=== PATIENT | female | born 1955 | race Caucasian/White ===

== ENCOUNTER 2022-05-04 10:06 | Outpatient (CLI) | payer BC, SELFPAY ==
--- OUTSIDE RECORDS SUMMARY | 2022-05-04 10:18 | XMS_ITS | Encounter Summary ---
:[address] [facility] Address [address] [place] [id number] Care Team Providers Name Role Phone Elsewhere, Pcp Primary Care Provider Unavailable Reason for Referral Outpatient (Routine) - Closed Specialty Diagnoses / Procedures Referred By Contact Refer red To Contact Diagnoses Hoarseness Rst Ent [facility] Procedures ENT Speech therapy [address] [place] [phone] Referral ID Status Reason Start Date Expiration Date Visits Requ ested Visits Authorized [id number] Closed 01/25/2022 01/25/2023 1 1 Reason for Visit Speech Pathology (Routine) - Closed Specialty Diagnoses / Procedures Referred By Contact Refer red To Contact Diagnoses Hoarseness Ashanti Hendricks M.D. [facility] Procedures NEWSPAPER PHOTOGRAPHER Voice evaluation [address] [place] [phone] Referral ID Status Reason Start Date Expiration Date Visits Requ ested Visits Authorized [id number] Closed 12/14/2021 12/14/2022 1 1 Encounter Details Date Type Department Care Team Description 01/25/2022 Comprehensive Visit Department of Shima Macias Otorhinolaryngology mary lou Del Real, Ph.D. [place], [place] [address] [facility] [address] [place] [phone] Social History Tobacco Use Types Packs/Day Years Used Date Smoking Tobacco: Never Smokeless Tobacco: Never Alcohol Use Standard Drinks/Week Comments Yes 0 (1 standard drink = 0.6 oz pure alcoho l) 2 to 3 drinks per month Alcohol Habits Answer Date Recorded How often do you have a drink containing Monthly or less 09/17/2021 alcohol? How many drinks containing alcohol do you have 1 or 2 09/17/2021 on a typical day when you are drinking? How often do you have six or more drinks on one Never 09/17/2021 occasion? Comment: 2 to 3 drinks per month 09/20/2021 Social Isolation Answer Date Recorded In a typical week, how many times do you Twice a week 09/17/2021 talk on the phone with family, friends, or neighbors? How often do you get together with friends Once a week 09/17/2021 or relatives? How often do you attend holiness or congregational More than 4 time s per year 09/17/2021 services? Do you belong to any clubs or organizations Yes 09/17/2021 such as holiness groups, unions, fraternal or athletic groups, or school groups? How often do you attend meetings of the More than 4 times pe r year 09/17/2021 clubs or organizations you belong to? Are you now , , , 09/17/2021 , never or living with a partner? Physical Activity Answer Date Recorded On average, how many days per week do you engage in moderate to 5 days 09/17/2021 strenuous exercise (like walking fast, running, jogging, dancing, swimming, biking, or other activities that cause a light or heavy sweat)? On average, how many minutes do you engage in exercise at th is 20 min 09/17/2021 level? Stress Answer Date Recorded Do you feel stress - tense, restless, nervous, or To some ex tent 09/17/2021 anxious, or unable to sleep at night because your mind is troubled all the time - these days? Intimate Partner Violence Answer Date Recorded Within the last year, have you been afraid of your partner o r No 09/17/2021 ex-partner? Within the last year, have you been humiliated or emotionall y No 09/17/2021 abused in other ways by your partner or ex-partner? Within the last year, have you been kicked, hit, slapped, or No 09/17/2021 otherwise physically hurt by your partner or ex-partner? Within the last year, have you been raped or forced to have any No 09/17/2021 kind of sexual activity by your partner or ex-partner? Food Insecurity Answer Date Recorded Within the past 12 months, you worried that your food would Never true 09/17/2021 run out before you got money to buy more. Within the past 12 months, the food you bought just didn't N ever true 09/17/2021 last and you didn't have money to get more. Transportation Needs Answer Date Recorded In the past 12 months, has lack of transportation kept you f rom No 09/17/2021 medical appointments or from getting medications? In the past 12 months, has lack of transportation kept you f rom No 09/17/2021 meetings, work, or getting things needed for daily living? Housing Stability Answer Date Recorded In the last 12 months, was there a time when you were not ab le No 09/17/2021 to pay the mortgage or rent on time? In the last 12 months, how many places have you lived? 1 09/17/2021 In the last 12 months, was there a time when you did not hav e a No 09/17/[address] or slept in a alf (including now)? Education Answer Date Recorded What is the highest level of school Bachelor's degree (e.g., BA, AB, 09/17/2021 you have completed or the highest BS) degree you have received? Sex Assigned at Date Recorded Female 05/11/2021 12:39 PM CDT documented as of this encounter Consult Notes Shima Macias, Ph.D. - 01/25/2022 1:30 PM CDT DATE OF VISIT: 01/25/22 Referring provider: Ashanti Hendricks M.D. REASON FOR VISIT: Voice Evacuation HISTORY OF PRESENT ILLNESS Colleen Tolentino is a 66 y.o. 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 She saw Dr. Hendricks earlier today and is seeing me for behavioral intervention. She is approximately 3 months post surgery. Her speaking voice is lower and she does have some hoarseness with speaking but if her singing voice that she is grieving the most. 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 PHYSICAL EXAMINATION I. Phonation: Phonatory quality during connected speech is rough hoarse +2 with strained +2. On palpation patient does have some narrowing but minimal tenderness in the thyrohyoid space. She is able tophonate from C3 (130 Hz) to G3 (195 Hz) which is significantly limited and lower than her pre surgical voice. II. Patient Self-Assessment: Please see flow sheets for answers to questionnaires III. Stimulability: She is able to do some half steps up to 207 Hz but not beyond that at this time. IMPRESSION, REPORT, PLAN Colleen Tolentino has a dysphonia consistent with bilateral superior laryngeal nerve injury. We had started her on using humming going from her highest half step to a little bit higher and nudging that trying to repeat that for couple of minutes 3-4 times per day. Will do a recheck in 3 months she agreed to let me know if things start to open up a little bit in terms of pitch. It is probably too soon to know if this injury is permanent and hopefully she will regain some function. DIAGNOSIS #1 Dysphonia, superior laryngeal nerve injury PATIENT EDUCATION Ready to learn, no apparent learning barriers identified; learning preferences include listening. Diagnosis and treatment plan explained; opportunity to ask questions given; patient expressed understanding of content. This note was partially constructed using M*Modal Fluency Direct speech recognition medical dictation system. All attempts have been made to review for accuracy; although, some nonsensical information may persist despite proofreading. documented in this encounter Plan of Treatment Not on filedocumented as of this encounter Visit Diagnoses Diagnosis Hoarseness documented in this encounter Care Teams Electrical Maintenance Technician Relationship Specialty Start Date End Date Elsewhere, Pcp PCP - General Internal Medicine 10/03/21 documented as of this encounter
--- OUTSIDE RECORDS SUMMARY | 2022-05-04 10:18 | XMS_ITS | Encounter Summary ---
:1955 Author Organization [facility] Address [address] [place] [address] Care Team Providers Name Role Phone Elsewhere, Pcp Primary Care Provider Unavailable Reason for Referral Outpatient (Routine) - Authorized Specialty Diagnoses / Procedures Referred By Contact Refer red To Contact Diagnoses Hoarseness Rst Ent [facility] Procedures ENT Speech therapy [address] [place] [phone] Referral ID Status Reason Start Date Expiration Date Visits V isits Requested Authorized [id number] Authorized 05/03/2022 05/03/2023 1 1 Reason for Visit Outpatient (Routine) - Closed Specialty Diagnoses / Procedures Referred By Contact Refer red To Contact Diagnoses Hoarseness Rst Ent [facility] Procedures ENT Speech therapy [address] [place] [phone] Referral ID Status Reason Start Date Expiration Date Visits Requ ested Visits Authorized [id number] Closed 01/25/2022 01/25/2023 1 1 Encounter Details Date Type Department Care Team Description 05/03/2022 Clinical Support Department of Shima Macias Otorhinolaryngology mary lou Del Real, Ph.D. [place], [place] [address] [facility] [address] [place] [phone] Social History Tobacco Use Types Packs/Day Years [...] or relatives? How often do you attend mandaen or taoist More than 4 time s per year 09/17/2021 services? Do you belong to any clubs or organizations Yes 09/17/2021 such as mandaen groups, unions, fraternal or athletic groups, or [...] place to sleep or slept in a [facility] (including now)? Education Answer Date Recorded What is the highest level of school Bachelor's degree (e.g., BA, AB, 09/17/2021 you have completed or the highest BS) degree you have received? Sex Assigned at Date Recorded Female 05/11/2021 12:39 PM CDT documented as of this encounter Consult Notes Shima Macias, Ph.D. - 05/03/2022 9:30 AM CDT DATE OF VISIT: 05/03/22 Referring provider: No ref. provider found SUBJECTIVE Colleen Yani Dejon Tolentino returns today for 1 session of skilled intervention. She is been able toget to Bb above middle C on a couple of occasions. She struggles with confidence with her voice and continues to be rough hoarse. The exercises are helpful in clearing up voice a bit. She did take a little bit of time off due to the frustration of the problem but is feeling better and more hopeful. OBJECTIVE Phonatory quality is initially rough hoarse 2/3. Did the exercises on half steps moving up the scalestarting it G below middle C. When we added head and neck anchoring we were able to help her vocalize up to a B natural and voice was more stable. This was very exciting. We also explored the range going downward to an Eb below middle C. Assessment Continued evidence of superior laryngeal nerve weakness following thyroidectomy. She is getting someimprovement and feeling a little more encouraged today. Plan Patient is going to do her exercises at home and I will plan to see her back in 6 months. PATIENT EDUCATION Ready to learn, no apparent learning barriers were identified; learning preferences include listening. Explained diagnosis and treatment plan; patient expressed understanding of the content. Voice recognition was used to transcribe this note, please forgive any accidental errors. documented in this encounter Plan of Treatment Not on filedocumented as of this encounter Visit Diagnoses Diagnosis Hoarseness documented in this encounter Care Teams Spool Maker Relationship Specialty Start Date End Date Elsewhere, Pcp PCP - General Internal Medicine 10/03/21 documented as of this encounter
--- OUTSIDE RECORDS SUMMARY | 2022-05-04 10:18 | XMS_ITS | Encounter Summary ---
:1955 Author Organization [facility] Address [address] [place] [address] Care Team Providers Name Role Phone Elsewhere, Pcp Primary Care Provider Unavailable Reason for Referral Speech Pathology (Routine) - Closed Specialty Diagnoses / Procedures Referred By Contact Refer red To Contact Diagnoses Hoarseness Ashanti Hendricks M.D. [facility] Procedures APPLIED COMPUTER SCIENCE PROFESSOR Voice evaluation [address] [place] [phone] Referral ID Status Reason Start Date Expiration Date Visits Requ ested Visits Authorized [id number] Closed 12/14/2021 12/14/2022 1 1 Encounter Details Date Type Department Care Team Description 12/14/2021 Clinical Department of Cassandra Smith Otorhinolaryngology in [place], [place] [address] [place] [phone] Social History Tobacco Use Types Packs/Day Years [...] or relatives? How often do you attend buddhist or gnosticist More than 4 time s per year 09/17/2021 services? Do you belong to any clubs or organizations Yes 09/17/2021 such as buddhist groups, unions, fraternal or athletic groups, or [...] place to sleep or slept in a retirement (including now)? Education Answer Date Recorded What is the highest level of school Bachelor's degree (e.g., BA, AB, 09/17/2021 you have completed or the highest BS) degree you have received? Sex Assigned at Date Recorded Female 05/11/2021 12:39 PM CDT documented as of this encounter Miscellaneous Notes Telephone Encounter - Cassandra Smith - 12/14/2021 1:20 PM CDT Good Afternoon, Patient has been scheduled accordingly. Thank you for your help! Mark Telephone Encounter - Ashanti Hendricks M.D. - 12/14/2021 12:12 PM CDT Thanks for reaching out and asking. I think it is fine for her to see me. She would also benefit from an APPLIED COMPUTER SCIENCE PROFESSOR appointment same day but after seeing me. I will place a referral. Thanks! Marcell Hendricks Telephone Encounter - Cassandra Smith - 12/14/2021 12:03 PM CDT Good Morning, Patient is scheduled with Dr. Hendricks for the following internal referral from EMS. Diagnosis: Hoarseness. Indication: Vocal cord (lesion, paralysis, surgical). Clinical Question: Rule out vocal cord paralysis/ post op Hoarseness. Can Patient stay scheduled with Dr. Hendricks or should they be scheduled with Medical ENT? Please Advise. Thank you! Mark documented in this encounter Plan of Treatment Not on filedocumented as of this encounter Visit Diagnoses Diagnosis Hoarseness - Primary documented in this encounter Care Teams Hide Grader Relationship Specialty Start Date End Date Elsewhere, Pcp PCP - General Internal Medicine 10/03/21 documented as of this encounter
--- OUTSIDE RECORDS SUMMARY | 2022-05-04 10:18 | XMS_ITS | Encounter Summary ---
:[address] [facility] Address [address] [place] [address] Care Team Providers Name Role Phone Elsewhere, Pcp Primary Care Provider Unavailable Encounter Details Date Type Department Care Team Description 05/04/2022 Clinical Communication Department of Shima Macias Otorhinolaryngology in M, Ph.D. [place], [place] [address] [facility] [address] [place] [phone] Social History Tobacco Use Types Packs/Day Years [...] or relatives? How often do you attend moravian or methodist More than 4 time s per year 09/17/2021 services? Do you belong to any clubs or organizations Yes 09/17/2021 such as moravian groups, unions, fraternal or athletic groups, or [...] place to sleep or slept in a detention (including now)? Education Answer Date Recorded What is the highest level of school Bachelor's degree (e.g., BA, AB, 09/17/2021 you have completed or the highest BS) degree you have received? Sex Assigned at Date Recorded Female 05/11/2021 12:39 PM CDT documented as of this encounter Miscellaneous Notes Telephone Encounter - Shima Macias, Ph.D. - 05/04/2022 9:47 AM CDT ----- Message from Ashanti Hendricks M.D. sent at 05/03/2022 4:08 PM CDT ----- I agree ----- Message ----- From: Shima Macias, Ph.D. Sent: 05/03/2022 11:55 AM CDT To: Ashanti Hendricks M.D. Please respond with agree SPEECH THERAPY CERTIFICATION By responding agree, I certify that the therapy being provided to Colleen Tolentino under my care is reasonable and necessary for the diagnosis or treatment of this patient. I reviewed and agree with the treatment plan as written for this patient by Shima Macias, Ph.D. [facility] Dated 05/03/22. 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 If the plan of care is not what was intended, please contact Shima Macias, Ph.D. at [phone] or by responding to this message. documented in this encounter Plan of Treatment Not on filedocumented as of this encounter Visit Diagnoses Not on filedocumented in this encounter Care Teams Hvac Specialist Relationship Specialty Start Date End Date Elsewhere, Pcp PCP - General Internal Medicine 10/03/21 documented as of this encounter
--- OUTSIDE RECORDS SUMMARY | 2022-05-04 10:18 | XMS_ITS | Encounter Summary ---
:1955 Author Organization [facility] Address [address] [place] [address] Care Team Providers Name Role Phone Elsewhere, Pcp Primary Care Provider Unavailable Encounter Details Date Type Department Care Team Description 01/20/2022 Clinical Communication Visit Review in [place], [place] [address] [place] [address] Social History Tobacco Use Types Packs/Day Years [...] or relatives? How often do you attend voodoo or baptism More than 4 time s per year 09/17/2021 services? Do you belong to any clubs or organizations Yes 09/17/2021 such as voodoo groups, unions, fraternal or athletic groups, or [...] place to sleep or slept in a custodial (including now)? Education Answer Date Recorded What is the highest level of school Bachelor's degree (e.g., BA, AB, 09/17/2021 you have completed or the highest BS) degree you have received? Sex Assigned at Date Recorded Female 05/11/2021 12:39 PM CDT documented as of this encounter Plan of Treatment Not on filedocumented as of this encounter Visit Diagnoses Not on filedocumented in this encounter Care Teams General Office Dispatcher Relationship Specialty Start Date End Date Elsewhere, Pcp PCP - General Internal Medicine 10/03/21 documented as of this encounter
--- OUTSIDE RECORDS SUMMARY | 2022-05-04 10:18 | XMS_ITS | Clinical Summary ---
:1955 Author Organization [facility] Address [address] [place] [address] Care Team Providers Name Role Phone Elsewhere, Pcp Primary Care Provider Unavailable Source Comments Patient records contain information from all sites at [facility]. For routine questions regarding patient records, call [phone] during business hours, M-F 8:00 AM - 5:00 PM Central Time. Record requests for emergency care only can be directed to [phone] at any time.[facility] Allergies Active Allergy Reactions Severity Noted Date Comments Cefuroxime Axetil Hives Low 06/27/2012 Medications Medication Sig Dispensed Refills Start Date End Date Status acetaminophen Take 2 tablets by 0 06/29/2012 Active (TYLENOL) 500 mg mouth every 6 tablet (six) hours as needed for pain. aspirin [address] Take 1 tablet by 0 06/27/2012 Active tablet mouth daily. ibuprofen Take 3 tablets by 0 06/29/2012 A ctive (for_ADVIL,MOTRIN) mouth every 6 200 mg tablet (six) hours as needed for pain. Misc Prescription Take 1 each by 0 06/27/2012 Active (Allergy mouth as needed Immunotherapy) (allergies). Homeopathic remedy drops omega-3 fatty acids Take 1,200 mg by 0 Active 1,250 mg capsule mouth daily. lisinopriL Take 2.5 mg by 0 01/26/2021 Act angela (PRINIVIL,ZESTRIL) mouth daily. 2.5 mg tablet RED YEAST RICE ORAL Take 1 tablet by 0 Active mouth 2 (two) times a day. multivitamin tablet Take 1 tablet by 0 Active mouth daily. calcium carbonate Chew 2 tablets 0 10/18/2021 Active (TUMS) 500 mg (200 (400 mg of calcium mg calcium) chewable total) 3 (three) tablet times a day. calcitRIOL Take 2 capsules 100 capsule 2 10/18/2021 Active (ROCALTROL) 0.25 mcg (0.5 mcg total) by capsule mouth daily. Additional Information Patient not taking. Reported on 01/20/2022 levothyroxine (SYNTHROID, Take 1 tablet (150 mcg 100 tablet 1 10/18/2021 Active LEVOTHROID) 150 mcg tablet total) by mouth every morning before breakfast. cholecalciferol, vitamin D3, Take 25 mcg by mouth 0 Active (cholecalciferol) 25 mcg daily. 4000 MG DAILY (1,000 Unit) tablet UNABLE TO FIND CALCIUM MAGNESIUM AND 0 Active ZINC SUPPLEMENT Active Problems Problem Noted Date Goiter Multinodular Nontoxic 08/22/2021 Cholecystitis 08/14/2017 Obesity Body Mass Index 30-39.9 Adult 08/14/2017 Arthroscopy Shoulder Status Post 10/18/2015 Dislocation Ankle Closed Initial 11/15/2013 Overview: Closed dislocation of ankle Injury Head Initial 08/08/2012 Hyperlipidemia 08/08/2012 Psoriasis 08/08/2012 Osteopenia 06/27/2012 Encounters Date Type Specialty Care Team Description 05/04/2022 Clinical Communication Otorhinolaryngology Delmi Macias, Ph.D. 05/03/2022 Clinical Support Otorhinolaryngology Shima Macias, Hoarseness Ph.D. from Last 3 Months Immunizations Name Administration Dates Next Due HepB, Unspecified 05/11/1992, 11/19/1991, 10/19/1991 MMR 10/13/1990 SARS-COV-2 (COVID-19) - VoteIt (12 years 07/27/2021, 021, 10/28/2020 or older) Td Preservative Free (TENIVAC, DECAVAC) 03/11/1999 Tdap 06/27/2012, 09/23/2008 Family History Medical History Relation Name Comments Atrial fibrillation Father Akshat Ashford Coronary artery disease Father Akshat Ashford Prostate cancer Father Akshat Bryanton 1990s Breast cancer Mother Odalys Ashford 2001 Dementia Mother Odalys Narvaezuson Head injury Mother Odalysjenni NarvaezDejon Hypertension Mother Odalysjenni NarvaezDejon Hypothyroidism Mother Odalysjenni NarvaezDejon Osteoporosis Mother Odalysjenni NarvaezDejon Stroke Mother Odalysjenni Bryanton Relation Name Status Comments Father Akshat Ashford Mother Odalys Ashford Social History Tobacco Use Types Packs/Day Years [...] or relatives? How often do you attend gnosticist or yazidi More than 4 time s per year 09/17/2021 services? Do you belong to any clubs or organizations Yes 09/17/2021 such as gnosticist groups, unions, fraternal or athletic groups, or [...] place to sleep or slept in a fdc (including now)? Education Answer Date Recorded What is the highest level of school Bachelor's degree (e.g., BA, AB, 09/17/2021 you have completed or the highest BS) degree you have received? Sex Assigned at Date Recorded Female 05/11/2021 12:39 PM CDT Last Filed Vital Signs Vital Sign Reading Time Taken Comments Blood Pressure 140/65 10/18/2021 8:25 AM ASSISTANT SUPERINTENDENT Pulse 69 10/18/2021 8:25 AM ASSISTANT SUPERINTENDENT Temperature 36.8 ??C (98.2 ??F) 10/18/2021 4:00 AM ASSISTANT SUPERINTENDENT Respiratory Rate 16 10/18/2021 4:33 AM ASSISTANT SUPERINTENDENT Oxygen Saturation 97% 10/18/2021 8:25 AM ASSISTANT SUPERINTENDENT Inhaled Oxygen Concentration - - Weight 99.2 kg (218 lb 11.1 oz) 10/17/2021 8:45 AM ASSISTANT SUPERINTENDENT Height 155 cm (5' 1.02) 10/17/2021 8:45 AM ASSISTANT SUPERINTENDENT Body Mass Index 41.29 10/17/2021 8:45 AM ASSISTANT SUPERINTENDENT Plan of Treatment Health Maintenance Due Date Last Done Comments Bone Density Scan (Osteoporosis 1955 Screen) CT Colonography 1955 Cologuard 1955 FIT 1955 Hepatitis C Screening 1955 Zoster Vaccines (1 of 2) 2004 Pneumococcal vaccine (65+ years) 2019 (1 - PCV) Fasting Glucose for Diabetes 08/14/2020 08/14/2017, 017, Screening 08/08/2012 Colonoscopy 01/26/2021 01/26/2011 Colorectal Cancer Screening 01/26/2021 Depression Screening (Annual 08/20/2021 PHQ-2) Creatinine Level 10/06/2021 10/06/2020, 08/14/2017, 08/14/2017, Additional history exists Lipid (Cholesterol) Screening 10/06/2021 10/06/2020, 2018, 08/08/2012 Potassium Level 10/06/2021 10/06/2020, 08/14/2017, 08/14/2017, Additional history exists Sodium Level 10/06/2021 10/06/2020, 08/14/2017, 08/14/2017, Additional history exists COVID-19 Vaccine (4 - Booster for 11/25/2021 07/27/2021, , Pfizer series) 10/28/2020 Influenza Vaccine (#1) 2022 Mammogram 06/24/2022 06/24/2021, 04/29/2020, 12/09/2018, Additional history exists DTaP,Tdap,and Td Vaccines (3 - Td 06/27/2022 06/27/2012, , or Tdap) 03/11/1999 Thyroid Stimulating Hormone (TSH) 09/21/2022 09/21/2021, , test for thyroid function 08/08/2012 Fall Risk Screen (Annual) Completed 10/17/2021 Insurance Payer Benefit Plan Subscriber ID Effective Dates Phone Address Type / Group [employer] [place] [id number] 2017-Gage [phone] [address] [address] PPO BLUE [facility] [address] [place] [phone] [place] (Home) [place] [phone] Advance Directives For more information, please contact: [phone] Latest Code Status on File Code Status Date Activated Date Inactivated Comments Full Code 10/17/2021 2:14 PM 10/18/2021 12:43 PM Full Code: Discussed Full Code 08/15/2017 1:23 AM 08/15/2017 9:26 PM Full Code: Not Discussed Due to: Not medically appropriate Full Code 08/14/2017 3:50 PM 08/14/2017 9:42 PM Full Code: Not Discussed Due to: Not medically appropriate Care Teams Beef Cattle Farmer Relationship Specialty Start Date End Date Elsewhere, Pcp PCP - General Internal Medicine 10/03/21
--- OUTSIDE RECORDS SUMMARY | 2022-05-04 10:18 | XMS_ITS | Encounter Summary ---
:1955 Author Organization [facility] Address [address] [place] [address] Care Team Providers Name Role Phone Elsewhere, Pcp Primary Care Provider Unavailable Encounter Details Date Type Department Care Team Description 01/25/2022 Ancillary Procedure Department of Otorhinolaryngology Social History Tobacco Use Types Packs/Day Years [...] or relatives? How often do you attend scientologist or faith More than 4 time s per year 09/17/2021 services? Do you belong to any clubs or organizations Yes 09/17/2021 such as scientologist groups, unions, fraternal or athletic groups, or [...] place to sleep or slept in a nursing home (including now)? Education Answer Date Recorded What is the highest level of school Bachelor's degree (e.g., BA, AB, 09/17/2021 you have completed or the highest BS) degree you have received? Sex Assigned at Date Recorded Female 05/11/2021 12:39 PM CDT documented as of this encounter Plan of Treatment Not on filedocumented as of this encounter Procedures Procedure Name Priority Date/Time Associated Comments Diagnosis OTORHINOLARYNGOLOGY IMAGE Routine 01/25/2022 11:32 Results for this EXAM AM CDT procedure are i n the results section. documented in this encounter Results Otorhinolaryngology Image Exam-Otorhinolaryngology Image Exam (01/25/2022 11:32 AM CDT) Specimen (Source) Anatomical Collection Method Collection Time Re ceived Time Location / / Volume Laterality 01/25/2022 3:09 PM CDT Narrative [facility] - 01/25/2022 11:32 AM CDT This order has been created and auto-finalized to support the import of images acquired without order. The clini reilly documentation to support these images can be found on the encounter luiz t produced images. Provider Not In System IMG NON RAD IMAGING PROCEDUR ES Performing Organization Address City/State/ZIP Code Phon e Number [facility] NA documented in this encounter Visit Diagnoses Not on filedocumented in this encounter Care Teams Cushion Former Relationship Specialty Start Date End Date Elsewhere, Pcp PCP - General Internal Medicine 10/03/21 documented as of this encounter
--- OUTSIDE RECORDS SUMMARY | 2022-05-04 10:18 | XMS_ITS | Encounter Summary ---
:1955 Author Organization [facility] Address [address] [place] [address] Care Team Providers Name Role Phone Elsewhere, Pcp Primary Care Provider Unavailable Reason for Visit Outpatient (Routine) - Closed Specialty Diagnoses / Procedures Referred By Contact Refer red To Contact Otorhinolaryngology Diagnoses Hoarseness Paige Nguyen M.D. [facility] [address] [place] [address] Referral ID Status Reason Start Date Expiration Date Visits Requ ested Visits Authorized [id number] Closed 12/14/2021 12/14/2022 1 1 Encounter Details Date Type Department Care Team Description 01/25/2022 Comprehensive Visit Department of Ashanti Hendricks Otorhinolaryngology mary lou Lomeli M.D. [place], [place] [address] [facility] [address] [place] [phone] Social History Tobacco Use Types Packs/Day Years [...] How often do you attend gnosticist or tenriism More than 4 time s per year [...] documented as of this encounter Consult Notes Momo Stokes M.D. - 01/25/2022 11:00 AM CDT [facility] The patient was referred for evaluation today by Dr. Paige Nguyen. Referring provider: Paige Nguyen M.D. CHIEF COMPLAINT Hoarseness HISTORY OF PRESENT ILLNESS Ms. Tolentino is a 66 y.o. year old woman presenting in consultation at the request of Paige Nguyen M.D. for evaluation of dysphonia. The patient underwent a total thyroidectomy with Dr. Paige Nguyen on 10/17/2021, and has experienced postoperative voice changes since this time. The procedure went well, with both recurrent laryngeal nerves intact at the end of the case. The patient reports thather speaking voice is within normal limits, and achieves adequate volume for communication. 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 She emphasizes that her tone must remain constant for her to maintain a ???normal?? voice. When she attempts to reach higher or lower pitch, her voice seems to ???skip and ???break.?? This has significantly impacted the patient's quality of life. On exam, the patient denies dysphagia, odynophagia, or pain with speaking. She has not experienced hoarseness, and denies a raspy or breathy quality to her voice. The patient does endorse vocal fatiguewithin 10-15 minutes of speaking. She describes her speaking voice as 100% of normal, and her singing voice as 10% of normal. The patient denies a cough or other sensory changes to the larynx. She is anever smoker, and drinks alcohol only on occasion. The patient is otherwise healthy and takes 2.5 mgof lisinopril as her only medication. Total score on the Voice Handicap Index-10 (VHI-10) is 15/40. RSI is 12. The following portions of the patient's history were reviewed and updated as appropriate: allergies,current medications, family history, medical history, social history, surgical history, and problem list. Encounter review of systems was reviewed and pertinent responses are noted in the history. Social History Tobacco Use ??? Smoking status: Never Smoker ??? Smokeless tobacco: Never Used Vaping Use ??? Vaping Use: never used Substance Use Topics ??? Alcohol use: Yes Alcohol/week: 0.0 standard drinks Comment: 2 to 3 drinks per month ??? Drug use: Never PHYSICAL EXAMINATION Gen: Resting comfortably in no acute distress. Alert and oriented. No stridor or increased respiratory effort. Conversational voice is strained, but with adequate volume for communication. There is no evidence of breathiness or raspiness. Maximal phonation time is greater than 20 seconds. ENT Ears: Externally normal in appearance, without scars, lesions, or masses. Nose: Externally normal in appearance. The mucosa is pink, the septum is midline, and the visible turbinates are normal on anterior rhinoscopy. Oral cavity: Mandibular rakel are absent Dentition is Normal. No concerning lesions Oropharynx: Clear and free of masses or lesions. Neck: Supple without lymphadenopathy or thyromegaly. Thyrohyoid space is firm, without tenderness orany noticeable masses/lesions. Neuro:Cranial nerves grossly intact. Skin: No incisions or scars in the neck. Flexible laryngoscopy: Verbal consent obtained and universal protocol followed. In order to evaluatethe chief complaint, a flexible laryngoscopy was performed as a separate identifiable procedure. Twopercent lidocaine with phenylephrine was instilled into the right and left nares. The flexible scopewas passed. The larynx was examined, specifically the supraglottis, true vocal folds, and subglottis. Vocal fold adduction and abduction were assessed. The true vocal folds, arytenoids, and interarytenoid spaces were closely visualized to confirm presence or absence of erythema, edema, or structural lesions. Videostroboscopy was also performed to evaluate the vibratory potential and closure patterns of the true vocal folds. Mucosal wave and amplitude were assessed for symmetry. Periodicity and glottic closure were evaluated. The scope was removed. Specific findings: The arytenoids are mobile bilaterally. The medial edge of the patient's bilateraltrue vocal folds are crisp. The true vocal folds are without lesions or masses bilaterally. There isfull glottic closure with phonation. There is mild supraglottic squeeze with phonation. The subglottis was briefly viewed, and appears to be patent with normal appearing mucosa. Stroboscopy confirms the presence of an adequate mucosal wave with good mucosal pliability. IMPRESSION 1. Hoarseness 66 y.o. year old woman presenting with dysphonia. PLAN It was a pleasure to meet Mrs. Tolentino this morning. That she has experienced dysphonia since surgery, the patient has normal abduction and adduction of her bilateral true vocal folds, confirming intact recurrent laryngeal nerve function. The range restriction that this patient is experiencing, may be multifactorial. It is possible that this is the result of the superior laryngeal nerve injury thatmay have occurred during surgery. With that said, she is still early on in her postoperative course,and may continue to recover. 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 There is no operative intervention available to address this patient's voice concerns, which he is a good candidate for speech therapy with one ofour voice specialist. She is scheduled to see Dr. Macias later this afternoon, and we will pass on our findings to this provider. The patient has been instructed to reach out to our services with any questions or concerns, and will plan to see her on an as-needed basis. PATIENT EDUCATION Ready to learn, no apparent learning barriers were identified; learning preferences include listening. Explained diagnosis and treatment plan; patient expressed understanding of the content. Associated attestation - Ashanti Hendricks M.D. - 01/26/2022 12:43 PM CDT I saw and evaluated the patient, participating in the gary portions of the service. I reviewed Dr. Stokes???s note. I agree with Dr. Stokes???s findings and plan. documented in this encounter Plan of Treatment Not on filedocumented as of this encounter Visit Diagnoses Diagnosis Hoarseness documented in this encounter Care Teams Foundry Patternmaker Relationship Specialty Start Date End Date Elsewhere, Pcp PCP - General Internal Medicine 10/03/21 documented as of this encounter
--- OUTSIDE RECORDS SUMMARY | 2022-05-04 10:19 | XMS_ITS | Encounter Summary ---
:1955 Author Organization [facility] Address [address] [place] [address] Care Team Providers Name Role Phone Elsewhere, Pcp Primary Care Provider Unavailable Encounter Details Date Type Department Care Team Description 10/14/2021 Lab Department of Paige Doll [facility], in [place], [address] [place] [id number] [place] [address] [phone] Social History Tobacco Use Types Packs/Day Years [...] or relatives? How often do you attend anabaptist or buddhism More than 4 time s per year 09/17/2021 services? Do you belong to any clubs or organizations Yes 09/17/2021 such as anabaptist groups, unions, fraternal or athletic groups, or [...] place to sleep or slept in a halfway (including now)? Education Answer Date Recorded What is the highest level of school Bachelor's degree (e.g., BA, AB, 09/17/2021 you have completed or the highest BS) degree you have received? Sex Assigned at Date Recorded Female 05/11/2021 12:39 PM CDT documented as of this encounter Plan of Treatment Not on filedocumented as of this encounter Procedures Procedure Name Priority Date/Time Associated Diagnosis Comme nts SARS CORONAVIRUS-2 Routine 10/14/2021 10:27 Goiter Multinodula r Results for this RNA, V AM SHELLACKER Nontoxic procedure are i n the results section. documented in this encounter Results SARS Coronavirus-2 RNA, V Asymptomatic (10/14/2021 10:27 AM SHELLACKER) [facility] gist Method Time Signature SARS-CoV-2 Swab, 10/14/2021 ECL[facility] Specimen Nasopharynx 10:10 PM Source SHELLACKER SARS CoV-2 Undetected Undetected 10/14/2021 ECL[facility] RNA, TMA 10:10 PM SHELLACKER Comment: SARS-CoV-2 RNA absent. This result does not rule out COVID-19 in the patient, as the sensitivity of the test depends o n the timing of the specimen collection and the quality of the specim en. Result should be correlated with patient's history and clinical presentat ion. ----ADDITIONAL INFORMATION---- This molecular amplification test was pe rformed using the Aptima SARS-CoV-2 assay ([employer] on the Wishs tem under emergency use authorization (EUA) by the U.S. Food and Drug Administ ration. Fact sheets for this EUA assay can be fo und at the following links: For Healthcare Providers: https://www.fd a.gov/media/592836/download For Patients: https://www.fda.gov/media/ 315085/download Specimen Anatomical Collection Method Collection Time Receive d Time (Source) Location / / Volume Laterality Varies 10/14/2021 10:27 10/14/2021 2:43 (Nasopharynx) AM SHELLACKER PM SHELLACKER Paige Nguyen M.D. LAB MICROBIOLOGY - GENERAL O RDERABLES Performing Organization Address City/State/ZIP Code Phon e Number [facility]- [address] [place] [address] [phone] [facility] [place] [place] [address] System in [address] documented in this encounter Visit Diagnoses Diagnosis Goiter Multinodular Nontoxic documented in this encounter Additional Health Concerns Infection Onset Date Last Indicated Resolved Time COVID19 Pending 10/14/2021 10/14/2021 10/14/2021 10:11 PM SHELLACKER documented as of this encounter Care Teams Manufacturing Advisor Relationship Specialty Start Date End Date Elsewhere, Pcp PCP - General Internal Medicine 10/03/21 documented as of this encounter
--- OUTSIDE RECORDS SUMMARY | 2022-05-04 10:19 | XMS_ITS | Encounter Summary ---
:1955 Author Organization [facility] Address [address] [place] [address] Care Team Providers Name Role Phone Elsewhere, Pcp Primary Care Provider Unavailable Reason for Visit Auth/Cert Specialty Diagnoses / Procedures Referred By Contact Refer red To Contact Diagnoses Goiter Multinodular Nontoxic Goiter Multinodular Nontoxic [E04.2] Procedures MI THYROIDECTOMY TOTAL/COMPLETE MI TEST INJ VASC FLOW FLAP/GRFT THYROIDECTOMY - TOTAL PINPOINT indocyanine green fluorescent parathyroid angiography Referral ID Status Reason Start Date Expiration Date Visits Requ ested Visits Authorized [id number] 1 1 Encounter Details Date Type Department Care Team Description 10/17/2021 Surgery [facility] DIANE MARCELO OR Paige Nguyen, THYROIDECTOMY, NEAR [address] [facility] [address]. [place], [place] [address] [facility] [address] [place], [place] [phone] [id number] (Wo rk) Social History Tobacco Use Types Packs/Day Years [...] or relatives? How often do you attend christian or catholic More than 4 time s per year 09/17/2021 services? Do you belong to any clubs or organizations Yes 09/17/2021 such as christian groups, unions, fraternal or athletic groups, or [...] place to sleep or slept in a care home (including now)? Education Answer Date Recorded What is the highest level of school Bachelor's degree (e.g., BA, AB, 09/17/2021 you have completed or the highest BS) degree you have received? Sex Assigned at Date Recorded Female 05/11/2021 12:39 PM CDT documented as of this encounter Last Filed Vital Signs Vital Sign Reading Time Taken Comments Blood Pressure 172/84 10/17/2021 1:30 PM DOLLY OPERATOR Pulse 75 10/17/2021 1:35 PM DOLLY OPERATOR Temperature 36.6 ??C (97.9 ??F) 10/17/2021 12:35 PM DOLLY OPERATOR Respiratory Rate 18 10/17/2021 1:35 PM DOLLY OPERATOR Oxygen Saturation 98% 10/17/2021 1:35 PM DOLLY OPERATOR Inhaled Oxygen Concentration - - Weight 99.2 kg (218 lb 11.1 oz) 10/17/2021 8:45 AM DOLLY OPERATOR Height 155 cm (5' 1.02) 10/17/2021 8:45 AM DOLLY OPERATOR Body Mass Index 41.29 10/17/2021 8:45 AM DOLLY OPERATOR documented in this encounter Discharge Summaries Torin Chavez M.D. - 10/18/2021 7:50 AM CST DISCHARGE SUMMARY BRIEF OVERVIEW Hospital: [facility] Discharge Provider: Paige Nguyen M.D. Primary Team: T GENERAL SURGERY - PATRICK Primary Care Providers: Elsewhere, Pcp (General) No address on file Primary Care Provider Phone Number: None Primary Care Provider Fax Number: None Other Providers: None Admission Date: 10/17/2021 Discharge Date: 10/18/2021 PRINCIPAL DIAGNOSIS Goiter Multinodular Nontoxic SECONDARY DIAGNOSES Principal Problem: Goiter Multinodular Nontoxic Resolved Problems: * No resolved hospital problems. * Surgery Information This Encounter Past Procedures (10/18/2020 to Today) Date Procedures Providers Location 10/17/2021 THYROIDECTOMY, NEAR TOTAL. Paige Nguyen M.D.Rogers, Richard T, M.D. RST [facility] OR DISCHARGE DISPOSITION Home or Self Care [1] ACTIVE ISSUES REQUIRING FOLLOW UP None OUTPATIENT FOLLOW UP For appointment details refer to your Patient Appointment Guide. TEST RESULTS PENDING AT DISCHARGE Pending Labs Order Current Status Surgical Pathology, Frozen Lab In process DETAILS OF HOSPITAL STAY REASON FOR ADMISSION Goiter Multinodular Nontoxic HOSPITAL COURSE Multinodular goiter status post near total thyroidectomy, 10/17/2021. The patient was admitted to [facility]. The patient was taken to the operating room where they underwent the above procedure. The patient tolerated the procedure well. Aftera brief stay in the postanesthesia care unit, the patient was transferred to the general surgical floor. Throughout the hospitalization, pain was well managed with IV and oral pain medications. At the time of discharge, the patient was tolerating a general diet, and pain was controlled on oral pain medication alone. FINAL PATHOLOGY Pending Chronic conditions were stable throughout the hospitalization. The patient's home medications were restarted as indicated. CONSULTS ORDERED DURING THIS ADMISSION None Pertinent Diagnostic Results: Pathology: Pending CONDITION AT DISCHARGE good Discharge instructions were provided to the patient and caregiver(s). Y OPERATOR documented in this encounter Discharge Instructions AttachmentsThe following attachments cannot be sent through Care Everywhere. Calcitriol (By mouth) (North Korean)Levothyroxine (By mouth) (North Korean)Antacid, Calcium and Magnesium (By mouth) ([place] Korean)documented in this encounter Medications at Time of Discharge Medication Sig Dispensed Refills Start Date End Date acetaminophen (TYLENOL) Take 2 tablets by 0 06/29 500 mg tablet mouth every 6 (six) hours as needed for pain. aspirin [address] tablet Take 1 tablet by 0 2011 mouth daily. ibuprofen Take 3 tablets by 0 06/29/2012 (for_ADVIL,MOTRIN) 200 mouth every 6 (six) mg tablet hours as needed for pain. lisinopriL Take 2.5 mg by mouth 0 01/26/2021 (PRINIVIL,ZESTRIL) 2.5 daily. mg tablet Misc Prescription Take 1 each by mouth 0 06/27/20 12 (Allergy Immunotherapy) as needed (allergies). Homeopathic remedy drops multivitamin tablet Take 1 tablet by 0 mouth daily. omega-3 fatty acids Take 1,200 mg by 0 1,250 mg capsule mouth daily. RED YEAST RICE ORAL Take 1 tablet by 0 mouth 2 (two) times a day. calcitRIOL (ROCALTROL) Take 2 capsules (0.5 100 capsule 2 0.25 mcg capsule mcg total) by mouth daily. calcium carbonate (TUMS) Chew 2 tablets (400 0 500 mg (200 mg calcium) mg of calcium total) chewable tablet 3 (three) times a day. levothyroxine Take 1 tablet (150 100 tablet 1 10/18/2021 (SYNTHROID, LEVOTHROID) mcg total) by mouth 150 mcg tablet every morning before breakfast. documented as of this encounter Progress Notes Paige Nguyen M.D. - 10/18/2021 10:33 AM CST Doing well. Neck incision clean dry and intact. No clinically significant hematoma. Calcium, Total, S Date Value Ref Range Status 10/18/2021 7.9 (L) 8.8 - 10.2 mg/dL Final Parathyroid Hormone (PTH), S Date Value Ref Range Status 10/17/2021 <6.0 (L) 15 - 65 pg/mL Final Assessment: Stable postoperative course Plan: Discharge home on calcium and Rocaltrol, along with levothyroxine. A PTH and calcium recommended at 2 weeks. A TSH is recommended at 6 weeks, 6 months and yearly. Torin Medina M.D. - 10/18/2021 7:39 AM CST No acute events. She was initially hypertensive but became normotensive after administration of her home lisinopril. Pain controlled. Her incision is clean, dry and intact. She does have some soft tissue swelling without clear evidence of hematoma. Inferior bruising. Her voice is normal. Assessment and plan Her postoperative PTH came back at less than 6. She has been started on Rocaltrol and calcium. We will initiate 150 mcg levothyroxine daily upon discharge. She will need repeat calcium and PTH in [address] Nguyen. Y OPERATOR Lora Garrett Pharm.D., R.Ph. - 10/17/2021 8:53 AM CST Images from the original note were not included. Admission Medication History Note Adherence issues: No concerns Medication list source: Patient Medication related information: none Prior to Admission Medications Med List Status: Pharmacy Complete Set By: Lora Garrett Pharm.D., R.Ph. at 10/17/2021 8:53 AM Taking? Last Dose Informant Start Date End Date LT acetaminophen (TYLENOL) 500 mg tablet Past Week Self 06/29/12 -- Take 2 tablets by mouth every 6 (six) hours as needed for pain. aspirin [address] tablet 10/16/2021 06/27/12 -- Take 1 tablet by mouth daily. bnbolsd-rvqnuxywu-objh tablet 10/16/2021 -- -- Take 3 tablets by mouth daily. Calcium 1000 mg/magnesium 500 mg/zinc 25 mg cholecalciferol (for_VITAMIN D3) 2,000 Unit capsule 10/16/2021 -- -- Take 2,000 Units by mouth daily. ibuprofen (for_ADVIL,MOTRIN) 200 mg tablet Past Week 06/29/12 -- Take 3 tablets by mouth every 6 (six) hours as needed for pain. lisinopriL (PRINIVIL,ZESTRIL) 2.5 mg tablet 10/16/2021 01/26/21 -- Take 2.5 mg by mouth daily. [facility] Prescription (Allergy Immunotherapy) 10/17/2021 06/27/12 -- Take 1 each by mouth as needed (allergies). Homeopathic remedy drops multivitamin (multivitamin) tablet 10/16/2021 -- -- Take 1 tablet by mouth daily. omega-3 fatty acids 1,250 mg capsule 10/16/2021 -- -- Take 1,200 mg by mouth daily. RED YEAST RICE ORAL 10/16/2021 -- -- Take 1 tablet by mouth 2 (two) times a day. Y OPERATOR documented in this encounter Nursing Notes Anabel Rosales R.N. - 10/18/2021 10:33 AM CST Patient stable at discharge. Education was reviewed with patient. Any further questions were answered. Pain was well controlled with oral pain medications. Patient discharged home with significant other. Patient needs addressed. Y OPERATOR Lora Rebolledo R.N. - 10/18/2021 5:12 AM CST Shift Goals: Clinical Goals for the Shift: rest overnight Identify possible barriers to meeting goals/advancing plan of care: none End of Shift Summary: Patient rested well overnight with minimal pain which was managed with currentregimen. Vitals remained stable with no acute events overnight. Y OPERATOR documented in this encounter OR Notes Op Note - Paige Nguyen M.D. - 10/17/2021 10:51 AM CST Pre-op Diagnosis Goiter Multinodular Nontoxic Post-op Diagnosis Goiter Multinodular Nontoxic A rn first assistant actively participated and was necessary for one or more of the following: opening,exposure and visualization during the case, maintaining hemostasis, wound closure resulting in its safe and expeditious completion. Findings As expected. Complications None Description of Procedure PROCEDURE The risks, benefits, complications, treatment options, and expected outcomes have been discussed with the patient. Following informed consent and proper patient identification, the patient was brought to the operating room. After the induction of general endotracheal anesthesia, the neck and chest were prepped and draped in a sterile fashion. A transverse collar skin incision was made just above the sternal notch. Skin, subcutaneous tissue, and platysma were divided, and flaps were developed in cephalad and caudad directions. The midline deep cervical fascia was incised, and the ipsilateral strap muscles were retracted laterally. The middle thyroid vein was divided and the lobe retracted toward the midline. Dissection in the tracheoesophageal groove allowed the visualization of the recurrent laryngeal nerve coursing toward the larynx. The inferior thyroid artery was not interrupted. The thyroid lobe was retracted caud ad and individual branches of the superior thyroid vessels divided flush with the thyroid capsule. The thyroid lobe was rolled medially and the false capsule of the thyroid incised posteriorly to maximize parathyroid preservation. With the recurrent nerve continually in view, the posterior attachmentsof the thyroid lobe including the ligament of Franklin were incised. Individual inferior thyroid veins were divided. With the recurrent nerve in view, final attachments between the lobe and isthmus and the anterior wall of the trachea were divided. The contralateral lobe was mobilized in a similar fashion. An technical assistant was necessary to help expose and dissect the recurrent laryngeal nerve. Hemostasis was ensured. The pre and post assessment of the bilateral vagus nerves confirmed the integrity of the bilateral recurrent laryngeal nerves on intraoperative nerve monitoring. The wound was irrigated. No drains were placed. The deep fascia/strap muscles were closed. The platysma was closed with absorbablesuture. The skin was closed with a running absorbable subcuticular suture. Blood loss was minimal. All counts were correct. The patient tolerated the operation without complication...Dictated by Dr. Patrick Nguyen M.D. Y OPERATOR Brief Op Note - Torin Chavez M.D. - 10/17/2021 10:51 AM CST Pre-op Diagnosis Goiter Multinodular Nontoxic Post-op Diagnosis Goiter Multinodular Nontoxic Findings Multinodular goiter. Near total thyroidectomy Complications None Darius Chavez M.D. Y OPERATOR documented in this encounter Miscellaneous Notes Hospital Course - Torin Chavez M.D. - 10/17/2021 1:49 PM CST Multinodular goiter status post near total thyroidectomy, 10/17/2021. The patient was admitted to [facility]. The patient was taken to the operating room where they underwent the above procedure. The patient tolerated the procedure well. Aftera brief stay in the postanesthesia care unit, the patient was transferred to the general surgical floor. Throughout the hospitalization, pain was well managed with IV and oral pain medications. At the time of discharge, the patient was tolerating a general diet, and pain was controlled on oral pain medication alone. FINAL PATHOLOGY Pending Chronic conditions were stable throughout the hospitalization. The patient's home medications were restarted as indicated. Y OPERATOR documented in this encounter Plan of Treatment Not on filedocumented as of this encounter Procedures Procedure Name Priority Date/Time Associated Diagnosis Comme nts CALCIUM, TOT, S/P Routine 10/18/2021 7:03 Results for this AM DOLLY OPERATOR procedure are i n the results section. PARATHYROID HORMONE Routine 10/17/2021 2:42 Resul ts for this (PTH), S PM DOLLY OPERATOR procedure are i n the results section. ADULT OXYGEN THERAPY Routine 10/17/2021 12:39 PM DOLLY OPERATOR SURGICAL PATHOLOGY, Routine 10/17/2021 11:23 Goiter Multinodul ar Results for this [facility] AM DOLLY OPERATOR Nontoxic procedure are i n the results section. THYROIDECTOMY - TOTAL 10/17/2021 10:04 Goiter Multinod ular AM DOLLY OPERATOR Nontoxic documented in this encounter Results (ABNORMAL) Calcium, Total (10/18/2021 7:03 AM DOLLY OPERATOR) P athologist Signature Calcium, 7.9 (L) 8.8 - 10.2 10/18/2021 DTL Total, S mg/dL 7:43 AM DOLLY OPERATOR Specimen Anatomical Collection Method Collection Time Receive d Time (Source) Location / / Volume Laterality Blood (Blood, 10/18/2021 7:03 AM 10/19/19 7:03 Venous) DOLLY OPERATOR AM DOLLY OPERATOR Torin Chavez M.D. LAB BLOOD ADD-ON Performing Organization Address City/State/ZIP Code Phon e Number [facility] - [address] [place], [place] [address] [place] [address] Laboratories[address] (ABNORMAL) Parathyroid Hormone (PTH) (10/17/2021 2:42 PM DOLLY OPERATOR) Patholo gist Method Time [facility] Parathyroid <6.0 (L) 15 - 65 10/17/2021 DT Hormone (PTH), S pg/mL 3:37 PM DOLLY OPERATOR Specimen Anatomical Collection Method Collection Time Receive d Time (Source) Location / / Volume Laterality Blood (Blood, 10/17/2021 2:42 PM 10/17/19 3:09 Venous) DOLLY OPERATOR PM DOLLY OPERATOR oTrin Chavez M.D. LAB BLOOD ADD-ON Performing Organization Address City/[facility] Phon e Number [facility] - [address] [place], [place] [address] [place] [address] [facility] Surgical Pathology, Frozen Lab (10/17/2021 11:23 AM DOLLY OPERATOR) Component Value Ref Test Analysis Performed Pathologis t Range Method Time At [facility] 10/20/2021 [facility] 4:20 PM DOLLY OPERATOR Report Anca Salazar M.D. 10/20/2021 [facility] electronically 4:20 PM signed by DOLLY OPERATOR I verify that I have examined all relevant slides/materials for the specimen(s) and rendered or confirmed the diagnosis. Gross Description A. ??Received fresh labeled left thyroid is an 18 gram 10/20/2021 [facility] partial thyroidectomy with 7.1 x 3.2 x 2.6 cm left lobe. 4:20 PM The lobe is received disrupted. ??There is a 1 x 0.6 x 0.4 DOLLY OPERATOR cm reyes-white area identified. ??The remainder of the thyroid lobe is uniformly nodular. ??Automation Software Engineer tissue submitted for permanent sections. ??Grossed by Parvez Salazar M.D. -Pathology Resident. B. ??Received fresh labeled right thyroid is a 40 gram partially disrupted partial thyroidectomy with a 7.1 x 4.9 x 3.5 cm right lobe, in aggregate. ??The thyroid parenchyma demonstrates multiple reyes-brown soft nodules, 0.5 to 5.1 cm. ??The largest nodule is detached and shows hemorrhagic and cystic spaces. ??Automation Software Engineer tissue submitted for permanent sections. ??Grossed by Derian Rodgers, PA([facility]). Block Summary A Left thyroid 10/20/2021 [facility] A1 Left thyroid 4:20 PM A2 Left thyroid access services representative section C ST B Right thyroid B1 Right superior B2 Right mid B3 Right inferior B4 Dominant detached nodule Interpretation FINAL DIAGNOSIS 10/20/2021 [facility] 4:20 PM A. ??Thyroid, left, left lobectomy: ??Hyperplastic nodules. DOLLY OPERATOR Mild chronic thyroiditis. B. ??Thyroid, right, right lobectomy: ??Hyperplastic in adenomatous nodules with degenerative features. ??Mild chronic thyroiditis. Congo red performed at [facility] on section from block B4 is negative. Specimen (Source) Anatomical Collection Method Collection Time Re ceived Time Location / / Volume Laterality Tissue (Thyroid) 10/17/2021 11:23 AM DOLLY OPERATOR Tissue (Thyroid) 10/17/2021 11:32 AM DOLLY OPERATOR Narrative This result has an attachment that is no t available. Paige Nguyen M.D. LAB SURG PATH ORDERABLES Performing Organization Address City/State/ZIP Code Phon e Number [facility] - [address] [place], [place] [address] [place] [address] [facility] [address] documented in this encounter Visit Diagnoses Diagnosis Goiter Multinodular Nontoxic - Primary Goiter Multinodular Nontoxic documented in this encounter Admitting Diagnoses Diagnosis Goiter Multinodular Nontoxic documented in this encounter Administered Medications Inactive Administered Medications - up to 3 most recent administrations Medication Order MAR Action Action Date Dose Rate Site acetaminophen tablet 1,000 mg Given 10/17/2021 9:50 AM DOLLY OPERATOR 1,000 mg (TYLENOL) 1,000 mg, oral, Once, On Sun10/17/21 at 1000, For 1 dose, Pre-Op, Development Coordinator, PreOp with sips acetaminophen tablet 1,000 mg (TYLENOL) Given 10/18/2021 9:23 AM DOLLY OPERATOR 1,000 mg 1,000 mg, oral, Every 6 hours, First dose (after last modification) on Sun10/17/21 at 2200, (not to exceed 4 grams in 24 hours) Given 10/18/2021 4:05 AM DOLLY OPERATOR 1,000 mg Given 10/17/2021 10:09 PM DOLLY OPERATOR 1,000 mg acetaminophen tablet 500 mg (TYLENOL) Given 10/17/2021 3:54 PM DOLLY OPERATOR 500 mg 500 mg, oral, Every 6 hours, First dose on Sun10/17/21 at 1600, (not to exceed 4 grams in 24 hours) calcitRIOL capsule 0.5 mcg (ROCALTROL) Given 10/18/2021 8:24 AM DOLLY OPERATOR 0.5 mcg 0.5 mcg, oral, Daily, First dose on Sun10/17/21 at 1730 Given 10/17/2021 6:02 PM DOLLY OPERATOR 0.5 mcg calcium carbonate chewable tablet Given 10/18/2021 8:2 4 AM DOLLY OPERATOR 600 mg of calcium 600 mg of calcium (TUMS E-X) 600 mg of calcium, oral, 3 times daily, First dose on Sun10/17/21 at 2100, Doses listed are in mg of elemental calcium. Take with food. 750 mg calcium carbonate contains 300 mg of elemental calcium. Given 10/17/2021 8:45 PM DOLLY OPERATOR 600 mg of calcium cellulose, oxidized 1 X 2 pad (SURGICE L) Given 10/17/2021 11:55 AM DOLLY OPERATOR 1 each As needed, Starting on Sun10/17/21 at 1154, Intra-Op Given 10/17/2021 11:54 AM DOLLY OPERATOR 1 each fentaNYL injection 25 mcg (SUBLIMAZE) Given 10/17/2021 12:51 PM DOLLY OPERATOR 25 mcg 25 mcg, intravenous, Every 2 min PRN, For pain 4 or greater (maximum 100 mcg). If max dose of Fentanyl is reached and if pain is greater than 4, discontinue Fentanyl: give Hydromorphone, Starting on Sun10/17/21 at 1239, PACU (only) Given 10/17/2021 12:48 PM DOLLY OPERATOR 25 mcg Given 10/17/2021 12:44 PM DOLLY OPERATOR 25 mcg HYDROmorphone (PF) injection 0.2 mg Given 10/17/2021 1:45 PM DOLLY OPERATOR 0.2 mg (DILAUDID) 0.2 mg, intravenous, Every 5 min PRN, moderate pain or score 4-6 of 10, severe pain or score 7-10 of 10, Starting on Sun10/17/21 at 1239, PACU (only), Up to maximum total dose of 2 mg Given 10/17/2021 1:40 PM DOLLY OPERATOR 0.2 mg labetalol injection 5 mg (NORMODYNE,AHMADI DATE) Given 10/17/2021 1:16 PM DOLLY OPERATOR 5 mg 5 mg, intravenous, Every 15 min PRN, high blood pressure, For SBP>160 mmHG. Hold for heart rate<60, Starting on Sun10/17/21 at 1239, For 2 doses, PACU (only), Follow institution's IV administration guidelines Given 10/17/2021 1:00 PM DOLLY OPERATOR 5 mg lactated ringers Continued from OR 10/17/2021 1:01 PM DOLLY OPERATOR 20 mL/hr 20 mL/hr 20 mL/hr, intravenous, Continuous, Starting on Sun10/17/21 at 1100, PACU & Post-Op lisinopriL tablet 2.5 mg (PRINIVIL,ZESTR IL) Given 10/18/2021 8:24 AM DOLLY OPERATOR 2.5 mg 2.5 mg, oral, Daily, First dose on Sun10/17/21 at 1430 Given 10/17/2021 2:54 PM DOLLY OPERATOR 2.5 mg NaCl 0.45 % infusion New Bag 10/17/2021 2:39 PM DOLLY OPERATOR 30 mL/hr 30 mL/hr 30 mL/hr, intravenous, Continuous, Starting on Sun10/17/21 at 1415, until PO intake is greater than 500 mL traMADoL tablet 100 mg (ULTRAM) 100 mg, oral, Every 6 hours PRN, severe pain or score 7-10 of 10, Starting on Sun10/17/21 at 1204 traMADoL tablet 50 mg (ULTRAM) 50 mg, oral, Every 6 hours PRN, moderate pain or score 4-6 of 10, Starting on Sun10/17/21 at 1204 documented in this encounter Active and Recently Administered Medications Times are shown in DOLLY OPERATOR. Scheduled Medication Order 10/16/2021 10/17/2021 10/18/2021 acetaminophen tablet 1,000 mg (TYLENOL) (COMPLETED) 0950 (Given - Provider: Paz Kohli R.N.) 1,000 mg, oral, Once, On Sun10/17/21 at 1000, For 1 dose, Pre-Op, Development Coordinator, PreOp with sips acetaminophen tablet 1,000 mg (TYLENOL) 2206 (Given - Provider: John Velez R.N.) 0405 (Given - Provider: Lora Rebolledo R.N.)0923 (Given - Provider: Anabel Rosales R.N.) 1,000 mg, oral, Every 6 hours, First dos e (after last modification) on Sun10/17/21 at 2200, (not to exceed 4 grams in 24 hours) acetaminophen tablet 500 mg (TYLENOL) (CANCELED) 1554 (Given - Provider: Anabel Rosales R.N.) 500 mg, oral, Every 6 hours, First dose on Sun10/17/21 at 1600, (not to exceed 4 grams in 24 hours) calcitRIOL capsule 0.5 mcg (ROCALTROL) 1 802 (Given - Provider: Anabel Rosales R.N.) 0824 (Given - Provider: Acacia Delgado) 0.5 mcg, oral, Daily, First dose on Sun10/17/21 at 1730 calcium carbonate chewable tablet 600 mg of calcium (TUMS E- X) 2044 (Given - Provider: John Velez R.N.) 0824 (Given - Provider: Acacia Delgado) 600 mg of calcium, oral, 3 times daily, First dose on Sun10/17/21 at 2100, Doses listed are in mg of elemental calcium. Take with food. 750 mg calcium carbonate contains 300 mg of elemental calcium. lisinopriL tablet 2.5 mg (PRINIVIL,ZESTRIL) 1454 (Given - Provider: Anabel Rosales R.N.) 0824 (Given - Provider: Acacia Delgado) 2.5 mg, oral, Daily, First dose on Sun10/17/21 at 1430 sennosides-docusate sodium 8.6-50 mg per tablet 2 tablet (SE NOKOT-S) 2045 (Not Given - Provider: John Velez R.N. - Reason: Patient/family refused) 2 tablet, oral, Daily at bedtime, First dose on Sun10/17/21 at 2100, hold for diarrhea Continuous Medication Order 10/16/2021 10/17/2021 10/18/2021 lactated ringers (CANCELED) 1301 (Contin ued from OR - Provider: Nikia Taylor R.N.)1431 (Stopped - Provider: Anabel Rosales R.N.) 20 mL/hr, intravenous, Continuous, Start ing on Sun10/17/21 at 1100, PACU & Post-Op NaCl 0.45 % infusion 1439 (New Bag - Pro vider: Anabel Rosales R.N.)1747 (Stopped - Provider: Anabel Rosales R.N.) 30 mL/hr, intravenous, Continuous, Start ing on Sun10/17/21 at 1415, until PO intake is greater than 500 mL PRN Medication Order 10/16/2021 10/17/2021 10/18/2021 cellulose, oxidized 1 X 2 pad (SURGICEL) (CANCELED) 1154 (Given - Provider: Paige Nguyen M.D. - Comment: Neck)1155 (Given - Provider: Paige Nguyen M.D. - Comment: Neck) As needed, Starting on Sun10/17/21 at 1154, Intra-Op fentaNYL injection 25 mcg (SUBLIMAZE) (CANCELED) 1240 (Given - Provider: Nikia Taylor R.N.)1244 (Given - Provider: Nikia Taylor R.N.)1248 (Given - Provider: Nikia Taylor R.N.)1251 (Given - Provider: Nikia Taylor R.N.) 25 mcg, intravenous, Every 2 min PRN, Fo r pain 4 or greater (maximum 100 mcg). If max dose of Fentanyl is reached and if pain is greater than 4, discontinue Fentanyl: give Hydromorphone, Starting on Sun10/17/21 at 1239, PACU (only) HYDROmorphone (PF) injection 0.2 mg (DILAUDID) (CANCELED) 1340 (Given - Provider: Nikia Taylor R.N.)1345 (Given - Provider: Nikia Taylor R.N.) 0.2 mg, intravenous, Every 5 min PRN, mo derate pain or score 4-6 of 10, severe pain or score 7-10 of 10, Starting on Sun10/17/21 at 1239, PACU (only), Up to maximum total dose of 2 mg labetalol injection 5 mg (NORMODYNE,TRANDATE) (COMPLETED) 1300 (Given - Provider: Nikia Taylor RNaomiNNaomi)1316 (Given - Provider: Nikia Taylor R.N.) 5 mg, intravenous, Every 15 min PRN, hig h blood pressure, For SBP>160 mmHG. Hold for heart rate<60, Starting on Sun10/17/21 at 1239, For 2 doses, PACU (only), Follow institution's IV administration guidelines naloxone injection 0.2 mg (NARCAN) 0.2 mg, intravenous, As needed, respirat ory depression, Starting on Sun10/17/21 at 1413, For RASS Score -4 or less, respiratory rate of less than 8 breaths/min. Notify provider/service and rapid response team (if available at institution). ondansetron (PF) injection 4 mg (ZOFRAN) 4 mg, intravenous, Every 6 hours PRN, na usea, vomiting, Starting on Sun10/17/21 at 1413, For 48 hours, Reassess for nausea or vomiting after at least 10 minutes. If nausea or vomiting persists administe r next ordered antiemetic medications (o rder for antiemetic medication administration ondansetron then droperidol then promethazine). promethazine injection 6.25 mg (PHENERGAN) 6.25 mg, intravenous, Every 6 hours PRN, nausea, vomiting, Starting on Sun10/17/21 at 1413, For 48 hours, RASS must be -2 or higher to administer. Reassess for nausea/vomiting after at least 10 minutes. If nausea or vomiting persists administ er next ordered antiemetic medications (order for antiemetic medication administration ondansetron then droperidol then promethazine). traMADoL tablet 100 mg (ULTRAM)(Linked Group 1) 100 mg, oral, Every 6 hours PRN, severe pain or score 7-10 of 10, Starting on Sun10/17/21 at 1204 traMADoL tablet 50 mg (ULTRAM)(Linked Group 1) 50 mg, oral, Every 6 hours PRN, moderate pain or score 4-6 of 10, Starting on Sun10/17/21 at 1204 Linked Groups Order Group 1: traMADoL tablet 50 mg (ULTRAM)Jump to med 50 mg, oral, Every 6 hours PRN, moderate pain or score 4-6 of 10, Starting on Sun10/17/21 at 1204 Or traMADoL tablet 100 mg (ULTRAM)Jump to med 100 mg, oral, Every 6 hours PRN, severe pain or score 7-10 of 10, Starting on Sun10/17/21 at 1204 documented in this encounter Care Teams Technologies Division Chair Relationship Specialty Start Date End Date Elsewhere, Pcp PCP - General Internal Medicine 10/03/21 documented as of this encounter
--- OUTSIDE RECORDS SUMMARY | 2022-05-04 10:19 | XMS_ITS | Encounter Summary ---
:1955 Author Organization [facility] Address [address] [place] [address] Care Team Providers Name Role Phone Unavailable Primary Care Provider Unavailable Reason for Visit Appointment Request (Routine) - Closed Specialty Diagnoses / Procedures Referred By Contact Refer red To Contact Family Medicine Referral ID Status Reason Start Date Expiration Date Visits Requ ested Visits Authorized [id number] Closed 07/08/2021 07/08/2022 1 1 Encounter Details Date Type Department Care Team Description 07/27/2021 Immunization Department of [facility] Shen Bowman, Medicine, [place] M.D. Professional Building, in [address] [place] [id number] [address] [place] [address] [phone] Social History Tobacco Use Types Packs/Day Years Used Date Smoking Tobacco: Never Smokeless Tobacco: Never Alcohol Use Standard Drinks/Week Comments No 0 (1 standard drink = 0.6 oz pure alcoho l) Holidays Alcohol Habits Answer Date Recorded How often do you have a drink containing alcohol? Monthly or less 09/17/2021 How many drinks containing alcohol do you have on a 1 or 2 09/17/2021 typical day when you are drinking? How often do you have six or more drinks on one Never 09/17/2021 occasion? Comment: Holidays 08/14/2017 Social Isolation Answer Date Recorded In a typical week, how many times do you Twice a week 09/17/2021 talk on the phone with family, friends, or neighbors? How often do you get together with friends Once a week 09/17/2021 or relatives? How often do you attend cheondoism or denominational More than 4 time s per year 09/17/2021 services? Do you belong to any clubs or organizations Yes 09/17/2021 such as cheondoism groups, unions, fraternal or athletic groups, or [...] or slept in a alf (including now)? Sex Assigned at Date Recorded Female 05/11/2021 12:39 PM CDT documented as of this encounter Plan of Treatment Not on filedocumented as of this encounter Visit Diagnoses Not on filedocumented in this encounter
--- OUTSIDE RECORDS SUMMARY | 2022-05-04 10:19 | XMS_ITS | Encounter Summary ---
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] Procedures PA THYROIDECTOMY TOTAL/COMPLETE PA TEST INJ VASC FLOW FLAP/GRFT THYROIDECTOMY - TOTAL PINPOINT indocyanine green fluorescent parathyroid angiography Referral ID Status Reason Start Date Expiration Date Visits Requ ested Visits Authorized [id number] 1 1 Encounter Details Date Type Department Care Team Description 10/17/2021 Anesthesia Event RST ROLEE MARCELO OR Lion Singh, [address] [facility] Jose Alberto, J.DNaomi [place], [place] [address] [facility] [address] [place], [place] [phone] (Wo rk) Anesthesia Record Procedure Summary Procedure Name Responsible Anesthesia Start Anesthesia Stop Time Anesthesiologist Time THYROIDECTOMY, NEAR Lion Singh, 10/17/21 1019 10/17 1235 NAVA. Jose Alberto, JSolitario Events Date Time Event Comment 10/17/2021 1000 1019 An Start Machine/Equipmen t Checked Infection Precautions Foll owed Procedure/Site Verified NPO Sta tus Verified Supine Standard ASA Mon itors Applied 1028 An Induction 1030 An Intubation 1033 Turnover to Proceduralist 1051 Proc Start 1218 Proc Fin 1221 Turnover to ANE Staff 1225 Airway Removal Criteria Met 1227 Extubation/Airway Removed 1229 an stop data 1235 An End I completed my h andoff to the receiving staff during [facility] 1. Identified the patient 2. Ident ified the responsible provider 3. Revi ewed the pertinent medical history 4. Discussed the surgical course 5. Review ed intra-op anesthesia management and i ssues during anesthesia 6. Set expectati ons for post-procedure period 7. Allowe d opportunity for questions and ac knowledgement of understanding. Name Total fentanyl injection 50 mcg/mL 200 mcg lidocaine 2% (mg) injection 100 mg propofol 10 mg/mL 190 mg propofol 10 mg/mL infusion 1,545.04 mg succinylcholine 20 mg/mL injection 100 mg phenylephrine 100 mcg/mL injection 100 mcg ondansetron 4 mg/2 mL injection 4 mg remifentaniL 20 mcg/mL in NaCl 0.9% 100 mL infusion (U LTIVA) 2 mg dexamethasone 4 mg/mL injection 4 mg Lactated Ringers Free Drip 600 mL Agents No agents on file. Blood No blood administrations on file. Lines, Drains, and Airways Type Details Placement Removal Closed/Suction Drain 08/14/17; 2025; 1; Right; 08/14/172025 by RUQ; Bulb; 10 mm; 1 AnhornYahaira S, R.N. Wound 10/17/21; 1053; Incision; 10/17/21 1053 by Neck; Mid Meek Jackson, R.N. Peripheral IV Placement Date: 10/17/21; 10/17/21 0907 by 10/18 1000 by Placement Time: 0907; Lam Aguila Sa rah E, Catheter Size: 20 G; R.N. Orientation: Anterior, Left, Lower; Location: Forearm; Site Prep: Chlorhexidine (Preferred); Insertion Attempts: 1; Removal Date: 10/18/21; Removal Time: 1000; Removal Reason: Patient discharged ETT Placement Date: 10/17/21; 10/17/21 1030 by 10/17 1227 by Placement Time: 1030 Andrew Rivero Mele, [place] J, (created via procedure R.N., CCRN R.N., CCR N documentation); Mask Ventilation: Oral/Nasal airway needed; Type: Monitored ETT; Single Lumen Tube Size: 7 mm; Cuffed: Yes; Location: Oral; Grade View: Grade 1; Insertion Attempts: 1; Placement Verification: Bilateral breath sounds, Positive ETCO2, Symmetrical chest wall movement; Removal Date: 10/17/21; Removal Time: 1227 documented in this encounter Social History Tobacco Use Types Packs/Day Years [...] or relatives? How often do you attend pentecostalism or islam More than 4 time s per year 09/17/2021 services? Do you belong to any clubs or organizations Yes 09/17/2021 such as pentecostalism groups, unions, fraternal or athletic groups, or [...] place to sleep or slept in a usp (including now)? Education Answer Date Recorded What is the highest level of school Bachelor's degree (e.g., BA, AB, 09/17/2021 you have completed or the highest BS) degree you have received? Sex Assigned at Date Recorded Female 05/11/2021 12:39 PM CDT documented as of this encounter OR Notes Anesthesia Postprocedure Evaluation - Lion Singh M.D., J.D. - 10/17/2021 1:35 PM CST Patient: Colleen Ashford Jeremiahmonica Procedure Summary Date: 10/17/21 Room / Location: [address] / [facility] in [place], [place] Anesthesia Start: 1019 Anesthesia Stop: Procedure: THYROIDECTOMY, NEAR TOTAL. 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 Responsible Provider: Lion Singh M.D., Nilam Anesthesia Type: general ASA Status: 2 Anesthesia Type: general Last vitals Vitals Value Taken Time BP 172/84 10/17/21 1330 Temp 36.6 ??C 10/17/21 1235 Pulse 75 10/17/21 1334 Resp 18 10/17/21 1334 SpO2 98 % 10/17/21 1334 Vitals shown include unvalidated device data. Please reference Vitals flowsheet for most recent vital signs. Anesthesia Post Evaluation Cardiovascular status: hemodynamics (HR & BP) acceptable Respiratory status: patent airway with spontaneous effort Temperature: normothermic Oxygen requirements: room air Level of consciousness: awake Pain score: pain adequately controlled and/or at baseline Post Op nausea/vomiting: none Hydration status: euvolemic AL ASSOCIATE Anesthesia Procedure Notes - Andrew Rivero R.N., ROVERTON - 10/17/2021 10:41 AM CSTAssociated Order(s): Airway Airway Date/Time: 10/17/2021 10:30 AM Performed by: Andrew Rivero R.N., RVOERTON Authorized by: Lion Singh M.D., Nilam Patient location during procedure: OR / Procedure Area PROCEDURE DETAILS: Mask difficulty assessment: oral/nasal airway needed Final airway type: video laryngoscope Laryngeal Manipulation: no Final best view of glottic structures - Cormack/Lehane Score: grade 1 ETT location: oral VL device: glide scope [place] scope blade size: 3 Adult tube size: 7 Adult ETT distance at teeth/gum: 21 Oral tube type: monitored ETT Cuffed: yes Number of attempt to successful placement: 1 Airway confirmation: bilateral breath sounds, positive ETCO2 and bilateral chest rise Other previous techniques attempted: none PRE PROCEDURE DETAILS: Pre evaluation for airway management: procedure Urgency: elective Preop assessment of probable difficulty: questionable / suspicious difficult airway Preoxygenation: bag valve mask SEDATION / ANESTHESIA Anesthesia method: anesthesia POST PROCEDURE DETAILS: Procedure outcome: successful Airway event: no complications ATTESTATION STATEMENT AL ASSOCIATE Anesthesia Preprocedure Evaluation - Lion Singh M.D., Nilam - 10/17/2021 10:00 AM CST Preprocedure Anesthesia & H&P Assessment Procedure Summary Date/Time: 10/17/21 1049 Procedures: THYROIDECTOMY, TOTAL. (N/A ) PINPOINT indocyanine green fluorescent parathyroid angiography. 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 Location: [address] / [facility] in [place], [place] Providers: Paige Nguyen M.D. Pertinent components of the patient's history including current problem list, medical history, surgical history, family history, social history, medications and allergies were reviewed. Present illnessand pre-op diagnosis were confirmed. The planned surgery / procedure was verified with the patient /legal guardian. The patient's general health condition remains unchanged RELEVANT COMORBID CONDITIONS ENDO (+) Goiter Multinodular Nontoxic GENETICS (+) Hyperlipidemia Other (+) Dislocation Ankle Closed Initial (+) Obesity Body Mass Index 30-39.9 Adult OBJECTIVE PHYSICAL EXAMINATION Airway (HEENT) Mallampati: III TM Distance: >3 FB Neck ROM: Full Mouth Opening: >3 cm Upper Lip Bite Test Class: I Cardiovascular Rhythm: Regular Rate: Normal Cardiovascular Assessment: cardiovascular normal Functional Capacity: >4 METS Pulmonary Pulmonary Assessment: Clear General / Constitutional Constitutional Assessment: Obese General State of Health:: healthy appearing and calm ASSESSMENT / PLAN ANESTHESIA PLAN ASA: 2 Anesthesia Plan: general Patient seen and allergies reviewed, anesthesia plan and risks discussed directly with patient /legal guardian or through an plumbers and top helpers. Risks/Benefits/Alternatives of Blood transfusion discussed with patient / legal guardian, including an opportunity to ask questions and/or decline some or all transfusion therapies. The patient / legalguardian consented to the use of all blood products, as deemed medically necessary Approval to Proceed: approved for anesthesia AL ASSOCIATE documented in this encounter Plan of Treatment Not on filedocumented as of this encounter Procedures Procedure Name Priority Date/Time Associated Comments Diagnosis LDA ANE ENDOTRACHEAL Routine 10/17/2021 10:30 Res ults for this AIRWAY AM FLORAL ASSOCIATE procedure are i n the results section. documented in this encounter Results LDA ANE ENDOTRACHEAL AIRWAY (10/17/2021 10:30 AM FLORAL ASSOCIATE) Narrative Andrew Rivero R.N., CCRN - 10:30 AM FLORAL ASSOCIATE Andrew Rivero R.N., BEST ? 10/17/2021 10:41 AM Airway Date/Time: 10/17/2021 10:30 AM Performed by: Andrew Rivero R.N., CC RN Authorized by: Lion Singh M. D., Nilam Patient location during procedure: OR / Procedure Area PROCEDURE DETAILS: Mask difficulty assessment: oral/nasal a irway needed Final airway type: video laryngoscope Laryngeal Manipulation: no ?? Final best view of glottic structures - Cormack/Lehane Score: grade 1 ETT location: oral VL device: glide scope [place] scope blade size: 3 Adult tube size: 7 Adult ETT distance at teeth/gum: 21 Oral tube type: monitored ETT Cuffed: yes Number of attempt to successful placemen t: 1 Airway confirmation: bilateral breath so unds, positive ETCO2 and bilateral chest rise Other previous techniques attempted: non e PRE PROCEDURE DETAILS: Pre evaluation for airway management: pr ocedure Urgency: elective Preop assessment of probable difficulty: questionable / suspicious difficult airway Preoxygenation: bag valve mask SEDATION / ANESTHESIA Anesthesia method: anesthesia POST PROCEDURE DETAILS: ? Procedure outcome: successful ?? Airway event: no complications ATTESTATION STATEMENT Lion Singh M.D., J.D. ANESTHESIA ORDERABLES documented in this encounter Visit Diagnoses Not on filedocumented in this encounter Administered Medications Inactive Administered Medications - up to 3 most recent administrations Medication Order MAR Action Action Date Dose Rate Site dexAMETHasone injection (DECADRON) Given 10/17/2021 10:43 AM FLORAL ASSOCIATE 4 mg intravenous, As needed, Starting on Sun10/17/21 at 1043, Anesthesia Intra-op fentaNYL injection (SUBLIMAZE) Given 10/17/2021 11:55 AM FLORAL ASSOCIATE 25 mcg intravenous, As needed, Starting on Sun10/17/21 at 1026, Anesthesia Intra-op Given 10/17/2021 11:32 AM FLORAL ASSOCIATE 25 mcg Given 10/17/2021 10:44 AM FLORAL ASSOCIATE 50 mcg lactated ringers New Bag 10/17/2021 10:23 AM FLORAL ASSOCIATE intravenous, Continuous Infusion: Per Instructions PRN, Starting on Sun10/17/21 at 1023, Anesthesia Intra-op lidocaine (PF) (cardiac) injection Given 10/17/2021 12:07 PM FLORAL ASSOCIATE 40 mg intravenous, As needed, Starting on Sun10/17/21 at 1028, Anesthesia Intra-op Given 10/17/2021 10:28 AM FLORAL ASSOCIATE 60 mg ondansetron (PF) injection (ZOFRAN) Given 10/17/2021 11:57 AM FLORAL ASSOCIATE 4 mg intravenous, As needed, Starting on Sun10/17/21 at 1157, Anesthesia Intra-op phenylephrine injection Given 10/17/2021 10:43 AM FLORAL ASSOCIATE 100 mcg intravenous, As needed, Starting on Sun10/17/21 at 1043, Anesthesia Intra-op propofol 10 mg/mL infusion Rate/Dose 10/17/2021 75 mcg/kg/min 44.64 (DIPRIVAN) Change 12:14 PM FLORAL ASSOCIATE mL/hr intravenous, Continuous Infusion: Per Instructions PRN, Starting on Sun10/17/21 at 1029, Anesthesia Intra-op Rate/Dose Change 10/17/2021 12:12 PM FLORAL ASSOCIATE 100 mcg/kg/min 59.52 mL/hr Rate/Dose Change 10/17/2021 12:08 PM FLORAL ASSOCIATE 125 mcg/kg/min 74.4 mL/hr propofoL injection (DIPRIVAN) Given 10/17/2021 10:58 AM FLORAL ASSOCIATE 20 mg intravenous, As needed, Starting on Sun10/17/21 at 1028, Anesthesia Intra-op Given 10/17/2021 10:49 AM FLORAL ASSOCIATE 20 mg Given 10/17/2021 10:39 AM FLORAL ASSOCIATE 20 mg remifentaniL 20 mcg/mL in NaCl New Bag 10/17/2021 10:29 0.2 mc g/kg/min 59.52 mL/hr 0.9% 100 mL infusion (ULTIVA) AM FLORAL ASSOCIATE intravenous, Continuous Infusion: Per Instructions PRN, Starting on Sun10/17/21 at 1029, Anesthesia Intra-op succinylcholine (PF) injection (ANECTINE ) Given 10/17/2021 10:28 AM FLORAL ASSOCIATE 100 mg intravenous, As needed, Starting on Sun10/17/21 at 1028, Anesthesia Intra-op documented in this encounter Care Teams Relations Manager Relationship Specialty Start Date End Date Elsewhere, Pcp PCP - General Internal Medicine 10/03/21 documented as of this encounter
--- OUTSIDE RECORDS SUMMARY | 2022-05-04 10:19 | XMS_ITS | Encounter Summary ---
:1955 Author Organization [facility] Address [address] [place] [address] Care Team Providers Name Role Phone Elsewhere, Pcp Primary Care Provider Unavailable Reason for Visit Reason Comments Pre-visit Intake Encounter Details Date Type Department Care Team Description 10/03/2021 Clinical Communication Visit Review in Pr e-visit Intake [address] [address] Social History Tobacco Use Types Packs/Day [...] or relatives? How often do you attend islam or scientology More than 4 time s per year 09/17/2021 services? Do you belong to any clubs or organizations Yes 09/17/2021 such as islam groups, unions, fraternal or athletic groups, or [...] on filedocumented in this encounter Care Teams Ep Technologist Relationship Specialty Start Date End Date Elsewhere, Pcp PCP - General Internal Medicine 10/03/21 documented as of this encounter
--- OUTSIDE RECORDS SUMMARY | 2022-05-04 10:19 | XMS_ITS | Encounter Summary ---
:1955 Author Organization [facility] Address [address] [place] [address] Care Team Providers Name Role Phone Elsewhere, Pcp Primary Care Provider Unavailable Reason for Visit Outpatient (Routine) - Closed Specialty Diagnoses / Procedures Referred By Contact Refer red To Contact General Surgery Diagnoses Goiter Multinodular Nontoxic Estrella Sevilla M.D. [facility] [address] [place] [phone] Referral ID Status Reason Start Date Expiration Date Visits Requ ested Visits Authorized [id number] Closed 09/21/2021 09/21/2022 1 1 Encounter Details Date Type Department Care Team Description 10/04/2021 Comprehensive Visit Division of Victoriano Nguyen M.D. [address] [place] [phone] Goiter Multinodular Endocrine and Zelda Dang M.D. [address] [place] [phone] Nontoxic Metabolic Surgery in [place], [place] [address] [place] [phone] Social History Tobacco Use Types Packs/Day Years [...] or relatives? How often do you attend pentecostal or synagogue More than 4 time s per year 09/17/2021 services? Do you belong to any clubs or organizations Yes 09/17/2021 such as pentecostal groups, unions, fraternal or athletic groups, or [...] place to sleep or slept in a long term (including now)? Education Answer Date Recorded What is the highest level of school Bachelor's degree (e.g., BA, AB, 09/17/2021 you have completed or the highest BS) degree you have received? Sex Assigned at Date Recorded Female 05/11/2021 12:39 PM CDT documented as of this encounter Consult Notes Paige Nguyen M.D. - 10/04/2021 2:15 PM CST SUBJECTIVE REASON FOR CONSULT Colleen Lomeli Dejon Tolentino is a 66 y.o. female who presents for evaluation of symptomatic multinodular goiter. She was referred by Estrella Sevilla M.D.. HISTORY OF PRESENT ILLNESS Ms. Tolentino was referred for surgical consultation regarding multinodular goiter. The patient's relevant symptoms include compressive symptoms and dysphonia. She denies history of previous radiation exposure. Relevant family history includes nothing of significance. The patient denies a history of pr evious neck surgery. Vocal fold evaluation was normal. REVIEW OF SYSTEMS Pertinent items are noted in HPI OBJECTIVE PHYSICAL EXAM General appearance: alert, oriented, and no acute distress. Diagnostics TSH, Sensitive, S Date Value Ref Range Status 09/21/2021 1.7 0.3 - 4.2 mIU/L Final Calcium, Total, S Date Value Ref Range Status 09/21/2021 9.0 8.8 - 10.2 mg/dL Final Cervical ultrasound: Multiple low suspicion thyroid nodules bilaterally. The largest on the right is3.4 cm and on the left is 3.0 cm. FNA: benign ASSESSMENT / PLAN We recommend near-total thyroidectomy intraoperative neuromonitoring. Risk, benefits and alternatives were discussed with the patient. Risks discussed included, but not limited to recurrent laryngeal nerve injury, hypoparathyroidism, bleeding, infection, failure to cure,and the potential need for thyroid hormone replacement. Discussed the risks, benefits, alternatives, advance directives, and the necessity of other members of the healthcare team participating in the procedure. All questions answered and consent given. Surgery has been scheduled for October 17. PATIENT EDUCATION Appears ready to understand and learn from our discussion. No apparent learning barriers were identified from our verbal interactions. Explained diagnosis and treatment plan; patient informed of possible overlapping operations; patient appears to understand the content of our discussion. Today, I personally spent 15 minutes with the patient, of which greater than 50% of the time was spent in patient education, counseling, and coordination of care as described above. HANGER documented in this encounter Plan of Treatment Not on filedocumented as of this encounter Visit Diagnoses Diagnosis Goiter Multinodular Nontoxic documented in this encounter Care Teams Rn Iv Therapy Relationship Specialty Start Date End Date Elsewhere, Pcp PCP - General Internal Medicine 10/03/21 documented as of this encounter
--- OUTSIDE RECORDS SUMMARY | 2022-05-04 10:19 | XMS_ITS | Encounter Summary ---
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 [address] [place] [address] [place], [place] Floor [address] [address] [facility] [phone] [place], [place] (Work) [phone] Social History Tobacco Use Types Packs/Day Years [...] or relatives? How often do you attend faith or faith More than 4 time s per year 09/17/2021 services? Do you belong to any clubs or organizations Yes 09/17/2021 such as faith groups, unions, fraternal or athletic groups, or [...] minutes do you engage in exercise at is 20 min 09/17/2021 level? Stress Answer [...] Comments Blood Pressure 140/65 10/18/2021 8:25 AM RABBIT DRESSER Pulse 69 10/18/2021 8:25 AM RABBIT DRESSER Temperature 36.8 ??C (98.2 ??F) 10/18/2021 4:00 AM RABBIT DRESSER Respiratory Rate 16 10/18/2021 4:33 AM RABBIT DRESSER Oxygen Saturation 97% 10/18/2021 8:25 AM RABBIT DRESSER Inhaled Oxygen Concentration - - Weight 99.2 kg (218 lb 11.1 oz) 10/17/2021 8:45 AM RABBIT DRESSER Height 155 cm (5' 1.02) 10/17/2021 8:45 AM RABBIT DRESSER Body Mass Index 41.29 10/17/2021 8:45 AM RABBIT DRESSER documented in this encounter Discharge Summaries Torin Chavez M.D. - 10/18/2021 7:50 AM CST DISCHARGE SUMMARY BRIEF OVERVIEW Hospital: [facility] [place] Discharge Provider: Paige Nguyen M.D. Primary Team: [facility] GENERAL SURGERY - [facility] Primary Care Providers: [...] thyroidectomy, 10/17/2021. The patient was admitted to [facility]. The patient was taken to the [...] were provided to the patient and caregiver(s). IT DRESSER documented in this encounter Discharge Instructions AttachmentsThe following attachments cannot be sent through Care Everywhere. Calcitriol (By mouth) (Niuean)Levothyroxine (By mouth) (Niuean)Antacid, Calcium and Magnesium (By mouth) (Niuean)documented in this encounter Medications at Time of [...] in [address] Nguyen. IT DRESSER Lora Garrett Pharm.DNaomi, R.Ph. - 10/17/2021 8:53 AM CST Images from the original note were not included. Admission Medication History Note Adherence issues: No concerns Medication list source: Patient Medication related information: none Prior to Admission Medications Med List Status: Pharmacy Complete Set By: Lora Garrett PharmNaomiD., R.Ph. at 10/17/2021 8:53 AM Taking? Last Dose Informant Start Date End Date LT acetaminophen (TYLENOL) 500 mg tablet Past Week Self 06/29/12 -- Take 2 tablets by mouth every 6 (six) hours as needed for pain. aspirin [address] tablet 10/16/2021 06/27/12 -- Take 1 tablet by mouth daily. veloxcq-bwihrihsy-yfkk tablet 10/16/2021 -- -- Take 3 tablets [...] -- Take 2.5 mg by mouth daily. [facility] Prescription (Allergy Immunotherapy) 10/17/2021 06/27/12 -- Take 1 each by mouth as needed (allergies). Homeopathic remedy drops multivitamin (multivitamin) tablet 10/16/2021 -- -- Take 1 tablet by mouth daily. omega-3 fatty acids 1,250 mg capsule 10/16/2021 -- -- Take 1,200 mg by mouth daily. RED YEAST RICE ORAL 10/16/2021 -- -- Take 1 tablet by mouth 2 (two) times a day. IT DRESSER documented in this encounter Nursing Notes Anabel Rosales R.N. - 10/18/2021 10:33 AM CST Patient stable at discharge. Education was reviewed with patient. Any further questions were answered. Pain was well controlled with oral pain medications. Patient discharged home with significant other. Patient needs addressed. IT DRESSER Lora Rebolledo R.N. - 10/18/2021 5:12 AM CST Shift Goals: Clinical Goals for the Shift: rest overnight Identify possible barriers to meeting goals/advancing plan of care: none End of Shift Summary: Patient rested well overnight with minimal pain which was managed with currentregimen. Vitals remained stable with no acute events overnight. IT DRESSER documented in this encounter OR Notes Op Note - Paige Nguyen M.D. - 10/17/2021 10:51 AM CST Pre-op Diagnosis Goiter Multinodular Nontoxic Post-op Diagnosis Goiter Multinodular Nontoxic A registered sales assistant actively participated and was necessary for [...] was mobilized in a similar fashion. An food and beverage assistant manager was necessary to help expose and dissect [...] without complication...Dictated by Dr. Patrick Nguyen M.D. IT DRESSER Brief Op Note - Torin Chavez M.D. - 10/17/2021 10:51 AM CST Pre-op Diagnosis Goiter Multinodular Nontoxic Post-op Diagnosis Goiter Multinodular Nontoxic Findings Multinodular goiter. Near total thyroidectomy Complications None Darius Chavez M.D. IT DRESSER documented in this encounter Miscellaneous Notes Hospital Course - Torin Chavez M.D. - 10/17/2021 1:49 PM CST Multinodular goiter status post near total thyroidectomy, 10/17/2021. The patient was admitted to [facility]. The patient was taken to the [...] patient's home medications were restarted as indicated. IT DRESSER documented in this encounter Plan of Treatment Not on filedocumented as of this encounter Procedures Procedure Name Priority Date/Time Associated Diagnosis Comme nts CALCIUM, TOT, S/P Routine 10/18/2021 7:03 Results for this AM RABBIT DRESSER procedure are i n the results section. PARATHYROID HORMONE Routine 10/17/2021 2:42 Resul ts for this (PTH), S PM RABBIT DRESSER procedure are i n the results section. ADULT OXYGEN THERAPY Routine 10/17/2021 12:39 PM RABBIT DRESSER SURGICAL PATHOLOGY, Routine 10/17/2021 11:23 Goiter Multinodul ar Results for this [facility] AM RABBIT DRESSER Nontoxic procedure are i n the results section. THYROIDECTOMY - TOTAL 10/17/2021 10:04 Goiter Multinod ular AM RABBIT DRESSER Nontoxic documented in this encounter Results (ABNORMAL) Calcium, Total (10/18/2021 7:03 AM RABBIT DRESSER) P athologist Signature Calcium, 7.9 (L) 8.8 - 10.2 10/18/2021 DTL Total, S mg/dL 7:43 AM RABBIT DRESSER Specimen Anatomical Collection Method Collection Time Receive d Time (Source) Location / / Volume Laterality Blood (Blood, 10/18/2021 7:03 AM 10/19/19 7:03 Venous) RABBIT DRESSER AM RABBIT DRESSER Torin Chavez M.D. LAB BLOOD ADD-ON Performing Organization Address City/[facility] Phon e Number [facility] - [address] [address] [address] [facility] [place] [address] Laboratories-[address] (ABNORMAL) Parathyroid Hormone (PTH) (10/17/2021 2:42 PM RABBIT DRESSER) Patholo gist Method Time [facility] Parathyroid <6.0 (L) 15 - 65 10/17/2021 DT Hormone (PTH), S pg/mL 3:37 PM RABBIT DRESSER Specimen Anatomical Collection Method Collection Time Receive d Time (Source) Location / / Volume Laterality Blood (Blood, 10/17/2021 2:42 PM 10/17/19 3:09 Venous) RABBIT DRESSER PM RABBIT DRESSER Torin Chavez M.D. LAB BLOOD ADD-ON Performing Organization Address [facility] Phon e Number [facility] - [address] [address] Laboratories-[address] Surgical Pathology, Frozen Lab (10/17/2021 11:23 AM RABBIT DRESSER) Component Value Ref Test Analysis Performed Pathologis t Range Method Time At [facility] 10/20/2021 METH 4:20 PM RABBIT DRESSER Report Anca Salazar M.D. 10/20/2021 METH electronically 4:20 PM signed by RABBIT DRESSER I verify that I have examined all relevant slides/materials for the specimen(s) and rendered or confirmed the diagnosis. Gross Description A. ??Received fresh labeled left thyroid is an 18 gram 10/20/2021 METH partial thyroidectomy with 7.1 x 3.2 x 2.6 cm left lobe. 4:20 PM The lobe is received disrupted. ??There is a 1 x 0.6 x 0.4 RABBIT DRESSER cm reyes-white area identified. ??The remainder of the thyroid lobe is uniformly nodular. ??Program Architect tissue submitted for permanent sections. ??Grossed by Parvez Salazar M.D. -Pathology Resident. B. ??Received fresh labeled right thyroid is a 40 gram partially disrupted partial thyroidectomy with a 7.1 x 4.9 x 3.5 cm right lobe, in aggregate. ??The thyroid parenchyma demonstrates multiple reyes-brown soft nodules, 0.5 to 5.1 cm. ??The largest nodule is detached and shows hemorrhagic and cystic spaces. ??Program Architect tissue submitted for permanent sections. ??Grossed by Derian Rodgers, PA([facility]). Block Summary A Left thyroid 10/20/2021 METH A1 Left thyroid 4:20 PM A2 Left thyroid field sales representative section C ST B Right thyroid B1 Right superior B2 Right mid B3 Right inferior B4 Dominant detached nodule Interpretation FINAL DIAGNOSIS 10/20/2021 METH 4:20 PM A. ??Thyroid, left, left lobectomy: ??Hyperplastic nodules. RABBIT DRESSER Mild chronic thyroiditis. B. ??Thyroid, right, right lobectomy: ??Hyperplastic in adenomatous nodules with degenerative features. ??Mild chronic thyroiditis. Congo red performed at [facility] on section from block B4 is negative. Specimen (Source) Anatomical Collection Method Collection Time Re ceived Time Location / / Volume Laterality Tissue (Thyroid) 10/17/2021 11:23 AM RABBIT DRESSER Tissue (Thyroid) 10/17/2021 11:32 AM RABBIT DRESSER Narrative This result has an attachment that is no t available. Paige Nguyen M.D. LAB SURG PATH ORDERABLES Performing Organization Address City/State/ZIP Code Phon e Number [facility] - [address] [place], [place] [address] [place] [address] Laboratories-[facility] [address] documented in this encounter Visit Diagnoses Diagnosis Goiter Multinodular Nontoxic - Primary documented in this encounter Admitting Diagnoses Diagnosis Goiter Multinodular Nontoxic documented in this encounter Administered Medications Inactive Administered Medications - up to 3 most recent administrations Medication Order MAR Action Action Date Dose Rate Site acetaminophen tablet 1,000 mg Given 10/17/2021 9:50 AM RABBIT DRESSER 1,000 mg (TYLENOL) 1,000 mg, oral, Once, On Sun10/17/21 at 1000, For 1 dose, Pre-Op, Machining Department Supervisor, PreOp with sips acetaminophen tablet 1,000 mg (TYLENOL) Given 10/18/2021 9:23 AM RABBIT DRESSER 1,000 mg 1,000 mg, oral, Every 6 hours, First dose (after last modification) on Sun10/17/21 at 2200, (not to exceed 4 grams in 24 hours) Given 10/18/2021 4:05 AM RABBIT DRESSER 1,000 mg Given 10/17/2021 10:09 PM RABBIT DRESSER 1,000 mg acetaminophen tablet 500 mg (TYLENOL) Given 10/17/2021 3:54 PM RABBIT DRESSER 500 mg 500 mg, oral, Every 6 hours, First dose on Sun10/17/21 at 1600, (not to exceed 4 grams in 24 hours) calcitRIOL capsule 0.5 mcg (ROCALTROL) Given 10/18/2021 8:24 AM RABBIT DRESSER 0.5 mcg 0.5 mcg, oral, Daily, First dose on Sun10/17/21 at 1730 Given 10/17/2021 6:02 PM RABBIT DRESSER 0.5 mcg calcium carbonate chewable tablet Given 10/18/2021 8:2 4 AM RABBIT DRESSER 600 mg of calcium 600 mg of calcium (TUMS E-X) 600 mg of calcium, oral, 3 times daily, First dose on Sun10/17/21 at 2100, Doses listed are in mg of elemental calcium. Take with food. 750 mg calcium carbonate contains 300 mg of elemental calcium. Given 10/17/2021 8:45 PM RABBIT DRESSER 600 mg of calcium fentaNYL injection 25 mcg (SUBLIMAZE) Given 10/17/2021 12:51 PM RABBIT DRESSER 25 mcg 25 mcg, intravenous, Every 2 min PRN, For pain 4 or greater (maximum 100 mcg). If max dose of Fentanyl is reached and if pain is greater than 4, discontinue Fentanyl: give Hydromorphone, Starting on Sun10/17/21 at 1239, PACU (only) Given 10/17/2021 12:48 PM RABBIT DRESSER 25 mcg Given 10/17/2021 12:44 PM RABBIT DRESSER 25 mcg HYDROmorphone (PF) injection 0.2 mg Given 10/17/2021 1:45 PM RABBIT DRESSER 0.2 mg (DILAUDID) 0.2 mg, intravenous, Every 5 min PRN, moderate pain or score 4-6 of 10, severe pain or score 7-10 of 10, Starting on Sun10/17/21 at 1239, PACU (only), Up to maximum total dose of 2 mg Given 10/17/2021 1:40 PM RABBIT DRESSER 0.2 mg labetalol injection 5 mg (NORMODYNE,AHMADI DATE) Given 10/17/2021 1:16 PM RABBIT DRESSER 5 mg 5 mg, intravenous, Every 15 min PRN, high blood pressure, For SBP>160 mmHG. Hold for heart rate<60, Starting on Sun10/17/21 at 1239, For 2 doses, PACU (only), Follow institution's IV administration guidelines Given 10/17/2021 1:00 PM RABBIT DRESSER 5 mg lactated ringers Continued from OR 10/17/2021 1:01 PM RABBIT DRESSER 20 mL/hr 20 mL/hr 20 mL/hr, intravenous, Continuous, Starting on Sun10/17/21 at 1100, PACU & Post-Op lisinopriL tablet 2.5 mg (PRINIVIL,ZESTR IL) Given 10/18/2021 8:24 AM RABBIT DRESSER 2.5 mg 2.5 mg, oral, Daily, First dose on Sun10/17/21 at 1430 Given 10/17/2021 2:54 PM RABBIT DRESSER 2.5 mg NaCl 0.45 % infusion New Bag 10/17/2021 2:39 PM RABBIT DRESSER 30 mL/hr 30 mL/hr 30 mL/hr, intravenous, [...] Recently Administered Medications Times are shown in RABBIT DRESSER. Scheduled Medication Order 10/16/2021 10/17/2021 10/18/2021 acetaminophen tablet 1,000 mg (TYLENOL) (COMPLETED) 0950 (Given - Provider: Paz Kohli R.N.) 1,000 mg, oral, Once, On Sun10/17/21 at 1000, For 1 dose, Pre-Op, Machining Department Supervisor, PreOp with sips acetaminophen tablet 1,000 mg (TYLENOL) 2209 (Given - Provider: John Velez R.N.) 0405 (Given - Provider: Lora Rebolledo R.N.)0923 (Given - Provider: Anabel Rosales RNaomiN.) 1,000 mg, oral, Every 6 hours, First [...] 600 mg of calcium (TUMS E- X) 2045 (Given - Provider: John Velez R.N.) 0824 [...] mg per tablet 2 tablet (SE NOKOT-S) 204 (Not Given - Provider: John Velez R.N. [...] (NORMODYNE,TRANDATE) (COMPLETED) 1300 (Given - Provider: Nikia Taylor, R.N.)1316 (Given - Provider: Nikia Taylor R.N.) 5 [...] 1204 documented in this encounter Care Teams Assistant Professor Of Chemistry Relationship Specialty Start Date End Date Elsewhere, Pcp PCP - General Internal Medicine 10/03/21 documented as of this encounter
--- OUTSIDE RECORDS SUMMARY | 2022-05-04 10:19 | XMS_ITS | Encounter Summary ---
:1955 Author Organization [facility] Address [address] [place] [address] Care Team Providers Name Role Phone Unavailable Primary Care Provider Unavailable Reason for Referral Outpatient (Routine) - Closed Specialty Diagnoses / Procedures Referred By Contact Refer red To Contact Diagnoses Routine Screening Breast Exam Sánchez Young M.D. [facility] Region Procedures BI Breast Screening Bilateral with Tomosynthesis [address] [place] [phone] Referral ID Status Reason Start Date Expiration Date Visits Requ ested Visits Authorized [id number] Closed 06/22/2021 06/22/2022 1 1 Reason for Visit Outpatient (Routine) - Closed Specialty Diagnoses / Procedures Referred By Contact Refer red To Contact Diagnoses Routine Screening Breast Exam [facility] Region Procedures BI Breast Screening Bilateral with Tomosynthesis [address] [place] [phone] Referral ID Status Reason Start Date Expiration Date Visits Requ ested Visits Authorized [id number] Closed 06/22/2021 06/22/2022 1 1 Encounter Details Date Type Department Care Team Description 06/24/2021 Hospital Encounter Department of Sánchez Young Routin e Screening Radiology in [facility] Jose Alberto Breast [address], [address] [place] [address] [phone] Social History Tobacco Use Types Packs/Day Years [...] How often do you attend faith or gnosticist More than 4 time s [...] or slept in a retirement (including now)? Sex Assigned at Date Recorded Female 05/11/2021 12:39 PM CDT documented as of this encounter Medications at Time of Discharge Medication Sig Dispensed Refills Start Date End Date acetaminophen (TYLENOL) Take 2 tablets by 0 06/29 500 mg tablet mouth every 6 (six) hours as needed for pain. aspirin [address] tablet Take 1 tablet by 0 2011 mouth daily. ibuprofen Take 3 tablets by 0 06/29/2012 (for_ADVIL,MOTRIN) 200 mg mouth every 6 (six) tablet hours as needed for pain. lisinopriL Take 2.5 mg by mouth 0 01/26/2021 (PRINIVIL,ZESTRIL) 2.5 mg daily. tablet Misc Prescription Take 1 each by mouth 0 06/27/20 12 (Allergy Immunotherapy) as needed (allergies). Homeopathic remedy drops calcium carbonate-vitamin Take 2 tablets by 0 02/200210/03/2021 D3 500 mg(1,250mg) -125 mouth daily. unit per tablet cholecalciferol Take 2,000 Units by 0 10/18/2021 (for_VITAMIN D3) 2,000 mouth daily. Unit capsule omega 1-czu-nnj-fish oil Take 1 capsule by 0 10/1910/03/2021 600 mg-216 mg- 324 mouth daily. mg-1,200 mg capsule,delayed release(DR/EC) documented as of this encounter Plan of Treatment Not on filedocumented as of this encounter Procedures Procedure Name Priority Date/Time Associated Comments Diagnosis BI BREAST SCREENING RAD - Routine 06/24/2021 11:50 Routine Screenin g Results for BILATERAL WITH (most inpatients AM CDT Breast Exam this proc edure TOMOSYNTHESIS and all are in the outpatients) results section. documented in this encounter Results BI Breast Screening Bilateral with Tomosynthesis (06/24/2021 11:50 AM CDT) Anatomical Region Laterality Modality Breast, Breast Imaging RST LOS, Breast Imaging ARZ LOS, Breanne st Bilateral Mammography Imaging FLA LOS Specimen (Source) Anatomical Collection Method Collection Time Re ceived Time Location / / Volume Laterality 06/24/2021 2:33 PM CDT Impressions 06/24/2021 2:38 PM CDT Negative. RECOMMENDATION: ??Annual Screening Mammo gram ASSESSMENT: ??BI-RADS: 1: Negative. Narrative 06/24/2021 2:38 PM CDT EXAM: ??BI BREAST SCREENING BILATERAL WITH TOMOSYNTHESIS Current study was evaluated with a [employer] Aided Detection (CAD) system. INDICATION: ??Screening mammogram. COMPARISON: ??Prior exam(s) were availab le and reviewed for comparison. DENSITY: ??b. There are scattered areas of fibroglandular density. FINDINGS: ??No mammographic findings of malignancy. Procedure Note Marcelino Shelley M.D. - 06/24/2021Format ting of this note might be different from the original. EXAM: BI BREAST SCREENING BILATERAL WITH TOMOSYNTHESIS Current study was evaluated with a [employer] Aided Detection (CAD) system. INDICATION: Screening mammogram. COMPARISON: Prior exam(s) were available and reviewed for comparison. DENSITY: b. There are scattered areas of fibroglandular density. FINDINGS: No mammographic findings of ma lignancy. IMPRESSION: Negative. RECOMMENDATION: Annual Screening Mammogr am ASSESSMENT: BI-RADS: 1: Negative. Sánchez Young M.D. IMG BI PROCEDURES documented in this encounter Visit Diagnoses Diagnosis Routine Screening Breast Exam documented in this encounter
--- OUTSIDE RECORDS SUMMARY | 2022-05-04 10:19 | XMS_ITS | Encounter Summary ---
:1955 Author Organization [facility] Address [address] [place] [address] Care Team Providers Name Role Phone Unavailable Primary Care Provider Unavailable Encounter Details Date Type Department Care Team Description 08/29/2021 Admin Visit Department of Family Ramón Cosby, Medicine, [facility]. in [facility] [address] [facility] [address] [place] [address] [place] [address] [phone] Social History Tobacco Use Types Packs/Day Years [...] or relatives? How often do you attend jehovah's witness or shinto More than 4 time s per year 09/17/2021 services? Do you belong to any clubs or organizations Yes 09/17/2021 such as jehovah's witness groups, unions, fraternal or athletic groups, or [...] place to sleep or slept in a chcf (including now)? Sex Assigned at Date Recorded Female 05/11/2021 12:39 PM CDT documented as of this encounter Plan of Treatment Not on filedocumented as of this encounter Visit Diagnoses Not on filedocumented in this encounter Additional Health Concerns Infection Onset Date Last Indicated Resolved Time COVID19 Pending 08/28/2021 08/29/2021 08/30/2021 2:17 AM SECRETARY TO BOARD OF COMMISSIONERS documented as of this encounter
--- OUTSIDE RECORDS SUMMARY | 2022-05-04 10:19 | XMS_ITS | Encounter Summary ---
:1955 Author Organization [facility] Address [address] [place] [address] Care Team Providers Name Role Phone Elsewhere, Pcp Primary Care Provider Unavailable Reason for Referral Outpatient (Routine) - Authorized Specialty Diagnoses / Procedures Referred By Contact Refer red To Contact Diagnoses Goiter Multinodular Nontoxic Heriberto Gómez P.A.-C., [facility] Procedures Laryngoscopy M.S. [address] [place] [address] Referral ID Status Reason Start Date Expiration Date Visits V isits Requested Authorized [id number] Authorized 10/04/2021 10/04/2022 1 1 RIAL LISTER Reason for Visit Outpatient (Routine) - Closed Specialty Diagnoses / Procedures Referred By Contact Refer red To Contact Diagnoses Goiter Multinodular Nontoxic Estrella Sevilla M.D. [facility] Procedures Vocal cord check [address] [place] [address] Referral ID Status Reason Start Date Expiration Date Visits Requ ested Visits Authorized [id number] Closed 09/21/2021 09/21/2022 1 1 Encounter Details Date Type Department Care Team Description 10/04/2021 Diagnostic Department of Heriberto Gómez Multin odular Otorhinolaryngology mary lou Cates P.A.-C., [facility] [place], [place] M.S. [address] [facility] [address] [place], [place] [phone] [place], [place] [phone] Social History Tobacco Use Types Packs/Day Years [...] How often do you attend buddhist or taoist More than 4 time s [...] place to sleep or slept in a residential (including now)? Education Answer Date Recorded What is the highest level of school Bachelor's degree (e.g., BA, AB, 09/17/2021 you have completed or the highest BS) degree you have received? Sex Assigned at Date Recorded Female 05/11/2021 12:39 PM CDT documented as of this encounter Procedure Notes Heriberto Gómez P.A.-C., M.S. - 10/04/2021 11:00 AM CSTAssociated Order(s): Laryngoscopy Post-Procedure Diagnose(s): Goiter Multinodular Nontoxic Laryngoscopy Date/Time: 10/04/2021 10:59 AM Performed by: Heriberto Gómez P.A.-C. MNaomiS. Authorized by: Heriberto Gómez P.A.-C., M.SNaomi PROCEDURE NOTE: PRE-OPERATIVE VOCAL CORD CHECK Procedure: Flexible laryngoscopy, fiberoptic, diagnostic Details: Verbal informed consent was obtained. After topical decongestion and anesthesia with 2% lidocaine and 0.5% phenylephrine, the flexible fiberoptic scope was inserted into the right side. The nasal cavity was unremarkable. The nasopharynx, oropharynx, and hypopharynx appeared normal. At the level of the larynx, the epiglottis, false vocal folds, true vocal folds, arytenoids, and pyriform sinuses appearnormal without masses or lesions. There is normal movement of the vocal cords. The patient toleratedthe procedure well. Impression: No evidence of vocal fold paresis or paralysis RIAL LISTER documented in this encounter Plan of Treatment Not on filedocumented as of this encounter Procedures Procedure Name Priority Date/Time Associated Diagnosis Comme nts LARYNGOSCOPY Routine 10/04/2021 10:59 AM Goiter Multinodular R esults for this MATERIAL LISTER Nontoxic procedure are i n the results section. documented in this encounter Results Laryngoscopy (10/04/2021 10:59 AM MATERIAL LISTER) Narrative Heriberto Gómez P.A.-C., M.S. - 022 10:59 AM MATERIAL LISTER Heriberto Gómez P.A.-C., M.S. ? 10/04/2021 11:00 AM Laryngoscopy Date/Time: 10/04/2021 10:59 AM Performed by: Heriberto Gómez P.A.-C., M.S. Authorized by: Heriberto Gómez P.A.-C., M.S. Heriberto Gómez P.A.-C. MNaomiSNaomi ENT ORDERABLES documented in this encounter Visit Diagnoses Diagnosis Goiter Multinodular Nontoxic documented in this encounter Care Teams Structural Manager Relationship Specialty Start Date End Date Elsewhere, Pcp PCP - General Internal Medicine 10/03/21 documented as of this encounter
--- OUTSIDE RECORDS SUMMARY | 2022-05-04 10:19 | XMS_ITS | Encounter Summary ---
:1955 Author Organization [facility] Address [address] [place] [address] Care Team Providers Name Role Phone Unavailable Primary Care Provider Unavailable Encounter Details Date Type Department Care Team Description 09/23/2021 Documentation Division of Endocrinology in [facility] Estrella dotson M.D. [place], [place] [address] [facility] [address] [place] [phone] (Wo rk) Social History Tobacco Use Types [...] or relatives? How often do you attend anabaptism or advent More than 4 time s per year 09/17/2021 services? Do you belong to any clubs or organizations Yes 09/17/2021 such as anabaptism groups, unions, fraternal or athletic groups, or [...] place to sleep or slept in a fci (including now)? Education Answer Date Recorded What is the highest level of school Bachelor's degree (e.g., BA, AB, 09/17/2021 you have completed or the highest BS) degree you have received? Sex Assigned at Date Recorded Female 05/11/2021 12:39 PM CDT documented as of this encounter Progress Notes Estrella Sevilla M.D. - 09/23/2021 12:40 PM CST ASSESSMENT / PLAN #Multinodular goiter (Bilateral thyroid nodules, all low suspicious in appearance, right lobe dominant nodule 3.4 cm, left lobe dominant nodule is 3 cm) associated with symptoms of dysphagia and dysphonia -I called on 09/21/2021 and updated her regarding the FNA results. Both biopsies of dominant nodules on right and left thyroid nodule are benign. -Given the compression effect, she is meeting on 10/04 with Endocrine surgery for discussion regarding thyroidectomy. -Calcium and vitamin D level within normal limits. No anemia. Recommended to take 1200 mg of calciumand 1000 units of vitamin D daily for optimization pre surgery. 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
--- OUTSIDE RECORDS SUMMARY | 2022-05-04 10:19 | XMS_ITS | Encounter Summary ---
:1955 Author Organization [facility] Address [address] [place] [address] Care Team Providers Name Role Phone Unavailable Primary Care Provider Unavailable Reason for Referral Outpatient (Routine) - Closed Specialty Diagnoses / Procedures Referred By Contact Refer red To Contact Diagnoses Iodine Deficiency Related Diffuse Endemic Goiter Irina Pham C.NJulia ASHRAF [facility] [place] Procedures US Thyroid [address] [place], [place] [address] Referral ID Status Reason Start Date Expiration Date Visits Requ ested Visits Authorized [id number] Closed 07/04/2021 07/04/2022 1 1 RATOR OPERATOR Reason for Visit Outpatient (Routine) - Closed Specialty Diagnoses / Procedures Referred By Contact Refer red To Contact Diagnoses Iodine Deficiency Related Diffuse Endemic Goiter Irina Pham C.N.Jo [facility] [place] Procedures US Thyroid [address] [place], [place] [address] Referral ID Status Reason Start Date Expiration Date Visits Requ ested Visits Authorized [id number] Closed 07/04/2021 07/04/2022 1 1 Encounter Details Date Type Department Care Team Description 07/06/2021 Hospital Encounter Department of Irina Pham Iod ine Deficiency Radiology in Tarik Del Real C.N.P. Related [place], [place] [address] Endemic Goiter [address] [address] [place], [place] [phone] (Work) [phone] Social History Tobacco Use Types Packs/Day Years [...] or relatives? How often do you attend judaism or tenriism More than 4 time s per year 09/17/2021 services? Do you belong to any clubs or organizations Yes 09/17/2021 such as judaism groups, unions, fraternal or athletic groups, or [...] place to sleep or slept in a correction (including now)? Sex Assigned at Date Recorded [...] D3) 2,000 mouth daily. Unit capsule omega [id number] oil Take 1 capsule by 0 10/1910/03/2021 600 mg-216 mg- 324 mouth daily. mg-1,200 mg capsule,delayed release(DR/EC) documented as of this encounter Plan of Treatment Not on filedocumented as of this encounter Procedures Procedure Name Priority Date/Time Associated Comments Diagnosis US THYROID RAD - Routine 07/06/2021 3:44 Iodine Deficiency Result s for this (most inpatients PM MACERATOR OPERATOR Related Diffuse procedur e are in and all Endemic Goiter the results outpatients) section. documented in this encounter Results US Thyroid (07/06/2021 3:44 PM MACERATOR OPERATOR) Anatomical Region Laterality Modality Head and Neck, Ultrasound RST LOS, Ultrasound ARZ LOS, N/A Ultrasound Ultrasound FLA LOS Specimen (Source) Anatomical Collection Method Collection Time Re ceived Time Location / / Volume Laterality 07/07/2021 9:13 AM MACERATOR OPERATOR Impressions 07/07/2021 9:23 AM MACERATOR OPERATOR 1. Thyromegaly. 2. Bilateral thyroid nodules have low caballero spicion for malignancy based on sonographic features, the largest on the right measuring 3.4 cm and the largest on the left measuring 3.0 cm. Consider f ollow-up per guidelines below. Narrative 07/07/2021 9:23 AM MACERATOR OPERATOR EXAM: US THYROID COMPARISON: 01/13/2011 FINDINGS: The right thyroid lobe measures: 3.5 cmx 3.8 cmx8.7 cm The left thyroid lobe measures: 2.0 cmx3 .1 cmx7.0 cm The isthmus measures: 15 mm in AP diamet er. The thyroid parenchyma appears: heteroge neous. A nodule in the lower right thyroid lobe measures 3.1 x 3.3 x 3.4 cm and has the following features: * ??composition: solid (1) * ??echogenicity: isoechoic (0) * ??shape: not taller than wide (0) * ??margins: smooth margins (0) * ??echogenic foci: no echogenic foci (0 ). The Pinto ultrasound score is 1. Based on the [facility] Thyroid Nodule Care Process Model, the nodule has low suspic ion for malignancy (1-5%). Additional smaller right smaller right thyroid nodu les with similar imaging characteristics in the mid and upper right thyroid lobe measuring 3.0 cm and 2.9 cm. A nodule in the lower left thyroid lobe measures 1.6 x 2.3 x 3.0 cm and has the following features: * ??composition: solid (1) * ??echogenicity: hyperechoic (0) * ??shape: not taller than wide (0) * ??margins: smooth margins (0) * ??echogenic foci: no echogenic foci (0 ). The Humble ultrasound score is 1. Based on the [facility] Thy[facility]od[facility] Care Process Model, the nodule has low suspic ion for malignancy (1-5%). Additional smaller left upper thyroid nodule with s imilar imaging characteristics measures 1.6 cm. A nodule in the mid left thyroid lobe me asures 1.1 x 2.2 x 2.1 cm and has the following features: * ??composition: mixed cystic/solid (0) * ??echogenicity: isoechoic (0) * ??shape: not taller than wide (0) * ??margins: smooth margins (0) * ??echogenic foci: no echogenic foci (0 ). The Pinto ultrasound score is 0. Based on the [facility]HumbleExpert Thyroid Nodule Care Process Model, the nodule has low suspic ion for malignancy (1-5%). Lymph nodes: No pathologically enlarged lymph nodes are seen in the neck, with evaluation of levels II-V. The thyroid nodule descriptions and marilyn gories are based on the Thyroid Nodule Care Process Model established by the [facility] Endocrine Oncology Specialty [place]. [email or web address] ic/clinical-answers/[email or web address] 9375 The AskPryoExpert Thyroid Nodule CPM sta neelam the following recommendations: ? No suspicion or Extremely low-tino picion nodule: No FNA, no imaging f/u ? Low-suspicion nodule: FNA if grea ter than or equal to 25 mm; US f/u in 2-5 yrs if greater than or equal to 15 mm ? Intermediate-suspicion nodule: FN A if greater than or equal to 15 mm; US f/u in 1-3 yrs if greater than or equal to 10 mm ? High-suspicion nodule: FNA if gre ater than or equal to 10 mm (or smaller if desired); US f/u in 1 yr if not FNA Procedure Note Angela Donovan M.D. - 07/07/2021Form atting of this note might be different from the original. EXAM: US THYROID COMPARISON: 01/13/2011 FINDINGS: The right thyroid lobe measures: 3.5 cmx 3.8 cmx8.7 cm The left thyroid lobe measures: 2.0 cmx3 .1 cmx7.0 cm The isthmus measures: 15 mm in AP diamet er. The thyroid parenchyma appears: heteroge neous. A nodule in the lower right thyroid lobe measures 3.1 x 3.3 x 3.4 cm and has the following features: * composition: solid (1) * echogenicity: isoechoic (0) * shape: not taller than wide (0) * margins: smooth margins (0) * echogenic foci: no echogenic foci (0). The Pinto ultrasound score is 1. Based on the [employer]pert Thyroid Nodule Care Process Model, the nodule has low suspic ion for malignancy (1-5%). Additional smaller right smaller right thyroid nodu les with similar imaging characteristics in the mid and upper right thyroid lobe measuring 3.0 cm and 2.9 cm. A nodule in the lower left thyroid lobe measures 1.6 x 2.3 x 3.0 cm and has the following features: * composition: solid (1) * echogenicity: hyperechoic (0) * shape: not taller than wide (0) * margins: smooth margins (0) * echogenic foci: no echogenic foci (0). The Pinto ultrasound score is 1. Based on the [facility]MayoExpert Thyroid Nodule Care Process Model, the nodule has low suspic ion for malignancy (1-5%). Additional smaller left upper thyroid nodule with s imilar imaging characteristics measures 1.6 cm. A nodule in the mid left thyroid lobe me asures 1.1 x 2.2 x 2.1 cm and has the following features: * composition: mixed cystic/solid (0) * echogenicity: isoechoic (0) * shape: not taller than wide (0) * margins: smooth margins (0) * echogenic foci: no echogenic foci (0). The Humble ultrasound score is 0. Based on the AskPryoExpert Thyroid Nodule Care Process Model, the nodule has low suspic ion for malignancy (1-5%). Lymph nodes: No pathologically enlarged lymph nodes are seen in the neck, with evaluation of levels II-V. The thyroid nodule descriptions and marilyn gories are based on the Thyroid Nodule Care Process Model established by the [facility] Endocrine Oncology Specialty [place]. [email or web address]/top ic/clinical-answers/[email or web address]/[email or web address] 7778 The AskReal Time ContentyoExpert Thyroid Nodule CPM sta neelam the following recommendations: No suspicion or Extremely low-suspicion nodule: No FNA, no imaging f/u Low-suspicion nodule: FNA if greater th an or equal to 25 mm; US f/u in 2-5 yrs if greater than or equal to 15 mm Intermediate-suspicion nodule: FNA if g reater than or equal to 15 mm; US f/u in 1-3 yrs if greater than or equal to 10 mm High-suspicion nodule: FNA if greater t vieyra or equal to 10 mm (or smaller if desired); US f/u in 1 yr if not FNA IMPRESSION: 1. Thyromegaly. 2. Bilateral thyroid nodules have low caballero spicion for malignancy based on sonographic features, the largest on the right measuring 3.4 cm and the largest on the left measuring 3.0 cm. Consider f ollow-up per guidelines below. Irina HARP US PROCEDURES documented in this encounter Visit Diagnoses Diagnosis Iodine Deficiency Related Diffuse Endemi c Goiter documented in this encounter
--- OUTSIDE RECORDS SUMMARY | 2022-05-04 10:19 | XMS_ITS | Encounter Summary ---
:1955 Author Organization [facility] Address [address] [place] [address] Care Team Providers Name Role Phone Unavailable Primary Care Provider Unavailable Encounter Details Date Type Department Care Team Description 09/20/2021 Clinical Communication Division of Zelda Dang Endocrinology in [place]to [place], [place] [address] [facility] [address] [place] [phone] Social History Tobacco Use Types Packs/Day Years [...] How often do you attend buddhist or muslim More than 4 time s per year [...] place to sleep or slept in a senior care (including now)? Education Answer Date Recorded What [...]
--- OUTSIDE RECORDS SUMMARY | 2022-05-04 10:19 | XMS_ITS | Encounter Summary ---
:1955 Author Organization [facility] Address [address] [place] [address] Care Team Providers Name Role Phone Elsewhere, Pcp Primary Care Provider Unavailable Reason for Referral Outpatient (Routine) - Closed Specialty Diagnoses / Procedures Referred By Contact Refer red To Contact Otorhinolaryngology Diagnoses Hoarseness Paige Nguyen M.D. [facility] [address] [place] [phone] Referral ID Status Reason Start Date Expiration Date Visits Requ ested Visits Authorized [id number] Closed 12/14/2021 12/14/2022 1 1 Encounter Details Date Type Department Care Team Description 12/14/2021 Orders Only Division of Endocrine Snidhu Jovel H oarseness (Primary and Metabolic Surgery R.N. Dx) in [address] [place] [phone] [place], [place] [phone] (Work) [phone] Social History Tobacco Use Types Packs/Day Years [...] or relatives? How often do you attend yazidism or protestant More than 4 time s per year 09/17/2021 services? Do you belong to any clubs or organizations Yes 09/17/2021 such as yazidism groups, unions, fraternal or athletic groups, or [...] as of this encounter Plan of Treatment Scheduled Referrals Name Type Priority Associated Order Schedule Diagnoses Otorhinolaryngology - Outpatient Routine Hoarseness Expect ed: Laryngology and voice Referral 2021 disorders consult (clinic) ( Approximate), Expires: 03/15/2023 documented as of this encounter Visit Diagnoses Diagnosis Hoarseness - Primary documented in this encounter Care Teams Fisher Oyster Relationship Specialty Start Date End Date Elsewhere, Pcp PCP - General Internal Medicine 10/03/21 documented as of this encounter
--- OUTSIDE RECORDS SUMMARY | 2022-05-04 10:19 | XMS_ITS | Encounter Summary ---
:1955 Author Organization [facility] Address [address] [place] [address] Care Team Providers Name Role Phone Elsewhere, Pcp Primary Care Provider Unavailable Reason for Referral Outpatient (Routine) - Authorized Specialty Diagnoses / Procedures Referred By Contact Refer red To Contact Endocrinology Estrella Sevilla M.D. [facility] [address] [place] [phone] Referral ID Status Reason Start Date Expiration Date Visits V isits Requested Authorized [id number] Authorized 10/21/2021 10/21/2022 1 1 NCED DEVELOPER Encounter Details Date Type Department Care Team Description 10/21/2021 Orders Only Division of Estrella Sevilla Goiter Multin odular Endocrinology in M.DNaomi Nontoxic (Primary Dx) [address] [place] [phone] Social History Tobacco Use Types Packs/Day Years [...] or relatives? How often do you attend quaker or sikhism More than 4 time s per year 09/17/2021 services? Do you belong to any clubs or organizations Yes 09/17/2021 such as quaker groups, unions, fraternal or athletic groups, or [...] of this encounter Plan of Treatment Scheduled Orders Name Type Priority Associated Diagnoses Order S chedule S-TSH Lab Routine Goiter Multinodular Expected : 12/01/2021, (Thyroid-Stimulating Nontoxic Expires : 01/21/2023 Hormone - Sensitive) T4 (Thyroxine), Free Lab Routine Goiter Multinodular Expected: 12/01/2021, Nontoxic Expires: 2022 S-TSH Lab Routine Goiter Multinodular Expected : 01/18/2022, (Thyroid-Stimulating Nontoxic Expires : 01/21/2023 Hormone - Sensitive) T4 (Thyroxine), Free Lab Routine Goiter Multinodular Expected: 01/18/2022, Nontoxic Expires: 2022 Parathyroid Hormone (PTH) Lab Routine Goiter Multinod ular Expected: 12/01/2021, Nontoxic Expires: 2022 Calcium, Total Lab Routine Goiter Multinodular Expect ed: 12/01/2021, Nontoxic Expires: 2022 25-Hydroxyvitamin D2 and Lab Routine Goiter Multinodu lar Expected: 12/01/2021, D3 Nontoxic Expires: 2022 Parathyroid Hormone (PTH) Lab Routine Goiter Multinod ular Expected: 01/18/2022, Nontoxic Expires: 2022 Calcium, Total Lab Routine Goiter Multinodular Expect ed: 01/18/2022, Nontoxic Expires: 2022 25-Hydroxyvitamin D2 and Lab Routine Goiter Multinodu lar Expected: 01/18/2022, D3 Nontoxic Expires: 2022 Scheduled Referrals Name Type Priority Associated Order Schedule Diagnoses Endocrinology office Outpatient Referral Routine Expected: visit (clinic) 01/18/2022, Expires: 01/21/2023 documented as of this encounter Visit Diagnoses Diagnosis Goiter Multinodular Nontoxic - Primary documented in this encounter Care Teams Saw Maker Relationship Specialty Start Date End Date Elsewhere, Pcp PCP - General Internal Medicine 10/03/21 documented as of this encounter
--- OUTSIDE RECORDS SUMMARY | 2022-05-04 10:19 | XMS_ITS | Encounter Summary ---
:1955 Author Organization [facility] Address [address] [place] [address] Care Team Providers Name Role Phone Unavailable Primary Care Provider Unavailable Reason for Referral Outpatient (Routine) - Closed Specialty Diagnoses / Procedures Referred By Contact Refer red To Contact Diagnoses Goiter Multinodular NontEstrella Merritt M.D. [facility] Procedures Vocal cord check [address] [place], [place] [phone] Referral ID Status Reason Start Date Expiration Date Visits Requ ested Visits Authorized [id number] Closed 09/21/2021 09/21/2022 1 1 utpatient (Routine) - Closed Specialty Diagnoses / Procedures Referred By Contact Refer red To Contact General Surgery Diagnoses Goiter Multinodular NontEstrella Merritt M.D. [facility] [address] [place] [address] Referral ID Status Reason Start Date Expiration Date Visits Requ ested Visits Authorized [id number] Closed 09/21/2021 09/21/2022 1 1 utpatient (Routine) - Closed Specialty Diagnoses / Procedures Referred By Contact Refer red To Contact Diagnoses Goiter Multinodular Nontoxic Estrella Sevilla M.D. [facility] Procedures END Thyroid USG [address] [place] [address] Referral ID Status Reason Start Date Expiration Date Visits Requ ested Visits Authorized [id number] Closed 09/21/2021 09/21/2022 1 1 ROOM ENGINEER Reason for Visit Outpatient (Routine) - Closed Specialty Diagnoses / Procedures Referred By Contact Refer red To Contact Endocrinology Diagnoses Goiter [facility]inodular [facility]oxic [facility] Jose Alberto [address] [place] [address] Referral ID Status Reason Start Date Expiration Date Visits Requ ested Visits Authorized [id number] Closed 08/22/2021 08/22/2022 1 1 Encounter Details Date Type Department Care Team Description 09/21/2021 Comprehensive Visit Division of Alex Carbajal M.D. [address] [place] [phone] Goiter Endocrinology in Zelda Dang M.D. [address] [place] [phone] [facility] [address] [place] [phone] Social History Tobacco Use Types Packs/Day Years [...] or relatives? How often do you attend sikh or anglican More than 4 time s per year 09/17/2021 services? Do you belong to any clubs or organizations Yes 09/17/2021 such as sikh groups, unions, fraternal or athletic groups, or [...] documented as of this encounter Consult Notes Zelda Dang M.D. - 09/21/2021 10:00 AM CST I have reviewed the history of Colleen Yani Tolentino with Dr. Sevilla. I have also personally met, interviewed, and examined this patient. I agree with the recommendations as outlined in her note. This nice 66-year-old woman is here for assessment of a multinodular goiter. This was noted several years ago but has become more symptomatic over the past year. She has noticed progressive fullness inher neck as well as increasing problems with dysphagia to predominantly liquids but also some solids. She has also noted raspy voice over the past year. She was seen locally and an ultrasound was ordered that shows multiple nodules bilaterally, at least three on the right and three on the left. The largest one on the right measures 3.4 cm in the largest one on the left measures 3 cm. They do not lookparticularly concerning as far as sonographic features but given the size I agree that biopsy would be in order. She has no other risk factor for thyroid cancer and she has been clinically euthyroid. Most recent TSH in May was normal at 1.5. Discussed consideration for FNA of dominant nodule on each side. I believe that she would benefit from surgery given her compressive symptoms. On examination there is obvious goiter as well as palpable fullness bilaterally, however we cannot appreciate a discrete palpable nodule on either side We will plan to proceed with FNA later today. ROOM ENGINEER Estrella Sevilla M.D. - 09/21/2021 10:00 AM CST SUBJECTIVE Chief Complaint: Multinodular goiter History of Present Illness: Colleen is a 66 y.o. female with history of hypertension, dyslipidemia, obesity,psoriasis and multinodular goiter who presented to the clinic with her for evaluation of thyroid nodules. 2010: She was noticed to have a large thyroid, thyroid ultrasound showed diffuse enlarged heterogenous thyroid gland with no discrete nodules. She did not follow up on that until 2020. No previous thyroid nodule biopsy. 06/2021: Her provider noticed that her thyroid is larger, as a result, she had a repeat thyroid ultrasound which shows 3 nodules on right lobe (largest 3.4 cm, low suspicious) and 3 nodules on left lobe (largest 3 cm, low suspicious), no lymphadenopathy. It has been about one year that she noticed difficulty swallowing and dysphagia with food, she chokes mostly with drinking fluids. She noticed fullness in her neck and also raspy voice since last year.She denies dyspnea or any shortness of breath. No history of radiation to head or neck area, no history of previous surgery in the head/neck area, no family history of thyroid nodule or thyroid cancer. She had hair loss in the scalp area and brittle nails started 2 years ago when she stopped taking her supplements, she restarted taking some of her supplements including calcium and vitamin D with someimprovement in hair growth but no change in the nail. She gained about 10 lbs over the last 4-5 months despite doing exercise and having the same diet. Denies any fatigue, muscle weakness, swelling, palpitation, tremor or sleep problem. TSH from 05/2021 is 1.57 Social History: No smoking, alcohol very rarely, no illicit drugs Family History: Mother has hypothyroidism Patient Active Problem List Diagnosis ??? Dislocation Ankle Closed Initial ??? Injury Head Initial ??? Hyperlipidemia ??? Osteopenia ??? Psoriasis ??? Arthroscopy Shoulder Status Post ??? Cholecystitis ??? Obesity Body Mass Index 30-39.9 Adult ??? Goiter Multinodular Nontoxic Medication: Current Outpatient Medications: ??? acetaminophen (TYLENOL) 500 mg tablet, Take 2 tablets by mouth every 6 (six) hours as needed forpain. , Disp: , Rfl: ??? aspirin [address] tablet, Take 1 tablet by mouth daily., Disp: , Rfl: ??? calcium carbonate-vitamin D3 500 mg(1,250mg) -125 unit per tablet, Take 2 tablets by mouth daily., Disp: , Rfl: ??? dzdypyx-sgcjywjmq-vowp tablet, , Disp: , Rfl: ??? cholecalciferol (for_VITAMIN D3) 2,000 Unit capsule, Take 2,000 Units by mouth daily., Disp: , Rfl: ??? ibuprofen (for_ADVIL,MOTRIN) 200 mg tablet, Take 3 tablets by mouth every 6 (six) hours as needed for pain. , Disp: , Rfl: ??? lisinopriL (PRINIVIL,ZESTRIL) 2.5 mg tablet, Daily, Disp: , Rfl: ??? Misc Prescription (Allergy Immunotherapy), Take 2 tablets by mouth daily., Disp: , Rfl: ??? omega 5-rif-naf-fish oil 600 mg-216 mg- 324 mg-1,200 mg capsule,delayed release(DR/EC), Take 1 capsule by mouth daily., Disp: , Rfl: ??? omega-3 fatty acids 1,250 mg capsule, , Disp: , Rfl: ??? RED YEAST RICE ORAL, Take 1 tablet by mouth 2 (two) times a day., Disp: , Rfl: Current Facility-Administered Medications: ??? acetaminophen tablet 1,000 mg (TYLENOL), 1,000 mg, oral, Once, Estrella Sevilla M.D. ??? lidocaine 4 % cream 1 application (LMX), 5 g, topical, PRN, Estrella Sevilla M.D. OBJECTIVE Physical Exam: GEN:Very pleasant, alert and fully oriented, NAD HEENT:Hair loss in the scalp area,Moist mucous membrane, right thyroid fullness visible in inspection, mobile with swallowing, smooth and non tender, left thyroid nodule appreciated, mobile and soft. No cervical or supraclavicular lymphadenopathy Ext:No tremor,DTR normal bilaterally Neuro:No focal neurologic deficits Labs: 05/2021: TSH 1.57 from outside lab Lab Results Component Value Date/Time TSH 1.96 11/12/2018 08:59 AM TSH 1.83 08/08/2012 09:41 AM ASSESSMENT / PLAN #Multinodular goiter (Bilateral thyroid nodules, all low suspicious in appearance, right lobe dominant nodule 3.4 cm, left lobe dominant nodule is 3 cm) associated with symptoms of dysphagia and dysphonia It was a pleasure meeting with and her . We reviewed the ultrasound findings and discussed that thyroid nodules are common, present within 70% of the population, and that 90-95% ofnodules are benign (not cancer) and that about 5% are cancers. We reviewed potential symptoms related to large nodules. I discussed that despite that thyroid nodules appear low suspicious in ultrasound, we favor FNA given the large size of the nodules. Also given the associated symptoms of dysphagia and dysphonia, recommend consult with Endocrine surgery for consideration of thyroidectomy. She is agreeable with the plan. Recommendation: -Bilateral FNA of the dominant nodules (Right lower nodule 3.4 cm and left lower nodule 3 cm). -Refer to Endocrine surgery for consideration of near total thyroidectomy given the symptoms of dysphagia/dysphonia -I will refer for vocal cord check -Labs ordered (Vitamin D, Calcium, CBC, TSH) -I will contact her once the results are back and will determine future plan based on the results. Case seen and discussed with . ROOM ENGINEER documented in this encounter Plan of Treatment Scheduled Referrals Name Type Priority Associated Diagnoses Order S [facility] General Surgery - Outpatient Referral Routine Goiter Multinodu lar Expected: Endocrine consult Nontoxic 09/21/2021 (clinic) (Approximate), Expires: 12/19/2022 documented as of this encounter Results T4 (Thyroxine), Free (09/21/2021 12:11 PM DUB ROOM ENGINEER) P athologist Signature T4 (Thyroxine), 1.2 0.9 - 1.7 09/21/2021 DTL Free, S ng/dL 1:24 PM DUB ROOM ENGINEER Specimen Anatomical Collection Method Collection Time Receive d Time (Source) Location / / Volume Laterality Blood (Blood, 09/21/2021 12:11 09/21/2021 Venous) PM DUB ROOM ENGINEER 12:52 PM DUB ROOM ENGINEER Estrella Sevilla M.D. LAB BLOOD ADD-ON Performing Organization Address City/[facility] Phon e Number [facility] - [address] Calcium, Total (09/21/2021 12:11 PM DUB ROOM ENGINEER) athologist [facility] Calcium, Total, 9.0 8.8 - 10.2 09/21/2021 DTL S mg/dL 1:24 PM DUB ROOM ENGINEER Specimen Anatomical Collection Method Collection Time Receive d Time (Source) Location / / Volume Laterality Blood (Blood, 09/21/2021 12:11 09/21/2021 Venous) PM DUB ROOM ENGINEER 12:52 PM DUB ROOM ENGINEER Estrella Sevilla M.D. LAB BLOOD ADD-ON Performing Organization Address City/[facility] Phon e Number [facility] - [address] S-TSH (Thyroid-Stimulating Hormone - Sensitive) (09/21/2021 12:11 PM DUB ROOM ENGINEER) athologist [facility] TSH, Sensitive 1.7 0.3 - 4.2 09/21/2021 DTL mIU/L 1:24 PM DUB ROOM ENGINEER Specimen Anatomical Collection Method Collection Time Receive d Time (Source) Location / / Volume Laterality Blood (Blood, 09/21/2021 12:11 09/21/2021 Venous) PM DUB ROOM ENGINEER 12:52 PM DUB ROOM ENGINEER Estrella Sevilla M.D. LAB BLOOD ADD-ON Performing Organization Address City/[facility] Phon e Number [facility] - [address] CBC without Differential (09/21/2021 12:11 PM DUB ROOM ENGINEER) athologist Signature Hemoglobin 14.3 11.6 - 09/21/2021 DTL 15.0 g/dL 12:45 PM DUB ROOM ENGINEER Hematocrit 43.8 35.5 - 09/21/2021 DTL 44.9 % 12:45 PM DUB ROOM ENGINEER Erythrocytes 4.79 3.92 - 09/21/2021 DTL 5.13 12:45 PM DUB ROOM ENGINEER x10(12)/L MCV 91.4 78.2 - 09/21/2021 DTL 97.9 fL 12:45 PM DUB ROOM ENGINEER RBC Distrib Width 13.2 12.2 - 09/21/2021 DTL 16.1 % 12:45 PM DUB ROOM ENGINEER Platelet Count 186 157 - 371 09/21/2021 DTL x10(9)/L 12:45 PM DUB ROOM ENGINEER Leukocytes 6.3 3.4 - 9.6 09/21/2021 DTL x10(9)/L 12:45 PM DUB ROOM ENGINEER Specimen Anatomical Collection Method Collection Time Receive d Time (Source) Location / / Volume Laterality Blood (Blood, 09/21/2021 12:11 09/21/2021 Venous) PM DUB ROOM ENGINEER 12:38 PM DUB ROOM ENGINEER Estrella Sevilla M.D. LAB BLOOD ADD-ON Performing Organization Address City/State/ZIP Code Phon e Number [facility] - [address] [place], [place] [address] [facility] [place] [address] Laboratories-[facility] 200 [facility] 25-Hydroxyvitamin D2 and D3 (09/21/2021 12:11 PM DUB ROOM ENGINEER) athologist Signature 25-Hydroxy D2 <4.0 ng/mL 09/22/2021 SDSC 3:15 PM DUB ROOM ENGINEER 25-Hydroxy D3 44 ng/mL 09/22/2021 SDSC 3:15 PM DUB ROOM ENGINEER 25-Hydroxy D 44 ng/mL 09/22/2021 SDSC Total 3:15 PM DUB ROOM ENGINEER Comment: ----REFERENCE VALUE---- 25-HYDROXY D TOTAL (D2+D3) Optimum level s in the healthy population are 20-50, patients with bone disease may benefit from higher levels within this r [place]. ----ADDITIONAL INFORMATION---- This test was developed and its performa nce characteristics determined by [facility] in a manner consistent with CLIA requirements. This test has not been cleared or approved by the U.[place] Franc[place] d and Drug Administration. Specimen Anatomical Collection Method Collection Time Receive d Time (Source) Location / / Volume Laterality Blood (Blood, 09/21/2021 12:11 09/22/2021 7:15 Venous) PM DUB ROOM ENGINEER AM DUB ROOM ENGINEER Estrella Sevilla M.D. LAB BLOOD ADD-ON Performing Organization Address City/State/ZIP Code Phon e Number [facility] [address] [place] [address] [facility] hospital [place] [address] Laboratory Medicine and Pathology [address] [place] documented in this encounter Visit Diagnoses Diagnosis Goiter Multinodular Nontoxic documented in this encounter
--- OUTSIDE RECORDS SUMMARY | 2022-05-04 10:19 | XMS_ITS | Encounter Summary ---
:1955 Author Organization [facility] Address [address] [place] [address] Care Team Providers Name Role Phone Elsewhere, Pcp Primary Care Provider Unavailable Encounter Details Date Type Department Care Team Description 10/04/2021 Orders Only Division of Endocrine Sindhu Jovel G oiter Multinodular and Metabolic Surgery R.N. Nontoxic (Primary Dx) in [place], [address] [place] [address] [place] [phone] [place], [place] [phone] (Work) [phone] Social History Tobacco Use Types Packs/Day Years [...] or relatives? How often do you attend yazdanism or jew More than 4 time s per year 09/17/2021 services? Do you belong to any clubs or organizations Yes 09/17/2021 such as yazdanism groups, unions, fraternal or athletic groups, or [...] Not on filedocumented as of this encounter Results SARS Coronavirus-2 RNA, V Asymptomatic (10/14/2021 10:27 AM MEDICAL ORDERLY) [facility] Method Time Signature SARS-CoV-2 Swab, 10/14/2021 ECLR Specimen Nasopharynx 10:10 PM Source MEDICAL ORDERLY SARS CoV-2 Undetected Undetected 10/14/2021 ECLR RNA, TMA 10:10 PM MEDICAL ORDERLY Comment: SARS-CoV-2 RNA absent. This result does not rule out COVID-19 in the patient, as the sensitivity of the test depends o n the timing of the specimen collection and the quality of the specim en. Result should be correlated with patient's history and clinical presentat ion. ----ADDITIONAL INFORMATION---- This molecular amplification test was pe rformed using the Aptima SARS-CoV-2 assay ([employer] on the [employer]s tem under emergency use authorization (EUA) by the U.S. Food and Drug Administ ration. Fact sheets for this EUA assay can be fo und at the following links: For Healthcare Providers: https://www.fd a.gov/media/692334/download For Patients: https://www.fda.gov/media/ 328378/download Specimen Anatomical Collection Method Collection Time Receive d Time (Source) Location / / Volume Laterality Varies 10/14/2021 10:27 10/14/2021 2:43 (Nasopharynx) AM MEDICAL ORDERLY PM MEDICAL ORDERLY Paige L Sorgho M.D. LAB MICROBIOLOGY - GENERAL O RDERABLES Performing Organization Address City/State/ZIP Code Phon e Number [facility]- [address] [place] [phone] [facility] [place] [address] System [address] documented in this encounter Visit Diagnoses Diagnosis Goiter Multinodular Nontoxic - Primary documented in this encounter Additional Health Concerns Infection Onset Date Last Indicated Resolved Time COVID19 Pending 10/14/2021 10/14/2021 10/14/2021 10:11 PM MEDICAL ORDERLY documented as of this encounter Care Teams Timers Inspector Relationship Specialty Start Date End Date Elsewhere, Pcp PCP - General Internal Medicine 10/03/21 documented as of this encounter
--- OUTSIDE RECORDS SUMMARY | 2022-05-04 10:19 | XMS_ITS | Encounter Summary ---
:1955 Author Organization [facility] Address [address] [place] [address] Care Team Providers Name Role Phone Unavailable Primary Care Provider Unavailable Reason for Referral Outpatient (Routine) - Closed Specialty Diagnoses / Procedures Referred By Contact Refer red To Contact Endocrinology Diagnoses Goiter Multinodular Nontoxic Lion Carbajal [place] M.D. [address] [place] [address] Referral ID Status Reason Start Date Expiration Date Visits Requ ested Visits Authorized [id number] Closed 08/22/2021 08/22/2022 1 1 MONITOR Reason for Visit Reason Comments Consult Thyroid nodule Appointment Request (Routine) - Closed Specialty Diagnoses / Procedures Referred By Contact Refer red To Contact General Surgery Referral ID Status Reason Start Date Expiration Date Visits Requ ested Visits Authorized [id number] Closed 08/17/2021 08/17/2022 1 1 Encounter Details Date Type Department Care Team Description 08/22/2021 Comprehensive Visit Department of Lion Carbajal General Surgery Jose Alberto Vela Nontoxic (Primary in [place], [address]) [place], [place] [address] [facility] [address] [place], [place] [phone] (Work) [phone] Social History Tobacco Use Types Packs/Day Years [...] How often do you attend judaism or samaritan More than 4 time s per year [...] or slept in a detention (including now)? Sex Assigned at Date Recorded Female 05/11/2021 12:39 PM CDT documented as of this encounter Last Filed Vital Signs Vital Sign Reading Time Taken Comments Blood Pressure 135/71 08/22/2021 3:15 PM PVC MONITOR Pulse 87 08/22/2021 2:32 PM PVC MONITOR Temperature 36.3 ??C (97.3 ??F) 08/22/2021 2:32 PM PVC MONITOR Respiratory Rate - - Oxygen Saturation - - Inhaled Oxygen Concentration - - Weight - - Height - - Body Mass Index - - documented in this encounter Consult Notes Lion Carbajal M.D. - 08/22/2021 3:00 PM CST GENERAL SURGERY CONSULTATION REASON FOR CONSULT Evaluation of Consult (Thyroid nodule). She was referred by Irina Pham CNP. SUBJECTIVE HISTORY OF PRESENT ILLNESS Ms. Tolentino is a 66 y.o. female who presents to surgery clinic today for evaluation of thyroid nodules. She has a longstanding history of thyromegaly, but no history of hyper hypothyroidism. She is not taking thyroid medication. The patient notes a fullness in the central neck, but no discrete nodules. She has had a more recent development of a globus sensation when swallowing. No difficulty breathing.. No changes in voice or hoarseness. No family history of thyroid cancer, but her mother had a history of hypothyroidism. No previous neck surgery. No history of radiation to the neck. She is concerned about hypothyroidism, as she has been recently gaining weight, and notes hair loss and brittle nails. Her primary care provider is Irina Pham CNP of [facility]. Records reviewed in [facility] Everywhere. Patient Active Problem List Diagnosis ??? Dislocation Ankle Closed Initial ??? Injury Head Initial ??? Hyperlipidemia ??? Osteopenia ??? Psoriasis ??? Arthroscopy Shoulder Status Post ??? Cholecystitis ??? Obesity Body Mass Index 30-39.9 Adult ??? Goiter Multinodular Nontoxic Past Surgical History: Procedure Laterality Date ??? CORNEA LACERATION REPAIR ??? KERATOPLASTY ??? LAPAROSCOPIC CHOLECYSTECTOMY WITH CHOLANGIOGRAM N/A 08/14/2017 Procedure: LAPAROSCOPIC CHOLECYSTECTOMY WITH attempted CHOLANGIOGRAM; Surgeon: Augie Feldman D.O.; Location: [facility] OR ??? OPEN TENOTOMY OF EXTENSOR TENDON OF FOREARM N/A 11/27/1997 Incision, extensor tendon sheath, wrist (eg, deQuervains disease).. ??? ORIF ANKLE FRACTURE Right 2001 ??? RELEASE OF TRIGGER FINGER N/A 03/29/1998 Release of trigger finger ??? TONSILLECTOMY AND ADENOIDECTOMY N/A 1960 Tonsillectomy and adenoidectomy Allergies Allergen Reactions ??? Cefuroxime Axetil Hives Current Outpatient Medications: ??? acetaminophen (TYLENOL EXTRA STRENGTH) 500 mg tablet, Take 2 tablets by mouth every 6 (six) hours as needed for pain. , Disp: , Rfl: ??? aspirin [address] tablet, Take 1 tablet by mouth daily., Disp: , Rfl: ??? calcium carbonate-vitamin D3 500 mg(1,250mg) -125 unit per tablet, Take 2 tablets by mouth daily., Disp: , Rfl: ??? liqtnfj-vasqssqhe-cyje tablet, , Disp: , Rfl: ??? cholecalciferol (for_VITAMIN D3) 2,000 Unit capsule, Take 2,000 Units by mouth daily., Disp: , Rfl: ??? ibuprofen (for_ADVIL,MOTRIN) 200 mg tablet, Take 3 tablets by mouth every 6 (six) hours as needed for pain. , Disp: , Rfl: ??? lisinopriL (PRINIVIL,ZESTRIL) 2.5 mg tablet, Daily, Disp: , Rfl: ??? omega-3 fatty acids 1,250 mg capsule, , Disp: , Rfl: ??? RED YEAST RICE ORAL, Take 1 tablet by mouth 2 (two) times a day., Disp: , Rfl: ??? Misc Prescription (Allergy Immunotherapy), Take 2 tablets by mouth daily., Disp: , Rfl: ??? omega 1-xbs-ghz-fish oil 600 mg-216 mg- 324 mg-1,200 mg capsule,delayed release(DR/EC), Take 1 capsule by mouth daily., Disp: , Rfl: Family History Problem Relation Age of Onset ??? Stroke Mother ??? Osteoporosis Mother ??? Dementia Mother ??? Breast cancer Mother ??? Hypertension Mother ??? Hypothyroidism Mother ??? Head injury Mother ??? Prostate cancer Father ??? Coronary artery disease Father ??? Atrial fibrillation Father Social History Socioeconomic History ??? Marital status: Spouse name: Not on file ??? Number of children: Not on file ??? Years of education: Not on file ??? Highest education level: Not on file Occupational History ??? Not on file Tobacco Use ??? Smoking status: Never Smoker ??? Smokeless tobacco: Never Used Substance and Sexual Activity ??? Alcohol use: No Comment: Holidays ??? Drug use: No ??? Sexual activity: Not on file Other Topics Concern ??? Not on file Social History Narrative ??? Not on file Social Determinants of Health Financial Resource Strain: Not on file Food Insecurity: Not on file Transportation Needs: Not on file Physical Activity: Not on file Stress: Not on file Social Connections: Not on file Intimate Partner Violence: Not on file Housing Stability: Not on file REVIEW OF SYSTEMS A full 14 point review of systems was reviewed with the patient. Systems reviewed include: General, HENT, Eyes, Cardiovascular, Respiratory, Gastrointestinal, Genitourinary, Skin, Musculoskeletal, Endocrine, Hematologic, Neurologic, Psychiatric and Allergic. All pertinent items are listed in the History of Present Illness, Past Medical History and Past Surgical History. Patient also notes: All other systems are negative. OBJECTIVE PHYSICAL EXAM Vitals: 08/22/21 1432 08/22/21 1515 BP: 154/63 135/71 Pulse: 87 Temp: 36.3 ??C TempSrc: Temporal GENERAL: Well-developed, well-nourished. In no acute distress. Sitting comfortably in examination room. HEENT: Head is atraumatic, normocephalic. Symmetrical features. External ears and nose normal. Moistmucous membranes. No pharyngeal erythema. EYES: Pupils equal, round, reactive to light. Extraocular motion intact. No scleral icterus. No exophthalmos. NECK: Supple. Trachea is midline. No hoarseness or stridor. Palpable fullness of thyroid gland, but no discrete nodules identified. No palpable cervical or supraclavicular lymph nodes. LUNGS: Normal respiratory effort. No wheezes, crackle, or rales. No cough. No stridor. MUSCULOSKELETAL: Moves all extremities. No deformities or lesions. No peripheral edema. No pretibialmyxedema. SKIN: Warm and dry. No rashes or jaundice. NEUROLOGIC: Alert and oriented x3. Cranial nerves 2 through 12 grossly intact. Normal strength and sensation in all four extremities. PSYCHIATRIC: Normal affect. Pleasant and cooperative. Diagnostics LABORATORY: Reviewed in the electronic medical record under laboratory tab. TSH normal at 1.96 on 11/12/2018. More recent thyroid function tests performed 06/14/2021 at her primary care clinic show TSH 1.57. IMAGING: Reviewed in the electronic medical record. Thyroid ultrasound dated 07/06/2020 is reviewed. Findings include: The right thyroid lobe measures: 3.5 cmx3.8 cmx8.7 cm The left thyroid lobe measures: 2.0 cmx3.1 cmx7.0 cm The isthmus measures: 15 mm in AP diameter. ?? The thyroid parenchyma appears: heterogeneous. ?? A nodule in the lower right thyroid [...] Care Process Model, the nodule has low suspicion for malignancy (1-5%). Additional smaller right smaller right thyroid nodules with similar imaging characteristics in the mid and upper right thyroid lobe measuring 3.0 cm and 2.9 cm. ?? A nodule in the lower left thyroid [...] Care Process Model, the nodule has low suspicion for malignancy (1-5%). Additional smaller left upper thyroid nodule with similar imaging characteristics measures 1.6 cm. ?? A nodule in the mid left thyroid lobe measures 1.1 x 2.2 x 2.1 cm and has the following features: * composition: mixed cystic/solid (0) * echogenicity: isoechoic (0) * shape: not taller than wide (0) * margins: smooth margins (0) * echogenic foci: no echogenic foci (0). The Pinto ultrasound score is 0. Based on the AskMayoExpert Thyroid Nodule Care Process Model, the nodule has low suspicion for malignancy (1-5%). ?? Lymph nodes: No pathologically enlarged lymph nodes are seen in the neck, with evaluation of levels II-V. Thyroid ultrasound 01/13/2011 is reviewed. Findings: Thyroid dimensions are as follows: Right lobe: 7.3 cm x 2.7 cm x 2.5 cm Left lobe: 6.9 cm x 1.8 cm x 2.1 cm Thyroid echotexture: Heterogeneous. Diffusely enlarged heterogeneous thyroid gland without definite discrete nodules. However, multiple septations and hyperemia gives the appearance of multinodular goiter. ASSESSMENT / PLAN Diagnosis Plan 1. Goiter Multinodular Nontoxic Endocrinology - Thyroid nodule or cancer consult (clinic) I discussed my findings with the patient. She has multiple large thyroid nodules bilaterally. Fortunately, these nodules are low suspicion. She has underlying thyromegaly of unknown cause. Her thyroid labs have been normal in the past, although she is concerned that she has subclinical hypothyroidism given her recent weight gain, hair loss, and brittle nails. It is difficult to determine if there aresignificant changes of the thyroid gland comparing most recent ultrasound 2010. I will have the patient see Endocrinology for further evaluation and treatment. An underlying cause of her goiter may be identifiable and treatable. If FNA biopsy is indicated, I recommend the patient undergo this procedure with Radiology in [place], given the complexity with multiple large nodules. The patient is in agreement with this plan. She will schedule the consultation at her convenience. She will contact me with any further questions or concerns. Today, I personally spent 30 minutes with the patient, of which greater than 50% of the time was spent in patient education, counseling, and coordination of care as described above. Lion Carbajal M.D. MONITOR documented in this encounter Plan of Treatment Scheduled Referrals Name Type Priority Associated Diagnoses [facility]ology - Outpatient Routine Goiter Multinodular Expec torrie: Thyroid nodule or Referral Nontoxic 08/22/2021 cancer consult (Approximate) , (clinic) Expires: 11/20/2022 documented as of this encounter Visit Diagnoses Diagnosis Goiter Multinodular Nontoxic - Primary documented in this encounter
--- OUTSIDE RECORDS SUMMARY | 2022-05-04 10:19 | XMS_ITS | Encounter Summary ---
:1955 Author Organization [facility] Address [address] [place] [address] Care Team Providers Name Role Phone Elsewhere, Pcp Primary Care Provider Unavailable Encounter Details Date Type Department Care Team Description 10/04/2021 Ancillary Procedure Department of Otorhinolaryngology Social History [...] or relatives? How often do you attend presybeterian or zoroastrian More than 4 time s per year 09/17/2021 services? Do you belong to any clubs or organizations Yes 09/17/2021 such as presybeterian groups, unions, fraternal or athletic groups, or [...] Date/Time Associated Comments Diagnosis OTORHINOLARYNGOLOGY IMAGE Routine 10/04/2021 10:50 Results for this EXAM AM BANK SECRECY ACT OFFICER procedure are i n the results section. documented in this encounter Results AIRWAY-Otorhinolaryngology Image Exam (10/04/2021 10:50 AM BANK SECRECY ACT OFFICER) Specimen (Source) Anatomical Collection Method Collection Time Re ceived Time Location / / Volume Laterality 10/04/2021 10:50 AM BANK SECRECY ACT OFFICER Narrative [facility] - 10/04/2021 11:00 AM BANK SECRECY ACT OFFICER This order has been created and auto-finalized [...] on filedocumented in this encounter Care Teams Vacuum Pan Tender Relationship Specialty Start Date End Date Elsewhere, Pcp PCP - General Internal Medicine 10/03/21 documented as of this encounter
--- OUTSIDE RECORDS SUMMARY | 2022-05-04 10:19 | XMS_ITS | Encounter Summary ---
:1955 Author Organization [facility] Address [address] [place] [address] Care Team Providers Name Role Phone Unavailable Primary Care Provider Unavailable Reason for Visit Reason Onset Date Comments Testing For Upper Respiratory Virus Symptoms 08/28/2021 Encounter Details Date Type Department Care Team Description 08/28/2021 External Outreach Department of Family Kyra Cosby Contact With And Medicine, Jo PhillipAManoj (Suspected) Exposure Clinic, in [address] To COVID-19 (Primary [place], [place] Dx) [address] [facility] [address] [place], [place] [phone] [phone] (Work) [phone] Social History Tobacco Use Types Packs/Day Years Used Date Smoking Tobacco: Never Smokeless Tobacco: Never Alcohol Use Standard Drinks/Week Comments No 0 (1 standard drink = 0.6 oz pure alcoho l) Holiday Alcohol Habits Answer Date Recorded How often [...] or relatives? How often do you attend mormon or jehovah's witness More than 4 time s per year 09/17/2021 services? Do you belong to any clubs or organizations Yes 09/17/2021 such as mormon groups, unions, fraternal or athletic groups, or [...] to sleep or slept in a senior living (including now)? Sex Assigned at Date Recorded Female 05/11/2021 12:39 PM CDT documented as of this encounter Progress Notes Alexandra Prater R.N. - 08/28/2021 12:58 PM CST Encounter created for symptomatic infectious disease screening with possible COVID, Influenza, RSV, and/or Group A Strep testing. ENTICE PATTERN MAKER documented in this encounter Plan of Treatment Not on filedocumented as of this encounter Procedures Procedure Name Priority Date/Time Associated Diagnosis Comme nts SARS CORONAVIRUS-2 Routine 08/29/2021 10:06 AM Contact With An d Results for this RNA, V APPRENTICE PATTERN MAKER (Suspected) Exposure procedu re are in To COVID-19 the results section. documented in this encounter Results SARS Coronavirus-2 RNA, V Symptomatic (08/29/2021 10:06 AM APPRENTICE PATTERN MAKER) [facility] Method Time Signature SARS-CoV-2 Swab, 08/30/2021 ECLR Specimen Nasopharynx 2:16 AM APPRENTICE PATTERN MAKER Source SARS CoV-2 Undetected Undetected 08/30/2021 ECLR RNA, TMA 2:16 AM APPRENTICE PATTERN MAKER Comment: SARS-CoV-2 RNA absent. This result does not rule out COVID-19 in the patient, as the sensitivity of the test depends o n the timing of the specimen collection and the quality of the specim en. Result should be correlated with patient's history and clinical presentat ion. ----ADDITIONAL INFORMATION---- This molecular amplification test was pe rformed using the Aptima SARS-CoV-2 assay ([employer] on the Gamma 2 Roboticss tem under emergency use authorization (EUA) by the U.S. Food and Drug Administ emmie. Fact sheets for this EUA assay can be fo und at the following links: For Healthcare Providers: https://www.fd a.gov/media/069629/download For Patients: https://www.fda.gov/media/ 834281/download Specimen Anatomical Collection Method Collection Time Receive d Time (Source) Location / / Volume Laterality Varies 08/29/2021 10:06 08/29/2021 2:37 (Nasopharynx) AM APPRENTICE PATTERN MAKER PM APPRENTICE PATTERN MAKER Ramón Cosby P.A.-C. LAB MICROBIOLOGY - GENERAL O SHANNANERABLES Performing Organization Address City/State/ZIP Code Phon e Number [facility]- [address] [place] [address] [address] [facility] [place] [address] System in [address] documented in this encounter Visit Diagnoses Diagnosis Contact With And (Suspected) Exposure To COVID-19 - Primary documented in this encounter Additional Health Concerns Infection Onset Date Last Indicated Resolved Time COVID19 Pending 08/28/2021 08/29/2021 08/30/2021 2:17 AM APPRENTICE PATTERN MAKER documented as of this encounter
--- OUTSIDE RECORDS SUMMARY | 2022-05-04 10:19 | XMS_ITS | Encounter Summary ---
:1955 Author Organization [facility] Address [address] [place] [address] Care Team Providers Name Role Phone Unavailable Primary Care Provider Unavailable Encounter Details Date Type Department Care Team Description 09/21/2021 Hospital Encounter Department of Estrella Sevilla Goiter Multinodular Laboratory Medicine M.DNaomi Nontoxic and Pathology, [address] [place] [address] in [place], [place] [address] [place] [address] [place], [place] (Work) [phone] Social History Tobacco Use Types Packs/Day Years [...] or relatives? How often do you attend restoration or orthodox More than 4 time s per year 09/17/2021 services? Do you belong to any clubs or organizations Yes 09/17/2021 such as restoration groups, unions, fraternal or athletic groups, or [...] Immunotherapy) as needed (allergies). Homeopathic remedy drops omega-3 fatty acids 1,250 Take 1,200 mg by 0 mg capsule mouth daily. RED YEAST RICE ORAL Take 1 tablet by 0 mouth 2 (two) times a day. calcium carbonate-vitamin Take 2 tablets by 0 02/200210/03/2021 D3 500 mg(1,250mg) -125 mouth daily. unit per tablet iliobnt-lqwbqqzvr-nalb Take 3 tablets by 0 10/18/2021 tablet mouth daily. Calcium 1000 mg/magnesium 500 mg/zinc 25 mg cholecalciferol Take 2,000 Units by 0 10/18/2021 (for_VITAMIN D3) 2,000 mouth daily. Unit capsule omega 3-lwi-zdd-fish oil Take 1 capsule by 0 10/1910/03/2021 600 mg-216 mg- 324 mouth daily. mg-1,200 mg capsule,delayed release(DR/EC) documented as of this encounter Plan of Treatment Not on filedocumented as of this encounter Procedures Procedure Name Priority Date/Time Associated Diagnosis Comme nts 25-HYDROXYVITAMIN Routine 09/21/2021 12:11 Goiter Multinodular Results for this D2 AND D3, S PM AERIAL PHOTOGRAPHER Nontoxic procedure are i n the results section. CBC WITHOUT Routine 09/21/2021 12:11 Goiter Multinodular Resu lts for this DIFFERENTIAL, B PM AERIAL PHOTOGRAPHER Nontoxic procedure ar e in the results section. THYROID-STIMULATING Routine 09/21/2021 12:11 Goiter Multinodul ar Results for this HORMONE-SENSITIVE PM AERIAL PHOTOGRAPHER Nontoxic procedure are in (S-TSH) the results section. T4 (THYROXINE), Routine 09/21/2021 12:11 Goiter Multinodular R esults for this FREE, S PM AERIAL PHOTOGRAPHER Nontoxic procedure are i n the results section. CALCIUM, TOT, S/P Routine 09/21/2021 12:11 Goiter Multinodular Results for this PM AERIAL PHOTOGRAPHER Nontoxic procedure are i n the results section. documented in this encounter Results T4 (Thyroxine), Free (09/21/2021 12:11 PM AERIAL PHOTOGRAPHER) athologist Signature T4 (Thyroxine), 1.2 0.9 - 1.7 09/21/2021 DTL Free, S ng/dL 1:24 PM AERIAL PHOTOGRAPHER Specimen Anatomical Collection Method Collection Time Receive d Time (Source) Location / / Volume Laterality Blood (Blood, 09/21/2021 12:11 09/21/2021 Venous) PM AERIAL PHOTOGRAPHER 12:52 PM AERIAL PHOTOGRAPHER Estrella Sevilla M.D. LAB BLOOD ADD-ON Performing Organization Address City/State/ZIP Code Phon e Number [facility] - [address] [place], [place] [address] [address] [place] [address] Laboratories-[facility] [address] Calcium, Total (09/21/2021 12:11 PM AERIAL PHOTOGRAPHER) athologist Signature Calcium, Total, 9.0 8.8 - 10.2 09/21/2021 DTL S mg/dL 1:24 PM AERIAL PHOTOGRAPHER Specimen Anatomical Collection Method Collection Time Receive d Time (Source) Location / / Volume Laterality Blood (Blood, 09/21/2021 12:11 09/21/2021 Venous) PM AERIAL PHOTOGRAPHER 12:52 PM AERIAL PHOTOGRAPHER Estrella Sevilla M.D. LAB BLOOD ADD-ON Performing Organization Address City/[facility] Phon e Number [facility] - [address] [place], [place] [address] [place] [address] Laboratories-[address] S-TSH (Thyroid-Stimulating Hormone - Sensitive) (09/21/2021 12:11 PM AERIAL PHOTOGRAPHER) athologist Signature TSH, Sensitive 1.7 0.3 - 4.2 09/21/2021 DTL mIU/L 1:24 PM AERIAL PHOTOGRAPHER Specimen Anatomical Collection Method Collection Time Receive d Time (Source) Location / / Volume Laterality Blood (Blood, 09/21/2021 12:11 09/21/2021 Venous) PM AERIAL PHOTOGRAPHER 12:52 PM AERIAL PHOTOGRAPHER Estrella Sevilla M.D. LAB BLOOD ADD-ON Performing Organization Address City/[facility] Phon e Number [facility] - [address] [place], [place] [address] [place] [address] Laboratories-[address] CBC without Differential (09/21/2021 12:11 PM AERIAL PHOTOGRAPHER) athologist Signature Hemoglobin 14.3 11.6 - 09/21/2021 DTL 15.0 g/dL 12:45 PM AERIAL PHOTOGRAPHER Hematocrit 43.8 35.5 - 09/21/2021 DTL 44.9 % 12:45 PM AERIAL PHOTOGRAPHER Erythrocytes 4.79 3.92 - 09/21/2021 DTL 5.13 12:45 PM AERIAL PHOTOGRAPHER x10(12)/L MCV 91.4 78.2 - 09/21/2021 DTL 97.9 fL 12:45 PM AERIAL PHOTOGRAPHER RBC Distrib Width 13.2 12.2 - 09/21/2021 DTL 16.1 % 12:45 PM AERIAL PHOTOGRAPHER Platelet Count 186 157 - 371 09/21/2021 DTL x10(9)/L 12:45 PM AERIAL PHOTOGRAPHER Leukocytes 6.3 3.4 - 9.6 09/21/2021 DTL x10(9)/L 12:45 PM AERIAL PHOTOGRAPHER Specimen Anatomical Collection Method Collection Time Receive d Time (Source) Location / / Volume Laterality Blood (Blood, 09/21/2021 12:11 09/21/2021 Venous) PM AERIAL PHOTOGRAPHER 12:38 PM AERIAL PHOTOGRAPHER Estrella Sevilla M.D. LAB BLOOD ADD-ON Performing Organization Address City/[facility] Phon e Number [facility] - [address] [place], [place] [address] [place] [address] Laboratories-[facility] [address] 25-Hydroxyvitamin D2 and D3 (09/21/2021 12:11 PM AERIAL PHOTOGRAPHER) athologist Signature 25-Hydroxy D2 <4.0 ng/mL 09/22/2021 SDSC 3:15 PM AERIAL PHOTOGRAPHER 25-Hydroxy D3 44 ng/mL 09/22/2021 SDSC 3:15 PM AERIAL PHOTOGRAPHER 25-Hydroxy D 44 ng/mL 09/22/2021 SDSC Total 3:15 PM AERIAL PHOTOGRAPHER Comment: ----REFERENCE VALUE---- 25-HYDROXY D TOTAL (D2+D3) Optimum level s in the healthy population are 20-50, patients with bone disease may benefit from higher levels within this r [place]. ----ADDITIONAL INFORMATION---- This test was developed and its performa nce characteristics determined by [facility] in a manner consistent with CLIA requirements. This test has not been cleared or approved by the U.S. Franci d and Drug Administration. Specimen Anatomical Collection Method Collection Time Receive d Time (Source) Location / / Volume Laterality Blood (Blood, 09/21/2021 12:11 09/22/2021 7:15 Venous) PM AERIAL PHOTOGRAPHER AM AERIAL PHOTOGRAPHER Estrella Sevilla M.D. LAB BLOOD ADD-ON Performing Organization Address City/State/ZIP Code Phon e Number [facility] [address] [place], [place] [address] [facility] [place] [address] Laboratory Medicine and Pathology [address] [place] documented in this encounter Visit Diagnoses Diagnosis Goiter Multinodular Nontoxic documented in this encounter
--- OUTSIDE RECORDS SUMMARY | 2022-05-04 10:19 | XMS_ITS | Encounter Summary ---
:1955 Author Organization [facility] Address [address] [place] [address] Care Team Providers Name Role Phone Unavailable Primary Care Provider Unavailable Reason for Referral Outpatient (Routine) - Pending Review Specialty Diagnoses / Procedures Referred By Contact Refer red To Contact Diagnoses Goiter Multinodular Nontoxic Zelda Dang M.D. Procedures FNA Neck [address] [place] [address] Referral ID Status Reason Start Date Expiration Date Visits V isits Requested Authorized [id number] Pending 09/21/2021 09/21/2022 1 1 Review GER BEHAVIOR Reason for Visit Reason Comments Other END Thyroid USG Outpatient (Routine) - Closed Specialty Diagnoses / Procedures Referred By Contact Refer red To Contact Diagnoses Goiter Multinodular Nontoxic Estrella Sevilla M.D. [facility] Procedures END Thyroid USG [address] [place] [address] Referral ID Status Reason Start Date Expiration Date Visits Requ ested Visits Authorized [id number] Closed 09/21/2021 09/21/2022 1 1 Encounter Details Date Type Department Care Team Description 09/21/2021 Procedure visit Division of Estrella Sevilla M .D. [address] [place] [phone] Goiter Multinodular Endocrinology in Zelda Dang M.D. [address] [place] [address] Nontoxic [place], [place] [address] [place] [address] Social History Tobacco Use Types Packs/Day Years [...] How often do you attend moravian or restorationist More than 4 time s per year [...] place to sleep or slept in a long-term (including now)? Education Answer Date Recorded What is the highest level of school Bachelor's degree (e.g., BA, AB, 09/17/2021 you have completed or the highest BS) degree you have received? Sex Assigned at Date Recorded Female 05/11/2021 12:39 PM CDT documented as of this encounter Progress Notes Braydon Dos Santos R.N. - 09/21/2021 11:00 AM CST REASON FOR VISIT Colleen Tolentino presents for a Fine Needle Aspiration of the Right thyroid nodule and Left thyroid nodule. HISTORY OF PRESENT ILLNESS Anticoagulation therapy: No. Recent INR: NA. Previous reaction to topical anesthetic: No History of easy bruising or bleeding: No ASSESSMENT Pain Score Pre-procedure: 0/10 Pain Score Post-procedure: 0/10 Please see Education Activity within medical record for completed patient education. GER BEHAVIOR documented in this encounter Procedure Notes Zelda Dang M.D. - 09/21/2021 11:00 AM CSTAssociated Order(s): FNA Neck Post-Procedure Diagnose(s): Goiter Multinodular Nontoxic FNA Neck Date/Time: 09/21/2021 12:00 PM Performed by: Zelda Dang M.D. Authorized by: Zelda Dang M.D. Care team members present 1. Braydon Dos Santos R.N. 2. Estrella Sevilla M.D. PROCEDURE DETAILS Number of FNA sites: 2 Ultrasound image guidance used to localize target, identify at risk structures, and dynamically usedto direct therapy to the target. Image(s) acquired and saved. FNA Site 1 Fine needle aspiration site: thyroid Thyroid laterality and pole location: right lower 25 gauge needle inserted this many times: 6 FNA Site 2 Fine needle aspiration site: thyroid Thyroid laterality and pole location: left lower 25 gauge needle inserted this many times: 6 CONSENT Consent obtained: verbal Consent given by: patient The benefits, risks and alternatives to the procedure and the potential need for sedation or anesthesia as well as the names, roles, and responsibilities of healthcare team members performing significant interventional tasks were discussed with the patient and/or decision maker. UNIVERSAL PROTOCOL All relevant documentation and testing were reviewed and available. All required blood products, implants, devices and or special equipment were made available as applicable. Pre-procedure verificationwas conducted and the correct site was marked if required. A fire risk assessment was done as applicable. The procedural time-out was conducted prior to performing the procedure and confirmed in a procedural pause. PRE-PROCEDURE DETAILS Indications: thyroid nodule Appropriate hand hygiene, gown, cap, mask, protective eyewear, sterile gloves, skin preparation, sterile drape, and strict aseptic technique were utilized as applicable for the procedure.: yes Site preparation: chlorhexidine SEDATION / ANESTHESIA Anesthesia method: topical application Topical application type: lidocaine POST-PROCEDURE DETAILS Procedure completed successfully: yes Complications: no apparent complications Comments The procedure was performed under ultrasound guidance. Images identifying the location of the needleplacement where obtained and stored. Six passes were made into a dominant nodule located in the right lower lobe measuring approximately 3.5 cm. An additional six passes were made into a dominant nodule measuring approximately 3 cm located in the left lower lobe. Patient tolerated the procedure well. Post procedure pain 0/10 GER BEHAVIOR documented in this encounter Plan of Treatment Not on filedocumented as of this encounter Procedures Procedure Name Priority Date/Time Associated Diagnosis Comme nts MA FNA BX W/US GDN Routine 09/21/2021 12:00 Goiter Multinodula r Results for this EA ADDL PM MANAGER BEHAVIOR Nontoxic procedure are i n the results section. MA FNA BX W/US GDN Routine 09/21/2021 12:00 Goiter Multinodula r Results for this 1ST LES PM MANAGER BEHAVIOR Nontoxic procedure are i n the results section. CYTOLOGY FINE Routine 09/21/2021 10:46 Goiter Multinodular Res ults for this NEEDLE ASPIRATION AM MANAGER BEHAVIOR Nontoxic procedure are in (INCLUDES CORE the results BIOPSIES section. documented in this encounter Results MA FNA BX W/US GDN 1ST LES, MA FNA BX W/US GDN EA ADDL (09/21/2021 12:00 PM MANAGER BEHAVIOR) Narrative MMODAL - 09/21/2021 12:00 PM MANAGER BEHAVIOR Zelda Dang M.D. ? 09/22/2021 ??7:57 AM FNA Neck Date/Time: 09/21/2021 12:00 PM Performed by: Zelda Dang M.D. Authorized by: Zelda Dang M.D. Care team members present 1. Braydon Dos Santos R.N. 2. Estrella Sevilla M.D. PROCEDURE DETAILS Number of FNA sites: 2 Ultrasound image guidance used to locali ze target, identify at risk structures, and dynamically used to dire ct therapy to the target. Image(s) acquired and saved. FNA Site 1 Fine needle aspiration site: thyroid Thyroid laterality and pole location: ri ght lower 25 gauge needle inserted this many times : 6 FNA Site 2 Fine needle aspiration site: thyroid Thyroid laterality and pole location: le ft lower 25 gauge needle inserted this many times : 6 CONSENT Consent obtained: verbal Consent given by: patient The benefits, risks and alternatives to the procedure and the potential need for sedation or anesthesia as well as the names, roles, and responsibilities of healthcare team memb ers performing significant interventional tasks were discussed with the patient and/or decision maker. UNIVERSAL PROTOCOL All relevant documentation and testing w ere reviewed and available. All required blood products, implants, devic es and or special equipment were made available as applicable. Pre-proced ure verification was conducted and the correct site was marked if required. A fire risk assessment was done as applicable. The procedural time-out w as conducted prior to performing the procedure and confirmed in a procedu ral pause. PRE-PROCEDURE DETAILS Indications: thyroid nodule Appropriate hand hygiene, gown, cap, mas k, protective eyewear, sterile gloves, skin preparation, sterile drape, and strict aseptic technique were utilized as applicable for the procedure .: yes ?? Site preparation: chlorhexidine SEDATION / ANESTHESIA Anesthesia method: topical application Topical application type: lidocaine POST-PROCEDURE DETAILS ?? Procedure completed successfully: yes ?? Complications: no apparent complications Comments The procedure was performed under ultras ound guidance. ??Images identifying the location of the needle placement whe re obtained and stored. Six passes were made into a dominant nod ule located in the right lower lobe measuring approximately 3.5 cm. ??A n additional six passes were made into a dominant nodule measuring approxi mately 3 cm located in the left lower lobe. ??Patient tolerated the proc edure well. ??Post procedure pain 0/10 Zelda Dang M.D. PROCEDURE/MINOR SURGICAL ORD ERABLES Performing Organization Address City/State/ZIP Code Phon e Number MMODAL MMODAL NA Cytology Fine Needle Aspiration (including core biopsies) (09/21/2021 10:46 AM MANAGER BEHAVIOR) Component Value Ref Test Analysis Performed At [facility] gist Range Method Time Signature 09/21/2021 DTL 2:09 PM MANAGER BEHAVIOR Participated in Josh Nance 09/21/2021 DTYani the Interpretation Jose Alberto-Patholog 2:09 PM MANAGER BEHAVIOR y Resident Report Elizabeth Green M.D. 09/21/2021 DTL electronically 2:09 PM MANAGER BEHAVIOR signed by I verify that I have examined all relevant slides/materials for the specimen(s) and rendered or confirmed the diagnosis. Gross Description A: ?? Received 16 alcohol-fixed smears. 09/21/2021 DTL 2:09 PM MANAGER BEHAVIOR B: ?? Received 13 alcohol-fixed smears. Source A. Thyroid, Right, fine needle aspiration 09/21/2021 DTL 2:09 PM MANAGER BEHAVIOR B. Thyroid, Left, fine needle aspiration Interpretation A. Thyroid, Right, fine needle aspiration (smears): 09/21/2021 DTL Negative 2:09 PM MANAGER BEHAVIOR for malignancy. Cytologic features consistent with benign thyroid nodule. B. Thyroid, Left, fine needle aspiration (smears): Negative for malignancy. Cytologic features consistent with benign thyroid nodule. Specimen (Source) Anatomical Collection Method Collection Time Re ceived Time Location / / Volume Laterality Aspirate 09/21/2021 10:46 (Thyroid, Right) AM MANAGER BEHAVIOR Aspirate 09/21/2021 10:47 (Thyroid, Left) AM MANAGER BEHAVIOR Narrative This result has an attachment that is no t available. Estrella Sevilla M.D. LAB SURG PATH ORDERABLES Performing Organization Address City/State/ZIP Code Phon e Number [facility] - [address] [place], [place] [address] [facility] [place] [place] [address] [facility] [address] documented in this encounter Visit Diagnoses Diagnosis Goiter Multinodular Nontoxic documented in this encounter Administered Medications Inactive Administered Medications - up to 3 most recent administrations Medication Order MAR Action Action Date Dose Rate Site lidocaine 4 % cream 1 Given 09/21/2021 10:37 AM 1 application application (LMX) MANAGER BEHAVIOR 1 application (5 g), topical, As needed, Apply for local anesthesia, Starting on Sun09/21/21 at 0932 documented in this encounter
--- OUTSIDE RECORDS SUMMARY | 2022-05-04 10:20 | XMS_ITS | Encounter Summary ---
:1955 Author Organization [facility] Address [address] [place] [address] Care Team Providers Name Role Phone Unavailable Primary Care Provider Unavailable Encounter Details Date Type Department Care Team Description 08/17/2017 Abstract Department of Neurological Provider, [facility] orical Surgery in [address] [phone] Social History Tobacco Use Types Packs/Day Years [...] or relatives? How often do you attend sabianist or oriental orthodox More than 4 time s per year 09/17/2021 services? Do you belong to any clubs or organizations Yes 09/17/2021 such as sabianist groups, unions, fraternal or athletic groups, or [...]
--- OUTSIDE RECORDS SUMMARY | 2022-05-04 10:20 | XMS_ITS | Encounter Summary ---
:1955 Author Organization [facility] Address [address] [place] [address] Care Team Providers Name Role Phone Unavailable Primary Care Provider Unavailable Reason for Visit Reason Comments TIFFANIE Nurse Line Encounter Details Date Type Department Care Team Description 05/11/2021 Clinical Communication Division of Jennie Hatch Nurse Line Formerly [facility], [facility] Internal C, R.N. [address] [address] [place] [address] [place], [place] (Work) [phone] Social History Tobacco Use Types Packs/Day Years [...] or relatives? How often do you attend rastafari or congregational More than 4 time s per year 09/17/2021 services? Do you belong to any clubs or organizations Yes 09/17/2021 such as rastafari groups, unions, fraternal or athletic groups, or [...] or slept in a residential (including now)? Sex Assigned at Date Recorded Female 05/11/2021 12:39 PM CDT documented as of this encounter Miscellaneous Notes Telephone Encounter - Jennie Hatch R.N. - 05/11/2021 11:59 AM CDT COVID-19 Nurse Line Screening ASSESSMENT Region Select appropriate region: : [place] Age Pathway Select approprite pathway: : Adult Have you had close contact* with a person who has a LABORATORY CONFIRMED case of COVID-19 in the past 14 days?: Yes- provide quarantine instructions unless exceptions met. (Continue Screening) In the last 48 hours, have you had a fever* OR symptoms that are unrelated to a preexisting illness?: New diarrhea Have you received a COVID-19 vaccine in the last 72 hours? : No vaccine received (Continue Screening) Do you have any of the following urgent symptoms?: No urgent symptoms noted (Continue Screening) Have you tested positive for COVID-19 in the last 45 days?: No (Continue Screening) Are ALL the following criteria met: age between 18 to 75 yrs, main symptom is a sore throat with duration of 24 hrs to 7 days, onset of sore throat not associated with new upper respiratory symptoms*? : No, COVID testing is recommended (End Screening) Symptom Onset Date of symptom onset: 05/08/21 Testing Recommendation Endpoint Is testing recommended? : Recommended to test PLAN Endpoint recommendation: Symptomatic testing indicated, advised to be swabbed for COVID-19 Only , sent to [facility] located at [address]. An appointment is required for testing, please call [phone] Sunday- Sunday 7am to 6pm and Sunday & Sunday 9am to 4pm to schedule an appointment. Testing hours are 8am - 4:30pm daily. You can also schedule via your Patient Online Services account. and Please avoid using public transportation per CDC recommendation. If you do not have personal transportation please self- quarantine until a personal transportation option is available. Standard Care Points -Get a COVID -19 vaccine as soon as you can if not fully vaccinated. -Wash hands frequently with soap and water, use hand layer out if soap and water aren't available. -Wear a mask over your nose and mouth to help protect yourself and others if not fully vaccinated and having no symptoms -Stay 6 feet between yourself and others who don't live with you. -Avoid crowds and poorly ventilated indoor spaces. -Seek emergent care if any of the following occur Trouble breathing Bluish lips or face Persistent pain or pressure in the chest New confusion or inability to rouse. -Notify your regular care provider of any new or worsening symptoms. Symptomatic Carepoints: Stay home and separate yourself from others and stay in a specific sick room if able. Avoid sharing personal or household items. Rest. Hydrate. Take Acetaminophen/Ibuprofen asneeded to control fever and muscles aches. Use over the counter medications as needed for other symptoms. If you have received a negative COVID-19 test result and continue to have new or worsening symptoms after 72 hours please call the COVID Nurse Line to assess if you need repeat testing or reach out to your Primary Care Provider for guidance. Exposure Carepoints: If you are fully vaccinated (last dose was greater than 14 days) quarantine is not needed if you remain without symptoms. Testing is rec ommended if you become symptomatic at any point. Education: Patient/caregiver able to teach back Patient agreeable to plan of care: Yes The following references were used: [facility] novel coronavirus (COVID- 19) resources Nursing judgement documented in this encounter Plan of Treatment Not on filedocumented as of this encounter Visit Diagnoses Not on filedocumented in this encounter
--- OUTSIDE RECORDS SUMMARY | 2022-05-04 10:20 | XMS_ITS | Encounter Summary ---
:1955 Author Organization [facility] Address [address] [place] [address] Care Team Providers Name Role Phone Unavailable Primary Care Provider Unavailable Reason for Visit Reason Comments Eye Exam Appointment Request (Routine) - Closed Specialty Diagnoses / Procedures Referred By Contact Refer red To Contact Ophthalmology Referral ID Status Reason Start Date Expiration Date Visits Requ ested Visits Authorized [id number] Closed 04/19/2020 04/19/2021 1 1 Encounter Details Date Type Department Care Team Description 06/01/2020 Comprehensive Visit Department of Magen Michaelsop ia Bilateral (Primary Dx); Ophthalmology in [place] Solis Del Real O.D. Astigma tism Regular Bilateral; [place] Presbyopia; [address] Age Related [place] [address] Social History Tobacco Use Types Packs/Day Years [...] or relatives? How often do you attend congregational or spiritism More than 4 time s per year 09/17/2021 services? Do you belong to any clubs or organizations Yes 09/17/2021 such as congregational groups, unions, fraternal or athletic groups, or [...] place to sleep or slept in a prison (including now)? Sex Assigned at Date Recorded Female 05/11/2021 12:39 PM CDT documented as of this encounter Progress Notes Solis Michaels O.D. - 06/01/2020 1:00 PM CDT Colleenmeño Tolentino was seen today for Eye Exam #1 Hyperopia Bilateral #2 Astigmatism Regular Bilateral #3 Presbyopia #4 Age Related Nuclear Cataract Bilateral Impression shift in hyperopic astigmatism presbyopia. Moderate cataracts in each eye causing changesin vision. Health of each eye normal. Plan: Manifest refraction of +2.50 add was given to wear as needed. Recheck with full exam in 2 years sooner if problems. documented in this encounter Plan of Treatment Not on filedocumented as of this encounter Visit Diagnoses Diagnosis Hyperopia Bilateral - Primary Astigmatism Regular Bilateral Presbyopia Age Related Nuclear Cataract Bilateral documented in this encounter
--- OUTSIDE RECORDS SUMMARY | 2022-05-04 10:20 | XMS_ITS | Encounter Summary ---
:1955 Author Organization [facility] Address [address] [place] [address] Care Team Providers Name Role Phone Unavailable Primary Care Provider Unavailable Reason for Visit Reason Comments Follow-up right foot neuroma returned new orthotics? Encounter Details Date Type Department Care Team Description 11/21/2018 [facility] To e Acquired Right (Primary Dx); Orthopedic Surgery in [place] Neurom a; Ezekiel Beasley D.P.M. Pronation Foot Left; [address] Pronation Foot Right; [place] Metatarsalgia L eft; [phone] Metatarsalgia Right [phone] Social History Tobacco Use Types Packs/Day Years [...] or relatives? How often do you attend nondenominational or gnosticism More than 4 time s per year 09/17/2021 services? Do you belong to any clubs or organizations Yes 09/17/2021 such as nondenominational groups, unions, fraternal or athletic groups, or [...] place to sleep or slept in a [place] [facility] [place] (including now)? Sex Assigned at Date Recorded Female 05/11/2021 12:39 PM CDT documented as of this encounter Progress Notes Ana Saucedo D.P.M. - 11/21/2018 3:45 PM CDT SUBJECTIVE CHIEF COMPLAINT/REASON FOR VISIT No chief complaint on file. HISTORY OF PRESENT ILLNESS Colleen presents today for : Questions about orthotics and neuroma right foot. Patient has worn custom orthotics over the years which have provided good relief for her painful neuroma right foot. She has a concern that her orthotics are old and her feet have gotten longer.. REVIEW OF SYSTEMS negative CURRENT MEDICATIONS Current Outpatient Prescriptions on File Prior to Visit Medication Sig Dispense Refill ??? acetaminophen (TYLENOL EXTRA STRENGTH) 500 mg tablet Take 2 tablets by mouth every 6 (six) hoursas needed for pain. ??? aspirin [address] tablet Take 1 tablet by mouth daily. ??? calcium carbonate-vitamin D3 500 mg(1,250mg) -125 unit per tablet Take 2 tablets by mouth daily. ??? cholecalciferol (for_VITAMIN D3) 2,000 Unit capsule Take 2,000 Units by mouth daily. ??? ibuprofen (for_ADVIL,MOTRIN) 200 mg tablet Take 3 tablets by mouth every 6 (six) hours as neededfor pain. ??? Misc Prescription (Allergy Immunotherapy) Take 2 tablets by mouth daily. ??? omega 7-tvj-pga-fish oil 600 mg-216 mg- 324 mg-1,200 mg capsule,delayed release(DR/EC) Take 1 capsule by mouth daily. No current facility-administered medications on file prior to visit. PROBLEMS: Patient Active Problem List Diagnosis ??? Dislocation Ankle Closed Initial ??? Injury Head Initial ??? Hyperlipidemia ??? Osteopenia ??? Psoriasis ??? Arthroscopy Shoulder Status Post ??? Cholecystitis ??? Obesity Body Mass Index 30-39.9 Adult ALLERGIES/CONTRAINDICATIONS Allergies Allergen Reactions ??? Cefuroxime Axetil Hives OBJECTIVE VITAL SIGNS There were no vitals taken for this visit. PHYSICAL EXAMINATION General Appearance: Colleen is well nourished, well groomed, cooperative, alert and is in no acute distress. Lower Extremity Physical Exam: Musculoskeletal: Rigid hammertoe deformity and varus position to the right 2nd digit. Have a difficult time plantar flexing the proximal phalanx rectus due to tightness. The 2nd digit does not overlap the hallux. Patient describes pain with compression to the 2nd metatarsophalangeal joint. She also describes pain with compression to the 2nd web space. Pronation bilateral. Motor strength normal and symmetric graded at 5/5. No gross deformities or dislocations. Rectus foot structure. Gait: normal gaitfor age. Neurological: Patient describes altered sensation to the right 2nd 3rd digit. Coordination within normal limits. Patient is able to follow tasks as directed. Dermatological: Lower extremity: Skin evaluation: Scaling atrophic skin changes with patient historyof psoriasis. Vascular: Control peripheral edema, digits warm to touch X 10. ASSESSMENT / PLAN 1. Hammer Toe Acquired Right 2. Neuroma 3. Pronation Foot Left 4. Pronation Foot Right 5. Metatarsalgia Left 6. Metatarsalgia Right PLAN: Discussed with the patient clinical findings and symptoms of her rigid hammertoe deformity to the right foot. Discussed that her symptoms are likely related to the instability at the metatarsophalangeal joint. She states she has done well with her metatarsal pads. Prescription is provided for new orthotics with metatarsal pads. Recommend she begin using a digital splint to hold the 2nd digit marcella rectus position at the metatarsophalangeal joint. Reviewed with the patient hammertoe deformities and she may need to consider surgery in the future. Assessment for Colleen will be ongoing with changes in treatment as indicated. Colleen will follow with Podiatry as needed. All questions answered. documented in this encounter Plan of Treatment Not on filedocumented as of this encounter Visit Diagnoses Diagnosis Hammer Toe Acquired Right - Primary Neuroma Pronation Foot Left Pronation Foot Right Metatarsalgia Left Metatarsalgia Right documented in this encounter
--- OUTSIDE RECORDS SUMMARY | 2022-05-04 10:20 | XMS_ITS | Encounter Summary ---
:1955 Author Organization [facility] Address [address] [place] [address] Care Team Providers Name Role Phone Unavailable Primary Care Provider Unavailable Encounter Details Date Type Department Care Team Description 06/24/2019 Hospital Encounter Department of Irina Pham, [place] Radiology in [address] [id number] [phone] Social History Tobacco Use Types Packs/Day Years [...] or relatives? How often do you attend taoism or baptism More than 4 time s per year 09/17/2021 services? Do you belong to any clubs or organizations Yes 09/17/2021 such as taoism groups, unions, fraternal or athletic groups, or [...] or slept in a halfway (including now)? Sex Assigned at Date Recorded [...] (six) tablet hours as needed for pain. Misc Prescription Take 1 each by mouth 0 06/27/20 12 (Allergy Immunotherapy) as needed (allergies). Homeopathic remedy drops calcium carbonate-vitamin Take 2 tablets by 0 02/200210/03/2021 D3 500 mg(1,250mg) -125 mouth daily. unit per tablet cholecalciferol Take 2,000 Units by 0 10/18/2021 (for_VITAMIN D3) 2,000 mouth daily. Unit capsule omega 5-cpl-apa-fish oil Take 1 capsule by 0 10/1910/03/2021 600 mg-216 mg- 324 mouth daily. mg-1,200 mg capsule,delayed release(DR/EC) documented as of this encounter Plan of Treatment Not on filedocumented as of this encounter Procedures Procedure Name Priority Date/Time Associated Comments Diagnosis US CAROTID RAD - Routine 06/24/2019 10:37 [place] Results fo r this BILATERAL (most inpatients AM ADOLESCENT PSYCHIATRIST procedure a re in and all the results outpatients) section. documented in this encounter Results US Carotid Bilateral (06/24/2019 10:37 AM ADOLESCENT PSYCHIATRIST) Anatomical Region Laterality Modality Head and Neck, Ultrasound RST LOS, Ultrasound ARZ LOS, Bilat eral Ultrasound Neuroradiology FLA LOS Specimen (Source) Anatomical Collection Method Collection Time Re ceived Time Location / / Volume Laterality 06/24/2019 10:41 AM ADOLESCENT PSYCHIATRIST Impressions 06/24/2019 10:44 AM ADOLESCENT PSYCHIATRIST Less than 50% stenosis of the right and left internal carotid arteries by velocity criteria. Narrative 06/24/2019 10:44 AM ADOLESCENT PSYCHIATRIST EXAM: US CAROTID BILATERAL Exam performed with color and spectral D oppler analysis. COMPARISON: FINDINGS: RIGHT: Minimal plaque LEFT: Minimal plaque VELOCITIES (cm/sec) Right CCA *psv: ??86 cm/s Right ICA psv: 77 cm/s Right ICA edv: 30 cm/s Right ECA psv: 75 cm/s Right ICA/CCA: 0.9 Left CCA *psv: 76 cm/s Left ICA psv: 77 cm/s Left ICA edv: ??26 cm/s Left ECA psv: ??63 cm/s Left ICA/CCA: 1.0 ?? *mid/distal (non-diseased) Measurement of a carotid stenosis, if pr esent, is based on velocity parameters that compare the residual internal carot id luminal diameter with that of the normal distal ICA in accordance with Nor th [place] Symptomatic Carotid Endarterectomy Trial (NASCET). Procedure Note Sami Sargent M.D. - 06/24/2019Formatt ing of this note might be different from the original. EXAM: US CAROTID BILATERAL Exam performed with color and spectral D oppler analysis. COMPARISON: FINDINGS: RIGHT: Minimal plaque LEFT: Minimal plaque VELOCITIES (cm/sec) Right CCA *psv: 86 cm/s Right ICA psv: 77 cm/s Right ICA edv: 30 cm/s Right ECA psv: 75 cm/s Right ICA/CCA: 0.9 Left CCA *psv: 76 cm/s Left ICA psv: 77 cm/s Left ICA edv: 26 cm/s Left ECA psv: 63 cm/s Left ICA/CCA: 1.0 *mid/distal (non-diseased) Measurement of a carotid stenosis, if pr esent, is based on velocity parameters that compare the residual internal carot id luminal diameter with that of the normal distal ICA in accordance with Nor th [place] Symptomatic Carotid Endarterectomy Trial (NASCET). IMPRESSION: Less than 50% stenosis of the right and left internal carotid arteries by velocity criteria. Irina HARP US PROCEDURES documented in this encounter Visit Diagnoses Diagnosis [place] documented in this encounter
--- OUTSIDE RECORDS SUMMARY | 2022-05-04 10:20 | XMS_ITS | Encounter Summary ---
:1955 Author Organization [facility] Address [address] [place] [address] Care Team Providers Name Role Phone Unavailable Primary Care Provider Unavailable Reason for Visit Physical Therapy (Routine) - Closed Specialty Diagnoses / Procedures Referred By Contact Refer red To Contact Diagnoses Primary Osteoarthritis Knee Bilateral Pain Knee Right Roberto Salazar, [facility] Procedures PT Evaluate and treat Jose Alberto [address] [place] [address] Referral ID Status Reason Start Date Expiration Date Visits Requ ested Visits Authorized [id number] Closed 02/02/2021 02/02/2022 1 1 Encounter Details Date Type Department Care Team Description 02/28/2021 Comprehensive Visit Department of Dean Salazar M.D. [address] [place] [phone] Primary Osteoarthritis Knee Bilateral; Rehabilitation Ana Vallejo, P.T. [address] [place] [phone] Pain Knee Right Services in [address] [phone] Social History Tobacco Use Types Packs/Day Years [...] How often do you attend faith or islam More than 4 time s [...] or slept in a custodial (including now)? Sex Assigned at Date Recorded Female 05/11/2021 12:39 PM CDT documented as of this encounter Consult Notes Ana Vallejo P.T. - 02/28/2021 9:00 AM CDT Consults Physical Therapy Outpatient Evaluation/Treatment By co-signing this note, the provider certifies the therapy being provided to this patient is reasonable and necessary for the diagnosis or treatment of this patient. SUBJECTIVE Patient's Name: Colleen Lomeli Dejon Tolentino Referring Provider: Roberto Salazar M.D. Visit Diagnosis: 1. Primary Osteoarthritis Knee Bilateral 2. Pain Knee Right Payor: BLUE CROSS BLUE SHIELD / Plan: [employer]BS [place] / Product Type: PPO / Epic Visit Count: 1 PERTINENT MEDICAL / SURGICAL HISTORY: Patient Active Problem List Diagnosis ??? Dislocation Ankle Closed Initial ??? Injury Head Initial ??? Hyperlipidemia ??? Osteopenia ??? Psoriasis ??? Arthroscopy Shoulder Status Post ??? Cholecystitis ??? Obesity Body Mass Index 30-39.9 Adult Past Surgical History: Procedure Laterality Date ??? CORNEA LACERATION REPAIR ??? KERATOPLASTY ??? LAPAROSCOPIC CHOLECYSTECTOMY WITH CHOLANGIOGRAM N/A 08/14/2017 Procedure: LAPAROSCOPIC CHOLECYSTECTOMY WITH attempted CHOLANGIOGRAM; Surgeon: Augie Feldman D.O.; Location: [facility] OR ??? OPEN TENOTOMY OF EXTENSOR TENDON OF FOREARM N/A 11/27/1997 Incision, extensor tendon sheath, wrist (eg, deQuervains disease).. ??? ORIF ANKLE FRACTURE Right 2001 ??? RELEASE OF TRIGGER FINGER N/A 03/29/1998 Release of trigger finger ??? TONSILLECTOMY AND ADENOIDECTOMY N/A 1960 Tonsillectomy and adenoidectomy Colleen Tolentino is a 65 y.o. female who presents to outpatient physical therapy for evaluation. Her symptoms consist of: 1. Knee pain and aching Overall she reports her status is improving . History of Present Illness: patient reports she injured her right knee while performing a stationarybike in December. She reports she felt a pull in the posterior aspect of the knee and developed pain eversince. She also notes a lack of stability and balance in the knee. Relieving Factors: Advil Previous Treatments: Anti-inflammatories and Cold modalities Prior Function: No prior limitation Patient goals: resolve pain return to previous level of function. Contact monitoring: PPE used during therapy: Therapist was wearing the following PPE throughout entire session: surgicalmask Patient was wearing a mask during therapy session: yes Additional Staff Present During Session: no OBJECTIVE PHYSICAL EXAM Pain: 2-3/10 Ortho Exam Patient ambulates into physical therapy today safely independently without the use an assistive device. Palpable pain over the medial hamstring insertion. Knee range of motion right knee lacking 5?? from neutral for knee extension to 125?? of knee flexion. Normal patellar mobility but pain reproduced. Manual muscle testing of the right lower extremity is a 4/5. Patient demonstrates a diminished quad set. Patient demonstrates straight leg raise independently but does demonstrate an extension lag of 5??. TREATMENT Treatment today consisted of: Initiated patient education and HEP. Home Exercise Program/Education: Hamstring stretch 2 times 30 seconds Gastroc stretch 2 times 30 seconds Quad sets 3 x 10 repetitions Straight leg raise 3 x 10 repetitions Bridging 3 x 10 repetitions Side-lying hip abductor leg raises 3 x 10 repetitions Tandem stance 2 times 30 seconds Assessment Clinical Impression: Ms. Tolentino presents to physical therapy with signs and symptoms consistent with knee pain. Impairments: Pain, decreased range of motion decreased strength. Functional deficits: Decreased positional and activity tolerance Rehab Potential: Ms. Tolentino has good potential to achieve established physical therapy goals within the time frame outlined below, provided she actively participates in her physical therapy treatment plan and home program. Functional Goals and Timeframes: PT Outpatient Goals PT Goal #1: Patient will demonstrate right knee range of motion 0-130 degrees. PT Goal #1 Date: 04/08/21 PT Goal #2: Patient will demonstrate improved strength to 5/5. PT Goal #2 Date: 04/08/21 PT Goal #3: Patient will do an independent straight leg raise without extension lag times 10 repetitions. PT Goal #3 Date: 04/08/21 PT Goal #4: Patient will report resolution of pain. PT Goal #4 Date: 04/08/21 Plan Ms. Tolentino was educated regarding evaluative findings, diagnosis, prognosis, potential risks and benefits of rehabilitation interventions. A collaborative effort was used to establish goals and planof care. She was informed of her right to make decisions regarding her care, including refusal of examination or treatment or selection of services from another provider if desired. The treatment plan may be progressed or modified based upon her response to treatment. Treatment Plan: Start of Plan of Care: 02/28/2021 Number of Visits: 6 visits PT Duration: 6 weeks PT Frequency: 1x/week Treatment interventions may include: patient education, home exercise program, range of motion, stretching, strengthening and balance training. Plan for next session: Patient would like to work on an independent home exercise program. Patient will return if she needs further guidance for symptoms do not resolve. Time Spent with Patient PT Evaluation (min): 30 min Time Calculation Total Treatment Time (min): 30 min Ana Vallejo P.T. Department of Rehabilitation Services in [address] [phone] Dept: [phone] documented in this encounter Plan of Treatment Not on filedocumented as of this encounter Visit Diagnoses Diagnosis Primary Osteoarthritis Knee Bilateral Pain Knee Right documented in this encounter
--- OUTSIDE RECORDS SUMMARY | 2022-05-04 10:20 | XMS_ITS | Encounter Summary ---
:1955 Author Organization [facility] Address [address] [place] [address] Care Team Providers Name Role Phone Unavailable Primary Care Provider Unavailable Reason for Referral Physical Therapy (Routine) - Closed Specialty Diagnoses / Procedures Referred By Contact Refer red To Contact Diagnoses Primary Osteoarthritis Knee Bilateral Pain Knee Right Roberto Salazar, [facility] Procedures PT Evaluate and treat Jose Alberto [address] [place] [phone] Referral ID Status Reason Start Date Expiration Date Visits Requ ested Visits Authorized [id number] Closed 02/02/2021 02/02/2022 1 1 Reason for Visit Appointment Request (Routine) - Closed Specialty Diagnoses / Procedures Referred By Contact Refer red To Contact Orthopedic Surgery Referral ID Status Reason Start Date Expiration Date Visits Requ ested Visits Authorized [id number] Closed 01/31/2021 01/31/2022 1 1 Encounter Details Date Type Department Care Team Description 02/02/2021 Comprehensive Visit Department of Martin Primary Osteoarthritis Knee Bilateral (Primary Dx); Orthopedic Surgery Zelda Weber Pain Knee Right [address], [address] [place], [place] [address] [facility] [address] [place], [place] [phone] (Work) [phone] Social History Tobacco Use Types Packs/Day Years [...] or relatives? How often do you attend buddhism or pentecostal More than 4 time s per year 09/17/2021 services? Do you belong to any clubs or organizations Yes 09/17/2021 such as buddhism groups, unions, fraternal or athletic groups, or [...] place to sleep or slept in a longterm (including now)? Sex Assigned at Date Recorded Female 05/11/2021 12:39 PM CDT documented as of this encounter Consult Notes Roberto Salazar M.D. - 02/02/2021 1:30 PM CDT SUBJECTIVE CHIEF COMPLAINT / REASON FOR VISIT Right knee pain REFERRING PROVIDER No ref. provider found HISTORY OF PRESENT ILLNESS Colleen is a 65 y.o. female who presents for evaluation of right knee pain which 1st developed approximately 6 weeks ago while riding her stationary bike. Since then, she has experienced diffuse achy pain and tightness in her knee. Symptoms are worse with activities, especially prolonged walking and climbing stairs. She denies any knee instability or mechanical symptoms. Treatment consisted of taking Advil and using a knee sleeve on an as-needed basis. Pain reported: 11/27 Her current problem list includes: #1 Primary Osteoarthritis Knee Bilateral #2 Pain Knee Right #3 Dislocation Ankle Closed Initial #4 Injury Head Initial #5 Hyperlipidemia #6 Osteopenia #7 Psoriasis #8 Arthroscopy Shoulder Status Post #9 Cholecystitis #10 Obesity Body Mass Index 30-39.9 Adult Past Medical History: Diagnosis Date ??? Injury Breast Initial laceration near nipple on right side 50 years ago Past Surgical History: Procedure Laterality Date ??? CORNEA LACERATION REPAIR ??? KERATOPLASTY ??? LAPAROSCOPIC CHOLECYSTECTOMY WITH CHOLANGIOGRAM N/A 08/14/2017 Procedure: LAPAROSCOPIC CHOLECYSTECTOMY WITH attempted CHOLANGIOGRAM; Surgeon: Augie Feldman D.O.; Location: [facility] OR ??? OPEN TENOTOMY OF EXTENSOR TENDON OF FOREARM N/A 11/27/1997 Incision, extensor tendon sheath, wrist (eg, deQuervains disease).. ??? ORIF ANKLE FRACTURE Right 2001 ??? RELEASE OF TRIGGER FINGER N/A 03/29/1998 Release of trigger finger ??? TONSILLECTOMY AND ADENOIDECTOMY N/A 1960 Tonsillectomy and adenoidectomy Current Outpatient Medications: ??? acetaminophen (TYLENOL EXTRA STRENGTH) 500 mg tablet, Take 2 tablets by mouth every 6 (six) hours as needed for pain. , Disp: , Rfl: ??? aspirin [address] tablet, Take 1 tablet by mouth daily., Disp: , Rfl: ??? calcium carbonate-vitamin D3 500 mg(1,250mg) -125 unit per tablet, Take 2 tablets by mouth daily., Disp: , Rfl: ??? cholecalciferol (for_VITAMIN D3) 2,000 Unit capsule, Take 2,000 Units by mouth daily., Disp: , Rfl: ??? ibuprofen (for_ADVIL,MOTRIN) 200 mg tablet, Take 3 tablets by mouth every 6 (six) hours as needed for pain. , Disp: , Rfl: ??? Misc Prescription (Allergy Immunotherapy), Take 2 tablets by mouth daily., Disp: , Rfl: ??? omega 6-fcc-aad-fish oil 600 mg-216 mg- 324 mg-1,200 mg capsule,delayed release(DR/EC), Take 1 capsule by mouth daily., Disp: , Rfl: Social History Tobacco Use ??? Smoking status: Never Smoker ??? Smokeless tobacco: Never Used Substance Use Topics ??? Alcohol use: No Comment: Holidays Occupational History ??? Not on file The following portions of the patient's history were reviewed and updated as appropriate: allergies,current medications, medical history, social history, surgical history and problem list. REVIEW OF SYSTEMS Musculoskeletal: Positive for knee pain. As per HPI The following systems were negative: Constitutional, Skin, CV, Respiratory, Neuro OBJECTIVE PHYSICAL EXAMINATION General: She is alert and oriented and in no apparent distress. Musculoskeletal: Both knees were examined. No warmth, erythema, or effusion. Range of motion 0-120 degrees bilaterally. No significant tenderness palpation of the medial joint lines, lateral joint lines, or patellar facets. Both knees are stable to varus and valgus stress. Brigette's and posterior drawer tests were negative bilaterally. Sensation was intact to light touch all dermatomes distal bilateral lower extremities. 5/5 strength bilateral EHL, tibialis anterior, gastrocnemius/soleus, hamstrings, and quadriceps. Feet were warm and well perfused with intact distal pulses. DIAGNOSTICS IMAGING: Bilateral standing AP, bilateral standing flexion PA, bilateral sunrise, and right lateral knee x-rays performed February 02, 2021 were reviewed. These demonstrated moderate tricompartmental degenerative changes, worse in the medial patellofemoral compartments bilaterally. No acute osseous abnormalities. ASSESSMENT / PLAN #1 Primary Osteoarthritis Knee Bilateral #2 Pain Knee Right Discussed diagnosis and natural history of osteoarthritis. Both surgical and conservative treatment options were discussed today, and recommendation was made for conservative treatment consisting of activity modifications, weight loss, pain management with NSAIDs and/or Tylenol, and intermittent intra-articular corticosteroid or viscosupplementation injections. After discussion, patient was in agreement with plan.She is going to take vmuw-glh-cvamtxg pain medications on an as-needed basis for pain control. She was not interested in any corticosteroid injection(s) in clinic today. She was not referred to formal physical therapy. She will return for follow-up on an as-needed basis. documented in this encounter Plan of Treatment Not on filedocumented as of this encounter Results DX Knee Right 3 Views (02/02/2021 1:32 PM CDT) Anatomical Region Laterality Modality Lower Extremity, Knee, Musculoskeletal RST LOS, Right Digital Radiography Musculoskeletal ARZ LOS, Muskuloskeletal FLA LOS Specimen (Source) Anatomical Collection Method Collection Time Re ceived Time Location / / Volume Laterality 02/02/2021 1:36 PM CDT Impressions 02/02/2021 1:39 PM CDT Mild tricompartmental degenerative change right knee with small osteophytes and moderate medial compartm ent narrowing. No fracture. Trace right knee joint effusion and/or synovitis. Sl ight lateral subluxation of the right patella. Tricompartmental degenerative c hange left knee with moderate medial compartment narrowing and lateral sublux ation of the patella. Narrative 02/02/2021 1:39 PM CDT EXAM: DX KNEE RIGHT 3 VIEWS Procedure Note Angela Donovan M.D. - 02/02/2021Form atting of this note might be different from the original. EXAM: DX KNEE RIGHT 3 VIEWS IMPRESSION: Mild tricompartmental degenerative garcia e right knee with small osteophytes and moderate medial compartm ent narrowing. No fracture. Trace right knee joint effusion and/or synovitis. Sl ight lateral subluxation of the right patella. Tricompartmental degenerative c hange left knee with moderate medial compartment narrowing and lateral sublux ation of the patella. Roberto [facility] EMILIA MERLOS documented in this encounter Visit Diagnoses Diagnosis Primary Osteoarthritis Knee Bilateral - Primary Pain Knee Right Primary Osteoarthritis Knee Bilateral documented in this encounter
--- OUTSIDE RECORDS SUMMARY | 2022-05-04 10:20 | XMS_ITS | Encounter Summary ---
:1955 Author Organization [facility] Address [address] [place] [address] Care Team Providers Name Role Phone Unavailable Primary Care Provider Unavailable Reason for Visit Reason Comments Post-op Lap mona 08/14/17 Outpatient (Routine) - Closed Specialty Diagnoses / Procedures Referred By Contact Refer red To Contact General Surgery Diagnoses Cholecystitis Augie Feldman D.O. [facility] [address] [place] [address] Referral ID Status Reason Start Date Expiration Date Visits Requ ested Visits Authorized [id number] Closed 08/15/2017 02/11/2018 1 1 Encounter Details Date Type Department Care Team Description 08/22/2017 Office Visit Department of General Augie Feldman [facility] [address] [facility] [address] [place] [address] [place] [address] [phone] Social History Tobacco Use Types Packs/Day Years [...] How often do you attend christian or jainism More than 4 time s per year [...] place to sleep or slept in a half-way (including now)? Sex Assigned at Date Recorded Female 05/11/2021 12:39 PM CDT documented as of this encounter Last Filed Vital Signs Vital Sign Reading Time Taken Comments Blood Pressure 137/75 08/22/2017 9:26 AM SILK TRIMMER Pulse 75 08/22/2017 9:26 AM SILK TRIMMER Temperature 36.4 ??C (97.5 ??F) 08/22/2017 9:26 AM SILK TRIMMER Respiratory Rate - - Oxygen Saturation - - Inhaled Oxygen Concentration - - Weight - - Height - - Body Mass Index - - documented in this encounter Progress Notes Augie Feldman D.O. - 08/22/2017 12:00 AM CST Ms. Tolentino is seen today in followup from her laparoscopic cholecystectomy. She is doing well andhas no complaints. She is eating and drinking. Her bowels are moving well. Her pain is well controlled without narcotics. Her incisions are all dry and intact without evidence of infection or erythema.She is discharged to further care. I would be happy to re-evaluate as needed. Job ID: [id number] TRIMMER documented in this encounter Plan of Treatment Not on filedocumented as of this encounter Visit Diagnoses Diagnosis Cholecystitis documented in this encounter
--- OUTSIDE RECORDS SUMMARY | 2022-05-04 10:20 | XMS_ITS | Encounter Summary ---
:1955 Author Organization [facility] Address [address] [place] [address] Care Team Providers Name Role Phone Unavailable Primary Care Provider Unavailable Reason for Referral Specialty Diagnoses / Procedures Referred By Contact Refer red To Contact Torin Nguyen M.D. [facility] Region [address] [facility] [place] [address] Referral ID Status Reason Start Date Expiration Date Visits Requ ested Visits Authorized ULAR SAW EDGE FUSER Encounter Details Date Type Department Care Team Description 10/20/2020 Orders Only [facility] handy Geller M.D. [address] [place], [place] [phone] (Wo rk) Social History Tobacco Use Types [...] How often do you attend yazidism or moravian More than 4 time s per year [...] place to sleep or slept in a group home (including now)? Sex Assigned at Date Recorded Female 05/11/2021 12:39 PM CDT documented as of this encounter Plan of Treatment Scheduled Referrals Name Type Priority Associated Order Schedule Diagnoses Covid immunization Outpatient Referral Routine Ex pected: office visit Initial 021 (Approximate), Expires: 10/20/2021 documented as of this encounter Visit Diagnoses Not on filedocumented in this encounter
--- OUTSIDE RECORDS SUMMARY | 2022-05-04 10:20 | XMS_ITS | Encounter Summary ---
:1955 Author Organization [facility] Address [address] [place] [address] Care Team Providers Name Role Phone Unavailable Primary Care Provider Unavailable Encounter Details Date Type Department Care Team Description 11/22/2020 Immunization Department of [facility] Shen Bowman For COVID-19 Medicine, [place] Jose Alberto Del Real Vaccine Immunization Professional Building, [address] [facility] in [address] [address] [place] [address] [phone] Social History Tobacco Use Types Packs/Day Years [...] or relatives? How often do you attend alevism or christian More than 4 time s per year 09/17/2021 services? Do you belong to any clubs or organizations Yes 09/17/2021 such as alevism groups, unions, fraternal or athletic groups, or [...] as of this encounter Visit Diagnoses Diagnosis Encounter For COVID-19 Vaccine Immunizat ion documented in this encounter
--- OUTSIDE RECORDS SUMMARY | 2022-05-04 10:20 | XMS_ITS | Encounter Summary ---
:1955 Author Organization [facility] Address [address] [place] [address] Care Team Providers Name Role Phone Unavailable Primary Care Provider Unavailable Reason for Referral Outpatient (Routine) - Closed Specialty Diagnoses / Procedures Referred By Contact Refer red To Contact General Surgery Diagnoses Follow Up Examination Postoperative Visit Auige Feldman D.O. 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 How often do you attend confucianist or islam More than 4 time s per year 09/17/2021 services? Do you belong to any clubs or organizations Yes 09/17/2021 such as confucianist groups, unions, fraternal or athletic groups, or [...] Name Type Priority Associated Diagnoses Order S [facility] General Surgery Outpatient Referral Routine Follow Up Examinat ion Expected: Post Op (clinic) Postoperative Visit 07/21, Expires: 08/16/2020 documented as of this encounter Visit Diagnoses Diagnosis Follow Up Examination Postoperative Visi t - Primary documented in this encounter
--- OUTSIDE RECORDS SUMMARY | 2022-05-04 10:20 | XMS_ITS | Encounter Summary ---
:1955 Author Organization [facility] Address [address] [place] [address] Care Team Providers Name Role Phone Unavailable Primary Care Provider Unavailable Encounter Details Date Type Department Care Team Description 02/02/2021 Hospital Encounter Department of Martin, Primary Osteoarthritis Radiology in [facility] Roberto Vela M.D. Knee [address] [phone] Social History Tobacco Use Types Packs/Day Years [...] or relatives? How often do you attend taoist or zoroastrian More than 4 time s per year 09/17/2021 services? Do you belong to any clubs or organizations Yes 09/17/2021 such as taoist groups, unions, fraternal or athletic groups, or [...] D3) 2,000 mouth daily. Unit capsule omega 3-yzm-uxt-fish oil Take 1 capsule by 0 10/1910/03/2021 600 mg-216 mg- 324 mouth daily. mg-1,200 mg capsule,delayed release(DR/EC) documented as of this encounter Plan of Treatment Not on filedocumented as of this encounter Procedures Procedure Name Priority Date/Time Associated Diagnosis Comme nts DX KNEE RIGHT 3 RAD - Routine 02/02/2021 1:32 Primary Results for VIEWS (most inpatients PM CDT Osteoarthritis Knee this procedure and all Bilateral are in the outpatients) results section. documented in this encounter Results DX Knee Right 3 [...] Visit Diagnoses Diagnosis Primary Osteoarthritis Knee Bilateral documented in this encounter
--- OUTSIDE RECORDS SUMMARY | 2022-05-04 10:20 | XMS_ITS | Encounter Summary ---
:1955 Author Organization [facility] Address [address] [place] [address] Care Team Providers Name Role Phone Unavailable Primary Care Provider Unavailable Reason for Referral Outpatient (Routine) - Closed Specialty Diagnoses / Procedures Referred By Contact Refer red To Contact Diagnoses Screening Mammogram Breast Cancer Fernando Steven [facility]. [facility] Region Procedures BI Breast Screening Bilateral with Tomosynthesis [address] [place], [place] [address] Referral ID Status Reason Start Date Expiration Date Visits Requ ested Visits Authorized [id number] Closed 04/19/2020 04/19/2021 1 1 Reason for Visit Outpatient (Routine) - Closed Specialty Diagnoses / Procedures Referred By Contact Refer red To Contact Diagnoses Screening Mammogram Breast Cancer Fernando Steven M.D. [facility] Region Procedures BI Breast Screening Bilateral with Tomosynthesis [address] [place], [place] [address] Referral ID Status Reason Start Date Expiration Date Visits Requ ested Visits Authorized [id number] Closed 04/19/2020 04/19/2021 1 1 Encounter Details Date Type Department Care Team Description 04/29/2020 Hospital Encounter Department of Fernando Steven ing Mammogram Radiology in Kris Cates M.D. [place], [place] [address] [facility] [address] [phone] Social History Tobacco Use Types Packs/Day Years [...] or relatives? How often do you attend episcopal or episcopal More than 4 time s per year 09/17/2021 services? Do you belong to any clubs or organizations Yes 09/17/2021 such as episcopal groups, unions, fraternal or athletic groups, or [...] slept in a senior care (including now)? Sex Assigned at Date Recorded [...] D3) 2,000 mouth daily. Unit capsule omega 5-flc-pix-fish oil Take 1 capsule by 0 10/1910/03/2021 600 mg-216 mg- 324 mouth daily. mg-1,200 mg capsule,delayed release(DR/EC) documented as of this encounter Plan of Treatment Not on filedocumented as of this encounter Procedures Procedure Name Priority Date/Time Associated Comments Diagnosis BI BREAST SCREENING RAD - Routine 04/29/2020 12:49 Screening Res ults for BILATERAL WITH (most inpatients PM CDT Mammogram Breast this procedure TOMOSYNTHESIS and all Cancer are in the outpatients) results section. documented in this encounter Results BI Breast Screening Bilateral with Tomosynthesis (04/29/2020 12:49 PM CDT) Anatomical Region Laterality Modality Breast, Breast Imaging RST LOS, Breast Imaging ARZ LOS, Breanne st Bilateral Mammography Imaging FLA [facility] Specimen (Source) Anatomical Collection Method Collection Time Re ceived Time Location / / Volume Laterality 04/29/2020 1:35 PM CDT Impressions 04/29/2020 1:37 PM CDT Negative. RECOMMENDATION: ??Annual Screening Mammo gram ASSESSMENT: ??BI-RADS: 1: Negative. Narrative 04/29/2020 1:37 PM CDT EXAM: ??BI BREAST SCREENING BILATERAL WITH TOMOSYNTHESIS Current study was evaluated with a [employer] Aided Detection (CAD) system. INDICATION: ??Screening mammogram. COMPARISON: ??Prior exam(s) were availab le and reviewed for comparison. DENSITY: ??b. There are scattered areas of fibroglandular density. FINDINGS: ??No mammographic findings of malignancy. Procedure Note Marcelino Shelley M.D. - 04/29/2020Format ting of this note might be different from the original. EXAM: BI BREAST SCREENING BILATERAL WITH TOMOSYNTHESIS Current study was evaluated with a Civicon Aided Detection (CAD) system. INDICATION: Screening mammogram. COMPARISON: Prior exam(s) were available and reviewed for comparison. DENSITY: b. There are scattered areas of fibroglandular density. FINDINGS: No mammographic findings of ma lignancy. IMPRESSION: Negative. RECOMMENDATION: Annual Screening Mammogr am ASSESSMENT: BI-RADS: 1: Negative. Fernando HARP BI PROCEDURES documented in this encounter Visit Diagnoses Diagnosis Screening Mammogram Breast Cancer documented in this encounter
--- OUTSIDE RECORDS SUMMARY | 2022-05-04 10:20 | XMS_ITS | Encounter Summary ---
:1955 Author Organization [facility] Address [address] [place] [address] Care Team Providers Name Role Phone Unavailable Primary Care Provider Unavailable Reason for Visit Reason Comments Post-op drain removal post lap mona 08-14-17 Outpatient (Routine) - Closed Specialty Diagnoses / Procedures Referred By Contact Refer red To Contact General Surgery Diagnoses Follow Up Examination Postoperative Visit Augie Feldman D.O. [facility] [address] [place] [address] Referral ID Status Reason Start Date Expiration Date Visits Requ ested Visits Authorized [id number] Closed 08/16/2017 02/12/2018 1 1 Encounter Details Date Type Department Care Team Description 08/17/2017 Office Visit Department of General Amarilis Feldman D.O. [address] [place] [address] Cholecystitis (Primary Dx); Surgery in [place] Beasley Paul D, M.D. 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 - 08/17/2017 1:15 PM CST SUBJECTIVE CHIEF COMPLAINT/REASON FOR VISIT Post-Operative Visit Referring provider: Augie Feldman D.O. 3 days HISTORY OF PRESENT ILLNESS Colleen Tolentino is a 62 y.o. female seen in postoperative follow-up. The surgery date was 08/14/2017. The operation performed was: Procedure(s): LAPAROSCOPIC CHOLECYSTECTOMY WITH attempted CHOLANGIOGRAM Surgeon(s) and Role: * Augie Feldman D.O. - Primary Patrol Guard: Susan Bear L.P.N. Anesthesia Type: General Pre-Operative Diagnosis: Cholecystitis [K81.9] Post Op Dx: Acute necrotizing cholecystitis She is progressing well. Subjective Her pain is improving. Pain education was given. OBJECTIVE BP 149/71 (BP Location: Left arm, Patient Position: Sitting, Cuff Size: Large) Pulse 77 Temp 37.1 ??C (Temporal) PHYSICAL EXAM Constitutional: She does not appear ill. No distress. Cardiovascular: Normal rate and regular rhythm. Pulmonary: Effort normal and breath sounds normal. Abdominal: Soft. She exhibits no distension. There is tenderness. There is no rigidity and no guarding. No hernia. Appropriate incisional tenderness. Musculoskeletal: There is no sign of deep venous thrombosis. Her incisions are clean and intact. There is no sign of infection, seroma or hematoma. Drainage is minimal and serous. Drain removed without incident. ASSESSMENT / PLAN #1 Follow Up Examination Postoperative Visit #2 Cholecystitis Ms. Tolentino is progressing as expected postoperatively. We discussed the operative findings and expected course from this point and she expressed understanding. We discussed diet, activity level and wound care. All of her questions were answered to her satisfaction. She will contact us if she has any additional questions or concerns. The patient will follow-up with us in 1 week. 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
--- OUTSIDE RECORDS SUMMARY | 2022-05-04 10:20 | XMS_ITS | Encounter Summary ---
:1955 Author Organization [facility] Address [address] [place] [address] Care Team Providers Name Role Phone Unavailable Primary Care Provider Unavailable Reason for Referral Specialty Diagnoses / Procedures Referred By Contact Refer red To Contact [facility] [place] [facility] [address] [facility] [address] [place] [address] Referral ID Status Reason Start Date Expiration Date Visits Requ ested Visits Authorized ER STARTING GATE Encounter Details Date Type Department Care Team Description 10/28/2020 Immunization Department of Anabel Alcantara Enco unter For COVID-19 Medicine, [place] MSolitario Vaccine Immunization Professional [facility], [address] [facility] (Primary Dx) in [place], [place] [address] [facility] [address] [place] [phone] Social History Tobacco Use Types Packs/Day Years [...] How often do you attend presybeterian or quaker More than 4 time s per year [...] Name Type Priority Associated Diagnoses Order S jacinda Covid immunization Outpatient Referral Routine Encounter For E xpected: office visit COVID-19 Vaccine 11/18/2020, Subsequent; 21 days Immunization Expires: 10/29/2023 documented as of this encounter Visit Diagnoses Diagnosis Encounter For COVID-19 Vaccine Immunizat ion - Primary documented in this encounter
--- OUTSIDE RECORDS SUMMARY | 2022-05-04 10:20 | XMS_ITS | Encounter Summary ---
:1955 Author Organization [facility] Address [address] [place] [address] Care Team Providers Name Role Phone Unavailable Primary Care Provider Unavailable Encounter Details Date Type Department Care Team Description 06/22/2021 Clinical Communication Department of [facility], in [address] [phone] Social History Tobacco Use Types Packs/Day Years [...] How often do you attend islam or baptist More than 4 time s per year [...]
--- OUTSIDE RECORDS SUMMARY | 2022-05-04 10:20 | XMS_ITS | Encounter Summary ---
:[address] [facility] Address [address] [place] [address] Care Team Providers Name Role Phone Unavailable Primary Care Provider Unavailable Encounter Details Date Type Department Care Team Description 05/11/2021 Admin Visit Department of Family Shen Bowman, [facility], [facility] [address] [facility] [address] [place] [phone] (Wo rk) Social History Tobacco Use Types [...] or relatives? How often do you attend restorationism or jewish More than 4 time s per year 09/17/2021 services? Do you belong to any clubs or organizations Yes 09/17/2021 such as restorationism groups, unions, fraternal or athletic groups, or [...] Date Last Indicated Resolved Time COVID19 Pending 05/11/2021 05/11/2021 05/12/2021 12:40 PM CDT documented as of this encounter
--- OUTSIDE RECORDS SUMMARY | 2022-05-04 10:20 | XMS_ITS | Encounter Summary ---
:1955 Author Organization [facility] Address [address] [place] [address] Care Team Providers Name Role Phone Unavailable Primary Care Provider Unavailable Reason for Visit Reason Onset Date Comments Testing For Upper Respiratory Virus Symptoms 05/11/2021 Encounter Details Date Type Department Care Team Description 05/11/2021 External Outreach Department of Family Kyra Cosby Contact With And Medicine, Jo PhillipAManoj (Suspected) Exposure Clinic, in [address] To [facility] (Primary [place], [place] Dx) [address] [facility] [address] [place], [place] [phone] [address] (Work) [phone] Social History Tobacco Use Types Packs/Day Years [...] often do you attend jehovah's witness or muslim More than 4 time s [...] documented as of this encounter Progress Notes Odalys Roa RLiane. - 05/11/2021 1:08 PM CDT Encounter created for symptomatic infectious disease screening with possible COVID, Influenza, RSV, and/or Group A Strep testing. documented in this encounter Plan of Treatment Not on filedocumented as of this encounter Procedures Procedure Name Priority Date/Time Associated Diagnosis Comme nts SARS CORONAVIRUS-2 Routine 05/11/2021 2:29 PM Contact With And Results for this RNA, V CDT (Suspected) Exposure procedu re are in To COVID-19 the results section. documented in this encounter Results SARS Coronavirus-2 RNA, V Symptomatic (05/11/2021 2:29 PM CDT) [facility] Method Time Signature SARS-CoV-2 Swab, 05/12/2021 ECLR Specimen Nasopharynx 12:39 PM Source CDT SARS CoV-2 Undetected Undetected 05/12/2021 ECLR RNA, TMA 12:39 PM CDT Comment: SARS-CoV-2 RNA absent. This result does not rule out COVID-19 in the patient, as the sensitivity of the test depends o n the timing of the specimen collection and the quality of the specim en. Result should be correlated with patient's history and clinical presentat ion. ----ADDITIONAL INFORMATION---- This molecular amplification test was pe rformed using the Aptima SARS-CoV-2 assay ([employer] on the [place] Sys tem under emergency use authorization (EUA) by the U.S. Food and Drug Administ emmie. Fact sheets for this EUA assay can be fo und at the following links: For Healthcare Providers: https://www.fd a.gov/media/916474/download For Patients: https://www.fda.gov/media/ 907407/download Specimen Anatomical Collection Method Collection Time Receive d Time (Source) Location / / Volume Laterality Varies 05/11/2021 2:29 PM 9:37 (Nasopharynx) CDT PM CDT Ramón Cosby P.A.-C. LAB MICROBIOLOGY - GENERAL O MALI Performing Organization Address City/State/[facility] Code Phon e Number [facility]- [address] [place] [phone] [facility] [place] [address] [address] documented in this encounter Visit Diagnoses Diagnosis Contact With And (Suspected) Exposure To COVID-19 - Primary documented in this encounter Additional Health Concerns Infection Onset Date Last Indicated Resolved Time COVID19 Pending 05/11/2021 05/11/2021 05/12/2021 12:40 PM CDT documented as of this encounter
--- OUTSIDE RECORDS SUMMARY | 2022-05-04 10:20 | XMS_ITS | Encounter Summary ---
:1955 Author Organization [facility] Address [address] [place] [address] Care Team Providers Name Role Phone Unavailable Primary Care Provider Unavailable Encounter Details Date Type Department Care Team Description 12/09/2018 Hospital Encounter Department of Irina Pham [facility] [place] [address] [place] [phone] Social History Tobacco Use Types Packs/Day [...] How often do you attend scientologist or mandaeism More than 4 time s per year [...] place to sleep or slept in a assisted (including now)? Sex Assigned at Date Recorded [...] D3) 2,000 mouth daily. Unit capsule omega 0-kuu-voc-fish oil Take 1 capsule by 0 10/1910/03/2021 600 mg-216 mg- 324 mouth daily. mg-1,200 mg capsule,delayed release(DR/EC) documented as of this encounter Plan of Treatment Not on filedocumented as of this encounter Procedures Procedure Name Priority Date/Time Associated Comments Diagnosis BI BREAST SCREENING RAD - Routine 12/09/2018 1:34 Screening Resu lts for BILATERAL WITH (most inpatients PM CDT Mammogram Breast this procedure TOMOSYNTHESIS and all Cancer are in the outpatients) results section. documented in this encounter Results BI Breast Screening Bilateral with Tomosynthesis (12/09/2018 1:34 PM CDT) Anatomical Region Laterality Modality Breast, Breast Imaging RST LOS, Breast Imaging ARZ LOS, Breanne st Bilateral Mammography Imaging FLA LOS Specimen (Source) Anatomical Collection Method Collection Time Re ceived Time Location / / Volume Laterality 12/09/2018 1:40 PM CDT Impressions 12/09/2018 1:41 PM CDT IMPRESSION: ??Negative. RECOMMENDATION: ??Annual Screening Mammo gram ASSESSMENT: ??BI-RADS: 1: Negative. Narrative 12/09/2018 1:41 PM CDT EXAM: ??BI BREAST SCREENING BILATERAL WITH TOMOSYNTHESIS Current study was evaluated with a Compu ter Aided Detection (CAD) system. INDICATION: ??Screening mammogram. COMPARISON: ??Prior exam(s) were availab le and reviewed for comparison. DENSITY: ??b. There are scattered areas of fibroglandular density. FINDINGS: ??No mammographic findings of malignancy. Procedure Note Kj Delgado M.D. - 12/09/2018Formatti ng of this note might be different from the original. EXAM: BI BREAST SCREENING BILATERAL WITH TOMOSYNTHESIS Current study was evaluated with a Compu ter Aided Detection (CAD) system. INDICATION: Screening mammogram. COMPARISON: Prior exam(s) were available and reviewed for comparison. DENSITY: b. There are scattered areas of fibroglandular density. FINDINGS: No mammographic findings of ma lignancy. IMPRESSION: Negative. RECOMMENDATION: Annual Screening Mammogr am ASSESSMENT: BI-RADS: 1: Negative. Irina HARP BI PROCEDURES documented in this encounter Visit Diagnoses Diagnosis Screening Mammogram Breast Cancer documented in this encounter
--- OUTSIDE RECORDS SUMMARY | 2022-05-04 10:21 | XMS_ITS | Encounter Summary ---
:1955 Author Organization [facility] Address [address] [place] [address] Care Team Providers Name Role Phone Unavailable Primary Care Provider Unavailable Encounter Details Date Type Department Care Team Description 01/29/2013 Hospital Encounter HX NO MAPPING Yulissa Finn APRN, C.N.P. [address] [phone] (Wo rk) Social History Tobacco Use Types Packs/Day Years Used Date Smoking Tobacco: Never Assessed Alcohol Habits Answer Date Recorded How often do you have a drink containing alcohol? Monthly or less 09/17/2021 How many drinks containing alcohol do you have on a 1 or 2 09/17/2021 typical day when you are drinking? How often do you have six or more drinks on one Never 09/17/2021 occasion? Comment: Not asked Social Isolation Answer Date Recorded In a typical week, how many times do you Twice a week 09/17/2021 talk on the phone with family, friends, or neighbors? How often do you get together with friends Once a week 09/17/2021 or relatives? How often do you attend yazidi or islam More than 4 time s per year 09/17/2021 services? Do you belong to any clubs or organizations Yes 09/17/2021 such as yazidi groups, unions, fraternal or athletic groups, or [...] slept in a care home (including now)? Sex Assigned at Date [...] mg tablet hours as needed for pain. Misc Prescription Take 1 each by mouth 0 06/27/20 12 (Allergy Immunotherapy) as needed (allergies). Homeopathic remedy drops calcium Take 2 tablets by 0 05/26/200214/ 022 carbonate-vitamin D3 500 mouth daily. mg(1,250mg) -125 unit per tablet documented as of this encounter Plan of Treatment Not on filedocumented as of this encounter Visit Diagnoses Not on filedocumented in this encounter
--- OUTSIDE RECORDS SUMMARY | 2022-05-04 10:21 | XMS_ITS | Encounter Summary ---
:1955 Author Organization [facility] Address [address] [place] [address] Care Team Providers Name Role Phone Unavailable Primary Care Provider Unavailable Reason for Referral Outpatient (Routine) - Closed Specialty Diagnoses / Procedures Referred By Contact Refer red To Contact General Surgery Diagnoses Cholecystitis Alvin Mathur D.O. [facility] [address] [place] [address] Referral ID Status Reason Start Date Expiration Date Visits Requ ested Visits Authorized [id number] Closed 08/15/2017 02/11/2018 1 1 [employer] H[employer]ORY TE[employer]ER Reason for Visit Auth/Cert Specialty Diagnoses / Procedures Referred By Contact Refer red To Contact Diagnoses Calculus of bile duct without cholangitis or cholecystitis with obstruction Calculus of bile duct without cholangitis or cholecystitis with obstruction Procedures UT CHOLECYSTECTOMY W CHOLANGIOGR Gallbladder removal Referral ID Status Reason Start Date Expiration Date Visits Requ ested Visits Authorized [id number] 1 1 Encounter Details Date Type Department Care Team Description 08/14/2017 - Hospital Encounter [facility] Francia, Cholecyst itis 08/15/2017 [facility], Kris Ghosh D.O. (Primary Dx) [facility], [address] [place] [address] [phone] Social History Tobacco Use Types Packs/Day Years [...] How often do you attend restoration or jainism More than 4 time s [...] place to sleep or slept in a snf (including now)? Sex Assigned at Date Recorded Female 05/11/2021 12:39 PM CDT documented as of this encounter Last Filed Vital Signs Vital Sign Reading Time Taken Comments Blood Pressure 128/56 08/15/2017 5:03 PM [employer] Pulse 79 08/15/2017 5:03 PM [employer] TE[employer]ER Temperature 36.5 ??C (97.7 ??F) 08/15/2017 5:03 PM [employer] TE[employer]ER Respiratory Rate 16 08/15/2017 5:03 PM [employer] TE[employer]ER Oxygen Saturation 97% 08/15/2017 5:03 PM [employer] TE[employer]ER Inhaled Oxygen Concentration - - Weight 98 kg (216 lb 0.8 oz) 08/15/2017 4:51 AM [employer] TE[employer]ER Height 157.5 cm (5' 2) 08/14/2017 4:33 PM [employer] H[employer]ORY TEACHER Body Mass Index 39.52 08/14/2017 4:33 PM [employer] H[employer]ORY TEACHER documented in this encounter Discharge Summaries Alvin Mathur D.O. - 08/15/2017 5:22 PM CST INPATIENT DISCHARGE SUMMARY BRIEF OVERVIEW Discharge Provider: Alvin Mathur D.O. No primary care provider on file. Primary Care Provider Phone Number: None Primary Care Provider Fax Number: None Other Providers: None Admission Date: 08/14/2017 Discharge Date: 08/15/2017 PRINCIPAL DIAGNOSIS No Principal Problem: There is no principal problem currently on the Problem List. Please update theProblem List and refresh. SECONDARY DIAGNOSES Active Problems: Cholecystitis Resolved Problems: * No resolved hospital problems. * Operative Procedures: Scheduled (Sumeet), Completed (Comp) or Canceled (Can) Case IDs Date Procedure Surgeon Location Status [id number] 08/14/17 LAPAROSCOPIC CHOLECYSTECTOMY WITH attempted CHOLANGIOGRAM Alvin Mathur D.O. [facility] OR Comp DISCHARGE DISPOSITION Home or Self Care [1] ACTIVE ISSUES REQUIRING FOLLOW UP None OUTPATIENT FOLLOW UP No future appointments. TEST RESULTS PENDING AT DISCHARGE Pending Labs Order Current Status Pathology Services Collected (08/14/171917) DISCHARGE MEDICATIONS Medication List TAKE these medications aspirin [address] tablet Dose: 1 tablet calcium carbonate-vitamin D3 500 mg(1,250mg) -125 unit per tablet Dose: 2 tablet cholecalciferol 2,000 Unit capsule Dose: 2000 Units Commonly known as: for_VITAMIN D3 ciprofloxacin 500 mg tablet Dose: 500 mg Commonly known as: for_CIPRO Take 1 tablet (500 mg total) by mouth 2 (two) times a day for 5 days. ibuprofen 200 mg tablet Dose: 3 tablet Commonly known as: for_ADVIL,MOTRIN Misc Prescription Dose: 2 tablet Commonly known as: Allergy Immunotherapy omega 1-wjh-fco-fish oil 600 mg-216 mg- 324 mg-1,200 mg capsule,delayed release(DR/EC) Dose: 1 capsule ondansetron ODT 4 mg disintegrating tablet Dose: 4 mg Commonly known as: for_ZOFRAN-ODT Take 1 tablet (4 mg total) by mouth 3 (three) times a day as needed for nausea or vomiting for up to2 days. oxyCODONE 5 mg immediate release tablet Dose: 5 mg Commonly known as: for_ROXICODONE Take 1 tablet (5 mg total) by mouth every 6 (six) hours as needed for pain for up to 3 days EarliestFill Date: 08/14/17. TYLENOL EXTRA STRENGTH 500 mg tablet Dose: 2 tablet Generic drug: acetaminophen DETAILS OF HOSPITAL STAY REASON FOR ADMISSION Calculus of bile duct without cholangitis or cholecystitis with obstruction Cholecystitis Cholecystitis HOSPITAL COURSE Pt. Admitted and taken to surgery for laparoscopic cholecystectomy. Please see operative note for details of this difficult case. She was taken back to the floor in satisfactory condition. She was continued on IV Cipro and Flagyl. She required minimal pain medications after surgery. She was given scheduled IV Toradol, but only requested oral Tylenol for supplemental pain control. On postop day 1. She is doing well. Her pain is well controlled and she is feeling much better than she did prior to admission. She is eating and drinking. She is passing flatus. On the morning of postop day 1. Her Chema-Quiroz drain was putting out approximately 30 cc per shift of nallely bloody fluid. This cleared up throughout the day. Her postoperative labs were unremarkable. There was no hyperbilirubinemia. On the afternoon of postop day 1. She continues to feel well and is anxious for discharge. Her Chema-Quiroz drain is more serous. She is discharged with instructions to follow up in the General surgery Clinic on Sunday for drain removal, and next week for her normal postop visit. We will continue joanna Cipro 500 milligrams b.i.d. and Flagyl 500 milligrams t.i.d. for 5 more days. She requests no narcotic pain medications for discharge and will use Tylenol and ibuprofen as needed. 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 Unit capsule omega 9-wfn-hwq-fish oil Take 1 capsule by 0 10/1910/03/2021 600 mg-216 mg- 324 mouth daily. mg-1,200 mg capsule,delayed release(DR/EC) ciprofloxacin (for_CIPRO) Take 1 tablet (500 10 tablet 0 08/20/2017 500 mg tablet mg total) by mouth 2 (two) times a day for 5 days. ciprofloxacin (for_CIPRO) Take 1 tablet (500 10 tablet 0 08/20/2017 500 mg tablet mg total) by mouth 2 (two) times a day for 5 days. metroNIDAZOLE Take 1 tablet (500 13 tablet 0 08/15/201708/2017 (for_FLAGYL) 500 mg mg total) by mouth 3 tabletIndications: (three) times a day Intra-abdominal for 13 doses. infection, community acquired ondansetron ODT Take 1 tablet (4 mg 6 tablet 0 08/14/2017 08/16/2017 (for_ZOFRAN-ODT) 4 mg total) by mouth 3 disintegrating tablet (three) times a day as needed for nausea or vomiting for up to 2 days. oxyCODONE Take 1 tablet (5 mg 20 tablet 0 08/14/201708/17 (for_ROXICODONE) 5 mg total) by mouth immediate release tablet every 6 (six) hours as needed for pain for up to 3 days Earliest Fill Date: 08/14/17. documented as of this encounter Progress Notes Alvin Mathur D.O. - 08/15/2017 11:39 AM CST Patient is seen on postop day 1. Status post laparoscopic cholecystectomy. She is awake and alert and sitting at the bedside. She has no specific complaints. Her pain is controlled with oral Tylenol and Toradol. She denies nausea or vomiting. Vital signs: Temperature 36.7.??. Pulse 78. Respirations 18. Blood pressure 111/47. O2 sat 95% on room air. Heart rate rhythm are regular without clicks or murmurs. Lungs clear to auscultation bilaterally without rales, rhonchi, or wheezes. Abdomen is soft. Appropriate incisional tenderness. Chema-Quiroz drain containing fairly dark blood. About 100 cc per shift. Hemoglobin hematocrit 12.4 and 36.9 respectively. Leukocytosis of 17.1. Total bilirubin is normal at0.8. Impressions: 1. Postop day 1. Laparoscopic cholecystectomy for acute necrotizing cholecystitis Plan: 1. Will continue to monitor today. If the patient is clinically well this afternoon, may choose to discharge on oral antibiotics. Patient indicates she is comfortable handling her own drain for the next several days. SCHOOL HISTORY TEACHER Nila Farooq M.D. - 08/15/2017 8:19 AM CST Anesthesia Post-Op Visit Patient: Damian Ashford Jeremiahmonica Anesthesia Post-Op Visit Postoperative day: 1 Follow-up type: inpatient Cardiovascular status: hemodynamic (HR & BP) acceptable Respiratory status: patent airway with spontaneous effort Oxygen requirements: room air Level of consciousness: awake Pain score: pain adequately controlled and /or at baseline Post Op nausea/vomiting: none S[employer] HISTORY TEACHER documented in this encounter Nursing Notes Monika Loera R.N. - 08/15/2017 6:45 PM CST DISCHARGE PLANNING ??? Patient discharge needs identified Adequate for Discharge INFECTION - ADULT ??? Absence of infection during hospitalization Adequate for Discharge KNOWLEDGE DEFICIT ??? Patient/family/caregiver demonstrates understanding of disease process, treatment plan, medications, and discharge instructions Adequate for Discharge PAIN - ADULT ??? PT VERBALIZES/DEMONSTRATES ADEQUATE COMFORT LEVEL OR BASELINE Adequate for Discharge SAFETY ADULT ??? Maintain a safe environment Adequate for Discharge SAFETY ADULT - RISK FOR FALL AND OR FALL INJURY ??? Patient remains free from fall/fall injury Adequate for Discharge SKIN/TISSUE INTEGRITY ??? Skin/Tissue integrity maintained or improved Adequate for Discharge ??? Oral and Nasal mucous membranes remain intact Adequate for Discharge Goals: Patient verbalizes discharge instructions Identify possible barriers to meeting goals/advancing plan of care none Stability of the patient: Moderately Stable - Low risk of patient condition declining or worsening End of Shift Summary: patient understanding discharge instructions and demonstrated proper emptying of TAMICA drain SCHO[employer] HISTORY TEACHER George Rico R.N. - 08/15/2017 2:15 PM CST DISCHARGE PLANNING ??? Patient discharge needs identified Progressing INFECTION - ADULT ??? Absence of infection during hospitalization Progressing KNOWLEDGE DEFICIT ??? Patient/family/caregiver demonstrates understanding of disease process, treatment plan, medications, and discharge instructions Progressing PAIN - ADULT ??? PT VERBALIZES/DEMONSTRATES ADEQUATE COMFORT LEVEL OR BASELINE Progressing SAFETY ADULT ??? Maintain a safe environment Progressing SAFETY ADULT - RISK FOR FALL AND OR FALL INJURY ??? Patient remains free from fall/fall injury Progressing SKIN/TISSUE INTEGRITY ??? Skin/Tissue integrity maintained or improved Progressing ??? Oral and Nasal mucous membranes remain intact Progressing Goals: Ambulate in hallways TID, pain control less than 6 Identify possible barriers to meeting goals/advancing plan of care: none Stability of the patient: Moderately Stable - Low risk of patient condition declining or worsening End of Shift Summary: ambulating independently in hallways 3 times today, pain has been less than 6 with tylenol. Wants to discharge later today once Doctor rounds SCHOOL HISTORY TEACHER Rupinder Muro RMary - 08/15/2017 4:21 AM CST PAIN - ADULT ??? PT VERBALIZES/DEMONSTRATES ADEQUATE COMFORT LEVEL OR BASELINE Progressing SAFETY ADULT ??? Maintain a safe environment Progressing SAFETY ADULT - RISK FOR FALL AND OR FALL INJURY ??? Patient remains free from fall/fall injury Progressing Goals: Pt will report adequate pain control and use of call light Identify possible barriers to meeting goals/advancing plan of care: none Stability of the patient: Moderately Stable - Low risk of patient condition declining or worsening End of Shift Summary: pt has reported adequate pain control and used call light appropriately. SCHOOL HISTORY TEACHER Senia Manrique R.N. - 08/14/2017 4:36 PM CST Goals: Patient will have adequate pain control throughout shift Identify possible barriers to meeting goals/advancing plan of care: Acute illness Stability of the patient: Moderately Unstable - Medium risk of patient condition declining or worsening End of Shift Summary:Patient has had adequate pain control throughout shift SCHOOL HISTORY TEACHER documented in this encounter OR Notes Op Note - Alvin Mathur D.O. - 08/14/2017 7:13 PM CST FULL OP NOTE Procedure(s): LAPAROSCOPIC CHOLECYSTECTOMY WITH attempted CHOLANGIOGRAM Surgeon(s) and Role: * Alvin Mathur D.O. - Primary Parts Facilitator: Susan Bear L.P.N. Anesthesia Type: General Pre-Operative Diagnosis: Cholecystitis [K81.9] Post Op Dx: Acute necrotizing cholecystitis Full Operative Note Details: Patient was taken the operating room and placed the operating table in a supine position. Her abdomen is prepared with chlorhexidine solution and draped in a sterile manner. The procedure pause was conducted to verify patient identity, procedure to be performed, laterality, and special equipment required. She was placed in Trendelenburg position. The infraumbilical area was anesthetized with 1 percent xylocaine and a 5 millimeters infraumbilical incision made with a 15. Scalpel blade. Soft tissues were dissected with a hemostat and the underlying fascia grasped with a perforating towel clip. Anterior traction was placed the abdominal wall and a 14 gauge Veress needle inserted into the abdominal cavity. Its position was confirmed with the hanging saline drop test. The abdomen was then insufflated with approximately 4 liters of CO2 gas to a pressure of 15 millimeters mercury. 5 millimeter videolaparoscope was inserted over a Visiport trocar. Inspection of the abdomen is performed. A 12 millimeter port was placed in the subxiphoid area just to the right of the falciform ligament and 2 5 millimeter ports placed in the midclavicular and anterior axillary lines respectively. Patient had acute necrotizing cholecystitis. The gallbladder was very firm and difficult to grasp. The gallbladder was decompressed with the Murillo needle. Traction immediately caused a tear in the gallbladder with leakage of bile. The infundibulum was carefully dissected to expose the cystic duct. Dissection was hampered by acuteinflammation at the infundibulum and a very friable gallbladder which tore in multiple locations during the dissection process. The cystic duct and cystic artery were identified and the critical view established. Solano cholangiogram, however, was thwarted by the leakage of contrast material at the infundibulum without extension into the cystic duct and common duct system. The cystic duct was doubly clamped distally and singly clipped proximally and divided. In a similar fashion the cystic artery was skeletonized ligated and divided. The gallbladder was then taken down off the liver bed using blunt and sharp dissection and electrocautery for hemostasis. With traction onthe gallbladder essentially peeled away from the liver bed, creating some moderate bleeding. Gallbladder was placed in Endo-Catch bag and removed through the 12 millimeter subxiphoid incision. The right upper quadrant was copiously irrigated hemostasis achieved with electrocautery, Surgicel, and Avitiene placed on the raw liver surface. A 10 millimeter Chema-Quiroz drain was then placed into the abdomen and positioned at the liver bed. It was externalized through the lateral-most port site. Drain was secured to the skin with 4-0 nylon suture. All instruments and ports were removed the CO2 gas was allowed to escape. 12 millimeter port site was closed the fascial level with 0 Vicryl suture. Remaining skin incisions were then closed with interrupted subcuticular sutures of 4-0 un Vicryl. Dermabond sterile dressings were applied. Patient tolerated procedure well was sent to the floor in satisfactory condition. Specimens ID Type Source Tests Collected by Time A : gallbladder and stones Tissue Gallbladder PATHOLOGY SERVICES Yahaira Abbasi R.N. 08/14/2017 1918 Drains GI Tubes (Adults) Orogastric Center (Active) Closed/Suction Drain Right RUQ Bulb (Active) Estimated Blood Loss 150cc Implants * No implants in log * Alvin Mathur D.O. [employer] H[employer]ORY TEACHER Brief Op Note - Alvin Mathur D.O. - 08/14/2017 7:13 PM CST BRIEF OP NOTE Procedure(s): LAPAROSCOPIC CHOLECYSTECTOMY WITH attempted CHOLANGIOGRAM Surgeon(s) and Role: * Alvin Mathur D.O. - Primary Anesthesia Type: General Pre-Operative Diagnosis: Cholecystitis [K81.9] Post-Operative Diagnosis: Necrotizing cholecystitis Findings: As expected Complications: None Specimens ID Type Source Tests Collected by Time A : gallbladder and stones Tissue Gallbladder PATHOLOGY SERVICES Yahaira Abbasi R.N. 08/14/2017 1918 Drains GI Tubes (Adults) Orogastric Center (Active) Closed/Suction Drain Right RUQ Bulb (Active) Estimated Blood Loss 150cc Implants * No implants in log * Alvin Mathur D.O. SCHO[employer] HISTORY TEACHER documented in this encounter Plan of Treatment Scheduled Referrals Name Type Priority Associated Diagnoses Order S [facility] General Surgery Outpatient Referral Routine Cholecystitis Expe cted: Post Op (clinic) 08/22/2017 (Approximate), Expires: 08/15/2020 documented as of this encounter Procedures Procedure Name Priority Date/Time Associated Comments Diagnosis HEPATIC FUNCTION Routine 08/15/2017 5:56 Results for PANEL, S AM [employer] H[employer]ORY TEACHER this procedure are in the results section. CBC WITH Routine 08/15/2017 5:56 Results for DIFFERENTIAL, B AM [employer] H[employer]ORY TEACHER this procedu re are in the results section. INCENTIVE SPIROMETRY Routine 08/15/2017 1:23 - RT/RN AM [employer] H[employer]ORY TEACHER INCENTIVE SPIROMETRY Routine 08/15/2017 1:23 - RT/RN AM [employer] HISTORY TEACHER INCENTIVE SPIROMETRY Routine 08/15/2017 1:23 - RT/RN AM H[employer] H[employer]ORY TEACHER INCENTIVE SPIROMETRY Routine 08/15/2017 1:23 - RT/RN AM H[employer] HISTORY TEACHER INCENTIVE SPIROMETRY Routine 08/15/2017 1:23 - RT/RN AM H[employer] HISTORY TEACHER INCENTIVE SPIROMETRY Routine 08/15/2017 1:23 - RT/RN AM H[employer] HISTORY TEACHER INCENTIVE SPIROMETRY Routine 08/15/2017 1:23 - RT/RN AM H[employer] S[employer] HISTORY TEACHER INCENTIVE SPIROMETRY Routine 08/15/2017 1:23 - RT/RN AM H[employer] S[employer]OL HISTORY TEACHER [place] FLUORO LESS THAN 1 RAD - Routine 08/14/2017 8:00 Re sults for HOUR (most inpatients PM HIGH SCHOOL HISTORY TEACHER this proced ure and all are in the outpatients) results section. PATHOLOGY SERVICES Routine 08/14/2017 7:18 Cholecystitis Resul ts for PM H[employer] HISTORY TEACHER this procedure are in the results section. LAPAROSCOPIC 08/14/2017 6:25 Cholecystitis CHOLECYSTECTOMY WITH PM H[employer] HISTORY TEACHER CHOLANGIOGRAM documented in this encounter Results (ABNORMAL) Hepatic Function Panel (08/15/2017 5:56 AM HIGH [employer] HISTORY TEACHER) [facility] Method Time Signature Bilirubin, Total, S 0.8 <=1.2 08/15/2017 [facility] mg/dL 6:53 AM [facility] Bilirubin, Direct, S 0.2 0.0 - 0.3 08/15/2017 [facility] mg/dL 6:53 AM [facility] Aspartate 76 (H) 8 - 43 08/15/2017 [facility] Aminotransferase U/L 6:53 AM [facility] Alanine 81 (H) 7 - 45 08/15/2017 [facility] Aminotransferase U/L 6:53 AM [facility] Alkaline 75 50 - 130 08/15/2017 [facility] Phosphatase, S U/L 6:53 AM [facility] Albumin, S 3.5 3.5 - 5.0 08/15/2017 [facility] g/dL 6:53 AM [facility] Protein, Total, S 6.2 (L) 6.3 - 7.9 08/15/2017 [facility] g/dL 6:53 AM [facility] Specimen Anatomical Collection Method Collection Time Receive d Time (Source) Location / / Volume Laterality Blood (Blood, 08/15/2017 5:56 AM 08/15/20 17 6:14 Venous) [employer] H[employer]ORY TEACHER AM [employer] HISTORY TEACHER Alvin Mathur D.O. LAB BLOOD ADD-ON Performing Organization Address City/State/ZIP Code Phon e Number [facility] [address] [place] [address] [place] (ABNORMAL) CBC with Differential (08/15/2017 5:[address] [facility]) [facility] Method Time Signature Hemoglobin 12.4 11.6 - 08/15/2017 [facility] 15.0 g/dL 6:18 AM [facility] Hematocrit 36.9 35.5 - 08/15/2017 [facility] 44.9 % 6:18 AM [facility] [place] [facility] Erythrocytes 4.20 3.92 - 08/15/2017 [facility] 5.13 6:[address] [facility] x10(12)/L SYSTEM- [facility] [place] [facility] MCV 87.9 78.2 - 08/15/2017 [facility] 97.9 fL 6:18 AM [facility] RBC Distrib Width 13.4 12.2 - 08/15/2017 [facility] 16.1 % 6:18 AM [facility] Platelet Count 159 157 - 371 08/15/2017 [facility] x10(9)/L 6:18 AM [facility] Leukocytes 17.1 (H) 3.4 - 9.6 08/15/2017 [facility] x10(9)/L 6:18 AM [facility] Neutrophils 15.33 (H) 1.56 - 08/15/2017 [facility] 6.45 6:18 AM [facility] x10(9)/L SYSTEM [facility] [place] [facility] Lymphocytes 0.92 (L) 0.95 - 08/15/2017 [facility] 3.07 6:[address] [facility] x10(9)/L SYSTEM [facility] [place] [facility] Monocytes 0.78 0.26 - 08/15/2017 [facility] 0.81 6:18 AM [facility] x10(9)/L SYSTEM [facility] [place] [facility] Eosinophils 0.00 (L) 0.03 - 08/15/2017 [facility] 0.48 6:18 AM [facility] x10(9)/L SYSTEM [facility] [place] [facility] Basophils 0.03 0.01 - 08/15/2017 [facility] 0.08 6:18 AM [facility] x10(9)/L [facility] Specimen Anatomical Collection Method Collection Time Receive d Time (Source) Location / / Volume Laterality Blood (Blood, 08/15/2017 5:56 AM 08/15/20 17 6:14 Venous) H[employer] HISTORY TEACHER AM [employer] HISTORY TEACHER Alvin Mathur D.O. LAB BLOOD ADD-ON Performing Organization Address City/State/ZIP Code Phon e Number [facility] [address] [place] [address] [facility] [place] Fluoro Less Than 1 Hour (08/14/2017 8:00 PM HIGH S[employer]OL HISTORY TEACHER) Specimen (Source) Anatomical Location Collection Method / Collectio n Time Received Time / Laterality Volume Narrative [id number] - 08/14/2017 8:20 PM HIGH S[employer] HISTORY TEACHER This exam does not require a physician interpretation. Please check notes for clinical details. Alvin Mathur D.O. IMG FLUOROSCOPY PROCEDURES Performing Organization Address [facility]/ZIP Code Phon e Number [id number] NA Pathology Services (08/14/2017 7:18 PM HIGH S[employer]OL HISTORY TEACHER) Component Value Ref Test Analysis Performed At [facility] Range Method Time Signature PATHOLOGY Patient Name: DAMIAN TOLENTINO [facility] MR#: [id number] [facility] Submitting Physician: ALVIN MATHUR DO [id number] Specimen #[id number] Performing Lab: ??[facility] ? [address] [place] [id number] Source: Gallbladder and stones Clinical History/Pre-Op Cholecystitis [K81.9] Gross Description The specimen is received in formalin labeled as gallbladder and stones and consists of a previously ope ashli gallbladder measuring 6.3 x 4.0 x 2.0 cm. ??The serosal surface is reyes-green and smooth. ?? No gallstones are identified within the gallbladder or container . ??The mucosa is green-brown and smooth with focal areas of yellow speckling. ? ?The mucosal wall measures 0.3 cm. ??[employer] Supervisor sections are submitted in cassette A1. KG/ed ?? Diagnosis Gallbladder, cholecystectomy: ACUTE NECROTIZING CHOLECYSTITIS. Electronically Signed By SANTY GUERIN MD - 08/16/2017 ed/08/16/2017 Specimen (Source) Anatomical Collection Method Collection Time Re ceived Time Location / / Volume Laterality Tissue 08/14/2017 7:18 PM (Gallbladder) [employer] Alvin Mathur D.O. LAB SURG PATH ORDERABLES Performing Organization Address [facility] [[email or web address]] Code Phon e Number [address] [id number] documented in this encounter Visit Diagnoses Diagnosis Cholecystitis - Primary documented in this encounter Admitting Diagnoses Diagnosis Cholecystitis documented in this encounter Administered Medications Inactive Administered Medications - up to 3 most recent administrations Medication Order MAR Action Action Date Dose Rate Site acetaminophen tablet 1,000 mg Given 08/15/2017 6:00 PM [employer] 1,000 mg (for_TYLENOL) 1,000 mg, oral, Every 6 hours PRN, mild pain or score 1-3 of 10, Starting on Sun08/15/17 at 0123 Given 08/15/2017 12:34 PM [employer] TE[employer]ER 1,[address] tablet 81 mg Given 08/15/2017 8:12 AM [employer]ER 81 mg 81 mg, oral, Daily, First dose on Sun08/15/17 at 0900, Swallow whole. Do NOT crush, chew, or split tablet. calcium carbonate-vitamin D3 1,250 mg (500 Given 08/15 8:12 AM [employer] 1 tablet mg calcium)-200 unit per tablet 1 tablet 1 tablet, oral, Daily with breakfast, First dose on Sun08/15/17 at 0800, calcium carbonate/vitamin D 600 mg/400 units was interchanged for calcium carbonate/vitamin D3 (Same frequency) cholecalciferol tablet 2,000 Units Given 08/15/2017 8:12 AM [employer] 2,000 Units (for_VITAMIN D3) 2,000 Units, oral, Daily, First dose on Sun08/15/17 at 0900 ciprofloxacin in D5W IVPB 400 mg New Bag 08/15/2017 6:37 AM CS T 400 mg 200 mL/hr (for_CIPRO) 400 mg, intravenous, at 200 mL/hr, Administer over 60 Minutes, Once, On Sun08/15/17 at 0700, For 1 dose, Start within 12 hours of last dose. premix bag, Drug Monitoring Program: Pharmacist to adjust medication order based on comorbities and indication., Indications: Prophylaxis, surgical heparin (porcine) Given 08/14/2017 5:48 PM [employer] 5,000 Units Left Lower Abdomen injection 5,000 Units 5,000 Units, subcutaneous, Once, On Sun08/14/17 at 1745, For 1 dose, Intra-Op, Administer prior to induction of anesthesia. heparin (porcine) Given 08/15/2017 5:17 AM [employer] 5,000 Units Left Upper Abdomen injection 5,000 Units 5,000 Units, subcutaneous, 3 times daily, First dose on Sun08/15/17 at 0530 HYDROmorphone injection 1 mg (for_DILAUD ID) Given 08/14/2017 4:07 PM [employer]ER 1 mg 1 mg, intravenous, Every 1 hour PRN, pain, Starting on Sun08/14/17 at 1550 ketorolac injection 15 mg (for_TORADOL) Given 08/15/2017 7:19 AM [employer]ER 15 mg 15 mg, intravenous, Every 6 hours PRN, mild pain or score 1-3 of 10, Starting on Sun08/15/17 at 0123, For 5 days, Adult IV push rate: Over 15 seconds. Peds IV push rate: Over 1 minute. 60 mg dose only for IM, not recommended for IV., Drug Monitoring Program: Pharmacist to adjust medication order based on comorbities and indication. lactated ringers New Bag 08/14/2017 4:12 PM [employer] 75 mL/hr 75 mL/hr 75 mL/hr, intravenous, Continuous, Starting on Sun08/14/17 at 1600, Pre-Op metoprolol tablet 12.5 mg (for_LOPRESSOR ) Given 08/14/2017 4:06 PM [employer]ER 12.5 mg 12.5 mg, oral, Once as needed, if patient did not take their last scheduled dose of beta marielena prior to arrival, Starting on Sun08/14/17 at 1550, For 1 dose, Pre-Op, Do not give if patient does not take scheduled beta blockers, if patient is receiving intravenous vasopressors or inotropes, if heart rate is less than 50 beats per minute, if systolic blood pressure is less than 90 mmHg or if diastolic blood pressure is less than 40 mmHg, or if patient has an allergy to metoprolol. metroNIDAZOLE in NaCl (iso-osm) New Bag 08/15/2017 2:47 PM [employer]ER 500 mg 200 mL/hr IVPB 500 mg (for_FLAGYL) 500 mg, intravenous, at 200 mL/hr, Administer over 30 Minutes, Every 8 hours, First dose on Sun08/15/17 at 0700, For 2 doses, Indications: Prophylaxis, surgical New Bag 08/15/2017 8:12 AM [employer] TE[employer]ER 500 mg 200 mL/hr NaCl 0.9% infusion 10-250 mL/hr, intravenous, As needed, Be tween Consecutive Piggyback Medications, Starting on Sun08/15/17 at 0723, Infuse at the same rate as the piggyback until tubing clears or up to a volume of 20 mL . Select for IV medication administration when no maintenance IV available or when IV medication s are not compatible with maintenance fluid. sennosides-docusate sodium 8.6-50 mg per Given 08/15/2017 8:12 A M [employer] TE[employer]ER 1 tablet tablet 1 tablet (for_SENOKOT-S) 1 tablet, oral, 2 times daily, First dose on Sun08/15/17 at 0900, for constipation sodium chloride 0.9 % injection 10 mL Given 08/14/2017 4:08 PM [employer]ER 10 mL 10 mL, intravenous, Every 8 hours scheduled (RT), First dose on Sun08/14/17 at 2300, Pre-Op, Peripheral Intravenous Catheter and Rapid Infusion Catheter, prior to blood sampling, post blood transfusion or post blood sampling sodium chloride 0.9 % injection 10 mL 10 mL, intravenous, As needed, line care , Peripheral Intravenous Catheter and Rapid Infusion Catheter, Starting on 08/15 at 0723, Prior to blood sampling, post blood transfusion or post blood sampling. sodium chloride 0.9 % injection 3 mL Given 08/15/2017 8:12 AM [employer]ER 3 mL 3 mL, intravenous, As needed, line care, Peripheral Intravenous Catheter and Rapid Infusion Catheter, Starting on Sun08/15/17 at 0723, Prior to and following infusion and between multiple consecutive infusions. sodium chloride 0.9 % injection 3 mL 3 mL, intravenous, Every 12 hours schedu led, First dose on Sun08/15/17 at 0900, Peripheral Intravenous Catheter and Rapi d Infusion Catheter: When no infusion to maintain patency. documented in this encounter Active and Recently Administered Medications Times are shown in [employer]. Scheduled Medication Order 08/13/2017 08/14/2017 08/15/[address] tablet 81 mg 811 (Gi jose - Provider: George Rico R.N.) 81 mg, oral, Daily, First dose on Sun at 0900, Swallow whole. Do NOT crush, chew, or split tablet. calcium carbonate-vitamin D3 1,250 mg (5 00 mg calcium)-200 unit per tablet 1 tablet 811 (Given - Provid er: George Rico R.N.) 1 tablet, oral, Daily with breakfast, Fi rst dose on Sun08/15/17 at 0800, calcium carbonate/vitamin D 600 mg/400 units was interchanged for calcium carbonate/vitamin D3 (Same frequency) cholecalciferol tablet 2,000 Units (for_VITAMIN D3) 12 (Given - Provider: George Rico RMary) 2,000 Units, oral, Daily, First dose on Sun08/15/17 at 0900 ciprofloxacin in D5W IVPB 400 mg (for_CIPRO) (COMPLETED) 1900 (Given - Provider: Kwan Whitley APRN, CHRISTOPHE, D.N.P.) 400 mg, intravenous, at 200 mL/hr, Admin ister over 60 Minutes, Once, On Sun08/14/17 at 1745, For 1 dose, Intra-Op, Preoperatively within 2 hours prior to surgical incision. premix bag, Drug Monitoring Program: Pharmacist to adjust medication order based on comorbities and indication., Indications: Prophylaxis, surgical ciprofloxacin in D5W IVPB 400 mg (for_CIPRO) (COMPLETED) 636 (New Bag - Provider: Rupinder Muro R.N.) 400 mg, intravenous, at 200 mL/hr, Admin ister over 60 Minutes, Once, On Sun08/15/17 at 0700, For 1 dose, Start within 12 hours of last dose. premix bag, Drug Monitoring Program: Pharmacist to adjust me dication order based on comorbities and indication., Indications: Prophylaxis, surgical heparin (porcine) injection 5,000 Units (COMPLETED) 1747 (Given - Provider: Senia Manrique R.N.) 5,000 Units, subcutaneous, Once, On Sun08/14/17 at 1745, For 1 dose, Intra-Op, Administer prior to induction of anesthesia. heparin (porcine) injection 5,000 Units 0517 (Given - Provider: Rupinder Muro R.N.)1400 (Not Given - Provider: George Rico R.N. - Reason: Patient/family refused) 5,000 Units, subcutaneous, 3 times daily, First dose on 07/21 at 0530 metroNIDAZOLE in NaCl (iso-osm) IVPB 500 mg (for_FLAGYL) (CO MPLETED) 1923 (Given - Provider: Kwan Whitley APRN, CHRISTOPHE, D.N.P.) 500 mg, intravenous, at 200 mL/hr, Admin ister over 30 Minutes, Once, On Sun08/14/17 at 1745, For 1 dose, Intra-Op, Preoperatively within 1 hour prior to surgical incision., Indications: Prophylaxis, surgical metroNIDAZOLE in NaCl (iso-osm) IVPB 500 mg (for_FLAGYL) (COMPLE KARUNA) 0812 (New Bag - Provider: George Rico R.N. - Comment: other antibiotic running at this time)1447 (New Bag - Provider: George Rico R.N.) 500 mg, intravenous, at 200 mL/hr, Admin ister over 30 Minutes, Every 8 hours, First dose on Sun08/15/17 at 0700, For 2 doses, Indications: Prophylaxis, surgical metroNIDAZOLE tablet 500 mg (for_FLAGYL) 1900 (Due) 500 mg, oral, 3 times daily, First dose on Sun08/15/17 at 1900, For 5 days, Indications: Intra-abdominal Infection, Community Acquired sennosides-docusate sodium 8.6-50 mg per tablet 1 tablet (for_SE NOKOT-S) 0812 (Given - Provider: George Rico R.N.) 1 tablet, oral, 2 times daily, First dos e on Sun08/15/17 at 0900, for constipation sodium chloride 0.9 % injection 10 mL (CANCELED) 1608 (Given - Provider: Senia Manrique R.N. - Comment: USED TO FLUSH IN MEDICATIONS) 10 mL, intravenous, Every 8 hours schedu led (RT), First dose on Sun08/14/17 at 2300, Pre-Op, Peripheral Intravenous Catheter and Rapid Infusion Catheter, prior to blood sampling, post blood transfusion or post blood sampling sodium chloride 0.9 % injection 3 mL 0900 (Not Given - Provider: George Rico R.N. - Reason: Other) 3 mL, intravenous, Every 12 hours schedu led, First dose on Sun08/15/17 at 0900, Peripheral Intravenous Catheter and Rapid Infusion Catheter: When no infusion to maintain patency. Continuous Medication Order 08/13/2017 08/14/2017 08/15/2017 lactated ringers (CANCELED) 1600 (Cancel ed Entry - Provider: Senia Manrique R.N.)1612 (New Bag - Provider: Senia Manrique R.N.) 75 mL/hr, intravenous, Continuous, Starting on Sun08/14/17 at 1 600, Pre-Op PRN Medication Order 08/13/2017 08/14/2017 08/15/2017 acetaminophen tablet 1,000 mg (for_TYLENOL) 1234 (Given - Provider: Rocio Schmidt R.N.)1800 (Given - Provider: Monika Loera R.N.) 1,000 mg, oral, Every 6 hours PRN, mild pain or score 1-3 of 10, Starting on Sun08/15/17 at 0123 dexamethasone (PF) 10 mg/mL injection 4 mg (for_DECADRON) 4 mg, intravenous, Once as needed, nause a, vomiting, Starting Sun08/15/17 at 0123, For 1 dose, Give only if NOT given during the pre or intraoperative period. If ondansetron ordered, give dexamethasone with first dose of ondansetron. droperidol injection 0.625 mg (for_INAPSINE) 0.625 mg, intravenous, Every 6 hours PRN , nausea, vomiting, Starting Sun08/15/17 at 0123, For 48 hours, Total of 3 doses in 24 hour period. RASS must be -2 or higher to administer. Reassess for nausea or vomiting after at least 10 minutes. I f nausea or vomiting persists administer next ordered antiemetic medications (order for antiemetic medication administration ondansetron then droperidol then promethazine). HYDROmorphone injection 1 mg (for_DILAUDID) 1607 (Given - Provider: Senia Manrique RMary) 1 mg, intravenous, Every 1 hour PRN, pain, Starting on 08/14 at 1550 HYDROmorphone injection 1 mg (for_DILAUDID) 1 mg, intravenous, Every 2 hour PRN, sev ere pain or score 7-10 of 10, breakthrough pain, Starting Sun08/15/17 at 0123, For breakthrough pain unrelieved 30 minutes after PRN oral pain medication is used; or if unable to take oral pain medication. ibuprofen tablet 600 mg (for_ADVIL,MOTRIN) 600 mg, oral, Every 6 hours PRN, moderat e pain or score 4-6 of 10, Starting Sun08/15/17 at 0123, Take with food or milk if GI disturbances occur with use. ketorolac injection 15 mg (for_TORADOL) 07 (Given - Provider: George Rico RNaomiNNaomi) 15 mg, intravenous, Every 6 hours PRN, m ild pain or score 1-3 of 10, Starting on Sun08/15/17 at 0123, For 5 days, Adult IV push rate: Over 15 seconds. Peds IV push rate: Over 1 minute. 60 mg dose only for IM, not recommended for IV., Drug Mo nitoring Program: Pharmacist to adjust medication order based on comorbities and indication. lidocaine 50 mL, bupivacaine PF 50 mL 100 mL injection (CAN ELED) 2100 (Given - Provider: Alvin Mathur D.O.) As needed, Starting on Sun08/14/17 at 2100, Intra-Op metoprolol tablet 12.5 mg (for_LOPRESSOR) (COMPLETED) 1606 (Given - Provider: Senia Manrique R.N.) 12.5 mg, oral, Once as needed, if patien t did not take their last scheduled dose of beta marielena prior to arrival, Starting on Sun08/14/17 at 1550, For 1 dose, Pre-Op, Do not give if patient does not t starr scheduled beta blockers, if patient is receiving intravenous vasopressors or inotropes, if heart rate is less than 50 beats per minute, if systolic blood pressure is less than 90 mmHg or if diastoli c blood pressure is less than 40 mmHg, o r if patient has an allergy to metoprolol. microfibrillar collagen hemostat powder (for_AVITENE FLOUR) (CANCELED) 2032 (Given - Provider: Alvin Mathur D.O. - Comment: liver bed) As needed, Starting on Sun08/14/17 at 2032, Intra-Op NaCl 0.9% infusion 10-250 mL/hr, intravenous, As needed, Be tween Consecutive Piggyback Medications, Starting on Sun08/15/17 at 0723, Infuse at the same rate as the piggyback until tubing clears or up to a volume of 20 mL . Select for IV medication administratio n when no maintenance IV available or when IV medications are not compatible with maintenance fluid. naloxone injection 0.2 mg (for_NARCAN) 0.2 mg, intravenous, As needed, respirat ory depression, Starting Sun08/15/17 at 0123, For respiratory rate less than 8 breaths per minute or RASS score of -3, -4, -5. Apply oxygen to keep oxygen saturations greater than 90% and notify service. ondansetron (PF) injection 4 mg (for_ZOFRAN) 4 mg, intravenous, Every 6 hours PRN, na usea, vomiting, Starting Sun08/15/17 at 0123, For 48 hours, Reassess for nausea or vomiting after at least 10 minutes. If nausea or vomiting persists administer next ordered antiemetic medications (ord er for antiemetic medication administration ondansetron then droperidol then promethazine). ondansetron ODT disintegrating tablet 4 mg (for_ZOFRAN-ODT) 4 mg, oral, 3 times daily PRN, nausea, v omiting, Starting Sun08/15/17 at 0123, For 3 days oxyCODONE IR tablet 10 mg (for_ROXICODONE) 10 mg, oral, Every 4 hours PRN, moderate pain or score 4-6 of 10, severe pain or score 7-10 of 10, Starting Sun08/15/17 at 0123 oxyCODONE IR tablet 5 mg (for_ROXICODONE) 5 mg, oral, Every 6 hours PRN, moderate pain or score 4-6 of 10, Starting Sun08/15/17 at 0123, For 4 days oxyCODONE IR tablet 5 mg (for_ROXICODONE) 1230 (Not Given - Provider: George Rico R.N. - Reason: Other - Comment: took tylenol instead) 5 mg, oral, Every 4 hours PRN, mild pain or score 1-3 of 10, Starting Sun08/15/17 at 0123 promethazine injection 6.25 mg (for_PHENERGAN) 6.25 mg, intravenous, Every 6 hours PRN, nausea, vomiting, Starting Sun08/15/17 at 0123, For 48 hours, RASS must be -2 or higher to administer. Reassess for nausea/vomiting after at least 10 minutes. I f nausea or vomiting persists administer next ordered antiemetic medications (order for antiemetic medication administration ondansetron then droperidol then promethazine). If given IV push: Administer no more than 12.5 mg over 2 minutes. sodium chloride 0.9 % injection 10 mL 10 mL, intravenous, As needed, line care , Peripheral Intravenous Catheter and Rapid Infusion Catheter, Starting on Sun08/15/17 at 0723, Prior to blood sampling, post blood transfusion or post blood sampling. sodium chloride 0.9 % injection 3 mL 0812 (Given - Provider: George Rico R.N.) 3 mL, intravenous, As needed, line care, Peripheral Intravenous Catheter and Rapid Infusion Catheter, Starting on Sun08/15/17 at 0723, Prior to and following infusion and between multiple consecutive infusions. documented in this encounter
--- OUTSIDE RECORDS SUMMARY | 2022-05-04 10:21 | XMS_ITS | Encounter Summary ---
:1955 Author Organization [facility] Address [address] [place] [address] Care Team Providers Name Role Phone Unavailable [...] Expiration Date Visits Requ ested Visits Authorized [id number] 1 1 Encounter Details Date Type Department Care Team Description 08/14/2017 Surgery [facility] MAIN OR Alvin Mathur, LAPAROSCOPIC [address]EN D.O. CHOLECYSTECTOMY WITH KRISTINE JOHNSON [address] attempted CHOLANGIOGRAM [id number] KRISTINE Rosa [id number] Social History Tobacco Use Types Packs/Day Years [...] or relatives? How often do you attend evangelical or alevism More than 4 time s per year 09/17/2021 services? Do you belong to any clubs or organizations Yes 09/17/2021 such as evangelical groups, unions, fraternal or athletic groups, or [...] Sign Reading Time Taken Comments Blood Pressure 167/66 08/14/2017 4:33 PM HEEL BUFFER Pulse 87 08/14/2017 4:33 PM HEEL BUFFER Temperature 37.5 ??C (99.5 ??F) 08/14/2017 4:33 PM HEEL BUFFER Respiratory Rate 14 08/14/2017 4:33 PM HEEL BUFFER Oxygen Saturation - - Inhaled Oxygen Concentration - - Weight 97.1 kg (214 lb 1.1 oz) 08/14/2017 4:33 PM HEEL BUFFER Height 157.5 cm (5' 2) 08/14/2017 4:33 PM HEEL BUFFER Body Mass Index 39.52 08/14/2017 4:33 PM HEEL BUFFER documented in this encounter Discharge Summaries Alvin [...] Case IDs Date Procedure Surgeon Location Status [id number] 08/14/17 LAPAROSCOPIC CHOLECYSTECTOMY WITH attempted CHOLANGIOGRAM Alvin Mathur D.O. [facility] OR [facility] DISCHARGE DISPOSITION Home or Self Care [1] [...] tablet Commonly known as: Allergy Immunotherapy omega 8-euf-blw-fish oil 600 mg-216 mg- 324 mg-1,200 mg [...] THIS ADMISSION None CONDITION AT DISCHARGE good BUFFER documented in this encounter Discharge Instructions AttachmentsThe following attachments cannot be sent through Care Everywhere.Care of Your Surgical Drainage Tube (Gambian)documented in this encounter Medications at Time of [...] D3) 2,000 mouth daily. Unit capsule omega 6-yqk-aqg-fish oil Take 1 capsule by 0 10/1910/03/2021 [...] own drain for the next several days. BUFFER Nila Farooq M.D. - 08/15/2017 8:19 AM CST Anesthesia Post-Op Visit Patient: Damian Tolentino Anesthesia Post-Op Visit Postoperative day: 1 Follow-up type: inpatient Cardiovascular status: hemodynamic (HR & BP) acceptable Respiratory status: patent airway with spontaneous effort Oxygen requirements: room air Level of consciousness: awake Pain score: pain adequately controlled and /or at baseline Post Op nausea/vomiting: none BUFFER documented in this encounter Nursing Notes Monika [...] and demonstrated proper emptying of TAMICA drain BUFFER George Rico R.N. - 08/15/2017 2:15 PM [...] to discharge later today once Doctor rounds BUFFER Rupinder Muro R.N. - 08/15/2017 4:21 AM CST PAIN - [...] pain control and used call light appropriately. BUFFER Senia Manrique R.N. - 08/14/2017 4:36 PM CST Goals: Patient will have adequate pain control throughout shift Identify possible barriers to meeting goals/advancing plan of care: Acute illness Stability of the patient: Moderately Unstable - Medium risk of patient condition declining or worsening End of Shift Summary:Patient has had adequate pain control throughout shift BUFFER documented in this encounter OR Notes Op Note - Alvin Mathur D.O. - 08/14/2017 7:13 PM CST FULL OP NOTE Procedure(s): LAPAROSCOPIC CHOLECYSTECTOMY WITH attempted CHOLANGIOGRAM Surgeon(s) and Role: * Alvin Mathur D.O. - Primary Word Processing Operator: Susan Bear L.P.N. Anesthesia Type: General Pre-Operative [...] and stones Tissue Gallbladder PATHOLOGY SERVICES Yahaira Abbasi, R.N. 08/14/20171917 Drains GI Tubes (Adults) Orogastric Center (Active) Closed/Suction Drain Right RUQ Bulb (Active) Estimated Blood Loss 150cc Implants * No implants in log * Alvin Mathur D.O. TPR BUFFER Brief Op Note - Alvin Mathur D.O. [...] and stones Tissue Gallbladder PATHOLOGY SERVICES Yahaira Abbasi, R.N. 08/14/20171917 Drains GI Tubes (Adults) Orogastric Center (Active) Closed/Suction Drain Right RUQ Bulb (Active) Estimated Blood Loss 150cc Implants * No implants in log * Alvin Mathur D.O. BUFFER documented in this encounter Plan of Treatment Scheduled Referrals Name Type Priority Associated Diagnoses Order S [facility] General Surgery Outpatient Referral Routine Cholecystitis Expe cted: Post Op (clinic) 08/22/2017 (Approximate), Expires: 08/15/2020 documented as of this encounter Procedures Procedure Name Priority Date/Time Associated Comments Diagnosis HEPATIC FUNCTION Routine 08/15/2017 5:56 Results for PANEL, S AM HEEL BUFFER this procedure are in the results section. CBC WITH Routine 08/15/2017 5:56 Results for DIFFERENTIAL, B AM HEEL BUFFER this procedu re are in the results section. INCENTIVE SPIROMETRY Routine 08/15/2017 1:23 - RT/RN AM HEEL BUFFER INCENTIVE SPIROMETRY Routine 08/15/2017 1:23 - RT/RN AM HEEL BUFFER INCENTIVE SPIROMETRY Routine 08/15/2017 1:23 - RT/RN AM HEEL BUFFER INCENTIVE SPIROMETRY Routine 08/15/2017 1:23 - RT/RN AM HEEL BUFFER INCENTIVE SPIROMETRY Routine 08/15/2017 1:23 - RT/RN AM HEEL BUFFER INCENTIVE SPIROMETRY Routine 08/15/2017 1:23 - RT/RN AM HEEL BUFFER INCENTIVE SPIROMETRY Routine 08/15/2017 1:23 - RT/RN AM HEEL BUFFER INCENTIVE SPIROMETRY Routine 08/15/2017 1:23 - RT/RN AM HEEL BUFFER FL FLUORO LESS THAN 1 RAD - Routine 08/14/2017 8:00 Re sults for HOUR (most inpatients PM HEEL BUFFER this proced ure and all are in the outpatients) results section. PATHOLOGY SERVICES Routine 08/14/2017 7:18 Cholecystitis Resul ts for PM HEEL BUFFER this procedure are in the results section. LAPAROSCOPIC 08/14/2017 6:25 Cholecystitis CHOLECYSTECTOMY WITH PM HEEL BUFFER CHOLANGIOGRAM documented in this encounter Results (ABNORMAL) Hepatic Function Panel (08/15/2017 5:56 AM HEEL BUFFER) [facility] Method Time Signature Bilirubin, Total, S 0.8 <=1.2 08/15/2017 [facility] mg/dL 6:53 AM [facility] [place] [facility] Bilirubin, Direct, S 0.2 0.0 - 0.3 08/15/2017 [facility] mg/dL 6:53 AM [facility] Aspartate 76 (H) 8 - 43 08/15/2017 [facility] Aminotransferase U/L 6:53 AM [facility] [employer] (AST), S [facility] Alanine 81 (H) 7 - 45 08/15/2017 [facility] Aminotransferase U/L 6:53 AM [facility] [employer] (ALT), S [facility] [place] [facility] Alkaline 75 50 - 130 08/15/2017 [facility] Phosphatase, S U/L 6:53 AM [facility] Albumin, S 3.5 3.5 - 5.0 08/15/2017 [facility] g/dL 6:53 AM [facility] Protein, Total, S 6.2 (L) 6.3 - 7.9 08/15/2017 [facility] g/dL 6:53 AM [facility] Specimen Anatomical Collection Method Collection Time Receive d Time (Source) Location / / Volume Laterality Blood (Blood, 08/15/2017 5:56 AM 08/15/20 17 6:14 Venous) HEEL BUFFER AM [facility] Alvin Mathur D.O. LAB BLOOD ADD-ON Performing Organization Address City/State/ZIP Code Phon e Number [place] [id number] [place] [address] [place] (ABNORMAL) CBC with Differential (08/15/2017 5:56 AM [facility]) [facility] Method Time Signature Hemoglobin 12.4 11.6 - 08/15/2017 [facility] 15.0 g/dL 6:18 AM [facility] Hematocrit 36.9 35.5 - 08/15/2017 [facility] 44.9 % 6:18 AM [facility] Erythrocytes 4.20 3.92 - 08/15/2017 [facility] 5.13 6:18 AM [facility] [employer] x10(12)/L [facility] [employer] [facility] MCV 87.9 78.2 - 08/15/2017 [facility] 97.9 fL 6:18 AM [facility] RBC Distrib Width 13.4 12.2 - 08/15/2017 [facility] 16.1 % 6:18 AM [facility] Platelet Count 159 157 - 371 08/15/2017 [facility] x10(9)/L 6:18 AM [facility] Leukocytes 17.1 (H) 3.4 - 9.6 08/15/2017 [facility] x10(9)/L 6:18 AM [facility] [place] [facility] Neutrophils 15.33 (H) 1.56 - 08/15/2017 [facility] 6.45 6:18 AM [facility] HEALTH x10(9)/L [facility] [place] [facility] Lymphocytes 0.92 (L) 0.95 - 08/15/2017 [facility] 3.07 6:18 AM HEEL BUFFER HEALTH x10(9)/L [facility] [place] [facility] Monocytes 0.78 0.26 - 08/15/2017 [facility] 0.81 6:18 AM HEEL BU[facility] HEALTH x10(9)/L [facility] [place] [facility] Eosinophils 0.00 (L) 0.03 - 08/15/2017 [facility] 0.48 6:18 AM [facility] HEALTH x10(9)/L [facility] [place] [facility] Basophils 0.03 0.01 - 08/15/2017 [facility] 0.08 6:18 AM [facility] HEALTH x10(9)/L [facility] [place] [facility] Specimen Anatomical Collection Method Collection Time Receive d Time (Source) Location / / Volume Laterality Blood (Blood, 08/15/2017 5:56 AM 08/15/20 17 6:14 Venous) HEEL BUFFER AM HEEL BUFFER Alvin Mathur D.O. LAB BLOOD ADD-ON Performing Organization Address City/State/ZIP Code Phon e Number [facility] [address] [place] [address] [facility] [place] Fluoro Less Than 1 Hour (08/14/2017 8:00 PM HEEL BUFFER) Specimen (Source) Anatomical Location Collection Method / Collectio n Time Received Time / Laterality Volume Narrative [id number] - 08/14/2017 8:20 PM HEEL BUFFER This exam does not require a physician interpretation. Please check notes for clinical details. Alvin Mathur D.O. IMG FLUOROSCOPY PROCEDURES Performing Organization Address City/State/ZIP Code Phon e Number [id number] NA Pathology Services (08/14/2017 7:18 PM HEEL BUFFER) Component Value Ref Test Analysis Performed At [facility] Range Method Time Signature PATHOLOGY Patient Name: DAMIAN TOLENTINO [facility] MR#: [id number] STEVE Submitting Physician: ALVIN MATHUR DO [id number] Specimen #[id number] Performing Lab: ??[facility] ? [address] [place] [id number] Source: Gallbladder and stones Clinical History/Pre-Op Cholecystitis [...] ? ?The mucosal wall measures 0.3 cm. ??Technology Trainer sections are submitted in cassette A1. KG/ed ?? Diagnosis Gallbladder, cholecystectomy: ACUTE NECROTIZING CHOLECYSTITIS. Electronically Signed By SANTY GUERIN MD - 08/16/2017 ed/08/16/2017 Specimen (Source) Anatomical Collection Method Collection Time Re ceived Time Location / / Volume Laterality Tissue 08/14/2017 7:18 PM (Gallbladder) HEEL BUFFER Alvin Mathur D.O. LAB SURG PATH ORDERABLES Performing Organization Address City/State/ZIP Code Phon e Number [facility] [address] [address] documented in this encounter Visit Diagnoses Diagnosis Cholecystitis - Primary Cholecystitis documented in this encounter Admitting Diagnoses Diagnosis Cholecystitis documented in this encounter Administered Medications Inactive Administered Medications - up to 3 most recent administrations Medication Order MAR Action Action Date Dose Rate Site acetaminophen tablet 1,000 mg Given 08/15/2017 6:00 PM HEEL BUFFER 1,000 mg (for_TYLENOL) 1,000 mg, oral, Every 6 hours PRN, mild pain or score 1-3 of 10, Starting on Sun08/15/17 at 0123 Given 08/15/2017 12:34 PM HEEL BUFFER 1,[address] tablet 81 mg Given 08/15/2017 8:12 AM HEEL BUFFER 81 mg 81 mg, oral, Daily, First dose on Sun08/15/17 at 0900, Swallow whole. Do NOT crush, chew, or split tablet. calcium carbonate-vitamin D3 1,250 mg (500 Given 08/15 8:12 AM HEEL BUFFER 1 tablet mg calcium)-200 unit per tablet 1 tablet 1 tablet, oral, Daily with breakfast, First dose on Sun08/15/17 at 0800, calcium carbonate/vitamin D 600 mg/400 units was interchanged for calcium carbonate/vitamin D3 (Same frequency) cholecalciferol tablet 2,000 Units Given 08/15/2017 8:12 AM HEEL BUFFER 2,000 Units (for_VITAMIN D3) 2,000 Units, oral, Daily, First dose on Sun08/15/17 at 0900 heparin (porcine) Given 08/15/2017 5:17 AM HEEL BUFFER 5,000 Units Left Upper Abdomen injection 5,000 Units 5,000 Units, subcutaneous, 3 times daily, First dose on Sun08/15/17 at 0530 HYDROmorphone injection 1 mg (for_DILAUD ID) Given 08/14/2017 4:07 PM HEEL BUFFER 1 mg 1 mg, intravenous, Every 1 hour PRN, pain, Starting on Sun08/14/17 at 1550 ketorolac injection 15 mg (for_TORADOL) Given 08/15/2017 7:19 AM HEEL BUFFER 15 mg 15 mg, intravenous, Every 6 [...] and indication. lidocaine 50 mL, bupivacaine PF Given 08/14/2017 9:00 PM HEEL BUFFER 13 mL Abdominal Tissue 50 mL 100 mL injection As needed, Starting on Sun08/14/17 at 2100, Intra-Op microfibrillar collagen Given 08/14/2017 8:33 PM 1 application Abdominal Tissue hemostat powder HEEL BUFFER (for_AVITENE FLOUR) As needed, Starting on Sun08/14/17 at 2033, Intra-Op NaCl 0.9% infusion 10-250 mL/hr, intravenous, [...] mg per Given 08/15/2017 8:12 A M HEEL BUFFER 1 tablet tablet 1 tablet (for_SENOKOT-S) 1 [...] injection 3 mL Given 08/15/2017 8:12 AM HEEL BUFFER 3 mL 3 mL, intravenous, As needed, [...] Recently Administered Medications Times are shown in HEEL BUFFER. Scheduled Medication Order 08/13/2017 08/14/2017 08/15/2017 aspirin [...] frequency) cholecalciferol tablet 2,000 Units (for_VITAMIN D3) 811 (Given - Provider: George Rico R.N.) 2,000 Units, oral, Daily, First dose on Sun08/15/17 at 0900 ciprofloxacin in D5W IVPB 400 mg (for_CIPRO) (COMPLETED) 1900 (Given - Provider: Kwan Whitley APRN, SALES TRAINER, D.N.P.) 400 mg, intravenous, at 200 mL/hr, Admin ister over 60 Minutes, Once, On Sun08/14/17 at 1745, For 1 dose, Intra-Op, Preoperatively within 2 hours prior to surgical incision. premix bag, Drug Monitoring Program: Pharmacist to adjust medication order based on comorbities and indication., Indications: Prophylaxis, surgical ciprofloxacin in D5W IVPB 400 mg (for_CIPRO) (COMPLETED) 0637 (New Bag - Provider: Rupinder Muro R.N.) 400 mg, intravenous, at 200 mL/hr, Admin ister over 60 Minutes, Once, On Sun08/15/17 at 0700, For 1 dose, Start within 12 hours of last dose. premix bag, Drug Monitoring Program: Pharmacist to adjust me dication order based on comorbities and indication., Indications: Prophylaxis, surgical heparin (porcine) injection 5,000 Units (COMPLETED) 174 (Given - Provider: Senia Manrique R.N.) 5,000 [...] (iso-osm) IVPB 500 mg (for_FLAGYL) (CO MPLETED) 192 (Given - Provider: Kwan Whitley APRN, CRNA, D.N.P.) 500 mg, intravenous, at 200 mL/hr, [...] (for_DILAUDID) 1607 (Given - Provider: Senia Manrique R.N.) 1 mg, intravenous, Every 1 hour PRN, [...] with use. ketorolac injection 15 mg (for_TORADOL) 0719 (Given - Provider: George Rico R.N.) 15 mg, intravenous, Every 6 hours PRN, [...] bupivacaine PF 50 mL 100 mL injection (CANC ELED) 2100 (Given - Provider: Alvin Mathur [...]
--- OUTSIDE RECORDS SUMMARY | 2022-05-04 10:21 | XMS_ITS | Encounter Summary ---
:1955 Author Organization [facility] Address [address] [place] [address] Care Team Providers Name Role Phone Unavailable Primary Care Provider Unavailable Reason for Visit Reason Comments Cholelithiasis consult Appointment Request (Routine) - Closed Specialty Diagnoses / Procedures Referred By Contact Refer red To Contact Referral ID Status Reason Start Date Expiration Date Visits Requ ested Visits Authorized [id number] Closed 08/14/2017 02/10/2018 1 1 Encounter Details Date Type Department Care Team Description 08/14/2017 Comprehensive [facility] [address] [place] [id number] [phone] Social History Tobacco Use Types Packs/Day Years [...] or relatives? How often do you attend worship or confucianism More than 4 time s per year 09/17/2021 services? Do you belong to any clubs or organizations Yes 09/17/2021 such as worship groups, unions, fraternal or athletic groups, or [...] Sign Reading Time Taken Comments Blood Pressure 157/74 08/14/2017 1:47 PM BUMPER OPERATOR Pulse 84 08/14/2017 1:47 PM BUMPER OPERATOR Temperature 37.3 ??C (99.1 ??F) 08/14/2017 1:42 PM BUMPER OPERATOR Respiratory Rate - - Oxygen Saturation - - Inhaled Oxygen Concentration - - Weight - - Height - - Body Mass Index - - documented in this encounter Consult Notes Augie Feldman D.O. - 08/14/2017 12:00 AM CST SUBJECTIVE Ms. Tolentino is a 62-year-old female who was referred to the General Surgery Clinic from the emergency room for gallbladder issues. She describes an onset Yudith of fairly severe epigastric abdominal pain extending through the back. That episode lasted several hours and then went away. On the pain came again with mid-upper back pain and epigastric pain, feelings of fullness and bloating. She presented the ER last night and had a full cardiac workup which was negative. Dr. Berry at that time suspected biliary colic and brought her back today for an ultrasound. Her pain has not gotten any better. The patient states that she is miserable and cannot wait for surgical relief. She denies fevers or chills. She has had some mild nausea but no vomiting. ALLERGIES/CONTRAINDICATIONS Ceftin. CURRENT MEDICATIONS Tylenol extra-strength 500 mg as needed. Aspirin 81 mg daily. Calcium and vitamin D daily. Ibuprofen as needed. MEDICAL HISTORY Significant for hyperlipidemia and osteopenia, history of psoriasis. She denies history of coronary artery disease, myocardial infarction, congestive heart failure, cardiac catheterization, rheumatic fever, diabetes, seizures, strokes, hepatitis, peptic ulcer disease, cancers, or kidney disease. SURGICAL HISTORY Left ankle ORIF x2 in 2001, left hand de Quervain's contracture, colonoscopy 5 years ago and tonsillectomy as a child. SOCIAL HISTORY Patient denies tobacco history, denies alcohol history. 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 PAST OBSTETRICAL HISTORY: 0, para 0. Last menstrual period at age 42. She is up to date on her breast exams and mammograms. FAMILY HISTORY Significant for mother with breast cancer. REVIEW OF SYSTEMS GENERAL: Negative. SKIN/HAIR: Negative, except for the psoriasis. EYES, EARS, NOSE, AND THROAT: Negative. STOMACH AND BOWELS: Significant for the chief complaint. KIDNEY/BLADDER/REPRODUCTIVE SYSTEM: Negative. NERVOUS SYSTEM: Negative. CARDIOPULMONARY SYSTEM: Negative. OBJECTIVE PHYSICAL EXAMINATION General: Ms. Tolentino is a 62-year-old well-developed, well-nourished, morbidly obese female. She is alert and oriented to person, place, and time. She is reactive and stable, responds appropriately to questions. Her appearance is consistent with stated age. Vital Signs: Temperature 37.3, pulse 84, blood pressure 157/74. Height 157 cm, weight 97.8 kg, BMI is 39.4. O2 sat is 96% on room air. HEENT: Essentially unremarkable. Pupils are equal and react to light and accommodation. Extraocular muscles are intact. Tongue in midline. Tonsils are atrophic. Teeth in good repair. Neck: Supple with no palpable lymphadenopathy. Trachea is midline. Thyroid not enlarged. No carotid bruits auscultated. Heart: Rate and rhythm regular without clicks or murmurs. Lungs: Clear to auscultation bilaterally without rales, rhonchi, or wheezes. DIAGNOSTICS Chest x-ray shows no infiltrates. EKG shows sinus rhythm without ischemia. Ultrasound today shows distended gallbladder without gallbladder wall thickening. There are sludge and stones within the gallbladder. Hepatic function panel is essentially within normal limits. There is no elevation of liver fun ction or alkaline phosphatase. Her bilirubin is normal. Lipase is normal at 27. Basic metabolic panel is unremarkable. Glucose is normal at 122. White blood count is elevated at 12.7, this is up from 10.3 last night. Hemoglobin and hematocrit 13.8 and 40.5 respectively. ASSESSMENT / PLAN #1 Acute and chronic cholecystitis and cholelithiasis RECOMMENDATIONS: 1. Admission. 2. IV antibiotics. 3. Laparoscopic cholecystectomy with cholangiogram. Patient understands the nature of the procedure.She understands the risks, complications including infection, bleeding, injury to the liver, the bowel or the bile ducts as well as the potential for open surgery. She gives informed consent. Patient should be at average risk for the proposed surgery and anesthesia without any significant cardiopulmonary risk factors. Job ID: [id number] ER OPERATOR documented in this encounter Plan of Treatment Not on filedocumented as of this encounter Visit Diagnoses Diagnosis Cholecystitis - Primary documented in this encounter
--- OUTSIDE RECORDS SUMMARY | 2022-05-04 10:21 | XMS_ITS | Encounter Summary ---
:1955 Author Organization [facility] Address [address] [place] [address] Care Team Providers Name Role Phone Unavailable Primary Care Provider Unavailable Reason for Visit Auth/Cert Specialty Diagnoses / Procedures Referred By Contact Refer red To Contact Diagnoses Calculus of bile duct without cholangitis or cholecystitis with obstruction Calculus of bile duct without cholangitis or cholecystitis with obstruction Procedures HI CHOLECYSTECTOMY W CHOLANGIOGR Gallbladder removal Referral ID Status Reason Start Date Expiration Date Visits Requ ested Visits Authorized [id number] 1 1 Encounter Details Date Type Department Care Team Description 08/14/2017 Anesthesia Event [facility] MAIN OR Kwan Whitley APRN, BODY FITTER [address] [place] [address] 701 Nila Reza M.D. [address] [place] [address] [place] [phone] Anesthesia Record Procedure Summary Procedure Name Responsible Anesthesia Start Anesthesia Stop Anesthesiologist Time Time LAPAROSCOPIC Kwan Whitley APRN, 08/14/17 1846 0 CHOLECYSTECTOMY WITH BODY FITTER attempted CHOLANGIOGRAM Events Date Time Event Comment 08/14/2017 1635 1845 In Room 1846 An Start Machine/Equipmen t Checked Infection Precautions Foll owed Procedure/Site Verified NPO Sta tus Verified Supine Standard ASA Mon itors Applied 1854 An Induction 185 An Intubation 1899 Turnover to Proceduralist 1912 Proc Start 2105 Turnover to ANE Staff 2110 Proc Fin 2110 Airway Removal Criteria Met 2110 Extubation/Airway Removed 2118 an stop data 2119 Out of Room 2129 An End I completed my h andoff to the receiving staff during [facility] we 1. Identified the patient 2. Ident ified the responsible provider 3. Revi ewed the pertinent medical history 4. Discussed the surgical course 5. Review ed intra-op anesthesia management and i ssues during anesthesia 6. Set expectati ons for post-procedure period 7. Allowe d opportunity for questions and ac knowledgement of understanding. Name Total midazolam 1 mg/mL injection 2 mg fentanyl injection 50 mcg/mL 100 mcg lidocaine 2% (mg) injection 10 mg propofol 10 mg/mL 200 mg succinylcholine 20 mg/mL injection 140 mg rocuronium 10 mg/mL injection 60 mg ondansetron 4 mg/2 mL injection 4 mg ciprofloxacin in D5W IVPB 400 mg (for_CIPRO) 400 mg dexamethasone 4 mg/mL injection 4 mg HYDROmorphone 1 mg/mL injection 1 mg metroNIDAZOLE in NaCl (iso-osm) IVPB 500 mg (for_FLAGY L) 500 mg Lactated Ringers Free Drip 1,000 mL Agents No agents on file. Blood No blood administrations on file. Lines, Drains, and Airways Type Details Placement Removal Closed/Suction Drain 08/14/17; 2025; 1; 08/14/172025 by Right; RUQ; Bulb; 10 mm; Yahaira Abbasi S, R.N. 1 Peripheral IV Placement Date: 08/14/17 0847 by 08/15/17 171 b y 08/14/17; Placement Georgette George M elissa, Time: 846; Catheter J, R.N. C.N.A. Size: 20 G; Orientation: Right; Location: Antecubital; Site Prep: Chlorhexidine (Preferred); Technique: Anatomical landmarks; Insertion Attempts: 1; Removal Date: 08/15/17; Removal Time: 1718; Removal Reason: Per order NG/OG Tube 08/14/17; 1903; 08/14/171903 by 08/15/171748 b y Orogastric; 18 Fr; Kwan Whitley Kesti, Ju ne A, R.N. Center; 08/15/17; 1748 CASINO CASHIER MANAGERCHRISTOPHE Moon ETT Placement Date: 08/14/171909 by 08/14/172110 b y 08/14/17; Placement Kwan Whitley, Kwan Whitley, Time: 1909 (created via CHRISTOPHE JUNG APRN, CR NA procedure documentation); Mask Ventilation: Oral/Nasal airway needed; Type: Standard ETT; Single Lumen Tube Size: 7 mm; Cuffed: Yes; Location: Oral; Grade View: Grade 2B; Insertion Attempts: 1; Removal Date: 08/14/17; Removal Time: 2110 (RETIRED) Incision 08/14/17; 1925; Abdomen; 08/14/171925 by [id number] by dermabond; Yahaira Chen, RNaomiNNaomi May m-Ypztyp-Uytaojsz FABRIC 2X3.75 (x4); nd, Scheduli ng 05/10/21 (Removed by Automated [facility] Job background completion utility); 141 (Removed by background completion utility) documented in this encounter Social History Tobacco [...] or relatives? How often do you attend uatsdin or yarsanism More than 4 time s per year 09/17/2021 services? Do you belong to any clubs or organizations Yes 09/17/2021 such as uatsdin groups, unions, fraternal or athletic groups, or [...] encounter OR Notes Anesthesia Postprocedure Evaluation - Kwan Whitley APRN, CRNA, D.N.P. - 08/16/2017 6:56 AM CST Patient: Colleen Tolentino Procedure Summary Date: 08/14/17 Room / Location: OR [address] [place] [address] 1409 / [facility] OR Anesthesia Start: 1845 Anesthesia Stop: 2129 Procedure: LAPAROSCOPIC CHOLECYSTECTOMY WITH attempted CHOLANGIOGRAM (N/A ) Diagnosis: Cholecystitis (Cholecystitis [K81.9]) Surgeon: Augie Feldman D.O. Responsible Provider: Kwan Whitley APRN, CRNA, D.N.P. Anesthesia Type: general ASA Status: 2 - Emergent Anesthesia Type: general Last vitals BP 128/56 Temp 36.5 Pulse 79 Resp 16 SpO2 97 Anesthesia Post Evaluation Patient Disposition: dismissal Cardiovascular status: hemodynamics (HR & BP) acceptable Respiratory status: patent airway with spontaneous effort Temperature: normothermic Oxygen requirements: room air Level of consciousness: awake Pain score: pain adequately controlled and/or at baseline Post Op nausea/vomiting: none Hydration status: euvolemic LOGIC DEVELOPER Anesthesia Procedure Notes - Kwan Whitley APRN, CRNA, D.N.P. - 08/14/2017 7:09 PM CSTAssociated Order(s): ANESTHESIA INTUBATION Airway Patient location during procedure: OR Performed by: Kwan Whitley Authorized by: Kwan Whitley Pre procedure details Pre evaluation for airway management: procedure Urgency: elective Preop assessment of probable difficulty: no difficulty anticipated Sedation level: anesthetized Preoxygenation: bag valve mask Procedure details Mask difficulty assessment: oral/nasal airway needed Final airway type: video laryngoscope Laryngeal Manipulation: no Final best view of glottic structures - Cormack/Lehane Score: grade 2A ETT location: oral VL device: storz CMAC Storz CMAC blade size: D - adult Adult tube size: 7 Adult ETT distance at teeth/gum: 23 Oral tube type: standard ETT Cuffed: yes Number of attempt to successful placement: 1 Airway confirmation: bilateral breath sounds, positive ETCO2 and bilateral chest rise Other previous techniques attempted: direct laryngoscopy; intubation Number of other approaches attempted: 1 Previous direct laryngoscopy: best view of glottic structures: grade 2B Post procedure details Procedure outcome: successful Airway event: no complications Additional Comments Between a grade 2a and 2b airway with DL (hogan 2). Unable to pass tube in glottic airway. Switchedto CMAC with success x1. LOGIC DEVELOPER Anesthesia Preprocedure Evaluation - Nila Farooq M.D. - 08/14/2017 4:33 PM CST Anesthesia Pre-Evaluation Review of Systems and Problem List PROBLEM LIST Relevant Problems (+) Obesity Body Mass Index 30-39.9 Adult EKG-NSR OBJECTIVE PHYSICAL EXAMINATION Airway (HEENT) Mallampati: III TM Distance: <3 FB Neck ROM: Limited] Cardiovascular Rhythm: Regular Rate: Normal Cardiovascular Assessment: Normal Pulmonary Pulmonary Assessment: Clear Neurological Normal Dental Normal General / Constitutional Normal ASSESSMENT / PLAN ANESTHESIA PLAN ASA: 2 - Emergent Anesthesia Plan: general Patient seen and allergies reviewed; anesthesia plan and risks discussed directly with patient / legal guardian, or through an lead pl sql developer; patient evaluated and approved for anesthesia / sedation. The use of blood products not discussed NPO > 8 hours LOGIC DEVELOPER documented in this encounter Miscellaneous Notes Addendum Note - Kwan Whitley APRN, CRNA, D.N.P. - 08/23/2017 10:20 AM MARKLOGIC DEVELOPER Addendum created 08/23/17 1020 by Kwan Whitley APRN, CRNA, D.N.P. Anesthesia Intra Meds edited LOGIC DEVELOPER documented in this encounter Plan of Treatment Not on filedocumented as of this encounter Procedures Procedure Name Priority Date/Time Associated Comments Diagnosis LDA ANE ENDOTRACHEAL Routine 08/14/2017 7:09 PM R esults for this AIRWAY MARKLOGIC DEVELOPER procedure are i n the results section. documented in this encounter Results LDA ANE ENDOTRACHEAL AIRWAY (08/14/2017 7:09 PM MARKLOGIC DEVELOPER) Narrative Kwan Whitley APRN, CRNA, D.N.P. - 08/14/2017 7:09 PM MARKLOGIC DEVELOPER Kwan Whitley APRN, CRNA, D.N.P. ? 08/14/2017 ??7:10 PM Airway Patient location during procedure: OR Performed by: Kwan Whitley Authorized by: Kwan Whitley Pre procedure details ?? Pre evaluation for airway management : procedure ?? Urgency: elective ?? Preop assessment of probable difficu lty: no difficulty anticipated ?? Sedation level: anesthetized ?? Preoxygenation: bag valve mask Procedure details ??Mask difficulty assessment: oral/nasa l airway needed ?? Final airway type: video laryngoscop e Laryngeal Manipulation: no ? Final best view of glottic structure s - Cormack/Lehane Score: grade 2A ?? ETT location: oral ?? VL device: storz CMAC ?? Storz CMAC blade size: D - adult ?? Adult tube size: 7 ?? Adult ETT distance at teeth/gum: 23 ?? Oral tube type: standard ETT ?? Cuffed: yes ?? Number of attempt to successful plac ement: 1 ?? Airway confirmation: bilateral breat h sounds, positive ETCO2 and bilateral chest rise ?? Other previous techniques attempted: direct laryngoscopy; intubation ?? Number of other approaches attempted : 1 ?? Previous direct laryngoscopy: best v iew of glottic structures: grade 2B Post procedure details ?? Procedure outcome: successful ? Airway event: no complications Additional Comments Between a grade 2a and 2b airway with DL (hogan 2). Unable to pass tube in glottic airway. Switched to CMAC with success x1. ?? Procedure Note Kwan Whitley APRN, CRNA, D.N.P. - 08/14/2017 7:09 PM CST Airway Patient location during procedure: OR Performed by: Kwan Whitley Authorized by: Kwan Whitley Pre procedure details Pre evaluation for airway management: p rocedure Urgency: elective Preop assessment of probable difficulty : no difficulty anticipated Sedation level: anesthetized Preoxygenation: bag valve mask Procedure details Mask difficulty assessment: oral/nasal airway needed Final airway type: video laryngoscope Laryngeal Manipulation: no Final best view of glottic structures - Cormack/Lehane Score: grade 2A ETT location: oral VL device: storz CMAC Storz CMAC blade size: D - adult Adult tube size: 7 Adult ETT distance at teeth/gum: 23 Oral tube type: standard ETT Cuffed: yes Number of attempt to successful placeme nt: 1 Airway confirmation: bilateral breath s ounds, positive ETCO2 and bilateral chest rise Other previous techniques attempted: di rect laryngoscopy; intubation Number of other approaches attempted: 1 Previous direct laryngoscopy: best view of glottic structures: grade 2B Post procedure details Procedure outcome: successful Airway event: no complications Additional Comments Between a grade 2a and 2b airway with DL (hogan 2). Unable to pass tube in glottic airway. Switched to CMAC with success x1. Kwan Whitley CASINO CASHIER MANAGER, BODY FITTER ANESTHESIA ORDERABLES documented in this encounter Visit Diagnoses Not on filedocumented in this encounter Administered Medications Inactive Administered Medications - up to 3 most recent administrations Medication Order MAR Action Action Date Dose Rate Site ciprofloxacin in D5W IVPB 400 mg Given 08/14/2017 7:01 PM MARKLOGIC DEVELOPER 40 0 mg (for_CIPRO) 400 mg, intravenous, at 200 mL/hr, Administer over 60 Minutes, Once, On Sun08/14/17 at 1745, For 1 dose, Intra-Op, Preoperatively within 2 hours prior to surgical incision. premix bag, Drug Monitoring Program: Pharmacist to adjust medication order based on comorbities and indication., Indications: Prophylaxis, surgical dexamethasone injection (for_DECADRON) Given 08/14/2017 6:49 PM MARKLOGIC DEVELOPER 4 mg As needed, Starting on Sun08/14/17 at 1849, Anesthesia Intra-op fentaNYL injection (for_SUBLIMAZE) Given 08/14/2017 6:54 PM MARKLOGIC DEVELOPER 100 mcg intravenous, As needed, severe pain or score 7-10 of 10, Starting on Sun08/14/17 at 1854, Anesthesia Intra-op HYDROmorphone injection (for_DILAUDID) Given 08/14/2017 7:19 PM MARKLOGIC DEVELOPER 1 mg As needed, moderate pain or score 4-6 of 10, Starting on Sun08/14/17 at 1919, Anesthesia Intra-op lactated ringers New Bag 08/14/2017 9:12 PM MARKLOGIC DEVELOPER intravenous, Continuous Infusion: Per Instructions PRN, Starting on Sun08/14/17 at 1846, Anesthesia Intra-op New Bag 08/14/2017 6:46 PM MARKLOGIC DEVELOPER lidocaine (PF) (cardiac) injection Given 08/14/2017 6:54 PM MARKLOGIC DEVELOPER 10 mg intravenous, As needed, Starting on Sun08/14/17 at 1854, Anesthesia Intra-op metroNIDAZOLE in NaCl (iso-osm) IVPB 500 mg Given 08/14/2017 7:24 PM MARKLOGIC DEVELOPER 500 mg (for_FLAGYL) 500 mg, intravenous, at 200 mL/hr, Administer over 30 Minutes, Once, On Sun08/14/17 at 1745, For 1 dose, Intra-Op, Preoperatively within 1 hour prior to surgical incision., Indications: Prophylaxis, surgical midazolam (PF) injection (for_VERSED) Given 08/14/2017 6:46 PM MARKLOGIC DEVELOPER 2 mg intravenous, As needed, Starting on Sun08/14/17 at 1846, Anesthesia Intra-op ondansetron (PF) injection (for_ZOFRAN) Given 08/14/2017 8:45 PM MARKLOGIC DEVELOPER 4 mg intravenous, As needed, nausea, vomiting, Starting on Sun08/14/17 at 2045, Anesthesia Intra-op propofol injection (for_DIPRIVAN) Given 08/14/2017 6:54 PM MARKLOGIC DEVELOPER 200 mg intravenous, As needed, Starting on Sun08/14/17 at 1854, Anesthesia Intra-op rocuronium injection (for_ZEMURON) Given 08/14/2017 8:04 PM MARKLOGIC DEVELOPER 10 mg intravenous, As needed, Starting on Sun08/14/17 at 1858, Anesthesia Intra-op Given 08/14/2017 6:58 PM MARKLOGIC DEVELOPER 50 mg succinylcholine-0.9% NaCl (PF) injection Given 08/14/2017 6:54 P M MARKLOGIC DEVELOPER 140 mg (for_ANECTINE) intravenous, As needed, Starting on Sun08/14/17 at 1854, Anesthesia Intra-op documented in this encounter
--- OUTSIDE RECORDS SUMMARY | 2022-05-04 10:21 | XMS_ITS | Encounter Summary ---
:1955 Author Organization [facility] Address [address] [place] [address] Care Team Providers Name Role Phone Unavailable Primary Care Provider Unavailable Encounter Details Date Type Department Care Team Description 07/25/2012 - Hospital Encounter [facility]X [facility] SRCayetano Rush, 11/28/2012 PRonaldoC. Social History Tobacco Use Types Packs/Day Years [...] How often do you attend restorationism or mandaen More than 4 time s per year [...] place to sleep or slept in a skilled nursing (including now)? Sex Assigned at Date Recorded [...] drops calcium Take 2 tablets by 0 05/26/2002 022 carbonate-vitamin D3 500 mouth daily. mg(1,250mg) -125 unit per tablet documented as of this encounter Progress Notes Conversion, Historical Provider Ser - 09/25/2012 7:58 AM CST OT Discharge OT Discharge Entered On: 09/25/2012 8:06 AGILE PROJECT MANAGER Performed On: 09/25/2012 7:58 AGILE PROJECT MANAGER by MAYTE EDDY/Yani Goals Review OT Goals Reviewed : Goals reviewed and unchanged OT Discharge Status : Pt was seen for evaluation only on 08-15-12. Pt Dx of facial injury with paralysis. Onset date 06-27-12. Pt instructed on facial exercises and provided with handouts from [place] on facial exercises, sensory desensitization and home program to do. Pt showed good understanding. Did not reschedule further treatment as no further concerns. D/C at this time. AMYTE EDDY/Yani - 09/25/2012 7:58 AGILE PROJECT MANAGER General Info Pain Symptoms : No MAYTE EDDY/Yani - 09/25/2012 7:58 AGILE PROJECT MANAGER OT Charge Charges - OT : Charges Not Appropriate MAYTE EDDY/Yani - 09/25/2012 7:58 AGILE PROJECT MANAGER Source: [facility] POWERCHART Document Id: [id number] Bolivar Cox, P.T. - 08/27/2012 12:00 AM CST [id number] CHIEF COMPLAINT/REASON FOR VISIT Patient comes in today without complaints. She noted that she felt very good yesterday. She feels she has turned the corner as far as some pain that she has been having. She feels she has really no significant issues going from 0 to 90 degrees now. She will have pain beyond this but this is becoming more manageable. PHYSICAL EXAMINATION Today we did work on passive range of motion once again. She is able to bring her shoulder to 155 to160 degrees passively. There is pain at pathological end range, but she realizes that this will slowly resolve. We also checked her overall strength which is doing quite well. She has strength of 4-/5 with shoulder flexion along with a 4/5 for internal/external rotation. This is all going very well for her. IMPRESSION/REPORT/PLAN At this point, we recommend that she continue doing exercises at home. She is to continue with her jairo exercises as well. She will be seeing her physician as well in approximately 1 week. We recommend that she follow up with this appointment and that we would continue if they felt it was necessary to progress further. Otherwise, patient will continue independently at home. William Harper/ines Electronically Signed By: BOLIVAR COX On: 09/02/2012 02:50 PM Source: [facility] MHSDOLBEYNONRADSYS Document Id: [id number] Bolivar Cottrell P.T. - 08/22/2012 12:00 AM CST [id number] IMPRESSION/REPORT/PLAN Colleen comes in today without a lot of issues. She does feel that it is more sore from her working with the pulleys at home now. She has been also working with the Thera-Band which has been going well.We did treat today with hot packs times 20 minutes followed by passive range of motion for approximately 25 minutes. This included both flexion which is more stiff and with less mobility today. She is to approximately 110 to 115 degrees. Shoulder abduction is to approximately 90 degrees. External rotation is more limited today as well, this being approximately 15 degrees. We were aggressive with passive range of motion today. She tolerated well overall. We did recommend that she try and go a little bit easier with the jairo exercises if this is causing her increased discomfort. Plan will be to seepatient in 1 weeks period of time. William Harper/hasmukh Electronically Signed By: BOLIVAR COX On: 08/27/2012 11:15 AM Source: [facility] MHSDOLBEYNONRADSYS Document Id: [id number] E PROJECT MANAGER Bolivar Cox P.T. - 08/19/2012 12:00 AM CST [id number] IMPRESSION/REPORT/PLAN Colleen comes in today without significant complaints. She continues to use her shoulder within her limits. We continue today with more aggressive passive range of motion to the shoulder. We are able toobtain shoulder flexion to 150 degrees today. Abduction is to 115 degrees. External rotation is now more manageable passively. We are able to obtain approximately 15-20 degrees of external rotation. From this point, we instructed patient with jairo exercises for at home addressing four quadrants here. We also instructed with internal rotation exercises using a towel at home. We also instructed patient with Thera-Band exercises for both flexion/extension and internal/external rotation. This is with orange Thera-Band. She tolerated this well and she is able to manage this independently. Total time today was 15 minutes of manual and 15 minutes of Therex. ASSESSMENT: The patient continues to progress. Her mobility is doing well and her pain is very well managed. PLAN: To continue to progress. We will see patient in approximately one week. William Harper/carlene Electronically Signed By: BOLIVAR COX On: 08/27/2012 11:17 AM Source: [facility] Document Id: [id number] Bolivar Cottrell P.Varun. - 08/09/2012 12:00 AM CST [id number] IMPRESSION/REPORT/PLAN Colleen comes in after having seen the paint specialist yesterday. It is noted that we can now become more aggressive with the range of motion and also some light strengthening. Therefore, we did work on mobility with hot packs prior to this. She is able to tolerate more aggressive therapy, but ispainful at pathological end range with shoulder flexion at approximately 100 degrees, abduction is to approximately 90 degrees. We held on strengthening today just to see how she would tolerate the more aggressive range of motion at this time. We did advise that she could use her arm presently for reaching out and grabbing light objects such as cups of coffee. However, we do not want any excessive vitaly ght on the arm at this point. ASSESSMENT: The patient tolerated well. PLAN: To continue in one weeks period of time. William Harper/carlene Electronically Signed By: BOLIVAR COX On: 08/27/2012 11:18 AM Source: [facility] MHSDOLBEYNONRADSYS Document Id: [id number] Bolivar Cottrell P.T. - 08/05/2012 12:00 AM CST [id number] IMPRESSION/REPORT/PLAN Colleen comes in today without significant complaints. She is no longer live wearing the arm sling tosupport her arm. She does not have any pain in so doing this. She is sleeping in her own bed now which does not seem to be an issue as well. We did continue today with passive range of motion of the shoulder. Able to obtain shoulder flexion to 103 degrees. Abduction is to still approximately 90-95 degrees. There is pain at pathological end range. Total time today was 15 minutes of manual. ASSESSMENT: The patient is able to tolerate motion with less pain at this time but still pain at pathological end range. PLAN: The patient will see Dr. Gonzales/Cayetano Raphael P.A.-C tomorrow. Will continue work on passive range of motion. She will have an x-ray tomorrow and we may be able to be more aggressive with the exercises based upon what the radiographs show. William Harper/carlene Electronically Signed By: BOLIVAR COX On: 08/10/2012 11:24 AM Source: [facility] [employer]isphere RadiologyCALSupramedGisela Document Id: [id number] E PROJECT MANAGER Bolivar Cox P.T. - 08/01/2012 12:00 AM CST [id number] IMPRESSION/REPORT/PLAN Colleen comes in today stating that that she is doing fairly well overall. She really does not wear her arm sling as much at home anymore stating that it is feels comfortable when it just hands. She does wear out in public where she could be bumped or where something could happen, not in this effect. We did continue to treat today with passive range of motion. We are able to obtain shoulder flexion toapproximately 98 degrees. Shoulder abduction was to approximately 85 - 90 degrees. External rotationis quite uncomfortable at this time. Total time today was 15 minutes of manual technique. ASSESSMENT Patient tolerated well overall. She can tolerate more passive range of motion today than she has in the past. There is not as much pain that at these end ranges. Plan will be to continue. William Harper/selin Electronically Signed By: BOLIVAR COX On: 08/10/2012 11:27 AM Source: [facility] [employer]isphere RadiologyCALHomeShop18 Document Id: [id number] E PROJECT MANAGER Bolivar Cox P.T. - 07/29/2012 12:00 AM CST [id number] IMPRESSION/REPORT/PLAN Colleen comes in today stating that she is doing fairly well overall. She has taken her immobilizer off throughout the day just to let the shoulder hang. This does not cause any issues. She is not sleeping with it at this time. She notes that she does not have any pain in doing this. Today we did work on some passive range of motion of the shoulder again. Shoulder flexion is to approximately 90 degrees with abduction to approximately 70 degrees. We are unable to work on external rotation at this timewhich is quite uncomfortable. Total time for passive range of motion was approximately 15 minutes today. We did instruct patient with some pendulum exercises just to help assist with some light movements at home. She is not to do anything actively at this time as of yet. It is noted she is approximately five weeks post fracture. ASSESSMENT Patient is doing well overall. PLAN Plan will be to continue with progression towards active assistive range of motion hopefully next week. William Harper/selin Electronically Signed By: BOLIVAR COX On: 07/31/2012 07:40 AM Source: [facility] MHSDOLBEYNONRADSYS Document Id: [id number] E PROJECT MANAGER documented in this encounter Consult Notes Conversion, Historical Provider Ser - 08/15/2012 12:00 AM CST [id number] REFERRING PROVIDER: Cayetano Raphael P.A.-C. CHIEF COMPLAINT/REASON FOR VISIT Facial injury with paralysis. Patient has some paralysis on left side of face. Onset date: 06-27-12. HISTORY OF PRESENT ILLNESS Cognition: alert and oriented x 3. No deficits noted. No further testing needed at this time. Perception with no difficulties noted. PAST MEDICAL HISTORY/SURGICAL HISTORY Hyperlipidemia, osteopenia, and psoriasis. Patient indicates no pain at this time. Other diagnoses includes being status post fracture left humeral head. Patient has been seen by physical therapy for the fracture of the humerus. PHYSICAL EXAMINATION MUSCULOSKELETAL: patient has decrease range of motion in left upper extremity primarily in shoulder.Please see physical therapy notes at this time. Grasp was remeasured. Right grasp measured at 28 kg.Left measured at 15 kg. Note the right grasp is within normal limits and left grasp is less than normal or considered weak. In regards to face, patient does have some numbness on the left chin where the stitches are. Practice facial exercises concentrating on following facial movements with an AOE andthen clenched teeth. Also worked on some slight jaw movement. Patient indicated this has improved. Patient was provided with handouts. The first one was exercises for the face, P[place] form [id number]. Also p rovided with one on scar massage and on [place] Desensitization, [id number]. Patient actually tried working with some vibration also to facilitate the muscles around the mouth. Patient was encouraged to doexercises initially with active then assisting with a stretch and then finally in resistive to increase strength of facial muscles especially in the lower left quadrant of the face. Coordination was not tested as well as ADLs. Patient does indicate that initially she had difficulties, however, she is doing much better. She is right hand dominant. [place] no concerns to address that at this time. Her primary concerns were facial concerns. IMPRESSION/REPORT/PLAN Patient was provided with information on facial exercises, sensory, desensitization with home program as well as scar massage for left side of face. Patient showed good comprehension. Patient was seen for evaluation today. Will hold for treatment for 2 weeks and she may come back at that time with continued therapy for physical therapy. PATIENT EDUCATION #1 Patient/parent/caregiver is ready to learn. No apparent learning barriers were identified. Learning preferences included listening. Explained diagnosis and treatment plan. Patient/parent/caregiver expressed understanding of the content. Sd Millard/ines cc: Emilia Ch D.N.PNaomi/F.N.P Electronically Signed By: MAYTE EDDY OTR/L On: 09/03/2012 10:44 AM Source: [facility] MHSDOLBEYNONRADSYS Document Id: [id number] Bolivar Cox P.T. - 07/25/2012 12:00 AM CST [id number] REFERRING PHYSICIAN LANIE Ch. CHIEF COMPLAINT/REASON FOR VISIT This patient comes in being status post fracture of her left humeral head. The date of the fall/injury was 06/28/2012. She had tripped and fallen at that time. She presently states that her pain is very minimal at this time. She rates it as 0/10. It has been as bad as 8/10. At this time, she does not have any difficulty in sleeping. She has not been using the shoulder at all. It is been remaining in the sling. However, she has been using her hand for simpler tasks. CURRENT MEDICATIONS As for medication she is taking some Aspirin along with some vitamins. However, she really does not take anything for pain at this time. IMPRESSION/REPORT/PLAN Upon observation, patient comes into therapy without difficulty. She is not a fall risk whereby she is able to perform a TUG test without difficulty. 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 Presently, in sitting, she is able to take the sling off independently. She is able get up on the treatment table and lie supine without difficulty. From that point we provided passive range of motion for both flexion and abduction. Flexion at this time is to approximately 80 -85 degrees. Abduction is to approximately 60-degrees. External rotation, we did not aggressively address. This holds true for internal rotation as well. We did provide some passive range of motion for elbow flexion/extension as well. This is not painful and her motion here is within normal limits. We did advise her not to use the shoulder at this time. She can use the hand for dexterity issues. She is not to provide use this with any type of significant weight at this time. She should be limited to 3-5 pounds at the most. We provided passive range of motion for approximately 25 minutes. GOALS 1) To increase mobility to 130-140 degrees of shoulder flexion with abduction to 120 degrees. Hopefully we can slowly progress with external rotation over the next several weeks. We are to hold on anytype of strengthening for the next 2-3 weeks. PLAN OF CARE The plan of care will be modalities if necessary followed by passive range of motion progressing to active assistive range of motion and then progressing from that point on after approximately four weeks. PROGNOSIS Prognosis is good. ASSESSMENT Patient is doing well status post fracture of the left humeral head. PLAN Plan will be to see patient two times per week for next 4-6 weeks. William Harper/selin cc: Cayetano Raphael P.A.-C. Electronically Signed By: BOLIVAR COX On: 07/31/2012 07:48 AM Source: [facility] MHSDOLBEYNONRADSYS Document Id: [id number] E PROJECT MANAGER documented in this encounter Miscellaneous Notes Miscellaneous - Chrissy De La Cruz D.N.P., C.N.P. - 08/26/2012 11:30 AM AGILE PROJECT MANAGER General Message Document Contains Addenda Addendum by MADDIE AGOSTO LPN on 26 August 2012 16:24:07 AGILE PROJECT MANAGER Spoke with Colleen cervantes. States, understanding. From: CHRISSY DE LA CRUZ DNP, [employer] To: MADDIE AGOSTO LPN; Sent: 08/26/2012 11:30:50 AGILE PROJECT MANAGER Subject: General Message Please call Colleen and let her know I got her records and went through everything. It looks like herbone density results from us are just a little bit better than when they were last done. Still, advise to have this rechecked in 2- 3 years. Please let her know this, thank you. Chrissy Source: [facility] POWERCHART Document Id: [id number] documented in this encounter Plan of Treatment Not on filedocumented as of this encounter Visit Diagnoses Not on filedocumented in this encounter
--- OUTSIDE RECORDS SUMMARY | 2022-05-04 10:21 | XMS_ITS | Encounter Summary ---
:1955 Author Organization [facility] Address [address] [place] [address] Care Team Providers Name Role Phone Unavailable Primary Care Provider Unavailable Encounter Details Date Type Department Care Team Description 01/28/2013 Hospital Encounter HX [facility] Yulissa Ruffin APRN, C.N.P. [address] [place], [place] [phone] (Wo rk) Social History Tobacco Use [...] How often do you attend pentecostalism or faith More than 4 time s [...] calcium Take 2 tablets by 0 05/26/2002 02/14/ 022 carbonate-vitamin D3 500 mouth daily. mg(1,250mg) -125 unit per tablet documented as of this encounter Plan of Treatment Not on filedocumented as of this encounter Visit Diagnoses Not on filedocumented in this encounter
--- OUTSIDE RECORDS SUMMARY | 2022-05-04 10:21 | XMS_ITS | Encounter Summary ---
:1955 Author Organization [facility] Address [address] [place] [address] Care Team Providers Name Role Phone Unavailable Primary Care Provider Unavailable Reason for Referral Outpatient (Routine) - Closed Specialty Diagnoses / Procedures Referred By Contact Refer red To Contact Emergency Medicine Diagnoses Colic Biliary Augie Berry M.D. [facility] Region [address] [place] [address] [place] [phone] Referral ID Status Reason Start Date Expiration Date Visits Requ ested Visits Authorized [id number] Closed 08/14/2017 02/10/2018 1 1 DENTIAL COLLECTIONS Reason for Visit Reason Comments Shoulder Pain Auth/Cert Specialty Diagnoses / Procedures Referred By Contact Refer red To Contact Diagnoses Calculus of bile duct without cholangitis or cholecystitis with obstruction Calculus of bile duct without cholangitis or cholecystitis with obstruction Procedures NC CHOLECYSTECTOMY W CHOLANGIOGR Gallbladder removal Referral ID Status Reason Start Date Expiration Date Visits Requ ested Visits Authorized [id number] 1 1 Encounter Details Date Type Department Care Team Description 08/13/2017 - Emergency [facility] Augie Berry, Colic Biliary (Primary 08/14/2017 Department M.Kristina Dx) [address] [place] [id number] Social History Tobacco Use Types Packs/Day [...] How often do you attend scientologist or denominational More than 4 time s [...] Sign Reading Time Taken Comments Blood Pressure 136/66 08/14/2017 1:45 AM RESIDENTIAL COLLECTIONS Pulse 91 08/14/2017 2:00 AM RESIDENTIAL COLLECTIONS Temperature 36.5 ??C (97.7 ??F) 08/13/2017 11:44 PM RESIDENTIAL COLLECTIONS Respiratory Rate 16 08/14/2017 1:00 AM RESIDENTIAL COLLECTIONS Oxygen Saturation 98% 08/14/2017 2:00 AM RESIDENTIAL COLLECTIONS Inhaled Oxygen Concentration - - Weight 97.8 kg (215 lb 9.8 oz) 08/13/2017 11:43 PM RESIDENTIAL COLLECTIONS Height 157.5 cm (5' 2) 08/13/2017 11:43 PM RESIDENTIAL COLLECTIONS Body Mass Index 39.44 08/13/2017 11:43 PM RESIDENTIAL COLLECTIONS documented in this encounter Discharge Instructions Discharge Augie Dickson M.D. - 08/14/2017 1:59 AM CST [place], low fat diet. Return for gallbladder ultrasound in AM today. DENTIAL COLLECTIONS AttachmentsThe following attachments cannot be sent through Care Everywhere. Cholelithiasis (Welsh)documented in this encounter Medications at Time of [...] D3) 2,000 mouth daily. Unit capsule omega 5-ssv-eii-fish oil Take 1 capsule by 0 10/1910/03/2021 [...] Date: 08/14/17. documented as of this encounter ED Notes Augie Berry M.D. - 08/14/2017 2:09 AM CST SUBJECTIVE CHIEF COMPLAINT/REASON FOR VISIT Shoulder Pain HISTORY OF PRESENT ILLNESS Back pain. Patient reports onset of back pain across her mid back after eating last night. It resolved after a short while. She ate supper tonight and again thereafter had pain across her mid back. Shefeels some discomfort in the upper abdomen also and in the right upper quadrant. She denies nausea or vomiting. No diarrhea or constipation. No fever or chills. She denies chest pain or shortness of breath. She does not have a cardiac history. She does not smoke. She denies lower extremity edema. No pain in her calves. She has not had any past abdominal surgeries. She denies dysuria or frequency of urination. No history of kidney stones. REVIEW OF SYSTEMS Constitutional: Negative for chills and fever. HENT: Negative for ear pain and sore throat. Eyes: Negative for pain and visual disturbance. Respiratory: Negative for cough and shortness of breath. Cardiovascular: Negative for chest pain, palpitations and leg swelling. Gastrointestinal: Positive for abdominal pain. Negative for diarrhea, nausea and vomiting. Genitourinary: Negative for dysuria, flank pain and hematuria. Musculoskeletal: Positive for back pain. Negative for extremity pain. Skin: Negative for color change and rash. Neurological: Negative for weakness and headaches. Psychiatric/Behavioral: Negative for depression. The patient is not nervous/anxious. OBJECTIVE Initial Vitals Temperature Pulse Rate Heart Rate Resp Rate Blood Pressure SpO2 08/13/17 2344 08/13/17 2344 08/14/17 0015 08/13/17 2344 08/13/17 2344 08/13/17 2344 36.5 ??C 81 70 20 (!) 172/80 100 % Pain Score 08/14/17 0008 10 - Worst possible pain PHYSICAL EXAMINATION Constitutional: She appears well-developed and well-nourished. She appears not lethargic. She appears distressed. HENT: Head: Normocephalic and atraumatic. Right Ear: Tympanic membrane normal. Left Ear: Tympanic membrane normal. Nose: Nose normal. Mouth/Throat: Oropharynx is clear and moist. Mucous membranes are moist. Eyes: Conjunctivae and EOM are normal. Pupils are equal, round, and reactive to light. Neck: Normal range of motion. Neck supple. No neck adenopathy. No thyromegaly present. Cardiovascular: Normal rate and regular rhythm. No murmur heard. Pulmonary/Chest: Effort normal and breath sounds normal. There is normal air entry. She has no wheezes. She has no rhonchi. Abdominal: Soft. Bowel sounds are normal. There is tenderness (slight tenderness to palpation in midepigastric area and in to RUQ. ). There is no rebound and no guarding. Musculoskeletal: She exhibits no edema. Normal range of motion of the back. There is no tenderness along the length the spine. There is no tenderness in the thoracic or lumbar paraspinal musculature. Neurological: She is alert and oriented to person, place, and time. No cranial nerve deficit. Skin: Skin is warm, dry and intact. No rash noted. Psychiatric: She has a normal mood and affect. Thought content normal. ASSESSMENT/PLAN Impression and Plan Labs normal except for Ddimer elevated at 1.76. BNP 185. WBC 10,300. UA shows no hematuria or evidence of infection. Chest CT done and no evidence of pulmonary embolism. No aortic aneurysm. Thyroid nodules which pt has a history of, and small lung nodules (discussed with patient). Her vitals have remained stable. She did not get pain relief with toradol, but dilaudid was effective. I suspect this is biliary colic. I placed a future order to obtain an ultrasound of the RUQ for later this AM and pt isaware that she needs to call in to schedule this. Follow up with her primary thereafter. . ED Course Final Diagnoses: as of Aug 14 209 Colic Biliary Augie Berry M.D. 08/14/17218 DENTIAL COLLECTIONS Lora Skinner R.N. - 08/13/2017 11:47 PM CST Pt reports increased pain after eating for past two days. Pt states she has family hx of gallbladderissues and pt denies abd. Surgeries. Angie was helpful yesterday, but pt not finding relief tonight. Lora Skinner R.N. 08/13/17 [id number] DENTIAL COLLECTIONS documented in this encounter Plan of Treatment Scheduled Referrals Name Type Priority Associated Diagnoses Order S chedule Post ED visit Outpatient Referral Routine Colic Biliary Expect ed: 08/14/2017 (Approximate), Expires: 2019 documented as of this encounter Procedures Procedure Name Priority Date/Time Associated Comments Diagnosis CT CHEST ANGIOGRAM RAD - Semiurgent 08/14/2017 1:25 Re sults for WITH IV CONTRAST (Fast; most ED AM RESIDENTIAL COLLECTIONS this proc edure patients; some are in the inpatients) results section. ECG Routine 08/14/2017 12:16 Results for AM RESIDENTIAL COLLECTIONS this procedure are in the results section. HEPATIC FUNCTION STAT 08/14/2017 12:05 Results for PANEL, S AM RESIDENTIAL COLLECTIONS this procedure are in the results section. NT-PRO B-TYPE STAT 08/14/2017 12:05 Results fo r NATRIURETIC PEPTIDE AM RESIDENTIAL COLLECTIONS this pro cedure (BNP), S are in the results section. ACTIVATED PARTIAL STAT 08/14/2017 12:05 Result s for THROMBOPLASTIN TIME AM RESIDENTIAL COLLECTIONS this pro cedure (APTT), P are in the results section. PROTHROMBIN TIME STAT 08/14/2017 12:05 Results for (PT), P AM RESIDENTIAL COLLECTIONS this procedure are in the results section. D-DIMER, P STAT 08/14/2017 12:05 Results for AM RESIDENTIAL COLLECTIONS this procedure are in the results section. TROPONIN T, 5TH GEN, STAT 08/14/2017 12:05 Res ults for P AM RESIDENTIAL COLLECTIONS this procedure are in the results section. LIPASE, S/P STAT 08/14/2017 12:05 Results for AM RESIDENTIAL COLLECTIONS this procedure are in the results section. AMYLASE, TOT, S STAT 08/14/2017 12:05 Results for AM RESIDENTIAL COLLECTIONS this procedure are in the results section. BASIC METABOLIC STAT 08/14/2017 12:05 Results for PANEL, S/P AM RESIDENTIAL COLLECTIONS this procedure are in the results section. CBC WITH STAT 08/14/2017 12:04 Results for DIFFERENTIAL, B AM RESIDENTIAL COLLECTIONS this procedu re are in the results section. IRIS MICROSCOPIC, U STAT 08/14/2017 12:02 Resu lts for AM RESIDENTIAL COLLECTIONS this procedure are in the results section. URINALYSIS WITH STAT 08/14/2017 12:02 Results for MICROSCOPIC IF AM RESIDENTIAL COLLECTIONS this procedur e INDICATED, U are in the results section. documented in this encounter Results CT Chest Angiogram with IV Contrast (08/14/2017 1:25 AM RESIDENT[facility]LECTIONS) Anatomical Region Laterality Modality Chest N/A Computed Tomography Specimen (Source) Anatomical Collection Method Collection Time Re ceived Time Location / / Volume Laterality 08/14/2017 8:03 AM [facility] Impressions 08/14/2017 8:15 AM [facility]LECTIONS IMPRESSION: 1. ??Somewhat limited evaluation due to respiratory motion. 2. ??No evidence of acute pulmonary embo lism. 3. ??Multiple indeterminate pulmonary no dules as detailed above including a dominant nodule on the left measuring 10 mm indeterminate irregularly marginated nodule in the right middle lobe measurin g 7 mm. Please see the imaging follow-up recommendations above. 4. ??No adenopathy or pathologic bone le sions. 5. ??Mild cardiomegaly with mild groundg lass opacities noted in the LUNG BASES, possibly subsegmental atelectasis, scarr ing, though component of interstitial edema is not excluded. 6. ??Heterogeneous and multinodular enla rgement of the thyroid gland, greater on the right, similar in appearance to the thyroid ultrasound performed in 2010. Narrative 08/14/2017 8:15 AM RESIDENTIAL COLLECTIONS EXAM: CT CHEST ANGIOGRAM WITH IV CONTRAST 3D/MIPS: 3D Post-Processing performed on a dependent workstation. COMPARISON: None. Correlation made with the thyroid ultrasound performed on 01/13/2011 and chest radiograph of 2011.. FINDINGS: CHEST: Respiratory motion theron fact obscures detail. No evidence of acute pulmonary embolism. Normal caliber thoracic aorta. No pleural or pericardial effusions. 10 mm solid-appea ring indeterminate nodular focus posterior left costophrenic angle (serie s 5 image 191). 6 mm indeterminate nodule left lateral costophrenic angle ( series 5 image 166). Indeterminate 5 mm pulmonary nodule left lower lobe posteri christopher (series 5 image 120). 8 mm indeterminate pulmonary nodule lateral l eft upper lobe (series 5 image 107). Less well-defined 4 mL nodular focus inv olving the posterior superior left upper lobe abutting the major fissure (series 5 image 54). 4 mild pulmonary nodule left upper lobe (series 5 image 98). 5 m m nodular foci abutting the major fissure on the left involving the lower lobe (series 5 images 113 and 118). Though obscured by respiratory motion ar tifact, suspect approximately 7 mm irregularly marginated nodular focus in the right middle lobe (series 5 image 42). Mild groundglass opacities in the l guy bases, likely due to subsegmental atelectasis and/or scarring, though comp onent of underlying interstitial edema is not excluded. No evidence of focal al veolar consolidation. Central airways are patent. Mild cardiomegaly is noted. Minimal scattered calcific atheromatous changes. Tiny esophageal hiatal hernia. Heterogeneous and nodular enlargement of the thyroid gland, more pronounced on th e right. UPPER ABDOMEN: Visualized portions of th e adrenal glands are unremarkable in appearance. Visualized abdominal aorta i s normal in caliber. 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 No pathologic bone lesions noted. GUIDELINES FOR FOLLOW-UP of newly detect ed solid nodules incidentally detected on CT in persons 35 years or older. (201 7 revision) LOW-RISK PATIENT (Minimal or absent hist ory or smoking or of other known risk factors) For multiple nodules, size of largest no dule: 6mm or>- CT at 3-6 months, then consider CT at 18-24 months HIGH-RISK PATIENT (History of smoking or of other known risk factors) For multiple nodules, size of largest no dule: 6mm or>- CT at 3-6 months, then consider CT at 18-24 months vRad: ??Findings concordant with [facility] report. Procedure Note Hao Barillas M.D. - 08/14/2017Formatt ing of this note might be different from the original. EXAM: CT CHEST ANGIOGRAM WITH IV CONTRAS T 3D/MIPS: 3D Post-Processing performed on a dependent workstation. COMPARISON: None. Correlation made with the thyroid ultrasound performed on 01/13/2011 and chest radiograph of 2011.. FINDINGS: CHEST: Respiratory motion theron fact obscures detail. No evidence of acute pulmonary embolism. Normal caliber thoracic aorta. No pleural or pericardial effusions. 10 mm solid-appea ring indeterminate nodular focus posterior left costophrenic angle (serie s 5 image 191). 6 mm indeterminate nodule left lateral costophrenic angle ( series 5 image 166). Indeterminate 5 mm pulmonary nodule left lower lobe posteri christopher (series 5 image 120). 8 mm indeterminate pulmonary nodule lateral l eft upper lobe (series 5 image 107). Less well-defined 4 mL nodular focus inv olving the posterior superior left upper lobe abutting the major fissure (series 5 image 54). 4 mild pulmonary nodule left upper lobe (series 5 image 98). 5 m m nodular foci abutting the major fissure on the left involving the lower lobe (series 5 images 113 and 118). Though obscured by respiratory motion ar tifact, suspect approximately 7 mm irregularly marginated nodular focus in the right middle lobe (series 5 image 42). Mild groundglass opacities in the l guy bases, likely due to subsegmental atelectasis and/or scarring, though comp onent of underlying interstitial edema is not excluded. No evidence of focal al veolar consolidation. Central airways are patent. Mild cardiomegaly is noted. Minimal scattered calcific atheromatous changes. Tiny esophageal hiatal hernia. Heterogeneous and nodular enlargement of the thyroid gland, more pronounced on th e right. UPPER ABDOMEN: Visualized portions of th e adrenal glands are unremarkable in appearance. Visualized abdominal aorta i s normal in caliber. 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 No pathologic bone lesions noted. GUIDELINES FOR FOLLOW-UP of newly detect ed solid nodules incidentally detected on CT in persons 35 years or older. (201 7 revision) LOW-RISK PATIENT (Minimal or absent hist ory or smoking or of other known risk factors) For multiple nodules, size of largest no dule: 6mm or>- CT at 3-6 months, then consider CT at 18-24 months HIGH-RISK PATIENT (History of smoking or of other known risk factors) For multiple nodules, size of largest no dule: 6mm or>- CT at 3-6 months, then consider CT at 18-24 months vRad: Findings concordant with prelimina ry vRad report. IMPRESSION: 1. Somewhat limited evaluation due to re spiratory motion. 2. No evidence of acute pulmonary emboli sm. 3. Multiple indeterminate pulmonary nodu les as detailed above including a dominant nodule on the left measuring 10 mm indeterminate irregularly marginated nodule in the right middle lobe measurin g 7 mm. Please see the imaging follow-up recommendations above. 4. No adenopathy or pathologic bone lesi ons. 5. Mild cardiomegaly with mild groundgla ss opacities noted in the LUNG BASES, possibly subsegmental atelectasis, scarr ing, though component of interstitial edema is not excluded. 6. Heterogeneous and multinodular enlarg ement of the thyroid gland, greater on the right, similar in appearance to the thyroid ultrasound performed in 2010. Augie Berry M.D. IMG CT PROCEDURES ECG 12 Lead (08/14/2017 12:16 AM RESIDENTIAL COLLECTIONS) Patholo gist Method Time Signature Ventricular 65 BPM MUSE Rate ECG/Min NC Interval 150 ms MUSE QRSD Interval 70 ms MUSE QT Interval 394 ms MUSE QTC Interval 409 ms MUSE P [place] 55 degrees MUSE R [place] 74 degrees MUSE T Wave [place] 60 degrees MUSE Clinical Normal sinus rhythm MUSE Diagnosis Left atrial enlargement Otherwise normal ECG No previous ECGs available Specimen Anatomical Collection Method Collection Time Receive d Time (Source) Location / / Volume Laterality 08/14/2017 12:16 08/14/2017 5:14 AM RESIDENTIAL COLLECTIONS AM RESIDENTIAL COLLECTIONS Narrative This result has an attachment that is no t available. Augie Berry M.D. ECG ORDERABLES Performing Organization Address City/State/ZIP Code Phon e Number MUSE MUSE NA APTT (Activated Partial Thromboplastin Time) (08/14/2017 12:05 AM RESIDENTIAL COLLECTIONS) P athologist Signature APTT, P 33.7 23.7 - 36.1 08/14/2017 [facility] sec 12:34 AM [facility] Specimen Anatomical Collection Method Collection Time Receive d Time (Source) Location / / Volume Laterality Blood (Blood, 08/14/2017 12:05 08/14/2017 Venous) AM [facility]IDENTIAL COLLECTIONS 12:15 AM [facility]IAL [facility]LECTIONS Augie Berry M.D. LAB BLOOD ADD-ON Performing Organization Address City/State/ZIP Code Phon e Number [facility] [place] [address] [facility] PT (Prothrombin Time) with INR (08/14/2017 12:05 AM RESIDENTIAL COLLECTIONS) athologist Signature Prothrombin 9.4 8.8 - 11.9 08/14/2017 [facility] Time, P sec 12:33 AM [facility] INR 0.9 0.9 - 1.2 08/14/2017 [facility] 12:33 AM [facility] Comment: Standard intensity warfarin therapeutic range: 2.0 to 3.0 High intensity warfarin therapeutic rang e: 2.5 to 3.5 Specimen Anatomical Collection Method Collection Time Receive d Time (Source) Location / / Volume Laterality Blood (Blood, 08/14/2017 12:05 08/14/2017 Venous) AM [facility]LECTIONS 12:15 AM RESIDENTIAL COLLECTIONS Augie Berry M.D. LAB BLOOD ADD-ON Performing Organization Address City/State/ZIP Code Phon e Number [facility] [place] [address] [facility] (ABNORMAL) NT-Pro B-Type Natriuretic Peptide (BNP) (08/14/2017 12:05 AM RESIDENTIAL COLLECTIONS) athologist Signature NT-Pro BNP 185 (H) <=183 pg/mL 08/14/2017 [facility] 12:46 AM [facility] Comment: NT-proBNP values less than 300 pg/mL hav e a 99% negative predictive value for excluding acute congestive heart abundio lure. A cutoff of 1200 pg/mL for patients with an eGFR<60 yields a diagno stic sensitivity and specificity of 89% and 72% for acute congestive heart f ailure. ??A diagnostic NT-proBNP cutoff of 900 pg/mL has been suggested i n adults 50-75 years of age in the absence of renal failure. Biotin has been identified by the megan pat as a potential interfering substance. ??Higher concentr ations of biotin may be found in multivitamins, hair/nail supple ments, and workout supplements. ??If the result does not [facility] clinical observations, repeat testing after patient refrains fr om the use of supplements for at least 12 hours. Specimen Anatomical Collection Method Collection Time Receive d Time (Source) Location / / Volume Laterality Blood (Blood, 08/14/2017 12:05 08/14/2017 Venous) AM [facility]IDENTIAL COLLECTIONS 12:15 AM RESIDENTIAL COLLECTIONS Augie Berry M.D. LAB BLOOD ADD-ON Performing Organization Address City/State/ZIP Code Phon e Number [facility] [place] [address] [facility] (ABNORMAL) D-Dimer (08/14/2017 12:05 AM RESIDENTIAL COLLECTIONS) P athologist Signature D-Dimer, P 1.76 (H) <0.50 08/14/2017 [facility] mcg/mL FEU 12:[address] [facility] Comment: ----ADDITIONAL INFORMATION---- Results of this test should always be in terpreted in conjunction with the patients medical hi story, clinical presentation and other findings. ??DVT a nd PE clinical diagnosis should not be based on the D-d tanner result alone. A clinical cut-off value of 0.50 mcg/mL( FEU) for PE and DVT has demonstrated a 95% confidence interv al as an aid in diagnosis. ??D-dimer should not be used as an aid in the diagnosis of VTE in patients on therapeu tic anticoagulation, following recent surgery or trauma, with disseminated malignancies, aortic aneurysm, severe in fections or sepsis, liver cirrhosis, ,or ??fibrinol ytic activity. ?? D-dimer values may increase in older jordon lts. Specimen Anatomical Collection Method Collection Time Receive d Time (Source) Location / / Volume Laterality Blood (Blood, 08/14/2017 12:05 08/14/2017 Venous) AM RESIDENTIAL COLLECTIONS 12:15 AM RESIDENTIAL COLLECTIONS Augie Berry M.D. LAB BLOOD ADD-ON Performing Organization Address City/State/ZIP Code Phon e Number [facility] Jennifer [facility]og[facility] [place] [address] [facility] Troponin T (08/14/2017 12:05 AM RESIDENTIAL COLLECTIONS) P athologist Signature Troponin T, S <0.01 <0.01 ng/mL 08/14/2017 [facility] 12:[address] [facility] Comment: Biotin has been identified by the manufa cturer as a potential interfering substance. ??Higher concentr ations of biotin may be found in multivitamins, hair/nail supple ments, and workout supplements. ??If the result does not [facility] clinical observations, repeat testing after patient refrains fr om the use of supplements for at least 12 hours. Specimen Anatomical Collection Method Collection Time Receive d Time (Source) Location / / Volume Laterality Blood (Blood, 08/14/2017 12:05 08/14/2017 Venous) AM [facility]IDENT[facility] COLLECTIONS 12:15 AM RESIDENTIAL COLLECTIONS Augie Berry M.D. LAB BLOOD ADD-ON Performing Organization Address City/[facility]/ZIP Code Phon e Number [facility] [address] [place] [address] [facility] Hepatic Function Panel (08/14/2017 12:05 AM RESIDENTIAL COLLECTIONS) [facility] Method Time Signature Bilirubin, Total, S 0.4 <=1.2 08/14/2017 [facility] mg/dL 12:43 AM [facility] Bilirubin, Direct, S <0.2 0.0 - 0.3 08/14/2017 [facility] mg/dL 12:46 AM [facility] Aspartate 27 8 - 43 08/14/2017 [facility] Aminotransferase U/L 12:43 AM [facility] [employer] (AST), [facility] Alanine 34 7 - 45 08/14/2017 [facility] Aminotransferase U/L 12:43 AM [facility] [employer] (ALT), [facility] Alkaline 110 50 - 130 08/14/2017 [facility] Phosphatase, S U/L 12:43 AM [facility] Albumin, S 4.4 3.5 - 5.0 08/14/2017 [facility] g/dL 12:43 AM [facility] Protein, Total, S 7.6 6.3 - 7.9 08/14/2017 [facility] g/dL 12:43 AM [facility] Specimen Anatomical Collection Method Collection Time Receive d Time (Source) Location / / Volume Laterality Blood (Blood, 08/14/2017 12:05 08/14/2017 Venous) AM RESIDENTIAL COLLECTIONS 12:13 AM RESIDENTIAL COLLECTIONS Augie Berry M.D. LAB BLOOD ADD-ON Performing Organization Address City/State/ZIP Code Phon e Number [facility] [address] [place] [address] [facility] (ABNORMAL) BMP (Basic Metabolic Panel) (08/14/2017 12:05 AM [facility]) P athologist Signature Potassium, P 3.6 3.6 - 5.2 08/14/2017 [facility] mmol/L 12:43 AM [facility] [facility] Sodium, P 136 135 - 145 08/14/2017 [facility] mmol/L 12:43 AM [facility] Chloride, P 97 (L) 98 - 107 08/14/2017 [facility] mmol/L 12:43 AM [facility] Bicarbonate, P 25 22 - 29 08/14/2017 [facility] mmol/L 12:43 AM [facility] Anion Gap, P 14 7 - 15 08/14/2017 [facility] 12:43 AM [facility] BUN (Blood Urea 14 6 - 21 08/14/2017 [facility] Nitrogen), P mg/dL 12:43 AM [facility] Creatinine 0.64 0.59 - 08/14/2017 [facility] 1.04 mg/dL 12:43 AM [facility] eGFR-Black/Afri >90 >=60 08/14/2017 [facility] can Icelandic mL/min/BSA 12:43 AM [facility] Comment: ----ADDITIONAL INFORMATION---- Estimated GFR calculated using the 2009 CKD_EPI creatinine equation. eGFR Non-Black/ >90 >=60 mL/min/BSA 08/14/2017 12:43 AM [facility] Icelandic [facility] Comment: ----ADDITIONAL INFORMATION---- Estimated GFR calculated using the 2009 CKD_EPI creatinine equation. Calcium, Total, P 8.7 (L) 8.9 - 10.1 mg/dL 08/14/2017 1 2:43 AM [facility] Glucose, P 127 70 - 140 mg/dL 08/14/2017 12:43 AM [facility] Specimen Anatomical Collection Method Collection Time Receive d Time (Source) Location / / Volume Laterality Blood (Blood, 08/14/2017 12:05 08/14/2017 Venous) AM [facility] 12:13 AM [facility] Augie Berry M.D. LAB BLOOD ADD-ON Performing Organization Address City/State/ZIP Code Phon e Number [facility] [place] [address] [facility] Lipase (08/14/2017 12:05 AM [facility]) P athologist Signature Lipase, P 48 13 - 60 U/L 08/14/2017 [facility] 12:43 AM [facility] Specimen Anatomical Collection Method Collection Time Receive d Time (Source) Location / / Volume Laterality Blood (Blood, 08/14/2017 12:05 08/14/2017 Venous) AM [facility] 12:13 AM [facility] Augie Berry M.D. LAB BLOOD ADD-ON Performing Organization Address City/State/ZIP Code Phon e Number [facility] [place] [address] [facility] Amylase, Total (08/14/2017 12:05 AM [facility]) P athologist Signature Amylase, Total, 72 26 - 102 08/14/2017 [facility] P U/L 12:43 AM [facility] [employer] [facility] Specimen Anatomical Collection Method Collection Time Receive d Time (Source) Location / / Volume Laterality Blood (Blood, 08/14/2017 12:05 08/14/2017 Venous) AM [facility] 12:13 AM [facility] Augie Berry M.D. LAB BLOOD ADD-ON Performing Organization Address City/State/ZIP Code Phon e Number [facility] [place] [address] [facility] (ABNORMAL) CBC with Differential (08/14/2017 12:04 AM [facility]) [facility] gist Method Time Signature Hemoglobin 13.3 11.6 - 08/14/2017 [facility] 15.0 g/dL 12:20 AM [facility] [employer] [facility] [employer] [facility] Hematocrit 39.1 35.5 - 08/14/2017 [facility] 44.9 % 12:20 AM [facility] [employer] [facility] [employer] [facility] Erythrocytes 4.43 3.92 - 08/14/2017 [facility] 5.13 12:20 AM [facility] HE[facility] x10(12)/L [facility]- [facility] [employer] [facility] MCV 88.3 78.2 - 08/14/2017 [facility] 97.9 fL 12:[address] [facility] RBC Distrib Width 13.4 12.2 - 08/14/2017 [facility] 16.1 % 12:20 AM [facility] Platelet Count 191 157 - 371 08/14/2017 [facility] x10(9)/L 12:20 AM [facility] Leukocytes 10.3 (H) 3.4 - 9.6 08/14/2017 [facility] x10(9)/L 12:20 AM [facility] Neutrophils 7.65 (H) 1.56 - 08/14/2017 [facility] 6.45 12:20 AM [facility] x10(9)/L [facility] Lymphocytes 1.98 0.95 - 08/14/2017 [facility] 3.07 12:20 AM [facility] x10(9)/L [facility] Monocytes 0.50 0.26 - 08/14/2017 [facility] 0.81 12:20 AM [facility] [employer] x10(9)/L [facility] Eosinophils 0.16 0.03 - 08/14/2017 [facility] 0.48 12:20 AM [facility] x10(9)/L [facility] Basophils 0.03 0.01 - 08/14/2017 [facility] 0.08 12:20 AM [facility] x10(9)/L [facility] Specimen Anatomical Collection Method Collection Time Receive d Time (Source) Location / / Volume Laterality Blood (Blood, 08/14/2017 12:04 08/14/2017 Venous) AM [facility] 12:13 AM [facility] Augie Berry M.D. LAB BLOOD ADD-ON Performing Organization Address City/State/ZIP Code Phon e Number [facility] [address] [facility] [place] [address] [facility] Iris Microscopic, U (08/14/2017 12:02 AM [facility]) P athologist Signature White Blood 4-10 /hpf 08/14/2017 [facility] Cells 12:43 AM [facility] Comment: ----REFERENCE VALUE---- Males: 0-3 Females: 0-10 Unknown: 0-10 Red Blood Cells Occ-2 0 - 2 /hpf 08/14/2017 12:43 AM [facility] Squamous Epithelial Occ-3 /hpf 08/14/2017 12:43 AM [facility] Specimen Anatomical Collection Method Collection Time Receive d Time (Source) Location / / Volume Laterality Urine 08/14/2017 12:02 08/14/2017 AM [facility] 12:12 AM [facility] Augie Berry M.D. LAB URINE ORDERABLES Performing Organization Address City/State/ZIP Code Phon e Number [facility] [address] [place] [address] [facility] (ABNORMAL) Urinalysis with Microscopic if Indicated Urine, Clean Catch (08/14/2017 12:02 AM [facility]) P athologist Signature Source Midstream 08/14/2017 [facility] 12:43 AM [facility] Clarity Clear Clear 08/14/2017 [facility] 12:43 AM [facility] Color Yellow 08/14/2017 [facility] 12:43 AM [facility] Comment: ----REFERENCE VALUE---- Colorless Yellow Odalys Blood Negative Negative 08/14/2017 12:43 AM [facility] Nitrite Negative Negative 08/14/2017 12:43 AM [facility] Leukocyte Esterase Small (A) Negative 08/14/2017 12:43 AM [facility] Protein, U Negative mg/dL 08/14/2017 12:43 AM [facility] Comment: ----REFERENCE VALUE---- Negative Trace Glucose Negative Negative mg/dL 08/14/2017 12:43 AM [facility] Ketone Negative Negative mg/dL 08/14/2017 12:43 AM [facility] Bilirubin Negative Negative 08/14/2017 12:43 AM [facility] pH 7.0 5.0 - 8.0 08/14/2017 12:43 AM [facility] Specific [place] 1.014 1.001 - 1.035 08/14/2017 12:43 AM [facility] Urobilinogen 0.2 0.2 - 1.0 08/14/2017 12:43 AM [facility] Specimen Anatomical Collection Method Collection Time Receive d Time (Source) Location / / Volume Laterality Urine (Urine, 08/14/2017 12:02 08/14/2017 Clean Catch) AM [facility] 12:12 AM [facility] Augie Berry M.D. LAB URINE ORDERABLES Performing Organization Address City/State/ZIP Code Phon e Number [facility] [address] [place] [address] [facility] documented in this encounter Visit Diagnoses Diagnosis Colic Biliary - Primary documented in this encounter Administered Medications Inactive Administered Medications - up to 3 most recent administrations Medication Order MAR Action Action Date Dose Rate Site HYDROmorphone injection 0.5 mg Given 08/14/2017 12:32 AM [facility] 0.5 mg (for_DILAUDID) 0.5 mg, intravenous, Once, On Sun08/14/17 at 0032, For 1 dose HYDROmorphone injection 0.5 mg (for_DILA UDID) Given 08/14/2017 1:57 AM [facility] 0.5 mg 0.5 mg, intravenous, Once, On Sun08/14/17 at 0156, For 1 dose iohexol 350 mg iodine/mL solution 125 mL Given 08/14/2017 1:03 A M [facility] 125 mL (for_OMNIPAQUE) 125 mL, intravenous, Once in imaging, contrast, Starting on Sun08/14/17 at 0058, For 1 dose ketorolac injection 30 mg (for_TORADOL) Given 08/14/2017 12:14 AM [facility] 30 mg 30 mg, intravenous, Once, On Sun08/14/17 at 0012, For 1 dose, Adult IV push rate: Over 15 seconds. Peds IV push rate: Over 1 minute. 60 mg dose only for IM, not recommended for IV., Drug Monitoring Program: Pharmacist to adjust medication order based on comorbities and indication. sodium chloride 0.9 % injection 10 mL Given 08/14/2017 1:41 AM [facility] 10 mL 10 mL, intravenous, As needed, line care, Starting on Sun08/14/17 at 0058 sodium chloride 0.9 % injection 50 mL Given 08/14/2017 1:00 AM [facility] 50 mL 50 mL, intravenous, Once, On Sun08/14/17 at 0100, For 1 dose documented in this encounter Active and Recently Administered Medications Times are shown in RESIDENTIAL COLLECTIONS. Scheduled Medication Order 08/12/2017 08/13/2017 08/14/2017 HYDROmorphone injection 0.5 mg (for_DILAUDID) (COMPLETED) 0032 (Given - Provider: Lora Skinner R.N.)0033 (Override Pull - Provider: Lora Skinner R.N.)0157 (Due) 0.5 mg, intravenous, Once, On Sun08/14/17 at 0032, For 1 dose HYDROmorphone injection 0.5 mg (for_DILAUDID) (COMPLETED) 0157 (Given - Provider: Lora Skinner R.N.) 0.5 mg, intravenous, Once, On Sun08/14/17 at 0156, For 1 dose ketorolac injection 30 mg (for_TORADOL) (COMPLETED) 0014 (Given - Provider: Lora Skinner R.N.)0015 (Override Pull - Provider: Lora Skinner R.N. - Comment: Override pull) 30 mg, intravenous, Once, On Sun 7 at 0012, For 1 dose, Adult IV push rate: Over 15 seconds. Peds IV push rate: Over 1 minute. 60 mg dose only for IM, not recommended for IV., Drug Monitoring Pro gram: Pharmacist to adjust medication or maddison based on comorbities and indication. sodium chloride 0.9 % injection 50 mL (COMPLETED) 0100 (Given - Provider: [place](R)(CT), R.T.(R)) 50 mL, intravenous, Once, On Sun08/14/17 at 0100, For 1 dose PRN Medication Order 08/12/2017 08/13/2017 08/14/2017 iohexol 350 mg iodine/mL solution 125 mL (for_OMNIPAQUE) (COMPLE KARUNA) 0103 (Given - Provider: [place](R)(CT), R.T.(R)) 125 mL, intravenous, Once in imaging, co ntrast, Starting on 12/26/17 at 0058, For 1 dose sodium chloride 0.9 % injection 10 mL 0141 (Given - Provider: [place](R)(CT), North(R)) 10 mL, intravenous, As needed, line care, Starting on Sun at 0058 documented in this encounter
--- OUTSIDE RECORDS SUMMARY | 2022-05-04 10:21 | XMS_ITS | Encounter Summary ---
:1955 Author Organization [facility] Address [address] [place] [address] Care Team Providers Name Role Phone Unavailable Primary Care Provider Unavailable Encounter Details Date Type Department Care Team Description 10/08/[address] [facility] Shereen Kaplan C.N.P. [address] [place] [address] (Wo rk) Social History Tobacco Use Types [...] or relatives? How often do you attend latter day or sikh More than 4 time s per year 09/17/2021 services? 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 mg(1,250mg) -125 unit per tablet omega 1-fnx-wqm-fish oil Take 1 capsule by 0 10/1910/03/2021 600 mg-216 mg- 324 mouth daily. mg-1,200 mg capsule,delayed release(DR/EC) documented as of this encounter Miscellaneous Notes Miscellaneous - River Brasher, RNaomiNNaomi - 11/25/2015 10:01 AM CDT Triage Call - Opthamology From: RIVER BRASHER RN Sent: 11/25/2015 10:01:26 CDT Subject: Triage Call - Opthamology [facility] Triage Call Reason for phone call: Patient reports flashes of light and floaters in left eye Caller Information: Who initiated call? (x)Patient/caller (_) [facility] Staff Who was the communication with? (x)Patient (_) Spouse (_) Parent (_) Child (_)Legal Health Educator (_) Outside Healthcare Provider (group home, pharmacy, Etc.) (_)Other_ What number is patient/caller calling from? [phone] May we leave information on voice mail or answering machine if needed? (_) No (x) Yes Edge Gluer requested? (x)No (_) Yes Comment: _ Call Summary: How long have you had these symptoms? _hours 2-3 days _weeks _months Have you been seen in clinic for your symptoms? (x) No (_) Yes When and where? _ Treatment plan (injection, PT, pain meds, RICE - rest, ice, compression, elevation)? _ Are symptoms: (_) improving (_) worsening (x) constant (_) intermittent Pain Level (0-10): 0 Any recent illness, injury or surgery? (x)No (_) Yes Comment _ Have you had this problem in the past? (x)No (_) Yes Comment _ Call Note: -Patient called the triage line today reporting that 2-3 days ago she began noticing flashes of light and floaters in her left eye. She stated the flashes of light seem worse in the dark. Patient reports no recent head injury or trauma, no pain, no headaches, and no other vision changes. Patient states there is no color to the floaters. Patient had lasik surgery with Dr. Quintanilla back in 1999, but otherwise no history of eye surgeries. Patient was scheduled for an appointment today with Dr. Quintanilla for evaluation of this. Patient notified of this appointment and voiced understanding. Disposition of call: (select all that apply) (_) Call 911 (_) Report to nearest Emergency Department (_) Recommend patient does not drive himself/herself to Emergency Department (_) Recommend patient/caller schedule an appointment (x) Transferred patient/caller to appointment desk (_) Homecare Instructions (_) Notified provider Comment_ (_) Awaiting provider recommendation (x) Patient verbalizes understanding of call and agrees to plan (_) Patient does not express intent to comply (_) Patient advised to seek medical care if symptoms worsen or continue Reference(s): (select all that apply) (_) Telephone Triage Protocols for NursesPhillip, Fourth Edition, 2012 Dalia Everardo & Chacko, pp _ (_) Telephone Triage for Otorhinolaryngology and Head-Neck Nurses, Pily Burnette and Mike, 2011 Oncology Nursing Society, pp_ (_) Urology Book (x) Ophthalmology Book (_) Other_ (_) Provider consulted Name_ (x) RN judgement Source: 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 However, the narrative phrase printed from the coding software may appear abbreviated, or result in slightly different terminology. Coded By: PAUL CLARKE Date Saved: 10/15/2015 02:05 pm Source: [employer] Document Id: [id number] documented in this encounter Plan of Treatment Not on filedocumented as of this encounter Visit Diagnoses Not on filedocumented in this encounter
--- OUTSIDE RECORDS SUMMARY | 2022-05-04 10:21 | XMS_ITS | Encounter Summary ---
:[address] [facility] Address [address] [place] [address] Care Team Providers Name Role Phone Unavailable Primary Care Provider Unavailable Reason for Referral Outpatient (Routine) - Closed Specialty Diagnoses / Procedures Referred By Contact Refer red To Contact Emergency Medicine Diagnoses Colic Biliary Augie Berry M.D. [address] [address] Referral ID Status Reason Start Date Expiration Date Visits Requ ested Visits Authorized [id number] Closed 08/14/2017 02/10/2018 1 1 utpatient (Routine) - Closed Specialty Diagnoses / Procedures Referred By Contact Refer red To Contact Emergency Medicine Diagnoses Cholecystitis Shivam Samayoa M.D. 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 Auth/Cert Specialty Diagnoses / Procedures Referred By Contact Refer red To Contact Diagnoses Calculus of bile duct without cholangitis or cholecystitis with obstruction Calculus of bile duct without cholangitis or cholecystitis with obstruction Procedures RI CHOLECYSTECTOMY W CHOLANGIOGR Gallbladder removal Referral ID Status Reason Start Date Expiration Date Visits Requ ested Visits Authorized [id number] 1 1 Encounter Details Date Type Department Care Team Description 08/14/2017 Emergency [place] [facility] Shivam Samayoa, Cholec ystitis (Primary Dx); Department M.DNaomi Colic Biliary [address] [facility] 701 [facility] [place] [id number] Social History Tobacco Use Types Packs/Day [...] or relatives? How often do you attend catholic or methodist More than 4 time s per year 09/17/2021 services? Do you belong to any clubs or organizations Yes 09/17/2021 such as catholic groups, unions, fraternal or athletic groups, or [...] Sign Reading Time Taken Comments Blood Pressure 115/66 08/14/2017 1:15 PM MAIL TRUCK DRIVER Pulse 90 08/14/2017 1:15 PM MAIL TRUCK DRIVER Temperature 36.5 ??C (97.7 ??F) 08/14/2017 8:50 AM MAIL TRUCK DRIVER Respiratory Rate 14 08/14/2017 10:11 AM MAIL TRUCK DRIVER Oxygen Saturation 96% 08/14/2017 1:15 PM MAIL TRUCK DRIVER Inhaled Oxygen Concentration - - Weight 97.8 kg (215 lb 9.8 oz) 08/14/2017 8:52 AM MAIL TRUCK DRIVER Height 157.5 cm (5' 2) 08/14/2017 8:52 AM MAIL TRUCK DRIVER Body Mass Index 39.44 08/14/2017 8:52 AM MAIL TRUCK DRIVER documented in this encounter Discharge Instructions AttachmentsThe following attachments cannot be sent through Care Everywhere. Cholecystitis (Bulgarian)documented in this encounter Medications at Time of Discharge Medication Sig Dispensed Refills Start Date End Date acetaminophen (TYLENOL) Take 2 tablets by 0 06/29 500 mg tablet mouth every 6 (six) hours as needed for pain. aspirin [address] tablet Take 1 tablet by 0 2011 mouth daily. Misc Prescription Take 1 each by mouth 0 06/27/20 12 (Allergy Immunotherapy) as needed (allergies). Homeopathic remedy drops ibuprofen Take 3 tablets by 0 06/29/2012 (for_ADVIL,MOTRIN) 200 mg mouth every 6 (six) tablet hours as needed for pain. calcium carbonate-vitamin Take 2 tablets by 0 02/200210/03/2021 D3 500 mg(1,250mg) -125 mouth daily. unit per tablet cholecalciferol Take 2,000 Units by 0 10/18/2021 (for_VITAMIN D3) 2,000 mouth daily. Unit capsule omega 5-piw-ktg-fish oil Take 1 capsule by 0 10/1910/03/2021 [...] documented as of this encounter ED Notes Shivam Samayoa M.D. - 08/14/2017 9:06 AM CST SUBJECTIVE CHIEF COMPLAINT/REASON FOR VISIT Pain (c/o pain across backalong diaphram and tenderness in upper abd. ) HISTORY OF PRESENT ILLNESS 62 year old female with a history of osteopenia, psoriasis, and hyperlipidemia presents to the Emergency Department for evaluation of abdominal and back pain. The patient was seen in the ED earlier this morning complaining of the same symptoms. In the ED, her labs were normal except for D-dimer was elevated at 1.76, BNP 185, and WBC 10,300. Her UA showed no hematuria or evidence of infection and a chest CT showed no evidence of pulmonary embolism or aortic aneurysm. She did not receive any relief from Toradol, but Dilaudid was effective. It was suspected that this was biliary colic which she was advised to call later today to schedule an US of the RUQ and then to follow up with her PCP. She statesthat her pain was resolved until this morning around 0700 ultimately waking her up. She locates her pain to the midepigastric and RUQ region of her abdomen and mid upper back pain. The patient expresses that this has happened a few times in the past, but it always resolved and did not return the way it did today. She states that her pain exacerbates with eating therefore she endorses a decreased appetite, but she has not noticed any other alleviating or exacerbating factors. Of note, she reports that her mother, aunt, and grandmother all had a history of gallbladder issues, but she has never been told that she endorsed any gallbladder issues. History provided by: Patient and medical records REVIEW OF SYSTEMS Constitutional: Positive for appetite change. HENT: Negative. Eyes: Negative. Respiratory: Negative. Cardiovascular: Negative. Gastrointestinal: Positive for abdominal pain (RUQ and midepigastric). Endocrine: Negative. Genitourinary: Negative. Musculoskeletal: Positive for back pain. Skin: Negative. Allergic/Immunologic: Negative. Neurological: Negative. Hematological: Negative. Psychiatric/Behavioral: Negative. All other systems reviewed and are negative. OBJECTIVE Initial Vitals [08/14/17 0850] Temperature Pulse Rate Heart Rate Resp Rate Blood Pressure SpO2 36.5 ??C 92 -- 16 157/78 99 % Pain Score -- PHYSICAL EXAMINATION HENT: Head: Atraumatic. Mouth/Throat: Mucous membranes are moist. Eyes: Conjunctivae and EOM are normal. Neck: Normal range of motion. Neck supple. Pulmonary/Chest: Effort normal. No respiratory distress. She exhibits tenderness (lower sternum). Abdominal: There is tenderness in the right upper quadrant. Musculoskeletal: Normal range of motion. Cervical back: Normal. She exhibits no tenderness. Thoracic back: Normal. She exhibits no tenderness. Lumbar back: Normal. She exhibits no tenderness. Neurological: She is alert. No cranial nerve deficit. She exhibits normal muscle tone. Skin: Skin is warm and dry. Psychiatric: She has a normal mood and affect. Her behavior is normal. Thought content normal. Nursing note and vitals reviewed. ASSESSMENT/PLAN ED Course as of Aug 14 1227 Tue Aug 14, 2017 1053 Discussed ultrasound results and case with Dr. Feldman. He will see the patient later today in clinic. US Gallbladder Final Diagnoses: as of Aug 14 1227 Cholecystitis I personally performed the services described in this documentation, as scribed in my presence, and it is both accurate and complete. Shivam Samayoa M.D. 08/14/17 1229 TRUCK DRIVER documented in this encounter Plan of Treatment Scheduled Referrals Name Type Priority Associated Diagnoses Order S chedule Post ED visit Outpatient Referral Routine Cholecystitis Expect ed: 08/14/2017, Expires: 2019 Post ED visit Outpatient Referral Routine Colic Biliary Once f or 1 Occurrences sta rting 08/14/2017 unti l 08/14/2017 documented as of this encounter Procedures Procedure Name Priority Date/Time Associated Comments Diagnosis US GALLBLADDER AND RAD - Semiurgent 08/14/2017 9:52 Re sults for this OR BILIARY DUCTS (Fast; most ED AM MAIL TRUCK DRIVER procedure are in patients; some the results inpatients) section. HEPATIC FUNCTION STAT 08/14/2017 9:20 Results for this PANEL, S AM MAIL TRUCK DRIVER procedure are i n the results section. CBC WITH STAT 08/14/2017 9:20 Results for this DIFFERENTIAL, B AM MAIL TRUCK DRIVER procedure ar e in the results section. LIPASE, S/P STAT 08/14/2017 9:20 Results for this AM MAIL TRUCK DRIVER procedure are i n the results section. BASIC METABOLIC STAT 08/14/2017 9:20 Results f or this PANEL, S/P AM MAIL TRUCK DRIVER procedure are i n the results section. documented in this encounter Results US Gallbladder (08/14/2017 9:52 AM MAIL TRUCK DRIVER) Anatomical Region Laterality Modality Abdomen N/A Ultrasound Specimen (Source) Anatomical Collection Method Collection Time Re ceived Time Location / / Volume Laterality 08/14/2017 9:58 AM MAIL TRUCK DRIVER Impressions 08/14/2017 10:03 AM MAIL TRUCK DRIVER IMPRESSION: Distended gallbladder with stones and sludge. Sonographic Saunders sign was unable to be accurately assesse d secondary to the patient having received pain medications. Exam is equiv ocal for cholecystitis. Consider surgical consultation as clinically flor[place] cated. Findings discussed on the phone on 08/14 at 10:[address] Samayoa. Narrative 08/14/2017 10:03 AM MAIL TRUCK DRIVER EXAM: US GALLBLADDER COMPARISON: None FINDINGS: Gallbladder is distended and is filled w ith stones and sludge. Sonographic Saunders sign was unable to be accurately assessed secondary to the patient having received pain medications. Gallbladder w all is not thickened. Common duct is not dilated. No para cholecystic fluid. The segmentally visualized aorta is unremarkable. Procedure Note Sami Sargent M.D. - 08/14/2017Formatt ing of this note might be different from the original. EXAM: US GALLBLADDER COMPARISON: None FINDINGS: Gallbladder is distended and is filled w ith stones and sludge. Sonographic Saunders sign was unable to be accurately assessed secondary to the patient having received pain medications. Gallbladder w all is not thickened. Common duct is not dilated. No para cholecystic fluid. The segmentally visualized aorta is unremarkable. IMPRESSION: Distended gallbladder with s tones and sludge. Sonographic Saunders sign was unable to be accurately assesse d secondary to the patient having received pain medications. Exam is equiv ocal for cholecystitis. Consider surgical consultation as clinically flor[place] cated. Findings discussed on the phone on 08/14 at 10:[address] Samayoa. Shivam Samayoa M.D. IMG US PROCEDURES Hepatic Function Panel (08/14/2017 9:20 AM MAIL TRUCK DRIVER) Patholo gist Method Time Signature Bilirubin, Total, S 0.6 <=1.2 08/14/2017 [facility] mg/dL 9:48 AM [facility] Bilirubin, Direct, S <0.2 0.0 - 0.3 08/14/2017 [facility] mg/dL 10:15 AM [facility] Aspartate 26 8 - 43 08/14/2017 [facility] Aminotransferase U/L 9:48 AM [facility] [employer] (AST), [facility] Alanine 32 7 - 45 08/14/2017 [facility] Aminotransferase U/L 9:48 AM [facility] ([facility] Alkaline 106 50 - 130 08/14/2017 [facility] Phosphatase, S U/L 9:48 AM [facility] Albumin, S 4.4 3.5 - 5.0 08/14/2017 [facility] g/dL 9:48 AM [facility] Protein, Total, S 7.2 6.3 - 7.9 08/14/2017 [facility] g/dL 9:48 AM [facility] Specimen Anatomical Collection Method Collection Time Receive d Time (Source) Location / / Volume Laterality Blood (Blood, 08/14/2017 9:20 AM 08/14/20 17 9:25 Venous) MAIL TRUCK DRIVER AM MAIL TRUCK DRIVER Shivam Samayoa M.D. LAB BLOOD ADD-ON Performing Organization Address City/State/ZIP Code Phon e Number [facility] [address] [facility] [place] [address] [facility] Lipase (08/14/2017 9:20 AM MAIL TRUCK DRIVER) P athologist Signature Lipase, P 27 13 - 60 U/L 08/14/2017 [facility] 9:48 AM [facility] Specimen Anatomical Collection Method Collection Time Receive d Time (Source) Location / / Volume Laterality Blood (Blood, 08/14/2017 9:20 AM 08/14/20 17 9:24 Venous) MAIL TRUCK DRIVER AM [facility] Shivam Samayoa M.D. LAB BLOOD ADD-ON Performing Organization Address City/State/ZIP Code Phon e Number [facility] [address] [facility] [place] [address] [facility] (ABNORMAL) BMP (Basic Metabolic Panel) (08/14/2017 9:20 AM [facility]) Analysis Performed At Patho logist Time Signature Potassium, P 3.6 3.6 - 5.2 08/14/2017 [facility] mmol/L 9:48 AM [facility] Sodium, P 137 135 - 145 08/14/2017 [facility] mmol/L 9:48 AM [facility] Chloride, P 99 98 - 107 08/14/2017 [facility] mmol/L 9:48 AM [facility] Bicarbonate, P 25 22 - 29 08/14/2017 [facility] mmol/L 9:48 AM [facility] Anion Gap, P 13 7 - 15 08/14/2017 [facility] 9:48 AM [facility] BUN (Blood Urea 10 6 - 21 08/14/2017 [facility] Nitrogen), P mg/dL 9:48 AM [facility] Creatinine 0.58 (L) 0.59 - 08/14/2017 [facility] 1.04 mg/dL 9:48 AM [facility] eGFR-Black/Afri >90 >=60 08/14/2017 [facility] can Citizen Of [place] mL/min/BSA 9:48 AM [facility] Comment: ----ADDITIONAL INFORMATION---- Estimated GFR calculated using the 2009 CKD_EPI creatinine equation. eGFR Non-Black/ >90 >=60 mL/min/BSA 08/14/2017 9:48 AM [facility] Citizen Of [place] [facility] Comment: ----ADDITIONAL INFORMATION---- Estimated GFR calculated using the 2009 CKD_EPI creatinine equation. Calcium, Total, P 8.7 (L) 8.9 - 10.1 mg/dL 08/14/2017 9 :48 AM [email or web address] Glucose, P 122 70 - 140 mg/dL 08/14/2017 9:48 AM [facility] [place] [facility] Specimen Anatomical Collection Method Collection Time Receive d Time (Source) Location / / Volume Laterality Blood (Blood, 08/14/2017 9:20 AM 08/14/20 17 9:24 Venous) MAIL TRUCK DRIVER AM MAIL TRUCK DRIVER Shivam Samayoa M.D. LAB BLOOD ADD-ON Performing Organization Address City/State/ZIP Code Phon e Number [facility] [address] [place] [address] [facility] (ABNORMAL) CBC with Differential (08/14/2017 9:20 AM [facility]) [facility] Method Time Signature Hemoglobin 13.8 11.6 - 08/14/2017 [facility] 15.0 g/dL 9:27 AM [facility] [employer] [facility] Hematocrit 40.5 35.5 - 08/14/2017 [facility] 44.9 % 9:27 AM [facility] [employer] [facility] Erythrocytes 4.62 3.92 - 08/14/2017 [facility] 5.13 9:27 AM [facility] [employer] x10(12)/L [place] MCV 87.7 78.2 - 08/14/2017 [facility] 97.9 fL 9:27 AM [facility] [employer] [facility] RBC Distrib Width 13.3 12.2 - 08/14/2017 [facility] 16.1 % 9:27 AM [facility] Platelet Count 188 157 - 371 08/14/2017 [facility] x10(9)/L 9:27 AM [facility] [employer] [facility] Leukocytes 12.7 (H) 3.4 - 9.6 08/14/2017 [facility] x10(9)/L 9:27 AM [facility] Neutrophils 10.79 (H) 1.56 - 08/14/2017 [facility] 6.45 9:27 AM [employer] x10(9)/L [facility] [employer] [facility] Lymphocytes 1.18 0.95 - 08/14/2017 [facility] 3.07 9:27 AM [employer] x10(9)/L [facility] [employer] [facility] Monocytes 0.63 0.26 - 08/14/2017 [facility] 0.81 9:27 AM MAIL TRUCK DRIVER HEALTH x10(9)/L [facility] Eosinophils 0.03 0.03 - 08/14/2017 [facility] 0.48 9:27 AM MAIL TRUCK DRIVER HEALTH x10(9)/L [facility] Basophils 0.03 0.01 - 08/14/2017 [facility] 0.08 9:27 AM MAIL TRUCK DRIVER HEALTH x10(9)/L [facility] Specimen Anatomical Collection Method Collection Time Receive d Time (Source) Location / / Volume Laterality Blood (Blood, 08/14/2017 9:20 AM 08/14/20 17 9:25 Venous) MAIL TRUCK DRIVER AM MAIL TRUCK DRIVER Shivam Samayoa M.D. LAB BLOOD ADD-ON Performing Organization Address City/State/ZIP Code Phon e Number [facility] [address] [facility] [place] [address] [facility] documented in this encounter Visit Diagnoses Diagnosis Cholecystitis - Primary Colic Biliary documented in this encounter Administered Medications Inactive Administered Medications - up to 3 most recent administrations Medication Order MAR Action Action Date Dose Rate Site ciprofloxacin in D5W IVPB 400 New Bag 08/14/2017 12:15 PM 400 mg 200 mL/hr mg (for_CIPRO) MAIL TRUCK DRIVER 400 mg, intravenous, at 200 mL/hr, Administer over 60 Minutes, Once, On Sun08/14/17 at 1110, For 1 dose, premix bag, Drug Monitoring Program: Pharmacist to adjust medication order based on comorbities and indication., Indications: Intra-abdominal infection, community acquired HYDROmorphone injection 0.5 mg (for_DILA UDID) Given 08/14/2017 1:24 PM MAIL TRUCK DRIVER 0.5 mg 0.5 mg, intravenous, Every 15 min PRN, severe pain or score 7-10 of 10, Starting on Sun08/14/17 at 0908, For 4 doses Given 08/14/2017 11:26 AM MAIL TRUCK DRIVER 0.5 mg Given 08/14/2017 9:17 AM MAIL TRUCK DRIVER 0.5 mg metroNIDAZOLE in NaCl (iso-osm) New Bag 08/14/2017 11:40 AM CS T 500 mg 200 mL/hr IVPB 500 mg (for_FLAGYL) 500 mg, intravenous, at 200 mL/hr, Administer over 30 Minutes, Once, On Sun08/14/17 at 1110, For 1 dose, Indications: Intra-abdominal infection, community acquired NaCl 0.9 % bolus 1,000 mL New Bag 08/14/2017 9:18 AM MAIL TRUCK DRIVER 1,000 mL 1,000 mL, intravenous, Once, On Sun08/14/17 at 0909, For 1 dose documented in this encounter Active and Recently Administered Medications Times are shown in MAIL TRUCK DRIVER. Scheduled Medication Order 08/12/2017 08/13/2017 08/14/2017 ciprofloxacin in D5W IVPB 400 mg (for_CIPRO) (COMPLETED) 1215 (New Bag - Provider: Georgette George R.N.)1315 (Stopped - Provider: Georgette George R.N.) 400 mg, intravenous, at 200 mL/hr, Admin ister over 60 Minutes, Once, On Sun08/14/17 at 1110, For 1 dose, premix bag, Drug Monitoring Program: Pharmacist to adjust medication order based on comorbities and indication., Indications: Intra-abdominal infection, communi ty acquired metroNIDAZOLE in NaCl (iso-osm) IVPB 500 mg (for_FLAGYL) (COMPLE KARUNA) 1140 (New Bag - Provider: Georgette George R.N.)1210 (Stopped - Provider: Rey MendozaNNaomi) 500 mg, intravenous, at 200 mL/hr, Admin ister over 30 Minutes, Once, On Sun08/14/17 at 1110, For 1 dose, Indications: Intra-abdominal infection, community acquired NaCl 0.9 % bolus 1,000 mL (COMPLETED) 0918 (New Bag - Provider: Georgette George R.N.)1050 (Stopped - Provider: Rey MendozaNNaomi) 1,000 mL, intravenous, Once, On Sun08/14/17 at 0909, For 1 dose PRN Medication Order 08/12/2017 08/13/2017 08/14/2017 HYDROmorphone injection 0.5 mg (for_DILAUDID) 0917 (Given - Provider: Georgette George R.N.)1126 (Given - Provider: Georgette George R.N.)1324 (Given - Provider: Georgette George R.N.) 0.5 mg, intravenous, Every 15 min PRN, s evere pain or score 7-10 of 10, Starting on Sun08/14/17 at 0908, For 4 doses documented in this encounter
--- OUTSIDE RECORDS SUMMARY | 2022-05-04 10:21 | XMS_ITS | Encounter Summary ---
:1955 Author Organization [facility] Address [address] [place] [address] Care Team Providers Name Role Phone Unavailable Primary Care Provider Unavailable Encounter Details Date Type Department Care Team Description 08/16/2017 Documentation Department of General Lucretia Gerardo, Surgery in [address] [phone] Social History Tobacco Use Types Packs/Day Years [...] or relatives? How often do you attend mosque or restoration More than 4 time s per year 09/17/2021 services? Do you belong to any clubs or organizations Yes 09/17/2021 such as mosque groups, unions, fraternal or athletic groups, or [...] documented as of this encounter Progress Notes Lucretia Gerardo L.PNaomiN. - 08/16/2017 9:59 AM CST Pt call states she was told to call for an appointment for drain removal for Sunday. Her surgery lapchole was done by Dr Feldman 08-14-17. She has had <30 cc in 24 hour period as of yesterday. 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 She does have an appointment for post op next week 08-22-17. Discussed with Dr Feldman via phone call and Dr Perez. PT is to be seen tomorrow for possible drain removal by Dr Perez in Gen Surg clinic. Post op order placed and appointment scheduled. RD KEEPER documented in this encounter Plan of Treatment Not on filedocumented as of this encounter Visit Diagnoses Not on filedocumented in this encounter
--- OUTSIDE RECORDS SUMMARY | 2022-05-04 10:21 | XMS_ITS | Encounter Summary ---
:1955 Author Organization [facility] Address [address] [place] [address] Care Team Providers Name Role Phone Unavailable Primary Care Provider Unavailable Encounter Details Date Type Department Care Team Description 01/29/2013 Hospital Encounter HX [facility] XRAY Provider, Histori reilly Social History Tobacco Use Types Packs/Day Years [...] or relatives? How often do you attend jewish or rastafarian More than 4 time s per year 09/17/2021 services? Do you belong to any clubs or organizations Yes 09/17/2021 such as jewish groups, unions, fraternal or athletic groups, or [...] place to sleep or slept in a mcc (including now)? Sex Assigned at Date Recorded [...] calcium Take 2 tablets by 0 05/26/2002 0214/2 022 carbonate-vitamin D3 500 mouth daily. mg(1,250mg) -125 unit per tablet documented as of this encounter Plan of Treatment Not on filedocumented as of this encounter Visit Diagnoses Not on filedocumented in this encounter
--- OUTSIDE RECORDS SUMMARY | 2022-05-04 10:21 | XMS_ITS | Encounter Summary ---
:1955 Author Organization [facility] Address [address] [place] [address] Care Team Providers Name Role Phone Unavailable Primary Care Provider Unavailable Encounter Details Date Type Department Care Team Description 01/29/2013 Hospital Encounter HX [facility] Solis Caicedo O.D. Social History Tobacco Use Types Packs/Day Years [...] or relatives? How often do you attend muslim or synagogue More than 4 time s per year 09/17/2021 services? Do you belong to any clubs or organizations Yes 09/17/2021 such as muslim groups, unions, fraternal or athletic groups, or [...] or slept in a fci (including now)? Sex Assigned at Date Recorded [...] encounter Progress Notes Solis Michaels O.D. - 01/29/2013 10:00 AM CDT [id number] Pain Questionnaire: Is your visit today because of Pain? NO C.C - COMPLETE EYE EXAM HPI - SHE IS STILL PLEASED WITH THE OUTCOME OF HER LASIK. SHE WILL WEAR OTC READERS IN LOW LIGHT SITUATIONS AND SMALL PRINT. HER MOTHER HAD MACULAR DEGNERATION BUT CONTINUES TO SEE WELL. Thuy Sharma, CIRILO REVIEW OF SYSTEMS: Skin: negative. Eyes: LASIK Ears/Nose/Throat: negative. Respiratory: negative. Cardiovascular: negative. Gastrointestinal: negative. Genitourinary: negative. Musculoskeletal: negative. Neurologic: negative. Psychiatric: negative. Hematologic/Lymphatic/Immunologic: negative. Endocrine: negative. MEDICATIONS: Current Outpatient Prescriptions Medication Sig FISH OIL 1200 MG OR CAPS 1 tab a day ASPIRIN 81 MG OR TABS 2 TABLET DAILY MULTIVITAMIN OR None Entered CALCIUM 500-125 MG-IU OR TABS 2 tab qd . FAMILY HISTORY: Family History Problem Relation Age of Onset Hypertension Mother Osteoporosis Mother Thyroid Mother Hypertension Father Lipids Father Genitourinary () Father turps x4 Cancer Father prostate Cardiovascular Father CAD severe Stroke Paternal Grandmother Breast CA Mother Distance Right Eye Left Eye Both Eyes CC SC 30+2 25-1 25 Pinhole Near Right Eye Left Eye Both Eyes @ 16 in CC @ 16 in SC 30 ON EXAM: Near point convergence: 1/3. Mobility: FROM. Pupils: PERRLA, MG and no afferent defect. Visual Field: Confrontation, WNL right eye & left eye. Induced Phorias: Distance: 2, exo. Near:8, exo. Vertical Phoria:ortho. Current RX: OTC READERS +1.75 Sphere Cylinder Casa Add Prism Right Eye +1.75 Left Eye +1.75 Refraction RET Right Eye RET Left Eye MR Right Eye +0.50 20/25- VA Both Eyes MR Left Eye +0.25 +0.25 060 20/25- 25+ ADD Right Eye +2.00 20/ VA Both Eyes ADD Left Eye +2.00 20/ 30- CYC Right Eye 20/ CYC Left Eye 20/ Final RX: NO RX IOP Right Eye 17 Left Eye 18 Tonometry Applination Dilation Medication Tropicamide 1.0% Optic Disc Assessment C/D Ratio Right Eye C/D Ratio Left Eye HPI ROS Physical Exam [facility] Document Id: [id number] Electronically signed by Conversion, [facility] Strategy Manager [id number] at 01/15/2017 6:09 PM CDT Solis Michaels O.D. - 01/29/2013 10:00 AM CDT [id number] CLINIC ENCOUNTER SLIT LAMP EXAMINATION: Shows angles to be open. Corneas: Well-healed LASIK, both eyes. Lenses: Clear, both eyes. Bulbar and palpebral conjunctivae: Clear. Lids clear, both eyes. Patient does have xanthelasma on lower lid margin nasally of left eye. INTERNAL: C/D = 0.3, 0.3 A/V = 2/3 FUNDUS: No apparent pathology. Macular reflex minus, both eyes. IMPRESSION: Low amount of hyperopic astigmatism with presbyopia. She does not want glasses for distance. Is satisfied with clpj-yhn-howfuck readers PLAN: At her request, no Rx for glasses given. She will continue to use +2.00 zsap-vum-pfjwdnw readers. Reevaluate with full exam in two years, sooner if needed. Hang Alfredo//law cc: [facility] Document Id: [id number] Electronically signed by Conversion, [facility] [id number] at 01/15/2017 6:09 PM CDT documented in this encounter Plan of Treatment Not on filedocumented as of this encounter Visit Diagnoses Not on filedocumented in this encounter
--- OUTSIDE RECORDS SUMMARY | 2022-05-04 10:21 | XMS_ITS | Encounter Summary ---
:1955 Author Organization [facility] Address [address] [place] [address] Care Team Providers Name Role Phone Unavailable Primary Care Provider Unavailable Encounter Details Date Type Department Care Team Description 12/15/2016 Hospital Encounter [facility]X [facility] Lora Coleman M.D. [address] [place] [phone] (Wo rk) Social History Tobacco Use Types Packs/Day Years Used Date Smoking Tobacco: Never Alcohol Habits Answer Date Recorded How often [...] or relatives? How often do you attend sabianism or quaker More than 4 time s per year 09/17/2021 services? Do you belong to any clubs or organizations Yes 09/17/2021 such as sabianism groups, unions, fraternal or athletic groups, or [...] or slept in a long-term (including now)? Sex Assigned at Date Recorded Female 05/11/2021 12:39 PM CDT documented as of this encounter Last Filed Vital Signs Vital Sign Reading Time Taken Comments Blood Pressure - - Pulse - - Temperature - - Respiratory Rate - - Oxygen Saturation - - Inhaled Oxygen Concentration - - Weight - - Height 156 cm (5' 1.42) 12/15/2016 9:03 AM CDT Body Mass Index - - documented in [...] daily. mg(1,250mg) -125 unit per tablet omega 4-lmb-qzu-fish oil Take 1 capsule by 0 10/1910/03/2021 600 mg-216 mg- 324 mouth daily. mg-1,200 mg capsule,delayed release(DR/EC) documented as of this encounter Miscellaneous Notes Miscellaneous - Conversion, Historical Provider Ser - 12/15/2016 11:59 PM CDT Coding Summary-Paper Based CODING DATE: 12/21/2016 FINAL [facility] STATUS: * Discharged to Home or Self Care PAYOR: Commercial Insurance ADMIT DX: REASON FOR VISIT DX: FINAL DX: PRINCIPAL: Z12.31 Encounter for screening mammogram for malignant neoplasm of breast SECONDARY: Z80.3 Family history of malignant neoplasm of breast PROCEDURES DOCTOR NAME DATE NOTE: The code number assigned matches the documented diagnosis and / or procedure in the patient's chart. However, the narrative phrase printed from the coding software may appear abbreviated, or result in slightly different terminology. Coded By: PAUL CLARKE Date Saved: 12/21/2016 03:02 pm Source: [facility] POWERCHART Document Id: [id number] documented in this encounter Plan of Treatment Not on filedocumented as of this encounter Visit Diagnoses Not on filedocumented in this encounter
--- OUTSIDE RECORDS SUMMARY | 2022-05-04 10:21 | XMS_ITS | Encounter Summary ---
:1955 Author Organization [facility] Address [address] [place] [address] Care Team Providers Name Role Phone Unavailable Primary Care Provider Unavailable Encounter Details Date Type Department Care Team Description 01/29/2013 Hospital Encounter HX NO MAPPING Yulissa Finn APRN, C.N.P. [address] [phone] (Wo rk) Social History Tobacco Use [...] or relatives? How often do you attend synagogue or oriental orthodox More than 4 time s per year 09/17/2021 services? Do you belong to any clubs or organizations Yes 09/17/2021 such as synagogue groups, unions, fraternal or athletic groups, or [...]
--- OUTSIDE RECORDS SUMMARY | 2022-05-04 10:21 | XMS_ITS | Encounter Summary ---
:1955 Author Organization [facility] Address [address] [place] [address] Care Team Providers Name Role Phone Unavailable Primary Care Provider Unavailable Encounter Details Date Type Department Care Team Description 03/04/2013 Hospital Encounter HX [facility] Ana Felix D.P.M. [address] [place] [phone] (Wo rk) Social History Tobacco Use Types [...] How often do you attend restorationism or adventist More than 4 time s per year [...] drops calcium Take 2 tablets by 0 05/26/200210/03/ 022 carbonate-vitamin D3 500 mouth daily. mg(1,250mg) -125 unit per tablet documented as of this encounter Miscellaneous Notes Telephone Encounter - Conversion, Historical Provider Ser - 03/04/2013 12:00 AM CDT [id number] Please call patient at [phone] concerning Source: [facility] RWHXTRANSXRTFSYS Document Id: [id number] documented in this encounter Plan of Treatment Not on filedocumented as of this encounter Visit Diagnoses Not on filedocumented in this encounter
--- OUTSIDE RECORDS SUMMARY | 2022-05-04 10:21 | XMS_ITS | Encounter Summary ---
:1955 Author Organization [facility] Address [address] [place] [address] Care Team Providers Name Role Phone Unavailable Primary Care Provider Unavailable Encounter Details Date Type Department Care Team Description 11/25/2015 Hospital Encounter HX [facility] Annemarie Basurto M.D. [address] [place], [place] [phone] (Wo rk) Social History [...] or relatives? How often do you attend mu-ism or pentecostalism More than 4 time s per year 09/17/2021 services? Do you belong to any clubs or organizations Yes 09/17/2021 such as mu-ism groups, unions, fraternal or athletic groups, or [...] - - Height 156 cm (5' 1.42) 11/25/2015 10:54 AM CDT Body Mass Index - - [...] daily. mg(1,250mg) -125 unit per tablet omega 6-kbg-abu-fish oil Take 1 capsule by 0 10/1910/03/2021 600 mg-216 mg- 324 mouth daily. mg-1,200 mg capsule,delayed release(DR/EC) documented as of this encounter Progress Notes Sabra Cespedes, COMT - 11/25/2015 10:41 AM CDT floaters & Flashes - L eye Ocular History: LASIK OU (Dr. Esquivel 1999) _ Last DFE: 01/29/13 VA sc 20/30+2 20/25-1 IOP 17 18 Last MR:01/29/13 R: +0.50 + sphere x _ L: +0.25 + 0.25 x 060 Patient presents for: floaters & flashes in Left eye 2-3 days (see triage note) History of present illness: Pt denies any changes in vision or areas of missing vision. Pt denies any recent head injury or trauma, pain, or headaches. Ocular Meds: None Visual Acuity using Snellen method for both eyes. Right Eye Left Eye Both Eyes Distance sc 20/ 25-2 20/20 20/_ Entrance Tests Pupils: PERRL APD: X Negative IOP Right Eye: 16 Left Eye: 17 Tonometry : X Applanation _ Tonopen Dilation Medication: OU @ 10:50 X Tropicamide 1.0% X Phenylephrine 2.5% _ Cyclogel 1.0% _ Paremyd Active Problems: Refer to patient chart. Past Medical History: Refer to patient chart. Allergies: Refer to patient chart. Review of Systems Respiratory: (X) Negative Other: _ Cardiovascular: () Negative Other: Hyperlipidemia Neurologic: (X) Negative Other: _ Endocrine: (X) Negative Other: _ Psychiatric: No apparent anxiety or depression. Pleasant affect. Electronically Signed By: DURAN ESQUIVEL MD On: 11/25/2015 12:40 PM Modified by and Electronically Signed by: SABRA CESPEDES On: 11/25/2015 10:54 AM Co-Signed By: DURAN ESQUIVEL MD On: 11/25/2015 12:40 PM Source: [facility] POWERCHART Document Id: [id number] Duran Esquivel M.D. - 11/25/2015 10:31 AM CDT [id number] Patient presents today with a recent onset of floaters in her left eye. There have been photopsias as well. It has been present for the last couple of days. She has a history of LASIK surgery for mildly high myopia, both eyes. PHYSICAL EXAMINATION Slit-lamp examination of the left eye, cornea clear with deep and quiet chamber. Lens shows mild nuclear sclerosis. Fundus dilated. I do not see any vitreous blood or pigment. I do see some vitreous debris. The discs, maculae, vessels, and periphery are normal. I did inspect the periphery to the ora maritza for 360 degrees and found no tears or holes. IMPRESSION/REPORT/PLAN Vitreous detachment of the left eye without peripheral retinal pathology. PLAN: Reassurance. Flashes and floaters handout given. Recheck if symptoms exacerbate. 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 Iron Loader Intake/History Adult Scrap Iron Loader Intake/History Entered On: 11/25/2015 10:55 CDT Performed On: 11/25/2015 10:54 CDT by SABRA CESPEDES Intake Chief Complaint : floaters and flashes in Left eye for 2-3 days Height : 156 cm(Converted to: 5 ft 1 inch(es), 61 inch(es)) SABRA CESPEDES - 11/25/2015 10:54 CDT General Info Information Given By : Patient Languages : Burundian Is Patient Female and 13-50 no hysterectomy : No SABRA CESPEDES - 11/25/2015 10:54 CDT Subjective Pain Symptoms : No SABRA CESPEDES - 11/25/2015 10:54 CDT Dependent Habits Exposure to Tobacco Smoke : Care provider denies smoking in home, Other: Never Smoking Status : Never smoker Tobacco 2A : No Tobacco Use/Currently Using : No Tobacco Use/Last 30 Days : No Tobacco Use/Last 12 months : No SABRA CESPEDES - 11/25/2015 10:54 CDT Caffeine Use Grid Caffeine Use : None SABRA CESPEDES - 11/25/2015 10:54 CDT Recreational Drug Use Grid Drug Use : None SABRA CESPEDES - 11/25/2015 10:54 CDT Source: [facility] MedServe Document Id: [id number] CDT!23 documented in this encounter Plan of Treatment Not on filedocumented as of this encounter Visit Diagnoses Not on filedocumented in this encounter
--- OUTSIDE RECORDS SUMMARY | 2022-05-04 10:22 | XMS_ITS | Encounter Summary ---
:1955 Author Organization [facility] Address [address] [place] [address] Care Team Providers Name Role Phone Unavailable Primary Care Provider Unavailable Encounter Details Date Type Department Care Team Description 01/13/2011 Hospital Encounter H[facility] XRAY Provider, Histori reilly Social History Tobacco [...] or relatives? How often do you attend baptist or voodoo More than 4 time s per year 09/17/2021 services? Do you belong to any clubs or organizations Yes 09/17/2021 such as baptist groups, unions, fraternal or athletic groups, or [...] Sig Dispensed Refills Start Date End Date calcium Take 2 tablets by 0 05/26/2002 022 carbonate-vitamin D3 500 mouth daily. mg(1,250mg) -125 unit per tablet documented as of this encounter Plan of Treatment Not on filedocumented as of this encounter Visit Diagnoses Not on filedocumented in this encounter
--- OUTSIDE RECORDS SUMMARY | 2022-05-04 10:22 | XMS_ITS | Encounter Summary ---
:1955 Author Organization [facility] Address [address] [place] [address] Care Team Providers Name Role Phone Unavailable Primary Care Provider Unavailable Encounter Details Date Type Department Care Team Description 07/01/2012 Hospital Encounter HX [facility] Trev Beach III, M.D. [address] [place] [phone] (Wo rk) Social History Tobacco Use [...] How often do you attend rastafari or christianity More than 4 time s per year [...] Sign Reading Time Taken Comments Blood Pressure 114/70 07/01/2012 9:29 AM GRAPE PRUNER Pulse 80 07/01/2012 9:29 AM GRAPE PRUNER Temperature - - Respiratory Rate 16 07/01/2012 9:29 AM GRAPE PRUNER Oxygen Saturation - - Inhaled Oxygen Concentration [...] documented as of this encounter Progress Notes Charlie Peñaloza M.D. - 07/01/2012 9:06 AM CST [id number] CHIEF COMPLAINT/REASON FOR VISIT Suture removal. HISTORY OF PRESENT ILLNESS Ms. Tolentino is a 57-year-old white female who had a significant laceration on her chin recently. She is here for removal of her stitches. Everything appears to be healing quite well. We are going to apply Dermabond to this following removal of all of her stitches. It appears that we are getting verygood closure out of this. IMPRESSION/REPORT/PLAN Suture removal. PLAN: Instructions on how to care for the Dermabond were explained to her. She expresses understanding. Her questions were answered and reassurance was given. Charlie Peñaloza M.D./carlene Electronically Signed By: CHARLIE PEÑALOZA III, MD On: 07/30/2012 08:36 AM Source: [facility] MHSDOLBEYNONRADSYS Document Id: [id number] E PRUNER documented in this encounter Miscellaneous Notes Miscellaneous - Paty Albarran, L.P.N. - 07/01/2012 9:36 AM CST Health Assessment Health Assessment Entered On: 07/01/2012 9:37 GRAPE PRUNER Performed On: 07/01/2012 9:36 GRAPE PRUNER by PATY ALBARRAN [facility] Health Assessment Complete Health Assessment Complete or Modified : Annual Health Assessment Annual Health Assessment Completed : Yes PATY ALBARRAN SHOVEL OILER - 07/01/2012 9:36 GRAPE PRUNER Nutrition Nutrition Risk Factors by History Adult : None PATY ALBARRAN [facility] - 07/01/2012 9:36 GRAPE PRUNER Functional Current Daily Living Assistance : None PATY ALBARRAN [facility] - 07/01/2012 9:36 GRAPE PRUNER Dependent Habits Tobacco Use/Currently Using : No Exposure to Tobacco Smoke : Care provider denies smoking in home Smoking Status : Never smoker PATY ALBARRAN [facility] - 07/01/2012 9:36 GRAPE PRUNER Tobacco Use Grid Last Use : never PATY ALBARRAN [facility] - 07/01/2012 9:36 GRAPE PRUNER Alcohol Use : No PATY ALBARRAN [facility] - 07/01/2012 9:36 GRAPE PRUNER Caffeine Use Grid Caffeine Use : None PATY ALBARRAN [facility] - 07/01/2012 9:36 GRAPE PRUNER Recreational Drug Use Grid Drug Use : None PATY ALBARRAN [facility] - 07/01/2012 9:36 GRAPE PRUNER Psychosocial Domestic Abuse Concerns : None PATY ALBARRAN [facility] - 07/01/2012 9:36 GRAPE PRUNER Advance Directive Advanced Directives : Yes PATY ALBARRAN SHOVEL OILER - 07/01/2012 9:36 GRAPE PRUNER Educ Needs Learning Style Preference Adult Grid Patient : None Family : None PATY ALBARRAN [facility] - 07/01/2012 9:36 GRAPE PRUNER Source: [facility] POWERCHART Document Id: [id number] E PRUNER Miscellaneous - Paty Albarran L.P.N. - 07/01/2012 9:29 AM CST Adult Skin Installer Intake/History Adult Skin Installer Intake/History Entered On: 07/01/2012 9:33 GRAPE PRUNER Performed On: 07/01/2012 9:29 GRAPE PRUNER by PATY ALBARRAN LPN Intake Chief Complaint : Removal of stiches on chin. Temperature Core : 36.4C(Converted to: 97.5DegF) (LOW) Peripheral Pulse Rate : 80/min Respiratory Rate : 16/min Systolic Blood Pressure : 114mmHg Diastolic Blood Pressure : 70mmHg NIBP Mean : 85mmHg BP Location : Right upper extremity Blood Pressure Cuff Size : Regular SpO2 : 97% Oxygen Therapy : Room air Weight Source : Other: refused PATY ALBARRAN LPN - 07/01/2012 9:29 GRAPE PRUNER Subjective Pain Symptoms : No PATY ALBARRAN LPN - 07/01/2012 9:29 GRAPE PRUNER Dependent Habits Tobacco Use/Currently Using : No Exposure to Tobacco Smoke : Care provider denies smoking in home Smoking Status : Never smoker PATY ALBARRAN LPN - 07/01/2012 9:29 GRAPE PRUNER Tobacco Use Grid Last Use : never PATY ALBARRAN LPN - 07/01/2012 9:29 GRAPE PRUNER Alcohol Use : No PATY ALBARRAN LPN - 07/01/2012 9:29 GRAPE PRUNER Caffeine Use Grid Caffeine Use : None PATY ALBARRAN LPN - 07/01/2012 9:29 GRAPE PRUNER Recreational Drug Use Grid Drug Use : None PATY ALBARRAN LPN - 07/01/2012 9:29 GRAPE PRUNER Allergy Allergies (Active) Ceftin Estimated Onset Date: Unspecified ; Reactions: hives ; Created By: MADDIE AGOSTO LPN; Reaction Status: Active ; Category: Drug ; Substance: Ceftin ; Type: Allergy ; Updated By: MADDIE AGOSTO LPN; Reviewed Date: 06/29/2012 10:29 GRAPE PRUNER Source: [facility] POWERCHART Document Id: [id number] E PRUNER documented in this encounter Plan of Treatment Not on filedocumented as of this encounter Visit Diagnoses Not on filedocumented in this encounter
--- OUTSIDE RECORDS SUMMARY | 2022-05-04 10:22 | XMS_ITS | Encounter Summary ---
:1955 Author Organization [facility] Address [address] [place] [address] Care Team Providers Name Role Phone Unavailable Primary Care Provider Unavailable Encounter Details Date Type Department Care Team Description 06/27/2012 Hospital Encounter HX [facility] Trev Beach III, M.D. [address] [place] [phone] (Wo rk) Social History Tobacco Use [...] How often do you attend mosque or muslim More than 4 time s [...] Sign Reading Time Taken Comments Blood Pressure 124/72 06/27/2012 1:11 PM PROJECT DRILLING ENGINEER Pulse 86 06/27/2012 1:11 PM PROJECT DRILLING ENGINEER Temperature - - Respiratory Rate 16 06/27/2012 1:11 PM PROJECT DRILLING ENGINEER Oxygen Saturation - - Inhaled Oxygen Concentration - - Weight - - Height - - Body Mass Index - - documented in this encounter Medications at Time of Discharge Medication Sig Dispensed Refills Start Date End Date aspirin [address] tablet Take 1 tablet by mouth 0 06/27/2012 daily. Misc Prescription Take 1 each by mouth 0 06/27/20 12 (Allergy Immunotherapy) as needed (allergies). Homeopathic remedy drops calcium Take 2 tablets by 0 05/26/2002 022 carbonate-vitamin D3 mouth daily. 500 mg(1,250mg) -125 unit per tablet documented as of this encounter Progress Notes Charlie Peñaloza M.D. - 06/27/2012 12:58 PM CST [id number] CHIEF COMPLAINT/REASON FOR VISIT Recheck chin. HISTORY OF PRESENT ILLNESS Ms. Tillman is a 57-year-old white female who fell and split her chin while at work at [employer]. There is quite a large laceration that we will plan on repairing today. She also suffered some shoulder pain when she fell. Reportedly, when she fell, she hit her chin on a plastic pitcher that she was holding. She denies any considerable pain at this time in her chin, but does have considerable pain in her left shoulder. SYSTEMS REVIEW Pertinent positives and negatives are noted above. The remainder of the complete review of systems is negative. PAST MEDICAL/SURGICAL HISTORY Osteopenia since 2006. PHYSICAL EXAMINATION VITAL SIGNS: Temperature 36.4 degreesC, pulse 86, respirations 16, blood pressure 124/72. GENERAL: The patient is alert and cooperative. She is in no acute distress at this time. SKIN: Evaluation her chin shows a complex laceration from the area just below her lip extending 4 cmaround the chin and to the underside. The depth is approximately 1 cm. The underlying muscle appearsto be intact. MUSCULOSKELETAL: Evaluation her shoulder shows significant pain at or about the surgical neck. She is unable to raise her arm due to pain. PROCEDURE: Complex open wound of the face. Anesthesia - 1% lidocaine. Procedure - After discussing the risks, benefits and alternatives of closure, the patient consented to having closure of her chin with sutures. Using #4-O Vicryl, the base layer was closed with 3 interrupted buried sutures. Next, using 5-O nylon, simple interrupted sutures were placed to close the superficial skin. The patient tolerated this well. Hemostasis was obtained almost instantaneously upon closure. Complications - None. Blood Loss - Approximately 10 mL. DIAGNOSTIC: X-ray shows surgical neck fracture of the humerus. IMPRESSION/REPORT/PLAN 1. Open wound of the face with complication. 2. Closed fracture of the proximal end of the humerus. 3. Shoulder pain. 4. Tetanus vaccine. PLAN: 1. As noted above, the facial laceration was closed. We will plan on seeing her back in a couple of days for a recheck. Probable suture removal in 4-5 days. 2. Fracture of the shoulder. The patient will be referred to orthopedics for possible intervention. For now, her questions were answered and reassurance was given. Charlie Peñaloza M.D./carlene Electronically Signed By: CHARLIE PEÑALOZA III, MD On: 07/30/2012 08:36 AM Source: [facility] MHSDOLBEYNONRADSYS Document Id: [id number] ECT DRILLING ENGINEER documented in this encounter Miscellaneous Notes Miscellaneous - Charlie Peñaloza M.D. - 06/27/2012 3:20 PM CST Ambulatory Depart Summary [address] [id number] Visit Information Name: COLLEEN TILLMAN Visit Date: 06/27/2012 15:20:17 Attending Provider: CHARLIE PEÑALOZA III, MD Primary Care Provider: PCP, COLLEEN BAILEY has been given the following list of medications: Your Medications It is important to take your medications as directed. Use a pill box or chart to help remind you to take your medications. Please let your doctor or nurse know if you have problems taking your medications. Medication/Strength Dose Route Frequency Indications/Special Instructions/Comments Misc Prescription (Melaluca vitamins) 1 packet Oral once a day omega-3 polyunsaturated fatty acids (Fish Oil oral capsule) 2 cap(s) Oral once a day aspirin (aspirin 81 mg oral tablet) 81 mg Oral once a day Attention: If you have any medications at home that are not on this list, DO NOT take them until youcontact your provider for clarification. Additional Information: Source: [facility] [employer] Document Id: [id number] ENCE Vazquezaneous - Charlie Peñaloza M.D. - 06/27/2012 3:20 PM CST Ambulatory Patient Summary [address] [address] Visit Information Name: COLLEEN TILLMAN Current Date: 06/27/2012 15:20:18 Physicians Attending Provider: CHARLIE PEÑALOZA III, MD Primary Care Provider: PCP, ELSEWHERE Your Medications Here is a list of your medications. It is important to take your medications as directed. Use a pillbox or chart to help remind you to take your medications. Please let your doctor or nurse know if you have problems taking your medications. Medication/Strength Dose Route Frequency Indications/Special Instructions/Comments Misc Prescription (Melaluca vitamins) 1 packet Oral once a day omega-3 polyunsaturated fatty acids (Fish Oil oral capsule) 2 cap(s) Oral once a day aspirin (aspirin 81 mg oral tablet) 81 mg Oral once a day Attention: If you have any medications at home that are not on this list, DO NOT take them until youcontact your provider for clarification. Your Allergies & Intolerances Substance Reaction Symptoms Category Comments Ceftin hives Drug Your Problem List Problem Status Onset Comments Osteopenia Active 08/20/2006 Your Upcoming Appointments Date Time Location Reason Provider No Appointments found Your Goals/Additional instructions: Source: [facility] [employer] Document Id: [id number] ECT DRILLING ENGINEER Miscellaneous - Maddie Strong L.P.N. - 06/27/2012 1:11 PM CST Adult Yard Demurrage Clerk Intake/History Adult Yard Demurrage Clerk Intake/History Entered On: 06/27/2012 13:13 PROJECT DRILLING ENGINEER Performed On: 06/27/2012 13:11 PROJECT DRILLING ENGINEER by MADDIE STRONG LPN Intake Chief Complaint : Fell and cut chin and hurt left shoulder Temperature Core : 36.4C(Converted to: 97.5DegF) (LOW) Peripheral Pulse Rate : 86/min Respiratory Rate : 16/min Heart Rhythm : Regular Systolic Blood Pressure : 124mmHg Diastolic Blood Pressure : 72mmHg NIBP Mean : 89mmHg BP Location : Right upper extremity Blood Pressure Cuff Size : Large MADDIE STRONG LPN - 06/27/2012 13:11 PROJECT DRILLING ENGINEER Subjective Pain Symptoms : Yes MADDIE STRONG LPN - 06/27/2012 13:11 PROJECT DRILLING ENGINEER Pain Pain Assessment Grid Pain 1 Location : Shoulder Laterality : Left Intensity : 7 Time Pattern : Acute Onset : Sudden Quality : Aching, Other: spasms Pain Radiation : No Aggravating Factors : None Alleviating Factors : None Associated Symptoms : None Interventions : Cold MADDIE STRONG LPN - 06/27/2012 13:11 PROJECT DRILLING ENGINEER Dependent Habits Tobacco Use/Currently Using : No Tobacco Use/Last 12 months : No Tobacco Use/Advised to Quit : No Exposure to Tobacco Smoke : Care provider denies smoking in home Smoking Status : Never smoker Alcohol Use : No MADDIE STRONG LPN - 06/27/2012 13:11 PROJECT DRILLING ENGINEER Caffeine Use Grid Caffeine Use : None MADDIE STRONG LPN - 06/27/2012 13:11 PROJECT DRILLING ENGINEER Recreational Drug Use Grid Drug Use : None MADDIE STRONG LPN - 06/27/2012 13:11 PROJECT DRILLING ENGINEER Allergy Allergies (Active) Ceftin Estimated Onset Date: Unspecified ; Reactions: hives ; Created By: MADDIE STRONG LPN; Reaction Status: Active ; Category: Drug ; Substance: Ceftin ; Type: Allergy ; Updated By: MADDIE STRONG LPN; Reviewed Date: 06/27/2012 13:10 PROJECT DRILLING ENGINEER [email or web address] Document Id: [id number] ECT DRILLING ENGINEER documented in this encounter Plan of Treatment Not on filedocumented as of this encounter Visit Diagnoses Not on filedocumented in this encounter
--- OUTSIDE RECORDS SUMMARY | 2022-05-04 10:22 | XMS_ITS | Encounter Summary ---
:1955 Author Organization [facility] Address [address] [place] [address] Care Team Providers Name Role Phone Unavailable Primary Care Provider Unavailable Encounter Details Date Type Department Care Team Description 10/08/2012 Hospital Encounter HX NO MAPPING Cayetano Raphael, PRonaldo C. Social History Tobacco Use Types Packs/Day Years [...] or relatives? How often do you attend caodaism or adventism More than 4 time s per year 09/17/2021 services? Do you belong to any clubs or organizations Yes 09/17/2021 such as caodaism groups, unions, fraternal or athletic groups, or [...]
--- OUTSIDE RECORDS SUMMARY | 2022-05-04 10:22 | XMS_ITS | Encounter Summary ---
:1955 Author Organization [facility] Address [address] [place] [address] Care Team Providers Name Role Phone Unavailable Primary Care Provider Unavailable Encounter Details Date Type Department Care Team Description 01/03/2011 Hospital Encounter HX [facility] XRAY Provider, Histori reilly Social History [...] How often do you attend yazdanism or rastafarian More than 4 time s [...]
--- OUTSIDE RECORDS SUMMARY | 2022-05-04 10:22 | XMS_ITS | Encounter Summary ---
:1955 Author Organization [facility] Address [address] [place] [address] Care Team Providers Name Role Phone Unavailable Primary Care Provider Unavailable Encounter Details Date Type Department Care Team Description 07/16/2012 Hospital Encounter HX NO MAPPING Carlos Lawton, PRonaldo C. Social History Tobacco Use Types [...] How often do you attend uatsdin or jainism More than 4 time s [...] Sign Reading Time Taken Comments Blood Pressure 136/78 07/16/2012 3:41 PM SENIOR WEB DEVELOPER Pulse 88 07/16/2012 3:41 PM SENIOR WEB DEVELOPER Temperature - - Respiratory Rate 16 07/16/2012 3:41 PM SENIOR WEB DEVELOPER Oxygen Saturation - - Inhaled Oxygen Concentration [...] per tablet documented as of this encounter Consult Notes Carlos Lawton - 07/16/2012 3:36 PM CST [id number] IMPRESSION/REPORT/PLAN Ms. Tillman is a 57-year-old female with a comminuted displaced fracture of her proximal humerus which is still felt to be in acceptable alignment at today's visit. We talked about her situation and because she is almost three weeks out, we decided to let her start up with some physical therapy in the next week or so, some gentle passive motion activities, and eventually some active assistive motion, and once she is about 5-6 weeks out she can begin some more aggressive strengthening type maneuvers. If she has any questions, she was encouraged to call. Otherwise, she will work closely with physical therapy and still be very careful with regards to her activity modification and see us back in three weeks time for a new set of x-rays of her shoulder to ensure that things look good, or, of course see us sooner if necessary. CHIEF COMPLAINT/REASON FOR VISIT Ms. Tillman is a 57-year-old female who is here today for follow-up of her left proximal humerus fracture. HISTORY OF PRESENT ILLNESS She is almost three weeks out from an injury in which she sustained a comminuted, mildly displaced fracture. We have been carefully watching the articular surface of the humerus to ensure that there has been no significant fracture migration and she is here today for follow-up radiographs. PHYSICAL EXAM On examination, very gentle passive motion shows her to be able to forward flex to over 50 degrees-60 degrees quite easily. Abduction is about 45 degrees, and I am sure I could have gone further, but Idon't feel the need to test things. Strength with external rotation is 4-/5 which is slightly concerning, but based on her injury and how mobile she has been, this is not terribly concerning yet. Internal rotation strength is 4/5 and supraspinatus strength is obviously not tested. IMAGING STUDIES: Radiographs reveal no significant change in fracture alignment. Again, careful evaluation of the glenohumeral joint shows the articulating surfaces to be intact, and although it has migrated because of the fracture, it has not changed dramatically in the recent weeks. Carlos Lawton P.A.-C./carlene Electronically Signed By: CARLOS LAWTON PA-C On: 08/06/2012 02:15 PM Source: [facility] MHSDOLBEYNRYLEYRADSYS Document Id: [id number] OR WEB DEVELOPER documented in this encounter Miscellaneous Notes Miscellaneous - Carlos Lawton - 07/16/2012 5:06 PM CST Ambulatory Depart Summary [facility] [id number] [place] [address] Visit Information Name: LAYNESOLANGECOLLEEN [facility] Number: [id number] Visit Date: 07/16/2012 17:06:53 Attending Provider: CARLOS LAWTON PA-C Primary Care Provider: PCP, VENU CHRISTIANSOLANGE NEWSOMENNE has been given the following list of medications: Your Medications It is important to take your medications as directed. Use a pill box or chart to help remind you to take your medications. Please let your doctor or nurse know if you have problems taking your medications. Medication/Strength Dose Route Frequency Indications/Special Instructions/Comments acetaminophen (Tylenol 500 mg oral tablet) 2 tab(s) as needed ibuprofen (ibuprofen 200 mg oral tablet) 600 mg Oral every 4 hours as needed for Pain / Fever Take with food Misc Prescription (Melaluca vitamins) 1 packet Oral once a day omega-3 polyunsaturated fatty acids (Fish Oil oral capsule) 2 cap(s) Oral once a day aspirin (aspirin 81 mg oral tablet) 81 mg Oral once a day Attention: If you have any medications at home that are not on this list, DO NOT take them until youcontact your provider for clarification. Additional Information: Source: [facility] POWERCHART Document Id: [id number] OR WEB DEVELOPER Miscellaneous - Carlos Lawton - 07/16/2012 5:06 PM CST Ambulatory Patient Summary [id number] Visit Information Name: COLLEEN TILLMAN [facility] Number: [id number] Current Date: 07/16/2012 17:06:54 Physicians Attending Provider: CARLOS LAWTON PA-C Primary Care Provider: PCP, ELSEWHERE Your Medications Here is a list of your medications. It is important to take your medications as directed. Use a pillbox or chart to help remind you to take your medications. Please let your doctor or nurse know if you have problems taking your medications. Medication/Strength Dose Route Frequency Indications/Special Instructions/Comments acetaminophen (Tylenol 500 mg oral tablet) 2 tab(s) as needed ibuprofen (ibuprofen 200 mg oral tablet) 600 mg Oral every 4 hours as needed for Pain / Fever Take with food Misc Prescription (Melaluca vitamins) 1 packet Oral [...] Problem Status Onset Comments Osteopenia Active 08/20/2006 No current problems or disability Active 06/27/2012 Your Upcoming Appointments Date Time Location Reason Provider 07/25/2012 07:45 [facility] PT/OT LEFT proximal humerus Fx, comminuted and mildly displaced. Begin GENTLE PROM for weeks 3-4 out from Fx, then gentle AAROM wks 4- 5, progress from there. Thanks. Edgardo Vincent 08/06/2012 10:15 [facility] Follow up on Lt shoulder Carlos Lawton PA-C Your Goals/Additional instructions: Source: [facility] POWERCHART Document Id: [id number] OR WEB DEVELOPER Miscellaneous - Rossy Ziegler R.N. - 07/16/2012 3:41 PM CST Adult Textiles Printer Intake/History Adult Textiles Printer Intake/History Entered On: 07/16/2012 15:46 SENIOR WEB DEVELOPER Performed On: 07/16/2012 15:41 SENIOR WEB DEVELOPER by ROSSY ZIEGLER tank truck operator Chief Complaint : f/u lt shoulder fx Temperature Core : 36.6C(Converted to: 97.9DegF) Peripheral Pulse Rate : 88/min Respiratory Rate : 16/min Heart Rhythm : Regular Systolic Blood Pressure : 136mmHg Diastolic Blood Pressure : 78mmHg NIBP Mean : 97mmHg BP Location : Right upper extremity Blood Pressure Cuff Size : Large ROSSY ZIEGLER RN - 07/16/2012 15:41 SENIOR WEB DEVELOPER General Info Information Given By : Patient Preferred Communication Mode : Verbal Languages : Swedish ROSSY ZIEGLER RN - 07/16/2012 15:41 SENIOR WEB DEVELOPER Subjective Pain Symptoms : Yes ROSSY ZIEGLER RN - 07/16/2012 15:41 SENIOR WEB DEVELOPER Pain Pain Assessment Grid Pain 1 Location : Shoulder Laterality : Left Time Pattern : Chronic, Intermittent ROSSY ZIEGLER RN - 07/16/2012 15:41 SENIOR WEB DEVELOPER Dependent Habits Tobacco Use/Currently Using : No Exposure to Tobacco Smoke : Care provider denies smoking in home Smoking Status : Never smoker ROSSY ZIEGLER RN - 07/16/2012 15:41 SENIOR WEB DEVELOPER Tobacco Use Grid Last Use : never ROSSY ZIEGLER RN - 07/16/2012 15:41 SENIOR WEB DEVELOPER Caffeine Use Grid Caffeine Use : None ROSSY ZIEGLER RN - 07/16/2012 15:41 SENIOR WEB DEVELOPER Recreational Drug Use Grid Drug Use : None ROSSY ZIEGLER RN - 07/16/2012 15:41 SENIOR WEB DEVELOPER Allergy Allergies (Active) Ceftin Estimated Onset Date: Unspecified ; Reactions: hives ; Created By: MADDIE AGOSTO LPN; Reaction Status: Active ; Category: Drug ; Substance: Ceftin ; Type: Allergy ; Updated By: MADDIE AGOSTO LPN; Reviewed Date: 07/16/2012 15:39 SENIOR WEB DEVELOPER Source: [facility] [employer] Document Id: [id number] OR WEB DEVELOPER documented in this encounter Plan of Treatment Not on filedocumented as of this encounter Visit Diagnoses Not on filedocumented in this encounter
--- OUTSIDE RECORDS SUMMARY | 2022-05-04 10:22 | XMS_ITS | Encounter Summary ---
:1955 Author Organization [facility] Address [address] [place] [address] Care Team Providers Name Role Phone Unavailable Primary Care Provider Unavailable Encounter Details Date Type Department Care Team Description 01/13/2011 Hospital Encounter HX NO MAPPING Yulissa Finn APRN, C.N.P. [address] [phone] (Wo rk) Social History Tobacco Use [...] How often do you attend scientologist or jew More than 4 time s [...] Date calcium Take 2 tablets by 0 05/26/200210/03/ 022 carbonate-vitamin D3 500 mouth daily. mg(1,250mg) -125 unit per tablet documented as of this encounter Plan of Treatment Not on filedocumented as of this encounter Visit Diagnoses Not on filedocumented in this encounter
--- OUTSIDE RECORDS SUMMARY | 2022-05-04 10:22 | XMS_ITS | Encounter Summary ---
:1955 Author Organization [facility] Address [address] [place] [address] Care Team Providers Name Role Phone Unavailable Primary Care Provider Unavailable Encounter Details Date Type Department Care Team Description 09/03/2012 Hospital Encounter HX NO MAPPING Cayetano Raphael, [...] or relatives? How often do you attend zoroastrianism or latter day More than 4 time s per year 09/17/2021 services? Do you belong to any clubs or organizations Yes 09/17/2021 such as zoroastrianism groups, unions, fraternal or athletic groups, or [...]
--- OUTSIDE RECORDS SUMMARY | 2022-05-04 10:22 | XMS_ITS | Encounter Summary ---
:1955 Author Organization [facility] Address [address] [place] [address] Care Team Providers Name Role Phone Unavailable Primary Care Provider Unavailable Encounter Details Date Type Department Care Team Description 07/05/2012 Hospital Encounter HX NO MAPPING Cayetano Raphael, [...] or relatives? How often do you attend restorationist or gnosticist More than 4 time s per year 09/17/2021 services? Do you belong to any clubs or organizations Yes 09/17/2021 such as restorationist groups, unions, fraternal or athletic groups, or [...]
--- OUTSIDE RECORDS SUMMARY | 2022-05-04 10:22 | XMS_ITS | Encounter Summary ---
:1955 Author Organization [facility] Address [address] [place] [address] Care Team Providers Name Role Phone Unavailable Primary Care Provider Unavailable Encounter Details Date Type Department Care Team Description 08/06/2012 Hospital Encounter HX NO MAPPING Cayetano Raphael, [...] or relatives? How often do you attend orthodoxy or moravian More than 4 time s per year 09/17/2021 services? Do you belong to any clubs or organizations Yes 09/17/2021 such as orthodoxy groups, unions, fraternal or athletic groups, or [...]
--- OUTSIDE RECORDS SUMMARY | 2022-05-04 10:22 | XMS_ITS | Encounter Summary ---
:1955 Author Organization [facility] Address [address] [place] [address] Care Team Providers Name Role Phone Unavailable Primary Care Provider Unavailable Encounter Details Date Type Department Care Team Description 06/29/2012 Hospital Encounter HX [facility] FAM[facility] Trev Beach III, M.D. [address] [place] [phone] (Wo rk) Social History Tobacco Use [...] or relatives? How often do you attend religion or adventist More than 4 time s per year 09/17/2021 services? Do you belong to any clubs or organizations Yes 09/17/2021 such as religion groups, unions, fraternal or athletic groups, or [...] Sign Reading Time Taken Comments Blood Pressure 108/60 06/29/2012 10:24 AM PHOTOGRAPHIC EQUIPMENT TECHNICIAN Pulse 76 06/29/2012 10:24 AM PHOTOGRAPHIC EQUIPMENT TECHNICIAN Temperature - - Respiratory Rate 18 06/29/2012 10:24 AM PHOTOGRAPHIC EQUIPMENT TECHNICIAN Oxygen Saturation - - Inhaled Oxygen Concentration [...] encounter Progress Notes Charlie Peñaloza M.D. - 06/29/2012 10:05 AM CST [id number] CHIEF COMPLAINT/REASON FOR VISIT Ms. Tillman is a 57-year-old white female who had a fall on . She split open her chin and fractured her left proximal humerus. She is in to have a quick check of her sutures to make sure the incision is clean, dry and intact which it is. We did put her arm in a shoulder immobilizer. I will plan on seeing her back on Sunday for removal of those sutures and placement of glue. Her questions were answered and reassurance was given. This will be a no charge followup. Charlie Peñaloza M.D./carlene Electronically Signed By: CHARLIE PEÑALOZA III, MD On: 07/12/2012 05:21 PM [facility] Document Id: [id number] OGRAPHIC EQUIPMENT TECHNICIAN documented in this encounter Miscellaneous Notes Miscellaneous - Charlie Peñaloza M.D. - 06/29/2012 11:21 AM CST Ambulatory Depart Summary [address] [address] Visit Information Name: COLLEEN TILLMAN Visit Date: 06/29/2012 11:21:25 Attending Provider: CHARLIE PEÑALOZA III, MD Primary Care Provider: PCPVENU YVONNE has been given the following list of [...] for Pain / Fever Take with food celecoxib (Celebrex 200 mg oral capsule) 200 mg Oral once a day as needed for pain Misc Prescription (Melaluca vitamins) 1 packet Oral once a day omega-3 polyunsaturated fatty acids (Fish Oil oral capsule) 2 cap(s) Oral once a day aspirin (aspirin 81 mg oral tablet) 81 mg Oral once a day Attention: If you have any medications at home that are not on this list, DO NOT take them until youcontact your provider for clarification. Additional Information: Source: [facility] POWERCHART Document Id: [id number] OGRAPHIC EQUIPMENT TECHNICIAN Miscellaneous - Charlie Peñaloza M.D. - 06/29/2012 11:21 AM CST Ambulatory Patient Summary [address] [address] Visit Information Name: COLLEEN TILLMAN Current Date: 06/29/2012 11:21:25 Physicians Attending Provider: CHARLIE PEÑALOZA III, MD [...] for Pain / Fever Take with food celecoxib (Celebrex 200 mg oral capsule) 200 mg Oral once a day as needed for pain [facility] [place] (Melaluca vitamins) 1 packet Oral once [...] Upcoming Appointments Date Time Location Reason Provider 07/01/2012 09:00 [facility] Family Med stitches removed Charlie Peñaloza MD 07/05/2012 08:30 [facility] Clin follow up fracture Donavon REED, Cayetano Vela Your Goals/Additional instructions: Source: [facility] POWERCHART Document Id: [id number] OGRAPHIC EQUIPMENT TECHNICIAN Miscellaneous - Cliff Griffiths L.P.N. - 06/29/2012 10:24 AM CST Adult Accountant Cost Intake/History Adult Accountant Cost Intake/History Entered On: 06/29/2012 10:29 PHOTOGRAPHIC EQUIPMENT TECHNICIAN Performed On: 06/29/2012 10:24 PHOTOGRAPHIC EQUIPMENT TECHNICIAN by CLIFF GRIFFITHS LPN Intake Chief Complaint : Follow up check stiches Temperature Core : 36.8C(Converted to: 98.2DegF) Peripheral Pulse Rate : 76/min Respiratory Rate : 18/min Heart Rhythm : Regular Systolic Blood Pressure : 108mmHg Diastolic Blood Pressure : 60mmHg NIBP Mean : 76mmHg BP Location : Right upper extremity Blood Pressure Cuff Size : Large Weight Source : Other: declined CLIFF GRIFFITHS [facility] - 06/29/2012 10:24 PHOTOGRAPHIC EQUIPMENT TECHNICIAN Subjective Pain Symptoms : Yes CLIFF GRIFFITHS [facility] - 06/29/2012 10:24 PHOTOGRAPHIC EQUIPMENT TECHNICIAN Pain Pain Assessment Grid Pain 1 Location : Shoulder Laterality : Left Intensity : 2 CLIFF GRIFFITHS [employer] - 06/29/2012 10:24 PHOTOGRAPHIC EQUIPMENT TECHNICIAN Dependent Habits Tobacco Use/Currently Using : No Exposure to Tobacco Smoke : Care provider denies smoking in home Smoking Status : Never smoker CLIFF GRIFFITHS [facility] - 06/29/2012 10:24 PHOTOGRAPHIC EQUIPMENT TECHNICIAN Tobacco Use Grid Last Use : never CLIFF GRIFFITHS LPN - 06/29/2012 10:24 PHOTOGRAPHIC EQUIPMENT TECHNICIAN Alcohol Use : No CLIFF GRIFFITHS [facility] - 06/29/2012 10:24 PHOTOGRAPHIC EQUIPMENT TECHNICIAN Caffeine Use Grid Caffeine Use : None CLIFF GRIFFITHS [facility] - 06/29/2012 10:24 PHOTOGRAPHIC EQUIPMENT TECHNICIAN Recreational Drug Use Grid Drug Use : None CLIFF GRIFFITHS LPN 06/29/2012 10:24 PHOTOGRAPHIC EQUIPMENT TECHNICIAN Allergy Allergies (Active) Ceftin Estimated Onset Date: Unspecified ; Reactions: hives ; Created By: MADDIE AGOSTO LPN; Reaction Status: Active ; Category: Drug ; Substance: Ceftin ; Type: Allergy ; Updated By: MADDIE AGOSTO LPN; Reviewed Date: 06/28/2012 10:44 PHOTOGRAPHIC EQUIPMENT TECHNICIAN Source: [facility] WiSpryCHART Document Id: [id number] OGRAPHIC EQUIPMENT TECHNICIAN documented in this encounter Plan of Treatment Not on filedocumented as of this encounter Visit Diagnoses Not on filedocumented in this encounter
--- OUTSIDE RECORDS SUMMARY | 2022-05-04 10:22 | XMS_ITS | Encounter Summary ---
:1955 Author Organization [facility] Address [address] [place] [address] Care Team Providers Name Role Phone Unavailable Primary Care Provider Unavailable Encounter Details Date Type Department Care Team Description 01/23/2011 Hospital Encounter HX [facility] Sabina Marquez, RDN, CDE [address] [place] [phone] Social History Tobacco Use Types Packs/Day [...] or relatives? How often do you attend yarsanism or mormon More than 4 time s per year 09/17/2021 services? Do you belong to any clubs or organizations Yes 09/17/2021 such as yarsanism groups, unions, fraternal or athletic groups, or [...] place to sleep or slept in a penitentiary (including now)? Sex Assigned at Date Recorded Female 05/11/2021 12:39 PM CDT documented as of this encounter Medications at Time of Discharge Medication Sig Dispensed Refills Start Date End Date calcium Take 2 tablets by 0 05/26/2002 022 carbonate-vitamin D3 500 mouth daily. mg(1,250mg) -125 unit per tablet documented as of this encounter Progress Notes Sabina Marquez, NIKI, C.D.E. - 01/23/2011 10:30 AM CDT [id number] S: Patient seen for f/u weight management and lipid nutrition education. Patient states: 1-she knows what foods are better for her to be eating, but not always easy with family. Two children would eat what she eats but likes more junk. 2-knows she is an emotional eater 3-late afternoon really has the munchies 4-just has some questions to ask Breakfast: 1/2 banana, skim milk, banana nut muffin or Raisin [place] muffin, hard boiled egg, 1/2 banana, 8 oz milk Lunch: 1/2 sandwich/meat/cheese, carrot sticks Supper: varies Exercise: 3x/week walks on treadmill or outside 1-2 miles; is trying to increase to 5x/week O: Chol 235 TG 72 HDL 60 LDL 160 Ht. 5'2 Wt. 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 She is aware that emotional eating is contributing to extra calories and likely higher fat foods at times which increases cholesterol and weight. Patient is familiar with nutritious eating habits, so working more on mindful eating/sress reductionwould be most beneficial P: Spent 20 minutes with patient. Provided and discussed: Plate method; Info regarding various calorie meal plans Qi Gong information Increase activity to at least 5 days/week F/U as warranted. Source: [facility]RT[facility] Document Id: [id number] Electronically signed by Conversion, [facility] Swager Operator [id number] at 01/20/2017 10:56 PM CDT documented in this encounter Plan of Treatment Not on filedocumented as of this encounter Visit Diagnoses Not on filedocumented in this encounter
--- OUTSIDE RECORDS SUMMARY | 2022-05-04 10:22 | XMS_ITS | Encounter Summary ---
:1955 Author Organization [facility] Address [address] [place] [address] Care Team Providers Name Role Phone Unavailable Primary Care Provider Unavailable Encounter Details Date Type Department Care Team Description 06/28/2012 Hospital Encounter HX NO MAPPING Gilma Gonzales M.D. [address] [place] [phone] (Wo rk) Social History Tobacco [...] often do you attend latter day or lutheran More than 4 time s per year [...] Sign Reading Time Taken Comments Blood Pressure 130/80 06/28/2012 10:37 AM TEACHING MANAGER Pulse - - Temperature - - Respiratory [...] documented as of this encounter Consult Notes Te Gonzales M.D. - 06/28/2012 10:22 AM CST [id number] IMPRESSION/REPORT/PLAN Proximal humeral fracture with some mild displacement of the fracture site. I discussed with her the treatment options including fixation of this fracture versus allowing it toheal conservative. At this point in time, she elects to proceed with conservative treatment. We would keep her in a sling or shoulder immobilizer to help with immobilization of this region. Will plan to see her back for recheck x-rays in a couple weeks. At that time, once she is in the range of 3 weeks out from this injury, will consider the possibility of starting some gentle range of motion with physical therapy. TOTAL TIME: greater than 20 minutes with more than 50% of this in counseling in regards to treatmentoptions for her left proximal humerus fracture. HISTORY OF PRESENT ILLNESS This 57-year-old woman is here in regards to her left shoulder. She was found to have a proximal humeral fracture and she is sent here today for continuing care. PHYSICAL EXAMINATION EXTREMITIES/JOINTS: on examination of her shoulder, she has significant bruising and swelling about the shoulder and upper portion of her arm. Her sensation is intact to light touch in the median, radial and ulnar nerve distributions as well as the axillary nerve distribution. IMAGING: x-rays of her left shoulder previously obtained demonstrate a proximal humeral fracture that is at least a 3, if not a 4-part fracture. Overall alignment is reasonably good, however, the humeral head is somewhat tilted down causing the articular surface to face somewhat upward. Te Gonzales M.D./ines Electronically Signed By: TE GONZALES MD On: 08/06/2012 03:38 PM Source: [facility] MHSDOLBEYNONRADSYS Document Id: [id number] HING MANAGER documented in this encounter Miscellaneous Notes Miscellaneous - Te Gonzales M.D. - 06/28/2012 12:16 PM CST Ambulatory Patient Summary [address] [address] Visit Information Name: DAMIAN TILLMAN Current Date: 06/28/2012 12:16:08 Physicians Attending Provider: TE GONZALES MD Primary Care Provider: PCP, ELSEWHERE Your Medications Here is a list of your medications. It is important to take your medications as directed. Use a pillbox or chart to help remind you to take your medications. Please let your doctor or nurse know if you have problems taking your medications. Medication/Strength Dose Route Frequency Indications/Special Instructions/Comments celecoxib (Celebrex 200 mg oral capsule) 200 [...] 08/20/2006 No current problems or disability Active Your Upcoming Appointments Date Time Location Reason Provider 07/05/2012 08:30 [facility] Clin follow up fracture Donavon REED, Cayetano Vela Your Goals/Additional instructions: Source: [facility] POWERCHART Document Id: [id number] HING MANAGER Miscellaneous - Te Gonzales M.D. - 06/28/2012 12:16 PM CST Ambulatory Depart Summary [facility] [address] [address] Visit Information Name: GINOJEROD DAMIAN Visit Date: 06/28/2012 12:16:07 Attending Provider: TE GONZALES MD Primary Care Provider: PCP, VENU DAMIAN TILLMAN has been given the following list of medications: Your Medications It is important to take your medications as directed. Use a pill box or chart to help remind you to take your medications. Please let your doctor or nurse know if you have problems taking your medications. Medication/Strength Dose Route Frequency Indications/Special Instructions/Comments celecoxib (Celebrex 200 mg oral capsule) 200 [...] your provider for clarification. Additional Information: Source: [facility] IActive Document Id: [id number] HING MANAGER Miscellaneous - Te Gonzales M.D. - 06/28/2012 11:33 AM CST Return to Work Status Return to Work Status Entered On: 06/28/2012 11:34 TEACHING MANAGER Performed On: 06/28/2012 11:33 TEACHING MANAGER by TE GONZALES MD Return to Work Status Employer : [employer] Date/Time of Injury : 06/27/2012 13:00 TEACHING MANAGER Work Status Comment : limit to no left handed work TE GONZALES MD - 06/28/2012 11:33 TEACHING MANAGER Source: [facility] IActive Document Id: [id number] HING MANAGER Miscellaneous - Rose Ling R.N. - 06/28/2012 10:37 AM CST Adult User Acceptance Tester Intake/History Adult User Acceptance Tester Intake/History Entered On: 06/28/2012 10:40 TEACHING MANAGER Performed On: 06/28/2012 10:37 TEACHING MANAGER by ROSE LING pipeline systems operator Chief Complaint : Pt fell and while getting a glass of water for her mother and tripped over O2 tubing. Pt came in to the clinic and had a xray done on her left shoulder. Humeral head fracture Temperature Core : 36.3C(Converted to: 97.3DegF) (LOW) Systolic Blood Pressure : 130mmHg Diastolic Blood Pressure : 80mmHg NIBP Mean : 97mmHg ROSE LING RN - 06/28/2012 10:37 TEACHING MANAGER General Info Information Given By : Patient Preferred Communication Mode : Verbal Languages : Frisian ROSE LING RN - 06/28/2012 10:37 TEACHING MANAGER Subjective Pain Symptoms : No ROSE LING RN - 06/28/2012 10:37 TEACHING MANAGER FLACC Face FLACC : No particular expression or smile Legs FLACC : Normal position or relaxed Activity FLACC : Lying quietly, normal position, moves easily Cry FLACC : No cry, awake or asleep Consolabillity FLACC : Content, relaxed FLACC Pain Scale Score : 0 ROSE LING RN - 06/28/2012 10:37 TEACHING MANAGER Dependent Habits Tobacco Use/Currently Using : No Exposure to Tobacco Smoke : Care provider denies smoking in home Smoking Status : Never smoker ROSE LING RN - 06/28/2012 10:37 TEACHING MANAGER Caffeine Use Grid Caffeine Use : None ROSE LING RN - 06/28/2012 10:37 TEACHING MANAGER Recreational Drug Use Grid Drug Use : None ROSE LING RN - 06/28/2012 10:37 TEACHING MANAGER Allergy Allergies (Active) Ceftin Estimated Onset Date: Unspecified ; Reactions: hives ; Created By: MADDIE AGOSTO LPN; Reaction Status: Active ; Category: Drug ; Substance: Ceftin ; Type: Allergy ; Updated By: MADDIE AGOSTO LPN; Reviewed Date: 06/28/2012 10:36 TEACHING MANAGER Anesth/Transfusion Anesthesia/Transfusions : Prior anesthesia ROSE LING RN - 06/28/2012 10:37 TEACHING MANAGER ID Screen Drug Resistant Organism : No ROSE LING RN - 06/28/2012 10:37 TEACHING MANAGER Activity/Exercise Exercise Type : Walking Exercise Frequency : 2-3 times per week Duration : 15-30 minutes ROSE LING RN - 06/28/2012 10:37 TEACHING MANAGER Diabetes Intake Do You Have Diabetes : No ROSE LING RN - 06/28/2012 10:37 TEACHING MANAGER Source: [facility] IActive Document Id: [id number] HING MANAGER documented in this encounter Plan of Treatment Not on filedocumented as of this encounter Visit Diagnoses Not on filedocumented in this encounter
--- OUTSIDE RECORDS SUMMARY | 2022-05-04 10:22 | XMS_ITS | Encounter Summary ---
:1955 Author Organization [facility] Address [address] [place] [address] Care Team Providers Name Role Phone Unavailable Primary Care Provider Unavailable Encounter Details Date Type Department Care Team Description 07/05/2012 Hospital Encounter HX NO MAPPING Carlos Lawton, [...] How often do you attend mandaen or pentecostal More than 4 time s [...] slept in a nursing home (including now)? Sex Assigned at Date Recorded Female 05/11/2021 12:39 PM CDT documented as of this encounter Last Filed Vital Signs Vital Sign Reading Time Taken Comments Blood Pressure 130/86 07/05/2012 8:48 AM COMPOUNDER HELPER Pulse 68 07/05/2012 8:48 AM COMPOUNDER HELPER Temperature - - Respiratory Rate 16 07/05/2012 8:48 AM COMPOUNDER HELPER Oxygen Saturation - - Inhaled Oxygen Concentration [...] this encounter Consult Notes Carlos Lawton - 07/05/2012 8:29 AM CST [id number] IMPRESSION/REPORT/PLAN Ms. Tlilman is a 57-year-old female with a comminuted and mildly displaced left proximal humerus fracture. We talked about the extreme importance of activity modification and really taking it easy. Ithink she understands the importance of protecting things. If she has any questions, she was encouraged to call. Otherwise, she will follow-up once more in about 7-10 days time for one more set of x-rays of her shoulder to ensure things still look stable, and, of course, I again brought up the possibility of surgical intervention if felt necessary, but she would like to pursue more conservative measures at this point in time, which I felt was very reasonable. CHIEF COMPLAINT/REASON FOR VISIT Ms. Tillman is a pleasant 57-year-old female who sustained a fracture to her left proximal humeruswhich is comminuted and mildly displaced. This occurred about eight days ago and she is here today for follow-up. PHYSICAL EXAMINATION Repeat radiographs demonstrate no significant change in fracture alignment, and although things are comminuted the articular surface of the glenohumeral joint appears to be acceptable with only mild displacement. Carlos Lawton P.A.-C./hasmukh Electronically Signed By: CARLOS LAWTON PA-C On: 02/04/2013 08:19 AM Source: [facility] MHSDOLBEYNONRADSYS Document Id: [id number] documented in this encounter Miscellaneous Notes Miscellaneous - Carlos Lawton - 07/05/2012 9:21 AM CST Ambulatory Patient Summary [address] [address] Visit Information Name: COLLEEN TILLMAN [facility] Number: [id number] Current Date: 07/05/2012 09:21:36 Physicians Attending Provider: CARLOS LAWTON PA-C Primary [...] Upcoming Appointments Date Time Location Reason Provider 07/16/2012 15:45 [facility] Spec Clin follow up fracture Carlos Lawton PA-C Your Goals/Additional instructions: Source: [facility] POWERCHART Document Id: [id number] OUNDER HELPER Miscellaneous - Carlos Lawton - 07/05/2012 9:21 AM CST Ambulatory Depart Summary [facility] [address] [place] [address] Visit Information Name: COLLEEN TILLMAN [facility] Number: [id number] Visit Date: 07/05/2012 09:21:35 Attending Provider: CARLOS LAWTON PA-C Primary Care Provider: PCP, VENU COLLEEN TILLMAN has been given the following list [...] your provider for clarification. Additional Information: Source: [facility] POWERCHART Document Id: [id number] OUNDER HELPER Miscellaneous - Rose Ziegler R.N. - 07/05/2012 8:48 AM CST Adult Distribution Supervisor Intake/History Adult Distribution Supervisor Intake/History Entered On: 07/05/2012 8:51 COMPOUNDER HELPER Performed On: 07/05/2012 8:48 COMPOUNDER HELPER by ROSE ZIEGLER pediatric immunologist Chief Complaint : f/u left humerus fx, feels good Temperature Core : 36.8C(Converted to: 98.2DegF) Peripheral Pulse Rate : 68/min Respiratory Rate : 16/min Heart Rhythm : Regular Systolic Blood Pressure : 130mmHg Diastolic Blood Pressure : 86mmHg NIBP Mean : 101mmHg BP Location : Right upper extremity Blood Pressure Cuff Size : Regular ROSE ZIEGLER RN - 07/05/2012 8:48 COMPOUNDER HELPER General Info Information Given By : Patient Preferred Communication Mode : Verbal Languages : Kyrgyz ROSE ZIEGLER RN - 07/05/2012 8:48 COMPOUNDER HELPER Subjective Pain Symptoms : No ROSE ZIEGLER RN - 07/05/2012 8:48 COMPOUNDER HELPER Dependent Habits Tobacco Use/Currently Using : No Exposure to Tobacco Smoke : Care provider denies smoking in home Smoking Status : Never smoker ROSE ZIEGLER RN - 07/05/2012 8:48 COMPOUNDER HELPER Tobacco Use Grid Last Use : never ROSE ZIEGLER RN - 07/05/2012 8:48 COMPOUNDER HELPER Caffeine Use Grid Caffeine Use : None ROSE ZIEGLER RN - 07/05/2012 8:48 COMPOUNDER HELPER Recreational Drug Use Grid Drug Use : None ROSE ZIEGLER RN - 07/05/2012 8:48 COMPOUNDER HELPER Allergy Allergies (Active) Ceftin Estimated Onset Date: Unspecified ; Reactions: hives ; Created By: MADDIE AGOSTO LPN; Reaction Status: Active ; Category: Drug ; Substance: Ceftin ; Type: Allergy ; Updated By: MADDIE AGOSTO LPN; Reviewed Date: 07/05/2012 8:47 COMPOUNDER HELPER Source: [facility] POWERCHART Document Id: [id number] OUNDER HELPER documented in this encounter Plan of Treatment Not on filedocumented as of this encounter Visit Diagnoses Not on filedocumented in this encounter
--- OUTSIDE RECORDS SUMMARY | 2022-05-04 10:22 | XMS_ITS | Encounter Summary ---
:1955 Author Organization [facility] Address [address] [place] [address] Care Team Providers Name Role Phone Unavailable Primary Care Provider Unavailable Encounter Details Date Type Department Care Team Description 08/09/2012 Hospital Encounter HX [facility] Elena Gilman, FABIANA, C.N.P., D. N.P. [address], [place] [phone] (Wo rk) Social History Tobacco Use Types [...] How often do you attend faith or temple More than 4 time s per year [...] per tablet documented as of this encounter H&P Notes Ana De La Cruz D.N.P., C.N.P. - 08/09/2012 8:36 AM CST [id number] CHIEF COMPLAINT/REASON FOR VISIT Multiple issues. HISTORY OF PRESENT ILLNESS The patient is a 57-year-old female who presents to the clinic to establish care. She currently indicates that she has multiple issues. She does report that she does have a history of high cholesterolsand also osteopenia and requires routine blood work and a redo on her bone density scan. She also indicates that she does have a history of some psoriasis which is well controlled on her hands using more of an herbal topical therapy. She has been having some mildly elevated blood pressure and indicated that this is concerning for her and she wanted to come in for further evaluation. She does indicatethat she does need to lose weight and do a better job of taking care of her overall health. She also indicates that at one point in time she developed an upper respiratory like infection and since thattime every time she gets sick it seems as though illnesses affect her breathing more often in which she will have some wheezing. She wonders if this is of any concern. She did recently sustained a fallin which she developed a little bit of some paralysis to the left lower chin area. She indicates that she has followed up with physical therapy status post a humeral head fracture but reports that she has not had any physical therapy or occupational therapy for her facial injury. She otherwise does indicate that she does eat 3 meals per day and tries to incorporate more of a balanced diet into her routine but does indicate also that she is aware that she could be doing a better job. She also currently has not been participating in any cardiovascular exercise. She does go to her dentist every 6 months and does indicate that she is going to be coming up due for an eye examination. She otherwise denies having any other further concerns or issues at this time. The patient indicates her last Pap was last year, indicated it was normal, and states that she does not have any history of abnormal Pap. PAST MEDICAL/SURGICAL HISTORY MEDICAL: Arthroscopy of the right shoulder status post injury June of 2012. Head injury in 1973. Hyperlipidemia since 1973. Osteopenia since 2006. Psoriasis. SURGICAL: Left ankle surgery times 2 in 2001. Colonoscopy in January of 2011 next due in 2020. De Quervain's surgery in 1997. Trigger finger release in 1997. Tonsillectomy and adenoidectomy in 1959. FAMILY HISTORY Mother with a history of hypertension, hypothyroidism, osteoporosis, dementia and a head injury, also a history of breast cancer. Father is at 87 years of age as he in his sleep and was known to have atrial fibrillation and coronary artery disease and also prostate cancer. The patient does not have any siblings. No other medical history she is aware of. SOCIAL HISTORY The patient is presently with 2 adopted children. She currently denies any alcohol or tobacco usage. ALLERGIES Ceftin. CURRENT MEDICATIONS Tylenol wywh-coe-xxndtud as directed on package as needed. Aspirin 81 mg by mouth daily. Ibuprofen [id number]-lzpvylz as directed on package as needed. Melaleuca multivitamin by mouth daily. Fish oil by mouth daily. Celebrex 200 mg by mouth daily. PHYSICAL EXAMINATION GENERAL: The patient is alert and oriented x3. PSYCHIATRIC: The patient's speech is focused and well directed. Affect is appropriate. HEAD: Normocephalic, atraumatic. FACE: The patient is noted to have a horizontal scar upon the face just to the left lateral chin area in which her left lateral corner of the mouth pulls down, and when smiling continues to stay down. I do not appreciate any loss of her labial fold of the nose. When smiling she does not have symmetry of the left side of face compared to the right. The patient is able to puff her cheeks open. PUPILS: Pupils equal, round, and reactive to light and accommodation. OROPHARYNX: [place] and moist. TMs: Bilateral tympanic membranes are clear. Bony landmarks noted and within normal limits. NARES: Patent. No erythema or drainage noted. NECK: No anterior or posterior lymphadenopathy. No thyromegaly noted. HEART: Regular. S1, S2. No murmurs, rubs or gallops noted. LUNGS: Clear to auscultation. No prolonged expiratory phases, wheezing, rales or rhonchi noted. ABDOMEN: Bowel sounds positive in all four quadrants. No hepatosplenomegaly noted. BREASTS: Nontender. No masses or nodules palpated. No axillary lymphadenopathy noted. No nipple discharge noted. : Pap examination was deferred. Bimanual examination was unremarkable though patient is noted to have a vaginal stricture on examination. Otherwise the pelvic examination was unremarkable for cervical motion tenderness. PULSES: Radial, pedal, and tibial pulses +2/4. SKIN: Without unusual rashes or suspicious lesions. EXTREMITIES: Equally strong and intact. No lower extremity edema noted. NEUROLOGIC: Upper and lower deep tendon reflexes are brisk at +2. Cranial nerves 2-12 are grossly intact and symmetric. The patient ambulates with a steady gait. LABORATORY: WBC 5.2. Hemoglobin 13.7. Differential is unremarkable. Sedimentation rate 29. Sodium 135. Potassium 3.8. Glucose 87. Creatinine 0.59. AST 24. ALT 31. Total cholesterol 248. Triglycerides 67. HDL 67. Lipoprotein A 5. LDL 167. CRP 0.48. Urine is yellow and clear and otherwise fairly unremark able. No hematuria noted. TSH 1.83. Bone density scan shows notable osteopenia. Spirometry was performed in which FEV-1 was 109% of predicted value and a normal spirogram was noted. Electrocardiogram was obtained in which normal sinus rhythm was noted. Ventricular rate at 74 beats per minute, UT interval 156 ms, QRS duration 80 ms, and QT 374 ms. IMPRESSION/REPORT/PLAN 1. Hyperlipidemia. 2. Osteopenia. 3. Routine medical examination. 4. Psoriasis. 5. Hypertension. 6. History of wheezing. 7. Facial injury. PLAN: 1. Hyperlipidemia: Presently at this time the patient is given a 3-month duration of time to help encourage her to lose weight and make some diet and lifestyle modifications. We will plan on recheckingher cholesterols then in 3 months in addition to checking her weight and blood pressure. The patientfelt more comfortable with doing this prior to making any other aggressive changes to her medicationregimen. 2. Osteopenia: Presently at this time we will continue to encourage the patient to take her calcium 3 times a day as this was discussed at length with the patient, or at least doing an sjyz-pnj-sqifihxTkukdame extended release 1 tablet by mouth daily. We will plan on rechecking her bone density scan in 2 years duration. The patient felt comfortable with this treatment plan. She was also encouraged to engage in weightbearing activity. 3. Routine medical examination: Presently at this time, we will plan on having the patient follow-upon her yearly mammogram when next due, and also we will repeat her Pap in this next year based upon ensuring her Pap was last normal in which she states it was through [facility] in [place]. I did discuss the vaginal dilators with the patient given her notable vaginal stricture that was noted on examination. This was discussed at length with the patient as she feels comfortable attempting to use the vaginal dilators to help with this issue. 4. Psoriasis: Presently the patient's psoriasis is under adequate control. Her sedimentation rate and CRP are unremarkable and I have no further concerns regarding this. I did indicate though if further medical treatment is warranted to contact me. The patient felt comfortable with this treatment plan. 5. Wheezing: I was able to reassure the patient that her spirogram was unremarkable. Her ECG also was unremarkable. We will plan on continuing to monitor her symptoms as she may still have a reactive airway disease that is more so exacerbated with illness. These findings were discussed with the patient . She will continue monitoring this. 6. Facial injury with some paralysis: Presently at this time the patient is encouraged to follow-up with Orthopedics as a referral has been made. We will plan on having her establish care with them to help with strengthening and range of motion of the face. The patient felt comfortable with this treatment plan. The patient otherwise denied having further questions. The patient otherwise stated understanding this plan as she denied having any further questions. The patient ambulated out of the clinicin no acute distress. Patient Education Ready to learn No apparent learning barriers were identified Learning preferences include listening Explained diagnosis and treatment plan Patient/Child/Caregiver expressed understanding of the content Ana De La Cruz D.N.P./Kamar/hasmukh Electronically Signed By: ANA DE LA CRUZ DNP, FNP On: 08/12/2012 12:59 PM Source: [facility] MHSDOLBEYNONRADSYS Document Id: [id number] RITY RISK ANALYST documented in this encounter Miscellaneous Notes Miscellaneous - Ana De La Cruz D.N.P., C.N.P. - 08/09/2012 2:48 PM SECURITY RISK ANALYST Results Notification Document Contains Addenda Addendum by MADDIE AGOSTO LPN on 12 August 2012 09:38:33 SECURITY RISK ANALYST Copy of bone density sent to patient. From: ANA DE LA CRUZ DNP, FNP To: MADDIE AGOSTO LPN Sent: 08/09/2012 14:48:54 SECURITY RISK ANALYST ! Show up: 08/09/2012 20:48:54 [facility] Subject: Results Notification Actions: Note to Nurse Source: [facility] POWERCHART Document Id: [id number] documented in this encounter Plan of Treatment Not on filedocumented as of this encounter Visit Diagnoses Not on filedocumented in this encounter
--- OUTSIDE RECORDS SUMMARY | 2022-05-04 10:22 | XMS_ITS | Encounter Summary ---
:1955 Author Organization [facility] Address [address] [place] [address] Care Team Providers Name Role Phone Unavailable Primary Care Provider Unavailable Encounter Details Date Type Department Care Team Description 08/20/2011 Hospital Encounter HX NO MAPPING Provider, Historical Social History Tobacco Use Types Packs/Day Years [...] How often do you attend faith or anabaptist More than 4 time s per year [...] place to sleep or slept in a fpc (including now)? Sex Assigned at Date Recorded Female 05/11/2021 12:39 PM CDT documented as of this encounter Medications at Time of Discharge Medication Sig Dispensed Refills Start Date End Date calcium Take 2 tablets by 0 05/26/2002 022 carbonate-vitamin D3 500 mouth daily. mg(1,250mg) -125 unit per tablet documented as of this encounter Miscellaneous Notes Miscellaneous - Conversion, Historical Provider Ser - 08/20/2011 12:00 AM SCIENTIFIC MANAGER [id number] 08/14/2012 - IOD processed records. [facility] Document Id: [id number] documented in this encounter Plan of Treatment Not on filedocumented as of this encounter Visit Diagnoses Not on filedocumented in this encounter
--- OUTSIDE RECORDS SUMMARY | 2022-05-04 10:22 | XMS_ITS | Encounter Summary ---
:1955 Author Organization [facility] Address [address] [place] [address] Care Team Providers Name Role Phone Unavailable Primary Care Provider Unavailable Encounter Details Date Type Department Care Team Description 06/28/2012 Hospital Encounter HX NO MAPPING Gilma Gonzales M.D. [address] [place] [phone] (Wo rk) Social History Tobacco [...] or relatives? How often do you attend hindu or oriental orthodox More than 4 time s per year 09/17/2021 services? Do you belong to any clubs or organizations Yes 09/17/2021 such as hindu groups, unions, fraternal or athletic groups, or [...]
--- OUTSIDE RECORDS SUMMARY | 2022-05-04 10:22 | XMS_ITS | Encounter Summary ---
:1955 Author Organization [facility] Address [address] [place] [address] Care Team Providers Name Role Phone Unavailable Primary Care Provider Unavailable Encounter Details Date Type Department Care Team Description 10/08/2012 Hospital Encounter HX NO MAPPING Carlos Lawton, [...] How often do you attend nondenominational or mandaeism More than 4 time s [...] Sign Reading Time Taken Comments Blood Pressure 116/70 10/08/2012 7:58 AM DIRECTOR GLOBAL DEVELOPMENT Pulse 80 10/08/2012 7:58 AM DIRECTOR GLOBAL DEVELOPMENT Temperature - - Respiratory Rate 16 10/08/2012 7:58 AM DIRECTOR GLOBAL DEVELOPMENT Oxygen Saturation - - Inhaled Oxygen Concentration [...] this encounter Consult Notes Carlos Lawton - 10/08/2012 7:52 AM CST [id number] CHIEF COMPLAINT/REASON FOR VISIT Ms. Tillman is a pleasant 57-year-old female who is about three months out from a left proximal humerus fracture. HISTORY OF PRESENT ILLNESS At this point in time, the patient is doing fairly well. She has a few questions but overall has done fairly well with therapy. I think her positive attitude helps out quite a bit. PHYSICAL EXAM On examination, passive forward flexion is at about a little over 100 degrees, passive abduction is around 80 degrees, strength is 4+/5 with internal and external rotation and 4/5 with supraspinatus testing. Passive external rotation is nearly symmetric. IMPRESSION/REPORT/PLAN Ms. Tillman is a 57-year-old female who has a displaced proximal humerus fracture which is healingup fairly well. She is improving clinically and is satisfied with where she is at thus far. If she has any questions or concerns, she was encouraged to call. Otherwise, she was told to still work on str engthening and range of motion activities and will see us back essentially on an as needed basis because I think things are fairly stable, but if there are any questions whatsoever, she will see us back for one more set of x-rays to ensure that things look stable and solid. Carlos Lawton P.A.-C./carlene DOCID: [id number] Electronically Signed By: CARLOS LAWTON PA-C On: 10/22/2012 02:41 PM Source: [facility] MHSDOLBEYNONRADSYS Document Id: [id number] CTOR GLOBAL DEVELOPMENT documented in this encounter Miscellaneous Notes Miscellaneous - Carlos Lawton - 10/08/2012 12:13 PM CST Ambulatory Patient Summary [address] [address] Visit Information Name: COLLEEN TILLMAN [facility] Number: [id number] Current Date: 10/08/2012 12:13:57 Physicians Attending Provider: CARLOS LAWTON PA-C Primary Care Provider: CHRISSY DE LA CRUZ DNP, FOUNDRY METALLURGIST Your Medications Here is a list of [...] Problem Status Onset Comments Osteopenia Active 08/20/2006 Arthroscopy of Shoulder Active 06/27/2012 Hyperlipidemia Active 1974 Psoriasis Active 08/08/2012 Head Injury Active 1974 Your Upcoming Appointments Date Time Location Reason Provider No Appointments found Your Goals/Additional instructions: Source: [facility] POWERCHART Document Id: [id number] CTOR GLOBAL DEVELOPMENT Miscellaneous - Carlos Lawton - 10/08/2012 12:13 PM CST Ambulatory Depart Summary [facility] [address] [address] Visit Information Name: GINOJEROD COLLEEN L CLARY [facility] Number: [id number] Visit Date: 10/08/2012 12:13:56 Attending Provider: CARLOS LAWTON PA-C Primary Care Provider: CHRISSY DE LA CRUZ DNP, FOUNDRY METALLURGIST COLLEEN TILLMANUSON has been given the following list of [...] your provider for clarification. Additional Information: Source: [facility] POWERCHART Document Id: [id number] CTOR GLOBAL DEVELOPMENT Miscellaneous - Rose Ziegler R.N. - 10/08/2012 7:58 AM CST Adult Nut Process Helper Intake/History Adult Nut Process Helper Intake/History Entered On: 10/08/2012 8:03 DIRECTOR GLOBAL DEVELOPMENT Performed On: 10/08/2012 7:58 DIRECTOR GLOBAL DEVELOPMENT by ROSE ZIEGLER biztalk architect Chief Complaint : f/u lt humerus fx, no concerns Temperature Core : 35.4C(Converted to: 95.7DegF) (LOW) Peripheral Pulse Rate : 80/min Respiratory Rate : 16/min Heart Rhythm : Regular Systolic Blood Pressure : 116mmHg Diastolic Blood Pressure : 70mmHg NIBP Mean : 85mmHg BP Location : Right upper extremity Blood Pressure Cuff Size : Large SpO2 : 98% ROSE ZIEGLER RN - 10/08/2012 7:58 DIRECTOR GLOBAL DEVELOPMENT General Info Information Given By : Patient Preferred Communication Mode : Verbal Languages : Austrian ROSE ZIEGLER RN - 10/08/2012 7:58 DIRECTOR GLOBAL DEVELOPMENT Subjective Pain Symptoms : No ROSE ZIEGLER RN - 10/08/2012 7:58 DIRECTOR GLOBAL DEVELOPMENT Dependent Habits Tobacco Use/Currently Using : No Exposure to Tobacco Smoke : Care provider denies smoking in home Smoking Status : Never smoker ROSE ZIEGLER RN - 10/08/2012 7:58 DIRECTOR GLOBAL DEVELOPMENT Tobacco Use Grid Type : Cigarettes Last Use : never ROSE ZIEGLER RN - 10/08/2012 7:58 DIRECTOR GLOBAL DEVELOPMENT Caffeine Use Grid Caffeine Use : None ROSE ZIEGLER RN - 10/08/2012 7:58 DIRECTOR GLOBAL DEVELOPMENT Recreational Drug Use Grid Drug Use : None ROSE ZIEGLER RN - 10/08/2012 7:58 DIRECTOR GLOBAL DEVELOPMENT Allergy Allergies (Active) Ceftin Estimated Onset Date: Unspecified ; Reactions: hives ; Created By: MADDIE AGOSTO LPN; Reaction Status: Active ; Category: Drug ; Substance: Ceftin ; Type: Allergy ; Updated By: MADDIE AGOSTO LPN; Reviewed Date: 10/08/2012 7:58 DIRECTOR GLOBAL DEVELOPMENT Source: [facility] POWERCHART Document Id: [id number] CTOR GLOBAL DEVELOPMENT documented in this encounter Plan of Treatment Not on filedocumented as of this encounter Visit Diagnoses Not on filedocumented in this encounter
--- OUTSIDE RECORDS SUMMARY | 2022-05-04 10:22 | XMS_ITS | Encounter Summary ---
:1955 Author Organization [facility] Address [address] [place] [address] Care Team Providers Name Role Phone Unavailable Primary Care Provider Unavailable Encounter Details Date Type Department Care Team Description 01/04/2011 Hospital Encounter HX [facility] Yulissa Lopez, APR N, C.N.P. [address] [place], [place] [phone] (Wo rk) Social History [...] How often do you attend voodoo or methodist More than 4 time s [...]
--- OUTSIDE RECORDS SUMMARY | 2022-05-04 10:22 | XMS_ITS | Encounter Summary ---
:1955 Author Organization [facility] Address [address] [place] [address] Care Team Providers Name Role Phone Unavailable Primary Care Provider Unavailable Encounter Details Date Type Department Care Team Description 01/26/2011 Hospital Encounter HX NO MAPPING Abhi Valle am, M.D. [address] [place] [address] [phone] (Wo rk) Social History Tobacco Use [...] How often do you attend taoism or quaker More than 4 time s [...]
--- OUTSIDE RECORDS SUMMARY | 2022-05-04 10:22 | XMS_ITS | Encounter Summary ---
:1955 Author Organization [facility] Address [address] [place] [address] Care Team Providers Name Role Phone Unavailable Primary Care Provider Unavailable Encounter Details Date Type Department Care Team Description 01/13/2011 Hospital Encounter HX NO MAPPING Yulissa Finn APRN, C.N.P. [address] [phone] (Wo rk) Social History Tobacco Use [...] or relatives? How often do you attend methodist or christian More than 4 time s per year 09/17/2021 services? Do you belong to any clubs or organizations Yes 09/17/2021 such as methodist groups, unions, fraternal or athletic groups, or [...]
--- OUTSIDE RECORDS SUMMARY | 2022-05-04 10:22 | XMS_ITS | Encounter Summary ---
:1955 Author Organization [facility] Address [address] [place] [address] Care Team Providers Name Role Phone Unavailable Primary Care Provider Unavailable Encounter Details Date Type Department Care Team Description 09/03/2012 Hospital Encounter HX NO MAPPING Carlos Lawton, [...] or relatives? How often do you attend gnosticism or muslim More than 4 time s per year 09/17/2021 services? Do you belong to any clubs or organizations Yes 09/17/2021 such as gnosticism groups, unions, fraternal or athletic groups, or [...] Sign Reading Time Taken Comments Blood Pressure 128/62 09/03/2012 2:40 PM MANDARIN SPEAKING NANNY Pulse - - Temperature - - Respiratory Rate 20 09/03/2012 2:40 PM MANDARIN SPEAKING NANNY Oxygen Saturation - - Inhaled Oxygen Concentration [...] this encounter Consult Notes Carlos Lawton - 09/03/2012 2:33 PM CST [id number] HISTORY OF PRESENT ILLNESS This pleasant 57-year-old female is over 2 months out from a left proximal humerus fracture which was comminuted and displaced. At this point in time, the patient is doing fairly well. She continues towork with therapy and she does not have too many questions. PHYSICAL EXAMINATION EXTREMITIES: her forward flexion is a little less than 90 degrees. Actively she does have some scapular thoracic compensation as well at a little bit less than 80 degrees in regards to abduction. External rotation strength is 4+/5. Internal rotation strength is 4+/5. Supraspinatus strength was difficult to test today. Passively I can get her better than her active motion. IMAGING: no radiographs were felt necessary because she is so far out. IMPRESSION/REPORT/PLAN This 57-year-old female is over 2 months out from sustaining a proximal humerus fracture which was comminuted and displaced. At this point in time, the patient is doing fairly well. We talked about theimportance of continuing to work hard on therapy. If she has any questions or concerns, she is encouraged to call, otherwise she will follow up in 4-5 weeks to ensure things are going well. If there are any concerns at all, I think it would be nice to have one more set of plain x-rays. Though she is doing splendid and, again, I do not think they are absolutely necessary. Carlos Lawton P.A.-C./ines Electronically Signed By: CARLOS LAWTON PA-C On: 09/17/2012 02:53 PM Source: [facility] [id number] Document Id: [id number] ARIN SPEAKING NANNY documented in this encounter Miscellaneous Notes Miscellaneous - Carlos Lawton - 09/03/2012 4:30 PM CST Ambulatory Patient Summary [address] [address] Visit Information Name: COLLEEN TILLMAN [facility] Number: [id number] Current Date: 09/03/2012 16:30:07 Physicians Attending Provider: CARLOS LAWTON PA-C Primary Care Provider: CHRISSY DE LA CRUZ [facility], MEDICAL RECORDS COORDINATOR Your Medications Here is a list of [...] Upcoming Appointments Date Time Location Reason Provider 09/12/2012 08:30 [facility] PT/OT noheliaEdgardo Luther 10/08/2012 08:00 [facility] follow up visit Carlos Lawton PA-C Your Goals/Additional instructions: Source: [facility] POWERCHART Document Id: [id number] ARIN SPEAKING NANNY Miscellaneous - Carlos Lawton - 09/03/2012 4:30 PM CST Ambulatory Depart Summary [place] [facility] [address] [address] Visit Information Name: COLLEEN TILLMAN [facility] Number: [id number] Visit Date: 09/03/2012 16:30:07 Attending Provider: CARLOS LAWTON PA-C Primary Care Provider: CHRISSY DE LA CRUZ DNP, MEDICAL RECORDS COORDINATOR COLLEEN TILLMAN has been given the following [...] your provider for clarification. Additional Information: Source: [facility] POWERCHART Document Id: [id number] ARIN SPEAKING NANNY Miscellaneous - Tung De Jesus R.N. - 09/03/2012 2:40 PM MANDARIN SPEAKING NANNY Adult Loop Tender Intake/History Adult Loop Tender Intake/History Entered On: 09/03/2012 14:43 MANDARIN SPEAKING NANNY Performed On: 09/03/2012 14:40 MANDARIN SPEAKING NANNY by TUNG DE JESUS resource analyst Chief Complaint : Here for follow up of left proximal humerus fracture. She is here to have her range of motion checked. Temperature Core : 36.5C(Converted to: 97.7DegF) Respiratory Rate : 20/min Systolic Blood Pressure : 128mmHg Diastolic Blood Pressure : 62mmHg NIBP Mean : 84mmHg TUNG DE JESUS RN - 09/03/2012 14:40 MANDARIN SPEAKING NANNY General Info Information Given By : Patient Preferred Communication Mode : Verbal Languages : Occitan TUNG DE JESUS RN - 09/03/2012 14:40 MANDARIN SPEAKING NANNY Subjective Pain Symptoms : No TUNG DE JESUS RN - 09/03/2012 14:40 MANDARIN SPEAKING NANNY Dependent Habits Tobacco Use/Currently Using : No Tobacco Use/Last 12 months : No Exposure to Tobacco Smoke : Care provider denies smoking in home Smoking Status : Never smoker TUNG DE JESUS RN - 09/03/2012 14:40 MANDARIN SPEAKING NANNY Tobacco Use Grid Type : Cigarettes Last Use : never TUNG DE JESUS RN - 09/03/2012 14:40 MANDARIN SPEAKING NANNY Caffeine Use Grid Caffeine Use : None TUNG DE JESUS RN - 09/03/2012 14:40 MANDARIN SPEAKING NANNY Recreational Drug Use Grid Drug Use : None TUNG DE JESUS RN - 09/03/2012 14:40 MANDARIN SPEAKING NANNY Allergy Allergies (Active) Ceftin Estimated Onset Date: Unspecified ; Reactions: hives ; Created By: MADDIE AGOSTO LPN; Reaction Status: Active ; Category: Drug ; Substance: Ceftin ; Type: Allergy ; Updated By: MADDIE AGOSTO LPN; Reviewed Date: 09/03/2012 14:37 MANDARIN SPEAKING NANNY Source: [facility] POWERCHART Document Id: [id number] ARIN SPEAKING NANNY documented in this encounter Plan of Treatment Not on filedocumented as of this encounter Visit Diagnoses Not on filedocumented in this encounter
--- OUTSIDE RECORDS SUMMARY | 2022-05-04 10:22 | XMS_ITS | Encounter Summary ---
:1955 Author Organization [facility] Address [address] [place] [address] Care Team Providers Name Role Phone Unavailable Primary Care Provider Unavailable Encounter Details Date Type Department Care Team Description 08/08/2012 Hospital Encounter HX [facility] Chrissy De La Cruz, FABIANA, C.N.P., D. N.P. [address] [place] [address] (Wo rk) Social History Tobacco Use Types [...] or relatives? How often do you attend druze or cheondoism More than 4 time s per year 09/17/2021 services? Do you belong to any clubs or organizations Yes 09/17/2021 such as druze groups, unions, fraternal or athletic groups, or [...] Sign Reading Time Taken Comments Blood Pressure 130/69 08/08/2012 8:37 AM SAND MIXER Pulse 88 08/08/2012 8:37 AM SAND MIXER Temperature - - Respiratory Rate 16 08/08/2012 8:37 AM SAND MIXER Oxygen Saturation - - Inhaled Oxygen Concentration - - Weight 91.8 kg (202 lb 6.1 oz) 08/08/2012 8:37 AM SAND MIXER Height 156.5 cm (5' 1.61) 08/08/2012 8:37 AM SAND MIXER Body Mass Index 37.48 08/08/2012 8:37 AM SAND MIXER documented in this encounter Medications at Time [...] calcium Take 2 tablets by 0 05/26/2002 02/14/2 022 carbonate-vitamin D3 500 mouth daily. mg(1,250mg) -125 unit per tablet documented as of this encounter Miscellaneous Notes Miscellaneous - Chrissy De La Cruz, D.N.P., C.N.P. - 08/08/2012 3:12 PM SAND MIXER Ambulatory Patient Summary [address] [address] Visit Information Name: DAMIAN TILLMAN [facility] Number: [id number] Current Date: 08/08/2012 15:12:03 Physicians Attending Provider: CHRISSY DE LA CRUZ DNP, FNP Primary Care Provider: CHRISSY DE LA CRUZ DNP, FNP Your Medications Here is a list of [...] for Pain / Fever Take with food Mis Prescription (Melaluca vitamins) 1 packet Oral once [...] Upcoming Appointments Date Time Location Reason Provider 08/09/2012 08:00 [facility] PT/OT humerous FX Melisa Edgardo 08/09/2012 08:30 [facility] Mammo osteopenia 08/15/2012 08:45 [facility] PT/OT left sided facial injury Arabella Caro 09/03/2012 14:30 [facility] Clin Follow up Donvaon REED, Cayetano Vela Your Goals/Additional instructions: Source: [facility] POWERCHART Document Id: [id number] MIXER Miscellaneous - Chrissy De La Cruz, D.N.P., C.N.P. - 08/08/2012 3:12 PM SAND MIXER Ambulatory Depart Summary [id number] [place] [address] Visit Information Name: LAYNEDAMIAN Yani MEANS [facility] Number: [id number] Visit Date: 08/08/2012 15:12:03 Attending Provider: CHRISSY DE LA CRUZ DNP, FNP Primary Care Provider: CHRISSY DE LA CRUZ DNP, FNP DAMIAN TILLMAN CLARY has been given the following list of [...] for Pain / Fever Take with food [facility] Prescription (Melaluca vitamins) 1 packet Oral once a day omega-3 polyunsaturated fatty acids (Fish Oil oral capsule) 2 cap(s) Oral once a day aspirin (aspirin 81 mg oral tablet) 81 mg Oral once a day Attention: If you have any medications at home that are not on this list, DO NOT take them until youcontact your provider for clarification. Additional Information: Source: [facility] POWERCHART Document Id: [id number] MIXER Miscellaneous - Chrissy De La Cruz D.N.P., C.N.P. - 08/08/2012 3:06 PM SAND MIXER Results Notification Document Contains Addenda Addendum by MADDIE AGOSTO LPN on 08 August 2012 15:56:52 SAND MIXER Copy of labs sent to patient. From: CHRISSY DE LA CRUZ DNP, FNP To: MADDIE AGOSTO LPN Sent: 08/08/2012 15:06:06 SAND MIXER ! Show up: 08/08/2012 21:06:06 [facility] Subject: Results Notification Actions: Note to Nurse Source: [facility] POWERCHART Document Id: [id number] Electronically signed by Conversion, [facility] Manager Parking [phone] at 01/20/2017 3:57 PM CDT Miscellaneous - Chrissy De La Cruz D.N.P., C.N.P. - 08/08/2012 3:04 PM SAND MIXER Results Notification Document Contains Addenda Addendum by MADDIE AGOSTO LPN on 08 August 2012 15:56:36 SAND MIXER Copy mailed to patient. From: CHRISSY DE LA CRUZ DNP, ROUND BONER To: MADDIE AGOSTO LPN Sent: 08/08/2012 15:04:47 SAND MIXER ! Show up: 08/08/2012 21:04:47 [facility] Subject: Results Notification Actions: Note to Nurse Source: [facility] POWERCHART Document Id: [id number] Electronically signed by Conversion, [facility] Manager Parking [phone] at 01/20/2017 3:57 PM CDT Miscellaneous - Donavan Alba LNaomiPNaomiN. - 08/08/2012 8:37 AM CST Adult Electronics Engineer Intake/History Adult Electronics Engineer Intake/History Entered On: 08/08/2012 8:42 SAND MIXER Performed On: 08/08/2012 8:37 SAND MIXER by DONAVAN ALBA LPN Intake Chief Complaint : here for PE and establish as primary. Ankush done in [place] in 10/29, pap done in 2010 in [place]. hx of left shoulder pain. Check left side of lower lip area after recent fall/injury Temperature Core : 36.8C(Converted to: 98.2DegF) Peripheral Pulse Rate : 88/min Respiratory Rate : 16/min Heart Rhythm : Regular Systolic Blood Pressure : 130mmHg Diastolic Blood Pressure : 69mmHg NIBP Mean : 89mmHg BP Location : Right upper extremity Blood Pressure Cuff Size : Large Height : 156.5cm(Converted to: 5ft 2inch(es), 61.61inch(es)) Actual Weight : 91.8kg(Converted to: 202lb 6oz) Weight Source : Standing scale Dosing Weight Clinic : 91.80kg Clinic BSA : 2.00 Body Mass Index : 37.48kg/m2 DONAVAN ALBA LPN - 08/08/2012 8:37 SAND MIXER Subjective Pain Symptoms : Yes DONAVAN ALBA LPN - 08/08/2012 8:37 SAND MIXER Pain Pain Assessment Grid Pain 1 Location : Shoulder Laterality : Left Intensity : 2 DONAVAN ALBA LPN - 08/08/2012 8:37 SAND MIXER Dependent Habits Tobacco Use/Currently Using : No Exposure to Tobacco Smoke : Care provider denies smoking in home Smoking Status : Never smoker DONAVAN ALBA LPN - 08/08/2012 8:37 SAND MIXER Tobacco Use Grid Last Use : never DONAVAN ALBA LPN - 08/08/2012 8:37 SAND MIXER Alcohol Use : No DONAVAN ALBA LPN - 08/08/2012 8:37 SAND MIXER Caffeine Use Grid Caffeine Use : None DONAVAN ALBA LPN - 08/08/2012 8:37 SAND MIXER Recreational Drug Use Grid Drug Use : None DONAVAN ALBA LPN - 08/08/2012 8:37 SAND MIXER Allergy Allergies (Active) Ceftin Estimated Onset Date: Unspecified ; Reactions: hives ; Created By: MADDIE AGOSTO LPN; Reaction Status: Active ; Category: Drug ; Substance: Ceftin ; Type: Allergy ; Updated By: MADDIE AGOSTO LPN; Reviewed Date: 08/08/2012 8:34 SAND MIXER Source: [facility] POWERCHART Document Id: [id number] MIXER Miscellaneous - Donavan Alba L.P.NNaomi - 08/08/2012 8:36 AM CST Meaningful Use Influenza Exclusion Meaningful Use Influenza Exclusion Entered On: 08/08/2012 8:36 SAND MIXER Performed On: 08/08/2012 8:36 SAND MIXER by ASLESON, DONAVAN J LAMP ASSEMBLER Influenza Vaccine Exclusion Influenza Vaccine Exclusion : Patient declined DONAVAN ALBA LAMP ASSEMBLER - 08/08/2012 8:36 SAND MIXER Source: [facility] POWERCHART Document Id: [id number] MIXER documented in this encounter Plan of Treatment Not on filedocumented as of this encounter Procedures Procedure Name Priority Date/Time Associated Comments Diagnosis URINALYSIS, ROUTINE Routine 08/08/2012 9:44 AM Re sults for this SAND MIXER procedure are i n the results section. URINE MICROSCOPIC Routine 08/08/2012 9:44 AM Resu lts for this SAND MIXER procedure are i n the results section. LIPID PANEL, S Routine 08/08/2012 9:41 AM Results for this SAND MIXER procedure are i n the results section. AUTOMATED Routine 08/08/2012 9:41 AM Results f or this DIFFERENTIAL, B SAND MIXER procedure ar e in the results section. LIPOPROTEIN (A), S/P Routine 08/08/2012 9:41 AM R esults for this SAND MIXER procedure are i n the results section. SEDIMENTATION RATE, B Routine 08/08/2012 9:41 AM Results for this SAND MIXER procedure are i n the results section. CBC WITH DIFFERENTIAL, Routine 08/08/2012 9:41 AM Results for this B SAND MIXER procedure are i n the results section. C-REACTIVE PROTEIN Routine 08/08/2012 9:41 AM Res ults for this (CRP), S/P SAND MIXER procedure are i n the results section. THYROID-STIMULATING Routine 08/08/2012 9:41 AM Re sults for this HORMONE-SENSITIVE SAND MIXER procedure are in (S-TSH) the results section. COMPREHENSIVE Routine 08/08/2012 9:41 AM Results for this METABOLIC PANEL, S/P SAND MIXER procedu re are in the results section. documented in this encounter Results Urine Microscopic (08/08/2012 9:44 AM SAND MIXER) [facility] Method Time Signature HXUr WBC 0-2 0 - 2 POWERCHART Red Blood Cell None Seen 0 - 2 POWERCHART Clump, Urine HXUr Bacteria Moderate POWERCHART HXUr Epithelial Many POWERCHART Comment: Squamous. [facility] 08/08/2012 10:09 Comment Specimen not suitable for culture. [facility] 08/08/2012 10:10 POWERCHART Specimen Anatomical Collection Method Collection Time Receive d Time (Source) Location / / Volume Laterality Urine 08/08/2012 9:44 AM 2 9:44 SAND MIXER AM SAND MIXER Chrissy L Sunday De La Cruz APRN.N.P., Loan.N.P. LAB URINE PARAM LEVI Performing Organization Address [facility] Code Phon e Number POWERCHART Urinalysis, Routine (08/08/2012 9:44 AM SAND MIXER) [facility] Method Time Signature HXUr Color Yellow POWERCHART Appearance Slightly POWERCHART Cloudy Glucose Negative POWERCHART HXBILIRUBIN Negative POWERCHART Ketones, QL(U) Negative POWERCHART Specific 1.020 1.000 - POWERCHART [place], POCT, U 1.030 pH, POCT, Urine 7.0 5.0 - 8.0 POWERCHART Protein, Ur, Dip Negative POWERCHART Urobilinogen 0.2 POWERCHART HXNITRITE Negative POWERCHART HXBLOOD Negative POWERCHART Leukocyte Trace POWERCHART Esterase Source Clean Void POWERCHART Urine Specimen (Source) Anatomical Collection Method Collection Time Re ceived Time Location / / Volume Laterality Urine 08/08/2012 9:44 AM SAND MIXER Chrissy Yani De La Cruz APRN C.N.P., D.N.P. LAB URINE ORDTemitope LEVI Performing Organization Address [facility] Phon e Number POWERCHART Automated Differential (08/08/2012 9:41 AM SAND MIXER) P athologist Signature Neutro % 61.5 42.0 - POWERCHART 77.0 Lymphocytes % 28.2 23.0 - POWERCHART 44.0 HX [place] % 6.5 2.0 - 18.0 POWERCHART HX Eos % 3.6 1.0 - 5.0 POWERCHART HX Baso % 0.2 0.0 - 1.0 POWERCHART Absolute 3.22 1.70 - POWERCHART Neutrophils 7.00 109L Lymphocytes 1.48 0.90 - POWERCHART 2.90 X109L Monocytes 0.34 0.30 - POWERCHART 0.90 X109L Eosinophils 0.19 0.05 - POWERCHART 0.50 X109L Absolute 0.01 0.00 - POWERCHART Basophil 0.30 X109L Specimen Anatomical Collection Method Collection Time Receive d Time (Source) Location / / Volume Laterality Blood 08/08/2012 9:41 AM 201 2 9:41 SAND MIXER AM SAND MIXER Chrissy De La Cruz APRN C.N.P., D.N.P. LAB BLOOD ADD- ON Performing Organization Address City/[facility]/ZIP Code Phon e Number POWERCHART Sedimentation Rate (08/08/2012 9:41 AM SAND MIXER) Analysis Performed At Patho logist Time Signature Sedimentation 29 0 - 30 POWERCHART Rate, B MMHR Specimen (Source) Anatomical Collection Method Collection Time Re ceived Time Location / / Volume Laterality Blood 08/08/2012 9:41 AM SAND MIXER Chrissy De La Cruz APRN C.N.P., D.N.P. LAB BLOOD ADD- ON Performing Organization Address City/[facility]/ZIP Code Phon e Number POWERCHART CBC with Differential (08/08/2012 9:41 AM SAND MIXER) P athologist Signature Leukocytes 5.2 3.4 - 10.5 POWERCHART X109L Erythrocytes 4.68 3.90 - POWERCHART 5.03 L9818O Hemoglobin 13.7 12.0 - POWERCHART 15.5 GDL Hematocrit 41.3 34.9 - POWERCHART 44.5 MCV 88.2 82.0 - POWERCHART 98.0 FL HX RDW 13.5 11.9 - POWERCHART 15.5 Platelet Count 197 150 - 450 POWERCHART X109L HXDifferential? Auto POWERCHART Specimen (Source) Anatomical Collection Method Collection Time Re ceived Time Location / / Volume Laterality Blood 08/08/2012 9:41 AM SAND MIXER Chirssy De La Cruz APRN, C.N.P., D.N.P. LAB BLOOD ADD- ON Performing Organization Address City/[facility]/ZIP Code Phon e Number POWERCHART CRP (C-Reactive Protein) (08/08/2012 9:41 AM SAND MIXER) P athologist Signature C-Reactive 0.48 0.00 - 0.80 POWERCHART Protein (CRP), MGDL S Specimen (Source) Anatomical Collection Method Collection Time Re ceived Time Location / / Volume Laterality Blood 08/08/2012 9:41 AM SAND MIXER Chrissy De La Cruz APRN C.N.P., D.N.P. LAB BLOOD ADD- ON Performing Organization Address City/State/ZIP Code Phon e Number POWERCHART Thyroid-Stimulating Hormone-Sensitive (s-TSH) (08/08/2012 9:41 AM SAND MIXER) athologist Signature TSH 1.83 0.30 - 5.00 POWERCHART (Thyrotropin) MCIUML Specimen (Source) Anatomical Collection Method Collection Time Re ceived Time Location / / Volume Laterality Blood 08/08/2012 9:41 AM SAND MIXER Sunday Sparks APRN.N.PNaomi, D.N.P. LAB BLOOD ADD- ON Performing Organization Address City/State/ZIP Code Phon e Number POWERCHART Lipoprotein (a) (08/08/2012 9:41 AM SAND MIXER) athologist Signature Lp(a) 5 <=30 MGDL POWERCHART Cholesterol Comment: Test Performed by: [place] [address] Boiler Repair Supervisor: Bong tapia III, M.D. Specimen (Source) Anatomical Collection Method Collection Time Re ceived Time Location / / Volume Laterality Blood 08/08/2012 9:41 AM SAND MIXER Sunday Sparks APRN.N.P., D.N.P. LAB BLOOD ADD- ON Performing Organization Address City/State/ZIP Code Phon e Number POWERCHART (ABNORMAL) Lipid Panel (08/08/2012 9:41 AM SAND MIXER) athologist Signature Cholesterol, 248 (H) 0 - 200 POWERCHART Total MGDL Comment: <200 mg/dL Desirable 200-239 mg/dL Borderline High >239 mg/dL High HX HDL 67 (H) 35 - 60 MGDL POWERCHART Comment: > 60 mg/dL Desirable 40 ? 60 mg/dL Low Risk <40 mg/dL Undesirable Triglycerides 67 9 - 150 MGDL POWERCHART Comment: <150 mg/dL Desirable 150-199 mg/dL Borderline High 200-499 mg/dL High > 499 Very High Calculated LDL 167 (H) 100 - 129 MGDL POWERCHART Total Cholesterol/HDL Ratio 4 PO WERCHART Specimen (Source) Anatomical Collection Method Collection Time Re ceived Time Location / / Volume Laterality Blood 08/08/2012 9:41 AM SAND MIXER Chrissy De La Cruz APRN C.N.P., D.N.P. LAB BLOOD ADD- ON Performing Organization Address City/State/ZIP Code Phon e Number POWERCHART (ABNORMAL) CMP (Comprehensive Metabolic Panel) (08/08/2012 9:41 AM SAND MIXER) [facility] gist Method Time Signature Alanine 31 15 - 37 POWERCHART Amniotransferase, LD UL Albumin, S 4.3 3.5 - 5.0 POWERCHART GDL Alkaline 101 46 - 118 POWERCHART Phosphatase, S UL Aspartate 24 12 - 31 POWERCHART Aminotransferase UL (AST), S Sodium, S 135.0 135.0 - POWERCHART 145.0 MML Potassium, S 3.8 3.6 - 4.8 POWERCHART MMOLL Chloride, S 102 100 - 108 POWERCHART MMOLL CO2 Total 25.6 23.0 - POWERCHART 29.0 MMOLL BUN (Blood Urea 13 7 - 18 POWERCHART Nitrogen), S MGDL Creatinine 0.59 (L) 0.60 - POWERCHART 1.30 MGDL Calcium, Total, S 8.6 8.5 - POWERCHART 10.1 MGDL Anion Gap 7 (L) 10 - 20 POWERCHART MMOLL HXeGFR (MDRD) >60 >=60 POWERCHART [id number] Comment: A GFR of <60 mL/min is indicative of chr onic kidney disease. (MDRD calculation valid on patients 18 - 70 years.) eGFR Black/ >60 >=60 [id number] POWERCHART Bilirubin, Total, S 0.4 0.1 - 1.0 MGDL POWER CHART Total Protein, S 7.6 6.3 - 7.9 GDL POWERCHAR T Glucose 87 70 - 139 MGDL POWERCHART Specimen (Source) Anatomical Collection Method Collection Time Re ceived Time Location / / Volume Laterality Blood 08/08/2012 9:41 AM SAND MIXER Chrissy De La Cruz APRN, C.N.P., D.N.P. LAB BLOOD ADD- ON Performing Organization Address City/State/ZIP Code Phon e Number POWERCHART documented in this encounter Visit Diagnoses Not on filedocumented in this encounter
--- OUTSIDE RECORDS SUMMARY | 2022-05-04 10:22 | XMS_ITS | Encounter Summary ---
:1955 Author Organization [facility] Address [address] [place] [address] Care Team Providers Name Role Phone Unavailable Primary Care Provider Unavailable Encounter Details Date Type Department Care Team Description 01/26/2011 Hospital Encounter HX NO MAPPING Abhi Valle am, M.D. [address] [place] [address] [phone] (Wo rk) Social History Tobacco Use [...] or relatives? How often do you attend yarsani or holiness More than 4 time s per year 09/17/2021 services? Do you belong to any clubs or organizations Yes 09/17/2021 such as yarsani groups, unions, fraternal or athletic groups, or [...]
--- OUTSIDE RECORDS SUMMARY | 2022-05-04 10:22 | XMS_ITS | Encounter Summary ---
:1955 Author Organization [facility] Address [address] [place] [address] Care Team Providers Name Role Phone Unavailable Primary Care Provider Unavailable Encounter Details Date Type Department Care Team Description 07/25/2011 Hospital Encounter HX [facility] Ana Felix D.P.M. [address] [place] [phone] (Wo rk) Social History Tobacco Use [...] How often do you attend orthodoxy or yarsani More than 4 time s per year [...] as of this encounter Progress Notes Ana Saucedo, D.P.M. - 07/25/2011 9:15 AM CST [id number] No visit. Contact information for Sebastián Saenz given. Source: [facility] [email or web address] Document Id: [id number] Electronically signed by Conversion, [facility] [employer] [phone] at 01/21/2017 2:34 AM CDT documented in this encounter Plan of Treatment Not on filedocumented as of this encounter Visit Diagnoses Not on filedocumented in this encounter
--- OUTSIDE RECORDS SUMMARY | 2022-05-04 10:22 | XMS_ITS | Encounter Summary ---
:1955 Author Organization [facility] Address [address] [place] [address] Care Team Providers Name Role Phone Unavailable Primary Care Provider Unavailable Encounter Details Date Type Department Care Team Description 01/26/2011 Hospital Encounter HX NO MAPPING Abhi Valle am, M.D. [address] [place] [address] [phone] (Wo rk) Social History Tobacco Use [...] or relatives? How often do you attend jainism or restorationism More than 4 time s per year 09/17/2021 services? Do you belong to any clubs or organizations Yes 09/17/2021 such as jainism groups, unions, fraternal or athletic groups, or [...]
--- OUTSIDE RECORDS SUMMARY | 2022-05-04 10:22 | XMS_ITS | Encounter Summary ---
:1955 Author Organization [facility] Address [address] [place] [address] Care Team Providers Name Role Phone Unavailable Primary Care Provider Unavailable Encounter Details Date Type Department Care Team Description 07/16/2012 Hospital Encounter HX NO MAPPING Cayetano Raphael, [...] How often do you attend pentecostal or zoroastrian More than 4 time s [...]
--- OUTSIDE RECORDS SUMMARY | 2022-05-04 10:22 | XMS_ITS | Encounter Summary ---
:1955 Author Organization [facility] Address [address] [place] [address] Care Team Providers Name Role Phone Unavailable Primary Care Provider Unavailable Encounter Details Date Type Department Care Team Description 08/06/2012 Hospital Encounter HX NO MAPPING Carlos Lawton, [...] or relatives? How often do you attend mormonism or bahai More than 4 time s per year 09/17/2021 services? Do you belong to any clubs or organizations Yes 09/17/2021 such as mormonism groups, unions, fraternal or athletic groups, or [...] Sign Reading Time Taken Comments Blood Pressure 140/86 08/06/2012 10:18 AM AUTOMATIC HEAD SAWYER Pulse - - Temperature - - Respiratory [...] this encounter Consult Notes Carlos Lawton - 08/06/2012 10:11 AM CST [id number] HISTORY OF PRESENT ILLNESS This 57-year-old female is over 5 weeks out from a left shoulder proximal humerus fracture. The patient is doing fairly well. She has been working with formal physical therapy. PHYSICAL EXAMINATION EXTREMITIES/JOINTS: her active and passive forward flexion is fairly poor but does feel quite stiff.I can forward flex her to about 50 degrees and abduction is a bit worse. Passive external rotation is very tight as well. Strength with external rotation is 4/5 and internal rotation strength is 4+/5. IMAGING: radiographs demonstrate good positioning of the fracture with nothing acutely concerning. IMPRESSION/REPORT/PLAN Comminuted and mildly displaced proximal humerus fracture. The articular surface still looks good atthe glenohumeral joint. I think her rotator cuff function is adequate at this point in time. We would like to see some slight progression in the future, of course, but I think stiffness is her big issue right now as well. If she has any questions or concerns, she is encouraged to call, otherwise I spoke with her therapist directly today and he will work on some significant motion activities and eventually some strengthening. She will see us back once more in approximately one month to ensure things are going well or see us sooner if necessary. Carlos Lawton P.A.-C./ines Electronically Signed By: CARLOS LAWTON PA-C On: 02/04/2013 08:18 AM Source: [facility] MHSDOLBEYNONRADSYS Document Id: [id number] documented in this encounter Miscellaneous Notes Miscellaneous - Carlos Lawton - 08/06/2012 4:08 PM CST Ambulatory Depart Summary [facility] [address] [address] Visit Information Name: COLLEEN TILLMAN [facility] Number: [id number] Visit Date: 08/06/2012 16:08:27 Attending Provider: CARLOS LAWTON PA-C Primary Care Provider: CHRISSY DE LA CRUZ DNP, CONSERVATOR [employer]S COLLEEN TILLMAN has been given the following [...] your provider for clarification. Additional Information: Source: [facility] POWERCHART Document Id: [id number] MATIC HEAD SAWYER Xincellxavier - Carlos Lawton - 08/06/2012 4:08 PM CST Ambulatory Patient Summary [facility] [address] [place] [address] Visit Information Name: COLLEEN TILLMAN [facility] Number: [id number] Current Date: 08/06/2012 16:08:28 Physicians Attending Provider: CARLOS LAWTON PA-C Primary Care Provider: CHRISSY DE LA CRUZ DNP, CONSERVATOR [employer] Your Medications Here is a list of [...] for Pain / Fever Take with food [facility] Prescription (Melaluca vitamins) 1 packet Oral once [...] Upcoming Appointments Date Time Location Reason Provider 08/08/2012 08:15 [facility] Family Med ANNUAL PHYSICAL PAP? & ESTAB PCP 08/09/2012 08:00 CAM PT/OT Edgardo Gurrola 09/03/2012 14:30 [facility] Follow up Carlos Lawton PA-C Your Goals/Additional instructions: Source: [facility] POWERCHART Document Id: [id number] MATIC HEAD SAWYER Miscellaneous - Rose Ziegler R.N. - 08/06/2012 10:18 AM CST Adult Form Carpenter Intake/History Adult Form Carpenter Intake/History Entered On: 08/06/2012 10:23 AUTOMATIC HEAD SAWYER Performed On: 08/06/2012 10:18 AUTOMATIC HEAD SAWYER by ROSE ZIEGLER parker Chief Complaint : f/u left shoulder, humerus fx, doing well Temperature Core : 37.0C(Converted to: 98.6DegF) Systolic Blood Pressure : 140mmHg Diastolic Blood Pressure : 86mmHg NIBP Mean : 104mmHg BP Location : Left upper extremity Blood Pressure Cuff Size : Large ROSE ZIEGLER RN - 08/06/2012 10:18 AUTOMATIC HEAD SAWYER General Info Information Given By : Patient Preferred Communication Mode : Verbal Languages : Frisian ROSE ZIEGLER RN - 08/06/2012 10:18 AUTOMATIC HEAD SAWYER Subjective Pain Symptoms : Yes ROSE ZIEGLER RN - 08/06/2012 10:18 AUTOMATIC HEAD SAWYER Pain Pain Assessment Grid Pain 1 Location : Shoulder Laterality : Left Time Pattern : Chronic, Intermittent ROSE ZIEGLER RN - 08/06/2012 10:18 AUTOMATIC HEAD SAWYER Dependent Habits Tobacco Use/Currently Using : No Exposure to Tobacco Smoke : Care provider denies smoking in home Smoking Status : Never smoker ROSE ZIEGLER RN - 08/06/2012 10:18 AUTOMATIC HEAD SAWYER Tobacco Use Grid Last Use : never ROSE ZIEGLER RN - 08/06/2012 10:18 AUTOMATIC HEAD SAWYER Caffeine Use Grid Caffeine Use : None ROSE ZIEGLER RN - 08/06/2012 10:18 AUTOMATIC HEAD SAWYER Recreational Drug Use Grid Drug Use : None ROSE ZIEGLER RN - 08/06/2012 10:18 AUTOMATIC HEAD SAWYER Allergy Allergies (Active) Ceftin Estimated Onset Date: Unspecified ; Reactions: hives ; Created By: MADDIE AGOSTO LPN; Reaction Status: Active ; Category: Drug ; Substance: Ceftin ; Type: Allergy ; Updated By: MADDIE AGOSTO LPN; Reviewed Date: 08/06/2012 10:17 AUTOMATIC HEAD SAWYER Source: [facility] POWERCHART Document Id: [id number] MATIC HEAD SAWYER documented in this encounter Plan of Treatment Not on filedocumented as of this encounter Visit Diagnoses Not on filedocumented in this encounter
--- OUTSIDE RECORDS SUMMARY | 2022-05-04 10:23 | XMS_ITS | Encounter Summary ---
:1955 Author Organization [facility] Address [address] [place] [address] Care Team Providers Name Role Phone Unavailable Primary Care Provider Unavailable Encounter Details Date Type Department Care Team Description 12/20/2006 Hospital Encounter HX [facility] XRAY Provider, Histori reilly Social History Tobacco [...] How often do you attend jainism or orthodoxy More than 4 time s per year [...] documented as of this encounter Progress Notes Yulissa Finn C.N.P., R.N. - 12/20/2006 9:00 AM CDT [id number] Quick Note: Mira puentes sent [facility] Document Id: [id number] documented in this encounter Plan of Treatment Not on filedocumented as of this encounter Visit Diagnoses Not on filedocumented in this encounter
--- OUTSIDE RECORDS SUMMARY | 2022-05-04 10:23 | XMS_ITS | Encounter Summary ---
:1955 Author Organization [facility] Address [address] [place] [address] Care Team Providers Name Role Phone Unavailable Primary Care Provider Unavailable Encounter Details Date Type Department Care Team Description 11/21/2006 Hospital Encounter HX NO MAPPING Yulissa Finn APRN, C.N.P. [address] [address] [phone] (Wo rk) Social History Tobacco Use [...] How often do you attend baptist or samaritan More than 4 time s [...]
--- OUTSIDE RECORDS SUMMARY | 2022-05-04 10:23 | XMS_ITS | Encounter Summary ---
:1955 Author Organization [facility] Address [address] [place] [address] Care Team Providers Name Role Phone Unavailable Primary Care Provider Unavailable Encounter Details Date Type Department Care Team Description 07/12/2007 Hospital Encounter HX [facility] Yulissa Lopez, APR N, C.N.P. [address] [place], [place] [phone] (Wo rk) Social History [...] or relatives? How often do you attend protestant or nondenominational More than 4 time s per year 09/17/2021 services? Do you belong to any clubs or organizations Yes 09/17/2021 such as protestant groups, unions, fraternal or athletic groups, or [...] Miscellaneous - Conversion, Historical Provider Ser - 07/12/2007 12:00 AM CHILD DEVELOPMENT ASSISTANT [id number] Colleen Tolentino [address] [place] [phone] July 12, 2007 Dear Colleen Tolentino, APPOINTMENT REMINDER: Our record indicates that it is time for you to be seen for an office visit with Yulissa Finn PA-C You may call our office at [phone] to schedule an appointment for an Annual Physical. Please check with your insurance carrier for authorization prior to this appointment. Please disregard this notice if you have already received authorization from your insurance company and have made an appointment. Sincerely, [facility] Source: [facility] Document Id: [id number] documented in this encounter Plan of Treatment Not on filedocumented as of this encounter Visit Diagnoses Not on filedocumented in this encounter
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
--- OUTSIDE RECORDS SUMMARY | 2022-05-04 10:23 | XMS_ITS | Encounter Summary ---
:1955 Author Organization [facility] Address [address] [place] [address] Care Team Providers Name Role Phone Unavailable Primary Care Provider Unavailable Encounter Details Date Type Department Care Team Description 01/03/2011 Hospital Encounter HX NO MAPPING Yulissa Finn APRN, C.N.P. [address] [phone] (Wo rk) Social History Tobacco Use [...] How often do you attend sikh or quaker More than 4 time s [...]
--- OUTSIDE RECORDS SUMMARY | 2022-05-04 10:23 | XMS_ITS | Encounter Summary ---
:1955 Author Organization [facility] Address [address] [place] [address] Care Team Providers Name Role Phone Unavailable Primary Care Provider Unavailable Encounter Details Date Type Department Care Team Description 01/03/2011 Hospital Encounter HX [facility] Yulissa Lopez, APR N, C.N.P. [address] [place], [place] [phone] (Wo rk) Social History [...] How often do you attend religion or spiritism More than 4 time s [...] place to sleep or slept in a intermediate (including now)? Sex Assigned at Date Recorded [...]
--- OUTSIDE RECORDS SUMMARY | 2022-05-04 10:23 | XMS_ITS | Encounter Summary ---
:1955 Author Organization [facility] Address [address] [place] [address] Care Team Providers Name Role Phone Unavailable Primary Care Provider Unavailable Encounter Details Date Type Department Care Team Description 01/03/2011 Hospital Encounter HX NO MAPPING Yulissa Finn APRN, C.N.P. [address] [phone] (Wo rk) Social History Tobacco Use [...] How often do you attend voodoo or jain More than 4 time s per year [...] or slept in a usp (including now)? Sex Assigned at Date Recorded [...]
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
--- OUTSIDE RECORDS SUMMARY | 2022-05-04 10:23 | XMS_ITS | Encounter Summary ---
:1955 Author Organization [facility] Address [address] [place] [address] Care Team Providers Name Role Phone Unavailable Primary Care Provider Unavailable Encounter Details Date Type Department Care Team Description 10/05/2008 Hospital Encounter HX [facility] Yulissa Lopez, APR N, C.N.P. [address] [place], [place] [phone] (Wo rk) Social History [...] How often do you attend pentecostalism or restoration More than 4 time s [...]
--- OUTSIDE RECORDS SUMMARY | 2022-05-04 10:23 | XMS_ITS | Encounter Summary ---
:1955 Author Organization [facility] Address [address] [place] [address] Care Team Providers Name Role Phone Unavailable Primary Care Provider Unavailable Encounter Details Date Type Department Care Team Description 12/20/2006 Hospital Encounter HX NO MAPPING Yulissa Finn APRN, C.N.P. [address] [phone] (Wo rk) Social History Tobacco Use [...] How often do you attend buddhism or jew More than 4 time s [...]
--- OUTSIDE RECORDS SUMMARY | 2022-05-04 10:23 | XMS_ITS | Encounter Summary ---
:1955 Author Organization [facility] Address [address] [place] [address] Care Team Providers Name Role Phone Unavailable Primary Care Provider Unavailable Encounter Details Date Type Department Care Team Description 09/23/2008 Hospital Encounter HX NO MAPPING Yulissa Finn APRN, C.N.P. [address] [phone] (Wo rk) Social History Tobacco Use [...] How often do you attend rastafari or pentecostal More than 4 time s [...]
--- OUTSIDE RECORDS SUMMARY | 2022-05-04 10:23 | XMS_ITS | Encounter Summary ---
:1955 Author Organization [facility] Address [address] [place] [address] Care Team Providers Name Role Phone Unavailable Primary Care Provider Unavailable Encounter Details Date Type Department Care Team Description 12/11/2006 Hospital Encounter [facility]X [facility] Yulissa Lopez, APR N, C.N.P. [address] [place], [place] [phone] (Wo rk) Social History [...] How often do you attend hindu or uatsdin More than 4 time s per year [...]
--- OUTSIDE RECORDS SUMMARY | 2022-05-04 10:23 | XMS_ITS | Encounter Summary ---
:1955 Author Organization [facility] Address [address] [place] [address] Care Team Providers Name Role Phone Unavailable Primary Care Provider Unavailable Encounter Details Date Type Department Care Team Description 07/20/2005 Hospital Encounter HX NO MAPPING Yluissa Finn APRN, C.N.P. [address] [phone] (Wo rk) Social History Tobacco Use [...] How often do you attend mandaen or sikhism More than 4 time s [...]
--- OUTSIDE RECORDS SUMMARY | 2022-05-04 10:23 | XMS_ITS | Encounter Summary ---
:1955 Author Organization [facility] Address [address] [place] [address] Care Team Providers Name Role Phone Unavailable Primary Care Provider Unavailable Encounter Details Date Type Department Care Team Description 10/10/2010 Hospital Encounter [facility] Solis Caicedo O.D. Social History Tobacco Use [...] How often do you attend druze or hinduism More than 4 time s per year [...] Miscellaneous - Conversion, Historical Provider Ser - 10/10/2010 12:00 AM EPIDEMIOLOGY INVESTIGATOR [id number] Colleen Tolentino [address] [place] [phone] [facility] October 10, 2010 Dear Colleen Tolentino: Our records indicate that you are due for the following appointment: TWO YEAR EYE EXAM Please call us to make an appointment at your convenience. Our telephone number for scheduling an appointment is [phone]. If you have already made an appointment for this or have had the proceduredone, please disregard this notice. We look forward to seeing you soon. Sincerely, Solis Michaels O.D./yoselin Ophthalmology Department [facility] Source: [facility] Document Id: [id number] documented in this encounter Plan of Treatment Not on filedocumented as of this encounter Visit Diagnoses Not on filedocumented in this encounter
--- OUTSIDE RECORDS SUMMARY | 2022-05-04 10:23 | XMS_ITS | Encounter Summary ---
:1955 Author Organization [facility] Address [address] [place] [address] Care Team Providers Name Role Phone Unavailable Primary Care Provider Unavailable Encounter Details Date Type Department Care Team Description 10/07/2008 Hospital Encounter HX [facility] Solis Caicedo O.D. Social History Tobacco [...] or relatives? How often do you attend anglican or amish More than 4 time s per year 09/17/2021 services? Do you belong to any clubs or organizations Yes 09/17/2021 such as anglican groups, unions, fraternal or athletic groups, or [...] encounter Progress Notes Solis Michaels O.D. - 10/07/2008 9:00 AM CST [id number] CLINIC ENCOUNTER SLIT LAMP EXAM: Shows angles to be open. Corneas: LASIK scars well healed both eyes. Lenses: No apparent pathology. Bulbar and palpebral conjunctivae clear. 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 INTERNAL: C/D = 0.3, 0.3. A/V = 2/3. FUNDUS: No apparent pathology. Macular reflex minus, both eyes. IMPRESSION: Low amount of astigmatism with presbyopia. Vision good without glasses at this time. PLAN: The patient will continue with ukto-ofu-djmbnam readers. Reevaluate with full exam in two years, sooner if needed. Solis Michaels O.D. KMivana cc: Source: [facility] RWHXTRANSXSYS Document Id: [id number] Electronically signed by Conversion, [facility] City Dispatcher [id number] at 01/21/2017 6:48 PM CDT Conversion, Historical Provider Ser - 10/07/2008 9:00 AM CST [id number] Pain Questionnaire: Is your visit today because of Pain? NO C.C - COMPLETE EYE EXAM HPI - SHE SOMETIMES HAS TO USE READING GLASSES. SHE DOES NOT HAVE ANY VISUAL COMPLAINTS. DENIES ITCHING OR DRYNESS OF EYES. SHE IS 8 YEARS S/P BILATERAL LASIK AND IS VERY HAPPY WITH HER OUTCOME. Earlene Sharma, CIRILO REVIEW OF SYSTEMS: Skin: negative. Eyes:LASIK Ears/Nose/Throat: negative. Respiratory: negative. Cardiovascular: negative. Gastrointestinal: negative. Genitourinary: negative. Musculoskeletal: negative. Neurologic: negative. Psychiatric: negative. Hematologic/Lymphatic/Immunologic: negative. Endocrine: negative. MEDICATIONS: Current outpatient prescriptions Medication Sig FISH OIL 1200 MG OR CAPS 1 tab a day CRANBERRY 500 MG OR CAPS 1 cap a daily ASPIRIN 81 MG OR TABS 2 TABLET DAILY MULTIVITAMIN OR None Entered CALCIUM 500-125 MG-IU OR TABS 2 tab qd . FAMILY HISTORY: Family History Problem Relation Hypertension Mother Osteoporosis Mother Thyroid Mother Hypertension Father Lipids Father Genitourinary () Father turps x4 Cancer Father prostate Cardiovascular Father CAD severe Stroke Paternal Grandmother Breast CA Mother Distance OD OS OU CC SC 30+1 25-2 25 Pinhole Near OD OS OU @ 16 in CC @ 16 in SC 30 ON EXAM: Near point convergence: to nose. Mobility: FROM. Pupils: PERRLA, MG and no afferent defect. Visual Field: Confrontation, WNL right eye & left eye. Induced Phorias: Distance: 2, exo. Near:5, exo. Vertical Phoria:ortho. Current RX:NONE WITH HER Sphere Cylinder Clinton Add Prism OD OS Refraction RET OD RET OS MR OD -.25 20/30 VA OU MR OS PLANO +.25 040 20/25 25 ADD OD +2.00 NA NA 20/ VA OU ADD OS +2.00 NA NA 20/ 20 CYC OD 20/ CYC OS 20/ Final RX: Sphere Cylinder Clinton Add Prism OD +2.00 READERS OS IOP OD 13 OS 16 Tonometry Applination Dilation Medication Tropicamide 1.0% Optic Disc Assessment C/D Ratio OD C/D Ratio OS HPI ROS Physical Exam Source: [facility] RWHXTRANSXRTFSYS Document Id: [id number] documented in this encounter Plan of Treatment Not on filedocumented as of this encounter Visit Diagnoses Not on filedocumented in this encounter
--- OUTSIDE RECORDS SUMMARY | 2022-05-04 10:23 | XMS_ITS | Encounter Summary ---
:1955 Author Organization [facility] Address [address] [place] [address] Care Team Providers Name Role Phone Unavailable Primary Care Provider Unavailable Encounter Details Date Type Department Care Team Description 08/24/2004 Hospital Encounter [facility]X [facility] Yulissa Lopez, APR N, C.N.P. [address] [place], [place] [phone] (Wo rk) Social History [...] How often do you attend sabianist or pentecostalism More than 4 time s [...] of this encounter Miscellaneous Notes Miscellaneous - Yulissa Finn C.NJulia, R.N. - 08/24/2004 12:00 AM CST [id number] Date: 08/24/2004 Name: Colleen Tolentino Birthdate: 1955 Soc.Sec.No: [id number] Colleen, Our records show you were due to have your cholesterol level checked in July. Please let me knowif you are still interested in having this done and I will renew the order for you. Thanks. Yulissa Finn RN, APPLICATION PROGRAMMER ANALYST OBSTETRICS/GYNECOLOGY [facility] Source: [facility] Document Id: [id number] Electronically signed by Lizeth, [facility] Structured Cabling Technician [id number] at 01/22/2017 6:27 PM CDT documented in this encounter Plan of Treatment Not on filedocumented as of this encounter Visit Diagnoses Not on filedocumented in this encounter
--- OUTSIDE RECORDS SUMMARY | 2022-05-04 10:23 | XMS_ITS | Encounter Summary ---
:1955 Author Organization [facility] Address [address] [place] [address] Care Team Providers Name Role Phone Unavailable Primary Care Provider Unavailable Encounter Details Date Type Department Care Team Description 12/05/2010 Hospital Encounter HX [facility] Yulissa Ruffin APRN, C.N.P. [address] [place], [place] [phone] (Wo rk) Social History [...] How often do you attend muslim or scientology More than 4 time s [...]
--- OUTSIDE RECORDS SUMMARY | 2022-05-04 10:23 | XMS_ITS | Encounter Summary ---
:1955 Author Organization [facility] Address [address] [place] [address] Care Team Providers Name Role Phone Unavailable Primary Care Provider Unavailable Encounter Details Date Type Department Care Team Description 09/03/2008 Hospital Encounter HX [facility] [place] Steven M.D. [address] [place] [address] (Wo rk) Social History Tobacco [...] or relatives? How often do you attend samaritan or holiness More than 4 time s per year 09/17/2021 services? Do you belong to any clubs or organizations Yes 09/17/2021 such as samaritan groups, unions, fraternal or athletic groups, or [...]
--- OUTSIDE RECORDS SUMMARY | 2022-05-04 10:23 | XMS_ITS | Encounter Summary ---
:1955 Author Organization [facility] Address [address] [place] [address] Care Team Providers Name Role Phone Unavailable Primary Care Provider Unavailable Encounter Details Date Type Department Care Team Description 12/31/2006 Hospital Encounter [facility]X [facility] Yulissa Lopez, APR N, C.N.P. [address] [place], [place] [phone] (Wo rk) Social History [...] How often do you attend mu-ism or uatsdin More than 4 time s [...]
--- OUTSIDE RECORDS SUMMARY | 2022-05-04 10:23 | XMS_ITS | Encounter Summary ---
:1955 Author Organization [facility] Address [address] [place] [address] Care Team Providers Name Role Phone Unavailable Primary Care Provider Unavailable Encounter Details Date Type Department Care Team Description 04/05/2006 Hospital Encounter [facility] Ana Felix D.P.M. [address] [place] [phone] (Wo rk) Social History Tobacco Use [...] How often do you attend mormonism or yarsanism More than 4 time s [...]
--- OUTSIDE RECORDS SUMMARY | 2022-05-04 10:23 | XMS_ITS | Encounter Summary ---
:1955 Author Organization [facility] Address [address] [place] [address] Care Team Providers Name Role Phone Unavailable Primary Care Provider Unavailable Encounter Details Date Type Department Care Team Description 07/22/2008 Hospital Encounter [facility] Yulissa Ruffin APRN, C.N.P. [address] [place], [place] [phone] (Wo rk) Social History [...] How often do you attend taoism or rastafarian More than 4 time s [...]
--- OUTSIDE RECORDS SUMMARY | 2022-05-04 10:23 | XMS_ITS | Encounter Summary ---
:1955 Author Organization [facility] Address [address] [place] [address] Care Team Providers Name Role Phone Unavailable Primary Care Provider Unavailable Encounter Details Date Type Department Care Team Description 09/23/2008 Hospital Encounter HX NO MAPPING Yulissa Finn APRN, C.N.P. [address] [phone] (Wo rk) Social History Tobacco Use [...] How often do you attend evangelical or episcopal More than 4 time s [...]
--- OUTSIDE RECORDS SUMMARY | 2022-05-04 10:23 | XMS_ITS | Encounter Summary ---
:1955 Author Organization [facility] Address [address] [place] [address] Care Team Providers Name Role Phone Unavailable Primary Care Provider Unavailable Encounter Details Date Type Department Care Team Description 08/24/[address] [facility] Yulissa Ruffin APRN, C.N.P. [address] [place], [place] [phone] (Wo rk) Social History [...] How often do you attend mormonism or mandaeism More than 4 time s [...]
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
--- OUTSIDE RECORDS SUMMARY | 2022-05-04 10:23 | XMS_ITS | Encounter Summary ---
:1955 Author Organization [facility] Address [address] [place] [address] Care Team Providers Name Role Phone Unavailable Primary Care Provider Unavailable Encounter Details Date Type Department Care Team Description 09/06/2005 Hospital Encounter HX [facility] Ana Felix D.P.M. [address] [place] [phone] (Wo rk) Social History Tobacco Use [...] How often do you attend christian or yazdanism More than 4 time s per year [...] encounter Progress Notes Ana Saucedo D.P.M. - 09/06/2005 9:45 AM CST [id number] SUBJECTIVE: Colleen presents to clinic for citrus picker of custom functional orthotics. OBJECTIVE: The orthotic shells were fit just proximal to the metatarsal heads bilaterally and fit well to the arch bilaterally. Devices are metatarsal length with lift for leg length discrepency. Orthotic devices were noted to fit to shoe gear in size and conformity. Colleen walked with devices in shoegear relating no pain or pressure points. 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 Assessment for Colleen will be ongoingwith changes in treatment as indicated. Benefits/risks/alternatives to treatment have been reviewed and Colleen has been instructed to contact this office if she has any questions or concerns. Colleen will follow with podiatry as needed if she has continued problems or discomfort. This plan of care has been discussed with Colleen and she is in agreement. Colleen voiced understanding to infromation discussed this visit. Source: [facility] BILOXIHXTRANSXRTFSYS Document Id: [id number] documented in this encounter Plan of Treatment Not on filedocumented as of this encounter Visit Diagnoses Not on filedocumented in this encounter
--- OUTSIDE RECORDS SUMMARY | 2022-05-04 10:23 | XMS_ITS | Encounter Summary ---
:1955 Author Organization [facility] Address [address] [place] [address] Care Team Providers Name Role Phone Unavailable Primary Care Provider Unavailable Encounter Details Date Type Department Care Team Description 10/22/2006 Hospital Encounter HX NO MAPPING Yulissa Finn APRN, C.N.P. [address] [phone] (Wo rk) Social History Tobacco Use [...] How often do you attend uatsdin or caodaism More than 4 time s per year [...]
--- OUTSIDE RECORDS SUMMARY | 2022-05-04 10:23 | XMS_ITS | Encounter Summary ---
:1955 Author Organization [facility] Address [address] [place] [address] Care Team Providers Name Role Phone Unavailable Primary Care Provider Unavailable Encounter Details Date Type Department Care Team Description 09/07/2008 Hospital Encounter [facility] Yulissa Ruffin APRN, C.N.P. [address] [place], [place] [phone] (Wo rk) Social History [...] How often do you attend restorationist or islam More than 4 time s [...]
--- OUTSIDE RECORDS SUMMARY | 2022-05-04 10:23 | XMS_ITS | Encounter Summary ---
:1955 Author Organization [facility] Address [address] [place] [address] Care Team Providers Name Role Phone Unavailable Primary Care Provider Unavailable Encounter Details Date Type Department Care Team Description 05/08/2006 Hospital Encounter [facility]X [facility] Yulissa Lopez, APR N, C.N.P. [address] [place], [place] [phone] (Wo rk) Social History [...] How often do you attend mormonism or hindu More than 4 time s per year [...]
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
--- OUTSIDE RECORDS SUMMARY | 2022-05-04 10:23 | XMS_ITS | Encounter Summary ---
:1955 Author Organization [facility] Address [address] [place] [address] Care Team Providers Name Role Phone Unavailable Primary Care Provider Unavailable Encounter Details Date Type Department Care Team Description 09/23/2008 Hospital Encounter HX [facility] XRAY Provider, Histori reilly Social History [...] How often do you attend zoroastrianism or restorationist More than 4 time s [...]
--- OUTSIDE RECORDS SUMMARY | 2022-05-04 10:23 | XMS_ITS | Encounter Summary ---
:1955 Author Organization [facility] Address [address] [place] [address] Care Team Providers Name Role Phone Unavailable Primary Care Provider Unavailable Encounter Details Date Type Department Care Team Description 12/31/2006 Hospital Encounter [facility] Yulissa Lopez, APR N, C.N.P. [address] [place], [place] [phone] (Wo rk) Social History [...] or relatives? How often do you attend adventist or caodaism More than 4 time s per year 09/17/2021 services? Do you belong to any clubs or organizations Yes 09/17/2021 such as adventist groups, unions, fraternal or athletic groups, or [...]
--- OUTSIDE RECORDS SUMMARY | 2022-05-04 10:24 | XMS_ITS | Encounter Summary ---
:1955 Author Organization [facility] Address [address] [place] [address] Care Team Providers Name Role Phone Unavailable Primary Care Provider Unavailable Encounter Details Date Type Department Care Team Description 02/23/2004 Hospital Encounter HX NO MAPPING Provider, Historical [...] How often do you attend presybeterian or adventist More than 4 time s [...] of this encounter Miscellaneous Notes Miscellaneous - Lizeth, Historical Provider Ser - 02/23/2004 12:00 AM CDT [id number] Abstracted by NATALY Meat Carrier on 02/25/2004 [facility] [place] [phone], YVONNE : 53Medical Record Number: [id number] Number: SSSMattcyrus Georges M.D.02/23/04 PROCEDURE/OPERATIVE REPORTPREOPERATIVE DIAGNOSIS:Symptomatic left ankle implant, status post BJ F ankle fracture. POSTOPERATIVE DIAGNOSIS:Symptomatic left ankle implant, status post ORIF ankle fracture.PROCEDURE: REMOVAL OF ANKLE PLATE AND SCREWSSurgeon: Dr. Georges.Anesthesia: General. OPERATION: The patient was brought to the operating room and positioned where anesthesia was admin istered. Following this the ankle was then sterilely prepped and draped. The leg was then elevated and exsanguinated and a tourniquet was inflated. A linear incision was made over the previous incisi onal scar. This was carried down through the subcutaneous tissue. The plate and screws were easily identified. They were then removed. The fracture had healed completely. After irrigation closure was accomplished with Vicryl and nylon sutures. A sterile dressing was applied. The patient was the n awakened from anesthesia and brought to the recovery room in satisfactory condition having tolerate d surgery well.Sanjay Georges M.D./[facility]: 02/23/04T: 02/24/04 Source: [facility]WHX[facility]ANSX[facility] Document Id: [id number] documented in this encounter Plan of Treatment Not on filedocumented as of this encounter Visit Diagnoses Not on filedocumented in this encounter
--- OUTSIDE RECORDS SUMMARY | 2022-05-04 10:24 | XMS_ITS | Encounter Summary ---
:1955 Author Organization [facility] Address [address] [place] [address] Care Team Providers Name Role Phone Unavailable Primary Care Provider Unavailable Encounter Details Date Type Department Care Team Description 02/23/2004 Hospital Encounter HX NO MAPPING Sanjay Georges M.D. Social History Tobacco Use Types Packs/Day Years [...] or relatives? How often do you attend baptism or confucianist More than 4 time s per year 09/17/2021 services? Do you belong to any clubs or organizations Yes 09/17/2021 such as baptism groups, unions, fraternal or athletic groups, or [...] or slept in a mcfp (including now)? Sex Assigned at Date Recorded [...]
--- OUTSIDE RECORDS SUMMARY | 2022-05-04 10:24 | XMS_ITS | Encounter Summary ---
:1955 Author Organization [facility] Address [address] [place] [address] Care Team Providers Name Role Phone Unavailable Primary Care Provider Unavailable Encounter Details Date Type Department Care Team Description 03/03/2004 Hospital Encounter [facility]X [facility] Provider, Histor ical Social History Tobacco Use Types Packs/Day Years [...] How often do you attend rastafarian or hoahaoism More than 4 time s per year [...]
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
--- OUTSIDE RECORDS SUMMARY | 2022-05-04 10:25 | XMS_ITS | Encounter Summary ---
:1955 Author Organization [facility] Address [address] [place] [address] Care Team Providers Name Role Phone Unavailable Primary Care Provider Unavailable Encounter Details Date Type Department Care Team Description 11/28/2002 Hospital Encounter [facility]X [facility] Provider, Histori reilly Social History Tobacco Use [...] How often do you attend catholic or hindu More than 4 time s [...]
--- OUTSIDE RECORDS SUMMARY | 2022-05-04 10:25 | XMS_ITS | Encounter Summary ---
:1955 Author Organization [facility] Address [address] [place] [address] Care Team Providers Name Role Phone Unavailable Primary Care Provider Unavailable Encounter Details Date Type Department Care Team Description 02/18/2004 Hospital Encounter [facility] Provider, Historic al Social History Tobacco Use Types Packs/Day Years [...] or relatives? How often do you attend mandaeism or hinduism More than 4 time s per year 09/17/2021 services? Do you belong to any clubs or organizations Yes 09/17/2021 such as mandaeism groups, unions, fraternal or athletic groups, or [...]
--- OUTSIDE RECORDS SUMMARY | 2022-05-04 10:25 | XMS_ITS | Encounter Summary ---
:1955 Author Organization [facility] Address [address] [place] [address] Care Team Providers Name Role Phone Unavailable Primary Care Provider Unavailable Encounter Details Date Type Department Care Team Description 12/01/2002 Hospital Encounter [facility] Social History Tobacco Use Types Packs/Day Years [...] How often do you attend faith or lutheran More than 4 time s [...]
--- OUTSIDE RECORDS SUMMARY | 2022-05-04 10:25 | XMS_ITS | Encounter Summary ---
:1955 Author Organization [facility] Address [address] [place] [address] Care Team Providers Name Role Phone Unavailable Primary Care Provider Unavailable Encounter Details Date Type Department Care Team Description 01/08/2003 Hospital Encounter HX [facility] INTERNMED Geovani Aj M.D. [address] [place] [address] [phone] (Wo rk) Social History Tobacco Use Types [...] How often do you attend jewish or mormonism More than 4 time s per year [...] Progress Notes Conversion, Historical Provider Ser - 01/08/2003 1:00 PM CDT [id number] The patient is seen today in [facility] Clinic for removal of her patch tests. After removal there ap peared to be no reactions except for some mild gen redness under the tape. Will return in 48h for fi nal reading. Source: [facility] RWHXTRANSXSYS Document Id: [id number] documented in this encounter Plan of Treatment Not on filedocumented as of this encounter Visit Diagnoses Not on filedocumented in this encounter
--- OUTSIDE RECORDS SUMMARY | 2022-05-04 10:25 | XMS_ITS | Encounter Summary ---
:1955 Author Organization [facility] Address [address] [place] [address] Care Team Providers Name Role Phone Unavailable Primary Care Provider Unavailable Encounter Details Date Type Department Care Team Description 02/26/[address] [facility] PODIATRY Provider, His torical Social History Tobacco Use Types Packs/Day Years [...] How often do you attend alevism or congregation More than 4 time s per year [...]
--- OUTSIDE RECORDS SUMMARY | 2022-05-04 10:25 | XMS_ITS | Encounter Summary ---
:1955 Author Organization [facility] Address [address] [place] [address] Care Team Providers Name Role Phone Unavailable Primary Care Provider Unavailable Encounter Details Date Type Department Care Team Description 01/07/2003 Hospital Encounter [facility] PEDIATRIC Geovani Aj M.D. [address] [place] [address] [phone] (Wo rk) Social History Tobacco [...] How often do you attend pentecostal or scientology More than 4 time s [...] Progress Notes Conversion, Historical Provider Ser - 01/07/2003 1:30 PM CDT [id number] The patient is seen today for application of T.R.U.E TEST patches. Will return in 24h for removal an d reading. Source: [facility] RWHXTRANSXSYS Document Id: [id number] documented in this encounter Plan of Treatment Not on filedocumented as of this encounter Visit Diagnoses Not on filedocumented in this encounter
--- OUTSIDE RECORDS SUMMARY | 2022-05-04 10:25 | XMS_ITS | Encounter Summary ---
:1955 Author Organization [facility] Address [address] [place] [address] Care Team Providers Name Role Phone Unavailable Primary Care Provider Unavailable Encounter Details Date Type Department Care Team Description 11/14/2002 Hospital Encounter HX [facility] Provider, Tn storical Social History Tobacco Use Types Packs/Day Years [...] or relatives? How often do you attend spiritism or zoroastrianism More than 4 time s per year 09/17/2021 services? Do you belong to any clubs or organizations Yes 09/17/2021 such as spiritism groups, unions, fraternal or athletic groups, or [...] Encounter - Conversion, Historical Provider Ser - 11/14/2002 12:00 AM CST [id number] >> MARKIE Taylor Nov 14, 2002 10:57 AM >> CALL RECEIVED. Contact: I called her, went over the path report. She has an appt with her Derm MD in 10 days or so, says the hand condition is getting better. Source: [facility] RWHXTRANSXSYS Document Id: [id number] documented in this encounter Plan of Treatment Not on filedocumented as of this encounter Visit Diagnoses Not on filedocumented in this encounter
--- OUTSIDE RECORDS SUMMARY | 2022-05-04 10:25 | XMS_ITS | Encounter Summary ---
:1955 Author Organization [facility] Address [address] [place] [address] Care Team Providers Name Role Phone Unavailable Primary Care Provider Unavailable Encounter Details Date Type Department Care Team Description 12/26/2002 Hospital Encounter [facility] INTERNMED Geovani Aj M.D. 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 The patient has had trouble with redness, scaling and itching of the palms of both of he r hands for about a year. She states that the symptoms began while she was using crutches following ankle surgery. She was on crutches for about 6 weeks, but the condition seemed to persist even after that was done. In addition, she has had similar redness and itching on her feet, but describes it m ore as calluses around the edges of her feet and the arches. She also has noted some rash between he r legs and her inner thighs, but doesn't recall having any prior symptoms of a similar nature in year s past. She has been seen at least on 2 occasions by tele-medicine by [facility], who initially thought she might have psoriasis and was treated with several different topical ster oids including Triamcinalone, clolbetasol, Ultravate and Elidel cream. During one of the visits, pun ch biopsy was obtained from the palm of one of her hands and the report indicated dermatitis that was spongiform and compatible with allergic contact dermatitis. One additional treatment that she had w as provided by Dr. Gan and was Lotrisone, which did seem to help more than anything else. Acc ording to the patient she has not had any fungal testing. The patient has been unable to identify any specific triggers or associations with her rash in her job as a nurse. She rarely uses latex glov es. She describes her symptoms in terms of flares and states that often times this will occur even while she is driving in the car. She has no prior history of any other allergies to inhalants. No kn own history of reaction to latex gloves. OBJECTIVE:The patient is alert, in no distress.Exam is significant primarily for the skin. The patient has a very intense dermatitis of the palms of her bruno nds with diffuse erythema, scaling and fissuring with only minimal involvement of the dorsum of her h and and fingers with some slightly orange colored plaques. There is no nail involvement. The feet reveal a lot of hyperkeratosis on the plantar surfaces with some raised, orange, yellow plaques simil ar to that noted on the hands. Not as much erythema or fissuring of the feet. Otherwise the exam is unremarkable. A ZULAY scraping is done and is negative. Skin tests for latex allergy are done and are negative to both 1:10 dilution and concentrate.ASSESSMENT:Contact dermatitis.PLAN:Over 20 minutes was spent with the patient face to face of which 15 were devoted to counseling, discussing va rious testing methods and types of allergens that can be responsible for contact dermatitis. Will bruno ve the patient return at a time when her schedule is convenient for testing and apply patch tests bef ore doing anything further. Juan Aj M.D./mpD: 12/26/02T: 12/30/02 Source: [facility] RWHXTRANSXSYS Document Id: [id number] documented in this encounter Plan of Treatment Not on filedocumented as of this encounter Visit Diagnoses Not on filedocumented in this encounter
--- OUTSIDE RECORDS SUMMARY | 2022-05-04 10:25 | XMS_ITS | Encounter Summary ---
:1955 Author Organization [facility] Address [address] [place] [address] Care Team Providers Name Role Phone Unavailable Primary Care Provider Unavailable Encounter Details Date Type Department Care Team Description 02/18/2004 Hospital Encounter [facility] Provider, [facility] Social History Tobacco Use Types Packs/Day Years [...] or relatives? How often do you attend temple or holiness More than 4 time s per year 09/17/2021 services? Do you belong to any clubs or organizations Yes 09/17/2021 such as temple groups, unions, fraternal or athletic groups, or [...]
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
--- OUTSIDE RECORDS SUMMARY | 2022-05-04 10:25 | XMS_ITS | Encounter Summary ---
:1955 Author Organization [facility] Address [address] [place] [address] Care Team Providers Name Role Phone Unavailable Primary Care Provider Unavailable Encounter Details Date Type Department Care Team Description 02/15/2004 Hospital Encounter [facility] ORTHO Sanjay Georges M .D. Social History Tobacco Use Types Packs/Day Years [...] How often do you attend holiness or christian More than 4 time s [...] Progress Notes Conversion, Historical Provider Ser - 02/15/2004 9:45 AM CDT [id number] Addended by: PANDA CALDWELL on: 02/19/2004,2:28 PM Comment: [employer].Modules accepted: Amarilis tomlinson NotesThe individual is here because of increasing pain to the left ankle. She is status-po st ORIF of an ankle fracture about 2 years ago. There has been increasing symptoms over the plate ar ea. CLINICALLY she has a palpable screw prominence over the middle portion of the plate, also to t he distal end of the plate. The ankle otherwise shows good range of motion and stability. X-rays obtained demonstrate what appears to be loosening of the distal screw and middle screw with some eros ion over the tibia. The fracture of the fibula appears to be well healed. IMPRESSION: Symptomati c metallic implant.DISPOSITION: I believe this individual should have the plate removed. The natu re of this was gone over with her, and we'll try to schedule it in the near future. Tommy Georges M.D./rvD: 02/17/2004T: 02/19/2004 Source: [facility] RWHXTRANSXSYS Document Id: [id number] documented in this encounter Plan of Treatment Not on filedocumented as of this encounter Visit Diagnoses Not on filedocumented in this encounter
--- OUTSIDE RECORDS SUMMARY | 2022-05-04 10:25 | XMS_ITS | Encounter Summary ---
:1955 Author Organization [facility] Address [address] [place] [address] Care Team Providers Name Role Phone Unavailable Primary Care Provider Unavailable Encounter Details Date Type Department Care Team Description 02/11/2004 Hospital Encounter HX NO MAPPING Provider, Historical [...] How often do you attend mandaen or latter day More than 4 time [...] Miscellaneous - Conversion, Historical Provider Ser - 02/11/2004 12:00 AM CDT [id number] MEDICAL RECORD RELEASE TO [facility] [address] [place] [address] CLINIC NOTES 03/20 TO P RESENT RETRIEVAL 13.79 COPIES TAX 2.74 [facility] Document Id: [id number] documented in this encounter Plan of Treatment Not on filedocumented as of this encounter Visit Diagnoses Not on filedocumented in this encounter
--- OUTSIDE RECORDS SUMMARY | 2022-05-04 10:25 | XMS_ITS | Encounter Summary ---
:1955 Author Organization [facility] Address [address] [place] [address] Care Team Providers Name Role Phone Unavailable Primary Care Provider Unavailable Encounter Details Date Type Department Care Team Description 09/02/2003 Hospital Encounter [facility] Social History Tobacco Use Types Packs/Day Years [...] How often do you attend voodoo or shinto More than 4 time s [...]
--- OUTSIDE RECORDS SUMMARY | 2022-05-04 10:25 | XMS_ITS | Encounter Summary ---
:1955 Author Organization [facility] Address [address] [place] [address] Care Team Providers Name Role Phone Unavailable Primary Care Provider Unavailable Encounter Details Date Type Department Care Team Description 01/15/2004 Hospital Encounter [facility] Ra kathleen Sharma, P.A.-CNaomi [address] [place] [address] (Wo rk) Social History Tobacco Use [...] How often do you attend jainism or mandaeism More than 4 time s [...] Progress Notes Conversion, Historical Provider Ser - 01/15/2004 1:30 PM CDT [id number] SUBJECTIVE:Colleen is a 48 year old female who presents with 2-3 weeks of fatigue, congestion, fronta l and right maxillary sinus pressure. Her left eye has become swollen and erythematous. SHe has a hi story of psoriasis. No fever.OBJECTIVE:Blood pressure 120/78, pulse 80, temperature 98.4, tempera ture source Tympanic, weight 178 lbs 5 oz (80.882 kg), last menstrual period Postmenopausal.Colleen i s alert and cooperative.Conjunctivae clear, noninjected. Left eye is edematous and with some yellow crusting.Nares patent, noncongested.Oropharynx pink and moist without lesion.Ear canals clear. TM s translucent with normal light reflex and bony landmarks. Neck supple without lymphadenopathy.Lung s CTA bilaterally. Heart with normal S1 and S2 without murmur.ASSESSMENT:acute clinical sinusitis possible psoriasis or seborrhea around the left eyePLAN:Levaquin samples per orders. Supportive and symptomatic cares discussed and encouraged. Discussed trying Elidil on left eye or applying a t hin layer of hydrocortisone 1% cautiously. Source: [facility] RWHXTRANSXSYS Document Id: [id number] documented in this encounter Plan of Treatment Not on filedocumented as of this encounter Visit Diagnoses Not on filedocumented in this encounter
--- OUTSIDE RECORDS SUMMARY | 2022-05-04 10:25 | XMS_ITS | Encounter Summary ---
:1955 Author Organization [facility] Address [address] [place] [address] Care Team Providers Name Role Phone Unavailable Primary Care Provider Unavailable Encounter Details Date Type Department Care Team Description 02/15/2004 Hospital Encounter [facility] Provider, [facility] Social History Tobacco Use Types [...] How often do you attend restorationist or spiritism More than 4 time s [...]
--- OUTSIDE RECORDS SUMMARY | 2022-05-04 10:25 | XMS_ITS | Encounter Summary ---
:1955 Author Organization [facility] Address [address] [place] [address] Care Team Providers Name Role Phone Unavailable Primary Care Provider Unavailable Encounter Details Date Type Department Care Team Description 02/03/2003 Hospital Encounter [facility] DERM Provider, Histori reilly Social History [...] How often do you attend anabaptist or baptist More than 4 time s [...] slept in a long term (including now)? Sex Assigned at Date Recorded [...]
--- OUTSIDE RECORDS SUMMARY | 2022-05-04 10:25 | XMS_ITS | Encounter Summary ---
:1955 Author Organization [facility] Address [address] [place] [address] Care Team Providers Name Role Phone Unavailable Primary Care Provider Unavailable Encounter Details Date Type Department Care Team Description 01/28/2004 Hospital Encounter HX NO MAPPING Provider, Historical [...] or relatives? How often do you attend amish or uatsdin More than 4 time s per year 09/17/2021 services? Do you belong to any clubs or organizations Yes 09/17/2021 such as amish groups, unions, fraternal or athletic groups, or [...]
--- OUTSIDE RECORDS SUMMARY | 2022-05-04 10:26 | XMS_ITS | Encounter Summary ---
:1955 Author Organization [facility] Address [address] [place] [address] Care Team Providers Name Role Phone Unavailable Primary Care Provider Unavailable Encounter Details Date Type Department Care Team Description 11/22/2001 Hospital Encounter HX NO MAPPING Sanjay Georges [...] How often do you attend samaritan or hindu More than 4 time s [...] place to sleep or slept in a jail (including now)? Sex Assigned at Date Recorded Female 05/11/2021 12:39 PM CDT documented as of this encounter Plan of Treatment Not on filedocumented as of this encounter Visit Diagnoses Not on filedocumented in this encounter
--- OUTSIDE RECORDS SUMMARY | 2022-05-04 10:26 | XMS_ITS | Encounter Summary ---
:1955 Author Organization [facility] Address [address] [place] [address] Care Team Providers Name Role Phone Unavailable Primary Care Provider Unavailable Encounter Details Date Type Department Care Team Description 06/05/2002 Hospital Encounter HX NO MAPPING Shivam Reaves M.D. Social History Tobacco Use Types Packs/Day [...] How often do you attend baptist or sabianist More than 4 time s [...]
--- OUTSIDE RECORDS SUMMARY | 2022-05-04 10:26 | XMS_ITS | Encounter Summary ---
:1955 Author Organization [facility] Address [address] [place] [address] Care Team Providers Name Role Phone Unavailable Primary Care Provider Unavailable Encounter Details Date Type Department Care Team Description 10/31/2001 Hospital Encounter HX NO MAPPING Provider, Historical [...] or relatives? How often do you attend zoroastrian or latter day More than 4 time s per year 09/17/2021 services? Do you belong to any clubs or organizations Yes 09/17/2021 such as zoroastrian groups, unions, fraternal or athletic groups, or [...] Miscellaneous - Conversion, Historical Provider Ser - 10/31/2001 12:00 AM [employer] [id number] Addended by: DONAVAN CONTE on: 11/07/2001,3:06 PMModules accepted: Order SummaryAddended by: DONAVAN KHAN on: 11/04/2001,10:25 AMModules accepted: Order Summary*-*-*-*-* SEE SCANNED REPORT *-*-*- *-* Source: [facility] RWHXTRANSXSYS Document Id: [id number] documented in this encounter Plan of Treatment Not on filedocumented as of this encounter Visit Diagnoses Not on filedocumented in this encounter
--- OUTSIDE RECORDS SUMMARY | 2022-05-04 10:26 | XMS_ITS | Encounter Summary ---
:1955 Author Organization [facility] Address [address] [place] [address] Care Team Providers Name Role Phone Unavailable Primary Care Provider Unavailable Encounter Details Date Type Department Care Team Description 11/04/2002 Hospital Encounter [facility] DERM Provider, Histori reilly Social [...] How often do you attend holiness or christianity More than 4 time s [...]
--- OUTSIDE RECORDS SUMMARY | 2022-05-04 10:26 | XMS_ITS | Encounter Summary ---
:1955 Author Organization [facility] Address [address] [place] [address] Care Team Providers Name Role Phone Unavailable Primary Care Provider Unavailable Encounter Details Date Type Department Care Team Description 12/17/2001 Hospital Encounter HX [facility] Poonam Mosley ra, R.N. [address] [place], [place] [address] Social History Tobacco Use Types Packs/Day Years [...] or relatives? How often do you attend advent or yarsanism More than 4 time s per year 09/17/2021 services? Do you belong to any clubs or organizations Yes 09/17/2021 such as advent groups, unions, fraternal or athletic groups, or [...] Encounter - Conversion, Historical Provider Ser - 12/17/2001 12:00 AM CDT [id number] >> CROW Luevano Dec 17, 2001 12:19 PM >> CALL RECEIVED. Contact: cam walker dispensed to patient per dr. wu for follow up care of left ankle fracture. Source: [facility] RWHXTRANSXSYS Document Id: [id number] documented in this encounter Plan of Treatment Not on filedocumented as of this encounter Visit Diagnoses Not on filedocumented in this encounter
--- OUTSIDE RECORDS SUMMARY | 2022-05-04 10:26 | XMS_ITS | Encounter Summary ---
:1955 Author Organization [facility] Address [address] [place] [address] Care Team Providers Name Role Phone Unavailable Primary Care Provider Unavailable Encounter Details Date Type Department Care Team Description 01/07/2002 Hospital Encounter HX [facility] Poonam Almazan ra, RNaomiNNaomi [address] [place], [place] [address] Social History Tobacco Use [...] How often do you attend uatsdin or synagogue More than 4 time s [...] Progress Notes Conversion, Historical Provider Ser - 01/07/2002 12:00 AM CDT [id number] Addended by: CORY VAZ on: 01/08/2002,3:23 PMModules accepted: Order Summarypt had xray done an d air cast was dispensed to pt per dr. wu. [facility] Document Id: [id number] documented in this encounter Plan of Treatment Not on filedocumented as of this encounter Visit Diagnoses Not on filedocumented in this encounter
--- OUTSIDE RECORDS SUMMARY | 2022-05-04 10:26 | XMS_ITS | Encounter Summary ---
:1955 Author Organization [facility] Address [address] [place] [address] Care Team Providers Name Role Phone Unavailable Primary Care Provider Unavailable Encounter Details Date Type Department Care Team Description 01/10/2002 Hospital Encounter [facility] Social History Tobacco Use Types Packs/Day [...] How often do you attend synagogue or hinduism More than 4 time s [...]
--- OUTSIDE RECORDS SUMMARY | 2022-05-04 10:26 | XMS_ITS | Encounter Summary ---
:1955 Author Organization [facility] Address [address] [place] [address] Care Team Providers Name Role Phone Unavailable Primary Care Provider Unavailable Encounter Details Date Type Department Care Team Description 06/04/2002 Hospital Encounter [facility]X [facility] Provider, [place] [facility] Social History Tobacco Use Types [...] often do you attend oriental orthodox or anglican More than 4 time s [...] Encounter - Conversion, Historical Provider Ser - 06/04/2002 12:00 AM CDT [id number] >> MARKIE CHILDRESS SunJun 04, 2002 12:49 PM >> CALL RECEIVED. Contact: I called, left message re the chol, and pap. Source: [facility] UNITHXTRANSXSYS Document Id: [id number] documented in this encounter Plan of Treatment Not on filedocumented as of this encounter Visit Diagnoses Not on filedocumented in this encounter
--- OUTSIDE RECORDS SUMMARY | 2022-05-04 10:26 | XMS_ITS | Encounter Summary ---
:1955 Author Organization [facility] Address [address] [place] [address] Care Team Providers Name Role Phone Unavailable Primary Care Provider Unavailable Encounter Details Date Type Department Care Team Description 12/17/2001 Hospital Encounter HX [facility] Iraj Chow M.D. [address] [place], [place] [address] Social History Tobacco Use Types Packs/Day Years [...] How often do you attend zoroastrianism or shinto More than 4 time s [...] Progress Notes Conversion, Historical Provider Ser - 12/17/2001 11:45 AM CDT [id number] Addended by: CORY VAZ on: 12/25/2001,2:21 PMModules accepted: Order Summary, Progress Notes, Elizabeth rinaldi LOSAddended by: GIBRAN CASAS on: 12/24/2001,2:25 PM Comment: TranscriptionModules accep torrie: Progress Notesdictation done Colleen is approximately 3 weeks out from a re- operation on a bi -malleolar type ankle fracture dislocation. She had to have a re-plating done of the fibula.X-rays taken today out of her cast appear to show very good position. She was placed in a Cam walker and i nstructed on partial weight bearing as tolerated, progressing towards full weight bearing as tolerate d. She will see us again for a repeat x-ray 4 weeks from now.Iraj Mobley M.D./Balbina: 2001T: 12/24/2001 Source: [facility] RWMCHXTRANSXSYS Document Id: [id number] documented in this encounter Plan of Treatment Not on filedocumented as of this encounter Visit Diagnoses Not on filedocumented in this encounter
--- OUTSIDE RECORDS SUMMARY | 2022-05-04 10:26 | XMS_ITS | Encounter Summary ---
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 Grabiel orozco M.D.Room No. [id number], YVONNE : 54PROCEDURE/OPERATIVE REPORTPREOP ERATIVE DIAGNOSIS:Left ankle fracture, loss of fixation. POSTOPERATIVE DIAGNOSIS:Left ankle frac ture, loss of fixation.PROCEDURE: REMOVAL OF FIXATION SCREWS AND REPLATING WITH A ONE-THIRD ОЛЕГ ITUBULAR PLATEAnesthesia: General. PROCEDURE: The patient was brought to the operating room and positioned where anesthesia was administered. Following this the patient's leg was sterilely preppe d and draped. The tourniquet applied proximally was then inflated. After positioning the previous in cision was opened. This was carried down through the skin and subcutaneous tissues. The fibrous tis karena was developed to expose the fracture site. The three screws were then removed without difficulty . The fracture site was mobilized. Following this it was reduced anatomically and held in position with bone reduction forceps. A one-third semitubular plate was then selected with six holes. This w as prebent to form the shape of the fibula. This was then applied and held in position. Following th is drill holes were placed with measurement of the screws obtaining excellent purchase.X-rays showed very good reduction. After this was accomplished the patient was noted to have two screws that were excessive in length in the distal parts. These were removed and replaced. The incisions were then cl osed with Vicryl and nylon. Marcaine was infiltrated the patient was placed in the postoperative U s plint cast. She was then released from the tourniquet, awakened from anesthesia and brought to the r ecovery room in satisfactory condition having tolerated the surgery well. ROBLES:[id number]. 11-26 Zelda Georges M.D. Source: [facility] RWHXTRANSXSYS Document Id: [id number] documented in this encounter Plan of Treatment Not on filedocumented as of this encounter Visit Diagnoses Not on filedocumented in this encounter
--- OUTSIDE RECORDS SUMMARY | 2022-05-04 10:26 | XMS_ITS | Encounter Summary ---
:1955 Author Organization [facility] Address [address] [place] [address] Care Team Providers Name Role Phone Unavailable Primary Care Provider Unavailable Encounter Details Date Type Department Care Team Description 06/03/2002 Hospital Encounter HX [facility] Provider, Historic al Social History Tobacco Use [...] How often do you attend religion or scientologist More than 4 time s per year [...] Encounter - Conversion, Historical Provider Ser - 06/03/2002 12:00 AM CDT [id number] >> COLLEEN Luevano Jun 03, 2002 10:59 AM >> CALL RECEIVED. Contact: opened in error [facility] Document Id: [id number] documented in this encounter Plan of Treatment Not on filedocumented as of this encounter Visit Diagnoses Not on filedocumented in this encounter
--- OUTSIDE RECORDS SUMMARY | 2022-05-04 10:26 | XMS_ITS | Encounter Summary ---
:1955 Author Organization [facility] Address [address] [place] [address] Care Team Providers Name Role Phone Unavailable Primary Care Provider Unavailable Encounter Details Date Type Department Care Team Description 09/26/2002 Hospital Encounter HX [facility] Provider, Ct storical Social History Tobacco Use Types Packs/Day [...] How often do you attend gnosticist or mandaen More than 4 time s [...]
--- OUTSIDE RECORDS SUMMARY | 2022-05-04 10:26 | XMS_ITS | Encounter Summary ---
:[address] [facility] Address [address] [place] [address] Care Team Providers Name Role Phone Unavailable Primary Care Provider Unavailable Encounter Details Date Type Department Care Team Description 11/21/2001 Hospital Encounter [facility]X [facility] Sanjay Georges M .D. 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 She was seen about 2 weeks ago. In the interim, the individual has had n o particular problems. However, the x-rays obtained today demonstrate a further widening of the mort is. I reviewed this with Dr. Mobley. Concurrent opinion is that further surgery to repair this wo uld be indicated. The patient was assessed of this. She will be scheduled for tomorrow's add-on celestino edule and follow up per plan.Sanjay Georges M.D./Balbina: 11-22-01T: 11-27-01 Source: [facility] RWMCHXTRANSXSYS Document Id: [id number] documented in this encounter Plan of Treatment Not on filedocumented as of this encounter Visit Diagnoses Not on filedocumented in this encounter
--- OUTSIDE RECORDS SUMMARY | 2022-05-04 10:26 | XMS_ITS | Encounter Summary ---
:1955 Author Organization [facility] Address [address] [place] [address] Care Team Providers Name Role Phone Unavailable Primary Care Provider Unavailable Encounter Details Date Type Department Care Team Description 11/08/2001 Hospital Encounter [facility] Sanjay Georges M .D. Social [...] How often do you attend advent or yazdanism More than 4 time s [...] Progress Notes Conversion, Historical Provider Ser - 11/08/2001 1:30 PM CST [id number] Addended by: CORY VAZ on: 12/25/2001,2:10 PMModules accepted: Order Summary, Progress NotesAdd ended by: BELLA FRANCO on: 11/18/2001,10:32 AM Comment: tranxModules accepted: Progress Notes Colleen Tolentino [id number] 11-08-01The individual is here for a follow up of her ankle fractu re dislocation. She is S/P ORIF and ligament repair. She is doing reasonably well. Has not sustained any injuries although she did bump the side of her leg on a step but it was rather mild by her descr iption. ON EXAMINATION: Clinically the incision is healing nicely. Sutures are removed. The patie nt had x-rays obtained today which shows maintenance of good position. However, the screws have boby ed out of their position on the fibula and there is a slight separation but no real shortening. I be lieve the alignment is still acceptable. The patient was assessed of this. At the present time we w ill put her in a short leg fiberglass nonweight bearing cast and she will follow up in about 2 weeks with repeat x-rays.Sanjay Georges M.D./Balbina: 11-08-01T: 11-15-01 Source: [facility] RWHXTRANSXSYS Document Id: [id number] documented in this encounter Plan of Treatment Not on filedocumented as of this encounter Visit Diagnoses Not on filedocumented in this encounter
--- OUTSIDE RECORDS SUMMARY | 2022-05-04 10:26 | XMS_ITS | Encounter Summary ---
:1955 Author Organization [facility] Address [address] [place] [address] Care Team Providers Name Role Phone Unavailable Primary Care Provider Unavailable Encounter Details Date Type Department Care Team Description 01/07/2002 Hospital Encounter HX [facility] Iraj Chow M.D. [address] [place], [place] [address] Social History Tobacco Use [...] How often do you attend taoism or nondenominational More than 4 time s [...] Notes Conversion, Historical Provider Ser - 01/07/2002 11:30 AM CDT [id number] Addended by: ORLIN MUHAMMAD on: 01/10/2002,10:15 AM Comment: TranscriptionModules accepted: Pr ogress NotesAddended by: CORY VAZ on: 01/08/2002,3:22 PMModules accepted: Order Summary, Chang hansen LOSdictation done Colleen is now about six weeks out from her reoperation for the left ankle fra cture.X-rays taken today show excellent position of the fibular fracture and good incorporation of the fracture fragments. She is bearing weight in a fracture brace without discomfort. We have a dvised her to wean herself from that and switch over to the use of an air cast sometime in the next c ouple of weeks and then a couple of weeks hence to begin to wean herself from the air cast. I have w ritten her a note that would allow her to return to full duties at work as of February 03, and she can be seen, I think, on a prn basis at this point. Iraj Mobley M.D./rvD: 2T: 01/10/2002 Source: [facility] RWHXTRANSXSYS Document Id: [id number] documented in this encounter Plan of Treatment Not on filedocumented as of this encounter Visit Diagnoses Not on filedocumented in this encounter
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
--- OUTSIDE RECORDS SUMMARY | 2022-05-04 10:26 | XMS_ITS | Encounter Summary ---
:1955 Author Organization [facility] Address [address] [place] [address] Care Team Providers Name Role Phone Unavailable Primary Care Provider Unavailable Encounter Details Date Type Department Care Team Description 11/07/2002 Hospital Encounter [facility] Social History Tobacco Use Types Packs/Day [...] How often do you attend confucianist or sabianism More than 4 time s per year [...] Progress Notes Conversion, Historical Provider Ser - 11/07/2002 11:00 AM CST [id number] Came in for punch biopsy. Has psoriasis vs contact derm, and has been seeing Dr. Rubio who recommende d a punch biopsy from her hand.Dr. Rubio had sent her with a spec container, a form, and an envelope to sent the spec in.After informed consent, I did a 4 mm punch biopsy from the R. hypothenar eminenc e, after proper cleansing, and infiltration of lidocaine with epi. One stitch of 4-0 ethilon was ruchi nellie to keep the wound edges together. Dressed it. Discussed what to expect with healing. Asked she re turn 8-9 days for suture removal, or she can have one of the nurses in [facility] remove it, where Tiago hansen works. [facility] Document Id: [id number] documented in this encounter Plan of Treatment Not on filedocumented as of this encounter Visit Diagnoses Not on filedocumented in this encounter
--- OUTSIDE RECORDS SUMMARY | 2022-05-04 10:26 | XMS_ITS | Encounter Summary ---
:1955 Author Organization [facility] Address [address] [place] [address] Care Team Providers Name Role Phone Unavailable Primary Care Provider Unavailable Encounter Details Date Type Department Care Team Description 03/26/2002 Hospital Encounter [facility] Social History Tobacco Use Types Packs/Day [...] How often do you attend jewish or christian More than 4 time s [...] Encounter - Conversion, Historical Provider Ser - 03/26/2002 12:00 AM CDT [id number] >> MARKIE CHILDRESS SunMar 26, 2002 4:10 PM >> CALL RECEIVED. Contact: antoni bush has returned Source: [facility] RWHXTRANSXSYS Document Id: [id number] documented in this encounter Plan of Treatment Not on filedocumented as of this encounter Visit Diagnoses Not on filedocumented in this encounter
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
--- OUTSIDE RECORDS SUMMARY | 2022-05-04 10:26 | XMS_ITS | Encounter Summary ---
:1955 Author Organization [facility] Address [address] [place] [address] Care Team Providers Name Role Phone Unavailable Primary Care Provider Unavailable Encounter Details Date Type Department Care Team Description 11/29/2001 Hospital Encounter [facility] Sanjay Georges M .D. Social [...] How often do you attend taoism or voodoo More than 4 time s [...] Progress Notes Conversion, Historical Provider Ser - 11/29/2001 4:30 PM CDT [id number] Addended by: CORY VAZ on: 12/25/2001,2:19 PMModules accepted: Order Summary, Progress Rigoberto Elizabeth rinaldi LOSAddended by: DERICK GANDHI on: 12/06/2001,8:47 AM Comment: Group Controller.Modules accepted : Progress FelicitaColleen reyes [id number] 11-29-01The individual presents for follow up of h er ankle fracture, S/P ORIF. She is doing reasonably well at this point. Has a bit more discomfort f ollowing this second surgery. The individual's x-rays obtained today demonstrate very good position. The individual after discussion and removal of the sutures, was placed in a short leg fiberglass no nweight bearing cast. She will follow up in 2 weeks time for change to a walking cast vs a Cam boot. Sanjay Georges M.D./Balbina: 11-29-01T: 12-04-01 Source: [facility] RWHXTRANSXSYS Document Id: [id number] documented in this encounter Plan of Treatment Not on filedocumented as of this encounter Visit Diagnoses Not on filedocumented in this encounter
--- OUTSIDE RECORDS SUMMARY | 2022-05-04 10:26 | XMS_ITS | Encounter Summary ---
:1955 Author Organization [facility] Address [address] [place] [address] Care Team Providers Name Role Phone Unavailable Primary Care Provider Unavailable Encounter Details Date Type Department Care Team Description 05/26/2002 Hospital Encounter [facility] Provider, Historic al Social History [...] How often do you attend amish or restorationism More than 4 time s [...]
--- OUTSIDE RECORDS SUMMARY | 2022-05-04 10:26 | XMS_ITS | Encounter Summary ---
:1955 Author Organization [facility] Address [address] [place] [address] Care Team Providers Name Role Phone Unavailable Primary Care Provider Unavailable Encounter Details Date Type Department Care Team Description 07/15/2001 Hospital Encounter HX [facility] Ramesh Fuentes M.D. Social History Tobacco Use Types Packs/Day [...] How often do you attend worship or mandaeism More than 4 time s [...] Encounter - Conversion, Historical Provider Ser - 07/15/2001 12:00 AM CST [id number] >> RAMESH PATINO Mon Jul 15, 2001 11:11 AM Mehrdad canas >> COLLEEN TILLMAN Mon Jul 15, 2001 9:50 AM >> CALL RECEIVED. Contact: Accepting this Rx will FAX it directly to the pharmacy. hot flashes interupting sleep. Source: [facility] RWHXTRANSXSYS Document Id: [id number] documented in this encounter Plan of Treatment Not on filedocumented as of this encounter Visit Diagnoses Not on filedocumented in this encounter
--- OUTSIDE RECORDS SUMMARY | 2022-05-04 10:26 | XMS_ITS | Encounter Summary ---
:1955 Author Organization [facility] Address [address] [place] [address] Care Team Providers Name Role Phone Unavailable Primary Care Provider Unavailable Encounter Details Date Type Department Care Team Description 10/30/2001 Hospital Encounter HX NO MAPPING Provider, Historical [...] How often do you attend protestant or rastafari More than 4 time s per year [...] Miscellaneous - Conversion, Historical Provider Ser - 10/30/2001 12:00 AM VISUALIZER [id number] Abstracted by NATALY Baster Hand on 11/05/[address] [id number].Jacobo Berry M.D.[facility]. [facility] Number: [id number], YVONNE : [id number] TION/HISTORY AND PHYSICALCHIEF COMPLAINT: Fall with left ankle pain and trimalleolar fracture. HISTORY OF PRESENT ILLNESS: Patient is a 46-year-old female who slipped while going to work today. She fell onto her left side, had ankle pain and swelling at that time. In the emergency room x-ray s howing a trimalleolar fracture of the left ankle. She will be seen by Dr. Georges later this afternoon and contemplating surgery thereafter for ORIF. Patient states that otherwise she is feeling well wit h the exception of some mild discomfort in the left ankle. She has received Toradol for discomfort a nd received Fentanyl in the emergency room. She denies any chronic underlying medical illnesses. Sh e has had no recent upper respiratory type symptoms. No fever or chills. No chest pain or shortness of breath. No GI or concerns. She has had several minor surgeries in the past without any diffi culty. No bleeding difficulties or difficulty with anesthesia. PAST MEDICAL HISTORY: No chronic u nderlying medical illnesses. Congenital hip dysplasia without sequelae. History of right wrist frac ture times two without ORIF. Tendon release on the right hand. Status post tonsillectomy. [place] t ooth extraction. MEDICATIONS: Celebrex 100 mg daily. Aspirin 81 mg daily. She takes Valerian and [employer]'s Wort. ALLERGIES: CEFTIN causing hives and facial swelling. SOCIAL HISTORY: Patient is . 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 She does not smoke or drink alcohol. Minimal ca ffeine. She is . No children. In the process of adoption. FAMILY HISTORY: Father with p rostatic carcinoma and coronary artery disease. REVIEW OF SYSTEMS: HEENT: Negative. RESPIRATORY : Negative. CARDIOVASCULAR: Negative. GI: Negative. : Negative. MS: As above. PSYCHIATRI C: Negative. NEURO: Negative. HEMATOLOGIC: Negative. PHYSICAL EXAMINATION: Temperature 98.2. Pulse 116. Respirations 20. Blood pressure was 159/82 and oxygen saturations 100% on room air. HE ENT: Pupils equal, round, reactive to light. Conjunctiva are clear. Fundi are sharp. Tympanic mem branes are benign. Posterior pharynx is pink without erythema. NECK: Supple, no masses. LUNGS: C lear. CARDIOVASCULAR: Regular rate and rhythm. BREASTS: Not done. ABDOMEN: Soft, nontender, no masses. BACK: Without CVA tenderness. GENITALIA: Not done. MS: Slight swelling of the left lowe r leg and ankle with a ankle wrap and splint in place. Right lower extremity without edema. NEURO: Nonfocal. CBC normal. Basic metabolic normal. Urinalysis is negative. Coags normal. EKG norm al sinus rhythm. Chest x-ray without acute process. ASSESSMENT AND PLAN: 46-year-old female with left ankle fracture. Tentatively scheduled for ORIF to be performed by Dr. Georges later this evening. At this time she is cleared for surgery. Will continue with Toradol and Demerol for pain. KIMBERLY/ [id number]. 10-31-01 Elijah Berry M.D. Source: [facility] RWHXTRANSXSYS Document Id: [id number] documented in this encounter Plan of Treatment Not on filedocumented as of this encounter Visit Diagnoses Not on filedocumented in this encounter
--- OUTSIDE RECORDS SUMMARY | 2022-05-04 10:26 | XMS_ITS | Encounter Summary ---
:1955 Author Organization [facility] Address [address] [place] [address] Care Team Providers Name Role Phone Unavailable [...] How often do you attend religion or confucianism More than 4 time s [...] Historical Provider Ser - 10/31/2001 12:00 AM BUGGY OPERATOR [id number] Abstracted by NATALY Rooney on [address] [place], [place] [id number] [place], [place] [id number] .Grabiel Georges M.D.Room [facility]. [facility] Number: [id number], Yvonne : [id number] CEDURE/OPERATIONPREOPERATIVE DIAGNOSIS: Left ankle trimalleolar fracture dislocation. POSTOPERA TIVE DIAGNOSIS: Left ankle trimalleolar fracture dislocation. OPERATION: CLOSED REDUCTION AND O PEN REDUCTION, INTERNAL FIXATION OF THE FIBULA AND SOFT TISSUE REPAIR OF THE MEDIAL COMPLEXANESTHESIA: GENERALSURGEON: EICHPROCEDURE: Patient was br ought to the operating room and positioned where anesthesia was administered. Following completion o f this the leg was then sterilely prepped and draped. After elevation and exsanguination the tourniq uet was inflated. Following this the dislocation was reduced. A linear incision was made laterally. This was carried down through the skin and subcutaneous tissues. The area of the fracture was iden tified. The fracture was then reduced and held in position. Oblique screws were placed obtaining ex cellent purchase and anatomic judaism. The medial side was approached. The ankle talus was jean gn with no obvious cartilage injuries. The area was irrigated. There was extensive ligament damage however on the deltoid and anterior medial corner. There was some displacement of the posterior tend ons as well, but they appeared to be unharmed. There was a small fragment off the posterior tibia wh ich had to be reduced with reduction of the lateral side. The patient had the soft tissue repaired w ith interrupted and running #1 Vicryl suture and 2-0 Vicryl. This allowed for excellent stability. After further irrigation, the wounds were then closed with subcu Vicryl and nylon for skin closure. Marcaine was infiltrated. The patient was then placed in a postoperative splint cast. She was relea sed from the tourniquet and brought to the recovery room in satisfactory condition having tolerated t he procedure well. MARGARET/[id number]. 12-15-01 Chico Georges M.D. Source: [facility] RWHXTRANSXSYS Document Id: [id number] documented in this encounter Plan of Treatment Not on filedocumented as of this encounter Visit Diagnoses Not on filedocumented in this encounter
--- OUTSIDE RECORDS SUMMARY | 2022-05-04 10:26 | XMS_ITS | Encounter Summary ---
:1955 Author Organization [facility] Address [address] [place] [address] Care Team Providers Name Role Phone Unavailable Primary Care Provider Unavailable Encounter Details Date Type Department Care Team Description 01/30/2002 Hospital Encounter [facility] Danya Salinas M.D. [address] [place] [address] (Wo rk) Social History Tobacco [...] Encounter - Conversion, Historical Provider Ser - 01/30/2002 12:00 AM CDT [id number] >> COLLEEN TILLMAN [facility] Jan 30, 2002 9:06 AM >> CALL RECEIVED. Contact: Accepting this Rx will FAX it directly to the pharmacy. thank you Danya. Source: [facility] RWHXTRANSXSYS Document Id: [id number] documented in this encounter Plan of Treatment Not on filedocumented as of this encounter Visit Diagnoses Not on filedocumented in this encounter
--- OUTSIDE RECORDS SUMMARY | 2022-05-04 10:26 | XMS_ITS | Encounter Summary ---
:[address] [facility] Address [address] [place] [address] Care Team Providers Name Role Phone Unavailable Primary Care Provider Unavailable Encounter Details Date Type Department Care Team Description 01/29/2002 Hospital Encounter [facility] Social History Tobacco Use Types Packs/Day Years [...] often do you attend jehovah's witness or orthodoxy More than 4 time s [...]
--- OUTSIDE RECORDS SUMMARY | 2022-05-04 10:26 | XMS_ITS | Encounter Summary ---
:1955 Author Organization [facility] Address [address] [place] [address] Care Team Providers Name Role Phone Unavailable Primary Care Provider Unavailable Encounter Details Date Type Department Care Team Description 10/02/2002 Hospital Encounter [facility]X [facility] Provider, Histori reilly Social History [...] How often do you attend yarsani or zoroastrianism More than 4 time s [...]
--- OUTSIDE RECORDS SUMMARY | 2022-05-04 10:26 | XMS_ITS | Encounter Summary ---
:1955 Author Organization [facility] Address [address] [place] [address] Care Team Providers Name Role Phone Unavailable Primary Care Provider Unavailable Encounter Details Date Type Department Care Team Description 07/08/2002 Hospital Encounter [facility]X [facility] Provider, His torical Social History Tobacco [...] How often do you attend mormonism or catholic More than 4 time s [...] Progress Notes Conversion, Historical Provider Ser - 07/08/2002 9:30 AM CST [id number] Addended by: CORY VAZ on: 07/14/2002,12:47 PMModules accepted: Order Summary, Progress NotesYv germain Tolentino presents to clinic for fruit picker of orthotics. Colleen states her feet are feeling bet ter after the treatment of stretching, iceing and useing anti-inflammatories. she states she has les s pain in the heel now. O: the orthotics were fit just proximal to the metatarsal heads bilaterall y and fit well to the arch bilaterally. Pt walked in then with no pain or problems.A: plantar fasc itiscongenital flat feetP: orthotics were dispensed for feet bilaterally. Pt will rtc with any pr oblems or questions. Source: [facility] RWHXTRANSXSYS Document Id: [id number] documented in this encounter Plan of Treatment Not on filedocumented as of this encounter Visit Diagnoses Not on filedocumented in this encounter
--- OUTSIDE RECORDS SUMMARY | 2022-05-04 10:26 | XMS_ITS | Encounter Summary ---
:1955 Author Organization [facility] Address [address] [place] [address] Care Team Providers Name Role Phone Unavailable Primary Care Provider Unavailable Encounter Details Date Type Department Care Team Description 07/15/[address] [facility] Silvia Fuentes M.D. Social History Tobacco Use Types [...] How often do you attend sabianism or gnosticist More than 4 time s [...]
--- OUTSIDE RECORDS SUMMARY | 2022-05-04 10:26 | XMS_ITS | Encounter Summary ---
:1955 Author Organization [facility] Address [address] [place] [address] Care Team Providers Name Role Phone Unavailable Primary Care Provider Unavailable Encounter Details Date Type Department Care Team Description 10/31/2001 - Hospital Encounter HX NO MAPPING Sanjay Georges M.D. 11/01/2001 Social History Tobacco Use Types Packs/Day Years [...] How often do you attend faith or buddhism More than 4 time s [...]
--- OUTSIDE RECORDS SUMMARY | 2022-05-04 10:26 | XMS_ITS | Encounter Summary ---
:1955 Author Organization [facility] Address [address] [place] [address] Care Team Providers Name Role Phone Unavailable [...] How often do you attend congregational or taoism More than 4 time s per year [...] Historical Provider Ser - 10/31/2001 12:00 AM FUNERAL HOME GENERAL MANAGER [id number] Abstracted by NATALY Physical Education Professor on [address] [place], [place] [id number] [place], [place] [id number] .A. Eich, M.D.[facility]. [facility] Number: [id number], YVONNE : [id number] IONThe individual is an active 46-year-old woman who works at the [employer]. On t he day of admission she was outside, slipped on some ice crashing very awkwardly and falling basicall y on her left ankle. She had immediate pain and inability to bear weight, therefore she had to crawl towards the house to summon help. She was subsequently brought to the emergency room for evaluation with an ankle injury. She was seen there in mild discomfort. The patient had no other injuries luiz t she complained about. The lower extremity demonstrates the individual to have a fracture dislocati on trimalleolar ankle injury. There is no apparent injury to the talus outside of displacement. The re is a small fragment of posterior tibia with a displaced and angulated fibula and a chip off the me dial malleolar area. CMS otherwise was good. IMPRESSION: Left ankle trimalleolar fracture disloc ation, closed. DISPOSITION: The patient is recommended to undergo surgical management as soon as the schedule will allow. In the meantime she will be elevated and compressed. She will follow up per plan. MARGARET/[id number]. 12-15-01 Chico Georges M.D. Source: [facility] RWHXTRANSXSYS Document Id: [id number] documented in this encounter Plan of Treatment Not on filedocumented as of this encounter Visit Diagnoses Not on filedocumented in this encounter
--- OUTSIDE RECORDS SUMMARY | 2022-05-04 10:28 | XMS_ITS | Encounter Summary ---
:1955 Author Organization [facility] Address [address] [place] [address] Care Team Providers Name Role Phone Irina Pham APRN, JOE Primary Care Provider [phone] Reason for Visit Reason Comments Blood Pressure Check Encounter Details Date Type Department Care Team Description 10/03/2019 Clinical Support [place] [address] [place], [place] [address] Social History Tobacco Use Types Packs/Day Years Used Date Never Smoker Smokeless Tobacco: Never Used Alcohol Use Standard Drinks/Week Comments No 0 (1 standard drink = 0.6 oz pure alcoho l) Alcohol Habits Answer Date Recorded How often do you have a drink containing alcohol? Never 04/29/2020 How many drinks containing alcohol do you have on a typical Not asked day when you are drinking? How often do you have six or more drinks on one occasion? No t asked Comment: Not asked Sex Assigned at Date Recorded Not on file documented as of this encounter Last Filed Vital Signs Vital Sign Reading Time Taken Comments Blood Pressure 139/70 10/03/2019 2:51 PM CHIEF CLERK SHELTER Pulse 78 10/03/2019 2:51 PM CHIEF CLERK SHELTER Temperature - - Respiratory Rate - - Oxygen Saturation - - Inhaled Oxygen Concentration - - Weight - - Height - - Body Mass Index - - documented in this encounter Plan of Treatment Not on filedocumented as of this encounter Visit Diagnoses Not on filedocumented in this encounter Care Teams Process Helper Relationship Specialty Start Date End Date Irina Pham APRN, RELATIONS DIRECTOR PCP - General Family Medicine 07/29/18 04/18/20 [address] [place] [address] documented as of this encounter
--- OUTSIDE RECORDS SUMMARY | 2022-05-04 10:28 | XMS_ITS | Encounter Summary ---
:1955 Author Organization [facility] Address [address] [place] [address] Care Team Providers Name Role Phone Shelley Porter MD Primary Care Provider Unavailable Reason for Visit Reason Onset Date Comments Med Refill 01/25/2021 Encounter Details Date Type Department Care Team Description 01/25/2021 Refill Shelley Bates, Essential hypertension [address] [place] [address] Social History Tobacco Use Types Packs/Day Years [...] on file documented as of this encounter Miscellaneous Notes Telephone Encounter - Tonya Ji RN - 01/25/2021 2:15 PM CDT Pt needing Lisinopril 2.5 mg renewed. Note popped up that this medication dose was not on her formulary. documented in this encounter Plan of Treatment Not on filedocumented as of this encounter Visit Diagnoses Diagnosis Essential hypertension Unspecified essential hypertension documented in this encounter Care Teams Cable Installer Repairer Helper Relationship Specialty Start Date End Date Shelley Porter MD PCP - General Family Medicine 04/19/20 documented as of this encounter
--- OUTSIDE RECORDS SUMMARY | 2022-05-04 10:28 | XMS_ITS | Encounter Summary ---
:1955 Author Organization [facility] Address [address] [place] [address] Care Team Providers Name Role Phone Irina Pham COMMUNICATIONS BILLING ANALYST, PATHOLOGIST ASSISTANT Primary Care Provider [phone] Reason for Visit Reason Onset Date Comments fax 06/12/2019 Encounter Details Date Type Department Care Team Description 06/12/2019 Telephone [place] Irina Pham, fax [address] COMMUNICATIONS BILLING ANALYST, PATHOLOGIST ASSISTANT [place], [place] [address] [address] [phone] [place], [place] [address] Social History Tobacco Use Types Packs/Day Years [...] this encounter Miscellaneous Notes Telephone Encounter - Ana Mckenna - 06/23/2019 1:58 PM CST Referral and face sheet faxed to [facility] radiology as requested. TICE REPRESENTATIVE Telephone Encounter - Yuki Cornejo RN - 06/23/2019 1:47 PM CST Please refax referral. TICE REPRESENTATIVE Telephone Encounter - Anabel Kimbrough LPN - 06/12/2019 11:49 AM CDT noted Telephone Encounter - Ana Mckenna - 06/12/2019 11:20 AM CDT Referral and face sheet faxed to [facility] radiology as requested. Telephone Encounter - Yuki Cornejo RN - 06/12/2019 11:09 AM CDT Please fax order to [place] [facility] L[facility]pez. documented in this encounter Plan of Treatment Not on filedocumented as of this encounter Visit Diagnoses Not on filedocumented in this encounter Care Teams Welding Equipment Repairer Supervisor Relationship Specialty Start Date End Date Irina Pham, COMMUNICATIONS BILLING ANALYST, PATHOLOGIST ASSISTANT PCP - General Family Medicine 07/29/18 04/18/[address] [place] [id number] documented as of this encounter
--- OUTSIDE RECORDS SUMMARY | 2022-05-04 10:28 | XMS_ITS | Encounter Summary ---
:1955 Author Organization [facility] Address [address] [place] [address] Care Team Providers Name Role Phone Shelley Porter MD Primary Care Provider Unavailable Reason for Visit Reason Onset Date Comments med refills 01/25/2021 Encounter Details Date Type Department Care Team Description 01/25/2021 Telephone Shelley Bates MD med refills [address] [place] [address] Social History Tobacco Use Types Packs/Day Years [...] Telephone Encounter - Tonya Ji RN - 01/26/2021 8:00 AM CDT Pt and I discussed this on another note, pt aware there is a lab order in for her, pt asks to come back in 2020 Telephone Encounter - Katharina Teresa - 01/25/2021 1:27 PM CDT Patient stopped in for a BP check and to let Dr. Porter know that she is out of refills on her medication. She saw provider last April to establish care. Does she need another appointment by April and can provider refill meds until then? documented in this encounter Plan of Treatment Not on filedocumented as of this encounter Visit Diagnoses Not on filedocumented in this encounter Care Teams Line Servicer Relationship Specialty Start Date End Date Shelley Porter MD PCP - General Family Medicine 04/19/20 documented as of this encounter
--- OUTSIDE RECORDS SUMMARY | 2022-05-04 10:28 | XMS_ITS | Clinical Summary ---
:1955 Author Organization [facility] Address [address] [place] [address] Care Team Providers Name Role Phone None, Pcp Primary Care Provider Unavailable Allergies Active Allergy Reactions Severity Noted Date Comments Cefuroxime Hives Low 06/27/2012 Medications Medication Sig Dispensed Refills Start Date End Date Status aspirin 81 MG chewable Chew 1 tablet 1 0 Active tablet (one) time each day omega-3 (FISH OIL) 1200 Take 1 capsule 0 Active MG capsule by mouth 1 (one) time each day cholecalciferol (VITAMIN Take 2,000 Units 0 Active D-3) 25 MCG (1000 UT) by mouth 1 (one) tablet time each day cholecalciferol (VITAMIN Take 2,000 Units 0 Active D-3) 50 MCG (2000 UT) by mouth daily capsule atorvastatin (LIPITOR) Take 1 tablet 30 tablet 5 10/11/2020 Active 20 MG tabletIndications: (20 mg total) by Hyperlipidemia mouth every night lisinopril (ZESTRIL) 2.5 Take 1 tablet 90 tablet 2 01/26/2021 Active MG tabletIndications: (2.5 mg total) Essential hypertension by mouth 1 (one) time each day Active Problems Problem Noted Date History of colonoscopy 04/29/2020 Overview: [facility] 01/26/2011, normal, repeat 10 years. Murmur, heart 08/28/2019 Bilateral carotid bruits 08/28/2019 Essential hypertension 08/28/2019 Palpitations 08/28/2019 Obesity 08/14/2017 Hyperlipidemia 08/08/2012 Osteopenia 06/27/2012 Overview: Bone density at [facility] in 2011. Immunizations Name Administration Dates Next Due COVID-19, mRNA, LNP-S, PF, 30mcg/0.3mL 10/28/2020 dose Pfizer Hep B, Unspecified 05/11/1992, 11/19/1991, 10/19/1991 MMR 10/13/1990 TD Preservative Free 03/11/1999 Tdap 06/27/2012, 09/23/2008 Family History Medical History Relation Comments Coronary artery disease Father Prostate cancer Father Breast cancer Mother Hypothyroidism Mother Osteoporosis Mother Stroke Mother Relation Status Comments Father Mother Social History Tobacco Use Types Packs/Day Years [...] Assigned at Date Recorded Not on file Last Filed Vital Signs Vital Sign Reading Time Taken Comments Blood Pressure 136/70 01/25/2021 2:11 PM CDT Pulse 76 01/25/2021 2:11 PM CDT Temperature 36.6 ??C (97.9 ??F) 04/29/2020 10:19 AM CDT Respiratory Rate 18 04/29/2020 10:19 AM CDT Oxygen Saturation 98% 04/29/2020 10:19 AM CDT Inhaled Oxygen Concentration - - Weight 91.5 kg (201 lb 12.8 oz) 04/29/2020 10:19 AM CDT Height 155.1 cm (5' 1.06) 04/29/2020 10:19 AM CDT Body Mass Index 38.05 04/29/2020 10:19 AM CDT Plan of Treatment Health Maintenance Due Date Last Done Comments Colorectal Cancer Screenin1955 Colonoscopy Glaucoma Screening 67+ Yr 1955 Fall Risk Performed 1972 Zoster Vaccines (1 of 2) 2004 Pneumococcal Vaccine: 65+ 2019 Years (1 - PCV) COVID-19 Vaccine (4 - Booster 11/25/2021 07/27/2021, for Pfizer series) 11/22/2020, 10/28/2020 Mammogram 06/24/2022 06/24/2021, 12/09/2018 HPV Vaccines Aged Out No longer eligib le based on patient's age to complete this to [facility] Insurance Payer Benefit Plan / Subscriber ID Effective Dates Phone Addre ss Type Group BCBS OF BCBS OF [id number] 2017[place] [address] [place] [address] Care Teams Brand Ambassadors Promotional Sales Relationship Specialty Start Date End Date None, Pcp PCP - General 10/19/[address] [place] [phone]
--- OUTSIDE RECORDS SUMMARY | 2022-05-04 10:28 | XMS_ITS | Encounter Summary ---
:1955 Author Organization [facility] Address [address] [place] [address] Care Team Providers Name Role Phone Shelley Porter MD Primary Care Provider Unavailable Encounter Details Date Type Department Care Team Description 10/06/2020 Lab Tarik López Mixed hyperlipidemia; [address] Essential hypertension [place] [address] Social History Tobacco Use Types [...] on file documented as of this encounter Plan of Treatment Not on filedocumented as of this encounter Procedures Procedure Name Priority Date/Time Associated Diagnosis Comme nts GLOMERULAR FILTRATION Routine 10/06/2020 8:38 Essential hypert ension Results for this RATE AM CREW TEAM MEMBER procedure are i n the results section. LIPID PANEL Routine 10/06/2020 8:38 Mixed hyperlipidemia Resu lts for this AM CREW TEAM MEMBER procedure are i n the results section. COMPREHENSIVE Routine 10/06/2020 8:38 Essential hypertension R esults for this METABOLIC PANEL AM CREW TEAM MEMBER procedure ar e in the results section. documented in this encounter Results Glomerular filtration rate (GFR) (10/06/2020 8:38 AM CREW TEAM MEMBER) P athologist Signature GFR >60 10/06/2020 [facility] 1:40 PM CREW TEAM [facility]BER [facility] >60 10/06/2020 [facility] [place] GFR 1:40 PM [facility] Comment: GFR calculated from serum creatinine v alue Chronic Kidney Disease less than 60 mL/m in/1.73 m2 Kidney Failure less than 15 mL/min/1.73 m2 Note: effective 01/02/07 IDMS-Traceable MDRD Study Equation used. Specimen Anatomical Collection Method Collection Time Receive d Time (Source) Location / / Volume Laterality 10/06/2020 8:38 AM 8:38 CREW TEAM MEMBER AM CREW TEAM MEMBER Shelley Porter MD LAB BLOOD ORDERABLES Performing Organization Address City/State/ZIP Code Phon e Number [facility] [address] [place] [address] Comprehensive metabolic panel (10/06/2020 8:38 AM CREW TEAM MEMBER) P athologist Signature Total Protein 7.5 6.3 - 8.2 10/06/2020 [facility] g/dL 1:40 PM [facility] Albumin, Serum 4.2 3.5 - 5.0 10/06/2020 [facility] g/dL 1:40 PM [facility] Total Bilirubin <0.7 0.1 - 1.0 10/06/2020 [facility] mg/dL 1:40 PM [facility] AST 29 8 - 43 U/L 10/06/2020 [facility] 1:40 PM [facility] Alkaline 99 38 - 128 10/06/2020 [facility] Phosphatase U/L 1:40 PM [facility] ALT (SGPT) 28 0 - 34 U/L 10/06/2020 [facility] 1:40 PM [facility] Sodium 138 135 - 145 10/06/2020 [facility] mEq/L 1:40 PM [facility] Potassium 4.0 3.5 - 5.1 10/06/2020 [facility] mEq/L 1:40 PM [facility] Chloride 104 98 - 107 10/06/2020 [facility] mEq/L 1:40 PM [facility] CO2 27 22 - 29 10/06/2020 [facility] mmol/L 1:40 PM [facility] BUN 14 5 - 25 10/06/2020 [facility] mg/dL 1:40 PM [facility] Creatinine 0.6 0.4 - 1.2 10/06/2020 [facility] mg/dL 1:40 PM [facility] Glucose 90 70 - 100 10/06/2020 [facility] mg/dL 1:40 PM [facility] Calcium, Total,S 8.6 8.4 - 10.2 10/06/2020 [facility] mg/dL 1:40 PM [facility] Specimen Anatomical Collection Method Collection Time Receive d Time (Source) Location / / Volume Laterality Blood 10/06/2020 8:38 AM CREW TEAM MEMBER 12:47 PM CREW TEAM MEMBER Shelley Porter MD LAB BLOOD ORDERABLES Performing Organization Address City/State/ZIP Code Phon e Number [facility] [address] [place] [address] (ABNORMAL) Lipid panel (10/06/2020 8:38 AM CREW TEAM MEMBER) athologist Signature Cholesterol 241 (H) 0 - 199 10/06/2020 [facility] mg/dL 1:40 PM [facility] Comment: Recommended by National Cholesterol Education Program (ATP III) -------- Cholesterol Ranges -------- <200 ?Desirable 200-239 ? Borderline high >=240 ? High Triglycerides 68 0 - 149 mg/dL 10/06/2020 1:40 PM [facility] Comment: -------- TRIG Ranges -------- <150 ?Normal 150-199 ? Borderline high 200-499 ? High >=500 ? Very high HDL 47 40 - 250 mg/dL 10/06/2020 1:40 PM [facility] Comment: -------- HDL Ranges -------- <40 ?Low 40-59 ?Normal >=60 ? Optimal LDL Calculated 180 (H) 0 - 99 mg/dL 10/06/2020 1:40 PM CREW TEAM MEMBER [facility] Comment: -------- LDL Ranges -------- <100 ? Optimal 100-129 ?Near optimal/above op timal 130-159 ?Borderline high 160-189 ?High >=190 ?Very high Fasting? Yes 10/06/2020 8:42 AM CREW TEAM MEMBER [facility] Specimen Anatomical Collection Method Collection Time Receive d Time (Source) Location / / Volume Laterality Blood 10/06/2020 8:38 AM CREW TEAM MEMBER 12:47 PM CREW TEAM MEMBER Shelley Porter MD LAB BLOOD ORDERABLES Performing Organization Address City/State/ZIP Code Phon e Number [facility] [address] [place] [address] documented in this encounter Visit Diagnoses Diagnosis Mixed hyperlipidemia Essential hypertension Unspecified essential hypertension documented in this encounter Care Teams Base Cloth Inspector Relationship Specialty Start Date End Date Shelley Porter MD PCP - General Family Medicine 04/19/20 documented as of this encounter
--- OUTSIDE RECORDS SUMMARY | 2022-05-04 10:28 | XMS_ITS | Encounter Summary ---
:1955 Author Organization [facility] Address [address] [place] [address] Care Team Providers Name Role Phone Irina Pham APRN, CNP Primary Care Provider [phone] Encounter Details Date Type Department Care Team Description 12/10/2018 Telephone [place] Irina Pham, [address] [place], [place] [address] [address] [facility] [address] [phone] [place], [place] [address] Social History Tobacco Use [...] this encounter Miscellaneous Notes Telephone Encounter - Irina Pham APRN, CNP - 12/10/2018 10:42 AM CDT The patient was notified her mammogram was normal and her medical records were updated. documented in this encounter Plan of Treatment Not on filedocumented as of this encounter Visit Diagnoses Not on filedocumented in this encounter Care Teams Clothes Separator Relationship Specialty Start Date End Date Irina Pham APRN, CNP PCP - General Family Medicine 07/29/18 04/18/20 [address] [facility] [place], [place] [address] documented as of this encounter
--- OUTSIDE RECORDS SUMMARY | 2022-05-04 10:28 | XMS_ITS | Encounter Summary ---
:1955 Author Organization [facility] Address [address] [place] [address] Care Team Providers Name Role Phone Irina Pham APRN, YOUTH MANAGER Primary Care Provider [phone] Reason for Visit Reason Comments Blood Pressure Check Encounter Details Date Type Department Care Team Description 08/22/2019 Clinical Support [place] [address] [place], [place] [address] Social History Tobacco Use [...] Sign Reading Time Taken Comments Blood Pressure 138/82 08/22/2019 2:39 PM WEB DEVELOPMENT MANAGER Pulse 64 08/22/2019 2:39 PM WEB DEVELOPMENT MANAGER Temperature - - Respiratory Rate - - Oxygen Saturation - - Inhaled Oxygen Concentration - - Weight - - Height - - Body Mass Index - - documented in this encounter Progress Notes Anabel Kimbrough LPN - 08/22/2019 2:30 PM CST BP: 138/82 P: 64 The patient currently takes 5mg every other day. She is wondering if she should cut that in half and do 2.5mg daily for one month and than come back in for a recheck BP? DEVELOPMENT MANAGER Irina Pham APRN, CNP - 08/22/2019 2:30 PM CST Contacted the patient, lisinopril 2.5 mg daily would be just fine, and if she would like me to send in the prescription I be happy to do so. DEVELOPMENT MANAGER documented in this encounter Plan of Treatment Not on filedocumented as of this encounter Visit Diagnoses Not on filedocumented in this encounter Care Teams Poultry Husbandry Teacher Relationship Specialty Start Date End Date Irina Pham APRN, JOE PCP - General Family Medicine 07/29/18 04/18/[address] [place] [address] [place] [id number] documented as of this encounter
--- OUTSIDE RECORDS SUMMARY | 2022-05-04 10:28 | XMS_ITS | Encounter Summary ---
:1955 Author Organization [facility] Address [address] [place] [address] Care Team Providers Name Role Phone Irina Pham APRN, CNP Primary Care Provider [phone] Reason for Referral Consultation (Routine) - Closed Specialty Diagnoses / Procedures Referred By Contact Refer red To Contact Diagnoses Bilateral carotid bruits Irina Pham, [facility] - [address] [address] [place] [address] Phone: Fax: Referral ID Status Reason Start Date Expiration Date Visits Requ ested Visits Authorized [id number] Closed 06/12/2019 06/12/2020 1 1 Consultation (Routine) - Closed Specialty Diagnoses / Procedures Referred By Contact Refer red To Contact Cardiology Diagnoses Essential hypertension Systolic murmur Irina Pham APRN, CNP [address] [place] [id number] Referral ID Status Reason Start Date Expiration Date Visits V isits Requested Authorized [id number] Closed Specialty 06/12/2019 06/12/2020 1 1 Services Required Scheduling Instructions Please call the Technical Applications Specialist stevo gillespie at [phone] ext. [phone] to schedule an appointment. Please schedule in Tarik cortez. Cardiac (Routine) - Closed Specialty Diagnoses / Procedures Referred By Contact Refer red To Contact Cardiology Diagnoses Systolic murmur Essential hypertension Irina Pham, Stan Echocardiogram 2D complete with spec and color form doppler [facility] [address] [place] [address] Referral ID Status Reason Start Date Expiration Date Visits Requ ested Visits Authorized [id number] Closed 06/12/2019 12/09/2019 1 1 Reason for Visit Reason Comments Hypertension Encounter Details Date Type Department Care Team Description 06/12/2019 Office Visit Tarik López Irina Pham Essential hypertension (Prim dylan Dx); [address], [facility] Systolic murmur; KRISTINE Giron [address] Bilateral carotid bruits [address] [place] [address] [phone] Social History Tobacco Use Types Packs/Day Years [...] Sign Reading Time Taken Comments Blood Pressure 134/82 06/12/2019 9:22 AM CDT Pulse 94 06/12/2019 9:22 AM CDT Temperature 35.8 ??C (96.5 ??F) 06/12/2019 9:22 AM CDT Respiratory Rate 18 06/12/2019 9:22 AM CDT Oxygen Saturation 96% 06/12/2019 9:22 AM CDT Inhaled Oxygen Concentration - - Weight 98.5 kg (217 lb 2.5 oz) 06/12/2019 9:22 AM CDT Height 155 cm (5' 1.02) 06/12/2019 9:22 AM CDT Body Mass Index 41 06/12/2019 9:22 AM CDT documented in this encounter Patient Instructions Patient InstructionsChmer Pham APRN, JOE - 06/12/2019 9:40 AM CDT Echocardiogram and cardiology appointment in [place] Lisinopril 5 mg daily Consider carotid ultrasound documented in this encounter Progress Notes Irina Pham APRN, CNP - 06/12/2019 9:40 AM CDT Estab Patient Visit Subjective Patient ID: Colleen Tolentino is a 64 y.o. female presenting for the following concerns. Chief Complaint Patient presents with ??? Hypertension HPI: The patient is a pleasant 64 y.o. year old female presenting ambulatory to the clinical setting withconcerns about her elevated blood pressure. The patient reports about 11:30 one evening last week, she was coming down the stairs, felt a bit lightheaded, which has happened on several occasions recently. 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 The patient reports yesterday she had her blood pressurechecked at the local grocery store and it was 156-178 systolically. The patient reports she took Lisinopril 10 mg x1, her ???s prescription, last evening, and her blood pressure today is lower af ter only one dose. No chest pain, discomfort, peripheral edema, syncope, and/or presyncope. The patient does have a cardiac murmur which was going to be evaluated in October, with an echocardiogram, which was not arranged. The patient has a longstanding history of palpitations, infrequently, which are brief, and relieved with deep breathing. The patient reports she has had jaw discomfort, which she feels is from her TMJ. She reports her jaw discomfort is never associated with activity, as a matter fact, when she is active she generally feels energized, good. The patient has had shortness of breath with exertion, nothing she deems problematic, and likely from deconditioning. The patient reports she has been stressed over a long period of time, raising 2 teenage boys, [facility]. The patient reports one of her sons has had drug and alcohol addiction, which they are working through, which has been stressful. 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 The patient had a thorough work-up in October including a lipid panel, CBC with differential, BMP chest, x-ray, and EKG. The patient does not wish to repeat testing. The patient intends on working out, eating healthy, and would like to l ose 60 pounds in the next year. The patient has hyperlipidemia, has declined statin therapy, and does not want to reconsider. The patient's father had heart disease, and her mother had a hemorrhagic stroke. No recreational drug use. Alcohol rare. Non-smoker. ROS: GENERAL: The patient reports she has gained weight. CARDIOVASCULAR: See HPI. The patient reports she had elevated blood pressures, with intermittent lightheadedness not associated with activity, for an unspecified period of time. No chest pain, pressure, peripheral edema, presyncope, and/or syncope. The patient has a known cardiac murmur. The patient has a longstanding history of palpitations, infrequently, which are brief, and relieved with deep breathing. RESPIRATORY: The patient experiences dyspnea with exertion, and likely from deconditioning, nothing she deems problematic. The following portions of the patient's chart were reviewed in this encounter and updated as appropriate: Tobacco Allergies Meds Med Hx Surg Hx Fam Hx Current Outpatient Medications: ??? aspirin 81 MG chewable tablet, Chew 1 tablet 1 (one) time each day, Disp: , Rfl: ??? cholecalciferol (VITAMIN D-3) 25 MCG (1000 UT) tablet, Take 2,000 Units by mouth 1 (one) time each day, Disp: , Rfl: ??? omega-3 (FISH OIL) 1200 MG capsule, Take 1 capsule by mouth 1 (one) time each day, Disp: , Rfl: ??? lisinopril (PRINIVIL,ZESTRIL) 5 MG tablet, Take 1 tablet (5 mg total) by mouth 1 (one) time eachday, Disp: 30 tablet, Rfl: 1 Objective Visit Vitals BP 134/82 (BP Location: Left arm, Patient Position: Sitting) Pulse 94 Temp (!) 35.8 ??C (96.5 ??F) (Temporal) Resp 18 Ht 1.55 m (5' 1.02) Wt 98.5 kg (217 lb 2.5 oz) SpO2 96% BMI 41.00 kg/m?? Smoking Status Never Smoker BSA 2.06 m?? GENERAL: The patient is alert, orientated, and in no apparent distress. CARDIOVASCULAR: Normal heart rate and rhythm. No murmur. No peripheral edema. Positive peripheral pulses, x4. Carotid bruits bilaterally greater on the left than the right. RESPIRATORY: Lungs are clear, bilaterally. No wheezing. DIAGNOSTICS: Lab on 11/12/2018 Component Date Value Ref Range Status ??? Sodium 11/12/2018 139 135 - 145 mmol/L Final ??? Potassium 11/12/2018 3.5 3.5 - 5.1 mmol/L Final ??? Chloride 11/12/2018 104 98 - 107 mmol/L Final ??? CO2 11/12/2018 27 22 - 29 mmol/L Final ??? Creatinine 11/12/2018 0.5 0.4 - 1.2 mg/dL Final ??? BUN 11/12/2018 10 5 - 25 mg/dL Final ??? Glucose 11/12/2018 85 70 - 100 mg/dL Final ??? Calcium, Total,S 11/12/2018 9.3 8.4 - 10.2 mg/dL Final ??? Fasting? 11/12/2018 Yes Final ??? WBC 11/12/2018 6.0 3.5 - 10.5 K/uL Final ??? RBC 11/12/2018 4.62 3.90 - 5.00 M/uL Final ??? Hemoglobin 11/12/2018 13.8 12.0 - 15.5 g/dL Final ??? Hematocrit 11/12/2018 41.1 35.0 - 44.0 % Final ??? Platelets 11/12/2018 196 150 - 450 K/uL Final ??? MCV 11/12/2018 89.0 81.6 - 98.3 fL Final ??? MCH 11/12/2018 29.9 26.0 - 32.0 pg Final ??? MCHC 11/12/2018 33.6 32.0 - 36.0 g/dL Final ??? RDW 11/12/2018 13.4 11.9 - 15.5 % Final ??? Lymphocytes % 11/12/2018 34.5 18.0 - 45.0 % Final ??? Mid-size Cells 11/12/2018 6.5 3.3 - 10.1 % Final ??? Granulocytes/Neutrophils 11/12/2018 59.0 45.8 - 73.7 % Final ??? Lymphocytes Absolute 11/12/2018 2.1 0.9 - 2.9 K/uL Final ??? MIDS Absolute 11/12/2018 0.4 0.2 - 0.8 K/uL Final ??? Granulocytes/Neutrophils Absolute 11/12/2018 3.5 2.1 - 8.7 K/uL Final ??? Cholesterol 11/12/2018 226* 0 - 199 mg/dL Final ??? Triglycerides 11/12/2018 76 0 - 149 mg/dL Final ??? HDL 11/12/2018 54 40 - 60 mg/dL Final ??? LDL Calculated 11/12/2018 157* 0 - 99 mg/dL Final ??? T3, Total 11/12/2018 1.97* 0.97 - 1.69 ng/mL Final ??? Free T4 11/12/2018 1.10 0.78 - 2.19 ng/dL Final ??? TSH, Sensitive 11/12/2018 1.96 0.46 - 4.68 mIU/L Final ? ? GFR 11/12/2018 >60 Final ? ? GFR 11/12/2018 >60 Final Assessment/Plan Colleen was seen today for hypertension. Diagnoses and all orders for this visit: Essential hypertension (Primary) - Discontinue: lisinopril (PRINIVIL,ZESTRIL) 10 MG tablet; Take 1 tablet (10 mg total) by mouth 1 (one) time each day - Echocardiogram 2D complete with spec and color form doppler; Future - Ambulatory referral to Cardiology - Echocardiogram 2D complete with spec and color form doppler - lisinopril (PRINIVIL,ZESTRIL) 5 MG tablet; Take 1 tablet (5 mg total) by mouth 1 (one) time each day Systolic murmur - Echocardiogram 2D complete with spec and color form doppler; Future - Ambulatory referral to Cardiology - Echocardiogram 2D complete with spec and color form doppler Bilateral carotid bruits - Ambulatory External Referral Discussed the plan of care with the patient. Initially prescribed lisinopril 10 mg daily, and beforethe end of the clinical visit, she requested Lisinopril 5 mg daily. 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 She will continue to monitor her blood pressures.Recommended diet and exercise, and the patient has every intention of starting to incorporate a healthier lifestyle. Will refer the patient to cardiology for an echocardiogram and consultation. The patient will obtain a bilateral carotid ultrasound at [facility] in [place] prior to that appointment, which she decided to proceed with at the end of the clinical visit. The patient agrees and understands this plan of care. Irina Pham APRN, CNP documented in this encounter Plan of Treatment Scheduled Referrals Name Type Priority Associated Order Schedule Diagnoses Ambulatory referral Outpatient Referral Routine Essential O rdered: to Cardiology hypertension 06/12/2019 Systolic murmur Ambulatory External Outpatient Referral Routine Bilateral thomas tid Ordered: Referral bruits 06/12/2019 documented as of this encounter Procedures Procedure Name Priority Date/Time Associated Diagnosis Comme nts ECHOCARDIOGRAM 2D Routine 07/03/2019 10:00 Systolic murm ur Results for this COMPLETE WITH SPEC AND AM SECURITY AND COMPLIANCE ANALYST Essential proce dure are in COLOR FORM DOPPLER hypertension the resul ts section. documented in this encounter Results Echocardiogram 2D complete with spec and color form doppler (07/03/2019 10:00 AM SECURITY AND COMPLIANCE ANALYST) Anatomical Region Laterality Modality Ultrasound Specimen (Source) Anatomical Collection Method Collection Time Re ceived Time Location / / Volume Laterality 07/03/2019 10:00 AM SECURITY AND COMPLIANCE ANALYST Narrative This result has an attachment that is no t available. Irina Pham APRN, CNP CV ECHO PROCEDURES documented in this encounter Visit Diagnoses Diagnosis Essential hypertension - Primary Unspecified essential hypertension Systolic murmur Undiagnosed cardiac murmurs Bilateral carotid bruits documented in this encounter Care Teams Unionmelt Operator Relationship Specialty Start Date End Date Irina Pham APRN, CLAIM AUDITOR PCP - General Family Medicine 07/29/18 04/18/20 [address] [facility] [place] [address] documented as of this encounter
--- OUTSIDE RECORDS SUMMARY | 2022-05-04 10:28 | XMS_ITS | Encounter Summary ---
:1955 Author Organization [facility] Address [address] [place] [address] Care Team Providers Name Role Phone Irina Pham APRN, JOE Primary Care Provider [phone] Reason for Visit Reason Comments Advice Only Consultation (Routine) - Closed Specialty Diagnoses / Procedures Referred By Contact Refer red To Contact Cardiology Diagnoses Essential hypertension Systolic murmur Irina Pham APRN, ENVELOPE ADDRESSER [address] [place] [address] Referral ID Status Reason Start Date Expiration Date Visits V isits Requested Authorized [id number] Closed Specialty 06/12/2019 06/12/2020 1 1 Services Required Encounter Details Date Type Department Care Team Description 08/28/2019 Consult [place] Shivam De La O MD Murmur, heart (Primary Dx); [address] Bilateral carotid bruits; [place], [place] [address] Essential hypertension; [phone] Palpitations Social History Tobacco Use Types Packs/Day Years [...] Sign Reading Time Taken Comments Blood Pressure 138/88 08/28/2019 10:32 AM CASING TESTER Pulse 66 08/28/2019 10:32 AM CASING TESTER Temperature 36.8 ??C (98.2 ??F) 08/28/2019 10:32 AM CASING TESTER Respiratory Rate 16 08/28/2019 10:32 AM CASING TESTER Oxygen Saturation 98% 08/28/2019 10:32 AM CASING TESTER Inhaled Oxygen Concentration - - Weight 100 kg (220 lb 14.4 oz) 08/28/2019 10:32 AM CASING TESTER Height 150 cm (4' 11.06) 08/28/2019 10:32 AM CASING TESTER Body Mass Index 44.53 08/28/2019 10:32 AM CASING TESTER documented in this encounter Patient Instructions Patient InstructionsShivam De La O MD - 08/28/2019 10:20 AM CST 1. Would consider undergoing a stress echocardiogram or comparable ischemia assessment if her exertional dyspnea persists. 2. Would strongly recommend a low-fat low-cholesterol diet and if her lipid profile does not improve, particularly her LDL cholesterol would consider being on a statin. 3. Would also consider undergoing a bilateral duplex carotid ultrasound. Doubt very strongly that her sclerotic aortic valve could account for her apparent bruits versus transmitted murmur appreciated in her proximal ascending carotids carotid arteries. 4. Patient would like to consider timing of such studies if she wishes to pursue them and advised she can need to get in touch with Irina Pham, or alternatively myself in the cardiology clinic and we can make appropriate recommendations. NG TESTER documented in this encounter Progress Notes Shivam De La O MD - 08/28/2019 10:20 AM CST Consultation Patient ID: Colleen Tolentino is a 64 y.o. female. Referring Provider: Irina Pham APRN, CNP HPI This 64-year-old female is seen in initial Cardiology Consultation with the [facility] cardiology group with concerns about her blood pressure, recent palpitations, exertional dyspnea, and a cardiac murmur at the request of her primary care provider Irina Pham APRN, CNP. She had been seen in clinic this past October and had been referred for cardiology consultation at that time but having improved somewhat she deferred being seen. With ongoing symptoms she is currently decided to beevaluated. She is currently seen after having already completed an outpatient echocardiogram. She believes that her symptomatology has been impacted by recent psychosocial stressors with her [id number] having been quite ill resulting in her having on occasion near panic attacks that she describes them. Her blood pressure is apparently been somewhat labile when seen in October she been 138/68 which is relatively typical for blood pressure currently maintained on lisinopril and a low dose of 7.5 mg orally daily. She has made attempts at limiting salt intake but does not have a regular exercise regimen. She has noted episodic brief palpitations of just seconds duration unclearly related to specific activity but occasionally occurring with exertion. Her irregular heartbeats are brief but 10 on occasionto leave her breathless, but not associated with chest pain. She distantly describes actable exertional dyspnea well attempting exercise by [place] which include walking up and down small heel slides. She denies rest dyspnea, or paroxysmal nocturnal dyspnea, orthopnea, lightheadedness, near-syncope, syncope but does note palpitations as above. These palpitations have also not resulted in a sensation that she might actually pass out but is nevertheless quite bother some. On questioning she relates that she would like to clarify some of these issues since she is concerned that her father had coronary artery disease, question full details. She additionally has dyslipidemia historically not on a statin. She is eager for the results of her echocardiogram and implications. She has had a previously described murmur is soft appreciated over the left sternal border of her Irinapuneet Pham. Other than her recent echocardiogram she has not had previous cardiovascular assessments. Her cardiovascular risk factors for coronary disease include her hypertension that is been present apparently for several years. She has a modest family history of coronary disease that she is aware ofinvolving her father. She is a lifetime non-smoker. She has dyslipidemia currently not on a statin with the most recent fasting lipid profile from 11/12/2018 demonstrating a total cholesterol of 226 mg/dL, triglycerides of 76 mg/dL, and HDL cholesterol 54 mg/dL, and a significantly elevated LDL cholesterol of 157 mg/dL. He has no history of diabetes mellitus The following portions of the patient's chart were reviewed in this encounter and updated as appropriate: Tobacco Allergies Meds Problems Med Hx Surg Hx Fam Hx ROS General: Weight has been stable. Denies fevers, chills or sweats. Feels that recently she has becomedeconditioned which may impact her developing exertional dyspnea when walking country roads about her home. HEENT: Vision is good. Denies difficulty hearing, breathing through the nose or swallowing. Endocrine: Has no history of known diagnosed thyroid disease, did have an elevated T3 total of 1.97 11/12/2018 at which time her TSH and free T4 were normal. She has no history of diabetes mellitus. He has the above described history of currently untreated dyslipidemia with no other known metabolic diso rder. Pulmonary: Denies bronchospasm, sputum production, cough or recent pulmonary infection. Cardiovascular: Is as per the above history of the present illness. Gastrointestinal: Denies nausea, vomiting, abdominal pain, rectal bleeding, constipation or diarrheaor loss of appetite. Genitourinary: Denies dysuria, hematuria or recent urinary tract infection. Musculoskeletal: Denies joint swelling or current discomfort. She has been bothered episodically by mild left knee pain without swelling. She denies other lower extremity edema or leg pain. Dermatological: Denies rash , or other active skin disorder. Hematological: Has no history of known familial bleeding disorder or personal easy bruisability. Neurological: Denies numbness, weakness, gait disturbance or history of stroke. Psychiatric: Has been bothered by episodic panic attacks question related to her ill [id number] since this past late winter/early spring. Additionally has been bothered by issues related to her teenage sons choices. She has no known history of diagnosed Depression. Physical Exam Blood pressure 138/88, pulse 66, temperature 36.8 ??C (98.2 ??F), resp. rate 16, height 1.5 m (4' 11.06), weight 100 kg (220 lb 14.4 oz), SpO2 98 %. Repeat BP, approximately 25 minutes after arrival, left arm, 130/84 Generally: Very pleasant patient in no acute distress. Speaks freely without dyspnea. Weight has been david. HEENT: The pupils are equally round and reactive to light and accommodation. Extraocular muscles areintact. Ears and nose are normal. Pharynx is clear. Buccal mucosa is moist. Neck: Supple with full range of motion. No lymphadenopathy or thyromegaly noted. Carotids are grade 4/4 bilaterally with normal upstroke bilateral bruits appreciated particularly in the more proximal carotids towards her clavicles. Lungs: Clear to auscultation and percussion bilaterally with no rales, wheezing or dullness noted. Cardiovascular: The jugular venous pressure and point of maximal intensity are normal. The first andsecond heart sounds are normal. Grade 1-2/6 mid peaking systolic murmur noted at the upper right sternal border slightly ejection in character and appreciated also towards the left upper sternal border. No diastolic murmur, gallop, rub or click is noted. No extrasystoles are appreciated during auscultation or subsequent palpation of the peripheral pulse for approximately 2 minutes. Abdomen: Soft and nontender. No rebound, guarding, hepatosplenomegaly or mass noted. No abdominal bruit is present. Back: No CVA or paraspinal muscle tenderness noted. Skin: No rash, petechiae or ecchymoses present. Extremities: No joint swelling or deformity noted. Skin is warm and dry. No edema present. Pedal pulses grade 4/4 bilaterally. 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 Neurological: Fully oriented. Cranial nerves II through XII, motor, sensory, and deep tendon reflexes grossly equal and symmetrical. Psychiatric: Mood, affect, insight and decision-making are normal. Lab Review: No visits with results within 2 Month(s) from this visit. Latest known visit with results is: Lab on 11/12/2018 Component Date Value ??? Sodium 11/12/2018 139 ??? Potassium 11/12/2018 3.5 ??? Chloride 11/12/2018 104 ??? CO2 11/12/2018 27 ??? Creatinine 11/12/2018 0.5 ??? BUN 11/12/2018 10 ??? Glucose 11/12/2018 85 ??? Calcium, Total,S 11/12/2018 9.3 ??? Fasting? 11/12/2018 Yes ??? WBC 11/12/2018 6.0 ??? RBC 11/12/2018 4.62 ??? Hemoglobin 11/12/2018 13.8 ??? Hematocrit 11/12/2018 41.1 ??? Platelets 11/12/2018 196 ??? MCV 11/12/2018 89.0 ??? MCH 11/12/2018 29.9 ??? MCHC 11/12/2018 33.6 ??? RDW 11/12/2018 13.4 ??? Lymphocytes % 11/12/2018 34.5 ??? Mid-size Cells 11/12/2018 6.5 ??? Granulocytes/Neutrophils 11/12/2018 59.0 ??? Lymphocytes Absolute 11/12/2018 2.1 ??? MIDS Absolute 11/12/2018 0.4 ??? Granulocytes/Neutrophils* 11/12/2018 3.5 ??? Cholesterol 11/12/2018 226* ??? Triglycerides 11/12/2018 76 ??? HDL 11/12/2018 54 ??? LDL Calculated 11/12/2018 157* ??? T3, Total 11/12/2018 1.97* ??? Free T4 11/12/2018 1.10 ??? TSH, Sensitive 11/12/2018 1.96 ? ? GFR 11/12/2018 >60 ? ? GFR 11/12/2018 >60 12-lead ECG, 11/12/2018: 1. Normal sinus rhythm at 63 bpm. 2. Otherwise normal tracing. Cardiogram, 07/03/2019: 1. Normal LV chamber size with mildly increased concentric left hypertrophy ventricular wall thickness. 2. Estimated left ventricular ejection fraction in the 65 to 70% range with no regional wall motion abnormalities. 3. No significant valvular heart disease. Aortic valve is thickened question actual number of cusp without stenosis or regurgitation. 4. Normal right ventricular size and function. 5. Estimated right ventricular systolic pressure 29 mmHg with a simultaneous systemic blood pressureis 134 mmHg. . Mild mitral valvular regurgitation. 6. Normal aortic dimensions. Assessment: 1. 64-year-old female with much going on socially at home as stressors presents with reasonably wellcontrolled hypertension. 2. Exertional dyspnea, question exact etiology. May be secondary to hypertension and diastolic dysfunction but may well also be secondary to underlying myocardial ischemia which is not as yet been assessed. 3. Significant dyslipidemia, currently not on a statin. 4. Cardiac murmur most likely secondary to aortic valve is thickened and per my assessment visually appears to be remarkable for sclerosis without stenosis. 5. Mild mitral regurgitation but doubt from examination that her murmur is from mitral regurgitationbased upon character and location. 6. Mild thyroid function testing abnormality noted 7. Palpitations sound benign but may merit further assessment if remaining to be symptomatic would consider a Holter monitor or cardiac event monitor. Plan: 1. Advised the patient continue her current antihypertensive regimen. 2. Suggest she pursue an aggressive lipid-lowering/low-fat low-cholesterol diet and if her LDL cholesterol does not improve would seriously consider being on a statin. 3. If her exertional dyspnea persists would consider a stress echocardiogram or alternative ischemiaassessment. 4. We will also consider carotid ultrasound. At time of discharge patient was reluctant about the timing of such testing and may wish to think about this first. Recommend she can be seen back with her primary care provider Irina Pham APRN,JOE but contact us and we can make appropriate arrangements. NG TESTER documented in this encounter Plan of Treatment Not on filedocumented as of this encounter Visit Diagnoses Diagnosis Murmur, heart - Primary Undiagnosed cardiac murmurs Bilateral carotid bruits Essential hypertension Unspecified essential hypertension Palpitations documented in this encounter Care Teams Office Machines Wirer Relationship Specialty Start Date End Date Irina Pham APRN, ENVELOPE ADDRESSER PCP - General Family Medicine 07/29/18 04/18/[address] [place] [id number] documented as of this encounter
--- OUTSIDE RECORDS SUMMARY | 2022-05-04 10:28 | XMS_ITS | Encounter Summary ---
:1955 Author Organization [facility] Address [address] [place] [address] Care Team Providers Name Role Phone Irina Pham APRN, CNP Primary Care Provider [phone] Encounter Details Date Type Department Care Team Description 08/22/2019 Orders Only [place] Irina Pham Essential hypertension [address], JOE JUNG (Primary Dx) [place], [place] [address] [facility] [address] [place] [address] Social History Tobacco Use Types Packs/Day Years [...] Essential hypertension - Primary Unspecified essential hypertension documented in this encounter Care Teams Sales Operations Specialist Relationship Specialty Start Date End Date Irina Pham APRN, CNP PCP - General Family Medicine 07/29/18 04/18/20 [address] [place] [address] documented as of this encounter
--- OUTSIDE RECORDS SUMMARY | 2022-05-04 10:28 | XMS_ITS | Encounter Summary ---
:1955 Author Organization [facility] Address [address] [place] [address] Care Team Providers Name Role Phone Shelley Porter MD Primary Care Provider Unavailable Reason for Visit Reason Comments Establish Care Encounter Details Date Type Department Care Team Description 04/29/2020 Office Visit Tarik López Shelley Porter Essential hypertension (Prim dylan Dx); [address] MD Jacobo Mixed hyperlipidemia; [place], [place] Osteopenia, unspecified location [id number] Social History Tobacco Use Types Packs/Day Years [...] Sign Reading Time Taken Comments Blood Pressure 132/74 04/29/2020 10:19 AM CDT Pulse 83 04/29/2020 10:19 AM CDT Temperature 36.6 ??C (97.9 ??F) 04/29/2020 10:19 AM CDT Respiratory Rate 18 04/29/2020 10:19 AM CDT Oxygen Saturation 98% 04/29/2020 10:19 AM CDT Inhaled Oxygen Concentration - - Weight 91.5 kg (201 lb 12.8 oz) 04/29/2020 10:19 AM CDT Height 155.1 cm (5' 1.06) 04/29/2020 10:19 AM CDT Body Mass Index 38.05 04/29/2020 10:19 AM CDT documented in this encounter Patient Instructions Patient InstructionsFraparna Porter MD - 04/29/2020 10:20 AM CDT Images from the original note were not included. Patient Education Preventive Care 65 Years and Older, Female Preventive care refers to lifestyle choices and visits with your health care provider that can promote health and wellness. What does preventive care include? ?? A yearly physical exam. This is also called an annual well check. ?? Dental exams once or twice a year. ?? Routine eye exams. Ask your health care provider how often you should have your eyes checked. ?? Personal lifestyle choices, including: ? Daily care of your teeth and gums. ? Regular physical activity. ? Eating a healthy diet. ? Avoiding tobacco and drug use. ? Limiting alcohol use. ? Practicing safe sex. ? Taking low-dose aspirin every day. ? Taking vitamin and mineral supplements as recommended by your health care provider. What happens during an annual well check? The services and screenings done by your health care provider during your annual well check will depend on your age, overall health, lifestyle risk factors, and family history of disease. Counseling Your health care provider may ask you questions about your: ?? Alcohol use. ?? Tobacco use. ?? Drug use. ?? Emotional well-being. ?? Home and relationship well-being. ?? Sexual activity. ?? Eating habits. ?? History of falls. ?? Memory and ability to understand (cognition). ?? Work and work environment. ?? Reproductive health. Screening You may have the following tests or measurements: ?? Height, weight, and BMI. ?? Blood pressure. ?? Lipid and cholesterol levels. These may be checked every 5 years, or more frequently if you are over 50 years old. ?? Skin check. ?? Lung cancer screening. You may have this screening every year starting at age 55 if you have a 12-vjpk-aedv history of smoking and currently smoke or have quit within the past 15 years. ?? Colorectal cancer screening. All adults should have this screening starting at age 50 and continuing until age 75. You will have tests every 1-10 years, depending on your results and the type of screening test. People at increased risk should start screening at an earlier age. Screening tests may include: ? Guaiac-based fecal occult blood testing. ? Fecal immunochemical test (FIT). ? Stool DNA test. ? Virtual colonoscopy. ? Sigmoidoscopy. During this test, a flexible tube with a tiny camera (sigmoidoscope) is used to examine your rectum and lower colon. The sigmoidoscope is inserted through your anus into your rectum and lower colon. ? Colonoscopy. During this test, a long, thin, flexible tube with a tiny camera (colonoscope) is used to examine your entire colon and rectum. ?? Hepatitis C blood test. ?? Hepatitis B blood test. ?? Sexually transmitted disease (STD) testing. ?? Diabetes screening. This is done by checking your blood sugar (glucose) after you have not eaten for a while (fasting). You may have this done every 1-3 years. ?? Bone density scan. This is done to screen for osteoporosis. You may have this done starting at age 65. ?? Mammogram. This may be done every 1-2 years. Talk to your health care provider about how often you should have regular mammograms. Talk with your health care provider about your test results, treatment options, and if necessary, the need for more tests. Vaccines Your health care provider may recommend certain vaccines, such as: ?? Influenza vaccine. This is recommended every year. ?? Tetanus, diphtheria, and acellular pertussis (Tdap, Td) vaccine. You may need a Td booster every 10 years. ?? Varicella vaccine. You may need this if you have not been vaccinated. ?? Zoster vaccine. You may need this after age 60. ?? Measles, mumps, and rubella (MMR) vaccine. You may need at least one dose of MMR if you were bornin 1957 or later. You may also need a second dose. ?? Pneumococcal 13-valent conjugate (PCV13) vaccine. One dose is recommended after age 65. ?? Pneumococcal polysaccharide (PPSV23) vaccine. One dose is recommended after age 65. ?? Meningococcal vaccine. You may need this if you have certain conditions. ?? Hepatitis A vaccine. You may need this if you have certain conditions or if you travel or work inplaces where you may be exposed to hepatitis A. ?? Hepatitis B vaccine. You may need this if you have certain conditions or if you travel or work inplaces where you may be exposed to hepatitis B. ?? Haemophilus influenzae type b (Hib) vaccine. You may need this if you have certain conditions. Talk to your health care provider about which screenings and vaccines you need and how often you need them. This information is not intended to replace advice given to you by your health care provider. Make sure you discuss any questions you have with your health care provider. Document Released: 09/01/2016 Document Revised: 09/26/2018 Document Reviewed: 06/06/2016 [employer] Interactive Patient Education ?? 2019 [employer]. documented in this encounter Progress Notes Shelley Porter MD - 04/29/2020 10:20 AM CDT Images from the original note were not included. Estab Patient Visit Subjective Patient ID: Colleen Tolentino is a 64 y.o. female. Chief Complaint Patient presents with ??? Establish Care HPI Patient is a 64-year-old female who presents for establishing care. She has hyperlipidemia, hypertension. She is currently on lisinopril 2.5 mg once daily for hypertension. She was last seen in clinic by primary healthcare network pricing consultant in 05/2019 and subsequently evaluated by cardiology on 08/2019. She had an ec hocardiogram performed in June 2019 which showed some mild increased concentric left ventricularthickness, left ventricular ejection fraction estimated to be 65 to 70%, no regional wall abnormalities, no significant valvular disease and normal right ventricular function and size. She underwent carotid artery ultrasound at [place] in [facility] which showed an well plaque. Labs were last performed in October 2018. Lipids at that time total 226, triglycerides 76, HDL 54 and LDL 157. She had a normal TSH of 1.96. Patient had been on a higher dose of lisinopril but did not tolerate the higher dose due to side effects. She has lost weight since the first of the year by exercising regularly on a bike and adhering to weight watchers diet and not eating after dinner and drinking 8 glasses of water per day. She understands she has high cholesterol but would like to treated with diet and exercise. She tellsme she tried statin cholesterol-lowering medication in the past and it caused muscle aches. She has osteopenia which was last evaluated by bone density in 2011. She does take vitamin D supplement and occasional calcium supplement. She has declined prescription drug treatment due to wanting todo a more homeopathic approach. She tells me she sees a homeopathic doctor in [place] named Edita Olvera. She gets her routine screening tests at [place] and has an upcoming mammogram. Her mom had breast cancer at the age of 82 and lived to age 95. Patient tells me that she does not need any Pap smears as she previously discussed this with former primary care provider. She tells me she is never had an abnormal Pap smear, no pregnancies. She went through natural menopause at the age of 42 and has had no bleeding since. She did try Prempro but didnot tolerate. Last colonoscopy was in January 2011 at [facility] and was normal with recommended repeat in 10 years. 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 Current Outpatient Medications on File Prior to Visit Medication Sig Dispense Refill ??? aspirin 81 MG chewable tablet Chew 1 tablet 1 (one) time each day ??? cholecalciferol (VITAMIN D-3) 50 MCG (2000 UT) capsule Take 2,000 Units by mouth daily ??? lisinopril (PRINIVIL,ZESTRIL) 2.5 MG tablet Take 1 tablet (2.5 mg total) by mouth 1 (one) time each day 90 tablet 3 ??? omega-3 (FISH OIL) 1200 MG capsule Take 1 capsule by mouth 1 (one) time each day ??? cholecalciferol (VITAMIN D-3) 25 MCG (1000 UT) tablet Take 2,000 Units by mouth 1 (one) time each day ??? lisinopril (PRINIVIL,ZESTRIL) 5 MG tablet Take 1 tablet (5 mg total) by mouth 1 (one) time each day 30 tablet 1 No current facility-administered medications on file prior to visit. Cefuroxime The following portions of the patient's chart were reviewed in this encounter and updated as appropriate: Tobacco Allergies Meds Med Hx Surg Hx OB Status Fam Hx Soc Hx Review of Systems See HPI. Objective Physical Exam Blood pressure 132/74, pulse 83, temperature 36.6 ??C (97.9 ??F), temperature source Temporal, resp.rate 18, height 1.551 m (5' 1.06), weight 91.5 kg (201 lb 12.8 oz), SpO2 98 %. Generally, well-appearing not in acute distress. Pupils equal round reactive to light, sclera nonicteric. Oropharynx is clear. Neck is supple without lymphadenopathy or thyromegaly. Heart regular rate and rhythm without murmurs rubs or gallops. Lungs clear to auscultation bilaterally. Abdomen with normoactive bowel sounds soft nontender nondistended no organomegaly. Lower extremities without edema. Intact pedal pulses. Assessment/Plan Diagnoses and all orders for this visit: Essential hypertension - Comprehensive metabolic panel; Future Mixed hyperlipidemia - Lipid panel; Future Osteopenia, unspecified location She will be due for repeat colonoscopy in January 2011 at [place] in [facility]. She will complete mammogram for breast cancer screening. Discussed osteopenia and she declines repeat bone density at this time as she says she will not be interested in taking prescription medications for this. He encouraged ongoing exercises, with weightbearing exercises and adequate calcium and vitamin D. Blood pressure adequately controlled on lisinopril 2.5 mg once daily which she will continue. She will be due for labs in 6 months. She declines statin drug for treatment of hyperlipidemia. We discussed ways to further reduce her cholesterol. We will recheck lipids annually. This dictation was created with voice recognition software and therefore may contain errors that went unnoticed. Patient Instructions Patient Education Preventive Care 65 Years and Older, Female Preventive care refers to lifestyle choices and visits with your health care provider that can promote health and wellness. What does preventive care include? ?? A yearly physical exam. This is also called an annual well check. ?? Dental exams once or twice a year. ?? Routine eye exams. Ask your health care provider how often you should have your eyes checked. ?? Personal lifestyle choices, including: ? Daily care of your teeth and gums. ? Regular physical activity. ? Eating a healthy diet. ? Avoiding tobacco and drug use. ? Limiting alcohol use. ? Practicing safe sex. ? Taking low-dose aspirin every day. ? Taking vitamin and mineral supplements as recommended by your health care provider. What happens during an annual well check? The services and screenings done by your health care provider during your annual well check will depend on your age, overall health, lifestyle risk factors, and family history of disease. Counseling Your health care provider may ask you questions about your: ?? Alcohol use. ?? Tobacco use. ?? Drug use. ?? Emotional well-being. ?? Home and relationship well-being. ?? Sexual activity. ?? Eating habits. ?? History of falls. ?? Memory and ability to understand (cognition). ?? Work and work environment. ?? Reproductive health. Screening You may have the following tests or measurements: ?? Height, weight, and BMI. ?? Blood pressure. ?? Lipid and cholesterol levels. These may be checked every 5 years, or more frequently if you are over 50 years old. ?? Skin check. ?? Lung cancer screening. You may have this screening every year starting at age 55 if you have a 70-dqrd-rhxy history of smoking and currently smoke or have quit within the past 15 years. ?? Colorectal cancer screening. All adults should have this screening starting at age 50 and continuing until age 75. You will have tests every 1-10 years, depending on your results and the type of screening test. People at increased risk should start screening at an earlier age. Screening tests may include: ? Guaiac-based fecal occult blood testing. ? Fecal immunochemical test (FIT). ? Stool DNA test. ? Virtual colonoscopy. ? Sigmoidoscopy. During this test, a flexible tube with a tiny camera (sigmoidoscope) is used to examine your rectum and lower colon. The sigmoidoscope is inserted through your anus into your rectum and lower colon. ? Colonoscopy. During this test, a long, thin, flexible tube with a tiny camera (colonoscope) is used to examine your entire colon and rectum. ?? Hepatitis C blood test. ?? Hepatitis B blood test. ?? Sexually transmitted disease (STD) testing. ?? Diabetes screening. This is done by checking your blood sugar (glucose) after you have not eaten for a while (fasting). You may have this done every 1-3 years. ?? Bone density scan. This is done to screen for osteoporosis. You may have this done starting at age 65. ?? Mammogram. This may be done every 1-2 years. Talk to your health care provider about how often you should have regular mammograms. Talk with your health care provider about your test results, treatment options, and if necessary, the need for more tests. Vaccines Your health care provider may recommend certain vaccines, such as: ?? Influenza vaccine. This is recommended every year. ?? Tetanus, diphtheria, and acellular pertussis (Tdap, Td) vaccine. You may need a Td booster every 10 years. ?? Varicella vaccine. You may need this if you have not been vaccinated. ?? Zoster vaccine. You may need this after age 60. ?? Measles, mumps, and rubella (MMR) vaccine. You may need at least one dose of MMR if you were bornin 1957 or later. You may also need a second dose. ?? Pneumococcal 13-valent conjugate (PCV13) vaccine. One dose is recommended after age 65. ?? Pneumococcal polysaccharide (PPSV23) vaccine. One dose is recommended after age 65. ?? Meningococcal vaccine. You may need this if you have certain conditions. ?? Hepatitis A vaccine. You may need this if you have certain conditions or if you travel or work inplaces where you may be exposed to hepatitis A. ?? Hepatitis B vaccine. You may need this if you have certain conditions or if you travel or work inplaces where you may be exposed to hepatitis B. ?? Haemophilus influenzae type b (Hib) vaccine. You may need this if you have certain conditions. Talk to your health care provider about which screenings and vaccines you need and how often you need them. This information is not intended to replace advice given to you by your health care provider. Make sure you discuss any questions you have with your health care provider. Document Released: 09/01/2016 Document Revised: 09/26/2018 Document Reviewed: 06/06/2016 [employer] Interactive Patient Education ?? 2019 [employer]. documented in this encounter Plan of Treatment Not on filedocumented as of this encounter Results (ABNORMAL) Lipid panel (10/06/2020 8:38 AM ORACLE FUSION DEVELOPER) athologist Signature Cholesterol 241 (H) 0 - 199 10/06/2020 [facility] mg/dL 1:40 PM [facility] Comment: Recommended by National Cholesterol Education Program (ATP III) -------- Cholesterol Ranges -------- <200 ?Desirable 200-239 ? Borderline high >=240 ? High Triglycerides 68 0 - 149 mg/dL 10/06/2020 1:40 PM [facility] Comment: -------- TRIG Ranges -------- <150 ?Normal 150-199 ? Borderline high 200-499 ? High >=500 ? Very high HDL 47 40 - 250 mg/dL 10/06/2020 1:40 PM [facility] Comment: -------- HDL Ranges -------- <40 ?Low 40-59 ?Normal >=60 ? Optimal LDL Calculated 180 (H) 0 - 99 mg/dL 10/06/2020 1:40 PM [facility] Comment: -------- LDL Ranges -------- <100 ? Optimal 100-129 ?Near optimal/above op timal 130-159 ?Borderline high 160-189 ?High >=190 ?Very high Fasting? Yes 10/06/2020 8:42 AM [facility] Specimen Anatomical Collection Method Collection Time Receive d Time (Source) Location / / Volume Laterality Blood 10/06/2020 8:38 AM ORACLE FUSION DEVELOPER 12:47 PM ORACLE FUSION DEVELOPER Shelley Porter MD LAB BLOOD ORDERABLES Performing Organization Address City/State/ZIP Code Phon e Number [facility] [address] [place] [phone] Comprehensive metabolic panel (10/06/2020 8:38 AM ORACLE FUSION DEVELOPER) P athologist Signature Total Protein 7.5 6.3 - 8.2 10/06/2020 [facility] g/dL 1:40 PM [facility] Albumin, Serum 4.2 3.5 - 5.0 10/06/2020 [facility] g/dL 1:40 PM [facility] Total Bilirubin <0.7 0.1 - 1.0 10/06/2020 [facility] mg/dL 1:40 PM [facility] AST 29 8 - 43 U/L 10/06/2020 [facility] 1:40 PM [facility] Alkaline 99 38 - 128 10/06/2020 [facility] Phosphatase U/L 1:40 PM [facility] ALT (SGPT) 28 0 - 34 U/L 10/06/2020 [facility] 1:40 PM [facility] Sodium 138 135 - 145 10/06/2020 [facility] mEq/L 1:40 PM [facility] Potassium 4.0 3.5 - 5.1 10/06/2020 [facility] mEq/L 1:40 PM [facility] Chloride 104 98 - 107 10/06/2020 [facility] mEq/L 1:40 PM [facility] CO2 27 22 - 29 10/06/2020 [facility] mmol/L 1:40 PM [facility] BUN 14 5 - 25 10/06/2020 [facility] mg/dL 1:40 PM [facility] Creatinine 0.6 0.4 - 1.2 10/06/2020 [facility] mg/dL 1:40 PM [facility] Glucose 90 70 - 100 10/06/2020 [facility] mg/dL 1:40 PM [facility] Calcium, Total,S 8.6 8.4 - 10.2 10/06/2020 [facility] mg/dL 1:40 PM [facility] Specimen Anatomical Collection Method Collection Time Receive d Time (Source) Location / / Volume Laterality Blood 10/06/2020 8:38 AM ORACLE FUSION DEVELOPER 12:47 PM ORACLE FUSION DEVELOPER Shelley Porter MD LAB BLOOD ORDERABLES Performing Organization Address City/State/ZIP Code Phon e Number [facility] [address] [place] [address] documented in this encounter Visit Diagnoses Diagnosis Essential hypertension - Primary Unspecified essential hypertension Mixed hyperlipidemia Osteopenia, unspecified location documented in this encounter Care Teams Pcb Design Engineer Relationship Specialty Start Date End Date Shelley Porter MD PCP - General Family Medicine 04/19/20 documented as of this encounter
--- OUTSIDE RECORDS SUMMARY | 2022-05-04 10:28 | XMS_ITS | Encounter Summary ---
:[address] [facility] Address [address] [place] [address] Care Team Providers Name Role Phone Shelley Porter MD Primary Care Provider Unavailable Reason for Visit Reason Comments Blood Pressure Check Encounter Details Date Type Department Care Team Description 01/25/2021 Clinical Support [address] [id number] Social History Tobacco Use Types Packs/Day Years [...] Pulse 76 01/25/2021 2:11 PM CDT Temperature - - Respiratory Rate - - Oxygen Saturation - - Inhaled Oxygen Concentration - - Weight - - Height - - Body Mass Index - - documented in this encounter Plan of Treatment Not on filedocumented as of this encounter Visit Diagnoses Not on filedocumented in this encounter Care Teams Negative Retoucher Relationship Specialty Start Date End Date Shelley Porter MD PCP - General Family Medicine 04/19/20 documented as of this encounter
--- OUTSIDE RECORDS SUMMARY | 2022-05-04 10:28 | XMS_ITS | Encounter Summary ---
:[address] [facility] Address [address] [place] [address] Care Team Providers Name Role Phone Shelley Porter MD Primary Care Provider Unavailable Encounter Details Date Type Department Care Team Description 10/11/2020 Orders Only Shelley Bates Pure hypercholesterolemia [address] [facility] Fernando Centeno MD (Primary Dx) [place] [address] Social History Tobacco Use Types Packs/Day Years [...] as of this encounter Visit Diagnoses Diagnosis Pure hypercholesterolemia - Primary documented in this encounter Care Teams Transmission Engineer Relationship Specialty Start Date End Date Shelley Porter MD PCP - General Family Medicine 04/19/20 documented as of this encounter
--- OUTSIDE RECORDS SUMMARY | 2022-05-04 10:28 | XMS_ITS | Encounter Summary ---
:1955 Author Organization [facility] Address [address] [place] [address] Care Team Providers Name Role Phone Shelley Porter MD Primary Care Provider Unavailable Reason for Visit Reason Onset Date Comments Med Refill 10/04/2020 Encounter Details Date Type Department Care Team Description 10/04/2020 Refill [place] Shelley Porter, Essential hypertension [address] [place], [place] [address] Social History Tobacco Use [...] Notes Telephone Encounter - Ana Mckenna - 10/04/2020 12:12 PM CST Fasting lab appt scheduled for Sunday10/06/20 as requested. RBOAT MECHANIC INBOARD Telephone Encounter - Yuki Cornejo RN - 10/04/2020 11:31 AM CST Please call patient to schedule fasting labs. RBOAT MECHANIC INBOARD Telephone Encounter - Shelley Porter MD - 10/04/2020 11:21 AM CST Due for routine labs, already ordered. RBOAT MECHANIC INBOARD Telephone Encounter - Yuki Cornejo RN - 10/04/2020 8:17 AM CST Please review request. RBOAT MECHANIC INBOARD Telephone Encounter - Nikia Clarke LPN - 10/04/2020 7:30 AM MOTORBOAT MECHANIC INBOARD Last visit in provider department: 04/29/2020 Last visit requested medication was discussed: 04/29/20 She will be due for labs in 6 months. Upcoming appointment with provider: Visit date not found Last Rx: 08/22/19 #90 3 refills Requested Prescriptions Pending Prescriptions Disp Refills ??? lisinopril (ZESTRIL) 2.5 MG tablet 90 tablet 0 Sig: Take 1 tablet (2.5 mg total) by mouth 1 (one) time each day Labs: 11/12/18 Vitals: BP Readings from Last 2 Encounters: 04/29/20 132/74 10/03/19 139/70 Patient is due for Labs appointment. PSR/Nurse: Please contact patient to assist with scheduling. RBOAT MECHANIC INBOARD documented in this encounter Plan of Treatment Not on filedocumented as of this encounter Visit Diagnoses Diagnosis Essential hypertension Unspecified essential hypertension documented in this encounter Care Teams Eye Technician Relationship Specialty Start Date End Date Shelley Porter MD PCP - General Family Medicine 04/19/20 documented as of this encounter
--- OUTSIDE RECORDS SUMMARY | 2022-05-04 10:28 | XMS_ITS | Encounter Summary ---
:1955 Author Organization [facility] Address [address] [place] [address] Care Team Providers Name Role Phone None, Pcp Primary Care Provider Unavailable Reason for Visit Reason Comments Med Refill Encounter Details Date Type Department Care Team Description 01/25/2021 Refill Dahl[place] Shelley Porter, Essential hypertension [address] [place], [place] [address] Social History Tobacco Use [...] this encounter Miscellaneous Notes Telephone Encounter - Adelaide Meadows LPN - 01/31/2021 8:13 AM CDT Last Rx: 01/26/2021 # 90, 2 refills Requested Prescriptions Pending Prescriptions Disp Refills ??? lisinopril (ZESTRIL) 2.5 MG tablet [Pharmacy Med Name: LISINOPRIL 2.5MG TABS] 90 tablet 0 Sig: TAKE ONE TABLET BY MOUTH EVERY DAY *DUE FOR ROUTINE LABS* E-Prescribing Status: Receipt confirmed by pharmacy (01/26/2021 ??8:21 AM CDT) documented in this encounter Plan of Treatment Not on filedocumented as of this encounter Visit Diagnoses Diagnosis Essential hypertension Unspecified essential hypertension documented in this encounter Care Teams Rn Patient Services Relationship Specialty Start Date End Date None, Pcp PCP - General 10/19/21 [address] [place] [address] documented as of this encounter
--- OUTSIDE RECORDS SUMMARY | 2022-05-04 10:28 | XMS_ITS | Encounter Summary ---
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 She does have an upcoming appointment scheduled with cardiology. RANCE ACCOUNT EXECUTIVE documented in this encounter Plan of Treatment Not on filedocumented as of this encounter Visit Diagnoses Not on filedocumented in this encounter Care Teams Dovetail Machine Operator Relationship Specialty Start Date End Date Irina Pham APRN, BUSINESS SOLUTION ANALYST PCP - General Family Medicine 07/29/18 04/18/20 [address] [facility] [place] [address] documented as of this encounter
--- OUTSIDE RECORDS SUMMARY | 2022-05-04 10:29 | XMS_ITS | Encounter Summary ---
:1955 Author Organization [facility] Address [address] [place] [address] Care Team Providers Name Role Phone Irina Pham APRN, CNP Primary Care Provider [phone] Reason for Referral Consultation (Routine) - Closed Specialty Diagnoses / Procedures Referred By Contact Refer red To Contact Cardiology Diagnoses Systolic murmur Irina Pham APRN ART COORDINATOR [address] [place] [address] Referral ID Status Reason Start Date Expiration Date Visits V isits Requested Authorized [id number] Closed Specialty 11/13/2018 11/14/2019 1 1 Services Required Scheduling Instructions Please call the Insurance Appraiser stevo gillespie at [phone] ext. [phone] to schedule an appointment. Please schedule in Tarik cortez. Mayra, Alex Consultation (Routine) - Closed Specialty Diagnoses / Procedures Referred By Contact Refer red To Contact Diagnoses Philippe's neuroma of right foot Irina Pham, [facility] [place] FABIANA, ART COORDINATOR [address] [facility] [address] [place] [address] Fax: Referral ID Status Reason Start Date Expiration Date Visits Requ ested Visits Authorized [id number] Closed 11/13/2018 11/14/2019 1 1 Reason for Visit Reason Comments Consult Encounter Details Date Type Department Care Team Description 11/12/2018 Office Visit Tarik López Irina Pham Palpitations (Primary Dx); [address] [place], [place] Systolic murmur; KRISTINE Giron [address] Hyperlipidemia, unspecified hyperlipidem ia type; [address] [place] Dyspnea on exertion; [phone] [id number] Philippe's neuroma of right foot; [phone] Screening, anem ia, deficiency, iron (Work) Social History Tobacco Use Types Packs/Day Years [...] Sign Reading Time Taken Comments Blood Pressure 138/68 11/12/2018 8:01 AM CDT Pulse 82 11/12/2018 8:01 AM CDT Temperature 35.7 ??C (96.2 ??F) 11/12/2018 8:01 AM CDT Respiratory Rate 17 11/12/2018 8:01 AM CDT Oxygen Saturation 97% 11/12/2018 8:01 AM CDT Inhaled Oxygen Concentration - - Weight 96.5 kg (212 lb 11.9 oz) 11/12/2018 8:01 AM CDT Height 155 cm (5' 1.02) 11/12/2018 8:01 AM CDT Body Mass Index 40.17 11/12/2018 8:01 AM CDT documented in this encounter Patient Instructions Patient InstructionsChmer Pham APRN, CNP - 11/12/2018 8:00 AM CDT Please schedule your mammogram in [place] Will call with the lab results Referral to podiatry to [place] [facility] referal documented in this encounter Progress Notes Irina Pham APRN, CNP - 11/12/2018 8:00 AM CDT Estab Patient Visit Subjective Patient ID: Colleen Tolentino is a 63 y.o. female presenting for the following concerns. Chief Complaint Patient presents with ??? Consult HPI: The patient is a pleasant 63-year-old female presenting ambulatory to the clinical setting today to touch base with health issues and to have fasting labs done. The patient has a cardiac murmur, with aprevious recommendation of proceeding with a cardiology consult, which she would like to do at this time. The patient denies any chest pain, discomfort, lightheadedness, dizziness, presyncope, syncope and/or peripheral edema. The patient reports she has had discomfort across her upper back, but attributes this to poor posture, as it does seem to be alleviated when she straighten her back, and is not associated with activity. The patient has had palpitations for unspecified period of time, typically 2-3 beats, which takes her breath away, which is not changing in nature, and deep breathing alleviates her symptoms. The patient reports she does experience dyspnea with exertion, when she initially [place] to walk on the [place] roads, which seems to resolve, during the walk. She feels this is from deconditioning. The patient does experience indigestion relieved with Tums. The patient has a family history of CAD, her father, and a personal history of hyperlipidemia, not on a statin medication. The patient is an only child. 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 The patient reports she has been using inserts for a long period of time, and they have provided significant relief. The patient reports it is the toe abnormality which is concerning her the most. She previously had this evaluated at [facility] in [place] and would like a referral to have this reevaluated. The patient reports her stress level has increased, as her cufdsc-ut-fyw was diagnosed with an incurable brain tumor, about 3 weeks ago. The patient's son has anxiety and has been smoking marijuana. The patient reports she has experienced 4-6 panic attacks in the past 3 weeks, takes a rescue remedy, and within 20 minutes the panic attacks are alleviated. She describes them as feeling anxious and sad.No associated palpitations. The patient acknowledges she likes to be in control, and her lncqtg-ca-mis's situation cannot be controlled, which may be leading to increased stress and ultimately anxiety.The patient has been journaling which has been helpful. The patient acknowledges she needs more selfcare, and joined the gym; however, she has been walking her country roads, which she finds more healing, something she enjoys, and will continue. 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 The patient reports she had left knee pain and swelling in June, to the point she was going up and down the stairs one step at a time. She took apple cider vinegar, and did a homeopathic liver detox, with resolution of the inflammation, and found complete relief. The patient had a colonoscopy about 7 years ago, with a recommendation of repeating it every 10 years. The patient???s last had a DEXA scan on 06/27/2012 and is due. The patient is due for a mammogram, having her last one was on 12/15/2016, and will schedule one. The patient no longer desires to have scr eening Pap smears. ROS: CARDIOVASCULAR: See HPI. The patient experiences dyspnea with exertion, when she initially walks, which improves as she continues her walk, which she feels is from deconditioning. The patient has had palpitations which are not necessarily new. The patient feels a sense of discomfort across her upper back, which she feels is related to her posture, not activity, and when she straightens up, the discomfort is alleviated. She does deny chest pain, discomfort, peripheral edema, lightheadedness, dizziness, presyncope, and/or syncope. The patient has had a cardiac murmur auscultated in the past. RESPIRATORY: See HPI. The patient has had dyspnea with exertion when she initially does her country walk, which she feels is from deconditioning, and the symptom resolves, as she continues to walk. BREASTS: The patient's last mammogram was on 12/15/2016, and is due, and will make an appointment. MUSCULOSKELETAL: See HPI. The patient did have left knee pain, swelling last June, which resolved after taking apple cider vinegar and a homeopathic liver detox. PSYCHIATRIC: See HPI. The patient is having episodes of panic attacks, 4-6 in the past 3 weeks, and does seem to be under increased stress levels with her teenage son's choices, and a wtlkhu-wz-gco whowas diagnosed with incurable brain cancer 3 weeks ago. The following portions of the patient's chart were reviewed in this encounter and updated as appropriate: Tobacco Allergies Meds Problems Med Hx Surg Hx Fam Hx Soc Hx Objective Visit Vitals BP 138/68 (BP Location: Left arm, Patient Position: Sitting) Pulse 82 Temp (!) 35.7 ??C (96.2 ??F) (Temporal) Resp 17 Ht 1.55 m (5' 1.02) Wt 96.5 kg (212 lb 11.9 oz) SpO2 97% BMI 40.17 kg/m?? Smoking Status Never Smoker BSA 2.04 m?? GENERAL: The patient is alert, orientated, and in no apparent distress. CARDIOVASCULAR: Normal heart rate and rhythm. Subtle murmur over the left sternal border, which was more difficult to auscultate than on a previous exam. No peripheral edema. Positive peripheral pulses, x4. RESPIRATORY: Lungs are clear, bilaterally. No wheezing. MUSCULOSKELETAL: Examining the patient's right foot, along the sole, there is a whitish protrusion over the second MTP joint, about 2 x 4 cm in size, with a deviation of her right second toe medial. DIAGNOSTICS: CBC, BMP, lipid, TSH, T4, and T3. EKG on 08/14/2017, according to note in Care Everywhere, normal sinus rhythm without ischemia. Lab Results Component Value Date WBC 6.0 11/12/2018 HGB 13.8 11/12/2018 HCT 41.1 11/12/2018 MCV 89.0 11/12/2018 PLT 196 11/12/2018 Lab Results Component Value Date GLUCOSE 85 11/12/2018 CALCIUM 9.3 11/12/2018 NA 139 11/12/2018 K 3.5 11/12/2018 CO2 27 11/12/2018 CL 104 11/12/2018 BUN 10 11/12/2018 CREATININE 0.5 11/12/2018 Assessment/Plan Colleen was seen today for consult. Diagnoses and all orders for this visit: Palpitations (Primary) - TSH; Future - T4, free; Future - T3; Future - Basic metabolic panel; Future - ECG 12 lead Systolic murmur - Ambulatory referral to Cardiology Hyperlipidemia, unspecified hyperlipidemia type - Lipid panel; Future Dyspnea on exertion Jose Martin's neuroma of right foot - Ambulatory External Referral Screening, anemia, deficiency, iron - CBC Branch Off w/Diff; Future Discussed the plan of care with the patient. The patient will proceed with a cardiology appointment for her systolic murmur, which was not as evident on exam today, palpitations, dyspnea with exertion,and family history of coronary artery disease. The patient will proceed to podiatry to re-evaluate the Philippe's neuroma of her right foot and a referral has been sent to [facility]. The patient will be notified of her lab results and further recommendations. Encouraged a DEXA scan every 2 years, particularly with her family history, which she can consider. The patient agrees to schedule her mammogram at [facility] in [place]. The patient agrees and understands this plan of care. Irina Pham APRN, CNP documented in this encounter Plan of Treatment Scheduled Referrals Name Type Priority Associated Order Schedule Diagnoses Ambulatory External Outpatient Referral Routine Philippe's neuro ma of Ordered: Referral right foot 11/13/2018 Ambulatory referral Outpatient Referral Routine Systolic murmu r Ordered: to Cardiology 11/13/2018 documented as of this encounter Procedures Procedure Name Priority Date/Time Associated Diagnosis Comme nts ECG 12-LEAD Routine 11/12/2018 9:06 AM Palpitations Results f or this CDT procedure are i n the results section . documented in this encounter Results ECG 12 lead (11/12/2018 9:06 AM CDT) Specimen (Source) Anatomical Collection Method Collection Time Re ceived Time Location / / Volume Laterality 11/12/2018 9:06 AM CDT Narrative 11/12/2018 12:00 AM CDT This result has an attachment that is no t available. EKG performed in clinic. Patient tolerat ed well. Paper copy sent for interpretation. Irina Pham APRN, JOE ECG ORDERABLES Basic metabolic panel (11/12/2018 8:59 AM CDT) P athologist Signature Sodium 139 135 - 145 11/12/2018 [facility] [place] mmol/L 9:36 AM CDT [place] Potassium 3.5 3.5 - 5.1 11/12/2018 [facility] [place] mmol/L 9:36 AM CDT [place] Comment: . Chloride 104 98 - 107 mmol/L 11/12/2018 9:36 AM CDT [place] Comment: . CO2 27 22 - 29 mmol/L 11/12/2018 9:36 AM CDT OM [place] Comment: . Creatinine 0.5 0.4 - 1.2 mg/dL 11/12/2018 9:36 AM CDT [facility] [place] Comment: . BUN 10 5 - 25 mg/dL 11/12/2018 9:36 AM CDT C [place] Comment: . Glucose 85 70 - 100 mg/dL 11/12/2018 9:36 AM CDT C [place] Calcium, Total,S 9.3 8.4 - 10.2 mg/dL 11/12/2018 9:36 AM CDT [facility] [place] Comment: . Fasting? Yes 11/12/2018 9:12 AM CDT [facility] [place] Specimen Anatomical Collection Method Collection Time Receive d Time (Source) Location / / Volume Laterality Blood (Blood, 11/12/2018 8:59 AM 11/13/19 19 9:12 Venous) CDT AM CDT Irina Pham APRN, ART COORDINATOR LAB BLOOD ORDERABLES Performing Organization Address City/State/ZIP Code Phon e Number [facility] [place] [address] [place] [address] CBC Branch Off w/Diff (11/12/2018 8:59 AM CDT) P athologist Signature WBC 6.0 3.5 - 10.5 11/12/2018 [facility] [place] K/uL 9:36 AM CDT [place] RBC 4.62 3.90 - 11/12/2018 [facility] [place] 5.00 M/uL 9:36 AM CDT [place] Hemoglobin 13.8 12.0 - 11/12/2018 [facility] [place] 15.5 g/dL 9:36 AM CDT [place] Hematocrit 41.1 35.0 - 11/12/2018 [place] 44.0 % 9:36 AM CDT [place] Platelets 196 150 - 450 11/12/2018 [facility] [place] K/uL 9:36 AM CDT [place] MCV 89.0 81.6 - 11/12/2018 [facility] [place] 98.3 fL 9:36 AM CDT [place] MCH 29.9 26.0 - 11/12/2018 [facility] [place] 32.0 pg 9:36 AM CDT [place] MCHC 33.6 32.0 - 11/12/2018 [facility] [place] 36.0 g/dL 9:36 AM CDT [place] RDW 13.4 11.9 - 11/12/2018 [facility] [place] 15.5 % 9:36 AM CDT [place] Lymphocytes % 34.5 18.0 - 11/12/2018 [facility] [place] 45.0 % 9:36 AM CDT [place] Mid-size Cells 6.5 3.3 - 10.1 11/12/2018 [facility] [place] % 9:36 AM CDT [place] Granulocytes/Khadra 59.0 45.8 - 11/12/2018 [facility] [place] trophils 73.7 % 9:36 AM CDT [place] Lymphocytes 2.1 0.9 - 2.9 11/12/2018 [facility] [place] Absolute K/uL 9:36 AM CDT [place] MIDS Absolute 0.4 0.2 - 0.8 11/12/2018 [facility] [place] K/uL 9:36 AM CDT [place] Granulocytes/Khadra 3.5 2.1 - 8.7 11/12/2018 [facility] [place] trophils K/uL 9:36 AM CDT [place] Absolute Specimen Anatomical Collection Method Collection Time Receive d Time (Source) Location / / Volume Laterality Blood (Blood, 11/12/2018 8:59 AM 11/13/19 19 9:12 Venous) CDT AM CDT Irina Pham APRN, ART COORDINATOR LAB BLOOD ORDERABLES Performing Organization Address City/State/ZIP Code Phon e Number [facility] [place] [address] [place] [address] (ABNORMAL) Lipid panel (11/12/2018 8:59 AM CDT) P athologist Signature Cholesterol 226 (A) 0 - 199 11/12/2018 [facility] mg/dL 1:26 PM CDT [facility] Comment: Recommended by National Cholesterol Education Program (ATP III) -------- Cholesterol Ranges -------- <200 ? Desirable 200-239 ? Borderline high >=240 ? High Triglycerides 76 0 - 149 mg/dL 11/12/2018 1:[address] [facility] Comment: -------- TRIG Ranges -------- <150 ?Normal 150-199 ? Borderline high 200-499 ? High >=500 ? Very high HDL 54 40 - 60 mg/dL 11/12/2018 1:26 PM CDT [facility] Comment: -------- HDL Ranges -------- <40 ?Low 40-59 ?Normal >=60 ? Optimal LDL Calculated 157 (A) 0 - 99 mg/dL 11/12/2018 1:[address] [facility] Comment: -------- LDL Ranges -------- <100 ? Optimal 100-129 ?Near optimal/above op timal 130-159 ?Borderline high 160-189 ?High >=190 ?Very high Specimen Anatomical Collection Method Collection Time Receive d Time (Source) Location / / Volume Laterality Blood (Blood, 11/12/2018 8:59 AM 11/13/19 19 Venous) CDT 12:58 PM CDT Irina Pham APRN, ART COORDINATOR LAB BLOOD ORDERABLES Performing Organization Address City/State/ZIP Code Phon e Number [facility] [address] [place] [address] (ABNORMAL) T3 (11/12/2018 8:59 AM CDT) P athologist Signature T3, Total 1.97 (H) 0.97 - 1.69 11/13/2018 [facility] ng/mL 2:03 PM CDT [facility] Comment: The results from this or any other diagn ostic test should be used and interpreted only in the context of the overall clinical picture. Heterophilic antibodies in serum or plas ma samples may cause interference in immunoassays. ??Exposure to animal antigens, either in the environment or as part of treatment or imaging procedures, may have circulating anti-an imal antibodies present. These antibodies may interfere with the assay reagents to produce unreliable results. ??Results which are inconsistent with clinical observations indicate the need for additional testing. Specimen Anatomical Collection Method Collection Time Receive d Time (Source) Location / / Volume Laterality Blood (Blood, 11/12/2018 8:59 AM 11/14/19 19 Venous) CDT 12:35 PM CDT Irina Pham APRN, CNP LAB BLOOD ORDERABLES Performing Organization Address [facility] Phon e Number [facility] [address] [place] [address] T4, free (11/12/2018 8:59 AM CDT) athologist Signature Free T4 1.10 0.78 - 2.19 11/13/2018 [facility] ng/dL 1:51 PM CDT [facility] Comment: The results from this or any other diagn ostic test should be used and interpreted only in the context of the overall clinical picture. Heterophilic antibodies in serum or plas ma samples may cause interference in immunoassays. ??Exposure to animal antigens, either in the environment or as part of treatment or imaging procedures, may have circulating anti-an imal antibodies present. These antibodies may interfere with the assay reagents to produce unreliable results. ??Results which are inconsistent with clinical observations indicate the need for additional testing. Specimen Anatomical Collection Method Collection Time Receive d Time (Source) Location / / Volume Laterality Blood (Blood, 11/12/2018 8:59 AM 11/14/19 19 Venous) CDT 12:35 PM CDT Irina Pham APRN, JOE LAB BLOOD ORDERABLES Performing Organization Address [facility] Phon e Number [facility] [address] [place] [address] TSH (11/12/2018 8:59 AM CDT) P athologist Signature TSH, Sensitive 1.96 0.46 - 11/13/2018 [facility] 4.68 mIU/L 2:03 PM CDT [facility] Comment: The results from this or any other diagn ostic test should be used and interpreted only in the context of the overall clinical picture. Biotin levels in serum remain elevated f or up to 24 hours after oral or intravenous biotin adminis tration and may interfere with this assay to produce unr eliable results. Heterophilic antibodies in serum or plas ma samples may cause interference in immunoassays. ??Exposure to animal antigens, either in the environment or as part of treatment or imaging procedures, may have circulating anti-an imal antibodies present. These antibodies may interfere with the assay reagents to produce unreliable results. ??Results which are inconsistent with clinical observations indicate the need for additional testing. Specimen Anatomical Collection Method Collection Time Receive d Time (Source) Location / / Volume Laterality Blood (Blood, 11/12/2018 8:59 AM 11/14/19 19 Venous) CDT 12:35 PM CDT Irina Pham APRN, CNP LAB BLOOD ORDERABLES Performing Organization Address City/State/ZIP Code Phon e Number [facility] [address] [place] [address] documented in this encounter Visit Diagnoses Diagnosis Palpitations - Primary Systolic murmur Undiagnosed cardiac murmurs Hyperlipidemia, unspecified hyperlipidem ia type Dyspnea on exertion Other dyspnea and respiratory abnormalit y Philippe's neuroma of right foot Screening, anemia, deficiency, iron Screening for iron deficiency anemia documented in this encounter Care Teams Personnel Representative Relationship Specialty Start Date End Date Irina Pham APRN, ART COORDINATOR PCP - General Family Medicine 07/29/18 04/18/20 [address] [place] [address] documented as of this encounter
--- OUTSIDE RECORDS SUMMARY | 2022-05-04 10:29 | XMS_ITS | Encounter Summary ---
:1955 Author Organization [facility] Address [address] [place] [address] Care Team Providers Name Role Phone Irina Pham APRN, CNP Primary Care Provider [phone] Reason for Visit Reason Comments Personal Problem Encounter Details Date Type Department Care Team Description 07/29/2018 Office Visit Tarik López Irina Pham Stress at home [address] M, JOE JUNG (Primary Dx) [place], [place] [address] [facility] [address] [address] [place] [address] Social History Tobacco Use Types Packs/Day Years [...] Sign Reading Time Taken Comments Blood Pressure 136/84 07/29/2018 9:35 AM ENERGY INFRASTRUCTURE ENGINEER Pulse 79 07/29/2018 9:35 AM ENERGY INFRASTRUCTURE ENGINEER Temperature 36.5 ??C (97.7 ??F) 07/29/2018 9:35 AM ENERGY INFRASTRUCTURE ENGINEER Respiratory Rate 16 07/29/2018 9:35 AM ENERGY INFRASTRUCTURE ENGINEER Oxygen Saturation 97% 07/29/2018 9:35 AM ENERGY INFRASTRUCTURE ENGINEER Inhaled Oxygen Concentration - - Weight - - Height 159 cm (5' 2.6) 07/29/2018 9:35 AM ENERGY INFRASTRUCTURE ENGINEER Body Mass Index - - documented in this encounter Patient Instructions Patient InstructionsChmer Pham APRN, CNP - 07/29/2018 9:20 AM ENERGY INFRASTRUCTURE ENGINEER Recommend exercise, healthy diet, and plenty of rest Recommend Teen Challenge or [place] in [place], [place] GY INFRASTRUCTURE ENGINEER documented in this encounter Progress Notes Irina Pham APRN, CNP - 07/29/2018 9:20 AM CST Estab Patient Visit Subjective Patient ID: Colleen Tolentino is a 63 y.o. female presenting for the following concerns. Chief Complaint Patient presents with ??? Personal Problem HPI: The patient is a pleasant 63-year-old female presenting ambulatory to the clinical setting today with stress in her home environment. The patient and her Alex, adopted 2 children from [facility],when they were young. The mother reports her oldest child has been smoking marijuana and likely for the past year. The patient reports she found marijuana in the glove compartment of his vehicle, a month ago, confronted him, and took his keys away, including his driving privileges. The patient reportsthis has come with confrontation, and outbursts of anger from their son directed towards them. The patient reports her son has expressed his thoughts and feelings, with rages, and even punched the block. The patient reports then he simmers down, has remorse, and they are able to talk to him. The patient feels her son has anger issues, and possibly underling abanddonment issues, an underlying source of his anger. The patient???s son even threatened to move out last evening, but never got dressed or walked away; he has verbally threatened leaving in the past, but has never left. The patient son reports he will not be returning to school. The patient would like to give him his freedom back, but are concerned with his marijuana use, and feel he needs something to withdraw from marijuana. The patient is worried and she has concerns for her son, because he made the comment he likes the buzz, and does not desire to quit. The patient son is 11th grade in [place], had a difficult time learning lastyear, reflected in his grades, and she feels he possibly has a learning disability, but he is also under the influence. The patient reports her son quit smoking marijuana last spring so he could participate in track. The patient denies anxiety or depression, but feels stressed and needs advice. The patient???s son has seen a homeopathic psychologist, about 3 or 4 weeks ago, and met with the school guidance counselor, who is helping him improve his grades. The patient is requesting her son have a clinical appointment to discuss his dependence on marijuana. The patient reports as the stress in her home increases, she is trying to eat healthy, exercise, and will be going to [employer], after this clinical appointment to maintain her physical health. ROS: PSYCHIATRIC: See HPI. The patient is under a great deal of stress at home. The patient reports her oldest son has been smoking marijuana likely for the past year, which is obviously a stressor to the patient. The patient does not have an underlying history of anxiety nor depression, but rather high levels of stress secondary to her son's choices. The following portions of the patient's chart were reviewed in this encounter and updated as appropriate: Tobacco Allergies Meds Problems Med Hx Surg Hx Fam Hx Soc Hx Objective Visit Vitals BP 136/84 (BP Location: Left arm, Patient Position: Sitting) Pulse 79 Temp 36.5 ??C (97.7 ??F) (Temporal) Resp 16 Ht 1.59 m (5' 2.6) SpO2 97% BMI 38.41 kg/m?? Smoking Status Never Smoker BSA 2.07 m?? GENERAL: The patient is alert, orientated, and in no apparent distress. PSYCHIATRIC: The patient's affect is appropriate. DIAGNOSTICS: Assessment/Plan Colleen was seen today for personal problem. Diagnoses and all orders for this visit: Stress at home (Primary) Discussed the plan of care with the patient. Recommend she continue to exercise and eat heatlhy. Recommended Teen Challenge for her son, as this is going to be difficult, if he is not willing to quit at this time, and he should be evaluated by his primary provider. The family can consider family counseling. The patient agrees and understands this plan of care. Irina Pham APRN, JOE GY INFRASTRUCTURE ENGINEER documented in this encounter Plan of Treatment Not on filedocumented as of this encounter Visit Diagnoses Diagnosis Stress at home - Primary documented in this encounter Care Teams Registered Nurse Step Down Relationship Specialty Start Date End Date Irina Pham APRN, CANE FLUME WATCHER PCP - General Family Medicine 07/29/18 04/18/20 100 [facility] [place] [address] documented as of this encounter
--- OUTSIDE RECORDS SUMMARY | 2022-05-04 10:29 | XMS_ITS | Encounter Summary ---
:1955 Author Organization [facility] Address [address] [place] [address] Care Team Providers Name Role Phone Irina Pham APRN, BUILDING INSPECTOR Primary Care Provider [phone] Encounter Details Date Type Department Care Team Description 11/12/2018 Lab Volodymyr López Palpitations; [address] Screening, anemia, deficienc y, iron; Volodymyr López [place] [address] Hyperlipidemia, unspecified hyperlipidemia type [phone] Social History Tobacco Use Types Packs/Day Years [...] Priority Date/Time Associated Diagnosis Comme nts GLOMERULAR Routine 11/12/2018 8:59 AM Palpitations Results f or this FILTRATION RATE CDT procedure ar e in the results section. CBC BRANCH OFFICE Routine 11/12/2018 8:59 AM Screening, anemia , Results for this W/DIFF CDT deficiency, iron procedure a re in the results section. T3 Routine 11/12/2018 8:59 AM Palpitations Results f or this CDT procedure are i n the results section. TSH Routine 11/12/2018 8:59 AM Palpitations Results f or this CDT procedure are i n the results section. T4, FREE Routine 11/12/2018 8:59 AM Palpitations Results f or this CDT procedure are i n the results section. LIPID PANEL Routine 11/12/2018 8:59 AM Hyperlipidemia, Result s for this CDT unspecified procedure are i n hyperlipidemia type the resu lts section. BASIC METABOLIC Routine 11/12/2018 8:59 AM Palpitations Result s for this PANEL CDT procedure are i n the results section. documented in this encounter Results Glomerular filtration rate (GFR) (11/12/2018 8:59 AM CDT) athologist Signature GFR >60 11/12/2018 [facility] 9:36 AM CDT [facility] >60 11/12/2018 [facility] Latvian GFR 9:36 AM CDT [facility] Comment: GFR calculated from serum creatinine v alue Chronic Kidney Disease less than 60 mL/m in/1.73 m2 Kidney Failure less than 15 mL/min/1.73 m2 Note: effective 01/02/07 IDMS-Traceable MDRD Study Equation used. Specimen Anatomical Collection Method Collection Time Receive d Time (Source) Location / / Volume Laterality 11/12/2018 8:59 AM 9 8:59 CDT AM CDT Irina Pham APRN, JOE LAB BLOOD ORDERABLES Performing Organization Address City/State/ZIP Code Phon e Number LABORATORY [address] [place] [address] TSH (11/12/2018 8:59 AM CDT) athologist Signature TSH, Sensitive 1.96 0.46 - 11/13/2018 [facility] L 4.68 mIU/L 2:03 PM CDT CENTER [...] CNP LAB BLOOD ORDERABLES Performing Organization Address [facility] LABORATORY [address] [place] [address] T4, free (11/12/2018 8:59 AM CDT) P athologist Signature Free T4 1.10 0.78 - [...] CNP LAB BLOOD ORDERABLES Performing Organization Address [facility] LABORATORY [address] [place] [address] (ABNORMAL) T3 (11/12/2018 8:59 AM CDT) P athologist Signature T3, Total 1.97 (H) 0.97 - 1.69 11/13/2018 [facility] ng/mL 2:03 PM CDT CENTER [facility] Comment: [...] 11/14/19 19 Venous) CDT 12:35 PM CDT Iirna Pham APRN, BUILDING INSPECTOR LAB BLOOD ORDERABLES Performing Organization Address City/State/ZIP Code Phon e Number LABORATORY [address] [place] [address] (ABNORMAL) Lipid panel (11/12/2018 8:59 AM CDT) athologist Signature Cholesterol 226 (A) 0 - 199 11/12/2018 [facility] mg/dL 1:26 PM T [facility]ENTER [facility] Comment: Recommended by National Cholesterol Education Program (ATP III) -------- Cholesterol Ranges -------- <200 ? Desirable 200-239 ? Borderline high >=240 ? High Triglycerides 76 0 - 149 mg/dL 11/12/2018 1:26 PM CDT LABORATORY Comment: -------- TRIG Ranges -------- <150 ?Normal 150-199 ? Borderline high 200-499 ? High >=500 ? Very high HDL 54 40 - 60 mg/dL 11/12/2018 1:26 PM CDT [facility] LABORATORY Comment: -------- HDL Ranges -------- <40 ?Low 40-59 ?Normal >=60 ? Optimal LDL Calculated 157 (A) 0 - 99 mg/dL 11/12/2018 1:26 PM CDT LABORATORY Comment: -------- LDL Ranges -------- <100 ? Optimal 100-129 ?Near optimal/above op timal 130-159 ?Borderline high 160-189 ?High >=190 ?Very high Specimen Anatomical Collection Method Collection Time Receive d Time (Source) Location / / Volume Laterality Blood (Blood, 11/12/2018 8:59 AM 11/13/19 19 Venous) CDT 12:58 PM CDT Irina Pham APRN, BUILDING INSPECTOR LAB BLOOD ORDERABLES Performing Organization Address City/State/ZIP Code Phon e Number LABORATORY [address] [place] [address] CBC Branch Off w/Diff (11/12/2018 8:59 AM CDT) P athologist Signature WBC 6.0 3.5 - 10.5 11/12/2018 [facility] K/uL 9:36 AM CDT [facility]ALLS RBC 4.62 3.90 - 11/12/2018 [facility] 5.00 M/uL 9:36 AM CDT [facility] Hemoglobin 13.8 12.0 - 11/12/2018 [facility] 15.5 g/dL 9:36 AM CDT [facility] Hematocrit 41.1 35.0 - 11/12/2018 [facility] 44.0 % 9:36 AM CDT [place] Platelets 196 150 - 450 11/12/2018 [facility] K/uL 9:36 AM CDT [place] MCV 89.0 81.6 - 11/12/2018 [facility] 98.3 fL 9:36 AM CDT [facility] MCH 29.9 26.0 - 11/12/2018 [facility] 32.0 pg 9:36 AM CDT [facility] MCHC 33.6 32.0 - 11/12/2018 [facility] 36.0 g/dL 9:36 AM CDT [facility] RDW 13.4 11.9 - 11/12/2018 [facility] 15.5 % 9:36 AM CDT [facility] Lymphocytes % 34.5 18.0 - 11/12/2018 [facility] 45.0 % 9:36 AM CDT [facility] Mid-size Cells 6.5 3.3 - 10.1 11/12/2018 [facility] % 9:36 AM CDT [facility] Granulocytes/Khadra 59.0 45.8 - 11/12/2018 [facility] trophils 73.7 % 9:36 AM CDT [place] Lymphocytes 2.1 0.9 - 2.9 11/12/2018 [facility] Absolute K/uL 9:36 AM CDT [place] MIDS Absolute 0.4 0.2 - 0.8 11/12/2018 [facility] K/uL 9:36 AM CDT [place] Granulocytes/Khadra 3.5 2.1 - 8.7 11/12/2018 [facility] trophils K/uL 9:36 AM CDT [place] Absolute Specimen Anatomical Collection Method Collection Time Receive d Time (Source) Location / / Volume Laterality Blood (Blood, 11/12/2018 8:59 AM 11/13/19 19 9:12 Venous) CDT AM CDT Irina Pham APRN, BUILDING INSPECTOR LAB BLOOD ORDERABLES Performing Organization Address City/State/ZIP Code Phon e Number [facility] [place] [address] [place] [address] Basic metabolic panel (11/12/2018 8:59 AM CDT) P athologist Signature Sodium 139 135 - 145 11/12/2018 [facility] mmol/L 9:36 AM CDT [place] Potassium 3.5 3.5 - 5.1 11/12/2018 [facility] mmol/L 9:36 AM CDT [place] Comment: . Chloride 104 98 - 107 mmol/L 11/12/2018 9:36 AM CDT [facility] [place] Comment: . CO2 27 22 - 29 mmol/L 11/12/2018 9:36 AM CDT [facility] [place] Comment: . Creatinine 0.5 0.4 - 1.2 mg/dL 11/12/2018 9:36 AM CDT [facility] [place] Comment: . BUN 10 5 - 25 mg/dL 11/12/2018 9:36 AM CDT [facility] [place] Comment: . Glucose 85 70 - 100 mg/dL 11/12/2018 9:36 AM CDT [facility] [place] Calcium, Total,S 9.3 8.4 - 10.2 mg/dL 11/12/2018 9:36 AM CDT [facility] [place] Comment: . Fasting? Yes 11/12/2018 9:12 AM CDT [facility] [place] Specimen Anatomical Collection Method Collection Time Receive d Time (Source) Location / / Volume Laterality Blood (Blood, 11/12/2018 8:59 AM 11/13/19 19 9:12 Venous) CDT AM CDT Irina Pham APRN, JOE LAB BLOOD ORDERABLES Performing Organization Address City/State/ZIP Code Phon e Number [facility] [place] [address] [place] [address] documented in this encounter Visit Diagnoses Diagnosis Palpitations Screening, anemia, deficiency, iron Screening for iron deficiency anemia Hyperlipidemia, unspecified hyperlipidem ia type documented in this encounter Care Teams Stone Sawyer Relationship Specialty Start Date End Date Irina Pham APRN, BUILDING INSPECTOR PCP - General Family Medicine 07/29/18 04/18/[address] [place] [address] K[place]STINE MORA [id number] documented as of this encounter
[2022-05-04 13:55] LABS: Basophils Absolute Auto 0.04 K/uL (0.00-0.30); Basophils Percent Auto 0.7 % (0.0-3.0); Eosinophils Absolute Auto 0.14 K/uL (0.00-0.50); Eosinophils Percent Auto 2.6 % (0.0-7.0); Hematocrit 44.1 % (33.0-51.0); Hemoglobin* 14.5 gm/dL (12.0-16.0); Immature Granulocytes Abs Auto 0.01 K/uL (0.00-0.30); Lymphocytes Absolute Auto 1.73 K/uL (0.90-2.90); Lymphocytes Percent Auto 31.5 % (20-44); Mean Corpuscular HGB Conc 33 gm/dL (32-36); Mean Corpuscular Hemoglobin 29 pg (26-34); Mean Corpuscular Volume 89 fL (80-100); Monocytes Percent Auto 6.9 % (0.0-11.0); Neutrophils Absolute Auto 3.19 K/uL (1.7-7.0); Neutrophils Percent Auto 58.1 % (42.0-72.0); Platelet Count* 189 K/uL (140-440); Red Blood Count 4.98 m/uL (4.00-5.20); White Blood Count* 5.49 K/uL (4.50-11.00)
[2022-05-04 14:00] LABS: Slide Review Reflex No
[2022-05-04 14:37] LABS: Albumin* 4.7 g/dL (3.3-5.0); Chloride* 101 mmol/L (96-114)
[2022-05-04 14:38] LABS: Potassium* 4.5 mmol/L (3.6-5.1); Sodium* 139 mmol/L (135-149)
[2022-05-04 14:39] LABS: Amylase* 63 U/L (18-89)
[2022-05-04 14:40] LABS: Alkaline Phosphatase* 114 U/L (40-150); Aspartate Amino Transferase* 33 U/L (12-35); Bilirubin Total* 0.7 mg/dL (0.1-1.5); Blood Urea Nitrogen* 10 mg/dL (7-30); Calcium* 8.2 mg/dL (8.4-10.6); Carbon Dioxide* 26 mmol/L (20-32); Cholesterol* 233 mg/dL (90-199); Creatinine* 0.6 mg/dL (0.5-1.5); Estimated Glomerular Filt Rate 98 ml/min; Glucose* 95 mg/dL (60-115); HDL Cholesterol* 57 mg/dL (>=50); Lipase* 103 U/L (23-300); Total Protein* 7.9 g/dL (6.0-8.3)
[2022-05-04 14:41] LABS: Alanine Aminotransferase* 34 U/L (4-35); LDL Cholesterol Calculated 159 mg/dL (<100); Triglycerides* 86 mg/dL (40-149)
== END 2022-05-04 10:07 | disposition home or self-care (01) ==
PROVIDERS: PCP Nurse Practitioner Family; Visit Provider Nurse Practitioner Family
DX: M54.9 Dorsalgia, unspecified (principal); E78.5 Hyperlipidemia, unspecified
CPT/HCPCS: 36415; 80053; 80061; 82150; 82310; 83690; 83970; 85025

== ENCOUNTER 2022-05-25 08:59 | Outpatient (CLI) | payer BC, SELFPAY ==
--- OUTSIDE RECORDS SUMMARY | 2022-05-25 09:02 | XMS_ITS | Encounter Summary ---
:1955 Author Organization [facility] Address [address] [place] [address] Care Team Providers Name Role Phone Elsewhere, Pcp Primary Care Provider Unavailable Encounter Details Date Type Department Care Team Description 05/04/2022 Clinical Communication Department of Shima Macias Otorhinolaryngology in M, Ph.D. [place], [place] [address] [facility] [address] [place] [phone] Social History Tobacco Use Types Packs/Day Years [...] or relatives? How often do you attend hoahaoism or christianity More than 4 time s per year 09/17/2021 services? Do you belong to any clubs or organizations Yes 09/17/2021 such as hoahaoism groups, unions, fraternal or athletic groups, or [...] or slept in a intermediate (including now)? Education Answer Date Recorded What [...] for this patient by Shima Macias, Ph.D. [facility]-SCHEDULING MANAGER Dated 05/03/22. 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 If the plan of care is not what was intended, please contact Shima Macias, Ph.D. at [phone] or by responding to this message. documented in this encounter Plan of Treatment Not on filedocumented as of this encounter Visit Diagnoses Not on filedocumented in this encounter Care Teams Power Truck Driver Relationship Specialty Start Date End Date Elsewhere, Pcp PCP - General Internal Medicine 10/03/21 documented as of this encounter
--- OUTSIDE RECORDS SUMMARY | 2022-05-25 09:02 | XMS_ITS | Clinical Summary ---
:1955 Author Organization [facility] Address [address] [place] [address] Care Team Providers Name Role Phone Elsewhere, Pcp Primary Care Provider Unavailable Source Comments Patient records contain information from all sites at [facility]. For routine questions regarding patient records, call [phone] during business hours, M-F 8:00 AM - 5:00 PM Central Time. Record requests for emergency care only can be directed to [phone] at any time.[facility] Allergies Active Allergy Reactions Severity Noted Date [...] 11/19/1991, 10/19/1991 MMR 10/13/1990 SARS-COV-2 (COVID-19) - [employer] (12 years 07/27/2021, 021, 10/28/2020 or older) [...] or relatives? How often do you attend shinto or sabianism More than 4 time s per year 09/17/2021 services? Do you belong to any clubs or organizations Yes 09/17/2021 such as shinto groups, unions, fraternal or athletic groups, or [...] Comments Blood Pressure 140/65 10/18/2021 8:25 AM DIRECTOR [facility] C[facility] Pulse 69 10/18/2021 8:25 AM [facility] Temperature 36.8 ??C (98.2 ??F) 10/18/2021 4:00 AM [facility] Respiratory Rate 16 10/18/2021 4:33 AM [facility] Oxygen Saturation 97% 10/18/2021 8:25 AM [facility] Inhaled Oxygen Concentration - - Weight 99.2 kg (218 lb 11.1 oz) 10/17/2021 8:45 AM [facility] Height 155 cm (5' 1.02) 10/17/2021 8:45 AM [facility] Body Mass Index 41.29 10/17/2021 8:45 AM [facility] Plan of Treatment Health Maintenance Due Date Last Done Comments Bone Density Scan (Osteoporosis 1955 Screen) CT Colonography 1955 Cologuard 1955 FIT 1955 Hepatitis C Screening 1955 Zoster Vaccines (1 of 2) 2004 Pneumococcal vaccine (65+ years) 2019 (1 - PCV) Fasting Glucose for Diabetes 08/14/2020 08/14/2017, 017, Screening 08/08/2012 Colonoscopy 01/26/2021 01/26/2011 Colorectal Cancer Screening 01/26/2021 Depression Screening (Annual 08/20/2021 PHQ-2) COVID-19 Vaccine (4 - Booster for 09/21/2021 07/27/2021, , Pfizer series) 10/28/2020 Creatinine Level 10/06/2021 10/06/2020, 08/14/2017, 08/14/2017, Additional history exists Lipid (Cholesterol) Screening 10/06/2021 10/06/2020, 2018, 08/08/2012 Potassium Level 10/06/2021 10/06/2020, 08/14/2017, 08/14/2017, Additional history exists Sodium Level 10/06/2021 10/06/2020, 08/14/2017, 08/14/2017, Additional history exists Influenza Vaccine (#1) 2022 Mammogram 06/24/2022 06/24/2021, 04/29/2020, 12/09/2018, Additional history exists DTaP,Tdap,and Td Vaccines (3 - Td 06/27/2022 06/27/2012, , or Tdap) 03/11/1999 Thyroid Stimulating Hormone (TSH) 09/21/2022 09/21/2021, , test for thyroid function 08/08/2012 Hepatitis B Vaccines Completed 05/11/1992, 04/20/1992, 11/19/1991, Additional history exists Fall Risk Screen (Annual) Completed 10/17/2021 Insurance Payer Benefit Plan Subscriber ID Effective Dates Phone Address Type / Group [place] [id number] 2017-Gage [phone] [address] [address] PPO BLUE SHIELD t [address] [place] [address] Advance Directives For more information, please contact: [phone] Latest Code Status on File Code Status Date Activated Date Inactivated Comments Full Code 10/17/2021 2:14 PM 10/18/2021 12:43 PM Full Code: Discussed Full Code 08/15/2017 1:23 AM 08/15/2017 9:26 PM Full Code: Not Discussed Due to: Not medically appropriate Full Code 08/14/2017 3:50 PM 08/14/2017 9:42 PM Full Code: Not Discussed Due to: Not medically appropriate Care Teams Faa Certified Powerplant Mechanic Relationship Specialty Start Date End Date Elsewhere, Pcp PCP - General Internal Medicine 10/03/21
--- OUTSIDE RECORDS SUMMARY | 2022-05-25 09:02 | XMS_ITS | Encounter Summary ---
:1955 Author Organization [facility] Address [address] [place] [address] Care Team Providers Name Role Phone Elsewhere, Pcp Primary Care Provider Unavailable Reason for Referral Outpatient (Routine) - Authorized Specialty Diagnoses / Procedures Referred By Contact Refer red To Contact Endocrinology Estrella Sevilla M.D. [facility] [address] [place] [phone] Referral ID Status Reason Start Date Expiration Date Visits V isits Requested Authorized [id number] Authorized 10/21/2021 10/21/2022 1 1 R COATING MACHINE OPERATOR Encounter Details Date Type Department Care Team Description 10/21/2021 Orders Only Division of Estrella Sevilla Goiter Multin odular Endocrinology in [place].DNaomi Nontoxic (Primary Dx) [address] [place] [phone] Social History Tobacco Use Types Packs/Day Years [...] How often do you attend mormonism or tenriism More than 4 time s [...] or slept in a jail (including now)? Education Answer Date Recorded What [...] Primary documented in this encounter Care Teams Fast Food Restaurant Manager Relationship Specialty Start Date End Date Elsewhere, Pcp PCP - General Internal Medicine 10/03/21 documented as of this encounter
--- OUTSIDE RECORDS SUMMARY | 2022-05-25 09:02 | XMS_ITS | Encounter Summary ---
:1955 Author Organization [facility] Address [address] [place] [address] Care Team Providers Name Role Phone Elsewhere, [...] How often do you attend yarsani or presybeterian More than 4 time s per year [...] on filedocumented in this encounter Care Teams Patternmaker Sample Relationship Specialty Start Date End Date Elsewhere, Pcp PCP - General Internal Medicine 10/03/21 documented as of this encounter
--- OUTSIDE RECORDS SUMMARY | 2022-05-25 09:02 | XMS_ITS | Encounter Summary ---
:1955 Author Organization [facility] Address [address] [place] [address] Care Team Providers Name Role Phone Elsewhere, Pcp Primary Care Provider Unavailable Reason for Referral Outpatient (Routine) - Authorized Specialty Diagnoses / Procedures Referred By Contact Refer red To Contact Diagnoses Hoarseness [facility] Procedures ENT Speech therapy [address] [place] [phone] Referral ID Status Reason Start Date Expiration Date Visits V isits Requested Authorized [id number] Authorized 05/03/2022 05/03/2023 1 1 Reason for Visit Outpatient (Routine) - Closed Specialty Diagnoses / Procedures Referred By Contact Refer red To Contact Diagnoses Hoarseness [facility] Procedures ENT Speech therapy [address] [place] [phone] Referral ID Status Reason Start Date Expiration Date Visits Requ ested Visits Authorized [id number] Closed 01/25/2022 01/25/2023 1 1 Encounter Details Date Type Department Care Team Description 05/03/2022 Clinical Support Department of Shima Macias Otorhinolaryngology mary lou Del Real, Ph.D. [place], [place] [address] [facility] [address] [place] [phone] Social History Tobacco Use Types Packs/Day Years [...] How often do you attend samaritan or episcopalian More than 4 time s per year [...] Hoarseness documented in this encounter Care Teams Meat Carrier Relationship Specialty Start Date End Date Elsewhere, Pcp PCP - General Internal Medicine 10/03/21 documented as of this encounter
--- OUTSIDE RECORDS SUMMARY | 2022-05-25 09:02 | XMS_ITS | Encounter Summary ---
:1955 Author Organization [facility] Address [address] [place] [address] Care Team Providers Name Role Phone Elsewhere, Pcp Primary Care Provider Unavailable Reason for Visit Outpatient (Routine) - Closed Specialty Diagnoses / Procedures Referred By Contact Refer red To Contact Otorhinolaryngology Diagnoses Hoarseness Paige Nguyen M.D. [facility] [address] [place] [address] Referral ID Status Reason Start Date Expiration Date Visits Requ ested Visits Authorized [id number] Closed 12/14/2021 12/14/2022 1 1 Encounter Details Date Type Department Care Team Description 01/25/2022 Comprehensive Visit Department of Ashanti Hendricks Otorhinolaryngology mary lou Lomeli M.D. [place], [place] [address] [facility] [address] [place] [phone] Social History Tobacco Use Types Packs/Day Years [...] How often do you attend amish or mandaeism More than 4 time s [...] or slept in a fpc (including now)? Education Answer Date Recorded What is the highest level of school Bachelor's degree (e.g., BA, AB, 09/17/2021 you have completed or the highest BS) degree you have received? Sex Assigned at Date Recorded Female 05/11/2021 12:39 PM CDT documented as of this encounter Consult Notes Momo Stokes M.D. - 01/25/2022 11:00 AM CDT [facility] The patient was referred for evaluation today by Dr. Paige Nguyen. Referring provider: Paige Nguyen M.D. CHIEF COMPLAINT Hoarseness HISTORY OF PRESENT ILLNESS Ms. Tolentino is a 66 y.o. year old woman presenting in consultation at the request of Paige Nguyen M.D. for evaluation of dysphonia. The patient underwent a total thyroidectomy with Dr. Paige Ngueyn on 10/17/2021, and has experienced postoperative voice [...] Hoarseness documented in this encounter Care Teams Director Of Residence Life Relationship Specialty Start Date End Date Elsewhere, Pcp PCP - General Internal Medicine 10/03/21 documented as of this encounter
--- OUTSIDE RECORDS SUMMARY | 2022-05-25 09:02 | XMS_ITS | Encounter Summary ---
:1955 Author Organization [facility] Address [address] [place] [address] Care Team Providers Name Role Phone Elsewhere, Pcp Primary Care Provider Unavailable Reason for Referral Outpatient (Routine) - Closed Specialty Diagnoses / Procedures Referred By Contact Refer red To Contact Otorhinolaryngology Diagnoses Hoarseness Paige Nguyen M.D. [facility] [address] [place] [phone] Referral ID Status Reason Start Date Expiration Date Visits Requ ested Visits Authorized [id number] Closed 12/14/2021 12/14/2022 1 1 Encounter Details Date Type Department Care Team Description 12/14/2021 Orders Only Division of Endocrine Sindhu Jovel H oarseness (Primary and Metabolic Surgery R.N. Dx) in [address] [place] [phone] [place], [place] [phone] (Work) [phone] Social History Tobacco Use Types Packs/Day Years [...] How often do you attend cheondoism or episcopal More than 4 time s [...] slept in a group home (including now)? Education Answer Date Recorded [...] Primary documented in this encounter Care Teams Finishing Supervisor Plastic Sheets Relationship Specialty Start Date End Date Elsewhere, Pcp PCP - General Internal Medicine 10/03/21 documented as of this encounter
--- OUTSIDE RECORDS SUMMARY | 2022-05-25 09:02 | XMS_ITS | Encounter Summary ---
:[address] 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] Procedures MO THYROIDECTOMY TOTAL/COMPLETE MO TEST INJ VASC FLOW FLAP/GRFT THYROIDECTOMY - TOTAL PINPOINT indocyanine green fluorescent parathyroid angiography Referral ID Status Reason Start Date Expiration Date Visits Requ ested Visits Authorized [id number] 1 1 Encounter Details Date Type Department Care Team Description 10/17/2021 Anesthesia Event RST ROLEE MARCELO OR Lion Singh, [address] [facility] Jose Alberto, J.DNaomi [place], [place] [address] [place] [address] [place], [place] [phone] (Wo rk) Anesthesia Record Procedure Summary Procedure [...] h andoff to the receiving staff during [facility] we 1. Identified the patient 2. [...] How often do you attend voodoo or hoahaoism More than 4 time s [...] Procedure Summary Date: 10/17/21 Room / Location: [address] / [facility] in [place], [place] Anesthesia Start: 1019 Anesthesia Stop: Procedure: [...] Post Op nausea/vomiting: none Hydration status: euvolemic INVESTIGATOR Anesthesia Procedure Notes - Andrew Rivero R.N., ROVERTON - 10/17/2021 10:41 AM CSTAssociated Order(s): Airway Airway Date/Time: 10/17/2021 10:30 AM Performed by: Andrew Rivero R.N., ROV[place]ON Authorized by: Lion Singh M.D., Nilam Patient location during procedure: OR / Procedure Area PROCEDURE DETAILS: Mask difficulty assessment: oral/nasal airway needed Final airway type: video laryngoscope Laryngeal Manipulation: no Final best view of glottic structures - Cormack/Lehane Score: grade 1 ETT location: oral VL device: glide scope Snowshoe scope blade size: 3 Adult tube size: [...] successful Airway event: no complications ATTESTATION STATEMENT INVESTIGATOR Anesthesia Preprocedure Evaluation - Lion Singh M.D., Nilam - 10/17/2021 10:00 AM CST Preprocedure Anesthesia & H&P Assessment Procedure Summary Date/Time: 10/17/21 1049 Procedures: THYROIDECTOMY, TOTAL. (N/A ) PINPOINT indocyanine green fluorescent parathyroid angiography. 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 Location: [address] / [facility] in [place], [place] Providers: Paige Nguyen M.D. Pertinent components [...] with patient /legal guardian or through an line installer repairer. Risks/Benefits/Alternatives of Blood transfusion discussed with patient / legal guardian, including an opportunity to ask questions and/or decline some or all transfusion therapies. The patient / legalguardian consented to the use of all blood products, as deemed medically necessary Approval to Proceed: approved for anesthesia INVESTIGATOR documented in this encounter Plan of Treatment Not on filedocumented as of this encounter Procedures Procedure Name Priority Date/Time Associated Comments Diagnosis LDA ANE ENDOTRACHEAL Routine 10/17/2021 10:30 Res ults for this AIRWAY AM LEAD INVESTIGATOR procedure are i n the results section. documented in this encounter Results LDA ANE ENDOTRACHEAL AIRWAY (10/17/2021 10:30 AM LEAD INVESTIGATOR) Narrative Andrew Rivero R.N., CCRN - 10:30 AM LEAD INVESTIGATOR Andrew Rivero R.N., BEST ? 10/17/2021 10:41 [...] ETT location: oral VL device: glide scope Snowshoe scope blade size: 3 Adult tube size: [...] dexAMETHasone injection (DECADRON) Given 10/17/2021 10:43 AM LEAD INVESTIGATOR 4 mg intravenous, As needed, Starting on Sun10/17/21 at 1043, Anesthesia Intra-op fentaNYL injection (SUBLIMAZE) Given 10/17/2021 11:55 AM LEAD INVESTIGATOR 25 mcg intravenous, As needed, Starting on Sun10/17/21 at 1026, Anesthesia Intra-op Given 10/17/2021 11:32 AM LEAD INVESTIGATOR 25 mcg Given 10/17/2021 10:44 AM LEAD INVESTIGATOR 50 mcg lactated ringers New Bag 10/17/2021 10:23 AM LEAD INVESTIGATOR intravenous, Continuous Infusion: Per Instructions PRN, Starting on Sun10/17/21 at 1023, Anesthesia Intra-op lidocaine (PF) (cardiac) injection Given 10/17/2021 12:07 PM LEAD INVESTIGATOR 40 mg intravenous, As needed, Starting on Sun10/17/21 at 1028, Anesthesia Intra-op Given 10/17/2021 10:28 AM LEAD INVESTIGATOR 60 mg ondansetron (PF) injection (ZOFRAN) Given 10/17/2021 11:57 AM LEAD INVESTIGATOR 4 mg intravenous, As needed, Starting on Sun10/17/21 at 1157, Anesthesia Intra-op phenylephrine injection Given 10/17/2021 10:43 AM LEAD INVESTIGATOR 100 mcg intravenous, As needed, Starting on Sun10/17/21 at 1043, Anesthesia Intra-op propofol 10 mg/mL infusion Rate/Dose 10/17/2021 75 mcg/kg/min 44.64 (DIPRIVAN) Change 12:14 PM LEAD INVESTIGATOR mL/hr intravenous, Continuous Infusion: Per Instructions PRN, Starting on Sun10/17/21 at 1029, Anesthesia Intra-op Rate/Dose Change 10/17/2021 12:12 PM LEAD INVESTIGATOR 100 mcg/kg/min 59.52 mL/hr Rate/Dose Change 10/17/2021 12:08 PM LEAD INVESTIGATOR 125 mcg/kg/min 74.4 mL/hr propofoL injection (DIPRIVAN) Given 10/17/2021 10:58 AM LEAD INVESTIGATOR 20 mg intravenous, As needed, Starting on Sun10/17/21 at 1028, Anesthesia Intra-op Given 10/17/2021 10:49 AM LEAD INVESTIGATOR 20 mg Given 10/17/2021 10:39 AM LEAD INVESTIGATOR 20 mg remifentaniL 20 mcg/mL in NaCl New Bag 10/17/2021 10:29 0.2 mc g/kg/min 59.52 mL/hr 0.9% 100 mL infusion (ULTIVA) AM LEAD INVESTIGATOR intravenous, Continuous Infusion: Per Instructions PRN, Starting on Sun10/17/21 at 1029, Anesthesia Intra-op succinylcholine (PF) injection (ANECTINE ) Given 10/17/2021 10:28 AM LEAD INVESTIGATOR 100 mg intravenous, As needed, Starting on Sun10/17/21 at 1028, Anesthesia Intra-op documented in this encounter Care Teams Electronic Equipment Repairer Relationship Specialty Start Date End Date Elsewhere, Pcp PCP - General Internal Medicine 10/03/21 documented as of this encounter
--- OUTSIDE RECORDS SUMMARY | 2022-05-25 09:02 | XMS_ITS | Encounter Summary ---
:1955 Author Organization 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 Paige Nguyen Goiter Multinodular 10/18/2021 Hospital, Lissa Lomeli M.D. [place] [address] [place], [place] Floor [address] [address] [facility] [phone] [place], [place] (Work) [phone] Social History Tobacco Use [...] How often do you attend alevism or congregational More than 4 time s [...] Comments Blood Pressure 140/65 10/18/2021 8:25 AM MANUAL PLATE FILLER Pulse 69 10/18/2021 8:25 AM MANUAL PLATE FILLER Temperature 36.8 ??C (98.2 ??F) 10/18/2021 4:00 AM MANUAL PLATE FILLER Respiratory Rate 16 10/18/2021 4:33 AM MANUAL PLATE FILLER Oxygen Saturation 97% 10/18/2021 8:25 AM MANUAL PLATE FILLER Inhaled Oxygen Concentration - - Weight 99.2 kg (218 lb 11.1 oz) 10/17/2021 8:45 AM MANUAL PLATE FILLER Height 155 cm (5' 1.02) 10/17/2021 8:45 AM MANUAL PLATE FILLER Body Mass Index 41.29 10/17/2021 8:45 AM MANUAL PLATE FILLER documented in this encounter Discharge Summaries Torin Chavez M.D. - 10/18/2021 7:50 AM CST DISCHARGE SUMMARY BRIEF OVERVIEW Hospital: [facility] Scientology Emily Discharge Provider: Paige Nguyen M.D. Primary Team: [facility] Primary Care Providers: [...] thyroidectomy, 10/17/2021. The patient was admitted to [facility]. The patient was taken to the operating [...] were provided to the patient and caregiver(s). AL PLATE FILLER documented in this encounter Discharge Instructions AttachmentsThe following attachments cannot be sent through Care Everywhere. Calcitriol (By mouth) (Trinidadian)Levothyroxine (By mouth) (Trinidadian)Antacid, Calcium and Magnesium (By mouth) (Trinidadian)documented in this encounter Medications at Time of [...] in [address] Nguyen. AL PLATE FILLER Lora Garrett Pharm.DNaomi, R.Ph. - 10/17/2021 8:53 [...] -- Take 1 tablet by mouth daily. ofpnjif-cqvwumzps-acwu tablet 10/16/2021 -- -- Take 3 tablets [...] -- Take 2.5 mg by mouth daily. [facility] Prescription (Allergy Immunotherapy) 10/17/2021 06/27/12 -- Take 1 each by mouth as needed (allergies). Homeopathic remedy drops multivitamin (multivitamin) tablet 10/16/2021 -- -- Take 1 tablet by mouth daily. omega-3 fatty acids 1,250 mg capsule 10/16/2021 -- -- Take 1,200 mg by mouth daily. RED YEAST RICE ORAL 10/16/2021 -- -- Take 1 tablet by mouth 2 (two) times a day. AL PLATE FILLER documented in this encounter Nursing Notes Anabel Rosales R.N. - 10/18/2021 10:33 AM CST Patient stable at discharge. Education was reviewed with patient. Any further questions were answered. Pain was well controlled with oral pain medications. Patient discharged home with significant other. Patient needs addressed. AL PLATE FILLER Lora Rebolledo R.N. - 10/18/2021 5:12 AM CST Shift Goals: Clinical Goals for the Shift: rest overnight Identify possible barriers to meeting goals/advancing plan of care: none End of Shift Summary: Patient rested well overnight with minimal pain which was managed with currentregimen. Vitals remained stable with no acute events overnight. AL PLATE FILLER documented in this encounter OR Notes Op Note - Paige Nguyen M.D. - 10/17/2021 10:51 AM CST Pre-op Diagnosis Goiter Multinodular Nontoxic Post-op Diagnosis Goiter Multinodular Nontoxic A assistant chief nursing officer actively participated and was necessary for one [...] was mobilized in a similar fashion. An broker assistant was necessary to help expose and [...] without complication...Dictated by Dr. Patrick Nguyen M.D. AL PLATE FILLER Brief Op Note - Torin Chavez M.D. - 10/17/2021 10:51 AM CST Pre-op Diagnosis Goiter Multinodular Nontoxic Post-op Diagnosis Goiter Multinodular Nontoxic Findings Multinodular goiter. Near total thyroidectomy Complications None Darius Chavez M.D. AL PLATE FILLER documented in this encounter Miscellaneous Notes Hospital Course - Torin Chavez M.D. - 10/17/2021 1:49 PM CST Multinodular goiter status post near total thyroidectomy, 10/17/2021. The patient was admitted to [facility]. The patient was taken to the operating [...] patient's home medications were restarted as indicated. AL PLATE FILLER documented in this encounter Plan of Treatment Not on filedocumented as of this encounter Procedures Procedure Name Priority Date/Time Associated Diagnosis Comme nts CALCIUM, TOT, S/P Routine 10/18/2021 7:03 Results for this AM MANUAL PLATE FILLER procedure are i n the results section. PARATHYROID HORMONE Routine 10/17/2021 2:42 Resul ts for this (PTH), S PM MANUAL PLATE FILLER procedure are i n the results section. ADULT OXYGEN THERAPY Routine 10/17/2021 12:39 PM MANUAL PLATE FILLER SURGICAL PATHOLOGY, Routine 10/17/2021 11:23 Goiter Multinodul ar Results for this [facility] AM MANUAL PLATE FILLER Nontoxic procedure are i n the results section. THYROIDECTOMY - TOTAL 10/17/2021 10:04 Goiter Multinod ular AM MANUAL PLATE FILLER Nontoxic documented in this encounter Results (ABNORMAL) Calcium, Total (10/18/2021 7:03 AM MANUAL PLATE FILLER) P athologist Signature Calcium, 7.9 (L) 8.8 - 10.2 10/18/2021 DTL Total, S mg/dL 7:43 AM MANUAL PLATE FILLER Specimen Anatomical Collection Method Collection Time Receive d Time (Source) Location / / Volume Laterality Blood (Blood, 10/18/2021 7:03 AM 10/19/19 7:03 Venous) MANUAL PLATE FILLER AM MANUAL PLATE FILLER Torin Chavez M.D. LAB BLOOD ADD-ON Performing Organization Address City/[facility] Phon e Number [facility] - [address] [place] [address] [address] [facility] [address] Laboratories-[address] (ABNORMAL) Parathyroid Hormone (PTH) (10/17/2021 2:42 PM MANUAL PLATE FILLER) Patholo gist Method Time [facility] Parathyroid <6.0 (L) 15 - 65 10/17/2021 DT Hormone (PTH), S pg/mL 3:37 PM MANUAL PLATE FILLER Specimen Anatomical Collection Method Collection Time Receive d Time (Source) Location / / Volume Laterality Blood (Blood, 10/17/2021 2:42 PM 10/17/19 3:09 Venous) MANUAL PLATE FILLER PM MANUAL PLATE FILLER Torin Chavez M.D. LAB BLOOD ADD-ON Performing Organization Address [facility] Phon e Number [facility] - [address] [address] Laboratories-[address] Surgical Pathology, Frozen Lab (10/17/2021 11:23 AM MANUAL PLATE FILLER) Component Value Ref Test Analysis Performed Pathologis t Range Method Time At [facility] 10/20/2021 METH 4:20 PM MANUAL PLATE FILLER Report Anca Salazar M.D. 10/20/2021 METH electronically 4:20 PM signed by MANUAL PLATE FILLER I verify that I have examined all relevant slides/materials for the specimen(s) and rendered or confirmed the diagnosis. Gross Description A. ??Received fresh labeled left thyroid is an 18 gram 10/20/2021 METH partial thyroidectomy with 7.1 x 3.2 x 2.6 cm left lobe. 4:20 PM The lobe is received disrupted. ??There is a 1 x 0.6 x 0.4 MANUAL PLATE FILLER cm reyes-white area identified. ??The remainder of the thyroid lobe is uniformly nodular. ??Supervisor Molding tissue submitted for permanent sections. ??Grossed by Parvez Salazar M.D. -Pathology Resident. B. ??Received fresh labeled right thyroid is a 40 gram partially disrupted partial thyroidectomy with a 7.1 x 4.9 x 3.5 cm right lobe, in aggregate. ??The thyroid parenchyma demonstrates multiple reyes-brown soft nodules, 0.5 to 5.1 cm. ??The largest nodule is detached and shows hemorrhagic and cystic spaces. ??Supervisor Molding tissue submitted for permanent sections. ??Grossed by Derian Rodgers, PA([facility]). Block Summary A Left thyroid 10/20/2021 METH A1 Left thyroid 4:20 PM A2 Left thyroid agency service representative section C ST B Right thyroid B1 Right superior B2 Right mid B3 Right inferior B4 Dominant detached nodule Interpretation FINAL DIAGNOSIS 10/20/2021 METH 4:20 PM A. ??Thyroid, left, left lobectomy: ??Hyperplastic nodules. MANUAL PLATE FILLER Mild chronic thyroiditis. B. ??Thyroid, right, right lobectomy: ??Hyperplastic in adenomatous nodules with degenerative features. ??Mild chronic thyroiditis. Congo red performed at [facility] on section from block B4 is negative. Specimen (Source) Anatomical Collection Method Collection Time Re ceived Time Location / / Volume Laterality Tissue (Thyroid) 10/17/2021 11:23 AM MANUAL PLATE FILLER Tissue (Thyroid) 10/17/2021 11:32 AM MANUAL PLATE FILLER Narrative This result has an attachment that is no t available. Paige Nguyen M.D. LAB SURG PATH ORDERABLES Performing Organization Address City/State/ZIP Code Phon e Number [facility] - [address] [place], [place] [address] [place] [address] Laboratories-[facility] [address] documented in this encounter Visit Diagnoses Diagnosis Goiter Multinodular Nontoxic - Primary documented in this encounter Admitting Diagnoses Diagnosis Goiter Multinodular Nontoxic documented in this encounter Administered Medications Inactive Administered Medications - up to 3 most recent administrations Medication Order MAR Action Action Date Dose Rate Site acetaminophen tablet 1,000 mg Given 10/17/2021 9:50 AM MANUAL PLATE FILLER 1,000 mg (TYLENOL) 1,000 mg, oral, Once, On Sun10/17/21 at 1000, For 1 dose, Pre-Op, Electrician Journeyman Wireman, PreOp with sips acetaminophen tablet 1,000 mg (TYLENOL) Given 10/18/2021 9:23 AM MANUAL PLATE FILLER 1,000 mg 1,000 mg, oral, Every 6 hours, First dose (after last modification) on Sun10/17/21 at 2200, (not to exceed 4 grams in 24 hours) Given 10/18/2021 4:05 AM MANUAL PLATE FILLER 1,000 mg Given 10/17/2021 10:09 PM MANUAL PLATE FILLER 1,000 mg acetaminophen tablet 500 mg (TYLENOL) Given 10/17/2021 3:54 PM MANUAL PLATE FILLER 500 mg 500 mg, oral, Every 6 hours, First dose on Sun10/17/21 at 1600, (not to exceed 4 grams in 24 hours) calcitRIOL capsule 0.5 mcg (ROCALTROL) Given 10/18/2021 8:24 AM MANUAL PLATE FILLER 0.5 mcg 0.5 mcg, oral, Daily, First dose on Sun10/17/21 at 1730 Given 10/17/2021 6:02 PM MANUAL PLATE FILLER 0.5 mcg calcium carbonate chewable tablet Given 10/18/2021 8:2 4 AM MANUAL PLATE FILLER 600 mg of calcium 600 mg of calcium (TUMS E-X) 600 mg of calcium, oral, 3 times daily, First dose on Sun10/17/21 at 2100, Doses listed are in mg of elemental calcium. Take with food. 750 mg calcium carbonate contains 300 mg of elemental calcium. Given 10/17/2021 8:45 PM MANUAL PLATE FILLER 600 mg of calcium fentaNYL injection 25 mcg (SUBLIMAZE) Given 10/17/2021 12:51 PM MANUAL PLATE FILLER 25 mcg 25 mcg, intravenous, Every 2 min PRN, For pain 4 or greater (maximum 100 mcg). If max dose of Fentanyl is reached and if pain is greater than 4, discontinue Fentanyl: give Hydromorphone, Starting on Sun10/17/21 at 1239, PACU (only) Given 10/17/2021 12:48 PM MANUAL PLATE FILLER 25 mcg Given 10/17/2021 12:44 PM MANUAL PLATE FILLER 25 mcg HYDROmorphone (PF) injection 0.2 mg Given 10/17/2021 1:45 PM MANUAL PLATE FILLER 0.2 mg (DILAUDID) 0.2 mg, intravenous, Every 5 min PRN, moderate pain or score 4-6 of 10, severe pain or score 7-10 of 10, Starting on Sun10/17/21 at 1239, PACU (only), Up to maximum total dose of 2 mg Given 10/17/2021 1:40 PM MANUAL PLATE FILLER 0.2 mg labetalol injection 5 mg (NORMODYNE,AHMADI DATE) Given 10/17/2021 1:16 PM MANUAL PLATE FILLER 5 mg 5 mg, intravenous, Every 15 min PRN, high blood pressure, For SBP>160 mmHG. Hold for heart rate<60, Starting on Sun10/17/21 at 1239, For 2 doses, PACU (only), Follow institution's IV administration guidelines Given 10/17/2021 1:00 PM MANUAL PLATE FILLER 5 mg lactated ringers Continued from OR 10/17/2021 1:01 PM MANUAL PLATE FILLER 20 mL/hr 20 mL/hr 20 mL/hr, intravenous, Continuous, Starting on Sun10/17/21 at 1100, PACU & Post-Op lisinopriL tablet 2.5 mg (PRINIVIL,ZESTR IL) Given 10/18/2021 8:24 AM MANUAL PLATE FILLER 2.5 mg 2.5 mg, oral, Daily, First dose on Sun10/17/21 at 1430 Given 10/17/2021 2:54 PM MANUAL PLATE FILLER 2.5 mg NaCl 0.45 % infusion New Bag 10/17/2021 2:39 PM MANUAL PLATE FILLER 30 mL/hr 30 mL/hr 30 mL/hr, intravenous, [...] Recently Administered Medications Times are shown in MANUAL PLATE FILLER. Scheduled Medication Order 10/16/2021 10/17/2021 10/18/2021 acetaminophen tablet 1,000 mg (TYLENOL) (COMPLETED) 0950 (Given - Provider: Paz Kohli R.N.) 1,000 mg, oral, Once, On Sun10/17/21 at 1000, For 1 dose, Pre-Op, Electrician Journeyman Wireman, PreOp with sips acetaminophen tablet 1,000 mg [...] 1204 documented in this encounter Care Teams Wire Worker Relationship Specialty Start Date End Date Elsewhere, Pcp PCP - General Internal Medicine 10/03/21 documented as of this encounter
--- OUTSIDE RECORDS SUMMARY | 2022-05-25 09:02 | XMS_ITS | Encounter Summary ---
:1955 Author Organization [facility] Address [address] [place] [address] Care Team Providers Name Role Phone Elsewhere, Pcp Primary Care Provider Unavailable Encounter Details Date Type Department Care Team Description 01/20/2022 Clinical Communication Visit Review in [place], [place] [address] [place] [address] Social History Tobacco Use Types [...] How often do you attend scientologist or hindu More than 4 time s [...] on filedocumented in this encounter Care Teams Protection Specialist Relationship Specialty Start Date End Date Elsewhere, Pcp PCP - General Internal Medicine 10/03/21 documented as of this encounter
--- OUTSIDE RECORDS SUMMARY | 2022-05-25 09:02 | XMS_ITS | Encounter Summary ---
:1955 Author Organization [facility] Address [address] [place] [address] Care Team Providers Name Role Phone Elsewhere, Pcp Primary Care Provider Unavailable Reason for Referral Speech Pathology (Routine) - Closed Specialty Diagnoses / Procedures Referred By Contact Refer red To Contact Diagnoses Hoarseness Ashanti Hendricks M.D. [facility] Procedures MEDICAL STAFF ASSISTANT Voice evaluation [address] [place] [address] Referral ID Status Reason Start Date Expiration Date Visits Requ ested Visits Authorized [id number] Closed 12/14/2021 12/14/2022 1 1 Encounter Details Date Type Department Care Team Description 12/14/2021 Clinical Department of Cassandra Smith Otorhinolaryngology in [place], [place] [address] [place] [address] Social History Tobacco Use Types Packs/Day [...] or relatives? How often do you attend lutheran or mormonism More than 4 time s per year 09/17/2021 services? Do you belong to any clubs or organizations Yes 09/17/2021 such as lutheran groups, unions, fraternal or athletic groups, or [...] or slept in a snf (including now)? Education Answer Date Recorded What [...] me. She would also benefit from an MEDICAL STAFF ASSISTANT appointment same day but after seeing me. [...] Primary documented in this encounter Care Teams Printer Machine Relationship Specialty Start Date End Date Elsewhere, Pcp PCP - General Internal Medicine 10/03/21 documented as of this encounter
--- OUTSIDE RECORDS SUMMARY | 2022-05-25 09:02 | XMS_ITS | Encounter Summary ---
:1955 Author Organization [facility] Address [address] [place] [address] Care Team Providers Name Role Phone Elsewhere, Pcp Primary Care Provider Unavailable Reason for Referral Outpatient (Routine) - Closed Specialty Diagnoses / Procedures Referred By Contact Refer red To Contact Diagnoses Hoarseness [facility] Procedures ENT Speech therapy [address] [place] [phone] Referral ID Status Reason Start Date Expiration Date Visits Requ ested Visits Authorized [id number] Closed 01/25/2022 01/25/2023 1 1 Reason for Visit Speech Pathology (Routine) - Closed Specialty Diagnoses / Procedures Referred By Contact Refer red To Contact Diagnoses Hoarseness Ashanti Hendricks M.D. [facility] Procedures HIDE TANNER Voice evaluation [address] [place] [phone] Referral ID Status Reason Start Date Expiration Date Visits Requ ested Visits Authorized [id number] Closed 12/14/2021 12/14/2022 1 1 Encounter Details Date Type Department Care Team Description 01/25/2022 Comprehensive Visit Department of Shima Macias Otorhinolaryngology mary lou Del Real, Ph.D. [place], [place] [address] [facility] [address] [place] [phone] Social History Tobacco Use Types Packs/Day Years [...] How often do you attend yarsanism or temple More than 4 time s [...] the most. 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 PHYSICAL EXAMINATION I. Phonation: Phonatory quality [...] Hoarseness documented in this encounter Care Teams Service Operations Manager Relationship Specialty Start Date End Date Elsewhere, Pcp PCP - General Internal Medicine 10/03/21 documented as of this encounter
--- OUTSIDE RECORDS SUMMARY | 2022-05-25 09:03 | XMS_ITS | Encounter Summary ---
:1955 Author Organization [facility] Address [address] [place] [address] Care Team Providers Name Role Phone Unavailable Primary Care Provider Unavailable Encounter Details Date Type Department Care Team Description 09/20/2021 Clinical Communication Division of Zelda Dang Endocrinology in [place] Alberto [place], [place] [address] [facility] [address] [place] [phone] Social History Tobacco Use Types Packs/Day Years [...] How often do you attend moravian or jew More than 4 time s [...]
--- OUTSIDE RECORDS SUMMARY | 2022-05-25 09:03 | XMS_ITS | Encounter Summary ---
:1955 Author Organization [facility] Address [address] [place] [address] Care Team Providers Name Role Phone Unavailable Primary Care Provider Unavailable Encounter Details Date Type Department Care Team Description 09/21/2021 Hospital Encounter Department of Estrella Sevilla Goiter Multinodular Laboratory Medicine M.DNaomi Nontoxic and Pathology, [address] [place] [address] in [place], [place] [address] [place] [address] [place], [place] (Work) [phone] Social History Tobacco Use Types Packs/Day Years [...] How often do you attend moravian or pentecostalism More than 4 time s [...] or slept in a assisted (including now)? Education Answer Date Recorded What [...] mg(1,250mg) -125 mouth daily. unit per tablet [id number]-glkydcwbr-dlhr Take 3 tablets by 0 10/18/2021 tablet mouth daily. Calcium 1000 mg/magnesium 500 mg/zinc 25 mg cholecalciferol Take 2,000 Units by 0 10/18/2021 (for_VITAMIN D3) 2,000 mouth daily. Unit capsule omega 9-ttk-oqm-fish oil Take 1 capsule by 0 10/1910/03/2021 600 mg-216 mg- 324 mouth daily. mg-1,200 mg capsule,delayed release(DR/EC) documented as of this encounter Plan of Treatment Not on filedocumented as of this encounter Procedures Procedure Name Priority Date/Time Associated Diagnosis Comme nts 25-HYDROXYVITAMIN Routine 09/21/2021 12:11 Goiter Multinodular Results for this D2 AND D3, S PM CLEAN IN PLACES OPERATOR Nontoxic procedure are i n the results section. CBC WITHOUT Routine 09/21/2021 12:11 Goiter Multinodular Resu lts for this DIFFERENTIAL, B PM CLEAN IN PLACES OPERATOR Nontoxic procedure ar e in the results section. THYROID-STIMULATING Routine 09/21/2021 12:11 Goiter Multinodul ar Results for this HORMONE-SENSITIVE PM CLEAN IN PLACES OPERATOR Nontoxic procedure are in (S-TSH) the results section. T4 (THYROXINE), Routine 09/21/2021 12:11 Goiter Multinodular R esults for this FREE, S PM CLEAN IN PLACES OPERATOR Nontoxic procedure are i n the results section. CALCIUM, TOT, S/P Routine 09/21/2021 12:11 Goiter Multinodular Results for this PM CLEAN IN PLACES OPERATOR Nontoxic procedure are i n the results section. documented in this encounter Results T4 (Thyroxine), Free (09/21/2021 12:11 PM CLEAN IN PLACES OPERATOR) athologist Signature T4 (Thyroxine), 1.2 0.9 - 1.7 09/21/2021 DTL Free, S ng/dL 1:24 PM CLEAN IN PLACES OPERATOR Specimen Anatomical Collection Method Collection Time Receive d Time (Source) Location / / Volume Laterality Blood (Blood, 09/21/2021 12:11 09/21/2021 Venous) PM CLEAN IN PLACES OPERATOR 12:52 PM CLEAN IN PLACES OPERATOR Estrella Sevilla M.D. LAB BLOOD ADD-ON Performing Organization Address City/State/ZIP Code Phon e Number [facility] - [address] [place], [place] [address] [facility] [place] [address] Laboratories-[facility] [address] Calcium, Total (09/21/2021 12:11 PM CLEAN IN PLACES OPERATOR) athologist Signature Calcium, Total, 9.0 8.8 - 10.2 09/21/2021 DTL S mg/dL 1:24 PM CLEAN IN PLACES OPERATOR Specimen Anatomical Collection Method Collection Time Receive d Time (Source) Location / / Volume Laterality Blood (Blood, 09/21/2021 12:11 09/21/2021 Venous) PM CLEAN IN PLACES OPERATOR 12:52 PM CLEAN IN PLACES OPERATOR Estrella Sevilla M.D. LAB BLOOD ADD-ON Performing Organization Address City/[facility] Phon e Number [facility] - 200 [place], [place] [address] [facility] [place] [address] [address] S-TSH (Thyroid-Stimulating Hormone - Sensitive) (09/21/2021 12:11 PM CLEAN IN PLACES OPERATOR) athologist Signature TSH, Sensitive 1.7 0.3 - 4.2 09/21/2021 DTL mIU/L 1:24 PM CLEAN IN PLACES OPERATOR Specimen Anatomical Collection Method Collection Time Receive d Time (Source) Location / / Volume Laterality Blood (Blood, 09/21/2021 12:11 09/21/2021 Venous) PM CLEAN IN PLACES OPERATOR 12:52 PM CLEAN IN PLACES OPERATOR Estrella Sevilla M.D. LAB BLOOD ADD-ON Performing Organization Address City/[facility] Phon e Number [facility] - 200 [place], [place] [address] [facility] [place] [address] [address] CBC without Differential (09/21/2021 12:11 PM CLEAN IN PLACES OPERATOR) athologist Signature Hemoglobin 14.3 11.6 - 09/21/2021 DTL 15.0 g/dL 12:45 PM CLEAN IN PLACES OPERATOR Hematocrit 43.8 35.5 - 09/21/2021 DTL 44.9 % 12:45 PM CLEAN IN PLACES OPERATOR Erythrocytes 4.79 3.92 - 09/21/2021 DTL 5.13 12:45 PM CLEAN IN PLACES OPERATOR x10(12)/L MCV 91.4 78.2 - 09/21/2021 DTL 97.9 fL 12:45 PM CLEAN IN PLACES OPERATOR RBC Distrib Width 13.2 12.2 - 09/21/2021 DTL 16.1 % 12:45 PM CLEAN IN PLACES OPERATOR Platelet Count 186 157 - 371 09/21/2021 DTL x10(9)/L 12:45 PM CLEAN IN PLACES OPERATOR Leukocytes 6.3 3.4 - 9.6 09/21/2021 DTL x10(9)/L 12:45 PM CLEAN IN PLACES OPERATOR Specimen Anatomical Collection Method Collection Time Receive d Time (Source) Location / / Volume Laterality Blood (Blood, 09/21/2021 12:11 09/21/2021 Venous) PM CLEAN IN PLACES OPERATOR 12:38 PM CLEAN IN PLACES OPERATOR Estrella Sevilla M.D. LAB BLOOD ADD-ON Performing Organization Address City/[facility] Phon e Number [facility] - [address] [place], [place] [address] [facility] [place] [address] Laboratories-[facility] [address] 25-Hydroxyvitamin D2 and D3 (09/21/2021 12:11 PM CLEAN IN PLACES OPERATOR) athologist Signature 25-Hydroxy D2 <4.0 ng/mL 09/22/2021 SDSC 3:15 PM CLEAN IN PLACES OPERATOR 25-Hydroxy D3 44 ng/mL 09/22/2021 SDSC 3:15 PM CLEAN IN PLACES OPERATOR 25-Hydroxy D 44 ng/mL 09/22/2021 SDSC Total 3:15 PM CLEAN IN PLACES OPERATOR Comment: ----REFERENCE VALUE---- 25-HYDROXY D TOTAL (D2+D3) Optimum level s in the healthy population are 20-50, patients with bone disease may benefit from higher levels within this r [place]. ----ADDITIONAL INFORMATION---- This test was developed and its performa nce characteristics determined by [facility] in a manner consistent with CLIA requirements. This test has not been cleared or approved by the U.S. Franc[place] d and Drug Administration. Specimen Anatomical Collection Method Collection Time Receive d Time (Source) Location / / Volume Laterality Blood (Blood, 09/21/2021 12:11 09/22/2021 7:15 Venous) PM CLEAN IN PLACES OPERATOR AM CLEAN IN PLACES OPERATOR Estrella Sevilla M.D. LAB BLOOD ADD-ON Performing Organization Address City/State/ZIP Code Phon e Number [facility] [address] [place], [place] [address] [facility] [place] [address] Laboratory Medicine and Pathology [address] [place] documented in this encounter Visit Diagnoses Diagnosis Goiter Multinodular Nontoxic documented in this encounter
--- OUTSIDE RECORDS SUMMARY | 2022-05-25 09:03 | XMS_ITS | Encounter Summary ---
:1955 Author Organization [facility] Address [address] [place] [address] Care Team Providers Name Role Phone Elsewhere, Pcp Primary Care Provider Unavailable Encounter Details Date Type Department Care Team Description 10/04/2021 Orders Only Division of Endocrine Sindhu Jovel G oiter Multinodular and Metabolic Surgery R.N. Nontoxic (Primary Dx) in [place], [address] [place] [address] [place] [phone] [place], [place] [phone] (Work) [phone] Social History Tobacco Use Types Packs/Day Years [...] or relatives? How often do you attend sikhism or mu-ism More than 4 time s per year 09/17/2021 services? Do you belong to any clubs or organizations Yes 09/17/2021 such as sikhism groups, unions, fraternal or athletic groups, or [...] Coronavirus-2 RNA, V Asymptomatic (10/14/2021 10:27 AM HOSPITAL INSURANCE REPRESENTATIVE) [facility] Method Time Signature SARS-CoV-2 Swab, 10/14/2021 ECLR Specimen Nasopharynx 10:10 PM Source HOSPITAL INSURANCE REPRESENTATIVE SARS CoV-2 Undetected Undetected 10/14/2021 ECLR RNA, TMA 10:10 PM HOSPITAL INSURANCE REPRESENTATIVE Comment: SARS-CoV-2 RNA absent. This result does not rule out COVID-19 in the patient, as the sensitivity of the test depends o n the timing of the specimen collection and the quality of the specim en. Result should be correlated with patient's history and clinical presentat ion. ----ADDITIONAL INFORMATION---- This molecular amplification test was pe rformed using the Aptima SARS-CoV-2 assay ([employer] on the Nexgates tem under emergency use authorization (EUA) by the U.S. Food and Drug Administ ration. Fact sheets for this EUA assay can be fo und at the following links: For Healthcare Providers: https://www.fd a.gov/media/286515/download For Patients: https://www.fda.gov/media/ 698116/download Specimen Anatomical Collection Method Collection Time Receive d Time (Source) Location / / Volume Laterality Varies 10/14/2021 10:27 10/14/2021 2:43 (Nasopharynx) AM HOSPITAL INSURANCE REPRESENTATIVE PM HOSPITAL INSURANCE REPRESENTATIVE Paige L Hancock M.D. LAB MICROBIOLOGY - GENERAL O RDERABLES Performing Organization Address City/State/ZIP Code Phon e Number [facility]- [address] [place] [phone] [facility] [place] [address] System [address] documented in this encounter Visit Diagnoses Diagnosis Goiter Multinodular Nontoxic - Primary documented in this encounter Additional Health Concerns Infection Onset Date Last Indicated Resolved Time COVID19 Pending 10/14/2021 10/14/2021 10/14/2021 10:11 PM HOSPITAL INSURANCE REPRESENTATIVE documented as of this encounter Care Teams Senior Net Software Engineer Relationship Specialty Start Date End Date Elsewhere, Pcp PCP - General Internal Medicine 10/03/21 documented as of this encounter
--- OUTSIDE RECORDS SUMMARY | 2022-05-25 09:03 | XMS_ITS | Encounter Summary ---
:1955 Author Organization [facility] Address [address] [place] [address] Care Team Providers Name Role Phone Unavailable Primary Care Provider Unavailable Reason for Referral Specialty Diagnoses / Procedures Referred By Contact Refer red To Contact [facility] [address] [place] [address] Referral ID Status Reason Start Date Expiration Date Visits Requ ested Visits Authorized MOTION ANALYST Encounter Details Date Type Department Care Team Description 10/28/2020 Immunization Department of Anabel Alcantara Enco unter For COVID-19 Medicine, Earlimart MSolitario Vaccine Immunization Professional [facility], [address] [facility] (Primary Dx) in [place], [place] 906 [facility] [phone] [place] [address] Social History Tobacco Use Types Packs/Day [...] How often do you attend druze or yazidi More than 4 time s [...]
--- OUTSIDE RECORDS SUMMARY | 2022-05-25 09:03 | XMS_ITS | Encounter Summary ---
:1955 Author Organization [facility] Address [address] [place] [address] Care Team Providers Name Role Phone Unavailable Primary Care Provider Unavailable Reason for Visit Reason Comments TIFFANIE Nurse Line Encounter Details Date Type Department Care Team Description 05/11/2021 Clinical Communication Division of Jennie Hatch Nurse Line [facility] Internal C, R.N. [address] [address] [place] [address] [place], [place] (Work) [phone] Social History Tobacco Use Types Packs/Day Years [...] How often do you attend anabaptist or yazidism More than 4 time s per year [...] Screening ASSESSMENT Region Select appropriate region: : [place] Age Pathway Select approprite pathway: : Adult [...] swabbed for COVID-19 Only , sent to [facility] located at [address]. An appointment is required for testing, please call [phone] Sunday- Sunday 7am to 6pm and Sunday [...] frequently with soap and water, use hand investment banker if soap and water aren't available. -Wear [...] care: Yes The following references were used: [facility] novel coronavirus (COVID- 19) resources Nursing judgement documented in this encounter Plan of Treatment Not on filedocumented as of this encounter Visit Diagnoses Not on filedocumented in this encounter
--- OUTSIDE RECORDS SUMMARY | 2022-05-25 09:03 | XMS_ITS | Encounter Summary ---
:1955 Author Organization [facility] Address [address] [place] [address] Care Team Providers Name Role Phone Unavailable Primary Care Provider Unavailable Reason for Visit Physical Therapy (Routine) - Closed Specialty Diagnoses / Procedures Referred By Contact Refer red To Contact Diagnoses Primary Osteoarthritis Knee Bilateral Pain Knee Right Roberto Salazar[facility] Procedures PT Evaluate and treat Jose Alberto [address] [place] [phone] Referral ID Status Reason Start Date Expiration Date Visits Requ ested Visits Authorized [id number] Closed 02/02/2021 02/02/2022 1 1 Encounter Details Date Type Department Care Team Description 02/28/2021 Comprehensive Visit Department of Dean Salazar M.D. [address] [place] [phone] Primary Osteoarthritis Knee Bilateral; Rehabilitation Ana Vallejo, P.T. [address] [place] [phone] Pain Knee Right Services in [address] [phone] Social History Tobacco Use Types Packs/Day Years [...] How often do you attend taoist or jew More than 4 time s [...] attempted CHOLANGIOGRAM; Surgeon: Augie Feldman D.O.; Location: [facility] OR ??? OPEN TENOTOMY OF EXTENSOR [...] Vallejo P.T. Department of Rehabilitation Services in [address] [address] Dept: [phone] documented in this encounter Plan of Treatment Not on filedocumented as of this encounter Visit Diagnoses Diagnosis Primary Osteoarthritis Knee Bilateral Pain Knee Right documented in this encounter
--- OUTSIDE RECORDS SUMMARY | 2022-05-25 09:03 | XMS_ITS | Encounter Summary ---
:1955 Author Organization [facility] Address [address] [place] [address] Care Team Providers Name Role Phone Elsewhere, Pcp Primary Care Provider Unavailable Encounter Details Date Type Department Care Team Description 10/14/2021 Lab Department of Paige Doll Go [facility], [facility], in [place], [address] [place] [phone] [place] [address] [phone] Social History Tobacco Use Types Packs/Day Years [...] slept in a skilled nursing (including now)? Education Answer Date Recorded What [...] r Results for this RNA, V AM COLLETER Nontoxic procedure are i n the results section. documented in this encounter Results SARS Coronavirus-2 RNA, V Asymptomatic (10/14/2021 10:27 AM COLLETER) [facility] gist Method Time Signature SARS-CoV-2 Swab, 10/14/2021 ECLR Specimen Nasopharynx 10:10 PM Source COLLETER SARS CoV-2 Undetected Undetected 10/14/2021 ECLR RNA, TMA 10:10 PM COLLETER Comment: SARS-CoV-2 RNA absent. This result does not rule out COVID-19 in the patient, as the sensitivity of the test depends o n the timing of the specimen collection and the quality of the specim en. Result should be correlated with patient's history and clinical presentat ion. ----ADDITIONAL INFORMATION---- This molecular amplification test was pe rformed using the Aptima SARS-CoV-2 assay ([employer] on the [employer] tem under emergency use authorization (EUA) by the U.S. Food and Drug Administ ration. Fact sheets for this EUA assay can be fo und at the following links: For Healthcare Providers: https://www.fd a.gov/media/489556/download For Patients: https://www.fda.gov/media/ 809000/download Specimen Anatomical Collection Method Collection Time Receive d Time (Source) Location / / Volume Laterality Varies 10/14/2021 10:27 10/14/2021 2:43 (Nasopharynx) AM COLLETER PM COLLETER Paige Nguyen M.D. LAB MICROBIOLOGY - GENERAL O RDERABLES Performing Organization Address City/State/ZIP Code Phon e Number [facility]- [address] [place] [phone] [facility] [place] [address] System in [address] documented in this encounter Visit Diagnoses Diagnosis Goiter Multinodular Nontoxic documented in this encounter Additional Health Concerns Infection Onset Date Last Indicated Resolved Time COVID19 Pending 10/14/2021 10/14/2021 10/14/2021 10:11 PM COLLETER documented as of this encounter Care Teams Lobster Man Relationship Specialty Start Date End Date Elsewhere, Pcp PCP - General Internal Medicine 10/03/21 documented as of this encounter
--- OUTSIDE RECORDS SUMMARY | 2022-05-25 09:03 | XMS_ITS | Encounter Summary ---
:1955 Author Organization [facility] Address [address] [place] [address] Care Team Providers Name Role Phone Unavailable Primary Care Provider Unavailable Encounter Details Date Type Department Care Team Description 06/22/2021 Clinical Communication Department of [facility], [facility], in [address] [phone] Social History Tobacco Use Types Packs/Day [...] How often do you attend amish or jew More than 4 time s [...]
--- OUTSIDE RECORDS SUMMARY | 2022-05-25 09:03 | XMS_ITS | Encounter Summary ---
:[address] [facility] Address [address] [place] [address] Care Team Providers Name Role Phone Unavailable Primary Care Provider Unavailable Encounter Details Date Type Department Care Team Description 11/22/2020 Immunization Department of [facility] hSen Bowman For COVID-19 Medicine, [place] Jose Alberto Del Real Vaccine Immunization Professional Building, [address] [place] [facility] in [address] [address] [place] [address] [phone] Social History Tobacco Use Types Packs/Day Years [...] or relatives? How often do you attend hinduism or sabianism More than 4 time s per year 09/17/2021 services? Do you belong to any clubs or organizations Yes 09/17/2021 such as hinduism groups, unions, fraternal or athletic groups, or [...]
--- OUTSIDE RECORDS SUMMARY | 2022-05-25 09:03 | XMS_ITS | Encounter Summary ---
:1955 Author Organization [facility] Address [address] [place] [address] Care Team Providers Name Role Phone Unavailable Primary Care Provider Unavailable Encounter Details Date Type Department Care Team Description 08/29/2021 Admin Visit Department of Family Ramón Cosby, Medicine, [employer]. in [facility] [address] [facility] [address] [place] [address] [place] [address] [phone] Social History Tobacco Use Types Packs/Day Years [...] How often do you attend pentecostal or samaritan More than 4 time s [...] COVID19 Pending 08/28/2021 08/29/2021 08/30/2021 2:17 AM EXPANSION ENVELOPE MAKER HAND documented as of this encounter
--- OUTSIDE RECORDS SUMMARY | 2022-05-25 09:03 | XMS_ITS | Encounter Summary ---
:1955 Author Organization [facility] Address [address] [place] [address] Care Team Providers Name Role Phone Unavailable Primary Care Provider Unavailable Reason for Visit Reason Onset Date Comments Testing For Upper Respiratory Virus Symptoms 08/28/2021 Encounter Details Date Type Department Care Team Description 08/28/2021 External Outreach Department of Family Kyra Cosby Contact With And Medicine, Jo PhillipAManoj (Suspected) Exposure Clinic, in [address] To COVID-19 (Primary [place], [place] Dx) [address] [facility] [address] [place], [place] [phone] [address] (Work) [phone] Social History Tobacco Use Types Packs/Day Years [...] How often do you attend restorationism or shinto More than 4 time s [...] Influenza, RSV, and/or Group A Strep testing. WORKER documented in this encounter Plan of Treatment Not on filedocumented as of this encounter Procedures Procedure Name Priority Date/Time Associated Diagnosis Comme nts SARS CORONAVIRUS-2 Routine 08/29/2021 10:06 AM Contact With An d Results for this RNA, V DRUG WORKER (Suspected) Exposure procedu re are in To COVID-19 the results section. documented in this encounter Results SARS Coronavirus-2 RNA, V Symptomatic (08/29/2021 10:06 AM DRUG WORKER) [facility] Method Time Signature SARS-CoV-2 Swab, 08/30/2021 ECLR Specimen Nasopharynx 2:16 AM DRUG WORKER Source SARS CoV-2 Undetected Undetected 08/30/2021 ECLR RNA, TMA 2:16 AM DRUG WORKER Comment: SARS-CoV-2 RNA absent. This result does not rule out COVID-19 in the patient, as the sensitivity of the test depends o n the timing of the specimen collection and the quality of the specim en. Result should be correlated with patient's history and clinical presentat ion. ----ADDITIONAL INFORMATION---- This molecular amplification test was pe rformed using the Aptima SARS-CoV-2 assay ([employer] on the Nervogrids tem under emergency use authorization (EUA) by the U.S. Food and Drug Administ emmie. Fact sheets for this EUA assay can be fo und at the following links: For Healthcare Providers: https://www.fd a.gov/media/496373/download For Patients: https://www.fda.gov/media/ 003722/download Specimen Anatomical Collection Method Collection Time Receive d Time (Source) Location / / Volume Laterality Varies 08/29/2021 10:06 08/29/2021 2:37 (Nasopharynx) AM DRUG WORKER PM DRUG WORKER Ramón Cosby P.A.-C. LAB MICROBIOLOGY - GENERAL O SHANNANERABLES Performing Organization Address City/State/ZIP Code Phon e Number [facility]- [address] [place] [address] [phone] [facility] [place] [address] System in [address] documented in this encounter Visit Diagnoses Diagnosis Contact With And (Suspected) Exposure To COVID-19 - Primary documented in this encounter Additional Health Concerns Infection Onset Date Last Indicated Resolved Time COVID19 Pending 08/28/2021 08/29/2021 08/30/2021 2:17 AM DRUG WORKER documented as of this encounter
--- OUTSIDE RECORDS SUMMARY | 2022-05-25 09:03 | XMS_ITS | Encounter Summary ---
:1955 Author Organization [facility] Address [address] [place] [address] Care Team Providers Name Role Phone Elsewhere, Pcp Primary Care Provider Unavailable Reason for Referral Outpatient (Routine) - Authorized Specialty Diagnoses / Procedures Referred By Contact Refer red To Contact Diagnoses Goiter Multinodular Nontoxic Heriberto Gómez P.A.-C., [facility] Procedures Laryngoscopy M.S. [address] [place] [address] Referral ID Status Reason Start Date Expiration Date Visits V isits Requested Authorized [id number] Authorized 10/04/2021 10/04/2022 1 1 E WOUND Reason for Visit Outpatient (Routine) - Closed Specialty Diagnoses / Procedures Referred By Contact Refer red To Contact Diagnoses Goiter Multinodular Nontoxic Estrella Sevilla M.D. [facility] Procedures Vocal cord check [address] [place] [address] Referral ID Status Reason Start Date Expiration Date Visits Requ ested Visits Authorized [id number] Closed 09/21/2021 09/21/2022 1 1 Encounter Details Date Type Department Care Team Description 10/04/2021 Diagnostic Department of Heriberto Gómez Multin odular Otorhinolaryngology mary lou Cates P.A.-C., [facility] [place], [place] M.S. [address] [facility] [address] [place], [place] [address] [place], [place] [phone] [address] Social History Tobacco Use Types Packs/Day Years [...] or relatives? How often do you attend adventism or oriental orthodox More than 4 time s per year 09/17/2021 services? Do you belong to any clubs or organizations Yes 09/17/2021 such as adventism groups, unions, fraternal or athletic groups, or [...] evidence of vocal fold paresis or paralysis E WOUND documented in this encounter Plan of Treatment Not on filedocumented as of this encounter Procedures Procedure Name Priority Date/Time Associated Diagnosis Comme nts LARYNGOSCOPY Routine 10/04/2021 10:59 AM Goiter Multinodular R esults for this NURSE WOUND Nontoxic procedure are i n the results section. documented in this encounter Results Laryngoscopy (10/04/2021 10:59 AM NURSE WOUND) Narrative Heriberto Gómez P.A.-C., M.S. - 022 10:59 AM NURSE WOUND Heriberto Gómez P.A.-C., M.S. ? 10/04/2021 11:00 AM Laryngoscopy Date/Time: 10/04/2021 10:59 AM Performed by: Heriberto Gómez P.A.-C., M.S. Authorized by: Heriberto Gómez P.A.-C., M.S. Heriberto Gómez P.A.-C. [facility] ORDERABLES documented in this encounter Visit Diagnoses Diagnosis Goiter Multinodular Nontoxic documented in this encounter Care Teams Therapy Director Relationship Specialty Start Date End Date Elsewhere, Pcp PCP - General Internal Medicine 10/03/21 documented as of this encounter
--- OUTSIDE RECORDS SUMMARY | 2022-05-25 09:03 | XMS_ITS | Encounter Summary ---
:1955 Author Organization [facility] Address [address] [place] [address] Care Team Providers Name Role Phone Unavailable Primary Care Provider Unavailable Reason for Referral Outpatient (Routine) - Closed Specialty Diagnoses / Procedures Referred By Contact Refer red To Contact Diagnoses Routine Screening Breast Exam Sánchez Young M.D. [facility] Procedures BI Breast Screening Bilateral with Tomosynthesis [address] [place] [phone] Referral ID Status Reason Start Date Expiration Date Visits Requ ested Visits Authorized [id number] Closed 06/22/2021 06/22/2022 1 1 Reason for Visit Outpatient (Routine) - Closed Specialty Diagnoses / Procedures Referred By Contact Refer red To Contact Diagnoses Routine Screening Breast Exam Sánchez [facility]. [facility] Region Procedures BI Breast Screening Bilateral with Tomosynthesis [address] [place] [phone] Referral ID Status Reason Start Date Expiration Date Visits Requ ested Visits Authorized [id number] Closed 06/22/2021 06/22/2022 1 1 Encounter Details Date Type Department Care Team Description 06/24/2021 Hospital Encounter Department of Sánchez Young Routin e Screening Radiology in [facility] Jose Alberto Breast [address], [address] [place] [address] [phone] Social History Tobacco Use Types Packs/Day Years [...] How often do you attend scientologist or church More than 4 time s per year [...] D3) 2,000 mouth daily. Unit capsule omega 6-gan-xak-fish oil Take 1 capsule by 0 10/1910/03/2021 [...] TOMOSYNTHESIS Current study was evaluated with a [employer] Intellitactics Aided Detection (CAD) system. INDICATION: ??Screening mammogram. COMPARISON: ??Prior exam(s) were availab le and reviewed for comparison. DENSITY: ??b. There are scattered areas of fibroglandular density. FINDINGS: ??No mammographic findings of malignancy. Procedure Note Marcelino Shelley M.D. - 06/24/2021Format ting of this note might be different from the original. EXAM: BI BREAST SCREENING BILATERAL WITH TOMOSYNTHESIS Current study was evaluated with a [employer] Intellitactics Aided Detection (CAD) system. INDICATION: Screening mammogram. [...]
--- OUTSIDE RECORDS SUMMARY | 2022-05-25 09:03 | XMS_ITS | Encounter Summary ---
:1955 Author Organization [facility] Address [address] [place] [address] Care Team Providers Name Role Phone Unavailable Primary Care Provider Unavailable Encounter Details Date Type Department Care Team Description 05/11/2021 Admin Visit Department of Family [facility] Bowman[facility] [address] [facility] [address] [place] [phone] (Wo rk) Social History Tobacco Use Types [...] How often do you attend alevism or druze More than 4 time s per year [...]
--- OUTSIDE RECORDS SUMMARY | 2022-05-25 09:03 | XMS_ITS | Encounter Summary ---
:1955 Author Organization [facility] Address [address] [place] [phone] Care Team Providers Name Role Phone Unavailable Primary Care Provider Unavailable Reason for Referral Outpatient (Routine) - Closed Specialty Diagnoses / Procedures Referred By Contact Refer red To Contact Diagnoses Goiter Multinodular NontEstrella Merritt M.D. [facility] Procedures Vocal cord check [address] [place], [place] [address] Referral ID Status Reason Start Date Expiration Date Visits Requ ested Visits Authorized [id number] Closed 09/21/2021 09/21/2022 1 1 utpatient (Routine) - Closed Specialty Diagnoses / Procedures Referred By Contact Refer red To Contact General Surgery Diagnoses Goiter Multinodular NontEstrella Merritt M.D. [facility] [address] [place] [address] Referral ID Status Reason Start Date Expiration Date Visits Requ ested Visits Authorized [id number] Closed 09/21/2021 09/21/2022 1 1 utpatient (Routine) - Closed Specialty Diagnoses / Procedures Referred By Contact Refer red To Contact Diagnoses Goiter Multinodular Nontoxic Estrella Sevilla M.D. [facility] Procedures END Thyroid USG [address] [place] [address] Referral ID Status Reason Start Date Expiration Date Visits Requ ested Visits Authorized [id number] Closed 09/21/2021 09/21/2022 1 1 T FED PRINTER Reason for Visit Outpatient (Routine) - Closed Specialty Diagnoses / Procedures Referred By Contact Refer red To Contact Endocrinology Diagnoses Goiter Multinodular Nontoxic [facility] Jose Alberto [address] [place] [address] Referral ID Status Reason Start Date Expiration Date Visits Requ ested Visits Authorized [id number] Closed 08/22/2021 08/22/2022 1 1 Encounter Details Date Type Department Care Team Description 09/21/2021 Comprehensive Visit Division of Alex Carbajal M.D. [address] [place] [address] Goiter Endocrinology in Zelda Dang M.D. [address] [place] [phone] Multinodular Noe, [employer] [address] [place] [phone] Social History Tobacco Use Types Packs/Day Years [...] How often do you attend shinto or moravian More than 4 time s [...] or slept in a penitentiary (including now)? Education Answer Date Recorded What [...] plan to proceed with FNA later today. T FED PRINTER Estrella Sevilla M.D. - 09/21/2021 10:00 AM [...] by mouth daily., Disp: , Rfl: ??? wtiwohz-ukphssykc-zzat tablet, , Disp: , Rfl: ??? cholecalciferol [...] mouth daily., Disp: , Rfl: ??? omega 3-dbk-xjb-fish oil 600 mg-216 mg- 324 mg-1,200 mg [...] results. Case seen and discussed with . T FED PRINTER documented in this encounter Plan of Treatment Scheduled Referrals Name Type Priority Associated Diagnoses Order S [facility] General Surgery - Outpatient Referral Routine Goiter Multinodu lar Expected: Endocrine consult Nontoxic 09/21/2021 (clinic) (Approximate), Expires: 12/19/2022 documented as of this encounter Results T4 (Thyroxine), Free (09/21/2021 12:11 PM SHEET FED PRINTER) P athologist Signature T4 (Thyroxine), 1.2 0.9 - 1.7 09/21/2021 DTL Free, S ng/dL 1:24 PM SHEET FED PRINTER Specimen Anatomical Collection Method Collection Time Receive d Time (Source) Location / / Volume Laterality Blood (Blood, 09/21/2021 12:11 09/21/2021 Venous) PM SHEET FED PRINTER 12:52 PM SHEET FED PRINTER Estrella Sevilla M.D. LAB BLOOD ADD-ON Performing Organization Address City/[facility] Phon e Number [facility] - [address] Calcium, Total (09/21/2021 12:11 PM SHEET FED PRINTER) athologist [facility] Calcium, Total, 9.0 8.8 - 10.2 09/21/2021 DTL S mg/dL 1:24 PM SHEET FED PRINTER Specimen Anatomical Collection Method Collection Time Receive d Time (Source) Location / / Volume Laterality Blood (Blood, 09/21/2021 12:11 09/21/2021 Venous) PM SHEET FED PRINTER 12:52 PM SHEET FED PRINTER Estrella Sevilla M.D. LAB BLOOD ADD-ON Performing Organization Address City/[facility] Phon e Number [facility] - [address] S-TSH (Thyroid-Stimulating Hormone - Sensitive) (09/21/2021 12:11 PM SHEET FED PRINTER) athologist [facility] TSH, Sensitive 1.7 0.3 - 4.2 09/21/2021 DTL mIU/L 1:24 PM SHEET FED PRINTER Specimen Anatomical Collection Method Collection Time Receive d Time (Source) Location / / Volume Laterality Blood (Blood, 09/21/2021 12:11 09/21/2021 Venous) PM SHEET FED PRINTER 12:52 PM SHEET FED PRINTER Estrella Sevilla M.D. LAB BLOOD ADD-ON Performing Organization Address City/[facility] Phon e Number [facility] - [address] CBC without Differential (09/21/2021 12:11 PM SHEET FED PRINTER) athologist Signature Hemoglobin 14.3 11.6 - 09/21/2021 DTL 15.0 g/dL 12:45 PM SHEET FED PRINTER Hematocrit 43.8 35.5 - 09/21/2021 DTL 44.9 % 12:45 PM SHEET FED PRINTER Erythrocytes 4.79 3.92 - 09/21/2021 DTL 5.13 12:45 PM SHEET FED PRINTER x10(12)/L MCV 91.4 78.2 - 09/21/2021 DTL 97.9 fL 12:45 PM SHEET FED PRINTER RBC Distrib Width 13.2 12.2 - 09/21/2021 DTL 16.1 % 12:45 PM SHEET FED PRINTER Platelet Count 186 157 - 371 09/21/2021 DTL x10(9)/L 12:45 PM SHEET FED PRINTER Leukocytes 6.3 3.4 - 9.6 09/21/2021 DTL x10(9)/L 12:45 PM SHEET FED PRINTER Specimen Anatomical Collection Method Collection Time Receive d Time (Source) Location / / Volume Laterality Blood (Blood, 09/21/2021 12:11 09/21/2021 Venous) PM SHEET FED PRINTER 12:38 PM SHEET FED PRINTER Estrella Sevilla M.D. LAB BLOOD ADD-ON Performing Organization Address City/State/ZIP Code Phon e Number [facility] - [address] [place], [place] [address] [facility] [place] [address] [facility] 200 [facility] 25-Hydroxyvitamin D2 and D3 (09/21/2021 12:11 PM SHEET FED PRINTER) athologist Signature 25-Hydroxy D2 <4.0 ng/mL 09/22/2021 SDSC 3:15 PM SHEET FED PRINTER 25-Hydroxy D3 44 ng/mL 09/22/2021 SDSC 3:15 PM SHEET FED PRINTER 25-Hydroxy D 44 ng/mL 09/22/2021 SDSC Total 3:15 PM SHEET FED PRINTER Comment: ----REFERENCE VALUE---- 25-HYDROXY D TOTAL (D2+D3) Optimum level s in the healthy population are 20-50, patients with bone disease may benefit from higher levels within this r [place]. ----ADDITIONAL INFORMATION---- This test was developed and its performa nce characteristics determined by [facility] in a manner consistent with CLIA requirements. This test has not been cleared or approved by the U.S. Franci d and Drug Administration. Specimen Anatomical Collection Method Collection Time Receive d Time (Source) Location / / Volume Laterality Blood (Blood, 09/21/2021 12:11 09/22/2021 7:15 Venous) PM SHEET FED PRINTER AM SHEET FED PRINTER Estrella Sevilla M.D. LAB BLOOD ADD-ON Performing Organization Address City/State/ZIP Code Phon e Number [facility] [address] [place] [address] [facility] [place] [address] Laboratory Medicine and Pathology [address] [place] documented in this encounter Visit Diagnoses Diagnosis Goiter Multinodular Nontoxic documented in this encounter
--- OUTSIDE RECORDS SUMMARY | 2022-05-25 09:03 | XMS_ITS | Encounter Summary ---
:1955 Author Organization [facility] Address [address] [place] [address] Care Team Providers Name Role Phone Unavailable Primary Care Provider Unavailable Encounter Details Date Type Department Care Team Description 02/02/2021 Hospital Encounter Department of Martin, Primary Osteoarthritis Radiology in [facility] Roberto Vela M.D. [place] [address] [phone] Social History Tobacco Use Types Packs/Day Years [...] How often do you attend taoist or muslim More than 4 time s [...] D3) 2,000 mouth daily. Unit capsule omega 7-spd-rfz-fish oil Take 1 capsule by 0 10/1910/03/2021 [...]
--- OUTSIDE RECORDS SUMMARY | 2022-05-25 09:03 | XMS_ITS | Encounter Summary ---
:1955 Author Organization [facility] Address [address] [place] [address] Care Team Providers Name Role Phone Unavailable Primary Care Provider Unavailable Reason for Referral Specialty Diagnoses / Procedures Referred By Contact Refer red To Contact Torin Nguyen M.D. [facility] Region [address] [place] [phone] Referral ID Status Reason Start Date Expiration Date Visits Requ ested Visits Authorized SANDER Encounter Details Date Type Department Care Team Description 10/20/2020 Orders Only [facility] PCP [facility] Sa handy Geller M.D. [address] [place], [place] [phone] (Wo rk) Social History [...] How often do you attend quaker or yazidism More than 4 time s [...]
--- OUTSIDE RECORDS SUMMARY | 2022-05-25 09:03 | XMS_ITS | Encounter Summary ---
:1955 Author Organization [facility] Address [address] [place] [address] Care Team Providers Name Role Phone Unavailable Primary Care Provider Unavailable Reason for Visit Appointment Request (Routine) - Closed Specialty Diagnoses / Procedures Referred By Contact Refer red To Contact Family Medicine Referral ID Status Reason Start Date Expiration Date Visits Requ ested Visits Authorized [id number] Closed 07/08/2021 07/08/2022 1 1 Encounter Details Date Type Department Care Team Description 07/27/2021 Immunization Department of [facility] Shen Bowman, Medicine, Shushan M.D. Professional Building, in [address] [place] [id number] [address] [place] [address] [phone] Social History Tobacco Use Types Packs/Day Years [...] How often do you attend anabaptist or rastafari More than 4 time s [...]
--- OUTSIDE RECORDS SUMMARY | 2022-05-25 09:03 | XMS_ITS | Encounter Summary ---
:1955 Author Organization [facility] Address [address] [place] [address] Care Team Providers Name Role Phone Elsewhere, [...] How often do you attend sabianist or episcopal More than 4 time s [...] or slept in a longterm (including now)? Education Answer Date Recorded What [...] 10/04/2021 10:50 Results for this EXAM AM TELECOM SPECIALIST procedure are i n the results section. documented in this encounter Results AIRWAY-Otorhinolaryngology Image Exam (10/04/2021 10:50 AM TELECOM SPECIALIST) Specimen (Source) Anatomical Collection Method Collection Time Re ceived Time Location / / Volume Laterality 10/04/2021 10:50 AM TELECOM SPECIALIST Narrative [facility] - 10/04/2021 11:00 AM TELECOM SPECIALIST This order has been created and auto-finalized [...] on filedocumented in this encounter Care Teams Machine Leather Trimmer Relationship Specialty Start Date End Date Elsewhere, Pcp PCP - General Internal Medicine 10/03/21 documented as of this encounter
--- OUTSIDE RECORDS SUMMARY | 2022-05-25 09:03 | XMS_ITS | Encounter Summary ---
:1955 Author Organization [facility] Address [address] [place] [address] Care Team Providers Name Role Phone Unavailable Primary Care Provider Unavailable Encounter Details Date Type Department Care Team Description 09/23/2021 Documentation Division of Endocrinology in [facility] Estrella dotson M.D. [place], [place] [address] [facility] [address] [place] [address] [phone] (Wo rk) Social History Tobacco Use Types [...] How often do you attend taoist or episcopal More than 4 time s [...] [place] [facility] [place] (including now)? Education Answer Date Recorded What [...] daily for optimization pre surgery. -TSH 1.7 R PACKER documented in this encounter Plan of Treatment Not on filedocumented as of this encounter Visit Diagnoses Not on filedocumented in this encounter
--- OUTSIDE RECORDS SUMMARY | 2022-05-25 09:03 | XMS_ITS | Encounter Summary ---
:1955 Author Organization [facility] Address [address] [place] [address] Care Team Providers Name Role Phone Unavailable Primary Care Provider Unavailable Reason for Visit Reason Onset Date Comments Testing For Upper Respiratory Virus Symptoms 05/11/2021 Encounter Details Date Type Department Care Team Description 05/11/2021 External Outreach Department of Family Kyra Cosby Contact With And Medicine, Jo PhillipAManoj (Suspected) Exposure Clinic, in [address] [facility] (Primary [place], [place] Dx) [address] [facility] [address] [place], [place] [phone] [address] (Work) [phone] Social History Tobacco Use Types Packs/Day Years [...] often do you attend oriental orthodox or christian More than 4 time s [...] RNA, V Symptomatic (05/11/2021 2:29 PM CDT) [facility] Method Time Signature SARS-CoV-2 Swab, 05/12/2021 ECLR [...] pe rformed using the Aptima SARS-CoV-2 assay ([employer] on the [place] Sys tem under emergency use authorization (EUA) by the U.S. Food and Drug Administ emmie. Fact sheets for this EUA assay can be fo und at the following links: For Healthcare Providers: https://www.fd a.gov/media/335646/download For Patients: https://www.fda.gov/media/ 398051/download Specimen Anatomical Collection Method Collection Time Receive d Time (Source) Location / / Volume Laterality Varies 05/11/2021 2:29 PM 9:37 (Nasopharynx) CDT PM CDT Ramón Cosby P.A.-C. LAB MICROBIOLOGY - GENERAL O MALI Performing Organization Address City/State/[facility] Code Phon e Number [facility]- [address] [place] [phone] [facility] [place] [address] System [address] documented in this encounter Visit Diagnoses Diagnosis Contact With And (Suspected) Exposure To COVID-19 - Primary documented in this encounter Additional Health Concerns Infection Onset Date Last Indicated Resolved Time COVID19 Pending 05/11/2021 05/11/2021 05/12/2021 12:40 PM CDT documented as of this encounter
--- OUTSIDE RECORDS SUMMARY | 2022-05-25 09:03 | XMS_ITS | Encounter Summary ---
:1955 Author Organization [facility] Address [address] [place] [address] Care Team Providers Name Role Phone Unavailable Primary Care Provider Unavailable Reason for Referral Outpatient (Routine) - Pending Review Specialty Diagnoses / Procedures Referred By Contact Refer red To Contact Diagnoses Goiter Multinodular Nontoxic Zelda Dang M.D. Procedures FNA Neck [address] [place] [address] Referral ID Status Reason Start Date Expiration Date Visits V isits Requested Authorized [id number] Pending 09/21/2021 09/21/2022 1 1 Review OPERATOR Reason for Visit Reason Comments Other END Thyroid USG Outpatient (Routine) - Closed Specialty Diagnoses / Procedures Referred By Contact Refer red To Contact Diagnoses Goiter Multinodular Nontoxic Estrella Sevilla M.D. [facility] Procedures END Thyroid USG [address] [place] [address] Referral ID Status Reason Start Date Expiration Date Visits Requ ested Visits Authorized [id number] Closed 09/21/2021 09/21/2022 1 1 Encounter Details Date Type Department Care Team Description 09/21/2021 Procedure visit Division of Estrella Sevilla M .D. [address] [place] [phone] Goiter Multinodular Endocrinology in Zelda Dang M.D. [address] [place] [address] Nontoxic [place], [place] [address] [place] [address] Social History Tobacco Use Types Packs/Day Years [...] How often do you attend islam or confucianism More than 4 time s [...] within medical record for completed patient education. OPERATOR documented in this encounter Procedure Notes Zelda [...] the procedure well. Post procedure pain 0/10 OPERATOR documented in this encounter Plan of Treatment Not on filedocumented as of this encounter Procedures Procedure Name Priority Date/Time Associated Diagnosis Comme nts NE FNA BX W/US GDN Routine 09/21/2021 12:00 Goiter Multinodula r Results for this EA ADDL PM CAT OPERATOR Nontoxic procedure are i n the results section. NE FNA BX W/US GDN Routine 09/21/2021 12:00 Goiter Multinodula r Results for this 1ST LES PM CAT OPERATOR Nontoxic procedure are i n the results section. CYTOLOGY FINE Routine 09/21/2021 10:46 Goiter Multinodular Res ults for this NEEDLE ASPIRATION AM CAT OPERATOR Nontoxic procedure are in (INCLUDES CORE the results BIOPSIES section. documented in this encounter Results NE FNA BX W/US GDN 1ST LES, NE FNA BX W/US GDN EA ADDL (09/21/2021 12:00 PM CAT OPERATOR) Narrative MMODAL - 09/21/2021 12:00 PM CAT OPERATOR Zelda Dang M.D. ? 09/22/2021 ??7:57 AM [...] Aspiration (including core biopsies) (09/21/2021 10:46 AM CAT OPERATOR) Component Value Ref Test Analysis Performed At [facility] gist Range Method Time Signature 09/21/2021 DTL 2:09 PM CAT OPERATOR Participated in Josh Nance 09/21/2021 DTYani the Interpretation Jose Alberto-Patholog 2:09 PM CAT OPERATOR y Resident Report Elizabeth Green M.D. 09/21/2021 DTL electronically 2:09 PM CAT OPERATOR signed by I verify that I have examined all relevant slides/materials for the specimen(s) and rendered or confirmed the diagnosis. Gross Description A: ?? Received 16 alcohol-fixed smears. 09/21/2021 DTL 2:09 PM CAT OPERATOR B: ?? Received 13 alcohol-fixed smears. Source A. Thyroid, Right, fine needle aspiration 09/21/2021 DTL 2:09 PM CAT OPERATOR B. Thyroid, Left, fine needle aspiration Interpretation A. Thyroid, Right, fine needle aspiration (smears): 09/21/2021 DTL Negative 2:09 PM CAT OPERATOR for malignancy. Cytologic features consistent with benign thyroid nodule. B. Thyroid, Left, fine needle aspiration (smears): Negative for malignancy. Cytologic features consistent with benign thyroid nodule. Specimen (Source) Anatomical Collection Method Collection Time Re ceived Time Location / / Volume Laterality Aspirate 09/21/2021 10:46 (Thyroid, Right) AM CAT OPERATOR Aspirate 09/21/2021 10:47 (Thyroid, Left) AM CAT OPERATOR Narrative This result has an attachment that is no t available. Estrella Sevilla M.D. LAB SURG PATH ORDERABLES Performing Organization Address City/State/ZIP Code Phon e Number [facility] - [address] [place], [place] [address] [facility] [place] [place] [address] [facility] [address] documented in this encounter Visit Diagnoses Diagnosis Goiter Multinodular Nontoxic documented in this encounter Administered Medications Inactive Administered Medications - up to 3 most recent administrations Medication Order MAR Action Action Date Dose Rate Site lidocaine 4 % cream 1 Given 09/21/2021 10:37 AM 1 application application (LMX) CAT OPERATOR 1 application (5 g), topical, As needed, Apply for local anesthesia, Starting on Sun09/21/21 at 0932 documented in this encounter
--- OUTSIDE RECORDS SUMMARY | 2022-05-25 09:03 | XMS_ITS | Encounter Summary ---
:1955 Author Organization [facility] Address [address] [place] [address] Care Team Providers Name Role Phone Elsewhere, Pcp Primary Care Provider Unavailable Reason for Visit Outpatient (Routine) - Closed Specialty Diagnoses / Procedures Referred By Contact Refer red To Contact General Surgery Diagnoses Goiter Multinodular Nontoxic Estrella Sevilla M.D. [facility] [address] [place] [phone] Referral ID Status Reason Start Date Expiration Date Visits Requ ested Visits Authorized [id number] Closed 09/21/2021 09/21/2022 1 1 Encounter Details Date Type Department Care Team Description 10/04/2021 Comprehensive Visit Division of Victoriano Nguyen M.D. [address] [place] [phone] Goiter Multinodular Endocrine and Zelda Dang M.D. [address] [place] [phone] Nontoxic Metabolic Surgery in [place] [address] [place] [phone] Social History Tobacco Use Types Packs/Day Years [...] How often do you attend faith or buddhist More than 4 time s per year [...] and coordination of care as described above. CTOR OF SECURITIES AND REAL ESTATE documented in this encounter Plan of Treatment Not on filedocumented as of this encounter Visit Diagnoses Diagnosis Goiter Multinodular Nontoxic documented in this encounter Care Teams Director Of Publications Relationship Specialty Start Date End Date Elsewhere, Pcp PCP - General Internal Medicine 10/03/21 documented as of this encounter
--- OUTSIDE RECORDS SUMMARY | 2022-05-25 09:03 | XMS_ITS | Encounter Summary ---
:1955 Author Organization [facility] Address [address] [place] [address] Care Team Providers Name Role Phone Elsewhere, Pcp Primary Care Provider Unavailable Reason for Visit Reason Comments Pre-visit Intake Encounter Details Date Type Department Care Team Description 10/03/2021 Clinical Communication Visit Review in Pr e-visit Intake [address] [address] Social History Tobacco Use Types [...] How often do you attend pentecostal or cheondoism More than 4 time s [...] on filedocumented in this encounter Care Teams Washer Off Relationship Specialty Start Date End Date Elsewhere, Pcp PCP - General Internal Medicine 10/03/21 documented as of this encounter
--- OUTSIDE RECORDS SUMMARY | 2022-05-25 09:03 | XMS_ITS | Encounter Summary ---
:1955 Author Organization [facility] Address [address] [place] [address] Care Team Providers Name Role Phone Unavailable Primary Care Provider Unavailable Reason for Referral Outpatient (Routine) - Closed Specialty Diagnoses / Procedures Referred By Contact Refer red To Contact Diagnoses Iodine Deficiency Related Diffuse Endemic Goiter Irina Pham C.NJulia [facility]SH[facility] [place] Procedures [place] Thyroid [address] [place], [place] [address] Referral ID Status Reason Start Date Expiration Date Visits Requ ested Visits Authorized [id number] Closed 07/04/2021 07/04/2022 1 1 NER Reason for Visit Outpatient (Routine) - Closed Specialty Diagnoses / Procedures Referred By Contact Refer red To Contact Diagnoses Iodine Deficiency Related Diffuse Endemic Goiter Irina Pham C.N.Jo [facility] [place] [facility] Procedures US Thyroid [address] [place], [place] [address] Referral ID Status Reason Start Date Expiration Date Visits Requ ested Visits Authorized [id number] Closed 07/04/2021 07/04/2022 1 1 Encounter Details Date Type Department Care Team Description 07/06/2021 Hospital Encounter Department of Irina Pham Iod ine Deficiency Radiology in Tarik Del Real C.N.P. Related [place], [place] [address] Endemic Goiter [address] [address] [place], [place] [phone] (Work) [phone] Social History Tobacco Use Types Packs/Day Years [...] How often do you attend temple or sabianist More than 4 time s [...] D3) 2,000 mouth daily. Unit capsule omega 4-swz-cdu-fish oil Take 1 capsule by 0 10/1910/03/2021 600 mg-216 mg- 324 mouth daily. mg-1,200 mg capsule,delayed release(DR/EC) documented as of this encounter Plan of Treatment Not on filedocumented as of this encounter Procedures Procedure Name Priority Date/Time Associated Comments Diagnosis US THYROID RAD - Routine 07/06/2021 3:44 Iodine Deficiency Result s for this (most inpatients PM CLEANER Related Diffuse procedur e are in and all Endemic Goiter the results outpatients) section. documented in this encounter Results US Thyroid (07/06/2021 3:44 PM CLEANER) Anatomical Region Laterality Modality Head and Neck, Ultrasound RST LOS, Ultrasound ARZ LOS, N/A Ultrasound Ultrasound FLA LOS Specimen (Source) Anatomical Collection Method Collection Time Re ceived Time Location / / Volume Laterality 07/07/2021 9:13 AM CLEANER Impressions 07/07/2021 9:23 AM CLEANER 1. Thyromegaly. 2. Bilateral thyroid nodules have low caballero spicion for malignancy based on sonographic features, the largest on the right measuring 3.4 cm and the largest on the left measuring 3.0 cm. Consider f ollow-up per guidelines below. Narrative 07/07/2021 9:23 AM CLEANER EXAM: US THYROID COMPARISON: 01/13/2011 FINDINGS: The [...] ultrasound score is 1. Based on the [facility] Thyroid Nodule Care Process Model, the nodule [...] foci: no echogenic foci (0 ). The [place] ultrasound score is 1. Based on the [facility] Thy[facility] Care Process Model, the nodule [...] ultrasound score is 0. Based on the [facility]pert Thyroid Nodule Care Process Model, the nodule has low suspic ion for malignancy (1-5%). Lymph nodes: No pathologically enlarged lymph nodes are seen in the neck, with evaluation of levels II-V. The thyroid nodule descriptions and marilyn gories are based on the Thyroid Nodule Care Process Model established by the [facility] Endocrine Oncology [facility] [place]. https://asknjyoexpert.[facility].org/top ic/clinical-answers/cnt-82242249/sec-203 2777 The [facility]PayoExpert Thyroid Nodule CPM sta neelam the following [...] ultrasound score is 1. Based on the [facility]pert Thyroid Nodule Care Process Model, the nodule [...] echogenic foci: no echogenic foci (0). The [place] ultrasound score is 0. Based on the [facility]pert Thyroid Nodule Care Process Model, the nodule has low suspic ion for malignancy (1-5%). Lymph nodes: No pathologically enlarged lymph nodes are seen in the neck, with evaluation of levels II-V. The thyroid nodule descriptions and marilyn gories are based on the Thyroid Nodule Care Process Model established by the [facility] Endocrine Oncology [facility] [place]. https://asknjyoexpert.[facility].org/top ic/clinical-answers/cnt-63851775/sec-203 7778 The AskPeekYouyoExpert Thyroid Nodule CPM sta neelam the following [...]
--- OUTSIDE RECORDS SUMMARY | 2022-05-25 09:03 | XMS_ITS | Encounter Summary ---
:1955 Author Organization [facility] Address [address] [place] [address] Care Team Providers Name Role Phone Unavailable Primary Care Provider Unavailable Reason for Referral Outpatient (Routine) - Closed Specialty Diagnoses / Procedures Referred By Contact Refer red To Contact Endocrinology Diagnoses Goiter Multinodular Nontoxic Lion Carbajal [place] M.D. [address] [place] [phone] Referral ID Status Reason Start Date Expiration Date Visits Requ ested Visits Authorized [id number] Closed 08/22/2021 08/22/2022 1 1 ICAL DATA SPECIALIST Reason for Visit Reason Comments Consult Thyroid nodule Appointment Request (Routine) - Closed Specialty Diagnoses / Procedures Referred By Contact Refer red To Contact General Surgery Referral ID Status Reason Start Date Expiration Date Visits Requ ested Visits Authorized [id number] Closed 08/17/2021 08/17/2022 1 1 Encounter Details Date Type Department Care Team Description 08/22/2021 Comprehensive Visit Department of Lion Carbajal General Surgery Jose Alberto Vela Nontoxic (Primary in [place], [address]) [place], [place] [address] [facility] [address] [place], [place] [phone] (Work) [phone] Social History Tobacco Use Types Packs/Day Years [...] or relatives? How often do you attend christianity or christianity More than 4 time s per year 09/17/2021 services? Do you belong to any clubs or organizations Yes 09/17/2021 such as christianity groups, unions, fraternal or athletic groups, or [...] Comments Blood Pressure 135/71 08/22/2021 3:15 PM CLINICAL DATA SPECIALIST Pulse 87 08/22/2021 2:32 PM CLINICAL DATA SPECIALIST Temperature 36.3 ??C (97.3 ??F) 08/22/2021 2:32 PM CLINICAL DATA SPECIALIST Respiratory Rate - - Oxygen Saturation - [...] care provider is Irina Pham CNP of [facility]. Records reviewed in [facility] Everywhere. Patient Active Problem List Diagnosis ??? [...] attempted CHOLANGIOGRAM; Surgeon: Augie Feldman D.O.; Location: [facility] OR ??? OPEN TENOTOMY OF EXTENSOR [...] by mouth daily., Disp: , Rfl: ??? ehagqah-uflqgnnkq-xevp tablet, , Disp: , Rfl: ??? cholecalciferol [...] mouth daily., Disp: , Rfl: ??? omega 2-yby-lps-fish oil 600 mg-216 mg- 324 mg-1,200 mg [...] patient undergo this procedure with Radiology in [place], given the complexity with multiple large nodules. [...] care as described above. Lion Carbajal M.D. ICAL DATA SPECIALIST documented in this encounter Plan of Treatment Scheduled Referrals Name Type Priority Associated Diagnoses [facility] - Outpatient Routine Goiter Multinodular Expec torrie: Thyroid nodule or Referral Nontoxic 08/22/2021 cancer consult (Approximate) , (clinic) Expires: 11/20/2022 documented as of this encounter Visit Diagnoses Diagnosis Goiter Multinodular Nontoxic - Primary documented in this encounter
--- OUTSIDE RECORDS SUMMARY | 2022-05-25 09:03 | XMS_ITS | Encounter Summary ---
:1955 Author Organization [facility] Address [address] [place] [address] Care Team Providers Name Role Phone Unavailable Primary Care Provider Unavailable Reason for Referral Physical Therapy (Routine) - Closed Specialty Diagnoses / Procedures Referred By Contact Refer red To Contact Diagnoses Primary Osteoarthritis Knee Bilateral Pain Knee Right Roberto Salazar, ANDRIY [facility] Procedures PT Evaluate and treat Jose Alberto [address] [place] [phone] Referral ID Status Reason Start Date Expiration Date Visits Requ ested Visits Authorized [id number] Closed 02/02/2021 02/02/2022 1 1 Reason for Visit Appointment Request (Routine) - Closed Specialty Diagnoses / Procedures Referred By Contact Refer red To Contact Orthopedic Surgery Referral ID Status Reason Start Date Expiration Date Visits Requ ested Visits Authorized [id number] Closed 01/31/2021 01/31/2022 1 1 Encounter Details Date Type Department Care Team Description 02/02/2021 Comprehensive Visit Department of Martin Primary Osteoarthritis Knee Bilateral (Primary Dx); Orthopedic Surgery Zelda Weber Pain Knee Right in [place], [address] [place], [place] [address] [facility] [address] [place], [place] [phone] (Work) [phone] Social History Tobacco Use Types Packs/Day Years [...] How often do you attend faith or judaism More than 4 time s per year [...] attempted CHOLANGIOGRAM; Surgeon: Augie Feldman D.O.; Location: [facility] OR ??? OPEN TENOTOMY OF EXTENSOR TENDON [...] mouth daily., Disp: , Rfl: ??? omega 3-zdd-rfa-fish oil 600 mg-216 mg- 324 mg-1,200 mg [...] agreement with plan.She is going to take oktl-ojb-svzzokc pain medications on an as-needed basis for [...]
--- OUTSIDE RECORDS SUMMARY | 2022-05-25 09:03 | XMS_ITS | Encounter Summary ---
:1955 Author Organization [facility] Address [address] [place] [address] Care Team Providers Name Role Phone Elsewhere, Pcp Primary Care Provider Unavailable Reason for Visit Auth/Cert Specialty Diagnoses / Procedures Referred By Contact Refer red To Contact Diagnoses Goiter Multinodular Nontoxic Goiter Multinodular Nontoxic [E04.2] Procedures [place] THYROIDECTOMY TOTAL/COMPLETE [place] TEST INJ VASC FLOW FLAP/GRFT THYROIDECTOMY - TOTAL PINPOINT indocyanine green fluorescent parathyroid angiography Referral ID Status Reason Start Date Expiration Date Visits Requ ested Visits Authorized [id number] 1 1 Encounter Details Date Type Department Care Team Description 10/17/2021 Surgery [facility]ELO OR Paige Nguyen, THYROIDECTOMY, NEAR [address] [facility] TOTAL. [place], [place] [address] [facility] [address] [place], [place] [phone] (Wo rk) Social History Tobacco Use Types [...] or relatives? How often do you attend latter-day or hindu More than 4 time s per year 09/17/2021 services? Do you belong to any clubs or organizations Yes 09/17/2021 such as latter-day groups, unions, fraternal or athletic groups, or [...] Comments Blood Pressure 172/84 10/17/2021 1:30 PM SUPERVISOR BOAT OUTFITTING Pulse 75 10/17/2021 1:35 PM [employer]PER[employer]ITTING Temperature 36.6 ??C (97.9 ??F) 10/17/2021 12:35 PM [employer]PER[employer]ITT[employer] Respiratory Rate 18 10/17/2021 1:35 PM [employer] Oxygen Saturation 98% 10/17/2021 1:35 PM [employer] Inhaled Oxygen Concentration - - Weight 99.2 kg (218 lb 11.1 oz) 10/17/2021 8:45 AM [employer] Height 155 cm (5' 1.02) 10/17/2021 8:45 AM SUPER[employer]ITT[employer] Body Mass Index 41.29 10/17/2021 8:45 AM [employer] documented in this encounter Discharge Summaries Torin Chavez M.D. - 10/18/2021 7:50 AM CST DISCHARGE SUMMARY BRIEF OVERVIEW Hospital: [facility] Discharge Provider: Paige Nguyen M.D. Primary [...] thyroidectomy, 10/17/2021. The patient was admitted to [facility]. The patient was taken to the [...] were provided to the patient and caregiver(s). [employer] documented in this encounter Discharge Instructions AttachmentsThe following attachments cannot be sent through Care Everywhere. Calcitriol (By mouth) (Dutch)Levothyroxine (By mouth) (Dutch)Antacid, Calcium and Magnesium (By mouth) (Dutch)documented in this encounter Medications at Time of [...] in [address] Nguyen. [employer] Lora Garrett Pharm.D., R.Ph. - 10/17/2021 8:53 [...] -- Take 1 tablet by mouth daily. ouyceqv-lewoawkom-guxy tablet 10/16/2021 -- -- Take 3 tablets [...] -- Take 2.5 mg by mouth daily. [facility] Prescription (Allergy Immunotherapy) 10/17/2021 06/27/12 -- Take 1 each by mouth as needed (allergies). Homeopathic remedy drops multivitamin (multivitamin) tablet 10/16/2021 -- -- Take 1 tablet by mouth daily. omega-3 fatty acids 1,250 mg capsule 10/16/2021 -- -- Take 1,200 mg by mouth daily. RED YEAST RICE ORAL 10/16/2021 -- -- Take 1 tablet by mouth 2 (two) times a day. [employer] documented in this encounter Nursing Notes Anabel Rosales R.N. - 10/18/2021 10:33 AM CST Patient stable at discharge. Education was reviewed with patient. Any further questions were answered. Pain was well controlled with oral pain medications. Patient discharged home with significant other. Patient needs addressed. [employer] Lora Rebolledo R.N. - 10/18/2021 5:12 AM CST Shift Goals: Clinical Goals for the Shift: rest overnight Identify possible barriers to meeting goals/advancing plan of care: none End of Shift Summary: Patient rested well overnight with minimal pain which was managed with currentregimen. Vitals remained stable with no acute events overnight. [employer] documented in this encounter OR Notes Op Note - Paige Nguyen M.D. - 10/17/2021 10:51 AM CST Pre-op Diagnosis Goiter Multinodular Nontoxic Post-op Diagnosis Goiter Multinodular Nontoxic A first coat operator actively participated and was necessary for one [...] was mobilized in a similar fashion. An medical clerical assistant was necessary to help expose and [...] without complication...Dictated by Dr. Patrick Nguyen M.D. [employer] Brief Op Note - Torin Chavez M.D. - 10/17/2021 10:51 AM CST Pre-op Diagnosis Goiter Multinodular Nontoxic Post-op Diagnosis Goiter Multinodular Nontoxic Findings Multinodular goiter. Near total thyroidectomy Complications None Darius Chavez M.D. [employer] documented in this encounter Miscellaneous Notes Hospital Course - Torin Chavez M.D. - 10/17/2021 1:49 PM CST Multinodular goiter status post near total thyroidectomy, 10/17/2021. The patient was admitted to [facility]. The patient was taken to the [...] patient's home medications were restarted as indicated. [employer] documented in this encounter Plan of Treatment Not on filedocumented as of this encounter Procedures Procedure Name Priority Date/Time Associated Diagnosis Comme nts CALCIUM, TOT, S/P Routine 10/18/2021 7:03 Results for this AM [employer] procedure are i n the results section. PARATHYROID HORMONE Routine 10/17/2021 2:42 Resul ts for this (PTH), S PM [employer] procedure are i n the results section. ADULT OXYGEN THERAPY Routine 10/17/2021 12:39 PM [employer] SURGICAL PATHOLOGY, Routine 10/17/2021 11:23 Goiter Multinodul ar Results for this [facility] AM [employer] Nontoxic procedure are i n the results section. THYROIDECTOMY - TOTAL 10/17/2021 10:04 Goiter Multinod ular AM [employer] Nontoxic documented in this encounter Results (ABNORMAL) Calcium, Total (10/18/2021 7:03 AM [employer]PER[employer]) P athologist Signature Calcium, 7.9 (L) 8.8 - 10.2 10/18/2021 DTL Total, S mg/dL 7:43 AM [employer] Specimen Anatomical Collection Method Collection Time Receive d Time (Source) Location / / Volume Laterality Blood (Blood, 10/18/2021 7:03 AM 10/19/19 7:03 Venous) [employer] AM [employer] Torin Chavez M.D. LAB BLOOD ADD-ON Performing Organization Address City/State/ZIP Code Phon e Number [facility] - [address] [place], [place] [address] [place] [address] Laboratories-[address] (ABNORMAL) Parathyroid Hormone (PTH) (10/17/2021 2:42 PM SUPER[employer]) Patholo gist Method Time [facility] Parathyroid <6.0 (L) 15 - 65 10/17/2021 DT Hormone (PTH), S pg/mL 3:37 PM [employer] Specimen Anatomical Collection Method Collection Time Receive d Time (Source) Location / / Volume Laterality Blood (Blood, 10/17/2021 2:42 PM 10/17/19 3:09 Venous) [employer] PM [employer] Torin Chavez M.D. LAB BLOOD ADD-ON Performing Organization Address City/[facility] Phon e Number [facility] - [address] [place], [place] [address] [place] [id number] Laboratories-[address] Surgical Pathology, Frozen Lab (10/17/2021 11:23 AM [employer]) Component Value Ref Test Analysis Performed Pathologis t Range Method Time At [facility] 10/20/2021 METH 4:20 PM [employer] Report Anca Salazar M.D. 10/20/2021 METH electronically 4:20 PM signed by SUPER[employer]ITTING I verify that I have examined all relevant slides/materials for the specimen(s) and rendered or confirmed the diagnosis. Gross Description A. ??Received fresh labeled left thyroid is an 18 gram 10/20/2021 METH partial thyroidectomy with 7.1 x 3.2 x 2.6 cm left lobe. 4:20 PM The lobe is received disrupted. ??There is a 1 x 0.6 x 0.4 [employer] cm reyes-white area identified. ??The remainder of the thyroid lobe is uniformly nodular. ??Sling Operator tissue submitted for permanent sections. ??Grossed by Parvez Salazar M.D. -Pathology Resident. B. ??Received fresh labeled right thyroid is a 40 gram partially disrupted partial thyroidectomy with a 7.1 x 4.9 x 3.5 cm right lobe, in aggregate. ??The thyroid parenchyma demonstrates multiple reyes-brown soft nodules, 0.5 to 5.1 cm. ??The largest nodule is detached and shows hemorrhagic and cystic spaces. ??Sling Operator tissue submitted for permanent sections. ??Grossed by Derian Rodgers, PA([facility]). Block Summary A Left thyroid 10/20/2021 METH A1 Left thyroid 4:20 PM A2 Left thyroid medicare sales representative section C ST B Right thyroid B1 Right superior B2 Right mid B3 Right inferior B4 Dominant detached nodule Interpretation FINAL DIAGNOSIS 10/20/2021 METH 4:20 PM A. ??Thyroid, left, left lobectomy: ??Hyperplastic nodules. [employer] Mild chronic thyroiditis. B. ??Thyroid, right, right lobectomy: ??Hyperplastic in adenomatous nodules with degenerative features. ??Mild chronic thyroiditis. Congo red performed at [facility] on section from block B4 is negative. Specimen (Source) Anatomical Collection Method Collection Time Re ceived Time Location / / Volume Laterality Tissue (Thyroid) 10/17/2021 11:23 AM [employer] Tissue (Thyroid) 10/17/2021 11:32 AM [employer] Narrative This result has an attachment that is no t available. Paige Nguyen M.D. LAB SURG PATH ORDERABLES Performing Organization Address City/State/ZIP Code Phon e Number [facility] - [address] [place], [place] [address] [place] [address] [facility] [address] documented in this encounter Visit Diagnoses Diagnosis Goiter Multinodular Nontoxic - Primary Goiter Multinodular Nontoxic documented in this encounter Admitting Diagnoses Diagnosis Goiter Multinodular Nontoxic documented in this encounter Administered Medications Inactive Administered Medications - up to 3 most recent administrations Medication Order MAR Action Action Date Dose Rate Site acetaminophen tablet 1,000 mg Given 10/17/2021 9:50 AM [employer] 1,000 mg (TYLENOL) 1,000 mg, oral, Once, On Sun10/17/21 at 1000, For 1 dose, Pre-Op, Sleeper Cutter, PreOp with sips acetaminophen tablet 1,000 mg (TYLENOL) Given 10/18/2021 9:23 AM [employer] 1,000 mg 1,000 mg, oral, Every 6 hours, First dose (after last modification) on Sun10/17/21 at 2200, (not to exceed 4 grams in 24 hours) Given 10/18/2021 4:05 AM [employer] 1,000 mg Given 10/17/2021 10:09 PM [employer] 1,000 mg acetaminophen tablet 500 mg (TYLENOL) Given 10/17/2021 3:54 PM [employer]ING 500 mg 500 mg, oral, Every 6 hours, First dose on Sun10/17/21 at 1600, (not to exceed 4 grams in 24 hours) calcitRIOL capsule 0.5 mcg (ROCALTROL) Given 10/18/2021 8:24 AM [employer] 0.5 mcg 0.5 mcg, oral, Daily, First dose on Sun10/17/21 at 1730 Given 10/17/2021 6:02 PM [employer] 0.5 mcg calcium carbonate chewable tablet Given 10/18/2021 8:2 4 AM [employer] 600 mg of calcium 600 mg of calcium (TUMS E-X) 600 mg of calcium, oral, 3 times daily, First dose on Sun10/17/21 at 2100, Doses listed are in mg of elemental calcium. Take with food. 750 mg calcium carbonate contains 300 mg of elemental calcium. Given 10/17/2021 8:45 PM [employer]ITT[employer] 600 mg of calcium cellulose, oxidized 1 X 2 pad (SURGICE L) Given 10/17/2021 11:55 AM [employer] 1 each As needed, Starting on Sun10/17/21 at 1154, Intra-Op Given 10/17/2021 11:54 AM [employer] 1 each fentaNYL injection 25 mcg (SUBLIMAZE) Given 10/17/2021 12:51 PM [employer] 25 mcg 25 mcg, intravenous, Every 2 min PRN, For pain 4 or greater (maximum 100 mcg). If max dose of Fentanyl is reached and if pain is greater than 4, discontinue Fentanyl: give Hydromorphone, Starting on Sun10/17/21 at 1239, PACU (only) Given 10/17/2021 12:48 PM [employer] 25 mcg Given 10/17/2021 12:44 PM [employer]ITTING 25 mcg HYDROmorphone (PF) injection 0.2 mg Given 10/17/2021 1:45 PM [employer]ITTING 0.2 mg (DILAUDID) 0.2 mg, intravenous, Every 5 min PRN, moderate pain or score 4-6 of 10, severe pain or score 7-10 of 10, Starting on Sun10/17/21 at 1239, PACU (only), Up to maximum total dose of 2 mg Given 10/17/2021 1:40 PM [employer]ITTING 0.2 mg labetalol injection 5 mg (NORMODYNE,AHMADI DATE) Given 10/17/2021 1:16 PM [employer] 5 mg 5 mg, intravenous, Every 15 min PRN, high blood pressure, For SBP>160 mmHG. Hold for heart rate<60, Starting on Sun10/17/21 at 1239, For 2 doses, PACU (only), Follow institution's IV administration guidelines Given 10/17/2021 1:00 PM [employer] 5 mg lactated ringers Continued from OR 10/17/2021 1:01 PM [employer] 20 mL/hr 20 mL/hr 20 mL/hr, intravenous, Continuous, Starting on Sun10/17/21 at 1100, PACU & Post-Op lisinopriL tablet 2.5 mg (PRINIVIL,ZESTR IL) Given 10/18/2021 8:24 AM [employer] 2.5 mg 2.5 mg, oral, Daily, First dose on Sun10/17/21 at 1430 Given 10/17/2021 2:54 PM [employer] 2.5 mg NaCl 0.45 % infusion New Bag 10/17/2021 2:39 PM [employer] 30 mL/hr 30 mL/hr 30 mL/hr, intravenous, [...] Recently Administered Medications Times are shown in [employer]. Scheduled Medication Order 10/16/2021 10/17/2021 10/18/2021 acetaminophen tablet 1,000 mg (TYLENOL) (COMPLETED) 0950 (Given - Provider: Paz Kohli R.N.) 1,000 mg, oral, Once, On Sun10/17/21 at 1000, For 1 dose, Pre-Op, Sleeper Cutter, PreOp with sips acetaminophen tablet 1,000 mg (TYLENOL) 2208 (Given - Provider: John Velez R.N.) 0405 [...] Provider: Nikia Taylor R.N.)1251 (Given - Provider: Nikai Taylor R.N.) 25 mcg, intravenous, Every 2 [...] 1204 documented in this encounter Care Teams Student Relationship Specialty Start Date End Date Elsewhere, Pcp PCP - General Internal Medicine 10/03/21 documented as of this encounter
--- OUTSIDE RECORDS SUMMARY | 2022-05-25 09:04 | XMS_ITS | Encounter Summary ---
:1955 Author Organization [facility] Address [address] [place] [address] Care Team Providers Name Role Phone Unavailable Primary Care Provider Unavailable Reason for Visit Reason Comments Eye Exam Appointment Request (Routine) - Closed Specialty Diagnoses / Procedures Referred By Contact Refer red To Contact Ophthalmology Referral ID Status Reason Start Date Expiration Date Visits Requ ested Visits Authorized [id number] Closed 04/19/2020 04/19/2021 1 1 Encounter Details Date Type Department Care Team Description 06/01/2020 Comprehensive Visit Department of Magen Michaelsop ia Bilateral (Primary Dx); Ophthalmology in [place] [facility] [facility] O.D. Astigma tism Regular Bilateral; [place] Presbyopia; [address] Age Related [place] [address] Social History Tobacco Use Types Packs/Day [...] How often do you attend mandaen or congregational More than 4 time s [...]
--- OUTSIDE RECORDS SUMMARY | 2022-05-25 09:04 | XMS_ITS | Encounter Summary ---
:1955 Author Organization [facility] Address [address] [place] [address] Care Team Providers Name Role Phone Unavailable Primary Care Provider Unavailable Reason for Visit Auth/Cert Specialty Diagnoses / Procedures Referred By Contact Refer red To Contact Diagnoses Calculus of bile duct without cholangitis or cholecystitis with obstruction Calculus of bile duct without cholangitis or cholecystitis with obstruction Procedures LA CHOLECYSTECTOMY W CHOLANGIOGR Gallbladder removal Referral ID Status Reason Start Date Expiration Date Visits Requ ested Visits Authorized [id number] 1 1 Encounter Details Date Type Department Care Team Description 08/14/2017 Anesthesia Event [facility] MAIN OR Kwan Wihtley APRN, BUSINESS INFORMATION CONSULTANT [address] [place] [address] 701 Nila Reza M.D. [address] [place] [address] [place] [address] Anesthesia Record Procedure Summary Procedure Name Responsible Anesthesia Start Anesthesia Stop Anesthesiologist Time Time LAPAROSCOPIC Kwan Whitley APRN, 08/14/17 1846 0 CHOLECYSTECTOMY WITH BUSINESS INFORMATION CONSULTANT attempted CHOLANGIOGRAM Events Date Time Event Comment [...] h andoff to the receiving staff during [facility] we 1. Identified the patient 2. [...] Ju ne A, R.N. Center; 08/15/17; 1748 MASTER POLICE DETECTIVECHRISTOPHE oMon ETT Placement Date: 08/14/171909 by 08/14/172110 b [...] 1418 by dermabond; Yahaira Chen, RNaomiNNaomi May y-Opckmo-Itaxoaos FABRIC 2X3.75 (x4); nd, Scheduli ng 05/10/21 (Removed by Automated B [facility] Job background completion utility); 141 (Removed by [...] How often do you attend hoahaoism or samaritan More than 4 time s [...] Summary Date: 08/14/17 Room / Location: OR [address] [place] [address] 1409 / [facility] OR Anesthesia Start: 1845 Anesthesia Stop: [...] Post Op nausea/vomiting: none Hydration status: euvolemic E EXPANDER Anesthesia Procedure Notes - Kwan Whitley APRN, [...] glottic airway. Switchedto CMAC with success x1. E EXPANDER Anesthesia Preprocedure Evaluation - Nila Farooq M.D. [...] patient / legal guardian, or through an interpreter translator; patient evaluated and approved for anesthesia / sedation. The use of blood products not discussed NPO > 8 hours E EXPANDER documented in this encounter Miscellaneous Notes Addendum Note - Kwan Whitley APRN, CRNA, D.N.P. - 08/23/2017 10:20 AM FRAME EXPANDER Addendum created 08/23/17 1020 by Kwan Whitley APRN, CRNA, D.N.P. Anesthesia Intra Meds edited E EXPANDER documented in this encounter Plan of Treatment Not on filedocumented as of this encounter Procedures Procedure Name Priority Date/Time Associated Comments Diagnosis LDA ANE ENDOTRACHEAL Routine 08/14/2017 7:09 PM R esults for this AIRWAY FRAME EXPANDER procedure are i n the results section. documented in this encounter Results LDA ANE ENDOTRACHEAL AIRWAY (08/14/2017 7:09 PM FRAME EXPANDER) Narrative Kwan Whitley APRN, CRNA, D.N.P. - 08/14/2017 7:09 PM FRAME EXPANDER Kwan Whitley APRN, CRNA, D.N.P. ? 08/14/2017 [...] to CMAC with success x1. Kwan Whitley MASTER POLICE DETECTIVE, BUSINESS INFORMATION CONSULTANT ANESTHESIA ORDERABLES documented in this encounter Visit Diagnoses Not on filedocumented in this encounter Administered Medications Inactive Administered Medications - up to 3 most recent administrations Medication Order MAR Action Action Date Dose Rate Site ciprofloxacin in D5W IVPB 400 mg Given 08/14/2017 7:01 PM FRAME EXPANDER 40 0 mg (for_CIPRO) 400 mg, intravenous, at 200 mL/hr, Administer over 60 Minutes, Once, On Sun08/14/17 at 1745, For 1 dose, Intra-Op, Preoperatively within 2 hours prior to surgical incision. premix bag, Drug Monitoring Program: Pharmacist to adjust medication order based on comorbities and indication., Indications: Prophylaxis, surgical dexamethasone injection (for_DECADRON) Given 08/14/2017 6:49 PM FRAME EXPANDER 4 mg As needed, Starting on Sun08/14/17 at 1849, Anesthesia Intra-op fentaNYL injection (for_SUBLIMAZE) Given 08/14/2017 6:54 PM FRAME EXPANDER 100 mcg intravenous, As needed, severe pain or score 7-10 of 10, Starting on Sun08/14/17 at 1854, Anesthesia Intra-op HYDROmorphone injection (for_DILAUDID) Given 08/14/2017 7:19 PM FRAME EXPANDER 1 mg As needed, moderate pain or score 4-6 of 10, Starting on Sun08/14/17 at 1919, Anesthesia Intra-op lactated ringers New Bag 08/14/2017 9:12 PM FRAME EXPANDER intravenous, Continuous Infusion: Per Instructions PRN, Starting on Sun08/14/17 at 1846, Anesthesia Intra-op New Bag 08/14/2017 6:46 PM FRAME EXPANDER lidocaine (PF) (cardiac) injection Given 08/14/2017 6:54 PM FRAME EXPANDER 10 mg intravenous, As needed, Starting on Sun08/14/17 at 1854, Anesthesia Intra-op metroNIDAZOLE in NaCl (iso-osm) IVPB 500 mg Given 08/14/2017 7:24 PM FRAME EXPANDER 500 mg (for_FLAGYL) 500 mg, intravenous, at 200 mL/hr, Administer over 30 Minutes, Once, On Sun08/14/17 at 1745, For 1 dose, Intra-Op, Preoperatively within 1 hour prior to surgical incision., Indications: Prophylaxis, surgical midazolam (PF) injection (for_VERSED) Given 08/14/2017 6:46 PM FRAME EXPANDER 2 mg intravenous, As needed, Starting on Sun08/14/17 at 1846, Anesthesia Intra-op ondansetron (PF) injection (for_ZOFRAN) Given 08/14/2017 8:45 PM FRAME EXPANDER 4 mg intravenous, As needed, nausea, vomiting, Starting on Sun08/14/17 at 2045, Anesthesia Intra-op propofol injection (for_DIPRIVAN) Given 08/14/2017 6:54 PM FRAME EXPANDER 200 mg intravenous, As needed, Starting on Sun08/14/17 at 1854, Anesthesia Intra-op rocuronium injection (for_ZEMURON) Given 08/14/2017 8:04 PM FRAME EXPANDER 10 mg intravenous, As needed, Starting on Sun08/14/17 at 1858, Anesthesia Intra-op Given 08/14/2017 6:58 PM FRAME EXPANDER 50 mg succinylcholine-0.9% NaCl (PF) injection Given 08/14/2017 6:54 P M FRAME EXPANDER 140 mg (for_ANECTINE) intravenous, As needed, Starting on Sun08/14/17 at 1854, Anesthesia Intra-op documented in this encounter
--- OUTSIDE RECORDS SUMMARY | 2022-05-25 09:04 | XMS_ITS | Encounter Summary ---
:1955 Author Organization [facility] Address [address] [place] [address] Care Team Providers Name Role Phone Unavailable Primary Care Provider Unavailable Reason for Referral Outpatient (Routine) - Closed Specialty Diagnoses / Procedures Referred By Contact Refer red To Contact Diagnoses Screening Mammogram Breast Cancer Fernando Steven M.D. [facility] Region Procedures BI Breast Screening Bilateral with Tomosynthesis [address] [place], [place] [address] Referral ID Status Reason Start Date Expiration Date Visits Requ ested Visits Authorized [id number] Closed 04/19/2020 04/19/2021 1 1 Reason for Visit Outpatient (Routine) - Closed Specialty Diagnoses / Procedures Referred By Contact Refer red To Contact Diagnoses Screening Mammogram Breast Cancer Fernando Steven M.D. [facility] Region Procedures BI Breast Screening Bilateral with Tomosynthesis [address] [place], [place] [address] Referral ID Status Reason Start Date Expiration Date Visits Requ ested Visits Authorized [id number] Closed 04/19/2020 04/19/2021 1 1 Encounter Details Date Type Department Care Team Description 04/29/2020 Hospital Encounter Department of Fernando Steven ing Mammogram Radiology in Kris Cates M.D. [place], [place] [address] [facility] [phone] Social History Tobacco Use Types Packs/Day Years [...] How often do you attend shinto or gnosticist More than 4 time s [...] D3) 2,000 mouth daily. Unit capsule omega 6-zdo-zaf-fish oil Take 1 capsule by 0 10/1910/03/2021 [...] LOS, [address] st Bilateral Mammography Imaging [facility] Specimen (Source) Anatomical Collection Method Collection Time Re ceived Time Location / / Volume Laterality 04/29/2020 1:35 PM CDT Impressions 04/29/2020 1:37 PM CDT Negative. RECOMMENDATION: ??Annual Screening Mammo gram ASSESSMENT: ??BI-RADS: 1: Negative. Narrative 04/29/2020 1:37 PM CDT EXAM: ??BI BREAST SCREENING BILATERAL WITH TOMOSYNTHESIS Current study was evaluated with a Evolutionary Genomics Aided Detection (CAD) system. INDICATION: ??Screening mammogram. COMPARISON: ??Prior exam(s) were availab le and reviewed for comparison. DENSITY: ??b. There are scattered areas of fibroglandular density. FINDINGS: ??No mammographic findings of malignancy. Procedure Note Marcelino Shelley M.D. - 04/29/2020Format ting of this note might be different from the original. EXAM: BI BREAST SCREENING BILATERAL WITH TOMOSYNTHESIS Current study was evaluated with a Evolutionary Genomics Aided Detection (CAD) system. INDICATION: Screening mammogram. [...]
--- OUTSIDE RECORDS SUMMARY | 2022-05-25 09:04 | XMS_ITS | Encounter Summary ---
:1955 Author Organization [facility] Address [address] [place] [address] Care Team Providers Name Role Phone Unavailable Primary Care Provider Unavailable Reason for Visit Reason Comments Follow-up right foot neuroma returned new orthotics? Encounter Details Date Type Department Care Team Description 11/21/2018 [facility] To e Acquired Right (Primary Dx); Orthopedic Surgery in [place] Neurom a; Ezekiel Beasley D.P.M. Pronation Foot Left; [address] Pronation Foot Right; [place] Metatarsalgia L [place]ft; [phone] Metatarsalgia Right [phone] Social History Tobacco Use Types Packs/Day Years [...] How often do you attend mormon or christianity More than 4 time s [...] 2 tablets by mouth daily. ??? omega 7-hlm-szi-fish oil 600 mg-216 mg- 324 mg-1,200 mg [...]
--- OUTSIDE RECORDS SUMMARY | 2022-05-25 09:04 | XMS_ITS | Encounter Summary ---
:1955 Author Organization [facility] Address [address] [place] [address] Care Team Providers Name Role Phone Unavailable Primary Care Provider Unavailable Reason for Visit Reason Comments Cholelithiasis consult Appointment Request (Routine) - Closed Specialty Diagnoses / Procedures Referred By Contact Refer red To Contact Referral ID Status Reason Start Date Expiration Date Visits Requ ested Visits Authorized [id number] Closed 08/14/2017 02/10/2018 1 1 Encounter Details Date Type Department Care Team Description 08/14/2017 Comprehensive Visit Department of Cristo Feldman General Surgery in [place] (Primary Dx) [place], [address] [place] [phone] Social History Tobacco Use Types Packs/Day Years [...] How often do you attend sikh or yazdanism More than 4 time s [...] Comments Blood Pressure 157/74 08/14/2017 1:47 PM CRITICAL CARE UNIT MANAGER Pulse 84 08/14/2017 1:47 PM CRITICAL CARE UNIT MANAGER Temperature 37.3 ??C (99.1 ??F) 08/14/2017 1:42 PM CRITICAL CARE UNIT MANAGER Respiratory Rate - - Oxygen Saturation - [...] for gallbladder issues. 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 PAST OBSTETRICAL HISTORY: 0, para 0. Last [...] any significant cardiopulmonary risk factors. Job ID: [id number] ICAL CARE UNIT MANAGER documented in this encounter Plan of Treatment Not on filedocumented as of this encounter Visit Diagnoses Diagnosis Cholecystitis - Primary documented in this encounter
--- OUTSIDE RECORDS SUMMARY | 2022-05-25 09:04 | XMS_ITS | Encounter Summary ---
:1955 Author Organization [facility] Address [address] [place] [address] Care Team Providers Name Role Phone Unavailable Primary Care Provider Unavailable Encounter Details Date Type Department Care Team Description 08/17/2017 Abstract Department of Neurological Provider, [facility] orical Surgery in [address] [phone] Social History Tobacco Use [...] How often do you attend mandaeism or quaker More than 4 time s [...]
--- OUTSIDE RECORDS SUMMARY | 2022-05-25 09:04 | XMS_ITS | Encounter Summary ---
:1955 Author Organization [facility] Address [address] [place] [address] Care Team Providers Name Role Phone Unavailable Primary Care Provider Unavailable Reason for Visit Reason Comments Post-op drain removal post lap mona 08-14-17 Outpatient (Routine) - Closed Specialty Diagnoses / Procedures Referred By Contact Refer red To Contact General Surgery Diagnoses Follow Up Examination Postoperative Visit Augie Feldman [facility] KRISTINE fried D.ONaomi [address] [place] [address] Referral ID Status Reason Start Date Expiration Date Visits Requ ested Visits Authorized [id number] Closed 08/16/2017 02/12/2018 1 1 Encounter Details Date Type Department Care Team Description 08/17/2017 Office Visit Department of General Amarilis Feldman D.[address]aomi [address] [place] [address] Cholecystitis (Primary Dx); Surgery in [place] Beasley Paul, M.D. Follow Up Examination Postoperative [address] [phone] Social History Tobacco Use Types Packs/Day [...] How often do you attend druze or hoahaoism More than 4 time s [...] Comments Blood Pressure 149/71 08/17/2017 1:13 PM PUNCHER Pulse 77 08/17/2017 1:13 PM PUNCHER Temperature 37.1 ??C (98.8 ??F) 08/17/2017 1:07 PM PUNCHER Respiratory Rate - - Oxygen Saturation - - Inhaled Oxygen Concentration - - Weight - - Height - - Body Mass Index - - documented in this encounter Progress Notes Jonny Perez M.D. - 08/17/2017 1:15 PM CST SUBJECTIVE CHIEF COMPLAINT/REASON FOR VISIT Post-Operative Visit Referring provider: Augie Feldmna D.O. 3 days HISTORY OF PRESENT ILLNESS Colleen Tolentino is a 62 y.o. female seen in postoperative follow-up. The surgery date was 08/14/2017. The operation performed was: Procedure(s): LAPAROSCOPIC CHOLECYSTECTOMY WITH attempted CHOLANGIOGRAM Surgeon(s) and Role: * Augie Feldman D.O. - Primary Health And Safety Inspector: Susan A Chema, L.P.N. Anesthesia Type: General Pre-Operative Diagnosis: Cholecystitis [...] will follow-up with us in 1 week. HER documented in this encounter Plan of Treatment Not on filedocumented as of this encounter Visit Diagnoses Diagnosis Cholecystitis - Primary Follow Up Examination Postoperative Visi t documented in this encounter
--- OUTSIDE RECORDS SUMMARY | 2022-05-25 09:04 | XMS_ITS | Encounter Summary ---
:1955 Author Organization [facility] Address [address] [place] [address] Care Team Providers Name Role Phone Unavailable Primary Care Provider Unavailable Encounter Details Date Type Department Care Team Description 12/15/2016 Hospital Encounter HX [facility] Lora Coleman M.D. [address] [place] [phone] (Wo rk) Social History Tobacco Use [...] or relatives? How often do you attend religious or zoroastrian More than 4 time s per year 09/17/2021 services? Do you belong to any clubs or organizations Yes 09/17/2021 such as religious groups, unions, fraternal or athletic groups, or [...] daily. mg(1,250mg) -125 unit per tablet omega 1-ehl-nri-fish oil Take 1 capsule by 0 10/1910/03/2021 600 mg-216 mg- 324 mouth daily. mg-1,200 mg capsule,delayed release(DR/EC) documented as of this encounter Miscellaneous Notes Miscellaneous - Conversion, Historical Provider Ser - 12/15/2016 11:59 PM CDT Coding Summary-Paper Based CODING DATE: 12/21/2016 FINAL [facility] STATUS: * Discharged to Home [...] CLARKE Date Saved: 12/21/2016 03:02 pm Source: [facility] POWERCHART Document Id: [id number] documented in this encounter Plan of Treatment Not on filedocumented as of this encounter Visit Diagnoses Not on filedocumented in this encounter
--- OUTSIDE RECORDS SUMMARY | 2022-05-25 09:04 | XMS_ITS | Encounter Summary ---
:1955 Author Organization [facility] Address [address] [place] [address] Care Team Providers Name Role Phone Unavailable Primary Care Provider Unavailable Reason for Referral Outpatient (Routine) - Closed Specialty Diagnoses / Procedures Referred By Contact Refer red To Contact Emergency Medicine Diagnoses Colic Biliary Augie Berry M.D. [facility] [address] [place] [address] [place] [address] Referral ID Status Reason Start Date Expiration Date Visits Requ ested Visits Authorized [id number] Closed 08/14/2017 02/10/2018 1 1 BUYER Reason for Visit Reason Comments Shoulder Pain Auth/Cert Specialty Diagnoses / Procedures Referred By Contact Refer red To Contact Diagnoses Calculus of bile duct without cholangitis or cholecystitis with obstruction Calculus of bile duct without cholangitis or cholecystitis with obstruction Procedures SC CHOLECYSTECTOMY W CHOLANGIOGR Gallbladder removal Referral ID Status Reason Start Date Expiration Date Visits Requ ested Visits Authorized [id number] 1 1 Encounter Details Date Type Department Care Team Description 08/13/2017 - Emergency [place] [facility] Augie Berry, Colic Biliary (Primary 08/14/2017 Department M.Kristina Dx) [address] [place] [id number] Social History Tobacco Use Types Packs/Day [...] How often do you attend sikhism or baptist More than 4 time s [...] Comments Blood Pressure 136/66 08/14/2017 1:45 AM TIE BUYER Pulse 91 08/14/2017 2:00 AM TIE BUYER Temperature 36.5 ??C (97.7 ??F) 08/13/2017 11:44 PM TIE BUYER Respiratory Rate 16 08/14/2017 1:00 AM TIE BUYER Oxygen Saturation 98% 08/14/2017 2:00 AM TIE BUYER Inhaled Oxygen Concentration - - Weight 97.8 kg (215 lb 9.8 oz) 08/13/2017 11:43 PM TIE BUYER Height 157.5 cm (5' 2) 08/13/2017 11:43 PM TIE BUYER Body Mass Index 39.44 08/13/2017 11:43 PM TIE BUYER documented in this encounter Discharge Instructions Discharge Augie Dickson M.D. - 08/14/2017 1:59 AM CST [place], low fat diet. Return for gallbladder ultrasound in AM today. BUYER AttachmentsThe following attachments cannot be sent through Care Everywhere. Cholelithiasis (Mongolian)documented in this encounter Medications at Time of [...] D3) 2,000 mouth daily. Unit capsule omega 5-lgi-egk-fish oil Take 1 capsule by 0 10/1910/03/2021 [...] 209 Colic Biliary Augie Berry M.D. 08/14/17218 BUYER Lora Skinner R.N. - 08/13/2017 11:47 PM CST Pt reports increased pain after eating for past two days. Pt states she has family hx of gallbladderissues and pt denies abd. Surgeries. Angie was helpful yesterday, but pt not finding relief tonight. Lora Skinner R.N. 08/13/17 1944 BUYER documented in this encounter Plan of Treatment Scheduled Referrals Name Type Priority Associated Diagnoses Order S chedule Post ED visit Outpatient Referral Routine Colic Biliary Expect ed: 08/14/2017 (Approximate), Expires: 2019 documented as of this encounter Procedures Procedure Name Priority Date/Time Associated Comments Diagnosis CT CHEST ANGIOGRAM RAD - Semiurgent 08/14/2017 1:25 Re sults for WITH IV CONTRAST (Fast; most ED AM TIE BUYER this proc edure patients; some are in the inpatients) results section. ECG Routine 08/14/2017 12:16 Results for AM TIE BUYER this procedure are in the results section. HEPATIC FUNCTION STAT 08/14/2017 12:05 Results for PANEL, S AM TIE BUYER this procedure are in the results section. NT-PRO B-TYPE STAT 08/14/2017 12:05 Results fo r NATRIURETIC PEPTIDE AM TIE BUYER this pro cedure (BNP), S are in the results section. ACTIVATED PARTIAL STAT 08/14/2017 12:05 Result s for THROMBOPLASTIN TIME AM TIE BUYER this pro cedure (APTT), P are in the results section. PROTHROMBIN TIME STAT 08/14/2017 12:05 Results for (PT), P AM TIE BUYER this procedure are in the results section. D-DIMER, P STAT 08/14/2017 12:05 Results for AM TIE BUYER this procedure are in the results section. TROPONIN T, 5TH GEN, STAT 08/14/2017 12:05 Res ults for P AM TIE BUYER this procedure are in the results section. LIPASE, S/P STAT 08/14/2017 12:05 Results for AM TIE BUYER this procedure are in the results section. AMYLASE, TOT, S STAT 08/14/2017 12:05 Results for AM TIE BUYER this procedure are in the results section. BASIC METABOLIC STAT 08/14/2017 12:05 Results for PANEL, S/P AM TIE BUYER this procedure are in the results section. CBC WITH STAT 08/14/2017 12:04 Results for DIFFERENTIAL, B AM TIE BUYER this procedu re are in the results section. IRIS MICROSCOPIC, U STAT 08/14/2017 12:02 Resu lts for AM TIE BUYER this procedure are in the results section. URINALYSIS WITH STAT 08/14/2017 12:02 Results for MICROSCOPIC IF AM TIE BUYER this procedur e INDICATED, U are in the results section. documented in this encounter Results CT Chest Angiogram with IV Contrast (08/14/2017 1:25 AM TIE BUYER) Anatomical Region Laterality Modality Chest N/A Computed Tomography Specimen (Source) Anatomical Collection Method Collection Time Re ceived Time Location / / Volume Laterality 08/14/2017 8:03 AM TIE BUYER Impressions 08/14/2017 8:15 AM TIE BUYER IMPRESSION: 1. ??Somewhat limited evaluation due to [...] performed in 2010. Narrative 08/14/2017 8:15 AM TIE BUYER EXAM: CT CHEST ANGIOGRAM WITH IV CONTRAST [...] PROCEDURES ECG 12 Lead (08/14/2017 12:16 AM TIE BUYER) Patholo gist Method Time Signature Ventricular 65 BPM MUSE Rate ECG/Min SC Interval 150 ms MUSE QRSD Interval 70 ms MUSE QT Interval 394 ms MUSE QTC Interval 409 ms MUSE P [place] 55 degrees MUSE R [place] 74 degrees MUSE T Wave [place] 60 degrees MUSE Clinical Normal sinus rhythm MUSE Diagnosis Left atrial enlargement Otherwise normal ECG No previous ECGs available Specimen Anatomical Collection Method Collection Time Receive d Time (Source) Location / / Volume Laterality 08/14/2017 12:16 08/14/2017 5:14 AM TIE BUYER AM TIE BUYER Narrative This result has an attachment that is no t available. Augie Berry M.D. ECG ORDERABLES Performing Organization Address City/State/ZIP Code Phon e Number MUSE MUSE NA APTT (Activated Partial Thromboplastin Time) (08/14/2017 12:05 AM TIE BUYER) P athologist Signature APTT, P 33.7 23.7 - 36.1 08/14/2017 [facility] sec 12:34 AM [facility] Specimen Anatomical Collection Method Collection Time Receive d Time (Source) Location / / Volume Laterality Blood (Blood, 08/14/2017 12:05 08/14/2017 Venous) AM TIE BUYER 12:15 AM TIE BUYER Augie Berry M.D. LAB BLOOD ADD-ON Performing Organization Address City/State/ZIP Code Phon e Number [facility] [place] [address] [facility] PT (Prothrombin Time) with INR (08/14/2017 12:05 AM TIE BUYER) athologist Signature Prothrombin 9.4 8.8 - 11.9 08/14/2017 [facility] Time, P sec 12:33 AM [facility] INR 0.9 0.9 - 1.2 08/14/2017 [facility] 12:33 AM [facility] Comment: Standard intensity warfarin therapeutic range: 2.0 to 3.0 High intensity warfarin therapeutic rang e: 2.5 to 3.5 Specimen Anatomical Collection Method Collection Time Receive d Time (Source) Location / / Volume Laterality Blood (Blood, 08/14/2017 12:05 08/14/2017 Venous) AM TIE BUYER 12:15 AM TIE BUYER Augie Berry M.D. LAB BLOOD ADD-ON Performing Organization Address City/State/ZIP Code Phon e Number [facility] [place] [address] [facility] (ABNORMAL) NT-Pro B-Type Natriuretic Peptide (BNP) (08/14/2017 12:05 AM TIE BUYER) athologist Signature NT-Pro BNP 185 (H) <=183 pg/mL 08/14/2017 [facility] 12:46 AM [facility] Comment: NT-proBNP values less than 300 [...] supplements. ??If the result does not ma [facility] clinical observations, repeat testing after patient refrains fr om the use of supplements for at least 12 hours. Specimen Anatomical Collection Method Collection Time Receive d Time (Source) Location / / Volume Laterality Blood (Blood, 08/14/2017 12:05 08/14/2017 Venous) AM TIE BUYER 12:15 AM TIE BUYER Augie Berry M.D. LAB BLOOD ADD-ON Performing Organization Address City/State/ZIP Code Phon e Number [facility] [place] [address] [facility] (ABNORMAL) D-Dimer (08/14/2017 12:05 AM TIE BUYER) P athologist Signature D-Dimer, P 1.76 (H) <0.50 08/14/2017 [facility] mcg/mL FEU 12:36 AM [facility] Comment: ----ADDITIONAL INFORMATION---- Results of this [...] Blood (Blood, 08/14/2017 12:05 08/14/2017 Venous) AM TIE BUYER 12:15 AM TIE BUYER Augie Berry M.D. LAB BLOOD ADD-ON Performing Organization Address City/State/ZIP Code Phon e Number [facility] Jennifer [facility] [place] [address] [facility] Troponin T (08/14/2017 12:05 AM TIE BUYER) P athologist Signature Troponin T, S <0.01 <0.01 ng/mL 08/14/2017 [facility] 12:39 AM [facility] Comment: Biotin has been identified by the manufa cturer as a potential interfering substance. ??Higher concentr ations of biotin may be found in multivitamins, hair/nail supple ments, and workout supplements. ??If the result does not ma [facility] clinical observations, repeat testing after patient refrains fr om the use of supplements for at least 12 hours. Specimen Anatomical Collection Method Collection Time Receive d Time (Source) Location / / Volume Laterality Blood (Blood, 08/14/2017 12:05 08/14/2017 Venous) AM TIE BUYER 12:15 AM TIE BUYER Augie Berry M.D. LAB BLOOD ADD-ON Performing Organization Address City/[facility]/ZIP Code Phon e Number [facility] [address] [place] [address] [facility] Hepatic Function Panel (08/14/2017 12:05 AM TIE BUYER) [facility] Method Time Signature Bilirubin, Total, S 0.4 <=1.2 08/14/2017 [facility] mg/dL 12:43 AM [facility] Bilirubin, Direct, S <0.2 0.0 - 0.3 08/14/2017 [facility] SHENG mg/dL 12:46 AM [facility] Aspartate 27 8 - 43 08/14/2017 [facility] Aminotransferase U/L 12:43 AM [facility] Kera (AST), [facility] Alanine 34 7 - 45 08/14/2017 [facility] Aminotransferase U/L 12:43 AM [facility] Kera (ALT), S [facility] Alkaline 110 50 - 130 08/14/2017 [facility] Phosphatase, S U/L 12:43 AM [facility] Albumin, S 4.4 3.5 - 5.0 08/14/2017 [facility] g/dL 12:43 AM [facility] Protein, Total, S 7.6 6.3 - 7.9 08/14/2017 [facility] g/dL 12:43 AM [facility] Specimen Anatomical Collection Method Collection Time Receive d Time (Source) Location / / Volume Laterality Blood (Blood, 08/14/2017 12:05 08/14/2017 Venous) AM TIE BUYER 12:13 AM TIE BUYER Augie Berry M.D. LAB BLOOD ADD-ON Performing Organization Address City/State/ZIP Code Phon e Number [facility] [address] [place] [address] [facility] (ABNORMAL) BMP (Basic Metabolic Panel) (08/14/2017 12:05 AM [facility]) P athologist Signature Potassium, P 3.6 3.6 - 5.2 08/14/2017 [facility] mmol/L 12:43 AM [facility] Sodium, P 136 135 - 145 08/14/2017 [facility] mmol/L 12:43 AM [facility] Chloride, P 97 (L) 98 - 107 08/14/2017 [facility] mmol/L 12:43 AM [facility] Bicarbonate, P 25 22 - 29 08/14/2017 [facility] mmol/L 12:43 AM [facility] Anion Gap, P 14 7 - 15 08/14/2017 [facility] 12:43 AM [facility] BUN (Blood Urea 14 6 - 21 08/14/2017 [facility] Nitrogen), P mg/dL 12:43 AM [facility] Creatinine 0.64 0.59 - 08/14/2017 [facility] 1.04 mg/dL 12:43 AM [facility] eGFR-Black/Afri >90 >=60 08/14/2017 [facility] can Gambian mL/min/BSA 12:43 AM [facility] Comment: ----ADDITIONAL INFORMATION---- Estimated GFR calculated using the 2009 CKD_EPI creatinine equation. eGFR Non-Black/ >90 >=60 mL/min/BSA 08/14/2017 12:43 AM [facility] Gambian [facility] Comment: ----ADDITIONAL INFORMATION---- Estimated GFR calculated using the 2009 CKD_EPI creatinine equation. Calcium, Total, P 8.7 (L) 8.9 - 10.1 mg/dL 08/14/2017 1 2:43 AM [facility] Glucose, P 127 70 - 140 mg/dL 08/14/2017 12:43 AM [facility] Specimen Anatomical Collection Method Collection Time Receive d Time (Source) Location / / Volume Laterality Blood (Blood, 08/14/2017 12:05 08/14/2017 Venous) AM TIE BUYER 12:13 AM TIE BUYER Augie Berry M.D. LAB BLOOD ADD-ON Performing Organization Address City/State/ZIP Code Phon e Number [facility] [place] [address] [facility] Lipase (08/14/2017 12:05 AM TIE BUYER) P athologist Signature Lipase, P 48 13 - 60 U/L 08/14/2017 [facility] 12:43 AM [facility] Specimen Anatomical Collection Method Collection Time Receive d Time (Source) Location / / Volume Laterality Blood (Blood, 08/14/2017 12:05 08/14/2017 Venous) AM TIE BUYER 12:13 AM TIE BUYER Augie Berry M.D. LAB BLOOD ADD-ON Performing Organization Address City/State/ZIP Code Phon e Number [facility] [place] [address] [facility] Amylase, Total (08/14/2017 12:05 AM TIE BUYER) P athologist Signature Amylase, Total, 72 26 - 102 08/14/2017 [facility] P U/L 12:43 AM [facility] Specimen Anatomical Collection Method Collection Time Receive d Time (Source) Location / / Volume Laterality Blood (Blood, 08/14/2017 12:05 08/14/2017 Venous) AM TIE BUYER 12:13 AM TIE BUYER Augie Berry M.D. LAB BLOOD ADD-ON Performing Organization Address City/State/ZIP Code Phon e Number [facility] [place] [address] [facility] (ABNORMAL) CBC with Differential (08/14/2017 12:04 AM TIE BUYER) [facility] gist Method Time Signature Hemoglobin 13.3 11.6 - 08/14/2017 [facility] 15.0 g/dL 12:20 AM [facility] [employer] [facility] [place] Hematocrit 39.1 35.5 - 08/14/2017 [facility] 44.9 % 12:20 AM [facility] [employer] [facility] Erythrocytes 4.43 3.92 - 08/14/2017 [facility] 5.13 12:20 AM TIE BUYER HEALTH x10(12)/L [facility] MCV 88.3 78.2 - 08/14/2017 [facility] 97.9 fL 12:20 AM [facility] RBC Distrib Width 13.4 12.2 - 08/14/2017 [facility] 16.1 % 12:20 AM [facility] Platelet Count 191 157 - 371 08/14/2017 [facility] x10(9)/L 12:20 AM [facility] Leukocytes 10.3 (H) 3.4 - 9.6 08/14/2017 [facility] x10(9)/L 12:20 AM [facility] Neutrophils 7.65 (H) 1.56 - 08/14/2017 [facility] 6.45 12:20 AM [facility] x10(9)/L [facility] Lymphocytes 1.98 0.95 - 08/14/2017 [facility] 3.07 12:20 AM [facility] x10(9)/L [facility] Monocytes 0.50 0.26 - 08/14/2017 [facility] 0.81 12:20 AM [facility] [employer] x10(9)/L [facility] Eosinophils 0.16 0.03 - 08/14/2017 [facility] 0.48 12:20 AM [facility] x10(9)/L [facility] Basophils 0.03 0.01 - 08/14/2017 [facility] 0.08 12:20 AM [facility] x10(9)/L [facility] Specimen Anatomical Collection Method Collection Time Receive d Time (Source) Location / / Volume Laterality Blood (Blood, 08/14/2017 12:04 08/14/2017 Venous) AM TIE BUYER 12:13 AM [facility] Augie Berry M.D. LAB BLOOD ADD-ON Performing Organization Address City/State/ZIP Code Phon e Number [facility] [address] [facility] [place] [address] [facility] Iris Microscopic, U (08/14/2017 12:02 AM TIE BUYER) P athologist Signature White Blood 4-10 /hpf 08/14/2017 [facility] Cells 12:43 AM [facility] Comment: ----REFERENCE VALUE---- Males: 0-3 Females: 0-10 Unknown: 0-10 Red Blood Cells Occ-2 0 - 2 /hpf 08/14/2017 12:43 AM [facility] Squamous Epithelial Occ-3 /hpf 08/14/2017 12:43 AM [facility] Specimen Anatomical Collection Method Collection Time Receive d Time (Source) Location / / Volume Laterality Urine 08/14/2017 12:02 08/14/2017 AM TIE BUYER 12:12 AM TIE BUYER Augie Berry M.D. LAB URINE ORDERABLES Performing Organization Address City/State/ZIP Code Phon e Number [facility] [address] [place] [address] [facility] (ABNORMAL) Urinalysis with Microscopic if Indicated Urine, Clean Catch (08/14/2017 12:02 AM TIE BUYER) P athologist Signature Source Midstream 08/14/2017 [facility] 12:43 AM [facility] Clarity Clear Clear 08/14/2017 [facility] 12:43 AM [facility] Color Yellow 08/14/2017 [facility] 12:43 AM [facility] Comment: ----REFERENCE VALUE---- Colorless Yellow Odalys Blood Negative Negative 08/14/2017 12:43 AM [facility] Nitrite Negative Negative 08/14/2017 12:43 AM [facility] Leukocyte Esterase Small (A) Negative 08/14/2017 12:43 AM [facility] Protein, U Negative mg/dL 08/14/2017 12:43 AM [facility] Comment: ----REFERENCE VALUE---- Negative Trace Glucose Negative Negative mg/dL 08/14/2017 12:43 AM [facility] [place] [facility] Ketone Negative Negative mg/dL 08/14/2017 12:43 AM [facility] [place] Bilirubin Negative Negative 08/14/2017 12:43 AM [facility] pH 7.0 5.0 - 8.0 08/14/2017 12:43 AM [facility] [place] [facility] Specific [place] 1.014 1.001 - 1.035 08/14/2017 12:43 AM [facility] Urobilinogen 0.2 0.2 - 1.0 08/14/2017 12:43 AM [facility] Specimen Anatomical Collection Method Collection Time Receive d Time (Source) Location / / Volume Laterality Urine (Urine, 08/14/2017 12:02 08/14/2017 Clean Catch) AM TIE BUYER 12:12 AM TIE BUYER Augie Berry M.D. LAB URINE ORDERABLES Performing Organization Address City/State/ZIP Code Phon e Number [facility] [address] [place] [address] [facility] documented in this encounter Visit Diagnoses Diagnosis Colic Biliary - Primary documented in this encounter Administered Medications Inactive Administered Medications - up to 3 most recent administrations Medication Order MAR Action Action Date Dose Rate Site HYDROmorphone injection 0.5 mg Given 08/14/2017 12:32 AM TIE BUYER 0.5 mg (for_DILAUDID) 0.5 mg, intravenous, Once, On Sun08/14/17 at 0032, For 1 dose HYDROmorphone injection 0.5 mg (for_DILA UDID) Given 08/14/2017 1:57 AM TIE BUYER 0.5 mg 0.5 mg, intravenous, Once, On Sun08/14/17 at 0156, For 1 dose iohexol 350 mg iodine/mL solution 125 mL Given 08/14/2017 1:03 A M TIE BUYER 125 mL (for_OMNIPAQUE) 125 mL, intravenous, Once in imaging, contrast, Starting on Sun08/14/17 at 0058, For 1 dose ketorolac injection 30 mg (for_TORADOL) Given 08/14/2017 12:14 AM TIE BUYER 30 mg 30 mg, intravenous, Once, On Sun08/14/17 at 0012, For 1 dose, Adult IV push rate: Over 15 seconds. Peds IV push rate: Over 1 minute. 60 mg dose only for IM, not recommended for IV., Drug Monitoring Program: Pharmacist to adjust medication order based on comorbities and indication. sodium chloride 0.9 % injection 10 mL Given 08/14/2017 1:41 AM TIE BUYER 10 mL 10 mL, intravenous, As needed, line care, Starting on Sun08/14/17 at 0058 sodium chloride 0.9 % injection 50 mL Given 08/14/2017 1:00 AM TIE BUYER 50 mL 50 mL, intravenous, Once, On Sun08/14/17 at 0100, For 1 dose documented in this encounter Active and Recently Administered Medications Times are shown in TIE BUYER. Scheduled Medication Order 08/12/2017 08/13/2017 08/14/2017 HYDROmorphone [...]
--- OUTSIDE RECORDS SUMMARY | 2022-05-25 09:04 | XMS_ITS | Encounter Summary ---
:1955 Author Organization [facility] Address [address] [place] [address] Care Team Providers Name Role Phone Unavailable Primary Care Provider Unavailable Reason for Referral Outpatient (Routine) - Closed Specialty Diagnoses / Procedures Referred By Contact Refer red To Contact General Surgery Diagnoses Cholecystitis Alvin Mathur D.O. [facility] Region [address] [place] [address] Referral ID Status Reason Start Date Expiration Date Visits Requ ested Visits Authorized [id number] Closed 08/15/2017 02/11/2018 1 1 P ANALYST Reason for Visit Auth/Cert Specialty Diagnoses / Procedures Referred By Contact Refer red To Contact Diagnoses Calculus of bile duct without cholangitis or cholecystitis with obstruction Calculus of bile duct without cholangitis or cholecystitis with obstruction Procedures MI CHOLECYSTECTOMY W CHOLANGIOGR Gallbladder removal Referral ID Status Reason Start Date Expiration Date Visits Requ ested Visits Authorized [id number] 1 1 Encounter Details Date Type Department Care Team Description 08/14/2017 - Hospital Encounter [facility] Francia, Cholecyst itis 08[facility]15[facility]2017 [facility], [address] [place] [address] Third Floor [address] [place] [phone] Social History Tobacco Use Types Packs/Day Years [...] How often do you attend religion or methodist More than 4 time s [...] Comments Blood Pressure 128/56 08/15/2017 5:03 PM STAMP ANALYST Pulse 79 08/15/2017 5:03 PM STAMP ANALYST Temperature 36.5 ??C (97.7 ??F) 08/15/2017 5:03 PM STAMP ANALYST Respiratory Rate 16 08/15/2017 5:03 PM STAMP ANALYST Oxygen Saturation 97% 08/15/2017 5:03 PM STAMP ANALYST Inhaled Oxygen Concentration - - Weight 98 kg (216 lb 0.8 oz) 08/15/2017 4:51 AM STAMP ANALYST Height 157.5 cm (5' 2) 08/14/2017 4:33 PM STAMP ANALYST Body Mass Index 39.52 08/14/2017 4:33 PM STAMP ANALYST documented in this encounter Discharge Summaries Alvin [...] Case IDs Date Procedure Surgeon Location Status [id number] 08/14/17 LAPAROSCOPIC CHOLECYSTECTOMY WITH attempted CHOLANGIOGRAM Alvin Mathur D.O. [facility] OR Comp DISCHARGE DISPOSITION Home or Self [...] Dose: 3 tablet Commonly known as: [facility] Dose: 2 tablet Commonly known as: Allergy Immunotherapy omega 8-ydz-ggs-fish oil 600 mg-216 mg- 324 mg-1,200 mg [...] for up to 3 days EarliestFill Date: 12/26/17. TYLENOL EXTRA STRENGTH 500 mg tablet Dose: [...] THIS ADMISSION None CONDITION AT DISCHARGE good P ANALYST documented in this encounter Discharge Instructions AttachmentsThe following attachments cannot be sent through Care Everywhere.Care of Your Surgical Drainage Tube (Botswanan)documented in this encounter Medications at Time of [...] D3) 2,000 mouth daily. Unit capsule omega 7-bhp-icv-fish oil Take 1 capsule by 0 10/1910/03/2021 [...] own drain for the next several days. P ANALYST Nila Farooq M.D. - 08/15/2017 8:19 AM CST Anesthesia Post-Op Visit Patient: Damian Tolentino Anesthesia Post-Op Visit Postoperative day: 1 Follow-up type: inpatient Cardiovascular status: hemodynamic (HR & BP) acceptable Respiratory status: patent airway with spontaneous effort Oxygen requirements: room air Level of consciousness: awake Pain score: pain adequately controlled and /or at baseline Post Op nausea/vomiting: none P ANALYST documented in this encounter Nursing Notes Monika [...] and demonstrated proper emptying of TAMICA drain P ANALYST George Rico R.N. - 08/15/2017 2:15 PM [...] to discharge later today once Doctor rounds P ANALYST Rupinder Muro RNaomiNNaomi - 08/15/2017 4:21 AM CST PAIN - [...] pain control and used call light appropriately. P ANALYST Senia Manrique R.N. - 08/14/2017 4:36 PM CST Goals: Patient will have adequate pain control throughout shift Identify possible barriers to meeting goals/advancing plan of care: Acute illness Stability of the patient: Moderately Unstable - Medium risk of patient condition declining or worsening End of Shift Summary:Patient has had adequate pain control throughout shift P ANALYST documented in this encounter OR Notes Op Note - Alvin Mathur D.O. - 08/14/2017 7:13 PM CST FULL OP NOTE Procedure(s): LAPAROSCOPIC CHOLECYSTECTOMY WITH attempted CHOLANGIOGRAM Surgeon(s) and Role: * Alvin Mathur D.O. - Primary Machine Sole Leveler: Susan Bear L.P.N. Anesthesia Type: General Pre-Operative [...] in log * Alvin Mathur D.O. TPR P ANALYST Brief Op Note - Alvin Mathur D.O. [...] implants in log * Alvin Mathur D.O. P ANALYST documented in this encounter Plan of Treatment Scheduled Referrals Name Type Priority Associated Diagnoses Order [facility] General Surgery Outpatient Referral Routine Cholecystitis Expe cted: Post Op (clinic) 08/22/2017 (Approximate), Expires: 08/15/2020 documented as of this encounter Procedures Procedure Name Priority Date/Time Associated Comments Diagnosis HEPATIC FUNCTION Routine 08/15/2017 5:56 Results for PANEL, S AM STAMP ANALYST this procedure are in the results section. CBC WITH Routine 08/15/2017 5:56 Results for DIFFERENTIAL, B AM STAMP ANALYST this procedu re are in the results section. INCENTIVE SPIROMETRY Routine 08/15/2017 1:23 - RT/RN AM STAMP ANALYST INCENTIVE SPIROMETRY Routine 08/15/2017 1:23 - RT/RN AM STAMP ANALYST INCENTIVE SPIROMETRY Routine 08/15/2017 1:23 - RT/RN AM STAMP ANALYST INCENTIVE SPIROMETRY Routine 08/15/2017 1:23 - RT/RN AM STAMP ANALYST INCENTIVE SPIROMETRY Routine 08/15/2017 1:23 - RT/RN AM STAMP ANALYST INCENTIVE SPIROMETRY Routine 08/15/2017 1:23 - RT/RN AM STAMP ANALYST INCENTIVE SPIROMETRY Routine 08/15/2017 1:23 - RT/RN AM STAMP ANALYST INCENTIVE SPIROMETRY Routine 08/15/2017 1:23 - RT/RN AM STAMP ANALYST FL FLUORO LESS THAN 1 RAD - Routine 08/14/2017 8:00 Re sults for HOUR (most inpatients PM STAMP ANALYST this proced ure and all are in the outpatients) results section. PATHOLOGY SERVICES Routine 08/14/2017 7:18 Cholecystitis Resul ts for PM STAMP ANALYST this procedure are in the results section. LAPAROSCOPIC 08/14/2017 6:25 Cholecystitis CHOLECYSTECTOMY WITH PM STAMP ANALYST CHOLANGIOGRAM documented in this encounter Results (ABNORMAL) Hepatic Function Panel (08/15/2017 5:56 AM STAMP ANALYST) [facility] Method Time Signature Bilirubin, Total, S 0.8 <=1.2 08/15/2017 [facility] mg/dL 6:53 AM [facility] Bilirubin, Direct, S 0.2 0.0 - 0.3 08/15/2017 [facility] mg/dL 6:53 AM [facility] Aspartate 76 (H) 8 - 43 08/15/2017 [facility] Aminotransferase U/L 6:53 AM [facility] [employer] ([facility] Alanine 81 (H) 7 - 45 08/15/2017 [facility] Aminotransferase U/L 6:53 AM [facility] [employer] (ALT), [facility] Alkaline 75 50 - 130 08/15/2017 [facility] Phosphatase, S U/L 6:53 AM [facility] Albumin, S 3.5 3.5 - 5.0 08/15/2017 [facility] g/dL 6:53 AM [facility] Protein, Total, S 6.2 (L) 6.3 - 7.9 08/15/2017 [facility] g/dL 6:53 AM [facility] Specimen Anatomical Collection Method Collection Time Receive d Time (Source) Location / / Volume Laterality Blood (Blood, 08/15/2017 5:56 AM 08/15/20 17 6:14 Venous) STAMP ANALYST AM STAMP ANALYST Alvin Mathur D.O. LAB BLOOD ADD-ON Performing Organization Address City/State/ZIP Code Phon e Number [facility] [address] [place] [address] [place] [facility] (ABNORMAL) CBC with Differential (08/15/2017 5:56 AM STAMP ANALYST) [facility] Method Time Signature Hemoglobin 12.4 11.6 - 08/15/2017 [facility] 15.0 g/dL 6:18 AM [facility] Hematocrit 36.9 35.5 - 08/15/2017 [facility] 44.9 % 6:18 AM [facility] [place] [facility] Erythrocytes 4.20 3.92 - 08/15/2017 [facility] 5.13 6:18 AM [facility] x10(12)/L [facility] [place] [facility] MCV 87.9 78.2 - 08/15/2017 [facility] 97.9 fL 6:18 AM [facility] RBC Distrib Width 13.4 12.2 - 08/15/2017 [facility] 16.1 % 6:18 AM [facility] Platelet Count 159 157 - 371 08/15/2017 [facility] x10(9)/L 6:18 AM [facility] Leukocytes 17.1 (H) 3.4 - 9.6 08/15/2017 [facility] x10(9)/L 6:18 AM [facility] Neutrophils 15.33 (H) 1.56 - 08/15/2017 [facility] 6.45 6:18 AM [facility] x10(9)/L SYSTEM [place] [facility] Lymphocytes 0.92 (L) 0.95 - 08/15/2017 [facility] 3.07 6:18 AM [facility] x10(9)/L [facility] [place] [facility] Monocytes 0.78 0.26 - 08/15/2017 [facility] 0.81 6:18 AM [facility] x10(9)/L SYSTEM [place] [facility] Eosinophils 0.00 (L) 0.03 - 08/15/2017 [facility] 0.48 6:18 AM [facility] x10(9)/L SYSTEM [place] [facility] Basophils 0.03 0.01 - 08/15/2017 [facility] 0.08 6:18 AM [facility] x10(9)/L SYSTEM [place] [facility] Specimen Anatomical Collection Method Collection Time Receive d Time (Source) Location / / Volume Laterality Blood (Blood, 08/15/2017 5:56 AM 08/15/20 17 6:14 Venous) STAMP ANALYST AM STAMP ANALYST Alvin Mathur D.O. LAB BLOOD ADD-ON Performing Organization Address City/State/ZIP Code Phon e Number [facility] [address] [place] [address] [place] [facility] [place] Fluoro Less Than 1 Hour (08/14/2017 8:00 PM STAMP ANALYST) Specimen (Source) Anatomical Location Collection Method / Collectio n Time Received Time / Laterality Volume Narrative [id number] - 08/14/2017 8:20 PM STAMP ANALYST This exam does not require a physician interpretation. Please check notes for clinical details. Alvin Mathur D.O. IMG FLUOROSCOPY PROCEDURES Performing Organization Address [facility]/ZIP Code Phon e Number [id number] NA Pathology Services (08/14/2017 7:18 PM STAMP ANALYST) Component Value Ref Test Analysis Performed At [facility] Range Method Time Signature PATHOLOGY Patient Name: DAMIAN TOLENTINO [facility] MR#: [id number] [facility] Submitting Physician: ALVIN MATHUR DO [id number] Specimen #[id number] Performing Lab: ??[facility] ? [address] [place] [address] Source: Gallbladder and stones Clinical History/Pre-Op Cholecystitis [...] ? ?The mucosal wall measures 0.3 cm. ??Key Punch Teacher sections are submitted in cassette A1. KG/ed ?? Diagnosis Gallbladder, cholecystectomy: ACUTE NECROTIZING CHOLECYSTITIS. Electronically Signed By SANTY GUERIN MD - 08/16/2017 ed/08/16/2017 Specimen (Source) Anatomical Collection Method Collection Time Re ceived Time Location / / Volume Laterality Tissue 08/14/2017 7:18 PM (Gallbladder) STAMP ANALYST Alvin Mathur D.O. LAB SURG PATH ORDERABLES Performing Organization Address City/[facility]/ZIP Code Phon e Number [address] [address] documented in this encounter Visit Diagnoses Diagnosis Cholecystitis - Primary documented in this encounter Admitting Diagnoses Diagnosis Cholecystitis documented in this encounter Administered Medications Inactive Administered Medications - up to 3 most recent administrations Medication Order MAR Action Action Date Dose Rate Site acetaminophen tablet 1,000 mg Given 08/15/2017 6:00 PM STAMP ANALYST 1,000 mg (for_TYLENOL) 1,000 mg, oral, Every 6 hours PRN, mild pain or score 1-3 of 10, Starting on Sun08/15/17 at 0123 Given 08/15/2017 12:34 PM STAMP ANALYST 1,[address] tablet 81 mg Given 08/15/2017 8:12 AM STAMP ANALYST 81 mg 81 mg, oral, Daily, First dose on Sun08/15/17 at 0900, Swallow whole. Do NOT crush, chew, or split tablet. calcium carbonate-vitamin D3 1,250 mg (500 Given 08/15 8:12 AM STAMP ANALYST 1 tablet mg calcium)-200 unit per tablet 1 tablet 1 tablet, oral, Daily with breakfast, First dose on Sun08/15/17 at 0800, calcium carbonate/vitamin D 600 mg/400 units was interchanged for calcium carbonate/vitamin D3 (Same frequency) cholecalciferol tablet 2,000 Units Given 08/15/2017 8:12 AM STAMP ANALYST 2,000 Units (for_VITAMIN D3) 2,000 Units, oral, [...] surgical heparin (porcine) Given 08/14/2017 5:48 PM STAMP ANALYST 5,000 Units Left Lower Abdomen injection 5,000 Units 5,000 Units, subcutaneous, Once, On Sun08/14/17 at 1745, For 1 dose, Intra-Op, Administer prior to induction of anesthesia. heparin (porcine) Given 08/15/2017 5:17 AM STAMP ANALYST 5,000 Units Left Upper Abdomen injection 5,000 Units 5,000 Units, subcutaneous, 3 times daily, First dose on Sun08/15/17 at 0530 HYDROmorphone injection 1 mg (for_DILAUD ID) Given 08/14/2017 4:07 PM STAMP ANALYST 1 mg 1 mg, intravenous, Every 1 hour PRN, pain, Starting on Sun08/14/17 at 1550 ketorolac injection 15 mg (for_TORADOL) Given 08/15/2017 7:19 AM STAMP ANALYST 15 mg 15 mg, intravenous, Every 6 [...] lactated ringers New Bag 08/14/2017 4:12 PM STAMP ANALYST 75 mL/hr 75 mL/hr 75 mL/hr, intravenous, Continuous, Starting on Sun08/14/17 at 1600, Pre-Op metoprolol tablet 12.5 mg (for_LOPRESSOR ) Given 08/14/2017 4:06 PM STAMP ANALYST 12.5 mg 12.5 mg, oral, Once as [...] NaCl (iso-osm) New Bag 08/15/2017 2:47 PM STAMP ANALYST 500 mg 200 mL/hr IVPB 500 mg (for_FLAGYL) 500 mg, intravenous, at 200 mL/hr, Administer over 30 Minutes, Every 8 hours, First dose on Sun08/15/17 at 0700, For 2 doses, Indications: Prophylaxis, surgical New Bag 08/15/2017 8:12 AM STAMP ANALYST 500 mg 200 mL/hr NaCl 0.9% infusion [...] mg per Given 08/15/2017 8:12 A M STAMP ANALYST 1 tablet tablet 1 tablet (for_SENOKOT-S) 1 tablet, oral, 2 times daily, First dose on Sun08/15/17 at 0900, for constipation sodium chloride 0.9 % injection 10 mL Given 08/14/2017 4:08 PM STAMP ANALYST 10 mL 10 mL, intravenous, Every 8 [...] injection 3 mL Given 08/15/2017 8:12 AM STAMP ANALYST 3 mL 3 mL, intravenous, As needed, [...] Recently Administered Medications Times are shown in STAMP ANALYST. Scheduled Medication Order 08/13/2017 08/14/2017 08/15/2017 aspirin [...] frequency) cholecalciferol tablet 2,000 Units (for_VITAMIN D3) 0812 (Given - Provider: George Rico R.N.) 2,000 [...] mg per tablet 1 tablet (for_SE NOKOT-S) 811 (Given - Provider: George Rico R.N.) 1 [...] Manrique R.N.)1612 (New Bag - Provider: Senia A Maxatawny, R.N.) 75 mL/hr, intravenous, Continuous, Starting on Sun08/14/17 at 1 600, Pre-Op PRN Medication Order 08/13/2017 08/14/2017 08/15/2017 acetaminophen tablet 1,000 mg (for_TYLENOL) 1234 (Given - Provider: Rocio Schmidt RNaomiNNaomi)1800 (Given - Provider: Monika Loera R.N.) 1,000 mg, oral, Every 6 hours PRN, mild pain or score 1-3 of 10, Starting on Sun08/15/17 at 0123 dexamethasone (PF) 10 mg/mL injection 4 mg (for_DECADRON) 4 mg, intravenous, Once as needed, nause a, vomiting, Starting Sun08/15/17 at 012, For 1 dose, Give only if NOT [...] (for_DILAUDID) 1607 (Given - Provider: Senia Manrique RNaomiNNaomi) 1 mg, intravenous, Every 1 hour PRN, [...] with use. ketorolac injection 15 mg (for_TORADOL) 718 (Given - Provider: George Rico RMary) 15 mg, intravenous, Every 6 hours PRN, [...] (COMPLETED) 1606 (Given - Provider: Senia Manrique RNaomiNNaomi) 12.5 mg, oral, Once as needed, if [...]
--- OUTSIDE RECORDS SUMMARY | 2022-05-25 09:04 | XMS_ITS | Encounter Summary ---
:1955 Author Organization [facility] Address [address] [place] [address] Care Team Providers Name Role Phone Unavailable Primary Care Provider Unavailable Encounter Details Date Type Department Care Team Description 12/09/2018 Hospital Encounter Department of Irina Ph[facility] [place] [address] [place] [phone] Social History Tobacco Use Types Packs/Day [...] often do you attend jehovah's witness or druze More than 4 time s [...] D3) 2,000 mouth daily. Unit capsule omega 6-esf-bsa-fish oil Take 1 capsule by 0 10/1910/03/2021 [...]
--- OUTSIDE RECORDS SUMMARY | 2022-05-25 09:04 | XMS_ITS | Encounter Summary ---
:1955 Author Organization [facility] Address [address] [place] [address] Care Team Providers Name Role Phone Unavailable Primary Care Provider Unavailable Reason for Visit Reason Comments Post-op Lap mona 08/14/17 Outpatient (Routine) - Closed Specialty Diagnoses / Procedures Referred By Contact Refer red To Contact General Surgery Diagnoses Cholecystitis Augie Feldman D.O. [facility] [address] [place] [address] Referral ID Status Reason Start Date Expiration Date Visits Requ ested Visits Authorized [id number] Closed 08/15/2017 02/11/2018 1 1 Encounter Details Date Type Department Care Team Description 08/22/2017 Office Visit Department of General Augie Feldman, Cholecystitis Surgery in Kris Haro D.O. [place] [address] [facility] [address] [place] [address] [place] [address]1 [address]48 [phone] Social History Tobacco Use Types Packs/Day Years [...] How often do you attend islam or adventist More than 4 time s [...] Comments Blood Pressure 137/75 08/22/2017 9:26 AM WOOL HANKER Pulse 75 08/22/2017 9:26 AM WOOL HANKER Temperature 36.4 ??C (97.5 ??F) 08/22/2017 9:26 AM WOOL HANKER Respiratory Rate - - Oxygen Saturation - - Inhaled Oxygen Concentration - - Weight - - Height - - Body Mass Index - - documented in this encounter Progress Notes uAgie Feldman D.O. - 08/22/2017 12:00 AM CST [...] happy to re-evaluate as needed. Job ID: [id number] HANKER documented in this encounter Plan of Treatment Not on filedocumented as of this encounter Visit Diagnoses Diagnosis Cholecystitis documented in this encounter
--- OUTSIDE RECORDS SUMMARY | 2022-05-25 09:04 | XMS_ITS | Encounter Summary ---
:1955 Author Organization [facility] Address [address] [place] [address] Care Team Providers Name Role Phone Unavailable Primary Care Provider Unavailable Encounter Details Date Type Department Care Team Description 08/16/2017 Documentation Department of General Lucretia Gerardo, Surgery in [address] [phone] Social History Tobacco Use Types Packs/Day Years [...] How often do you attend congregational or yazidi More than 4 time s [...] Post op order placed and appointment scheduled. ER OPERATOR documented in this encounter Plan of Treatment Not on filedocumented as of this encounter Visit Diagnoses Not on filedocumented in this encounter
--- OUTSIDE RECORDS SUMMARY | 2022-05-25 09:04 | XMS_ITS | Encounter Summary ---
:1955 Author Organization [facility] Address [address] [place] [address] Care Team Providers Name Role Phone Unavailable Primary Care Provider Unavailable Reason for Referral Outpatient (Routine) - Closed Specialty Diagnoses / Procedures Referred By Contact Refer red To Contact General Surgery Diagnoses Follow Up Examination Postoperative Visit Augie Feldman [facility] KRISTINE fried D.O. [address] [place] [phone] Referral ID Status Reason Start Date Expiration Date Visits Requ ested Visits Authorized [id number] Closed 08/16/2017 02/12/2018 1 1 WINDER Encounter Details Date Type Department Care Team Description 08/16/2017 Orders Only Department of General Lucretia Gerardo F ollow Up Examination Surgery in [place] Postoperative Visit [place] [address] Angela Altman (Primary Dx) [address] [place] [phone] Social History Tobacco Use Types Packs/Day Years [...] or relatives? How often do you attend scientology or cheondoism More than 4 time s per year 09/17/2021 services? Do you belong to any clubs or organizations Yes 09/17/2021 such as scientology groups, unions, fraternal or athletic groups, or [...]
--- OUTSIDE RECORDS SUMMARY | 2022-05-25 09:04 | XMS_ITS | Encounter Summary ---
:1955 Author Organization [facility] Address [address] [place] [address] Care Team Providers Name Role Phone Unavailable Primary Care Provider Unavailable Reason for Visit Auth/Cert Specialty Diagnoses / Procedures Referred By Contact Refer red To Contact Diagnoses Calculus of bile duct without cholangitis or cholecystitis with obstruction Calculus of bile duct without cholangitis or cholecystitis with obstruction Procedures GA CHOLECYSTECTOMY W CHOLANGIOGR Gallbladder removal Referral ID Status Reason Start Date Expiration Date Visits Requ ested Visits Authorized [id number] 1 1 Encounter Details Date Type Department Care Team Description 08/14/2017 Surgery [facility] OR Alvin Mathur LAPAROSCOPIC [address] P, D.O. CHOLECYSTECTOMY WITH KRISTINE JOHNSON [address] attempted CHOLANGIOGRAM [id number] KRISTINE Roas [id number] Social History Tobacco Use Types Packs/Day Years [...] or relatives? How often do you attend episcopalian or jehovah's witness More than 4 time s per year 09/17/2021 services? Do you belong to any clubs or organizations Yes 09/17/2021 such as episcopalian groups, unions, fraternal or athletic groups, or [...] Comments Blood Pressure 167/66 08/14/2017 4:33 PM EXPERIMENTAL ASSEMBLER Pulse 87 08/14/2017 4:33 PM EXPERIMENTAL ASSEMBLER Temperature 37.5 ??C (99.5 ??F) 08/14/2017 4:33 PM EXPERIMENTAL ASSEMBLER Respiratory Rate 14 08/14/2017 4:33 PM EXPERIMENTAL ASSEMBLER Oxygen Saturation - - Inhaled Oxygen Concentration - - Weight 97.1 kg (214 lb 1.1 oz) 08/14/2017 4:33 PM EXPERIMENTAL ASSEMBLER Height 157.5 cm (5' 2) 08/14/2017 4:33 PM EXPERIMENTAL ASSEMBLER Body Mass Index 39.52 08/14/2017 4:33 PM EXPERIMENTAL ASSEMBLER documented in this encounter Discharge Summaries Alvin [...] Case IDs Date Procedure Surgeon Location Status [id number] 08/14/17 LAPAROSCOPIC CHOLECYSTECTOMY WITH attempted CHOLANGIOGRAM Alvin Mathur D.O. [facility] OR [facility] DISCHARGE DISPOSITION Home or Self Care [1] [...] tablet Commonly known as: Allergy Immunotherapy omega 3-jvk-rqx-fish oil 600 mg-216 mg- 324 mg-1,200 mg [...] THIS ADMISSION None CONDITION AT DISCHARGE good RIMENTAL ASSEMBLER documented in this encounter Discharge Instructions AttachmentsThe following attachments cannot be sent through Care Everywhere.Care of Your Surgical Drainage Tube (Lithuanian)documented in this encounter Medications at Time of [...] D3) 2,000 mouth daily. Unit capsule omega 9-rrh-qkj-fish oil Take 1 capsule by 0 10/1910/03/2021 [...] own drain for the next several days. RIMENTAL ASSEMBLER Nila Farooq M.D. - 08/15/2017 8:19 AM CST Anesthesia Post-Op Visit Patient: Damian Tolentino Anesthesia Post-Op Visit Postoperative day: 1 Follow-up type: inpatient Cardiovascular status: hemodynamic (HR & BP) acceptable Respiratory status: patent airway with spontaneous effort Oxygen requirements: room air Level of consciousness: awake Pain score: pain adequately controlled and /or at baseline Post Op nausea/vomiting: none RIMENTAL ASSEMBLER documented in this encounter Nursing Notes Monika [...] and demonstrated proper emptying of [place] drain RIMENTAL ASSEMBLER George Rico R.N. - 08/15/2017 2:15 PM [...] to discharge later today once Doctor rounds RIMENTAL ASSEMBLER Rupinder Muro R.N. - 08/15/2017 4:21 AM [...] pain control and used call light appropriately. RIMENTAL ASSEMBLER Senia Manrique R.N. - 08/14/2017 4:36 PM CST Goals: Patient will have adequate pain control throughout shift Identify possible barriers to meeting goals/advancing plan of care: Acute illness Stability of the patient: Moderately Unstable - Medium risk of patient condition declining or worsening End of Shift Summary:Patient has had adequate pain control throughout shift RIMENTAL ASSEMBLER documented in this encounter OR Notes Op Note - Alvin Mathur D.O. - 08/14/2017 7:13 PM CST FULL OP NOTE Procedure(s): LAPAROSCOPIC CHOLECYSTECTOMY WITH attempted CHOLANGIOGRAM Surgeon(s) and Role: * Alvin Mathur D.O. - Primary Etcher [employer]: Susan Bear L.P.N. Anesthesia Type: General Pre-Operative [...] in log * Alvin Mathur D.O. TPR RIMENTAL ASSEMBLER Brief Op Note - Alvin Mathur D.O. [...] implants in log * Alvin Mathur D.O. RIMENTAL ASSEMBLER documented in this encounter Plan of Treatment Scheduled Referrals Name Type Priority Associated Diagnoses Order S [facility] Surgery Outpatient Referral Routine Cholecystitis Expe cted: Post Op (clinic) 08/22/2017 (Approximate), Expires: 08/15/2020 documented as of this encounter Procedures Procedure Name Priority Date/Time Associated Comments Diagnosis HEPATIC FUNCTION Routine 08/15/2017 5:56 Results for PANEL, S AM EXPERIMENTAL ASSEMBLER this procedure are in the results section. CBC WITH Routine 08/15/2017 5:56 Results for DIFFERENTIAL, B AM EXPERIMENTAL ASSEMBLER this procedu re are in the results section. INCENTIVE SPIROMETRY Routine 08/15/2017 1:23 - RT/RN AM EXPERIMENTAL ASSEMBLER INCENTIVE SPIROMETRY Routine 08/15/2017 1:23 - RT/RN AM EXPERIMENTAL ASSEMBLER INCENTIVE SPIROMETRY Routine 08/15/2017 1:23 - RT/RN AM EXPERIMENTAL ASSEMBLER INCENTIVE SPIROMETRY Routine 08/15/2017 1:23 - RT/RN AM EXPERIMENTAL ASSEMBLER INCENTIVE SPIROMETRY Routine 08/15/2017 1:23 - RT/RN AM EXPERIMENTAL ASSEMBLER INCENTIVE SPIROMETRY Routine 08/15/2017 1:23 - RT/RN AM EXPERIMENTAL ASSEMBLER INCENTIVE SPIROMETRY Routine 08/15/2017 1:23 - RT/RN AM EXPERIMENTAL ASSEMBLER INCENTIVE SPIROMETRY Routine 08/15/2017 1:23 - RT/RN AM EXPERIMENTAL ASSEMBLER FL FLUORO LESS THAN 1 RAD - Routine 08/14/2017 8:00 Re sults for HOUR (most inpatients PM EXPERIMENTAL ASSEMBLER this proced ure and all are in the outpatients) results section. PATHOLOGY SERVICES Routine 08/14/2017 7:18 Cholecystitis Resul ts for PM EXPERIMENTAL ASSEMBLER this procedure are in the results section. LAPAROSCOPIC 08/14/2017 6:25 Cholecystitis CHOLECYSTECTOMY WITH PM EXPERIMENTAL ASSEMBLER CHOLANGIOGRAM documented in this encounter Results (ABNORMAL) Hepatic Function Panel (08/15/2017 5:56 AM EXPERIMENTAL ASSEMBLER) [facility] Method Time Signature Bilirubin, Total, S 0.8 <=1.2 08/15/2017 [facility] mg/dL 6:53 AM [facility] [place] [facility] Bilirubin, Direct, S 0.2 0.0 - 0.3 08/15/2017 [facility] mg/dL 6:53 AM [facility] Aspartate 76 (H) 8 - 43 08/15/2017 [facility] Aminotransferase U/L 6:53 AM [facility] (AST), S [facility] [employer] [facility] Alanine 81 (H) 7 - 45 08/15/2017 [facility] Aminotransferase U/L 6:53 AM [facility] (ALT), S [facility] [place] [facility] Alkaline 75 50 - 130 08/15/2017 [facility] Phosphatase, S U/L 6:53 AM [facility] Albumin, S 3.5 3.5 - 5.0 08/15/2017 [facility] g/dL 6:53 AM [facility] Protein, Total, S 6.2 (L) 6.3 - 7.9 08/15/2017 [facility] g/dL 6:53 AM [facility] Specimen Anatomical Collection Method Collection Time Receive d Time (Source) Location / / Volume Laterality Blood (Blood, 08/15/2017 5:56 AM 08/15/20 17 6:14 Venous) EXPERIMENTAL ASSEMBLER AM [facility] Alvin Mathur D.O. LAB BLOOD ADD-ON Performing Organization Address City/State/ZIP Code Phon e Number [facility] [address] [place] [address] [place] [facility] (ABNORMAL) CBC with Differential (08/15/2017 5:56 AM [facility] Method Time Signature Hemoglobin 12.4 11.6 - 08/15/2017 [facility] 15.0 g/dL 6:18 AM [facility] Hematocrit 36.9 35.5 - 08/15/2017 [facility] 44.9 % 6:18 AM [facility] Erythrocytes 4.20 3.92 - 08/15/2017 [facility] 5.13 6:18 AM [facility] x10(12)/L [facility] [employer] [facility] MCV 87.9 78.2 - 08/15/2017 [facility] 97.9 fL 6:18 AM [facility] RBC Distrib Width 13.4 12.2 - 08/15/2017 [facility] 16.1 % 6:18 AM [facility] Platelet Count 159 157 - 371 08/15/2017 [facility] x10(9)/L 6:18 AM [facility] Leukocytes 17.1 (H) 3.4 - 9.6 08/15/2017 [facility] x10(9)/L 6:18 AM [facility] [place] [facility] Neutrophils 15.33 (H) 1.56 - 08/15/2017 [facility] 6.45 6:18 AM EXPERIMENTAL ASSEMBLER HEALTH x10(9)/L [facility] [place] [facility] Lymphocytes 0.92 (L) 0.95 - 08/15/2017 [facility] 3.07 6:18 AM [facility] x10(9)/L SYSTEM- [place] [facility] Monocytes 0.78 0.26 - 08/15/2017 [facility] 0.81 6:18 AM EXPERIMENTAL ASSEMBLER HEALTH x10(9)/L SYSTEM- [place] [facility] Eosinophils 0.00 (L) 0.03 - 08/15/2017 [facility] 0.48 6:18 AM [facility] x10(9)/L SYSTEM- [place] [facility] Basophils 0.03 0.01 - 08/15/2017 [facility] 0.08 6:18 AM [facility] x10(9)/L SYSTEM- [place] [facility] Specimen Anatomical Collection Method Collection Time Receive d Time (Source) Location / / Volume Laterality Blood (Blood, 08/15/2017 5:56 AM 08/15/20 17 6:14 Venous) EXPERIMENTAL ASSEMBLER AM EXPERIMENTAL ASSEMBLER Alvin Mathur D.O. LAB BLOOD ADD-ON Performing Organization Address City/State/ZIP Code Phon e Number [facility] [address] [place] [address] [facility] [facility] [place] Fluoro Less Than 1 Hour (08/14/2017 8:00 PM EXPERIMENTAL ASSEMBLER) Specimen (Source) Anatomical Location Collection Method / Collectio n Time Received Time / Laterality Volume Narrative [id number] - 08/14/2017 8:20 PM EXPERIMENTAL ASSEMBLER This exam does not require a physician interpretation. Please check notes for clinical details. Alvin Mathur D.O. IMG FLUOROSCOPY PROCEDURES Performing Organization Address City/State/ZIP Code Phon e Number [id number] NA Pathology Services (08/14/2017 7:18 PM EXPERIMENTAL ASSEMBLER) Component Value Ref Test Analysis Performed At [facility] Range Method Time Signature PATHOLOGY Patient Name: DAMIAN TOLENTINO [facility] MR#: [id number] STEVE Submitting Physician: ALVIN MATHUR DO [id number] Specimen #[id number] Performing Lab: ??[facility] ? [address] [place] [id number] Source: Gallbladder and stones Clinical History/Pre-Op Cholecystitis [...] ? ?The mucosal wall measures 0.3 cm. ??Segmental Wall Installer sections are submitted in cassette A1. KG/ed ?? Diagnosis Gallbladder, cholecystectomy: ACUTE NECROTIZING CHOLECYSTITIS. Electronically Signed By SANTY GUERIN MD - 08/16/2017 ed/08/16/2017 Specimen (Source) Anatomical Collection Method Collection Time Re ceived Time Location / / Volume Laterality Tissue 08/14/2017 7:18 PM (Gallbladder) EXPERIMENTAL ASSEMBLER Alvin Mathur D.O. LAB SURG PATH ORDERABLES Performing Organization Address City/State/ZIP Code Phon e Number [facility] [address] [address] documented in this encounter Visit Diagnoses Diagnosis Cholecystitis - Primary Cholecystitis documented in this encounter Admitting Diagnoses Diagnosis Cholecystitis documented in this encounter Administered Medications Inactive Administered Medications - up to 3 most recent administrations Medication Order MAR Action Action Date Dose Rate Site acetaminophen tablet 1,000 mg Given 08/15/2017 6:00 PM EXPERIMENTAL ASSEMBLER 1,000 mg (for_TYLENOL) 1,000 mg, oral, Every 6 hours PRN, mild pain or score 1-3 of 10, Starting on Sun08/15/17 at 0123 Given 08/15/2017 12:34 PM EXPERIMENTAL ASSEMBLER 1,[address] tablet 81 mg Given 08/15/2017 8:12 AM EXPERIMENTAL ASSEMBLER 81 mg 81 mg, oral, Daily, First dose on Sun08/15/17 at 0900, Swallow whole. Do NOT crush, chew, or split tablet. calcium carbonate-vitamin D3 1,250 mg (500 Given 08/15 8:12 AM EXPERIMENTAL ASSEMBLER 1 tablet mg calcium)-200 unit per tablet 1 tablet 1 tablet, oral, Daily with breakfast, First dose on Sun08/15/17 at 0800, calcium carbonate/vitamin D 600 mg/400 units was interchanged for calcium carbonate/vitamin D3 (Same frequency) cholecalciferol tablet 2,000 Units Given 08/15/2017 8:12 AM EXPERIMENTAL ASSEMBLER 2,000 Units (for_VITAMIN D3) 2,000 Units, oral, Daily, First dose on Sun08/15/17 at 0900 heparin (porcine) Given 08/15/2017 5:17 AM EXPERIMENTAL ASSEMBLER 5,000 Units Left Upper Abdomen injection 5,000 Units 5,000 Units, subcutaneous, 3 times daily, First dose on Sun08/15/17 at 0530 HYDROmorphone injection 1 mg (for_DILAUD ID) Given 08/14/2017 4:07 PM EXPERIMENTAL ASSEMBLER 1 mg 1 mg, intravenous, Every 1 hour PRN, pain, Starting on Sun08/14/17 at 1550 ketorolac injection 15 mg (for_TORADOL) Given 08/15/2017 7:19 AM EXPERIMENTAL ASSEMBLER 15 mg 15 mg, intravenous, Every 6 [...] mL, bupivacaine PF Given 08/14/2017 9:00 PM EXPERIMENTAL ASSEMBLER 13 mL Abdominal Tissue 50 mL 100 mL injection As needed, Starting on Sun08/14/17 at 2100, Intra-Op microfibrillar collagen Given 08/14/2017 8:33 PM 1 application Abdominal Tissue hemostat powder EXPERIMENTAL ASSEMBLER (for_AVITENE FLOUR) As needed, Starting on Sun08/14/17 [...] mg per Given 08/15/2017 8:12 A M EXPERIMENTAL ASSEMBLER 1 tablet tablet 1 tablet (for_SENOKOT-S) 1 [...] injection 3 mL Given 08/15/2017 8:12 AM EXPERIMENTAL ASSEMBLER 3 mL 3 mL, intravenous, As needed, [...] Recently Administered Medications Times are shown in EXPERIMENTAL ASSEMBLER. Scheduled Medication Order 08/13/2017 08/14/2017 08/15/2017 aspirin [...] 1900 (Given - Provider: Kwan Whitley APRN, COMMAND AND CONTROL SYSTEMS INTEGRATOR, D.N.P.) 400 mg, intravenous, at 200 mL/hr, Admin ister over 60 Minutes, Once, On Sun08/14/17 at 1745, For 1 dose, Intra-Op, Preoperatively within 2 hours prior to surgical incision. premix bag, Drug Monitoring Program: Pharmacist to adjust medication order based on comorbities and indication., Indications: Prophylaxis, surgical ciprofloxacin in D5W IVPB 400 mg (for_CIPRO) (COMPLETED) 06 (New Bag - Provider: Rupinder Muro R.N.) [...] Schmidt R.N.)1800 (Given - Provider: Monika Loera RNaomiNNaomi) 1,000 mg, oral, Every 6 hours PRN, [...] (for_TORADOL) 0719 (Given - Provider: George Rico RNaomiNNaomi) 15 [...] bed) As needed, Starting on Sun08/14/17 at 203, Intra-Op NaCl 0.9% infusion 10-250 mL/hr, intravenous, [...]
--- OUTSIDE RECORDS SUMMARY | 2022-05-25 09:04 | XMS_ITS | Encounter Summary ---
:1955 Author Organization [facility] Address [address] [place] [address] Care Team Providers Name Role Phone Unavailable Primary Care Provider Unavailable Encounter Details Date Type Department Care Team Description 06/24/2019 Hospital Encounter Department of Irina Pham, [place] [facility] in [address] [id number] [phone] Social History Tobacco Use Types Packs/Day Years [...] or relatives? How often do you attend denominational or buddhism More than 4 time s per year 09/17/2021 services? Do you belong to any clubs or organizations Yes 09/17/2021 such as denominational groups, unions, fraternal or athletic groups, or [...] D3) 2,000 mouth daily. Unit capsule omega 0-nla-fuq-fish oil Take 1 capsule by 0 10/1910/03/2021 600 mg-216 mg- 324 mouth daily. mg-1,200 mg capsule,delayed release(DR/EC) documented as of this encounter Plan of Treatment Not on filedocumented as of this encounter Procedures Procedure Name Priority Date/Time Associated Comments Diagnosis US CAROTID RAD - Routine 06/24/2019 10:37 [place] Results fo r this BILATERAL (most inpatients AM TOP COATER procedure a re in and all the results outpatients) section. documented in this encounter Results US Carotid Bilateral (06/24/2019 10:37 AM TOP COATER) Anatomical Region Laterality Modality Head and Neck, Ultrasound RST LOS, Ultrasound ARZ LOS, Bilat eral Ultrasound Neuroradiology FLA LOS Specimen (Source) Anatomical Collection Method Collection Time Re ceived Time Location / / Volume Laterality 06/24/2019 10:41 AM TOP COATER Impressions 06/24/2019 10:44 AM TOP COATER Less than 50% stenosis of the right and left internal carotid arteries by velocity criteria. Narrative 06/24/2019 10:44 AM TOP COATER EXAM: US CAROTID BILATERAL Exam performed with [...] distal ICA in accordance with Nor th Swiss Symptomatic Carotid Endarterectomy Trial (NASCET). Procedure Note [...] distal ICA in accordance with Nor th Swiss Symptomatic Carotid Endarterectomy Trial (NASCET). IMPRESSION: Less than 50% stenosis of the right and left internal carotid arteries by velocity criteria. Irina HARP US PROCEDURES documented in this encounter Visit Diagnoses Diagnosis [place] documented in this encounter
--- OUTSIDE RECORDS SUMMARY | 2022-05-25 09:04 | XMS_ITS | Encounter Summary ---
:1955 Author Organization [facility] Address [address] [place] [address] Care Team Providers Name Role Phone Unavailable Primary Care Provider Unavailable Reason for Referral Outpatient (Routine) - Closed Specialty Diagnoses / Procedures Referred By Contact Refer red To Contact Emergency Medicine Diagnoses Colic Biliary Augie Berry M.D. [address] [address] Referral ID Status Reason Start Date Expiration Date Visits Requ ested Visits Authorized [id number] Closed 08/14/2017 02/10/2018 1 1 utpatient (Routine) - Closed Specialty Diagnoses / Procedures Referred By Contact Refer red To Contact Emergency Medicine Diagnoses Cholecystitis Shivam Samayoa M.D. [address] [address] Referral ID Status Reason Start Date Expiration Date Visits Requ ested Visits Authorized [id number] Closed 08/14/2017 02/10/2018 1 1 GE LEVER OPERATOR Reason for Visit Reason Comments Pain c/o pain across backalong di aphram and tenderness in upper abd. Auth/Cert Specialty Diagnoses / Procedures Referred By Contact Refer red To Contact Diagnoses Calculus of bile duct without cholangitis or cholecystitis with obstruction Calculus of bile duct without cholangitis or cholecystitis with obstruction Procedures OR CHOLECYSTECTOMY W CHOLANGIOGR Gallbladder removal Referral ID Status Reason Start Date Expiration Date Visits Requ ested Visits Authorized [id number] 1 1 Encounter Details Date Type Department Care Team Description 08/14/2017 Emergency [place] [facility] Shivam Samayoa, Cholec ystitis (Primary Dx); Department M.DNaomi Colic Biliary 701 [facility] 701 [facility] [place] [phone] Social History Tobacco Use Types Packs/Day [...] How often do you attend gnosticist or mosque More than 4 time s [...] Comments Blood Pressure 115/66 08/14/2017 1:15 PM DREDGE LEVER OPERATOR Pulse 90 08/14/2017 1:15 PM DREDGE LEVER OPERATOR Temperature 36.5 ??C (97.7 ??F) 08/14/2017 8:50 AM DREDGE LEVER OPERATOR Respiratory Rate 14 08/14/2017 10:11 AM DREDGE LEVER OPERATOR Oxygen Saturation 96% 08/14/2017 1:15 PM DREDGE LEVER OPERATOR Inhaled Oxygen Concentration - - Weight 97.8 kg (215 lb 9.8 oz) 08/14/2017 8:52 AM DREDGE LEVER OPERATOR Height 157.5 cm (5' 2) 08/14/2017 8:52 AM DREDGE LEVER OPERATOR Body Mass Index 39.44 08/14/2017 8:52 AM DREDGE LEVER OPERATOR documented in this encounter Discharge Instructions AttachmentsThe following attachments cannot be sent through Care Everywhere. Cholecystitis (Uzbek)documented in this encounter Medications at Time of [...] D3) 2,000 mouth daily. Unit capsule omega 0-lga-tvk-fish oil Take 1 capsule by 0 10/1910/03/2021 [...] and complete. Shivam Samayoa M.D. 08/14/17 1229 GE LEVER OPERATOR documented in this encounter Plan of [...] OR BILIARY DUCTS (Fast; most ED AM DREDGE LEVER OPERATOR procedure are in patients; some the results inpatients) section. HEPATIC FUNCTION STAT 08/14/2017 9:20 Results for this PANEL, S AM DREDGE LEVER OPERATOR procedure are i n the results section. CBC WITH STAT 08/14/2017 9:20 Results for this DIFFERENTIAL, B AM DREDGE LEVER OPERATOR procedure ar e in the results section. LIPASE, S/P STAT 08/14/2017 9:20 Results for this AM DREDGE LEVER OPERATOR procedure are i n the results section. BASIC METABOLIC STAT 08/14/2017 9:20 Results f or this PANEL, S/P AM DREDGE LEVER OPERATOR procedure are i n the results section. documented in this encounter Results US Gallbladder (08/14/2017 9:52 AM DREDGE LEVER OPERATOR) Anatomical Region Laterality Modality Abdomen N/A Ultrasound Specimen (Source) Anatomical Collection Method Collection Time Re ceived Time Location / / Volume Laterality 08/14/2017 9:58 AM DREDGE LEVER OPERATOR Impressions 08/14/2017 10:03 AM DREDGE LEVER OPERATOR IMPRESSION: Distended gallbladder with stones and sludge. Sonographic Saunders sign was unable to be accurately assesse d secondary to the patient having received pain medications. Exam is equiv ocal for cholecystitis. Consider surgical consultation as clinically flor[place] cated. Findings discussed on the phone on 08/14 at 10:[address] Samayoa. Narrative 08/14/2017 10:03 AM DREDGE LEVER OPERATOR EXAM: US GALLBLADDER COMPARISON: None FINDINGS: Gallbladder [...] PROCEDURES Hepatic Function Panel (08/14/2017 9:20 AM DREDGE LEVER OPERATOR) Patholo gist Method Time Signature Bilirubin, Total, S 0.6 <=1.2 08/14/2017 [facility] mg/dL 9:48 AM [facility] Bilirubin, Direct, S <0.2 0.0 - 0.3 08/14/2017 [facility] mg/dL 10:15 AM [facility] Aspartate 26 8 - 43 08/14/2017 [facility] Aminotransferase U/L 9:48 AM [facility] [[email or web address]] [employer] (AST), [facility] Alanine 32 7 - 45 08/14/2017 [facility] Aminotransferase U/L 9:48 AM [facility] Alkaline 106 50 - 130 08/14/2017 [facility] Phosphatase, S U/L 9:48 AM [facility] Albumin, S 4.4 3.5 - 5.0 08/14/2017 [facility] g/dL 9:48 AM [facility] Protein, Total, S 7.2 6.3 - 7.9 08/14/2017 [facility] g/dL 9:48 AM [facility] Specimen Anatomical Collection Method Collection Time Receive d Time (Source) Location / / Volume Laterality Blood (Blood, 08/14/2017 9:20 AM 08/14/20 17 9:25 Venous) DREDGE LEVER OPERATOR AM DREDGE LEVER OPERATOR Shivam Samayoa M.D. LAB BLOOD ADD-ON Performing Organization Address City/State/ZIP Code Phon e Number [facility] [address] [facility] [place] [address] [facility] Lipase (08/14/2017 9:20 AM DREDGE LEVER OPERATOR) P athologist Signature Lipase, P 27 13 - 60 U/L 08/14/2017 [facility] 9:48 AM [facility] Specimen Anatomical Collection Method Collection Time Receive d Time (Source) Location / / Volume Laterality Blood (Blood, 08/14/2017 9:20 AM 08/14/20 17 9:24 Venous) DREDGE LEVER OPERATOR AM [facility] [[email or web address]] Shivam Samayoa M.D. LAB BLOOD ADD-ON Performing Organization Address City/State/ZIP Code Phon e Number [facility] 701 [facility] [place] [address] [place] [facility] (ABNORMAL) BMP (Basic Metabolic Panel) (08/14/2017 9:20 AM [facility] [[email or web address]]) Analysis Performed At Patho logist Time Signature Potassium, P 3.6 3.6 - 5.2 08/14/2017 [facility] mmol/L 9:48 AM [facility] Sodium, P 137 135 - 145 08/14/2017 [facility] mmol/L 9:48 AM [facility] Chloride, P 99 98 - 107 08/14/2017 [facility] mmol/L 9:48 AM [facility] Bicarbonate, P 25 22 - 29 08/14/2017 [facility] mmol/L 9:48 AM [facility] Anion Gap, P 13 7 - 15 08/14/2017 [facility] 9:48 AM [facility] BUN (Blood Urea 10 6 - 21 08/14/2017 [facility] Nitrogen), P mg/dL 9:48 AM [facility] Creatinine 0.58 (L) 0.59 - 08/14/2017 [facility] 1.04 mg/dL 9:48 AM [facility] eGFR-Black/Afri >90 >=60 08/14/2017 [facility] can Angolan mL/min/BSA 9:48 AM [facility] Comment: ----ADDITIONAL INFORMATION---- Estimated GFR calculated using the 2009 CKD_EPI creatinine equation. eGFR Non-Black/ >90 >=60 mL/min/BSA 08/14/2017 9:48 AM [facility] Angolan [facility] Comment: ----ADDITIONAL INFORMATION---- Estimated GFR calculated using the 2009 CKD_EPI creatinine equation. Calcium, Total, P 8.7 (L) 8.9 - 10.1 mg/dL 08/14/2017 9 :48 AM [facility] Glucose, P 122 70 - 140 mg/dL 08/14/2017 9:48 AM [facility] [place] [facility] Specimen Anatomical Collection Method Collection Time Receive d Time (Source) Location / / Volume Laterality Blood (Blood, 08/14/2017 9:20 AM 08/14/20 17 9:24 Venous) DREDGE LEVER OPERATOR AM DREDGE LEVER OPERATOR Shivam Samayoa M.D. LAB BLOOD ADD-ON Performing Organization Address City/State/ZIP Code Phon e Number [facility] [address] [place] [address] [place] [facility] (ABNORMAL) CBC with Differential (08/14/2017 9:20 AM [facility] [[email or web address]]) [facility] Method Time Signature Hemoglobin 13.8 11.6 - 08/14/2017 [facility] 15.0 g/dL 9:27 AM [facility] [[email or web address]] [facility] Hematocrit 40.5 35.5 - 08/14/2017 [facility] 44.9 % 9:27 AM [facility] [[email or web address]] [facility] Erythrocytes 4.62 3.92 - 08/14/2017 [facility] 5.13 9:27 AM [facility] [[email or web address]] [employer] x10(12)/L [facility] MCV 87.7 78.2 - 08/14/2017 [facility] 97.9 fL 9:27 AM [facility] [[email or web address]] [facility] RBC Distrib Width 13.3 12.2 - 08/14/2017 [facility] 16.1 % 9:27 AM [facility] Platelet Count 188 157 - 371 08/14/2017 [facility] x10(9)/L 9:27 AM [facility] [[email or web address]] [facility] Leukocytes 12.7 (H) 3.4 - 9.6 08/14/2017 [facility] x10(9)/L 9:27 AM [facility] Neutrophils 10.79 (H) 1.56 - 08/14/2017 [facility] 6.45 9:27 AM [employer] x10(9)/L [facility] [employer] [facility] Lymphocytes 1.18 0.95 - 08/14/2017 [facility] 3.07 9:27 AM [employer] x10(9)/L [facility] [employer] [facility] Monocytes 0.63 0.26 - 08/14/2017 [facility] 0.81 9:27 AM DREDGE LEVER OPERATOR HEALTH x10(9)/L [facility] Eosinophils 0.03 0.03 - 08/14/2017 [facility] 0.48 9:27 AM DREDGE LEVER OPERATOR HEALTH x10(9)/L [facility] Basophils 0.03 0.01 - 08/14/2017 [facility] 0.08 9:27 AM DREDGE LEVER OPERATOR HEALTH x10(9)/L [facility] Specimen Anatomical Collection Method Collection Time Receive d Time (Source) Location / / Volume Laterality Blood (Blood, 08/14/2017 9:20 AM 08/14/20 17 9:25 Venous) DREDGE LEVER OPERATOR AM DREDGE LEVER OPERATOR Shivam Samayoa M.D. LAB BLOOD ADD-ON Performing Organization Address City/State/ZIP Code Phon e Number [facility] [address] [facility] [place] [address] [facility] documented in this encounter Visit Diagnoses Diagnosis Cholecystitis - Primary Colic Biliary documented in this encounter Administered Medications Inactive Administered Medications - up to 3 most recent administrations Medication Order MAR Action Action Date Dose Rate Site ciprofloxacin in D5W IVPB 400 New Bag 08/14/2017 12:15 PM 400 mg 200 mL/hr mg (for_CIPRO) DREDGE LEVER OPERATOR 400 mg, intravenous, at 200 mL/hr, Administer over 60 Minutes, Once, On Sun08/14/17 at 1110, For 1 dose, premix bag, Drug Monitoring Program: Pharmacist to adjust medication order based on comorbities and indication., Indications: Intra-abdominal infection, community acquired HYDROmorphone injection 0.5 mg (for_DILA UDID) Given 08/14/2017 1:24 PM DREDGE LEVER OPERATOR 0.5 mg 0.5 mg, intravenous, Every 15 min PRN, severe pain or score 7-10 of 10, Starting on Sun08/14/17 at 0908, For 4 doses Given 08/14/2017 11:26 AM DREDGE LEVER OPERATOR 0.5 mg Given 08/14/2017 9:17 AM DREDGE LEVER OPERATOR 0.5 mg metroNIDAZOLE in NaCl (iso-osm) New Bag 08/14/2017 11:40 AM CS T 500 mg 200 mL/hr IVPB 500 mg (for_FLAGYL) 500 mg, intravenous, at 200 mL/hr, Administer over 30 Minutes, Once, On Sun08/14/17 at 1110, For 1 dose, Indications: Intra-abdominal infection, community acquired NaCl 0.9 % bolus 1,000 mL New Bag 08/14/2017 9:18 AM DREDGE LEVER OPERATOR 1,000 mL 1,000 mL, intravenous, Once, On Sun08/14/17 at 0909, For 1 dose documented in this encounter Active and Recently Administered Medications Times are shown in DREDGE LEVER OPERATOR. Scheduled Medication Order 08/12/2017 08/13/2017 08/14/2017 ciprofloxacin [...] 0.5 mg (for_DILAUDID) 0917 (Given - Provider: Geogrette George R.N.)1126 (Given - Provider: Georgette George R.N.)1324 (Given - Provider: Georgette George R.N.) 0.5 mg, intravenous, Every 15 min PRN, s evere pain or score 7-10 of 10, Starting on Sun08/14/17 at 0908, For 4 doses documented in this encounter
--- OUTSIDE RECORDS SUMMARY | 2022-05-25 09:05 | XMS_ITS | Encounter Summary ---
:1955 Author Organization [facility] Address [address] [place] [address] Care Team Providers Name Role Phone Unavailable Primary Care Provider Unavailable Encounter Details Date Type Department Care Team Description 08/09/2012 Hospital Encounter [facility]X [facility] Elena Gilman, FABIANA, C.N.P., D. N.P. [address], [place] [phone] (Wo rk) Social History [...] How often do you attend zoroastrian or oriental orthodox More than 4 time [...] D.N.P., C.N.P. - 08/09/2012 8:36 AM CST [id number] CHIEF COMPLAINT/REASON FOR VISIT Multiple issues. HISTORY [...] tobacco usage. ALLERGIES Ceftin. CURRENT MEDICATIONS Tylenol gqwj-elx-loywtxp as directed on package as needed. Aspirin 81 mg by mouth daily. Ibuprofen [id number]-wwh-qlrpmxd as directed on package as needed. Melaleuca [...] and reactive to light and accommodation. OROPHARYNX: [place] and moist. TMs: Bilateral tympanic membranes are [...] Ventricular rate at 74 beats per minute, AK interval 156 ms, QRS duration 80 ms, [...] the patient, or at least doing an ncdg-bgw-hrdidsjEvlcrvjt extended release 1 tablet by mouth daily. [...] in which she states it was through [facility] in [place]. I did discuss the vaginal dilators with [...] DNP, FNP On: 08/12/2012 12:59 PM Source: [facility] MHSDOLBEYNONRADSYS Document Id: [id number] INVESTMENT/PORTFOLIO MANAGER documented in this encounter Miscellaneous Notes Miscellaneous - Ana De La Cruz D.N.P., C.N.P. - 08/09/2012 2:48 PM IT INVESTMENT/PORTFOLIO MANAGER Results Notification Document Contains Addenda Addendum by MADDIE AGOSTO LPN on 12 August 2012 09:38:33 IT INVESTMENT/PORTFOLIO MANAGER Copy of bone density sent to patient. From: ANA DE LA CRUZ DNP, FNP To: MADDIE AGOSTO LPN Sent: 08/09/2012 14:48:54 IT INVESTMENT/PORTFOLIO MANAGER ! Show up: 08/09/2012 20:48:54 [facility] Subject: Results Notification Actions: Note to Nurse Source: [facility] POWERCHART Document Id: [id number] Electronically signed by Lizeth [facility] Grocery Department Manager [id number] at 01/20/2017 3:57 PM CDT documented in this encounter Plan of Treatment Not on filedocumented as of this encounter Visit Diagnoses Not on filedocumented in this encounter
--- OUTSIDE RECORDS SUMMARY | 2022-05-25 09:05 | XMS_ITS | Encounter Summary ---
:1955 Author Organization [facility] Address [address] [place] [address] Care Team Providers Name Role Phone Unavailable [...] How often do you attend methodist or mandaeism More than 4 time s [...] Comments Blood Pressure 140/86 08/06/2012 10:18 AM FINANCIAL REPORTING ANALYST Pulse - - Temperature - - Respiratory [...] Carlos Lawton - 08/06/2012 10:11 AM CST [id number] HISTORY OF PRESENT ILLNESS This 57-year-old female [...] LAWTON PA-C On: 02/04/2013 08:18 AM Source: [facility] MHSDOLBEYNONRADSYS Document Id: [id number] documented in this encounter Miscellaneous Notes Miscellaneous - Carlos Lawton - 08/06/2012 4:08 PM CST Ambulatory Depart Summary [facility] [address] [address] Visit Information Name: COLLEEN TILLMAN [facility] Number: [id number] Visit Date: 08/06/2012 16:08:27 Attending Provider: CARLOS LAWTON PA-C Primary Care Provider: CHRISSY DE LA CRUZ DNP, COOK HELPER MEAT COLLEEN TILLMAN has been given the following [...] your provider for clarification. Additional Information: Source: [facility] POWERCHART Document Id: [id number] NCIAL REPORTING ANALYST Xincellxavier - Carlos Lawton - 08/06/2012 4:08 PM CST Ambulatory Patient Summary [facility] [address] [place] [address] Visit Information Name: COLLEEN TILLMAN [facility] Number: [id number] Current Date: 08/06/2012 16:08:28 Physicians Attending Provider: CARLOS LAWTON PA-C Primary Care Provider: CHRISSY DE LA CRUZ DNP, COOK HELPER MEAT Your Medications Here is a list of [...] for Pain / Fever Take with food [facility] Pres[place] (Melaluca vitamins) 1 packet Oral [...] Date Time Location Reason Provider 08/08/2012 08:15 [facility] Family Med ANNUAL PHYSICAL PAP? & ESTAB PCP 08/09/2012 08:00 CAM PT/OT Edgardo Gurrola 09/03/2012 14:30 [facility] Follow up Carlos Lawton PA-C Your Goals/Additional instructions: Source: [facility] POWERCHART Document Id: [id number] NCIAL REPORTING ANALYST Miscellaneous - Rose Ziegler R.N. - 08/06/2012 10:18 AM CST Adult Branch Specialist Intake/History Adult Branch Specialist Intake/History Entered On: 08/06/2012 10:23 FINANCIAL REPORTING ANALYST Performed On: 08/06/2012 10:18 FINANCIAL REPORTING ANALYST by ROSE ZIEGLER furnace liner Chief Complaint : f/u left shoulder, humerus fx, doing well Temperature Core : 37.0C(Converted to: 98.6DegF) Systolic Blood Pressure : 140mmHg Diastolic Blood Pressure : 86mmHg NIBP Mean : 104mmHg BP Location : Left upper extremity Blood Pressure Cuff Size : Large ROSE ZIEGLER RN - 08/06/2012 10:18 FINANCIAL REPORTING ANALYST General Info Information Given By : Patient Preferred Communication Mode : Verbal Languages : Kazakh ROSE ZIEGLER RN - 08/06/2012 10:18 FINANCIAL REPORTING ANALYST Subjective Pain Symptoms : Yes ROSE ZIEGLER RN - 08/06/2012 10:18 FINANCIAL REPORTING ANALYST Pain Pain Assessment Grid Pain 1 Location : Shoulder Laterality : Left Time Pattern : Chronic, Intermittent ROSE ZIEGLER RN - 08/06/2012 10:18 FINANCIAL REPORTING ANALYST Dependent Habits Tobacco Use/Currently Using : No Exposure to Tobacco Smoke : Care provider denies smoking in home Smoking Status : Never smoker ROSE ZIEGLER RN - 08/06/2012 10:18 FINANCIAL REPORTING ANALYST Tobacco Use Grid Last Use : never ROSE ZIEGLER RN - 08/06/2012 10:18 FINANCIAL REPORTING ANALYST Caffeine Use Grid Caffeine Use : None ROSE ZIEGLER RN - 08/06/2012 10:18 FINANCIAL REPORTING ANALYST Recreational Drug Use Grid Drug Use : None ROSE ZIEGLER RN - 08/06/2012 10:18 FINANCIAL REPORTING ANALYST Allergy Allergies (Active) Ceftin Estimated Onset Date: Unspecified ; Reactions: hives ; Created By: MADDIE AGOSTO LPN; Reaction Status: Active ; Category: Drug ; Substance: Ceftin ; Type: Allergy ; Updated By: MADDIE AGOSTO LPN; Reviewed Date: 08/06/2012 10:17 FINANCIAL REPORTING ANALYST Source: [facility] POWERCHART Document Id: [id number] NCIAL REPORTING ANALYST documented in this encounter Plan of Treatment Not on filedocumented as of this encounter Visit Diagnoses Not on filedocumented in this encounter
--- OUTSIDE RECORDS SUMMARY | 2022-05-25 09:05 | XMS_ITS | Encounter Summary ---
:1955 Author Organization [facility] Address [address] [place] [address] Care Team Providers Name Role Phone Unavailable Primary Care Provider Unavailable Encounter Details Date Type Department Care Team Description 03/04/2013 Hospital Encounter HX [facility] Ana Felix D.P.M. [address] [place] [phone] (Wo rk) Social History Tobacco Use [...] How often do you attend islam or sikhism More than 4 time s [...] Provider Ser - 03/04/2013 12:00 AM CDT [id number] Please call patient at [phone] concerning Source: [facility] [email or web address] Document Id: [id number] documented in this encounter Plan of Treatment Not on filedocumented as of this encounter Visit Diagnoses Not on filedocumented in this encounter
--- OUTSIDE RECORDS SUMMARY | 2022-05-25 09:05 | XMS_ITS | Encounter Summary ---
:1955 Author Organization [facility] Address [address] [place] [address] Care Team Providers Name Role Phone Unavailable Primary Care Provider Unavailable Encounter Details Date Type Department Care Team Description 06/28/2012 Hospital Encounter HX NO MAPPING Gilma Gonzales M.D. [address] [place] [phone] (Wo rk) Social History Tobacco [...] or relatives? How often do you attend congregation or presybeterian More than 4 time s per year 09/17/2021 services? Do you belong to any clubs or organizations Yes 09/17/2021 such as congregation groups, unions, fraternal or athletic groups, or [...]
--- OUTSIDE RECORDS SUMMARY | 2022-05-25 09:05 | XMS_ITS | Encounter Summary ---
:1955 Author Organization [facility] Address [address] [place] [address] Care Team Providers Name Role Phone Unavailable [...] How often do you attend rastafarian or taoist More than 4 time s [...] Comments Blood Pressure 116/70 10/08/2012 7:58 AM DISPLAY SCREEN FABRICATOR Pulse 80 10/08/2012 7:58 AM DISPLAY SCREEN FABRICATOR Temperature - - Respiratory Rate 16 10/08/2012 7:58 AM DISPLAY SCREEN FABRICATOR Oxygen Saturation - - Inhaled Oxygen Concentration [...] Carlos Lawton - 10/08/2012 7:52 AM CST [id number] CHIEF COMPLAINT/REASON FOR VISIT Ms. Tillman is [...] stable and solid. Carlos Lawton P.A.-C./carlene DOCID: [id number] Electronically Signed By: CARLOS LAWTON PA-C On: 10/22/2012 02:41 PM Source: [facility] MHSDOLBEYNONRADSYS Document Id: [id number] LAY SCREEN FABRICATOR documented in this encounter Miscellaneous Notes Miscellaneous - Carlos Lawton - 10/08/2012 12:13 PM CST Ambulatory Patient Summary [address] [address] Visit Information Name: COLLEEN TILLMAN [facility] Number: [id number] Current Date: 10/08/2012 12:13:57 Physicians Attending Provider: CARLOS LAWTON PA-C Primary Care Provider: CHRISSY DE LA CRUZ DNP, SAFETY OFFICER Your Medications Here is a list of [...] No Appointments found Your Goals/Additional instructions: Source: [facility] POWERCHART Document Id: [id number] LAY SCREEN FABRICATOR Miscellaneous - Carlos Lawton - 10/08/2012 12:13 PM CST Ambulatory Depart Summary [facility] [address] [address] Visit Information Name: GINOJEROD COLLEEN L CLARY [facility] Number: [id number] Visit Date: 10/08/2012 12:13:56 Attending Provider: CARLOS LAWTON PA-C Primary Care Provider: CHRISSY DE LA CRUZ DNP, SAFETY OFFICER COLLEEN TILLMANUSON has been given the following [...] your provider for clarification. Additional Information: Source: [facility] POWERCHART Document Id: [id number] LAY SCREEN FABRICATOR Miscellaneous - Rose Ziegler R.N. - 10/08/2012 7:58 AM CST Adult Income Tax Consultant Intake/History Adult Income Tax Consultant Intake/History Entered On: 10/08/2012 8:03 DISPLAY SCREEN FABRICATOR Performed On: 10/08/2012 7:58 DISPLAY SCREEN FABRICATOR by ROSE ZIEGLER hotel attendant Chief Complaint : f/u lt humerus fx, [...] 98% ROSE ZIEGLER RN - 10/08/2012 7:58 DISPLAY SCREEN FABRICATOR General Info Information Given By : Patient Preferred Communication Mode : Verbal Languages : Swiss ROSE ZIEGLER RN - 10/08/2012 7:58 DISPLAY SCREEN FABRICATOR Subjective Pain Symptoms : No ROSE ZIEGLER RN - 10/08/2012 7:58 DISPLAY SCREEN FABRICATOR Dependent Habits Tobacco Use/Currently Using : No Exposure to Tobacco Smoke : Care provider denies smoking in home Smoking Status : Never smoker ROSE ZIEGLER RN - 10/08/2012 7:58 DISPLAY SCREEN FABRICATOR Tobacco Use Grid Type : Cigarettes Last Use : never ROSE ZIEGLER RN - 10/08/2012 7:58 DISPLAY SCREEN FABRICATOR Caffeine Use Grid Caffeine Use : None ROSE ZIEGLER RN - 10/08/2012 7:58 DISPLAY SCREEN FABRICATOR Recreational Drug Use Grid Drug Use : None ROSE ZIEGLER RN - 10/08/2012 7:58 DISPLAY SCREEN FABRICATOR Allergy Allergies (Active) Ceftin Estimated Onset Date: Unspecified ; Reactions: hives ; Created By: MADDIE AGOSTO LPN; Reaction Status: Active ; Category: Drug ; Substance: Ceftin ; Type: Allergy ; Updated By: MADDIE AGOSTO LPN; Reviewed Date: 10/08/2012 7:58 DISPLAY SCREEN FABRICATOR Source: [facility] POWERCHART Document Id: [id number] LAY SCREEN FABRICATOR documented in this encounter Plan of Treatment Not on filedocumented as of this encounter Visit Diagnoses Not on filedocumented in this encounter
--- OUTSIDE RECORDS SUMMARY | 2022-05-25 09:05 | XMS_ITS | Encounter Summary ---
:1955 Author Organization [facility] Address [address] [place] [address] Care Team Providers Name Role Phone Unavailable Primary Care Provider Unavailable Encounter Details Date Type Department Care Team Description 01/29/2013 Hospital Encounter HX NO MAPPING Yulissa Finn APRN, C.N.P. [address] [phone] (Wo rk) Social History Tobacco Use [...] How often do you attend worship or lutheran More than 4 time s [...]
--- OUTSIDE RECORDS SUMMARY | 2022-05-25 09:05 | XMS_ITS | Encounter Summary ---
:1955 Author Organization [facility] Address [address] [place] [address] Care Team Providers Name Role Phone Unavailable [...] How often do you attend orthodoxy or restorationist More than 4 time s [...] Comments Blood Pressure 136/78 07/16/2012 3:41 PM SERVICE WORKER HELPER Pulse 88 07/16/2012 3:41 PM SERVICE WORKER HELPER Temperature - - Respiratory Rate 16 07/16/2012 3:41 PM SERVICE WORKER HELPER Oxygen Saturation - - Inhaled Oxygen [...] Carlos Lawton - 07/16/2012 3:36 PM CST [id number] IMPRESSION/REPORT/PLAN Ms. Tillman is a 57-year-old female [...] LAWTON PA-C On: 08/06/2012 02:15 PM Source: [facility] MHSDOLBEYNRYLEYRADSYS Document Id: [id number] ICE WORKER HELPER documented in this encounter Miscellaneous Notes Miscellaneous - Carlos Lawton - 07/16/2012 5:06 PM CST Ambulatory Depart Summary [facility] [address] [place] [address] Visit Information Name: LAYNESOLANGECOLLEEN [facility] Number: [id number] Visit Date: 07/16/2012 17:06:53 Attending [...] your provider for clarification. Additional Information: Source: [facility] POWERCHART Document Id: [id number] ICE WORKER HELPER Miscellaneous - Carlos Lawton - 07/16/2012 5:06 PM CST Ambulatory Patient Summary [address] [id number] Visit Information Name: COLLEEN TILLMAN [facility] Number: [id number] Current Date: 07/16/2012 17:06:54 Physicians [...] Date Time Location Reason Provider 07/25/2012 07:45 [facility] PT/OT LEFT proximal humerus Fx, comminuted and mildly displaced. Begin GENTLE PROM for weeks 3-4 out from Fx, then gentle AAROM wks 4- 5, progress from there. Thanks. Edgardo Vincent 08/06/2012 10:15 [facility] Follow up on Lt shoulder Carlos Lawton PA-C Your Goals/Additional instructions: Source: [facility] POWERCHART Document Id: [id number] ICE WORKER HELPER Miscellaneous - Rossy Ziegler R.N. - 07/16/2012 3:41 PM CST Adult Truss Builder Intake/History Adult Truss Builder Intake/History Entered On: 07/16/2012 15:46 SERVICE WORKER HELPER Performed On: 07/16/2012 15:41 SERVICE WORKER HELPER by ROSSY ZIEGLER tailer in Chief Complaint : f/u lt shoulder fx Temperature Core : 36.6C(Converted to: 97.9DegF) Peripheral Pulse Rate : 88/min Respiratory Rate : 16/min Heart Rhythm : Regular Systolic Blood Pressure : 136mmHg Diastolic Blood Pressure : 78mmHg NIBP Mean : 97mmHg BP Location : Right upper extremity Blood Pressure Cuff Size : Large ROSSY ZIEGLER RN - 07/16/2012 15:41 SERVICE WORKER HELPER General Info Information Given By : Patient Preferred Communication Mode : Verbal Languages : Korean ROSSY ZIEGLER RN - 07/16/2012 15:41 SERVICE WORKER HELPER Subjective Pain Symptoms : Yes ROSSY ZIEGLER RN - 07/16/2012 15:41 SERVICE WORKER HELPER Pain Pain Assessment Grid Pain 1 Location : Shoulder Laterality : Left Time Pattern : Chronic, Intermittent ROSSY ZIEGLER RN - 07/16/2012 15:41 SERVICE WORKER HELPER Dependent Habits Tobacco Use/Currently Using : No Exposure to Tobacco Smoke : Care provider denies smoking in home Smoking Status : Never smoker ROSSY ZIEGLER RN - 07/16/2012 15:41 SERVICE WORKER HELPER Tobacco Use Grid Last Use : never ROSSY ZIEGLER RN - 07/16/2012 15:41 SERVICE WORKER HELPER Caffeine Use Grid Caffeine Use : None ROSSY ZIEGLER RN - 07/16/2012 15:41 SERVICE WORKER HELPER Recreational Drug Use Grid Drug Use : None ROSSY ZIEGLER RN - 07/16/2012 15:41 SERVICE WORKER HELPER Allergy Allergies (Active) Ceftin Estimated Onset Date: Unspecified ; Reactions: hives ; Created By: MADDIE AGOSTO LPN; Reaction Status: Active ; Category: Drug ; Substance: Ceftin ; Type: Allergy ; Updated By: MADDIE AGOSTO LPN; Reviewed Date: 07/16/2012 15:39 SERVICE WORKER HELPER Source: [facility] Et3arraf Document Id: [id number] ICE WORKER HELPER documented in this encounter Plan of Treatment Not on filedocumented as of this encounter Visit Diagnoses Not on filedocumented in this encounter
--- OUTSIDE RECORDS SUMMARY | 2022-05-25 09:05 | XMS_ITS | Encounter Summary ---
:1955 Author Organization [facility] Address [address] [place] [address] Care Team Providers Name Role Phone Unavailable [...] How often do you attend methodist or adventism More than 4 time s [...]
--- OUTSIDE RECORDS SUMMARY | 2022-05-25 09:05 | XMS_ITS | Encounter Summary ---
:1955 Author Organization [facility] Address [address] [place] [address] Care Team Providers Name Role Phone Unavailable Primary Care Provider Unavailable Encounter Details Date Type Department Care Team Description 07/25/2011 Hospital Encounter HX [facility] Ana Felix D.P.M. [address] [place] [phone] (Wo rk) Social History Tobacco Use [...] How often do you attend temple or sikhism More than 4 time s [...] Saucedo, D.P.M. - 07/25/2011 9:15 AM CST [id number] No visit. Contact information for Sebastián Saenz given. Source: [facility] RWHXTRANSXRTFSYS Document Id: [id number] Electronically signed by Conversion, [facility] Tricot Knitting Machine Operator [id number] at 01/21/2017 2:34 AM CDT documented in this encounter Plan of Treatment Not on filedocumented as of this encounter Visit Diagnoses Not on filedocumented in this encounter
--- OUTSIDE RECORDS SUMMARY | 2022-05-25 09:05 | XMS_ITS | Encounter Summary ---
:1955 Author Organization [facility] Address [address] [place] [address] Care Team Providers Name Role Phone Unavailable Primary Care Provider Unavailable Encounter Details Date Type Department Care Team Description 06/29/2012 Hospital Encounter HX [facility] Trev Beach III, M.D. [address] [place] [phone] (Wo rk) Social History Tobacco Use [...] How often do you attend religious or gnosticism More than 4 time s [...] Comments Blood Pressure 108/60 06/29/2012 10:24 AM LOBSTER CATCHER Pulse 76 06/29/2012 10:24 AM LOBSTER CATCHER Temperature - - Respiratory Rate 18 06/29/2012 10:24 AM LOBSTER CATCHER Oxygen Saturation - - Inhaled Oxygen Concentration [...] Peñaloza M.D. - 06/29/2012 10:05 AM CST [id number] CHIEF COMPLAINT/REASON FOR VISIT Ms. Tillman is [...] III, MD On: 07/12/2012 05:21 PM [facility] Document Id: [id number] TER CATCHER documented in this encounter Miscellaneous Notes Miscellaneous - Charlie Peñaloza M.D. - 06/29/2012 11:21 AM CST Ambulatory Depart Summary [address] [address] Visit Information Name: COLLEEN TILLMAN Visit Date: [...] your provider for clarification. Additional Information: Source: [facility] POWERCHART Document Id: [id number] TER CATCHER Miscellaneous - Charlie Peñaloza M.D. - 06/29/2012 11:21 AM CST Ambulatory Patient Summary [address] [address] Visit Information Name: COLLEEN TILLMAN Current Date: [...] once a day as needed for pain [facility] Prescription (Melaluca vitamins) 1 [...] Date Time Location Reason Provider 07/01/2012 09:00 [facility] Family Med stitches removed Charlie Peñaloza MD 07/05/2012 08:30 [facility] follow up fracture Donavon REED, Cayetano Vela Your Goals/Additional instructions: Source: [facility] POWERCHART Document Id: [id number] TER CATCHER Miscellaneous - Cliff Griffiths L.P.N. - 06/29/2012 10:24 AM CST Adult Vehicle Care Specialist Intake/History Adult Vehicle Care Specialist Intake/History Entered On: 06/29/2012 10:29 LOBSTER CATCHER Performed On: 06/29/2012 10:24 LOBSTER CATCHER by CLIFF GRIFFITHS LPN Intake Chief Complaint [...] Source : Other: declined CLIFF GRIFFITHS [facility] - 06/29/2012 10:24 LOBSTER CATCHER Subjective Pain Symptoms : Yes CLIFF GRIFFITHS [facility] - 06/29/2012 10:24 LOBSTER CATCHER Pain Pain Assessment Grid Pain 1 Location : Shoulder Laterality : Left Intensity : 2 CLIFF GRIFFITHS [facility] - 06/29/2012 10:24 LOBSTER CATCHER Dependent Habits Tobacco Use/Currently Using : No Exposure to Tobacco Smoke : Care provider denies smoking in home Smoking Status : Never smoker CLIFF GRIFFITHS [facility] - 06/29/2012 10:24 LOBSTER CATCHER Tobacco Use Grid Last Use : never CLIFF GRIFFITHS LPN - 06/29/2012 10:24 LOBSTER CATCHER Alcohol Use : No CLIFF GRIFFITHS [facility] - 06/29/2012 10:24 LOBSTER CATCHER Caffeine Use Grid Caffeine Use : None CLIFF GRIFFITHS [facility] - 06/29/2012 10:24 LOBSTER CATCHER Recreational Drug Use Grid Drug Use : None CLIFF GRIFFITHS LPN 06/29/2012 10:24 LOBSTER CATCHER Allergy Allergies (Active) Ceftin Estimated Onset Date: Unspecified ; Reactions: hives ; Created By: MADDIE AGOSTO LPN; Reaction Status: Active ; Category: Drug ; Substance: Ceftin ; Type: Allergy ; Updated By: MADDIE AGOSTO LPN; Reviewed Date: 06/28/2012 10:44 LOBSTER CATCHER Source: [facility] Habit LabsCHART Document Id: [id number] TER CATCHER documented in this encounter Plan of Treatment Not on filedocumented as of this encounter Visit Diagnoses Not on filedocumented in this encounter
--- OUTSIDE RECORDS SUMMARY | 2022-05-25 09:05 | XMS_ITS | Encounter Summary ---
:1955 Author Organization [facility] Address [address] [place] [address] Care Team Providers Name Role Phone Unavailable Primary Care Provider Unavailable Encounter Details Date Type Department Care Team Description 11/25/2015 Hospital Encounter HX [facility] Annemarie Basurto M.D. [address] [place], [place] [phone] (Wo rk) Social History [...] How often do you attend islam or mu-ism More than 4 time s [...] daily. mg(1,250mg) -125 unit per tablet omega 0-fmw-jyv-fish oil Take 1 capsule by 0 10/1910/03/2021 [...] ESQUIVEL MD On: 11/25/2015 12:40 PM Source: [facility] POWERCHART Document Id: [id number] Duran Esquivel M.D. - 11/25/2015 10:31 AM CDT [id number] Patient presents today with a recent onset [...] ESQUIVEL MD On: 12/05/2015 06:25 PM Source: [facility] MHSDOLBEYNONRADSYS Document Id: [id number] documented in this encounter Miscellaneous Notes Miscellaneous - Sabra Cespedes, [facility] - 11/25/2015 10:54 AM CDT Adult Geography Professor Intake/History Adult Geography Professor Intake/History Entered On: 11/25/2015 10:55 CDT Performed On: 11/25/2015 10:54 CDT by SABRA CESPEDES Intake Chief Complaint : floaters and flashes in Left eye for 2-3 days Height : 156 cm(Converted to: 5 ft 1 inch(es), 61 inch(es)) SABRA CESPEDES - 11/25/2015 10:54 CDT General Info Information Given By : Patient Languages : Kenyan Is Patient Female and 13-50 no hysterectomy [...] SABRA CESPEDES - 11/25/2015 10:54 CDT Source: [facility] MenuSpring Document Id: [id number]!23 documented in this encounter Plan of Treatment Not on filedocumented as of this encounter Visit Diagnoses Not on filedocumented in this encounter
--- OUTSIDE RECORDS SUMMARY | 2022-05-25 09:05 | XMS_ITS | Encounter Summary ---
:1955 Author Organization [facility] Address [address] [place] [address] Care Team Providers Name Role Phone Unavailable [...] How often do you attend scientology or pentecostal More than 4 time s [...]
--- OUTSIDE RECORDS SUMMARY | 2022-05-25 09:05 | XMS_ITS | Encounter Summary ---
:1955 Author Organization [facility] Address [address] [place] [address] Care Team Providers Name Role Phone Unavailable [...] How often do you attend buddhist or methodist More than 4 time s [...] Comments Blood Pressure 128/62 09/03/2012 2:40 PM DROSSER Pulse - - Temperature - - Respiratory Rate 20 09/03/2012 2:40 PM DROSSER Oxygen Saturation - - Inhaled Oxygen Concentration [...] Carlos Lawton - 09/03/2012 2:33 PM CST [id number] HISTORY OF PRESENT ILLNESS This pleasant 57-year-old [...] LAWTON PA-C On: 09/17/2012 02:53 PM Source: [facility] MHSDOLBEYNONRADSYS Document Id: [id number] SER documented in this encounter Miscellaneous Notes Miscellaneous - Carlos Lawton - 09/03/2012 4:30 PM CST Ambulatory Patient Summary [address] [address] Visit Information Name: COLLEEN TILLMAN [facility] Number: [id number] Current Date: 09/03/2012 16:30:07 Physicians Attending Provider: CARLOS LAWTON PA-C Primary Care Provider: CHRISSY DE LA CRUZ [facility], ENERGY CONSERVATION REPRESENTATIVE Your Medications Here is a list of [...] Carlos Lawton PA-C Your Goals/Additional instructions: Source: [facility] POWERCHART Document Id: [id number] SER Miscellaneous - Carlos Lawton - 09/03/2012 4:30 PM CST Ambulatory Depart Summary [place] [facility] [address] [address] Visit Information Name: COLLEEN TILLMAN [facility] Number: [id number] Visit Date: 09/03/2012 16:30:07 Attending Provider: CARLOS LAWTON PA-C Primary Care Provider: CHRISSY DE LA CRUZ DNP, ENERGY CONSERVATION REPRESENTATIVE COLLEEN TILLMAN has been given the following [...] your provider for clarification. Additional Information: Source: [facility] POWERCHART Document Id: [id number] SER Miscellaneous - Tung De Jesus R.N. - 09/03/2012 2:40 PM DROSSER Adult Stoneworking Belt Sander Intake/History Adult Stoneworking Belt Sander Intake/History Entered On: 09/03/2012 14:43 DROSSER Performed On: 09/03/2012 14:40 DROSSER by TUNG DE JESUS grommet worker Chief Complaint : Here for follow up of left proximal humerus fracture. She is here to have her range of motion checked. Temperature Core : 36.5C(Converted to: 97.7DegF) Respiratory Rate : 20/min Systolic Blood Pressure : 128mmHg Diastolic Blood Pressure : 62mmHg NIBP Mean : 84mmHg TUNG DE JESUS RN - 09/03/2012 14:40 DROSSER General Info Information Given By : Patient Preferred Communication Mode : Verbal Languages : Slovenian TUNG DE JESUS RN - 09/03/2012 14:40 DROSSER Subjective Pain Symptoms : No TUNG DE JESUS RN - 09/03/2012 14:40 DROSSER Dependent Habits Tobacco Use/Currently Using : No Tobacco Use/Last 12 months : No Exposure to Tobacco Smoke : Care provider denies smoking in home Smoking Status : Never smoker TUNG DE JESUS RN - 09/03/2012 14:40 DROSSER Tobacco Use Grid Type : Cigarettes Last Use : never TUNG DE JESUS RN - 09/03/2012 14:40 DROSSER Caffeine Use Grid Caffeine Use : None TUNG DE JESUS RN - 09/03/2012 14:40 DROSSER Recreational Drug Use Grid Drug Use : None TUNG DE JESUS RN - 09/03/2012 14:40 DROSSER Allergy Allergies (Active) Ceftin Estimated Onset Date: Unspecified ; Reactions: hives ; Created By: MADDIE AGOSTO LPN; Reaction Status: Active ; Category: Drug ; Substance: Ceftin ; Type: Allergy ; Updated By: MADDIE AGOSTO LPN; Reviewed Date: 09/03/2012 14:37 DROSSER Source: [facility] POWERCHART Document Id: [id number] SER documented in this encounter Plan of Treatment Not on filedocumented as of this encounter Visit Diagnoses Not on filedocumented in this encounter
--- OUTSIDE RECORDS SUMMARY | 2022-05-25 09:05 | XMS_ITS | Encounter Summary ---
:1955 Author Organization [facility] Address [address] [place] [address] Care Team Providers Name Role Phone Unavailable [...]
--- OUTSIDE RECORDS SUMMARY | 2022-05-25 09:05 | XMS_ITS | Encounter Summary ---
:1955 Author Organization [facility] Address [address] [place] [address] Care Team Providers Name Role Phone Unavailable Primary Care Provider Unavailable Encounter Details Date Type Department Care Team Description 01/28/2013 Hospital Encounter HX [facility] Yulissa Ruffin APRN, C.N.P. [address] [place], [place] [phone] (Wo rk) Social History [...] How often do you attend episcopalian or protestant More than 4 time s [...]
--- OUTSIDE RECORDS SUMMARY | 2022-05-25 09:05 | XMS_ITS | Encounter Summary ---
:1955 Author Organization [facility] Address [address] [place] [address] Care Team Providers Name Role Phone Unavailable Primary Care Provider Unavailable Encounter Details Date Type Department Care Team Description 06/27/2012 Hospital Encounter HX [facility] Trev Beach III, M.D. [address] [place] [phone] (Wo rk) Social History Tobacco Use [...] How often do you attend worship or moravian More than 4 time s [...] Comments Blood Pressure 124/72 06/27/2012 1:11 PM FISHER Pulse 86 06/27/2012 1:11 PM FISHER Temperature - - Respiratory Rate 16 06/27/2012 1:11 PM FISHER Oxygen Saturation - - Inhaled Oxygen Concentration [...] Peñaloza M.D. - 06/27/2012 12:58 PM CST [id number] CHIEF COMPLAINT/REASON FOR VISIT Recheck chin. HISTORY OF PRESENT ILLNESS Ms. Tillman is a 57-year-old white female who fell and split her chin while at work at [employer]. There is quite a large laceration that [...] III, MD On: 07/30/2012 08:36 AM Source: [facility] MHSDOLBEYNONRADSYS Document Id: [id number] ER documented in this encounter Miscellaneous Notes Miscellaneous - Charlie Peñaloza M.D. - 06/27/2012 3:20 PM CST Ambulatory Depart Summary [address] [address] Visit Information Name: COLLEEN TILLMAN Visit Date: [...] your provider for clarification. Additional Information: Source: [facility] YooDeal Document Id: [id number] ENCE Vazquezaneous - Charlie Peñaloza M.D. - 06/27/2012 3:20 PM CST Ambulatory Patient Summary [address] [address] Visit Information Name: COLLEEN TILLMAN Current Date: [...] No Appointments found Your Goals/Additional instructions: Source: [facility] GudogCHART Document Id: [id number] ER Miscellaneous - Maddie Strong L.P.N. - 06/27/2012 1:11 PM CST Adult Per Diem Physical Therapist Intake/History Adult Per Diem Physical Therapist Intake/History Entered On: 06/27/2012 13:13 FISHER Performed On: 06/27/2012 13:11 FISHER by MADDIE STRONG LPN Intake Chief Complaint [...] Large MADDIE STRONG LPN - 06/27/2012 13:11 FISHER Subjective Pain Symptoms : Yes MADDIE STRONG LPN - 06/27/2012 13:11 FISHER Pain Pain Assessment Grid Pain 1 Location : Shoulder Laterality : Left Intensity : 7 Time Pattern : Acute Onset : Sudden Quality : Aching, Other: spasms Pain Radiation : No Aggravating Factors : None Alleviating Factors : None Associated Symptoms : None Interventions : Cold MADDIE STRONG LPN - 06/27/2012 13:11 FISHER Dependent Habits Tobacco Use/Currently Using : No Tobacco Use/Last 12 months : No Tobacco Use/Advised to Quit : No Exposure to Tobacco Smoke : Care provider denies smoking in home Smoking Status : Never smoker Alcohol Use : No MADDIE STRONG LPN - 06/27/2012 13:11 FISHER Caffeine Use Grid Caffeine Use : None MADDIE STRONG LPN - 06/27/2012 13:11 FISHER Recreational Drug Use Grid Drug Use : None MADDIE STRONG LPN - 06/27/2012 13:11 FISHER Allergy Allergies (Active) Ceftin Estimated Onset Date: Unspecified ; Reactions: hives ; Created By: MADDIE STRONG LPN; Reaction Status: Active ; Category: Drug ; Substance: Ceftin ; Type: Allergy ; Updated By: MADDIE STRONG LPN; Reviewed Date: 06/27/2012 13:10 FISHER [facility] Document Id: [id number] ER documented in this encounter Plan of Treatment Not on filedocumented as of this encounter Visit Diagnoses Not on filedocumented in this encounter
--- OUTSIDE RECORDS SUMMARY | 2022-05-25 09:05 | XMS_ITS | Encounter Summary ---
:1955 Author Organization [facility] Address [address] [place] [address] Care Team Providers Name Role Phone Unavailable Primary Care Provider Unavailable Encounter Details Date Type Department Care Team Description 10/08/2015 Hospital Encounter [facility] Shereen Kaplan C.N.P. [address] [place] [address] (Wo rk) Social History Tobacco [...] How often do you attend muslim or zoroastrianism More than 4 time s [...] 156 cm (5' 1.42) 10/08/2015 11:03 AM CONTROL PANEL ASSEMBLER Body Mass Index - - documented in [...] daily. mg(1,250mg) -125 unit per tablet omega 2-tof-zxx-fish oil Take 1 capsule by 0 10/1910/03/2021 600 mg-216 mg- 324 mouth daily. mg-1,200 mg capsule,delayed release(DR/EC) documented as of this encounter Miscellaneous Notes Miscellaneous - River Brasher, RNaomiNaNomi - 11/25/2015 10:01 AM CDT Triage Call - Opthamology From: RIVER BRASHER RN Sent: 11/25/2015 10:01:26 CDT Subject: Triage Call - Opthamology [facility] Triage Call Reason for phone call: Patient reports flashes of light and floaters in left eye Caller Information: Who initiated call? (x)Patient/caller (_) [facility] Staff Who was the communication with? (x)Patient (_) Spouse (_) Parent (_) Child (_)Legal Clinical Therapist (_) Outside Healthcare Provider (snf, pharmacy, Etc.) (_)Other_ What number is patient/caller calling from? [phone] May we leave information on voice mail or answering machine if needed? (_) No (x) Yes Agriculture Manager requested? (x)No (_) Yes Comment: _ Call [...] Provider consulted Name_ (x) RN judgement Source: [facility] Document Id: [id number] Electronically signed by Conversion, [facility] Machine Stuffer Automatic [id number] at 01/13/2017 8:11 AM CDT Miscellaneous - Conversion, Historical Provider Ser - 10/08/2015 11:59 PM CONTROL PANEL ASSEMBLER Coding Summary-Paper Based CODING DATE: 10/15/2015 FINAL [facility] STATUS: * Discharged to Home or [...] CLARKE Date Saved: 10/15/2015 02:05 pm Source: [facility] Document Id: [id number] documented in this encounter Plan of Treatment Not on filedocumented as of this encounter Visit Diagnoses Not on filedocumented in this encounter
--- OUTSIDE RECORDS SUMMARY | 2022-05-25 09:05 | XMS_ITS | Encounter Summary ---
:1955 Author Organization [facility] Address [address] [place] [address] Care Team Providers Name Role Phone Unavailable Primary Care Provider Unavailable Encounter Details Date Type Department Care Team Description 01/29/2013 Hospital Encounter HX NO MAPPING Yulissa Finn APRN, C.N.P. [address] [phone] (Wo rk) Social History Tobacco Use [...] How often do you attend congregation or restorationist More than 4 time s [...]
--- OUTSIDE RECORDS SUMMARY | 2022-05-25 09:05 | XMS_ITS | Encounter Summary ---
:1955 Author Organization [facility] Address [address] [place] [address] Care Team Providers Name Role Phone Unavailable [...] How often do you attend christianity or scientology More than 4 time s [...] Comments Blood Pressure 130/86 07/05/2012 8:48 AM COIN PURSE FRAMER Pulse 68 07/05/2012 8:48 AM COIN PURSE FRAMER Temperature - - Respiratory Rate 16 07/05/2012 8:48 AM COIN PURSE FRAMER Oxygen Saturation - - Inhaled Oxygen Concentration [...] Carlos Lawton - 07/05/2012 8:29 AM CST [id number] IMPRESSION/REPORT/PLAN Ms. Tillman is a 57-year-old female [...] LAWTON PA-C On: 02/04/2013 08:19 AM Source: [facility] MHSDOLBEYNONRADSYS Document Id: [id number] documented in this encounter Miscellaneous Notes Miscellaneous - Carlos Lawton - 07/05/2012 9:21 AM CST Ambulatory Patient Summary [address] [address] Visit Information Name: COLLEEN TILLMAN [facility] Number: [phone] Current Date: 07/05/2012 09:21:36 Physicians [...] Carlos Lawton PA-C Your Goals/Additional instructions: Source: [facility] POWERCHART Document Id: [id number] PURSE FRAMER Miscellaneous - Carlos Lawton - 07/05/2012 9:21 AM CST Ambulatory Depart Summary [facility] [address] [place] [address] Visit Information Name: COLLEEN TILLMAN [facility] Number: [phone] Visit Date: 07/05/2012 09:21:35 Attending [...] your provider for clarification. Additional Information: Source: [facility] POWERCHART Document Id: [id number] PURSE FRAMER Miscellaneous - Rose Ziegler R.N. 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 Intake/History Entered On: 07/05/2012 8:51 COIN PURSE FRAMER Performed On: 07/05/2012 8:48 COIN PURSE FRAMER by ROSE ZIEGLER goat farmer Chief Complaint : f/u left humerus fx, feels good Temperature Core : 36.8C(Converted to: 98.2DegF) Peripheral Pulse Rate : 68/min Respiratory Rate : 16/min Heart Rhythm : Regular Systolic Blood Pressure : 130mmHg Diastolic Blood Pressure : 86mmHg NIBP Mean : 101mmHg BP Location : Right upper extremity Blood Pressure Cuff Size : Regular ROSE ZIEGLER RN - 07/05/2012 8:48 COIN PURSE FRAMER General Info Information Given By : Patient Preferred Communication Mode : Verbal Languages : Malay ROSE ZIEGLER RN - 07/05/2012 8:48 COIN PURSE FRAMER Subjective Pain Symptoms : No ROSE ZIEGLER RN - 07/05/2012 8:48 COIN PURSE FRAMER Dependent Habits Tobacco Use/Currently Using : No Exposure to Tobacco Smoke : Care provider denies smoking in home Smoking Status : Never smoker ROSE ZIEGLER RN - 07/05/2012 8:48 COIN PURSE FRAMER Tobacco Use Grid Last Use : never ROSE ZIEGLER RN - 07/05/2012 8:48 COIN PURSE FRAMER Caffeine Use Grid Caffeine Use : None ROSE ZIEGLER RN - 07/05/2012 8:48 COIN PURSE FRAMER Recreational Drug Use Grid Drug Use : None ROSE ZIEGLER RN - 07/05/2012 8:48 COIN PURSE FRAMER Allergy Allergies (Active) Ceftin Estimated Onset Date: Unspecified ; Reactions: hives ; Created By: MADDIE AGOSTO LPN; Reaction Status: Active ; Category: Drug ; Substance: Ceftin ; Type: Allergy ; Updated By: MADDIE AGOSTO LPN; Reviewed Date: 07/05/2012 8:47 COIN PURSE FRAMER Source: [facility] POWERCHART Document Id: [id number] PURSE FRAMER documented in this encounter Plan of Treatment Not on filedocumented as of this encounter Visit Diagnoses Not on filedocumented in this encounter
--- OUTSIDE RECORDS SUMMARY | 2022-05-25 09:05 | XMS_ITS | Encounter Summary ---
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 [facility] Document Id: [id number] documented in this encounter Plan of Treatment Not on filedocumented as of this encounter Visit Diagnoses Not on filedocumented in this encounter
--- OUTSIDE RECORDS SUMMARY | 2022-05-25 09:05 | XMS_ITS | Encounter Summary ---
:1955 Author Organization [facility] Address [address] [place] [address] Care Team Providers Name Role Phone Unavailable Primary Care Provider Unavailable Encounter Details Date Type Department Care Team Description 07/01/2012 Hospital Encounter HX [facility] Trev Beach III, M.D. [address] [place] [phone] (Wo rk) Social History Tobacco Use [...] How often do you attend pentecostalism or confucianism More than 4 time s [...] Comments Blood Pressure 114/70 07/01/2012 9:29 AM SLOOP CAPTAIN Pulse 80 07/01/2012 9:29 AM SLOOP CAPTAIN Temperature - - Respiratory Rate 16 07/01/2012 9:29 AM SLOOP CAPTAIN Oxygen Saturation - - Inhaled Oxygen Concentration [...] Peñaloza M.D. - 07/01/2012 9:06 AM CST [id number] CHIEF COMPLAINT/REASON FOR VISIT Suture removal. HISTORY [...] III, MD On: 07/30/2012 08:36 AM Source: [facility] MHSDOLBEYNONRADSYS Document Id: [id number] P CAPTAIN documented in this encounter Miscellaneous Notes Miscellaneous - Paty Albarran, L.P.N. - 07/01/2012 9:36 AM CST Health Assessment Health Assessment Entered On: 07/01/2012 9:37 SLOOP CAPTAIN Performed On: 07/01/2012 9:36 SLOOP CAPTAIN by PATY ALBARRAN [facility] Health Assessment Complete Health Assessment Complete or Modified : Annual Health Assessment Annual Health Assessment Completed : Yes PATY ALBARRAN TENSIONING MACHINE OPERATOR - 07/01/2012 9:36 SLOOP CAPTAIN Nutrition Nutrition Risk Factors by History Adult : None PATY ALBARRAN [facility] - 07/01/2012 9:36 SLOOP CAPTAIN Functional Current Daily Living Assistance : None PATY ALBARRAN [facility] - 07/01/2012 9:36 SLOOP CAPTAIN Dependent Habits Tobacco Use/Currently Using : No Exposure to Tobacco Smoke : Care provider denies smoking in home Smoking Status : Never smoker PATY ALBARRAN [facility] - 07/01/2012 9:36 SLOOP CAPTAIN Tobacco Use Grid Last Use : never PATY ALBARRAN [facility] - 07/01/2012 9:36 SLOOP CAPTAIN Alcohol Use : No PATY ALBARRAN [facility] - 07/01/2012 9:36 SLOOP CAPTAIN Caffeine Use Grid Caffeine Use : None PATY ALBARRAN [facility] - 07/01/2012 9:36 SLOOP CAPTAIN Recreational Drug Use Grid Drug Use : None PATY ALBARRAN [facility] - 07/01/2012 9:36 SLOOP CAPTAIN Psychosocial Domestic Abuse Concerns : None PATY ALBARRAN [facility] - 07/01/2012 9:36 SLOOP CAPTAIN Advance Directive Advanced Directives : Yes PATY ALBARRAN TENSIONING MACHINE OPERATOR - 07/01/2012 9:36 SLOOP CAPTAIN Educ Needs Learning Style Preference Adult Grid Patient : None Family : None PATY ALBARRAN [facility] - 07/01/2012 9:36 SLOOP CAPTAIN Source: [facility] POWERCHART Document Id: [id number] P CAPTAIN Miscellaneous - Paty Albarran L.P.N. 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 Intake/History Entered On: 07/01/2012 9:33 SLOOP CAPTAIN Performed On: 07/01/2012 9:29 SLOOP CAPTAIN by PATY ALBARRAN LPN Intake Chief Complaint [...] refused PATY ALBARRAN LPN - 07/01/2012 9:29 SLOOP CAPTAIN Subjective Pain Symptoms : No PATY ALBARRAN LPN - 07/01/2012 9:29 SLOOP CAPTAIN Dependent Habits Tobacco Use/Currently Using : No Exposure to Tobacco Smoke : Care provider denies smoking in home Smoking Status : Never smoker PATY ALBARRAN LPN - 07/01/2012 9:29 SLOOP CAPTAIN Tobacco Use Grid Last Use : never PATY ALBARRAN LPN - 07/01/2012 9:29 SLOOP CAPTAIN Alcohol Use : No PATY ALBARRAN LPN - 07/01/2012 9:29 SLOOP CAPTAIN Caffeine Use Grid Caffeine Use : None PATY ALBARRAN LPN - 07/01/2012 9:29 SLOOP CAPTAIN Recreational Drug Use Grid Drug Use : None PATY ALBARRAN LPN - 07/01/2012 9:29 SLOOP CAPTAIN Allergy Allergies (Active) Ceftin Estimated Onset Date: Unspecified ; Reactions: hives ; Created By: MADDIE AGOSTO LPN; Reaction Status: Active ; Category: Drug ; Substance: Ceftin ; Type: Allergy ; Updated By: MADDIE AGOSTO LPN; Reviewed Date: 06/29/2012 10:29 SLOOP CAPTAIN Source: [facility] POWERCHART Document Id: [id number] P CAPTAIN documented in this encounter Plan of Treatment Not on filedocumented as of this encounter Visit Diagnoses Not on filedocumented in this encounter
--- OUTSIDE RECORDS SUMMARY | 2022-05-25 09:05 | XMS_ITS | Encounter Summary ---
:1955 Author Organization [facility] Address [address] [place] [address] Care Team Providers Name Role Phone Unavailable Primary Care Provider Unavailable Encounter Details Date Type Department Care Team Description 08/08/2012 Hospital Encounter HX [facility] Chrissy De La Cruz, FABIANA, C.N.P., D. N.P. [address] [place] [address] (Wo rk) Social History Tobacco [...] How often do you attend quaker or church More than 4 time s [...] Comments Blood Pressure 130/69 08/08/2012 8:37 AM HOME SALES CONSULTANT Pulse 88 08/08/2012 8:37 AM HOME SALES CONSULTANT Temperature - - Respiratory Rate 16 08/08/2012 8:37 AM HOME SALES CONSULTANT Oxygen Saturation - - Inhaled Oxygen Concentration - - Weight 91.8 kg (202 lb 6.1 oz) 08/08/2012 8:37 AM HOME SALES CONSULTANT Height 156.5 cm (5' 1.61) 08/08/2012 8:37 AM HOME SALES CONSULTANT Body Mass Index 37.48 08/08/2012 8:37 AM HOME SALES CONSULTANT documented in this encounter Medications at Time [...] Cruz, D.N.P., C.N.P. - 08/08/2012 3:12 PM HOME SALES CONSULTANT Ambulatory Patient Summary [address] [address] Visit Information Name: DAMIAN TILLMAN [facility] Number: [id number] Current Date: 08/08/2012 15:12:03 Physicians [...] Date Time Location Reason Provider 08/09/2012 08:00 [facility] PT/OT humerous FX Melisa Edgardo 08/09/2012 08:30 [facility] Mammo osteopenia 08/15/2012 08:45 [facility] PT/OT left sided facial injury Arabella Caro 09/03/2012 14:30 [facility] Clin Follow up Donavon REED, Cayetano Vela Your Goals/Additional instructions: Source: [facility] POWERCHART Document Id: [id number] SALES CONSULTANT Miscellaneous - Chrissy De La Cruz, D.N.P., C.N.P. - 08/08/2012 3:12 PM HOME SALES CONSULTANT Ambulatory Depart Summary [id number] [place] [address] Visit Information Name: LAYNEDAMIAN Yani MEANS [facility] Number: [id number] Visit Date: 08/08/2012 15:12:03 Attending [...] for Pain / Fever Take with food [facility] Prescription (Melaluca vitamins) 1 packet Oral once a day omega-3 polyunsaturated fatty acids (Fish Oil oral capsule) 2 cap(s) Oral once a day aspirin (aspirin 81 mg oral tablet) 81 mg Oral once a day Attention: If you have any medications at home that are not on this list, DO NOT take them until youcontact your provider for clarification. Additional Information: Source: [facility] POWERCHART Document Id: [id number] SALES CONSULTANT Miscellaneous - Chrissy De La Cruz D.N.P., C.N.P. - 08/08/2012 3:06 PM HOME SALES CONSULTANT Results Notification Document Contains Addenda Addendum by MADDIE AGOSTO LPN on 08 August 2012 15:56:52 HOME SALES CONSULTANT Copy of labs sent to patient. From: CHRISSY DE LA CRUZ DNP, FNP To: MADDIE AGOSTO LPN Sent: 08/08/2012 15:06:06 HOME SALES CONSULTANT ! Show up: 08/08/2012 21:06:06 [facility] Subject: Results Notification Actions: Note to Nurse Source: [facility] POWERCHART Document Id: [id number] Electronically signed by Conversion, [facility] Director Of Retail Analytics [id number] at 01/20/2017 3:57 PM CDT Miscellaneous - Chrissy De La Cruz D.N.P., C.N.P. - 08/08/2012 3:04 PM HOME SALES CONSULTANT Results Notification Document Contains Addenda Addendum by MADDIE AGOSTO LPN on 08 August 2012 15:56:36 HOME SALES CONSULTANT Copy mailed to patient. From: CHRISSY DE LA CRUZ DNP, FREELANCE MAKEUP ARTIST To: MADDIE AGOSTO LPN Sent: 08/08/2012 15:04:47 HOME SALES CONSULTANT ! Show up: 08/08/2012 21:04:47 [facility] Subject: Results Notification Actions: Note to Nurse Source: [facility] POWERCHART Document Id: [id number] Electronically signed by Conversion, [facility] Director Of Retail Analytics [id number] at 01/20/2017 3:57 PM CDT Miscellaneous - Donavan Alba LNaomiPNaomiN. 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 Ankush done in [place] in 10/29, pap done in 2010 in [place]. hx of left shoulder pain. Check left [...] 37.48kg/m2 DONAVAN ALBA LPN - 08/08/2012 8:37 HOME SALES CONSULTANT Subjective Pain Symptoms : Yes DONAVAN ALBA LPN - 08/08/2012 8:37 HOME SALES CONSULTANT Pain Pain Assessment Grid Pain 1 Location : Shoulder Laterality : Left Intensity : 2 DONAVAN ALBA LPN - 08/08/2012 8:37 HOME SALES CONSULTANT Dependent Habits Tobacco Use/Currently Using : No Exposure to Tobacco Smoke : Care provider denies smoking in home Smoking Status : Never smoker DONAVAN ALBA LPN - 08/08/2012 8:37 HOME SALES CONSULTANT Tobacco Use Grid Last Use : never DONAVAN ALBA LPN - 08/08/2012 8:37 HOME SALES CONSULTANT Alcohol Use : No DONAVAN ALBA LPN - 08/08/2012 8:37 HOME SALES CONSULTANT Caffeine Use Grid Caffeine Use : None DONAVAN ALBA LPN - 08/08/2012 8:37 HOME SALES CONSULTANT Recreational Drug Use Grid Drug Use : None DONAVAN ALBA LPN - 08/08/2012 8:37 HOME SALES CONSULTANT Allergy Allergies (Active) Ceftin Estimated Onset Date: Unspecified ; Reactions: hives ; Created By: MADDIE AGOSTO LPN; Reaction Status: Active ; Category: Drug ; Substance: Ceftin ; Type: Allergy ; Updated By: MADDIE AGOSTO LPN; Reviewed Date: 08/08/2012 8:34 HOME SALES CONSULTANT Source: [facility] POWERCHART Document Id: [id number] SALES CONSULTANT Miscellaneous - Donavan Alba L.P.NNaomi - 08/08/2012 8:36 AM CST Meaningful Use Influenza Exclusion Meaningful Use Influenza Exclusion Entered On: 08/08/2012 8:36 HOME SALES CONSULTANT Performed On: 08/08/2012 8:36 HOME SALES CONSULTANT by ASLESON, DONAVAN J CERTIFIED INDUSTRIAL HYGIENIST Influenza Vaccine Exclusion Influenza Vaccine Exclusion : Patient declined DONAVAN ALBA CERTIFIED INDUSTRIAL HYGIENIST - 08/08/2012 8:36 HOME SALES CONSULTANT Source: [facility] POWERCHART Document Id: [id number] SALES CONSULTANT documented in this encounter Plan of Treatment Not on filedocumented as of this encounter Procedures Procedure Name Priority Date/Time Associated Comments Diagnosis URINALYSIS, ROUTINE Routine 08/08/2012 9:44 AM Re sults for this HOME SALES CONSULTANT procedure are i n the results section. URINE MICROSCOPIC Routine 08/08/2012 9:44 AM Resu lts for this HOME SALES CONSULTANT procedure are i n the results section. LIPID PANEL, S Routine 08/08/2012 9:41 AM Results for this HOME SALES CONSULTANT procedure are i n the results section. AUTOMATED Routine 08/08/2012 9:41 AM Results f or this DIFFERENTIAL, B HOME SALES CONSULTANT procedure ar e in the results section. LIPOPROTEIN (A), S/P Routine 08/08/2012 9:41 AM R esults for this HOME SALES CONSULTANT procedure are i n the results section. SEDIMENTATION RATE, B Routine 08/08/2012 9:41 AM Results for this HOME SALES CONSULTANT procedure are i n the results section. CBC WITH DIFFERENTIAL, Routine 08/08/2012 9:41 AM Results for this B HOME SALES CONSULTANT procedure are i n the results section. C-REACTIVE PROTEIN Routine 08/08/2012 9:41 AM Res ults for this (CRP), S/P HOME SALES CONSULTANT procedure are i n the results section. THYROID-STIMULATING Routine 08/08/2012 9:41 AM Re sults for this HORMONE-SENSITIVE HOME SALES CONSULTANT procedure are in (S-TSH) the results section. COMPREHENSIVE Routine 08/08/2012 9:41 AM Results for this METABOLIC PANEL, S/P HOME SALES CONSULTANT procedu re are in the results section. documented in this encounter Results Urine Microscopic (08/08/2012 9:44 AM HOME SALES CONSULTANT) [facility] Method Time Signature HXUr WBC 0-2 0 - 2 POWERCHART Red Blood Cell None Seen 0 - 2 POWERCHART Clump, Urine HXUr Bacteria Moderate POWERCHART HXUr Epithelial Many POWERCHART Comment: Squamous. [facility] 08/08/2012 10:09 Comment Specimen not suitable for culture. [facility] 08/08/2012 10:10 POWERCHART Specimen Anatomical Collection Method Collection Time Receive d Time (Source) Location / / Volume Laterality Urine 08/08/2012 9:44 AM 2 9:44 HOME SALES CONSULTANT AM HOME SALES CONSULTANT Chrissy L Sunday De La Cruz APRN.N.P., Loan.N.P. LAB URINE PARAM LEVI Performing Organization Address [facility] Code Phon e Number POWERCHART Urinalysis, Routine (08/08/2012 9:44 AM HOME SALES CONSULTANT) [facility] Method Time Signature HXUr Color Yellow POWERCHART Appearance Slightly POWERCHART Cloudy Glucose Negative POWERCHART HXBILIRUBIN Negative POWERCHART Ketones, QL(U) Negative POWERCHART Specific 1.020 1.000 - POWERCHART [place], POCT, U 1.030 pH, POCT, Urine 7.0 5.0 - 8.0 POWERCHART Protein, Ur, Dip Negative POWERCHART Urobilinogen 0.2 POWERCHART HXNITRITE Negative POWERCHART HXBLOOD Negative POWERCHART Leukocyte Trace POWERCHART Esterase Source Clean Void POWERCHART Urine Specimen (Source) Anatomical Collection Method Collection Time Re ceived Time Location / / Volume Laterality Urine 08/08/2012 9:44 AM HOME SALES CONSULTANT Chrissy Yani De La Cruz APRN C.N.P., D.N.P. LAB URINE ORDTemitope LEVI Performing Organization Address [facility] Phon e Number POWERCHART Automated Differential (08/08/2012 9:41 AM HOME SALES CONSULTANT) P athologist Signature Neutro % 61.5 42.0 - POWERCHART 77.0 Lymphocytes % 28.2 23.0 - POWERCHART 44.0 HX [place] % 6.5 2.0 - 18.0 POWERCHART HX [...] Blood 08/08/2012 9:41 AM 201 2 9:41 HOME SALES CONSULTANT AM HOME SALES CONSULTANT Chrissy De La Cruz APRN C.N.P., D.N.P. LAB BLOOD ADD- ON Performing Organization Address City/[facility]/ZIP Code Phon e Number POWERCHART Sedimentation Rate (08/08/2012 9:41 AM HOME SALES CONSULTANT) Analysis Performed At Patho logist Time Signature Sedimentation 29 0 - 30 POWERCHART Rate, B MMHR Specimen (Source) Anatomical Collection Method Collection Time Re ceived Time Location / / Volume Laterality Blood 08/08/2012 9:41 AM HOME SALES CONSULTANT Chrissy De La Cruz APRN C.N.P., D.N.P. LAB BLOOD ADD- ON Performing Organization Address City/[facility]/ZIP Code Phon e Number POWERCHART CBC with Differential (08/08/2012 9:41 AM HOME SALES CONSULTANT) P athologist Signature Leukocytes 5.2 3.4 - 10.5 POWERCHART X109L Erythrocytes 4.68 3.90 - POWERCHART 5.03 [id number] Hemoglobin 13.7 12.0 - POWERCHART 15.5 GDL Hematocrit 41.3 34.9 - POWERCHART 44.5 MCV 88.2 82.0 - POWERCHART 98.0 FL HX RDW 13.5 11.9 - POWERCHART 15.5 Platelet Count 197 150 - 450 POWERCHART X109L HXDifferential? Auto POWERCHART Specimen (Source) Anatomical Collection Method Collection Time Re ceived Time Location / / Volume Laterality Blood 08/08/2012 9:41 AM HOME SALES CONSULTANT Chrissy De La Cruz APRN, C.N.P., D.N.P. LAB BLOOD ADD- ON Performing Organization Address City/[facility]/ZIP Code Phon e Number POWERCHART CRP (C-Reactive Protein) (08/08/2012 9:41 AM HOME SALES CONSULTANT) P athologist Signature C-Reactive 0.48 0.00 - 0.80 POWERCHART Protein (CRP), MGDL S Specimen (Source) Anatomical Collection Method Collection Time Re ceived Time Location / / Volume Laterality Blood 08/08/2012 9:41 AM HOME SALES CONSULTANT Chrissy De La Cruz APRN C.N.P., D.N.P. LAB BLOOD ADD- ON Performing Organization Address City/State/ZIP Code Phon e Number POWERCHART Thyroid-Stimulating Hormone-Sensitive (s-TSH) (08/08/2012 9:41 AM HOME SALES CONSULTANT) athologist Signature TSH 1.83 0.30 - 5.00 POWERCHART (Thyrotropin) MCIUML Specimen (Source) Anatomical Collection Method Collection Time Re ceived Time Location / / Volume Laterality Blood 08/08/2012 9:41 AM HOME SALES CONSULTANT Sunday Sparks APRN.N.PNaomi, D.N.P. LAB BLOOD ADD- ON Performing Organization Address City/State/ZIP Code Phon e Number POWERCHART Lipoprotein (a) (08/08/2012 9:41 AM HOME SALES CONSULTANT) athologist Signature Lp(a) 5 <=30 MGDL POWERCHART Cholesterol Comment: Test Performed by: [place] [id number] Detector Car Operator: Bong tapia III, M.D. Specimen (Source) Anatomical Collection Method Collection Time Re ceived Time Location / / Volume Laterality Blood 08/08/2012 9:41 AM HOME SALES CONSULTANT Sunday Sparks APRN.N.P., D.N.P. LAB BLOOD ADD- ON Performing Organization Address City/State/ZIP Code Phon e Number POWERCHART (ABNORMAL) Lipid Panel (08/08/2012 9:41 AM HOME SALES CONSULTANT) athologist Signature Cholesterol, 248 (H) 0 - [...] / Volume Laterality Blood 08/08/2012 9:41 AM HOME SALES CONSULTANT Chrissy De La Cruz APRN C.N.P., D.N.P. LAB BLOOD ADD- ON Performing Organization Address City/State/ZIP Code Phon e Number POWERCHART (ABNORMAL) CMP (Comprehensive Metabolic Panel) (08/08/2012 9:41 AM HOME SALES CONSULTANT) [facility] gist Method Time Signature Alanine 31 15 [...] POWERCHART MMOLL HXeGFR (MDRD) >60 >=60 POWERCHART [id number] 2 Comment: A GFR of <60 mL/min is indicative of chr onic kidney disease. (MDRD calculation valid on patients 18 - 70 years.) eGFR Black/ >60 >=60 [id number] POWERCHART Bilirubin, Total, S 0.4 0.1 - 1.0 MGDL POWER CHART Total Protein, S 7.6 6.3 - 7.9 GDL POWERCHAR T Glucose 87 70 - 139 MGDL POWERCHART Specimen (Source) Anatomical Collection Method Collection Time Re ceived Time Location / / Volume Laterality Blood 08/08/2012 9:41 AM HOME SALES CONSULTANT Chrissy De La Cruz APRN, C.N.P., D.N.P. LAB BLOOD ADD- ON Performing Organization Address City/State/ZIP Code Phon e Number POWERCHART documented in this encounter Visit Diagnoses Not on filedocumented in this encounter
--- OUTSIDE RECORDS SUMMARY | 2022-05-25 09:05 | XMS_ITS | Encounter Summary ---
:1955 Author Organization [facility] Address [address] [place] [address] Care Team Providers Name Role Phone Unavailable Primary Care Provider Unavailable Encounter Details Date Type Department Care Team Description 01/29/2013 Hospital Encounter HX [facility] Solis Caicedo O.D. Social History Tobacco [...] How often do you attend sabianist or mu-ism More than 4 time s [...] Michaels O.D. - 01/29/2013 10:00 AM CDT [id number] Pain Questionnaire: Is your visit today because [...] Current RX: OTC READERS +1.75 Sphere Cylinder Cook Add Prism Right Eye +1.75 Left Eye [...] Left Eye HPI ROS Physical Exam [facility] Document Id: [id number] Solis Michaels O.D. - 01/29/2013 10:00 AM CDT [id number] CLINIC ENCOUNTER SLIT LAMP EXAMINATION: Shows angles [...] want glasses for distance. Is satisfied with [id number]-[id number] readers PLAN: At her request, no Rx for glasses given. She will continue to use +2.00 zarc-ein-pizjalk readers. Reevaluate with full exam in two years, sooner if needed. Hang Alfredo//law cc: Source: [facility] RWMCHXTRANSXRTFSYS Document Id: [id number] Electronically signed by Conversion, [facility]estefanía Ship'S Officer [id number] at 01/15/2017 6:09 PM CDT documented in this encounter Plan of Treatment Not on filedocumented as of this encounter Visit Diagnoses Not on filedocumented in this encounter
--- OUTSIDE RECORDS SUMMARY | 2022-05-25 09:05 | XMS_ITS | Encounter Summary ---
:1955 Author Organization [facility] Address [address] [place] [address] Care Team Providers Name Role Phone Unavailable [...] How often do you attend methodist or congregational More than 4 time s [...]
--- OUTSIDE RECORDS SUMMARY | 2022-05-25 09:05 | XMS_ITS | Encounter Summary ---
:1955 Author Organization [facility] Address [address] [place] [address] Care Team Providers Name Role Phone Unavailable Primary Care Provider Unavailable Encounter Details Date Type Department Care Team Description 06/28/2012 Hospital Encounter HX NO MAPPING Gilma Gonzales M.D. [address] [place] [address] [phone] (Wo rk) Social History Tobacco [...] How often do you attend anabaptist or zoroastrianism More than 4 time s [...] Comments Blood Pressure 130/80 06/28/2012 10:37 AM CALL PERSON Pulse - - Temperature - - Respiratory [...] Gonzales M.D. - 06/28/2012 10:22 AM CST [id number] IMPRESSION/REPORT/PLAN Proximal humeral fracture with some mild [...] GONZALES MD On: 08/06/2012 03:38 PM Source: [facility] MHSDOLBEYNONRADSYS Document Id: [id number] PERSON documented in this encounter Miscellaneous Notes Miscellaneous - Te Gonzales M.D. - 06/28/2012 12:16 PM CST Ambulatory Patient Summary [address] [address] Visit Information Name: DAMIAN TILLMAN Current Date: [...] REED, Cayetano Vela Your Goals/Additional instructions: Source: [facility] POWERCHART Document Id: [id number] PERSON Miscellaneous - Te Gonzales M.D. - 06/28/2012 12:16 PM CST Ambulatory Depart Summary [facility] [address] [address] Visit Information Name: GINOJEROD DAMIAN Visit Date: [...] your provider for clarification. Additional Information: Source: [facility] Plan Me Up Document Id: [id number] PERSON Miscellaneous - Te Gonzales M.D. - 06/28/2012 11:33 AM CST Return to Work Status Return to Work Status Entered On: 06/28/2012 11:34 CALL PERSON Performed On: 06/28/2012 11:33 CALL PERSON by TE GONZALES MD Return to Work Status Employer : [employer] Date/Time of Injury : 06/27/2012 13:00 CALL PERSON Work Status Comment : limit to no left handed work TE GONZALES MD - 06/28/2012 11:33 CALL PERSON Source: [facility] Plan Me Up Document Id: [id number] PERSON Miscellaneous - Rose Ling R.N. 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 Entered On: 06/28/2012 10:40 CALL PERSON Performed On: 06/28/2012 10:37 CALL PERSON by ROSE LING reimbursement representative Chief Complaint : Pt fell and while [...] 97mmHg ROSE LING RN - 06/28/2012 10:37 CALL PERSON General Info Information Given By : Patient Preferred Communication Mode : Verbal Languages : Yakut ROSE LING RN - 06/28/2012 10:37 CALL PERSON Subjective Pain Symptoms : No ROSE LING RN - 06/28/2012 10:37 CALL PERSON FLACC Face FLACC : No particular expression or smile Legs FLACC : Normal position or relaxed Activity FLACC : Lying quietly, normal position, moves easily Cry FLACC : No cry, awake or asleep Consolabillity FLACC : Content, relaxed FLACC Pain Scale Score : 0 ROSE LING RN - 06/28/2012 10:37 CALL PERSON Dependent Habits Tobacco Use/Currently Using : No Exposure to Tobacco Smoke : Care provider denies smoking in home Smoking Status : Never smoker ROSE LING RN - 06/28/2012 10:37 CALL PERSON Caffeine Use Grid Caffeine Use : None ROSE LING RN - 06/28/2012 10:37 CALL PERSON Recreational Drug Use Grid Drug Use : None ROSE LING RN - 06/28/2012 10:37 CALL PERSON Allergy Allergies (Active) Ceftin Estimated Onset Date: Unspecified ; Reactions: hives ; Created By: MADDIE AGOSTO LPN; Reaction Status: Active ; Category: Drug ; Substance: Ceftin ; Type: Allergy ; Updated By: MADDIE AGOSTO LPN; Reviewed Date: 06/28/2012 10:36 CALL PERSON Anesth/Transfusion Anesthesia/Transfusions : Prior anesthesia ROSE LING RN - 06/28/2012 10:37 CALL PERSON ID Screen Drug Resistant Organism : No ROSE LING RN - 06/28/2012 10:37 CALL PERSON Activity/Exercise Exercise Type : Walking Exercise Frequency : 2-3 times per week Duration : 15-30 minutes ROSE LING RN - 06/28/2012 10:37 CALL PERSON Diabetes Intake Do You Have Diabetes : No ROSE LING RN - 06/28/2012 10:37 CALL PERSON Source: [facility] Plan Me Up Document Id: [id number] PERSON documented in this encounter Plan of Treatment Not on filedocumented as of this encounter Visit Diagnoses Not on filedocumented in this encounter
--- OUTSIDE RECORDS SUMMARY | 2022-05-25 09:05 | XMS_ITS | Encounter Summary ---
:1955 Author Organization [facility] Address [address] [place] [address] Care Team Providers Name Role Phone Unavailable [...] How often do you attend sikh or adventist More than 4 time s [...]
--- OUTSIDE RECORDS SUMMARY | 2022-05-25 09:05 | XMS_ITS | Encounter Summary ---
:1955 Author Organization [facility] Address [address] [place] [address] Care Team Providers Name Role Phone Unavailable Primary Care Provider Unavailable Encounter Details Date Type Department Care Team Description 07/25/2012 - Hospital Encounter HX [facility] SR[facility]etano Rush, 11/28/2012 PRonaldoC. Social [...] How often do you attend spiritism or baptist More than 4 time s [...] Discharge OT Discharge Entered On: 09/25/2012 8:06 MATERIAL HANDLER 1ST SHIFT Performed On: 09/25/2012 7:58 MATERIAL HANDLER 1ST SHIFT by MAYTE EDDY/Yani Goals Review OT Goals Reviewed : Goals reviewed and unchanged OT Discharge Status : Pt was seen for evaluation only on 08-15-12. Pt Dx of facial injury with paralysis. Onset date 06-27-12. Pt instructed on facial exercises and provided with handouts from [facility] on facial exercises, sensory desensitization and home program to do. Pt showed good understanding. Did not reschedule further treatment as no further concerns. D/C at this time. MAYTE EDDY/Yani - 09/25/2012 7:58 MATERIAL HANDLER 1ST SHIFT General Info Pain Symptoms : No MAYTE EDDY/Yani - 09/25/2012 7:58 MATERIAL HANDLER 1ST SHIFT OT Charge Charges - OT : Charges Not Appropriate MAYTE EDDY/Yani - 09/25/2012 7:58 MATERIAL HANDLER 1ST SHIFT Source: [facility] POWERCHART Document Id: [id number] Bolivar Cox, P.T. - 08/27/2012 12:00 AM CST [id number] CHIEF COMPLAINT/REASON FOR VISIT Patient comes in [...] BOLIVAR COX On: 09/02/2012 02:50 PM Source: [facility] MHSDOLBEYNONRADSYS Document Id: [id number] Bolivar Cottrell P.T. - 08/22/2012 12:00 AM CST [id number] IMPRESSION/REPORT/PLAN Colleen comes in today without a [...] BOLIVAR COX On: 08/27/2012 11:15 AM Source: [facility] MHSDOLBEYNONRADSYS Document Id: [id number] RIAL HANDLER 1ST SHIFT Bolivar Cox P.T. - 08/19/2012 12:00 AM CST [id number] IMPRESSION/REPORT/PLAN Colleen comes in today without significant [...] BOLIVAR COX On: 08/27/2012 11:17 AM [facility] Document Id: [id number] Bolivar Cottrell P.Varun. - 08/09/2012 12:00 AM CST [id number] IMPRESSION/REPORT/PLAN Colleen comes in after having seen the brand specialist yesterday. It is noted that we [...] BOLIVAR COX On: 08/27/2012 11:18 AM Source: [facility] MHSDOLBEYNONRADSYS Document Id: [id number] Bolivar Cottrell P.T. - 08/05/2012 12:00 AM CST [id number] IMPRESSION/REPORT/PLAN Colleen comes in today without significant [...] BOLIVAR COX On: 08/10/2012 11:24 AM Source: [facility] [employer] Document Id: [id number] RIAL HANDLER 1ST SHIFT Bolivar Cox P.T. - 08/01/2012 12:00 AM CST [id number] IMPRESSION/REPORT/PLAN Colleen comes in today stating that [...] BOLIVAR COX On: 08/10/2012 11:27 AM Source: [facility] [employer] Document Id: [id number] RIAL HANDLER 1ST SHIFT Bolivar Cox P.T. - 07/29/2012 12:00 AM CST [id number] IMPRESSION/REPORT/PLAN Colleen comes in today stating that [...] BOLIVAR COX On: 07/31/2012 07:40 AM Source: [facility] MHSDOLBEYNONRADSYS Document Id: [id number] RIAL HANDLER 1ST SHIFT documented in this encounter Consult Notes Conversion, Historical Provider Ser - 08/15/2012 12:00 AM CST [id number] REFERRING PROVIDER: Cayetano Raphael P.A.-C. CHIEF COMPLAINT/REASON [...] much better. She is right hand dominant. Eugene no concerns to address that at this [...] the content. Sd Millard/ines cc: Emilia Ch D.N.PaNomi/F.N.P Electronically Signed By: MAYTE EDDY OTR/L On: 09/03/2012 10:44 AM Source: [facility] MHSDOLBEYNONRADSYS Document Id: [id number] Bolivar Cox P.T. - 07/25/2012 12:00 AM CST [id number] REFERRING PHYSICIAN LANIE Ch. CHIEF COMPLAINT/REASON FOR [...] BOLIVAR COX On: 07/31/2012 07:48 AM Source: [facility] MHSDOLBEYNONRADSYS Document Id: [id number] RIAL HANDLER 1ST SHIFT documented in this encounter Miscellaneous Notes Miscellaneous - Chrissy De La Cruz D.N.P., C.N.P. - 08/26/2012 11:30 AM MATERIAL HANDLER 1ST SHIFT General Message Document Contains Addenda Addendum by MADDIE AGOSTO LPN on 26 August 2012 16:24:07 MATERIAL HANDLER 1ST SHIFT Spoke with Colleen cervantes. States, understanding. From: CHRISSY DE LA CRUZ DNP, CONTRACT ADMIN To: MADDIE AGOSTO LPN; Sent: 08/26/2012 11:30:50 MATERIAL HANDLER 1ST SHIFT Subject: General Message Please call Colleen and let her know I got her records and went through everything. It looks like herbone density results from us are just a little bit better than when they were last done. Still, advise to have this rechecked in 2- 3 years. Please let her know this, thank you. Chrissy Source: [facility] POWERCHART Document Id: [id number] documented in this encounter Plan of Treatment Not on filedocumented as of this encounter Visit Diagnoses Not on filedocumented in this encounter
--- OUTSIDE RECORDS SUMMARY | 2022-05-25 09:05 | XMS_ITS | Encounter Summary ---
:1955 Author Organization [facility] Address [address] [place] [address] Care Team Providers Name Role Phone Unavailable Primary Care Provider Unavailable Encounter Details Date Type Department Care Team Description 01/29/2013 Hospital Encounter [facility] XRAY Provider, Histori reilly Social History [...] How often do you attend taoism or congregational More than 4 time s [...]
--- OUTSIDE RECORDS SUMMARY | 2022-05-25 09:06 | XMS_ITS | Encounter Summary ---
:1955 Author Organization [facility] Address [address] [place] [address] Care Team Providers Name Role Phone Unavailable Primary Care Provider Unavailable Encounter Details Date Type Department Care Team Description 01/26/2011 Hospital Encounter HX NO MAPPING Ahbi Valle am, M.D. [address] [place] [address] [phone] (Wo rk) Social History Tobacco Use [...] How often do you attend hinduism or orthodoxy More than 4 time s [...]
--- OUTSIDE RECORDS SUMMARY | 2022-05-25 09:06 | XMS_ITS | Encounter Summary ---
:1955 Author Organization [facility] Address [address] [place] [address] Care Team Providers Name Role Phone Unavailable Primary Care Provider Unavailable Encounter Details Date Type Department Care Team Description 05/08/2006 Hospital [facility] Yulissa Lopez, APR N, C.N.P. [address] [place], [place] [phone] (Wo rk) Social History [...] or relatives? How often do you attend jew or lutheran More than 4 time s per year 09/17/2021 services? Do you belong to any clubs or organizations Yes 09/17/2021 such as jew groups, unions, fraternal or athletic groups, or [...]
--- OUTSIDE RECORDS SUMMARY | 2022-05-25 09:06 | XMS_ITS | Encounter Summary ---
:1955 Author Organization [facility] Address [address] [place] [address] Care Team Providers Name Role Phone Unavailable Primary Care Provider Unavailable Encounter Details Date Type Department Care Team Description 09/07/2008 Hospital En[facility] Yulissa Ruffin APRN, C.N.P. [address] [place], [place] [phone] (Wo rk) Social History [...] How often do you attend hinduism or yazidism More than 4 time s [...]
--- OUTSIDE RECORDS SUMMARY | 2022-05-25 09:06 | XMS_ITS | Encounter Summary ---
:1955 Author Organization [facility] Address [address] [place] [address] Care Team Providers Name Role Phone Unavailable Primary Care Provider Unavailable Encounter Details Date Type Department Care Team Description 12/31/2006 Hospital Encounter [facility] Yulissa Lopez, APR N, C.N.P. [address] [place], [place] [phone] (Wo rk) Social History [...] How often do you attend jain or sikhism More than 4 time s [...]
--- OUTSIDE RECORDS SUMMARY | 2022-05-25 09:06 | XMS_ITS | Encounter Summary ---
:1955 Author Organization [facility] Address [address] [place] [address] Care Team Providers Name Role Phone Unavailable Primary Care Provider Unavailable Encounter Details Date Type Department Care Team Description 01/03/2011 Hospital Encounter HX NO MAPPING Yulissa Finn APRN, C.N.P. [address] [place] [address] [phone] (Wo rk) Social History Tobacco Use [...] How often do you attend uatsdin or anabaptism More than 4 time s [...]
--- OUTSIDE RECORDS SUMMARY | 2022-05-25 09:06 | XMS_ITS | Encounter Summary ---
:1955 Author Organization [facility] Address [address] [place] [address] Care Team Providers Name Role Phone Unavailable Primary Care Provider Unavailable Encounter Details Date Type Department Care Team Description 09/23/2008 Hospital Encounter [facility]X [facility] XRAY Provider, Histori reilly Social [...] How often do you attend hinduism or cheondoism More than 4 time s [...]
--- OUTSIDE RECORDS SUMMARY | 2022-05-25 09:06 | XMS_ITS | Encounter Summary ---
:1955 Author Organization [facility] Address [address] [place] [address] Care Team Providers Name Role Phone Unavailable Primary Care Provider Unavailable Encounter Details Date Type Department Care Team Description 07/22/2008 Hospital Encounter [facility] Yulissa Ruffin APRN, C.N.P. [address] [place], [place] [phone] (Wo rk) Social History [...] How often do you attend gnosticism or hoahaoism More than 4 time s [...]
--- OUTSIDE RECORDS SUMMARY | 2022-05-25 09:06 | XMS_ITS | Encounter Summary ---
:1955 Author Organization [facility] Address [address] [place] [address] Care Team Providers Name Role Phone Unavailable Primary Care Provider Unavailable Encounter Details Date Type Department Care Team Description 01/26/2011 Hospital Encounter HX NO MAPPING Abhi Valle am, M.D. [address] [place] [address] [phone] (Wo rk) Social History Tobacco Use [...] How often do you attend caodaism or zoroastrian More than 4 time s [...]
--- OUTSIDE RECORDS SUMMARY | 2022-05-25 09:06 | XMS_ITS | Encounter Summary ---
:1955 Author Organization [facility] Address [address] [place] [address] Care Team Providers Name Role Phone Unavailable Primary Care Provider Unavailable Encounter Details Date Type Department Care Team Description 01/23/2011 Hospital Encounter [facility] NUTRITION Sabina Marquez, RDN, CDE [address] [place] [phone] Social History Tobacco Use Types [...] NIKI, C.D.E. - 01/23/2011 10:30 AM CDT [id number] S: Patient seen for f/u weight management [...] skim milk, banana nut muffin or Raisin Kyrgyz muffin, hard boiled egg, 1/2 banana, 8 oz milk Lunch: 1/2 sandwich/meat/cheese, carrot sticks Supper: varies Exercise: 3x/week walks on treadmill or outside 1-2 miles; is trying to increase to 5x/week O: Chol 235 TG 72 HDL 60 LDL 160 Ht. 5'2 Wt. 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 She is aware that emotional eating [...] as warranted. Source: [facility] RWHXTRANSXRTFSYS Document Id: [id number] Electronically signed by Conversion, [facility] Cent[facility] Forensic Dna Analyst [id number] at 01/20/2017 10:56 PM CDT documented in this encounter Plan of Treatment Not on filedocumented as of this encounter Visit Diagnoses Not on filedocumented in this encounter
--- OUTSIDE RECORDS SUMMARY | 2022-05-25 09:06 | XMS_ITS | Encounter Summary ---
:1955 Author Organization [facility] Address [address] [place] [address] Care Team Providers Name Role Phone Unavailable Primary Care Provider Unavailable Encounter Details Date Type Department Care Team Description 04/05/2006 Hospital Encounter [facility] PODIATRY Ana Felix D.P.M. [address] [place] [phone] (Wo rk) Social History Tobacco Use [...] How often do you attend yarsanism or pentecostalism More than 4 time s [...]
--- OUTSIDE RECORDS SUMMARY | 2022-05-25 09:06 | XMS_ITS | Encounter Summary ---
:1955 Author Organization [facility] Address [address] [place] [address] Care Team Providers Name Role Phone Unavailable Primary Care Provider Unavailable Encounter Details Date Type Department Care Team Description 01/03/[address] [facility] XRAY Provider, Histori reilly Social [...] How often do you attend orthodoxy or confucianism More than 4 time s [...]
--- OUTSIDE RECORDS SUMMARY | 2022-05-25 09:06 | XMS_ITS | Encounter Summary ---
:1955 Author Organization [facility] Address [address] [place] [address] Care Team Providers Name Role Phone Unavailable Primary Care Provider Unavailable Encounter Details Date Type Department Care Team Description 09/06/2005 Hospital Encounter [facility]OD[facility] Ana Felix D.P.M. [address] [place] [phone] (Wo rk) Social History Tobacco Use [...] How often do you attend latter-day or anabaptist More than 4 time s [...] Saucedo D.P.M. - 09/06/2005 9:45 AM CST [id number] SUBJECTIVE: Colleen presents to clinic for picker and sorter load and unload of custom functional orthotics. OBJECTIVE: The orthotic [...] understanding to infromation discussed this visit. Source: [facility]ANSXRTFS[facility] Document Id: [id number] Electronically signed by Conversion, [facility] Cardiology Technician [id number] at 01/22/2017 3:22 PM CDT documented in this encounter Plan of Treatment Not on filedocumented as of this encounter Visit Diagnoses Not on filedocumented in this encounter
--- OUTSIDE RECORDS SUMMARY | 2022-05-25 09:06 | XMS_ITS | Encounter Summary ---
:1955 Author Organization [facility] Address [address] [place] [address] Care Team Providers Name Role Phone Unavailable Primary Care Provider Unavailable Encounter Details Date Type Department Care Team Description 12/05/2010 Hospital Encounter [facility] Yulissa Ruffin APRN, C.N.P. [address] [place], [place] [phone] (Wo rk) Social History [...] How often do you attend islam or presybeterian More than 4 time s [...]
--- OUTSIDE RECORDS SUMMARY | 2022-05-25 09:06 | XMS_ITS | Encounter Summary ---
:1955 Author Organization [facility] Address [address] [place] [address] Care Team Providers Name Role Phone Unavailable Primary Care Provider Unavailable Encounter Details Date Type Department Care Team Description 10/05/2008 Hospital Encounter [facility] Yulissa Lopez, APR N, C.N.P. [address] [place], [place] [phone] (Wo rk) Social History [...] How often do you attend hinduism or samaritan More than 4 time s [...]
--- OUTSIDE RECORDS SUMMARY | 2022-05-25 09:06 | XMS_ITS | Encounter Summary ---
:1955 Author Organization [facility] Address [address] [place] [address] Care Team Providers Name Role Phone Unavailable Primary Care Provider Unavailable Encounter Details Date Type Department Care Team Description 11/21/2006 Hospital Encounter [facility] Yulissa Lopez, APR N, C.N.P. [address] [place], [place] [phone] (Wo rk) Social History [...] How often do you attend nondenominational or sikh More than 4 time s [...] C.N.P., R.N. - 11/21/2006 10:45 AM CDT [id number] Colleen presents today with c/o L breast pain off and on for 1 month. Today the paint was accompaniedby a stinging or zinger feeling going down her L arm. She does have a family h/o breast cancer andwanted to come in today for evaluation. Denies caffeine use, hormone use. She has started going to [email or web address] as of the past few months, otherwise does not note any other changes in daily activity. She does not feel a palpable mass or lump, but notes an area of tenderness on upper L quad of L breast, no redness or swelling noted either. 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 Source: [facility] RWHXTRANSXRTFSYS Document Id: [id number] Electronically signed by Conversion, [facility] Cyber Systems Engineer [id number] at 01/22/2017 7:56 AM CDT documented in this encounter Plan of Treatment Not on filedocumented as of this encounter Visit Diagnoses Not on filedocumented in this encounter
--- OUTSIDE RECORDS SUMMARY | 2022-05-25 09:06 | XMS_ITS | Encounter Summary ---
:1955 Author Organization [facility] Address [address] [place] [address] Care Team Providers Name Role Phone Unavailable Primary Care Provider Unavailable Encounter Details Date Type Department Care Team Description 09/23/2008 Hospital Encounter [facility] Yulissa Lopez, APR N, C.N.P. [address] [place], [place] [phone] (Wo rk) Social History [...] How often do you attend hindu or yazidi More than 4 time s [...] C.N.P., R.N. - 09/23/2008 8:15 AM CST [id number] Colleen is a 53 year old postmenopausal [...] her health over the next year. Source: [facility]RTFS[facility] Document Id: [id number] Electronically signed by Conversion, [facility] Medical Billing Coordinator [id number] at 01/21/2017 6:48 PM CDT documented in this encounter Miscellaneous Notes Miscellaneous - Conversion, Historical Provider Ser - 09/23/2008 8:15 AM GRAVITY METER OBSERVER [id number] Colleen Tolentino [address] [place] [phone] September 25, 2008 Dear Colleen Tolentino, I am happy to inform you that your recent cervical cancer screening test (PAP smear) was normal. Preventative screening such as this helps insure your health for years to come. Congratulations for taking care of yourself! Please contact my office if you have any further questions. [phone]. Sincerely, Yulissa Finn RN, [facility]IR[facility] TE[facility] OBSTETRICS/GYNECOLOGY [facility] Source: [facility]XTRANSXRTFSY Document Id: [id number] documented in this encounter Plan of Treatment Not on filedocumented as of this encounter Visit Diagnoses Not on filedocumented in this encounter
--- OUTSIDE RECORDS SUMMARY | 2022-05-25 09:06 | XMS_ITS | Encounter Summary ---
:1955 Author Organization [facility] Address [address] [place] [address] Care Team Providers Name Role Phone Unavailable Primary Care Provider Unavailable Encounter Details Date Type Department Care Team Description 01/03/2011 Hospital Encounter HX NO MAPPING Yulissa Finn APRN, C.N.P. [address] [phone] (Wo rk) Social History Tobacco Use [...] How often do you attend anabaptist or denominational More than 4 time s [...]
--- OUTSIDE RECORDS SUMMARY | 2022-05-25 09:06 | XMS_ITS | Encounter Summary ---
:1955 Author Organization [facility] Address [address] [place] [address] Care Team Providers Name Role Phone Unavailable Primary Care Provider Unavailable Encounter Details Date Type Department Care Team Description 09/23/2008 Hospital Encounter HX NO MAPPING Yulissa Finn APRN, C.N.P. [address] [place] [address] [address] [phone] (Wo rk) Social History Tobacco Use [...] How often do you attend synagogue or orthodoxy More than 4 time s [...]
--- OUTSIDE RECORDS SUMMARY | 2022-05-25 09:06 | XMS_ITS | Encounter Summary ---
:1955 Author Organization [facility] Address [address] [place] [address] Care Team Providers Name Role Phone Unavailable Primary Care Provider Unavailable Encounter Details Date Type Department Care Team Description 01/13/[address] [facility] XRAY Provider, Histori reilly Social History Tobacco [...] How often do you attend sabianist or orthodoxy More than 4 time s [...]
--- OUTSIDE RECORDS SUMMARY | 2022-05-25 09:06 | XMS_ITS | Encounter Summary ---
:1955 Author Organization [facility] Address [address] [place] [address] Care Team Providers Name Role Phone Unavailable Primary Care Provider Unavailable Encounter Details Date Type Department Care Team Description 01/03/2011 Hospital En[facility] Yulissa Lopez, APR N, C.N.P. [address] [place], [place] [phone] (Wo rk) Social History [...] How often do you attend sikhism or latter day More than 4 time [...] C.N.P., R.N. - 01/03/2011 8:15 AM CDT [id number] Colleen is a 55 year old postmenopausal [...] her health over the next year. Source: [facility] INSANEGisela [facility]ANSXRTFS[facility] Document Id: [id number] documented in this encounter Plan of Treatment Not on filedocumented as of this encounter Visit Diagnoses Not on filedocumented in this encounter
--- OUTSIDE RECORDS SUMMARY | 2022-05-25 09:06 | XMS_ITS | Encounter Summary ---
:1955 Author Organization [facility] Address [address] [place] [address] Care Team Providers Name Role Phone Unavailable Primary Care Provider Unavailable Encounter Details Date Type Department Care Team Description 10/22/2006 Hospital Encounter HX NO MAPPING Yulissa Finn APRN, C.N.P. [address] [place] [address] [address] [phone] (Wo rk) Social History Tobacco Use [...] How often do you attend restorationist or amish More than 4 time s [...]
--- OUTSIDE RECORDS SUMMARY | 2022-05-25 09:06 | XMS_ITS | Encounter Summary ---
:1955 Author Organization [facility] Address [address] [place] [address] Care Team Providers Name Role Phone Unavailable Primary Care Provider Unavailable Encounter Details Date Type Department Care Team Description 01/13/2011 Hospital Encounter HX NO MAPPING Yulissa Finn APRN, C.N.P. [address] [place] [address] [phone] (Wo rk) Social History Tobacco Use [...] How often do you attend sikh or jain More than 4 time s [...]
--- OUTSIDE RECORDS SUMMARY | 2022-05-25 09:06 | XMS_ITS | Encounter Summary ---
:1955 Author Organization [facility] Address [address] [place] [address] Care Team Providers Name Role Phone Unavailable Primary Care Provider Unavailable Encounter Details Date Type Department Care Team Description 07/12/2007 Hospital Encounter [facility] Yulissa Lopez, APR N, C.N.P. 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 Please check with your insurance carrier for authorization prior to this appointment. Please disregard this notice if you have already received authorization from your insurance company and have made an appointment. Sincerely, [facility] Source: [facility] Document Id: [id number] documented in this encounter Plan of Treatment Not on filedocumented as of this encounter Visit Diagnoses Not on filedocumented in this encounter
--- OUTSIDE RECORDS SUMMARY | 2022-05-25 09:06 | XMS_ITS | Encounter Summary ---
:1955 Author Organization [facility] Address [address] [place] [address] Care Team Providers Name Role Phone Unavailable Primary Care Provider Unavailable Encounter Details Date Type Department Care Team Description 12/20/2006 Hospital Encounter H[facility] XRAY Provider, Histori reilly Social [...] How often do you attend judaism or latter-day More than 4 time s [...] C.N.P., R.N. - 12/20/2006 9:00 AM CDT [id number] Quick Note: Mira puentes sent Source: [facility] Document Id: [id number] Electronically signed by Conversion, [facility] Commercial Real Estate Assistant [id number] at 01/22/2017 6:32 AM CDT documented in this encounter Plan of Treatment Not on filedocumented as of this encounter Visit Diagnoses Not on filedocumented in this encounter
--- OUTSIDE RECORDS SUMMARY | 2022-05-25 09:06 | XMS_ITS | Encounter Summary ---
:1955 Author Organization [facility] Address [address] [place] [address] Care Team Providers Name Role Phone Unavailable Primary Care Provider Unavailable Encounter Details Date Type Department Care Team Description 12/11/2006 Hospital Encounter H[facility] Yulissa Lopez, APR N, C.N.P. [address] [place], [place] [phone] (Wo rk) Social History [...] How often do you attend evangelical or mormonism More than 4 time s [...]
--- OUTSIDE RECORDS SUMMARY | 2022-05-25 09:06 | XMS_ITS | Encounter Summary ---
:1955 Author Organization [facility] Address [address] [place] [address] Care Team Providers Name Role Phone Unavailable Primary Care Provider Unavailable Encounter Details Date Type Department Care Team Description 11/21/2006 Hospital Encounter HX NO MAPPING Yulissa Finn APRN, C.N.P. [address] [phone] (Wo rk) Social History Tobacco Use [...] How often do you attend religious or presybeterian More than 4 time s [...]
--- OUTSIDE RECORDS SUMMARY | 2022-05-25 09:06 | XMS_ITS | Encounter Summary ---
:1955 Author Organization [facility] Address [address] [place] [address] Care Team Providers Name Role Phone Unavailable Primary Care Provider Unavailable Encounter Details Date Type Department Care Team Description 12/20/2006 Hospital Encounter HX NO MAPPING Yulissa Finn APRN, C.N.P. [address] [phone] (Wo rk) Social History Tobacco Use [...] How often do you attend yazidi or lutheran More than 4 time s [...]
--- OUTSIDE RECORDS SUMMARY | 2022-05-25 09:06 | XMS_ITS | Encounter Summary ---
:1955 Author Organization [facility] Address [address] [place] [address] Care Team Providers Name Role Phone Unavailable Primary Care Provider Unavailable Encounter Details Date Type Department Care Team Description 01/13/2011 Hospital Encounter HX NO MAPPING Yulissa Finn APRN, C.N.P. [address] [phone] (Wo rk) Social History Tobacco Use [...] How often do you attend restoration or yarsanism More than 4 time s [...]
--- OUTSIDE RECORDS SUMMARY | 2022-05-25 09:06 | XMS_ITS | Encounter Summary ---
:1955 Author Organization [facility] Address [address] [place] [address] Care Team Providers Name Role Phone Unavailable Primary Care Provider Unavailable Encounter Details Date Type Department Care Team Description 01/03/2011 Hospital Encounter [facility] Yulissa Lopez, APR N, C.N.P. [address] [place], [place] [phone] (Wo rk) Social History [...] How often do you attend holiness or jewish More than 4 time s [...]
--- OUTSIDE RECORDS SUMMARY | 2022-05-25 09:06 | XMS_ITS | Encounter Summary ---
:1955 Author Organization [facility] Address [address] [place] [address] Care Team Providers Name Role Phone Unavailable Primary Care Provider Unavailable Encounter Details Date Type Department Care Team Description 09/03/2008 Hospital Encounter HX [facility] IN[facility]OBS[facility] Suma Steven M.D. [address] [place] [address] (Wo rk) Social History Tobacco [...] How often do you attend episcopal or advent More than 4 time s [...]
--- OUTSIDE RECORDS SUMMARY | 2022-05-25 09:06 | XMS_ITS | Encounter Summary ---
:1955 Author Organization [facility] Address [address] [place] [address] Care Team Providers Name Role Phone Unavailable Primary Care Provider Unavailable Encounter Details Date Type Department Care Team Description 01/26/2011 Hospital Encounter HX NO MAPPING Abhi Valle am, M.D. [address] [place] [address] [phone] (Wo rk) Social History Tobacco Use [...] How often do you attend evangelical or presybeterian More than 4 time s [...]
--- OUTSIDE RECORDS SUMMARY | 2022-05-25 09:06 | XMS_ITS | Encounter Summary ---
:1955 Author Organization [facility] Address [address] [place] [address] Care Team Providers Name Role Phone Unavailable Primary Care Provider Unavailable Encounter Details Date Type Department Care Team Description 12/11/2006 Hospital Encounter [facility] Yulissa Lopez, APR N, C.N.P. 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 Source: [facility] Document Id: [id number] documented in this encounter Plan of Treatment Not on filedocumented as of this encounter Visit Diagnoses Not on filedocumented in this encounter
--- OUTSIDE RECORDS SUMMARY | 2022-05-25 09:06 | XMS_ITS | Encounter Summary ---
:1955 Author Organization [facility] Address [address] [place] [address] Care Team Providers Name Role Phone Unavailable Primary Care Provider Unavailable Encounter Details Date Type Department Care Team Description 10/10/2010 Hospital Encounter [facility]X [facility] Solis Caicedo O.D. 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 Our telephone number for scheduling an appointment is [phone]. If you have already made an appointment for this or have had the proceduredone, please disregard this notice. We look forward to seeing you soon. Sincerely, Solis Michaels O.D./yoselin Ophthalmology Department [facility] Source: [facility] Document Id: [id number] documented in this encounter Plan of Treatment Not on filedocumented as of this encounter Visit Diagnoses Not on filedocumented in this encounter
--- OUTSIDE RECORDS SUMMARY | 2022-05-25 09:06 | XMS_ITS | Encounter Summary ---
:1955 Author Organization [facility] Address [address] [place] [address] Care Team Providers Name Role Phone Unavailable Primary Care Provider Unavailable Encounter Details Date Type Department Care Team Description 10/07/2008 Hospital Encounter [facility]X [facility] Solis Caicedo O.D. Social History Tobacco [...] How often do you attend caodaism or mormonism More than 4 time s [...] Michaels O.D. - 10/07/2008 9:00 AM CST [id number] CLINIC ENCOUNTER SLIT LAMP EXAM: Shows angles [...] time. PLAN: The patient will continue with [id number] readers. Reevaluate with full exam in two years, sooner if needed. Solis Michaels O.D. KMivana cc: Source: [facility] RWHXTRANSXSYS Document Id: [id number] Conversion, Historical Provider Ser - 10/07/2008 9:00 AM CST [id number] Pain Questionnaire: Is your visit today because [...] Phoria:ortho. Current RX:NONE WITH HER Sphere Cylinder Moapa Add Prism OD OS Refraction RET OD RET OS MR OD -.25 20/30 VA OU MR OS PLANO +.25 040 20/25 25 ADD OD +2.00 NA NA 20/ VA OU ADD OS +2.00 NA NA 20/ 20 CYC OD 20/ CYC OS 20/ Final RX: Sphere Cylinder Moapa Add Prism OD +2.00 READERS OS IOP OD 13 OS 16 Tonometry Applination Dilation Medication Tropicamide 1.0% Optic Disc Assessment C/D Ratio OD C/D Ratio OS HPI ROS Physical Exam Source: [facility] RWHXTRANSXRTFSYS Document Id: [id number] documented in this encounter Plan of Treatment Not on filedocumented as of this encounter Visit Diagnoses Not on filedocumented in this encounter
--- OUTSIDE RECORDS SUMMARY | 2022-05-25 09:06 | XMS_ITS | Encounter Summary ---
:1955 Author Organization [facility] Address [address] [place] [address] Care Team Providers Name Role Phone Unavailable Primary Care Provider Unavailable Encounter Details Date Type Department Care Team Description 01/04/2011 Hospital Encounter [facility] Yulissa Lopez, APR N, C.N.P. [address] [place], [place] [phone] (Wo rk) Social History [...] How often do you attend synagogue or yazidi More than 4 time s [...]
--- OUTSIDE RECORDS SUMMARY | 2022-05-25 09:06 | XMS_ITS | Encounter Summary ---
:1955 Author Organization [facility] Address [address] [place] [address] Care Team Providers Name Role Phone Unavailable Primary Care Provider Unavailable Encounter Details Date Type Department Care Team Description 12/31/2006 Hospital Encounter [facility] Yulissa Lopez, APR N, C.N.P. [address] [place], [place] [phone] (Wo rk) Social History [...] or relatives? How often do you attend roman catholic or hoahaoism More than 4 time s per year 09/17/2021 services? Do you belong to any clubs or organizations Yes 09/17/2021 such as roman catholic groups, unions, fraternal or athletic groups, [...]
--- OUTSIDE RECORDS SUMMARY | 2022-05-25 09:06 | XMS_ITS | Encounter Summary ---
:1955 Author Organization [facility] Address [address] [place] [address] Care Team Providers Name Role Phone Unavailable Primary Care Provider Unavailable Encounter Details Date Type Department Care Team Description 08/24/2006 Hospital En[facility] Yulissa Ruffin APRN, C.N.P. [address] [place], [place] [phone] (Wo rk) Social History [...]
--- OUTSIDE RECORDS SUMMARY | 2022-05-25 09:06 | XMS_ITS | Encounter Summary ---
:1955 Author Organization [facility] Address [address] [place] [address] Care Team Providers Name Role Phone Unavailable Primary Care Provider Unavailable Encounter Details Date Type Department Care Team Description 09/23/2008 Hospital Encounter HX NO MAPPING Yulissa Finn APRN, C.N.P. [address] [phone] (Wo rk) Social History Tobacco Use [...] How often do you attend spiritism or restorationist More than 4 time s [...]
--- OUTSIDE RECORDS SUMMARY | 2022-05-25 09:07 | XMS_ITS | Encounter Summary ---
:1955 Author Organization [facility] Address [address] [place] [address] Care Team Providers Name Role Phone Unavailable Primary Care Provider Unavailable Encounter Details Date Type Department Care Team Description 02/15/2004 Hospital Encounter [facility]X [facility]THO Sanjay Georges M .D. Social [...] How often do you attend adventist or sabianism More than 4 time s [...] Provider Ser - 02/15/2004 9:45 AM CDT [id number] Addended by: PANDA CALDWELL on: 02/19/2004,2:28 PM Comment: Patient Registrar.Modules accepted: Amarilis tomlinson NotesThe individual is here [...] future. Tommy Georges M.D./rvD: 02/17/2004T: 02/19/2004 Source: [facility] RWHXTRANSXSYS Document Id: [id number] documented in this encounter Plan of Treatment Not on filedocumented as of this encounter Visit Diagnoses Not on filedocumented in this encounter
--- OUTSIDE RECORDS SUMMARY | 2022-05-25 09:07 | XMS_ITS | Encounter Summary ---
:1955 Author Organization [facility] Address [address] [place] [address] Care Team Providers Name Role Phone Unavailable [...] How often do you attend islam or congregation More than 4 time s [...] Provider Ser - 02/11/2004 12:00 AM CDT [id number] MEDICAL RECORD RELEASE TO [employer] [address] [place] [address] CLINIC NOTES 03/20 TO P RESENT RETRIEVAL 13.79 COPIES TAX 2.74 Source: [facility] Document Id: [id number] documented in this encounter Plan of Treatment Not on filedocumented as of this encounter Visit Diagnoses Not on filedocumented in this encounter
--- OUTSIDE RECORDS SUMMARY | 2022-05-25 09:07 | XMS_ITS | Encounter Summary ---
:1955 Author Organization [facility] Address [address] [place] [address] Care Team Providers Name Role Phone Unavailable Primary Care Provider Unavailable Encounter Details Date Type Department Care Team Description 07/08/2002 Hospital Encounter [facility] PODIATRY Provider, His torical Social [...] How often do you attend pentecostal or mormon More than 4 time s [...] Provider Ser - 07/08/2002 9:30 AM CST [id number] Addended by: CORY VAZ on: 07/14/2002,12:47 PMModules accepted: Order Summary, Progress NotesYv germain Tolentino presents to clinic for cook pickled meat of orthotics. Colleen states her feet are [...] with any pr oblems or questions. Source: [facility] RWHXTRANSXSYS Document Id: [id number] documented in this encounter Plan of Treatment Not on filedocumented as of this encounter Visit Diagnoses Not on filedocumented in this encounter
--- OUTSIDE RECORDS SUMMARY | 2022-05-25 09:07 | XMS_ITS | Encounter Summary ---
:1955 Author Organization [facility] Address [address] [place] [address] Care Team Providers Name Role Phone Unavailable Primary Care Provider Unavailable Encounter Details Date Type Department Care Team Description 02/26/2003 Hospital Encounter [facility] PODIATRY Provider, His torical [...] How often do you attend mormon or jewish More than 4 time s [...]
--- OUTSIDE RECORDS SUMMARY | 2022-05-25 09:07 | XMS_ITS | Encounter Summary ---
:1955 Author Organization [facility] Address [address] [place] [address] Care Team Providers Name Role Phone Unavailable [...] How often do you attend anabaptist or synagogue More than 4 time s [...]
--- OUTSIDE RECORDS SUMMARY | 2022-05-25 09:07 | XMS_ITS | Encounter Summary ---
:1955 Author Organization [facility] Address [address] [place] [address] Care Team Providers Name Role Phone Unavailable Primary Care Provider Unavailable Encounter Details Date Type Department Care Team Description 08/24/2004 Hospital Encounter [facility] Yulissa Lopez, APR N, C.N.P. [address] [place], [place] [phone] (Wo rk) Social History [...] How often do you attend baptism or hoahaoism More than 4 time s [...] C.NJulia, R.N. - 08/24/2004 12:00 AM CST [id number] Date: 08/24/2004 Name: Colleen Tolentino Birthdate: 1955 Soc.Sec.No: [id number] Colleen, Our records show you were due to have your cholesterol level checked in July. Please let me knowif you are still interested in having this done and I will renew the order for you. Thanks. Yulissa Finn RN, ACOUSTICAL MATERIAL WORKER OBSTETRICS/GYNECOLOGY [facility] Source: [facility] Document Id: [id number] Electronically signed by Lizeth, [facility] Assembly Machine Set Up Mechanic [id number] at 01/22/2017 6:27 PM CDT documented in this encounter Plan of Treatment Not on filedocumented as of this encounter Visit Diagnoses Not on filedocumented in this encounter
--- OUTSIDE RECORDS SUMMARY | 2022-05-25 09:07 | XMS_ITS | Encounter Summary ---
:1955 Author Organization [facility] Address [address] [place] [address] Care Team Providers Name Role Phone Unavailable Primary Care Provider Unavailable Encounter Details Date Type Department Care Team Description 10/02/2002 Hospital Encounter [facility] DERM Provider, Histori reilly Social History [...] How often do you attend mandaeism or confucianism More than 4 time s [...]
--- OUTSIDE RECORDS SUMMARY | 2022-05-25 09:07 | XMS_ITS | Encounter Summary ---
:1955 Author Organization [facility] Address [address] [place] [address] Care Team Providers Name Role Phone Unavailable Primary Care Provider Unavailable Encounter Details Date Type Department Care Team Description 12/26/2002 Hospital Encounter [facility] INTERNMED Geovani Aj M.D. 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 Rubio of [facility], who initially thought she might have psoriasis [...] further. Juan Aj M.D./mpD: 12/26/02T: 12/30/02 Source: [facility] RWHXTRANSXSYS Document Id: [id number] documented in this encounter Plan of Treatment Not on filedocumented as of this encounter Visit Diagnoses Not on filedocumented in this encounter
--- OUTSIDE RECORDS SUMMARY | 2022-05-25 09:07 | XMS_ITS | Encounter Summary ---
:[address] [facility] Address [address] [place] [address] Care Team Providers Name Role Phone Unavailable Primary Care Provider Unavailable Encounter Details Date Type Department Care Team Description 11/14/2002 Hospital Encounter [facility]X [facility] Provider, Nd storical Social History Tobacco Use Types Packs/Day [...] How often do you attend scientologist or episcopal More than 4 time s [...] Provider Ser - 11/14/2002 12:00 AM CST [id number] >> MARKIE Taylor Nov 14, 2002 10:57 AM >> CALL RECEIVED. Contact: I called her, went over the path report. She has an appt with her Derm MD in 10 days or so, says the hand condition is getting better. Source: [facility] RWHXTRANSXSYS Document Id: [id number] documented in this encounter Plan of Treatment Not on filedocumented as of this encounter Visit Diagnoses Not on filedocumented in this encounter
--- OUTSIDE RECORDS SUMMARY | 2022-05-25 09:07 | XMS_ITS | Encounter Summary ---
:1955 Author Organization [facility] Address [address] [place] [address] Care Team Providers Name Role Phone Unavailable Primary Care Provider Unavailable Encounter Details Date Type Department Care Team Description 01/07/2003 Hospital [facility] Geovani Aj M.D. [address] [place] [phone] (Wo rk) Social History Tobacco [...] Provider Ser - 01/07/2003 1:30 PM CDT [id number] The patient is seen today for application of T.R.U.E TEST patches. Will return in 24h for removal an d reading. Source: [facility] RWHXTRANSXSYS Document Id: [id number] documented in this encounter Plan of Treatment Not on filedocumented as of this encounter Visit Diagnoses Not on filedocumented in this encounter
--- OUTSIDE RECORDS SUMMARY | 2022-05-25 09:07 | XMS_ITS | Encounter Summary ---
:1955 Author Organization [facility] Address [address] [place] [address] Care Team Providers Name Role Phone Unavailable Primary Care Provider Unavailable Encounter Details Date Type Department Care Team Description 09/02/2003 Hospital Encounter [facility] Social History Tobacco Use Types Packs/Day [...] or relatives? How often do you attend bahai or yazidi More than 4 time s per year 09/17/2021 services? Do you belong to any clubs or organizations Yes 09/17/2021 such as bahai groups, unions, fraternal or athletic groups, or [...]
--- OUTSIDE RECORDS SUMMARY | 2022-05-25 09:07 | XMS_ITS | Encounter Summary ---
:1955 Author Organization [facility] Address [address] [place] [address] Care Team Providers Name Role Phone Unavailable Primary Care Provider Unavailable Encounter Details Date Type Department Care Team Description 01/20/2004 Hospital En[facility] Provider, Histor ical Social History Tobacco [...] often do you attend roman catholic or baptism More than 4 time s [...] Provider Ser - 01/20/2004 10:15 AM CDT [id number] Colleen is a 48 year old postmenopausal [...] years have adopte d 2 boys from [facility], they are 22 months and 10 months. [...] at 3:10 PM. happy pap sent Source[facility] Document Id: [id number] documented in this encounter Miscellaneous Notes Miscellaneous - Conversion, Historical Provider Ser - 01/20/2004 10:15 AM CDT [id number] Colleen Tolentino [address] [place] [phone] January 26, 2004 Dear Colleen Tolentino, I am happy to inform you that your recent cervical cancer screening test (PAP smear) was normal. Preventative screening such as this helps insure your health for years to come. Congratulations for taking care of yourself! Please contact my office if you have any further questions. [phone]. Sincerely, Thuy Agarwal C.N.P OBSTETRICS/GYNECOLOGY [facility] Source: [facility] Document Id: [id number] documented in this encounter Plan of Treatment Not on filedocumented as of this encounter Visit Diagnoses Not on filedocumented in this encounter
--- OUTSIDE RECORDS SUMMARY | 2022-05-25 09:07 | XMS_ITS | Encounter Summary ---
:1955 Author Organization [facility] Address [address] [place] [address] Care Team Providers Name Role Phone Unavailable Primary Care Provider Unavailable Encounter Details Date Type Department Care Team Description 11/04/2002 Hospital Encounter [facility] DERM Provider, Histori reilly Social History Tobacco [...]
--- OUTSIDE RECORDS SUMMARY | 2022-05-25 09:07 | XMS_ITS | Encounter Summary ---
:1955 Author Organization [facility] Address [address] [place] [address] Care Team Providers Name Role Phone Unavailable Primary Care Provider Unavailable Encounter Details Date Type Department Care Team Description 02/18/2004 Hospital Encounter [facility] Provider, [facility] Social History Tobacco Use Types [...] or relatives? How often do you attend confucianism or holiness More than 4 time s per year 09/17/2021 services? Do you belong to any clubs or organizations Yes 09/17/2021 such as confucianism groups, unions, fraternal or athletic groups, or [...]
--- OUTSIDE RECORDS SUMMARY | 2022-05-25 09:07 | XMS_ITS | Encounter Summary ---
:1955 Author Organization [facility] Address [address] [place] [address] Care Team Providers Name Role Phone Unavailable [...] How often do you attend sikhism or tenriism More than 4 time s [...]
--- OUTSIDE RECORDS SUMMARY | 2022-05-25 09:07 | XMS_ITS | Encounter Summary ---
:1955 Author Organization [facility] Address [address] [place] [address] Care Team Providers Name Role Phone Unavailable Primary Care Provider Unavailable Encounter Details Date Type Department Care Team Description 07/11/2005 Hospital Encounter [facility] Yulissa Lopez, APR N, C.N.P. [address] [place], [place] [phone] (Wo rk) Social History [...] How often do you attend muslim or temple More than 4 time s [...] C.N.P., R.N. - 07/11/2005 11:15 AM CST [id number] Colleen is a 50 year old postmenopausal woman here for her annual exam. She has been menopausal sinceage 45. She is not on HRT. She would like to continue with this plan. She denies any vaginal bleeding. Colleen is sexually active with her and denies dyspareunia. She denies problems with incontinence. Her bowels are regular . Adopted 2 boys from [facility], works 1 day/week in [employer]. For exercise, shegoes to [employer] and walks. She takes vitamins. 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 Source: [facility] Document Id: [id number] Electronically signed by Conversion, [facility] Drawing In Machine Tender [id number] at 01/22/2017 9:59 PM CDT documented in this encounter Miscellaneous Notes Miscellaneous - Conversion, Historical Provider Ser - 07/11/2005 11:15 AM PROPERTY INSURANCE CLAIMS EXAMINER [id number] Colleen Tolentino [address] [place] [phone] July 17, 2005 Dear Colleen Tolentino, I am happy to inform you that your recent cervical cancer screening test (PAP smear) was normal. Preventative screening such as this helps insure your health for years to come. Congratulations for taking care of yourself! Please contact my office if you have any further questions. [phone]. Sincerely, Yulissa Finn RN, LAMP DECORATOR OBSTETRICS/GYNECOLOGY [facility] Source: [facility] Document Id: [id number] Miscellaneous - Yulissa Finn C.N.P., R.N. - 07/11/2005 11:15 AM CST [id number] Colleen Tolentino [address] [place] [phone] July 18, 2005 [id number] Dear Ms. Tolentino: I am writing to [...] or problems, please contact our office at [phone]. Sincerely, Yulissa Finn RN, LAMP DECORATOR Obstetrics and Gynecology Department [facility] Source: [facility] RWHXTRANSXRTFSYS Document Id: [id number] documented in this encounter Plan of Treatment Not on filedocumented as of this encounter Visit Diagnoses Not on filedocumented in this encounter
--- OUTSIDE RECORDS SUMMARY | 2022-05-25 09:07 | XMS_ITS | Encounter Summary ---
:1955 Author Organization [facility] Address [address] [place] [address] Care Team Providers Name Role Phone Unavailable Primary Care Provider Unavailable Encounter Details Date Type Department Care Team Description 06/04/2002 Hospital Encounter [facility] Social History Tobacco Use Types [...] How often do you attend temple or orthodoxy More than 4 time s [...] Provider Ser - 06/04/2002 12:00 AM CDT [id number] >> MARKIE CHILDRESS SunJun 04, 2002 12:49 PM >> CALL RECEIVED. Contact: I called, left message re the chol, and pap. [facility] Document Id: [id number] documented in this encounter Plan of Treatment Not on filedocumented as of this encounter Visit Diagnoses Not on filedocumented in this encounter
--- OUTSIDE RECORDS SUMMARY | 2022-05-25 09:07 | XMS_ITS | Encounter Summary ---
:1955 Author Organization [facility] Address [address] [place] [address] Care Team Providers Name Role Phone Unavailable Primary Care Provider Unavailable Encounter Details Date Type Department Care Team Description 02/03/2003 Hospital Encounter [facility] DERM Provider, Histori reilly Social History Tobacco [...] How often do you attend pentecostal or roman catholic More than 4 time s per [...]
--- OUTSIDE RECORDS SUMMARY | 2022-05-25 09:07 | XMS_ITS | Encounter Summary ---
:1955 Author Organization [facility] Address [address] [place] [address] Care Team Providers Name Role Phone Unavailable [...] Provider Ser - 02/23/2004 12:00 AM CDT [id number] Abstracted by NATALY Customer Engagement Analyst on 02/25/2004 [facility] [place] [phone], YVONNE : 53Medical Record Number: [id number] Number: SSSMattcyrus Georges M.D.02/23/04 PROCEDURE/OPERATIVE REPORTPREOPERATIVE DIAGNOSIS:Symptomatic [...] condition having tolerate d surgery well.Sanjay Georges M.D./[facility]: 02/23/04T: 02/24/04 Source: [facility] RWHXTRANSXSYS Document Id: [id number] documented in this encounter Plan of Treatment Not on filedocumented as of this encounter Visit Diagnoses Not on filedocumented in this encounter
--- OUTSIDE RECORDS SUMMARY | 2022-05-25 09:07 | XMS_ITS | Encounter Summary ---
:1955 Author Organization [facility] Address [address] [place] [address] Care Team Providers Name Role Phone Unavailable Primary Care Provider Unavailable Encounter Details Date Type Department Care Team Description 01/15/2004 Hospital Encounter [facility] Ra kathleen Sharma, P.A.-CNaomi [address] [place] [address] (Wo rk) Social History Tobacco [...] or relatives? How often do you attend orthodox or zoroastrianism More than 4 time s per year 09/17/2021 services? Do you belong to any clubs or organizations Yes 09/17/2021 such as orthodox groups, unions, fraternal or athletic groups, [...] Provider Ser - 01/15/2004 1:30 PM CDT [id number] SUBJECTIVE:Colleen is a 48 year old female [...] hin layer of hydrocortisone 1% cautiously. Source: [facility] RWHXTRANSXSYS Document Id: [id number] documented in this encounter Plan of Treatment Not on filedocumented as of this encounter Visit Diagnoses Not on filedocumented in this encounter
--- OUTSIDE RECORDS SUMMARY | 2022-05-25 09:07 | XMS_ITS | Encounter Summary ---
:1955 Author Organization [facility] Address [address] [place] [address] Care Team Providers Name Role Phone Unavailable Primary Care Provider Unavailable Encounter Details Date Type Department Care Team Description 03/14/2004 Hospital Encounter [facility] ORTHO Sanjay Georges M .D. Social [...] How often do you attend taoist or yazdanism More than 4 time s [...] Progress Notes Conversion, Historical Provider Ser - 03/14/2004 11:30 AM CDT [id number] Addended by: PANDA CALDWELL on: 03/21/2004,1:47 PM Comment: Crisis Intervention Counselor.Modules accepted: Amarilis tomlinson NotesThe individual returns for a postop check after metal removal from her ankle. She heidy lly went through this smoothly without any real problems. The individual at this time is recommend ed to apply local care for the adherent tissue which has healed well. She will follow up here then o n a prn basis. Sanjay Georges M.D./rvD: 03/16/2004T: 03/21/2004 Source: [facility] RWHXTRANSXSYS Document Id: [id number] documented in this encounter Plan of Treatment Not on filedocumented as of this encounter Visit Diagnoses Not on filedocumented in this encounter
--- OUTSIDE RECORDS SUMMARY | 2022-05-25 09:07 | XMS_ITS | Encounter Summary ---
:1955 Author Organization [facility] Address [address] [place] [address] Care Team Providers Name Role Phone Unavailable Primary Care Provider Unavailable Encounter Details Date Type Department Care Team Description 11/07/2002 Hospital Encounter [facility], [place] [facility] Social History Tobacco Use Types Packs/Day [...] How often do you attend amish or sabianism More than 4 time s [...] Provider Ser - 11/07/2002 11:00 AM CST [id number] Came in for punch biopsy. Has psoriasis [...] can have one of the nurses in [facility] remove it, where Tiago hansen works. Source: [facility] Document Id: [id number] documented in this encounter Plan of Treatment Not on filedocumented as of this encounter Visit Diagnoses Not on filedocumented in this encounter
--- OUTSIDE RECORDS SUMMARY | 2022-05-25 09:07 | XMS_ITS | Encounter Summary ---
:1955 Author Organization [facility] Address [address] [place] [address] Care Team Providers Name Role Phone Unavailable Primary Care Provider Unavailable Encounter Details Date Type Department Care Team Description 08/11/2005 Hospital Encounter [facility] PODIATRY Ana Felix D.P.M. [address] [place] [phone] (Wo rk) Social History Tobacco Use [...] How often do you attend caodaism or catholic More than 4 time s [...] Saucedo, Loan.P.M. - 08/11/2005 11:00 AM CST [id number] SUBJECTIVE: Colleen is a 50 year old [...] and bilateral metatarsal pads. Prescription sent to [facility]. Assessmentfor Colleen will be ongoing with changes [...] understanding to information discussed this visit. Source: [facility] RWMCHXTRANSXRTFSYS Document Id: [id number] Electronically signed by Conversion, [facility] Business Lawyer [id number] at 01/22/2017 9:09 PM CDT documented in this encounter Plan of Treatment Not on filedocumented as of this encounter Visit Diagnoses Not on filedocumented in this encounter
--- OUTSIDE RECORDS SUMMARY | 2022-05-25 09:07 | XMS_ITS | Encounter Summary ---
:1955 Author Organization [facility] Address [address] [place] [address] Care Team Providers Name Role Phone Unavailable Primary Care Provider Unavailable Encounter Details Date Type Department Care Team Description 02/19/[address] [facility] Provider, [facility] Social History Tobacco Use Types Packs/Day Years [...] How often do you attend mosque or baptist More than 4 time s [...] Provider Ser - 02/19/2004 9:30 AM CDT [id number] Date of Surgery: 02/23/04Type of Anticipated Surgery: [...] yesMD Signatu re: Deyanira Weaver M.D . [facility] Source: [facility] RWMCHXTRANSXSYS Document Id: [id number] documented in this encounter Plan of Treatment Not on filedocumented as of this encounter Visit Diagnoses Not on filedocumented in this encounter
--- OUTSIDE RECORDS SUMMARY | 2022-05-25 09:07 | XMS_ITS | Encounter Summary ---
:1955 Author Organization [facility] Address [address] [place] [address] Care Team Providers Name Role Phone Unavailable Primary Care Provider Unavailable Encounter Details Date Type Department Care Team Description 03/03/2004 Hospital [facility] Provider, Histor ical Social History Tobacco [...] How often do you attend sabianist or christianity More than 4 time s [...]
--- OUTSIDE RECORDS SUMMARY | 2022-05-25 09:07 | XMS_ITS | Encounter Summary ---
:1955 Author Organization [facility] Address [address] [place] [address] Care Team Providers Name Role Phone Unavailable [...] How often do you attend mu-ism or latter-day More than 4 time s [...]
--- OUTSIDE RECORDS SUMMARY | 2022-05-25 09:07 | XMS_ITS | Encounter Summary ---
:1955 Author Organization [facility] Address [address] [place] [address] Care Team Providers Name Role Phone Unavailable Primary Care Provider Unavailable Encounter Details Date Type Department Care Team Description 07/20/2005 Hospital Encounter HX NO MAPPING Yulissa Finn APRN, C.N.P. [address] [phone] (Wo rk) Social History Tobacco Use [...]
--- OUTSIDE RECORDS SUMMARY | 2022-05-25 09:07 | XMS_ITS | Encounter Summary ---
:1955 Author Organization [facility] Address [address] [place] [address] Care Team Providers Name Role Phone Unavailable Primary Care Provider Unavailable Encounter Details Date Type Department Care Team Description 09/26/2002 Hospital Encounter [facility]X [facility] Provider, In storical Social History Tobacco Use Types Packs/Day [...] How often do you attend islam or jew More than 4 time s [...]
--- OUTSIDE RECORDS SUMMARY | 2022-05-25 09:07 | XMS_ITS | Encounter Summary ---
:1955 Author Organization [facility] Address [address] [place] [address] Care Team Providers Name Role Phone Unavailable Primary Care Provider Unavailable Encounter Details Date Type Department Care Team Description 01/08/2003 Hospital Encounter [facility] INTERNMED Geovani Aj M.D. [address] [place] [phone] (Wo rk) Social History Tobacco [...] How often do you attend taoist or anglican More than 4 time s [...] Provider Ser - 01/08/2003 1:00 PM CDT [id number] The patient is seen today in [facility] for removal of her patch tests. After removal there ap peared to be no reactions except for some mild gen redness under the tape. Will return in 48h for fi nal reading. Source: [facility] RWHXTRANSXSYS Document Id: [id number] documented in this encounter Plan of Treatment Not on filedocumented as of this encounter Visit Diagnoses Not on filedocumented in this encounter
--- OUTSIDE RECORDS SUMMARY | 2022-05-25 09:07 | XMS_ITS | Encounter Summary ---
:1955 Author Organization [facility] Address [address] [place] [address] Care Team Providers Name Role Phone Unavailable Primary Care Provider Unavailable Encounter Details Date Type Department Care Team Description 11/28/2002 Hospital Encounter [facility] DERM Provider, Histori reilly Social [...] How often do you attend alevism or rastafarian More than 4 time s [...]
--- OUTSIDE RECORDS SUMMARY | 2022-05-25 09:07 | XMS_ITS | Encounter Summary ---
:1955 Author Organization [facility] Address [address] [place] [address] Care Team Providers Name Role Phone Unavailable Primary Care Provider Unavailable Encounter Details Date Type Department Care Team Description 02/15/2004 Hospital Encounter [facility], [facility] Social History Tobacco Use Types Packs/Day Years [...] How often do you attend latter-day or christian More than 4 time s [...]
--- OUTSIDE RECORDS SUMMARY | 2022-05-25 09:07 | XMS_ITS | Encounter Summary ---
:1955 Author Organization [facility] Address [address] [place] [address] Care Team Providers Name Role Phone Unavailable Primary Care Provider Unavailable Encounter Details Date Type Department Care Team Description 12/01/2002 Hospital Encounter [facility] Provider, [place] [facility] Social History Tobacco Use Types Packs/Day Years [...] or relatives? How often do you attend tenriism or temple More than 4 time s per year 09/17/2021 services? Do you belong to any clubs or organizations Yes 09/17/2021 such as tenriism groups, unions, fraternal or athletic groups, or [...]
--- OUTSIDE RECORDS SUMMARY | 2022-05-25 09:07 | XMS_ITS | Encounter Summary ---
:1955 Author Organization [facility] Address [address] [place] [address] Care Team Providers Name Role Phone Unavailable Primary Care Provider Unavailable Encounter Details Date Type Department Care Team Description 02/18/2004 Hospital Encounter [facility] Provider, Historic al Social History [...]
--- OUTSIDE RECORDS SUMMARY | 2022-05-25 09:08 | XMS_ITS | Encounter Summary ---
:1955 Author Organization [facility] Address [address] [place] [address] Care Team Providers Name Role Phone Unavailable Primary Care Provider Unavailable Encounter Details Date Type Department Care Team Description 01/07/2002 Hospital Encounter [facility]X [facility] Iraj Chow M.D. [address] [place], [place] [address] Social History Tobacco Use [...] How often do you attend christian or latter-day More than 4 time s [...] Provider Ser - 01/07/2002 11:30 AM CDT [id number] Addended by: ORLIN MUHAMMAD on: 01/10/2002,10:15 AM [...] point. Iraj Mobley M.D./rvD: 2T: 01/10/2002 Source: [facility] RWHXTRANSXSYS Document Id: [id number] documented in this encounter Plan of Treatment Not on filedocumented as of this encounter Visit Diagnoses Not on filedocumented in this encounter
--- OUTSIDE RECORDS SUMMARY | 2022-05-25 09:08 | XMS_ITS | Encounter Summary ---
:1955 Author Organization [facility] Address [address] [place] [address] Care Team Providers Name Role Phone Unavailable Primary Care Provider Unavailable Encounter Details Date Type Department Care Team Description 01/29/2002 Hospital Encounter [facility] Social History Tobacco Use Types Packs/Day Years [...] How often do you attend sikh or gnosticist More than 4 time s [...]
--- OUTSIDE RECORDS SUMMARY | 2022-05-25 09:08 | XMS_ITS | Encounter Summary ---
:1955 Author Organization [facility] Address [address] [place] [address] Care Team Providers Name Role Phone Unavailable Primary Care Provider Unavailable Encounter Details Date Type Department Care Team Description 05/26/2002 Hospital Encounter [facility] EHW Provider, Historic al Social History Tobacco [...] often do you attend roman catholic or mormon More than 4 time s [...]
--- OUTSIDE RECORDS SUMMARY | 2022-05-25 09:08 | XMS_ITS | Encounter Summary ---
:1955 Author Organization [facility] Address [address] [place] [address] Care Team Providers Name Role Phone Unavailable Primary Care Provider Unavailable Encounter Details Date Type Department Care Team Description 01/07/2002 Hospital Encounter [facility] Poonam Almazan ra, R[address] [place], [place] [phone] Social History Tobacco Use [...] often do you attend jehovah's witness or islam More than 4 time s [...] Provider Ser - 01/07/2002 12:00 AM CDT [id number] Addended by: CORY VAZ on: 01/08/2002,3:23 PMModules accepted: Order Summarypt had xray done an d air cast was dispensed to pt per dr. wu. [facility] Document Id: [id number] documented in this encounter Plan of Treatment Not on filedocumented as of this encounter Visit Diagnoses Not on filedocumented in this encounter
--- OUTSIDE RECORDS SUMMARY | 2022-05-25 09:08 | XMS_ITS | Encounter Summary ---
:1955 Author Organization [facility] Address [address] [place] [address] Care Team Providers Name Role Phone Unavailable Primary Care Provider Unavailable Encounter Details Date Type Department Care Team Description 12/17/2001 Hospital Encounter [facility]X [facility] Iraj Chow M.D. [address] [place], [place] [address] Social History Tobacco Use [...] How often do you attend restorationist or mormon More than 4 time s [...] Provider Ser - 12/17/2001 11:45 AM CDT [id number] Addended by: CORY VAZ on: 12/25/2001,2:21 PMModules [...] from now.Iraj Mobley M.D./[place]: 2001T: 12/24/2001 Source: [facility] RWMCHXTRANSXSYS Document Id: [id number] documented in this encounter Plan of Treatment Not on filedocumented as of this encounter Visit Diagnoses Not on filedocumented in this encounter
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
--- OUTSIDE RECORDS SUMMARY | 2022-05-25 09:08 | XMS_ITS | Encounter Summary ---
:1955 Author Organization [facility] Address [address] [place] [address] Care Team Providers Name Role Phone Unavailable Primary Care Provider Unavailable Encounter Details Date Type Department Care Team Description 06/03/2002 Hospital Encounter [facility] POD[facility]RY Provider, His torical Social History [...] How often do you attend sikh or spiritism More than 4 time s [...] Provider Ser - 06/03/2002 11:30 AM CDT [id number] Addended by: SRAVANI MORAN on: 06/19/2002,1:06 PMModules [...] She will rtc in 3 weeks for package pick up. Source: [facility] RWHXTRANSXSYS Document Id: [id number] documented in this encounter Plan of Treatment Not on filedocumented as of this encounter Visit Diagnoses Not on filedocumented in this encounter
--- OUTSIDE RECORDS SUMMARY | 2022-05-25 09:08 | XMS_ITS | Encounter Summary ---
:1955 Author Organization [facility] Address [address] [place] [address] Care Team Providers Name Role Phone Unavailable Primary Care Provider Unavailable Encounter Details Date Type Department Care Team Description 06/03/2002 Hospital Encounter [facility] EHW Provider, Historic al Social History [...] How often do you attend sikh or advent More than 4 time s [...] Provider Ser - 06/03/2002 12:00 AM CDT [id number] >> COLLEEN Luevano Jun 03, 2002 10:59 AM >> CALL RECEIVED. Contact: opened in error [facility] Document Id: [id number] documented in this encounter Plan of Treatment Not on filedocumented as of this encounter Visit Diagnoses Not on filedocumented in this encounter
--- OUTSIDE RECORDS SUMMARY | 2022-05-25 09:08 | XMS_ITS | Encounter Summary ---
:1955 Author Organization [facility] Address [address] [place] [address] Care Team Providers Name Role Phone Unavailable Primary Care Provider Unavailable Encounter Details Date Type Department Care Team Description 01/30/2002 Hospital Encounter HX [facility] Danya Salinas M.D. [address] [place] [address] (Wo rk) Social History Tobacco [...] often do you attend latter day or orthodoxy More than 4 time s [...] Provider Ser - 01/30/2002 12:00 AM CDT [id number] >> COLLEEN TILLMAN [facility] Jan 30, 2002 9:06 AM >> CALL RECEIVED. Contact: Accepting this Rx will FAX it directly to the pharmacy. thank you Danya. Source: [facility] RWHXTRANSXSYS Document Id: [id number] documented in this encounter Plan of Treatment Not on filedocumented as of this encounter Visit Diagnoses Not on filedocumented in this encounter
--- OUTSIDE RECORDS SUMMARY | 2022-05-25 09:08 | XMS_ITS | Encounter Summary ---
:1955 Author Organization [facility] Address [address] [place] [address] Care Team Providers Name Role Phone Unavailable Primary Care Provider Unavailable Encounter Details Date Type Department Care Team Description 12/17/2001 Hospital Encounter HX [facility] Poonam Mosley ra, R.N. [address] [place], [place] [address] Social History Tobacco Use [...] often do you attend jehovah's witness or jew More than 4 time s [...] Provider Ser - 12/17/2001 12:00 AM CDT [id number] >> CROW Luevano Dec 17, 2001 12:19 PM >> CALL RECEIVED. Contact: cam walker dispensed to patient per dr. wu for follow up care of left ankle fracture. Source: [facility] RWHXTRANSXSYS Document Id: [id number] documented in this encounter Plan of Treatment Not on filedocumented as of this encounter Visit Diagnoses Not on filedocumented in this encounter
--- OUTSIDE RECORDS SUMMARY | 2022-05-25 09:08 | XMS_ITS | Encounter Summary ---
:1955 Author Organization [facility] Address [address] [place] [address] Care Team Providers Name Role Phone Unavailable Primary Care Provider Unavailable Encounter Details Date Type Department Care Team Description 01/10/2002 Hospital Encounter [facility] [place] [place] [facility] Social History Tobacco Use Types Packs/Day Years [...] How often do you attend advent or pentecostalism More than 4 time s [...]
--- OUTSIDE RECORDS SUMMARY | 2022-05-25 09:08 | XMS_ITS | Encounter Summary ---
:1955 Author Organization [facility] Address [address] [place] [address] Care Team Providers Name Role Phone Unavailable Primary Care Provider Unavailable Encounter Details Date Type Department Care Team Description 03/26/2002 Hospital Encounter [facility] [place] [facility] Social History Tobacco Use Types [...] How often do you attend restorationism or presybeterian More than 4 time s [...] Provider Ser - 03/26/2002 12:00 AM CDT [id number] >> MARKIE CHILDRESS SunMar 26, 2002 4:10 PM >> CALL RECEIVED. Contact: antoni bush has returned Source: [facility] RWHXTRANSXSYS Document Id: [id number] documented in this encounter Plan of Treatment Not on filedocumented as of this encounter Visit Diagnoses Not on filedocumented in this encounter
--- OUTSIDE RECORDS SUMMARY | 2022-05-25 09:09 | XMS_ITS | Encounter Summary ---
:[address] [facility] Address [address] [place] [address] Care Team Providers Name Role Phone Unavailable Primary Care Provider Unavailable Encounter Details Date Type Department Care Team Description 11/29/2001 Hospital Encounter [facility] Sanjay Georges M .D. [...] How often do you attend jew or anabaptist More than 4 time s [...] Provider Ser - 11/29/2001 4:30 PM CDT [id number] Addended by: CORY VAZ on: 12/25/2001,2:19 PMModules accepted: Order Summary, Progress Rigoberto Elizabeth rinaldi LOSAddended by: DERICK GANDHI on: 12/06/2001,8:47 AM Comment: Cnc Applications Engineer.Modules accepted : Progress FelicitaColleen reyes [id number] 11-29-01The individual presents for follow up of [...] boot. Sanjay Georges M.D./Balbina: 11-29-01T: 12-04-01 Source: [facility] RWHXTRANSXSYS Document Id: [id number] documented in this encounter Plan of Treatment Not on filedocumented as of this encounter Visit Diagnoses Not on filedocumented in this encounter
--- OUTSIDE RECORDS SUMMARY | 2022-05-25 09:09 | XMS_ITS | Encounter Summary ---
:1955 Author Organization [facility] Address [address] [place] [address] Care Team Providers Name Role Phone Unavailable [...] How often do you attend uatsdin or catholic More than 4 time s [...] Historical Provider Ser - 11/22/2001 12:00 AM BUILDING MAINTENANCE SUPERINTENDENT [id number] Addended by: DONAVAN CONTE on: 12/02/2001,9:50 AMModules accepted: Order Summary, Progress Notes-- Abstracted by NATALY Rooney on 11/29/2001[facility] [place], [place] [id number]. Grabiel orozco M.D.Room No. [id number], YVONNE : 54PROCEDURE/OPERATIVE REPORTPREOP ERATIVE DIAGNOSIS:Left ankle [...] satisfactory condition having tolerated the surgery well. ROBLES:[id number]. 11-26 Zelda Georges M.D. Source: [facility] RWHXTRANSXSYS Document Id: [id number] documented in this encounter Plan of Treatment Not on filedocumented as of this encounter Visit Diagnoses Not on filedocumented in this encounter
--- OUTSIDE RECORDS SUMMARY | 2022-05-25 09:09 | XMS_ITS | Encounter Summary ---
:1955 Author Organization [facility] Address [address] [place] [address] Care Team Providers Name Role Phone Unavailable Primary Care Provider Unavailable Encounter Details Date Type Department Care Team Description 11/21/[address] [facility] Sanjay Georges M .D. Social History [...] How often do you attend voodoo or nondenominational More than 4 time s [...] Provider Ser - 11/21/2001 11:15 AM CST [id number] Addended by: DERICK GANDHI on: 11/29/2001,2:08 PM Comment: Autism Teacher.Modules accepted: Jose J josé Colleen Wiggins [id number] 11-21-01The individual is here for a follow [...] Georges M.D./Balbina: 11-22-01T: 11-27-01 Source: [facility] RWMCHXTRANSXSYS Document Id: [id number] documented in this encounter Plan of Treatment Not on filedocumented as of this encounter Visit Diagnoses Not on filedocumented in this encounter
--- OUTSIDE RECORDS SUMMARY | 2022-05-25 09:09 | XMS_ITS | Encounter Summary ---
:1955 Author Organization [facility] Address [address] [place] [address] Care Team Providers Name Role Phone Unavailable Primary Care Provider Unavailable Encounter Details Date Type Department Care Team Description 11/08/2001 Hospital Encounter HX [facility] Sanjay Georges M .D. [...] How often do you attend presybeterian or anglican More than 4 time s [...] Provider Ser - 11/08/2001 1:30 PM CST [id number] Addended by: CORY VAZ on: 12/25/2001,2:10 PMModules accepted: Order Summary, Progress NotesAdd ended by: BELLA FRANCO on: 11/18/2001,10:32 AM Comment: tranxModules accepted: Progress Notes Colleen Tolentino [id number] 11-08-01The individual is here for a follow [...] repeat x-rays.Sanjay Georges M.D./Balbina: 11-08-01T: 11-15-01 Source: [facility] RWHXTRANSXSYS Document Id: [id number] documented in this encounter Plan of Treatment Not on filedocumented as of this encounter Visit Diagnoses Not on filedocumented in this encounter
--- OUTSIDE RECORDS SUMMARY | 2022-05-25 09:09 | XMS_ITS | Encounter Summary ---
:1955 Author Organization [facility] Address [address] [place] [address] Care Team Providers Name Role Phone Unavailable [...] How often do you attend mormon or christian More than 4 time s [...] Historical Provider Ser - 10/31/2001 12:00 AM COAL CUTTER [id number] Addended by: DONVAAN CONTE on: 11/07/2001,3:06 PMModules accepted: Order SummaryAddended by: DONAVAN KHAN on: 11/04/2001,10:25 AMModules accepted: Order Summary*-*-*-*-* SEE SCANNED REPORT *-*-*- *-* Source: [facility] RWHXTRANSXSYS Document Id: [id number] documented in this encounter Plan of Treatment Not on filedocumented as of this encounter Visit Diagnoses Not on filedocumented in this encounter
--- OUTSIDE RECORDS SUMMARY | 2022-05-25 09:09 | XMS_ITS | Encounter Summary ---
:1955 Author Organization [facility] Address [address] [place] [address] Care Team Providers Name Role Phone Unavailable [...] often do you attend latter day or buddhist More than 4 time s [...] Historical Provider Ser - 10/31/2001 12:00 AM ASSESSMENT SPECIALIST [id number] Abstracted by NATALY Rooney on [address] [place], [place] [id number] [place], [place] [id number] .Grabiel Georges M.D.Room [facility]. [facility] Number: [id number], Yvonne : 53PRO CEDURE/OPERATIONPREOPERATIVE DIAGNOSIS: Left ankle [...] placed obtaining ex cellent purchase and anatomic zoroastrianism. The medial side was approached. The ankle [...] condition having tolerated t he procedure well. MARGARET/[id number]. 12-15-01 Chico Georges M.D. Source: [facility] RWHXTRANSXSYS Document Id: [id number] documented in this encounter Plan of Treatment Not on filedocumented as of this encounter Visit Diagnoses Not on filedocumented in this encounter
--- OUTSIDE RECORDS SUMMARY | 2022-05-25 09:09 | XMS_ITS | Encounter Summary ---
:[address] [facility] Address [address] [place] [address] Care Team Providers Name Role Phone Unavailable [...] How often do you attend pentecostal or bahai More than 4 time s [...]
--- OUTSIDE RECORDS SUMMARY | 2022-05-25 09:09 | XMS_ITS | Encounter Summary ---
:1955 Author Organization [facility] Address [address] [place] [address] Care Team Providers Name Role Phone Unavailable [...] How often do you attend restorationism or denominational More than 4 time s [...]
--- OUTSIDE RECORDS SUMMARY | 2022-05-25 09:09 | XMS_ITS | Encounter Summary ---
:1955 Author Organization [facility] Address [address] [place] [address] Care Team Providers Name Role Phone Unavailable [...] How often do you attend pentecostalism or confucianist More than 4 time s [...] Historical Provider Ser - 10/31/2001 12:00 AM FOOD AND NUTRITION SERVICES SUPERVISOR [id number] Abstracted by NATALY Construction Specialist on [address] [place], [place] [id number] [place], [place] [id number] .A. Eich, M.D.Room [facility]. [facility]SS[facility] Number: [id number], YVONNE : [id number] IONThe individual is an active 46-year-old woman who works at the [employer]. On t he day of admission [...] compressed. She will follow up per plan. MARGARET/[id number]. 12-15-01 Chico Georges M.D. Source: [facility] RWHXTRANSXSYS Document Id: [id number] documented in this encounter Plan of Treatment Not on filedocumented as of this encounter Visit Diagnoses Not on filedocumented in this encounter
--- OUTSIDE RECORDS SUMMARY | 2022-05-25 09:09 | XMS_ITS | Encounter Summary ---
:1955 Author Organization [facility] Address [address] [place] [address] Care Team Providers Name Role Phone Unavailable Primary Care Provider Unavailable Encounter Details Date Type Department Care Team Description 07/15/2001 Hospital Encounter [facility] Ramesh Fuentes M.D. Social History Tobacco [...] How often do you attend evangelical or gnosticist More than 4 time s [...] Provider Ser - 07/15/2001 12:00 AM CST [id number] >> RAMESH PATINO Mon Jul 15, 2001 11:11 AM Mehrdad canas >> COLLEEN TILLMAN Mon Jul 15, 2001 9:50 AM >> CALL RECEIVED. Contact: Accepting this Rx will FAX it directly to the pharmacy. hot flashes interupting sleep. Source: [facility] RWHXTRANSXSYS Document Id: [id number] documented in this encounter Plan of Treatment Not on filedocumented as of this encounter Visit Diagnoses Not on filedocumented in this encounter
--- OUTSIDE RECORDS SUMMARY | 2022-05-25 09:09 | XMS_ITS | Encounter Summary ---
:1955 Author Organization [facility] Address [address] [place] [address] Care Team Providers Name Role Phone Unavailable Primary Care Provider Unavailable Encounter Details Date Type Department Care Team Description 07/15/2001 Hospital [facility] Silvia Fuentes M.D. Social History Tobacco Use [...] How often do you attend hoahaoism or presybeterian More than 4 time s [...]
--- OUTSIDE RECORDS SUMMARY | 2022-05-25 09:09 | XMS_ITS | Encounter Summary ---
:1955 Author Organization [facility] Address [address] [place] [address] Care Team Providers Name Role Phone Unavailable [...] Historical Provider Ser - 10/30/2001 12:00 AM BROTH SETTER [id number] Abstracted by NATALY Laboratory Tech on 11/05/[address] [id number].Jacobo Berry M.D.Room No. [facility]SS[facility] Number: [id number], YVONNE : [id number] TION/HISTORY AND PHYSICALCHIEF COMPLAINT: Fall with left [...] on the right hand. Status post tonsillectomy. [place] t ooth extraction. MEDICATIONS: Celebrex 100 mg daily. Aspirin 81 mg daily. She takes Valerian and [place]'s Wort. ALLERGIES: CEFTIN causing hives and facial swelling. SOCIAL HISTORY: Patient is . 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 She does not smoke or drink alcohol. [...] with Toradol and Demerol for pain. KIMBERLY/ [id number]. 10-31-01 Elijah Berry M.D. Source: [facility] RWHXTRANSXSYS Document Id: [id number] documented in this encounter Plan of Treatment Not on filedocumented as of this encounter Visit Diagnoses Not on filedocumented in this encounter
--- OUTSIDE RECORDS SUMMARY | 2022-05-25 09:10 | XMS_ITS | Encounter Summary ---
:1955 Author Organization [facility] Address [address] [place] [address] Care Team Providers Name Role Phone Shelley Porter MD Primary Care Provider Unavailable Reason for Visit Reason Onset Date Comments Med Refill 10/04/2020 Encounter Details Date Type Department Care Team Description 10/04/2020 Refill [facility] Shelley Porter, Essential hypertension [address] [place], [place] [address] Social History Tobacco Use [...] lab appt scheduled for Sunday10/06/20 as requested. MOTIVE SERVICE TECHNICIAN Telephone Encounter - Yuki Cornejo RN - 10/04/2020 11:31 AM CST Please call patient to schedule fasting labs. MOTIVE SERVICE TECHNICIAN Telephone Encounter - Shelley Porter MD - 10/04/2020 11:21 AM CST Due for routine labs, already ordered. MOTIVE SERVICE TECHNICIAN Telephone Encounter - Yuki Cornejo RN - 10/04/2020 8:17 AM CST Please review request. MOTIVE SERVICE TECHNICIAN Telephone Encounter - Nikia Clarke LPN - 10/04/2020 7:30 AM AUTOMOTIVE SERVICE TECHNICIAN Last visit in provider department: 04/29/2020 Last [...] Please contact patient to assist with scheduling. MOTIVE SERVICE TECHNICIAN documented in this encounter Plan of Treatment Not on filedocumented as of this encounter Visit Diagnoses Diagnosis Essential hypertension Unspecified essential hypertension documented in this encounter Care Teams Advertising Columnist Relationship Specialty Start Date End Date Shelley Porter MD PCP - General Family Medicine 04/19/20 documented as of this encounter
--- OUTSIDE RECORDS SUMMARY | 2022-05-25 09:10 | XMS_ITS | Encounter Summary ---
:1955 Author Organization [facility] Address [address] [place] [address] Care Team Providers Name Role Phone Shelley Porter MD Primary Care Provider Unavailable Reason for Visit Reason Comments Establish Care Encounter Details Date Type Department Care Team Description 04/29/2020 Office Visit Tarik López Shelley Porter Essential hypertension (Prim dylan Dx); [address] [place] Jacobo Mixed hyperlipidemia; [place], [place] Osteopenia, unspecified location [id number] Social History Tobacco Use Types Packs/Day Years [...] at age 54 if you have a 56-ulbe-jkpj history of smoking and currently smoke or [...] 09/01/2016 Document Revised: 09/26/2018 Document Reviewed: 06/06/2016 Pro Breath MD Interactive Patient Education ?? 2019 GoodApril. documented in this encounter Progress Notes Shelley [...] was last seen in clinic by primary lpn care manager in 05/2019 and subsequently evaluated by cardiology on 08/2019. She had an ec hocardiogram performed in June 2019 which showed some mild increased concentric left ventricularthickness, left ventricular ejection fraction estimated to be 65 to 70%, no regional wall abnormalities, no significant valvular disease and normal right ventricular function and size. She underwent carotid artery ultrasound at [facility] in [facility] which showed an well plaque. Labs were [...] me she sees a homeopathic doctor in [place] named Edita Olvera. She gets her routine screening tests at [facility] and has an upcoming mammogram. Her mom [...] Last colonoscopy was in January 2011 at [facility] and was normal with recommended repeat in [...] for repeat colonoscopy in January 2011 at [facility] in [facility]. She will complete mammogram for breast cancer [...] at age 54 if you have a 40-kdya-bsop history of smoking and currently smoke or [...] 09/01/2016 Document Revised: 09/26/2018 Document Reviewed: 06/06/2016 Pro Breath MD Interactive Patient Education ?? 2019 GoodApril. documented in this encounter Plan of Treatment Not on filedocumented as of this encounter Results (ABNORMAL) Lipid panel (10/06/2020 8:38 AM SCHOOL HEALTH AIDE) athologist Signature Cholesterol 241 (H) 0 - 199 10/06/2020 [facility] mg/dL 1:40 PM [facility] Comment: Recommended by National Cholesterol Education Program (ATP III) -------- Cholesterol Ranges -------- <200 ?Desirable 200-239 ? Borderline high >=240 ? High Triglycerides 68 0 - 149 mg/dL 10/06/2020 1:40 PM [facility] Comment: -------- TRIG Ranges -------- <150 ?Normal 150-199 ? Borderline high 200-499 ? High >=500 ? Very high HDL 47 40 - 250 mg/dL 10/06/2020 1:40 PM [facility] Comment: -------- HDL Ranges -------- <40 ?Low 40-59 ?Normal >=60 ? Optimal LDL Calculated 180 (H) 0 - 99 mg/dL 10/06/2020 1:40 PM [facility] Comment: -------- LDL Ranges -------- <100 ? Optimal 100-129 ?Near optimal/above op timal 130-159 ?Borderline high 160-189 ?High >=190 ?Very high Fasting? Yes 10/06/2020 8:42 AM [facility] Specimen Anatomical Collection Method Collection Time Receive d Time (Source) Location / / Volume Laterality Blood 10/06/2020 8:38 AM SCHOOL HEALTH AIDE 12:47 PM SCHOOL HEALTH AIDE Shelley Porter MD LAB BLOOD ORDERABLES Performing Organization Address City/State/ZIP Code Phon e Number [facility] [address] [place] [phone] Comprehensive metabolic panel (10/06/2020 8:38 AM SCHOOL HEALTH AIDE) P athologist Signature Total Protein 7.5 6.3 - 8.2 10/06/2020 [facility] g/dL 1:40 PM [facility] Albumin, Serum 4.2 3.5 - 5.0 10/06/2020 [facility] g/dL 1:40 PM [facility] Total Bilirubin <0.7 0.1 - 1.0 10/06/2020 [facility] mg/dL 1:40 PM [facility] AST 29 8 - 43 U/L 10/06/2020 [facility] 1:40 PM [facility] Alkaline 99 38 - 128 10/06/2020 [facility] Phosphatase U/L 1:40 PM [facility] ALT (SGPT) 28 0 - 34 U/L 10/06/2020 [facility] 1:40 PM [facility] Sodium 138 135 - 145 10/06/2020 [facility] mEq/L 1:40 PM [facility] Potassium 4.0 3.5 - 5.1 10/06/2020 [facility] mEq/L 1:40 PM [facility] Chloride 104 98 - 107 10/06/2020 [facility] mEq/L 1:40 PM [facility] CO2 27 22 - 29 10/06/2020 [facility] mmol/L 1:40 PM [facility] BUN 14 5 - 25 10/06/2020 [facility] mg/dL 1:40 PM [facility] Creatinine 0.6 0.4 - 1.2 10/06/2020 [facility] mg/dL 1:40 PM [facility] Glucose 90 70 - 100 10/06/2020 [facility] mg/dL 1:40 PM [facility] Calcium, Total,S 8.6 8.4 - 10.2 10/06/2020 [facility] mg/dL 1:40 PM [facility] Specimen Anatomical Collection Method Collection Time Receive d Time (Source) Location / / Volume Laterality Blood 10/06/2020 8:38 AM SCHOOL HEALTH AIDE 12:47 PM SCHOOL HEALTH AIDE Shelley Porter MD LAB BLOOD ORDERABLES Performing Organization Address City/State/ZIP Code Phon e Number [facility] [address] [place] [address] documented in this encounter Visit Diagnoses Diagnosis Essential hypertension - Primary Unspecified essential hypertension Mixed hyperlipidemia Osteopenia, unspecified location documented in this encounter Care Teams Manager Programs Relationship Specialty Start Date End Date Shelley Porter MD PCP - General Family Medicine 04/19/20 documented as of this encounter
--- OUTSIDE RECORDS SUMMARY | 2022-05-25 09:10 | XMS_ITS | Encounter Summary ---
:1955 Author Organization [facility] Address [address] [place] [address] Care Team Providers Name Role Phone Irina Pham APRN, JOE Primary Care Provider [phone] Reason for Visit Reason Comments Advice Only Consultation (Routine) - Closed Specialty Diagnoses / Procedures Referred By Contact Refer red To Contact Cardiology Diagnoses Essential hypertension Systolic murmur Irina Pham APRN, SUPPLY SPECIALIST [address] [place] [address] Referral ID Status Reason Start Date Expiration Date Visits V isits Requested Authorized [id number] Closed Specialty 06/12/2019 06/12/2020 1 1 Services Required Encounter Details Date Type Department Care Team Description 08/28/2019 Consult [place] Shivam De La O MD Murmur, heart (Primary Dx); [address] Bilateral carotid bruits; [place], [place] [address] Essential hypertension; [phone] Palpitations Social History Tobacco Use Types Packs/Day [...] Comments Blood Pressure 138/88 08/28/2019 10:32 AM REMOTE OPERATIONS PRODUCER Pulse 66 08/28/2019 10:32 AM REMOTE OPERATIONS PRODUCER Temperature 36.8 ??C (98.2 ??F) 08/28/2019 10:32 AM REMOTE OPERATIONS PRODUCER Respiratory Rate 16 08/28/2019 10:32 AM REMOTE OPERATIONS PRODUCER Oxygen Saturation 98% 08/28/2019 10:32 AM REMOTE OPERATIONS PRODUCER Inhaled Oxygen Concentration - - Weight 100 kg (220 lb 14.4 oz) 08/28/2019 10:32 AM REMOTE OPERATIONS PRODUCER Height 150 cm (4' 11.06) 08/28/2019 10:32 AM REMOTE OPERATIONS PRODUCER Body Mass Index 44.53 08/28/2019 10:32 AM REMOTE OPERATIONS PRODUCER documented in this encounter Patient Instructions Patient [...] clinic and we can make appropriate recommendations. TE OPERATIONS PRODUCER documented in this encounter Progress Notes Shivam De La O MD - 08/28/2019 10:20 AM CST Consultation Patient ID: Colleen Tolentino is a 64 y.o. female. Referring Provider: Irina Pham APRN, CNP HPI This 64-year-old female is seen in initial Cardiology Consultation with the [facility] cardiology group with concerns about her [...] impacted by recent psychosocial stressors with her [id number] having been quite ill resulting in her [...] panic attacks question related to her ill [id number] since this past late winter/early spring. Additionally [...] us and we can make appropriate arrangements. TE OPERATIONS PRODUCER documented in this encounter Plan of Treatment Not on filedocumented as of this encounter Visit Diagnoses Diagnosis Murmur, heart - Primary Undiagnosed cardiac murmurs Bilateral carotid bruits Essential hypertension Unspecified essential hypertension Palpitations documented in this encounter Care Teams Boring And Filling Machine Operator Relationship Specialty Start Date End Date Irina Pham APRN, SUPPLY SPECIALIST PCP - General Family Medicine 07/29/18 04/18/[address] [place] [address] documented as of this encounter
--- OUTSIDE RECORDS SUMMARY | 2022-05-25 09:10 | XMS_ITS | Encounter Summary ---
:1955 Author Organization [facility] Address [address] [place] [address] Care Team Providers Name Role Phone Shelley Porter MD Primary Care Provider Unavailable Reason for Visit Reason Onset Date Comments Med Refill 01/25/2021 Encounter Details Date Type Department Care Team Description 01/25/2021 Refill Shelley Bates, Essential hypertension [address] [place] [address] Social History Tobacco Use Types Packs/Day Years [...] hypertension documented in this encounter Care Teams Student Union Consultant Relationship Specialty Start Date End Date Shelley Porter MD PCP - General Family Medicine 04/19/20 documented as of this encounter
--- OUTSIDE RECORDS SUMMARY | 2022-05-25 09:10 | XMS_ITS | Encounter Summary ---
:1955 Author Organization [facility] Address [address] [place] [address] Care Team Providers Name Role Phone Shelley Porter MD Primary Care Provider Unavailable Encounter Details Date Type Department Care Team Description 10/11/2020 Orders Only Shelley Bates Pure hypercholesterolemia [address] [facility] Fernando Centeno MD (Primary Dx) [place] [address] Social History Tobacco Use Types Packs/Day Years [...] Primary documented in this encounter Care Teams Climatology Professor Relationship Specialty Start Date End Date Shelley Porter MD PCP - General Family Medicine 04/19/20 documented as of this encounter
--- OUTSIDE RECORDS SUMMARY | 2022-05-25 09:10 | XMS_ITS | Encounter Summary ---
:1955 Author Organization [facility] Address [address] [place] [address] Care Team Providers Name Role Phone Shelley Porter MD Primary Care Provider Unavailable Reason for Visit Reason Onset Date Comments med refills 01/25/2021 Encounter Details Date Type Department Care Team Description 01/25/2021 Telephone Shelley Bates MD med refills [address] [place] [address] Social History Tobacco Use Types Packs/Day Years [...] on filedocumented in this encounter Care Teams Engineering Technical Writer Relationship Specialty Start Date End Date Shelley Porter MD PCP - General Family Medicine 04/19/20 documented as of this encounter
--- OUTSIDE RECORDS SUMMARY | 2022-05-25 09:10 | XMS_ITS | Encounter Summary ---
:1955 Author Organization [facility] Address [address] [place] [address] Care Team Providers Name Role Phone None, Pcp Primary Care Provider Unavailable Reason for Visit Reason Comments Med Refill Encounter Details Date Type Department Care Team Description 01/25/2021 Refill [place] Shelley Porter, Essential hypertension [address] [place], [place] [address] Social History Tobacco Use [...] hypertension documented in this encounter Care Teams Director Television Relationship Specialty Start Date End Date None, Pcp PCP - General 10/19/21 [address] [place] [address] documented as of this encounter
--- OUTSIDE RECORDS SUMMARY | 2022-05-25 09:10 | XMS_ITS | Encounter Summary ---
:1955 Author Organization [facility] Address [address] [place] [address] Care Team Providers Name Role Phone Irina Pham APRN, CNP Primary Care Provider [phone] Encounter Details Date Type Department Care Team Description 08/22/2019 Orders Only [place] Irina Pham Essential hypertension [address] M, JOE JUNG (Primary Dx) [place], [place] 100 [facility] [address] [place] [address] Social History Tobacco Use Types Packs/Day Years [...] hypertension documented in this encounter Care Teams Shoe Trimmer Relationship Specialty Start Date End Date Irina Pham APRN, CNP PCP - General Family Medicine 07/29/18 04/18/20 [address] [place] [address] documented as of this encounter
--- OUTSIDE RECORDS SUMMARY | 2022-05-25 09:10 | XMS_ITS | Encounter Summary ---
:[address] [facility] Address [address] [place] [address] Care Team Providers Name Role Phone Shelley Porter MD Primary Care Provider Unavailable Encounter Details Date Type Department Care Team Description 10/06/2020 Lab Tarik López Mixed hyperlipidemia; [address] Essential [place] [address] Social History Tobacco Use Types [...] hypert ension Results for this RATE AM [facility] procedure are i n the results section. LIPID PANEL Routine 10/06/2020 8:38 Mixed hyperlipidemia Resu lts for this AM [facility] procedure are i n the results section. COMPREHENSIVE Routine 10/06/2020 8:38 Essential hypertension R esults for this METABOLIC PANEL AM [facility] procedure ar e in the results section. documented in this encounter Results Glomerular filtration rate (GFR) (10/06/2020 8:38 AM [facility]) P athologist Signature GFR >60 10/06/2020 [facility] 1:40 PM [facility] >60 10/06/2020 [facility] [place] GFR 1:40 PM [facility] Comment: GFR calculated from serum creatinine v alue Chronic Kidney Disease less than 60 mL/m in/1.73 m2 Kidney Failure less than 15 mL/min/1.73 m2 Note: effective 01/02/07 IDMS-Traceable MDRD Study Equation used. Specimen Anatomical Collection Method Collection Time Receive d Time (Source) Location / / Volume Laterality 10/06/2020 8:38 AM 8:38 [facility] AM [facility] Shelley Porter MD LAB BLOOD ORDERABLES Performing Organization Address City/State/ZIP Code Phon e Number [facility] [address] [place] [address] Comprehensive metabolic panel (10/06/2020 8:38 AM [facility]) P athologist Signature Total Protein 7.5 6.3 - 8.2 10/06/2020 [facility] g/dL 1:40 PM [facility] Albumin, Serum 4.2 3.5 - 5.0 10/06/2020 [facility] g/dL 1:40 PM [facility] Total Bilirubin <0.7 0.1 - 1.0 10/06/2020 [facility] mg/dL 1:40 PM [facility] AST 29 8 - 43 U/L 10/06/2020 [facility] 1:40 PM [facility] Alkaline 99 38 - 128 10/06/2020 [facility] Phosphatase U/L 1:40 PM [facility] ALT (SGPT) 28 0 - 34 U/L 10/06/2020 [facility] 1:40 PM [facility] Sodium 138 135 - 145 10/06/2020 [facility] mEq/L 1:40 PM [facility] Potassium 4.0 3.5 - 5.1 10/06/2020 [facility] mEq/L 1:40 PM [facility] Chloride 104 98 - 107 10/06/2020 [facility] mEq/L 1:40 PM [facility] CO2 27 22 - 29 10/06/2020 [facility] mmol/L 1:40 PM [facility] BUN 14 5 - 25 10/06/2020 [facility] mg/dL 1:40 PM [facility] Creatinine 0.6 0.4 - 1.2 10/06/2020 [facility] mg/dL 1:40 PM [facility] Glucose 90 70 - 100 10/06/2020 [facility] mg/dL 1:40 PM [facility] Calcium, Total,S 8.6 8.4 - 10.2 10/06/2020 [facility] mg/dL 1:40 PM [facility] Specimen Anatomical Collection Method Collection Time Receive d Time (Source) Location / / Volume Laterality Blood 10/06/2020 8:38 AM [facility] 12:47 PM [facility] Shelley Porter MD LAB BLOOD ORDERABLES Performing Organization Address City/State/ZIP Code Phon e Number [facility] [address] [place] [address] (ABNORMAL) Lipid panel (10/06/2020 8:38 AM [facility]) athologist Signature Cholesterol 241 (H) 0 - 199 10/06/2020 [facility] mg/dL 1:40 PM [facility] Comment: Recommended by National Cholesterol Education Program (ATP III) -------- Cholesterol Ranges -------- <200 ?Desirable 200-239 ? Borderline high >=240 ? High Triglycerides 68 0 - 149 mg/dL 10/06/2020 1:40 PM [facility] Comment: -------- TRIG Ranges -------- <150 ?Normal 150-199 ? Borderline high 200-499 ? High >=500 ? Very high HDL 47 40 - 250 mg/dL 10/06/2020 1:40 PM [facility] Comment: -------- HDL Ranges -------- <40 ?Low 40-59 ?Normal >=60 ? Optimal LDL Calculated 180 (H) 0 - 99 mg/dL 10/06/2020 1:40 PM [facility] Comment: -------- LDL Ranges -------- <100 ? Optimal 100-129 ?Near optimal/above op timal 130-159 ?Borderline high 160-189 ?High >=190 ?Very high Fasting? Yes 10/06/2020 8:42 AM [facility] Specimen Anatomical Collection Method Collection Time Receive d Time (Source) Location / / Volume Laterality Blood 10/06/2020 8:38 AM [facility] 12:47 PM [facility] Shelley Porter MD LAB BLOOD ORDERABLES Performing Organization Address City/State/ZIP Code Phon e Number [facility] [address] [place] [address] documented in this encounter Visit Diagnoses Diagnosis Mixed hyperlipidemia Essential hypertension Unspecified essential hypertension documented in this encounter Care Teams Refrigeration System Installer Relationship Specialty Start Date End Date Shelley Porter MD PCP - General Family Medicine 04/19/20 documented as of this encounter
--- OUTSIDE RECORDS SUMMARY | 2022-05-25 09:10 | XMS_ITS | Clinical Summary ---
:1955 Author Organization [facility] Address [address] [place] [address] Care Team Providers Name Role Phone None, [...] Noted Date History of colonoscopy 04/29/2020 Overview: [facility] 01/26/2011, normal, repeat 10 years. Murmur, heart 08/28/2019 Bilateral carotid bruits 08/28/2019 Essential hypertension 08/28/2019 Palpitations 08/28/2019 Obesity 08/14/2017 Hyperlipidemia 08/08/2012 Osteopenia 06/27/2012 Overview: Bone density at [facility] in 2011. Immunizations Name Administration Dates Next [...] Health Maintenance Due Date Last Done Comments CT Colonography 1955 Colonoscopy 1955 Colorectal Cancer Screening 1955 FIT-DNA 1955 Glaucoma Screening 67+ Yr 1955 Sigmoidoscopy 1955 iFOBT 1955 Fall Risk Performed 1972 Zoster Vaccines (1 of 2) 2004 Pneumococcal Vaccine: 65+ 2019 Years (1 - PCV) COVID-19 Vaccine (4 - Booster 11/25/2021 07/27/2021, for Pfizer series) 11/22/2020, 10/28/2020 Mammogram 06/24/2022 06/24/2021, 12/09/2018 HPV Vaccines Aged Out No longer eligib le based on patient's age to complete this to [facility] Insurance Payer Benefit Plan / Subscriber ID Effective Dates Phone Addre ss Type Group BCBS OF BCBS OF [id number] 2017-Gage Giang [address] [place] [address] Care Teams Oil Filters Inspector Relationship Specialty Start Date End Date None, Pcp PCP - General 10/19/[address] [place] [phone]
--- OUTSIDE RECORDS SUMMARY | 2022-05-25 09:10 | XMS_ITS | Encounter Summary ---
:1955 Author Organization [facility] Address [address] [place] [address] Care Team Providers Name Role Phone Irina Pham APRN, JOE Primary Care Provider [phone] Reason for Visit Reason Comments Blood Pressure Check Encounter Details Date Type Department Care Team Description 10/03/2019 Clinical Support [place] [address] [place], [place] [address] Social History Tobacco Use [...] Comments Blood Pressure 139/70 10/03/2019 2:51 PM MEDICAL SECRETARY RECEPTIONIST Pulse 78 10/03/2019 2:51 PM MEDICAL SECRETARY RECEPTIONIST Temperature - - Respiratory Rate - - Oxygen Saturation - - Inhaled Oxygen Concentration - - Weight - - Height - - Body Mass Index - - documented in this encounter Plan of Treatment Not on filedocumented as of this encounter Visit Diagnoses Not on filedocumented in this encounter Care Teams Upper Doubler Relationship Specialty Start Date End Date Irina Pham APRN, DAIRY NUTRITION CONSULTANT PCP - General Family Medicine 07/29/18 04/18/20 [address] [place] [address] documented as of this encounter
--- OUTSIDE RECORDS SUMMARY | 2022-05-25 09:10 | XMS_ITS | Encounter Summary ---
:[address] [facility] Address [address] [place] [address] Care Team Providers Name Role Phone Shelley Porter MD Primary Care Provider Unavailable Reason for Visit Reason Comments Blood Pressure Check Encounter Details Date Type Department Care Team Description 01/25/2021 Clinical Support [address] [address] Social History Tobacco Use Types Packs/Day Years [...] on filedocumented in this encounter Care Teams Grade Setter Relationship Specialty Start Date End Date Shelley Porter MD PCP - General Family Medicine 04/19/20 documented as of this encounter
--- OUTSIDE RECORDS SUMMARY | 2022-05-25 09:11 | XMS_ITS | Encounter Summary ---
:[address] [facility] Address [address] [place] [address] Care Team Providers Name Role Phone Irina Pham APRN, PROGRAM OR PROJECT ADMINISTRATOR Primary Care Provider Encounter Details Date Type Department Care Team Description 11/12/2018 Lab Volodymyr López Palpitations; [address] Screening, anemia, deficienc y, iron; Volodymyr López [place] [address] Hyperlipidemia, unspecified hyperlipidemia type [phone] Social History Tobacco Use Types Packs/Day Years [...] AM CDT) athologist Signature GFR >60 11/12/2018 [facility] 9:36 AM CDT [facility]ENTER LAB[facility]ORY >60 11/12/2018 [facility] Japanese GFR 9:36 AM CDT CENTER LAB[facility]ORY Comment: [...] Organization Address City/State/ZIP Code Phon e Number [facility] [address] [place] [address] TSH (11/12/2018 8:59 AM CDT) athologist Signature TSH, Sensitive 1.96 0.46 - 11/13/2018 [facility] 4.68 mIU/L 2:03 PM CDT CENTER [...] CNP LAB BLOOD ORDERABLES Performing Organization Address [facility] [address] [place] [address] T4, free (11/12/2018 8:59 AM CDT) P [...] CNP LAB BLOOD ORDERABLES Performing Organization Address [facility] [address] [place] [address] (ABNORMAL) T3 (11/12/2018 8:59 AM CDT) P [...] CDT 12:35 PM CDT Irina Pham APRN, PROGRAM OR PROJECT ADMINISTRATOR LAB BLOOD ORDERABLES Performing Organization Address City/State/ZIP Code Phon e Number [facility] [address] [place] [address] (ABNORMAL) Lipid panel (11/12/2018 8:59 AM CDT) athologist Signature Cholesterol 226 (A) 0 - 199 11/12/2018 [facility] mg/dL 1:26 PM T CENTER LAB[facility]ATORY Comment: Recommended by National Cholesterol Education Program (ATP III) -------- Cholesterol Ranges -------- <200 ? Desirable 200-239 ? Borderline high >=240 ? High Triglycerides 76 0 - 149 mg/dL 11/12/2018 1:26 PM CDT [facility] Comment: -------- TRIG Ranges -------- <150 ?Normal 150-199 ? Borderline high 200-499 ? High >=500 ? Very high HDL 54 40 - 60 mg/dL 11/12/2018 1:26 PM CDT [facility] Comment: -------- HDL Ranges -------- <40 ?Low 40-59 ?Normal >=60 ? Optimal LDL Calculated 157 (A) 0 - 99 mg/dL 11/12/2018 1:26 PM CDT [facility] Comment: -------- LDL Ranges -------- <100 ? Optimal 100-129 ?Near optimal/above op timal 130-159 ?Borderline high 160-189 ?High >=190 ?Very high Specimen Anatomical Collection Method Collection Time Receive d Time (Source) Location / / Volume Laterality Blood (Blood, 11/12/2018 8:59 AM 11/13/19 19 Venous) CDT 12:58 PM CDT Irina Pham APRN, PROGRAM OR PROJECT ADMINISTRATOR LAB BLOOD ORDERABLES Performing Organization Address City/State/ZIP Code Phon e Number [facility] [address] [place] [address] CBC Branch Off w/Diff (11/12/2018 8:59 AM [...] CDT [place] Granulocytes/Khadra 59.0 45.8 - 11/12/2018 [facility] trophils 73.7 % 9:36 AM CDT [place] Lymphocytes 2.1 0.9 - 2.9 11/12/2018 [facility] Absolute K/uL 9:36 AM CDT [place] MIDS Absolute 0.4 0.2 - 0.8 11/12/2018 [facility] K/uL 9:36 AM CDT [place] Granulocytes/Khadra 3.5 2.1 - 8.7 11/12/2018 [facility] trophils K/uL 9:36 AM CDT [place] Absolute Specimen Anatomical Collection Method Collection Time Receive d Time (Source) Location / / Volume Laterality Blood (Blood, 11/12/2018 8:59 AM 11/13/19 19 9:12 Venous) CDT AM CDT Irina Pham APRN, PROGRAM OR PROJECT ADMINISTRATOR LAB BLOOD ORDERABLES Performing Organization Address City/State/ZIP Code Phon e Number [facility] [place] [address] [place] [address] Basic metabolic panel (11/12/2018 8:59 AM CDT) P athologist Signature Sodium 139 135 - 145 11/12/2018 [facility] mmol/L 9:36 AM CDT [place] Potassium 3.5 3.5 - 5.1 11/12/2018 [facility] mmol/L 9:36 AM CDT [place] Comment: . Chloride 104 98 - 107 mmol/L 11/12/2018 9:36 AM CDT [facility] [place] Comment: . CO2 27 22 - 29 mmol/L 11/12/2018 9:36 AM CDT [facility] [place] Comment: . Creatinine 0.5 0.4 - 1.2 mg/dL 11/12/2018 9:36 AM CDT [facility] [place] Comment: . BUN 10 5 - 25 mg/dL 11/12/2018 9:36 AM CDT [facility] [place] Comment: . Glucose 85 70 - 100 mg/dL 11/12/2018 9:36 AM CDT C [place] Calcium, Total,S 9.3 8.4 - 10.2 mg/dL 11/12/2018 9:36 AM CDT [facility] [place] Comment: . Fasting? Yes 11/12/2018 9:12 AM CDT [facility] [place] Specimen Anatomical Collection Method Collection Time Receive d Time (Source) Location / / Volume Laterality Blood (Blood, 11/12/2018 8:59 AM 11/13/19 19 9:12 Venous) CDT AM CDT Irina Pham APRN, JOE LAB BLOOD ORDERABLES Performing Organization Address City/State/ZIP Code Phon e Number [facility] [address] [place] [address] documented in this encounter Visit Diagnoses Diagnosis Palpitations Screening, anemia, deficiency, iron Screening for iron deficiency anemia Hyperlipidemia, unspecified hyperlipidem ia type documented in this encounter Care Teams Phonograph Needle Tip Maker Relationship Specialty Start Date End Date Irina Pham APRN, PROGRAM OR PROJECT ADMINISTRATOR PCP - General Family Medicine 07/29/18 04/18/[address] [place] [address] [place] [address] documented as of this encounter
--- OUTSIDE RECORDS SUMMARY | 2022-05-25 09:11 | XMS_ITS | Encounter Summary ---
:1955 Author Organization [facility] Address [address] [place] [address] Care Team Providers Name Role Phone Irina Pham APRN, CNP Primary Care Provider [phone] Reason for Visit Reason Comments Personal Problem Encounter Details Date Type Department Care Team Description 07/29/2018 Office Visit Tarik López Irina Pham Stress at home [address] M, JOE JUNG (Primary Dx) [place], [place] [address] [facility] [address] [address] [address] [place] [address] Social History Tobacco Use Types Packs/Day Years [...] Comments Blood Pressure 136/84 07/29/2018 9:35 AM DISTRIBUTION OPERATION SUPERVISOR Pulse 79 07/29/2018 9:35 AM DISTRIBUTION OPERATION SUPERVISOR Temperature 36.5 ??C (97.7 ??F) 07/29/2018 9:35 AM DISTRIBUTION OPERATION SUPERVISOR Respiratory Rate 16 07/29/2018 9:35 AM DISTRIBUTION OPERATION SUPERVISOR Oxygen Saturation 97% 07/29/2018 9:35 AM DISTRIBUTION OPERATION SUPERVISOR Inhaled Oxygen Concentration - - Weight - - Height 159 cm (5' 2.6) 07/29/2018 9:35 AM DISTRIBUTION OPERATION SUPERVISOR Body Mass Index - - documented in this encounter Patient Instructions Patient InstructionsChmer Pham APRN, CNP - 07/29/2018 9:20 AM DISTRIBUTION OPERATION SUPERVISOR Recommend exercise, healthy diet, and plenty of rest Recommend [facility] in [place], [place] RIBUTION OPERATION SUPERVISOR documented in this encounter Progress Notes Irina [...] and her Alex, adopted 2 children from [facility],when they were young. The mother reports her [...] The patient son is 11th grade in [place], had a difficult time learning lastyear, reflected [...] healthy, exercise, and will be going to [employer], after this clinical appointment to maintain [...] plan of care. Irina Pham APRN, JOE RIBUTION OPERATION SUPERVISOR documented in this encounter Plan of Treatment Not on filedocumented as of this encounter Visit Diagnoses Diagnosis Stress at home - Primary documented in this encounter Care Teams Spring Layer Relationship Specialty Start Date End Date Irina Pham APRN, AUDIO/VISUAL OPERATOR PCP - General Family Medicine 07/29/18 04/18/20 [address] [facility] [place] [address] documented as of this encounter
--- OUTSIDE RECORDS SUMMARY | 2022-05-25 09:11 | XMS_ITS | Encounter Summary ---
:1955 Author Organization [facility] Address [address] [place] [address] Care Team Providers Name Role Phone Irina Pham APRN, CNP Primary Care Provider [phone] Reason for Referral Consultation (Routine) - Closed Specialty Diagnoses / Procedures Referred By Contact Refer red To Contact Diagnoses Bilateral carotid bruits Irina Pham, [facility] - [address] [address] [place] [address] Phone: Fax: Referral ID Status Reason Start Date Expiration Date Visits Requ ested Visits Authorized [id number] Closed 06/12/2019 06/12/2020 1 1 Consultation (Routine) - Closed Specialty Diagnoses / Procedures Referred By Contact Refer red To Contact Cardiology Diagnoses Essential hypertension Systolic murmur Irina Pham APRN, CNP [address] [place] [address] Referral ID Status Reason Start Date Expiration Date Visits V isits Requested Authorized [id number] Closed Specialty 06/12/2019 06/12/2020 1 1 Services Required Scheduling Instructions Please call the Testing Specialist stevo gillespie at [phone]. [phone] to schedule an appointment. Please schedule in Tarik cortez. Cardiac (Routine) - Closed Specialty Diagnoses / Procedures Referred By Contact Refer red To Contact Cardiology Diagnoses Systolic murmur Essential hypertension Irina Pham, Stan Echocardiogram 2D complete with spec and color form doppler JOE JUNG [address] [place] [address] Referral ID Status Reason Start Date Expiration Date Visits Requ ested Visits Authorized [id number] Closed 06/12/2019 12/09/2019 1 1 Reason for Visit Reason Comments Hypertension Encounter Details Date Type Department Care Team Description 06/12/2019 Office Visit Tarik López Irina Pham Essential hypertension (Prim dylan Dx); [address] M, JOE JUNG Systolic murmur; KRISTINE Giron [address] Bilateral carotid bruits [address] [place] [address] [phone] Social History Tobacco Use Types Packs/Day Years [...] AM CDT Echocardiogram and cardiology appointment in [place] Lisinopril 5 mg daily Consider carotid ultrasound [...] 2 teenage boys, whom [facility]. The patient reports one of her sons [...] will obtain a bilateral carotid ultrasound at [facility] in [place] prior to that appointment, which she decided [...] for this COMPLETE WITH SPEC AND AM CONCERT PIANIST Essential proce dure are in COLOR FORM DOPPLER hypertension the resul ts section. documented in this encounter Results Echocardiogram 2D complete with spec and color form doppler (07/03/2019 10:00 AM CONCERT PIANIST) Anatomical Region Laterality Modality Ultrasound Specimen (Source) Anatomical Collection Method Collection Time Re ceived Time Location / / Volume Laterality 07/03/2019 10:00 AM CONCERT PIANIST Narrative This result has an attachment that is no t available. Irina Pham APRN, CNP CV ECHO PROCEDURES documented in this encounter Visit Diagnoses Diagnosis Essential hypertension - Primary Unspecified essential hypertension Systolic murmur Undiagnosed cardiac murmurs Bilateral carotid bruits documented in this encounter Care Teams Manager Harbor Relationship Specialty Start Date End Date Irina Pham APRN, LOGISTICS RESEARCH ENGINEER PCP - General Family Medicine 07/29/18 04/18/20 100 [facility] [place] [address] documented as of this encounter
--- OUTSIDE RECORDS SUMMARY | 2022-05-25 09:11 | XMS_ITS | Encounter Summary ---
:1955 Author Organization [facility] Address [address] [place] [address] Care Team Providers Name Role Phone Irina Pham APRN, CNP Primary Care Provider [phone] Reason for Referral Consultation (Routine) - Closed Specialty Diagnoses / Procedures Referred By Contact Refer red To Contact Cardiology Diagnoses Systolic murmur Irina Pham APRN TUG MASTER [address] [place] [address] Referral ID Status Reason Start Date Expiration Date Visits V isits Requested Authorized [id number] Closed Specialty 11/13/2018 11/14/2019 1 1 Services Required Scheduling Instructions Please call the Director Heart stevo gillespie at [phone]. [phone] to schedule an appointment. Please schedule in Tarik cortez. Mayra, Alex Consultation (Routine) - Closed Specialty Diagnoses / Procedures Referred By Contact Refer red To Contact Diagnoses Philippe's neuroma of right foot Irina Pham, [facility] [place] FABIANA, TUG MASTER [address] [facility] [address] [place] [address] Fax: Referral ID Status Reason Start Date Expiration Date Visits Requ ested Visits Authorized [id number] Closed 11/13/2018 11/14/2019 1 1 Reason for Visit Reason Comments Consult Encounter Details Date Type Department Care Team Description 11/12/2018 Office Visit Tarik López Irina Pham Palpitations (Primary Dx); [address] M, [place] Systolic murmur; KRISTINE Giron [address] Hyperlipidemia, unspecified hyperlipidem ia type; [address] KRISTINE [place] Dyspnea on exertion; [phone] Philippe's neuroma of right foot; [phone] Screening, anem ia, deficiency, iron (Work) Social [...] AM CDT Please schedule your mammogram in [place] Will call with the lab results Referral to podiatry to [place] [facility] referal documented in this encounter Progress [...] most. She previously had this evaluated at [facility] in [place] and would like a referral to have this reevaluated. 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 The patient reports she had left [...] with her teenage son's choices, and a emuboi-sq-tbz whowas diagnosed with incurable brain cancer 3 [...] and a referral has been sent to [facility]. The patient will be notified of her lab results and further recommendations. Encouraged a DEXA scan every 2 years, particularly with her family history, which she can consider. The patient agrees to schedule her mammogram at [place] in [place]. The patient agrees and understands this plan [...] Signature Sodium 139 135 - 145 11/12/2018 [facility] [place] mmol/L 9:36 AM CDT [place] Potassium 3.5 3.5 - 5.1 11/12/2018 [facility] [place] mmol/L 9:36 AM CDT [place] Comment: . Chloride 104 98 - 107 mmol/L 11/12/2018 9:36 AM CDT O [place] Comment: . CO2 27 22 - 29 mmol/L 11/12/2018 9:36 AM CDT OM C [place] Comment: . Creatinine 0.5 0.4 - 1.2 mg/dL 11/12/2018 9:36 AM CDT [facility] [place] Comment: . BUN 10 5 - 25 mg/dL 11/12/2018 9:36 AM CDT C [place] Comment: . Glucose 85 70 - 100 mg/dL 11/12/2018 9:36 AM CDT C [place] Calcium, Total,S 9.3 8.4 - 10.2 mg/dL 11/12/2018 9:36 AM CDT [facility] [place] Comment: . Fasting? Yes 11/12/2018 9:12 AM CDT [facility] CAN NON [place] Specimen Anatomical Collection Method Collection Time Receive d Time (Source) Location / / Volume Laterality Blood (Blood, 11/12/2018 8:59 AM 11/13/19 19 9:12 Venous) CDT AM CDT Irina Pham APRN, TUG MASTER LAB BLOOD ORDERABLES Performing Organization Address City/State/ZIP Code Phon e Number [facility] [place] [address] [place] [address] CBC Branch Off w/Diff (11/12/2018 8:59 AM CDT) P athologist Signature WBC 6.0 3.5 - 10.5 11/12/2018 [facility] [place] K/uL 9:36 AM CDT [place] RBC 4.62 3.90 - 11/12/2018 [facility] [place] 5.00 M/uL 9:36 AM CDT [place] Hemoglobin 13.8 12.0 - 11/12/2018 [facility] [place] 15.5 g/dL 9:36 AM CDT [place] Hematocrit 41.1 35.0 - 11/12/2018 C [place] 44.0 % 9:36 AM CDT [place] Platelets 196 150 - 450 11/12/2018 [facility] [place] K/uL 9:36 AM CDT [place] MCV 89.0 81.6 - 11/12/2018 [facility] [place] 98.3 fL 9:36 AM CDT [place] MCH 29.9 26.0 - 11/12/2018 [facility] [place] 32.0 pg 9:36 AM CDT [place] MCHC 33.6 32.0 - 11/12/2018 [facility] [place] 36.0 g/dL 9:36 AM CDT [place] RDW 13.4 11.9 - 11/12/2018 [facility] [place] 15.5 % 9:36 AM CDT [place] Lymphocytes % 34.5 18.0 - 11/12/2018 [facility] [place] 45.0 % 9:36 AM CDT [place] Mid-size Cells 6.5 3.3 - 10.1 11/12/2018 [facility] [place] % 9:36 AM CDT [place] Granulocytes/Khadra 59.0 45.8 - 11/12/2018 [facility] [place] trophils 73.7 % 9:36 AM CDT [place] Lymphocytes 2.1 0.9 - 2.9 11/12/2018 [facility] [place] Absolute K/uL 9:36 AM CDT [place] MIDS Absolute 0.4 0.2 - 0.8 11/12/2018 [facility] [place] K/uL 9:36 AM CDT [place] Granulocytes/Khadra 3.5 2.1 - 8.7 11/12/2018 [facility] [place] trophils K/uL 9:36 AM CDT [place] Absolute Specimen Anatomical Collection Method Collection Time Receive d Time (Source) Location / / Volume Laterality Blood (Blood, 11/12/2018 8:59 AM 11/13/19 19 9:12 Venous) CDT AM CDT Irina Pham APRN, TUG MASTER LAB BLOOD ORDERABLES Performing Organization Address City/State/ZIP Code Phon e Number [facility] [place] [address] [place] [address] (ABNORMAL) Lipid panel (11/12/2018 8:59 AM CDT) P athologist Signature Cholesterol 226 (A) 0 - 199 11/12/2018 [facility] mg/dL 1:26 PM CDT [facility] Comment: Recommended by National Cholesterol Education Program (ATP III) -------- Cholesterol Ranges -------- <200 ? Desirable 200-239 ? Borderline high >=240 ? High Triglycerides 76 0 - 149 mg/dL 11/12/2018 1:26 PM CDT [facility] Comment: -------- TRIG Ranges -------- <150 ?Normal 150-199 ? Borderline high 200-499 ? High >=500 ? Very high HDL 54 40 - 60 mg/dL 11/12/2018 1:26 PM CDT [facility] Comment: -------- HDL Ranges -------- <40 ?Low 40-59 ?Normal >=60 ? Optimal LDL Calculated 157 (A) 0 - 99 mg/dL 11/12/2018 1:26 PM CDT [facility] Comment: -------- LDL Ranges -------- <100 ? Optimal 100-129 ?Near optimal/above op timal 130-159 ?Borderline high 160-189 ?High >=190 ?Very high Specimen Anatomical Collection Method Collection Time Receive d Time (Source) Location / / Volume Laterality Blood (Blood, 11/12/2018 8:59 AM 11/13/19 19 Venous) CDT 12:58 PM CDT Irina Pham APRN, TUG MASTER LAB BLOOD ORDERABLES Performing Organization Address City/State/ZIP Code Phon e Number [facility] [address] [place] [address] (ABNORMAL) T3 (11/12/2018 8:59 AM CDT) P athologist Signature T3, Total 1.97 (H) 0.97 - 1.69 11/13/2018 [facility] ng/mL 2:03 PM CDT [facility] Comment: [...] CNP LAB BLOOD ORDERABLES Performing Organization Address [facility] Phon e Number [facility] [address] [place] [address] T4, free (11/12/2018 8:59 AM CDT) athologist [...] JOE LAB BLOOD ORDERABLES Performing Organization Address [facility] Phon e Number [facility] [address] [place] [address] TSH (11/12/2018 8:59 AM CDT) P athologist [...] Organization Address City/State/ZIP Code Phon e Number [facility] [address] [place] [address] documented in this encounter Visit Diagnoses Diagnosis Palpitations - Primary Systolic murmur Undiagnosed cardiac murmurs Hyperlipidemia, unspecified hyperlipidem ia type Dyspnea on exertion Other dyspnea and respiratory abnormalit y Philippe's neuroma of right foot Screening, anemia, deficiency, iron Screening for iron deficiency anemia documented in this encounter Care Teams Chemical Laboratory Assistant Relationship Specialty Start Date End Date Irina Pham APRN, TUG MASTER PCP - General Family Medicine 07/29/18 04/18/20 [address] [place] [address] documented as of this encounter
--- OUTSIDE RECORDS SUMMARY | 2022-05-25 09:11 | XMS_ITS | Encounter Summary ---
:1955 Author Organization [facility] Address [address] [place] [address] Care Team Providers Name Role Phone Irina Pham FLUID DYNAMICIST, PROMOTIONS SPECIALIST Primary Care Provider [phone] Reason for Visit Reason Onset Date Comments fax 06/12/2019 Encounter Details Date Type Department Care Team Description 06/12/2019 Telephone [place] Irina Pham, fax [address] FLUID DYNAMICIST, PROMOTIONS SPECIALIST [place], [place] [address] [address] [facility] [address] [phone] [place], [place] [address] Social History Tobacco Use [...] CST Referral and face sheet faxed to [facility] radiology as requested. NTATION & MOBILITY SPECIALIST Telephone Encounter - Yuki Cornejo RN - 06/23/2019 1:47 PM CST Please refax referral. NTATION & MOBILITY SPECIALIST Telephone Encounter - Anabel Kimbrough LPN - 06/12/2019 11:49 AM CDT noted Telephone Encounter - Ana Mckenna - 06/12/2019 11:20 AM CDT Referral and face sheet faxed to [facility] radiology as requested. Telephone Encounter - Yuki Cornejo RN - 06/12/2019 11:09 AM CDT Please fax order to [facility] Tarik López. documented in this encounter Plan of Treatment Not on filedocumented as of this encounter Visit Diagnoses Not on filedocumented in this encounter Care Teams Hub Cutter Relationship Specialty Start Date End Date Irina Pham, FLUID DYNAMICIST, PROMOTIONS SPECIALIST PCP - General Family Medicine 07/29/18 04/18/[address] [place] [address] documented as of this encounter
--- OUTSIDE RECORDS SUMMARY | 2022-05-25 09:11 | XMS_ITS | Encounter Summary ---
:1955 Author Organization [facility] Address [address] [place] [address] Care Team Providers Name Role Phone Irina Pham APRN, DIAL MARKER Primary Care Provider [phone] Reason for Visit Reason Comments Blood Pressure Check Encounter Details Date Type Department Care Team Description 08/22/2019 Clinical Support [place] [address] [place], [place] [address] Social History Tobacco Use [...] Comments Blood Pressure 138/82 08/22/2019 2:39 PM LACEMAKER Pulse 64 08/22/2019 2:39 PM LACEMAKER Temperature - - Respiratory Rate - - [...] come back in for a recheck BP? MAKER Irina Pham APRN, CNP - 08/22/2019 2:30 PM CST Contacted the patient, lisinopril 2.5 mg daily would be just fine, and if she would like me to send in the prescription I be happy to do so. MAKER documented in this encounter Plan of Treatment Not on filedocumented as of this encounter Visit Diagnoses Not on filedocumented in this encounter Care Teams Service Plumber Relationship Specialty Start Date End Date Irina Pham APRN, JOE PCP - General Family Medicine 07/29/18 04/18/[address] [place] [address] KRISTINE MORA [address] documented as of this encounter
--- OUTSIDE RECORDS SUMMARY | 2022-05-25 09:11 | XMS_ITS | Encounter Summary ---
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 She does have an upcoming appointment scheduled with cardiology. APPLICATION DEVELOPER documented in this encounter Plan of Treatment Not on filedocumented as of this encounter Visit Diagnoses Not on filedocumented in this encounter Care Teams Kiln Loader Relationship Specialty Start Date End Date Irina Pham APRN, QUALITY INTERNSHIP PCP - General Family Medicine 07/29/18 04/18/20 100 [facility] [place] [address] documented as of this encounter
--- OUTSIDE RECORDS SUMMARY | 2022-05-25 09:11 | XMS_ITS | Encounter Summary ---
:1955 Author Organization [facility] Address [address] [place] [address] Care Team Providers Name Role Phone Irina Pham APRN, CNP Primary Care Provider [phone] Encounter Details Date Type Department Care Team Description 12/10/2018 Telephone [place] Irina Pham, [address] [place], [place] [address] [address] [facility] [phone] [place], [place] [address] Social History Tobacco Use [...] on filedocumented in this encounter Care Teams Dredge Captain Relationship Specialty Start Date End Date Irina Pham APRN, CNP PCP - General Family Medicine 07/29/18 04/18/20 100 [facility] [place], [place]ST[place] [address] documented as of this encounter
--- NOTE | 2022-05-25 10:00 | CRLHL7_ITS ---
For Patients: As a result of the Century Cures Act, medical imaging exams and procedure reports are released immediately into your electronic medical record. You may view this report before your referring provider. If you have questions, please contact your health care provider. Indication: Thoracic back pain Technique: Contrast CT chest abdomen and pelvis Comparison: No comparison Findings: Normal caliber thoracic aorta. Heart size is mildly enlarged with no pericardial effusion or mediastinal or hilar adenopathy. 7 millimeter pulmonary nodule left upper lobe on series 3, image 41. 6 millimeter pulmonary nodule left lower lobe on series 2, image 52. 1.1 centimeter pulmonary nodule in the left lower lobe with central density this probably reflects a granuloma. A few additional smaller pulmonary nodules are seen. Probable clustered middle lobe on series 2, image 50 The liver adrenal glands, pancreas unremarkable cholecystectomy biliary dilatation is there is a low-attenuation lesion adjacent to the gallbladder fossa with some rim density. Adrenal glands unremarkable pancreas is unremarkable. Normal caliber abdominal aorta and kidneys are unremarkable partially duplicated system on the right. Abundant stool in the colon normal appendix. Urinary bladder demonstrates minimal pericystic inflammatory change. No suspicious bony lesions. Left adnexal low-density lesion could be exophytic from the uterus or possible left ovarian lesion. No suspicious bony lesions are seen. Impression: 1. No definite acute findings in the chest abdomen or pelvis. 2. A few scattered pulmonary nodules measuring up to 7 millimeters. There is a 1.1 centimeter left lower lobe nodule with central density this likely reflects a developing granuloma. Findings could be infectious, inflammatory. Malignancy not completely excluded. Follow-up per Fleischner society guidelines. There is also clustered centrilobular nodules medial right lower lobe. This probably is infectious or inflammatory to include atypical infections. 3. Left adnexal low-density lesion could be the exophytically off the uterus or left ovarian lesion. Recommend pelvic ultrasound. Prominent endometrium could be assessed at the same time. Please note that all CT scans at this facility use dose modulation, iterative reconstruction, and/or weight-based dosing when appropriate to reduce radiation dose to as low as reasonably achievable. Dictated by Wendy [place] MD @ 05/25/2022 11:15:13 AM (Electronically Signed)
== END 2022-05-25 09:00 | disposition home or self-care (01) ==
LOC: CT 09:00
PROVIDERS: PCP Nurse Practitioner Family; Visit Provider Nurse Practitioner Family
DX: M54.6 Pain in thoracic spine (principal); R91.8 Other nonspecific abnormal finding of lung field; R93.89 Abnormal findings on diagnostic imaging of other specified body structures
CPT/HCPCS: 71260; 74177; Q9967

== ENCOUNTER 2022-06-20 12:41 | Outpatient (CLI) | payer BC, SELFPAY ==
--- OUTSIDE RECORDS SUMMARY | 2022-06-20 12:44 | XMS_ITS | Encounter Summary ---
:1955 Author Organization [facility] Address [address] [place] [address] Care Team Providers Name Role Phone Elsewhere, Pcp Primary Care Provider Unavailable Reason for Referral Outpatient (Routine) - Authorized Specialty Diagnoses / Procedures Referred By Contact Refer red To Contact Endocrinology Estrella Sevilla M.D. [facility] [address] [place] [phone] Referral ID Status Reason Start Date Expiration Date Visits V isits Requested Authorized [id number] Authorized 10/21/2021 10/21/2022 1 1 RONMENTAL SERVICES MANAGER Encounter Details Date Type Department Care Team Description 10/21/2021 Orders Only Division of Estrella Sevilla Goiter Multin odular Endocrinology in [place].DNaomi Nontoxic (Primary Dx) [address] [place] [phone] Social History Tobacco Use Types Packs/Day Years [...] more drinks on one Never 09/17/2021 occasion? Social Isolation Answer Date Recorded In a typical week, how many times do you Twice a week 09/17/2021 talk on the phone with family, friends, or neighbors? How often do you get together with friends Once a week 09/17/2021 or relatives? How often do you attend mandaeism or worship More than 4 time s per year [...] as of this encounter Plan of Treatment Upcoming Encounters Date Type Specialty Care Team Description 07/05/2022 Appointment Radiology Post, Heath Del Real APRN, C.N.P. 200 [place], [place] [phone] (Wo rk) Scheduled Orders Name Type Priority Associated Diagnoses [...] Primary documented in this encounter Care Teams Choral Teacher Relationship Specialty Start Date End Date Elsewhere, Pcp PCP - General Internal Medicine 10/03/21 documented as of this encounter
--- OUTSIDE RECORDS SUMMARY | 2022-06-20 12:44 | XMS_ITS | Encounter Summary ---
:1955 Author Organization [facility] Address [address] [place] [address] Care Team Providers Name Role Phone Elsewhere, Pcp Primary Care Provider Unavailable Encounter Details Date Type Department Care Team Description 05/04/2022 Clinical Communication Department of Shima Macias Otorhinolaryngology in M, Ph.D. [place], [place] [address] [facility] [address] [place] [phone] Social History Tobacco Use Types Packs/Day Years [...] How often do you attend mandaen or yazdanism More than 4 time s [...] for this patient by Shima Macias, Ph.D. [facility] REPRESENTATIVE Dated 05/03/22. 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 If the plan of care is not what was intended, please contact Shima Macias, Ph.D. at [phone] or by responding to this message. documented in this encounter Plan of Treatment Upcoming Encounters Date Type Specialty Care Team Description 07/05/2022 Appointment Radiology Post, Heath Del Real APRN, C.N.P. [address] [place], [place] [phone] (Wo rk) documented as of this encounter Visit Diagnoses Not on filedocumented in this encounter Care Teams Kaiako Kohanga Reo Relationship Specialty Start Date End Date Elsewhere, Pcp PCP - General Internal Medicine 10/03/21 documented as of this encounter
--- OUTSIDE RECORDS SUMMARY | 2022-06-20 12:44 | XMS_ITS | Encounter Summary ---
:1955 Author Organization [facility] Address [address] [place] [address] Care Team Providers Name Role Phone Elsewhere, Pcp Primary Care Provider Unavailable Reason for Referral Outpatient (Routine) - Closed Specialty Diagnoses / Procedures Referred By Contact Refer red To Contact Diagnoses Hoarseness [facility]st [facility] Procedures ENT Speech therapy [address] [place], [place] [phone] Referral ID Status Reason Start Date Expiration Date Visits Requ ested Visits Authorized [id number] Closed 01/25/2022 01/25/2023 1 1 Reason for Visit Speech Pathology (Routine) - Closed Specialty Diagnoses / Procedures Referred By Contact Refer red To Contact Diagnoses Hoarseness Ashanti Hendricks M.D. [facility] Procedures DISABILITY AIDE Voice evaluation [address] [place] [phone] Referral ID Status Reason Start Date Expiration Date Visits Requ ested Visits Authorized [id number] Closed 12/14/2021 12/14/2022 1 1 Encounter Details Date Type Department Care Team Description 01/25/2022 Comprehensive Visit Department of Shima Macias Otorhinolaryngology mary lou Del Real, Ph.D. [place], [place] [address] [facility] [address] [place] [phone] Social History Tobacco Use Types Packs/Day Years [...] How often do you attend buddhism or mormon More than 4 time s [...] the most. 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 PHYSICAL EXAMINATION I. Phonation: Phonatory quality [...] Heath Del Real APRN, C.N.P. [address] [place], [place] [phone] (Wo rk) documented as of this encounter Visit Diagnoses Diagnosis Hoarseness documented in this encounter Care Teams Loss Prevention And Safety Manager Relationship Specialty Start Date End Date Elsewhere, Pcp PCP - General Internal Medicine 10/03/21 documented as of this encounter
--- OUTSIDE RECORDS SUMMARY | 2022-06-20 12:44 | XMS_ITS | Clinical Summary ---
:1955 Author Organization [facility] Address [address] [place] [address] Care Team Providers Name Role Phone Elsewhere, Pcp Primary Care Provider Unavailable Source Comments Patient records contain information from all sites at [facility]. For routine questions regarding patient records, call [phone] during business hours, M-F 8:00 AM - 5:00 PM Central Time. Record requests for emergency care only can be directed to [phone] at any time.[facility] Allergies Active Allergy Reactions Severity Noted [...] 11/19/1991, 10/19/1991 MMR 10/13/1990 SARS-COV-2 (COVID-19) - PFIZER (12 years 07/27/2021, 021, 10/28/2020 or older) Td Preservative Free (TENIVAC, DECAVAC) 03/11/1999 Tdap 06/27/2012, 09/23/2008 Family History Medical History Relation Name Comments Atrial fibrillation Father Akshat Ashford Coronary artery disease Father Akshat Ashford Prostate cancer Father Akshat Ashford 1990s Breast cancer Mother Odalys Ashford 2001 Dementia Mother Odalys Ashford Head injury Mother Odalys Dejon Hypertension Mother Odalys Dejon Hypothyroidism Mother Odalys Dejon Osteoporosis Mother Odalys Dejon Stroke Mother Odalysjenni [place] Relation Name Status [...] How often do you attend hinduism or zoroastrian More than 4 time s [...] Comments Blood Pressure 140/65 10/18/2021 8:25 AM POWER LINE LINEMAN Pulse 69 10/18/2021 8:25 AM POWER LINE LINEMAN Temperature 36.8 ??C (98.2 ??F) 10/18/2021 4:00 AM POWER LINE LINEMAN Respiratory Rate 16 10/18/2021 4:33 AM POWER LINE LINEMAN Oxygen Saturation 97% 10/18/2021 8:25 AM POWER LINE LINEMAN Inhaled Oxygen Concentration - - Weight 99.2 kg (218 lb 11.1 oz) 10/17/2021 8:45 AM POWER LINE LINEMAN Height 155 cm (5' 1.02) 10/17/2021 8:45 AM POWER LINE LINEMAN Body Mass Index 41.29 10/17/2021 8:45 AM POWER LINE LINEMAN Plan of Treatment Upcoming Encounters Date Type Specialty Care Team Description 07/05/2022 Appointment Radiology Post, Heath Del Real APRN, C.N.P. [address] [place] [phone] (Wo rk) Health Maintenance Due Date Last Done Comments [...] Completed 05/11/1992, 04/20/1992, 11/19/1991, Additional history exists Cervical Cancer Screening Discontinued 2011 Fall Risk Screen (Annual) Completed 10/17/2021 Insurance Payer Benefit Plan Subscriber ID Effective Dates Phone Address Type / Group [facility] [id number] 2017-Gage [phone] [address] [address] PPO [facility] [address] [place] [address] Advance Directives For more information, please contact: [phone] Latest Code Status on File Code Status Date Activated Date Inactivated Comments Full Code 10/17/2021 2:14 PM 10/18/2021 12:43 PM Question Answer Comments Full Code: Discussed Code Status History Code Status Date Activated Date Inactivated Comments Full Code 08/15/2017 1:23 AM 08/15/2017 9:26 PM Question Answer Comments Full Code: Not Discussed Due to: Not medically appropriate Full Code 08/14/2017 3:50 PM 08/14/2017 9:42 PM Question Answer Comments Full Code: Not Discussed Due to: Not medically appropriate Care Teams Production Estimator Relationship Specialty Start Date End Date Elsewhere, Pcp PCP - General Internal Medicine 10/03/21
--- OUTSIDE RECORDS SUMMARY | 2022-06-20 12:44 | XMS_ITS | Encounter Summary ---
:1955 Author Organization [facility] Address [address] [place] [address] Care Team Providers Name Role Phone Elsewhere, Pcp Primary Care Provider Unavailable Reason for Referral Outpatient (Routine) - Closed Specialty Diagnoses / Procedures Referred By Contact Refer red To Contact Otorhinolaryngology Diagnoses Hoarseness Paige Nguyen M.D. [facility] [address] [place] [phone] Referral ID Status Reason Start Date Expiration Date Visits Requ ested Visits Authorized [id number] Closed 12/14/2021 12/14/2022 1 1 Encounter Details Date Type Department Care Team Description 12/14/2021 Orders Only Division of Endocrine Sindhu Jovel H oarseness (Primary and Metabolic Surgery R.N. Dx) in [address] [address] [place], [place] [phone] (Work) [phone] Social History Tobacco Use Types Packs/Day Years [...] How often do you attend anabaptism or worship More than 4 time s [...] Heath Del Real APRN, C.N.P. [address] [place], [place] [phone] (Wo rk) Scheduled Referrals Name Type Priority Associated Order Schedule Diagnoses Otorhinolaryngology - Outpatient Routine Hoarseness Expect ed: Laryngology and voice Referral 2021 disorders consult (clinic) ( Approximate), Expires: 03/15/2023 documented as of this encounter Visit Diagnoses Diagnosis Hoarseness - Primary documented in this encounter Care Teams Medical Aide Relationship Specialty Start Date End Date Elsewhere, Pcp PCP - General Internal Medicine 10/03/21 documented as of this encounter
--- OUTSIDE RECORDS SUMMARY | 2022-06-20 12:44 | XMS_ITS | Encounter Summary ---
:1955 Author Organization [facility] Address [address] [place] [address] Care Team Providers Name Role Phone Elsewhere, [...] How often do you attend sikhism or congregation More than 4 time s [...] Post, Heath Del Real APRN, C.N.P. [address] [place] [phone] (Wo rk) documented as of this encounter Procedures Procedure [...] on filedocumented in this encounter Care Teams Product Marketing Engineer Relationship Specialty Start Date End Date Elsewhere, Pcp PCP - General Internal Medicine 10/03/21 documented as of this encounter
--- OUTSIDE RECORDS SUMMARY | 2022-06-20 12:44 | XMS_ITS | Encounter Summary ---
:1955 Author Organization [facility] Address [address] [place] [address] Care Team Providers Name Role Phone Elsewhere, Pcp Primary Care Provider Unavailable Reason for Referral Speech Pathology (Routine) - Closed Specialty Diagnoses / Procedures Referred By Contact Refer red To Contact Diagnoses Hoarseness Ashanti Hendricks M.D. [facility] Procedures MOLASSES PREPARER Voice evaluation [address] [place], [place] [phone] Referral ID Status Reason Start Date Expiration Date Visits Requ ested Visits Authorized [id number] Closed 12/14/2021 12/14/2022 1 1 Encounter Details Date Type Department Care Team Description 12/14/2021 Clinical Department of Cassandra Smith Otorhinolaryngology in [place], [place] [address] [place] [phone] Social History Tobacco Use Types Packs/Day [...] often do you attend jehovah's witness or yazdanism More than 4 time s [...] me. She would also benefit from an MOLASSES PREPARER appointment same day but after seeing me. [...] Post, Heath Del Real APRN, C.N.P. [address] [place] [phone] (Wo rk) documented as of this encounter Visit Diagnoses Diagnosis Hoarseness - Primary documented in this encounter Care Teams Behavioral Health Assistant Relationship Specialty Start Date End Date Elsewhere, Pcp PCP - General Internal Medicine 10/03/21 documented as of this encounter
--- OUTSIDE RECORDS SUMMARY | 2022-06-20 12:44 | XMS_ITS | Encounter Summary ---
:1955 Author Organization [facility] Address [address] [place] [address] Care Team Providers Name Role Phone Elsewhere, Pcp Primary Care Provider Unavailable Encounter Details Date Type Department Care Team Description 01/20/2022 Clinical Communication Visit Review in [place], [place] [address] [place] [address] Social History Tobacco Use Types [...] How often do you attend druze or yazdanism More than 4 time s [...] Care Team Description 07/05/2022 Appointment Radiology Post, Haeth Del Real APRN, C.N.P. [address] [place] [phone] (Wo rk) documented as of this encounter Visit Diagnoses Not on filedocumented in this encounter Care Teams Commercial Green Building Designer Relationship Specialty Start Date End Date Elsewhere, Pcp PCP - General Internal Medicine 10/03/21 documented as of this encounter
--- OUTSIDE RECORDS SUMMARY | 2022-06-20 12:44 | XMS_ITS | Encounter Summary ---
:1955 Author Organization [facility] Address [address] [place] [address] Care Team Providers Name Role Phone Elsewhere, Pcp Primary Care Provider Unavailable Reason for Referral Outpatient (Routine) - Authorized Specialty Diagnoses / Procedures Referred By Contact Refer red To Contact Diagnoses Hoarseness [facility]st [facility] Procedures ENT Speech therapy [address] [place] [phone] Referral ID Status Reason Start Date Expiration Date Visits V isits Requested Authorized [id number] Authorized 05/03/2022 05/03/2023 1 1 Reason for Visit Outpatient (Routine) - Closed Specialty Diagnoses / Procedures Referred By Contact Refer red To Contact Diagnoses Hoarseness [facility] Procedures ENT Speech therapy [address] [place] [phone] Referral ID Status Reason Start Date Expiration Date Visits Requ ested Visits Authorized [id number] Closed 01/25/2022 01/25/2023 1 1 Encounter Details Date Type Department Care Team Description 05/03/2022 Clinical Support Department of Shima Macias Otorhinolaryngology mary lou Del Real, Ph.D. [place], [place] [address] [facility] [address] [place] [phone] Social History Tobacco Use Types Packs/Day Years [...] How often do you attend mosque or judaism More than 4 time s [...] provider: No ref. provider found SUBJECTIVE Colleen Lomeli Dejon Tolentino returns today for 1 session [...] Post, Heath Del Real APRN, C.N.P. [address] [place] [phone] (Wo rk) documented as of this encounter Visit Diagnoses Diagnosis Hoarseness documented in this encounter Care Teams Forestry Consultant Relationship Specialty Start Date End Date Elsewhere, Pcp PCP - General Internal Medicine 10/03/21 documented as of this encounter
--- OUTSIDE RECORDS SUMMARY | 2022-06-20 12:44 | XMS_ITS | Encounter Summary ---
:1955 Author Organization [facility] Address [address] [place] [address] Care Team Providers Name Role Phone Elsewhere, Pcp Primary Care Provider Unavailable Reason for Visit Outpatient (Routine) - Closed Specialty Diagnoses / Procedures Referred By Contact Refer red To Contact Otorhinolaryngology Diagnoses Hoarseness Paige Nguyen M.D. [facility] [address] [place] [phone] Referral ID Status Reason Start Date Expiration Date Visits Requ ested Visits Authorized [id number] Closed 12/14/2021 12/14/2022 1 1 Encounter Details Date Type Department Care Team Description 01/25/2022 Comprehensive Visit Department of Ashanti Hendricks Otorhinolaryngology mary lou Lomeli M.D. [place], [place] [address] [place] [address] [place] [phone] Social History Tobacco Use Types Packs/Day Years [...] How often do you attend yazdanism or bahai More than 4 time s [...] M.D. - 01/25/2022 11:00 AM CDT [facility] The patient was referred for [...] Post, Heath Del Real APRN, C.N.P. [address] [place] [phone] (Wo rk) documented as of this encounter Visit Diagnoses Diagnosis Hoarseness documented in this encounter Care Teams Word Processor Relationship Specialty Start Date End Date Elsewhere, Pcp PCP - General Internal Medicine 10/03/21 documented as of this encounter
--- OUTSIDE RECORDS SUMMARY | 2022-06-20 12:45 | XMS_ITS | Encounter Summary ---
:1955 Author Organization [facility] Address [address] [place] [address] Care Team Providers Name Role Phone Unavailable Primary Care Provider Unavailable Encounter Details Date Type Department Care Team Description 08/29/2021 Admin Visit Department of Family Ramón Cosby, Medicine, [facility] in [facility] 701 [facility] [address] [place] [address] [place] [address] [phone] Social History Tobacco Use Types Packs/Day Years [...] How often do you attend gnosticism or mosque More than 4 time s [...] Care Team Description 07/05/2022 Appointment Radiology Post, Hetah Del Real APRN, C.N.P. [address] [place] [phone] (Wo rk) documented as of this encounter Visit Diagnoses Not on filedocumented in this encounter Additional Health Concerns Infection Onset Date Last Indicated Resolved Time COVID19 Pending 08/28/2021 08/29/2021 08/30/2021 2:17 AM MARINE RADIO INSTALLER AND SERVICER documented as of this encounter
--- OUTSIDE RECORDS SUMMARY | 2022-06-20 12:45 | XMS_ITS | Encounter Summary ---
:1955 Author Organization [facility] Address [address] [place] [address] Care Team Providers Name Role Phone Elsewhere, Pcp Primary Care Provider Unavailable Encounter Details Date Type Department Care Team Description 10/04/2021 Orders Only Division of Endocrine Sindhu Jovel G oiter Multinodular and Metabolic Surgery R.N. Nontoxic (Primary Dx) in [address] [place] [phone] [place], [place] [phone] (Work) [phone] Social History Tobacco Use Types Packs/Day Years [...] How often do you attend nondenominational or protestant More than 4 time s [...] Heath Del Real APRN, C.N.P. [address] [place], [place] [phone] (Wo rk) documented as of this encounter Results SARS Coronavirus-2 RNA, V Asymptomatic (10/14/2021 10:27 AM TELEVISION ENGINEER) [facility] Method Time Signature SARS-CoV-2 Swab, 10/14/2021 ECLR Specimen Nasopharynx 10:10 PM Source TELEVISION ENGINEER SARS CoV-2 Undetected Undetected 10/14/2021 ECLR RNA, TMA 10:10 PM TELEVISION ENGINEER Comment: SARS-CoV-2 RNA absent. This result does not rule out COVID-19 in the patient, as the sensitivity of the test depends o n the timing of the specimen collection and the quality of the specim en. Result should be correlated with patient's history and clinical presentat ion. ----ADDITIONAL INFORMATION---- This molecular amplification test was pe rformed using the Aptima SARS-CoV-2 assay ([employer] on the [employer] tem under emergency use authorization (EUA) by the U.S. Food and Drug Administ ration. Fact sheets for this EUA assay can be fo und at the following links: For Healthcare Providers: https://www.fd a.gov/media/536179/download For Patients: https://www.fda.gov/media/ 590412/download Specimen Anatomical Collection Method Collection Time Receive d Time (Source) Location / / Volume Laterality Varies 10/14/2021 10:27 10/14/2021 2:43 (Nasopharynx) AM TELEVISION ENGINEER PM TELEVISION ENGINEER Paige Nguyen M.D. 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
--- OUTSIDE RECORDS SUMMARY | 2022-06-20 12:45 | XMS_ITS | Encounter Summary ---
:1955 Author Organization [facility] Address [address] [place] [address] Care Team Providers Name Role Phone Unavailable Primary Care Provider Unavailable Reason for Visit Reason Onset Date Comments Testing For Upper Respiratory Virus Symptoms 05/11/2021 Encounter Details Date Type Department Care Team Description 05/11/2021 External Outreach Department of Family Kyra Cosby Contact With And Medicine, LancingJo JaimeAManoj (Suspected) Exposure Clinic, in [address] To COVID-19 (Primary [place], [place] Dx) 701 [facility] [address] [place], [place] [phone] (Work) [phone] Social History Tobacco Use Types Packs/Day Years [...] How often do you attend hoahaoism or mosque More than 4 time s [...] of this encounter Progress Notes Odalys Roa R.N. - 05/11/2021 1:08 PM CDT Encounter created for symptomatic infectious disease screening with possible COVID, Influenza, RSV, and/or Group A Strep testing. documented in this encounter Plan of Treatment Upcoming Encounters Date Type Specialty Care Team Description 07/05/2022 Appointment Radiology Post, Heath Del Real APRN, C.N.P. [address] [place] [phone] (Wo rk) documented as of this encounter Procedures Procedure Name Priority Date/Time Associated Diagnosis Comme nts SARS CORONAVIRUS-2 Routine 05/11/2021 2:29 PM Contact With And Results for this RNA, V CDT (Suspected) Exposure procedu re are in To COVID-19 the results section. documented in this encounter Results SARS Coronavirus-2 RNA, V Symptomatic (05/11/2021 2:29 PM CDT) [facility] Method Time Signature SARS-CoV-2 Swab, 05/12/2021 ECLR [...] pe rformed using the Aptima SARS-CoV-2 assay ([employer] on the [employer] tem under emergency use authorization (EUA) by the U.S. Food and Drug Administ ration. Fact sheets for this EUA assay can be fo und at the following links: For Healthcare Providers: https://www.Icinetic a.gov/media/184048/download For Patients: https://www.fda.gov/media/ 469902/download Specimen Anatomical Collection Method Collection Time Receive d Time (Source) Location / / Volume Laterality Varies 05/11/2021 2:29 PM 9:37 (Nasopharynx) CDT PM CDT Raómn Cosby P.A.-C. LAB MICROBIOLOGY - GENERAL O MALI Performing Organization Address City/State/ZIP Code Phon e Number [facility]- [address] [place] [phone] [facility] [place] [place] [address] System [address] documented in this encounter Visit Diagnoses Diagnosis Contact With And (Suspected) Exposure To COVID-19 - Primary documented in this encounter Additional Health Concerns Infection Onset Date Last Indicated Resolved Time COVID19 Pending 05/11/2021 05/11/2021 05/12/2021 12:40 PM CDT documented as of this encounter
--- OUTSIDE RECORDS SUMMARY | 2022-06-20 12:45 | XMS_ITS | Encounter Summary ---
:1955 Author Organization [facility] Address [address] [place] [address] Care Team Providers Name Role Phone Unavailable Primary Care Provider Unavailable Reason for Visit Appointment Request (Routine) - Closed Specialty Diagnoses / Procedures Referred By Contact Refer red To Contact Family Medicine Referral ID Status Reason Start Date Expiration Date Visits Requ ested Visits Authorized [id number] Closed 07/08/2021 07/08/2022 1 1 Encounter Details Date Type Department Care Team Description 07/27/2021 Immunization Department of [facility] Shen Bowman, Medicine, [place] M.D. Professional Building, in [address] [place] [address] [facility] [address] [place] [address] [phone] Social History Tobacco Use Types Packs/Day Years [...] How often do you attend amish or voodoo More than 4 time s [...] Post, Heath Del Real APRN, C.N.P. [address] [place] [phone] (Wo rk) documented as of this encounter Visit Diagnoses Not on filedocumented in this encounter
--- OUTSIDE RECORDS SUMMARY | 2022-06-20 12:45 | XMS_ITS | Encounter Summary ---
:1955 Author Organization [facility] Address [address] [place] [address] Care Team Providers Name Role Phone Elsewhere, Pcp Primary Care Provider Unavailable Reason for Visit Reason Comments Pre-visit Intake Encounter Details Date Type Department Care Team Description 10/03/2021 Clinical Communication Visit Review in Pr e-visit Intake [address] [address] Social History Tobacco Use Types [...] How often do you attend jainism or protestant More than 4 time s [...] or slept in a half-way (including now)? Education Answer Date Recorded What [...] Heath Del Real APRN, C.N.P. [address] [place], [place] [phone] (Wo rk) documented as of this encounter Visit Diagnoses Not on filedocumented in this encounter Care Teams Manager Combination Relationship Specialty Start Date End Date Elsewhere, Pcp PCP - General Internal Medicine 10/03/21 documented as of this encounter
--- OUTSIDE RECORDS SUMMARY | 2022-06-20 12:45 | XMS_ITS | Encounter Summary ---
:1955 Author Organization [facility] Address [address] [place] [address] Care Team Providers Name Role Phone Unavailable Primary Care Provider Unavailable Reason for Visit Reason Onset Date Comments Testing For Upper Respiratory Virus Symptoms 08/28/2021 Encounter Details Date Type Department Care Team Description 08/28/2021 External Outreach Department of Family Kyra Cosby Contact With And Medicine, [place] Ja[place] (Suspected) Exposure Clinic, in [address] To COVID-19 (Primary [place], [place] Dx) [address] [facility] [address] [place], [place] [phone] (Work) [phone] Social History Tobacco Use Types Packs/Day Years [...] How often do you attend cheondoism or sikhism More than 4 time s [...] Influenza, RSV, and/or Group A Strep testing. TE SENSING SURVEYOR documented in this encounter Plan of Treatment Upcoming Encounters Date Type Specialty Care Team Description 07/05/2022 Appointment Radiology Post, Heath Del Real APRN, C.N.P. [address] [place] [address] [phone] (Wo rk) documented as of this encounter Procedures Procedure Name Priority Date/Time Associated Diagnosis Comme nts SARS CORONAVIRUS-2 Routine 08/29/2021 10:06 AM Contact With An d Results for this RNA, V REMOTE SENSING SURVEYOR (Suspected) Exposure procedu re are in To COVID-19 the results section. documented in this encounter Results SARS Coronavirus-2 RNA, V Symptomatic (08/29/2021 10:06 AM REMOTE SENSING SURVEYOR) [facility] Method Time Signature SARS-CoV-2 Swab, 08/30/2021 ECLR Specimen Nasopharynx 2:16 AM REMOTE SENSING SURVEYOR Source SARS CoV-2 Undetected Undetected 08/30/2021 ECLR RNA, TMA 2:16 AM REMOTE SENSING SURVEYOR Comment: SARS-CoV-2 RNA absent. This result does not rule out COVID-19 in the patient, as the sensitivity of the test depends o n the timing of the specimen collection and the quality of the specim en. Result should be correlated with patient's history and clinical presentat ion. ----ADDITIONAL INFORMATION---- This molecular amplification test was pe rformed using the Aptima SARS-CoV-2 assay ([employer] on the Carbonated Contents tem under emergency use authorization (EUA) by the U.S. Food and Drug Administ ration. Fact sheets for this EUA assay can be fo und at the following links: For Healthcare Providers: https://www.[employer] a.gov/media/522747/download For Patients: https://www.fda.gov/media/ 576687/download Specimen Anatomical Collection Method Collection Time Receive d Time (Source) Location / / Volume Laterality Varies 08/29/2021 10:06 08/29/2021 2:37 (Nasopharynx) AM REMOTE SENSING SURVEYOR PM REMOTE SENSING SURVEYOR Ramón Cosby P.A.-C. LAB MICROBIOLOGY - GENERAL O RDERABLES Performing Organization Address City/State/ZIP Code Phon e Number [facility]- [address] [place] [address] [place] [address] [place] [address] System in [address] documented in this encounter Visit Diagnoses Diagnosis Contact With And (Suspected) Exposure To COVID-19 - Primary documented in this encounter Additional Health Concerns Infection Onset Date Last Indicated Resolved Time COVID19 Pending 08/28/2021 08/29/2021 08/30/2021 2:17 AM REMOTE SENSING SURVEYOR documented as of this encounter
--- OUTSIDE RECORDS SUMMARY | 2022-06-20 12:45 | XMS_ITS | Encounter Summary ---
:1955 Author Organization [facility] Address [address] [place] [address] Care Team Providers Name Role Phone Unavailable Primary Care Provider Unavailable Reason for Referral Outpatient (Routine) - Closed Specialty Diagnoses / Procedures Referred By Contact Refer red To Contact Diagnoses Goiter Multinodular Estrella Palafox M.D. [facility] Procedures Vocal cord check [address] [place], [place] [address] Referral ID Status Reason Start Date Expiration Date Visits Requ ested Visits Authorized [id number] Closed 09/21/2021 09/21/2022 1 1 utpatient (Routine) - Closed Specialty Diagnoses / Procedures Referred By Contact Refer red To Contact General Surgery Diagnoses Goiter Multinodular Nontoxic Estrella Sevilla M.D. [facility] [address] [place] [address] Referral ID Status Reason Start Date Expiration Date Visits Requ ested Visits Authorized [id number] Closed 09/21/2021 09/21/2022 1 1 utpatient (Routine) - Closed Specialty Diagnoses / Procedures Referred By Contact Refer red To Contact Diagnoses Goiter Multinodular Nontoxic Estrella Sevilla M.D. [facility] Procedures END Thyroid USG [address] [place] [address] Referral ID Status Reason Start Date Expiration Date Visits Requ ested Visits Authorized [id number] Closed 09/21/2021 09/21/2022 1 1 ORK OPERATIONS CENTER ENGINEER Reason for Visit Outpatient (Routine) - Closed Specialty Diagnoses / Procedures Referred By Contact Refer red To Contact Endocrinology Diagnoses Goiter Multinodular Nontoxic Lion Carbajal [facility] Jose Alberto [address] [place] [address] Referral ID Status Reason Start Date Expiration Date Visits Requ ested Visits Authorized [id number] Closed 08/22/2021 08/22/2022 1 1 Encounter Details Date Type Department Care Team Description 09/21/2021 Comprehensive Visit Division of Alex Carbajal M.D. [address] [place] [address] Goiter Endocrinology in Zelda Dang M.D. [address] [place] [address] [facility]in[facility]ular [place] [address] [place] [phone] Social History Tobacco Use Types Packs/Day Years [...] often do you attend jehovah's witness or bahai More than 4 time s [...] I have reviewed the history of Colleen Tolentino with Dr. Sevilla. I have also [...] plan to proceed with FNA later today. ORK OPERATIONS CENTER ENGINEER Estrella Sevilla M.D. - 09/21/2021 10:00 [...] by mouth daily., Disp: , Rfl: ??? pxluyih-cdovcgxmf-rsfu tablet, , Disp: , Rfl: ??? cholecalciferol [...] mouth daily., Disp: , Rfl: ??? omega 8-joq-cfg-fish oil 600 mg-216 mg- 324 mg-1,200 mg [...] results. Case seen and discussed with . ORK OPERATIONS CENTER ENGINEER documented in this encounter Plan of Treatment Upcoming Encounters Date Type Specialty Care Team Description 07/05/2022 Appointment Radiology Post, Heath Del Real APRN, C.N.P. [address] [place] [address] [phone] (Wo rk) Scheduled Referrals Name Type Priority Associated Diagnoses Order S [facility] General Surgery - Outpatient Referral Routine Goiter Multinodu lar Expected: Endocrine consult Nontoxic 09/21/2021 (clinic) (Approximate), Expires: 12/19/2022 documented as of this encounter Results T4 (Thyroxine), Free (09/21/2021 12:11 PM NETWORK OPERATIONS CENTER ENGINEER) P athologist Signature T4 (Thyroxine), 1.2 0.9 - 1.7 09/21/2021 DTL Free, S ng/dL 1:24 PM NETWORK OPERATIONS CENTER ENGINEER Specimen Anatomical Collection Method Collection Time Receive d Time (Source) Location / / Volume Laterality Blood (Blood, 09/21/2021 12:11 09/21/2021 Venous) PM NETWORK OPERATIONS CENTER ENGINEER 12:52 PM NETWORK OPERATIONS CENTER ENGINEER Estrella Sevilla M.D. LAB BLOOD ADD-ON Performing Organization Address City/State/[facility] Code Phon e Number [facility] - [address] Calcium, Total (09/21/2021 12:11 PM NETWORK OPERATIONS CENTER ENGINEER) athologist [facility] [place] Calcium, Total, 9.0 8.8 - 10.2 09/21/2021 DTL S mg/dL 1:24 PM NETWORK OPERATIONS CENTER ENGINEER Specimen Anatomical Collection Method Collection Time Receive d Time (Source) Location / / Volume Laterality Blood (Blood, 09/21/2021 12:11 09/21/2021 Venous) PM NETWORK OPERATIONS CENTER ENGINEER 12:52 PM NETWORK OPERATIONS CENTER ENGINEER Estrella Sevilla M.D. LAB BLOOD ADD-ON Performing Organization Address City/[facility]/ZIP Code Phon e Number [facility] - [address] S-TSH (Thyroid-Stimulating Hormone - Sensitive) (09/21/2021 12:11 PM NETWORK OPERATIONS CENTER ENGINEER) athologist [facility] TSH, Sensitive 1.7 0.3 - 4.2 09/21/2021 DTL mIU/L 1:24 PM NETWORK OPERATIONS CENTER ENGINEER Specimen Anatomical Collection Method Collection Time Receive d Time (Source) Location / / Volume Laterality Blood (Blood, 09/21/2021 12:11 09/21/2021 Venous) PM NETWORK OPERATIONS CENTER ENGINEER 12:52 PM NETWORK OPERATIONS CENTER ENGINEER Estrella Sevilla M.D. LAB BLOOD ADD-ON Performing Organization Address City/State/ZIP Code Phon e Number [facility] - [address] CBC without Differential (09/21/2021 12:11 PM NETWORK OPERATIONS CENTER ENGINEER) athologist Signature Hemoglobin 14.3 11.6 - 09/21/2021 DTL 15.0 g/dL 12:45 PM NETWORK OPERATIONS CENTER ENGINEER Hematocrit 43.8 35.5 - 09/21/2021 DTL 44.9 % 12:45 PM NETWORK OPERATIONS CENTER ENGINEER Erythrocytes 4.79 3.92 - 09/21/2021 DTL 5.13 12:45 PM NETWORK OPERATIONS CENTER ENGINEER x10(12)/L MCV 91.4 78.2 - 09/21/2021 DTL 97.9 fL 12:45 PM NETWORK OPERATIONS CENTER ENGINEER RBC Distrib Width 13.2 12.2 - 09/21/2021 DTL 16.1 % 12:45 PM NETWORK OPERATIONS CENTER ENGINEER Platelet Count 186 157 - 371 09/21/2021 DTL x10(9)/L 12:45 PM NETWORK OPERATIONS CENTER ENGINEER Leukocytes 6.3 3.4 - 9.6 09/21/2021 DTL x10(9)/L 12:45 PM NETWORK OPERATIONS CENTER ENGINEER Specimen Anatomical Collection Method Collection Time Receive d Time (Source) Location / / Volume Laterality Blood (Blood, 09/21/2021 12:11 09/21/2021 Venous) PM NETWORK OPERATIONS CENTER ENGINEER 12:38 PM NETWORK OPERATIONS CENTER ENGINEER Estrella Sevilla M.D. LAB BLOOD ADD-ON Performing Organization Address City/State/ZIP Code Phon e Number [facility] - 200 [place], [place] [address] [facility] [place] [address] [facility] 200 [facility] 25-Hydroxyvitamin D2 and D3 (09/21/2021 12:11 PM NETWORK OPERATIONS CENTER ENGINEER) athologist Signature 25-Hydroxy D2 <4.0 ng/mL 09/22/2021 SDSC 3:15 PM NETWORK OPERATIONS CENTER ENGINEER 25-Hydroxy D3 44 ng/mL 09/22/2021 SDSC 3:15 PM NETWORK OPERATIONS CENTER ENGINEER 25-Hydroxy D 44 ng/mL 09/22/2021 SDSC Total 3:15 PM NETWORK OPERATIONS CENTER ENGINEER Comment: ----REFERENCE VALUE---- 25-HYDROXY D TOTAL (D2+D3) Optimum level s in the healthy population are 20-50, patients with bone disease may benefit from higher levels within this r [place]. ----ADDITIONAL INFORMATION---- This test was developed and its performa nce characteristics determined by [facility] in a manner consistent with CLIA requirements. This test has not been cleared or approved by the U.S. Franci d and Drug Administration. Specimen Anatomical Collection Method Collection Time Receive d Time (Source) Location / / Volume Laterality Blood (Blood, 09/21/2021 12:11 09/22/2021 7:15 Venous) PM NETWORK OPERATIONS CENTER ENGINEER AM NETWORK OPERATIONS CENTER ENGINEER Estrella Sevilla M.D. LAB BLOOD ADD-ON Performing Organization Address City/State/ZIP Code Phon e Number [facility] [address] [place] [address] SUPPORT CENTER [facility] [place] [address] Laboratory Medicine and Pathology [address] [place] documented in this encounter Visit Diagnoses Diagnosis Goiter Multinodular Nontoxic documented in this encounter
--- OUTSIDE RECORDS SUMMARY | 2022-06-20 12:45 | XMS_ITS | Encounter Summary ---
:1955 Author Organization [facility] Address [address] [place] [address] Care Team Providers Name Role Phone Elsewhere, [...] How often do you attend episcopal or episcopalian More than 4 time s [...] Heath Del Real APRN, C.N.P. [address] [place] [address] [phone] (Wo rk) documented as of this encounter Procedures Procedure Name Priority Date/Time Associated Comments Diagnosis OTORHINOLARYNGOLOGY IMAGE Routine 10/04/2021 10:50 Results for this EXAM AM PATTERN STORAGE CLERK procedure are i n the results section. documented in this encounter Results AIRWAY-Otorhinolaryngology Image Exam (10/04/2021 10:50 AM PATTERN STORAGE CLERK) Specimen (Source) Anatomical Collection Method Collection Time Re ceived Time Location / / Volume Laterality 10/04/2021 10:50 AM PATTERN STORAGE CLERK Narrative IIMS - 10/04/2021 11:00 AM PATTERN STORAGE CLERK This order has been created and auto-finalized [...] on filedocumented in this encounter Care Teams Worm Grower Relationship Specialty Start Date End Date Elsewhere, Pcp PCP - General Internal Medicine 10/03/21 documented as of this encounter
--- OUTSIDE RECORDS SUMMARY | 2022-06-20 12:45 | XMS_ITS | Encounter Summary ---
:1955 Author Organization [facility] Address [address] [place] [address] Care Team Providers Name Role Phone Unavailable Primary Care Provider Unavailable Reason for Referral Outpatient (Routine) - Closed Specialty Diagnoses / Procedures Referred By Contact Refer red To Contact Diagnoses Routine Screening Breast Exam Sánchez Young M.D., [facility] Procedures BI Breast Screening Bilateral with Tomosynthesis Ph.D. [address] [place] [phone] Referral ID Status Reason Start Date Expiration Date Visits Requ ested Visits Authorized [id number] Closed 06/22/2021 06/22/2022 1 1 Reason for Visit Outpatient (Routine) - Closed Specialty Diagnoses / Procedures Referred By Contact Refer red To Contact Diagnoses Routine Screening Breast Exam Sánchez Young M.D., [facility] Region Procedures BI Breast Screening Bilateral with Tomosynthesis Ph.D. [address] [place] [phone] Referral ID Status Reason Start Date Expiration Date Visits Requ ested Visits Authorized [id number] Closed 06/22/2021 06/22/2022 1 1 Encounter Details Date Type Department Care Team Description 06/24/2021 Hospital Encounter Department of Sánchez Young Routin e Screening Radiology mary lou Ponce M.D., Ph.D. Breast [address] [place], [place], [address] [place] [address] [phone] Social History Tobacco Use Types Packs/Day Years [...] How often do you attend orthodox or rastafarian More than 4 time s [...] D3) 2,000 mouth daily. Unit capsule omega 7-nrr-gxj-fish oil Take 1 capsule by 0 10/1910/03/2021 600 mg-216 mg- 324 mouth daily. mg-1,200 mg capsule,delayed release(DR/EC) documented as of this encounter Plan of Treatment Upcoming Encounters Date Type Specialty Care Team Description 07/05/2022 Appointment Radiology Post, Heath Del Real APRN, C.N.P. [address] [place] [address] [phone] (Wo rk) documented as of this [...] Breast Imaging RST LOS, Breast Imaging [facility], [address] Bilateral Mammography Imaging [facility] Specimen (Source) Anatomical Collection Method [...] TOMOSYNTHESIS Current study was evaluated with a Scanntechu ter Aided Detection (CAD) system. INDICATION: Screening mammogram. COMPARISON: Prior exam(s) were available and reviewed for comparison. DENSITY: b. There are scattered areas of fibroglandular density. FINDINGS: No mammographic findings of ma lignancy. IMPRESSION: Negative. RECOMMENDATION: Annual Screening Mammogr am ASSESSMENT: BI-RADS: 1: Negative. Sánchez Young M.D., Ph.D. IMG BI PROCEDURES documented in this encounter Visit Diagnoses Diagnosis Routine Screening Breast Exam documented in this encounter
--- OUTSIDE RECORDS SUMMARY | 2022-06-20 12:45 | XMS_ITS | Encounter Summary ---
:1955 Author Organization [facility] Address [address] [place] [address] Care Team Providers Name Role Phone Unavailable Primary Care Provider Unavailable Encounter Details Date Type Department Care Team Description 05/11/2021 Admin Visit Department of Family Shen Bowman [facility] [address] [facility] [address] [place] [phone] [phone] (Wo rk) Social History Tobacco Use Types [...] How often do you attend yarsanism or mu-ism More than 4 time s [...] Post, Heath Del Real APRN, C.N.P. [address] [place] [address] [phone] (Wo rk) documented as of this encounter Visit Diagnoses Not on filedocumented in this encounter Additional Health Concerns Infection Onset Date Last Indicated Resolved Time COVID19 Pending 05/11/2021 05/11/2021 05/12/2021 12:40 PM CDT documented as of this encounter
--- OUTSIDE RECORDS SUMMARY | 2022-06-20 12:45 | XMS_ITS | Encounter Summary ---
:1955 Author Organization [facility] Address [address] [place] [address] Care Team Providers Name Role Phone Unavailable Primary Care Provider Unavailable Reason for Referral Outpatient (Routine) - Closed Specialty Diagnoses / Procedures Referred By Contact Refer red To Contact Endocrinology Diagnoses Goiter Multinodular Nontoxic Lion Carbajal [place] M.D. [address] [place] [address] Referral ID Status Reason Start Date Expiration Date Visits Requ ested Visits Authorized [id number] Closed 08/22/2021 08/22/2022 1 1 LE APPLICATIONS ANALYST Reason for Visit Reason Comments Consult Thyroid nodule Appointment Request (Routine) - Closed Specialty Diagnoses / Procedures Referred By Contact Refer pamela To Contact General Surgery Referral ID Status Reason Start Date Expiration Date Visits Requ ested Visits Authorized [id number] Closed 08/17/2021 08/17/2022 1 1 Encounter Details Date Type Department Care Team Description 08/22/2021 Comprehensive Visit Department of Lion Carbajal General Surgery Jose Alberto [place] Nontoxic (Primary in [place], [address] Dx) [place], [place] [address] [address] [place], [place] [phone] (Work) [phone] Social History Tobacco Use Types Packs/Day Years [...] How often do you attend muslim or moravian More than 4 time s [...] Comments Blood Pressure 135/71 08/22/2021 3:15 PM ORACLE APPLICATIONS ANALYST Pulse 87 08/22/2021 2:32 PM ORACLE APPLICATIONS ANALYST Temperature 36.3 ??C (97.3 ??F) 08/22/2021 2:32 PM ORACLE APPLICATIONS ANALYST Respiratory Rate - - Oxygen Saturation - [...] care provider is Irina Pham CNP of [facility]. Records reviewed in [facility] Everywhere. Patient Active Problem List Diagnosis ??? [...] attempted CHOLANGIOGRAM; Surgeon: Augie Feldman D.O.; Location: [facility] OR ??? OPEN TENOTOMY OF EXTENSOR [...] by mouth daily., Disp: , Rfl: ??? ojrmykb-xlxfpillq-teaa tablet, , Disp: , Rfl: ??? cholecalciferol [...] mouth daily., Disp: , Rfl: ??? omega 0-fyd-fmn-fish oil 600 mg-216 mg- 324 mg-1,200 mg [...] patient undergo this procedure with Radiology in [place], given the complexity with multiple large nodules. [...] care as described above. Lion Carbajal M.D. LE APPLICATIONS ANALYST documented in this encounter Plan of Treatment Upcoming Encounters Date Type Specialty Care Team Description 07/05/2022 Appointment Radiology Post, Heath Del Real APRN, C.N.P. [address] [place] [address] [phone] (Wo rk) Scheduled Referrals Name Type Priority Associated Diagnoses [facility] - Outpatient Routine Goiter Multinodular Expec torrie: Thyroid nodule or Referral Nontoxic 08/22/2021 cancer consult (Approximate) , (clinic) Expires: 11/20/2022 documented as of this encounter Visit Diagnoses Diagnosis Goiter Multinodular Nontoxic - Primary documented in this encounter
--- OUTSIDE RECORDS SUMMARY | 2022-06-20 12:45 | XMS_ITS | Encounter Summary ---
:1955 Author Organization [facility] Address [address] [place] [address] Care Team Providers Name Role Phone Unavailable Primary Care Provider Unavailable Encounter Details Date Type Department Care Team Description 06/22/2021 Clinical Communication Department of Ankush Sheehan, Medicine, [place] Jose Alberto, Ph. D. Clinic, in [address] [phone] Social History Tobacco Use Types Packs/Day Years [...] How often do you attend adventist or moravian More than 4 time s [...] Post, Heath Del Real APRN, C.N.P. [address] [place] [address] [phone] (Wo rk) documented as of this encounter Visit Diagnoses Not on filedocumented in this encounter
--- OUTSIDE RECORDS SUMMARY | 2022-06-20 12:45 | XMS_ITS | Encounter Summary ---
:1955 Author Organization [facility] Address [address] [place] [address] Care Team Providers Name Role Phone Unavailable Primary Care Provider Unavailable Encounter Details Date Type Department Care Team Description 09/20/2021 Clinical Communication Division of Zelda Dang Endocrinology in Jose Alberto [place], [place] [address] [facility] [address] [place] [address] [phone] Social History Tobacco Use Types Packs/Day Years [...] How often do you attend jew or islam More than 4 time s [...] Post, Heath Del Real APRN, C.N.P. [address] [place] [address] [phone] (Wo rk) documented as of this encounter Visit Diagnoses Not on filedocumented in this encounter
--- OUTSIDE RECORDS SUMMARY | 2022-06-20 12:45 | XMS_ITS | Encounter Summary ---
:1955 Author Organization [facility] Address [address] [place] [address] Care Team Providers Name Role Phone Elsewhere, Pcp Primary Care Provider Unavailable Reason for Visit Auth/Cert Specialty Diagnoses / Procedures Referred By Contact Refer red To Contact Diagnoses Goiter Multinodular Nontoxic Goiter Multinodular Nontoxic [E04.2] Procedures NV THYROIDECTOMY TOTAL/COMPLETE NV TEST INJ VASC FLOW FLAP/GRFT THYROIDECTOMY - TOTAL PINPOINT indocyanine green fluorescent parathyroid angiography Referral ID Status Reason Start Date Expiration Date Visits Requ ested Visits Authorized [id number] 1 1 Encounter Details Date Type Department Care Team Description 10/17/2021 - Hospital Encounter [facility] Paige Nguyen Goiter Multinodular 10/18/2021 Hospital, Lissa Lomeli M.D. [facility] [address] [place], [place] Floor [address] [address] [facility] [phone] [place], [place] (Work) [phone] Social History Tobacco Use [...] How often do you attend congregational or bahai More than 4 time s [...] Comments Blood Pressure 140/65 10/18/2021 8:25 AM DISTRICT ASSOCIATE JUDGE Pulse 69 10/18/2021 8:25 AM DISTRICT ASSOCIATE JUDGE Temperature 36.8 ??C (98.2 ??F) 10/18/2021 4:00 AM DISTRICT ASSOCIATE JUDGE Respiratory Rate 16 10/18/2021 4:33 AM DISTRICT ASSOCIATE JUDGE Oxygen Saturation 97% 10/18/2021 8:25 AM DISTRICT ASSOCIATE JUDGE Inhaled Oxygen Concentration - - Weight 99.2 kg (218 lb 11.1 oz) 10/17/2021 8:45 AM DISTRICT ASSOCIATE JUDGE Height 155 cm (5' 1.02) 10/17/2021 8:45 AM DISTRICT ASSOCIATE JUDGE Body Mass Index 41.29 10/17/2021 8:45 AM DISTRICT ASSOCIATE JUDGE documented in this encounter Discharge Summaries Torin Chavez M.D. - 10/18/2021 7:50 AM CST DISCHARGE SUMMARY BRIEF OVERVIEW [facility] [place] Discharge Provider: Paige Nguyen M.D. Primary Team: [...] thyroidectomy, 10/17/2021. The patient was admitted to [facility]. The patient was taken to [...] were provided to the patient and caregiver(s). RICT ASSOCIATE JUDGE documented in this encounter Discharge Instructions AttachmentsThe following attachments cannot be sent through Care Everywhere. Calcitriol (By mouth) (Cuban)Levothyroxine (By mouth) (Cuban)Antacid, Calcium and Magnesium (By mouth) (Cuban)documented in this encounter Medications at Time of [...] in [address] Nguyen. RICT ASSOCIATE JUDGE Lora Garrett Pharm.D., R.Ph. - 10/17/2021 8:53 AM CST Images from the original note were not included. Admission Medication History Note Adherence issues: No concerns Medication list source: Patient Medication related information: none Prior to Admission Medications Med List Status: Pharmacy Complete Set By: Lora Garrett, PharmNaomiD., R.Ph. at 10/17/2021 8:53 AM Taking? Last Dose Informant Start Date End Date LT acetaminophen (TYLENOL) 500 mg tablet Past Week Self 06/29/12 -- Take 2 tablets by mouth every 6 (six) hours as needed for pain. aspirin [address] tablet 10/16/2021 06/27/12 -- Take 1 tablet by mouth daily. bwrspej-ssucvshay-knqi tablet 10/16/2021 -- -- Take 3 tablets [...] 2.5 mg by mouth daily. [facility] (Allergy Immunotherapy) 10/17/2021 06/27/12 -- Take 1 each by mouth as needed (allergies). Homeopathic remedy drops multivitamin (multivitamin) tablet 10/16/2021 -- -- Take 1 tablet by mouth daily. omega-3 fatty acids 1,250 mg capsule 10/16/2021 -- -- Take 1,200 mg by mouth daily. RED YEAST RICE ORAL 10/16/2021 -- -- Take 1 tablet by mouth 2 (two) times a day. RICT ASSOCIATE JUDGE documented in this encounter Nursing Notes Anabel Rosales R.N. - 10/18/2021 10:33 AM CST Patient stable at discharge. Education was reviewed with patient. Any further questions were answered. Pain was well controlled with oral pain medications. Patient discharged home with significant other. Patient needs addressed. RICT ASSOCIATE JUDGE Lora Rebolledo R.N. - 10/18/2021 5:12 AM CST Shift Goals: Clinical Goals for the Shift: rest overnight Identify possible barriers to meeting goals/advancing plan of care: none End of Shift Summary: Patient rested well overnight with minimal pain which was managed with currentregimen. Vitals remained stable with no acute events overnight. RICT ASSOCIATE JUDGE documented in this encounter OR Notes Op Note - Paige Nguyen M.D. - 10/17/2021 10:51 AM CST Pre-op Diagnosis Goiter Multinodular Nontoxic Post-op Diagnosis Goiter Multinodular Nontoxic A office clerk assistant actively participated and was necessary for [...] was mobilized in a similar fashion. An ward assistant was necessary to help expose and [...] without complication...Dictated by Dr. Patrick Nguyen M.D. RICT ASSOCIATE JUDGE Brief Op Note - Torin Chavez M.D. - 10/17/2021 10:51 AM CST Pre-op Diagnosis Goiter Multinodular Nontoxic Post-op Diagnosis Goiter Multinodular Nontoxic Findings Multinodular goiter. Near total thyroidectomy Complications None Darius Chavez M.D. RICT ASSOCIATE JUDGE documented in this encounter Miscellaneous Notes Hospital Course - Torin Chavez M.D. - 10/17/2021 1:49 PM CST Multinodular goiter status post near total thyroidectomy, 10/17/2021. The patient was admitted to [facility]. The patient was taken to [...] patient's home medications were restarted as indicated. RICT ASSOCIATE JUDGE documented in this encounter Plan of Treatment Upcoming Encounters Date Type Specialty Care Team Description 07/05/2022 Appointment Radiology Post, Heath Del Real APRN, C.N.P. [address] [place] [phone] (Wo rk) documented as of this encounter Procedures Procedure Name Priority Date/Time Associated Diagnosis Comme nts CALCIUM, TOT, S/P Routine 10/18/2021 7:03 Results for this AM DISTRICT ASSOCIATE JUDGE procedure are i n the results section. PARATHYROID HORMONE Routine 10/17/2021 2:42 Resul ts for this (PTH), S PM DISTRICT ASSOCIATE JUDGE procedure are i n the results section. ADULT OXYGEN THERAPY Routine 10/17/2021 12:39 PM DISTRICT ASSOCIATE JUDGE SURGICAL PATHOLOGY, Routine 10/17/2021 11:23 Goiter Multinodul ar Results for this [facility] AM DISTRICT ASSOCIATE JUDGE Nontoxic procedure are i n the results section. THYROIDECTOMY - TOTAL 10/17/2021 10:04 Goiter Multinod ular AM DISTRICT ASSOCIATE JUDGE Nontoxic documented in this encounter Results (ABNORMAL) Calcium, Total (10/18/2021 7:03 AM DISTRICT ASSOCIATE JUDGE) P athologist Signature Calcium, 7.9 (L) 8.8 - 10.2 10/18/2021 DTL Total, S mg/dL 7:43 AM DISTRICT ASSOCIATE JUDGE Specimen Anatomical Collection Method Collection Time Receive d Time (Source) Location / / Volume Laterality Blood (Blood, 10/18/2021 7:03 AM 10/19/19 7:03 Venous) DISTRICT ASSOCIATE JUDGE AM DISTRICT ASSOCIATE JUDGE Torin Chavez M.D. LAB BLOOD ADD-ON Performing Organization Address City/[facility] Phon e Number [facility] - [address] [place], [place] [address] [facility] [place] [address] Laboratories-[address] (ABNORMAL) Parathyroid Hormone (PTH) (10/17/2021 2:42 PM DISTRICT ASSOCIATE JUDGE) Patholo gist Method Time [facility] Parathyroid <6.0 (L) 15 - 65 10/17/2021 DT Hormone (PTH), S pg/mL 3:37 PM DISTRICT ASSOCIATE JUDGE Specimen Anatomical Collection Method Collection Time Receive d Time (Source) Location / / Volume Laterality Blood (Blood, 10/17/2021 2:42 PM 10/17/19 3:09 Venous) DISTRICT ASSOCIATE JUDGE PM DISTRICT ASSOCIATE JUDGE Torin Chavez M.D. LAB BLOOD ADD-ON Performing Organization Address [facility] Phon e Number [facility] - [address] [place], [place] [address] [place] [id number] Laboratories-[address] Surgical Pathology, Frozen Lab (10/17/2021 11:23 AM DISTRICT ASSOCIATE JUDGE) Component Value Ref Test Analysis Performed Pathologis t Range Method Time At [facility] 10/20/2021 [facility] 4:20 PM DISTRICT ASSOCIATE JUDGE Report Anca Salazar M.D. 10/20/2021 [facility] electronically 4:20 PM signed by DISTRICT ASSOCIATE JUDGE I verify that I have examined all relevant slides/materials for the specimen(s) and rendered or confirmed the diagnosis. Gross Description A. ??Received fresh labeled left thyroid is an 18 gram 10/20/2021 [facility] partial thyroidectomy with 7.1 x 3.2 x 2.6 cm left lobe. 4:20 PM The lobe is received disrupted. ??There is a 1 x 0.6 x 0.4 DISTRICT ASSOCIATE JUDGE cm reyes-white area identified. ??The remainder of the thyroid lobe is uniformly nodular. ??Cpr Instructor tissue submitted for permanent sections. ??Grossed by Parvez Salazar M.D. -Pathology Resident. B. ??Received fresh labeled right thyroid is a 40 gram partially disrupted partial thyroidectomy with a 7.1 x 4.9 x 3.5 cm right lobe, in aggregate. ??The thyroid parenchyma demonstrates multiple reyes-brown soft nodules, 0.5 to 5.1 cm. ??The largest nodule is detached and shows hemorrhagic and cystic spaces. ??Cpr Instructor tissue submitted for permanent sections. ??Grossed by Derian Rodgers, PA([facility]). Block Summary A Left thyroid 10/20/2021 [facility] A1 Left thyroid 4:20 PM A2 Left thyroid registration representative section C ST B Right thyroid B1 Right superior B2 Right mid B3 Right inferior B4 Dominant detached nodule Interpretation FINAL DIAGNOSIS 10/20/2021 [facility] 4:20 PM A. ??Thyroid, left, left lobectomy: ??Hyperplastic nodules. DISTRICT ASSOCIATE JUDGE Mild chronic thyroiditis. B. ??Thyroid, right, right lobectomy: ??Hyperplastic in adenomatous nodules with degenerative features. ??Mild chronic thyroiditis. Congo red performed at [facility] on section from block B4 is negative. Specimen (Source) Anatomical Collection Method Collection Time Re ceived Time Location / / Volume Laterality Tissue (Thyroid) 10/17/2021 11:23 AM DISTRICT ASSOCIATE JUDGE Tissue (Thyroid) 10/17/2021 11:32 AM DISTRICT ASSOCIATE JUDGE Narrative This result has an attachment that is no t available. Paige Nguyen M.D. LAB SURG PATH ORDERABLES Performing Organization Address City/State/ZIP Code Phon e Number [facility] [place] [address] [place] [address] Laboratories-[facility] [address] documented in this encounter Visit Diagnoses Diagnosis Goiter Multinodular Nontoxic - Primary Goiter Multinodular Nontoxic documented in this encounter Admitting Diagnoses Diagnosis Goiter Multinodular Nontoxic documented in this encounter Administered Medications Inactive Administered Medications - up to 3 most recent administrations Medication Order MAR Action Action Date Dose Rate Site acetaminophen tablet 1,000 mg Given 10/17/2021 9:50 AM DISTRICT ASSOCIATE JUDGE 1,000 mg (TYLENOL) 1,000 mg, oral, Once, On 10/17/21 at 1000, For 1 dose, Pre-Op, Copy Coordinator, PreOp with sips acetaminophen tablet 1,000 mg (TYLENOL) Given 10/18/2021 9:23 AM DISTRICT ASSOCIATE JUDGE 1,000 mg 1,000 mg, oral, Every 6 hours, First dose (after last modification) on Sun10/17/21 at 2200, (not to exceed 4 grams in 24 hours) Given 10/18/2021 4:05 AM DISTRICT ASSOCIATE JUDGE 1,000 mg Given 10/17/2021 10:09 PM DISTRICT ASSOCIATE JUDGE 1,000 mg acetaminophen tablet 500 mg (TYLENOL) Given 10/17/2021 3:54 PM DISTRICT ASSOCIATE JUDGE 500 mg 500 mg, oral, Every 6 hours, First dose on Sun10/17/21 at 1600, (not to exceed 4 grams in 24 hours) calcitRIOL capsule 0.5 mcg (ROCALTROL) Given 10/18/2021 8:24 AM DISTRICT ASSOCIATE JUDGE 0.5 mcg 0.5 mcg, oral, Daily, First dose on Sun10/17/21 at 1730 Given 10/17/2021 6:02 PM DISTRICT ASSOCIATE JUDGE 0.5 mcg calcium carbonate chewable tablet Given 10/18/2021 8:2 4 AM DISTRICT ASSOCIATE JUDGE 600 mg of calcium 600 mg of calcium (TUMS E-X) 600 mg of calcium, oral, 3 times daily, First dose on Sun10/17/21 at 2100, Doses listed are in mg of elemental calcium. Take with food. 750 mg calcium carbonate contains 300 mg of elemental calcium. Given 10/17/2021 8:45 PM DISTRICT ASSOCIATE JUDGE 600 mg of calcium fentaNYL injection 25 mcg (SUBLIMAZE) Given 10/17/2021 12:51 PM DISTRICT ASSOCIATE JUDGE 25 mcg 25 mcg, intravenous, Every 2 min PRN, For pain 4 or greater (maximum 100 mcg). If max dose of Fentanyl is reached and if pain is greater than 4, discontinue Fentanyl: give Hydromorphone, Starting on Sun10/17/21 at 1239, PACU (only) Given 10/17/2021 12:48 PM DISTRICT ASSOCIATE JUDGE 25 mcg Given 10/17/2021 12:44 PM DISTRICT ASSOCIATE JUDGE 25 mcg HYDROmorphone (PF) injection 0.2 mg Given 10/17/2021 1:45 PM DISTRICT ASSOCIATE JUDGE 0.2 mg (DILAUDID) 0.2 mg, intravenous, Every 5 min PRN, moderate pain or score 4-6 of 10, severe pain or score 7-10 of 10, Starting on Sun10/17/21 at 1239, PACU (only), Up to maximum total dose of 2 mg Given 10/17/2021 1:40 PM DISTRICT ASSOCIATE JUDGE 0.2 mg labetalol injection 5 mg (NORMODYNE,AHMADI DATE) Given 10/17/2021 1:16 PM DISTRICT ASSOCIATE JUDGE 5 mg 5 mg, intravenous, Every 15 min PRN, high blood pressure, For SBP>160 mmHG. Hold for heart rate<60, Starting on Sun10/17/21 at 1239, For 2 doses, PACU (only), Follow institution's IV administration guidelines Given 10/17/2021 1:00 PM DISTRICT ASSOCIATE JUDGE 5 mg lactated ringers Continued from OR 10/17/2021 1:01 PM DISTRICT ASSOCIATE JUDGE 20 mL/hr 20 mL/hr 20 mL/hr, intravenous, Continuous, Starting on Sun10/17/21 at 1100, PACU & Post-Op lisinopriL tablet 2.5 mg (PRINIVIL,ZESTR IL) Given 10/18/2021 8:24 AM DISTRICT ASSOCIATE JUDGE 2.5 mg 2.5 mg, oral, Daily, First dose on Sun10/17/21 at 1430 Given 10/17/2021 2:54 PM DISTRICT ASSOCIATE JUDGE 2.5 mg NaCl 0.45 % infusion New Bag 10/17/2021 2:39 PM DISTRICT ASSOCIATE JUDGE 30 mL/hr 30 mL/hr 30 mL/hr, intravenous, [...] Recently Administered Medications Times are shown in DISTRICT ASSOCIATE JUDGE. Scheduled Medication Order 10/16/2021 10/17/2021 10/18/2021 acetaminophen tablet 1,000 mg (TYLENOL) (COMPLETED) 0950 (Given - Provider: Paz Kohli R.N.) 1,000 mg, oral, Once, On Sun10/17/21 at 1000, For 1 dose, Pre-Op, Copy Coordinator, PreOp with sips acetaminophen tablet 1,000 mg (TYLENOL) 220 (Given - Provider: John Velez R.N.) 0405 [...] mcg (SUBLIMAZE) (CANCELED) 1240 (Given - Provider: Nkiia Taylor R.N.)1244 (Given - Provider: Nikia Taylor [...] (COMPLETED) 1300 (Given - Provider: Nikia Taylor RNaomiN.)1316 (Given - Provider: Nikia Taylor R.N.) 5 [...] 1204 documented in this encounter Care Teams Sign Erector Relationship Specialty Start Date End Date Elsewhere, Pcp PCP - General Internal Medicine 10/03/21 documented as of this encounter
--- OUTSIDE RECORDS SUMMARY | 2022-06-20 12:45 | XMS_ITS | Encounter Summary ---
:1955 Author Organization [facility] Address [address] [place] [address] Care Team Providers Name Role Phone Elsewhere, Pcp Primary Care Provider Unavailable Reason for Visit Outpatient (Routine) - Closed Specialty Diagnoses / Procedures Referred By Contact Refer red To Contact General Surgery Diagnoses Goiter Multinodular Nontoxic Estrella Sevilla M.D. [facility] [address] [place] [phone] Referral ID Status Reason Start Date Expiration Date Visits Requ ested Visits Authorized [id number] Closed 09/21/2021 09/21/2022 1 1 Encounter Details Date Type Department Care Team Description 10/04/2021 Comprehensive Visit Division of Victoriano Nguyen M.D. [address] [place] [phone] Goiter Multinodular Endocrine and Zelda Dang M.D. [address] [place] [phone] Nontoxic Metabolic Surgery in [place], [place] [address] [place] [phone] Social History Tobacco Use Types Packs/Day Years [...] How often do you attend voodoo or yazdanism More than 4 time s [...] and coordination of care as described above. GER LEAN documented in this encounter Plan of Treatment Upcoming Encounters Date Type Specialty Care Team Description 07/05/2022 Appointment Radiology Post, Heath Del Real APRN, C.N.P. [address] [place] [phone] (Wo ) documented as of this encounter Visit Diagnoses Diagnosis Goiter Multinodular Nontoxic documented in this encounter Care Teams Chief Security And Safety Officer Relationship Specialty Start Date End Date Elsewhere, Pcp PCP - General Internal Medicine 10/03/21 documented as of this encounter
--- OUTSIDE RECORDS SUMMARY | 2022-06-20 12:45 | XMS_ITS | Encounter Summary ---
:1955 Author Organization [facility] Address [address] [place] [address] Care Team Providers Name Role Phone Unavailable Primary Care Provider Unavailable Reason for Referral Outpatient (Routine) - Pending Review Specialty Diagnoses / Procedures Referred By Contact Refer red To Contact Diagnoses Goiter Multinodular Nontoxic Zelda Dang M.D. Procedures FNA Neck [address] [place], [place] [phone] Referral ID Status Reason Start Date Expiration Date Visits V isits Requested Authorized [id number] Pending 09/21/2021 09/21/2022 1 1 Review DENTIAL INTERIOR DESIGNER Reason for Visit Reason Comments Other END Thyroid USG Outpatient (Routine) - Closed Specialty Diagnoses / Procedures Referred By Contact Refer red To Contact Diagnoses Goiter Multinodular Nontoxic Estrella Sevilla M.D. [facility] Procedures END Thyroid USG [address] [place] [phone] Referral ID Status Reason Start Date Expiration Date Visits Requ ested Visits Authorized [id number] Closed 09/21/2021 09/21/2022 1 1 Encounter Details Date Type Department Care Team Description 09/21/2021 Procedure visit Division of Estrella Sevilla M .D. [address] [place] [phone] Goiter Multinodular Endocrinology in Zelda Dang M.D. [address] [place] [phone] Nontoxic [place], [place] 200 [place] [phone] Social History Tobacco Use Types Packs/Day Years [...] How often do you attend sikhism or pentecostal More than 4 time s [...] 11:00 AM CST REASON FOR VISIT Colleen Yani NarvaezDejon Jeremiahmonica presents for a Fine Needle Aspiration of the Right thyroid nodule and Left thyroid nodule. HISTORY OF PRESENT ILLNESS Anticoagulation therapy: No. Recent INR: NA. Previous reaction to topical anesthetic: No History of easy bruising or bleeding: No ASSESSMENT Pain Score Pre-procedure: 0/10 Pain Score Post-procedure: 0/10 Please see Education Activity within medical record for completed patient education. DENTIAL INTERIOR DESIGNER documented in this encounter Procedure Notes Zelda [...] the procedure well. Post procedure pain 0/10 DENTIAL INTERIOR DESIGNER documented in this encounter Plan of Treatment Upcoming Encounters Date Type Specialty Care Team Description 07/05/2022 Appointment Radiology Post, Heath Del Real APRN, C.N.P. [address] [place], [place] [phone] (Wo rk) documented as of this encounter Procedures Procedure Name Priority Date/Time Associated Diagnosis Comme nts IN FNA BX W/US GDN Routine 09/21/2021 12:00 Goiter Multinodula r Results for this EA ADDL PM RESIDENTIAL INTERIOR DESIGNER Nontoxic procedure are i n the results section. IN FNA BX W/US GDN Routine 09/21/2021 12:00 Goiter Multinodula r Results for this 1ST LES PM RESIDENTIAL INTERIOR DESIGNER Nontoxic procedure are i n the results section. CYTOLOGY FINE Routine 09/21/2021 10:46 Goiter Multinodular Res ults for this NEEDLE ASPIRATION AM RESIDENTIAL INTERIOR DESIGNER Nontoxic procedure are in (INCLUDES CORE the results BIOPSIES section. documented in this encounter Results IN FNA BX W/US GDN 1ST LES, IN FNA BX W/US GDN EA ADDL (09/21/2021 12:00 PM RESIDENTIAL INTERIOR DESIGNER) Narrative MMODAL - 09/21/2021 12:00 PM RESIDENTIAL INTERIOR DESIGNER Zelda Dnag M.D. ? 09/22/2021 ??7:57 AM FNA Neck [...] Aspiration (including core biopsies) (09/21/2021 10:46 AM RESIDENTIAL INTERIOR DESIGNER) Component Value Ref Test Analysis Performed At [facility] gist Range Method Time Signature 09/21/2021 DTL 2:09 PM RESIDENTIAL INTERIOR DESIGNER Participated in Josh Nance, 09/21/2021 DTL the Interpretation Jose Alberto-Patholog 2:09 PM RESIDENTIAL INTERIOR DESIGNER y Resident Report Elizabeth Green M.D. 09/21/2021 DTL electronically 2:09 PM RESIDENTIAL INTERIOR DESIGNER signed by I verify that I have examined all relevant slides/materials for the specimen(s) and rendered or confirmed the diagnosis. Gross Description A: ?? Received 16 alcohol-fixed smears. 09/21/2021 DTL 2:09 PM RESIDENTIAL INTERIOR DESIGNER B: ?? Received 13 alcohol-fixed smears. Source A. Thyroid, Right, fine needle aspiration 09/21/2021 DTL 2:09 PM RESIDENTIAL INTERIOR DESIGNER B. Thyroid, Left, fine needle aspiration Interpretation A. Thyroid, Right, fine needle aspiration (smears): 09/21/2021 DTL Negative 2:09 PM RESIDENTIAL INTERIOR DESIGNER for malignancy. Cytologic features consistent with benign thyroid nodule. B. Thyroid, Left, fine needle aspiration (smears): Negative for malignancy. Cytologic features consistent with benign thyroid nodule. Specimen (Source) Anatomical Collection Method Collection Time Re ceived Time Location / / Volume Laterality Aspirate 09/21/2021 10:46 (Thyroid, Right) AM RESIDENTIAL INTERIOR DESIGNER Aspirate 09/21/2021 10:47 (Thyroid, Left) AM RESIDENTIAL INTERIOR DESIGNER Narrative This result has an attachment that is no t available. Estrella Sevilla M.D. LAB SURG PATH ORDERABLES Performing Organization Address City/State/ZIP Code Phon e Number [facility] - [address] [place], [place] [address] [facility] [address] Laboratories-[facility] [address] documented in this encounter Visit Diagnoses Diagnosis Goiter Multinodular Nontoxic documented in this encounter Administered Medications Inactive Administered Medications - up to 3 most recent administrations Medication Order MAR Action Action Date Dose Rate Site lidocaine 4 % cream 1 Given 09/21/2021 10:37 AM 1 application application (LMX) RESIDENTIAL INTERIOR DESIGNER 1 application (5 g), topical, As needed, Apply for local anesthesia, Starting on Sun09/21/21 at 0932 documented in this encounter
--- OUTSIDE RECORDS SUMMARY | 2022-06-20 12:45 | XMS_ITS | Encounter Summary ---
:1955 Author Organization [facility] Address [address] [place] [address] Care Team Providers Name Role Phone Elsewhere, [...] Expiration Date Visits Requ ested Visits Authorized [id number] 1 1 Encounter Details Date Type Department Care Team Description 10/17/2021 Surgery [facility]ST DIANE MARCELO OR Paige Nguyen, THYROIDECTOMY, NEAR [address] [place], [place] [address] [facility] [id number] [place], [place] [phone] (Wo rk) Social History Tobacco Use Types [...] How often do you attend pentecostal or pentecostal More than 4 time s [...] Comments Blood Pressure 172/84 10/17/2021 1:30 PM ICE SKATING COACH Pulse 75 10/17/2021 1:35 PM ICE SKATING COACH Temperature 36.6 ??C (97.9 ??F) 10/17/2021 12:35 PM ICE SKATING COACH Respiratory Rate 18 10/17/2021 1:35 PM ICE SKATING COACH Oxygen Saturation 98% 10/17/2021 1:35 PM ICE SKATING COACH Inhaled Oxygen Concentration - - Weight 99.2 kg (218 lb 11.1 oz) 10/17/2021 8:45 AM ICE SKATING COACH Height 155 cm (5' 1.02) 10/17/2021 8:45 AM ICE SKATING COACH Body Mass Index 41.29 10/17/2021 8:45 AM ICE SKATING COACH documented in this encounter Discharge Summaries Torin Chavez M.D. - 10/18/2021 7:50 AM CST DISCHARGE SUMMARY BRIEF OVERVIEW Hospital: [facility] Discharge Provider: Paige Nguyen M.D. Primary Team: [...] thyroidectomy, 10/17/2021. The patient was admitted to [facility]. The patient was taken to [...] were provided to the patient and caregiver(s). SKATING COACH documented in this encounter Discharge Instructions AttachmentsThe following attachments cannot be sent through Care Everywhere. Calcitriol (By mouth) (Namibian)Levothyroxine (By mouth) (Namibian)Antacid, Calcium and Magnesium (By mouth) (Namibian)documented in this encounter Medications at Time of [...] in [address]. [address] Nguyen. SKATING COACH Lora Garrett Pharm.D., R.Ph. - 10/17/2021 8:53 [...] -- Take 1 tablet by mouth daily. qrgjrrg-yrbmiufmk-aizw tablet 10/16/2021 -- -- Take 3 tablets [...] -- Take 2.5 mg by mouth daily. [facility] Prescription (Allergy Immunotherapy) 10/17/2021 06/27/12 -- Take 1 each by mouth as needed (allergies). Homeopathic remedy drops multivitamin (multivitamin) tablet 10/16/2021 -- -- Take 1 tablet by mouth daily. omega-3 fatty acids 1,250 mg capsule 10/16/2021 -- -- Take 1,200 mg by mouth daily. RED YEAST RICE ORAL 10/16/2021 -- -- Take 1 tablet by mouth 2 (two) times a day. SKATING COACH documented in this encounter Nursing Notes Anabel Rosales R.N. - 10/18/2021 10:33 AM CST Patient stable at discharge. Education was reviewed with patient. Any further questions were answered. Pain was well controlled with oral pain medications. Patient discharged home with significant other. Patient needs addressed. SKATING COACH Lora Rebolledo R.N. - 10/18/2021 5:12 AM CST Shift Goals: Clinical Goals for the Shift: rest overnight Identify possible barriers to meeting goals/advancing plan of care: none End of Shift Summary: Patient rested well overnight with minimal pain which was managed with currentregimen. Vitals remained stable with no acute events overnight. SKATING COACH documented in this encounter OR Notes Op Note - Paige Nguyen M.D. - 10/17/2021 10:51 AM CST Pre-op Diagnosis Goiter Multinodular Nontoxic Post-op Diagnosis Goiter Multinodular Nontoxic A kindergarten instructional assistant actively participated and was necessary for [...] was mobilized in a similar fashion. An vector control assistant was necessary to help expose and [...] without complication...Dictated by Dr. Patrick Nguyen M.D. SKATING COACH Brief Op Note - Torin Chavez M.D. - 10/17/2021 10:51 AM CST Pre-op Diagnosis Goiter Multinodular Nontoxic Post-op Diagnosis Goiter Multinodular Nontoxic Findings Multinodular goiter. Near total thyroidectomy Complications None Darius Chavez M.D. SKATING COACH documented in this encounter Miscellaneous Notes Hospital Course - Torin Chavez M.D. - 10/17/2021 1:49 PM CST Multinodular goiter status post near total thyroidectomy, 10/17/2021. The patient was admitted to [facility]. The patient was taken to [...] patient's home medications were restarted as indicated. SKATING COACH documented in this encounter Plan of Treatment Upcoming Encounters Date Type Specialty Care Team Description 07/05/2022 Appointment Radiology Post, Heath Del Real APRN, C.N.P. [address] [place] [address] [phone] (Wo rk) documented as of this encounter Procedures Procedure Name Priority Date/Time Associated Diagnosis Comme nts CALCIUM, TOT, S/P Routine 10/18/2021 7:03 Results for this AM ICE SKATING COACH procedure are i n the results section. PARATHYROID HORMONE Routine 10/17/2021 2:42 Resul ts for this (PTH), S PM ICE SKATING COACH procedure are i n the results section. ADULT OXYGEN THERAPY Routine 10/17/2021 12:39 PM ICE SKATING COACH SURGICAL PATHOLOGY, Routine 10/17/2021 11:23 Goiter Multinodul ar Results for this [facility] AM ICE SKATING COACH Nontoxic procedure are i n the results section. THYROIDECTOMY - TOTAL 10/17/2021 10:04 Goiter Multinod ular AM ICE SKATING COACH Nontoxic documented in this encounter Results (ABNORMAL) Calcium, Total (10/18/2021 7:03 AM ICE SKATING COACH) P athologist Signature Calcium, 7.9 (L) 8.8 - 10.2 10/18/2021 DTL Total, S mg/dL 7:43 AM ICE SKATING COACH Specimen Anatomical Collection Method Collection Time Receive d Time (Source) Location / / Volume Laterality Blood (Blood, 10/18/2021 7:03 AM 10/19/19 7:03 Venous) ICE SKATING COACH AM ICE SKATING COACH Torin Chavez M.D. LAB BLOOD ADD-ON Performing Organization Address City/[facility] Phon e Number [facility] - [address] [place], [place] [address] [facility] [place] [address] Laboratories-[address] (ABNORMAL) Parathyroid Hormone (PTH) (10/17/2021 2:42 PM ICE SKATING COACH) Patholo gist Method Time [facility] Parathyroid <6.0 (L) 15 - 65 10/17/2021 DTL Hormone (PTH), S pg/mL 3:37 PM ICE SKATING COACH Specimen Anatomical Collection Method Collection Time Receive d Time (Source) Location / / Volume Laterality Blood (Blood, 10/17/2021 2:42 PM 10/17/19 3:09 Venous) ICE SKATING COACH PM ICE SKATING COACH Torin Chavez M.D. LAB BLOOD ADD-ON Performing Organization Address City/[facility] Phon e Number [facility] - [address] [place], [place] [address] [place] [phone] Laboratories-[address] Surgical Pathology, Frozen Lab (10/17/2021 11:23 AM ICE SKATING COACH) Component Value Ref Test Analysis Performed Pathologis t Range Method Time At [facility] 10/20/2021 METH 4:20 PM ICE SKATING COACH Report Anca Salazar M.D. 10/20/2021 METH electronically 4:20 PM signed by ICE SKATING COACH I verify that I have examined all relevant slides/materials for the specimen(s) and rendered or confirmed the diagnosis. Gross Description A. ??Received fresh labeled left thyroid is an 18 gram 10/20/2021 METH partial thyroidectomy with 7.1 x 3.2 x 2.6 cm left lobe. 4:20 PM The lobe is received disrupted. ??There is a 1 x 0.6 x 0.4 ICE SKATING COACH cm reyes-white area identified. ??The remainder of the thyroid lobe is uniformly nodular. ??Life Skills Specialist tissue submitted for permanent sections. ??Grossed by Parvez Salazar M.D. -Pathology Resident. B. ??Received fresh labeled right thyroid is a 40 gram partially disrupted partial thyroidectomy with a 7.1 x 4.9 x 3.5 cm right lobe, in aggregate. ??The thyroid parenchyma demonstrates multiple reyes-brown soft nodules, 0.5 to 5.1 cm. ??The largest nodule is detached and shows hemorrhagic and cystic spaces. ??Life Skills Specialist tissue submitted for permanent sections. ??Grossed by Derian Rodgers PA([facility]). Block Summary A Left thyroid 10/20/2021 METH A1 Left thyroid 4:20 PM A2 Left thyroid independent sales representative section C ST B Right thyroid B1 Right superior B2 Right mid B3 Right inferior B4 Dominant detached nodule Interpretation FINAL DIAGNOSIS 10/20/2021 METH 4:20 PM A. ??Thyroid, left, left lobectomy: ??Hyperplastic nodules. ICE SKATING COACH Mild chronic thyroiditis. B. ??Thyroid, right, right lobectomy: ??Hyperplastic in adenomatous nodules with degenerative features. ??Mild chronic thyroiditis. Congo red performed at [facility] on section from block B4 is negative. Specimen (Source) Anatomical Collection Method Collection Time Re ceived Time Location / / Volume Laterality Tissue (Thyroid) 10/17/2021 11:23 AM ICE SKATING COACH Tissue (Thyroid) 10/17/2021 11:32 AM ICE SKATING COACH Narrative This result has an attachment that is no t available. Paige Nguyen M.D. LAB SURG PATH ORDERABLES Performing Organization Address City/State/[facility] Code Phon e Number [facility] - [address] [place] [phone] [place] [address] Laboratories-[facility] [address] [facility] documented in this encounter Visit Diagnoses Diagnosis Goiter Multinodular Nontoxic - Primary Goiter Multinodular Nontoxic Goiter Multinodular Nontoxic documented in this encounter Admitting Diagnoses Diagnosis Goiter Multinodular Nontoxic documented in this encounter Administered Medications Inactive Administered Medications - up to 3 most recent administrations Medication Order MAR Action Action Date Dose Rate Site acetaminophen tablet 1,000 mg Given 10/17/2021 9:50 AM ICE SKATING COACH 1,000 mg (TYLENOL) 1,000 mg, oral, Once, On 10/17/21 at 1000, For 1 dose, Pre-Op, Bank President, PreOp with sips acetaminophen tablet 1,000 mg (TYLENOL) Given 10/18/2021 9:23 AM ICE SKATING COACH 1,000 mg 1,000 mg, oral, Every 6 hours, First dose (after last modification) on Sun10/17/21 at 2200, (not to exceed 4 grams in 24 hours) Given 10/18/2021 4:05 AM ICE SKATING COACH 1,000 mg Given 10/17/2021 10:09 PM ICE SKATING COACH 1,000 mg acetaminophen tablet 500 mg (TYLENOL) Given 10/17/2021 3:54 PM ICE SKATING COACH 500 mg 500 mg, oral, Every 6 hours, First dose on Sun10/17/21 at 1600, (not to exceed 4 grams in 24 hours) calcitRIOL capsule 0.5 mcg (ROCALTROL) Given 10/18/2021 8:24 AM ICE SKATING COACH 0.5 mcg 0.5 mcg, oral, Daily, First dose on Sun10/17/21 at 1730 Given 10/17/2021 6:02 PM ICE SKATING COACH 0.5 mcg calcium carbonate chewable tablet Given 10/18/2021 8:2 4 AM ICE SKATING COACH 600 mg of calcium 600 mg of calcium (TUMS E-X) 600 mg of calcium, oral, 3 times daily, First dose on Sun10/17/21 at 2100, Doses listed are in mg of elemental calcium. Take with food. 750 mg calcium carbonate contains 300 mg of elemental calcium. Given 10/17/2021 8:45 PM ICE SKATING COACH 600 mg of calcium cellulose, oxidized 1 X 2 pad (SURGICE L) Given 10/17/2021 11:55 AM ICE SKATING COACH 1 each As needed, Starting on Sun10/17/21 at 1154, Intra-Op Given 10/17/2021 11:54 AM ICE SKATING COACH 1 each fentaNYL injection 25 mcg (SUBLIMAZE) Given 10/17/2021 12:51 PM ICE SKATING COACH 25 mcg 25 mcg, intravenous, Every 2 min PRN, For pain 4 or greater (maximum 100 mcg). If max dose of Fentanyl is reached and if pain is greater than 4, discontinue Fentanyl: give Hydromorphone, Starting on Sun10/17/21 at 1239, PACU (only) Given 10/17/2021 12:48 PM ICE SKATING COACH 25 mcg Given 10/17/2021 12:44 PM ICE SKATING COACH 25 mcg HYDROmorphone (PF) injection 0.2 mg Given 10/17/2021 1:45 PM ICE SKATING COACH 0.2 mg (DILAUDID) 0.2 mg, intravenous, Every 5 min PRN, moderate pain or score 4-6 of 10, severe pain or score 7-10 of 10, Starting on Sun10/17/21 at 1239, PACU (only), Up to maximum total dose of 2 mg Given 10/17/2021 1:40 PM ICE SKATING COACH 0.2 mg labetalol injection 5 mg (NORMODYNE,AHMADI DATE) Given 10/17/2021 1:16 PM ICE SKATING COACH 5 mg 5 mg, intravenous, Every 15 min PRN, high blood pressure, For SBP>160 mmHG. Hold for heart rate<60, Starting on Sun10/17/21 at 1239, For 2 doses, PACU (only), Follow institution's IV administration guidelines Given 10/17/2021 1:00 PM ICE SKATING COACH 5 mg lactated ringers Continued from OR 10/17/2021 1:01 PM ICE SKATING COACH 20 mL/hr 20 mL/hr 20 mL/hr, intravenous, Continuous, Starting on Sun10/17/21 at 1100, PACU & Post-Op lisinopriL tablet 2.5 mg (PRINIVIL,ZESTR AK) Given 10/18/2021 8:24 AM ICE SKATING COACH 2.5 mg 2.5 mg, oral, Daily, First dose on Sun10/17/21 at 1430 Given 10/17/2021 2:54 PM ICE SKATING COACH 2.5 mg NaCl 0.45 % infusion New Bag 10/17/2021 2:39 PM ICE SKATING COACH 30 mL/hr 30 mL/hr 30 mL/hr, intravenous, [...] Recently Administered Medications Times are shown in ICE SKATING COACH. Scheduled Medication Order 10/16/2021 10/17/2021 10/18/2021 acetaminophen tablet 1,000 mg (TYLENOL) (COMPLETED) 4820 (Given - Provider: Rey DavalosNNaomi) 1,000 mg, oral, Once, On Sun10/17/21 at 1000, For 1 dose, Pre-Op, Bank President, PreOp with sips acetaminophen tablet 1,000 mg [...] mg (DILAUDID) (CANCELED) 1340 (Given - Provider: Rey JulesN.)1345 (Given - Provider: Niika Taylor R.N.) 0.2 mg, intravenous, Every 5 min PRN, mo derate pain or score 4-6 of 10, severe pain or score 7-10 of 10, Starting on Sun10/17/21 at 1239, PACU (only), Up to maximum total dose of 2 mg labetalol injection 5 mg (NORMODYNE,TRANDATE) (COMPLETED) 1300 (Given - Provider: Nikia Taylor R.N.)1316 (Given - Provider: Nikia Taylor R.N.) [...] 1204 documented in this encounter Care Teams Spring Repairer Helper Hand Relationship Specialty Start Date End Date Elsewhere, Pcp PCP - General Internal Medicine 10/03/21 documented as of this encounter
--- OUTSIDE RECORDS SUMMARY | 2022-06-20 12:45 | XMS_ITS | Encounter Summary ---
:1955 Author Organization [facility] Address [address] [place] [address] Care Team Providers Name Role Phone Elsewhere, Pcp Primary Care Provider Unavailable Encounter Details Date Type Department Care Team Description 10/14/2021 Lab Department of Paige Doll Go iter [facility] [place] in [place], [address] [place] [id number] [place] [address] [phone] Social History Tobacco Use Types Packs/Day Years [...] How often do you attend worship or church More than 4 time s [...] Post, Heath Del Real APRN, C.N.P. [address] [place] [address] [phone] (Wo rk) documented as of this encounter Procedures Procedure Name Priority Date/Time Associated Diagnosis Comme nts SARS CORONAVIRUS-2 Routine 10/14/2021 10:27 Goiter Multinodula r Results for this RNA, V AM AUTOMATION CONTROL INTEGRATOR Nontoxic procedure are i n the results section. documented in this encounter Results SARS Coronavirus-2 RNA, V Asymptomatic (10/14/2021 10:27 AM AUTOMATION CONTROL INTEGRATOR) [facility] Method Time Signature SARS-CoV-2 Swab, 10/14/2021 ECLR Specimen Nasopharynx 10:10 PM Source AUTOMATION CONTROL INTEGRATOR SARS CoV-2 Undetected Undetected 10/14/2021 ECLR RNA, TMA 10:10 PM AUTOMATION CONTROL INTEGRATOR Comment: SARS-CoV-2 RNA absent. This result does not rule out COVID-19 in the patient, as the sensitivity of the test depends o n the timing of the specimen collection and the quality of the specim en. Result should be correlated with patient's history and clinical presentat ion. ----ADDITIONAL INFORMATION---- This molecular amplification test was pe rformed using the Aptima SARS-CoV-2 assay ([employer] on the Instilling Valuess tem under emergency use authorization (EUA) by the U.S. Food and Drug Administ ration. Fact sheets for this EUA assay can be fo und at the following links: For Healthcare Providers: https://www.fd a.gov/media/589328/download For Patients: https://www.fda.gov/media/ 542330/download Specimen Anatomical Collection Method Collection Time Receive d Time (Source) Location / / Volume Laterality Varies 10/14/2021 10:27 10/14/2021 2:43 (Nasopharynx) AM AUTOMATION CONTROL INTEGRATOR PM AUTOMATION CONTROL INTEGRATOR Paige Nguyen M.D. LAB MICROBIOLOGY - GENERAL O RDERABLES Performing Organization Address City/State/ZIP Code Phon e Number [facility]- [address] [place] [phone] [facility] [place] [address] [address] documented in this encounter Visit Diagnoses Diagnosis Goiter Multinodular Nontoxic documented in this encounter Additional Health Concerns Infection Onset Date Last Indicated Resolved Time COVID19 Pending 10/14/2021 10/14/2021 10/14/2021 10:11 PM AUTOMATION CONTROL INTEGRATOR documented as of this encounter Care Teams Warm In Worker Relationship Specialty Start Date End Date Elsewhere, Pcp PCP - General Internal Medicine 10/03/21 documented as of this encounter
--- OUTSIDE RECORDS SUMMARY | 2022-06-20 12:45 | XMS_ITS | Encounter Summary ---
:1955 Author Organization [facility] Address [address] [place] [address] Care Team Providers Name Role Phone Unavailable Primary Care Provider Unavailable Encounter Details Date Type Department Care Team Description 09/23/2021 Documentation Division of Endocrinology in Estrella benson M.D. [place], [place] [address] [facility] [address] [place] [phone] (Wo rk) Social History Tobacco Use Types [...] How often do you attend gnosticist or presybeterian More than 4 time s [...] or slept in a mcc (including now)? Education Answer Date Recorded What [...] daily for optimization pre surgery. -TSH 1.7 MODELING SPECIALIST documented in this encounter Plan of Treatment Upcoming Encounters Date Type Specialty Care Team Description 07/05/2022 Appointment Radiology Post, Heath Del Real APRN, C.N.P. [address] [place] [address] [phone] (Wo rk) documented as of this encounter Visit Diagnoses Not on filedocumented in this encounter
--- OUTSIDE RECORDS SUMMARY | 2022-06-20 12:45 | XMS_ITS | Encounter Summary ---
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 [place], [place] [address] [place] [address] [place], [place] [phone] (Wo rk) Anesthesia Record Procedure Summary Procedure Name Responsible Anesthesia Start Anesthesia Stop Time Anesthesiologist Time THYROIDECTOMY, NEAR Lion Singh, 10/17/21 1019 10/17 1235 NAVA. Jose Alberto, JNaomiDNaomi Events Date Time Event Comment 10/17/2021 1000 [...] h andoff to the receiving staff during [facility] we 1. Identified the patient 2. [...] by Placement Time: 0907; Lam Aguila Sa ra Temitope, Catheter Size: 20 G; R.N. Orientation: Anterior, Left, Lower; Location: Forearm; Site Prep: Chlorhexidine (Preferred); Insertion Attempts: 1; Removal Date: 10/18/21; Removal Time: 1000; Removal Reason: Patient discharged ETT Placement Date: 10/17/21; 10/17/21 1030 by 10/17 1227 by Placement Time: 1030 Andrew Rivero Mele, Nic holas J, (created via procedure R.N. R.N. documentation); Mask Ventilation: Oral/Nasal airway needed; Type: [...] How often do you attend shinto or mosque More than 4 time s [...] - 10/17/2021 1:35 PM CST Patient: Colleen Tolentino Procedure Summary Date: 10/17/21 Room / Location: [address] / [facility] in [place], [place] Anesthesia Start: 1019 Anesthesia Stop: Procedure: [...] Post Op nausea/vomiting: none Hydration status: euvolemic T CANNER Anesthesia Procedure Notes - Andrew Rivero R.N., CCRN - 10/17/2021 10:41 AM CSTAssociated Order(s): Airway Airway Date/Time: 10/17/2021 10:30 AM Performed by: Andrew Rivero R.N., CCRN Authorized by: Lion Singh M.D., Nilam Patient location during procedure: OR / Procedure Area PROCEDURE DETAILS: Mask difficulty assessment: oral/nasal airway needed Final airway type: video laryngoscope Laryngeal Manipulation: no Final best view of glottic structures - Cormack/Lehane Score: grade 1 ETT location: oral VL device: glide scope [place] scope blade size: 3 Adult tube size: [...] successful Airway event: no complications ATTESTATION STATEMENT T CANNER Anesthesia Preprocedure Evaluation - Lion Singh M.D., Nilam - 10/17/2021 10:00 AM CST Preprocedure Anesthesia & H&P Assessment Procedure Summary Date/Time: 10/17/21 1049 Procedures: THYROIDECTOMY, TOTAL. (N/A ) PINPOINT indocyanine green fluorescent parathyroid angiography. 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 Location: [address] / [facility] in [place], [place] Providers: Paige Nguyen M.D. Pertinent components [...] with patient /legal guardian or through an legal activity adjudicator. Risks/Benefits/Alternatives of Blood transfusion discussed with patient / legal guardian, including an opportunity to ask questions and/or decline some or all transfusion therapies. The patient / legalguardian consented to the use of all blood products, as deemed medically necessary Approval to Proceed: approved for anesthesia T CANNER documented in this encounter Plan of Treatment Upcoming Encounters Date Type Specialty Care Team Description 07/05/2022 Appointment Radiology Post, Heath Del Real APRN, C.N.P. [address] [place] [address] [phone] (Wo rk) documented as of this encounter Procedures Procedure Name Priority Date/Time Associated Comments Diagnosis LDA ANE ENDOTRACHEAL Routine 10/17/2021 10:30 Res ults for this AIRWAY AM FRUIT CANNER procedure are i n the results section. documented in this encounter Results LDA ANE ENDOTRACHEAL AIRWAY (10/17/2021 10:30 AM FRUIT CANNER) Narrative Andrew Rivero R.N., ROVERTON - 10:30 AM FRUIT CANNER Andrew Rivero R.N., BEST ? 10/17/2021 10:41 AM Airway Date/Time: 10/17/2021 10:30 AM Performed by: Andrew Rivero R.N., JEY RN Authorized by: Lion Singh M. D., Nilam Patient location during procedure: OR / Procedure Area PROCEDURE DETAILS: Mask difficulty assessment: oral/nasal a irway needed Final airway type: video laryngoscope Laryngeal Manipulation: no ?? Final best view of glottic structures - Cormack/Lehane Score: grade 1 ETT location: oral VL device: glide scope [place] scope blade size: 3 Adult tube size: [...] dexAMETHasone injection (DECADRON) Given 10/17/2021 10:43 AM FRUIT CANNER 4 mg intravenous, As needed, Starting on Sun10/17/21 at 1043, Anesthesia Intra-op fentaNYL injection (SUBLIMAZE) Given 10/17/2021 11:55 AM FRUIT CANNER 25 mcg intravenous, As needed, Starting on Sun10/17/21 at 1026, Anesthesia Intra-op Given 10/17/2021 11:32 AM FRUIT CANNER 25 mcg Given 10/17/2021 10:44 AM FRUIT CANNER 50 mcg lactated ringers New Bag 10/17/2021 10:23 AM FRUIT CANNER intravenous, Continuous Infusion: Per Instructions PRN, Starting on Sun10/17/21 at 1023, Anesthesia Intra-op lidocaine (PF) (cardiac) injection Given 10/17/2021 12:07 PM FRUIT CANNER 40 mg intravenous, As needed, Starting on Sun10/17/21 at 1028, Anesthesia Intra-op Given 10/17/2021 10:28 AM FRUIT CANNER 60 mg ondansetron (PF) injection (ZOFRAN) Given 10/17/2021 11:57 AM FRUIT CANNER 4 mg intravenous, As needed, Starting on Sun10/17/21 at 1157, Anesthesia Intra-op phenylephrine injection Given 10/17/2021 10:43 AM FRUIT CANNER 100 mcg intravenous, As needed, Starting on Sun10/17/21 at 1043, Anesthesia Intra-op propofol 10 mg/mL infusion Rate/Dose 10/17/2021 75 mcg/kg/min 44.64 (DIPRIVAN) Change 12:14 PM FRUIT CANNER mL/hr intravenous, Continuous Infusion: Per Instructions PRN, Starting on Sun10/17/21 at 1029, Anesthesia Intra-op Rate/Dose Change 10/17/2021 12:12 PM FRUIT CANNER 100 mcg/kg/min 59.52 mL/hr Rate/Dose Change 10/17/2021 12:08 PM FRUIT CANNER 125 mcg/kg/min 74.4 mL/hr propofoL injection (DIPRIVAN) Given 10/17/2021 10:58 AM FRUIT CANNER 20 mg intravenous, As needed, Starting on Sun10/17/21 at 1028, Anesthesia Intra-op Given 10/17/2021 10:49 AM FRUIT CANNER 20 mg Given 10/17/2021 10:39 AM FRUIT CANNER 20 mg remifentaniL 20 mcg/mL in NaCl New Bag 10/17/2021 10:29 0.2 mc g/kg/min 59.52 mL/hr 0.9% 100 mL infusion (ULTIVA) AM FRUIT CANNER intravenous, Continuous Infusion: Per Instructions PRN, Starting on Sun10/17/21 at 1029, Anesthesia Intra-op succinylcholine (PF) injection (ANECTINE ) Given 10/17/2021 10:28 AM FRUIT CANNER 100 mg intravenous, As needed, Starting on Sun10/17/21 at 1028, Anesthesia Intra-op documented in this encounter Care Teams Financial Sales Professional Relationship Specialty Start Date End Date Elsewhere, Pcp PCP - General Internal Medicine 10/03/21 documented as of this encounter
--- OUTSIDE RECORDS SUMMARY | 2022-06-20 12:45 | XMS_ITS | Encounter Summary ---
:1955 Author Organization [facility] Address [address] [place] [address] Care Team Providers Name Role Phone Elsewhere, Pcp Primary Care Provider Unavailable Reason for Referral Outpatient (Routine) - Authorized Specialty Diagnoses / Procedures Referred By Contact Refer red To Contact Diagnoses Goiter Multinodular Nontoxic Heriberto Gómez P.A.-C., [facility] Procedures Laryngoscopy M.S. [address] [place] [address] Referral ID Status Reason Start Date Expiration Date Visits V isits Requested Authorized [id number] Authorized 10/04/2021 10/04/2022 1 1 TEGY EXECUTION CONSULTANT Reason for Visit Outpatient (Routine) - Closed Specialty Diagnoses / Procedures Referred By Contact Refer red To Contact Diagnoses Goiter Multinodular Nontoxic Estrella Sevilla M.D. [facility] Procedures Vocal cord check [address] [place] [address] Referral ID Status Reason Start Date Expiration Date Visits Requ ested Visits Authorized [id number] Closed 09/21/2021 09/21/2022 1 1 Encounter Details Date Type Department Care Team Description 10/04/2021 Diagnostic Department of Heriberto Gómez Multin odular Otorhinolaryngology mary lou Cates P.A.-C., [facility] [place], [place] M.S. [address] [facility] [address] [place] [address] [place], [place] [phone] Social History Tobacco Use Types Packs/Day Years [...] How often do you attend hindu or episcopal More than 4 time s [...] as of this encounter Procedure Notes Heriberto Gómez, P.A.-C., M.S. - 10/04/2021 11:00 AM CSTAssociated Order(s): Laryngoscopy Post-Procedure Diagnose(s): Goiter Multinodular Nontoxic Laryngoscopy Date/Time: 10/04/2021 10:59 AM Performed by: Heriberto Gómez P.A.-C. MNaomiS. Authorized by: Heriberto Gómez P.A.-C., MNaomiSNaomi PROCEDURE NOTE: PRE-OPERATIVE VOCAL CORD CHECK Procedure: [...] evidence of vocal fold paresis or paralysis TEGY EXECUTION CONSULTANT documented in this encounter Plan of Treatment Upcoming Encounters Date Type Specialty Care Team Description 07/05/2022 Appointment Radiology Post, Heath Del Real APRN, C.N.P. [address] [place] [phone] (Wo rk) documented as of this encounter Procedures Procedure Name Priority Date/Time Associated Diagnosis Comme nts LARYNGOSCOPY Routine 10/04/2021 10:59 AM Goiter Multinodular R esults for this STRATEGY EXECUTION CONSULTANT Nontoxic procedure are i n the results section. documented in this encounter Results Laryngoscopy (10/04/2021 10:59 AM STRATEGY EXECUTION CONSULTANT) Narrative Heriberto Gómez P.A.-C., M.S. - 022 10:59 AM STRATEGY EXECUTION CONSULTANT Heriberto Gómez P.A.-C., M.S. ? 10/04/2021 11:00 AM Laryngoscopy Date/Time: 10/04/2021 10:59 AM Performed by: Heriberto Gómez P.A.-C. MNaomiS. Authorized by: Heriberto Gómez P.A.-C. MNaomiSNaomi Heriberto Gómez P.A.-C., M.S. ENT ORDERABLES documented in this encounter Visit Diagnoses Diagnosis Goiter Multinodular Nontoxic documented in this encounter Care Teams Bushing And Broach Operator Relationship Specialty Start Date End Date Elsewhere, Pcp PCP - General Internal Medicine 10/03/21 documented as of this encounter
--- OUTSIDE RECORDS SUMMARY | 2022-06-20 12:45 | XMS_ITS | Encounter Summary ---
:1955 Author Organization [facility] Address [address] [place] [address] Care Team Providers Name Role Phone Unavailable Primary Care Provider Unavailable Encounter Details Date Type Department Care Team Description 09/21/2021 Hospital Encounter Department of Estrella Sevilla Goiter Multinodular Laboratory Medicine M.DNaomi Nontoxic and Pathology, [address] [place] [address] in [place], [place] [phone] [place] [address] [place], [place] (Work) [phone] Social History Tobacco Use Types Packs/Day Years [...] How often do you attend mandaen or lutheran More than 4 time s [...] mg(1,250mg) -125 mouth daily. unit per tablet nqqxrjp-wdaxizrwe-vcfo Take 3 tablets by 0 10/18/2021 tablet mouth daily. Calcium 1000 mg/magnesium 500 mg/zinc 25 mg cholecalciferol Take 2,000 Units by 0 10/18/2021 (for_VITAMIN D3) 2,000 mouth daily. Unit capsule omega 7-ytp-gyp-fish oil Take 1 capsule by 0 /04/201410/03/2021 600 mg-216 mg- 324 mouth daily. mg-1,200 mg capsule,delayed release(DR/EC) documented as of this encounter Plan of Treatment Upcoming Encounters Date Type Specialty Care Team Description 07/05/2022 Appointment Radiology Post, Heath Del Real APRN, C.N.P. [address] [place], [place] [phone] (Wo rk) documented as of this encounter Procedures Procedure Name Priority Date/Time Associated Diagnosis Comme nts 25-HYDROXYVITAMIN Routine 09/21/2021 12:11 Goiter Multinodular Results for this D2 AND D3, S PM CAPTAIN ROOM SERVICE Nontoxic procedure are i n the results section. CBC WITHOUT Routine 09/21/2021 12:11 Goiter Multinodular Resu lts for this DIFFERENTIAL, B PM CAPTAIN ROOM SERVICE Nontoxic procedure ar e in the results section. THYROID-STIMULATING Routine 09/21/2021 12:11 Goiter Multinodul ar Results for this HORMONE-SENSITIVE PM CAPTAIN ROOM SERVICE Nontoxic procedure are in (S-TSH) the results section. T4 (THYROXINE), Routine 09/21/2021 12:11 Goiter Multinodular R esults for this FREE, S PM CAPTAIN ROOM SERVICE Nontoxic procedure are i n the results section. CALCIUM, TOT, S/P Routine 09/21/2021 12:11 Goiter Multinodular Results for this PM CAPTAIN ROOM SERVICE Nontoxic procedure are i n the results section. documented in this encounter Results T4 (Thyroxine), Free (09/21/2021 12:11 PM CAPTAIN ROOM SERVICE) athologist Signature T4 (Thyroxine), 1.2 0.9 - 1.7 09/21/2021 DT Free, S ng/dL 1:24 PM CAPTAIN ROOM SERVICE Specimen Anatomical Collection Method Collection Time Receive d Time (Source) Location / / Volume Laterality Blood (Blood, 09/21/2021 12:11 09/21/2021 Venous) PM CAPTAIN ROOM SERVICE 12:52 PM CAPTAIN ROOM SERVICE Estrella Sevilla M.D. LAB BLOOD ADD-ON Performing Organization Address City/State/ZIP Code Phon e Number [facility] - [address] [place], [place] [address] [place] [address] [facility] [address] Calcium, Total (09/21/2021 12:11 PM CAPTAIN ROOM SERVICE) athologist Signature Calcium, Total, 9.0 8.8 - 10.2 09/21/2021 DTL S mg/dL 1:24 PM CAPTAIN ROOM SERVICE Specimen Anatomical Collection Method Collection Time Receive d Time (Source) Location / / Volume Laterality Blood (Blood, 09/21/2021 12:11 09/21/2021 Venous) PM CAPTAIN ROOM SERVICE 12:52 PM CAPTAIN ROOM SERVICE Estrella Sevilla M.D. LAB BLOOD ADD-ON Performing Organization Address City/State/[facility] Phon e Number [facility] - 200 [place], [place] [address] [place] [address] [address] S-TSH (Thyroid-Stimulating Hormone - Sensitive) (09/21/2021 12:11 PM CAPTAIN ROOM SERVICE) athologist Signature TSH, Sensitive 1.7 0.3 - 4.2 09/21/2021 DTL mIU/L 1:24 PM CAPTAIN ROOM SERVICE Specimen Anatomical Collection Method Collection Time Receive d Time (Source) Location / / Volume Laterality Blood (Blood, 09/21/2021 12:11 09/21/2021 Venous) PM CAPTAIN ROOM SERVICE 12:52 PM CAPTAIN ROOM SERVICE Estrella Sevilla M.D. LAB BLOOD ADD-ON Performing Organization Address City/[facility] Code Phon e Number [facility] - 200 [place], [place] [address] [place] [address] [address] CBC without Differential (09/21/2021 12:11 PM CAPTAIN ROOM SERVICE) athologist Signature Hemoglobin 14.3 11.6 - 09/21/2021 DTL 15.0 g/dL 12:45 PM CAPTAIN ROOM SERVICE Hematocrit 43.8 35.5 - 09/21/2021 DTL 44.9 % 12:45 PM CAPTAIN ROOM SERVICE Erythrocytes 4.79 3.92 - 09/21/2021 DTL 5.13 12:45 PM CAPTAIN ROOM SERVICE x10(12)/L MCV 91.4 78.2 - 09/21/2021 DTL 97.9 fL 12:45 PM CAPTAIN ROOM SERVICE RBC Distrib Width 13.2 12.2 - 09/21/2021 DTL 16.1 % 12:45 PM CAPTAIN ROOM SERVICE Platelet Count 186 157 - 371 09/21/2021 DTL x10(9)/L 12:45 PM CAPTAIN ROOM SERVICE Leukocytes 6.3 3.4 - 9.6 09/21/2021 DTL x10(9)/L 12:45 PM CAPTAIN ROOM SERVICE Specimen Anatomical Collection Method Collection Time Receive d Time (Source) Location / / Volume Laterality Blood (Blood, 09/21/2021 12:11 09/21/2021 Venous) PM CAPTAIN ROOM SERVICE 12:38 PM CAPTAIN ROOM SERVICE Estrella Sevilla M.D. LAB BLOOD ADD-ON Performing Organization Address City/State/ZIP Code Phon e Number [facility] - [address] [place], [place] [address] [place] [address] [facility] [address] 25-Hydroxyvitamin D2 and D3 (09/21/2021 12:11 PM CAPTAIN ROOM SERVICE) athologist Signature 25-Hydroxy D2 <4.0 ng/mL 09/22/2021 SDSC 3:15 PM CAPTAIN ROOM SERVICE 25-Hydroxy D3 44 ng/mL 09/22/2021 SDSC 3:15 PM CAPTAIN ROOM SERVICE 25-Hydroxy D 44 ng/mL 09/22/2021 SDSC Total 3:15 PM CAPTAIN ROOM SERVICE Comment: ----REFERENCE VALUE---- 25-HYDROXY D TOTAL (D2+D3) Optimum level s in the healthy population are 20-50, patients with bone disease may benefit from higher levels within this r w[place]ka. ----ADDITIONAL INFORMATION---- This test was developed and its performa nce characteristics determined by [facility] in a manner consistent with CLIA requirements. This test has not been cleared or approved by the [place] d and Drug Administration. Specimen Anatomical Collection Method Collection Time Receive d Time (Source) Location / / Volume Laterality Blood (Blood, 09/21/2021 12:11 09/22/2021 7:15 Venous) PM CAPTAIN ROOM SERVICE AM CAPTAIN ROOM SERVICE Estrella Sevilla M.D. LAB BLOOD ADD-ON Performing Organization Address City/State/ZIP Code Phon e Number [facility] [address] [place], [place] [address] [facility] [address] Laboratory Medicine and Pathology [address] [place] documented in this encounter Visit Diagnoses Diagnosis Goiter Multinodular Nontoxic documented in this encounter
--- OUTSIDE RECORDS SUMMARY | 2022-06-20 12:45 | XMS_ITS | Encounter Summary ---
:1955 Author Organization [facility] Address [address] [place] [address] Care Team Providers Name Role Phone Unavailable Primary Care Provider Unavailable Reason for Referral Outpatient (Routine) - Closed Specialty Diagnoses / Procedures Referred By Contact Refer red To Contact Diagnoses Iodine Deficiency Related Diffuse Endemic Goiter Irina Pham C.NJulia ASHRAF [place] Region Procedures US Thyroid [address] [place], [place] [address] Referral ID Status Reason Start Date Expiration Date Visits Requ ested Visits Authorized [id number] Closed 07/04/2021 07/04/2022 1 1 OR CYTOGENETICS LABORATORY DIRECTOR Reason for Visit Outpatient (Routine) - Closed Specialty Diagnoses / Procedures Referred By Contact Refer red To Contact Diagnoses Iodine Deficiency Related Diffuse Endemic Goiter Irina Pham C.NJulia [place] Region Procedures US Thyroid [address] [place], [place] [address] Referral ID Status Reason Start Date Expiration Date Visits Requ ested Visits Authorized [id number] Closed 07/04/2021 07/04/2022 1 1 Encounter Details Date Type Department Care Team Description 07/06/2021 Hospital Encounter Department of Irina Pham Iod ine Deficiency Radiology in Tarik Del Real C.N.P. Related [place], [place] [address] Endemic Goiter [id number] [address] [place], [place] [phone] (Work) [phone] Social History Tobacco Use Types Packs/Day Years [...] How often do you attend congregation or episcopalian More than 4 time s [...] D3) 2,000 mouth daily. Unit capsule omega 3-opf-lwf-fish oil Take 1 capsule by 0 10/1910/03/2021 600 mg-216 mg- 324 mouth daily. mg-1,200 mg capsule,delayed release(DR/EC) documented as of this encounter Plan of Treatment Upcoming Encounters Date Type Specialty Care Team Description 07/05/2022 Appointment Radiology Post, Heath Del Real APRN, C.N.P. [address] [place], [place] [phone] (Wo rk) documented as of this encounter Procedures Procedure Name Priority Date/Time Associated Comments Diagnosis US THYROID RAD - Routine 07/06/2021 3:44 Iodine Deficiency Result s for this (most inpatients PM SENIOR CYTOGENETICS LABORATORY DIRECTOR Related Diffuse procedur e are in and all Endemic Goiter the results outpatients) section. documented in this encounter Results US Thyroid (07/06/2021 3:44 PM SENIOR CYTOGENETICS LABORATORY DIRECTOR) Anatomical Region Laterality Modality Head and Neck, Ultrasound RST LOS, Ultrasound ARZ LOS, N/A Ultrasound Ultrasound FLA LOS Specimen (Source) Anatomical Collection Method Collection Time Re ceived Time Location / / Volume Laterality 07/07/2021 9:13 AM SENIOR CYTOGENETICS LABORATORY DIRECTOR Impressions 07/07/2021 9:23 AM SENIOR CYTOGENETICS LABORATORY DIRECTOR 1. Thyromegaly. 2. Bilateral thyroid nodules have low caballero spicion for malignancy based on sonographic features, the largest on the right measuring 3.4 cm and the largest on the left measuring 3.0 cm. Consider f ollow-up per guidelines below. Narrative 07/07/2021 9:23 AM SENIOR CYTOGENETICS LABORATORY DIRECTOR EXAM: US THYROID COMPARISON: 01/13/2011 FINDINGS: The [...] ultrasound score is 1. Based on the [employer] SolutionsExpert Thyroid Nodule Care Process Model, the nodule [...] ultrasound score is 1. Based on the [employer] Thyroid Nodule Care Process Model, the nodule [...] ultrasound score is 0. Based on the [employer]pert Thyroid Nodule Care Process Model, the nodule has low suspic ion for malignancy (1-5%). Lymph nodes: No pathologically enlarged lymph nodes are seen in the neck, with evaluation of levels II-V. The thyroid nodule descriptions and marilyn gories are based on the Thyroid Nodule Care Process Model established by the [facility] Endocrine Oncology Specialty Ross[place]. https://askmayoexpert.[facility].org/top ic/clinical-answers/cnt-83010379/sec-203 7745 The AskMayoExpert Thyroid Nodule CPM sta neelam the following [...] echogenic foci: no echogenic foci (0). The [place] ultrasound score is 1. Based on the [...] echogenic foci: no echogenic foci (0). The [place] ultrasound score is 1. Based on the [employer]5Expert Thyroid Nodule Care Process Model, the nodule [...] echogenic foci: no echogenic foci (0). The [place] ultrasound score is 0. Based on the [employer]Expert Thyroid Nodule Care Process Model, the nodule has low suspic ion for malignancy (1-5%). Lymph nodes: No pathologically enlarged lymph nodes are seen in the neck, with evaluation of levels II-V. The thyroid nodule descriptions and marilyn gories are based on the Thyroid Nodule Care Process Model established by the [facility] Endocrine Oncology Specialty [place]. https://askmayoexpert.[facility].org/top ic/clinical-answers/cnt-05482036/sec-203 7778 The [employer]MayoExpert Thyroid Nodule CPM sta neelam the following [...] Consider f ollow-up per guidelines below. Irina Pham C.N.P. IMG US PROCEDURES documented in this encounter Visit Diagnoses Diagnosis Iodine Deficiency Related Diffuse Endemi c Goiter documented in this encounter
--- OUTSIDE RECORDS SUMMARY | 2022-06-20 12:46 | XMS_ITS | Encounter Summary ---
:1955 Author Organization [facility] Address [address] [place] [address] Care Team Providers Name Role Phone Unavailable Primary Care Provider Unavailable Reason for Visit Reason Comments Post-op drain removal post lap mona 08-14-17 Outpatient (Routine) - Closed Specialty Diagnoses / Procedures Referred By Contact Refer red To Contact General Surgery Diagnoses Follow Up Examination Postoperative Visit Augie Feldman [facility] [place] [facility] [place] D.ONaomi [address] [place] [address] Referral ID Status Reason Start Date Expiration Date Visits Requ ested Visits Authorized [id number] Closed 08/16/2017 02/12/2018 1 1 Encounter Details Date Type Department Care Team Description 08/17/2017 Office Visit Department of General Amarilis Feldman DNaomiONaomi [address] [place] [address] Cholecystitis (Primary Dx); Surgery in Ana Beasley Paul, M.D. Follow Up Examination [facility] [address] [place] [phone] Social History Tobacco Use Types Packs/Day Years [...] How often do you attend sikhism or restorationism More than 4 time s [...] Comments Blood Pressure 149/71 08/17/2017 1:13 PM BANQUET FOOD SERVER Pulse 77 08/17/2017 1:13 PM B[employer]ET FO[employer] SERVER Temperature 37.1 ??C (98.8 ??F) 08/17/2017 1:07 PM B[employer]ET [employer] SERVER Respiratory Rate - - Oxygen Saturation - [...] Role: * Augie Feldman D.O. - Primary Thermostat Mechanic: Susan Bear L.P.N. Anesthesia Type: General Pre-Operative [...] will follow-up with us in 1 week. UET FOOD SERVER documented in this encounter Plan of Treatment Upcoming Encounters Date Type Specialty Care Team Description 07/05/2022 Appointment Radiology Post, Heath Del Real APRN, C.N.P. [address] [place] [address] [phone] (Wo rk) documented as of this encounter Visit Diagnoses Diagnosis Cholecystitis - Primary Follow Up Examination Postoperative Visi t documented in this encounter
--- OUTSIDE RECORDS SUMMARY | 2022-06-20 12:46 | XMS_ITS | Encounter Summary ---
:1955 Author Organization [facility] Address [address] [place] [address] Care Team Providers Name Role Phone Unavailable Primary Care Provider Unavailable Encounter Details Date Type Department Care Team Description 12/09/2018 Hospital Encounter Department of Irina Pham [facility] [place], [place] [address] [place] [phone] Social History Tobacco Use Types Packs/Day Years [...] How often do you attend anglican or confucianist More than 4 time s [...] D3) 2,000 mouth daily. Unit capsule omega 4-uls-dob-fish oil Take 1 capsule by 0 10/1910/03/2021 600 mg-216 mg- 324 mouth daily. mg-1,200 mg capsule,delayed release(DR/EC) documented as of this encounter Plan of Treatment Upcoming Encounters Date Type Specialty Care Team Description 07/05/2022 Appointment Radiology Post, Heath Del Real APRN, C.N.P. [address] [place], [place] [phone] (Wo rk) documented as [...] TOMOSYNTHESIS Current study was evaluated with a PlateJoyu Affirm Aided Detection (CAD) system. INDICATION: ??Screening mammogram. COMPARISON: ??Prior exam(s) were availab le and reviewed for comparison. DENSITY: ??b. There are scattered areas of fibroglandular density. FINDINGS: ??No mammographic findings of malignancy. Procedure Note Kj Delgado M.D. - 12/09/2018Formatti ng of this note might be different from the original. EXAM: BI BREAST SCREENING BILATERAL WITH TOMOSYNTHESIS Current study was evaluated with a PlateJoyu Affirm Aided Detection (CAD) system. INDICATION: Screening mammogram. [...]
--- OUTSIDE RECORDS SUMMARY | 2022-06-20 12:46 | XMS_ITS | Encounter Summary ---
:1955 Author Organization [facility] Address [address] [place] [address] Care Team Providers Name Role Phone Unavailable Primary Care Provider Unavailable Reason for Visit Reason Comments TIFFANIE Nurse Line Encounter Details Date Type Department Care Team Description 05/11/2021 Clinical Communication Division of Jennie Hatch Nurse Scarlett [facility] C, R.N. [facility] [address] [place] [phone] [place] [address] [place], [place] (Work) [phone] Social History Tobacco Use Types Packs/Day Years [...] How often do you attend congregation or christian More than 4 time s [...] Screening ASSESSMENT Region Select appropriate region: : Squires Age Pathway Select approprite pathway: : Adult [...] swabbed for COVID-19 Only , sent to [facility] located at [address]. An appointment is required for testing, please call [phone] Sunday- Sunday 7am to 6pm and Sunday [...] frequently with soap and water, use hand larriman helper if soap and water aren't available. -Wear [...] care: Yes The following references were used: [facility] novel coronavirus (COVID- 19) resources Nursing judgement documented in this encounter Plan of Treatment Upcoming Encounters Date Type Specialty Care Team Description 07/05/2022 Appointment Radiology Post, Heath Del Real APRN, C.N.P. [address] [place], [place] [phone] (Wo rk) documented as of this encounter Visit Diagnoses Not on filedocumented in this encounter
--- OUTSIDE RECORDS SUMMARY | 2022-06-20 12:46 | XMS_ITS | Encounter Summary ---
:1955 Author Organization [facility] Address [address] [place] [address] Care Team Providers Name Role Phone Unavailable Primary Care Provider Unavailable Encounter Details Date Type Department Care Team Description 06/24/2019 Hospital Encounter Department of Irina Pham, [place] Radiology in [address] [phone] Social History Tobacco Use Types Packs/Day Years [...] How often do you attend mormon or adventist More than 4 time s [...] D3) 2,000 mouth daily. Unit capsule omega 2-yyf-jnx-fish oil Take 1 capsule by 0 10/1910/03/2021 600 mg-216 mg- 324 mouth daily. mg-1,200 mg capsule,delayed release(DR/EC) documented as of this encounter Plan of Treatment Upcoming Encounters Date Type Specialty Care Team Description 07/05/2022 Appointment Radiology Post, Heath Del Real APRN, C.N.P. [address] [place] [phone] (Wo rk) documented as of this encounter Procedures Procedure Name Priority Date/Time Associated Comments Diagnosis US CAROTID RAD - Routine 06/24/2019 10:37 [place] Results fo r this BILATERAL (most inpatients AM CAUSTIC PURIFICATION OPERATOR procedure a re in and all the results outpatients) section. documented in this encounter Results US Carotid Bilateral (06/24/2019 10:37 AM CAUSTIC PURIFICATION OPERATOR) Anatomical Region Laterality Modality Head and Neck, Ultrasound RST LOS, Ultrasound ARZ LOS, Bilat eral Ultrasound Neuroradiology FLA LOS Specimen (Source) Anatomical Collection Method Collection Time Re ceived Time Location / / Volume Laterality 06/24/2019 10:41 AM CAUSTIC PURIFICATION OPERATOR Impressions 06/24/2019 10:44 AM CAUSTIC PURIFICATION OPERATOR Less than 50% stenosis of the right and left internal carotid arteries by velocity criteria. Narrative 06/24/2019 10:44 AM CAUSTIC PURIFICATION OPERATOR EXAM: US CAROTID BILATERAL Exam performed with [...] distal ICA in accordance with Nor th Faroese Symptomatic Carotid Endarterectomy Trial (NASCET). Procedure Note [...] distal ICA in accordance with Nor th Faroese Symptomatic Carotid Endarterectomy Trial (NASCET). IMPRESSION: Less than 50% stenosis of the right and left internal carotid arteries by velocity criteria. Irina HARP US PROCEDURES documented in this encounter Visit Diagnoses Diagnosis [place] documented in this encounter
--- OUTSIDE RECORDS SUMMARY | 2022-06-20 12:46 | XMS_ITS | Encounter Summary ---
:1955 Author Organization [facility] Address [address] [place] [address] Care Team Providers Name Role Phone Unavailable Primary Care Provider Unavailable Reason for Visit Auth/Cert Specialty Diagnoses / Procedures Referred By Contact Refer red To Contact Diagnoses Calculus of bile duct without cholangitis or cholecystitis with obstruction Calculus of bile duct without cholangitis or cholecystitis with obstruction Procedures MD CHOLECYSTECTOMY W CHOLANGIOGR Gallbladder removal Referral ID Status Reason Start Date Expiration Date Visits Requ ested Visits Authorized [id number] 1 1 Encounter Details Date Type Department Care Team Description 08/14/2017 Surgery [facility] MAIN OR Alvin Mathur LAPAROSCOPIC [address]ARD[address] P, D.O. CHOLECYSTECTOMY WITH KRISTINE JOHNSON [address] attempted CHOLANGIOGRAM [phone] [place] [address] Social History Tobacco Use Types Packs/Day Years [...] How often do you attend sabianist or taoism More than 4 time s [...] Comments Blood Pressure 167/66 08/14/2017 4:33 PM OVEN HEATER Pulse 87 08/14/2017 4:33 PM OVEN HEATER Temperature 37.5 ??C (99.5 ??F) 08/14/2017 4:33 PM OVEN HEATER Respiratory Rate 14 08/14/2017 4:33 PM OVEN HEATER Oxygen Saturation - - Inhaled Oxygen Concentration - - Weight 97.1 kg (214 lb 1.1 oz) 08/14/2017 4:33 PM OVEN HEATER Height 157.5 cm (5' 2) 08/14/2017 4:33 PM OVEN HEATER Body Mass Index 39.52 08/14/2017 4:33 PM OVEN HEATER documented in this encounter Discharge Summaries Alvin [...] Case IDs Date Procedure Surgeon Location Status [id number] 08/14/17 LAPAROSCOPIC CHOLECYSTECTOMY WITH attempted CHOLANGIOGRAM Alvin Mathur D.O. [facility] OR [facility] DISCHARGE DISPOSITION Home or Self Care [1] [...] tablet Commonly known as: Allergy Immunotherapy omega 1-sar-emz-fish oil 600 mg-216 mg- 324 mg-1,200 mg [...] THIS ADMISSION None CONDITION AT DISCHARGE good HEATER documented in this encounter Discharge Instructions AttachmentsThe following attachments cannot be sent through Care Everywhere.Care of Your Surgical Drainage Tube (Tanzanian)documented in this encounter Medications at Time of [...] D3) 2,000 mouth daily. Unit capsule omega 1-pna-keu-fish oil Take 1 capsule by 0 10/1910/03/2021 [...] own drain for the next several days. HEATER Nila Farooq M.D. - 08/15/2017 8:19 AM CST Anesthesia Post-Op Visit Patient: Damian Tolentino Anesthesia Post-Op Visit Postoperative day: 1 Follow-up type: inpatient Cardiovascular status: hemodynamic (HR & BP) acceptable Respiratory status: patent airway with spontaneous effort Oxygen requirements: room air Level of consciousness: awake Pain score: pain adequately controlled and /or at baseline Post Op nausea/vomiting: none HEATER documented in this encounter Nursing Notes Monika [...] and demonstrated proper emptying of TAMICA drain HEATER George Rico R.N. - 08/15/2017 2:15 PM [...] to discharge later today once Doctor rounds HEATER Rupinder Muro R.N. - 08/15/2017 4:21 AM [...] pain control and used call light appropriately. HEATER Senia Manrique R.N. - 08/14/2017 4:36 PM CST Goals: Patient will have adequate pain control throughout shift Identify possible barriers to meeting goals/advancing plan of care: Acute illness Stability of the patient: Moderately Unstable - Medium risk of patient condition declining or worsening End of Shift Summary:Patient has had adequate pain control throughout shift HEATER documented in this encounter OR Notes Op Note - Alvin Mathur D.O. - 08/14/2017 7:13 PM CST FULL OP NOTE Procedure(s): LAPAROSCOPIC CHOLECYSTECTOMY WITH attempted CHOLANGIOGRAM Surgeon(s) and Role: * Alvin Mathur D.O. - Primary Central Supply Supervisor: Susan Bear L.P.N. Anesthesia Type: General Pre-Operative [...] in log * Alvin Mathur D.O. TPR HEATER Brief Op Note - Alvin Mathur D.O. [...] implants in log * Alvin Mathur D.O. HEATER documented in this encounter Plan of Treatment Upcoming Encounters Date Type Specialty Care Team Description 07/05/2022 Appointment Radiology Post, Heath Del Real APRN, C.N.P. [address] [place] [address] [phone] (Wo rk) Scheduled Referrals Name Type Priority Associated Diagnoses Order S [facility] General Surgery Outpatient Referral Routine Cholecystitis Expe cted: Post Op (clinic) 08/22/2017 (Approximate), Expires: 08/15/2020 documented as of this encounter Procedures Procedure Name Priority Date/Time Associated Comments Diagnosis HEPATIC FUNCTION Routine 08/15/2017 5:56 Results for PANEL, S AM OVEN HEATER this procedure are in the results section. CBC WITH Routine 08/15/2017 5:56 Results for DIFFERENTIAL, B AM OVEN HEATER this procedu re are in the results section. INCENTIVE SPIROMETRY Routine 08/15/2017 1:23 - RT/RN AM OVEN HEATER INCENTIVE SPIROMETRY Routine 08/15/2017 1:23 - RT/RN AM OVEN HEATER INCENTIVE SPIROMETRY Routine 08/15/2017 1:23 - RT/RN AM OVEN HEATER INCENTIVE SPIROMETRY Routine 08/15/2017 1:23 - RT/RN AM OVEN HEATER INCENTIVE SPIROMETRY Routine 08/15/2017 1:23 - RT/RN AM OVEN HEATER INCENTIVE SPIROMETRY Routine 08/15/2017 1:23 - RT/RN AM OVEN HEATER INCENTIVE SPIROMETRY Routine 08/15/2017 1:23 - RT/RN AM OVEN HEATER INCENTIVE SPIROMETRY Routine 08/15/2017 1:23 - RT/RN AM OVEN HEATER FL FLUORO LESS THAN 1 RAD - Routine 08/14/2017 8:00 Re sults for HOUR (most inpatients PM OVEN HEATER this proced ure and all are in the outpatients) results section. PATHOLOGY SERVICES Routine 08/14/2017 7:18 Cholecystitis Resul ts for PM OVEN HEATER this procedure are in the results section. LAPAROSCOPIC 08/14/2017 6:25 Cholecystitis CHOLECYSTECTOMY WITH PM OVEN HEATER CHOLANGIOGRAM documented in this encounter Results (ABNORMAL) Hepatic Function Panel (08/15/2017 5:56 AM OVEN HEATER) [facility] Time Signature Bilirubin, Total, S 0.8 <=1.2 08/15/2017 [facility] mg/dL 6:53 AM [facility] Bilirubin, Direct, S 0.2 0.0 - 0.3 08/15/2017 [facility] mg/dL 6:53 AM [facility] Aspartate 76 (H) 8 - 43 08/15/2017 [facility] Aminotransferase U/L 6:53 AM [facility] Alanine 81 (H) 7 - 45 08/15/2017 [facility] Aminotransferase U/L 6:53 AM [facility] Alkaline 75 50 - 130 08/15/2017 [facility] Phosphatase, S U/L 6:53 AM [facility] Albumin, S 3.5 3.5 - 5.0 08/15/2017 [facility] g/dL 6:53 AM [facility] Protein, Total, S 6.2 (L) 6.3 - 7.9 08/15/2017 [facility] g/dL 6:53 AM [facility] Specimen Anatomical Collection Method Collection Time Receive d Time (Source) Location / / Volume Laterality Blood (Blood, 08/15/2017 5:56 AM 08/15/20 17 6:14 Venous) OVEN HEATER AM [facility] Alvin Mathur D.O. LAB BLOOD ADD-ON Performing Organization Address City/State/ZIP Code Phon e Number [facility] [address] [place] [address] [facility] (ABNORMAL) CBC with Differential (08/15/2017 5:56 AM [facility]) [facility] Method Time Signature Hemoglobin 12.4 11.6 - 08/15/2017 [facility] 15.0 g/dL 6:18 AM [facility] Hematocrit 36.9 35.5 - 08/15/2017 [facility] 44.9 % 6:18 AM [facility] Erythrocytes 4.20 3.92 - 08/15/2017 [facility] 5.13 6:18 AM [facility] x10(12)/L [facility] MCV 87.9 78.2 - 08/15/2017 [facility] 97.9 fL 6:18 AM [facility] RBC Distrib Width 13.4 12.2 - 08/15/2017 [facility] 16.1 % 6:18 AM [facility] [place] [facility] Platelet Count 159 157 - 371 08/15/2017 [facility] x10(9)/L 6:18 AM [facility] [place] [facility] Leukocytes 17.1 (H) 3.4 - 9.6 08/15/2017 [facility] x10(9)/L 6:18 AM [facility] [place] [facility] Neutrophils 15.33 (H) 1.56 - 08/15/2017 [facility] 6.45 6:18 AM [facility] x10(9)/L [facility] [place] [facility] Lymphocytes 0.92 (L) 0.95 - 08/15/2017 [facility] 3.07 6:18 AM [facility] x10(9)/L [facility] [place] [facility] Monocytes 0.78 0.26 - 08/15/2017 [facility] 0.81 6:18 AM [facility] HEALTH x10(9)/L [facility] [place] [facility] Eosinophils 0.00 (L) 0.03 - 08/15/2017 [facility] 0.48 6:18 AM [facility] x10(9)/L [facility] [place] [facility] Basophils 0.03 0.01 - 08/15/2017 [facility] 0.08 6:18 AM [facility] HEALTH x10(9)/L [facility] [place] [facility] Specimen Anatomical Collection Method Collection Time Receive d Time (Source) Location / / Volume Laterality Blood (Blood, 08/15/2017 5:56 AM 08/15/20 17 6:14 Venous) OVEN HEATER AM OVEN HEATER Alvin Mathur D.O. LAB BLOOD ADD-ON Performing Organization Address City/State/ZIP Code Phon e Number [facility] [address] [place] [address] [place] [facility] [place] Fluoro Less Than 1 Hour (08/14/2017 8:00 PM OVEN HEATER) Specimen (Source) Anatomical Location Collection Method / Collectio n Time Received Time / Laterality Volume Narrative [id number] - 08/14/2017 8:20 PM OVEN HEATER This exam does not require a physician interpretation. Please check notes for clinical details. Alvin Mathur D.O. IMG FLUOROSCOPY PROCEDURES Performing Organization Address City/State/ZIP Code Phon e Number [id number] Pathology Services (08/14/2017 7:18 PM OVEN HEATER) Component Value Ref Test Analysis Performed At [facility] gist Range Method Time Signature PATHOLOGY Patient Name: DAMIAN TOLENTINO [facility] MR#: [id number] [facility] Submitting Physician: ALVIN MATHUR DO [id number] Specimen #[id number] Performing Lab: ??[facility] ? [address] [place] [id number] Source: Gallbladder and stones Clinical History/Pre-Op Cholecystitis [...] ? ?The mucosal wall measures 0.3 cm. ??Warehouse Shift Supervisor sections are submitted in cassette A1. KG/ed ?? Diagnosis Gallbladder, cholecystectomy: ACUTE NECROTIZING CHOLECYSTITIS. Electronically Signed By SANTY GUERIN MD - 08/16/2017 ed/08/16/2017 Specimen (Source) Anatomical Collection Method Collection Time Re ceived Time Location / / Volume Laterality Tissue 08/14/2017 7:18 PM (Gallbladder) OVEN HEATER Alvin Mathur D.O. LAB SURG PATH ORDERABLES Performing Organization Address City/State/ZIP Code Phon e Number [address] [id number] documented in this encounter Visit Diagnoses Diagnosis Cholecystitis - Primary Cholecystitis Cholecystitis documented in this encounter Admitting Diagnoses Diagnosis Cholecystitis documented in this encounter Administered Medications Inactive Administered Medications - up to 3 most recent administrations Medication Order MAR Action Action Date Dose Rate Site acetaminophen tablet 1,000 mg Given 08/15/2017 6:00 PM OVEN HEATER 1,000 mg (for_TYLENOL) 1,000 mg, oral, Every 6 hours PRN, mild pain or score 1-3 of 10, Starting on Sun08/15/17 at 0123 Given 08/15/2017 12:34 PM OVEN HEATER 1,[address] tablet 81 mg Given 08/15/2017 8:12 AM OVEN HEATER 81 mg 81 mg, oral, Daily, First dose on Sun08/15/17 at 0900, Swallow whole. Do NOT crush, chew, or split tablet. calcium carbonate-vitamin D3 1,250 mg (500 Given 08/15 8:12 AM OVEN HEATER 1 tablet mg calcium)-200 unit per tablet 1 tablet 1 tablet, oral, Daily with breakfast, First dose on Sun08/15/17 at 0800, calcium carbonate/vitamin D 600 mg/400 units was interchanged for calcium carbonate/vitamin D3 (Same frequency) cholecalciferol tablet 2,000 Units Given 08/15/2017 8:12 AM OVEN HEATER 2,000 Units (for_VITAMIN D3) 2,000 Units, oral, Daily, First dose on Sun08/15/17 at 0900 heparin (porcine) Given 08/15/2017 5:17 AM OVEN HEATER 5,000 Units Left Upper Abdomen injection 5,000 Units 5,000 Units, subcutaneous, 3 times daily, First dose on Sun08/15/17 at 0530 HYDROmorphone injection 1 mg (for_DILAUD ID) Given 08/14/2017 4:07 PM OVEN HEATER 1 mg 1 mg, intravenous, Every 1 hour PRN, pain, Starting on Sun08/14/17 at 1550 ketorolac injection 15 mg (for_TORADOL) Given 08/15/2017 7:19 AM OVEN HEATER 15 mg 15 mg, intravenous, Every 6 [...] mL, bupivacaine PF Given 08/14/2017 9:00 PM OVEN HEATER 13 mL Abdominal Tissue 50 mL 100 mL injection As needed, Starting on Sun08/14/17 at 2100, Intra-Op microfibrillar collagen Given 08/14/2017 8:33 PM 1 application Abdominal Tissue hemostat powder OVEN HEATER (for_AVITENE FLOUR) As needed, Starting on Sun08/14/17 [...] mg per Given 08/15/2017 8:12 A M OVEN HEATER 1 tablet tablet 1 tablet (for_SENOKOT-S) 1 [...] injection 3 mL Given 08/15/2017 8:12 AM OVEN HEATER 3 mL 3 mL, intravenous, As needed, [...] Recently Administered Medications Times are shown in OVEN HEATER. Scheduled Medication Order 08/13/2017 08/14/2017 08/15/2017 aspirin [...] (for_TYLENOL) 1234 (Given - Provider: Rocio Schmidt RMary)1800 (Given - Provider: Monika Loera R.N.) 1,000 [...] mg (for_TORADOL) 718 (Given - Provider: George Rico, RNaomiNNaomi) 15 mg, intravenous, Every 6 hours [...] bupivacaine PF 50 mL 100 mL injection ([facility]) 2100 (Given - Provider: Alvin Mathur [...] (for_AVITENE FLOUR) (CANCELED) 2032 (Given - Provider: Kristina AlejandroO. - Comment: liver bed) As needed, Starting [...]
--- OUTSIDE RECORDS SUMMARY | 2022-06-20 12:46 | XMS_ITS | Encounter Summary ---
:1955 Author Organization [facility] Address [address] [place] [address] Care Team Providers Name Role Phone Unavailable Primary Care Provider Unavailable Reason for Visit Auth/Cert Specialty Diagnoses / Procedures Referred By Contact Refer red To Contact Diagnoses Calculus of bile duct without cholangitis or cholecystitis with obstruction Calculus of bile duct without cholangitis or cholecystitis with obstruction Procedures MA CHOLECYSTECTOMY W CHOLANGIOGR Gallbladder removal Referral ID Status Reason Start Date Expiration Date Visits Requ ested Visits Authorized [id number] 1 1 Encounter Details Date Type Department Care Team Description 08/14/2017 Anesthesia Event [facility] MAIN OR Kwan Whitley APRN, BUYERS' AGENT [address] [place] [address] 701 MILLERNila Barreto M.D. [address] [place] [address] [place] [phone] Anesthesia Record Procedure Summary Procedure Name Responsible Anesthesia Start Anesthesia Stop Anesthesiologist Time Time LAPAROSCOPIC Kwan Whitley APRN, 08/14/17 1846 2129 CHOLECYSTECTOMY WITH BUYERS' AGENT attempted CHOLANGIOGRAM Events Date Time Event Comment 08/14/2017 1635 1845 In Room 1846 An Start Machine/Equipmen t Checked Infection Precautions Foll owed Procedure/Site Verified NPO Sta tus Verified Supine Standard ASA Mon itors Applied 1854 An Induction 185 An Intubation 1899 Turnover to Proceduralist 1912 Proc Start 2105 Turnover to ANE Staff 2111 Proc Fin 2110 Airway Removal Criteria Met 2110 Extubation/Airway Removed 2118 an stop data 2119 Out of Room 2129 An End I completed my h andoff to the receiving staff during [facility] we 1. Identified the patient 2. [...] R.N. 1 Peripheral IV Placement Date: 08/14/17 08 by 08/15/17 171 b y 08/14/17; Placement [...] Ju ne A, R.N. Center; 08/15/17; 1748 COGNOS ADMINISTRATOR, BUYERS' AGENT ETT Placement Date: 08/14/171909 by 08/14/172110 b y 08/14/17; Placement Kwan Whitley, Kwan Whitley, Time: 1909 (created via CHRISTOPHE JUNG APRN, NEENA PANDYA procedure documentation); Mask Ventilation: Oral/Nasal airway needed; Type: Standard ETT; Single Lumen Tube Size: 7 mm; Cuffed: Yes; Location: Oral; Grade View: Grade 2B; Insertion Attempts: 1; Removal Date: 08/14/17; Removal Time: 2110 (RETIRED) Incision 08/14/17; 1925; Abdomen; 08/14/171925 by 1418 by dermabond; Yahaira Chen, RNaomiNNaomi May m-Rirqkq-Eyrrkypv FABRIC 2X3.75 (x4); nd, Scheduli ng 05/10/21 (Removed by Automated B [facility] Job background completion utility); 1418 (Removed by background completion utility) documented in [...] How often do you attend evangelical or restoration More than 4 time s [...] Summary Date: 08/14/17 Room / Location: OR [address] [place] [address] 1409 / [facility] OR Anesthesia Start: 1845 Anesthesia Stop: [...] Post Op nausea/vomiting: none Hydration status: euvolemic RANCE VERIFICATION REP Anesthesia Procedure Notes - Kwan Whitley APRN, [...] glottic airway. Switchedto CMAC with success x1. RANCE VERIFICATION REP Anesthesia Preprocedure Evaluation - Nila Farooq M.D. [...] patient / legal guardian, or through an streets and buildings decorator; patient evaluated and approved for anesthesia / sedation. The use of blood products not discussed NPO > 8 hours RANCE VERIFICATION REP documented in this encounter Miscellaneous Notes Addendum Note - Kwan Whitley APRN, CRNA, D.N.P. - 08/23/2017 10:20 AM INSURANCE VERIFICATION REP Addendum created 08/23/17 1020 by Kwan Whitley APRN, CRNA, D.N.P. Anesthesia Intra Meds edited RANCE VERIFICATION REP documented in this encounter Plan of Treatment Upcoming Encounters Date Type Specialty Care Team Description 07/05/2022 Appointment Radiology Post, Heath Del Real APRN, C.N.P. [address] [place], [place] [phone] (Wo rk) documented as of this encounter Procedures Procedure Name Priority Date/Time Associated Comments Diagnosis LDA ANE ENDOTRACHEAL Routine 08/14/2017 7:09 PM R esults for this AIRWAY INSURANCE VERIFICATION REP procedure are i n the results section. documented in this encounter Results LDA ANE ENDOTRACHEAL AIRWAY (08/14/2017 7:09 PM INSURANCE VERIFICATION REP) Narrative Kwan Whitley APRN, CHRISTOPHE, D.N.P. - 08/14/2017 7:09 PM INSURANCE VERIFICATION REP Kwan Whitley APRN, CRNA, D.N.P. ? 08/14/2017 [...] to CMAC with success x1. Kwan Whitley APRN, CRNA ANESTHESIA ORDERABLES documented in this encounter Visit Diagnoses Not on filedocumented in this encounter Administered Medications Inactive Administered Medications - up to 3 most recent administrations Medication Order MAR Action Action Date Dose Rate Site ciprofloxacin in D5W IVPB 400 mg Given 08/14/2017 7:01 PM INSURANCE VERIFICATION REP 40 0 mg (for_CIPRO) 400 mg, intravenous, at 200 mL/hr, Administer over 60 Minutes, Once, On Sun08/14/17 at 1745, For 1 dose, Intra-Op, Preoperatively within 2 hours prior to surgical incision. premix bag, Drug Monitoring Program: Pharmacist to adjust medication order based on comorbities and indication., Indications: Prophylaxis, surgical dexamethasone injection (for_DECADRON) Given 08/14/2017 6:49 PM INSURANCE VERIFICATION REP 4 mg As needed, Starting on Sun08/14/17 at 1849, Anesthesia Intra-op fentaNYL injection (for_SUBLIMAZE) Given 08/14/2017 6:54 PM INSURANCE VERIFICATION REP 100 mcg intravenous, As needed, severe pain or score 7-10 of 10, Starting on Sun08/14/17 at 1854, Anesthesia Intra-op HYDROmorphone injection (for_DILAUDID) Given 08/14/2017 7:19 PM INSURANCE VERIFICATION REP 1 mg As needed, moderate pain or score 4-6 of 10, Starting on Sun08/14/17 at 1919, Anesthesia Intra-op lactated ringers New Bag 08/14/2017 9:12 PM INSURANCE VERIFICATION REP intravenous, Continuous Infusion: Per Instructions PRN, Starting on Sun08/14/17 at 1846, Anesthesia Intra-op New Bag 08/14/2017 6:46 PM INSURANCE VERIFICATION REP lidocaine (PF) (cardiac) injection Given 08/14/2017 6:54 PM INSURANCE VERIFICATION REP 10 mg intravenous, As needed, Starting on Sun08/14/17 at 1854, Anesthesia Intra-op metroNIDAZOLE in NaCl (iso-osm) IVPB 500 mg Given 08/14/2017 7:24 PM INSURANCE VERIFICATION REP 500 mg (for_FLAGYL) 500 mg, intravenous, at 200 mL/hr, Administer over 30 Minutes, Once, On Sun08/14/17 at 1745, For 1 dose, Intra-Op, Preoperatively within 1 hour prior to surgical incision., Indications: Prophylaxis, surgical midazolam (PF) injection (for_VERSED) Given 08/14/2017 6:46 PM INSURANCE VERIFICATION REP 2 mg intravenous, As needed, Starting on Sun08/14/17 at 1846, Anesthesia Intra-op ondansetron (PF) injection (for_ZOFRAN) Given 08/14/2017 8:45 PM INSURANCE VERIFICATION REP 4 mg intravenous, As needed, nausea, vomiting, Starting on Sun08/14/17 at 2045, Anesthesia Intra-op propofol injection (for_DIPRIVAN) Given 08/14/2017 6:54 PM INSURANCE VERIFICATION REP 200 mg intravenous, As needed, Starting on Sun08/14/17 at 1854, Anesthesia Intra-op rocuronium injection (for_ZEMURON) Given 08/14/2017 8:04 PM INSURANCE VERIFICATION REP 10 mg intravenous, As needed, Starting on Sun08/14/17 at 1858, Anesthesia Intra-op Given 08/14/2017 6:58 PM INSURANCE VERIFICATION REP 50 mg succinylcholine-0.9% NaCl (PF) injection Given 08/14/2017 6:54 P M INSURANCE VERIFICATION REP 140 mg (for_ANECTINE) intravenous, As needed, Starting on Sun08/14/17 at 1854, Anesthesia Intra-op documented in this encounter
--- OUTSIDE RECORDS SUMMARY | 2022-06-20 12:46 | XMS_ITS | Encounter Summary ---
:[address] 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 [address] [place], [place] [phone] (Wo rk) Scheduled Referrals Name Type Priority Associated Diagnoses Order S chedule Covid immunization Outpatient Referral Routine Encounter For E xpected: office visit COVID-19 Vaccine 11/18/2020, Subsequent; 21 days Immunization Expires: 10/29/2023 documented as of this encounter Visit Diagnoses Diagnosis Encounter For COVID-19 Vaccine Immunizat ion - Primary documented in this encounter
--- OUTSIDE RECORDS SUMMARY | 2022-06-20 12:46 | XMS_ITS | Encounter Summary ---
:1955 Author Organization [facility] Address [address] [place] [address] Care Team Providers Name Role Phone Unavailable Primary Care Provider Unavailable Reason for Visit Reason Comments Eye Exam Appointment Request (Routine) - Closed Specialty Diagnoses / Procedures Referred By Contact Refer red To Contact Ophthalmology Referral ID Status Reason Start Date Expiration Date Visits Requ ested Visits Authorized [id number] Closed 04/19/2020 04/19/2021 1 1 Encounter Details Date Type Department Care Team Description 06/01/2020 Comprehensive Visit Department of Magen Michaelsop ia Bilateral (Primary Dx); Ophthalmology in [place] Del Real O.D. Astigma tism Regular Bilateral; [place] Presbyopia; [address] Age Related Nuclear Cataract Bilateral KRISTINE JOHNSON [phone] Social History Tobacco Use Types Packs/Day [...] often do you attend latter day or christian More than 4 time s [...] Post, Heath Del Real APRN, C.N.P. [address] [place] [address] [phone] (Wo rk) documented as of this encounter Visit Diagnoses Diagnosis Hyperopia Bilateral - Primary Astigmatism Regular Bilateral Presbyopia Age Related Nuclear Cataract Bilateral documented in this encounter
--- OUTSIDE RECORDS SUMMARY | 2022-06-20 12:46 | XMS_ITS | Encounter Summary ---
:1955 Author Organization [facility] Address [address] [place] [address] Care Team Providers Name Role Phone Unavailable Primary Care Provider Unavailable Encounter Details Date Type Department Care Team Description 02/02/2021 Hospital Encounter Department of Martin, Primary Osteoarthritis Radiology in [facility] Roberto Vela M.D. Knee [address] [phone] Social History Tobacco Use Types Packs/Day Years [...] How often do you attend lutheran or hoahaoism More than 4 time s [...] D3) 2,000 mouth daily. Unit capsule omega 4-csm-taa-fish oil Take 1 capsule by 0 10/1910/03/2021 600 mg-216 mg- 324 mouth daily. mg-1,200 mg capsule,delayed release(DR/EC) documented as of this encounter Plan of Treatment Upcoming Encounters Date Type Specialty Care Team Description 07/05/2022 Appointment Radiology Post, Heath Del Real APRN, C.N.P. [address] [place] [address] [phone] (Wo rk) documented as of this [...]
--- OUTSIDE RECORDS SUMMARY | 2022-06-20 12:46 | XMS_ITS | Encounter Summary ---
:1955 Author Organization [facility] Address [address] [place] [address] Care Team Providers Name Role Phone Unavailable Primary Care Provider Unavailable Encounter Details Date Type Department Care Team Description 08/17/2017 Abstract [facility] [address] [phone] Social History Tobacco Use [...] How often do you attend scientology or moravian More than 4 time s [...] Post, Heath Del Real APRN, C.N.P. [address] [place] [phone] (Wo rk) documented as of this encounter Visit Diagnoses Not on filedocumented in this encounter
--- OUTSIDE RECORDS SUMMARY | 2022-06-20 12:46 | XMS_ITS | Encounter Summary ---
:1955 Author Organization [facility] Address [address] [place] [address] Care Team Providers Name Role Phone Unavailable Primary Care Provider Unavailable Reason for Referral Outpatient (Routine) - Closed Specialty Diagnoses / Procedures Referred By Contact Refer red To Contact Diagnoses Screening Mammogram Breast Cancer Fernando Steven M.D. [facility] [place] [facility] Procedures BI Breast Screening Bilateral with Tomosynthesis [address] [place], [place] [address] Referral ID Status Reason Start Date Expiration Date Visits Requ ested Visits Authorized [id number] Closed 04/19/2020 04/19/2021 1 1 Reason for Visit Outpatient (Routine) - Closed Specialty Diagnoses / Procedures Referred By Contact Refer red To Contact Diagnoses Screening Mammogram Breast Cancer Fernando Steven M.D. [facility] Procedures BI Breast Screening Bilateral with Tomosynthesis [address] [place], [place] [address] Referral ID Status Reason Start Date Expiration Date Visits Requ ested Visits Authorized [id number] Closed 04/19/2020 04/19/2021 1 1 Encounter Details Date Type Department Care Team Description 04/29/2020 Hospital Encounter Department of Fernando Steven ing Mammogram Radiology in Kris Cates M.D. Breast Cancer [place], [place] [address] [facility] [phone] Social History Tobacco Use Types Packs/Day Years [...] How often do you attend restorationism or nondenominational More than 4 time s [...] D3) 2,000 mouth daily. Unit capsule omega 3-dot-jkk-fish oil Take 1 capsule by 0 10/1910/03/2021 600 mg-216 mg- 324 mouth daily. mg-1,200 mg capsule,delayed release(/EC) documented as of this encounter Plan of Treatment Upcoming Encounters Date Type Specialty Care Team Description 07/05/2022 Appointment Radiology Post, Heath Del Real APRN, C.N.P. [address] [place] [address] [phone] (Wo rk) documented as of this [...] Breast Imaging RST LOS, Breast Imaging [facility], [address] Bilateral Mammography Imaging F[facility] LOS [...]
--- OUTSIDE RECORDS SUMMARY | 2022-06-20 12:46 | XMS_ITS | Encounter Summary ---
:1955 Author Organization [facility] Address [address] [place] [address] Care Team Providers Name Role Phone Unavailable Primary Care Provider Unavailable Encounter Details Date Type Department Care Team Description 08/16/2017 Documentation Department of General Lucretia Gerardo, Surgery in [address] [phone] Social History Tobacco Use Types Packs/Day Years [...] How often do you attend hindu or mosque More than 4 time s [...] of this encounter Progress Notes Lucretia Gerardo L.P.N. - 08/16/2017 9:59 AM CST Pt call [...] Post op order placed and appointment scheduled. HANDISING MANAGER documented in this encounter Plan of Treatment Upcoming Encounters Date Type Specialty Care Team Description 07/05/2022 Appointment Radiology Post, Heath Del Real APRN, C.N.P. [address] [place], [place] [phone] (Wo rk) documented as of this encounter Visit Diagnoses Not on filedocumented in this encounter
--- OUTSIDE RECORDS SUMMARY | 2022-06-20 12:46 | XMS_ITS | Encounter Summary ---
:1955 Author Organization [facility] Address [address] [place] [address] Care Team Providers Name Role Phone Unavailable Primary Care Provider Unavailable Reason for Visit Physical Therapy (Routine) - Closed Specialty Diagnoses / Procedures Referred By Contact Refer red To Contact Diagnoses Primary Osteoarthritis Knee Bilateral Pain Knee Right Roberto Salazar, AND[facility] Procedures PT Evaluate and treat Jose Alberto [address] [place] [phone] Referral ID Status Reason Start Date Expiration Date Visits Requ ested Visits Authorized [id number] Closed 02/02/2021 02/02/2022 1 1 Encounter Details Date Type Department Care Team Description 02/28/2021 Comprehensive Visit Department of Dean Salazar M.D. [address] [place] [phone] Primary Osteoarthritis Knee Bilateral; Rehabilitation Ana Vallejo, P.T. [address] [place] [phone] Pain Knee Right Services in [address] [phone] Social History Tobacco Use Types Packs/Day Years [...] How often do you attend yarsanism or sikhism More than 4 time s [...] as of this encounter Consult Notes Ana Vallejo, P.T. - 02/28/2021 9:00 AM CDT Consults Physical Therapy Outpatient Evaluation/Treatment By co-signing this note, the provider certifies the therapy being provided to this patient is reasonable and necessary for the diagnosis or treatment of this patient. SUBJECTIVE Patient's Name: Colleen Yani Tolentino Referring Provider: Roberto Salazar M.D. Visit Diagnosis: 1. Primary Osteoarthritis Knee Bilateral 2. Pain Knee Right Payor: [employer] / Plan: [employer] [place] / [...] attempted CHOLANGIOGRAM; Surgeon: Augie Feldman D.O.; Location: [facility] OR ??? OPEN TENOTOMY OF EXTENSOR [...] PT Goal #4 Date: 04/08/21 Plan Ms. Toelntino was educated regarding evaluative findings, diagnosis, prognosis, [...] Vallejo P.T. Department of Rehabilitation Services in [address] [address] Dept: [phone] documented in this encounter Plan of Treatment Upcoming Encounters Date Type Specialty Care Team Description 07/05/2022 Appointment Radiology Post, Heath Del Real APRN, C.N.P. [address] [place] [phone] (Wo rk) documented as of this encounter Visit Diagnoses Diagnosis Primary Osteoarthritis Knee Bilateral Pain Knee Right documented in this encounter
--- OUTSIDE RECORDS SUMMARY | 2022-06-20 12:46 | XMS_ITS | Encounter Summary ---
:1955 Author Organization [facility] Address [address] [place] [address] Care Team Providers Name Role Phone Unavailable Primary Care Provider Unavailable Reason for Referral Outpatient (Routine) - Closed Specialty Diagnoses / Procedures Referred By Contact Refer red To Contact General Surgery Diagnoses Cholecystitis Alvin Mathur D.O. [facility] [address] [place] [address] Referral ID Status Reason Start Date Expiration Date Visits Requ ested Visits Authorized [id number] Closed 08/15/2017 02/11/2018 1 1 LING AND PRODUCTION SUPERINTENDENT Reason for Visit Auth/Cert Specialty Diagnoses / Procedures Referred By Contact Refer red To Contact Diagnoses Calculus of bile duct without cholangitis or cholecystitis with obstruction Calculus of bile duct without cholangitis or cholecystitis with obstruction Procedures ME CHOLECYSTECTOMY W CHOLANGIOGR Gallbladder removal Referral ID Status Reason Start Date Expiration Date Visits Requ ested Visits Authorized [id number] 1 1 Encounter Details Date Type Department Care Team Description 08/14/2017 - Hospital Encounter [facility] Francia, Cholecyst itis 08/15/2017 [facility] [place] Kristina Moulton (Primary Dx) [facility], [address] [place] [address] [address] Floor [address] [place] [phone] Social History Tobacco Use Types Packs/Day Years [...] How often do you attend hoahaoism or church More than 4 time s [...] Comments Blood Pressure 128/56 08/15/2017 5:03 PM DRILLING AND PRODUCTION SUPERINTENDENT Pulse 79 08/15/2017 5:03 PM DRILLING AND PRODUCTION SUPERINTENDENT Temperature 36.5 ??C (97.7 ??F) 08/15/2017 5:03 PM DRILLING AND PRODUCTION SUPERINTENDENT Respiratory Rate 16 08/15/2017 5:03 PM DRILLING AND PRODUCTION SUPERINTENDENT Oxygen Saturation 97% 08/15/2017 5:03 PM DRILLING AND PRODUCTION SUPERINTENDENT Inhaled Oxygen Concentration - - Weight 98 kg (216 lb 0.8 oz) 08/15/2017 4:51 AM DRILLING AND PRODUCTION SUPERINTENDENT Height 157.5 cm (5' 2) 08/14/2017 4:33 PM DRILLING AND PRODUCTION SUPERINTENDENT Body Mass Index 39.52 08/14/2017 4:33 PM DRILLING AND PRODUCTION SUPERINTENDENT documented in this encounter Discharge Summaries Alvin [...] Case IDs Date Procedure Surgeon Location Status [id number] 08/14/17 LAPAROSCOPIC CHOLECYSTECTOMY WITH attempted CHOLANGIOGRAM Alvin Mathur D.O. [facility] OR Comp DISCHARGE DISPOSITION Home or Self [...] tablet Commonly known as: Allergy Immunotherapy omega 3-wyr-ggc-fish oil 600 mg-216 mg- 324 mg-1,200 mg [...] THIS ADMISSION None CONDITION AT DISCHARGE good LING AND PRODUCTION SUPERINTENDENT documented in this encounter Discharge Instructions AttachmentsThe following attachments cannot be sent through Care Everywhere.Care of Your Surgical Drainage Tube (Upper Sorbian)documented in this encounter Medications at Time of [...] D3) 2,000 mouth daily. Unit capsule omega 6-cnp-wdt-fish oil Take 1 capsule by 0 10/1910/03/2021 [...] own drain for the next several days. LING AND PRODUCTION SUPERINTENDENT Nila Farooq M.D. - 08/15/2017 8:19 AM CST Anesthesia Post-Op Visit Patient: Damian Ashford Jeremiahmonica Anesthesia Post-Op Visit Postoperative day: 1 Follow-up type: inpatient Cardiovascular status: hemodynamic (HR & BP) acceptable Respiratory status: patent airway with spontaneous effort Oxygen requirements: room air Level of consciousness: awake Pain score: pain adequately controlled and /or at baseline Post Op nausea/vomiting: none LING AND PRODUCTION SUPERINTENDENT documented in this encounter Nursing Notes Monika [...] and demonstrated proper emptying of TAMICA drain LING AND PRODUCTION SUPERINTENDENT George Rico R.N. - 08/15/2017 2:15 PM [...] to discharge later today once Doctor rounds LING AND PRODUCTION SUPERINTENDENT Rupinder Muro RMary - 08/15/2017 4:21 AM [...] pain control and used call light appropriately. LING AND PRODUCTION SUPERINTENDENT Senia Manrique R.N. - 08/14/2017 4:36 PM CST Goals: Patient will have adequate pain control throughout shift Identify possible barriers to meeting goals/advancing plan of care: Acute illness Stability of the patient: Moderately Unstable - Medium risk of patient condition declining or worsening End of Shift Summary:Patient has had adequate pain control throughout shift LING AND PRODUCTION SUPERINTENDENT documented in this encounter OR Notes Op Note - Alvin Mathur D.O. - 08/14/2017 7:13 PM CST FULL OP NOTE Procedure(s): LAPAROSCOPIC CHOLECYSTECTOMY WITH attempted CHOLANGIOGRAM Surgeon(s) and Role: * Alvin Mathur D.O. - Primary Tangled Yarn Spool Straightener: Susan Bear L.P.N. Anesthesia Type: General Pre-Operative [...] in log * Alvin Mathur D.O. TPR LING AND PRODUCTION SUPERINTENDENT Brief Op Note - Alvin Mathur D.O. [...] implants in log * Alvin Mathur D.O. LING AND PRODUCTION SUPERINTENDENT documented in this encounter Plan of Treatment Upcoming Encounters Date Type Specialty Care Team Description 07/05/2022 Appointment Radiology Post, Heath Del Real APRN, C.N.P. [address] [place] [address] [phone] (Wo rk) Scheduled Referrals Name Type Priority Associated Diagnoses Order S [facility] General Surgery Outpatient Referral Routine Cholecystitis Expe cted: Post Op (clinic) 08/22/2017 (Approximate), Expires: 08/15/2020 documented as of this encounter Procedures Procedure Name Priority Date/Time Associated Comments Diagnosis HEPATIC FUNCTION Routine 08/15/2017 5:56 Results for PANEL, S AM DRILLING AND PRODUCTION SUPERINTENDENT this procedure are in the results section. CBC WITH Routine 08/15/2017 5:56 Results for DIFFERENTIAL, B AM DRILLING AND PRODUCTION SUPERINTENDENT this procedu re are in the results section. INCENTIVE SPIROMETRY Routine 08/15/2017 1:23 - RT/RN AM DRILLING AND PRODUCTION SUPERINTENDENT INCENTIVE SPIROMETRY Routine 08/15/2017 1:23 - RT/RN AM DRILLING AND PRODUCTION SUPERINTENDENT INCENTIVE SPIROMETRY Routine 08/15/2017 1:23 - RT/RN AM DRILLING AND PRODUCTION SUPERINTENDENT INCENTIVE SPIROMETRY Routine 08/15/2017 1:23 - RT/RN AM DRILLING AND PRODUCTION SUPERINTENDENT INCENTIVE SPIROMETRY Routine 08/15/2017 1:23 - RT/RN AM DRILLING AND PRODUCTION SUPERINTENDENT INCENTIVE SPIROMETRY Routine 08/15/2017 1:23 - RT/RN AM DRILLING AND PRODUCTION SUPERINTENDENT INCENTIVE SPIROMETRY Routine 08/15/2017 1:23 - RT/RN AM DRILLING AND PRODUCTION SUPERINTENDENT INCENTIVE SPIROMETRY Routine 08/15/2017 1:23 - RT/RN AM DRILLING AND PRODUCTION SUPERINTENDENT FL FLUORO LESS THAN 1 RAD - Routine 08/14/2017 8:00 Re sults for HOUR (most inpatients PM DRILLING AND PRODUCTION SUPERINTENDENT this proced ure and all are in the outpatients) results section. PATHOLOGY SERVICES Routine 08/14/2017 7:18 Cholecystitis Resul ts for PM DRILLING AND PRODUCTION SUPERINTENDENT this procedure are in the results section. LAPAROSCOPIC 08/14/2017 6:25 Cholecystitis CHOLECYSTECTOMY WITH PM DRILLING AND PRODUCTION SUPERINTENDENT CHOLANGIOGRAM documented in this encounter Results (ABNORMAL) Hepatic Function Panel (08/15/2017 5:56 AM DRILLING AND PRODUCTION SUPERINTENDENT) [facility] Method Time Signature Bilirubin, Total, S 0.8 <=1.2 08/15/2017 [facility] mg/dL 6:53 AM [facility] Bilirubin, Direct, S 0.2 0.0 - 0.3 08/15/2017 [facility] mg/dL 6:53 AM [facility] Aspartate 76 (H) 8 - 43 08/15/2017 [facility] Aminotransferase U/L 6:53 AM [facility] Alanine 81 (H) 7 - 45 08/15/2017 [facility] Aminotransferase U/L 6:53 AM [facility] Alkaline 75 50 - 130 08/15/2017 [facility] Phosphatase, S U/L 6:53 AM [facility] Albumin, S 3.5 3.5 - 5.0 08/15/2017 [facility] g/dL 6:53 AM [facility] Protein, Total, S 6.2 (L) 6.3 - 7.9 08/15/2017 [facility] g/dL 6:53 AM [facility] Specimen Anatomical Collection Method Collection Time Receive d Time (Source) Location / / Volume Laterality Blood (Blood, 08/15/2017 5:56 AM 08/15/20 17 6:14 Venous) DRILLING AND PRODUCTION SUPERINTENDENT AM DRILLING AND PRODUCTION SUPERINTENDENT Alvin Mathur D.O. LAB BLOOD ADD-ON Performing Organization Address City/State/ZIP Code Phon e Number [facility] [address] [place] [address] [facility] (ABNORMAL) CBC with Differential (08/15/2017 5:56 AM DRILLING AND PRODUCTION SUPERINTENDENT) [facility] gist Method Time Signature Hemoglobin 12.4 11.6 - 08/15/2017 [facility] 15.0 g/dL 6:18 AM [employer] [facility] Hematocrit 36.9 35.5 - 08/15/2017 [facility] 44.9 % 6:18 AM DRILLING AND PRODUCTION SUPERINTENDENT [employer] [facility] Erythrocytes 4.20 3.92 - 08/15/2017 [facility] 5.13 6:18 AM DRILLING AND PRODUCTION SUPERINTENDENT HEALTH x10(12)/L [facility] MCV 87.9 78.2 - 08/15/2017 [facility] 97.9 fL 6:18 AM [employer] [facility] [place] [facility] RBC Distrib Width 13.4 12.2 - 08/15/2017 [facility] 16.1 % 6:18 AM DRILLING AND PRODUCTION SUPERINTENDENT [employer] [facility] [place] [facility] Platelet Count 159 157 - 371 08/15/2017 [facility] x10(9)/L 6:18 AM DRILLING AND PRODUCTION SUPERINTENDENT [employer] [facility] [place] [facility] Leukocytes 17.1 (H) 3.4 - 9.6 08/15/2017 [facility] x10(9)/L 6:18 AM DRILLING AND PRODUCTION SUPERINTENDENT [employer] [facility] [place] [facility] Neutrophils 15.33 (H) 1.56 - 08/15/2017 [facility] 6.45 6:18 AM DRILLING AND PRODUCTION SUPERINTENDENT [employer] x10(9)/L [facility] Lymphocytes 0.92 (L) 0.95 - 08/15/2017 [facility] 3.07 6:18 AM DRILLING AND PRODUCTION SUPERINTENDENT [employer] x10(9)/L [facility] Monocytes 0.78 0.26 - 08/15/2017 [facility] 0.81 6:18 AM DRILLING AND PRODUCTION SUPERINTENDENT [employer] x10(9)/L [facility] Eosinophils 0.00 (L) 0.03 - 08/15/2017 [facility] 0.48 6:18 AM DRILLING AND PRODUCTION SUPERINTENDENT [employer] x10(9)/L [facility] Basophils 0.03 0.01 - 08/15/2017 [facility] 0.08 6:18 AM DRILLING AND PRODUCTION SUPERINTENDENT [employer] x10(9)/L [employer] [facility] [place] [facility] Specimen Anatomical Collection Method Collection Time Receive d Time (Source) Location / / Volume Laterality Blood (Blood, 08/15/2017 5:56 AM 08/15/20 17 6:14 Venous) DRILLING AND PRODUCTION SUPERINTENDENT AM DRILLING AND PRODUCTION SUPERINTENDENT Alvin Mathur D.O. LAB BLOOD ADD-ON Performing Organization Address City/State/ZIP Code Phon e Number [facility] [address] [place] [address] [facility] [place] Fluoro Less Than 1 Hour (08/14/2017 8:00 PM DRILLING AND PRODUCTION SUPERINTENDENT) Specimen (Source) Anatomical Location Collection Method / Collectio n Time Received Time / Laterality Volume Narrative [id number] - 08/14/2017 8:20 PM DRILLING AND PRODUCTION SUPERINTENDENT This exam does not require a physician interpretation. Please check notes for clinical details. Alvin Mathur D.O. IMG FLUOROSCOPY PROCEDURES Performing Organization Address [facility] Code Phon e Number [id number] NA Pathology Services (08/14/2017 7:18 PM DRILLING AND PRODUCTION SUPERINTENDENT) Component Value Ref Test Analysis Performed At [facility] Range Method Time Signature PATHOLOGY Patient Name: DAMIAN TOLENTINO [facility] MR#: [id number] STEVE Submitting Physician: ALVIN MATHUR DO [id number] Specimen #[id number] Performing Lab: ??[facility] ? [address] [place], [place] [id number] Source: Gallbladder and stones Clinical History/Pre-Op Cholecystitis [...] ? ?The mucosal wall measures 0.3 cm. ??Internal Medicine Physician sections are submitted in cassette A1. KG/ed ?? Diagnosis Gallbladder, cholecystectomy: ACUTE NECROTIZING CHOLECYSTITIS. Electronically Signed By SANTY GUERIN MD - 08/16/2017 ed/08/16/2017 Specimen (Source) Anatomical Collection Method Collection Time Re ceived Time Location / / Volume Laterality Tissue 08/14/2017 7:18 PM (Gallbladder) DRILLING AND PRODUCTION SUPERINTENDENT Alvin Mathur D.O. LAB SURG PATH ORDERABLES Performing Organization Address City/[facility]/ZIP Code Phon e Number [place] [place] [address] [facility] [place] [address] documented in this encounter Visit Diagnoses Diagnosis Cholecystitis - Primary Cholecystitis documented in this encounter Admitting Diagnoses Diagnosis Cholecystitis documented in this encounter Administered Medications Inactive Administered Medications - up to 3 most recent administrations Medication Order MAR Action Action Date Dose Rate Site acetaminophen tablet 1,000 mg Given 08/15/2017 6:00 PM DRILLING AND PRODUCTION SUPERINTENDENT 1,000 mg (for_TYLENOL) 1,000 mg, oral, Every 6 hours PRN, mild pain or score 1-3 of 10, Starting on Sun08/15/17 at 0123 Given 08/15/2017 12:34 PM DRILLING AND PRODUCTION SUPERINTENDENT 1,[address] tablet 81 mg Given 08/15/2017 8:12 AM DRILLING AND PRODUCTION SUPERINTENDENT 81 mg 81 mg, oral, Daily, First dose on Sun08/15/17 at 0900, Swallow whole. Do NOT crush, chew, or split tablet. calcium carbonate-vitamin D3 1,250 mg (500 Given 08/15 8:12 AM DRILLING AND PRODUCTION SUPERINTENDENT 1 tablet mg calcium)-200 unit per tablet 1 tablet 1 tablet, oral, Daily with breakfast, First dose on Sun08/15/17 at 0800, calcium carbonate/vitamin D 600 mg/400 units was interchanged for calcium carbonate/vitamin D3 (Same frequency) cholecalciferol tablet 2,000 Units Given 08/15/2017 8:12 AM DRILLING AND PRODUCTION SUPERINTENDENT 2,000 Units (for_VITAMIN D3) 2,000 Units, oral, [...] surgical heparin (porcine) Given 08/14/2017 5:48 PM DRILLING AND PRODUCTION SUPERINTENDENT 5,000 Units Left Lower Abdomen injection 5,000 Units 5,000 Units, subcutaneous, Once, On Sun08/14/17 at 1745, For 1 dose, Intra-Op, Administer prior to induction of anesthesia. heparin (porcine) Given 08/15/2017 5:17 AM DRILLING AND PRODUCTION SUPERINTENDENT 5,000 Units Left Upper Abdomen injection 5,000 Units 5,000 Units, subcutaneous, 3 times daily, First dose on Sun08/15/17 at 0530 HYDROmorphone injection 1 mg (for_DILAUD ID) Given 08/14/2017 4:07 PM DRILLING AND PRODUCTION SUPERINTENDENT 1 mg 1 mg, intravenous, Every 1 hour PRN, pain, Starting on Sun08/14/17 at 1550 ketorolac injection 15 mg (for_TORADOL) Given 08/15/2017 7:19 AM DRILLING AND PRODUCTION SUPERINTENDENT 15 mg 15 mg, intravenous, Every 6 [...] lactated ringers New Bag 08/14/2017 4:12 PM DRILLING AND PRODUCTION SUPERINTENDENT 75 mL/hr 75 mL/hr 75 mL/hr, intravenous, Continuous, Starting on Sun08/14/17 at 1600, Pre-Op metoprolol tablet 12.5 mg (for_LOPRESSOR ) Given 08/14/2017 4:06 PM DRILLING AND PRODUCTION SUPERINTENDENT 12.5 mg 12.5 mg, oral, Once as [...] NaCl (iso-osm) New Bag 08/15/2017 2:47 PM DRILLING AND PRODUCTION SUPERINTENDENT 500 mg 200 mL/hr IVPB 500 mg (for_FLAGYL) 500 mg, intravenous, at 200 mL/hr, Administer over 30 Minutes, Every 8 hours, First dose on Sun08/15/17 at 0700, For 2 doses, Indications: Prophylaxis, surgical New Bag 08/15/2017 8:12 AM DRILLING AND PRODUCTION SUPERINTENDENT 500 mg 200 mL/hr NaCl 0.9% infusion [...] mg per Given 08/15/2017 8:12 A M DRILLING AND PRODUCTION SUPERINTENDENT 1 tablet tablet 1 tablet (for_SENOKOT-S) 1 tablet, oral, 2 times daily, First dose on Sun08/15/17 at 0900, for constipation sodium chloride 0.9 % injection 10 mL Given 08/14/2017 4:08 PM DRILLING AND PRODUCTION SUPERINTENDENT 10 mL 10 mL, intravenous, Every 8 [...] injection 3 mL Given 08/15/2017 8:12 AM DRILLING AND PRODUCTION SUPERINTENDENT 3 mL 3 mL, intravenous, As needed, [...] Recently Administered Medications Times are shown in DRILLING AND PRODUCTION SUPERINTENDENT. Scheduled Medication Order 08/13/2017 08/14/2017 08/15/2017 aspirin [...] (COMPLETED) 1747 (Given - Provider: Senia Manrique RMary) 5,000 Units, subcutaneous, Once, On Sun08/14/17 at 1745, For 1 dose, Intra-Op, Administer prior to induction of anesthesia. heparin (porcine) injection 5,000 Units 0517 (Given - Provider: Rupinder Muro R.N.)1400 (Not Given - Provider: George Rico R.N. - Reason: Patient/family refused) 5,000 Units, subcutaneous, 3 times daily, First dose on 07/21 at 0530 metroNIDAZOLE in NaCl (iso-osm) IVPB 500 mg (for_FLAGYL) (CO MPLETED) 1924 (Given - Provider: Kwan Whitley APRN, BELL HOLE DIGGER, D.N.P.) 500 mg, intravenous, at 200 mL/hr, [...] (Cancel ed Entry - Provider: Senia Manrique RMary)1612 (New Bag - Provider: Senia Manrique R.N.) [...] mg (for_DILAUDID) 1607 (Given - Provider: Senia Manrique, RNaomiNNaomi) 1 mg, intravenous, Every 1 hour [...] 50 mL 100 mL injection (CANC ELED) 2099 (Given - Provider: Alvin Mathur D.O.) As needed, Starting on Sun08/14/17 at 2100, Intra-Op metoprolol tablet 12.5 mg (for_LOPRESSOR) (COMPLETED) 1606 (Given - Provider: Senia Manrique RMary) 12.5 mg, oral, Once as needed, if [...] bed) As needed, Starting on Sun08/14/17 at 2033, [...]
--- OUTSIDE RECORDS SUMMARY | 2022-06-20 12:46 | XMS_ITS | Encounter Summary ---
:1955 Author Organization [facility] Address [address] [place] [address] Care Team Providers Name Role Phone Unavailable Primary Care Provider Unavailable Reason for Referral Physical Therapy (Routine) - Closed Specialty Diagnoses / Procedures Referred By Contact Refer red To Contact Diagnoses Primary Osteoarthritis Knee Bilateral Pain Knee Right Roberto Salazar [facility] Procedures PT Evaluate and treat Jose Alberto [address] [place] [phone] Referral ID Status Reason Start Date Expiration Date Visits Requ ested Visits Authorized [id number] Closed 02/02/2021 02/02/2022 1 1 Reason for Visit Appointment Request (Routine) - Closed Specialty Diagnoses / Procedures Referred By Contact Refer pamela To Contact Orthopedic Surgery Referral ID Status Reason Start Date Expiration Date Visits Requ ested Visits Authorized [id number] Closed 01/31/2021 01/31/2022 1 1 Encounter Details Date Type Department Care Team Description 02/02/2021 Comprehensive Visit Department of Martin Primary Osteoarthritis Knee Bilateral (Primary Dx); Orthopedic Surgery Zelda Weber Pain Knee Right in [address] [address] [place], [place] [phone] (Work) [phone] Social History Tobacco Use Types Packs/Day Years [...] How often do you attend synagogue or presybeterian More than 4 time s [...] attempted CHOLANGIOGRAM; Surgeon: Augie Feldman D.O.; Location: [facility] OR ??? OPEN TENOTOMY OF [...] mouth daily., Disp: , Rfl: ??? omega 5-pjl-iia-fish oil 600 mg-216 mg- 324 mg-1,200 mg [...] agreement with plan.She is going to take chyk-clp-wgdhbsf pain medications on an as-needed basis for pain control. She was not interested in any corticosteroid injection(s) in clinic today. She was not referred to formal physical therapy. She will return for follow-up on an as-needed basis. documented in this encounter Plan of Treatment Upcoming Encounters Date Type Specialty Care Team Description 07/05/2022 Appointment Radiology Post, Heath Del Real APRN, C.N.P. [address] [place] [address] [phone] (Wo rk) documented as of this encounter Results DX Knee [...]
--- OUTSIDE RECORDS SUMMARY | 2022-06-20 12:46 | XMS_ITS | Encounter Summary ---
:1955 Author Organization [facility] Address [address] [place] [address] Care Team Providers Name Role Phone Unavailable Primary Care Provider Unavailable Reason for Visit Reason Comments Cholelithiasis consult Appointment Request (Routine) - Closed Specialty Diagnoses / Procedures Referred By Contact Refer red To Contact Referral ID Status Reason Start Date Expiration Date Visits Requ ested Visits Authorized [id number] Closed 08/14/2017 02/10/2018 1 1 Encounter Details Date Type Department Care Team Description 08/14/2017 Comprehensive Visit Department of Cristo Feldman General Surgery in Kristina Moulton (Primary Dx) Kris [place], [address] [place] [address] [place] [address] [place] [phone] Social History Tobacco Use Types Packs/Day Years [...] How often do you attend bahai or hindu More than 4 time s [...] Comments Blood Pressure 157/74 08/14/2017 1:47 PM REINSURANCE CLERK Pulse 84 08/14/2017 1:47 PM REINSURANCE CLERK Temperature 37.3 ??C (99.1 ??F) 08/14/2017 1:42 PM REINSURANCE CLERK Respiratory Rate - - Oxygen Saturation - [...] 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 PAST OBSTETRICAL HISTORY: 0, para 0. Last [...] any significant cardiopulmonary risk factors. Job ID: [id number] SURANCE CLERK documented in this encounter Plan of Treatment Upcoming Encounters Date Type Specialty Care Team Description 07/05/2022 Appointment Radiology Post, Heath Del Real APRN, C.N.P. [address] [place] [address] [phone] (Wo rk) documented as of this encounter Visit Diagnoses Diagnosis Cholecystitis - Primary documented in this encounter
--- OUTSIDE RECORDS SUMMARY | 2022-06-20 12:46 | XMS_ITS | Encounter Summary ---
:1955 Author Organization [facility] Address [address] [place] [address] Care Team Providers Name Role Phone Unavailable Primary Care Provider Unavailable Reason for Referral Outpatient (Routine) - Closed Specialty Diagnoses / Procedures Referred By Contact Refer red To Contact General Surgery Diagnoses Follow Up Examination Postoperative Visit Augie Feldman [facility] KRISTINE fried D.O. [address] [place] [phone] Referral ID Status Reason Start Date Expiration Date Visits Requ ested Visits Authorized [id number] Closed 08/16/2017 02/12/2018 1 1 R SAW OPERATOR Encounter Details Date Type Department Care Team Description 08/16/2017 Orders Only Department of General Lucretia Gerardo F ollow Up Examination [place] Postoperative Visit [place] [address] Angela Altman (Primary Dx) [address] [place] [phone] Social History Tobacco Use Types Packs/Day Years [...] How often do you attend quaker or zoroastrianism More than 4 time s [...] Heath Del Real APRN, C.N.P. [address] [place], [place] [phone] (Wo rk) Scheduled Referrals Name Type Priority Associated Diagnoses Order S [facility] General Surgery Outpatient Referral Routine Follow Up Examinat ion Expected: Post Op (clinic) Postoperative Visit 07/21, Expires: 08/16/2020 documented as of this encounter Visit Diagnoses Diagnosis Follow Up Examination Postoperative Visi t - Primary documented in this encounter
--- OUTSIDE RECORDS SUMMARY | 2022-06-20 12:46 | XMS_ITS | Encounter Summary ---
:1955 Author Organization [facility] Address [address] [place] [address] Care Team Providers Name Role Phone Unavailable Primary Care Provider Unavailable Reason for Visit Reason Comments Follow-up right foot neuroma returned new orthotics? Encounter Details Date Type Department Care Team Description 11/21/2018 [facility] To e Acquired Right (Primary Dx); Orthopedic Surgery in , Ana Neurom a; Ezekiel Beasley D.P.M. Pronation Foot Left; [address] Pronation Foot Right; KRISTINE BEASLEY PR Metatarsalgia L eft; [id number] Metatarsalgia Right [phone] Social History Tobacco Use Types Packs/Day Years [...] How often do you attend congregational or church More than 4 time s [...] 2 tablets by mouth daily. ??? omega 1-dvx-dsx-fish oil 600 mg-216 mg- 324 mg-1,200 mg [...] Post, Heath Del Real APRN, C.N.P. 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
--- OUTSIDE RECORDS SUMMARY | 2022-06-20 12:46 | XMS_ITS | Encounter Summary ---
:1955 Author Organization [facility] Address [address] [place] [address] Care Team Providers Name Role Phone Unavailable Primary Care Provider Unavailable Reason for Referral Specialty Diagnoses / Procedures Referred By Contact Refer red To Contact Torin Nguyen M.D. [facility] Referral ID Status Reason Start Date Expiration Date Visits Requ ested Visits Authorized RANCE RISK ANALYST Encounter Details Date Type Department Care Team Description 10/20/2020 Orders Only [facility] KRISTINE Sa handy Cheng M.D. [address] [place], [place] [address] [phone] (Wo rk) Social History [...] How often do you attend zoroastrianism or latter-day More than 4 time s [...] Heath Del Real APRN, C.N.P. [address] [place] [address] [phone] (Wo rk) Scheduled Referrals Name Type Priority Associated Order Schedule Diagnoses Covid immunization Outpatient Referral Routine Ex pected: office visit Initial 021 (Approximate), Expires: 10/20/2021 documented as of this encounter Visit Diagnoses Not on filedocumented in this encounter
--- OUTSIDE RECORDS SUMMARY | 2022-06-20 12:46 | XMS_ITS | Encounter Summary ---
:1955 Author Organization [facility] Address [address] [place] [address] Care Team Providers Name Role Phone Unavailable Primary Care Provider Unavailable Reason for Visit Reason Comments Post-op Lap mona 08/14/17 Outpatient (Routine) - Closed Specialty Diagnoses / Procedures Referred By Contact Refer red To Contact General Surgery Diagnoses Cholecystitis Augie Feldman D.O. [facility] [address] [place] [address] Referral ID Status Reason Start Date Expiration Date Visits Requ ested Visits Authorized [id number] Closed 08/15/2017 02/11/2018 1 1 Encounter Details Date Type Department Care Team Description 08/22/2017 Office Visit Department of General Augie Feldman, Cholecystitis Surgery in Kris Haro D.O. [address] [place] [address] [place] [address] [phone] Social History Tobacco Use Types Packs/Day Years [...] How often do you attend taoism or mormonism More than 4 time s [...] Comments Blood Pressure 137/75 08/22/2017 9:26 AM CERAMIC CAPACITOR PROCESSOR Pulse 75 08/22/2017 9:26 AM CERAMIC CAPACITOR PROCESSOR Temperature 36.4 ??C (97.5 ??F) 08/22/2017 9:26 AM CERAMIC CAPACITOR PROCESSOR Respiratory Rate - - Oxygen Saturation - [...] happy to re-evaluate as needed. Job ID: [id number] MIC CAPACITOR PROCESSOR documented in this encounter Plan of Treatment Upcoming Encounters Date Type Specialty Care Team Description 07/05/2022 Appointment Radiology Post, Heath Del Real APRN, C.N.P. [address] [place] [phone] (Wo rk) documented as of this encounter Visit Diagnoses Diagnosis Cholecystitis documented in this encounter
--- OUTSIDE RECORDS SUMMARY | 2022-06-20 12:46 | XMS_ITS | Encounter Summary ---
:1955 Author Organization [facility] Address [address] [place] [address] Care Team Providers Name Role Phone Unavailable Primary Care Provider Unavailable Encounter Details Date Type Department Care Team Description 11/22/2020 Immunization Department of [facility] Shen Bowman For COVID-19 Medicine, Anderson Jose Alberto Del Real Vaccine Immunization Professional Building, 200 [facility] in [address] [address] [place] [address] [phone] Social History Tobacco Use Types Packs/Day Years [...] How often do you attend alevism or nondenominational More than 4 time s [...] Post, Heath Del Real APRN, C.N.P. [address] [place] [address] [phone] (Wo rk) documented as of this encounter Visit Diagnoses Diagnosis Encounter For COVID-19 Vaccine Immunizat ion documented in this encounter
--- OUTSIDE RECORDS SUMMARY | 2022-06-20 12:47 | XMS_ITS | Encounter Summary ---
:1955 Author Organization [facility] Address [address] [place] [address] Care Team Providers Name Role Phone Unavailable Primary Care Provider Unavailable Encounter Details Date Type Department Care Team Description 09/03/2012 Hospital Encounter HX NO MAPPING Cayetano Raphael, P.A.- C. Social History Tobacco Use Types Packs/Day [...] Post, Heath Del Real APRN, C.N.P. [address] [place] [address] [phone] (Wo rk) documented as of this encounter Visit Diagnoses Not on filedocumented in this encounter
--- OUTSIDE RECORDS SUMMARY | 2022-06-20 12:47 | XMS_ITS | Encounter Summary ---
:[address] [facility] Address [address] [place] [address] Care Team Providers Name Role Phone Unavailable Primary Care Provider Unavailable Encounter Details Date Type Department Care Team Description 12/15/2016 [facility] [address] [place] [phone] (Wo rk) Social History Tobacco Use [...] often do you attend jehovah's witness or gnosticist More than 4 time s [...] daily. mg(1,250mg) -125 unit per tablet omega 1-ggj-yfp-fish oil Take 1 capsule by 0 10/1910/03/2021 600 mg-216 mg- 324 mouth daily. mg-1,200 mg capsule,delayed release(DR/EC) documented as of this encounter Miscellaneous Notes Miscellaneous - Conversion, Historical Provider Ser - 12/15/2016 11:59 PM CDT Coding Summary-Paper Based CODING DATE: 12/21/2016 FINAL [facility] STATUS: * Discharged to Home or [...] CLARKE Date Saved: 12/21/2016 03:02 pm Source: [facility] POWERCHART Document Id: [id number] documented in this encounter Plan of Treatment Upcoming Encounters Date Type Specialty Care Team Description 07/05/2022 Appointment Radiology Post, Heath Del Real APRN, C.N.P. [address] [place] [address] [phone] (Wo rk) documented as of this encounter Visit Diagnoses Not on filedocumented in this encounter
--- OUTSIDE RECORDS SUMMARY | 2022-06-20 12:47 | XMS_ITS | Encounter Summary ---
:1955 Author Organization [facility] Address [address] [place] [address] Care Team Providers Name Role Phone Unavailable Primary Care Provider Unavailable Encounter Details Date Type Department Care Team Description 07/16/2012 Hospital Encounter HX NO MAPPING Carlos Lawton, P.A.Brandon C. Social History Tobacco Use Types Packs/Day [...] How often do you attend protestant or jainism More than 4 time s [...] Comments Blood Pressure 136/78 07/16/2012 3:41 PM FINE ARTIST Pulse 88 07/16/2012 3:41 PM FINE ARTIST Temperature - - Respiratory Rate 16 07/16/2012 3:41 PM FINE ARTIST Oxygen Saturation - - Inhaled Oxygen Concentration [...] Carlos Lawton - 07/16/2012 3:36 PM CST [id number] IMPRESSION/REPORT/PLAN Ms. Tillman is a 57-year-old female [...] LAWTON PA-C On: 08/06/2012 02:15 PM Source: [facility] MHSDOLBEYNPATRICIASYS Document Id: [id number] ARTIST documented in this encounter Miscellaneous Notes Miscellaneous - Carlos Lawton - 07/16/2012 5:06 PM CST Ambulatory Depart Summary [facility] [address] [place] [address] Visit Information Name: COLLEEN TILLMAN [facility] Number: [id number] Visit Date: 07/16/2012 17:06:53 Attending Provider: CARLOS LAWTON PA-C Primary Care Provider: PCPVENU COLLEEN TILLMAN has been given the following [...] your provider for clarification. Additional Information: Source: [facility] POWERCHART Document Id: [id number] ARTIST Miscellaneous - Carlos Lawton - 07/16/2012 5:06 PM CST Ambulatory Patient Summary [place] [id number] Visit Information Name: COLLEEN TILLMAN [facility] Number: [id number] Current Date: 07/16/2012 17:06:54 [...] Date Time Location Reason Provider 07/25/2012 07:45 [facility] PT/OT LEFT proximal humerus Fx, comminuted and mildly displaced. Begin GENTLE PROM for weeks 3-4 out from Fx, then gentle AAROM wks 4- 5, progress from there. Thanks. Edgardo Vincent 08/06/2012 10:15 [facility] Follow up on Lt shoulder Carlos Lawton PA-C Your Goals/Additional instructions: Source: [facility] POWERCHART Document Id: [id number] ARTIST Miscellaneous - Rose Ziegler R.N. 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 Intake/History Adult Floral Designer Salesperson Intake/History Entered On: 07/16/2012 15:46 FINE ARTIST Performed On: 07/16/2012 15:41 FINE ARTIST by ROSE ZIEGLER inspector plating Chief Complaint : f/u lt shoulder fx Temperature Core : 36.6C(Converted to: 97.9DegF) Peripheral Pulse Rate : 88/min Respiratory Rate : 16/min Heart Rhythm : Regular Systolic Blood Pressure : 136mmHg Diastolic Blood Pressure : 78mmHg NIBP Mean : 97mmHg BP Location : Right upper extremity Blood Pressure Cuff Size : Large ROSE ZIEGLER RN - 07/16/2012 15:41 FINE ARTIST General Info Information Given By : Patient Preferred Communication Mode : Verbal Languages : Greek ROSE ZIEGLER RN - 07/16/2012 15:41 FINE ARTIST Subjective Pain Symptoms : Yes ROSE ZIEGLER RN - 07/16/2012 15:41 FINE ARTIST Pain Pain Assessment Grid Pain 1 Location : Shoulder Laterality : Left Time Pattern : Chronic, Intermittent ROSE ZIEGLER RN - 07/16/2012 15:41 FINE ARTIST Dependent Habits Tobacco Use/Currently Using : No Exposure to Tobacco Smoke : Care provider denies smoking in home Smoking Status : Never smoker ROSE ZIEGLER RN - 07/16/2012 15:41 FINE ARTIST Tobacco Use Grid Last Use : never ROSE ZIEGLER RN - 07/16/2012 15:41 FINE ARTIST Caffeine Use Grid Caffeine Use : None ROSE ZIEGLER RN - 07/16/2012 15:41 FINE ARTIST Recreational Drug Use Grid Drug Use : None ROSE ZIEGLER RN - 07/16/2012 15:41 FINE ARTIST Allergy Allergies (Active) Ceftin Estimated Onset Date: Unspecified ; Reactions: hives ; Created By: MADDIE AGOSTO LPN; Reaction Status: Active ; Category: Drug ; Substance: Ceftin ; Type: Allergy ; Updated By: MADDIE AGOSTO LPN; Reviewed Date: 07/16/2012 15:39 FINE ARTIST Source: [facility] [employer] Document Id: [id number] ARTIST documented in this encounter Plan of Treatment Upcoming Encounters Date Type Specialty Care Team Description 07/05/2022 Appointment Radiology Post, Heath Del Real APRN, C.N.P. [address] [place] [address] [phone] (Wo rk) documented as of this encounter Visit Diagnoses Not on filedocumented in this encounter
--- OUTSIDE RECORDS SUMMARY | 2022-06-20 12:47 | XMS_ITS | Encounter Summary ---
:1955 Author Organization [facility] Address [address] [place] [address] Care Team Providers Name Role Phone Unavailable Primary Care Provider Unavailable Encounter Details Date Type Department Care Team Description 10/08/2012 Hospital Encounter HX NO MAPPING Carlos Lawton, P.A.- C. Social History Tobacco Use Types [...] How often do you attend amish or catholic More than 4 time s [...] Comments Blood Pressure 116/70 10/08/2012 7:58 AM RURAL ROUTE MAIL CARRIER Pulse 80 10/08/2012 7:58 AM RURAL ROUTE MAIL CARRIER Temperature - - Respiratory Rate 16 10/08/2012 7:58 AM RURAL ROUTE MAIL CARRIER Oxygen Saturation - - Inhaled Oxygen Concentration [...] Carlos Lawton - 10/08/2012 7:52 AM CST [id number] CHIEF COMPLAINT/REASON FOR VISIT Ms. Tillman is [...] stable and solid. Carlos Lawton P.A.-C./carlene DOCID: [id number] Electronically Signed By: CARLOS LAWTON PA-C On: 10/22/2012 02:41 PM Source: [facility] MHSDOLBEYNONRADSYS Document Id: [id number] L ROUTE MAIL CARRIER documented in this encounter Miscellaneous Notes Miscellaneous - Carlos Lawton - 10/08/2012 12:13 PM CST Ambulatory Patient Summary [address] [address] Visit Information Name: COLLEEN TILLMAN [facility] Number: [id number] Current Date: 10/08/2012 12:13:57 Physicians Attending Provider: CARLOS LAWTON PA-C Primary Care Provider: CHRISSY DE LA CRUZ DNP, CHUTE PULLER Your Medications Here is a list of [...] No Appointments found Your Goals/Additional instructions: Source: [facility] POWERCHART Document Id: [id number] L ROUTE MAIL CARRIER Miscellaneous - Carlos Lawton - 10/08/2012 12:13 PM CST Ambulatory Depart Summary [address] [address] Visit Information Name: GINOClarita NEWSOMEVOKARYN PIÑAON [facility] Number: [id number] Visit Date: 10/08/2012 12:13:56 Attending Provider: CARLOS LAWTON PA-C Primary Care Provider: CHRISSY DE LA CRUZ DNP, CHUTE PULLER LAYNECOLLEENUSON has been given the following list of [...] your provider for clarification. Additional Information: Source: [facility] POWERCHART Document Id: [id number] L ROUTE MAIL CARRIER Miscellaneous - Rose Ziegler R.N. - 10/08/2012 7:58 AM CST Adult Health Care Analyst Intake/History Adult Health Care Analyst Intake/History Entered On: 10/08/2012 8:03 RURAL ROUTE MAIL CARRIER Performed On: 10/08/2012 7:58 RURAL ROUTE MAIL CARRIER by ROSE ZIEGLER forging press operator Chief Complaint : f/u lt humerus fx, [...] 98% ROSE ZIEGLER RN - 10/08/2012 7:58 RURAL ROUTE MAIL CARRIER General Info Information Given By : Patient Preferred Communication Mode : Verbal Languages : Wolof ROSE ZIEGLER RN - 10/08/2012 7:58 RURAL ROUTE MAIL CARRIER Subjective Pain Symptoms : No ROSE ZIEGLER RN - 10/08/2012 7:58 RURAL ROUTE MAIL CARRIER Dependent Habits Tobacco Use/Currently Using : No Exposure to Tobacco Smoke : Care provider denies smoking in home Smoking Status : Never smoker ROSE ZIEGLER RN - 10/08/2012 7:58 RURAL ROUTE MAIL CARRIER Tobacco Use Grid Type : Cigarettes Last Use : never ROSE ZIEGLER RN - 10/08/2012 7:58 RURAL ROUTE MAIL CARRIER Caffeine Use Grid Caffeine Use : None ROSE ZIEGLER RN - 10/08/2012 7:58 RURAL ROUTE MAIL CARRIER Recreational Drug Use Grid Drug Use : None ROSE ZIEGLER RN - 10/08/2012 7:58 RURAL ROUTE MAIL CARRIER Allergy Allergies (Active) Ceftin Estimated Onset Date: Unspecified ; Reactions: hives ; Created By: MADDIE AGOSTO LPN; Reaction Status: Active ; Category: Drug ; Substance: Ceftin ; Type: Allergy ; Updated By: MADDIE AGOSTO LPN; Reviewed Date: 10/08/2012 7:58 RURAL ROUTE MAIL CARRIER Source: [facility] POWERCHART Document Id: [id number] L ROUTE MAIL CARRIER documented in this encounter Plan of Treatment Upcoming Encounters Date Type Specialty Care Team Description 07/05/2022 Appointment Radiology Post, Heath Del Real APRN, C.N.P. [address] [place] [phone] (Wo rk) documented as of this encounter Visit Diagnoses Not on filedocumented in this encounter
--- OUTSIDE RECORDS SUMMARY | 2022-06-20 12:47 | XMS_ITS | Encounter Summary ---
:1955 Author Organization [facility] Address [address] [place] [address] Care Team Providers Name Role Phone Unavailable Primary Care Provider Unavailable Encounter Details Date Type Department Care Team Description 11/25/2015 Hospital Encounter [facility]X [facility] Annemarie Basurto M.D. [address] [place], [place] [phone] (Wo rk) Social History [...] How often do you attend methodist or sikhism More than 4 time s [...] daily. mg(1,250mg) -125 unit per tablet omega 0-lwx-mlw-fish oil Take 1 capsule by 0 10/1910/03/2021 [...] ESQUIVEL MD On: 11/25/2015 12:40 PM Source: [facility] POWERCHART Document Id: [id number] Duran Esquivel M.D. - 11/25/2015 10:31 AM CDT [id number] Patient presents today with a recent onset [...] ESQUIVEL MD On: 12/05/2015 06:25 PM Source: [facility] MHSDOLBEYNONRADSYS Document Id: [id number] documented in this encounter Miscellaneous Notes Miscellaneous - Sabra Cespedes [facility] - 11/25/2015 10:54 AM CDT Adult Wheat Grower Intake/History Adult Wheat Grower Intake/History Entered On: 11/25/2015 10:55 CDT Performed On: 11/25/2015 10:54 CDT by SABRA CESPEDES Intake Chief Complaint : floaters and flashes in Left eye for 2-3 days Height : 156 cm(Converted to: 5 ft 1 inch(es), 61 inch(es)) SABRA CESPEDES - 11/25/2015 10:54 CDT General Info Information Given By : Patient Languages : Italian Is Patient Female and 13-50 no hysterectomy [...] SABRA CESPEDES - 11/25/2015 10:54 CDT Source: [facility] POWERCHART Document Id: [id number] documented in this encounter Plan of Treatment Upcoming Encounters Date Type Specialty Care Team Description 07/05/2022 Appointment Radiology Post, Duran Del Real APRN, C.N.P. [address] [place] [address] [phone] (Wo rk) documented as of this encounter Visit Diagnoses Not on filedocumented in this encounter
--- OUTSIDE RECORDS SUMMARY | 2022-06-20 12:47 | XMS_ITS | Encounter Summary ---
:1955 Author Organization [facility] Address [address] [place] [address] Care Team Providers Name Role Phone Unavailable Primary Care Provider Unavailable Encounter Details Date Type Department Care Team Description 01/28/2013 Hospital Encounter HX [facility] Yulissa Ruffin APRN, C.N.P. [address] [phone] (Wo rk) Social History Tobacco Use [...] How often do you attend anglican or confucianism More than 4 time s [...] Heath Del Real APRN, C.N.P. [address] [place], [place] [phone] (Wo rk) documented as of this encounter Visit Diagnoses Not on filedocumented in this encounter
--- OUTSIDE RECORDS SUMMARY | 2022-06-20 12:47 | XMS_ITS | Encounter Summary ---
:1955 Author Organization [facility] Address [address] [place] [address] Care Team Providers Name Role Phone Unavailable Primary Care Provider Unavailable Encounter Details Date Type Department Care Team Description 10/08/2015 Hospital Encounter [facility] Shereen Kaplan, C.N.P. [address] [place] [address] (Wo rk) Social History Tobacco [...] How often do you attend mandaen or yarsani More than 4 time s [...] 156 cm (5' 1.42) 10/08/2015 11:03 AM ELECTRIC MOTOR MECHANIC Body Mass Index - - documented in [...] daily. mg(1,250mg) -125 unit per tablet omega 4-vkg-aqp-fish oil Take 1 capsule by 0 10/1910/03/2021 [...] Caller Information: Who initiated call? (x)Patient/caller (_) [facility] Staff Who was the communication with? (x)Patient (_) Spouse (_) Parent (_) Child (_)Legal Hhas (_) Outside Healthcare Provider (assisted, pharmacy, Etc.) (_)Other_ What number is patient/caller calling from? [phone] May we leave information on voice mail or answering machine if needed? (_) No (x) Yes Marketing Development Manager requested? (x)No (_) Yes Comment: _ [...] Provider consulted Name_ (x) RN judgement Source: [facility] [employer] Document Id: [id number] Miscellaneous - Conversion, Historical Provider Ser - 10/08/2015 11:59 PM ELECTRIC MOTOR MECHANIC Coding Summary-Paper Based CODING DATE: 10/15/2015 FINAL [facility] STATUS: * Discharged to Home [...] CLARKE Date Saved: 10/15/2015 02:05 pm Source: [employer] Document Id: [id number] documented in this encounter Plan of Treatment Upcoming Encounters Date Type Specialty Care Team Description 07/05/2022 Appointment Radiology Post, Heath Del Real APRN, C.N.P. [address] [place] [phone] (Wo rk) documented as of this encounter Visit Diagnoses Not on filedocumented in this encounter
--- OUTSIDE RECORDS SUMMARY | 2022-06-20 12:47 | XMS_ITS | Encounter Summary ---
:1955 Author Organization [facility] Address [address] [place] [address] Care Team Providers Name Role Phone Unavailable [...] How often do you attend holiness or adventism More than 4 time s [...] Heath Del Real APRN, C.N.P. [address] [place] [address] [phone] (Wo rk) documented as of this encounter Visit Diagnoses Not on filedocumented in this encounter
--- OUTSIDE RECORDS SUMMARY | 2022-06-20 12:47 | XMS_ITS | Encounter Summary ---
:1955 Author Organization [facility] Address [address] [place] [address] Care Team Providers Name Role Phone Unavailable Primary Care Provider Unavailable Encounter Details Date Type Department Care Team Description 08/06/2012 Hospital Encounter HX NO MAPPING Cayetano Raphael, P.A.Brandon C. Social History Tobacco Use Types [...] How often do you attend advent or yazidism More than 4 time s [...] Post, Heath Del Real APRN, C.N.P. [address] [place] [address] [phone] (Wo rk) documented as of this encounter Visit Diagnoses Not on filedocumented in this encounter
--- OUTSIDE RECORDS SUMMARY | 2022-06-20 12:47 | XMS_ITS | Encounter Summary ---
:1955 Author Organization [facility] Address [address] [place] [address] Care Team Providers Name Role Phone Unavailable Primary Care Provider Unavailable Encounter Details Date Type Department Care Team Description 08/09/2012 Hospital Encounter HX [facility] Elena Gilman, FABIANA, C.N.P., D. N.P. [address] [address] [phone] (Wo rk) Social History Tobacco Use [...] How often do you attend cheondoism or mosque More than 4 time s [...] D.N.P., C.N.P. - 08/09/2012 8:36 AM CST [id number] CHIEF COMPLAINT/REASON FOR VISIT Multiple issues. HISTORY [...] tobacco usage. ALLERGIES Ceftin. CURRENT MEDICATIONS Tylenol ydso-vfs-blgloyt as directed on package as needed. Aspirin 81 mg by mouth daily. Ibuprofen hbns-qct-uvoenst as directed on package as needed. Melaleuca [...] and reactive to light and accommodation. OROPHARYNX: [place] and moist. TMs: Bilateral tympanic membranes are [...] Ventricular rate at 74 beats per minute, NH interval 156 ms, QRS duration 80 ms, [...] the patient, or at least doing an vhxc-yvy-twiyywkTludyoxs extended release 1 tablet by mouth daily. [...] in which she states it was through [facility] in [place]. I did discuss the vaginal dilators with [...] DNP, FNP On: 08/12/2012 12:59 PM Source: [facility] MHSDOLBEYNONRADSYS Document Id: [id number] APY MANAGER documented in this encounter Miscellaneous Notes Miscellaneous - Ana De La Cruz D.N.P., C.N.P. - 08/09/2012 2:48 PM THERAPY MANAGER Results Notification Document Contains Addenda Addendum by MADDIE AGOSTO LPN on 12 August 2012 09:38:33 THERAPY MANAGER Copy of bone density sent to patient. From: ANA DE LA CRUZ DNP, FNP To: MADDIE AGOSTO LPN Sent: 08/09/2012 14:48:54 THERAPY MANAGER ! Show up: 08/09/2012 20:48:54 [facility] Subject: Results Notification Actions: Note to Nurse Source: [facility] POWERCHART Document Id: [id number] Electronically signed by Lizeth [facility] Structural Steel Erector [id number] at 01/20/2017 3:57 PM CDT documented in this encounter Plan of Treatment Upcoming Encounters Date Type Specialty Care Team Description 07/05/2022 Appointment Radiology Post, Heath Del Real APRN, C.N.PNaomi [address] [place], [place] [phone] (Wo rk) documented as of this encounter Visit Diagnoses Not on filedocumented in this encounter
--- OUTSIDE RECORDS SUMMARY | 2022-06-20 12:47 | XMS_ITS | Encounter Summary ---
:1955 Author Organization [facility] Address [address] [place] [address] Care Team Providers Name Role Phone Unavailable Primary Care Provider Unavailable Encounter Details Date Type Department Care Team Description 03/04/2013 Hospital Encounter HX [facility] Ana Felix D.P.M. [address] [place] [phone] (Wo rk) Social History Tobacco Use [...] How often do you attend jewish or latter day More than 4 time [...] Provider Ser - 03/04/2013 12:00 AM CDT [id number] Please call patient at [phone] concerning Source: [facility] Document Id: [id number] documented in this encounter Plan of Treatment Upcoming Encounters Date Type Specialty Care Team Description 07/05/2022 Appointment Radiology Post, Heath Del Real APRN, C.N.P. [address] [place] [phone] (Wo rk) documented as of this encounter Visit Diagnoses Not on filedocumented in this encounter
--- OUTSIDE RECORDS SUMMARY | 2022-06-20 12:47 | XMS_ITS | Encounter Summary ---
:1955 Author Organization [facility] Address [address] [place] [address] Care Team Providers Name Role Phone Unavailable Primary Care Provider Unavailable Reason for Referral Outpatient (Routine) - Closed Specialty Diagnoses / Procedures Referred By Contact Refer red To Contact Emergency Medicine Diagnoses Colic Biliary Augie Berry M.D. [facility] [address] [phone] Referral ID Status Reason Start Date Expiration Date Visits Requ ested Visits Authorized [id number] Closed 08/14/2017 02/10/2018 1 1 utpatient (Routine) - Closed Specialty Diagnoses / Procedures Referred By Contact Refer red To Contact Emergency Medicine Diagnoses Cholecystitis Shivam Samayoa M.D. [facility] [address] [phone] Referral ID Status Reason Start Date Expiration Date Visits Requ ested Visits Authorized [id number] Closed 08/14/2017 02/10/2018 1 1 AY MODEL Reason for Visit Reason Comments Pain c/o pain across backalong di aphram and tenderness in upper abd. Auth/Cert Specialty Diagnoses / Procedures Referred By Contact Refer red To Contact Diagnoses Calculus of bile duct without cholangitis or cholecystitis with obstruction Calculus of bile duct without cholangitis or cholecystitis with obstruction Procedures OK CHOLECYSTECTOMY W CHOLANGIOGR Gallbladder removal Referral ID Status Reason Start Date Expiration Date Visits Requ ested Visits Authorized [id number] 1 1 Encounter Details Date Type Department Care Team Description 08/14/2017 Emergency [place] [facility] Shivam Samayoa, Cholec ystitis (Primary Dx); Department M.D. Colic Biliary [address] [facility] [address] [facility] [place] [phone] Social History Tobacco Use Types Packs/Day [...] How often do you attend confucianism or episcopalian More than 4 time s [...] Comments Blood Pressure 115/66 08/14/2017 1:15 PM RUNWAY MODEL Pulse 90 08/14/2017 1:15 PM RUNWAY MODEL Temperature 36.5 ??C (97.7 ??F) 08/14/2017 8:50 AM RUNWAY MODEL Respiratory Rate 14 08/14/2017 10:11 AM RUNWAY MODEL Oxygen Saturation 96% 08/14/2017 1:15 PM RUNWAY MODEL Inhaled Oxygen Concentration - - Weight 97.8 kg (215 lb 9.8 oz) 08/14/2017 8:52 AM RUNWAY MODEL Height 157.5 cm (5' 2) 08/14/2017 8:52 AM RUNWAY MODEL Body Mass Index 39.44 08/14/2017 8:52 AM RUNWAY MODEL documented in this encounter Discharge Instructions AttachmentsThe following attachments cannot be sent through Care Everywhere. Cholecystitis (Kyrgyz)documented in this encounter Medications at Time of [...] D3) 2,000 mouth daily. Unit capsule omega 4-nfm-ilc-fish oil Take 1 capsule by 0 10/1910/03/2021 [...] and complete. Shivam Samayoa M.D. 08/14/17 1229 AY MODEL documented in this encounter Plan of Treatment Upcoming Encounters Date Type Specialty Care Team Description 07/05/2022 Appointment Radiology Post, Heath Del Real APRN, C.N.P. [address] [place] [address] [phone] (Wo rk) Scheduled Referrals Name Type [...] OR BILIARY DUCTS (Fast; most ED AM RUNWAY MODEL procedure are in patients; some the results inpatients) section. HEPATIC FUNCTION STAT 08/14/2017 9:20 Results for this PANEL, S AM [facility]WAY MODEL procedure are i n the results section. CBC WITH STAT 08/14/2017 9:20 Results for this DIFFERENTIAL, B AM [facility]WAY MODEL procedure ar e in the results section. LIPASE, S/P STAT 08/14/2017 9:20 Results for this AM [facility] MODEL procedure are i n the results section. BASIC METABOLIC STAT 08/14/2017 9:20 Results f or this PANEL, S/P AM [facility]AY [facility]DEL procedure are i n the results section. documented in this encounter Results US Gallbladder (08/14/2017 9:52 AM RUNWAY MODEL) Anatomical Region Laterality Modality Abdomen N/A Ultrasound Specimen (Source) Anatomical Collection Method Collection Time Re ceived Time Location / / Volume Laterality 08/14/2017 9:58 AM RUNWAY MODEL Impressions 08/14/2017 10:03 AM [facility]WAY MODEL IMPRESSION: Distended gallbladder with stones and sludge. Sonographic Saunders sign was unable to be accurately assesse d secondary to the patient having received pain medications. Exam is equiv ocal for cholecystitis. Consider surgical consultation as clinically [place] cated. Findings discussed on the phone on 08/14 at 10:[address] Samayoa. Narrative 08/14/2017 10:03 AM RUNWAY MODEL EXAM: US GALLBLADDER COMPARISON: None FINDINGS: Gallbladder [...] PROCEDURES Hepatic Function Panel (08/14/2017 9:20 AM RUNWAY MODEL) [facility] Method Time Signature Bilirubin, Total, S 0.6 <=1.2 08/14/2017 [facility] mg/dL 9:48 AM [facility] [employer] [facility] Bilirubin, Direct, S <0.2 0.0 - 0.3 08/14/2017 [facility] mg/dL 10:15 AM [facility] [employer] [facility] Aspartate 26 8 - 43 08/14/2017 [facility] Aminotransferase U/L 9:48 AM [facility] [employer] (AST), [employer] [email or web address] Alanine 32 7 - 45 08/14/2017 [facility] Aminotransferase U/L 9:48 AM [facility] [employer] (ALT), [employer] [facility] Alkaline 106 50 - 130 08/14/2017 [facility] Phosphatase, S U/L 9:48 AM [facility] [employer] [email or web address] Albumin, S 4.4 3.5 - 5.0 08/14/2017 [facility] g/dL 9:48 AM [email or web address] Protein, Total, S 7.2 6.3 - 7.9 08/14/2017 [facility] g/dL 9:48 AM [facility] [employer] [facility] Specimen Anatomical Collection Method Collection Time Receive d Time (Source) Location / / Volume Laterality Blood (Blood, 08/14/2017 9:20 AM 08/14/20 17 9:25 Venous) RUNWAY MODEL AM [facility] Shivam Samayoa M.D. LAB BLOOD ADD-ON Performing Organization Address City/State/ZIP Code Phon e Number [facility] [place] [address] [place] [facility] Lipase (08/14/2017 9:20 AM [facility]WAY MODEL) P athologist Signature Lipase, P 27 13 - 60 U/L 08/14/2017 [facility] 9:48 AM [facility] LAB Specimen Anatomical Collection Method Collection Time Receive d Time (Source) Location / / Volume Laterality Blood (Blood, 08/14/2017 9:20 AM 08/14/20 17 9:24 Venous) RUNWAY MODEL AM [facility] Shivam Samayoa M.D. LAB BLOOD ADD-ON Performing Organization Address City/State/ZIP Code Phon e Number [facility] [place], [place] [address] [place] [facility] (ABNORMAL) BMP (Basic Metabolic Panel) (08/14/2017 9:20 AM RUNWAY MODEL) Analysis Performed At Patho logist Time Signature Potassium, P 3.6 3.6 - 5.2 08/14/2017 [facility] mmol/L 9:[address] [employer] [facility] Sodium, P 137 135 - 145 08/14/2017 [facility] mmol/L 9:48 AM [facility] [employer] [facility] Chloride, P 99 98 - 107 08/14/2017 [facility] mmol/L 9:48 AM [facility] [employer] [facility] Bicarbonate, P 25 22 - 29 08/14/2017 [facility] mmol/L 9:[address] [employer] [facility] Anion Gap, P 13 7 - 15 08/14/2017 [facility] 9:48 AM [facility] [employer] [facility] BUN (Blood Urea 10 6 - 21 08/14/2017 [facility] Nitrogen), P mg/dL 9:48 AM [facility] Creatinine 0.58 (L) 0.59 - 08/14/2017 [facility] 1.04 mg/dL 9:48 AM [email or web address] eGFR-Black/Afri >90 >=60 08/14/2017 [facility] can Stateless mL/min/BSA 9:48 AM [facility] [employer] [facility] Comment: ----ADDITIONAL INFORMATION---- Estimated GFR calculated using the 2009 CKD_EPI creatinine equation. eGFR Non-Black/ >90 >=60 mL/min/BSA 08/14/2017 9:48 AM [facility] Stateless [facility] RED [employer] [facility] Comment: ----ADDITIONAL INFORMATION---- Estimated GFR calculated using the 2009 CKD_EPI creatinine equation. Calcium, Total, P 8.7 (L) 8.9 - 10.1 mg/dL 08/14/2017 9 :[address] [facility] EPIS LAB Glucose, P 122 70 - 140 mg/dL 08/14/2017 9:48 AM [facility] [employer] [facility] Specimen Anatomical Collection Method Collection Time Receive d Time (Source) Location / / Volume Laterality Blood (Blood, 08/14/2017 9:20 AM 08/14/20 17 9:24 Venous) RUNWAY MODEL AM [facility] Shivam Samayoa M.D. LAB BLOOD ADD-ON Performing Organization Address City/State/ZIP Code Phon e Number [facility] [address] [facility] [place] [address] [place] [facility] (ABNORMAL) CBC with Differential (08/14/2017 9:20 AM [facility]) [facility] Method Time Signature Hemoglobin 13.8 11.6 - 08/14/2017 [facility] 15.0 g/dL 9:27 AM [facility] [employer] [facility] Hematocrit 40.5 35.5 - 08/14/2017 [facility] 44.9 % 9:27 AM [facility] [employer] [facility] Erythrocytes 4.62 3.92 - 08/14/2017 [facility] 5.13 9:27 AM [facility] [employer] x10(12)/L [email or web address] EPIS LAB MCV 87.7 78.2 - 08/14/2017 [facility] 97.9 fL 9:27 AM [facility] [employer] [facility] RBC Distrib Width 13.3 12.2 - 08/14/2017 [facility] 16.1 % 9:27 AM [facility] Platelet Count 188 157 - 371 08/14/2017 [facility] x10(9)/L 9:27 AM [facility] Leukocytes 12.7 (H) 3.4 - 9.6 08/14/2017 [facility] x10(9)/L 9:27 AM [facility] [employer] [email or web address] Neutrophils 10.79 (H) 1.56 - 08/14/2017 [facility] 6.45 9:27 AM [employer] x10(9)/L [email or web address] Lymphocytes 1.18 0.95 - 08/14/2017 [facility] 3.07 9:27 AM [facility] HEALTH x10(9)/L [facility] Monocytes 0.63 0.26 - 08/14/2017 [facility] 0.81 9:27 AM [facility] HEALTH x10(9)/L [facility] Eosinophils 0.03 0.03 - 08/14/2017 [facility] 0.48 9:27 AM [facility] HEALTH x10(9)/L [facility] Basophils 0.03 0.01 - 08/14/2017 [facility] 0.08 9:27 AM [facility] HEALTH x10(9)/L [facility] Specimen Anatomical Collection Method Collection Time Receive d Time (Source) Location / / Volume Laterality Blood (Blood, 08/14/2017 9:20 AM 08/14/20 9:25 Venous) RUNWAY MODEL AM [facility] Shivam Samayoa M.D. LAB BLOOD ADD-ON Performing Organization Address City/State/ZIP Code Phon e Number [facility] [address] [place] [address] [place] [facility] documented in this encounter Visit Diagnoses Diagnosis Cholecystitis - Primary Colic Biliary documented in this encounter Administered Medications Inactive Administered Medications - up to 3 most recent administrations Medication Order MAR Action Action Date Dose Rate Site ciprofloxacin in D5W IVPB 400 New Bag 08/14/2017 12:15 PM 400 mg 200 mL/hr mg (for_CIPRO) [facility]WAY MODEL 400 mg, intravenous, at 200 mL/hr, Administer over 60 Minutes, Once, On Sun08/14/17 at 1110, For 1 dose, premix bag, Drug Monitoring Program: Pharmacist to adjust medication order based on comorbities and indication., Indications: Intra-abdominal infection, community acquired HYDROmorphone injection 0.5 mg (for_DILA UDID) Given 08/14/2017 1:24 PM [facility]DEL 0.5 mg 0.5 mg, intravenous, Every 15 min PRN, severe pain or score 7-10 of 10, Starting on Sun08/14/17 at 0908, For 4 doses Given 08/14/2017 11:26 AM [facility]AY [facility]DEL 0.5 mg Given 08/14/2017 9:17 AM [facility]WAY MODEL 0.5 mg metroNIDAZOLE in NaCl (iso-osm) New Bag 08/14/2017 11:40 AM CS T 500 mg 200 mL/hr IVPB 500 mg (for_FLAGYL) 500 mg, intravenous, at 200 mL/hr, Administer over 30 Minutes, Once, On Sun08/14/17 at 1110, For 1 dose, Indications: Intra-abdominal infection, community acquired NaCl 0.9 % bolus 1,000 mL New Bag 08/14/2017 9:18 AM RUNWAY MODEL 1,000 mL 1,000 mL, intravenous, Once, On Sun08/14/17 at 0909, For 1 dose documented in this encounter Active and Recently Administered Medications Times are shown in RUNWAY MODEL. Scheduled Medication Order 08/12/2017 08/13/2017 08/14/2017 ciprofloxacin [...] Provider: Georgette George R.N.)1210 (Stopped - Provider: Georgette George R.N.) 500 mg, intravenous, at 200 mL/hr, Admin ister over 30 Minutes, Once, On Sun08/14/17 at 1110, For 1 dose, Indications: Intra-abdominal infection, community acquired NaCl 0.9 % bolus 1,000 mL (COMPLETED) 0918 (New Bag - Provider: Georgette George R.N.)1050 (Stopped - Provider: Georgette George R.N.) 1,000 mL, intravenous, Once, On Sun08/14/17 at 0909, For 1 dose PRN Medication Order 08/12/2017 08/13/2017 08/14/2017 HYDROmorphone injection 0.5 mg (for_DILAUDID) 0917 (Given - Provider: Georgette J Callstrom, R.N.)1126 (Given - Provider: Georgette George R.N.)1324 (Given - Provider: Georgette George R.N.) 0.5 mg, intravenous, Every 15 min PRN, estefanía garzon pain or score 7-10 of 10, Starting on Sun08/14/17 at 0908, For 4 doses documented in this encounter
--- OUTSIDE RECORDS SUMMARY | 2022-06-20 12:47 | XMS_ITS | Encounter Summary ---
:1955 Author Organization [facility] Address [address] [place] [address] Care Team Providers Name Role Phone Unavailable [...] How often do you attend pentecostal or faith More than 4 time s [...] Comments Blood Pressure 140/86 08/06/2012 10:18 AM SENIOR IT SECURITY ANALYST Pulse - - Temperature - - [...] Carlos Lawton - 08/06/2012 10:11 AM CST [id number] HISTORY OF PRESENT ILLNESS This 57-year-old female [...] LAWTON PA-C On: 02/04/2013 08:18 AM Source: [facility] MHSDOLBEYNONRADSYS Document Id: [id number] documented in this encounter Miscellaneous Notes Miscellaneous - Carlos Lawton - 08/06/2012 4:08 PM CST Ambulatory Depart Summary [facility] [address] [address] Visit Information Name: COLLEEN TILLMAN [facility] Number: [id number] Visit Date: 08/06/2012 16:08:27 Attending Provider: CARLOS LAWTON PA-C Primary Care Provider: CHRISSY DE LA CRUZ DNP, LEASE ATTENDANT COLLEEN TILLMAN has been given the following [...] your provider for clarification. Additional Information: Source: [facility] POWERCHART Document Id: [id number] OR IT SECURITY ANALYST Fiordaliza - Carlos Lawton - 08/06/2012 4:08 PM CST Ambulatory Patient Summary [facility] Specialty [facility] [address] [place] [address] Visit Information Name: COLLEEN TILLMAN [facility] Number: [id number] Current Date: 08/06/2012 16:08:28 Physicians Attending Provider: CARLOS LAWTON PA-C Primary Care Provider: CHRISSY DE LA CRUZ DNP, LEASE ATTENDANT Your Medications Here is a list of [...] for Pain / Fever Take with food [facility] Prescription (Melaluca vitamins) 1 packet Oral once [...] Date Time Location Reason Provider 08/08/2012 08:15 [facility] Family Med ANNUAL PHYSICAL PAP? & ESTAB PCP 08/09/2012 08:00 CAM PT/OT Edgardo Gurrola 09/03/2012 14:30 [facility] Follow up Carlos Lawton PA-C Your Goals/Additional instructions: Source: [facility] POWERCHART Document Id: [id number] OR IT SECURITY ANALYST Miscellaneous - Rose Ziegler R.N. - 08/06/2012 10:18 AM CST Adult Kennel Manager Intake/History Adult Kennel Manager Intake/History Entered On: 08/06/2012 10:23 SENIOR IT SECURITY ANALYST Performed On: 08/06/2012 10:18 SENIOR IT SECURITY ANALYST by ROSE ZIEGLER wax cutter Chief Complaint : f/u left shoulder, humerus fx, doing well Temperature Core : 37.0C(Converted to: 98.6DegF) Systolic Blood Pressure : 140mmHg Diastolic Blood Pressure : 86mmHg NIBP Mean : 104mmHg BP Location : Left upper extremity Blood Pressure Cuff Size : Large ROSE ZIEGLER RN - 08/06/2012 10:18 SENIOR IT SECURITY ANALYST General Info Information Given By : Patient Preferred Communication Mode : Verbal Languages : Tajik ROSE ZIEGLER RN - 08/06/2012 10:18 SENIOR IT SECURITY ANALYST Subjective Pain Symptoms : Yes ROSE ZIEGLER RN - 08/06/2012 10:18 SENIOR IT SECURITY ANALYST Pain Pain Assessment Grid Pain 1 Location : Shoulder Laterality : Left Time Pattern : Chronic, Intermittent ROSE ZIEGLER RN - 08/06/2012 10:18 SENIOR IT SECURITY ANALYST Dependent Habits Tobacco Use/Currently Using : No Exposure to Tobacco Smoke : Care provider denies smoking in home Smoking Status : Never smoker ROSE ZIEGLER RN - 08/06/2012 10:18 SENIOR IT SECURITY ANALYST Tobacco Use Grid Last Use : never ROSE ZIEGLER RN - 08/06/2012 10:18 SENIOR IT SECURITY ANALYST Caffeine Use Grid Caffeine Use : None ROSE ZIEGLER RN - 08/06/2012 10:18 SENIOR IT SECURITY ANALYST Recreational Drug Use Grid Drug Use : None ROSE ZIEGLER RN - 08/06/2012 10:18 SENIOR IT SECURITY ANALYST Allergy Allergies (Active) Ceftin Estimated Onset Date: Unspecified ; Reactions: hives ; Created By: MADDIE AGOSTO LPN; Reaction Status: Active ; Category: Drug ; Substance: Ceftin ; Type: Allergy ; Updated By: MADDIE AGOSTO LPN; Reviewed Date: 08/06/2012 10:17 SENIOR IT SECURITY ANALYST Source: [facility] POWERCHART Document Id: [id number] OR IT SECURITY ANALYST documented in this encounter Plan of Treatment Upcoming Encounters Date Type Specialty Care Team Description 07/05/2022 Appointment Radiology Post, Heath Del Real APRN, C.N.P. [address] [place], [place] [address] [phone] (Wo rk) documented as of this encounter Visit Diagnoses Not on filedocumented in this encounter
--- OUTSIDE RECORDS SUMMARY | 2022-06-20 12:47 | XMS_ITS | Encounter Summary ---
:1955 Author Organization [facility] Address [address] [place] [address] Care Team Providers Name Role Phone Unavailable Primary Care Provider Unavailable Encounter Details Date Type Department Care Team Description 08/08/2012 Hospital Encounter HX [facility] Chrissy De La Cruz, FABIANA, C.N.P., D. N.P. [address] [place] [address] (Wo rk) Social History Tobacco [...] How often do you attend restorationist or faith More than 4 time s [...] Comments Blood Pressure 130/69 08/08/2012 8:37 AM FIELD SEISMOLOGIST Pulse 88 08/08/2012 8:37 AM FIELD SEISMOLOGIST Temperature - - Respiratory Rate 16 08/08/2012 8:37 AM FIELD SEISMOLOGIST Oxygen Saturation - - Inhaled Oxygen Concentration - - Weight 91.8 kg (202 lb 6.1 oz) 08/08/2012 8:37 AM FIELD SEISMOLOGIST Height 156.5 cm (5' 1.61) 08/08/2012 8:37 AM FIELD SEISMOLOGIST Body Mass Index 37.48 08/08/2012 8:37 AM FIELD SEISMOLOGIST documented in this encounter Medications at Time [...] Cruz, D.N.P., C.N.P. - 08/08/2012 3:12 PM FIELD SEISMOLOGIST Ambulatory Patient Summary [address] [address] Visit Information Name: DAMIAN TILLMAN [facility] Number: [id number] Current Date: 08/08/2012 15:12:03 [...] Date Time Location Reason Provider 08/09/2012 08:00 [facility] PT/OT humerous FX Melisa Edgardo 08/09/2012 08:30 [facility] Mammo osteopenia 08/15/2012 08:45 [facility] PT/OT left sided facial injury Arabella Caro 09/03/2012 14:30 [facility] Clin Follow up Donavon REED, Cayetano Vela Your Goals/Additional instructions: Source: [facility] POWERCHART Document Id: [id number] D SEISMOLOGIST Miscellaneous - Chrissy De La Cruz, D.N.P., C.N.P. - 08/08/2012 3:12 PM FIELD SEISMOLOGIST Ambulatory Depart Summary [address] [place] [address] Visit Information Name: LAYNEDAMIAN Yani MEANS [facility] Number: [id number] Visit Date: 08/08/2012 15:12:03 [...] your provider for clarification. Additional Information: Source: [facility] POWERCHART Document Id: [id number] D SEISMOLOGIST Miscellaneous - Chrissy De La Cruz D.N.P., C.N.P. - 08/08/2012 3:06 PM FIELD SEISMOLOGIST Results Notification Document Contains Addenda Addendum by MADDIE AGOSTO LPN on 08 August 2012 15:56:52 FIELD SEISMOLOGIST Copy of labs sent to patient. From: CHRISSY DE LA CRUZ DNP, FNP To: MADDIE AGOSTO LPN Sent: 08/08/2012 15:06:06 FIELD SEISMOLOGIST ! Show up: 08/08/2012 21:06:06 UTC Subject: Results Notification Actions: Note to Nurse Source: [facility] POWERCHART Document Id: [id number] Electronically signed by Conversion, [facility] Lining Cleaner [id number] at 01/20/2017 3:57 PM CDT Miscellaneous - Chrissy De La Cruz D.N.P., C.N.P. - 08/08/2012 3:04 PM FIELD SEISMOLOGIST Results Notification Document Contains Addenda Addendum by MADDIE AGOSTO LPN on 08 August 2012 15:56:36 FIELD SEISMOLOGIST Copy mailed to patient. From: CHRISSY DE LA CRUZ DNP, DIVISION SUPERINTENDENT To: MADDIE AGOSTO LPN Sent: 08/08/2012 15:04:47 FIELD SEISMOLOGIST ! Show up: 08/08/2012 21:04:47 [facility] Subject: Results Notification Actions: Note to Nurse Source: [facility] POWERCHART Document Id: [id number] Electronically signed by Conversion, [facility] Lining Cleaner [id number] at 01/20/2017 3:57 PM CDT Miscellaneous - Donavan Alba L.P.NNaomi - 08/08/2012 8:37 AM CST Adult Treater Intake/History Adult Treater Intake/History Entered On: 08/08/2012 8:42 FIELD SEISMOLOGIST Performed On: 08/08/2012 8:37 FIELD SEISMOLOGIST by DONAVAN ALBA LPN Intake Chief Complaint : here for PE and establish as primary. Ankush done in [place] in 10/29, pap done in 2010 in [place]. hx of left shoulder pain. Check left [...] 37.48kg/m2 DONAVAN ALBA LPN - 08/08/2012 8:37 FIELD SEISMOLOGIST Subjective Pain Symptoms : Yes DONAVAN ALBA LPN - 08/08/2012 8:37 FIELD SEISMOLOGIST Pain Pain Assessment Grid Pain 1 Location : Shoulder Laterality : Left Intensity : 2 DONAVAN ALBA LPN - 08/08/2012 8:37 FIELD SEISMOLOGIST Dependent Habits Tobacco Use/Currently Using : No Exposure to Tobacco Smoke : Care provider denies smoking in home Smoking Status : Never smoker DONAVAN ALBA LPN - 08/08/2012 8:37 FIELD SEISMOLOGIST Tobacco Use Grid Last Use : never DONAVAN ALBA LPN - 08/08/2012 8:37 FIELD SEISMOLOGIST Alcohol Use : No DONAVAN ALBA LPN - 08/08/2012 8:37 FIELD SEISMOLOGIST Caffeine Use Grid Caffeine Use : None DONAVAN ALBA LPN - 08/08/2012 8:37 FIELD SEISMOLOGIST Recreational Drug Use Grid Drug Use : None DONAVAN ALBA LPN - 08/08/2012 8:37 FIELD SEISMOLOGIST Allergy Allergies (Active) Ceftin Estimated Onset Date: Unspecified ; Reactions: hives ; Created By: MADDIE AGOSTO LPN; Reaction Status: Active ; Category: Drug ; Substance: Ceftin ; Type: Allergy ; Updated By: MADDIE AGOSTO LPN; Reviewed Date: 08/08/2012 8:34 FIELD SEISMOLOGIST Source: [facility] POWERCHART Document Id: [id number] D SEISMOLOGIST Miscellaneous - Donavan Alba L.P.NNaomi - 08/08/2012 8:36 AM CST Meaningful Use Influenza Exclusion Meaningful Use Influenza Exclusion Entered On: 08/08/2012 8:36 FIELD SEISMOLOGIST Performed On: 08/08/2012 8:36 FIELD SEISMOLOGIST by ASLESON, DONAVAN J BAG VALVER Influenza Vaccine Exclusion Influenza Vaccine Exclusion : Patient declined DONAVAN ALBA LPN - 08/08/2012 8:36 FIELD SEISMOLOGIST Source: [facility] POWERCHART Document Id: [id number] D SEISMOLOGIST documented in this encounter Plan of Treatment Upcoming Encounters Date Type Specialty Care Team Description 07/05/2022 Appointment Radiology Post, Heath Del Real APRN, C.N.PNaomi [address] [place] [phone] (Wo rk) documented as of this encounter Procedures Procedure Name Priority Date/Time Associated Comments Diagnosis URINALYSIS, ROUTINE Routine 08/08/2012 9:44 AM Re sults for this FIELD SEISMOLOGIST procedure are i n the results section. URINE MICROSCOPIC Routine 08/08/2012 9:44 AM Resu lts for this FIELD SEISMOLOGIST procedure are i n the results section. LIPID PANEL, S Routine 08/08/2012 9:41 AM Results for this FIELD SEISMOLOGIST procedure are i n the results section. AUTOMATED Routine 08/08/2012 9:41 AM Results f or this DIFFERENTIAL, B FIELD SEISMOLOGIST procedure ar e in the results section. LIPOPROTEIN (A), S/P Routine 08/08/2012 9:41 AM R esults for this FIELD SEISMOLOGIST procedure are i n the results section. SEDIMENTATION RATE, B Routine 08/08/2012 9:41 AM Results for this FIELD SEISMOLOGIST procedure are i n the results section. CBC WITH DIFFERENTIAL, Routine 08/08/2012 9:41 AM Results for this B FIELD SEISMOLOGIST procedure are i n the results section. C-REACTIVE PROTEIN Routine 08/08/2012 9:41 AM Res ults for this (CRP), S/P FIELD SEISMOLOGIST procedure are i n the results section. THYROID-STIMULATING Routine 08/08/2012 9:41 AM Re sults for this HORMONE-SENSITIVE FIELD SEISMOLOGIST procedure are in (S-TSH) the results section. COMPREHENSIVE Routine 08/08/2012 9:41 AM Results for this METABOLIC PANEL, S/P FIELD SEISMOLOGIST procedu re are in the results section. documented in this encounter Results Urine Microscopic (08/08/2012 9:44 AM FIELD SEISMOLOGIST) [facility] Method Time Signature HXUr WBC 0-2 0 - 2 POWERCHART Red Blood Cell None Seen 0 - 2 POWERCHART Clump, Urine HXUr Bacteria Moderate POWERCHART HXUr Epithelial Many POWERCHART Comment: Squamous. [facility] 08/08/2012 10:09 Comment Specimen not suitable for culture. [facility] 08/08/2012 10:10 POWERCHART Specimen Anatomical Collection Method Collection Time Receive d Time (Source) Location / / Volume Laterality Urine 08/08/2012 9:44 AM 2 9:44 FIELD SEISMOLOGIST AM FIELD SEISMOLOGIST Chrissy De La Cruz APRN, C.N.P., D.N.P. LAB URINE ORDE GURMEET Performing Organization Address City/[facility]/ZIP Code Phon e Number POWERCHART Urinalysis, Routine (08/08/2012 9:44 AM FIELD SEISMOLOGIST) [facility] gist Method Time Signature HXUr Color Yellow POWERCHART Appearance Slightly POWERCHART Cloudy Glucose Negative POWERCHART HXBILIRUBIN Negative POWERCHART Ketones, QL(U) Negative POWERCHART Specific 1.020 1.000 - POWERCHART [place], POCT, U 1.030 pH, POCT, Urine 7.0 5.0 - 8.0 POWERCHART Protein, Ur, Dip Negative POWERCHART Urobilinogen 0.2 POWERCHART HXNITRITE Negative POWERCHART HXBLOOD Negative POWERCHART Leukocyte Trace POWERCHART Esterase Source Clean Void POWERCHART Urine Specimen (Source) Anatomical Collection Method Collection Time Re ceived Time Location / / Volume Laterality Urine 08/08/2012 9:44 AM FIELD SEISMOLOGIST Chrissy De La Cruz APRN, C.N.P., D.N.P. LAB URINE ORDTemitope LEVI Performing Organization Address [facility] Phon e Number POWERCHART Automated Differential (08/08/2012 9:41 AM FIELD SEISMOLOGIST) athologist Signature Neutro % 61.5 42.0 - POWERCHART 77.0 Lymphocytes % 28.2 23.0 - POWERCHART 44.0 HX [place] % 6.5 2.0 - 18.0 POWERCHART HX [...] / Volume Laterality Blood 08/08/2012 9:41 AM 2 9:41 FIELD SEISMOLOGIST AM FIELD SEISMOLOGIST Chrissy De La Cruz APRN C.N.P., D.N.P. LAB BLOOD ADD- ON Performing Organization Address City/[facility] Code Phon e Number POWERCHART Sedimentation Rate (08/08/2012 9:41 AM FIELD SEISMOLOGIST) Analysis Performed At Patho logist Time Signature Sedimentation 29 0 - 30 POWERCHART Rate, B MMHR Specimen (Source) Anatomical Collection Method Collection Time Re ceived Time Location / / Volume Laterality Blood 08/08/2012 9:41 AM FIELD SEISMOLOGIST Chrissy De La Cruz APRN C.N.P., D.N.P. LAB BLOOD ADD- ON Performing Organization Address [facility] Phon e Number POWERCHART CBC with Differential (08/08/2012 9:41 AM FIELD SEISMOLOGIST) P athologist Signature Leukocytes 5.2 3.4 - 10.5 POWERCHART X109L Erythrocytes 4.68 3.90 - POWERCHART 5.03 T0263D Hemoglobin 13.7 12.0 - POWERCHART 15.5 GDL Hematocrit 41.3 34.9 - POWERCHART 44.5 MCV 88.2 82.0 - POWERCHART 98.0 FL HX RDW 13.5 11.9 - POWERCHART 15.5 Platelet Count 197 150 - 450 POWERCHART X109L HXDifferential? Auto POWERCHART Specimen (Source) Anatomical Collection Method Collection Time Re ceived Time Location / / Volume Laterality Blood 08/08/2012 9:41 AM FIELD SEISMOLOGIST Chrissy De La Cruz APRN, C.N.P., D.N.P. LAB BLOOD ADD- ON Performing Organization Address [facility] Phon e Number POWERCHART CRP (C-Reactive Protein) (08/08/2012 9:41 AM FIELD SEISMOLOGIST) P athologist Signature C-Reactive 0.48 0.00 - 0.80 POWERCHART Protein (CRP), MGDL S Specimen (Source) Anatomical Collection Method Collection Time Re ceived Time Location / / Volume Laterality Blood 08/08/2012 9:41 AM FIELD SEISMOLOGIST Sunday Sparks APRN.N.P., D.N.P. LAB BLOOD ADD- ON Performing Organization Address City/[facility]/ZIP Code Phon e Number POWERCHART Thyroid-Stimulating Hormone-Sensitive (s-TSH) (08/08/2012 9:41 AM FIELD SEISMOLOGIST) athologist Signature TSH 1.83 0.30 - 5.00 POWERCHART (Thyrotropin) MCIUML Specimen (Source) Anatomical Collection Method Collection Time Re ceived Time Location / / Volume Laterality Blood 08/08/2012 9:41 AM FIELD SEISMOLOGIST Sunday Sparks APRN.N.P., D.N.P. LAB BLOOD ADD- ON Performing Organization Address City/[facility] Phon e Number POWERCHART Lipoprotein (a) (08/08/2012 9:41 AM FIELD SEISMOLOGIST) athologist Signature Lp(a) 5 <=30 MGDL POWERCHART Cholesterol Comment: Test Performed by: [place] [address] Peace Officer: Bong tapia III, M.D. Specimen (Source) Anatomical Collection Method Collection Time Re ceived Time Location / / Volume Laterality Blood 08/08/2012 9:41 AM FIELD SEISMOLOGIST Chrissy De La Cruz APRN C.N.P., D.N.P. LAB BLOOD ADD- ON Performing Organization Address City/State/ZIP Code Phon e Number POWERCHART (ABNORMAL) Lipid Panel (08/08/2012 9:41 AM FIELD SEISMOLOGIST) athologist Signature Cholesterol, 248 (H) 0 - [...] / Volume Laterality Blood 08/08/2012 9:41 AM FIELD SEISMOLOGIST Chrissy De La Cruz APRN, C.N.P., D.N.P. LAB BLOOD ADD- ON Performing Organization Address City/State/ZIP Code Phon e Number POWERCHART (ABNORMAL) CMP (Comprehensive Metabolic Panel) (08/08/2012 9:41 AM FIELD SEISMOLOGIST) [facility] gist Method Time Signature Alanine 31 15 [...] POWERCHART MMOLL HXeGFR (MDRD) >60 >=60 POWERCHART [id number] 2 Comment: A GFR of <60 mL/min is indicative of chr onic kidney disease. (MDRD calculation valid on patients 18 - 70 years.) eGFR Black/ >60 >=60 [id number] POWERCHART Bilirubin, Total, S 0.4 0.1 - 1.0 MGDL POWER CHART Total Protein, S 7.6 6.3 - 7.9 GDL POWERCHAR T Glucose 87 70 - 139 MGDL POWERCHART Specimen (Source) Anatomical Collection Method Collection Time Re ceived Time Location / / Volume Laterality Blood 08/08/2012 9:41 AM FIELD SEISMOLOGIST Chrissy De La Cruz APRN, C.N.P., D.N.P. LAB BLOOD ADD- ON Performing Organization Address City/State/ZIP Code Phon e Number POWERCHART documented in this encounter Visit Diagnoses Not on filedocumented in this encounter
--- OUTSIDE RECORDS SUMMARY | 2022-06-20 12:47 | XMS_ITS | Encounter Summary ---
:1955 Author Organization [facility] Address [address] [place] [address] Care Team Providers Name Role Phone Unavailable Primary Care Provider Unavailable Encounter Details Date Type Department Care Team Description 01/29/2013 Hospital Encounter HX NO MAPPING Yulissa Finn APRN, C.N.P. [address] [place], [place] [phone] (Wo rk) Social History [...] How often do you attend yazdanism or anabaptist More than 4 time s [...] Heath Del Real APRN, C.N.P. [address] [place], [place] [phone] (Wo rk) documented as of this encounter Visit Diagnoses Not on filedocumented in this encounter
--- OUTSIDE RECORDS SUMMARY | 2022-06-20 12:47 | XMS_ITS | Encounter Summary ---
:1955 Author Organization [facility] Address [address] [place] [address] Care Team Providers Name Role Phone Unavailable Primary Care Provider Unavailable Encounter Details Date Type Department Care Team Description 01/29/2013 Hospital Encounter HX NO MAPPING Yulissa Finn APRN, C.N.P. [address] [place], [place] [phone] (Wo rk) Social History [...] How often do you attend jainism or scientology More than 4 time s [...] Heath Del Real APRN, C.N.P. [address] [place], [place] [phone] (Wo rk) documented as of this encounter Visit Diagnoses Not on filedocumented in this encounter
--- OUTSIDE RECORDS SUMMARY | 2022-06-20 12:47 | XMS_ITS | Encounter Summary ---
:1955 Author Organization [facility] Address [address] [place] [address] Care Team Providers Name Role Phone Unavailable Primary Care Provider Unavailable Encounter Details Date Type Department Care Team Description 01/29/2013 [facility] Solis Caicedo O.D. Social History Tobacco Use [...] How often do you attend episcopalian or sabianist More than 4 time s [...] Michaels O.D. - 01/29/2013 10:00 AM CDT [id number] Pain Questionnaire: Is your visit today because [...] Current RX: OTC READERS +1.75 Sphere Cylinder Brea Add Prism Right Eye +1.75 Left Eye [...] Left Eye HPI ROS Physical Exam [facility] Document Id: [id number] Electronically signed by Conversion, [facility] [place] Stayer Machine Operator [id number] at 01/15/2017 6:09 PM CDT Solis Michaels O.D. - 01/29/2013 10:00 AM CDT [id number] CLINIC ENCOUNTER SLIT LAMP EXAMINATION: Shows angles [...] want glasses for distance. Is satisfied with mxom-uiz-kldnzab readers PLAN: At her request, no Rx for glasses given. She will continue to use +2.00 kixc-icy-dlbdass readers. Reevaluate with full exam in two years, sooner if needed. Hang Alfredo//law cc: Source: [facility] RWMCHXTRANSXRTFSYS Document Id: [id number] Electronically signed by Conversion, Shashank [place] Stayer Machine Operator [id number] at 01/15/2017 6:09 PM CDT documented in this encounter Plan of Treatment Upcoming Encounters Date Type Specialty Care Team Description 07/05/2022 Appointment Radiology Post, Heath Del Real APRN, C.N.P. [address] [place] [phone] (Wo rk) documented as of this encounter Visit Diagnoses Not on filedocumented in this encounter
--- OUTSIDE RECORDS SUMMARY | 2022-06-20 12:47 | XMS_ITS | Encounter Summary ---
:1955 Author Organization [facility] Address [address] [place] [address] Care Team Providers Name Role Phone Unavailable Primary Care Provider Unavailable Encounter Details Date Type Department Care Team Description 07/25/2012 - Hospital En[facility] Cayetano Raphael, 11/28/2012 PNaomiAGillianC. Social History Tobacco Use Types Packs/Day Years [...] How often do you attend muslim or episcopalian More than 4 time s [...] Discharge OT Discharge Entered On: 09/25/2012 8:06 HIDE HOUSE SUPERVISOR Performed On: 09/25/2012 7:58 HIDE HOUSE SUPERVISOR by MAYTE EDDY/Yani Goals Review OT Goals Reviewed : Goals reviewed and unchanged OT Discharge Status : Pt was seen for evaluation only on 08-15-12. Pt Dx of facial injury with paralysis. Onset date 06-27-12. Pt instructed on facial exercises and provided with handouts from [place] on facial exercises, sensory desensitization and home program to do. Pt showed good understanding. Did not reschedule further treatment as no further concerns. D/C at this time. MAYTE EDDY/Yani - 09/25/2012 7:58 HIDE HOUSE SUPERVISOR General Info Pain Symptoms : No MAYTE EDDY/Yani - 09/25/2012 7:58 HIDE HOUSE SUPERVISOR OT Charge Charges - OT : Charges Not Appropriate MAYTE EDDY/Yani - 09/25/2012 7:58 HIDE HOUSE SUPERVISOR Source: [facility] POWERCHART Document Id: [id number] Bolivar Cox P.T. - 08/27/2012 12:00 AM CST [id number] CHIEF COMPLAINT/REASON FOR VISIT Patient comes in [...] BOLIVAR COX On: 09/02/2012 02:50 PM Source: [facility] MHSDOLBEYNONRADSYS Document Id: [id number] Bolivar Cottrell P.T. - 08/22/2012 12:00 AM CST [id number] IMPRESSION/REPORT/PLAN Colleen comes in today without a [...] BOLIVAR COX On: 08/27/2012 11:15 AM Source: [facility] MHSDOLBEYNONRADSYS Document Id: [id number] HOUSE SUPERVISOR Bolivar Cox P.T. - 08/19/2012 12:00 AM CST [id number] IMPRESSION/REPORT/PLAN Colleen comes in today without significant [...] BOLIVAR COX On: 08/27/2012 11:17 AM [facility]: [facility]OL[facility]RAD[facility] Document Id: [id number] Bolivar Cottrell PElsy. - 08/09/2012 12:00 AM CST [id number] IMPRESSION/REPORT/PLAN Colleen comes in after having seen the audiovisual production specialist yesterday. It is noted that we [...] BOLIVAR COX On: 08/27/2012 11:18 AM Source: [facility] MHSDOLBEYNONRADSYS Document Id: [id number] Bolivar Cottrell P.T. - 08/05/2012 12:00 AM CST [id number] IMPRESSION/REPORT/PLAN Colleen comes in today without significant [...] BOLIVAR COX On: 08/10/2012 11:24 AM Source: [facility] CureeoCALOmnia MediaGisela Document Id: [id number] HOUSE SUPERVISOR Bolivar Cox P.T. - 08/01/2012 12:00 AM CST [id number] IMPRESSION/REPORT/PLAN Colleen comes in today stating that [...] BOLIVAR COX On: 08/10/2012 11:27 AM Source: [facility] Curee[employer]CAL[employer] MediaGisela Document Id: [id number] HOUSE SUPERVISOR Bolivar Cox P.T. - 07/29/2012 12:00 AM CST [id number] IMPRESSION/REPORT/PLAN Colleen comes in today stating that [...] BOLIVAR COX On: 07/31/2012 07:40 AM Source: [facility] MHSDOLBEYNONRADSYS Document Id: [id number] HOUSE SUPERVISOR documented in this encounter Consult Notes Conversion, Historical Provider Ser - 08/15/2012 12:00 AM CST [id number] REFERRING PROVIDER: Cayetano Raphael P.A.-C. CHIEF COMPLAINT/REASON [...] much better. She is right hand dominant. [place] no concerns to address that at this [...] Ch D.N.PNaomi/F.N.P Electronically Signed By: MAYTE EDDY Nasima OTR/L On: 09/03/2012 10:44 AM Source: [facility] MHSDOLBEYNONRADSYS Document Id: [id number] Bolivar Cox P.T. - 07/25/2012 12:00 AM CST [id number] REFERRING PHYSICIAN LANIE Ch. CHIEF COMPLAINT/REASON FOR [...] BOLIVAR COX On: 07/31/2012 07:48 AM Source: [facility] MHSDOLBEYNONRADSYS Document Id: [id number] HOUSE SUPERVISOR documented in this encounter Miscellaneous Notes Miscellaneous - Chrissy De La Cruz D.N.P., C.N.P. - 08/26/2012 11:30 AM HIDE HOUSE SUPERVISOR General Message Document Contains Addenda Addendum by MADDIE AGOSTO LPN on 26 August 2012 16:24:07 HIDE HOUSE SUPERVISOR Spoke with Colleen cervantes. States, understanding. From: CHRISSY DE LA CRUZ DNP, INSTALLER SOFT TOP To: MADDIE AGOSTO LPN; Sent: 08/26/2012 11:30:50 HIDE HOUSE SUPERVISOR Subject: General Message Please call Colleen and let her know I got her records and went through everything. It looks like herbone density results from us are just a little bit better than when they were last done. Still, advise to have this rechecked in 2- 3 years. Please let her know this, thank you. Chrissy Source: [facility] POWERCHART Document Id: [id number] Electronically signed by Conversion, [facility] Technical Stenographer [id number] at 01/21/2017 1:15 AM CDT documented in this encounter Plan of Treatment Upcoming Encounters Date Type Specialty Care Team Description 07/05/2022 Appointment Radiology Post, Heath Del Real APRN, C.N.P. [address] [place] [phone] (Wo rk) documented as of this encounter Visit Diagnoses Not on filedocumented in this encounter
--- OUTSIDE RECORDS SUMMARY | 2022-06-20 12:47 | XMS_ITS | Encounter Summary ---
:1955 Author Organization [facility] Address [address] [place] [address] Care Team Providers Name Role Phone Unavailable Primary Care Provider Unavailable Encounter Details Date Type Department Care Team Description 01/29/2013 Hospital Encounter HX [facility] XRAY Provider, Histori reilly Social History [...] How often do you attend alevism or adventism More than 4 time s [...] calcium Take 2 tablets by 0 05/26/2002 02/ 022 carbonate-vitamin D3 500 mouth daily. mg(1,250mg) -125 unit per tablet documented as of this encounter Plan of Treatment Upcoming Encounters Date Type Specialty Care Team Description 07/05/2022 Appointment Radiology Post, Heath Del Real APRN, C.N.P. [address] [place], [place] [phone] (Wo rk) documented as of this encounter Visit Diagnoses Not on filedocumented in this encounter
--- OUTSIDE RECORDS SUMMARY | 2022-06-20 12:47 | XMS_ITS | Encounter Summary ---
:1955 Author Organization [facility] Address [address] [place] [address] Care Team Providers Name Role Phone Unavailable [...] How often do you attend mu-ism or presybeterian More than 4 time s [...] Post, Heath Del Real APRN, C.N.P. [address] [place] [phone] (Wo rk) documented as of this encounter Visit Diagnoses Not on filedocumented in this encounter
--- OUTSIDE RECORDS SUMMARY | 2022-06-20 12:47 | XMS_ITS | Encounter Summary ---
:1955 Author Organization [facility] Address [address] [place] [address] Care Team Providers Name Role Phone Unavailable [...] How often do you attend moravian or anabaptist More than 4 time s [...] Comments Blood Pressure 130/86 07/05/2012 8:48 AM RELASTER Pulse 68 07/05/2012 8:48 AM RELASTER Temperature - - Respiratory Rate 16 07/05/2012 8:48 AM RELASTER Oxygen Saturation - - Inhaled Oxygen Concentration [...] Carlos Lawton - 07/05/2012 8:29 AM CST [id number] IMPRESSION/REPORT/PLAN Ms. Tillman is a 57-year-old female [...] acceptable with only mild displacement. Carlos Lawton P.A.-C./[facility] Electronically Signed By: CARLOS LAWTON PA-C On: 02/04/2013 08:19 AM Source: [facility] MHSDOLBEYNONRADSYS Document Id: [id number] documented in this encounter Miscellaneous Notes Miscellaneous - Carlos Lawton - 07/05/2012 9:21 AM CST Ambulatory Patient Summary [address] [address] Visit Information Name: COLLEEN TILLMAN [facility] Number: [id number] Current Date: 07/05/2012 09:21:36 Physicians [...] Carlos Lawton PA-C Your Goals/Additional instructions: Source: [facility] POWERCHART Document Id: [id number] STER Miscellaneous - Carlos Lawton - 07/05/2012 9:21 AM CST Ambulatory Depart Summary [facility] [address] [address] Visit Information Name: COLLEEN TILLMAN [facility] Number: [id number] Visit Date: 07/05/2012 09:21:35 Attending [...] your provider for clarification. Additional Information: Source: [facility] POWERCHART Document Id: [id number] STER Miscellaneous - Rose Ziegler R.N. - 07/05/2012 8:48 AM CST Adult Patrol Man Intake/History Adult Patrol Man Intake/History Entered On: 07/05/2012 8:51 RELASTER Performed On: 07/05/2012 8:48 RELASTER by ROSE ZIEGLER administrative office clerk Chief Complaint : f/u left humerus fx, feels good Temperature Core : 36.8C(Converted to: 98.2DegF) Peripheral Pulse Rate : 68/min Respiratory Rate : 16/min Heart Rhythm : Regular Systolic Blood Pressure : 130mmHg Diastolic Blood Pressure : 86mmHg NIBP Mean : 101mmHg BP Location : Right upper extremity Blood Pressure Cuff Size : Regular ROSE ZIEGLER RN - 07/05/2012 8:48 RELASTER General Info Information Given By : Patient Preferred Communication Mode : Verbal Languages : Serbian ROSE ZIEGLER RN - 07/05/2012 8:48 RELASTER Subjective Pain Symptoms : No ROSE ZIEGLER RN - 07/05/2012 8:48 RELASTER Dependent Habits Tobacco Use/Currently Using : No Exposure to Tobacco Smoke : Care provider denies smoking in home Smoking Status : Never smoker ROSE ZIEGLER RN - 07/05/2012 8:48 RELASTER Tobacco Use Grid Last Use : never ROSE ZIEGLER RN - 07/05/2012 8:48 RELASTER Caffeine Use Grid Caffeine Use : None ROSE ZIEGLER RN - 07/05/2012 8:48 RELASTER Recreational Drug Use Grid Drug Use : None ROSE ZIEGLER RN - 07/05/2012 8:48 RELASTER Allergy Allergies (Active) Ceftin Estimated Onset Date: Unspecified ; Reactions: hives ; Created By: MADDIE AGOSTO LPN; Reaction Status: Active ; Category: Drug ; Substance: Ceftin ; Type: Allergy ; Updated By: MADDIE AGOSTO LPN; Reviewed Date: 07/05/2012 8:47 RELASTER Source: [facility] POWERCHART Document Id: [id number] STER documented in this encounter Plan of Treatment Upcoming Encounters Date Type Specialty Care Team Description 07/05/2022 Appointment Radiology Post, Heath Del Real APRN, C.N.P. [address] [place] [address] [phone] (Wo rk) documented as of this encounter Visit Diagnoses Not on filedocumented in this encounter
--- OUTSIDE RECORDS SUMMARY | 2022-06-20 12:47 | XMS_ITS | Encounter Summary ---
:1955 Author Organization [facility] Address [address] [place] [address] Care Team Providers Name Role Phone Unavailable Primary Care Provider Unavailable Reason for Referral Outpatient (Routine) - Closed Specialty Diagnoses / Procedures Referred By Contact Refer red To Contact Emergency Medicine Diagnoses Colic Biliary Augie Berry M.D. [facility] Region [address] [place] [phone] Referral ID Status Reason Start Date Expiration Date Visits Requ ested Visits Authorized [id number] Closed 08/14/2017 02/10/2018 1 1 MANAGER Reason for Visit Reason Comments Shoulder Pain Auth/Cert Specialty Diagnoses / Procedures Referred By Contact Refer red To Contact Diagnoses Calculus of bile duct without cholangitis or cholecystitis with obstruction Calculus of bile duct without cholangitis or cholecystitis with obstruction Procedures GA CHOLECYSTECTOMY W CHOLANGIOGR Gallbladder removal Referral ID Status Reason Start Date Expiration Date Visits Requ ested Visits Authorized [id number] 1 1 Encounter Details Date Type Department Care Team Description 08/13/2017 - Emergency [place] [facility] Augie Berry, Colic Biliary (Primary 08/14/2017 Department M.Kristina Dx) [address] [place] [address] [phone] Social History Tobacco Use Types Packs/Day [...] How often do you attend episcopalian or jew More than 4 time s [...] Comments Blood Pressure 136/66 08/14/2017 1:45 AM BID MANAGER Pulse 91 08/14/2017 2:00 AM BID MANAGER Temperature 36.5 ??C (97.7 ??F) 08/13/2017 11:44 PM BID MANAGER Respiratory Rate 16 08/14/2017 1:00 AM BID MANAGER Oxygen Saturation 98% 08/14/2017 2:00 AM BID MANAGER Inhaled Oxygen Concentration - - Weight 97.8 kg (215 lb 9.8 oz) 08/13/2017 11:43 PM BID MANAGER Height 157.5 cm (5' 2) 08/13/2017 11:43 PM BID MANAGER Body Mass Index 39.44 08/13/2017 11:43 PM BID MANAGER documented in this encounter Discharge Instructions Discharge InstructionsAugie Berry M.D. - 08/14/2017 1:59 AM CST [place], low fat diet. Return for gallbladder ultrasound in AM today. MANAGER AttachmentsThe following attachments cannot be sent through Care Everywhere. Cholelithiasis (Lao)documented in this encounter Medications at Time of [...] D3) 2,000 mouth daily. Unit capsule omega 8-mel-ktc-fish oil Take 1 capsule by 0 10/1910/03/2021 [...] 20 (!) 172/80 100 % Pain Score 12/26/17 0008 10 - Worst possible pain PHYSICAL [...] 209 Colic Biliary Augie Berry M.D. 08/14/17218 Lora Ramirez R.N. - 08/13/2017 11:47 PM CST Pt reports increased pain after eating for past two days. Pt states she has family hx of gallbladderissues and pt denies abd. Surgeries. Angie was helpful yesterday, but pt not finding relief tonight. Lora Skinner R.N. 08/13/17 [id number] MANAGER documented in this encounter Plan of Treatment Upcoming Encounters Date Type Specialty Care Team Description 07/05/2022 Appointment Radiology Post, Haeth Del Real APRN, C.N.P. [address] [place] [address] [phone] (Wo [phone]) Scheduled Referrals Name Type Priority Associated Diagnoses Order S chedule Post ED visit Outpatient Referral Routine Colic Biliary Expect ed: 08/14/2017 (Approximate), Expires: 2019 documented as of this encounter Procedures Procedure Name Priority Date/Time Associated Comments Diagnosis CT CHEST ANGIOGRAM RAD - Semiurgent 08/14/2017 1:25 Re sults for WITH IV CONTRAST (Fast; most ED AM BID MANAGER this proc edure patients; some are in the inpatients) results section. ECG Routine 08/14/2017 12:16 Results for AM BID MANAGER this procedure are in the results section. HEPATIC FUNCTION STAT 08/14/2017 12:05 Results for PANEL, S AM BID MANAGER this procedure are in the results section. NT-PRO B-TYPE STAT 08/14/2017 12:05 Results fo r NATRIURETIC PEPTIDE AM BID MANAGER this pro cedure (BNP), S are in the results section. ACTIVATED PARTIAL STAT 08/14/2017 12:05 Result s for THROMBOPLASTIN TIME AM BID MANAGER this pro cedure (APTT), P are in the results section. PROTHROMBIN TIME STAT 08/14/2017 12:05 Results for (PT), P AM BID MANAGER this procedure are in the results section. D-DIMER, P STAT 08/14/2017 12:05 Results for AM BID MANAGER this procedure are in the results section. TROPONIN T, 5TH GEN, STAT 08/14/2017 12:05 Res ults for P AM BID MANAGER this procedure are in the results section. LIPASE, S/P STAT 08/14/2017 12:05 Results for AM BID MANAGER this procedure are in the results section. AMYLASE, TOT, S STAT 08/14/2017 12:05 Results for AM BID MANAGER this procedure are in the results section. BASIC METABOLIC STAT 08/14/2017 12:05 Results for PANEL, S/P AM BID MANAGER this procedure are in the results section. CBC WITH STAT 08/14/2017 12:04 Results for DIFFERENTIAL, B AM BID MANAGER this procedu re are in the results section. IRIS MICROSCOPIC, U STAT 08/14/2017 12:02 Resu lts for AM BID MANAGER this procedure are in the results section. URINALYSIS WITH STAT 08/14/2017 12:02 Results for MICROSCOPIC IF AM BID MANAGER this procedur e INDICATED, U are in the results section. documented in this encounter Results CT Chest Angiogram with IV Contrast (08/14/2017 1:25 AM BID MANAGER) Anatomical Region Laterality Modality Chest N/A Computed Tomography Specimen (Source) Anatomical Collection Method Collection Time Re ceived Time Location / / Volume Laterality 08/14/2017 8:03 AM BID MANAGER Impressions 08/14/2017 8:15 AM BID MANAGER IMPRESSION: 1. ??Somewhat limited evaluation due to [...] performed in 2010. Narrative 08/14/2017 8:15 AM BID MANAGER EXAM: CT CHEST ANGIOGRAM WITH IV CONTRAST [...] PROCEDURES ECG 12 Lead (08/14/2017 12:16 AM BID MANAGER) Patholo gist Method Time Signature Ventricular 65 BPM MUSE Rate ECG/Min GA Interval 150 ms MUSE QRSD Interval 70 ms MUSE QT Interval 394 ms MUSE QTC Interval 409 ms MUSE P Carney 55 degrees MUSE R Carney 74 degrees MUSE T Wave Carney 60 degrees MUSE Clinical Normal sinus rhythm MUSE Diagnosis Left atrial enlargement Otherwise normal ECG No previous ECGs available Specimen Anatomical Collection Method Collection Time Receive d Time (Source) Location / / Volume Laterality 08/14/2017 12:16 08/14/2017 5:14 AM BID MANAGER AM BID MANAGER Narrative This result has an attachment that is no t available. Augie Berry M.D. ECG ORDERABLES Performing Organization Address City/State/ZIP Code Phon e Number MUSE MUSE NA APTT (Activated Partial Thromboplastin Time) (08/14/2017 12:05 AM BID MANAGER) P athologist Signature APTT, P 33.7 23.7 - 36.1 08/14/2017 [facility] sec 12:34 AM [facility] Specimen Anatomical Collection Method Collection Time Receive d Time (Source) Location / / Volume Laterality Blood (Blood, 08/14/2017 12:05 08/14/2017 Venous) AM BID MANAGER 12:15 AM BID MANAGER Augie Berry M.D. LAB BLOOD ADD-ON Performing Organization Address City/State/ZIP Code Phon e Number [facility] [place] [address] [facility] [facility] PT (Prothrombin Time) with INR (08/14/2017 12:05 AM BID MANAGER) P athologist Signature Prothrombin 9.4 8.8 - 11.9 08/14/2017 [facility] Time, P sec 12:33 AM [facility] [employer] [facility] INR 0.9 0.9 - 1.2 08/14/2017 [facility] 12:33 AM [facility] [employer] LAB Comment: Standard intensity warfarin therapeutic range: 2.0 to 3.0 High intensity warfarin therapeutic rang e: 2.5 to 3.5 Specimen Anatomical Collection Method Collection Time Receive d Time (Source) Location / / Volume Laterality Blood (Blood, 08/14/2017 12:05 08/14/2017 Venous) AM BID MANAGER 12:15 AM BID MANAGER Augie Berry M.D. LAB BLOOD ADD-ON Performing Organization Address City/State/ZIP Code Phon e Number [address] [place] [address] [facility] (ABNORMAL) NT-Pro B-Type Natriuretic Peptide (BNP) (08/14/2017 12:05 AM BID MANAGER) athologist Signature NT-Pro BNP 185 (H) <=183 pg/mL 08/14/2017 [facility] 12:46 AM BID MANAGER [employer] [facility] Comment: NT-proBNP values less than 300 [...] supplements. ??If the result does not ma h clinical observations, repeat testing after patient refrains fr om the use of supplements for at least 12 hours. Specimen Anatomical Collection Method Collection Time Receive d Time (Source) Location / / Volume Laterality Blood (Blood, 08/14/2017 12:05 08/14/2017 Venous) AM BID MANAGER 12:15 AM BID MANAGER Augie Berry M.D. LAB BLOOD ADD-ON Performing Organization Address City/[facility] Code Phon e Number [facility] [address] [facility] [place] [address] [facility] (ABNORMAL) D-Dimer (08/14/2017 12:05 AM BID MANAGER) P athologist Signature D-Dimer, P 1.76 (H) <0.50 08/14/2017 [facility] mcg/mL FEU 12:36 AM [facility] Comment: ----ADDITIONAL INFORMATION---- Results of this [...] Blood (Blood, 08/14/2017 12:05 08/14/2017 Venous) AM BID MANAGER 12:15 AM BID MANAGER Augie Berry M.D. LAB BLOOD ADD-ON Performing Organization Address City/[facility]/ZIP [facility] Phon e Number [facility] [address] [place] [address] [facility] [place] [address] [facility] Troponin T (08/14/2017 12:05 AM BID MANAGER) P athologist Signature Troponin T, S <0.01 <0.01 ng/mL 08/14/2017 [facility] 12:39 AM [facility] Comment: Biotin has been identified by the megan pat as a potential interfering substance. ??Higher concentr ations of biotin may be found in multivitamins, hair/nail supple ments, and workout supplements. ??If the result does not ma [facility] clinical observations, repeat testing after patient refrains fr om the use of supplements for at least 12 hours. Specimen Anatomical Collection Method Collection Time Receive d Time (Source) Location / / Volume Laterality Blood (Blood, 08/14/2017 12:05 08/14/2017 Venous) AM BID MANAGER 12:15 AM [facility] Augie Berry M.D. LAB BLOOD ADD-ON Performing Organization Address City/State/ZIP Code Phon e Number [facility] [address] [place] [address] [facility] Hepatic Function Panel (08/14/2017 12:05 AM [facility]) Patholo gist Method Time Signature Bilirubin, Total, S 0.4 <=1.2 08/14/2017 [facility] mg/dL 12:43 AM [facility] Bilirubin, Direct, S <0.2 0.0 - 0.3 08/14/2017 [facility] mg/dL 12:46 AM [facility] Aspartate 27 8 - 43 08/14/2017 [facility] Aminotransferase U/L 12:43 AM [facility] [employer] (AST), [facility] Alanine 34 7 - 45 08/14/2017 [facility] Aminotransferase U/L 12:43 AM [facility] [employer] (ALT), [facility] Alkaline 110 50 - 130 08/14/2017 [facility] Phosphatase, S U/L 12:43 AM [facility] Albumin, S 4.4 3.5 - 5.0 08/14/2017 [facility] g/dL 12:43 AM [facility] Protein, Total, S 7.6 6.3 - 7.9 08/14/2017 [facility] g/dL 12:43 AM [facility] Specimen Anatomical Collection Method Collection Time Receive d Time (Source) Location / / Volume Laterality Blood (Blood, 08/14/2017 12:05 08/14/2017 Venous) AM BID MANAGER 12:13 AM [facility] Augie Berry M.D. LAB BLOOD ADD-ON Performing Organization Address City/State/ZIP Code Phon e Number [facility] [address] [place] [address] [facility] (ABNORMAL) BMP (Basic Metabolic Panel) (08/14/2017 12:05 AM BID MANAGER) P athologist Signature Potassium, P 3.6 3.6 - 5.2 08/14/2017 [facility] mmol/L 12:43 AM [facility] Sodium, P 136 135 - 145 08/14/2017 [facility] mmol/L 12:43 AM [facility] Chloride, P 97 (L) 98 - 107 08/14/2017 [facility] mmol/L 12:43 AM [facility] Bicarbonate, P 25 22 - 29 08/14/2017 [facility] mmol/L 12:43 AM [facility] Anion Gap, P 14 7 - 15 08/14/2017 [facility] 12:43 AM [facility] BUN (Blood Urea 14 6 - 21 08/14/2017 [facility] Nitrogen), P mg/dL 12:43 AM [facility] Creatinine 0.64 0.59 - 08/14/2017 [facility] 1.04 mg/dL 12:43 AM [facility] eGFR-Black/Afri >90 >=60 08/14/2017 [facility] can [employer] mL/min/BSA 12:43 AM [facility] LAB Comment: ----ADDITIONAL INFORMATION---- Estimated GFR calculated using the 2009 CKD_EPI creatinine equation. eGFR Non-Black/ >90 >=60 mL/min/BSA 08/14/2017 12:43 AM [facility] [employer] [facility] Comment: ----ADDITIONAL INFORMATION---- Estimated GFR calculated using the 2009 CKD_EPI creatinine equation. Calcium, Total, P 8.7 (L) 8.9 - 10.1 mg/dL 08/14/2017 1 2:43 AM [facility] Glucose, P 127 70 - 140 mg/dL 08/14/2017 12:43 AM [employer] [facility] [employer] [facility] Specimen Anatomical Collection Method Collection Time Receive d Time (Source) Location / / Volume Laterality Blood (Blood, 08/14/2017 12:05 08/14/2017 Venous) AM BID MANAGER 12:13 AM BID MANAGER Augie Berry M.D. LAB BLOOD ADD-ON Performing Organization Address City/State/ZIP Code Phon e Number [facility] [address] [place] [address] [facility] Lipase (08/14/2017 12:05 AM BID MANAGER) P athologist Signature Lipase, P 48 13 - 60 U/L 08/14/2017 [facility] 12:43 AM [facility] Specimen Anatomical Collection Method Collection Time Receive d Time (Source) Location / / Volume Laterality Blood (Blood, 08/14/2017 12:05 08/14/2017 Venous) AM BID MANAGER 12:13 AM BID MANAGER Augie Berry M.D. LAB BLOOD ADD-ON Performing Organization Address City/State/ZIP Code Phon e Number [facility] [address] [place] [address] [facility] Amylase, Total (08/14/2017 12:05 AM BID MANAGER) P athologist Signature Amylase, Total, 72 26 - 102 08/14/2017 [facility] P U/L 12:[address] [facility] [employer] LAB Specimen Anatomical Collection Method Collection Time Receive d Time (Source) Location / / Volume Laterality Blood (Blood, 08/14/2017 12:05 08/14/2017 Venous) AM BID MANAGER 12:13 AM BID MANAGER Augie Berry M.D. LAB BLOOD ADD-ON Performing Organization Address City/State/ZIP Code Phon e Number [facility] [address] [place] [address] [facility] (ABNORMAL) CBC with Differential (08/14/2017 12:04 AM BID MANAGER) [facility] Method Time Signature Hemoglobin 13.3 11.6 - 08/14/2017 [facility] 15.0 g/dL 12:20 AM [facility] [employer] [facility] Hematocrit 39.1 35.5 - 08/14/2017 [facility] 44.9 % 12:20 AM [facility] [place] [facility] Erythrocytes 4.43 3.92 - 08/14/2017 [facility] 5.13 12:20 AM [facility] [employer] x10(12)/L SYSTEM- [facility] [place] [facility] MCV 88.3 78.2 - 08/14/2017 [facility] 97.9 fL 12:20 AM [facility] RBC Distrib Width 13.4 12.2 - 08/14/2017 [facility] 16.1 % 12:20 AM [facility] Platelet Count 191 157 - 371 08/14/2017 [facility] x10(9)/L 12:20 AM [facility] Leukocytes 10.3 (H) 3.4 - 9.6 08/14/2017 [facility] x10(9)/L 12:20 AM [facility] Neutrophils 7.65 (H) 1.56 - 08/14/2017 [facility] 6.45 12:20 AM [facility] [employer] x10(9)/L [facility] [place] [facility] Lymphocytes 1.98 0.95 - 08/14/2017 [facility] 3.07 12:20 AM [facility] [employer] x10(9)/L [facility] [place] [facility] Monocytes 0.50 0.26 - 08/14/2017 [facility] 0.81 12:20 AM [facility] [employer] x10(9)/L SYSTEM [facility] [place] [facility] Eosinophils 0.16 0.03 - 08/14/2017 [facility] 0.48 12:[address] [facility] x10(9)/L SYSTEM [facility] [place] [facility] Basophils 0.03 0.01 - 08/14/2017 [facility] 0.08 12:[address] [facility] x10(9)/L [facility] Specimen Anatomical Collection Method Collection Time Receive d Time (Source) Location / / Volume Laterality Blood (Blood, 08/14/2017 12:04 08/14/2017 Venous) AM BID MANAGER 12:13 AM BID MANAGER Augie Berry M.D. LAB BLOOD ADD-ON Performing Organization Address City/State/ZIP Code Phon e Number [facility] [address] [facility] [place] [address] [facility] Iris Microscopic, U (08/14/2017 12:02 AM BID MANAGER) athologist Signature White Blood 4-10 /hpf 08/14/2017 [facility] Cells 12:43 AM [facility] [employer] [place] [facility] Comment: ----REFERENCE VALUE---- Males: 0-3 Females: 0-10 Unknown: 0-10 Red Blood Cells Occ-2 0 - 2 /hpf 08/14/2017 12:[address] [facility] Squamous Epithelial Occ-3 /hpf 08/14/2017 12:[address] [facility] LAB Specimen Anatomical Collection Method Collection Time Receive d Time (Source) Location / / Volume Laterality Urine 08/14/2017 12:02 08/14/2017 AM BID MANAGER 12:12 AM [facility] Augie Berry M.D. LAB URINE ORDERABLES Performing Organization Address City/State/ZIP Code Phon e Number [facility] [address] [place] [address] [facility] (ABNORMAL) Urinalysis with Microscopic if Indicated Urine, Clean Catch (08/14/2017 12:02 AM BID MANAGER) athologist Signature Source Midstream 08/14/2017 [facility] 12:43 AM [facility] [employer] [facility] Clarity Clear Clear 08/14/2017 [facility] 12:43 AM [facility] [employer] [place] [facility] Color Yellow 08/14/2017 [facility] 12:43 AM [facility] [employer] [place] [facility] Comment: ----REFERENCE VALUE---- Colorless Yellow Odalys Blood Negative Negative 08/14/2017 12:[address] [facility] Nitrite Negative Negative 08/14/2017 12:[address] [facility] Leukocyte Esterase Small (A) Negative 08/14/2017 12:[address] [facility] LAB Protein, U Negative mg/dL 08/14/2017 12:43 AM [facility] [employer] LAB Comment: ----REFERENCE VALUE---- Negative Trace Glucose Negative Negative mg/dL 08/14/2017 12:43 AM [facility] Ketone Negative Negative mg/dL 08/14/2017 12:43 AM [facility] Bilirubin Negative Negative 08/14/2017 12:43 AM [facility] [place] [facility] pH 7.0 5.0 - 8.0 08/14/2017 12:43 AM [facility] [place] [facility] Specific Kim 1.014 1.001 - 1.035 08/14/2017 12:43 AM [facility] [place] [facility] Urobilinogen 0.2 0.2 - 1.0 08/14/2017 12:43 AM [facility] Specimen Anatomical Collection Method Collection Time Receive d Time (Source) Location / / Volume Laterality Urine (Urine, 08/14/2017 12:02 08/14/2017 Clean Catch) AM BID MANAGER 12:12 AM BID MANAGER Augie Berry M.D. LAB URINE ORDERABLES Performing Organization Address City/State/ZIP Code Phon e Number [facility] [address] [facility] [place] [address] [facility] documented in this encounter Visit Diagnoses Diagnosis Colic Biliary - Primary documented in this encounter Administered Medications Inactive Administered Medications - up to 3 most recent administrations Medication Order MAR Action Action Date Dose Rate Site HYDROmorphone injection 0.5 mg Given 08/14/2017 12:32 AM BID MANAGER 0.5 mg (for_DILAUDID) 0.5 mg, intravenous, Once, On e 08/14/17 at 0032, For 1 dose HYDROmorphone injection 0.5 mg (for_DILA UDID) Given 08/14/2017 1:57 AM BID MANAGER 0.5 mg 0.5 mg, intravenous, Once, On e 08/14/17 at 0156, For 1 dose iohexol 350 mg iodine/mL solution 125 mL Given 08/14/2017 1:03 A M BID MANAGER 125 mL (for_OMNIPAQUE) 125 mL, intravenous, Once in imaging, contrast, Starting on 08/14/17 at 0058, For 1 dose ketorolac injection 30 mg (for_TORADOL) Given 08/14/2017 12:14 AM BID MANAGER 30 mg 30 mg, intravenous, Once, On e 08/14/17 at 0012, For 1 dose, Adult IV push rate: Over 15 seconds. Peds IV push rate: Over 1 minute. 60 mg dose only for IM, not recommended for IV., Drug Monitoring Program: Pharmacist to adjust medication order based on comorbities and indication. sodium chloride 0.9 % injection 10 mL Given 08/14/2017 1:41 AM BID MANAGER 10 mL 10 mL, intravenous, As needed, line care, Starting on Sun08/14/17 at 0058 sodium chloride 0.9 % injection 50 mL Given 08/14/2017 1:00 AM BID MANAGER 50 mL 50 mL, intravenous, Once, On Sun08/14/17 at 0100, For 1 dose documented in this encounter Active and Recently Administered Medications Times are shown in BID MANAGER. Scheduled Medication Order 08/12/2017 08/13/2017 08/14/2017 HYDROmorphone [...] (COMPLE KARUNA) 0103 (Given - Provider: [place])(CT), [place].TNaomi(R)) 125 mL, intravenous, Once in imaging, co ntrast, Starting on Sun08/14/17 at 0058, For 1 dose sodium chloride 0.9 % injection 10 mL 0141 (Given - Provider: [place])(CT), [place].TNaomi(R)) 10 mL, intravenous, As needed, line care, Starting on Sun at 0058 documented in this encounter
--- OUTSIDE RECORDS SUMMARY | 2022-06-20 12:47 | XMS_ITS | Encounter Summary ---
:1955 Author Organization [facility] Address [address] [place] [address] Care Team Providers Name Role Phone Unavailable [...] How often do you attend mandaen or nondenominational More than 4 time s [...] Comments Blood Pressure 128/62 09/03/2012 2:40 PM DEBT MANAGEMENT COUNSELOR Pulse - - Temperature - - Respiratory Rate 20 09/03/2012 2:40 PM DEBT MANAGEMENT COUNSELOR Oxygen Saturation - - Inhaled Oxygen Concentration [...] Carlos Lawton - 09/03/2012 2:33 PM CST [id number] HISTORY OF PRESENT ILLNESS This pleasant 57-year-old [...] LAWTON PA-C On: 09/17/2012 02:53 PM Source: [facility] MHSDOLBEYNONRADSYS Document Id: [id number] MANAGEMENT COUNSELOR documented in this encounter Miscellaneous Notes Miscellaneous - Carlos Lawton - 09/03/2012 4:30 PM CST Ambulatory Patient Summary [facility] Specialty [address] [address] Visit Information Name: COLLEEN TILLMAN [facility] Number: [id number] Current Date: 09/03/2012 16:30:07 Physicians Attending Provider: CARLOS LAWTON PA-C Primary Care Provider: CHRISSY DE LA CRUZ [facility], RUBBER CHEMIST Your Medications Here is a list of [...] Carlos Lawton PA-C Your Goals/Additional instructions: Source: [facility] POWERCHART Document Id: [id number] MANAGEMENT COUNSELOR Miscellaneous - Carlos Lawton - 09/03/2012 4:30 PM CST Ambulatory Depart Summary [place] - Specialty [address] [address] Visit Information Name: COLLEEN TILLMAN [facility] Number: [id number] Visit Date: 09/03/2012 16:30:07 Attending Provider: CARLOS LAWTON PA-C Primary Care Provider: CHRISSY DE LA CRUZ DNP, RUBBER CHEMIST COLLEEN TILLMAN has been given the following [...] your provider for clarification. Additional Information: Source: [facility] POWERCHART Document Id: [id number] MANAGEMENT COUNSELOR Miscellaneous - Tung De Jesus R.N. - 09/03/2012 2:40 PM DEBT MANAGEMENT COUNSELOR Adult Oracle Distribution Consultant Intake/History Adult Oracle Distribution Consultant Intake/History Entered On: 09/03/2012 14:43 DEBT MANAGEMENT COUNSELOR Performed On: 09/03/2012 14:40 DEBT MANAGEMENT COUNSELOR by TUNG DE JESUS creative recruiter Chief Complaint : Here for follow up of left proximal humerus fracture. She is here to have her range of motion checked. Temperature Core : 36.5C(Converted to: 97.7DegF) Respiratory Rate : 20/min Systolic Blood Pressure : 128mmHg Diastolic Blood Pressure : 62mmHg NIBP Mean : 84mmHg TUNG DE JESUS RN - 09/03/2012 14:40 DEBT MANAGEMENT COUNSELOR General Info Information Given By : Patient Preferred Communication Mode : Verbal Languages : Libyan TUNG DE JESUS RN - 09/03/2012 14:40 DEBT MANAGEMENT COUNSELOR Subjective Pain Symptoms : No TUNG DE JESUS RN - 09/03/2012 14:40 DEBT MANAGEMENT COUNSELOR Dependent Habits Tobacco Use/Currently Using : No Tobacco Use/Last 12 months : No Exposure to Tobacco Smoke : Care provider denies smoking in home Smoking Status : Never smoker TUNG DE JESUS RN - 09/03/2012 14:40 DEBT MANAGEMENT COUNSELOR Tobacco Use Grid Type : Cigarettes Last Use : never TUNG DE JESUS RN - 09/03/2012 14:40 DEBT MANAGEMENT COUNSELOR Caffeine Use Grid Caffeine Use : None TUNG DE JESUS RN - 09/03/2012 14:40 DEBT MANAGEMENT COUNSELOR Recreational Drug Use Grid Drug Use : None TUNG DE JESUS RN - 09/03/2012 14:40 DEBT MANAGEMENT COUNSELOR Allergy Allergies (Active) Ceftin Estimated Onset Date: Unspecified ; Reactions: hives ; Created By: MADDIE AGOSTO LPN; Reaction Status: Active ; Category: Drug ; Substance: Ceftin ; Type: Allergy ; Updated By: MADDIE AGOSTO LPN; Reviewed Date: 09/03/2012 14:37 DEBT MANAGEMENT COUNSELOR Source: [facility] POWERCHART Document Id: [id number] MANAGEMENT COUNSELOR documented in this encounter Plan of Treatment Upcoming Encounters Date Type Specialty Care Team Description 07/05/2022 Appointment Radiology Post, Heath Del Real APRN, C.N.P. [address] [place] [address] [phone] (Wo rk) documented as of this encounter Visit Diagnoses Not on filedocumented in this encounter
--- OUTSIDE RECORDS SUMMARY | 2022-06-20 12:48 | XMS_ITS | Encounter Summary ---
:1955 Author Organization [facility] Address [address] [place] [address] Care Team Providers Name Role Phone Unavailable Primary Care Provider Unavailable Encounter Details Date Type Department Care Team Description 06/28/2012 Hospital Encounter HX NO MAPPING Gilma Gonzales M.D. [address] [place] [phone] (Wo rk) Social History Tobacco [...] How often do you attend anabaptism or congregational More than 4 time s [...] Comments Blood Pressure 130/80 06/28/2012 10:37 AM MUFFLER INSTALLER Pulse - - Temperature - - Respiratory [...] Gonzales M.D. - 06/28/2012 10:22 AM CST [id number] IMPRESSION/REPORT/PLAN Proximal humeral fracture with some mild [...] GONZALES MD On: 08/06/2012 03:38 PM Source: [facility] MHSDOLBEYNONRADSYS Document Id: [id number] LER INSTALLER documented in this encounter Miscellaneous Notes Miscellaneous - Te Gonzales M.D. - 06/28/2012 12:16 PM CST Ambulatory Patient Summary [address] [address] Visit Information Name: DAMIAN TILLMAN Current Date: [...] REED, Cayetano Vela Your Goals/Additional instructions: Source: [facility] POWERCHART Document Id: [id number] LER INSTALLER Miscellaneous - Te Gonzales M.D. - 06/28/2012 12:16 PM CST Ambulatory Depart Summary [address] [address] Visit Information Name: GINOJEROD DAMIAN Visit Date: [...] your provider for clarification. Additional Information: [facility] Document Id: [id number] LER INSTALLER Miscellaneous - Te Gonzales M.D. - 06/28/2012 11:33 AM CST Return to Work Status Return to Work Status Entered On: 06/28/2012 11:34 MUFFLER INSTALLER Performed On: 06/28/2012 11:33 MUFFLER INSTALLER by TE GONZALES MD Return to Work Status Employer : [employer] Date/Time of Injury : 06/27/2012 13:00 MUFFLER INSTALLER Work Status Comment : limit to no left handed work TE GONZALES MD - 06/28/2012 11:33 MUFFLER INSTALLER Source: [facility] [employer] K.K Document Id: [id number] LER INSTALLER Miscellaneous - Rose Ling R.N. - 06/28/2012 10:37 AM CST Adult Louver Mortiser Operator Intake/History Adult Louver Mortiser Operator Intake/History Entered On: 06/28/2012 10:40 MUFFLER INSTALLER Performed On: 06/28/2012 10:37 MUFFLER INSTALLER by ROSE LING water/wastewater project manager Chief Complaint : Pt fell and while [...] 97mmHg ROSE LING RN - 06/28/2012 10:37 MUFFLER INSTALLER General Info Information Given By : Patient Preferred Communication Mode : Verbal Languages : Azeri ROSE LING RN - 06/28/2012 10:37 MUFFLER INSTALLER Subjective Pain Symptoms : No ROSE LING RN - 06/28/2012 10:37 MUFFLER INSTALLER FLACC Face FLACC : No particular expression or smile Legs FLACC : Normal position or relaxed Activity FLACC : Lying quietly, normal position, moves easily Cry FLACC : No cry, awake or asleep Consolabillity FLACC : Content, relaxed FLACC Pain Scale Score : 0 ROSE LING RN - 06/28/2012 10:37 MUFFLER INSTALLER Dependent Habits Tobacco Use/Currently Using : No Exposure to Tobacco Smoke : Care provider denies smoking in home Smoking Status : Never smoker ROSE LING RN - 06/28/2012 10:37 MUFFLER INSTALLER Caffeine Use Grid Caffeine Use : None ROSE LING RN - 06/28/2012 10:37 MUFFLER INSTALLER Recreational Drug Use Grid Drug Use : None ROSE LING RN - 06/28/2012 10:37 MUFFLER INSTALLER Allergy Allergies (Active) Ceftin Estimated Onset Date: Unspecified ; Reactions: hives ; Created By: MADDIE AGOSTO LPN; Reaction Status: Active ; Category: Drug ; Substance: Ceftin ; Type: Allergy ; Updated By: MADDIE GAOSTO LPN; Reviewed Date: 06/28/2012 10:36 MUFFLER INSTALLER Anesth/Transfusion Anesthesia/Transfusions : Prior anesthesia ROSE LING RN - 06/28/2012 10:37 MUFFLER INSTALLER ID Screen Drug Resistant Organism : No ROSE LING RN - 06/28/2012 10:37 MUFFLER INSTALLER Activity/Exercise Exercise Type : Walking Exercise Frequency : 2-3 times per week Duration : 15-30 minutes ROSE LING RN - 06/28/2012 10:37 MUFFLER INSTALLER Diabetes Intake Do You Have Diabetes : No ROSE LING RN - 06/28/2012 10:37 MUFFLER INSTALLER Source: [facility] Healios K.K Document Id: [id number] LER INSTALLER documented in this encounter Plan of Treatment Upcoming Encounters Date Type Specialty Care Team Description 07/05/2022 Appointment Radiology Post, Heath Del Real APRN, C.N.P. [address] [place] [address] [phone] (Wo rk) documented as of this encounter Visit Diagnoses Not on filedocumented in this encounter
--- OUTSIDE RECORDS SUMMARY | 2022-06-20 12:48 | XMS_ITS | Encounter Summary ---
:1955 Author Organization [facility] Address [address] [place] [address] Care Team Providers Name Role Phone Unavailable Primary Care Provider Unavailable Encounter Details Date Type Department Care Team Description 06/28/2012 Hospital Encounter HX NO MAPPING Gilma Gonzales M.D. [address] [place] [address] [phone] (Wo rk) Social History Tobacco [...] How often do you attend scientology or scientology More than 4 time s [...] Heath Del Real APRN, C.N.P. [address] [place], [place] [phone] (Wo rk) documented as of this encounter Visit Diagnoses Not on filedocumented in this encounter
--- OUTSIDE RECORDS SUMMARY | 2022-06-20 12:48 | XMS_ITS | Encounter Summary ---
:1955 Author Organization [facility] Address [address] [place] [address] Care Team Providers Name Role Phone Unavailable Primary Care Provider Unavailable Encounter Details Date Type Department Care Team Description 01/03/2011 Hospital Encounter HX NO MAPPING Yulissa Finn APRN, C.N.P. [address] [place], [place] [phone] (Wo rk) Social History [...] How often do you attend jewish or congregational More than 4 time s [...] Post, Heath Del Real APRN, C.N.P. [address] [place] [address] [phone] (Wo rk) documented as of this encounter Visit Diagnoses Not on filedocumented in this encounter
--- OUTSIDE RECORDS SUMMARY | 2022-06-20 12:48 | XMS_ITS | Encounter Summary ---
:1955 Author Organization [facility] Address [address] [place] [address] Care Team Providers Name Role Phone Unavailable Primary Care Provider Unavailable Encounter Details Date Type Department Care Team Description 01/04/[address] [facility] Yulissa Lopez, OSMANI N, C.N.P. [address] [place], [place] [phone] (Wo rk) Social History [...] How often do you attend anabaptism or yazidi More than 4 time s [...] Post, Heath Del Real APRN, C.N.P. [address] [place] [address] [phone] (Wo rk) documented as of this encounter Visit Diagnoses Not on filedocumented in this encounter
--- OUTSIDE RECORDS SUMMARY | 2022-06-20 12:48 | XMS_ITS | Encounter Summary ---
:1955 Author Organization [facility] Address [address] [place] [address] Care Team Providers Name Role Phone Unavailable Primary Care Provider Unavailable Encounter Details Date Type Department Care Team Description 12/20/2006 Hospital Encounter HX NO MAPPING Yulissa Finn APRN, C.N.P. [address] [place], [place] [phone] (Wo rk) Social History [...] How often do you attend alevism or episcopalian More than 4 time s [...] Post, Heath Del Real APRN, C.N.P. [address] [place] [address] [phone] (Wo rk) documented as of this encounter Visit Diagnoses Not on filedocumented in this encounter
--- OUTSIDE RECORDS SUMMARY | 2022-06-20 12:48 | XMS_ITS | Encounter Summary ---
:1955 Author Organization [facility] Address [address] [place] [address] Care Team Providers Name Role Phone Unavailable Primary Care Provider Unavailable Encounter Details Date Type Department Care Team Description 07/12/2007 Hospital [facility] Yulissa Lopez, OSMANI N, C.N.P. [address] [place], [place] [phone] (Wo rk) Social History [...] How often do you attend spiritism or yazidi More than 4 time s [...] Historical Provider Ser - 07/12/2007 12:00 AM ASSISTANT PROFESSOR OF ANTHROPOLOGY [id number] Colleen Tolentino [address] [place] [phone] July 12, 2007 Dear Colleen Tolentino, APPOINTMENT REMINDER: Our record indicates that it is time for you to be seen for an office visit with Yulissa Finn PA-C You may call our office at [phone] to schedule an appointment for an Annual Physical. Please check with your insurance carrier for authorization prior to this appointment. Please disregard this notice if you have already received authorization from your insurance company and have made an appointment. Sincerely, [facility] Source: [facility] Document Id: [id number] documented in this encounter Plan of Treatment Upcoming Encounters Date Type Specialty Care Team Description 07/05/2022 Appointment Radiology Post, Heath Del Real APRN, C.N.P. [address] [place], [place] [address] [phone] (Wo rk) documented as of this encounter Visit Diagnoses Not on filedocumented in this encounter
--- OUTSIDE RECORDS SUMMARY | 2022-06-20 12:48 | XMS_ITS | Encounter Summary ---
:1955 Author Organization [facility] Address [address] [place] [address] Care Team Providers Name Role Phone Unavailable Primary Care Provider Unavailable Encounter Details Date Type Department Care Team Description 10/07/2008 Hospital Encounter HX [facility] Solis Caicedo O.D. Social History [...] How often do you attend quaker or moravian More than 4 time s [...] Michaels O.D. - 10/07/2008 9:00 AM CST [id number] CLINIC ENCOUNTER SLIT LAMP EXAM: Shows angles [...] time. PLAN: The patient will continue with [id number] readers. Reevaluate with full exam in two years, sooner if needed. Solis Michaels O.D. KMivana cc: Source: [facility] RWHXTRANSXSYS Document Id: [id number] Electronically signed by Conversion, [facility] Metal Extrusion Supervisor [id number] at 01/21/2017 6:48 PM CDT Conversion, Historical Provider Ser - 10/07/2008 9:00 AM CST [id number] Pain Questionnaire: Is your visit today because [...] Phoria:ortho. Current RX:NONE WITH HER Sphere Cylinder [place] Add Prism OD OS Refraction RET OD RET OS MR OD -.25 20/30 VA OU MR OS PLANO +.25 040 20/25 25 ADD OD +2.00 NA NA 20/ VA OU ADD OS +2.00 NA NA 20/ 20 CYC OD 20/ CYC OS 20/ Final RX: Sphere Cylinder [place] Add Prism OD +2.00 READERS OS IOP OD 13 OS 16 Tonometry Applination Dilation Medication Tropicamide 1.0% Optic Disc Assessment C/D Ratio OD C/D Ratio OS HPI ROS Physical Exam [facility] Document Id: [id number] documented in this encounter Plan of Treatment Upcoming Encounters Date Type Specialty Care Team Description 07/05/2022 Appointment Radiology Post, Heath Del eRal APRN, C.N.P. [address] [place] [address] [phone] (Wo rk) documented as of this encounter Visit Diagnoses Not on filedocumented in this encounter
--- OUTSIDE RECORDS SUMMARY | 2022-06-20 12:48 | XMS_ITS | Encounter Summary ---
:1955 Author Organization [facility] Address [address] [place] [address] Care Team Providers Name Role Phone Unavailable Primary Care Provider Unavailable Encounter Details Date Type Department Care Team Description 01/13/2011 Hospital Encounter HX NO MAPPING Yulissa Finn APRN, C.N.P. [address] [place], [place] [phone] (Wo rk) Social History [...] How often do you attend orthodox or anglican More than 4 time [...] Post, Heath Del Real APRN, C.N.P. [address] [place] [address] [phone] (Wo rk) documented as of this encounter Visit Diagnoses Not on filedocumented in this encounter
--- OUTSIDE RECORDS SUMMARY | 2022-06-20 12:48 | XMS_ITS | Encounter Summary ---
:1955 Author Organization [facility] Address [address] [place] [address] Care Team Providers Name Role Phone Unavailable Primary Care Provider Unavailable Encounter Details Date Type Department Care Team Description 12/31/2006 Hospital Encounter HX [facility] Yulissa Lopez, OSMANI N, C.N.P. [address] [place], [place] [phone] (Wo rk) Social History [...] How often do you attend mosque or anabaptism More than 4 time s [...] Heath Del Real APRN, C.N.P. [address] [place] [address] [phone] (Wo rk) documented as of this encounter Visit Diagnoses Not on filedocumented in this encounter
--- OUTSIDE RECORDS SUMMARY | 2022-06-20 12:48 | XMS_ITS | Encounter Summary ---
:1955 Author Organization [facility] Address [address] [place] [address] Care Team Providers Name Role Phone Unavailable Primary Care Provider Unavailable Encounter Details Date Type Department Care Team Description 10/10/2010 Hospital Encounter HX [facility] Solis Caicedo O.D. Social History Tobacco Use [...] How often do you attend congregation or pentecostal More than 4 time s [...] Historical Provider Ser - 10/10/2010 12:00 AM CIGAR WRAPPER TENDER AUTOMATIC [id number] Colleen Tolentino [address] [place] [phone] [facility] October 10, 2010 Dear Colleen Tolentino: Our records indicate that you are due for the following appointment: TWO YEAR EYE EXAM Please call us to make an appointment at your convenience. Our telephone number for scheduling an appointment is [phone]. If you have already made an appointment for this or have had the proceduredone, please disregard this notice. We look forward to seeing you soon. Sincerely, Solis Michaels O.D./yoselin Ophthalmology Department [facility]: [facility] Document Id: [id number] documented in this encounter Plan of Treatment Upcoming Encounters Date Type Specialty Care Team Description 07/05/2022 Appointment Radiology Post, Heath Del Real APRN, C.N.P. [address] [place], [place] [address] [phone] (Wo rk) documented as of this encounter Visit Diagnoses Not on filedocumented in this encounter
--- OUTSIDE RECORDS SUMMARY | 2022-06-20 12:48 | XMS_ITS | Encounter Summary ---
:1955 Author Organization [facility] Address [address] [place] [address] Care Team Providers Name Role Phone Unavailable Primary Care Provider Unavailable Encounter Details Date Type Department Care Team Description 01/13/2011 Hospital Encounter HX NO MAPPING Yulissa Finn APRN, C.N.P. [address] [place], [place] [phone] (Wo rk) Social History [...] How often do you attend restorationism or amish More than 4 time s [...] Heath Del Real APRN, C.N.P. [address] [place] [address] [phone] (Wo rk) documented as of this encounter Visit Diagnoses Not on filedocumented in this encounter
--- OUTSIDE RECORDS SUMMARY | 2022-06-20 12:48 | XMS_ITS | Encounter Summary ---
:1955 Author Organization [facility] Address [address] [place] [address] Care Team Providers Name Role Phone Unavailable Primary Care Provider Unavailable Encounter Details Date Type Department Care Team Description 09/23/2008 Hospital Encounter HX NO MAPPING Yulissa Finn APRN, C.N.P. [address] [place], [place] [phone] (Wo rk) Social History [...] How often do you attend adventism or jew More than 4 time s [...] Post, Heath Del Real APRN, C.N.P. [address] [place] [address] [phone] (Wo rk) documented as of this encounter Visit Diagnoses Not on filedocumented in this encounter
--- OUTSIDE RECORDS SUMMARY | 2022-06-20 12:48 | XMS_ITS | Encounter Summary ---
:1955 Author Organization [facility] Address [address] [place] [address] Care Team Providers Name Role Phone Unavailable Primary Care Provider Unavailable Encounter Details Date Type Department Care Team Description 12/31/[address] [facility] Yulissa Lopez, OSMANI N, C.N.P. [address] [place], [place] [phone] (Wo rk) Social History [...] How often do you attend orthodoxy or holiness More than 4 time s [...] Post, Heath Del Real APRN, C.N.P. [address] [place] [address] [phone] (Wo rk) documented as of this encounter Visit Diagnoses Not on filedocumented in this encounter
--- OUTSIDE RECORDS SUMMARY | 2022-06-20 12:48 | XMS_ITS | Encounter Summary ---
:1955 Author Organization [facility] Address [address] [place] [address] Care Team Providers Name Role Phone Unavailable [...] Post, Heath Del Real APRN, C.N.P. [address] [place] [address] [phone] (Wo rk) documented as of this encounter Visit Diagnoses Not on filedocumented in this encounter
--- OUTSIDE RECORDS SUMMARY | 2022-06-20 12:48 | XMS_ITS | Encounter Summary ---
:1955 Author Organization [facility] Address [address] [place] [address] Care Team Providers Name Role Phone Unavailable Primary Care Provider Unavailable Encounter Details Date Type Department Care Team Description 10/05/2008 Hospital Encounter HX [facility] Yulissa Lopez, OSMANI N, C.N.P. [address] [place], [place] [phone] (Wo rk) Social History [...] How often do you attend baptism or anabaptism More than 4 time s [...] Post, Heath Del Real APRN, C.N.P. [address] [place] [address] [phone] (Wo rk) documented as of this encounter Visit Diagnoses Not on filedocumented in this encounter
--- OUTSIDE RECORDS SUMMARY | 2022-06-20 12:48 | XMS_ITS | Encounter Summary ---
:1955 Author Organization [facility] Address [address] [place] [address] Care Team Providers Name Role Phone Unavailable [...] How often do you attend orthodoxy or baptism More than 4 time s [...] Historical Provider Ser - 08/20/2011 12:00 AM HYPNOTHERAPIST [id number] 08/14/2012 - IOD processed records. [facility]: [facility] Document Id: [id number] documented in this encounter Plan of Treatment Upcoming Encounters Date Type Specialty Care Team Description 07/05/2022 Appointment Radiology Post, Heath Del Real APRN, C.N.P. [address] [place], [place] [address] [phone] (Wo rk) documented as of this encounter Visit Diagnoses Not on filedocumented in this encounter
--- OUTSIDE RECORDS SUMMARY | 2022-06-20 12:48 | XMS_ITS | Encounter Summary ---
:1955 Author Organization [facility] Address [address] [place] [address] Care Team Providers Name Role Phone Unavailable Primary Care Provider Unavailable Encounter Details Date Type Department Care Team Description 09/23/2008 Hospital Encounter [facility]X [facility] Yulissa Lopez, OSMANI N, C.N.P. [address] [place], [place] [phone] (Wo rk) Social History [...] How often do you attend hindu or evangelical More than 4 time s [...] C.N.P., R.N. - 09/23/2008 8:15 AM CST [id number] Colleen is a 53 year old postmenopausal woman here for her annual exam. She has been menopausal sinceage 42. She is not on HRT. She would like to continue with this plan. She denies any vaginal bleeding. Cloleen is sexually active with her and denies [...] her health over the next year. Source: [facility] Document Id: [id number] documented in this encounter Miscellaneous Notes Miscellaneous - Conversion, Historical Provider Ser - 09/23/2008 8:15 AM SUPERVISOR [employer] [id number] Colleen Tolentino [address] [place] [phone] September 25, 2008 Dear Colleen Tolentino, I am happy to inform you that your recent cervical cancer screening test (PAP smear) was normal. Preventative screening such as this helps insure your health for years to come. Congratulations for taking care of yourself! Please contact my office if you have any further questions. [phone]. Sincerely, Yulissa Finn RN, SHREDDING MACHINE KNIFE CHANGER OBSTETRICS/GYNECOLOGY [facility] Source: [facility] Document Id: [id number] documented in this encounter Plan of Treatment Upcoming Encounters Date Type Specialty Care Team Description 07/05/2022 Appointment Radiology Post, Heath Del Real APRN, C.N.P. [address] [place] [phone] (Wo rk) documented as of this encounter Visit Diagnoses Not on filedocumented in this encounter
--- OUTSIDE RECORDS SUMMARY | 2022-06-20 12:48 | XMS_ITS | Encounter Summary ---
:1955 Author Organization [facility] Address [address] [place] [address] Care Team Providers Name Role Phone Unavailable Primary Care Provider Unavailable Encounter Details Date Type Department Care Team Description 06/27/2012 Hospital Encounter [facility]X [facility] Trev Borrero III, M.D. [address] [place] [phone] (Wo rk) Social History Tobacco Use [...] How often do you attend muslim or sabianism More than 4 time s [...] Comments Blood Pressure 124/72 06/27/2012 1:11 PM ORTHOTIST OR PROSTHETIST Pulse 86 06/27/2012 1:11 PM ORTHOTIST OR PROSTHETIST Temperature - - Respiratory Rate 16 06/27/2012 1:11 PM ORTHOTIST OR PROSTHETIST Oxygen Saturation - - Inhaled Oxygen Concentration [...] Peñaloza M.D. - 06/27/2012 12:58 PM CST [id number] CHIEF COMPLAINT/REASON FOR VISIT Recheck chin. HISTORY OF PRESENT ILLNESS Ms. Tillman is a 57-year-old white female who fell and split her chin while at work at [employer]. There is quite a large laceration [...] III, MD On: 07/30/2012 08:36 AM Source: [facility] MHSDOLBEYNONRADSYS Document Id: [id number] OTIST OR PROSTHETIST documented in this encounter Miscellaneous Notes Miscellaneous - Charlie Peñaloza M.D. - 06/27/2012 3:20 PM CST Ambulatory Depart Summary [address] [address] Visit Information Name: COLLEEN TILLMAN Visit Date: [...] provider for clarification. Additional Information: Source: [facility] Ardelyx Document Id: [id number] ENCE Laurencellaneous - Charlie Peñaloza M.D. - 06/27/2012 3:20 PM CST Ambulatory Patient Summary [address] [address] Visit Information Name: COLLEEN TILLMAN Current Date: [...] No Appointments found Your Goals/Additional instructions: Source: [facility] SymonicsCHART Document Id: [id number] OTIST OR PROSTHETIST Miscellaneous - Maddie Strong L.P.N. 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 Foundry Metallurgist Intake/History Entered On: 06/27/2012 13:13 ORTHOTIST OR PROSTHETIST Performed On: 06/27/2012 13:11 ORTHOTIST OR PROSTHETIST by MADDIE STRONG LPN Intake Chief Complaint [...] Large MADDIE STRONG LPN - 06/27/2012 13:11 ORTHOTIST OR PROSTHETIST Subjective Pain Symptoms : Yes MADDIE STRONG LPN - 06/27/2012 13:11 ORTHOTIST OR PROSTHETIST Pain Pain Assessment Grid Pain 1 Location : Shoulder Laterality : Left Intensity : 7 Time Pattern : Acute Onset : Sudden Quality : Aching, Other: spasms Pain Radiation : No Aggravating Factors : None Alleviating Factors : None Associated Symptoms : None Interventions : Cold MADDIE STRONG LPN - 06/27/2012 13:11 ORTHOTIST OR PROSTHETIST Dependent Habits Tobacco Use/Currently Using : No Tobacco Use/Last 12 months : No Tobacco Use/Advised to Quit : No Exposure to Tobacco Smoke : Care provider denies smoking in home Smoking Status : Never smoker Alcohol Use : No MADDIE STRONG LPN - 06/27/2012 13:11 ORTHOTIST OR PROSTHETIST Caffeine Use Grid Caffeine Use : None MADDIE STRONG LPN - 06/27/2012 13:11 ORTHOTIST OR PROSTHETIST Recreational Drug Use Grid Drug Use : None MADDIE STRONG LPN - 06/27/2012 13:11 ORTHOTIST OR PROSTHETIST Allergy Allergies (Active) Ceftin Estimated Onset Date: Unspecified ; Reactions: hives ; Created By: MADDIE STRONG LPN; Reaction Status: Active ; Category: Drug ; Substance: Ceftin ; Type: Allergy ; Updated By: MADDIE STRONG LPN; Reviewed Date: 06/27/2012 13:10 ORTHOTIST OR PROSTHETIST [facility] Document Id: [id number] OTIST OR PROSTHETIST documented in this encounter Plan of Treatment Upcoming Encounters Date Type Specialty Care Team Description 07/05/2022 Appointment Radiology Post, Heath Del Real APRN, C.N.P. [address] [place], [place] [phone] (Wo rk) documented as of this encounter Visit Diagnoses Not on filedocumented in this encounter
--- OUTSIDE RECORDS SUMMARY | 2022-06-20 12:48 | XMS_ITS | Encounter Summary ---
:1955 Author Organization [facility] Address [address] [place] [address] Care Team Providers Name Role Phone Unavailable Primary Care Provider Unavailable Encounter Details Date Type Department Care Team Description 06/29/2012 Hospital Encounter [facility] Trev Borrero III, M.D. [address] [place] [phone] (Wo rk) Social History Tobacco Use [...] How often do you attend worship or muslim More than 4 time s [...] Comments Blood Pressure 108/60 06/29/2012 10:24 AM AGRICULTURE LABORER Pulse 76 06/29/2012 10:24 AM AGRICULTURE LABORER Temperature - - Respiratory Rate 18 06/29/2012 10:24 AM AGRICULTURE LABORER Oxygen Saturation - - Inhaled Oxygen Concentration [...] Peñaloza M.D. - 06/29/2012 10:05 AM CST [id number] CHIEF COMPLAINT/REASON FOR VISIT Ms. Tillman is [...] III, MD On: 07/12/2012 05:21 PM Source: [facility] MHSDOLBEYNONRADSYS Document Id: [id number] CULTURE LABORER documented in this encounter Miscellaneous Notes Miscellaneous - Charlie Peñaloza M.D. - 06/29/2012 11:21 AM CST Ambulatory Depart Summary [address] [address] Visit Information Name: COLLEEN TILLMAN Visit Date: [...] your provider for clarification. Additional Information: Source: [facility] POWERCHART Document Id: [id number] CULTURE LABORER Miscellaneous - Charlie Peñaloza M.D. - 06/29/2012 11:21 AM CST Ambulatory Patient Summary [address] [address] Visit Information Name: COLLEEN TILLMAN Current Date: [...] once a day as needed for pain Mis Prescription (Melaluca vitamins) 1 packet Oral [...] Date Time Location Reason Provider 07/01/2012 09:00 [facility] Family Med stitches removed Charlie Peñaloza MD 07/05/2012 08:30 [facility] Spec Clin follow up fracture Donavon REED, Cayetano Vela Your Goals/Additional instructions: Source: [facility] POWERCHART Document Id: [id number] CULTURE LABORER Miscellaneous - Cliff Griffiths L.P.N. 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 Intake/History Entered On: 06/29/2012 10:29 AGRICULTURE LABORER Performed On: 06/29/2012 10:24 AGRICULTURE LABORER by CLIFF GRIFFITHS LPN Intake Chief Complaint : Follow up check stiches Temperature Core : 36.8C(Converted to: 98.2DegF) Peripheral Pulse Rate : 76/min Respiratory Rate : 18/min Heart Rhythm : Regular Systolic Blood Pressure : 108mmHg Diastolic Blood Pressure : 60mmHg NIBP Mean : 76mmHg BP Location : Right upper extremity Blood Pressure Cuff Size : Large Weight Source : Other: declined KOSTA GRIFFITHSEUGENE Roger LPN - 06/29/2012 10:24 AGRICULTURE LABORER Subjective Pain Symptoms : Yes KOSTA GRIFFITHSEUGENE Roger LPN - 06/29/2012 10:24 AGRICULTURE LABORER Pain Pain Assessment Grid Pain 1 Location : Shoulder Laterality : Left Intensity : 2 FLO CLIFFEUGENE Roger LPN - 06/29/2012 10:24 AGRICULTURE LABORER Dependent Habits Tobacco Use/Currently Using : No Exposure to Tobacco Smoke : Care provider denies smoking in home Smoking Status : Never smoker FLO CLIFF Roger [facility] - 06/29/2012 10:24 AGRICULTURE LABORER Tobacco Use Grid Last Use : never CLIFF GRIFFITHS LPN - 06/29/2012 10:24 AGRICULTURE LABORER Alcohol Use : No GRIFFITHS CLIFF Roger LPN - 06/29/2012 10:24 AGRICULTURE LABORER Caffeine Use Grid Caffeine Use : None CLIFF GRIFFITHS LPN - 06/29/2012 10:24 AGRICULTURE LABORER Recreational Drug Use Grid Drug Use : None FLO CLIFFEUGENE Roger LPN - 06/29/2012 10:24 AGRICULTURE LABORER Allergy Allergies (Active) Ceftin Estimated Onset Date: Unspecified ; Reactions: hives ; Created By: MADDIE AGOSTO LPN; Reaction Status: Active ; Category: Drug ; Substance: Ceftin ; Type: Allergy ; Updated By: MADDIE AGOSTO LPN; Reviewed Date: 06/28/2012 10:44 AGRICULTURE LABORER Source: [facility] POWERCHART Document Id: [id number] CULTURE LABORER documented in this encounter Plan of Treatment Upcoming Encounters Date Type Specialty Care Team Description 07/05/2022 Appointment Radiology Post, Heath Del Real APRN, C.N.P. [address] [place] [phone] (Wo rk) documented as of this encounter Visit Diagnoses Not on filedocumented in this encounter
--- OUTSIDE RECORDS SUMMARY | 2022-06-20 12:48 | XMS_ITS | Encounter Summary ---
:1955 Author Organization [facility] Address [address] [place] [address] Care Team Providers Name Role Phone Unavailable Primary Care Provider Unavailable Encounter Details Date Type Department Care Team Description 01/03/2011 Hospital Encounter [facility] Yulissa Lopez, OSMANI N, C.N.P. [address] [place], [place] [phone] (Wo rk) Social History [...] How often do you attend holiness or sabianism More than 4 time s [...] Heath Del Real APRN, C.N.P. [address] [place] [phone] (Wo rk) documented as of this encounter Visit Diagnoses Not on filedocumented in this encounter
--- OUTSIDE RECORDS SUMMARY | 2022-06-20 12:48 | XMS_ITS | Encounter Summary ---
:1955 Author Organization [facility] Address [address] [place] [address] Care Team Providers Name Role Phone Unavailable Primary Care Provider Unavailable Encounter Details Date Type Department Care Team Description 07/25/2011 Hospital En[facility] Ana Felix D.P.M. [address] [place] [phone] (Wo rk) Social History Tobacco Use [...] How often do you attend islam or episcopal More than 4 time s [...] Saucedo, D.P.M. - 07/25/2011 9:15 AM CST [id number] No visit. Contact information for Sebastián Saenz given. Source: [facility] Document Id: [id number] Electronically signed by Conversion, [facility] Art Coordinator [id number] at 01/21/2017 2:34 AM CDT documented in this encounter Plan of Treatment Upcoming Encounters Date Type Specialty Care Team Description 07/05/2022 Appointment Radiology Post, Heath Del Real APRN, C.N.P. [address] [place], [place] [phone] (Wo rk) documented as of this encounter Visit Diagnoses Not on filedocumented in this encounter
--- OUTSIDE RECORDS SUMMARY | 2022-06-20 12:48 | XMS_ITS | Encounter Summary ---
:1955 Author Organization [facility] Address [address] [place] [address] Care Team Providers Name Role Phone Unavailable Primary Care Provider Unavailable Encounter Details Date Type Department Care Team Description 01/23/2011 Hospital Encounter [facility]X [facility] NUTRITION Sabina Marquez, RDN, CDE [address] [place] [phone] Social History Tobacco Use Types [...] How often do you attend samaritan or muslim More than 4 time s [...] NIKI, C.D.E. - 01/23/2011 10:30 AM CDT [id number] S: Patient seen for f/u weight management [...] skim milk, banana nut muffin or Raisin Malay muffin, hard boiled egg, 1/2 banana, 8 oz milk Lunch: 1/2 sandwich/meat/cheese, carrot sticks Supper: varies Exercise: 3x/week walks on treadmill or outside 1-2 miles; is trying to increase to 5x/week O: Chol 235 TG 72 HDL 60 LDL 160 Ht. 5'2 Wt. 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 She is aware that emotional eating [...] least 5 days/week F/U as warranted. Source: [facility]ENTERHXTRANSXRTFSYS Document Id: [id number] Electronically signed by Lizeth, [facility] Centerestefanía Real Estate Loan Processor [id number] at 01/20/2017 10:56 PM CDT documented in this encounter Plan of Treatment Upcoming Encounters Date Type Specialty Care Team Description 07/05/2022 Appointment Radiology Post, Heath Del Real APRN, C.N.P. [address] [place] [phone] (Wo rk) documented as of this encounter Visit Diagnoses Not on filedocumented in this encounter
--- OUTSIDE RECORDS SUMMARY | 2022-06-20 12:48 | XMS_ITS | Encounter Summary ---
:1955 Author Organization [facility] Address [address] [place] [address] Care Team Providers Name Role Phone Unavailable Primary Care Provider Unavailable Encounter Details Date Type Department Care Team Description 01/03/2011 Hospital Encounter HX NO MAPPING Yulissa Finn APRN, C.N.P. [address] [place], [place] [phone] (Wo rk) Social History [...] How often do you attend samaritan or tenriism More than 4 time s [...] Post, Heath Del Real APRN, C.N.P. [address] [place] [phone] (Wo rk) documented as of this encounter Visit Diagnoses Not on filedocumented in this encounter
--- OUTSIDE RECORDS SUMMARY | 2022-06-20 12:48 | XMS_ITS | Encounter Summary ---
:1955 Author Organization [facility] Address [address] [place] [address] Care Team Providers Name Role Phone Unavailable Primary Care Provider Unavailable Encounter Details Date Type Department Care Team Description 01/03/2011 Hospital Encounter [facility] Yulissa Lopez, OSMANI N, C.N.P. [address] [place], [place] [phone] (Wo rk) Social History [...] How often do you attend moravian or jehovah's witness More than 4 time [...] C.N.P., R.N. - 01/03/2011 8:15 AM CDT [id number] Colleen is a 55 year old postmenopausal [...] her health over the next year. Source: [facility]US[facility]CHXTRANSXRTFSYS Document Id: [id number] Electronically signed by Lizeth [facility] Senior Data Analyst [id number] at 01/21/2017 6:21 AM CDT documented in this encounter Plan of Treatment Upcoming Encounters Date Type Specialty Care Team Description 07/05/2022 Appointment Radiology Post, Heath Del Real APRN, C.N.P. [address] [place] [phone] (Wo rk) documented as of this encounter Visit Diagnoses Not on filedocumented in this encounter
--- OUTSIDE RECORDS SUMMARY | 2022-06-20 12:48 | XMS_ITS | Encounter Summary ---
:1955 Author Organization [facility] Address [address] [place] [address] Care Team Providers Name Role Phone Unavailable Primary Care Provider Unavailable Encounter Details Date Type Department Care Team Description 09/03/2008 Hospital Encounter HX [facility] INPT[facility]BS[facility] Suma Steven M.D. [address] [place] [address] (Wo rk) Social History Tobacco [...] How often do you attend methodist or judaism More than 4 time s [...] Heath Del Real APRN, C.N.P. [address] [place], [place] [phone] (Wo rk) documented as of this encounter Visit Diagnoses Not on filedocumented in this encounter
--- OUTSIDE RECORDS SUMMARY | 2022-06-20 12:48 | XMS_ITS | Encounter Summary ---
:1955 Author Organization [facility] Address [address] [place] [address] Care Team Providers Name Role Phone Unavailable Primary Care Provider Unavailable Encounter Details Date Type Department Care Team Description 01/26/2011 Hospital Encounter HX NO MAPPING Abhi Valle am, M.D. [address] [place] [phone] (Wo rk) Social History Tobacco [...] Heath Del Real APRN, C.N.P. [address] [place] [phone] (Wo rk) documented as of this encounter Visit Diagnoses Not on filedocumented in this encounter
--- OUTSIDE RECORDS SUMMARY | 2022-06-20 12:48 | XMS_ITS | Encounter Summary ---
:1955 Author Organization [facility] Address [address] [place] [address] Care Team Providers Name Role Phone Unavailable Primary Care Provider Unavailable Encounter Details Date Type Department Care Team Description 09/07/2008 Hospital Encounter [facility]X [facility] Yulissa Ruffin APRN, C.N.P. [address] [place] [phone] (Wo rk) Social History Tobacco Use [...] How often do you attend scientology or zoroastrian More than 4 time s [...] Heath Del Real APRN, C.N.P. [address] [place] [phone] (Wo rk) documented as of this encounter Visit Diagnoses Not on filedocumented in this encounter
--- OUTSIDE RECORDS SUMMARY | 2022-06-20 12:48 | XMS_ITS | Encounter Summary ---
:1955 Author Organization [facility] Address [address] [place] [address] Care Team Providers Name Role Phone Unavailable Primary Care Provider Unavailable Encounter Details Date Type Department Care Team Description 07/22/2008 Hospital [facility] Yulissa Ruffin APRN, C.N.P. [address] [place] [phone] (Wo rk) Social History Tobacco Use [...] How often do you attend muslim or catholic More than 4 time s [...] Heath Del Real APRN, C.N.P. [address] [place] [phone] (Wo rk) documented as of this encounter Visit Diagnoses Not on filedocumented in this encounter
--- OUTSIDE RECORDS SUMMARY | 2022-06-20 12:48 | XMS_ITS | Encounter Summary ---
:1955 Author Organization [facility] Address [address] [place] [address] Care Team Providers Name Role Phone Unavailable Primary Care Provider Unavailable Encounter Details Date Type Department Care Team Description 09/23/2008 Hospital Encounter HX NO MAPPING Yulissa Finn APRN, C.N.P. [address] [place], [place] [phone] (Wo rk) Social History [...] How often do you attend temple or adventist More than 4 time s [...] Post, Heath Del Real APRN, C.N.P. [address] [place] [phone] (Wo rk) documented as of this encounter Visit Diagnoses Not on filedocumented in this encounter
--- OUTSIDE RECORDS SUMMARY | 2022-06-20 12:48 | XMS_ITS | Encounter Summary ---
:1955 Author Organization [facility] Address [address] [place] [address] Care Team Providers Name Role Phone Unavailable Primary Care Provider Unavailable Encounter Details Date Type Department Care Team Description 07/01/2012 Hospital Encounter HX [facility] Trev Borrero III, M.D. [address] [place] [phone] (Wo rk) Social History Tobacco Use [...] How often do you attend yarsani or cheondoism More than 4 time s [...] Comments Blood Pressure 114/70 07/01/2012 9:29 AM OUTPATIENT THERAPIST Pulse 80 07/01/2012 9:29 AM OUTPATIENT THERAPIST Temperature - - Respiratory Rate 16 07/01/2012 9:29 AM OUTPATIENT THERAPIST Oxygen Saturation - - Inhaled Oxygen Concentration [...] Peñaloza M.D. - 07/01/2012 9:06 AM CST [id number] CHIEF COMPLAINT/REASON FOR VISIT Suture removal. HISTORY [...] III, MD On: 07/30/2012 08:36 AM Source: [facility] MHSDOLBEYNONRADSYS Document Id: [id number] ATIENT THERAPIST documented in this encounter Miscellaneous Notes Miscellaneous - Paty Albarran, L.P.N. - 07/01/2012 9:36 AM CST Health Assessment Health Assessment Entered On: 07/01/2012 9:37 OUTPATIENT THERAPIST Performed On: 07/01/2012 9:36 OUTPATIENT THERAPIST by PATY ALBARRAN [facility] Health Assessment Complete Health Assessment Complete or Modified : Annual Health Assessment Annual Health Assessment Completed : Yes PATY ALBARRAN [employer] SUPERVISOR - 07/01/2012 9:36 OUTPATIENT THERAPIST Nutrition Nutrition Risk Factors by History Adult : None APTY ALBARRAN [facility] - 07/01/2012 9:36 OUTPATIENT THERAPIST Functional Current Daily Living Assistance : None PATY ALBARRAN [facility] - 07/01/2012 9:36 OUTPATIENT THERAPIST Dependent Habits Tobacco Use/Currently Using : No Exposure to Tobacco Smoke : Care provider denies smoking in home Smoking Status : Never smoker PATY ALBARRAN [facility] - 07/01/2012 9:36 OUTPATIENT THERAPIST Tobacco Use Grid Last Use : never PATY ALBARRAN [facility] - 07/01/2012 9:36 OUTPATIENT THERAPIST Alcohol Use : No PATY ALBARRAN [facility] - 07/01/2012 9:36 OUTPATIENT THERAPIST Caffeine Use Grid Caffeine Use : None PATY ALBARRAN [facility] - 07/01/2012 9:36 OUTPATIENT THERAPIST Recreational Drug Use Grid Drug Use : None PATY ALBARRAN [facility] - 07/01/2012 9:36 OUTPATIENT THERAPIST Psychosocial Domestic Abuse Concerns : None PATY ALBARRAN [facility] - 07/01/2012 9:36 OUTPATIENT THERAPIST Advance Directive Advanced Directives : Yes PATY ALBARRAN RU[employer] D[employer] SUPERVISOR - 07/01/2012 9:36 OUTPATIENT THERAPIST Educ Needs Learning Style Preference Adult Grid Patient : None Family : None PATY ALBARRAN RU[employer]ER [employer] D[employer] SUPERVISOR - 07/01/2012 9:36 OUTPATIENT THERAPIST Source: [facility] POWERCHART Document Id: [id number] ATIENT THERAPIST Miscellaneous - Paty Albarran L.P.N. - 07/01/2012 9:29 AM CST Adult Title Clerk Intake/History Adult Title Clerk Intake/History Entered On: 07/01/2012 9:33 OUTPATIENT THERAPIST Performed On: 07/01/2012 9:29 OUTPATIENT THERAPIST by PATY ALBARRAN LPN Intake Chief Complaint [...] refused PATY ALBARRAN LPN - 07/01/2012 9:29 OUTPATIENT THERAPIST Subjective Pain Symptoms : No PATY ALBARRAN LPN - 07/01/2012 9:29 OUTPATIENT THERAPIST Dependent Habits Tobacco Use/Currently Using : No Exposure to Tobacco Smoke : Care provider denies smoking in home Smoking Status : Never smoker PATY ALBARRAN LPN - 07/01/2012 9:29 OUTPATIENT THERAPIST Tobacco Use Grid Last Use : never PATY ALBARRAN LPN - 07/01/2012 9:29 OUTPATIENT THERAPIST Alcohol Use : No PATY ALBARRAN LPN - 07/01/2012 9:29 OUTPATIENT THERAPIST Caffeine Use Grid Caffeine Use : None PATY ALBARRAN LPN - 07/01/2012 9:29 OUTPATIENT THERAPIST Recreational Drug Use Grid Drug Use : None PATY ALBARRAN LPN - 07/01/2012 9:29 OUTPATIENT THERAPIST Allergy Allergies (Active) Ceftin Estimated Onset Date: Unspecified ; Reactions: hives ; Created By: MADDIE AGOSTO LPN; Reaction Status: Active ; Category: Drug ; Substance: Ceftin ; Type: Allergy ; Updated By: MADDIE AGOSTO LPN; Reviewed Date: 06/29/2012 10:29 OUTPATIENT THERAPIST Source: [facility] POWERCHART Document Id: [id number] ATIENT THERAPIST documented in this encounter Plan of Treatment Upcoming Encounters Date Type Specialty Care Team Description 07/05/2022 Appointment Radiology Post, Heath Del Real APRN, C.N.P. [address] [place] [address] [phone] (Wo rk) documented as of this encounter Visit Diagnoses Not on filedocumented in this encounter
--- OUTSIDE RECORDS SUMMARY | 2022-06-20 12:48 | XMS_ITS | Encounter Summary ---
:1955 Author Organization [facility] Address [address] [place] [address] Care Team Providers Name Role Phone Unavailable Primary Care Provider Unavailable Encounter Details Date Type Department Care Team Description 12/05/2010 Hospital Encounter [facility] Yulissa Ruffin APRN, C.N.P. [address] [phone] (Wo rk) Social History Tobacco Use [...] How often do you attend yarsanism or tenriism More than 4 time s [...] Heath Del Real APRN, C.N.P. [address] [place] [address] [phone] (Wo rk) documented as of this encounter Visit Diagnoses Not on filedocumented in this encounter
--- OUTSIDE RECORDS SUMMARY | 2022-06-20 12:48 | XMS_ITS | Encounter Summary ---
:1955 Author Organization [facility] Address [address] [place] [address] Care Team Providers Name Role Phone Unavailable Primary Care Provider Unavailable Encounter Details Date Type Department Care Team Description 01/26/2011 Hospital Encounter HX NO MAPPING Abhi Valle am, M.D. [address] [place] [phone] (Wo rk) Social History Tobacco [...] How often do you attend zoroastrian or episcopalian More than 4 time s [...] Heath Del Real APRN, C.N.P. [address] [place] [address] [phone] (Wo rk) documented as of this encounter Visit Diagnoses Not on filedocumented in this encounter
--- OUTSIDE RECORDS SUMMARY | 2022-06-20 12:48 | XMS_ITS | Encounter Summary ---
:1955 Author Organization [facility] Address [address] [place] [address] Care Team Providers Name Role Phone Unavailable Primary Care Provider Unavailable Encounter Details Date Type Department Care Team Description 01/26/2011 Hospital Encounter HX NO MAPPING Abhi Valle am, M.D. [address] [place] [phone] (Wo rk) Social History Tobacco [...] How often do you attend alevism or voodoo More than 4 time s [...] Post, Heath Del Real APRN, C.N.P. [address] [place] [address] [phone] (Wo rk) documented as of this encounter Visit Diagnoses Not on filedocumented in this encounter
--- OUTSIDE RECORDS SUMMARY | 2022-06-20 12:48 | XMS_ITS | Encounter Summary ---
:1955 Author Organization [facility] Address [address] [place] [address] Care Team Providers Name Role Phone Unavailable Primary Care Provider Unavailable Encounter Details Date Type Department Care Team Description 01/13/2011 Hospital Encounter [facility] XRAY Provider, Histori reilly Social [...] How often do you attend shinto or hinduism More than 4 time s [...] Post, Heath Del Real APRN, C.N.P. [address] [place] [address] [phone] (Wo rk) documented as of this encounter Visit Diagnoses Not on filedocumented in this encounter
--- OUTSIDE RECORDS SUMMARY | 2022-06-20 12:48 | XMS_ITS | Encounter Summary ---
:1955 Author Organization [facility] Address [address] [place] [address] Care Team Providers Name Role Phone Unavailable Primary Care Provider Unavailable Encounter Details Date Type Department Care Team Description 09/23/2008 Hospital Encounter HX [facility] XRAY Provider, Histori reilly Social History [...] How often do you attend congregational or gnosticist More than 4 time s [...] Heath Del Real APRN, C.N.P. [address] [place] [address] [phone] (Wo rk) documented as of this encounter Visit Diagnoses Not on filedocumented in this encounter
--- OUTSIDE RECORDS SUMMARY | 2022-06-20 12:48 | XMS_ITS | Encounter Summary ---
:1955 Author Organization [facility] Address [address] [place] [address] Care Team Providers Name Role Phone Unavailable Primary Care Provider Unavailable Encounter Details Date Type Department Care Team Description 01/03/2011 Hospital Encounter [facility]X [facility] XRAY Provider, Histori reilly Social History [...] How often do you attend episcopal or uatsdin More than 4 time s [...] Post, Heath Del Real APRN, C.N.P. [address] [place] [address] [phone] (Wo rk) documented as of this encounter Visit Diagnoses Not on filedocumented in this encounter
--- OUTSIDE RECORDS SUMMARY | 2022-06-20 12:49 | XMS_ITS | Encounter Summary ---
:1955 Author Organization [facility] Address [address] [place] [address] Care Team Providers Name Role Phone Unavailable Primary Care Provider Unavailable Encounter Details Date Type Department Care Team Description 09/06/2005 Hospital Encounter HX [facility] PODIATRY Ana Felix D.P.M. [address] [place] [phone] (Wo rk) Social History Tobacco Use [...] How often do you attend orthodoxy or mandaeism More than 4 time s [...] of this encounter Progress Notes Ana Saucedo D.PJames - 09/06/2005 9:45 AM CST [id number] SUBJECTIVE: Colleen presents to clinic for bulk picker of custom functional orthotics. OBJECTIVE: The [...] understanding to infromation discussed this visit. Source: [facility] Document Id: [id number] Electronically signed by Conversion, [facility] Community Health Worker [id number] at 01/22/2017 3:22 PM CDT documented in this encounter Plan of Treatment Upcoming Encounters Date Type Specialty Care Team Description 07/05/2022 Appointment Radiology Post, Heath Del Real APRN, C.N.P. [address] [place], [place] [address] [phone] (Wo rk) documented as of this encounter Visit Diagnoses Not on filedocumented in this encounter
--- OUTSIDE RECORDS SUMMARY | 2022-06-20 12:49 | XMS_ITS | Encounter Summary ---
:1955 Author Organization [facility] Address [address] [place] [address] Care Team Providers Name Role Phone Unavailable Primary Care Provider Unavailable Encounter Details Date Type Department Care Team Description 08/24/[address] [facility] Yulissa Ruffin APRN, C.N.P. [address] [phone] (Wo rk) Social History Tobacco Use [...] How often do you attend mu-ism or congregation More than 4 time s [...] Heath Del Real APRN, C.N.P. [address] [place] [address] [phone] (Wo rk) documented as of this encounter Visit Diagnoses Not on filedocumented in this encounter
--- OUTSIDE RECORDS SUMMARY | 2022-06-20 12:49 | XMS_ITS | Encounter Summary ---
:1955 Author Organization [facility] Address [address] [place] [address] Care Team Providers Name Role Phone Unavailable Primary Care Provider Unavailable Encounter Details Date Type Department Care Team Description 04/05/2006 Hospital Encounter [facility] PODIATRY Ana Felix D.P.M. [address] [place] [phone] (Wo rk) Social History Tobacco Use [...] How often do you attend orthodoxy or yazidi More than 4 time s [...] Heath Del Real APRN, C.N.P. [address] [place] [address] [phone] (Wo rk) documented as of this encounter Visit Diagnoses Not on filedocumented in this encounter
--- OUTSIDE RECORDS SUMMARY | 2022-06-20 12:49 | XMS_ITS | Encounter Summary ---
:1955 Author Organization [facility] Address [address] [place] [address] Care Team Providers Name Role Phone Unavailable Primary Care Provider Unavailable Encounter Details Date Type Department Care Team Description 08/11/2005 Hospital Encounter [facility]X [facility] PODIATRY Ana Felix D.P.M. [address] [place] [phone] (Wo rk) Social History Tobacco Use [...] often do you attend oriental orthodox or worship More than 4 time s [...] Saucedo, Loan.P.M. - 08/11/2005 11:00 AM CST [id number] SUBJECTIVE: Colleen is a 50 year old [...] and bilateral metatarsal pads. Prescription sent to [place]. Assessmentfor Colleen will be ongoing with changes [...] understanding to information discussed this visit. Source: [facility] RWHXTRANSXRTFSYS Document Id: [id number] Electronically signed by Conversion, [facility] Factory Superintendent [id number] at 01/22/2017 9:09 PM CDT documented in this encounter Plan of Treatment Upcoming Encounters Date Type Specialty Care Team Description 07/05/2022 Appointment Radiology Post, Heath Del Real APRN, C.N.P. [address] [place] [phone] (Wo rk) documented as of this encounter Visit Diagnoses Not on filedocumented in this encounter
--- OUTSIDE RECORDS SUMMARY | 2022-06-20 12:49 | XMS_ITS | Encounter Summary ---
:1955 Author Organization [facility] Address [address] [place] [address] Care Team Providers Name Role Phone Unavailable [...] How often do you attend judaism or holiness More than 4 time s [...] Provider Ser - 02/23/2004 12:00 AM CDT [id number] Abstracted by NATALY Suction Drum Drier Operator on 02/25/2004 [facility] [place] [phone], YVONNE : 53Medical Record Number: [id number] Number: SSSMattcyrus Georges M.D.02/23/04 PROCEDURE/OPERATIVE REPORTPREOPERATIVE DIAGNOSIS:Symptomatic [...] condition having tolerate d surgery well.Sanjay Georges M.D./dahD: 02/23/04T: 02/24/04 Source: [facility] RWHXTRANSXSYS Document Id: [id number] documented in this encounter Plan of Treatment Upcoming Encounters Date Type Specialty Care Team Description 07/05/2022 Appointment Radiology Post, Heath Del Real APRN, C.N.P. [address] [place] [address] [phone] (Wo rk) documented as of this encounter Visit Diagnoses Not on filedocumented in this encounter
--- OUTSIDE RECORDS SUMMARY | 2022-06-20 12:49 | XMS_ITS | Encounter Summary ---
:1955 Author Organization [facility] Address [address] [place] [address] Care Team Providers Name Role Phone Unavailable Primary Care Provider Unavailable Encounter Details Date Type Department Care Team Description 12/20/2006 Hospital En[facility] XRAY Provider, Histori [...] How often do you attend congregational or alevism More than 4 time s [...] of this encounter Progress Notes Yulissa Finn C.N.PNaomi, R.N. - 12/20/2006 9:00 AM CDT [id number] Quick Note: Mira puentes sent Source: [facility] Document Id: [id number] Electronically signed by Conversion, [facility] Senior Marketing Data Analyst [id number] at 01/22/2017 6:32 AM CDT documented in this encounter Plan of Treatment Upcoming Encounters Date Type Specialty Care Team Description 07/05/2022 Appointment Radiology Post, Hetah Del Real APRN, C.N.P. [address] [place], [place] [address] [phone] (Wo rk) documented as of this encounter Visit Diagnoses Not on filedocumented in this encounter
--- OUTSIDE RECORDS SUMMARY | 2022-06-20 12:49 | XMS_ITS | Encounter Summary ---
:1955 Author Organization [facility] Address [address] [place] [address] Care Team Providers Name Role Phone Unavailable Primary Care Provider Unavailable Encounter Details Date Type Department Care Team Description 03/14/2004 Hospital Encounter [facility] ORTHO Sanjay Georges M .D. [...] How often do you attend congregation or catholic More than 4 time s [...] Provider Ser - 03/14/2004 11:30 AM CDT [id number] Addended by: PANDA CALDWELL on: 03/21/2004,1:47 PM Comment: Eyelet Riveter.Modules accepted: Amarilis tomlinson NotesThe individual returns for [...] basis. Sanjay Georges M.D./rvD: 03/16/2004T: 03/21/2004 Source: [facility] RWHXTRANSXSYS Document Id: [id number] documented in this encounter Plan of Treatment Upcoming Encounters Date Type Specialty Care Team Description 07/05/2022 Appointment Radiology Post, Heath Del Real APRN, C.N.P. [address] [place] [phone] (Wo rk) documented as of this encounter Visit Diagnoses Not on filedocumented in this encounter
--- OUTSIDE RECORDS SUMMARY | 2022-06-20 12:49 | XMS_ITS | Encounter Summary ---
:1955 Author Organization [facility] Address [address] [place] [address] Care Team Providers Name Role Phone Unavailable Primary Care Provider Unavailable Encounter Details Date Type Department Care Team Description 07/11/2005 Hospital Encounter [facility] Yulissa Lopez, OSMANI N, C.N.P. [address] [place], [place] [phone] (Wo rk) Social History [...] How often do you attend tenriism or christianity More than 4 time s [...] C.N.P., R.N. - 07/11/2005 11:15 AM CST [id number] Colleen is a 50 year old postmenopausal woman here for her annual exam. She has been menopausal sinceage 45. She is not on HRT. She would like to continue with this plan. She denies any vaginal bleeding. Colleen is sexually active with her and denies dyspareunia. She denies problems with incontinence. Her bowels are regular . Adopted 2 boys from [facility] [employer] [facility], works 1 day/week in [employer]. For exercise, shegoes to [employer] and walks. She takes vitamins. 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 Source: [facility] Document Id: [id number] documented in this encounter Miscellaneous Notes Miscellaneous - Conversion, Historical Provider Ser - 07/11/2005 11:15 AM PATHOLOGIST ASSISTANT [id number] Colleen Tolentino [id number] [place] [phone] July 17, 2005 Dear Colleen Tolentino, I am happy to inform you that your recent cervical cancer screening test (PAP smear) was normal. Preventative screening such as this helps insure your health for years to come. Congratulations for taking care of yourself! Please contact my office if you have any further questions. [phone]. Sincerely, Yulissa Finn RN, OPTICAL MODEL MAKER AND TESTER OBSTETRICS/GYNECOLOGY [facility] Source: [facility] Document Id: [id number] Miscellaneous - Yulissa Finn C.NNaomiP., R.N. - 07/11/2005 11:15 AM CST [id number] Colleen Tolentino [address] [place] [phone] July 18, 2005 [id number] Dear Ms. Tolentino: I am writing to [...] or problems, please contact our office at [phone]. Sincerely, Yulissa Finn RN, OPTICAL MODEL MAKER AND TESTER Obstetrics and Gynecology Department [facility] Source: [facility] Document Id: [id number] documented in this encounter Plan of Treatment Upcoming Encounters Date Type Specialty Care Team Description 07/05/2022 Appointment Radiology Post, Heath Del Real APRN, C.N.P. [address] [place] [address] [phone] (Wo rk) documented as of this encounter Visit Diagnoses Not on filedocumented in this encounter
--- OUTSIDE RECORDS SUMMARY | 2022-06-20 12:49 | XMS_ITS | Encounter Summary ---
:1955 Author Organization [facility] Address [address] [place] [address] Care Team Providers Name Role Phone Unavailable Primary Care Provider Unavailable Encounter Details Date Type Department Care Team Description 12/11/2006 Hospital Encounter [facility] Yulissa Lopez, OSMANI N, C.N.P. [address] [place], [place] [phone] (Wo rk) Social History [...] How often do you attend faith or denominational More than 4 time s [...] Heath Del Real APRN, C.N.P. [address] [place] [address] [phone] (Wo rk) documented as of this encounter Visit Diagnoses Not on filedocumented in this encounter
--- OUTSIDE RECORDS SUMMARY | 2022-06-20 12:49 | XMS_ITS | Encounter Summary ---
:1955 Author Organization [facility] Address [address] [place] [address] Care Team Providers Name Role Phone Unavailable Primary Care Provider Unavailable Encounter Details Date Type Department Care Team Description 11/21/2006 Hospital Encounter [facility] Yulissa Lopez, OSMANI N, C.N.P. [address] [place], [place] [phone] (Wo rk) Social History [...] How often do you attend druze or pentecostalism More than 4 time s [...] C.N.P., R.N. - 11/21/2006 10:45 AM CDT [id number] Colleen presents today with c/o L breast pain off and on for 1 month. Today the paint was accompaniedby a stinging or zinger feeling going down her L arm. She does have a family h/o breast cancer andwanted to come in today for evaluation. Denies caffeine use, hormone use. She has started going to [employer] as of the past few months, otherwise [...] for patient, will have done today. Source: [facility] RWHXTRANSXRTFSYS Document Id: [id number] documented in this encounter Plan of Treatment Upcoming Encounters Date Type Specialty Care Team Description 07/05/2022 Appointment Radiology Post, Heath Del Real APRN, C.N.P. [address] [place] [address] [phone] (Wo rk) documented as of this encounter Visit Diagnoses Not on filedocumented in this encounter
--- OUTSIDE RECORDS SUMMARY | 2022-06-20 12:49 | XMS_ITS | Encounter Summary ---
:[address] [facility] Address [address] [place] [address] Care Team Providers Name Role Phone Unavailable Primary Care Provider Unavailable Encounter Details Date Type Department Care Team Description 08/24/2004 Hospital Encounter [facility]X [facility] Yulissa Lopez, OSMANI N, C.N.P. [address] [place], [place] [phone] (Wo rk) Social History [...] How often do you attend congregational or hinduism More than 4 time s [...] this encounter Miscellaneous Notes Miscellaneous - Yulissa Finn, C.N.P., R.N. - 08/24/2004 12:00 AM CST [id number] Date: 08/24/2004 Name: Colleen Tolentino Birthdate: 1955 Soc.Sec.No: [id number] Colleen, Our records show you were due to have your cholesterol level checked in July. Please let me knowif you are still interested in having this done and I will renew the order for you. Thanks. Yulissa Finn RN, EHS TEACHER OBSTETRICS/GYNECOLOGY [facility] Source: [facility] Document Id: [id number] Electronically signed by Conversion, [facility] Marble Machine Operator [id number] at 01/22/2017 6:27 PM CDT documented in this encounter Plan of Treatment Upcoming Encounters Date Type Specialty Care Team Description 07/05/2022 Appointment Radiology Post, Heath Del Real APRN, C.N.P. [address] [place], [place] [address] [phone] (Wo rk) documented as of this encounter Visit Diagnoses Not on filedocumented in this encounter
--- OUTSIDE RECORDS SUMMARY | 2022-06-20 12:49 | XMS_ITS | Encounter Summary ---
:1955 Author Organization [facility] Address [address] [place] [address] Care Team Providers Name Role Phone Unavailable Primary Care Provider Unavailable Encounter Details Date Type Department Care Team Description 05/08/2006 Hospital Encounter HX [facility] Yulissa Lopez, OSMANI N, C.N.P. [address] [place], [place] [phone] (Wo rk) Social History [...] How often do you attend confucianist or synagogue More than 4 time s [...] Post, Heath Del Real APRN, C.N.P. [address] [place] [address] [phone] (Wo rk) documented as of this encounter Visit Diagnoses Not on filedocumented in this encounter
--- OUTSIDE RECORDS SUMMARY | 2022-06-20 12:49 | XMS_ITS | Encounter Summary ---
:1955 Author Organization [facility] Address [address] [place] [address] Care Team Providers Name Role Phone Unavailable Primary Care Provider Unavailable Encounter Details Date Type Department Care Team Description 11/21/2006 Hospital Encounter HX NO MAPPING Yulissa Finn APRN, C.N.P. [address] [place], [place] [phone] (Wo rk) Social History [...] How often do you attend faith or alevism More than 4 time s [...] Heath Del Real APRN, C.N.P. [address] [place] [address] [phone] (Wo rk) documented as of this encounter Visit Diagnoses Not on filedocumented in this encounter
--- OUTSIDE RECORDS SUMMARY | 2022-06-20 12:49 | XMS_ITS | Encounter Summary ---
:1955 Author Organization [facility] Address [address] [place] [address] Care Team Providers Name Role Phone Unavailable Primary Care Provider Unavailable Encounter Details Date Type Department Care Team Description 12/11/2006 Hospital Encounter [facility]X [facility] Yulissa Lopez, OSMANI N, C.N.P. [address] [place], [place] [phone] (Wo rk) Social History [...] How often do you attend anglican or scientology More than 4 time s [...] C.N.P., RMary - 12/11/2006 9:00 AM CDT [id number] Quick Note: Mira puentes sent Source: [facility] Document Id: [id number] Yulissa Finn C.N.P., [place] - 12/11/2006 9:00 AM CDT [id number] Colleen is a 51 year old postmenopausal woman here for her annual exam. She has been menopausal sinceage 42. She is not on HRT. She would like to continue with this plan. She denies any vaginal bleeding. Colleen is sexually active with her and denies dyspareunia. She denies problems with incontinence. Her bowels are regular . For exercise, she goes to [employer] regularly. She takes multi vitamins. 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 Source: [facility] Document Id: [id number] Electronically signed by Lizeth [facility]it[facility] [id number] at 01/22/2017 7:56 AM CDT documented in this encounter Plan of Treatment Upcoming Encounters Date Type Specialty Care Team Description 07/05/2022 Appointment Radiology Post, Heath Del Real APRN, C.N.P. [address] [place] [address] [phone] (Wo rk) documented as of this encounter Visit Diagnoses Not on filedocumented in this encounter
--- OUTSIDE RECORDS SUMMARY | 2022-06-20 12:49 | XMS_ITS | Encounter Summary ---
:1955 Author Organization [facility] Address [address] [place] [address] Care Team Providers Name Role Phone Unavailable Primary Care Provider Unavailable Encounter Details Date Type Department Care Team Description 10/22/2006 Hospital Encounter HX NO MAPPING Yulissa Finn APRN, C.N.P. [address] [place], [place] [phone] (Wo rk) Social History [...] How often do you attend amish or hindu More than 4 time s [...] Post, Heath Del Real APRN, C.N.P. [address] [place] [phone] (Wo rk) documented as of this encounter Visit Diagnoses Not on filedocumented in this encounter
--- OUTSIDE RECORDS SUMMARY | 2022-06-20 12:49 | XMS_ITS | Encounter Summary ---
:1955 Author Organization [facility] Address [address] [place] [address] Care Team Providers Name Role Phone Unavailable Primary Care Provider Unavailable Encounter Details Date Type Department Care Team Description 07/20/2005 Hospital Encounter HX NO MAPPING Yulissa Finn APRN, C.N.P. [address] [place], [place] [phone] (Wo rk) Social History [...] How often do you attend alevism or caodaism More than 4 time s [...] Post, Heath Del Real APRN, C.N.P. [address] [place] [phone] (Wo rk) documented as of this encounter Visit Diagnoses Not on filedocumented in this encounter
--- OUTSIDE RECORDS SUMMARY | 2022-06-20 12:49 | XMS_ITS | Encounter Summary ---
:1955 Author Organization [facility] Address [address] [place] [address] Care Team Providers Name Role Phone Unavailable Primary Care Provider Unavailable Encounter Details Date Type Department Care Team Description 03/03/2004 Hospital Encounter HX [facility] Provider, Histor ical Social History Tobacco [...] How often do you attend evangelical or congregation More than 4 time s [...] Heath Del Real APRN, C.N.P. [address] [place] [address] [phone] (Wo rk) documented as of this encounter Visit Diagnoses Not on filedocumented in this encounter
--- OUTSIDE RECORDS SUMMARY | 2022-06-20 12:50 | XMS_ITS | Encounter Summary ---
:1955 Author Organization [facility] Address [address] [place] [address] Care Team Providers Name Role Phone Unavailable Primary Care Provider Unavailable Encounter Details Date Type Department Care Team Description 11/04/2002 Hospital Encounter [facility] DERM Provider, Histori reilly Social [...] How often do you attend hoahaoism or worship More than 4 time s [...] Heath Del Real APRN, C.N.P. [address] [place] [address] [phone] (Wo rk) documented as of this encounter Visit Diagnoses Not on filedocumented in this encounter
--- OUTSIDE RECORDS SUMMARY | 2022-06-20 12:50 | XMS_ITS | Encounter Summary ---
:1955 Author Organization [facility] Address [address] [place] [address] Care Team Providers Name Role Phone Unavailable Primary Care Provider Unavailable Encounter Details Date Type Department Care Team Description 09/02/2003 Hospital Encounter HX [facility] Provider, Hi storical Social History Tobacco Use Types Packs/Day [...] How often do you attend worship or hoahaoism More than 4 time s [...] Heath Del Real APRN, C.N.P. [address] [place] [address] [phone] (Wo rk) documented as of this encounter Visit Diagnoses Not on filedocumented in this encounter
--- OUTSIDE RECORDS SUMMARY | 2022-06-20 12:50 | XMS_ITS | Encounter Summary ---
:1955 Author Organization [facility] Address [address] [place] [address] Care Team Providers Name Role Phone Unavailable [...] How often do you attend pentecostalism or zoroastrian More than 4 time s [...] Heath Del Real APRN, C.N.P. [address] [place] [address] [phone] (Wo rk) documented as of this encounter Visit Diagnoses Not on filedocumented in this encounter
--- OUTSIDE RECORDS SUMMARY | 2022-06-20 12:50 | XMS_ITS | Encounter Summary ---
:1955 Author Organization [facility] Address [address] [place] [address] Care Team Providers Name Role Phone Unavailable [...] often do you attend jehovah's witness or anglican More than 4 time s [...] Provider Ser - 02/11/2004 12:00 AM CDT [id number] MEDICAL RECORD RELEASE TO [employer] [address] [place] [address] CLINIC NOTES 03/20 TO P RESENT RETRIEVAL 13.79 COPIES TAX 2.74 Source: [facility] Document Id: [id number] documented in this encounter Plan of Treatment Upcoming Encounters Date Type Specialty Care Team Description 07/05/2022 Appointment Radiology Post, Heath Del Real APRN, C.N.P. [address] [place] [address] [phone] (Wo rk) documented as of this encounter Visit Diagnoses Not on filedocumented in this encounter
--- OUTSIDE RECORDS SUMMARY | 2022-06-20 12:50 | XMS_ITS | Encounter Summary ---
:1955 Author Organization [facility] Address [address] [place] [address] Care Team Providers Name Role Phone Unavailable Primary Care Provider Unavailable Encounter Details Date Type Department Care Team Description 12/26/2002 Hospital Encounter [facility]X [facility] Geovani Aj M.D. 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 Rubio of [facility], who initially thought she might have [...] further. Juan Aj M.D./mpD: 12/26/02T: 12/30/02 Source: [facility] RWHXTRANSXSYS Document Id: [id number] documented in this encounter Plan of Treatment Upcoming Encounters Date Type Specialty Care Team Description 07/05/2022 Appointment Radiology Post, Heath Del Real APRN, C.N.P. [address] [place] [address] [phone] (Wo rk) documented as of this encounter Visit Diagnoses Not on filedocumented in this encounter
--- OUTSIDE RECORDS SUMMARY | 2022-06-20 12:50 | XMS_ITS | Encounter Summary ---
:1955 Author Organization [facility] Address [address] [place] [address] Care Team Providers Name Role Phone Unavailable Primary Care Provider Unavailable Encounter Details Date Type Department Care Team Description 07/08/2002 Hospital Encounter [facility] Provider, His torical Social History [...] How often do you attend yazidism or oriental orthodox More than 4 time [...] Provider Ser - 07/08/2002 9:30 AM CST [id number] Addended by: CORY VAZ on: 07/14/2002,12:47 PMModules accepted: Order Summary, Progress NotesYv germain Tolentino presents to clinic for turkey picker of orthotics. Colleen states her feet [...] with any pr oblems or questions. Source: [facility] RWHXTRANSXSYS Document Id: [id number] documented in this encounter Plan of Treatment Upcoming Encounters Date Type Specialty Care Team Description 07/05/2022 Appointment Radiology Post, Heath Del Real APRN, C.N.P. [address] [place] [phone] (Wo rk) documented as of this encounter Visit Diagnoses Not on filedocumented in this encounter
--- OUTSIDE RECORDS SUMMARY | 2022-06-20 12:50 | XMS_ITS | Encounter Summary ---
:1955 Author Organization [facility] Address [address] [place] [address] Care Team Providers Name Role Phone Unavailable Primary Care Provider Unavailable Encounter Details Date Type Department Care Team Description 11/14/2002 Hospital Encounter HX [facility] Provider, [...] How often do you attend jain or methodist More than 4 time s [...] Provider Ser - 11/14/2002 12:00 AM CST [id number] >> MARKIE Taylor Nov 14, 2002 10:57 AM >> CALL RECEIVED. Contact: I called her, went over the path report. She has an appt with her Derm MD in 10 days or so, says the hand condition is getting better. Source: [facility] Document Id: [id number] documented in this encounter Plan of Treatment Upcoming Encounters Date Type Specialty Care Team Description 07/05/2022 Appointment Radiology Post, Heath Del Real APRN, C.N.P. [address] [place] [address] [phone] (Wo rk) documented as of this encounter Visit Diagnoses Not on filedocumented in this encounter
--- OUTSIDE RECORDS SUMMARY | 2022-06-20 12:50 | XMS_ITS | Encounter Summary ---
:1955 Author Organization [facility] Address [address] [place] [address] Care Team Providers Name Role Phone Unavailable Primary Care Provider Unavailable Encounter Details Date Type Department Care Team Description 11/07/2002 Hospital Encounter HX [facility] Provider, [...] How often do you attend mosque or synagogue More than 4 time s [...] Provider Ser - 11/07/2002 11:00 AM CST [id number] Came in for punch biopsy. Has psoriasis [...] can have one of the nurses in [facility] remove it, where Tiago hansen works. Source: [facility] Document Id: [id number] documented in this encounter Plan of Treatment Upcoming Encounters Date Type Specialty Care Team Description 07/05/2022 Appointment Radiology Post, Heath Del Real APRN, C.N.P. [address] [place], [place] [address] [phone] (Wo rk) documented as of this encounter Visit Diagnoses Not on filedocumented in this encounter
--- OUTSIDE RECORDS SUMMARY | 2022-06-20 12:50 | XMS_ITS | Encounter Summary ---
:1955 Author Organization [facility] Address [address] [place] [address] Care Team Providers Name Role Phone Unavailable Primary Care Provider Unavailable Encounter Details Date Type Department Care Team Description 01/07/2003 Hospital Encounter [facility]X [facility]IC Geovani Aj M.D. [address] [place] [phone] (Wo rk) Social History Tobacco [...] How often do you attend orthodoxy or judaism More than 4 time s [...] Provider Ser - 01/07/2003 1:30 PM CDT [id number] The patient is seen today for application of T.R.U.E TEST patches. Will return in 24h for removal an d reading. Source: [facility] Document Id: [id number] documented in this encounter Plan of Treatment Upcoming Encounters Date Type Specialty Care Team Description 07/05/2022 Appointment Radiology Post, Heath Del Real APRN, C.N.P. [address] [place] [address] [phone] (Wo rk) documented as of this encounter Visit Diagnoses Not on filedocumented in this encounter
--- OUTSIDE RECORDS SUMMARY | 2022-06-20 12:50 | XMS_ITS | Encounter Summary ---
:1955 Author Organization [facility] Address [address] [place] [address] Care Team Providers Name Role Phone Unavailable [...] How often do you attend anabaptist or rastafarian More than 4 time s [...] Post, Heath Del Real APRN, C.N.P. [address] [place] [address] [phone] (Wo rk) documented as of this encounter Visit Diagnoses Not on filedocumented in this encounter
--- OUTSIDE RECORDS SUMMARY | 2022-06-20 12:50 | XMS_ITS | Encounter Summary ---
:1955 Author Organization [facility] Address [address] [place] [address] Care Team Providers Name Role Phone Unavailable Primary Care Provider Unavailable Encounter Details Date Type Department Care Team Description 12/01/2002 Hospital Encounter HX [facility] Provider, [...] How often do you attend restorationist or jehovah's witness More than 4 time [...] Heath Del Real APRN, C.N.P. [address] [place] [address] [phone] (Wo rk) documented as of this encounter Visit Diagnoses Not on filedocumented in this encounter
--- OUTSIDE RECORDS SUMMARY | 2022-06-20 12:50 | XMS_ITS | Encounter Summary ---
:1955 Author Organization [facility] Address [address] [place] [address] Care Team Providers Name Role Phone Unavailable Primary Care Provider Unavailable Encounter Details Date Type Department Care Team Description 05/26/2002 Hospital Encounter [facility] Provider, Historic al Social History [...] How often do you attend synagogue or episcopal More than 4 time s [...] Post, Heath Del Real APRN, C.N.P. [address] [place] [address] [phone] (Wo rk) documented as of this encounter Visit Diagnoses Not on filedocumented in this encounter
--- OUTSIDE RECORDS SUMMARY | 2022-06-20 12:50 | XMS_ITS | Encounter Summary ---
:1955 Author Organization [facility] Address [address] [place] [address] Care Team Providers Name Role Phone Unavailable Primary Care Provider Unavailable Encounter Details Date Type Department Care Team Description 06/04/2002 Hospital Encounter HX [facility] Provider, [...] How often do you attend yarsani or episcopalian More than 4 time s [...] Provider Ser - 06/04/2002 12:00 AM CDT [id number] >> MARKIE CHILDRESS Wed Jun 04, 2002 12:49 PM >> CALL RECEIVED. Contact: I called, left message re the chol, and pap. Source: [facility] Document Id: [id number] documented in this encounter Plan of Treatment Upcoming Encounters Date Type Specialty Care Team Description 07/05/2022 Appointment Radiology Post, Heath Del Real APRN, C.N.P. [address] [place] [phone] (Wo rk) documented as of this encounter Visit Diagnoses Not on filedocumented in this encounter
--- OUTSIDE RECORDS SUMMARY | 2022-06-20 12:50 | XMS_ITS | Encounter Summary ---
:1955 Author Organization [facility] Address [address] [place] [address] Care Team Providers Name Role Phone Unavailable Primary Care Provider Unavailable Encounter Details Date Type Department Care Team Description 10/02/2002 Hospital Encounter [facility] DERM Provider, Histori reilly Social [...] How often do you attend hinduism or episcopalian More than 4 time s [...] Heath Del Real APRN, C.N.P. [address] [place] [address] [phone] (Wo rk) documented as of this encounter Visit Diagnoses Not on filedocumented in this encounter
--- OUTSIDE RECORDS SUMMARY | 2022-06-20 12:50 | XMS_ITS | Encounter Summary ---
:1955 Author Organization [facility] Address [address] [place] [address] Care Team Providers Name Role Phone Unavailable Primary Care Provider Unavailable Encounter Details Date Type Department Care Team Description 02/15/2004 Hospital Encounter [facility]X [facility] Sanjay Georges M .D. 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 Tommy Georges M.D./rvD: 02/17/2004T: 02/19/2004 Source: [facility] RWHXTRANSXSYS Document Id: [id number] documented in this encounter Plan of Treatment Upcoming Encounters Date Type Specialty Care Team Description 07/05/2022 Appointment Radiology Post, Heath Del Real APRN, C.N.P. [address] [place] [address] [phone] (Wo rk) documented as of this encounter Visit Diagnoses Not on filedocumented in this encounter
--- OUTSIDE RECORDS SUMMARY | 2022-06-20 12:50 | XMS_ITS | Encounter Summary ---
:1955 Author Organization [facility] Address [address] [place] [address] Care Team Providers Name Role Phone Unavailable Primary Care Provider Unavailable Encounter Details Date Type Department Care Team Description 01/20/2004 Hospital Encounter [facility] Provider, Histor ical Social [...] How often do you attend alevism or mu-ism More than 4 time s [...] Provider Ser - 01/20/2004 10:15 AM CDT [id number] Colleen is a 48 year old postmenopausal [...] years have adopte d 2 boys from [facility], they are 22 months and 10 months. For exercise, she has been walking. She is aware that her lipids are high and she is also starting a new diet to try to lose weight, wants to lose 25#, so would like her cholesterol rechecked in Jul. She takes vitamins. Her calcium intake is adequate. She does not have mood concerns. 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 happy pap sent Source: [facility] Document Id: [id number] documented in this encounter Miscellaneous Notes Miscellaneous - Conversion, Historical Provider Ser - 01/20/2004 10:15 AM CDT [id number] Colleen Tolentino [address] [place] [phone] January 26, 2004 Dear Colleen Tolentino, I am happy to inform you that your recent cervical cancer screening test (PAP smear) was normal. Preventative screening such as this helps insure your health for years to come. Congratulations for taking care of yourself! Please contact my office if you have any further questions. [phone]. Sincerely, Thuy Agarwal C.N.P OBSTETRICS/GYNECOLOGY [facility] Source: [facility] Document Id: [id number] documented in this encounter Plan of Treatment Upcoming Encounters Date Type Specialty Care Team Description 07/05/2022 Appointment Radiology Post, Heath Del Real APRN, C.N.P. [address] [place] [address] [phone] (Wo rk) documented as of this encounter Visit Diagnoses Not on filedocumented in this encounter
--- OUTSIDE RECORDS SUMMARY | 2022-06-20 12:50 | XMS_ITS | Encounter Summary ---
:1955 Author Organization [facility] Address [address] [place] [address] Care Team Providers Name Role Phone Unavailable Primary Care Provider Unavailable Encounter Details Date Type Department Care Team Description 02/18/2004 Hospital Encounter [facility] Provider, [facility] Social History Tobacco Use Types Packs/Day Years [...] How often do you attend druze or oriental orthodox More than 4 time [...] Post, Heath Del Real APRN, C.N.P. [address] [place] [address] [phone] (Wo rk) documented as of this encounter Visit Diagnoses Not on filedocumented in this encounter
--- OUTSIDE RECORDS SUMMARY | 2022-06-20 12:50 | XMS_ITS | Encounter Summary ---
:1955 Author Organization [facility] Address [address] [place] [address] Care Team Providers Name Role Phone Unavailable Primary Care Provider Unavailable Encounter Details Date Type Department Care Team Description 02/19/2004 Hospital Encounter [facility] Provider, [facility] Social History Tobacco Use Types Packs/Day Years [...] How often do you attend zoroastrianism or catholic More than 4 time s [...] Provider Ser - 02/19/2004 9:30 AM CDT [id number] Date of Surgery: 02/23/04Type of Anticipated Surgery: [...] yesMD Signatu re: Deyanira Weaver M.D . [facility] Source: [facility] RWHXTRANSXSYS Document Id: [id number] documented in this encounter Plan of Treatment Upcoming Encounters Date Type Specialty Care Team Description 07/05/2022 Appointment Radiology Post, Heath Del Real APRN, C.N.P. [address] [place] [address] [phone] (Wo rk) documented as of this encounter Visit Diagnoses Not on filedocumented in this encounter
--- OUTSIDE RECORDS SUMMARY | 2022-06-20 12:50 | XMS_ITS | Encounter Summary ---
:1955 Author Organization [facility] Address [address] [place] [address] Care Team Providers Name Role Phone Unavailable Primary Care Provider Unavailable Encounter Details Date Type Department Care Team Description 02/26/2003 Hospital Encounter [facility] POD[facility] Provider, His torical Social History [...] How often do you attend uatsdin or samaritan More than 4 time s [...] Heath Del Real APRN, C.N.P. [address] [place] [address] [phone] (Wo rk) documented as of this encounter Visit Diagnoses Not on filedocumented in this encounter
--- OUTSIDE RECORDS SUMMARY | 2022-06-20 12:50 | XMS_ITS | Encounter Summary ---
:1955 Author Organization [facility] Address [address] [place] [address] Care Team Providers Name Role Phone Unavailable Primary Care Provider Unavailable Encounter Details Date Type Department Care Team Description 09/26/2002 Hospital Encounter [facility] Provider, [...] How often do you attend methodist or spiritism More than 4 time s [...] Heath Del Real APRN, C.N.P. [address] [place] [address] [phone] (Wo rk) documented as of this encounter Visit Diagnoses Not on filedocumented in this encounter
--- OUTSIDE RECORDS SUMMARY | 2022-06-20 12:50 | XMS_ITS | Encounter Summary ---
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 Source: [facility] RWHXTRANSXSYS Document Id: [id number] documented in this encounter Plan of Treatment Upcoming Encounters Date Type Specialty Care Team Description 07/05/2022 Appointment Radiology Post, Heath Del Real APRN, C.N.P. [address] [place], [place] [address] [phone] (Wo rk) documented as of this encounter Visit Diagnoses Not on filedocumented in this encounter
--- OUTSIDE RECORDS SUMMARY | 2022-06-20 12:50 | XMS_ITS | Encounter Summary ---
:1955 Author Organization [facility] Address [address] [place] [address] Care Team Providers Name Role Phone Unavailable [...] How often do you attend catholic or cheondoism More than 4 time s [...] Heath Del Real APRN, C.N.P. [address] [place] [address] [phone] (Wo rk) documented as of this encounter Visit Diagnoses Not on filedocumented in this encounter
--- OUTSIDE RECORDS SUMMARY | 2022-06-20 12:50 | XMS_ITS | Encounter Summary ---
:1955 Author Organization [facility] Address [address] [place] [address] Care Team Providers Name Role Phone Unavailable Primary Care Provider Unavailable Encounter Details Date Type Department Care Team Description 01/08/2003 Hospital Encounter [facility] INTERNMED Geovani Aj M.D. [address] [place] [phone] (Wo rk) Social History Tobacco [...] How often do you attend zoroastrian or shinto More than 4 time s [...] Provider Ser - 01/08/2003 1:00 PM CDT [id number] The patient is seen today in [facility] for removal of her patch tests. After removal there ap peared to be no reactions except for some mild gen redness under the tape. Will return in 48h for fi nal reading. Source: [facility] RWHXTRANSXSYS Document Id: [id number] documented in this encounter Plan of Treatment Upcoming Encounters Date Type Specialty Care Team Description 07/05/2022 Appointment Radiology Post, Heath Del Real APRN, C.N.P. [address] [place] [address] [phone] (Wo rk) documented as of this encounter Visit Diagnoses Not on filedocumented in this encounter
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
--- OUTSIDE RECORDS SUMMARY | 2022-06-20 12:50 | XMS_ITS | Encounter Summary ---
:1955 Author Organization [facility] Address [address] [place] [address] Care Team Providers Name Role Phone Unavailable Primary Care Provider Unavailable Encounter Details Date Type Department Care Team Description 06/03/2002 Hospital Encounter [facility] EHW Provider, Historic al Social [...] How often do you attend confucianist or orthodoxy More than 4 time s [...] Provider Ser - 06/03/2002 12:00 AM CDT [id number] >> COLLEEN Luevano Jun 03, 2002 10:59 AM >> CALL RECEIVED. Contact: opened in error [facility] Document Id: [id number] documented in this encounter Plan of Treatment Upcoming Encounters Date Type Specialty Care Team Description 07/05/2022 Appointment Radiology Post, Heath Del Real APRN, C.N.P. [address] [place], [place] [address] [phone] (Wo rk) documented as of this encounter Visit Diagnoses Not on filedocumented in this encounter
--- OUTSIDE RECORDS SUMMARY | 2022-06-20 12:50 | XMS_ITS | Encounter Summary ---
:1955 Author Organization [facility] Address [address] [place] [address] Care Team Providers Name Role Phone Unavailable Primary Care Provider Unavailable Encounter Details Date Type Department Care Team Description 02/03/[address] [facility] DERM Provider, Histori reilly Social History Tobacco [...] How often do you attend yarsanism or evangelical More than 4 time s [...] Heath Del Real APRN, C.N.P. [address] [place] [address] [phone] (Wo rk) documented as of this encounter Visit Diagnoses Not on filedocumented in this encounter
--- OUTSIDE RECORDS SUMMARY | 2022-06-20 12:50 | XMS_ITS | Encounter Summary ---
:1955 Author Organization [facility] Address [address] [place] [address] Care Team Providers Name Role Phone Unavailable Primary Care Provider Unavailable Encounter Details Date Type Department Care Team Description 02/18/2004 Hospital Encounter [facility] Provider, Historic al Social [...] How often do you attend advent or adventism More than 4 time s [...] Heath Del Real APRN, C.N.P. [address] [place] [address] [phone] (Wo rk) documented as of this encounter Visit Diagnoses Not on filedocumented in this encounter
--- OUTSIDE RECORDS SUMMARY | 2022-06-20 12:50 | XMS_ITS | Encounter Summary ---
:1955 Author Organization [facility] Address [address] [place] [address] Care Team Providers Name Role Phone Unavailable Primary Care Provider Unavailable Encounter Details Date Type Department Care Team Description 11/28/2002 Hospital Encounter [facility] DERM Provider, Histori [...] How often do you attend pentecostalism or episcopalian More than 4 time s [...] Heath Del Real APRN, C.N.P. [address] [place] [address] [phone] (Wo rk) documented as of this encounter Visit Diagnoses Not on filedocumented in this encounter
--- OUTSIDE RECORDS SUMMARY | 2022-06-20 12:50 | XMS_ITS | Encounter Summary ---
:1955 Author Organization [facility] Address [address] [place] [address] Care Team Providers Name Role Phone Unavailable Primary Care Provider Unavailable Encounter Details Date Type Department Care Team Description 01/15/2004 Hospital Encounter [facility] FAMILYPRA Ra kathleen Sharma, P.A.-CNaomi [address] [place] [phone] (Wo rk) Social History Tobacco Use [...] How often do you attend druze or lutheran More than 4 time s [...] Provider Ser - 01/15/2004 1:30 PM CDT [id number] SUBJECTIVE:Colleen is a 48 year old female [...] hin layer of hydrocortisone 1% cautiously. Source: [facility] RWHXTRANSXSYS Document Id: [id number] documented in this encounter Plan of Treatment Upcoming Encounters Date Type Specialty Care Team Description 07/05/2022 Appointment Radiology Post, Heath Del Real APRN, C.N.P. [address] [place] [address] [phone] (Wo rk) documented as of this encounter Visit Diagnoses Not on filedocumented in this encounter
--- OUTSIDE RECORDS SUMMARY | 2022-06-20 12:50 | XMS_ITS | Encounter Summary ---
:1955 Author Organization [facility] Address [address] [place] [address] Care Team Providers Name Role Phone Unavailable Primary Care Provider Unavailable Encounter Details Date Type Department Care Team Description 02/15/2004 Hospital Encounter [facility] Provider, [facility] Social History Tobacco Use Types Packs/Day [...] How often do you attend temple or temple More than 4 time s [...] Heath Del Real APRN, C.N.P. [address] [place] [address] [phone] (Wo rk) documented as of this encounter Visit Diagnoses Not on filedocumented in this encounter
--- OUTSIDE RECORDS SUMMARY | 2022-06-20 12:51 | XMS_ITS | Encounter Summary ---
:1955 Author Organization [facility] Address [address] [place] [address] Care Team Providers Name Role Phone Unavailable Primary Care Provider Unavailable Encounter Details Date Type Department Care Team Description 01/29/2002 Hospital Encounter [facility] Provider, [...] How often do you attend restorationist or pentecostalism More than 4 time s [...] Heath Del Real APRN, C.N.P. [address] [place] [address] [phone] (Wo rk) documented as of this encounter Visit Diagnoses Not on filedocumented in this encounter
--- OUTSIDE RECORDS SUMMARY | 2022-06-20 12:51 | XMS_ITS | Encounter Summary ---
:1955 Author Organization [facility] Address [address] [place] [address] Care Team Providers Name Role Phone Unavailable Primary Care Provider Unavailable Encounter Details Date Type Department Care Team Description 01/30/2002 Hospital Encounter [facility]X [facility] Danya Salinas M.D. [address] [place] [phone] (Wo rk) Social History Tobacco [...] How often do you attend gnosticism or church More than 4 time s [...] Provider Ser - 01/30/2002 12:00 AM CDT [id number] >> COLLEENKARYN TILLMAN [facility] Jan 30, 2002 9:06 AM >> CALL RECEIVED. Contact: Accepting this Rx will FAX it directly to the pharmacy. thank you Danya. Source: [facility] RWHXTRANSXSYS Document Id: [id number] documented in this encounter Plan of Treatment Upcoming Encounters Date Type Specialty Care Team Description 07/05/2022 Appointment Radiology Post, Heath Del Real APRN, C.N.P. [address] [place] [address] [phone] (Wo rk) documented as of this encounter Visit Diagnoses Not on filedocumented in this encounter
--- OUTSIDE RECORDS SUMMARY | 2022-06-20 12:51 | XMS_ITS | Encounter Summary ---
:1955 Author Organization [facility] Address [address] [place] [address] Care Team Providers Name Role Phone Unavailable Primary Care Provider Unavailable Encounter Details Date Type Department Care Team Description 12/17/2001 Hospital Encounter HX [facility] Iraj Haile M.D. [address] [place] [address] Social History Tobacco Use Types Packs/Day [...] How often do you attend adventist or restorationist More than 4 time s [...] Provider Ser - 12/17/2001 11:45 AM CDT [id number] Addended by: CORY VAZ on: 12/25/2001,2:21 PMModules [...] from now.Iraj Mobley M.D./Balbina: 2001T: 12/24/2001 Source: [facility] RWHXTRANSXSYS Document Id: [id number] documented in this encounter Plan of Treatment Upcoming Encounters Date Type Specialty Care Team Description 07/05/2022 Appointment Radiology Post, Heath Del Real APRN, C.N.P. [address] [place] [address] [phone] (Wo rk) documented as of this encounter Visit Diagnoses Not on filedocumented in this encounter
--- OUTSIDE RECORDS SUMMARY | 2022-06-20 12:51 | XMS_ITS | Encounter Summary ---
:1955 Author Organization [facility] Address [address] [place] [address] Care Team Providers Name Role Phone Unavailable Primary Care Provider Unavailable Encounter Details Date Type Department Care Team Description 01/10/2002 Hospital Encounter [facility] Provider, [...] How often do you attend restorationist or samaritan More than 4 time s [...] Post, Heath Del Real APRN, C.N.P. [address] [place] [address] [phone] (Wo rk) documented as of this encounter Visit Diagnoses Not on filedocumented in this encounter
--- OUTSIDE RECORDS SUMMARY | 2022-06-20 12:51 | XMS_ITS | Encounter Summary ---
:1955 Author Organization [facility] Address [address] [place] [address] Care Team Providers Name Role Phone Unavailable Primary Care Provider Unavailable Encounter Details Date Type Department Care Team Description 03/26/2002 Hospital Encounter [facility] Provider, [...] How often do you attend evangelical or mu-ism More than 4 time s [...] Provider Ser - 03/26/2002 12:00 AM CDT [id number] >> MARKIE CHILDRESS Wed Mar 26, 2002 4:10 PM >> CALL RECEIVED. Contact: antoni bush has returned Source: [facility] RWHXTRANSXSYS Document Id: [id number] documented in this encounter Plan of Treatment Upcoming Encounters Date Type Specialty Care Team Description 07/05/2022 Appointment Radiology Post, Heath Del Real APRN, C.N.P. [address] [place] [address] [phone] (Wo rk) documented as of this encounter Visit Diagnoses Not on filedocumented in this encounter
--- OUTSIDE RECORDS SUMMARY | 2022-06-20 12:51 | XMS_ITS | Encounter Summary ---
:1955 Author Organization [facility] Address [address] [place] [address] Care Team Providers Name Role Phone Unavailable Primary Care Provider Unavailable Encounter Details Date Type Department Care Team Description 01/07/2002 Hospital Encounter [facility]X [facility] Iraj Haile M.D. [address] [place] [address] 66 Social History Tobacco Use Types Packs/Day [...] How often do you attend sikh or mosque More than 4 time s [...] Provider Ser - 01/07/2002 11:30 AM CDT [id number] Addended by: ORLIN MUHAMMAD on: 01/10/2002,10:15 AM [...] point. Iraj Mobley M.D./rvD: 2T: 01/10/2002 Source: [facility] RWHXTRANSXSYS Document Id: [id number] documented in this encounter Plan of Treatment Upcoming Encounters Date Type Specialty Care Team Description 07/05/2022 Appointment Radiology Post, Heath Del Real APRN, C.N.P. [address] [place] [phone] (Wo rk) documented as of this encounter Visit Diagnoses Not on filedocumented in this encounter
--- OUTSIDE RECORDS SUMMARY | 2022-06-20 12:51 | XMS_ITS | Encounter Summary ---
:1955 Author Organization [facility] Address [address] [place] [address] Care Team Providers Name Role Phone Unavailable Primary Care Provider Unavailable Encounter Details Date Type Department Care Team Description 01/07/2002 Hospital Encounter [facility] Poonam Almazan ra, RNaomiNNaomi [address] [place], [place] [phone] Social History Tobacco Use [...] How often do you attend zoroastrianism or baptist More than 4 time s [...] Provider Ser - 01/07/2002 12:00 AM CDT [id number] Addended by: CORY VAZ on: 01/08/2002,3:23 PMModules accepted: Order Summarypt had xray done an d air cast was dispensed to pt per dr. wu. Source: [facility] RWHXTRANSXSYS Document Id: [id number] documented in this encounter Plan of Treatment Upcoming Encounters Date Type Specialty Care Team Description 07/05/2022 Appointment Radiology Post, Heath Del Real APRN, C.N.P. [address] [place] [phone] (Wo rk) documented as of this encounter Visit Diagnoses Not on filedocumented in this encounter
--- OUTSIDE RECORDS SUMMARY | 2022-06-20 12:51 | XMS_ITS | Encounter Summary ---
:1955 Author Organization [facility] Address [address] [place] [address] Care Team Providers Name Role Phone Unavailable Primary Care Provider Unavailable Encounter Details Date Type Department Care Team Description 12/17/2001 Hospital Encounter [facility] Poonam Mosley ra, R.N. [address] [place], [place] [phone] Social History Tobacco Use [...] How often do you attend hinduism or mosque More than 4 time s [...] Provider Ser - 12/17/2001 12:00 AM CDT [id number] >> CROW Luevano Dec 17, 2001 12:19 PM >> CALL RECEIVED. Contact: cam walker dispensed to patient per dr. wu for follow up care of left ankle fracture. Source: [facility] RWHXTRANSXSYS Document Id: [id number] documented in this encounter Plan of Treatment Upcoming Encounters Date Type Specialty Care Team Description 07/05/2022 Appointment Radiology Post, Heath Del Real APRN, C.N.P. [address] [place] [address] [phone] (Wo rk) documented as of this encounter Visit Diagnoses Not on filedocumented in this encounter
--- OUTSIDE RECORDS SUMMARY | 2022-06-20 12:52 | XMS_ITS | Encounter Summary ---
:1955 Author Organization [facility] Address [address] [place] [address] Care Team Providers Name Role Phone Unavailable Primary Care Provider Unavailable Encounter Details Date Type Department Care Team Description 11/29/2001 Hospital Encounter [facility] Sanjay Georges M .D. Social [...] How often do you attend bahai or muslim More than 4 time s [...] Provider Ser - 11/29/2001 4:30 PM CDT [id number] Addended by: CORY VAZ on: 12/25/2001,2:19 PMModules accepted: Order Summary, Progress NotesElizabeth LOSAddended by: DERICK GANDHI on: 12/06/2001,8:47 AM Comment: [employer].Modules accepted : Progress NotesColleen Tolentino [phone] 11-29-01The individual presents for follow up of [...] boot. Sanjay Georges M.D./Balbina: 11-29-01T: 12-04-01 Source: [facility] RWHXTRANSXSYS Document Id: [id number] documented in this encounter Plan of Treatment Upcoming Encounters Date Type Specialty Care Team Description 07/05/2022 Appointment Radiology Post, Heath Del Real APRN, C.N.P. [address] [place], [place] [address] [phone] (Wo rk) documented as of this encounter Visit Diagnoses Not on filedocumented in this encounter
--- OUTSIDE RECORDS SUMMARY | 2022-06-20 12:52 | XMS_ITS | Encounter Summary ---
:1955 Author Organization [facility] Address [address] [place] [address] Care Team Providers Name Role Phone Unavailable Primary Care Provider Unavailable Encounter Details Date Type Department Care Team Description 07/15/2001 Hospital Encounter [facility] Ramesh Fuentes M.D. Social History Tobacco Use [...] How often do you attend bahai or mormon More than 4 time s [...] Provider Ser - 07/15/2001 12:00 AM CST [id number] >> RAMESH SUKUMAR Mon Jul 15, 2001 11:11 AM Mehrdad canas >> COLLEENMITRA CHRISTIANJEROD Mon Jul 15, 2001 9:50 AM >> CALL RECEIVED. Contact: Accepting this Rx will FAX it directly to the pharmacy. hot flashes interupting sleep. Source: [facility] Document Id: [id number] documented in this encounter Plan of Treatment Upcoming Encounters Date Type Specialty Care Team Description 07/05/2022 Appointment Radiology Post, Heath Del Real APRN, C.N.P. [address] [place], [place] [address] [phone] (Wo rk) documented as of this encounter Visit Diagnoses Not on filedocumented in this encounter
--- OUTSIDE RECORDS SUMMARY | 2022-06-20 12:52 | XMS_ITS | Encounter Summary ---
:1955 Author Organization [facility] Address [address] [place] [address] Care Team Providers Name Role Phone Unavailable Primary Care Provider Unavailable Encounter Details Date Type Department Care Team Description 11/08/2001 Hospital Encounter [facility] Sanjay Georges M .D. Social [...] often do you attend latter day or muslim More than 4 time s [...] Provider Ser - 11/08/2001 1:30 PM CST [id number] Addended by: CORY VAZ on: 12/25/2001,2:10 PMModules accepted: Order Summary, Progress NotesAdd ended by: BELLA FRANCO on: 11/18/2001,10:32 AM Comment: tranxModules accepted: Progress Notes Colleen Tolentino [phone] 11-08-01The individual is here for a follow [...] repeat x-rays.Sanjay Georges M.D./Balbina: 11-08-01T: 11-15-01 Source: [facility] RWHXTRANSXSYS Document Id: [id number] documented in this encounter Plan of Treatment Upcoming Encounters Date Type Specialty Care Team Description 07/05/2022 Appointment Radiology Post, Heath Del Real APRN, C.N.P. [address] [place] [address] [phone] (Wo rk) documented as of this encounter Visit Diagnoses Not on filedocumented in this encounter
--- OUTSIDE RECORDS SUMMARY | 2022-06-20 12:52 | XMS_ITS | Encounter Summary ---
:1955 Author Organization [facility] Address [address] [place] [address] Care Team Providers Name Role Phone Unavailable Primary Care Provider Unavailable Encounter Details Date Type Department Care Team Description 07/15/2001 Hospital Encounter [facility] Silvia Fuentes M.D. Social History Tobacco Use [...] How often do you attend caodaism or buddhist More than 4 time s [...] Heath Del Real APRN, C.N.P. [address] [place] [phone] (Wo rk) documented as of this encounter Visit Diagnoses Not on filedocumented in this encounter
--- OUTSIDE RECORDS SUMMARY | 2022-06-20 12:52 | XMS_ITS | Encounter Summary ---
:1955 Author Organization [facility] Address [address] [place] [address] Care Team Providers Name Role Phone Unavailable Primary Care Provider Unavailable Encounter Details Date Type Department Care Team Description 11/21/2001 Hospital Encounter [facility] Sanjay Georges M .D. 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 [address] [place] [address] [phone] (Wo rk) documented as of this encounter Visit Diagnoses Not on filedocumented in this encounter
--- OUTSIDE RECORDS SUMMARY | 2022-06-20 12:52 | XMS_ITS | Encounter Summary ---
:1955 Author Organization [facility] Address [address] [place] [address] Care Team Providers Name Role Phone Unavailable [...] How often do you attend rastafarian or latter day More than 4 time [...] Historical Provider Ser - 10/31/2001 12:00 AM HOBBIES AND CRAFTS SALES REPRESENTATIVE [id number] Abstracted by NATALY Merchandise Adjustment Clerk on [address] [place], [place] [id number] [place], [place] [id number] .A. Eich, M.D.[facility]. [facility] Number: [id number], YVONNE : [id number] IONThe individual is an active 46-year-old woman who works at the [employer]. On t he day of admission [...] compressed. She will follow up per plan. MARGARET/[id number]. 12-15-01 Chico Georges M.D. Source: [facility] RWHXTRANSXSYS Document Id: [id number] documented in this encounter Plan of Treatment Upcoming Encounters Date Type Specialty Care Team Description 07/05/2022 Appointment Radiology Post, Heath Del Real APRN, C.N.P. [address] [place] [address] [phone] (Wo rk) documented as of this encounter Visit Diagnoses Not on filedocumented in this encounter
--- OUTSIDE RECORDS SUMMARY | 2022-06-20 12:52 | XMS_ITS | Encounter Summary ---
:1955 Author Organization [facility] Address [address] [place] [address] Care Team Providers Name Role Phone Unavailable [...] How often do you attend pentecostalism or mosque More than 4 time s [...] Historical Provider Ser - 10/30/2001 12:00 AM FINISH MILL OPERATOR [id number] Abstracted by NATALY Supervisor [place] on 11/05/[address] [id number].Jacobo Berry M.D.[facility]. [facility] Number: [id number], YVONNE : [id number] TION/HISTORY AND PHYSICALCHIEF COMPLAINT: Fall with left [...] on the right hand. Status post tonsillectomy. Mobile t ooth extraction. MEDICATIONS: Celebrex 100 mg daily. Aspirin 81 mg daily. She takes Valerian and Brandyn's Wort. ALLERGIES: CEFTIN causing hives and facial swelling. SOCIAL HISTORY: Patient is . 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 She does not smoke or drink [...] with Toradol and Demerol for pain. KIMBERLY/ [id number]. 10-31-01 Elijah Berry M.D. Source: [facility] RWHXTRANSXSYS Document Id: [id number] documented in this encounter Plan of Treatment Upcoming Encounters Date Type Specialty Care Team Description 07/05/2022 Appointment Radiology Post, Heath Del Real APRN, C.N.P. [address] [place] [address] [phone] (Wo rk) documented as of this encounter Visit Diagnoses Not on filedocumented in this encounter
--- OUTSIDE RECORDS SUMMARY | 2022-06-20 12:52 | XMS_ITS | Encounter Summary ---
:1955 Author Organization [facility] Address [address] [place] [address] Care Team Providers Name Role Phone Unavailable [...] How often do you attend mandaeism or jehovah's witness More than 4 time [...] Historical Provider Ser - 11/22/2001 12:00 AM AUDIOMETRIST [id number] Addended by: DONAVAN CONTE on: 12/02/2001,9:50 AMModules accepted: Order Summary, Progress Notes-- Abstracted by NATALY Rooney on 11/29/2001[facility] [place], [place] [id number]. Grabiel orozco M.D.Room No. [id number], YVONNE : 54PROCEDURE/OPERATIVE REPORTPREOP ERATIVE DIAGNOSIS:Left ankle [...] satisfactory condition having tolerated the surgery well. ROBLES:[id number]. 11-26 Zelda Georges M.D. Source: [facility] RWHXTRANSXSYS Document Id: [id number] documented in this encounter Plan of Treatment Upcoming Encounters Date Type Specialty Care Team Description 07/05/2022 Appointment Radiology Post, Heath Del Real APRN, C.N.P. [address] [place] [address] [phone] (Wo rk) documented as of this encounter Visit Diagnoses Not on filedocumented in this encounter
--- OUTSIDE RECORDS SUMMARY | 2022-06-20 12:52 | XMS_ITS | Encounter Summary ---
:1955 Author Organization [facility] Address [address] [place] [address] Care Team Providers Name Role Phone Unavailable [...] How often do you attend caodaism or yazidism More than 4 time s [...] Historical Provider Ser - 10/31/2001 12:00 AM HEALTH FACILITIES SURVEYOR [id number] Addended by: DONAVAN CONTE on: 11/07/2001,3:06 PMModules accepted: Order SummaryAddended by: DONAVAN KHAN on: 11/04/2001,10:25 AMModules accepted: Order Summary*-*-*-*-* SEE SCANNED REPORT *-*-*- *-* Source[facility] Document Id: [id number] documented in this encounter Plan of Treatment Upcoming Encounters Date Type Specialty Care Team Description 07/05/2022 Appointment Radiology Post, Heath Del Real APRN, C.N.P. [address] [place], [place] [address] [phone] (Wo rk) documented as of this encounter Visit Diagnoses Not on filedocumented in this encounter
--- OUTSIDE RECORDS SUMMARY | 2022-06-20 12:52 | XMS_ITS | Encounter Summary ---
:[address] [facility] Address [address] [place] [address] Care Team Providers Name Role Phone Unavailable [...] How often do you attend anglican or mu-ism More than 4 time s [...] Historical Provider Ser - 10/31/2001 12:00 AM COURTROOM REPORTER [id number] Abstracted by NATALY Rooney on [address] [place], [place] [id number] [place], [place] [id number] .Grabiel Georges M.D.Room [facility]. [facility] Number: [id number], Yvonne : [id number] CEDURE/OPERATIONPREOPERATIVE DIAGNOSIS: Left ankle [...] placed obtaining ex cellent purchase and anatomic gnosticist. The medial side was approached. The ankle [...] condition having tolerated t he procedure well. MARGARET/[id number]. 12-15-01 Chico Georges M.D. Source: [facility] RWHXTRANSXSYS Document Id: [id number] documented in this encounter Plan of Treatment Upcoming Encounters Date Type Specialty Care Team Description 07/05/2022 Appointment Radiology Post, Heath Del Real APRN, C.N.P. [address] [place] [address] [phone] (Wo rk) documented as of this encounter Visit Diagnoses Not on filedocumented in this encounter
--- OUTSIDE RECORDS SUMMARY | 2022-06-20 12:52 | XMS_ITS | Encounter Summary ---
:1955 Author Organization [facility] Address [address] [place] [address] Care Team Providers Name Role Phone Unavailable [...] often do you attend oriental orthodox or uatsdin More than 4 time s [...] Heath Del Real APRN, C.N.P. [address] [place] [address] [phone] (Wo rk) documented as of this encounter Visit Diagnoses Not on filedocumented in this encounter
--- OUTSIDE RECORDS SUMMARY | 2022-06-20 12:52 | XMS_ITS | Encounter Summary ---
:1955 Author Organization [facility] Address [address] [place] [address] Care Team Providers Name Role Phone Unavailable [...] How often do you attend islam or baptism More than 4 time s [...] Heath Del Real APRN, C.N.P. [address] [place] [address] [phone] (Wo rk) documented as of this encounter Visit Diagnoses Not on filedocumented in this encounter
--- OUTSIDE RECORDS SUMMARY | 2022-06-20 12:54 | XMS_ITS | Encounter Summary ---
:1955 Author Organization [facility] Address [address] [place] [address] Care Team Providers Name Role Phone Irina Pham APRN, CNP Primary Care Provider [phone] Reason for Visit Reason Comments Personal Problem Encounter Details Date Type Department Care Team Description 07/29/2018 Office Visit Tarik López Irina Pham Stress at home [address] M, JOE JUNG (Primary Dx) [place], [place] [address] [address] [place] [address] Social History Tobacco Use Types Packs/Day Years [...] Comments Blood Pressure 136/84 07/29/2018 9:35 AM CLINICAL SYSTEMS EDUCATOR Pulse 79 07/29/2018 9:35 AM CLINICAL SYSTEMS EDUCATOR Temperature 36.5 ??C (97.7 ??F) 07/29/2018 9:35 AM CLINICAL SYSTEMS EDUCATOR Respiratory Rate 16 07/29/2018 9:35 AM CLINICAL SYSTEMS EDUCATOR Oxygen Saturation 97% 07/29/2018 9:35 AM CLINICAL SYSTEMS EDUCATOR Inhaled Oxygen Concentration - - Weight - - Height 159 cm (5' 2.6) 07/29/2018 9:35 AM CLINICAL SYSTEMS EDUCATOR Body Mass Index - - documented in this encounter Patient Instructions Patient InstructionsChmer Pham APRN, CNP - 07/29/2018 9:20 AM CLINICAL SYSTEMS EDUCATOR Recommend exercise, healthy diet, and plenty of rest Recommend [facility] [employer] or [facility] in [place], [place] ICAL SYSTEMS EDUCATOR documented in this encounter Progress Notes Irina [...] and her Alex, adopted 2 children from [facility],when they were young. The mother reports [...] The patient son is 11th grade in [place], had a difficult time learning lastyear, reflected [...] healthy, exercise, and will be going to [employer], after this clinical appointment to maintain [...] plan of care. Irina Pham APRN, JOE ICAL SYSTEMS EDUCATOR documented in this encounter Plan of Treatment Not on filedocumented as of this encounter Visit Diagnoses Diagnosis Stress at home - Primary documented in this encounter Care Teams Barrel Rifler Broach Relationship Specialty Start Date End Date Irina Pham APRN, EXECUTIVE DIRECTOR OF NURSING PCP - General Family Medicine 07/29/18 04/18/20 [address] [facility] [place] [address] documented as of this encounter
--- OUTSIDE RECORDS SUMMARY | 2022-06-20 12:54 | XMS_ITS | Encounter Summary ---
:1955 Author Organization [facility] Address [address] [place] [address] Care Team Providers Name Role Phone Shelley Porter MD Primary Care Provider Unavailable Reason for Visit Reason Comments Establish Care Encounter Details Date Type Department Care Team Description 04/29/2020 Office Visit Tarik López Shelley Porter Essential hypertension (Prim dylan Dx); [address] MD Jacobo Mixed hyperlipidemia; [place], [place] Osteopenia, unspecified location [id number] Social History Tobacco Use Types Packs/Day Years [...] at age 54 if you have a 23-vzip-acep history of smoking and currently smoke or [...] 09/01/2016 Document Revised: 09/26/2018 Document Reviewed: 06/06/2016 picsell Interactive Patient Education ?? 2019 [employer]. documented in this encounter Progress Notes Shelley [...] was last seen in clinic by primary care transport nurse in 05/2019 and subsequently evaluated by cardiology on 08/2019. She had an ec hocardiogram performed in June 2019 which showed some mild increased concentric left ventricularthickness, left ventricular ejection fraction estimated to be 65 to 70%, no regional wall abnormalities, no significant valvular disease and normal right ventricular function and size. She underwent carotid artery ultrasound at [facility] in [facility] which showed an well plaque. Labs were [...] me she sees a homeopathic doctor in [place] named Edita Olvera. She gets her routine screening tests at [facility] and has an upcoming mammogram. Her mom [...] colonoscopy was in January 2011 at [facility] and was normal with recommended repeat in [...] for repeat colonoscopy in January 2011 at [facility] in [facility]. She will complete mammogram for breast cancer [...] at age 54 if you have a [id number] history of smoking and currently smoke or [...] 09/01/2016 Document Revised: 09/26/2018 Document Reviewed: 06/06/2016 picsell Interactive Patient Education ?? 2019 [employer]. documented in this encounter Plan of Treatment Not on filedocumented as of this encounter Results (ABNORMAL) Lipid panel (10/06/2020 8:38 AM WATCH REPAIR PERSON) athologist Signature Cholesterol 241 (H) 0 - 199 10/06/2020 [facility] mg/dL 1:40 PM [facility] Comment: Recommended by National Cholesterol Education Program (ATP III) -------- Cholesterol Ranges -------- <200 ?Desirable 200-239 ? Borderline high >=240 ? High Triglycerides 68 0 - 149 mg/dL 10/06/2020 1:40 PM [facility] Comment: -------- TRIG Ranges -------- <150 ?Normal 150-199 ? Borderline high 200-499 ? High >=500 ? Very high HDL 47 40 - 250 mg/dL 10/06/2020 1:40 PM [facility] Comment: -------- HDL Ranges -------- <40 ?Low 40-59 ?Normal >=60 ? Optimal LDL Calculated 180 (H) 0 - 99 mg/dL 10/06/2020 1:40 PM [facility] Comment: -------- LDL Ranges -------- <100 ? Optimal 100-129 ?Near optimal/above op timal 130-159 ?Borderline high 160-189 ?High >=190 ?Very high Fasting? Yes 10/06/2020 8:42 AM [facility] Specimen Anatomical Collection Method Collection Time Receive d Time (Source) Location / / Volume Laterality Blood 10/06/2020 8:38 AM WATCH REPAIR PERSON 12:47 PM WATCH REPAIR PERSON Shelley Porter MD LAB BLOOD ORDERABLES Performing Organization Address City/State/ZIP Code Phon e Number [facility] [address] [place] [address] Comprehensive metabolic panel (10/06/2020 8:38 AM WATCH REPAIR PERSON) P athologist Signature Total Protein 7.5 6.3 - 8.2 10/06/2020 [facility] g/dL 1:40 PM [facility] Albumin, Serum 4.2 3.5 - 5.0 10/06/2020 [facility] g/dL 1:40 PM [facility] Total Bilirubin <0.7 0.1 - 1.0 10/06/2020 [facility] mg/dL 1:40 PM [facility] AST 29 8 - 43 U/L 10/06/2020 [facility] 1:40 PM [facility] Alkaline 99 38 - 128 10/06/2020 [facility] Phosphatase U/L 1:40 PM [facility] ALT (SGPT) 28 0 - 34 U/L 10/06/2020 [facility] 1:40 PM [facility] Sodium 138 135 - 145 10/06/2020 [facility] mEq/L 1:40 PM [facility] Potassium 4.0 3.5 - 5.1 10/06/2020 [facility] mEq/L 1:40 PM [facility] Chloride 104 98 - 107 10/06/2020 [facility] mEq/L 1:40 PM [facility] CO2 27 22 - 29 10/06/2020 [facility] mmol/L 1:40 PM [facility] BUN 14 5 - 25 10/06/2020 [facility] mg/dL 1:40 PM [facility] Creatinine 0.6 0.4 - 1.2 10/06/2020 [facility] mg/dL 1:40 PM [facility] Glucose 90 70 - 100 10/06/2020 [facility] mg/dL 1:40 PM [facility] Calcium, Total,S 8.6 8.4 - 10.2 10/06/2020 [facility] mg/dL 1:40 PM [facility] Specimen Anatomical Collection Method Collection Time Receive d Time (Source) Location / / Volume Laterality Blood 10/06/2020 8:38 AM WATCH REPAIR PERSON 12:47 PM WATCH REPAIR PERSON Shelley Porter MD LAB BLOOD ORDERABLES Performing Organization Address City/State/ZIP Code Phon e Number [facility] [address] [place] [address] documented in this encounter Visit Diagnoses Diagnosis Essential hypertension - Primary Unspecified essential hypertension Mixed hyperlipidemia Osteopenia, unspecified location documented in this encounter Care Teams Crop Farm Workers Relationship Specialty Start Date End Date Shelley Porter MD PCP - General Family Medicine 04/19/20 documented as of this encounter
--- OUTSIDE RECORDS SUMMARY | 2022-06-20 12:54 | XMS_ITS | Encounter Summary ---
:1955 Author Organization [facility] Address [address] [place] [address] Care Team Providers Name Role Phone None, Pcp Primary Care Provider Unavailable Reason for Visit Reason Comments Med Refill Encounter Details Date Type Department Care Team Description 01/25/2021 Refill [place] Shelley Porter, Essential hypertension [address] [place], [place] [address] Social History Tobacco Use [...] hypertension documented in this encounter Care Teams Chief Of Staff Relationship Specialty Start Date End Date None, Pcp PCP - General 10/19/21 [address] [place] [address] documented as of this encounter
--- OUTSIDE RECORDS SUMMARY | 2022-06-20 12:54 | XMS_ITS | Encounter Summary ---
:1955 Author Organization [facility] Address [address] [place] [address] Care Team Providers Name Role Phone Shelley Porter MD Primary Care Provider Unavailable Reason for Visit Reason Onset Date Comments med refills 01/25/2021 Encounter Details Date Type Department Care Team Description 01/25/2021 Telephone Shelley Bates MD med refills [address] [place] [address] Social History Tobacco Use Types Packs/Day Years [...] on filedocumented in this encounter Care Teams Digital Commentator Relationship Specialty Start Date End Date Shelley Porter MD PCP - General Family Medicine 04/19/20 documented as of this encounter
--- OUTSIDE RECORDS SUMMARY | 2022-06-20 12:54 | XMS_ITS | Encounter Summary ---
:1955 Author Organization [facility] Address [address] [place] [address] Care Team Providers Name Role Phone Irina Pham APRN, HOOKMAN Primary Care Provider [phone] Encounter Details Date Type Department Care Team Description 11/12/2018 Lab Volodymyr López Palpitations; [address] Screening, anemia, deficienc y, iron; Volodymyr López [place] [address] Hyperlipidemia, unspecified hyperlipidemia type [phone] Social History Tobacco Use Types Packs/Day Years [...] AM CDT) athologist Signature GFR >60 11/12/2018 [facility] 9:36 AM CDT [facility]ENTER LAB[facility] >60 11/12/2018 [facility] Ethiopian GFR 9:36 AM CDT CENTER LAB[facility]ATORY Comment: [...] Organization Address City/State/ZIP Code Phon e Number [facility] [address] [place] [address] TSH (11/12/2018 8:59 AM CDT) athologist Signature TSH, Sensitive 1.96 0.46 - 11/13/2018 [facility] 4.68 mIU/L 2:03 PM CDT CENTER [...] CNP LAB BLOOD ORDERABLES Performing Organization Address [facility] [address] [place] [address] T4, free (11/12/2018 8:59 AM CDT) P [...] CNP LAB BLOOD ORDERABLES Performing Organization Address [facility] [address] [place] [address] (ABNORMAL) T3 (11/12/2018 8:59 AM CDT) P [...] CDT 12:35 PM CDT Irina Pham APRN, HOOKMAN LAB BLOOD ORDERABLES Performing Organization Address City/State/ZIP Code Phon e Number [facility] [address] [place] [address] (ABNORMAL) Lipid panel (11/12/2018 8:59 AM CDT) athologist Signature Cholesterol 226 (A) 0 - 199 11/12/2018 [facility] mg/dL 1:26 PM T [facility]ENTER [facility]ORY Comment: Recommended by National Cholesterol Education Program (ATP III) -------- Cholesterol Ranges -------- <200 ? Desirable 200-239 ? Borderline high >=240 ? High Triglycerides 76 0 - 149 mg/dL 11/12/2018 1:26 PM CDT [facility] Comment: -------- TRIG Ranges -------- <150 ?Normal 150-199 ? Borderline high 200-499 ? High >=500 ? Very high HDL 54 40 - 60 mg/dL 11/12/2018 1:26 PM CDT [facility] Comment: -------- HDL Ranges -------- <40 ?Low 40-59 ?Normal >=60 ? Optimal LDL Calculated 157 (A) 0 - 99 mg/dL 11/12/2018 1:26 PM CDT [facility] Comment: -------- LDL Ranges -------- <100 ? Optimal 100-129 ?Near optimal/above op timal 130-159 ?Borderline high 160-189 ?High >=190 ?Very high Specimen Anatomical Collection Method Collection Time Receive d Time (Source) Location / / Volume Laterality Blood (Blood, 11/12/2018 8:59 AM 11/13/19 19 Venous) CDT 12:58 PM CDT Irina Pham APRN, HOOKMAN LAB BLOOD ORDERABLES Performing Organization Address City/State/ZIP Code Phon e Number [facility] [address] [place] [address] CBC Branch Off w/Diff (11/12/2018 8:59 AM [...] CDT [place] Granulocytes/Khadra 59.0 45.8 - 11/12/2018 [facility] [place] trophils 73.7 % 9:36 AM CDT [place] Lymphocytes 2.1 0.9 - 2.9 11/12/2018 [facility] [place] Absolute K/uL 9:36 AM CDT [place] MIDS Absolute 0.4 0.2 - 0.8 11/12/2018 [facility] [place] K/uL 9:36 AM CDT [place] Granulocytes/Khadra 3.5 2.1 - 8.7 11/12/2018 [facility] [place] trophils K/uL 9:36 AM CDT [place] Absolute Specimen Anatomical Collection Method Collection Time Receive d Time (Source) Location / / Volume Laterality Blood (Blood, 11/12/2018 8:59 AM 11/13/19 19 9:12 Venous) CDT AM CDT Irina Pham APRN, HOOKMAN LAB BLOOD ORDERABLES Performing Organization Address City/State/ZIP Code Phon e Number [facility] [place] [address] [place] [address] Basic metabolic panel (11/12/2018 8:59 AM CDT) P athologist Signature Sodium 139 135 - 145 11/12/2018 [facility] [place] mmol/L 9:36 AM CDT [place] Potassium 3.5 3.5 - 5.1 11/12/2018 [facility] [place] mmol/L 9:36 AM CDT [place] Comment: . Chloride 104 98 - 107 mmol/L 11/12/2018 9:36 AM CDT [facility] [place] Comment: . CO2 27 22 - 29 mmol/L 11/12/2018 9:36 AM CDT C [place] Comment: . Creatinine 0.5 0.4 - 1.2 mg/dL 11/12/2018 9:36 AM CDT [facility] [place] Comment: . BUN 10 5 - 25 mg/dL 11/12/2018 9:36 AM CDT [facility] [place] Comment: . Glucose 85 70 - 100 mg/dL 11/12/2018 9:36 AM CDT C [place] Calcium, Total,S 9.3 8.4 - 10.2 mg/dL 11/12/2018 9:36 AM CDT [facility] [place] Comment: . Fasting? Yes 11/12/2018 9:12 AM CDT [facility] [place] Specimen Anatomical Collection Method Collection Time Receive d Time (Source) Location / / Volume Laterality Blood (Blood, 11/12/2018 8:59 AM 11/13/19 19 9:12 Venous) CDT AM CDT Irina Pham APRN, JOE LAB BLOOD ORDERABLES Performing Organization Address City/State/ZIP Code Phon e Number [facility] [place] [place] [address] [place] [address] documented in this encounter Visit Diagnoses Diagnosis Palpitations Screening, anemia, deficiency, iron Screening for iron deficiency anemia Hyperlipidemia, unspecified hyperlipidem ia type documented in this encounter Care Teams Hand Lacer Relationship Specialty Start Date End Date Irina Pham APRN, HOOKMAN PCP - General Family Medicine 07/29/18 04/18/[address] [place] [address] [place] M[place] [address] documented as of this encounter
--- OUTSIDE RECORDS SUMMARY | 2022-06-20 12:54 | XMS_ITS | Encounter Summary ---
:1955 Author Organization [facility] Address [address] [place] [address] Care Team Providers Name Role Phone Shelley Porter MD Primary Care Provider Unavailable Reason for Visit Reason Onset Date Comments Med Refill 01/25/2021 Encounter Details Date Type Department Care Team Description 01/25/2021 Refill Shelley Bates, Essential hypertension [address] [place] [address] Social History Tobacco Use Types Packs/Day Years [...] hypertension documented in this encounter Care Teams Oracle Database Architect Relationship Specialty Start Date End Date Shelley Porter MD PCP - General Family Medicine 04/19/20 documented as of this encounter
--- OUTSIDE RECORDS SUMMARY | 2022-06-20 12:54 | XMS_ITS | Clinical Summary ---
:[address] [facility] Address [address] [place] [address] Care Team Providers Name Role Phone None, [...] Noted Date History of colonoscopy 04/29/2020 Overview: [place] 01/26/2011, normal, repeat 10 years. Murmur, heart 08/28/2019 Bilateral carotid bruits 08/28/2019 Essential hypertension 08/28/2019 Palpitations 08/28/2019 Obesity 08/14/2017 Hyperlipidemia 08/08/2012 Osteopenia 06/27/2012 Overview: Bone density at [place] in 2011. Immunizations Name Administration Dates Next [...] on patient's age to complete this to [facility] Insurance Payer Benefit Plan / Subscriber ID Effective Dates Phone Addre ss Type Group BCBS OF BCBS OF [id number] 2017-Gage Giang [address] [place] [address] Care Teams Finance Clerk Relationship Specialty Start Date End Date None, Pcp PCP - General 10/19/[address] [place] [phone]
--- OUTSIDE RECORDS SUMMARY | 2022-06-20 12:54 | XMS_ITS | Encounter Summary ---
:1955 Author Organization [facility] Address [address] [place] [address] Care Team Providers Name Role Phone Irina Pahm APRN, GERIATRIC PERSONAL CARE AIDE Primary Care Provider [phone] Reason for Visit Reason Comments Blood Pressure Check Encounter Details Date Type Department Care Team Description 08/22/2019 Clinical Support [place] [address] [place], [place] [address] Social History Tobacco Use [...] Comments Blood Pressure 138/82 08/22/2019 2:[address] MACHINERY INSPECTOR Pulse 64 08/22/2019 2:[address] MACHINERY INSPECTOR Temperature - - Respiratory Rate - - [...] come back in for a recheck BP? MACHINERY INSPECTOR Irina Pham APRN, CNP - 08/22/2019 2:30 PM CST Contacted the patient, lisinopril 2.5 mg daily would be just fine, and if she would like me to send in the prescription I be happy to do so. MACHINERY INSPECTOR documented in this encounter Plan of Treatment Not on filedocumented as of this encounter Visit Diagnoses Not on filedocumented in this encounter Care Teams Community Support Worker Relationship Specialty Start Date End Date Irina Pham APRN, JOE PCP - General Family Medicine 07/29/18 04/18/[address] [place] [address] [place] MORA [address] documented as of this encounter
--- OUTSIDE RECORDS SUMMARY | 2022-06-20 12:54 | XMS_ITS | Encounter Summary ---
:1955 Author Organization [facility] Address [address] [place] [address] Care Team Providers Name Role Phone Irina Pham APRN, CNP Primary Care Provider [phone] Encounter Details Date Type Department Care Team Description 08/22/2019 Orders Only [place] Irina Pham Essential hypertension [address] M, JOE JUNG (Primary Dx) [place], [place] 100 [facility] [address] [place] [address] Social History Tobacco Use Types Packs/Day Years [...] hypertension documented in this encounter Care Teams Mushroom Sorter Grader Relationship Specialty Start Date End Date Irina Pham APRN, CNP PCP - General Family Medicine 07/29/18 04/18/20 [address] [place] [address] documented as of this encounter
--- OUTSIDE RECORDS SUMMARY | 2022-06-20 12:54 | XMS_ITS | Encounter Summary ---
:1955 Author Organization [facility] Address [address] [place] [address] Care Team Providers Name Role Phone Irina Pham CLOTH WINDING SUPERVISOR, CROSS COUNTRY COACH Primary Care Provider [phone] Reason for Visit Reason Onset Date Comments fax 06/12/2019 Encounter Details Date Type Department Care Team Description 06/12/2019 Telephone [place] Irina Pham, fax [address] CLOTH WINDING SUPERVISOR, CROSS COUNTRY COACH [place], [place] [address] 100 [facility] [phone] [place], [place] [address] Social History Tobacco Use [...] CST Referral and face sheet faxed to [facility] radiology as requested. CARE WORKER Telephone Encounter - Yuki Cornejo RN - 06/23/2019 1:47 PM CST Please refax referral. CARE WORKER Telephone Encounter - Anabel Kimbrough LPN - 06/12/2019 11:49 AM CDT noted Telephone Encounter - Ana Mckenna - 06/12/2019 11:20 AM CDT Referral and face sheet faxed to [facility] radiology as requested. Telephone Encounter - Yuki Cornejo RN - 06/12/2019 11:09 AM CDT Please fax order to [place] Tarik López. documented in this encounter Plan of Treatment Not on filedocumented as of this encounter Visit Diagnoses Not on filedocumented in this encounter Care Teams Card Feeder Relationship Specialty Start Date End Date Irina Pham, CLOTH WINDING SUPERVISOR, CROSS COUNTRY COACH PCP - General Family Medicine 07/29/18 04/18/[address] [place] [address] documented as of this encounter
--- OUTSIDE RECORDS SUMMARY | 2022-06-20 12:54 | XMS_ITS | Encounter Summary ---
:1955 Author Organization [facility] Address [address] [place] [address] Care Team Providers Name Role Phone Shelley Porter MD Primary Care Provider Unavailable Encounter Details Date Type Department Care Team Description 10/06/2020 Lab Tarik López Mixed hyperlipidemia; [address] Essential [place] [address] Social History Tobacco Use Types [...] hypert ension Results for this RATE AM EPIC ANALYST procedure are i n the results section. LIPID PANEL Routine 10/06/2020 8:38 Mixed hyperlipidemia Resu lts for this AM EPIC ANALYST procedure are i n the results section. COMPREHENSIVE Routine 10/06/2020 8:38 Essential hypertension R esults for this METABOLIC PANEL AM EPIC ANALYST procedure ar e in the results section. documented in this encounter Results Glomerular filtration rate (GFR) (10/06/2020 8:38 AM EPIC ANALYST) P athologist Signature GFR >60 10/06/2020 [facility] 1:40 PM EPIC ANALYST CENTER LAB[facility]ORY >60 10/06/2020 [facility] Guine[place] GFR 1:40 PM [facility] Comment: GFR calculated from serum creatinine v alue Chronic Kidney Disease less than 60 mL/m in/1.73 m2 Kidney Failure less than 15 mL/min/1.73 m2 Note: effective 01/02/07 IDMS-Traceable MDRD Study Equation used. Specimen Anatomical Collection Method Collection Time Receive d Time (Source) Location / / Volume Laterality 10/06/2020 8:38 AM 8:38 EPIC ANALYST AM EPIC ANALYST Shelley Porter MD LAB BLOOD ORDERABLES Performing Organization Address City/State/ZIP Code Phon e Number [facility] [address] [place] [address] Comprehensive metabolic panel (10/06/2020 8:38 AM EPIC ANALYST) P athologist Signature Total Protein 7.5 6.3 - 8.2 10/06/2020 [facility] g/dL 1:40 PM [facility] Albumin, Serum 4.2 3.5 - 5.0 10/06/2020 [facility] g/dL 1:40 PM [facility] Total Bilirubin <0.7 0.1 - 1.0 10/06/2020 [facility] mg/dL 1:40 PM [facility] AST 29 8 - 43 U/L 10/06/2020 [facility] 1:40 PM [facility] Alkaline 99 38 - 128 10/06/2020 [facility] Phosphatase U/L 1:40 PM [facility] ALT (SGPT) 28 0 - 34 U/L 10/06/2020 [facility] 1:40 PM [facility] Sodium 138 135 - 145 10/06/2020 [facility] mEq/L 1:40 PM [facility] Potassium 4.0 3.5 - 5.1 10/06/2020 [facility] mEq/L 1:40 PM [facility] Chloride 104 98 - 107 10/06/2020 [facility] mEq/L 1:40 PM [facility] CO2 27 22 - 29 10/06/2020 [facility] mmol/L 1:40 PM [facility] BUN 14 5 - 25 10/06/2020 [facility] mg/dL 1:40 PM [facility] Creatinine 0.6 0.4 - 1.2 10/06/2020 [facility] mg/dL 1:40 PM [facility] Glucose 90 70 - 100 10/06/2020 [facility] mg/dL 1:40 PM [facility] Calcium, Total,S 8.6 8.4 - 10.2 10/06/2020 [facility] mg/dL 1:40 PM [facility] Specimen Anatomical Collection Method Collection Time Receive d Time (Source) Location / / Volume Laterality Blood 10/06/2020 8:38 AM EPIC ANALYST 12:47 PM EPIC ANALYST Shelley Porter MD LAB BLOOD ORDERABLES Performing Organization Address City/State/ZIP Code Phon e Number [facility] [address] [place] [address] (ABNORMAL) Lipid panel (10/06/2020 8:38 AM EPIC ANALYST) athologist Signature Cholesterol 241 (H) 0 - 199 10/06/2020 [facility] mg/dL 1:40 PM [facility] Comment: Recommended by National Cholesterol Education Program (ATP III) -------- Cholesterol Ranges -------- <200 ?Desirable 200-239 ? Borderline high >=240 ? High Triglycerides 68 0 - 149 mg/dL 10/06/2020 1:[address] [facility] Comment: -------- TRIG Ranges -------- <150 ?Normal 150-199 ? Borderline high 200-499 ? High >=500 ? Very high HDL 47 40 - 250 mg/dL 10/06/2020 1:40 PM [facility] Comment: -------- HDL Ranges -------- <40 ?Low 40-59 ?Normal >=60 ? Optimal LDL Calculated 180 (H) 0 - 99 mg/dL 10/06/2020 1:40 PM EPIC ANALYST [facility] Comment: -------- LDL Ranges -------- <100 ? Optimal 100-129 ?Near optimal/above op timal 130-159 ?Borderline high 160-189 ?High >=190 ?Very high Fasting? Yes 10/06/2020 8:42 AM EPIC ANALYST [facility] Specimen Anatomical Collection Method Collection Time Receive d Time (Source) Location / / Volume Laterality Blood 10/06/2020 8:38 AM EPIC ANALYST 12:47 PM EPIC ANALYST Shelley Porter MD LAB BLOOD ORDERABLES Performing Organization Address City/State/ZIP Code Phon e Number [facility] [address] [place] [address] documented in this encounter Visit Diagnoses Diagnosis Mixed hyperlipidemia Essential hypertension Unspecified essential hypertension documented in this encounter Care Teams Psychology Technician Relationship Specialty Start Date End Date Shelley Porter MD PCP - General Family Medicine 04/19/20 documented as of this encounter
--- OUTSIDE RECORDS SUMMARY | 2022-06-20 12:54 | XMS_ITS | Encounter Summary ---
:1955 Author Organization [facility] Address [address] [place] [address] Care Team Providers Name Role Phone Shelley Porter MD Primary Care Provider Unavailable Reason for Visit Reason Comments Blood Pressure Check Encounter Details Date Type Department Care Team Description 01/25/2021 Clinical Support [address] [address] Social History Tobacco Use Types Packs/Day Years [...] on filedocumented in this encounter Care Teams Polls Or Surveys Interviewer Relationship Specialty Start Date End Date Shelley Porter MD PCP - General Family Medicine 04/19/20 documented as of this encounter
--- OUTSIDE RECORDS SUMMARY | 2022-06-20 12:54 | XMS_ITS | Encounter Summary ---
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 She does have an upcoming appointment scheduled with cardiology. OR & CO FOUNDER documented in this encounter Plan of Treatment Not on filedocumented as of this encounter Visit Diagnoses Not on filedocumented in this encounter Care Teams Technology Sales Consultant Relationship Specialty Start Date End Date Irina Pham APRN, MEAT PROCESS WORKER PCP - General Family Medicine 07/29/18 04/18/20 100 [facility] [place] [address] documented as of this encounter
--- OUTSIDE RECORDS SUMMARY | 2022-06-20 12:54 | XMS_ITS | Encounter Summary ---
:1955 Author Organization [facility] Address [address] [place] [address] Care Team Providers Name Role Phone Irina Pham APRN, JOE Primary Care Provider [phone] Reason for Visit Reason Comments Blood Pressure Check Encounter Details Date Type Department Care Team Description 10/03/2019 Clinical Support [place] [address] [place], [place] [address] Social History Tobacco Use [...] Comments Blood Pressure 139/70 10/03/2019 2:51 PM FOUNDRY MELT SUPERVISOR Pulse 78 10/03/2019 2:51 PM FOUNDRY MELT SUPERVISOR Temperature - - Respiratory Rate - - Oxygen Saturation - - Inhaled Oxygen Concentration - - Weight - - Height - - Body Mass Index - - documented in this encounter Plan of Treatment Not on filedocumented as of this encounter Visit Diagnoses Not on filedocumented in this encounter Care Teams Police Liaison Relationship Specialty Start Date End Date Irina Pham APRN, WOOD INSPECTOR PCP - General Family Medicine 07/29/18 04/18/20 100 [place] [address] documented as of this encounter
--- OUTSIDE RECORDS SUMMARY | 2022-06-20 12:54 | XMS_ITS | Encounter Summary ---
:1955 Author Organization [facility] Address [address] [place] [address] Care Team Providers Name Role Phone Shelley Porter MD Primary Care Provider Unavailable Encounter Details Date Type Department Care Team Description 10/11/2020 Orders Only Shelley Bates Pure hypercholesterolemia [address] [facility] Fernando Centeno MD (Primary Dx) [place] [id number] Social History Tobacco Use Types Packs/Day Years [...] Primary documented in this encounter Care Teams Press Feeder Relationship Specialty Start Date End Date Shelley Porter MD PCP - General Family Medicine 04/19/20 documented as of this encounter
--- OUTSIDE RECORDS SUMMARY | 2022-06-20 12:54 | XMS_ITS | Encounter Summary ---
:1955 Author Organization [facility] Address [address] [place] [address] Care Team Providers Name Role Phone Shelley Porter MD Primary Care Provider Unavailable Reason for Visit Reason Onset Date Comments Med Refill 10/04/2020 Encounter Details Date Type Department Care Team Description 10/04/2020 Refill [place] Shelley Porter, Essential hypertension [address] [place], [place] [address] Social History Tobacco Use [...] lab appt scheduled for Sunday10/06/20 as requested. RTAINMENT MANAGER Telephone Encounter - Yuki Cornejo RN - 10/04/2020 11:31 AM CST Please call patient to schedule fasting labs. RTAINMENT MANAGER Telephone Encounter - Shelley Porter MD - 10/04/2020 11:21 AM CST Due for routine labs, already ordered. RTAINMENT MANAGER Telephone Encounter - Yuki Cornejo RN - 10/04/2020 8:17 AM CST Please review request. RTAINMENT MANAGER Telephone Encounter - Nikia Clarke LPN - 10/04/2020 7:30 AM ENTERTAINMENT MANAGER Last visit in provider department: 04/29/2020 Last [...] Please contact patient to assist with scheduling. RTAINMENT MANAGER documented in this encounter Plan of Treatment Not on filedocumented as of this encounter Visit Diagnoses Diagnosis Essential hypertension Unspecified essential hypertension documented in this encounter Care Teams Machining Manager Relationship Specialty Start Date End Date Shelley Porter MD PCP - General Family Medicine 04/19/20 documented as of this encounter
--- OUTSIDE RECORDS SUMMARY | 2022-06-20 12:54 | XMS_ITS | Encounter Summary ---
:1955 Author Organization [facility] Address [address] [place] [address] Care Team Providers Name Role Phone Irina Pham APRN, CNP Primary Care Provider [phone] Encounter Details Date Type Department Care Team Description 12/10/2018 Telephone [place] Irina Pham, [address] JOE JUNG [place], [place] [address] 100 [facility] [phone] [place], [place] [address] Social History Tobacco Use [...] on filedocumented in this encounter Care Teams Gasoline Truck Operator Relationship Specialty Start Date End Date Irina Pham APRN, CNP PCP - General Family Medicine 07/29/18 04/18/20 100 [facility] [place], [place] [address] documented as of this encounter
--- OUTSIDE RECORDS SUMMARY | 2022-06-20 12:54 | XMS_ITS | Encounter Summary ---
:1955 Author Organization [facility] Address [address] [place] [address] Care Team Providers Name Role Phone Irina Pham APRN, CNP Primary Care Provider [phone] Reason for Referral Consultation (Routine) - Closed Specialty Diagnoses / Procedures Referred By Contact Refer red To Contact Diagnoses Bilateral carotid bruits Irina Pham, [facility] JOE JUNG SYSTEM - [address] [address] [place] [address] Phone: Fax: Referral ID Status Reason Start Date Expiration Date Visits Requ ested Visits Authorized [id number] Closed 06/12/2019 06/12/2020 1 1 Consultation (Routine) - Closed Specialty Diagnoses / Procedures Referred By Contact Refer red To Contact Cardiology Diagnoses Essential hypertension Systolic murmur Irina Pham APRN, CNP [address] [place] [address] Referral ID Status Reason Start Date Expiration Date Visits V isits Requested Authorized [id number] Closed Specialty 06/12/2019 06/12/2020 1 1 Services Required Scheduling Instructions Please call the Content Strategy Lead stevo gillespie at [phone] ext. [phone] to schedule an appointment. Please schedule in Tarik cortez. Cardiac (Routine) - Closed Specialty Diagnoses / Procedures Referred By Contact Refer red To Contact Cardiology Diagnoses Systolic murmur Essential hypertension Irina Pham, Stan Echocardiogram 2D complete with spec and color form doppler JOE JUNG [address] [place] [address] Referral ID Status Reason Start Date Expiration Date Visits Requ ested Visits Authorized [id number] Closed 06/12/2019 12/09/2019 1 1 Reason for Visit Reason Comments Hypertension Encounter Details Date Type Department Care Team Description 06/12/2019 Office Visit Tarik López Irina Pham Essential hypertension (Prim dylan Dx); [address] M, JOE JUNG Systolic murmur; KRISTINE Giron [address] Bilateral carotid bruits [address] [place] [address] [phone] Social History Tobacco Use Types Packs/Day Years [...] AM CDT Echocardiogram and cardiology appointment in [place] Lisinopril 5 mg daily Consider carotid ultrasound [...] will obtain a bilateral carotid ultrasound at [facility] in [place] prior to that appointment, which she decided [...] for this COMPLETE WITH SPEC AND AM QUARTER SUPERVISOR Essential proce dure are in COLOR FORM DOPPLER hypertension the resul ts section. documented in this encounter Results Echocardiogram 2D complete with spec and color form doppler (07/03/2019 10:00 AM QUARTER SUPERVISOR) Anatomical Region Laterality Modality Ultrasound Specimen (Source) Anatomical Collection Method Collection Time Re ceived Time Location / / Volume Laterality 07/03/2019 10:00 AM QUARTER SUPERVISOR Narrative This result has an attachment that is no t available. Irina Pham APRN, CNP CV ECHO PROCEDURES documented in this encounter Visit Diagnoses Diagnosis Essential hypertension - Primary Unspecified essential hypertension Systolic murmur Undiagnosed cardiac murmurs Bilateral carotid bruits documented in this encounter Care Teams Carpentry Teacher Relationship Specialty Start Date End Date Irina Pham APRN, SENIOR LINUX SYSTEMS ADMINISTRATOR PCP - General Family Medicine 07/29/18 04/18/20 100 [facility] [place] [address] documented as of this encounter
--- OUTSIDE RECORDS SUMMARY | 2022-06-20 12:54 | XMS_ITS | Encounter Summary ---
:1955 Author Organization [facility] Address [address] [place] [address] Care Team Providers Name Role Phone Irina Pham APRN, JOE Primary Care Provider [phone] Reason for Visit Reason Comments Advice Only Consultation (Routine) - Closed Specialty Diagnoses / Procedures Referred By Contact Refer red To Contact Cardiology Diagnoses Essential hypertension Systolic murmur Irina Pham APRN, HOUSEKEEPING MANAGER [address] [place] [address] Referral ID Status Reason Start Date Expiration Date Visits V isits Requested Authorized [id number] Closed Specialty 06/12/2019 06/12/2020 1 1 Services Required Encounter Details Date Type Department Care Team Description 08/28/2019 Consult [place] Shivam De La O MD Murmur, heart (Primary Dx); [address] Bilateral carotid bruits; [place], [place] [address] Essential hypertension; [phone] Palpitations Social History Tobacco Use Types Packs/Day [...] Comments Blood Pressure 138/88 08/28/2019 10:32 AM FUR SORTER Pulse 66 08/28/2019 10:32 AM FUR SORTER Temperature 36.8 ??C (98.2 ??F) 08/28/2019 10:32 AM FUR SORTER Respiratory Rate 16 08/28/2019 10:32 AM FUR SORTER Oxygen Saturation 98% 08/28/2019 10:32 AM FUR SORTER Inhaled Oxygen Concentration - - Weight 100 kg (220 lb 14.4 oz) 08/28/2019 10:32 AM FUR SORTER Height 150 cm (4' 11.06) 08/28/2019 10:32 AM FUR SORTER Body Mass Index 44.53 08/28/2019 10:32 AM FUR SORTER documented in this encounter Patient Instructions Patient [...] clinic and we can make appropriate recommendations. SORTER documented in this encounter Progress Notes Shivam De La O MD - 08/28/2019 10:20 AM CST Consultation Patient ID: Colleen Tolentino is a 64 y.o. female. Referring Provider: Irina Pham APRN, CNP HPI This 64-year-old female is seen in initial Cardiology Consultation with the [facility] cardiology group with concerns about her [...] impacted by recent psychosocial stressors with her [id number] having been quite ill resulting in her [...] panic attacks question related to her ill [id number] since this past late winter/early spring. Additionally [...] us and we can make appropriate arrangements. SORTER documented in this encounter Plan of Treatment Not on filedocumented as of this encounter Visit Diagnoses Diagnosis Murmur, heart - Primary Undiagnosed cardiac murmurs Bilateral carotid bruits Essential hypertension Unspecified essential hypertension Palpitations documented in this encounter Care Teams Patient Financial Representative Relationship Specialty Start Date End Date Irina Pham APRN, HOUSEKEEPING MANAGER PCP - General Family Medicine 07/29/18 04/18/[address] [place] [id number] documented as of this encounter
--- OUTSIDE RECORDS SUMMARY | 2022-06-20 12:54 | XMS_ITS | Encounter Summary ---
:1955 Author Organization [facility] Address [address] [place] [address] Care Team Providers Name Role Phone Irina Pham APRN, CNP Primary Care Provider [phone] Reason for Referral Consultation (Routine) - Closed Specialty Diagnoses / Procedures Referred By Contact Refer red To Contact Cardiology Diagnoses Systolic murmur Irina Pham APRN DENTAL TECHNOLOGIST [address] [place] [address] Referral ID Status Reason Start Date Expiration Date Visits V isits Requested Authorized [id number] Closed Specialty 11/13/2018 11/14/2019 1 1 Services Required Scheduling Instructions Please call the Field Crop Ii Farmworker stevo gillespie at [phone]. [phone] to schedule an appointment. Please schedule in Tarik cortez. Mayra, Alex Consultation (Routine) - Closed Specialty Diagnoses / Procedures Referred By Contact Refer red To Contact Diagnoses Philippe's neuroma of right foot Irina Pham, [facility] [place] FABIANA, DENTAL TECHNOLOGIST [address] [facility] [address] [place] [address] Fax: Referral ID Status Reason Start Date Expiration Date Visits Requ ested Visits Authorized [id number] Closed 11/13/2018 11/14/2019 1 1 Reason for Visit Reason Comments Consult Encounter Details Date Type Department Care Team Description 11/12/2018 Office Visit aTrik López Irina Pham Palpitations (Primary Dx); [address] M, JOE JUNG Systolic murmur; KRISTINE Giron [address] Hyperlipidemia, unspecified hyperlipidem ia type; [address] KRISTINE VAUGHN Dyspnea on exertion; [phone] Philippe's neuroma of right foot; [phone] Screening, anem ia, deficiency, iron (Work) Social [...] AM CDT Please schedule your mammogram in [place] Will call with the lab results Referral to podiatry to [place] [facility] referal documented in this encounter Progress [...] most. She previously had this evaluated at [facility] in [place] and would like a referral to have this reevaluated. 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 The patient reports she had left [...] with her teenage son's choices, and a wfcktt-bw-mla whowas diagnosed with incurable brain cancer 3 [...] and a referral has been sent to [facility]. The patient will be notified of her lab results and further recommendations. Encouraged a DEXA scan every 2 years, particularly with her family history, which she can consider. The patient agrees to schedule her mammogram at [place] in [place]. The patient agrees and understands this plan [...] Signature Sodium 139 135 - 145 11/12/2018 [facility] [place] mmol/L 9:36 AM CDT [place] Potassium 3.5 3.5 - 5.1 11/12/2018 [facility] [place] mmol/L 9:36 AM CDT [place] Comment: . Chloride 104 98 - 107 mmol/L 11/12/2018 9:36 AM CDT O [place] Comment: . CO2 27 22 - 29 mmol/L 11/12/2018 9:36 AM CDT OM C [place] Comment: . Creatinine 0.5 0.4 - 1.2 mg/dL 11/12/2018 9:36 AM CDT [facility] [place] Comment: . BUN 10 5 - 25 mg/dL 11/12/2018 9:36 AM CDT C [place] Comment: . Glucose 85 70 - 100 mg/dL 11/12/2018 9:36 AM CDT C [place] Calcium, Total,S 9.3 8.4 - 10.2 mg/dL 11/12/2018 9:36 AM CDT [facility] [place] [place] Comment: . Fasting? Yes 11/12/2018 9:12 AM CDT [facility] [place] Specimen Anatomical Collection Method Collection Time Receive d Time (Source) Location / / Volume Laterality Blood (Blood, 11/12/2018 8:59 AM 11/13/19 19 9:12 Venous) CDT AM CDT Irina Pham APRN, DENTAL TECHNOLOGIST LAB BLOOD ORDERABLES Performing Organization Address City/State/ZIP Code Phon e Number [facility] [place] [address] [place] [address] CBC Branch Off w/Diff (11/12/2018 8:59 AM CDT) P athologist Signature WBC 6.0 3.5 - 10.5 11/12/2018 [facility] [place] K/uL 9:36 AM CDT [place] RBC 4.62 3.90 - 11/12/2018 [facility] [place] 5.00 M/uL 9:36 AM CDT [place] Hemoglobin 13.8 12.0 - 11/12/2018 [facility] [place] 15.5 g/dL 9:36 AM CDT [place] Hematocrit 41.1 35.0 - 11/12/2018 C [place] 44.0 % 9:36 AM CDT [place] Platelets 196 150 - 450 11/12/2018 [facility] [place] K/uL 9:36 AM CDT [place] MCV 89.0 81.6 - 11/12/2018 [facility] [place] 98.3 fL 9:36 AM CDT [place] MCH 29.9 26.0 - 11/12/2018 [facility] [place] 32.0 pg 9:36 AM CDT [place] MCHC 33.6 32.0 - 11/12/2018 [facility] [place] 36.0 g/dL 9:36 AM CDT [place] RDW 13.4 11.9 - 11/12/2018 [facility] [place] 15.5 % 9:36 AM CDT [place] Lymphocytes % 34.5 18.0 - 11/12/2018 [facility] [place] 45.0 % 9:36 AM CDT [place] Mid-size Cells 6.5 3.3 - 10.1 11/12/2018 [facility] [place] % 9:36 AM CDT [place] Granulocytes/Khadra 59.0 45.8 - 11/12/2018 [facility] [place] trophils 73.7 % 9:36 AM CDT [place] Lymphocytes 2.1 0.9 - 2.9 11/12/2018 [facility] [place] Absolute K/uL 9:36 AM CDT [place] MIDS Absolute 0.4 0.2 - 0.8 11/12/2018 [facility] K/uL 9:36 AM CDT [place] Granulocytes/Khadra 3.5 2.1 - 8.7 11/12/2018 [facility] [place] trophils K/uL 9:36 AM CDT [place] Absolute Specimen Anatomical Collection Method Collection Time Receive d Time (Source) Location / / Volume Laterality Blood (Blood, 11/12/2018 8:59 AM 11/13/19 19 9:12 Venous) CDT AM CDT Irina Pham APRN, DENTAL TECHNOLOGIST LAB BLOOD ORDERABLES Performing Organization Address City/State/ZIP Code Phon e Number [facility] [place] [address] [place] [address] (ABNORMAL) Lipid panel (11/12/2018 8:59 AM CDT) P athologist Signature Cholesterol 226 (A) 0 - 199 11/12/2018 [facility] mg/dL 1:26 PM CDT [facility] Comment: Recommended by National Cholesterol Education Program (ATP III) -------- Cholesterol Ranges -------- <200 ? Desirable 200-239 ? Borderline high >=240 ? High Triglycerides 76 0 - 149 mg/dL 11/12/2018 1:26 PM CDT [facility] Comment: -------- TRIG Ranges -------- <150 ?Normal 150-199 ? Borderline high 200-499 ? High >=500 ? Very high HDL 54 40 - 60 mg/dL 11/12/2018 1:26 PM CDT [facility] Comment: -------- HDL Ranges -------- <40 ?Low 40-59 ?Normal >=60 ? Optimal LDL Calculated 157 (A) 0 - 99 mg/dL 11/12/2018 1:26 PM CDT [facility] Comment: -------- LDL Ranges -------- <100 ? Optimal 100-129 ?Near optimal/above op timal 130-159 ?Borderline high 160-189 ?High >=190 ?Very high Specimen Anatomical Collection Method Collection Time Receive d Time (Source) Location / / Volume Laterality Blood (Blood, 11/12/2018 8:59 AM 11/13/19 19 Venous) CDT 12:58 PM CDT Irina Pham APRN, DENTAL TECHNOLOGIST LAB BLOOD ORDERABLES Performing Organization Address City/State/ZIP Code Phon e Number [facility] [address] [place] [address] (ABNORMAL) T3 (11/12/2018 8:59 AM CDT) P athologist Signature T3, Total 1.97 (H) 0.97 - 1.69 11/13/2018 [facility] ng/mL 2:03 PM CDT [facility] Comment: [...] CNP LAB BLOOD ORDERABLES Performing Organization Address [facility] Phon e Number [facility] [address] [place] [address] T4, free (11/12/2018 8:59 AM CDT) athologist [...] JOE LAB BLOOD ORDERABLES Performing Organization Address [facility] Phon e Number [facility] [address] [place] [address] TSH (11/12/2018 8:59 AM CDT) P athologist [...] Code Phon e Number [facility] [address] [place] [address] documented in this encounter Visit Diagnoses Diagnosis Palpitations - Primary Systolic murmur Undiagnosed cardiac murmurs Hyperlipidemia, unspecified hyperlipidem ia type Dyspnea on exertion Other dyspnea and respiratory abnormalit y Philippe's neuroma of right foot Screening, anemia, deficiency, iron Screening for iron deficiency anemia documented in this encounter Care Teams Client Services Associate Relationship Specialty Start Date End Date Irina Pham APRN, DENTAL TECHNOLOGIST PCP - General Family Medicine 07/29/18 04/18/20 [address] [place] [address] documented as of this encounter
--- NOTE | 2022-06-20 13:00 | CRLHL7_ITS ---
For Patients: As a result of the Century Cures Act, medical imaging exams and procedure reports are released immediately into your electronic medical record. You may view this report before your referring provider. If you have questions, please contact your health care provider. INDICATION: left adnexal mass COMPARISON: CT 05/25/2022 TECHNIQUE: 2D white scale and color Doppler images were acquired of the pelvis using a transabdominal approach. The patient was unable to tolerate transvaginal imaging. FINDINGS: There is a smoothly marginated hypoechoic mass arising from the left side of the uterus accounting for the CT finding. This measures 2.4 x 2.3 x 2.0 cm and is similar in echotexture to the adjacent uterus. Uterus measures 7.5 cm in length by 2.5 cm in AP diameter by 4.0 cm in transverse dimension. The endometrial lining measures 15 mm in composite thickness. The right ovary measures 2.3 x 1.6 x 1.3 cm in size and the left ovary measures 2.4 x 0.9 x 2.2 cm. Unable to obtain color Doppler flow of the ovaries due to the posterior position on transabdominal imaging. There are no suspicious fluid collections within the cul-de-sac. IMPRESSION: Exophytic uterine fibroid arising from the left uterine fundus measuring 2.4 cm. Dictated by Darrian Calabrese MD @ 06/20/2022 3:52:18 PM (Electronically Signed)
== END 2022-06-20 12:42 | disposition home or self-care (01) ==
PROVIDERS: PCP Nurse Practitioner Family; Visit Provider Nurse Practitioner Family
DX: R19.00 Intra-abdominal and pelvic swelling, mass and lump, unspecified site (principal); D25.9 Leiomyoma of uterus, unspecified
CPT/HCPCS: 76856

== ENCOUNTER 2022-07-10 12:17 | Outpatient (CLI) | payer BC, SELFPAY ==
--- OUTSIDE RECORDS SUMMARY | 2022-07-10 12:22 | XMS_ITS | Encounter Summary ---
:[address] [facility] Address [address] [place] [address] Care Team Providers Name Role Phone Elsewhere, [...] How often do you attend mandaeism or latter-day More than 4 time s [...] or slept in a correction (including now)? Education Answer Date Recorded What [...] on filedocumented in this encounter Care Teams Pearl Peller Relationship Specialty Start Date End Date Elsewhere, Pcp PCP - General Internal Medicine 10/03/21 documented as of this encounter
--- OUTSIDE RECORDS SUMMARY | 2022-07-10 12:22 | XMS_ITS | Encounter Summary ---
:1955 Author Organization [facility] Address [address] [place] [address] Care Team Providers Name Role Phone Elsewhere, Pcp Primary Care Provider Unavailable Encounter Details Date Type Department Care Team Description 05/04/2022 Clinical Communication Department of Shima Macias Otorhinolaryngology in [place], Ph.D. [place], [place] [address] [facility] [address] [place] [phone] Social History Tobacco Use Types Packs/Day Years [...] for this patient by Shima Macias, Ph.D. [facility] Dated 05/03/22. 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 If the plan of care is not what was intended, please contact Shima Macias, Ph.D. at [phone] or by responding to this message. documented in this encounter Plan of Treatment Not on filedocumented as of this encounter Visit Diagnoses Not on filedocumented in this encounter Care Teams Wedding Designer Relationship Specialty Start Date End Date Elsewhere, Pcp PCP - General Internal Medicine 10/03/21 documented as of this encounter
--- OUTSIDE RECORDS SUMMARY | 2022-07-10 12:22 | XMS_ITS | Encounter Summary ---
:1955 Author Organization [facility] Address [address] [place] [address] Care Team Providers Name Role Phone Elsewhere, Pcp Primary Care Provider Unavailable Reason for Referral Outpatient (Routine) - Closed Specialty Diagnoses / Procedures Referred By Contact Refer red To Contact Diagnoses Screening Mammogram Breast Cancer Post, Heath Del Real APRN, [facility] [place] [facility] Procedures BI Breast Screening Bilateral with Tomosynthesis C.N.P. [address] [place] [phone] Referral ID Status Reason Start Date Expiration Date Visits Requ ested Visits Authorized [id number] Closed 06/05/2022 06/05/2023 1 1 IRER RESISTANCE WELDING MACHINES Reason for Visit Outpatient (Routine) - Closed Specialty Diagnoses / Procedures Referred By Contact Refer red To Contact Diagnoses Screening Mammogram Breast Cancer Post, Heath Del Real APRN, [facility] [place] [facility] Procedures BI Breast Screening Bilateral with Tomosynthesis C.N.P. [address] [place] [phone] Referral ID Status Reason Start Date Expiration Date Visits Requ ested Visits Authorized [id number] Closed 06/05/2022 06/05/2023 1 1 Encounter Details Date Type Department Care Team Description 07/05/2022 Hospital Encounter Department of Rich, Rika Lorenzo Mammogram Radiology in [place] FABIANA, C.N.P. Breast Cancer Wing, [address] [place] [phone] Social History Tobacco Use Types Packs/Day Years [...] How often do you attend baptist or tenriism More than 4 time s [...] 1 tablet by 0 2011 mouth daily. calcitRIOL (ROCALTROL) TAKE 2 CAPSULES BY 100 capsule 2 0 08/202110/18/2022 0.25 mcg capsule MOUTH DAILY calcium carbonate Chew 2 tablets (400 0 2 (TUMS) 500 mg (200 mg mg of calcium total) calcium) chewable 3 (three) times a tablet day. cholecalciferol, Take 25 mcg by mouth 0 vitamin D3, daily. 4000 MG DAILY (cholecalciferol) 25 mcg (1,000 Unit) tablet ibuprofen Take 3 tablets by 0 06/29/2012 (for_ADVIL,MOTRIN) 200 mouth every 6 (six) mg tablet hours as needed for pain. levothyroxine TAKE 1 TABLET BY 100 tablet 1 10/18/202110/18 (SYNTHROID, LEVOTHROID) MOUTH EVERY MORNING 150 mcg tablet BEFORE BREAKFAST lisinopriL Take 2.5 mg by mouth 0 [...] 0 mouth 2 (two) times a day. UNABLE TO FIND CALCIUM MAGNESIUM 0 AND ZINC SUPPLEMENT documented as of this encounter Plan of Treatment Not on filedocumented as of this encounter Procedures Procedure Name Priority Date/Time Associated Comments Diagnosis BI BREAST SCREENING RAD - Routine 07/05/2022 2:55 Screening Resu lts for BILATERAL WITH (most inpatients PM REPAIRER RESISTANCE WELDING MACHINES Mammogram Breast this procedure TOMOSYNTHESIS and all Cancer are in the outpatients) results section. documented in this encounter Results BI Breast Screening Bilateral with Tomosynthesis (07/05/2022 2:55 PM REPAIRER RESISTANCE WELDING MACHINES) Anatomical Region Laterality Modality Breast, Breast Imaging RST LOS, Breast Imaging ARZ Breanne BERRY st Bilateral Mammography Imaging FLA LOS Specimen (Source) Anatomical Collection Method Collection Time Re ceived Time Location / / Volume Laterality 07/05/2022 3:48 PM REPAIRER RESISTANCE WELDING MACHINES Impressions 07/05/2022 3:50 PM REPAIRER RESISTANCE WELDING MACHINES Negative. RECOMMENDATION: ??Annual Screening Mammo gram ASSESSMENT: ??BI-RADS: 1: Negative. Narrative 07/05/2022 3:50 PM REPAIRER RESISTANCE WELDING MACHINES EXAM: ??BI BREAST SCREENING BILATERAL WITH TOMOSYNTHESIS Current study was evaluated with a Compu ter Aided Detection (CAD) system. INDICATION: ??Screening mammogram. COMPARISON: ??Prior exam(s) were availab le and reviewed for comparison. DENSITY: ??b. There are scattered areas of fibroglandular density. FINDINGS: ??No mammographic findings of malignancy. Procedure Note Sami Sargent M.D. - 07/05/2022Formatt ing of this note might be different [...] Screening Mammogr am ASSESSMENT: BI-RADS: 1: Negative. Heath Villanueva APRN, C.N.P. IMG BI PROCEDURES documented in this encounter Visit Diagnoses Diagnosis Screening Mammogram Breast Cancer documented in this encounter Care Teams Class A Truck Driver Relationship Specialty Start Date End Date Elsewhere, Pcp PCP - General Internal Medicine 10/03/21 documented as of this encounter
--- OUTSIDE RECORDS SUMMARY | 2022-07-10 12:22 | XMS_ITS | Clinical Summary ---
:1955 Author Organization [facility] Address [address] [place] [address] Care Team Providers Name Role Phone Elsewhere, Pcp Primary Care Provider Unavailable Source Comments Patient records contain information from all sites at [facility]. For routine questions regarding patient records, call [phone] during business hours, M-F 8:00 AM - 5:00 PM Central Time. Record requests for emergency care only can be directed to [phone] at any time.[facility] Allergies Active Allergy Reactions Severity Noted [...] (TUMS) 500 mg (200 (400 mg of mg calcium) chewable calcium total) 3 tablet (three) times a day. cholecalciferol, Take 25 mcg by 0 Active vitamin D3, mouth daily. 4000 (cholecalciferol) 25 MG DAILY mcg (1,000 Unit) tablet UNABLE TO FIND CALCIUM MAGNESIUM 0 Active AND ZINC SUPPLEMENT levothyroxine TAKE 1 TABLET BY 100 tablet 1 10/18/2021 023 Active (SYNTHROID, MOUTH EVERY LEVOTHROID) 150 mcg MORNING BEFORE tablet BREAKFAST calcitRIOL TAKE 2 CAPSULES 100 capsule 2 10/18/2021 10/18/2022 Active (ROCALTROL) 0.25 mcg BY MOUTH DAILY capsule Additional Information Patient not taking. Reported on 01/20/2022 Active Problems Problem Noted Date Goiter Multinodular Nontoxic 08/22/2021 Cholecystitis 08/14/2017 Obesity Body Mass Index 30-39.9 Adult 08/14/2017 Arthroscopy Shoulder Status Post 10/18/2015 Dislocation Ankle Closed Initial 11/15/2013 Overview: Closed dislocation of ankle Injury Head Initial 08/08/2012 Hyperlipidemia 08/08/2012 Psoriasis 08/08/2012 Osteopenia 06/27/2012 Encounters Date Type Specialty Care Team Description 07/05/2022 Hospital Encounter Radiology Post, Heath Del Real, FABIANA, C.N.P. Mammogram Br east Cancer 05/04/2022 Clinical Otorhinolaryngology Shima Macias, Ph.D. 05/03/2022 Clinical Support Otorhinolaryngology Shima Macias, Ph.D. from Last 3 Months Immunizations Name Administration Dates Next Due HepB, Unspecified 05/11/1992, 11/19/1991, 10/19/1991 MMR 10/13/1990 SARS-COV-2 (COVID-19) - PFIZER (12 years 07/27/2021, 021, 10/28/2020 or older) Td Preservative Free (TENIVAC, DECAVAC) 03/11/1999 Tdap 06/27/2012, 09/23/2008 Family History Medical History Relation Name Comments Atrial fibrillation Father Akshat Dejon Coronary artery disease Father Akshat Dejon Prostate cancer Father Akshat Dejon Breast cancer Mother Odalys Ashford 2002 Dementia Mother Odalys Ashford Head injury Mother Odalys Ashford Hypertension Mother Odalys Ashford Hypothyroidism Mother Odalys Ashford Osteoporosis Mother Odalys Ashford Stroke Mother Odalys Ashford Relation Name Status Comments Father Akshat Ashford [...] How often do you attend yarsanism or restoration More than 4 time s [...] Comments Blood Pressure 140/65 10/18/2021 8:25 AM PRINT GRAPHIC DESIGNER Pulse 69 10/18/2021 8:25 AM PRINT GRAPHIC DESIGNER Temperature 36.8 ??C (98.2 ??F) 10/18/2021 4:00 AM PRINT GRAPHIC DESIGNER Respiratory Rate 16 10/18/2021 4:33 AM PRINT GRAPHIC DESIGNER Oxygen Saturation 97% 10/18/2021 8:25 AM PRINT GRAPHIC DESIGNER Inhaled Oxygen Concentration - - Weight 99.2 kg (218 lb 11.1 oz) 10/17/2021 8:45 AM PRINT GRAPHIC DESIGNER Height 155 cm (5' 1.02) 10/17/2021 8:45 AM PRINT GRAPHIC DESIGNER Body Mass Index 41.29 10/17/2021 8:45 AM PRINT GRAPHIC DESIGNER Plan of Treatment Health Maintenance Due Date [...] Additional history exists Influenza Vaccine (#1) 2022 DTaP,Tdap,and Td Vaccines (3 - Td 06/27/2022 06/27/2012, , or Tdap) 03/11/1999 Thyroid Stimulating Hormone (TSH) 09/21/2022 09/21/2021, , test for thyroid function 08/08/2012 Mammogram 07/05/2023 07/05/2022, 06/24/2021, 04/29/2020, Additional history exists Hepatitis B Vaccines Completed 05/11/1992, 04/20/1992, 11/19/1991, Additional history exists Cervical Cancer Screening Discontinued 2011 Fall Risk Screen (Annual) Completed 10/17/2021 Procedures Procedure Name Priority Date/Time Associated Comments Diagnosis BI BREAST SCREENING RAD - Routine 07/05/2022 2:55 Screening Resu lts for BILATERAL WITH (most inpatients PM PRINT GRAPHIC DESIGNER Mammogram Breast this procedure TOMOSYNTHESIS and all Cancer are in the outpatients) results section. from Last 3 Months Results BI Breast Screening Bilateral with Tomosynthesis (07/05/2022 2:55 PM PRINT GRAPHIC DESIGNER) Anatomical Region Laterality Modality Breast, Breast Imaging RST LOS, Breast Imaging ARZ LOS, Breanne st Bilateral Mammography Imaging FLA LOS Specimen (Source) Anatomical Collection Method Collection Time Re ceived Time Location / / Volume Laterality 07/05/2022 3:48 PM PRINT GRAPHIC DESIGNER Impressions 07/05/2022 3:50 PM PRINT GRAPHIC DESIGNER Negative. RECOMMENDATION: ??Annual Screening Mammo gram ASSESSMENT: ??BI-RADS: 1: Negative. Narrative 07/05/2022 3:50 PM PRINT GRAPHIC DESIGNER EXAM: ??BI BREAST SCREENING BILATERAL WITH TOMOSYNTHESIS [...] TOMOSYNTHESIS Current study was evaluated with a [employer] ter Aided Detection (CAD) system. INDICATION: Screening mammogram. COMPARISON: Prior exam(s) were available and reviewed for comparison. DENSITY: b. There are scattered areas of fibroglandular density. FINDINGS: No mammographic findings of ma lignancy. IMPRESSION: Negative. RECOMMENDATION: Annual Screening Mammogr am ASSESSMENT: BI-RADS: 1: Negative. Heath Villanueva APRN, C.N.PNaomi IMG BI PROCEDURES from Last 3 Months Insurance Payer Benefit Plan Subscriber ID Effective Dates Phone Address Type / Group [employer] [id number] 2017-Gage [phone] [address] [address] PPO [facility] [address] [place] [address] Advance Directives For more information, please contact: [phone] Latest Code Status on File Code Status [...] Due to: Not medically appropriate Care Teams Hog Worker Relationship Specialty Start Date End Date Elsewhere, Pcp PCP - General Internal Medicine 10/03/21
--- OUTSIDE RECORDS SUMMARY | 2022-07-10 12:22 | XMS_ITS | Encounter Summary ---
:1955 Author Organization [facility] Address [address] [place] [address] Care Team Providers Name Role Phone Elsewhere, Pcp Primary Care Provider Unavailable Reason for Referral Outpatient (Routine) - Authorized Specialty Diagnoses / Procedures Referred By Contact Refer red To Contact Diagnoses Hoarseness Rst [facility] Procedures ENT Speech therapy [address] [place] [phone] Referral ID Status Reason Start Date Expiration Date Visits V isits Requested Authorized [id number] Authorized 05/03/2022 05/03/2023 1 1 Reason for Visit Outpatient (Routine) - Closed Specialty Diagnoses / Procedures Referred By Contact Refer red To Contact Diagnoses Hoarseness Rst [facility] Procedures ENT Speech therapy [address] [place] [phone] Referral ID Status Reason Start Date Expiration Date Visits Requ ested Visits Authorized [id number] Closed 01/25/2022 01/25/2023 1 1 Encounter Details Date Type Department Care Team Description 05/03/2022 Clinical Support Department of Shima Macias Otorhinolaryngology mary lou Del Real, Ph.D. [place], [place] [address] [facility] [address] [place] [phone] Social History Tobacco Use Types Packs/Day Years [...] How often do you attend episcopalian or rastafarian More than 4 time s [...] Hoarseness documented in this encounter Care Teams Cps Team Lead Relationship Specialty Start Date End Date Elsewhere, Pcp PCP - General Internal Medicine 10/03/21 documented as of this encounter
--- OUTSIDE RECORDS SUMMARY | 2022-07-10 12:23 | XMS_ITS | Encounter Summary ---
:1955 Author Organization [facility] Address [address] [place] [address] Care Team Providers Name Role Phone Elsewhere, Pcp Primary Care Provider Unavailable Reason for Visit Auth/Cert Specialty Diagnoses / Procedures Referred By Contact Refer red To Contact Diagnoses Goiter Multinodular Nontoxic Goiter Multinodular Nontoxic [E04.2] Procedures NE THYROIDECTOMY TOTAL/COMPLETE NE TEST INJ VASC FLOW FLAP/GRFT THYROIDECTOMY - TOTAL PINPOINT indocyanine green fluorescent parathyroid angiography Referral ID Status Reason Start Date Expiration Date Visits Requ ested Visits Authorized [id number] 1 1 Encounter Details Date Type Department Care Team Description 10/17/2021 Surgery RST DIANE MARCELO OR Paige Nguyen, THYROIDECTOMY, NEAR [address] [facility] TOTAL. [place], [place] [address] [facility] [address] [place], [place] [phone] (Wo rk) Social History Tobacco Use Types [...] How often do you attend scientology or adventist More than 4 time s [...] Comments Blood Pressure 172/84 10/17/2021 1:30 PM RN SHIFT MGR Pulse 75 10/17/2021 1:35 PM RN SHIFT MGR Temperature 36.6 ??C (97.9 ??F) 10/17/2021 12:35 PM RN SHIFT MGR Respiratory Rate 18 10/17/2021 1:35 PM RN SHIFT MGR Oxygen Saturation 98% 10/17/2021 1:35 PM RN SHIFT MGR Inhaled Oxygen Concentration - - Weight 99.2 kg (218 lb 11.1 oz) 10/17/2021 8:45 AM RN SHIFT MGR Height 155 cm (5' 1.02) 10/17/2021 8:45 AM RN SHIFT MGR Body Mass Index 41.29 10/17/2021 8:45 AM RN SHIFT MGR documented in this encounter Discharge Summaries Torin Chavez M.D. - 10/18/2021 7:50 AM CST DISCHARGE SUMMARY BRIEF OVERVIEW Hospital: [facility] Discharge Provider: Paige Nguyen M.D. Primary Team: [...] thyroidectomy, 10/17/2021. The patient was admitted to [facility]. The patient was taken to the operating [...] were provided to the patient and caregiver(s). SHIFT MGR documented in this encounter Discharge Instructions AttachmentsThe following attachments cannot be sent through Care Everywhere. Calcitriol (By mouth) (Bhutanese)Levothyroxine (By mouth) (Bhutanese)Antacid, Calcium and Magnesium (By mouth) (Bhutanese)documented in this encounter Medications at Time of [...] 2 (two) times a day. calcitRIOL (ROCALTROL) TAKE 2 CAPSULES BY 100 capsule 2 08/202110/18/2022 0.25 mcg capsule MOUTH DAILY calcium carbonate Chew 2 tablets (400 0 2 (TUMS) 500 mg (200 mg mg of calcium total) calcium) chewable 3 (three) times a tablet day. levothyroxine TAKE 1 TABLET BY 100 tablet 1 10/18/202110/18 (SYNTHROID, LEVOTHROID) MOUTH EVERY MORNING 150 mcg tablet BEFORE BREAKFAST documented as of this encounter Progress Notes [...] in [address]. [address] Nguyen. SHIFT MGR Lora Garrett Pharm.D., R.Ph. - 10/17/2021 8:53 [...] -- Take 1 tablet by mouth daily. eomkkpq-tyjlgrtrj-wlec tablet 10/16/2021 -- -- Take 3 tablets [...] -- Take 2.5 mg by mouth daily. [facility] [place]Allergy Immunotherapy) 10/17/2021 06/27/12 -- Take 1 each by mouth as needed (allergies). Homeopathic remedy drops multivitamin (multivitamin) tablet 10/16/2021 -- -- Take 1 tablet by mouth daily. omega-3 fatty acids 1,250 mg capsule 10/16/2021 -- -- Take 1,200 mg by mouth daily. RED YEAST RICE ORAL 10/16/2021 -- -- Take 1 tablet by mouth 2 (two) times a day. SHIFT MGR documented in this encounter Nursing Notes Anabel Rosales R.N. - 10/18/2021 10:33 AM CST Patient stable at discharge. Education was reviewed with patient. Any further questions were answered. Pain was well controlled with oral pain medications. Patient discharged home with significant other. Patient needs addressed. SHIFT MGR Lora Rebolledo R.N. - 10/18/2021 5:12 AM CST Shift Goals: Clinical Goals for the Shift: rest overnight Identify possible barriers to meeting goals/advancing plan of care: none End of Shift Summary: Patient rested well overnight with minimal pain which was managed with currentregimen. Vitals remained stable with no acute events overnight. SHIFT MGR documented in this encounter OR Notes Op Note - Paige Nguyen M.D. - 10/17/2021 10:51 AM CST Pre-op Diagnosis Goiter Multinodular Nontoxic Post-op Diagnosis Goiter Multinodular Nontoxic A project assistant actively participated and was necessary for [...] was mobilized in a similar fashion. An advertising assistant was necessary to help expose and [...] without complication...Dictated by Dr. Patrick Nguyen M.D. SHIFT MGR Brief Op Note - Torin Chavez M.D. - 10/17/2021 10:51 AM CST Pre-op Diagnosis Goiter Multinodular Nontoxic Post-op Diagnosis Goiter Multinodular Nontoxic Findings Multinodular goiter. Near total thyroidectomy Complications None Darius Chavez M.D. SHIFT MGR documented in this encounter Miscellaneous Notes Hospital Course - Torin Chavez M.D. - 10/17/2021 1:49 PM CST Multinodular goiter status post near total thyroidectomy, 10/17/2021. The patient was admitted to [facility]. The patient was taken to the operating [...] patient's home medications were restarted as indicated. SHIFT MGR documented in this encounter Plan of Treatment Not on filedocumented as of this encounter Procedures Procedure Name Priority Date/Time Associated Diagnosis Comme nts CALCIUM, TOT, S/P Routine 10/18/2021 7:03 Results for this AM RN SHIFT MGR procedure are i n the results section. PARATHYROID HORMONE Routine 10/17/2021 2:42 Resul ts for this (PTH), S PM RN SHIFT MGR procedure are i n the results section. ADULT OXYGEN THERAPY Routine 10/17/2021 12:39 PM RN SHIFT MGR SURGICAL PATHOLOGY, Routine 10/17/2021 11:23 Goiter Multinodul ar Results for this [facility] AM RN SHIFT MGR Nontoxic procedure are i n the results section. THYROIDECTOMY - TOTAL 10/17/2021 10:04 Goiter Multinod ular AM RN SHIFT MGR Nontoxic documented in this encounter Results (ABNORMAL) Calcium, Total (10/18/2021 7:03 AM RN SHIFT MGR) P athologist Signature Calcium, 7.9 (L) 8.8 - 10.2 10/18/2021 DTL Total, S mg/dL 7:43 AM RN SHIFT MGR Specimen Anatomical Collection Method Collection Time Receive d Time (Source) Location / / Volume Laterality Blood (Blood, 10/18/2021 7:03 AM 10/19/19 7:03 Venous) RN SHIFT MGR AM RN SHIFT MGR Torin Chavez M.D. LAB BLOOD ADD-ON Performing Organization Address City/State/ZIP Code Phon e Number [facility] - [address] [place], [place] [address] [facility] [place] [place] [address] Laboratories-[address] (ABNORMAL) Parathyroid Hormone (PTH) (10/17/2021 2:42 PM RN SHIFT MGR) Patholo gist Method Time [facility] Parathyroid <6.0 (L) 15 - 65 10/17/2021 DT Hormone (PTH), S pg/mL 3:37 PM RN SHIFT MGR Specimen Anatomical Collection Method Collection Time Receive d Time (Source) Location / / Volume Laterality Blood (Blood, 10/17/2021 2:42 PM 10/17/19 3:09 Venous) RN SHIFT MGR PM RN SHIFT MGR Torni Chavez M.D. LAB BLOOD ADD-ON Performing Organization Address City/State/ZIP Code Phon e Number [facility] - [address] [place], [place] [address] [place] [address] [address] Surgical Pathology, Frozen Lab (10/17/2021 11:23 AM RN SHIFT MGR) Component Value Ref Test Analysis Performed Pathologis t Range Method Time At [facility] 10/20/2021 METH 4:20 PM RN SHIFT MGR Report Anca Salazar M.D. 10/20/2021 METH electronically 4:20 PM signed by RN SHIFT MGR I verify that I have examined all relevant slides/materials for the specimen(s) and rendered or confirmed the diagnosis. Gross Description A. ??Received fresh labeled left thyroid is an 18 gram 10/20/2021 METH partial thyroidectomy with 7.1 x 3.2 x 2.6 cm left lobe. 4:20 PM The lobe is received disrupted. ??There is a 1 x 0.6 x 0.4 RN SHIFT MGR cm reyes-white area identified. ??The remainder of the thyroid lobe is uniformly nodular. ??Bowling Ball Grader tissue submitted for permanent sections. ??Grossed by Parvez Salazar M.D. -Pathology Resident. B. ??Received fresh labeled right thyroid is a 40 gram partially disrupted partial thyroidectomy with a 7.1 x 4.9 x 3.5 cm right lobe, in aggregate. ??The thyroid parenchyma demonstrates multiple reyes-brown soft nodules, 0.5 to 5.1 cm. ??The largest nodule is detached and shows hemorrhagic and cystic spaces. ??Bowling Ball Grader tissue submitted for permanent sections. ??Grossed by Derian Rodgers, PA([facility]). Block Summary A Left thyroid 10/20/2021 METH A1 Left thyroid 4:20 PM A2 Left thyroid sales representative girls' apparel section C ST B Right thyroid B1 Right superior B2 Right mid B3 Right inferior B4 Dominant detached nodule Interpretation FINAL DIAGNOSIS 10/20/2021 METH 4:20 PM A. ??Thyroid, left, left lobectomy: ??Hyperplastic nodules. RN SHIFT MGR Mild chronic thyroiditis. B. ??Thyroid, right, right lobectomy: ??Hyperplastic in adenomatous nodules with degenerative features. ??Mild chronic thyroiditis. Congo red performed at [facility] on section from block B4 is negative. Specimen (Source) Anatomical Collection Method Collection Time Re ceived Time Location / / Volume Laterality Tissue (Thyroid) 10/17/2021 11:23 AM RN SHIFT MGR Tissue (Thyroid) 10/17/2021 11:32 AM RN SHIFT MGR Narrative This result has an attachment that is no t available. Paige Nguyen M.D. LAB SURG PATH ORDERABLES Performing Organization Address City/State/ZIP Code Phon e Number [facility] - [address] [place], [place] [address] [facility] [place] [place] [address] Laboratories-[facility] [address] documented in this [...] tablet 1,000 mg Given 10/17/2021 9:50 AM RN SHIFT MGR 1,000 mg (TYLENOL) 1,000 mg, oral, Once, On Sun10/17/21 at 1000, For 1 dose, Pre-Op, Interlacer, PreOp with sips acetaminophen tablet 1,000 mg (TYLENOL) Given 10/18/2021 9:23 AM RN SHIFT MGR 1,000 mg 1,000 mg, oral, Every 6 hours, First dose (after last modification) on Sun10/17/21 at 2200, (not to exceed 4 grams in 24 hours) Given 10/18/2021 4:05 AM RN SHIFT MGR 1,000 mg Given 10/17/2021 10:09 PM RN SHIFT MGR 1,000 mg acetaminophen tablet 500 mg (TYLENOL) Given 10/17/2021 3:54 PM RN SHIFT MGR 500 mg 500 mg, oral, Every 6 hours, First dose on Sun10/17/21 at 1600, (not to exceed 4 grams in 24 hours) calcitRIOL capsule 0.5 mcg (ROCALTROL) Given 10/18/2021 8:24 AM RN SHIFT MGR 0.5 mcg 0.5 mcg, oral, Daily, First dose on Sun10/17/21 at 1730 Given 10/17/2021 6:02 PM RN SHIFT MGR 0.5 mcg calcium carbonate chewable tablet Given 10/18/2021 8:2 4 AM RN SHIFT MGR 600 mg of calcium 600 mg of calcium (TUMS E-X) 600 mg of calcium, oral, 3 times daily, First dose on Sun10/17/21 at 2100, Doses listed are in mg of elemental calcium. Take with food. 750 mg calcium carbonate contains 300 mg of elemental calcium. Given 10/17/2021 8:45 PM RN SHIFT MGR 600 mg of calcium cellulose, oxidized 1 X 2 pad (SURGICE L) Given 10/17/2021 11:55 AM RN SHIFT MGR 1 each As needed, Starting on Sun10/17/21 at 1154, Intra-Op Given 10/17/2021 11:54 AM RN SHIFT MGR 1 each fentaNYL injection 25 mcg (SUBLIMAZE) Given 10/17/2021 12:51 PM RN SHIFT MGR 25 mcg 25 mcg, intravenous, Every 2 min PRN, For pain 4 or greater (maximum 100 mcg). If max dose of Fentanyl is reached and if pain is greater than 4, discontinue Fentanyl: give Hydromorphone, Starting on Sun10/17/21 at 1239, PACU (only) Given 10/17/2021 12:48 PM RN SHIFT MGR 25 mcg Given 10/17/2021 12:44 PM RN SHIFT MGR 25 mcg HYDROmorphone (PF) injection 0.2 mg Given 10/17/2021 1:45 PM RN SHIFT MGR 0.2 mg (DILAUDID) 0.2 mg, intravenous, Every 5 min PRN, moderate pain or score 4-6 of 10, severe pain or score 7-10 of 10, Starting on Sun10/17/21 at 1239, PACU (only), Up to maximum total dose of 2 mg Given 10/17/2021 1:40 PM RN SHIFT MGR 0.2 mg labetalol injection 5 mg (NORMODYNE,AHMADI DATE) Given 10/17/2021 1:16 PM RN SHIFT MGR 5 mg 5 mg, intravenous, Every 15 min PRN, high blood pressure, For SBP>160 mmHG. Hold for heart rate<60, Starting on Sun10/17/21 at 1239, For 2 doses, PACU (only), Follow institution's IV administration guidelines Given 10/17/2021 1:00 PM RN SHIFT MGR 5 mg lactated ringers Continued from OR 10/17/2021 1:01 PM RN SHIFT MGR 20 mL/hr 20 mL/hr 20 mL/hr, intravenous, Continuous, Starting on Sun10/17/21 at 1100, PACU & Post-Op lisinopriL tablet 2.5 mg (PRINIVIL,ZESTR IL) Given 10/18/2021 8:24 AM RN SHIFT MGR 2.5 mg 2.5 mg, oral, Daily, First dose on Sun10/17/21 at 1430 Given 10/17/2021 2:54 PM RN SHIFT MGR 2.5 mg NaCl 0.45 % infusion New Bag 10/17/2021 2:39 PM RN SHIFT MGR 30 mL/hr 30 mL/hr 30 mL/hr, intravenous, [...] Recently Administered Medications Times are shown in RN SHIFT MGR. Scheduled Medication Order 10/16/2021 10/17/2021 10/18/2021 acetaminophen tablet 1,000 mg (TYLENOL) (COMPLETED) 0950 (Given - Provider: Paz Kohli R.N.) 1,000 mg, oral, Once, On Sun10/17/21 at 1000, For 1 dose, Pre-Op, Interlacer, PreOp with sips acetaminophen tablet 1,000 mg [...] 1204 documented in this encounter Care Teams Intelligence Director Relationship Specialty Start Date End Date Elsewhere, Pcp PCP - General Internal Medicine 10/03/21 documented as of this encounter
--- OUTSIDE RECORDS SUMMARY | 2022-07-10 12:23 | XMS_ITS | Encounter Summary ---
:1955 Author Organization [facility] Address [address] [place] [address] Care Team Providers Name Role Phone Elsewhere, Pcp Primary Care Provider Unavailable Encounter Details Date Type Department Care Team Description 10/14/2021 Lab Department of Paige Doll Go iter [facility], [facility], in [place], [address] [place] [id number] [place] [address] [phone] Social History Tobacco Use Types Packs/Day Years [...] How often do you attend bahai or temple More than 4 time s [...] r Results for this RNA, V AM ANIMAL BEHAVIOURIST Nontoxic procedure are i n the results section. documented in this encounter Results SARS Coronavirus-2 RNA, V Asymptomatic (10/14/2021 10:27 AM ANIMAL BEHAVIOURIST) [facility] Method Time Signature SARS-CoV-2 Swab, 10/14/2021 ECLR Specimen Nasopharynx 10:10 PM Source ANIMAL BEHAVIOURIST SARS CoV-2 Undetected Undetected 10/14/2021 ECLR RNA, TMA 10:10 PM ANIMAL BEHAVIOURIST Comment: SARS-CoV-2 RNA absent. This result does not rule out COVID-19 in the patient, as the sensitivity of the test depends o n the timing of the specimen collection and the quality of the specim en. Result should be correlated with patient's history and clinical presentat ion. ----ADDITIONAL INFORMATION---- This molecular amplification test was pe rformed using the Aptima SARS-CoV-2 assay ([employer] on the ipadios tem under emergency use authorization (EUA) by the U.S. Food and Drug Administ ration. Fact sheets for this EUA assay can be fo und at the following links: For Healthcare Providers: https://www.fd a.gov/media/275133/download For Patients: https://www.fda.gov/media/ 453901/download Specimen Anatomical Collection Method Collection Time Receive d Time (Source) Location / / Volume Laterality Varies 10/14/2021 10:27 10/14/2021 2:43 (Nasopharynx) AM ANIMAL BEHAVIOURIST PM ANIMAL BEHAVIOURIST Paige Nguyen M.D. LAB MICROBIOLOGY - GENERAL O RDERABLES Performing Organization Address City/State/ZIP Code Phon e Number [facility]- [address] [place] [address] [phone] [facility] [place] [address] System in [address] documented in this encounter Visit Diagnoses Diagnosis Goiter Multinodular Nontoxic documented in this encounter Additional Health Concerns Infection Onset Date Last Indicated Resolved Time COVID19 Pending 10/14/2021 10/14/2021 10/14/2021 10:11 PM ANIMAL BEHAVIOURIST documented as of this encounter Care Teams Construction Project Coordinator Relationship Specialty Start Date End Date Elsewhere, Pcp PCP - General Internal Medicine 10/03/21 documented as of this encounter
--- OUTSIDE RECORDS SUMMARY | 2022-07-10 12:23 | XMS_ITS | Encounter Summary ---
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 [place], [place] [address] [facility] [address] [place], [place] [phone] (Wo rk) Anesthesia Record Procedure Summary Procedure [...] h andoff to the receiving staff during [facility] we 1. Identified the patient 2. [...] How often do you attend muslim or caodaism More than 4 time s [...] Procedure Summary Date: 10/17/21 Room / Location: [address] / [facility] in [place], [place] Anesthesia Start: 1019 Anesthesia Stop: Procedure: [...] Post Op nausea/vomiting: none Hydration status: euvolemic CH DIGGING MACHINE OPERATOR Anesthesia Procedure Notes - Andrew Rivero R.N., [...] ETT location: oral VL device: glide scope [place] scope blade size: 3 Adult tube size: [...] successful Airway event: no complications ATTESTATION STATEMENT CH DIGGING MACHINE OPERATOR Anesthesia Preprocedure Evaluation - Lion Singh M.D., Nilam - 10/17/2021 10:00 AM CST Preprocedure Anesthesia & H&P Assessment Procedure Summary Date/Time: 10/17/21 1049 Procedures: THYROIDECTOMY, TOTAL. (N/A ) PINPOINT indocyanine green fluorescent parathyroid angiography. 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 Location: [address] / [facility] in [place], [place] Providers: Paige Nguyen M.D. Pertinent components [...] with patient /legal guardian or through an internet manager. Risks/Benefits/Alternatives of Blood transfusion discussed with patient / legal guardian, including an opportunity to ask questions and/or decline some or all transfusion therapies. The patient / legalguardian consented to the use of all blood products, as deemed medically necessary Approval to Proceed: approved for anesthesia CH DIGGING MACHINE OPERATOR documented in this encounter Plan of Treatment Not on filedocumented as of this encounter Procedures Procedure Name Priority Date/Time Associated Comments Diagnosis LDA ANE ENDOTRACHEAL Routine 10/17/2021 10:30 Res ults for this AIRWAY AM TRENCH DIGGING MACHINE OPERATOR procedure are i n the results section. documented in this encounter Results LDA ANE ENDOTRACHEAL AIRWAY (10/17/2021 10:30 AM TRENCH DIGGING MACHINE OPERATOR) Narrative Andrew Rivero R.N., [place] - 10:30 AM TRENCH DIGGING MACHINE OPERATOR Andrew Rivero R.N., BEST ? 10/17/2021 10:41 [...] ETT location: oral VL device: glide scope [place] scope blade size: 3 Adult tube size: [...] dexAMETHasone injection (DECADRON) Given 10/17/2021 10:43 AM TRENCH DIGGING MACHINE OPERATOR 4 mg intravenous, As needed, Starting on Sun10/17/21 at 1043, Anesthesia Intra-op fentaNYL injection (SUBLIMAZE) Given 10/17/2021 11:55 AM TRENCH DIGGING MACHINE OPERATOR 25 mcg intravenous, As needed, Starting on Sun10/17/21 at 1026, Anesthesia Intra-op Given 10/17/2021 11:32 AM TRENCH DIGGING MACHINE OPERATOR 25 mcg Given 10/17/2021 10:44 AM TRENCH DIGGING MACHINE OPERATOR 50 mcg lactated ringers New Bag 10/17/2021 10:23 AM TRENCH DIGGING MACHINE OPERATOR intravenous, Continuous Infusion: Per Instructions PRN, Starting on Sun10/17/21 at 1023, Anesthesia Intra-op lidocaine (PF) (cardiac) injection Given 10/17/2021 12:07 PM TRENCH DIGGING MACHINE OPERATOR 40 mg intravenous, As needed, Starting on Sun10/17/21 at 1028, Anesthesia Intra-op Given 10/17/2021 10:28 AM TRENCH DIGGING MACHINE OPERATOR 60 mg ondansetron (PF) injection (ZOFRAN) Given 10/17/2021 11:57 AM TRENCH DIGGING MACHINE OPERATOR 4 mg intravenous, As needed, Starting on Sun10/17/21 at 1157, Anesthesia Intra-op phenylephrine injection Given 10/17/2021 10:43 AM TRENCH DIGGING MACHINE OPERATOR 100 mcg intravenous, As needed, Starting on Sun10/17/21 at 1043, Anesthesia Intra-op propofol 10 mg/mL infusion Rate/Dose 10/17/2021 75 mcg/kg/min 44.64 (DIPRIVAN) Change 12:14 PM TRENCH DIGGING MACHINE OPERATOR mL/hr intravenous, Continuous Infusion: Per Instructions PRN, Starting on Sun10/17/21 at 1029, Anesthesia Intra-op Rate/Dose Change 10/17/2021 12:12 PM TRENCH DIGGING MACHINE OPERATOR 100 mcg/kg/min 59.52 mL/hr Rate/Dose Change 10/17/2021 12:08 PM TRENCH DIGGING MACHINE OPERATOR 125 mcg/kg/min 74.4 mL/hr propofoL injection (DIPRIVAN) Given 10/17/2021 10:58 AM TRENCH DIGGING MACHINE OPERATOR 20 mg intravenous, As needed, Starting on Sun10/17/21 at 1028, Anesthesia Intra-op Given 10/17/2021 10:49 AM TRENCH DIGGING MACHINE OPERATOR 20 mg Given 10/17/2021 10:39 AM TRENCH DIGGING MACHINE OPERATOR 20 mg remifentaniL 20 mcg/mL in NaCl New Bag 10/17/2021 10:29 0.2 mc g/kg/min 59.52 mL/hr 0.9% 100 mL infusion (ULTIVA) AM TRENCH DIGGING MACHINE OPERATOR intravenous, Continuous Infusion: Per Instructions PRN, Starting on Sun10/17/21 at 1029, Anesthesia Intra-op succinylcholine (PF) injection (ANECTINE ) Given 10/17/2021 10:28 AM TRENCH DIGGING MACHINE OPERATOR 100 mg intravenous, As needed, Starting on Sun10/17/21 at 1028, Anesthesia Intra-op documented in this encounter Care Teams Scrape Gatherer Relationship Specialty Start Date End Date Elsewhere, Pcp PCP - General Internal Medicine 10/03/21 documented as of this encounter
--- OUTSIDE RECORDS SUMMARY | 2022-07-10 12:23 | XMS_ITS | Encounter Summary ---
:1955 Author Organization [facility] Address [address] [place] [address] Care Team Providers Name Role Phone Unavailable Primary Care Provider Unavailable Encounter Details Date Type Department Care Team Description 09/21/2021 Hospital Encounter Department of Estrella Sevilla Goiter Multinodular Laboratory Medicine M.DNaomi Nontoxic and Pathology, [address] [place] [address] in [place], [place] [phone] [place] [address] [place], [place] (Work) [phone] Social History Tobacco Use Types Packs/Day Years [...] How often do you attend hindu or druze More than 4 time s [...] mg(1,250mg) -125 mouth daily. unit per tablet ixjkqxe-bzxvrusup-mgmr Take 3 tablets by 0 10/18/2021 tablet mouth daily. Calcium 1000 mg/magnesium 500 mg/zinc 25 mg cholecalciferol Take 2,000 Units by 0 10/18/2021 (for_VITAMIN D3) 2,000 mouth daily. Unit capsule omega 0-lxd-ydt-fish oil Take 1 capsule by 0 /04/201410/03/2021 600 mg-216 mg- 324 mouth daily. mg-1,200 mg capsule,delayed release(DR/EC) documented as of this encounter Plan of Treatment Not on filedocumented as of this encounter Procedures Procedure Name Priority Date/Time Associated Diagnosis Comme nts 25-HYDROXYVITAMIN Routine 09/21/2021 12:11 Goiter Multinodular Results for this D2 AND D3, S PM DIRECTOR PROCESS IMPROVEMENT Nontoxic procedure are i n the results section. CBC WITHOUT Routine 09/21/2021 12:11 Goiter Multinodular Resu lts for this DIFFERENTIAL, B PM DIRECTOR PROCESS IMPROVEMENT Nontoxic procedure ar e in the results section. THYROID-STIMULATING Routine 09/21/2021 12:11 Goiter Multinodul ar Results for this HORMONE-SENSITIVE PM DIRECTOR PROCESS IMPROVEMENT Nontoxic procedure are in (S-TSH) the results section. T4 (THYROXINE), Routine 09/21/2021 12:11 Goiter Multinodular R esults for this FREE, S PM DIRECTOR PROCESS IMPROVEMENT Nontoxic procedure are i n the results section. CALCIUM, TOT, S/P Routine 09/21/2021 12:11 Goiter Multinodular Results for this PM DIRECTOR PROCESS IMPROVEMENT Nontoxic procedure are i n the results section. documented in this encounter Results T4 (Thyroxine), Free (09/21/2021 12:11 PM DIRECTOR PROCESS IMPROVEMENT) athologist Signature T4 (Thyroxine), 1.2 0.9 - 1.7 09/21/2021 DTL Free, S ng/dL 1:24 PM DIRECTOR PROCESS IMPROVEMENT Specimen Anatomical Collection Method Collection Time Receive d Time (Source) Location / / Volume Laterality Blood (Blood, 09/21/2021 12:11 09/21/2021 Venous) PM DIRECTOR PROCESS IMPROVEMENT 12:52 PM DIRECTOR PROCESS IMPROVEMENT Estrella Sevilla M.D. LAB BLOOD ADD-ON Performing Organization Address City/State/ZIP Code Phon e Number [facility] - [address] [place], [place] [address] [facility] [place] [address] Laboratories-[facility] [address] Calcium, Total (09/21/2021 12:11 PM DIRECTOR PROCESS IMPROVEMENT) athologist Signature Calcium, Total, 9.0 8.8 - 10.2 09/21/2021 DTL S mg/dL 1:24 PM DIRECTOR PROCESS IMPROVEMENT Specimen Anatomical Collection Method Collection Time Receive d Time (Source) Location / / Volume Laterality Blood (Blood, 09/21/2021 12:11 09/21/2021 Venous) PM DIRECTOR PROCESS IMPROVEMENT 12:52 PM DIRECTOR PROCESS IMPROVEMENT Estrella Sevilla M.D. LAB BLOOD ADD-ON Performing Organization Address City/State/[facility] Code Phon e Number [facility] - 200 [place], [place] [address] [facility] [place] [address] Laboratories-[address] S-TSH (Thyroid-Stimulating Hormone - Sensitive) (09/21/2021 12:11 PM DIRECTOR PROCESS IMPROVEMENT) athologist Signature TSH, Sensitive 1.7 0.3 - 4.2 09/21/2021 DTL mIU/L 1:24 PM DIRECTOR PROCESS IMPROVEMENT Specimen Anatomical Collection Method Collection Time Receive d Time (Source) Location / / Volume Laterality Blood (Blood, 09/21/2021 12:11 09/21/2021 Venous) PM DIRECTOR PROCESS IMPROVEMENT 12:52 PM DIRECTOR PROCESS IMPROVEMENT Estrella Sevilla M.D. LAB BLOOD ADD-ON Performing Organization Address City/[facility] Code Phon e Number [facility] - 200 [place], [place] [address] [facility] [place] [address] Laboratories-[address] CBC without Differential (09/21/2021 12:11 PM DIRECTOR PROCESS IMPROVEMENT) athologist Signature Hemoglobin 14.3 11.6 - 09/21/2021 DTL 15.0 g/dL 12:45 PM DIRECTOR PROCESS IMPROVEMENT Hematocrit 43.8 35.5 - 09/21/2021 DTL 44.9 % 12:45 PM DIRECTOR PROCESS IMPROVEMENT Erythrocytes 4.79 3.92 - 09/21/2021 DTL 5.13 12:45 PM DIRECTOR PROCESS IMPROVEMENT x10(12)/L MCV 91.4 78.2 - 09/21/2021 DTL 97.9 fL 12:45 PM DIRECTOR PROCESS IMPROVEMENT RBC Distrib Width 13.2 12.2 - 09/21/2021 DTL 16.1 % 12:45 PM DIRECTOR PROCESS IMPROVEMENT Platelet Count 186 157 - 371 09/21/2021 DTL x10(9)/L 12:45 PM DIRECTOR PROCESS IMPROVEMENT Leukocytes 6.3 3.4 - 9.6 09/21/2021 DTL x10(9)/L 12:45 PM DIRECTOR PROCESS IMPROVEMENT Specimen Anatomical Collection Method Collection Time Receive d Time (Source) Location / / Volume Laterality Blood (Blood, 09/21/2021 12:11 09/21/2021 Venous) PM DIRECTOR PROCESS IMPROVEMENT 12:38 PM DIRECTOR PROCESS IMPROVEMENT Estrella Sevilla M.D. LAB BLOOD ADD-ON Performing Organization Address City/State/ZIP Code Phon e Number [facility] - [address] [place], [place] [address] [facility] [place] [address] Laboratories-[facility] [address] 25-Hydroxyvitamin D2 and D3 (09/21/2021 12:11 PM DIRECTOR PROCESS IMPROVEMENT) athologist Signature 25-Hydroxy D2 <4.0 ng/mL 09/22/2021 SDSC 3:15 PM DIRECTOR PROCESS IMPROVEMENT 25-Hydroxy D3 44 ng/mL 09/22/2021 SDSC 3:15 PM DIRECTOR PROCESS IMPROVEMENT 25-Hydroxy D 44 ng/mL 09/22/2021 SDS Total 3:15 PM DIRECTOR PROCESS IMPROVEMENT Comment: ----REFERENCE VALUE---- 25-HYDROXY D TOTAL (D2+D3) Optimum level s in the healthy population are 20-50, patients with bone disease may benefit from higher levels within this r [place]. ----ADDITIONAL INFORMATION---- This test was developed and its performa nce characteristics determined by [facility] in a manner consistent with CLIA requirements. This test has not been cleared or approved by the [place] Franc[place] d and Drug Administration. Specimen Anatomical Collection Method Collection Time Receive d Time (Source) Location / / Volume Laterality Blood (Blood, 09/21/2021 12:11 09/22/2021 7:15 Venous) PM DIRECTOR PROCESS IMPROVEMENT AM DIRECTOR PROCESS IMPROVEMENT Estrella Sevilla M.D. LAB BLOOD ADD-ON Performing Organization Address City/State/ZIP Code Phon e Number [facility] [address] [place], [place] [address] [facility] [place] [address] Laboratory Medicine and Pathology [address] [place] documented in this encounter Visit Diagnoses Diagnosis Goiter Multinodular Nontoxic documented in this encounter
--- OUTSIDE RECORDS SUMMARY | 2022-07-10 12:23 | XMS_ITS | Encounter Summary ---
:1955 Author Organization [facility] Address [address] [place] [address] Care Team Providers Name Role Phone Elsewhere, Pcp Primary Care Provider Unavailable Reason for Referral Speech Pathology (Routine) - Closed Specialty Diagnoses / Procedures Referred By Contact Refer red To Contact Diagnoses Hoarseness Ashanti Hendricks M.D. [facility] Procedures CONVERTER OPERATOR Voice evaluation [address] [place], [place] [phone] Referral ID Status Reason Start Date Expiration Date Visits Requ ested Visits Authorized [id number] Closed 12/14/2021 12/14/2022 1 1 Encounter Details Date Type Department Care Team Description 12/14/2021 Clinical Department of Cassandra Smith Otorhinolaryngology in [place], [place] [address] [place] [phone] Social History Tobacco Use Types Packs/Day [...] How often do you attend amish or pentecostalism More than 4 time s [...] me. She would also benefit from an CONVERTER OPERATOR appointment same day but after seeing me. [...] Primary documented in this encounter Care Teams Filer Repairer Relationship Specialty Start Date End Date Elsewhere, Pcp PCP - General Internal Medicine 10/03/21 documented as of this encounter
--- OUTSIDE RECORDS SUMMARY | 2022-07-10 12:23 | XMS_ITS | Encounter Summary ---
:1955 Author Organization [facility] Address [address] [place] [address] Care Team Providers Name Role Phone Elsewhere, Pcp Primary Care Provider Unavailable Reason for Referral Outpatient (Routine) - Authorized Specialty Diagnoses / Procedures Referred By Contact Refer red To Contact Endocrinology Estrella Sevilla M.D. [facility] [address] [place] [phone] Referral ID Status Reason Start Date Expiration Date Visits V isits Requested Authorized [id number] Authorized 10/21/2021 10/21/2022 1 1 ERS COMPENSATION PARALEGAL Encounter Details Date Type Department Care Team Description 10/21/2021 Orders Only Division of Estrella Sevilla Goiter Multin odular Endocrinology in M.DNaomi Nontoxic (Primary Dx) [address] [place] [phone] Social History Tobacco Use Types Packs/Day Years [...] How often do you attend yazdanism or scientology More than 4 time s [...] Name Type Priority Associated Diagnoses Order S chej luis S-TSH Lab Routine Goiter Multinodular Expected : [...] Primary documented in this encounter Care Teams Filler Shaker Relationship Specialty Start Date End Date Elsewhere, Pcp PCP - General Internal Medicine 10/03/21 documented as of this encounter
--- OUTSIDE RECORDS SUMMARY | 2022-07-10 12:23 | XMS_ITS | Encounter Summary ---
:1955 Author Organization [facility] Address [address] [place] [address] Care Team Providers Name Role Phone Unavailable Primary Care Provider Unavailable Reason for Referral Outpatient (Routine) - Pending Review Specialty Diagnoses / Procedures Referred By Contact Refer red To Contact Diagnoses Goiter Multinodular Nontoxic Zelda Dang M.D. Procedures FNA Neck [address] [place], [place] [phone] Referral ID Status Reason Start Date Expiration Date Visits V isits Requested Authorized [id number] Pending 09/21/2021 09/21/2022 1 1 Review ICATIONS ANALYST Reason for Visit Reason Comments Other END Thyroid USG Outpatient (Routine) - Closed Specialty Diagnoses / Procedures Referred By Contact Refer red To Contact Diagnoses Goiter Multinodular Nontoxic Estrella Sevilla M.D. [facility] Procedures END Thyroid USG [address] [place] [phone] Referral ID Status Reason Start Date Expiration Date Visits Requ ested Visits Authorized [id number] Closed 09/21/2021 09/21/2022 1 1 Encounter Details Date Type Department Care Team Description 09/21/2021 Procedure visit Division of Estrella Sevilla M .D. [address] [place] [phone] Goiter Multinodular Endocrinology in Zelda Dang M.D. [address] [place] [phone] Nontoxic [place], [place] 200 [place] [phone] Social History Tobacco Use Types [...] How often do you attend confucianist or mosque More than 4 time s [...] within medical record for completed patient education. ICATIONS ANALYST documented in this encounter Procedure Notes Zelda [...] the procedure well. Post procedure pain 0/10 ICATIONS ANALYST documented in this encounter Plan of Treatment Not on filedocumented as of this encounter Procedures Procedure Name Priority Date/Time Associated Diagnosis Comme nts NC FNA BX W/US GDN Routine 09/21/2021 12:00 Goiter Multinodula r Results for this EA ADDL PM APPLICATIONS ANALYST Nontoxic procedure are i n the results section. NC FNA BX W/US GDN Routine 09/21/2021 12:00 Goiter Multinodula r Results for this 1ST LES PM APPLICATIONS ANALYST Nontoxic procedure are i n the results section. CYTOLOGY FINE Routine 09/21/2021 10:46 Goiter Multinodular Res ults for this NEEDLE ASPIRATION AM APPLICATIONS ANALYST Nontoxic procedure are in (INCLUDES CORE the results BIOPSIES section. documented in this encounter Results NC FNA BX W/US GDN 1ST LES, NC FNA BX W/US GDN EA ADDL (09/21/2021 12:00 PM APPLICATIONS ANALYST) Narrative MMODAL - 09/21/2021 12:00 PM APPLICATIONS ANALYST Zelda Dang M.D. ? 09/22/2021 ??7:57 AM [...] Aspiration (including core biopsies) (09/21/2021 10:46 AM APPLICATIONS ANALYST) Component Value Ref Test Analysis Performed At [facility] gist Range Method Time Signature 09/21/2021 DTL 2:09 PM APPLICATIONS ANALYST Participated in Josh Nance 09/21/2021 DTL the Interpretation MSolitario-Patholog 2:09 PM APPLICATIONS ANALYST y Resident Report Elizabeth Green M.D. 09/21/2021 DTL electronically 2:09 PM APPLICATIONS ANALYST signed by I verify that I have examined all relevant slides/materials for the specimen(s) and rendered or confirmed the diagnosis. Gross Description A: ?? Received 16 alcohol-fixed smears. 09/21/2021 DTL 2:09 PM APPLICATIONS ANALYST B: ?? Received 13 alcohol-fixed smears. Source A. Thyroid, Right, fine needle aspiration 09/21/2021 DTL 2:09 PM APPLICATIONS ANALYST B. Thyroid, Left, fine needle aspiration Interpretation A. Thyroid, Right, fine needle aspiration (smears): 09/21/2021 DTL Negative 2:09 PM APPLICATIONS ANALYST for malignancy. Cytologic features consistent with benign thyroid nodule. B. Thyroid, Left, fine needle aspiration (smears): Negative for malignancy. Cytologic features consistent with benign thyroid nodule. Specimen (Source) Anatomical Collection Method Collection Time Re ceived Time Location / / Volume Laterality Aspirate 09/21/2021 10:46 (Thyroid, Right) AM APPLICATIONS ANALYST Aspirate 09/21/2021 10:47 (Thyroid, Left) AM APPLICATIONS ANALYST Narrative This result has an attachment that is no t available. Estrella Sevilla M.D. LAB SURG PATH ORDERABLES Performing Organization Address City/State/ZIP Code Phon e Number [facility] - [address] [place], [place] [address] [facility] [place] [place] [address] Laboratories-[facility] [address] documented in this encounter Visit Diagnoses Diagnosis Goiter Multinodular Nontoxic documented in this encounter Administered Medications Inactive Administered Medications - up to 3 most recent administrations Medication Order MAR Action Action Date Dose Rate Site lidocaine 4 % cream 1 Given 09/21/2021 10:37 AM 1 application application (LMX) APPLICATIONS ANALYST 1 application (5 g), topical, As needed, Apply for local anesthesia, Starting on Sun09/21/21 at 0932 documented in this encounter
--- OUTSIDE RECORDS SUMMARY | 2022-07-10 12:23 | XMS_ITS | Encounter Summary ---
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 [facility] [address] [place], [place] Floor [phone] [address] [facility] [phone] [place], [place] (Work) [phone] Social History Tobacco Use [...] How often do you attend congregation or restoration More than 4 time s [...] Comments Blood Pressure 140/65 10/18/2021 8:25 AM PRIVATE DUTY RN Pulse 69 10/18/2021 8:25 AM PRIVATE DUTY RN Temperature 36.8 ??C (98.2 ??F) 10/18/2021 4:00 AM PRIVATE DUTY RN Respiratory Rate 16 10/18/2021 4:33 AM PRIVATE DUTY RN Oxygen Saturation 97% 10/18/2021 8:25 AM PRIVATE DUTY RN Inhaled Oxygen Concentration - - Weight 99.2 kg (218 lb 11.1 oz) 10/17/2021 8:45 AM PRIVATE DUTY RN Height 155 cm (5' 1.02) 10/17/2021 8:45 AM PRIVATE DUTY RN Body Mass Index 41.29 10/17/2021 8:45 AM PRIVATE DUTY RN documented in this encounter Discharge Summaries Torin Chavez M.D. - 10/18/2021 7:50 AM CST DISCHARGE SUMMARY BRIEF OVERVIEW Hospital: [facility] Scientologist [place] Discharge Provider: Paige Nguyen M.D. Primary Team: [...] thyroidectomy, 10/17/2021. The patient was admitted to [facility]. The patient was taken to the [...] were provided to the patient and caregiver(s). ATE DUTY RN documented in this encounter Discharge Instructions AttachmentsThe following attachments cannot be sent through Care Everywhere. Calcitriol (By mouth) (Peruvian)Levothyroxine (By mouth) (Peruvian)Antacid, Calcium and Magnesium (By mouth) (Peruvian)documented in this encounter Medications at Time of [...] at 6 weeks, 6 months and yearly. ATE DUTY RN Torin Chavez M.D. - 10/18/2021 7:39 AM CST No [...] in [address] Nguyen. ATE DUTY RN Lora Garrett Pharm.D., R.Ph. - 10/17/2021 8:53 [...] -- Take 1 tablet by mouth daily. [id number] tablet 10/16/2021 -- -- Take 3 tablets [...] -- Take 2.5 mg by mouth daily. [facility] Prescription (Allergy Immunotherapy) 10/17/2021 [...] by mouth 2 (two) times a day. ATE DUTY RN documented in this encounter Nursing Notes Anabel Rosales R.N. - 10/18/2021 10:33 AM CST Patient stable at discharge. Education was reviewed with patient. Any further questions were answered. Pain was well controlled with oral pain medications. Patient discharged home with significant other. Patient needs addressed. ATE DUTY RN Lora Rebolledo R.N. - 10/18/2021 5:12 AM CST Shift Goals: Clinical Goals for the Shift: rest overnight Identify possible barriers to meeting goals/advancing plan of care: none End of Shift Summary: Patient rested well overnight with minimal pain which was managed with currentregimen. Vitals remained stable with no acute events overnight. ATE DUTY RN documented in this encounter OR Notes Op Note - Paige Nguyen M.D. - 10/17/2021 10:51 AM CST Pre-op Diagnosis Goiter Multinodular Nontoxic Post-op Diagnosis Goiter Multinodular Nontoxic A real estate administrative assistant actively participated and was necessary for [...] was mobilized in a similar fashion. An property assistant was necessary to help expose and [...] without complication...Dictated by Dr. Patrick Nguyen M.D. ATE DUTY RN Brief Op Note - Torin Chaevz M.D. - 10/17/2021 10:51 AM CST Pre-op Diagnosis Goiter Multinodular Nontoxic Post-op Diagnosis Goiter Multinodular Nontoxic Findings Multinodular goiter. Near total thyroidectomy Complications None Darius Chavez M.D. ATE DUTY RN documented in this encounter Miscellaneous Notes Hospital Course - Torin Chavez M.D. - 10/17/2021 1:49 PM CST Multinodular goiter status post near total thyroidectomy, 10/17/2021. The patient was admitted to [facility]. The patient was taken to the [...] patient's home medications were restarted as indicated. ATE DUTY RN documented in this encounter Plan of Treatment Not on filedocumented as of this encounter Procedures Procedure Name Priority Date/Time Associated Diagnosis Comme nts CALCIUM, TOT, S/P Routine 10/18/2021 7:03 Results for this AM PRIVATE DUTY RN procedure are i n the results section. PARATHYROID HORMONE Routine 10/17/2021 2:42 Resul ts for this (PTH), S PM PRIVATE DUTY RN procedure are i n the results section. ADULT OXYGEN THERAPY Routine 10/17/2021 12:39 PM PRIVATE DUTY RN SURGICAL PATHOLOGY, Routine 10/17/2021 11:23 Goiter Multinodul ar Results for this [facility] AM PRIVATE DUTY RN Nontoxic procedure are i n the results section. THYROIDECTOMY - TOTAL 10/17/2021 10:04 Goiter Multinod ular AM PRIVATE DUTY RN Nontoxic documented in this encounter Results (ABNORMAL) Calcium, Total (10/18/2021 7:03 AM PRIVATE DUTY RN) P athologist Signature Calcium, 7.9 (L) 8.8 - 10.2 10/18/2021 DTL Total, S mg/dL 7:43 AM PRIVATE DUTY RN Specimen Anatomical Collection Method Collection Time Receive d Time (Source) Location / / Volume Laterality Blood (Blood, 10/18/2021 7:03 AM 10/19/19 7:03 Venous) PRIVATE DUTY RN AM PRIVATE DUTY RN Torin Chavez M.D. LAB BLOOD ADD-ON Performing Organization Address City/[facility]/ZIP Code Phon e Number [facility] - [address] [place] [id number] [address] [facility] [place] [address] Laboratories-[address] (ABNORMAL) Parathyroid Hormone (PTH) (10/17/2021 2:42 PM PRIVATE DUTY RN) Patholo gist Method Time [facility] Parathyroid <6.0 (L) 15 - 65 10/17/2021 DT Hormone (PTH), S pg/mL 3:37 PM PRIVATE DUTY RN Specimen Anatomical Collection Method Collection Time Receive d Time (Source) Location / / Volume Laterality Blood (Blood, 10/17/2021 2:42 PM 10/17/19 3:09 Venous) PRIVATE DUTY RN PM PRIVATE DUTY RN Torin Chavez M.D. LAB BLOOD ADD-ON Performing Organization Address [facility] Phon e Number [facility] - [address] [address] Laboratories[address] Surgical Pathology, Frozen Lab (10/17/2021 11:23 AM PRIVATE DUTY RN) Component Value Ref Test Analysis Performed Pathologis t Range Method Time At [facility] 10/20/2021 [facility] 4:20 PM PRIVATE DUTY RN Report Anca Salazar M.D. 10/20/2021 [facility] electronically 4:20 PM signed by PRIVATE DUTY RN I verify that I have examined all relevant slides/materials for the specimen(s) and rendered or confirmed the diagnosis. Gross Description A. ??Received fresh labeled left thyroid is an 18 gram 10/20/2021 [facility] partial thyroidectomy with 7.1 x 3.2 x 2.6 cm left lobe. 4:20 PM The lobe is received disrupted. ??There is a 1 x 0.6 x 0.4 PRIVATE DUTY RN cm reyes-white area identified. ??The remainder of the thyroid lobe is uniformly nodular. ??Tin Recovery Worker tissue submitted for permanent sections. ??Grossed by Parvez Salazar M.D. -Pathology Resident. B. ??Received fresh labeled right thyroid is a 40 gram partially disrupted partial thyroidectomy with a 7.1 x 4.9 x 3.5 cm right lobe, in aggregate. ??The thyroid parenchyma demonstrates multiple reyes-brown soft nodules, 0.5 to 5.1 cm. ??The largest nodule is detached and shows hemorrhagic and cystic spaces. ??Tin Recovery Worker tissue submitted for permanent sections. ??Grossed by Derian Rodgers, PA([facility]). Block Summary A Left thyroid 10/20/2021 [facility] A1 Left thyroid 4:20 PM A2 Left thyroid sales representative adding machines section C ST B Right thyroid B1 Right superior B2 Right mid B3 Right inferior B4 Dominant detached nodule Interpretation FINAL DIAGNOSIS 10/20/2021 [facility] 4:20 PM A. ??Thyroid, left, left lobectomy: ??Hyperplastic nodules. PRIVATE DUTY RN Mild chronic thyroiditis. B. ??Thyroid, right, right lobectomy: ??Hyperplastic in adenomatous nodules with degenerative features. ??Mild chronic thyroiditis. Congo red performed at [facility] on section from block B4 is negative. Specimen (Source) Anatomical Collection Method Collection Time Re ceived Time Location / / Volume Laterality Tissue (Thyroid) 10/17/2021 11:23 AM PRIVATE DUTY RN Tissue (Thyroid) 10/17/2021 11:32 AM PRIVATE DUTY RN Narrative This result has an attachment that is no t available. Paige Nguyen M.D. LAB SURG PATH ORDERABLES Performing Organization Address City/State/ZIP Code Phon e Number [facility] - [address] [place], [place] [address] [place] [address] Laboratories-[facility] [address] documented in this encounter Visit Diagnoses Diagnosis Goiter Multinodular Nontoxic - Primary Goiter Multinodular Nontoxic documented in this encounter Admitting Diagnoses Diagnosis Goiter Multinodular Nontoxic documented in this encounter Administered Medications Inactive Administered Medications - up to 3 most recent administrations Medication Order MAR Action Action Date Dose Rate Site acetaminophen tablet 1,000 mg Given 10/17/2021 9:50 AM PRIVATE DUTY RN 1,000 mg (TYLENOL) 1,000 mg, oral, Once, On Sun10/17/21 at 1000, For 1 dose, Pre-Op, Geospatial Intelligence Analyst, PreOp with sips acetaminophen tablet 1,000 mg (TYLENOL) Given 10/18/2021 9:23 AM PRIVATE DUTY RN 1,000 mg 1,000 mg, oral, Every 6 hours, First dose (after last modification) on Sun10/17/21 at 2200, (not to exceed 4 grams in 24 hours) Given 10/18/2021 4:05 AM PRIVATE DUTY RN 1,000 mg Given 10/17/2021 10:09 PM PRIVATE DUTY RN 1,000 mg acetaminophen tablet 500 mg (TYLENOL) Given 10/17/2021 3:54 PM PRIVATE DUTY RN 500 mg 500 mg, oral, Every 6 hours, First dose on Sun10/17/21 at 1600, (not to exceed 4 grams in 24 hours) calcitRIOL capsule 0.5 mcg (ROCALTROL) Given 10/18/2021 8:24 AM PRIVATE DUTY RN 0.5 mcg 0.5 mcg, oral, Daily, First dose on Sun10/17/21 at 1730 Given 10/17/2021 6:02 PM PRIVATE DUTY RN 0.5 mcg calcium carbonate chewable tablet Given 10/18/2021 8:2 4 AM PRIVATE DUTY RN 600 mg of calcium 600 mg of calcium (TUMS E-X) 600 mg of calcium, oral, 3 times daily, First dose on Sun10/17/21 at 2100, Doses listed are in mg of elemental calcium. Take with food. 750 mg calcium carbonate contains 300 mg of elemental calcium. Given 10/17/2021 8:45 PM PRIVATE DUTY RN 600 mg of calcium fentaNYL injection 25 mcg (SUBLIMAZE) Given 10/17/2021 12:51 PM PRIVATE DUTY RN 25 mcg 25 mcg, intravenous, Every 2 min PRN, For pain 4 or greater (maximum 100 mcg). If max dose of Fentanyl is reached and if pain is greater than 4, discontinue Fentanyl: give Hydromorphone, Starting on Sun10/17/21 at 1239, PACU (only) Given 10/17/2021 12:48 PM PRIVATE DUTY RN 25 mcg Given 10/17/2021 12:44 PM PRIVATE DUTY RN 25 mcg HYDROmorphone (PF) injection 0.2 mg Given 10/17/2021 1:45 PM PRIVATE DUTY RN 0.2 mg (DILAUDID) 0.2 mg, intravenous, Every 5 min PRN, moderate pain or score 4-6 of 10, severe pain or score 7-10 of 10, Starting on Sun10/17/21 at 1239, PACU (only), Up to maximum total dose of 2 mg Given 10/17/2021 1:40 PM PRIVATE DUTY RN 0.2 mg labetalol injection 5 mg (NORMODYNE,AHMADI DATE) Given 10/17/2021 1:16 PM PRIVATE DUTY RN 5 mg 5 mg, intravenous, Every 15 min PRN, high blood pressure, For SBP>160 mmHG. Hold for heart rate<60, Starting on Sun10/17/21 at 1239, For 2 doses, PACU (only), Follow institution's IV administration guidelines Given 10/17/2021 1:00 PM PRIVATE DUTY RN 5 mg lactated ringers Continued from OR 10/17/2021 1:01 PM PRIVATE DUTY RN 20 mL/hr 20 mL/hr 20 mL/hr, intravenous, Continuous, Starting on Sun10/17/21 at 1100, PACU & Post-Op lisinopriL tablet 2.5 mg (PRINIVIL,ZESTR [place]) Given 10/18/2021 8:24 AM PRIVATE DUTY RN 2.5 mg 2.5 mg, oral, Daily, First dose on Sun10/17/21 at 1430 Given 10/17/2021 2:54 PM PRIVATE DUTY RN 2.5 mg NaCl 0.45 % infusion New Bag 10/17/2021 2:39 PM PRIVATE DUTY RN 30 mL/hr 30 mL/hr 30 mL/hr, intravenous, [...] Recently Administered Medications Times are shown in PRIVATE DUTY RN. Scheduled Medication Order 10/16/2021 10/17/2021 10/18/2021 acetaminophen tablet 1,000 mg (TYLENOL) (COMPLETED) 0950 (Given - Provider: Paz Kohli R.N.) 1,000 mg, oral, Once, On Sun10/17/21 at 1000, For 1 dose, Pre-Op, Geospatial Intelligence Analyst, PreOp with sips acetaminophen tablet 1,000 mg (TYLENOL) 2209 (Given - Provider: Jonh Velez R.N.) 0405 (Given - Provider: Lora Rebolledo R.N.)0923 (Given - Provider: Anabel Rosales R.NNaomi) 1,000 mg, oral, Every 6 hours, First [...] 1204 documented in this encounter Care Teams Aerospace Manager Relationship Specialty Start Date End Date Elsewhere, Pcp PCP - General Internal Medicine 10/03/21 documented as of this encounter
--- OUTSIDE RECORDS SUMMARY | 2022-07-10 12:23 | XMS_ITS | Encounter Summary ---
:1955 Author Organization [facility] Address [address] [place] [address] Care Team Providers Name Role Phone Elsewhere, Pcp Primary Care Provider Unavailable Encounter Details Date Type Department Care Team Description 10/18/2021 Orders Only [facility], Patt Chavez M.D. [facility], [facility] [address] [facility], [place], [place] [address] [facility] [address] [place] [address] [phone] Social History Tobacco Use Types Packs/Day Years [...] How often do you attend yarsanism or church More than 4 time s [...] on filedocumented in this encounter Care Teams Test And Research Reactor Operator Relationship Specialty Start Date End Date Elsewhere, Pcp PCP - General Internal Medicine 10/03/21 documented as of this encounter
--- OUTSIDE RECORDS SUMMARY | 2022-07-10 12:23 | XMS_ITS | Encounter Summary ---
:1955 Author Organization [facility] Address [address] [place] [address] Care Team Providers Name Role Phone Elsewhere, Pcp Primary Care Provider Unavailable Reason for Visit Reason Comments Pre-visit Intake Encounter Details Date Type Department Care Team Description 10/03/2021 Clinical Communication Visit Review in Pr e-visit Intake [address] [address] Social History Tobacco Use Types [...] How often do you attend rastafarian or caodaism More than 4 time s [...] on filedocumented in this encounter Care Teams Rivet Tosser Relationship Specialty Start Date End Date Elsewhere, Pcp PCP - General Internal Medicine 10/03/21 documented as of this encounter
--- OUTSIDE RECORDS SUMMARY | 2022-07-10 12:23 | XMS_ITS | Encounter Summary ---
:1955 Author Organization [facility] Address [address] [place] [address] Care Team Providers Name Role Phone Elsewhere, Pcp Primary Care Provider Unavailable Reason for Visit Outpatient (Routine) - Closed Specialty Diagnoses / Procedures Referred By Contact Refer red To Contact Otorhinolaryngology Diagnoses Hoarseness Paige Nguyen M.D. [facility] [address] [place] [phone] Referral ID Status Reason Start Date Expiration Date Visits Requ ested Visits Authorized [id number] Closed 12/14/2021 12/14/2022 1 1 Encounter Details Date Type Department Care Team Description 01/25/2022 Comprehensive Visit Department of Ashanti Hendricks Otorhinolaryngology mary lou Lomeli M.D. [place], [place] [address] [place] [address] [place] [phone] Social History Tobacco Use Types Packs/Day Years [...] How often do you attend yarsani or protestant More than 4 time s [...] Stokes M.D. - 01/25/2022 11:00 AM CDT [facility] The patient was referred [...] Hoarseness documented in this encounter Care Teams Microsoft Dynamics Ax Developer Relationship Specialty Start Date End Date Elsewhere, Pcp PCP - General Internal Medicine 10/03/21 documented as of this encounter
--- OUTSIDE RECORDS SUMMARY | 2022-07-10 12:23 | XMS_ITS | Encounter Summary ---
:1955 Author Organization [facility] Address [address] [place] [address] Care Team Providers Name Role Phone Elsewhere, Pcp Primary Care Provider Unavailable Reason for Referral Outpatient (Routine) - Closed Specialty Diagnoses / Procedures Referred By Contact Refer red To Contact Otorhinolaryngology Diagnoses Hoarseness Paige Nguyen M.D. [facility] [address] [place] [phone] Referral ID Status Reason Start Date Expiration Date Visits Requ ested Visits Authorized [id number] Closed 12/14/2021 12/14/2022 1 1 Encounter Details Date Type Department Care Team Description 12/14/2021 Orders Only Division of Endocrine Sindhu Jovel H oarseness (Primary and Metabolic Surgery R.N. Dx) in [address] [address] [place], [place] [phone] (Work) [phone] Social History Tobacco Use Types Packs/Day Years [...] How often do you attend yarsani or rastafari More than 4 time s [...] Primary documented in this encounter Care Teams Heating Plant Superintendent Relationship Specialty Start Date End Date Elsewhere, Pcp PCP - General Internal Medicine 10/03/21 documented as of this encounter
--- OUTSIDE RECORDS SUMMARY | 2022-07-10 12:23 | XMS_ITS | Encounter Summary ---
:1955 Author Organization [facility] Address [address] [place] [address] Care Team Providers Name Role Phone Elsewhere, Pcp Primary Care Provider Unavailable Reason for Referral Outpatient (Routine) - Closed Specialty Diagnoses / Procedures Referred By Contact Refer red To Contact Diagnoses Hoarseness [facility] Procedures ENT Speech therapy [address] [place], [place] [address] Referral ID Status Reason Start Date Expiration Date Visits Requ ested Visits Authorized [id number] Closed 01/25/2022 01/25/2023 1 1 Reason for Visit Speech Pathology (Routine) - Closed Specialty Diagnoses / Procedures Referred By Contact Refer red To Contact Diagnoses Hoarseness Ashanti Hendricks M.D. [facility] Procedures DELIVERY AIDE Voice evaluation [address] [place] [phone] Referral ID Status Reason Start Date Expiration Date Visits Requ ested Visits Authorized [id number] Closed 12/14/2021 12/14/2022 1 1 Encounter Details Date Type Department Care Team Description 01/25/2022 Comprehensive Visit Department of Shima Macias Otorhinolaryngology mary lou Del Real, Ph.D. [place], [place] [address] [facility] [address] [place] [phone] Social History Tobacco Use Types Packs/Day Years [...] How often do you attend sabianist or jehovah's witness More than 4 time [...] slept in a senior living (including now)? Education Answer Date Recorded What [...] the most. 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 PHYSICAL EXAMINATION I. Phonation: Phonatory quality [...] Hoarseness documented in this encounter Care Teams Ship'S Captain Relationship Specialty Start Date End Date Elsewhere, Pcp PCP - General Internal Medicine 10/03/21 documented as of this encounter
--- OUTSIDE RECORDS SUMMARY | 2022-07-10 12:23 | XMS_ITS | Encounter Summary ---
:1955 Author Organization [facility] Address [address] [place] [address] Care Team Providers Name Role Phone Unavailable Primary Care Provider Unavailable Reason for Referral Outpatient (Routine) - Closed Specialty Diagnoses / Procedures Referred By Contact Refer red To Contact Diagnoses Goiter Multinodular Estrella Palafox M.D. [facility] Procedures Vocal cord check [address] [place], [place] [phone] Referral ID Status Reason Start Date Expiration Date Visits Requ ested Visits Authorized [id number] Closed 09/21/2021 09/21/2022 1 1 utpatient (Routine) - Closed Specialty Diagnoses / Procedures Referred By Contact Refer red To Contact General Surgery Diagnoses Goiter Multinodular Nontoxic Estrella Sevilla M.D. [facility] [address] [place] [address] Referral ID Status Reason Start Date Expiration Date Visits Requ ested Visits Authorized [id number] Closed 09/21/2021 09/21/2022 1 1 utpatient (Routine) - Closed Specialty Diagnoses / Procedures Referred By Contact Refer red To Contact Diagnoses Goiter Multinodular Nontoxic Estrella Sevilla M.D. [facility] Procedures END Thyroid USG [address] [place] [address] Referral ID Status Reason Start Date Expiration Date Visits Requ ested Visits Authorized [id number] Closed 09/21/2021 09/21/2022 1 1 CTOR CENTER Reason for Visit Outpatient (Routine) - Closed Specialty Diagnoses / Procedures Referred By Contact Refer red To Contact Endocrinology Diagnoses Goiter Multinodular Nontoxic Lion Carbajal [facility] Jose Alberto [address] [place] [address] Referral ID Status Reason Start Date Expiration Date Visits Requ ested Visits Authorized [id number] Closed 08/22/2021 08/22/2022 1 1 Encounter Details Date Type Department Care Team Description 09/21/2021 Comprehensive Visit Division of Alex Carbajal M.D. [address] [place] [address] Goiter Endocrinology in Zelda Dang M.D. [address] [place] [address] [facility]in[facility]ular [place] [address] [place] [phone] Social History Tobacco Use Types Packs/Day Years [...] How often do you attend mu-ism or jainism More than 4 time s [...] plan to proceed with FNA later today. CTOR CENTER Estrella Sevilla M.D. - 09/21/2021 10:00 AM [...] by mouth daily., Disp: , Rfl: ??? xavfcss-pjulamvjf-iwoe tablet, , Disp: , Rfl: ??? cholecalciferol [...] mouth daily., Disp: , Rfl: ??? omega 8-vqk-wut-fish oil 600 mg-216 mg- 324 mg-1,200 mg [...] results. Case seen and discussed with . CTOR CENTER documented in this encounter Plan of Treatment Scheduled Referrals Name Type Priority Associated Diagnoses Order S [facility] General Surgery - Outpatient Referral Routine Goiter Multinodu lar Expected: Endocrine consult Nontoxic 09/21/2021 (clinic) (Approximate), Expires: 12/19/2022 documented as of this encounter Results T4 (Thyroxine), Free (09/21/2021 12:11 PM DIRECTOR CENTER) P athologist Signature T4 (Thyroxine), 1.2 0.9 - 1.7 09/21/2021 DTL Free, S ng/dL 1:24 PM DIRECTOR CENTER Specimen Anatomical Collection Method Collection Time Receive d Time (Source) Location / / Volume Laterality Blood (Blood, 09/21/2021 12:11 09/21/2021 Venous) PM DIRECTOR CENTER 12:52 PM DIRECTOR CENTER Estrella Sevilla M.D. LAB BLOOD ADD-ON Performing Organization Address City/[facility] Code Phon e Number [facility] - [address] [place] [id number] [address] Calcium, Total (09/21/2021 12:11 PM DIRECTOR CENTER) athologist Signature Calcium, Total, 9.0 8.8 - 10.2 09/21/2021 DTL S mg/dL 1:24 PM DIRECTOR CENTER Specimen Anatomical Collection Method Collection Time Receive d Time (Source) Location / / Volume Laterality Blood (Blood, 09/21/2021 12:11 09/21/2021 Venous) PM DIRECTOR CENTER 12:52 PM DIRECTOR CENTER Estrella Sevilla M.D. LAB BLOOD ADD-ON Performing Organization Address City/[facility] Phon e Number [facility] - [address] S-TSH (Thyroid-Stimulating Hormone - Sensitive) (09/21/2021 12:11 PM DIRECTOR CENTER) athologist [facility] TSH, Sensitive 1.7 0.3 - 4.2 09/21/2021 DTL mIU/L 1:24 PM DIRECTOR CENTER Specimen Anatomical Collection Method Collection Time Receive d Time (Source) Location / / Volume Laterality Blood (Blood, 09/21/2021 12:11 09/21/2021 Venous) PM DIRECTOR CENTER 12:52 PM DIRECTOR CENTER Estrella Sevilla M.D. LAB BLOOD ADD-ON Performing Organization Address City/[facility] Phon e Number [facility] - [address] CBC without Differential (09/21/2021 12:11 PM DIRECTOR CENTER) athologist Signature Hemoglobin 14.3 11.6 - 09/21/2021 DTL 15.0 g/dL 12:45 PM DIRECTOR CENTER Hematocrit 43.8 35.5 - 09/21/2021 DTL 44.9 % 12:45 PM DIRECTOR CENTER Erythrocytes 4.79 3.92 - 09/21/2021 DTL 5.13 12:45 PM DIRECTOR CENTER x10(12)/L MCV 91.4 78.2 - 09/21/2021 DTL 97.9 fL 12:45 PM DIRECTOR CENTER RBC Distrib Width 13.2 12.2 - 09/21/2021 DTL 16.1 % 12:45 PM DIRECTOR CENTER Platelet Count 186 157 - 371 09/21/2021 DTL x10(9)/L 12:45 PM DIRECTOR CENTER Leukocytes 6.3 3.4 - 9.6 09/21/2021 DTL x10(9)/L 12:45 PM DIRECTOR CENTER Specimen Anatomical Collection Method Collection Time Receive d Time (Source) Location / / Volume Laterality Blood (Blood, 09/21/2021 12:11 09/21/2021 Venous) PM DIRECTOR CENTER 12:38 PM DIRECTOR CENTER Estrella Sevilla M.D. LAB BLOOD ADD-ON Performing Organization Address City/State/ZIP Code Phon e Number [facility] - [address] [place], [place] [address] [facility] [place] [address] [facility] [place] [address] 25-Hydroxyvitamin D2 and D3 (09/21/2021 12:11 PM DIRECTOR CENTER) athologist Signature 25-Hydroxy D2 <4.0 ng/mL 09/22/2021 SDSC 3:15 PM DIRECTOR CENTER 25-Hydroxy D3 44 ng/mL 09/22/2021 SDSC 3:15 PM DIRECTOR CENTER 25-Hydroxy D 44 ng/mL 09/22/2021 SDSC Total 3:15 PM DIRECTOR CENTER Comment: ----REFERENCE VALUE---- 25-HYDROXY D TOTAL (D2+D3) Optimum level s in the healthy population are 20-50, patients with bone disease may benefit from higher levels within this r [place]. ----ADDITIONAL INFORMATION---- This test was developed and its performa nce characteristics determined by [facility] in a manner consistent with CLIA requirements. This test has not been cleared or approved by the U.S. Franci d and Drug Administration. Specimen Anatomical Collection Method Collection Time Receive d Time (Source) Location / / Volume Laterality Blood (Blood, 09/21/2021 12:11 09/22/2021 7:15 Venous) PM DIRECTOR CENTER AM DIRECTOR CENTER Estrella Sevilla M.D. LAB BLOOD ADD-ON Performing Organization Address City/State/ZIP Code Phon e Number [facility] [address] [place] [address] SUPPORT CENTER [facility] [place] [address] Laboratory Medicine and Pathology [address] [place] documented in this encounter Visit Diagnoses Diagnosis Goiter Multinodular Nontoxic documented in this encounter
--- OUTSIDE RECORDS SUMMARY | 2022-07-10 12:23 | XMS_ITS | Encounter Summary ---
:1955 Author Organization [facility] Address [address] [place] [address] Care Team Providers Name Role Phone Unavailable Primary Care Provider Unavailable Encounter Details Date Type Department Care Team Description 09/23/2021 Documentation Division of Endocrinology in Estrella benson M.D. [place], [place] [address] [facility] [address] [place] [phone] (Wo rk) Social History Tobacco Use Types [...] How often do you attend caodaism or uatsdin More than 4 time s [...] daily for optimization pre surgery. -TSH 1.7 CIATE PARTNER documented in this encounter Plan of Treatment Not on filedocumented as of this encounter Visit Diagnoses Not on filedocumented in this encounter
--- OUTSIDE RECORDS SUMMARY | 2022-07-10 12:23 | XMS_ITS | Encounter Summary ---
:1955 Author Organization [facility] Address [address] [place] [address] Care Team Providers Name Role Phone Elsewhere, Pcp Primary Care Provider Unavailable Encounter Details Date Type Department Care Team Description 10/04/2021 Orders Only Division of Endocrine Sindhu Jovel G oiter Multinodular and Metabolic Surgery R.N. Nontoxic (Primary Dx) in [address] [place] [phone] [place], [place] [phone] (Work) [phone] Social History Tobacco Use Types Packs/Day Years [...] How often do you attend yarsanism or pentecostal More than 4 time s [...] Coronavirus-2 RNA, V Asymptomatic (10/14/2021 10:27 AM DEMONSTRATOR SEWING TECHNIQUES) [facility] Method Time Signature SARS-CoV-2 Swab, 10/14/2021 ECLR Specimen Nasopharynx 10:10 PM Source DEMONSTRATOR SEWING TECHNIQUES SARS CoV-2 Undetected Undetected 10/14/2021 ECLR RNA, TMA 10:10 PM DEMONSTRATOR SEWING TECHNIQUES Comment: SARS-CoV-2 RNA absent. This result does not rule out COVID-19 in the patient, as the sensitivity of the test depends o n the timing of the specimen collection and the quality of the specim en. Result should be correlated with patient's history and clinical presentat ion. ----ADDITIONAL INFORMATION---- This molecular amplification test was pe rformed using the Aptima SARS-CoV-2 assay ([employer] on the [employer] tem under emergency use authorization (EUA) by the U.S. Food and Drug Administ ration. Fact sheets for this EUA assay can be fo und at the following links: For Healthcare Providers: https://www.fd a.gov/media/263236/download For Patients: https://www.fda.gov/media/ 114676/download Specimen Anatomical Collection Method Collection Time Receive d Time (Source) Location / / Volume Laterality Varies 10/14/2021 10:27 10/14/2021 2:43 (Nasopharynx) AM DEMONSTRATOR SEWING TECHNIQUES PM DEMONSTRATOR SEWING TECHNIQUES Paige Nguyen M.D. LAB MICROBIOLOGY - GENERAL O RDERABLES Performing Organization Address City/State/ZIP Code Phon e Number [facility]- [address] [place], [place] [address] [facility] [place] [address] System in [place] [address] [place] [address] documented in this encounter Visit Diagnoses Diagnosis Goiter Multinodular Nontoxic - Primary documented in this encounter Additional Health Concerns Infection Onset Date Last Indicated Resolved Time COVID19 Pending 10/14/2021 10/14/2021 10/14/2021 10:11 PM DEMONSTRATOR SEWING TECHNIQUES documented as of this encounter Care Teams Learning And Development Administrator Relationship Specialty Start Date End Date Elsewhere, Pcp PCP - General Internal Medicine 10/03/21 documented as of this encounter
--- OUTSIDE RECORDS SUMMARY | 2022-07-10 12:23 | XMS_ITS | Encounter Summary ---
:1955 Author Organization [facility] Address [address] [place] [address] Care Team Providers Name Role Phone Elsewhere, Pcp Primary Care Provider Unavailable Encounter Details Date Type Department Care Team Description 01/20/2022 Clinical Communication Visit Review in [place], [place] [address] [place] [address] Social History Tobacco Use Types [...] How often do you attend denominational or restorationism More than 4 time s [...] on filedocumented in this encounter Care Teams French Folder Relationship Specialty Start Date End Date Elsewhere, Pcp PCP - General Internal Medicine 10/03/21 documented as of this encounter
--- OUTSIDE RECORDS SUMMARY | 2022-07-10 12:23 | XMS_ITS | Encounter Summary ---
:1955 Author Organization [facility] Address [address] [place] [address] Care Team Providers Name Role Phone Elsewhere, [...] often do you attend oriental orthodox or caodaism More than 4 time s [...] 10/04/2021 10:50 Results for this EXAM AM VACATION GUIDE procedure are i n the results section. documented in this encounter Results AIRWAY-Otorhinolaryngology Image Exam (10/04/2021 10:50 AM VACATION GUIDE) Specimen (Source) Anatomical Collection Method Collection Time Re ceived Time Location / / Volume Laterality 10/04/2021 10:50 AM VACATION GUIDE Narrative IIMS - 10/04/2021 11:00 AM VACATION GUIDE This order has been created and auto-finalized [...] on filedocumented in this encounter Care Teams Accountant Cost Relationship Specialty Start Date End Date Elsewhere, Pcp PCP - General Internal Medicine 10/03/21 documented as of this encounter
--- OUTSIDE RECORDS SUMMARY | 2022-07-10 12:23 | XMS_ITS | Encounter Summary ---
:1955 Author Organization [facility] Address [address] [place] [address] Care Team Providers Name Role Phone Elsewhere, Pcp Primary Care Provider Unavailable Reason for Visit Outpatient (Routine) - Closed Specialty Diagnoses / Procedures Referred By Contact Refer red To Contact General Surgery Diagnoses Goiter Multinodular Nontoxic Estrella Sevilla M.D. [facility] [address] [place] [phone] Referral ID Status Reason Start Date Expiration Date Visits Requ ested Visits Authorized [id number] Closed 09/21/2021 09/21/2022 1 1 Encounter Details Date Type Department Care Team Description 10/04/2021 Comprehensive Visit Division of Victoriano Nguyen M.D. [address] [place] [phone] Goiter Multinodular Endocrine and Zelda Dang M.D. [address] [place] [phone] Nontoxic Metabolic Surgery in [place], [place] [address] [place] [phone] Social History Tobacco Use Types Packs/Day Years [...] How often do you attend methodist or nondenominational More than 4 time s [...] and coordination of care as described above. ROAD FIRER documented in this encounter Plan of Treatment Not on filedocumented as of this encounter Visit Diagnoses Diagnosis Goiter Multinodular Nontoxic documented in this encounter Care Teams Bingo Usher Relationship Specialty Start Date End Date Elsewhere, Pcp PCP - General Internal Medicine 10/03/21 documented as of this encounter
--- OUTSIDE RECORDS SUMMARY | 2022-07-10 12:23 | XMS_ITS | Encounter Summary ---
:1955 Author Organization [facility] Address [address] [place] [address] Care Team Providers Name Role Phone Elsewhere, Pcp Primary Care Provider Unavailable Reason for Referral Outpatient (Routine) - Authorized Specialty Diagnoses / Procedures Referred By Contact Refer red To Contact Diagnoses Goiter Multinodular Nontoxic Heriberto Gómez P.A.-C., [facility] Procedures Laryngoscopy M.S. [address] [place] [address] Referral ID Status Reason Start Date Expiration Date Visits V isits Requested Authorized [id number] Authorized 10/04/2021 10/04/2022 1 1 STANCE WELDER Reason for Visit Outpatient (Routine) - Closed Specialty Diagnoses / Procedures Referred By Contact Refer red To Contact Diagnoses Goiter Multinodular Nontoxic Estrella Sevilla M.D. [facility] Procedures Vocal cord check [address] [place] [address] Referral ID Status Reason Start Date Expiration Date Visits Requ ested Visits Authorized [id number] Closed 09/21/2021 09/21/2022 1 1 Encounter Details Date Type Department Care Team Description 10/04/2021 Diagnostic Department of Heriberto Gómez Multin odular Otorhinolaryngology mary lou Cates P.A.-C., [facility] [place], [place] M.S. [address] [facility] [address] [place] [address] [place], [place] [phone] Social History Tobacco Use Types Packs/Day Years [...] How often do you attend lutheran or gnosticism More than 4 time s [...] or slept in a chcf (including now)? Education Answer Date Recorded What [...] evidence of vocal fold paresis or paralysis STANCE WELDER documented in this encounter Plan of Treatment Not on filedocumented as of this encounter Procedures Procedure Name Priority Date/Time Associated Diagnosis Comme nts LARYNGOSCOPY Routine 10/04/2021 10:59 AM Goiter Multinodular R esults for this RESISTANCE WELDER Nontoxic procedure are i n the results section. documented in this encounter Results Laryngoscopy (10/04/2021 10:59 AM RESISTANCE WELDER) Narrative Heriberto Gómez P.A.-C., M.S. - 022 10:59 AM RESISTANCE WELDER Heriberto Gómez P.A.-C., M.S. ? 10/04/2021 11:00 AM Laryngoscopy Date/Time: 10/04/2021 10:59 AM Performed by: Heriberto Gómez P.A.-C., M.S. Authorized by: Heriberto Gómez P.A.-C., M.S. Heriberto Gómez P.A.-C. [facility] ORDERABLES documented in this encounter Visit Diagnoses Diagnosis Goiter Multinodular Nontoxic documented in this encounter Care Teams Equity Analyst Relationship Specialty Start Date End Date Elsewhere, Pcp PCP - General Internal Medicine 10/03/21 documented as of this encounter
--- OUTSIDE RECORDS SUMMARY | 2022-07-10 12:24 | XMS_ITS | Encounter Summary ---
:1955 Author Organization [facility] Address [address] [place] [address] Care Team Providers Name Role Phone Unavailable Primary Care Provider Unavailable Encounter Details Date Type Department Care Team Description 08/17/2017 Abstract [facility] [address] [phone] Social History Tobacco Use [...] How often do you attend restoration or zoroastrian More than 4 time s [...]
--- OUTSIDE RECORDS SUMMARY | 2022-07-10 12:24 | XMS_ITS | Encounter Summary ---
:1955 Author Organization [facility] Address [address] [place] [address] Care Team Providers Name Role Phone Unavailable Primary Care Provider Unavailable Encounter Details Date Type Department Care Team Description 08/29/2021 Admin Visit Department of Family Ramón Cosby, Medicine, [facility], [facility].- C. in [facility] [address] [facility] [address] [place] [address] [place] [address] [phone] Social History Tobacco Use Types Packs/Day Years [...] How often do you attend christian or baptist More than 4 time s [...] COVID19 Pending 08/28/2021 08/29/2021 08/30/2021 2:17 AM SAFETY MANAGER documented as of this encounter
--- OUTSIDE RECORDS SUMMARY | 2022-07-10 12:24 | XMS_ITS | Encounter Summary ---
:1955 Author Organization [facility] Address [address] [place] [address] Care Team Providers Name Role Phone Unavailable Primary Care Provider Unavailable Encounter Details Date Type Department Care Team Description 06/24/2019 Hospital Encounter Department of Irina Pham, [place] Radiology in [address] [phone] Social History Tobacco Use Types Packs/Day Years [...] D3) 2,000 mouth daily. Unit capsule omega 0-utb-xrd-fish oil Take 1 capsule by 0 10/1910/03/2021 600 mg-216 mg- 324 mouth daily. mg-1,200 mg capsule,delayed release(DR/EC) documented as of this encounter Plan of Treatment Not on filedocumented as of this encounter Procedures Procedure Name Priority Date/Time Associated Comments Diagnosis US CAROTID RAD - Routine 06/24/2019 10:37 [place] Results fo r this BILATERAL (most inpatients AM THERAPEUTIC RECREATION SPECIALIST procedure a re in and all the results outpatients) section. documented in this encounter Results US Carotid Bilateral (06/24/2019 10:37 AM THERAPEUTIC RECREATION SPECIALIST) Anatomical Region Laterality Modality Head and Neck, Ultrasound RST LOS, Ultrasound ARZ LOS, Bilat eral Ultrasound Neuroradiology FLA LOS Specimen (Source) Anatomical Collection Method Collection Time Re ceived Time Location / / Volume Laterality 06/24/2019 10:41 AM THERAPEUTIC RECREATION SPECIALIST Impressions 06/24/2019 10:44 AM THERAPEUTIC RECREATION SPECIALIST Less than 50% stenosis of the right and left internal carotid arteries by velocity criteria. Narrative 06/24/2019 10:44 AM THERAPEUTIC RECREATION SPECIALIST EXAM: US CAROTID BILATERAL Exam performed with [...] distal ICA in accordance with Nor th [place]e Symptomatic Carotid Endarterectomy Trial (NASCET). Procedure Note [...] distal ICA in accordance with Nor th [place] Symptomatic Carotid Endarterectomy Trial (NASCET). IMPRESSION: Less than 50% stenosis of the right and left internal carotid arteries by velocity criteria. Irina HARP US PROCEDURES documented in this encounter Visit Diagnoses Diagnosis [place] documented in this encounter
--- OUTSIDE RECORDS SUMMARY | 2022-07-10 12:24 | XMS_ITS | Encounter Summary ---
:1955 Author Organization [facility] Address [address] [place] [address] Care Team Providers Name Role Phone Unavailable Primary Care Provider Unavailable Reason for Visit Reason Comments Eye Exam Appointment Request (Routine) - Closed Specialty Diagnoses / Procedures Referred By Contact Refer red To Contact Ophthalmology Referral ID Status Reason Start Date Expiration Date Visits Requ ested Visits Authorized [id number] Closed 04/19/2020 04/19/2021 1 1 Encounter Details Date Type Department Care Team Description 06/01/2020 Comprehensive Visit Department of Magen Michaelsop ia Bilateral (Primary Dx); Ophthalmology in [place] Solis Del Real O.D. Astigma tism Regular Bilateral; [place] [facility]; [address] Age Related Nuclear [...] How often do you attend sikh or sikh More than 4 time s [...] Michaels O.D. - 06/01/2020 1:00 PM CDT Colleen Narvaeztana Tolentino was seen today for Eye Exam [...]
--- OUTSIDE RECORDS SUMMARY | 2022-07-10 12:24 | XMS_ITS | Encounter Summary ---
:1955 Author Organization [facility] Address [address] [place] [address] Care Team Providers Name Role Phone Unavailable Primary Care Provider Unavailable Encounter Details Date Type Department Care Team Description 02/02/2021 Hospital Encounter Department of [place], Primary Osteoarthritis Radiology in [facility] Roberto Vela M.D. [place] [address] [address] [phone] Social History Tobacco Use Types Packs/Day Years [...] How often do you attend buddhism or alevism More than 4 time s [...] D3) 2,000 mouth daily. Unit capsule omega 3-ryg-zop-fish oil Take 1 capsule by 0 10/1910/03/2021 [...]
--- OUTSIDE RECORDS SUMMARY | 2022-07-10 12:24 | XMS_ITS | Encounter Summary ---
:1955 Author Organization [facility] Address [address] [place] [address] Care Team Providers Name Role Phone Unavailable Primary Care Provider Unavailable Reason for Visit Physical Therapy (Routine) - Closed Specialty Diagnoses / Procedures Referred By Contact Refer red To Contact Diagnoses Primary Osteoarthritis Knee Bilateral Pain Knee Right Roberto Salazar, [facility] Procedures PT Evaluate and treat Jose Alberto [address] [place] [phone] Referral ID Status Reason Start Date Expiration Date Visits Requ ested Visits Authorized [id number] Closed 02/02/2021 02/02/2022 1 1 Encounter Details Date Type Department Care Team Description 02/28/2021 Comprehensive Visit Department of Dean Salazar M.D. [address] [place] [phone] Primary Osteoarthritis Knee Bilateral; Rehabilitation Ana Vallejo, P.T. [address] [place] [phone] Pain Knee Right Services in [address] [phone] Social History Tobacco Use Types Packs/Day Years [...] How often do you attend quaker or religion More than 4 time s per year [...] Knee Bilateral 2. Pain Knee Right Payor: [employer] / Plan: [employer] / [...] attempted CHOLANGIOGRAM; Surgeon: Augie Feldman D.O.; Location: [facility] OR ??? OPEN TENOTOMY OF EXTENSOR [...] Vallejo P.T. Department of Rehabilitation Services in [address] [address] Dept: [phone] documented in this encounter Plan of Treatment Not on filedocumented as of this encounter Visit Diagnoses Diagnosis Primary Osteoarthritis Knee Bilateral Pain Knee Right documented in this encounter
--- OUTSIDE RECORDS SUMMARY | 2022-07-10 12:24 | XMS_ITS | Encounter Summary ---
:1955 Author Organization [facility] Address [address] [place] [address] Care Team Providers Name Role Phone Unavailable Primary Care Provider Unavailable Reason for Referral Outpatient (Routine) - Closed Specialty Diagnoses / Procedures Referred By Contact Refer red To Contact Diagnoses Screening Mammogram Breast Cancer Fernando Steven M.D. [facility] [place] Procedures BI Breast Screening Bilateral with Tomosynthesis [address] [place], [place] [address] Referral ID Status Reason Start Date Expiration Date Visits Requ ested Visits Authorized [id number] Closed 04/19/2020 04/19/2021 1 1 Reason for Visit Outpatient (Routine) - Closed Specialty Diagnoses / Procedures Referred By Contact Refer red To Contact Diagnoses Screening Mammogram Breast Cancer Fernando Steven M.D. [facility] [place] [facility] Procedures BI Breast Screening Bilateral with Tomosynthesis [address] [place], [place] [address] Referral ID Status Reason Start Date Expiration Date Visits Requ ested Visits Authorized [id number] Closed 04/19/2020 04/19/2021 1 1 Encounter Details Date Type Department Care Team Description 04/29/2020 Hospital Encounter Department of Fernando Steven ing Mammogram Radiology in Kris Cates M.D. Breast Cancer [place], [place] [address] [facility] [phone] Social History Tobacco Use Types Packs/Day Years [...] How often do you attend congregation or sikhism More than 4 time s [...] D3) 2,000 mouth daily. Unit capsule omega 6-hbj-xjb-fish oil Take 1 capsule by 0 10/1910/03/2021 [...] Imaging RST LOS, Breast Imaging ARZ LOS, [place] [address] Bilateral Mammography Imaging FLA [facility] Specimen (Source) Anatomical Collection Method Collection Time Re ceived Time Location / / Volume Laterality 04/29/2020 1:35 PM CDT Impressions 04/29/2020 1:37 PM CDT Negative. RECOMMENDATION: ??Annual Screening Mammo gram ASSESSMENT: ??BI-RADS: 1: Negative. Narrative 04/29/2020 1:37 PM CDT EXAM: ??BI BREAST SCREENING BILATERAL WITH TOMOSYNTHESIS Current study was evaluated with a [employer] Aided Detection (CAD) system. INDICATION: ??Screening mammogram. COMPARISON: ??Prior exam(s) were availab le and reviewed for comparison. DENSITY: ??b. There are scattered areas of fibroglandular density. FINDINGS: ??No mammographic findings of malignancy. Procedure Note Marcelino Shelley M.D. - 04/29/2020Format ting of this note might be different from the original. EXAM: BI BREAST SCREENING BILATERAL WITH TOMOSYNTHESIS Current study was evaluated with a [employer] Aided Detection (CAD) system. INDICATION: Screening mammogram. [...]
--- OUTSIDE RECORDS SUMMARY | 2022-07-10 12:24 | XMS_ITS | Encounter Summary ---
:1955 Author Organization [facility] Address [address] [place] [address] Care Team Providers Name Role Phone Unavailable Primary Care Provider Unavailable Reason for Visit Reason Onset Date Comments Testing For Upper Respiratory Virus Symptoms 05/11/2021 Encounter Details Date Type Department Care Team Description 05/11/2021 External Outreach Department of Family Kyra Cosby Contact With And Medicine, [place] (Suspected) Exposure Clinic, in [address] To COVID-19 (Primary [place], [place] Dx) [address] [facility] [address] [place], [place] [phone] [address] (Work) [phone] Social History Tobacco Use Types Packs/Day Years [...] How often do you attend mormon or moravian More than 4 time s [...] RNA, V Symptomatic (05/11/2021 2:29 PM CDT) [facility] Method Time Signature SARS-CoV-2 Swab, 05/12/2021 ECLR [...] pe rformed using the Aptima SARS-CoV-2 assay ([employer] on the Page Sys tem under emergency use authorization (EUA) by the U.S. Food and Drug Administ emmie. Fact sheets for this EUA assay can be fo und at the following links: For Healthcare Providers: https://www.fd a.gov/media/189782/download For Patients: https://www.fda.gov/media/ 337164/download Specimen Anatomical Collection Method Collection Time Receive d Time (Source) Location / / Volume Laterality Varies 05/11/2021 2:29 PM 9:37 (Nasopharynx) CDT PM CDT Ramón Cosby P.A.-C. LAB MICROBIOLOGY - GENERAL O RDERABLES Performing Organization Address City/State/ZIP Code Phon e Number [facility] [address] [place] [address] [phone] [facility] [place] [address] System [address] documented in this encounter Visit Diagnoses Diagnosis Contact With And (Suspected) Exposure To COVID-19 - Primary documented in this encounter Additional Health Concerns Infection Onset Date Last Indicated Resolved Time COVID19 Pending 05/11/2021 05/11/2021 05/12/2021 12:40 PM CDT documented as of this encounter
--- OUTSIDE RECORDS SUMMARY | 2022-07-10 12:24 | XMS_ITS | Encounter Summary ---
:1955 Author Organization [facility] Address [address] [place] [address] Care Team Providers Name Role Phone Unavailable Primary Care Provider Unavailable Reason for Visit Reason Comments Post-op Lap mona 08/14/17 Outpatient (Routine) - Closed Specialty Diagnoses / Procedures Referred By Contact Refer red To Contact General Surgery Diagnoses Cholecystitis Augie Feldman D.O. [facility] [address] [place] [address] Referral ID Status Reason Start Date Expiration Date Visits Requ ested Visits Authorized [id number] Closed 08/15/2017 02/11/2018 1 1 Encounter Details Date Type Department Care Team Description 08/22/2017 Office Visit Department of General Augie Feldman, Cholecystitis Surgery in Kris Haro D.O. [address] [place] [address] [place] [address] [phone] Social History Tobacco Use Types Packs/Day Years [...] How often do you attend advent or zoroastrianism More than 4 time s [...] Comments Blood Pressure 137/75 08/22/2017 9:26 AM REGIONAL CLIMATE CHANGE ANALYST Pulse 75 08/22/2017 9:26 AM REGIONAL CLIMATE CHANGE ANALYST Temperature 36.4 ??C (97.5 ??F) 08/22/2017 9:26 AM REGIONAL CLIMATE CHANGE ANALYST Respiratory Rate - - Oxygen Saturation [...] happy to re-evaluate as needed. Job ID: [id number] ONAL CLIMATE CHANGE ANALYST documented in this encounter Plan of Treatment Not on filedocumented as of this encounter Visit Diagnoses Diagnosis Cholecystitis documented in this encounter
--- OUTSIDE RECORDS SUMMARY | 2022-07-10 12:24 | XMS_ITS | Encounter Summary ---
:1955 Author Organization [facility] Address [address] [place] [address] Care Team Providers Name Role Phone Unavailable Primary Care Provider Unavailable Reason for Referral Outpatient (Routine) - Closed Specialty Diagnoses / Procedures Referred By Contact Refer red To Contact Diagnoses Iodine Deficiency Related Diffuse Endemic Goiter Irina Pham C.NJulia [facility] [place] Procedures US Thyroid [address] [place], [place] [address] Referral ID Status Reason Start Date Expiration Date Visits Requ ested Visits Authorized [id number] Closed 07/04/2021 07/04/2022 1 1 R INSPECTOR Reason for Visit Outpatient (Routine) - Closed Specialty Diagnoses / Procedures Referred By Contact Refer red To Contact Diagnoses Iodine Deficiency Related Diffuse Endemic Goiter Irina Pham C.NJulia [place] Region Procedures US Thyroid [address] [place], [place] [address] Referral ID Status Reason Start Date Expiration Date Visits Requ ested Visits Authorized [id number] Closed 07/04/2021 07/04/2022 1 1 Encounter Details Date Type Department Care Team Description 07/06/2021 Hospital Encounter Department of Irina Pham Iod ine Deficiency Radiology in Tarik Del Real C.N.P. Related [place], [place] [address] Endemic Goiter [address] [address] [place], [place] [phone] [address] (Work) [phone] Social History Tobacco Use Types Packs/Day Years [...] How often do you attend baptism or yarsani More than 4 time s [...] D3) 2,000 mouth daily. Unit capsule omega 6-xhl-uqd-fish oil Take 1 capsule by 0 10/1910/03/2021 600 mg-216 mg- 324 mouth daily. mg-1,200 mg capsule,delayed release(DR/EC) documented as of this encounter Plan of Treatment Not on filedocumented as of this encounter Procedures Procedure Name Priority Date/Time Associated Comments Diagnosis US THYROID RAD - Routine 07/06/2021 3:44 Iodine Deficiency Result s for this (most inpatients PM COVER INSPECTOR Related Diffuse procedur e are in and all Endemic Goiter the results outpatients) section. documented in this encounter Results US Thyroid (07/06/2021 3:44 PM COVER INSPECTOR) Anatomical Region Laterality Modality Head and Neck, Ultrasound RST LOS, Ultrasound ARZ LOS, N/A Ultrasound Ultrasound FLA LOS Specimen (Source) Anatomical Collection Method Collection Time Re ceived Time Location / / Volume Laterality 07/07/2021 9:13 AM COVER INSPECTOR Impressions 07/07/2021 9:23 AM COVER INSPECTOR 1. Thyromegaly. 2. Bilateral thyroid nodules have low caballero spicion for malignancy based on sonographic features, the largest on the right measuring 3.4 cm and the largest on the left measuring 3.0 cm. Consider f ollow-up per guidelines below. Narrative 07/07/2021 9:23 AM COVER INSPECTOR EXAM: US THYROID COMPARISON: 01/13/2011 FINDINGS: The [...] ultrasound score is 1. Based on the [facility]pert Thyroid Nodule Care Process Model, the nodule [...] foci: no echogenic foci (0 ). The [place] ultrasound score is 1. Based on the [facility] Thyroid Nodule Care Process Model, [...] ultrasound score is 0. Based on the [facility] Thyroid Nodule Care Process Model, the nodule has low suspic ion for malignancy (1-5%). Lymph nodes: No pathologically enlarged lymph nodes are seen in the neck, with evaluation of levels II-V. The thyroid nodule descriptions and marilyn gories are based on the Thyroid Nodule Care Process Model established by the [facility] [place]. https://askmayoexpert.[facility].org/top ic/clinical-answers/cnt-01953258/sec-203 2245 The AskPryoExpert Thyroid Nodule CPM sta neelam [...] echogenic foci: no echogenic foci (0). The [place] ultrasound score is 0. Based on the [facility]PryoExpert Thyroid Nodule Care Process Model, the nodule has low suspic ion for malignancy (1-5%). Lymph nodes: No pathologically enlarged lymph nodes are seen in the neck, with evaluation of levels II-V. The thyroid nodule descriptions and marilyn gories are based on the Thyroid Nodule Care Process Model established by the [facility] [place]. https://askmdyoexpert.[facility].org/top ic/clinical-answers/cnt-02696502/sec-203 7778 The [facility]Health[facility]Expert Thyroid Nodule CPM sta neelam the following [...]
--- OUTSIDE RECORDS SUMMARY | 2022-07-10 12:24 | XMS_ITS | Encounter Summary ---
:1955 Author Organization [facility] Address [address] [place] [address] Care Team Providers Name Role Phone Unavailable Primary Care Provider Unavailable Reason for Referral Outpatient (Routine) - Closed Specialty Diagnoses / Procedures Referred By Contact Refer red To Contact Endocrinology Diagnoses Goiter Multinodular Nontoxic Lion Carbajal [place] M.D. [address] [place] [address] Referral ID Status Reason Start Date Expiration Date Visits Requ ested Visits Authorized [id number] Closed 08/22/2021 08/22/2022 1 1 ER SERVICEMAN Reason for Visit Reason Comments Consult Thyroid nodule Appointment Request (Routine) - Closed Specialty Diagnoses / Procedures Referred By Contact Refer pamela To Contact General Surgery Referral ID Status Reason Start Date Expiration Date Visits Requ ested Visits Authorized [id number] Closed 08/17/2021 08/17/2022 1 1 Encounter Details Date Type Department Care Team Description 08/22/2021 Comprehensive Visit Department of Lion Carbajal General Surgery Jose Alberto Vela Nontoxic (Primary in [place], [address] Dx) [place], [place] [address] [address] [place], [place] [phone] [address] (Work) [phone] Social History Tobacco Use Types Packs/Day Years [...] How often do you attend denominational or mormon More than 4 time s [...] Comments Blood Pressure 135/71 08/22/2021 3:15 PM TANKER SERVICEMAN Pulse 87 08/22/2021 2:32 PM TANKER SERVICEMAN Temperature 36.3 ??C (97.3 ??F) 08/22/2021 2:32 PM TANKER SERVICEMAN Respiratory Rate - - Oxygen Saturation - [...] care provider is Irina Pham CNP of [facility]. Records reviewed in [facility] Everywhere. Patient Active Problem List Diagnosis [...] attempted CHOLANGIOGRAM; Surgeon: Augie Feldman D.O.; Location: [facility] OR ??? OPEN TENOTOMY OF [...] by mouth daily., Disp: , Rfl: ??? jhyvjqd-eucxpiqsl-oabo tablet, , Disp: , Rfl: ??? cholecalciferol [...] mouth daily., Disp: , Rfl: ??? omega 5-sgc-mdu-fish oil 600 mg-216 mg- 324 mg-1,200 mg [...] patient undergo this procedure with Radiology in [place], given the complexity with multiple large nodules. [...] care as described above. Lion Carbajal M.D. ER SERVICEMAN documented in this encounter Plan of Treatment Scheduled Referrals Name Type Priority Associated Diagnoses Order S [facility] Endocrinology - Outpatient Routine Goiter Multinodular Expec torrie: Thyroid nodule or Referral Nontoxic 08/22/2021 cancer consult (Approximate) , (clinic) Expires: 11/20/2022 documented as of this encounter Visit Diagnoses Diagnosis Goiter Multinodular Nontoxic - Primary documented in this encounter
--- OUTSIDE RECORDS SUMMARY | 2022-07-10 12:24 | XMS_ITS | Encounter Summary ---
:1955 Author Organization [facility] Address [address] [place] [address] Care Team Providers Name Role Phone Unavailable Primary Care Provider Unavailable Reason for Referral Specialty Diagnoses / Procedures Referred By Contact Refer red To Contact Torin Nguyen M.D. [facility] Region [address] [facility] [place] [address] Referral ID Status Reason Start Date Expiration Date Visits Requ ested Visits Authorized ITY NURSE Encounter Details Date Type Department Care Team Description 10/20/2020 Orders Only [facility] PCP [facility] Sa handy Geller M.D. [address] [place], [place] [phone] (Wo rk) Social History [...] How often do you attend islam or episcopalian More than 4 time s [...]
--- OUTSIDE RECORDS SUMMARY | 2022-07-10 12:24 | XMS_ITS | Encounter Summary ---
:1955 Author Organization [facility] Address [address] [place] [address] Care Team Providers Name Role Phone Unavailable Primary Care Provider Unavailable Reason for Referral Outpatient (Routine) - Closed Specialty Diagnoses / Procedures Referred By Contact Refer red To Contact Diagnoses Routine Screening Breast Exam Sánchez Young M.D., [facility] Region Procedures BI Breast Screening Bilateral with Tomosynthesis Ph.D. [address] [place] [phone] Referral ID Status Reason Start Date Expiration Date Visits Requ ested Visits Authorized [id number] Closed 06/22/2021 06/22/2022 1 1 Reason for Visit Outpatient (Routine) - Closed Specialty Diagnoses / Procedures Referred By Contact Refer red To Contact Diagnoses Routine Screening Breast Exam Sánchez Young M.D., [facility] Region Procedures BI Breast Screening Bilateral with Tomosynthesis Ph.D. [address] [place] [phone] Referral ID Status Reason Start Date Expiration Date Visits Requ ested Visits Authorized [id number] Closed 06/22/2021 06/22/2022 1 1 Encounter Details Date Type Department Care Team Description 06/24/2021 Hospital Encounter Department of Sánchez Young Routin e Screening Radiology mary lou Ponce M.D., Ph.D. Breast [address] [place], [place] Tarik López, [address] [place] [address] [phone] Social History Tobacco Use Types Packs/Day Years [...] How often do you attend moravian or scientologist More than 4 time s [...] D3) 2,000 mouth daily. Unit capsule omega 2-hcm-wmq-fish oil Take 1 capsule by 0 10/1910/03/2021 [...] TOMOSYNTHESIS Current study was evaluated with a [employer] Care[employer] ter Aided Detection (CAD) system. INDICATION: ??Screening mammogram. COMPARISON: ??Prior exam(s) were availab le and reviewed for comparison. DENSITY: ??b. There are scattered areas of fibroglandular density. FINDINGS: ??No mammographic findings of malignancy. Procedure Note Marcelino Shelley M.D. - 06/24/2021Format ting of this note might be different from the original. EXAM: BI BREAST SCREENING BILATERAL WITH TOMOSYNTHESIS Current study was evaluated with a UV Memory Careu ter Aided Detection (CAD) system. INDICATION: Screening [...]
--- OUTSIDE RECORDS SUMMARY | 2022-07-10 12:24 | XMS_ITS | Encounter Summary ---
:1955 Author Organization [facility] Address [address] [place] [address] Care Team Providers Name Role Phone Unavailable Primary Care Provider Unavailable Encounter Details Date Type Department Care Team Description 11/22/2020 Immunization Department of [facility] Shen Bowman For COVID-19 Medicine, [place] Jose Alberto Del Real Vaccine Immunization Professional Building, [address] [facility] in [address] [address] [place] [address] [phone] Social History Tobacco Use Types Packs/Day Years [...] How often do you attend christian or gnosticism More than 4 time s [...]
--- OUTSIDE RECORDS SUMMARY | 2022-07-10 12:24 | XMS_ITS | Encounter Summary ---
:1955 Author Organization [facility] Address [address] [place] [address] Care Team Providers Name Role Phone Unavailable Primary Care Provider Unavailable Reason for Visit Appointment Request (Routine) - Closed Specialty Diagnoses / Procedures Referred By Contact Refer red To Contact Family Medicine Referral ID Status Reason Start Date Expiration Date Visits Requ ested Visits Authorized [id number] Closed 07/08/2021 07/08/2022 1 1 Encounter Details Date Type Department Care Team Description 07/27/2021 Immunization Department of [facility] Shen Bowamn, Medicine, [place] M.D. Professional Building, in [address] [place] [address] [facility] [address] [place] [address] [phone] Social History Tobacco Use Types Packs/Day Years [...] How often do you attend adventism or rastafari More than 4 time s [...]
--- OUTSIDE RECORDS SUMMARY | 2022-07-10 12:24 | XMS_ITS | Encounter Summary ---
:1955 Author Organization [facility] Address [address] [place] [address] Care Team Providers Name Role Phone Unavailable Primary Care Provider Unavailable Encounter Details Date Type Department Care Team Description 12/09/2018 Hospital Encounter Department of Irina Pham [facility] [place], [place] [address] [place] [phone] Social History Tobacco Use Types Packs/Day Years [...] How often do you attend jain or voodoo More than 4 time s [...] D3) 2,000 mouth daily. Unit capsule omega 6-rjp-toc-fish oil Take 1 capsule by 0 10/1910/03/2021 [...] Imaging RST LOS, Breast Imaging ARZ LOS, [address] [facility] Bilateral Mammography Imaging FLA LOS Specimen [...]
--- OUTSIDE RECORDS SUMMARY | 2022-07-10 12:24 | XMS_ITS | Encounter Summary ---
:1955 Author Organization [facility] Address [address] [place] [address] Care Team Providers Name Role Phone Unavailable Primary Care Provider Unavailable Encounter Details Date Type Department Care Team Description 09/20/2021 Clinical Communication Division of Zelda Dang Endocrinology in Jose Alberto Warren [place], [place] [address] [facility] [address] [place] [address] [phone] Social History Tobacco Use Types Packs/Day Years [...] often do you attend roman catholic or mosque More than 4 time s [...]
--- OUTSIDE RECORDS SUMMARY | 2022-07-10 12:24 | XMS_ITS | Encounter Summary ---
:1955 Author Organization [facility] Address [address] [place] [address] Care Team Providers Name Role Phone Unavailable Primary Care Provider Unavailable Encounter Details Date Type Department Care Team Description 05/11/2021 Admin Visit Department of Family Shen Bowman [facility] [address] [facility] [address] [place] [address] [phone] (Wo rk) Social History Tobacco Use Types [...] often do you attend oriental orthodox or hinduism More than 4 time s [...]
--- OUTSIDE RECORDS SUMMARY | 2022-07-10 12:24 | XMS_ITS | Encounter Summary ---
:1955 Author Organization [facility] Address [address] [place] [address] Care Team Providers Name Role Phone Unavailable Primary Care Provider Unavailable Reason for Visit Reason Comments Follow-up right foot neuroma returned new orthotics? Encounter Details Date Type Department Care Team Description 11/21/2018 [facility] To e Acquired Right (Primary Dx); Orthopedic Surgery in , [place] Neurom a; Ezekiel Beasley D.P.M. Pronation Foot Left; [address] Pronation Foot Right; [place] Metatarsalgia L [place]ft; [address] Metatarsalgia Right [phone] Social History Tobacco Use Types Packs/Day Years [...] often do you attend jehovah's witness or buddhist More than 4 time s [...] 2 tablets by mouth daily. ??? omega 3-uhh-ono-fish oil 600 mg-216 mg- 324 mg-1,200 mg [...]
--- OUTSIDE RECORDS SUMMARY | 2022-07-10 12:24 | XMS_ITS | Encounter Summary ---
:1955 Author Organization [facility] Address [address] [place] [address] Care Team Providers Name Role Phone Unavailable Primary Care Provider Unavailable Reason for Visit Reason Comments TIFFANIE Nurse Line Encounter Details Date Type Department Care Team Description 05/11/2021 Clinical Communication Division of Jennie Hatch Nurse Scarlett [facility] C, R.N. [facility] [address] [place] [address] [place] [address] [place], [place] (Work) [phone] Social History Tobacco Use Types Packs/Day Years [...] How often do you attend gnosticist or shinto More than 4 time s [...] Screening ASSESSMENT Region Select appropriate region: : [place] Age Pathway Select approprite pathway: : Adult [...] swabbed for COVID-19 Only , sent to [facility] located at [address]. An appointment is required for testing, please call [phone] Sunday- Sunday 7am to 6pm and Sunday [...] frequently with soap and water, use hand customer support agent if soap and water aren't available. -Wear [...] Yes The following references were used: [facility] novel coronavirus (COVID- 19) resources Nursing judgement documented in this encounter Plan of Treatment Not on filedocumented as of this encounter Visit Diagnoses Not on filedocumented in this encounter
--- OUTSIDE RECORDS SUMMARY | 2022-07-10 12:24 | XMS_ITS | Encounter Summary ---
:1955 Author Organization [facility] Address [address] [place] [address] Care Team Providers Name Role Phone Unavailable Primary Care Provider Unavailable Reason for Visit Reason Onset Date Comments Testing For Upper Respiratory Virus Symptoms 08/28/2021 Encounter Details Date Type Department Care Team Description 08/28/2021 External Outreach Department of Family Kyra Cosby Contact With And Medicine, OrganJo JaimeAManoj (Suspected) Exposure Clinic, in [address] To COVID-19 (Primary [place], [place] Dx) [address] [facility] [address] [place], [place] [phone] (Work) [phone] Social History Tobacco Use Types Packs/Day Years [...] Influenza, RSV, and/or Group A Strep testing. NGUAL COUNTER SALES RETAIL documented in this encounter Plan of Treatment Not on filedocumented as of this encounter Procedures Procedure Name Priority Date/Time Associated Diagnosis Comme nts SARS CORONAVIRUS-2 Routine 08/29/2021 10:06 AM Contact With An d Results for this RNA, V BILINGUAL COUNTER SALES RETAIL (Suspected) Exposure procedu re are in To COVID-19 the results section. documented in this encounter Results SARS Coronavirus-2 RNA, V Symptomatic (08/29/2021 10:06 AM BILINGUAL COUNTER SALES RETAIL) [facility] Method Time Signature SARS-CoV-2 Swab, 08/30/2021 ECLR Specimen Nasopharynx 2:16 AM BILINGUAL COUNTER SALES RETAIL Source SARS CoV-2 Undetected Undetected 08/30/2021 ECLR RNA, TMA 2:16 AM BILINGUAL COUNTER SALES RETAIL Comment: SARS-CoV-2 RNA absent. This result does not rule out COVID-19 in the patient, as the sensitivity of the test depends o n the timing of the specimen collection and the quality of the specim en. Result should be correlated with patient's history and clinical presentat ion. ----ADDITIONAL INFORMATION---- This molecular amplification test was pe rformed using the Aptima SARS-CoV-2 assay ([employer] on the [a]list gamess tem under emergency use authorization (EUA) by the U.S. Food and Drug Administ emmie. Fact sheets for this EUA assay can be fo und at the following links: For Healthcare Providers: https://www.fd a.gov/media/785422/download For Patients: https://www.fda.gov/media/ 939223/download Specimen Anatomical Collection Method Collection Time Receive d Time (Source) Location / / Volume Laterality Varies 08/29/2021 10:06 08/29/2021 2:37 (Nasopharynx) AM BILINGUAL COUNTER SALES RETAIL PM BILINGUAL COUNTER SALES RETAIL Ramón Cosby P.A.-C. LAB MICROBIOLOGY - GENERAL O RDERABLES Performing Organization Address City/State/ZIP Code Phon e Number [facility]- [address] [place] [phone] [place] [address] [place] [address] System in [address] documented in this encounter Visit Diagnoses Diagnosis Contact With And (Suspected) Exposure To COVID-19 - Primary documented in this encounter Additional Health Concerns Infection Onset Date Last Indicated Resolved Time COVID19 Pending 08/28/2021 08/29/2021 08/30/2021 2:17 AM BILINGUAL COUNTER SALES RETAIL documented as of this encounter
--- OUTSIDE RECORDS SUMMARY | 2022-07-10 12:24 | XMS_ITS | Encounter Summary ---
:1955 Author Organization [facility] Address [address] [place] [address] Care Team Providers Name Role Phone Unavailable Primary Care Provider Unavailable Reason for Referral Physical Therapy (Routine) - Closed Specialty Diagnoses / Procedures Referred By Contact Refer red To Contact Diagnoses Primary Osteoarthritis Knee Bilateral Pain Knee Right Roberto Salazar [facility] Procedures PT Evaluate and treat Jose Alberto [address] [place] [phone] Referral ID Status Reason Start Date Expiration Date Visits Requ ested Visits Authorized [id number] Closed 02/02/2021 02/02/2022 1 1 Reason for Visit Appointment Request (Routine) - Closed Specialty Diagnoses / Procedures Referred By Contact Refer pamela To Contact Orthopedic Surgery Referral ID Status Reason Start Date Expiration Date Visits Requ ested Visits Authorized [id number] Closed 01/31/2021 01/31/2022 1 1 Encounter Details Date Type Department Care Team Description 02/02/2021 Comprehensive Visit Department of Martin Primary Osteoarthritis Knee Bilateral (Primary Dx); Orthopedic Surgery Zelda Weber Pain Knee Right in [address] [address] [place], [place] [phone] (Work) [phone] Social History Tobacco Use Types Packs/Day Years [...] How often do you attend amish or nondenominational More than 4 time s [...] attempted CHOLANGIOGRAM; Surgeon: Augie Feldman D.O.; Location: [facility] OR ??? OPEN TENOTOMY OF [...] mouth daily., Disp: , Rfl: ??? omega 1-mgv-aqu-fish oil 600 mg-216 mg- 324 mg-1,200 mg [...] agreement with plan.She is going to take yovg-kuh-qjrkcdn pain medications on an as-needed basis for [...] of the patella. Roberto [facility] GAURANG documented in this encounter Visit Diagnoses Diagnosis Primary Osteoarthritis Knee Bilateral - Primary Pain Knee Right Primary Osteoarthritis Knee Bilateral documented in this encounter
--- OUTSIDE RECORDS SUMMARY | 2022-07-10 12:24 | XMS_ITS | Encounter Summary ---
:1955 Author Organization [facility] Address [address] [place] [address] Care Team Providers Name Role Phone Unavailable Primary Care Provider Unavailable Reason for Referral Specialty Diagnoses / Procedures Referred By Contact Refer red To Contact [facility] Benedict [facility] [address] [facility] Professional [id number] [place] [phone] Referral ID Status Reason Start Date Expiration Date Visits Requ ested Visits Authorized TOR Encounter Details Date Type Department Care Team Description 10/28/2020 Immunization Department of Anabel Alcantara Enco unter For COVID-19 Medicine, Benedict Jose Alberto Vaccine Immunization Professional [facility], [address] (Primary Dx) in [place], [place] [address] [place] [phone] [place] [phone] Social History Tobacco Use Types Packs/Day [...]
--- OUTSIDE RECORDS SUMMARY | 2022-07-10 12:24 | XMS_ITS | Encounter Summary ---
:1955 Author Organization [facility] Address [address] [place] [address] Care Team Providers Name Role Phone Unavailable Primary Care Provider Unavailable Encounter Details Date Type Department Care Team Description 06/22/2021 Clinical Communication Department of Anuksh Sheehan, Medicine, [place] Jose Alberto, Ph. D. Clinic, in [address] [phone] Social History Tobacco Use Types Packs/Day Years [...] How often do you attend restorationist or congregational More than 4 time s [...]
--- OUTSIDE RECORDS SUMMARY | 2022-07-10 12:25 | XMS_ITS | Encounter Summary ---
:1955 Author Organization [facility] Address [address] [place] [address] Care Team Providers Name Role Phone Unavailable Primary Care Provider Unavailable Encounter Details Date Type Department Care Team Description 10/08/2015 Hospital Encounter HX [facility] hSereen Kaplan, C.N.P. [address] [place] [address] (Wo rk) Social History Tobacco [...] How often do you attend sikh or temple More than 4 time s [...] 156 cm (5' 1.42) 10/08/2015 11:03 AM CUSTOMER RELATIONSHIP SPECIALIST Body Mass Index - - documented in [...] daily. mg(1,250mg) -125 unit per tablet omega 3-txg-wyy-fish oil Take 1 capsule by 0 10/1910/03/2021 [...] Caller Information: Who initiated call? (x)Patient/caller (_) [facility] Staff Who was the communication with? 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 [phone] May we leave information on voice mail or answering machine if needed? (_) No (x) Yes Interpreter Deaf requested? (x)No (_) Yes Comment: _ Call [...] Provider consulted Name_ (x) RN judgement Source: [facility] Document Id: [id number] Electronically signed by Conversion, [facility] Armature Winder Repair Helper [id number] at 01/13/2017 8:11 AM CDT Miscellaneous - Conversion, Historical Provider Ser - 10/08/2015 11:59 PM CUSTOMER RELATIONSHIP SPECIALIST Coding Summary-Paper Based CODING DATE: 10/15/2015 FINAL [facility] STATUS: * Discharged to Home or Self [...] CLARKE Date Saved: 10/15/2015 02:05 pm Source: [employer] Document Id: [id number] documented in this encounter Plan of Treatment Not on filedocumented as of this encounter Visit Diagnoses Not on filedocumented in this encounter
--- OUTSIDE RECORDS SUMMARY | 2022-07-10 12:25 | XMS_ITS | Encounter Summary ---
:1955 Author Organization [facility] Address [address] [place] [address] Care Team Providers Name Role Phone Unavailable Primary Care Provider Unavailable Reason for Referral Outpatient (Routine) - Closed Specialty Diagnoses / Procedures Referred By Contact Refer red To Contact Emergency Medicine Diagnoses Colic Biliary Augie Berry M.D. [facility] [address] [address] Referral ID Status Reason Start Date Expiration Date Visits Requ ested Visits Authorized [id number] Closed 08/14/2017 02/10/2018 1 1 utpatient (Routine) - Closed Specialty Diagnoses / Procedures Referred By Contact Refer red To Contact Emergency Medicine Diagnoses Cholecystitis Shivam Samayoa M.D. [facility] [address] [address] Referral ID Status Reason Start Date Expiration Date Visits Requ ested Visits Authorized [id number] Closed 08/14/2017 02/10/2018 1 1 APEUTIC RADIOLOGIST Reason for Visit Reason Comments Pain c/o [...] Expiration Date Visits Requ ested Visits Authorized [id number] 1 1 Encounter Details Date Type Department Care Team Description 08/14/2017 Emergency [place] [facility] Shivam Samayoa, Cholec ystitis (Primary Dx); Department M.D. Colic Biliary [address] [facility] [address] [facility] [place] [phone] Social History Tobacco Use Types Packs/Day [...] How often do you attend catholic or mosque More than 4 time [...] Comments Blood Pressure 115/66 08/14/2017 1:15 PM THERAPEUTIC RADIOLOGIST Pulse 90 08/14/2017 1:15 PM THERAPEUTIC RADIOLOGIST Temperature 36.5 ??C (97.7 ??F) 08/14/2017 8:50 AM THERAPEUTIC RADIOLOGIST Respiratory Rate 14 08/14/2017 10:11 AM THERAPEUTIC RADIOLOGIST Oxygen Saturation 96% 08/14/2017 1:15 PM THERAPEUTIC RADIOLOGIST Inhaled Oxygen Concentration - - Weight 97.8 kg (215 lb 9.8 oz) 08/14/2017 8:52 AM THERAPEUTIC RADIOLOGIST Height 157.5 cm (5' 2) 08/14/2017 8:52 AM THERAPEUTIC RADIOLOGIST Body Mass Index 39.44 08/14/2017 8:52 AM THERAPEUTIC RADIOLOGIST documented in this encounter Discharge Instructions AttachmentsThe following attachments cannot be sent through Care Everywhere. Cholecystitis (South Korean)documented in this encounter Medications at Time [...] D3) 2,000 mouth daily. Unit capsule omega 6-gao-dtt-fish oil Take 1 capsule by 0 10/1910/03/2021 [...] and complete. Shivam Samayoa M.D. 08/14/17 1229 APEUTIC RADIOLOGIST documented in this encounter Plan of Treatment [...] OR BILIARY DUCTS (Fast; most ED AM THERAPEUTIC RADIOLOGIST procedure are in patients; some the results inpatients) section. HEPATIC FUNCTION STAT 08/14/2017 9:20 Results for this PANEL, S AM THERAPEUTIC RADIOLOGIST procedure are i n the results section. CBC WITH STAT 08/14/2017 9:20 Results for this DIFFERENTIAL, B AM THERAPEUTIC RADIOLOGIST procedure ar e in the results section. LIPASE, S/P STAT 08/14/2017 9:20 Results for this AM THERAPEUTIC RADIOLOGIST procedure are i n the results section. BASIC METABOLIC STAT 08/14/2017 9:20 Results f or this PANEL, S/P AM THERAPEUTIC RADIOLOGIST procedure are i n the results section. documented in this encounter Results US Gallbladder (08/14/2017 9:52 AM THERAPEUTIC RADIOLOGIST) Anatomical Region Laterality Modality Abdomen N/A Ultrasound Specimen (Source) Anatomical Collection Method Collection Time Re ceived Time Location / / Volume Laterality 08/14/2017 9:58 AM THERAPEUTIC RADIOLOGIST Impressions 08/14/2017 10:03 AM THERAPEUTIC RADIOLOGIST IMPRESSION: Distended gallbladder with stones and sludge. Sonographic Saunders sign was unable to be accurately assesse d secondary to the patient having received pain medications. Exam is equiv ocal for cholecystitis. Consider surgical consultation as clinically flor[place] cated. Findings discussed on the phone on 08/14 at 10:[address] Samayoa. Narrative 08/14/2017 10:03 AM THERAPEUTIC RADIOLOGIST EXAM: US GALLBLADDER COMPARISON: None FINDINGS: Gallbladder [...] PROCEDURES Hepatic Function Panel (08/14/2017 9:20 AM THERAPEUTIC RADIOLOGIST) Patholo gist Method Time Signature Bilirubin, Total, S 0.6 <=1.2 08/14/2017 [facility] mg/dL 9:48 AM [facility] Shared [facility] Bilirubin, Direct, S <0.2 0.0 - 0.3 08/14/2017 [facility] mg/dL 10:15 [facility] Aspartate 26 8 - 43 08/14/2017 [facility] Aminotransferase U/L 9:48 AM [facility] Shared Performance (AST), [facility] Alanine 32 7 - 45 08/14/2017 [facility] Aminotransferase U/L 9:48 AM [facility] Shared Performance (ALT)[employer] [facility] Alkaline 106 50 - 130 08/14/2017 [facility] Phosphatase, S U/L 9:48 AM [facility] Albumin, S 4.4 3.5 - 5.0 08/14/2017 [facility] g/dL 9:48 AM [facility] Protein, Total, S 7.2 6.3 - 7.9 08/14/2017 [facility] g/dL 9:48 AM [facility] Specimen Anatomical Collection Method Collection Time Receive d Time (Source) Location / / Volume Laterality Blood (Blood, 08/14/2017 9:20 AM 08/14/20 17 9:25 Venous) THERAPEUTIC RADIOLOGIST AM THERAPEUTIC RADIOLOGIST Shivam Samayoa M.D. LAB BLOOD ADD-ON Performing Organization Address City/State/ZIP Code Phon e Number [facility] [address] [place] [address] [facility] Lipase (08/14/2017 9:20 AM THERAPEUTIC RADIOLOGIST) P athologist Signature Lipase, P 27 13 - 60 U/L 08/14/2017 [facility] 9:48 AM [facility] Specimen Anatomical Collection Method Collection Time Receive d Time (Source) Location / / Volume Laterality Blood (Blood, 08/14/2017 9:20 AM 08/14/20 17 9:24 Venous) THERAPEUTIC RADIOLOGIST AM [facility] Shivam Samayoa M.D. LAB BLOOD ADD-ON Performing Organization Address City/State/ZIP Code Phon e Number [facility] [address] [place] [address] [facility] (ABNORMAL) BMP (Basic Metabolic Panel) (08/14/2017 9:20 AM [facility]) Analysis Performed At [facility] logist Time Signature Potassium, P 3.6 3.6 - 5.2 08/14/2017 [facility] mmol/L 9:48 AM [facility] Sodium, P 137 135 - 145 08/14/2017 [facility] mmol/L 9:48 AM [facility] Chloride, P 99 98 - 107 08/14/2017 [facility] mmol/L 9:48 AM [facility] Bicarbonate, P 25 22 - 29 08/14/2017 [facility] mmol/L 9:48 AM [facility] Anion Gap, P 13 7 - 15 08/14/2017 [facility] 9:48 AM [facility] BUN (Blood Urea 10 6 - 21 08/14/2017 [facility] Nitrogen), P mg/dL 9:48 AM [facility] Creatinine 0.58 (L) 0.59 - 08/14/2017 [facility] 1.04 mg/dL 9:48 AM [facility] eGFR-Black/Afri >90 >=60 08/14/2017 [facility] can Ethiopian mL/min/BSA 9:48 AM [facility] Comment: ----ADDITIONAL INFORMATION---- Estimated GFR calculated using the 2009 CKD_EPI creatinine equation. eGFR Non-Black/ >90 >=60 mL/min/BSA 08/14/2017 9:48 AM [facility] Ethiopian [facility] Comment: ----ADDITIONAL INFORMATION---- Estimated GFR calculated using the 2009 CKD_EPI creatinine equation. Calcium, Total, P 8.7 (L) 8.9 - 10.1 mg/dL 08/14/2017 9 :48 AM [facility] Glucose, P 122 70 - 140 mg/dL 08/14/2017 9:48 AM [facility] Specimen Anatomical Collection Method Collection Time Receive d Time (Source) Location / / Volume Laterality Blood (Blood, 08/14/2017 9:20 AM 08/14/20 17 9:24 Venous) THERAPEUTIC RADIOLOGIST AM THERAPEUTIC RADIOLOGIST Shivam Samayoa M.D. LAB BLOOD ADD-ON Performing Organization Address City/State/ZIP Code Phon e Number [facility] [address] [place] [address] [facility] (ABNORMAL) CBC with Differential (08/14/2017 9:20 AM [facility]) [facility] Method Time Signature Hemoglobin 13.8 11.6 - 08/14/2017 [facility] 15.0 g/dL 9:27 AM [facility] Hematocrit 40.5 35.5 - 08/14/2017 [facility] 44.9 % 9:27 AM [facility] [employer] [facility] Erythrocytes 4.62 3.92 - 08/14/2017 [facility] 5.13 9:27 AM [facility] Shared Performance x10(12)/L [facility] MCV 87.7 78.2 - 08/14/2017 [facility] 97.9 fL 9:27 AM [facility] [employer] LAB RBC Distrib Width 13.3 12.2 - 08/14/2017 [facility] 16.1 % 9:27 AM [facility] [employer] LAB Platelet Count 188 157 - 371 08/14/2017 [facility] x10(9)/L 9:27 AM [facility] [employer] LAB Leukocytes 12.7 (H) 3.4 - 9.6 08/14/2017 [facility] x10(9)/L 9:27 AM [employer] [facility] Neutrophils 10.79 (H) 1.56 - 08/14/2017 [facility] 6.45 9:27 AM [employer] x10(9)/L [employer] [facility] Lymphocytes 1.18 0.95 - 08/14/2017 [facility] 3.07 9:27 AM [employer] x10(9)/L [employer] [facility] Monocytes 0.63 0.26 - 08/14/2017 [facility] 0.81 9:27 AM [facility] [employer] x10(9)/L [facility] Eosinophils 0.03 0.03 - 08/14/2017 [facility] 0.48 9:27 AM THERAPEUTIC RADIOLOGIST HEALTH x10(9)/L [facility] Basophils 0.03 0.01 - 08/14/2017 [facility] 0.08 9:27 AM THERAPEUTIC RADIOLOGIST HEALTH x10(9)/L [facility] Specimen Anatomical Collection Method Collection Time Receive d Time (Source) Location / / Volume Laterality Blood (Blood, 08/14/2017 9:20 AM 08/14/20 17 9:25 Venous) THERAPEUTIC RADIOLOGIST AM THERAPEUTIC RADIOLOGIST Shivam Samayoa M.D. LAB BLOOD ADD-ON Performing Organization Address City/State/ZIP Code Phon e Number [facility] [address] [place] [address] [facility] documented in this encounter Visit Diagnoses Diagnosis Cholecystitis - Primary Colic Biliary documented in this encounter Administered Medications Inactive Administered Medications - up to 3 most recent administrations Medication Order MAR Action Action Date Dose Rate Site ciprofloxacin in D5W IVPB 400 New Bag 08/14/2017 12:15 PM 400 mg 200 mL/hr mg (for_CIPRO) THERAPEUTIC RADIOLOGIST 400 mg, intravenous, at 200 mL/hr, Administer over 60 Minutes, Once, On Sun08/14/17 at 1110, For 1 dose, premix bag, Drug Monitoring Program: Pharmacist to adjust medication order based on comorbities and indication., Indications: Intra-abdominal infection, community acquired HYDROmorphone injection 0.5 mg (for_DILA UDID) Given 08/14/2017 1:24 PM THERAPEUTIC RADIOLOGIST 0.5 mg 0.5 mg, intravenous, Every 15 min PRN, severe pain or score 7-10 of 10, Starting on Sun08/14/17 at 0908, For 4 doses Given 08/14/2017 11:26 AM THERAPEUTIC RADIOLOGIST 0.5 mg Given 08/14/2017 9:17 AM THERAPEUTIC RADIOLOGIST 0.5 mg metroNIDAZOLE in NaCl (iso-osm) New Bag 08/14/2017 11:40 AM CS T 500 mg 200 mL/hr IVPB 500 mg (for_FLAGYL) 500 mg, intravenous, at 200 mL/hr, Administer over 30 Minutes, Once, On Sun08/14/17 at 1110, For 1 dose, Indications: Intra-abdominal infection, community acquired NaCl 0.9 % bolus 1,000 mL New Bag 08/14/2017 9:18 AM THERAPEUTIC RADIOLOGIST 1,000 mL 1,000 mL, intravenous, Once, On Sun08/14/17 at 0909, For 1 dose documented in this encounter Active and Recently Administered Medications Times are shown in THERAPEUTIC RADIOLOGIST. Scheduled Medication Order 08/12/2017 08/13/2017 08/14/2017 ciprofloxacin in D5W IVPB 400 mg (for_CIPRO) (COMPLETED) 1215 (New Bag - Provider: Georgette George R.N.)1315 (Stopped - Provider: Rey MendozaN.) 400 mg, intravenous, at 200 mL/hr, Admin ister over 60 Minutes, Once, On Sun08/14/17 at 1110, For 1 dose, premix bag, Drug Monitoring Program: Pharmacist to adjust medication order based on comorbities and indication., Indications: Intra-abdominal infection, communi ty acquired metroNIDAZOLE in NaCl (iso-osm) IVPB 500 mg (for_FLAGYL) (COMPLE KARUNA) 1140 (New Bag - Provider: Georgette George RLiane.)1210 (Stopped - Provider: Rey MendozaNNaomi) 500 mg, intravenous, at 200 mL/hr, Admin ister over 30 Minutes, Once, On Sun08/14/17 at 1110, For 1 dose, Indications: Intra-abdominal infection, community acquired NaCl 0.9 % bolus 1,000 mL (COMPLETED) 0918 (New Bag - Provider: Georgette George RNaomiN.)1050 (Stopped - Provider: Rey MendozaNNaomi) 1,000 mL, intravenous, Once, On Sun08/14/17 at 0909, For 1 dose PRN Medication Order 08/12/2017 08/13/2017 08/14/2017 HYDROmorphone injection 0.5 mg (for_DILAUDID) 0917 (Given - Provider: Georgette George RNaomiN.)1126 (Given - Provider: Rey MendozaN.)1324 (Given - Provider: Rey MendozaN.) 0.5 mg, intravenous, Every 15 min PRN, s evere pain or score 7-10 of 10, Starting on Sun08/14/17 at 0908, For 4 doses documented in this encounter
--- OUTSIDE RECORDS SUMMARY | 2022-07-10 12:25 | XMS_ITS | Encounter Summary ---
:1955 Author Organization [facility] Address [address] [place] [address] Care Team Providers Name Role Phone Unavailable Primary Care Provider Unavailable Encounter Details Date Type Department Care Team Description 03/04/2013 Hospital Encounter [facility] Ana Felix D.P.M. [address] [place] [phone] (Wo rk) Social History Tobacco Use [...] How often do you attend sikh or mormonism More than 4 time s [...] Provider Ser - 03/04/2013 12:00 AM CDT [id number] Please call patient at [phone] concerning Source: [facility] [id number] Document Id: [id number] documented in this encounter Plan of Treatment Not on filedocumented as of this encounter Visit Diagnoses Not on filedocumented in this encounter
--- OUTSIDE RECORDS SUMMARY | 2022-07-10 12:25 | XMS_ITS | Encounter Summary ---
:1955 Author Organization [facility] Address [address] [place] [address] Care Team Providers Name Role Phone Unavailable Primary Care Provider Unavailable Reason for Visit Auth/Cert Specialty Diagnoses / Procedures Referred By Contact Refer red To Contact Diagnoses Calculus of bile duct without cholangitis or cholecystitis with obstruction Calculus of bile duct without cholangitis or cholecystitis with obstruction Procedures CA CHOLECYSTECTOMY W CHOLANGIOGR Gallbladder removal Referral ID Status Reason Start Date Expiration Date Visits Requ ested Visits Authorized [id number] 1 1 Encounter Details Date Type Department Care Team Description 08/14/2017 [facility] MAIN OR Alvin Mathur LAPAROSCOPIC [address]EN P, D.O. CHOLECYSTECTOMY WITH KRISTINE JOHNSON [address] attempted CHOLANGIOGRAM [id number] KRISTINE Rosa [address] Social History Tobacco Use [...] How often do you attend sabianist or rastafari More than 4 time s [...] Comments Blood Pressure 167/66 08/14/2017 4:33 PM HEALTHCARE PROJECT MANAGER Pulse 87 08/14/2017 4:33 PM HEALTHCARE PROJECT MANAGER Temperature 37.5 ??C (99.5 ??F) 08/14/2017 4:33 PM HEALTHCARE PROJECT MANAGER Respiratory Rate 14 08/14/2017 4:33 PM HEALTHCARE PROJECT MANAGER Oxygen Saturation - - Inhaled Oxygen Concentration - - Weight 97.1 kg (214 lb 1.1 oz) 08/14/2017 4:33 PM HEALTHCARE PROJECT MANAGER Height 157.5 cm (5' 2) 08/14/2017 4:33 PM HEALTHCARE PROJECT MANAGER Body Mass Index 39.52 08/14/2017 4:33 PM HEALTHCARE PROJECT MANAGER documented in this encounter Discharge Summaries Alvin [...] Case IDs Date Procedure Surgeon Location Status [id number] 08/14/17 LAPAROSCOPIC CHOLECYSTECTOMY WITH attempted CHOLANGIOGRAM Alvin Mathur D.O. [facility] OR [facility] DISCHARGE DISPOSITION Home or Self Care [...] tablet Commonly known as: Allergy Immunotherapy omega 9-ell-rme-fish oil 600 mg-216 mg- 324 mg-1,200 mg [...] THIS ADMISSION None CONDITION AT DISCHARGE good THCARE PROJECT MANAGER documented in this encounter Discharge Instructions AttachmentsThe following attachments cannot be sent through Care Everywhere.Care of Your Surgical Drainage Tube (Tongan)documented in this encounter Medications at Time of [...] D3) 2,000 mouth daily. Unit capsule omega 0-rql-ufp-fish oil Take 1 capsule by 0 10/1910/03/2021 [...] own drain for the next several days. THCARE PROJECT MANAGER Nila Farooq M.D. - 08/15/2017 8:19 AM CST Anesthesia Post-Op Visit Patient: Damian Tolentino Anesthesia Post-Op Visit Postoperative day: 1 Follow-up type: inpatient Cardiovascular status: hemodynamic (HR & BP) acceptable Respiratory status: patent airway with spontaneous effort Oxygen requirements: room air Level of consciousness: awake Pain score: pain adequately controlled and /or at baseline Post Op nausea/vomiting: none THCARE PROJECT MANAGER documented in this encounter Nursing Notes Monika [...] and demonstrated proper emptying of [place] drain THCARE PROJECT MANAGER George Rico R.N. - 08/15/2017 2:15 PM [...] to discharge later today once Doctor rounds THCARE PROJECT MANAGER Rupinder Muro R.N. - 08/15/2017 4:21 AM [...] pain control and used call light appropriately. THCARE PROJECT MANAGER Senia Manrique R.N. - 08/14/2017 4:36 PM CST Goals: Patient will have adequate pain control throughout shift Identify possible barriers to meeting goals/advancing plan of care: Acute illness Stability of the patient: Moderately Unstable - Medium risk of patient condition declining or worsening End of Shift Summary:Patient has had adequate pain control throughout shift THCARE PROJECT MANAGER documented in this encounter OR Notes Op Note - Alvin Mathur D.O. - 08/14/2017 7:13 PM CST FULL OP NOTE Procedure(s): LAPAROSCOPIC CHOLECYSTECTOMY WITH attempted CHOLANGIOGRAM Surgeon(s) and Role: * Alvin Mathur D.O. - Primary Shot Man: Susan Bear L.P.N. Anesthesia Type: General Pre-Operative [...] in log * Alvin Mathur D.O. TPR THCARE PROJECT MANAGER Brief Op Note - Alvin Mathur D.O. [...] implants in log * Alvin Mathur D.O. THCARE PROJECT MANAGER documented in this encounter Plan of Treatment Scheduled Referrals Name Type Priority Associated Diagnoses Order S [facility] General Surgery Outpatient Referral Routine Cholecystitis Expe cted: Post Op (clinic) 08/22/2017 (Approximate), Expires: 08/15/2020 documented as of this encounter Procedures Procedure Name Priority Date/Time Associated Comments Diagnosis HEPATIC FUNCTION Routine 08/15/2017 5:56 Results for PANEL, S AM HEALTHCARE PROJECT MANAGER this procedure are in the results section. CBC WITH Routine 08/15/2017 5:56 Results for DIFFERENTIAL, B AM HEALTHCARE PROJECT MANAGER this procedu re are in the results section. INCENTIVE SPIROMETRY Routine 08/15/2017 1:23 - RT/RN AM HEALTHCARE PROJECT MANAGER INCENTIVE SPIROMETRY Routine 08/15/2017 1:23 - RT/RN AM HEALTHCARE PROJECT MANAGER INCENTIVE SPIROMETRY Routine 08/15/2017 1:23 - RT/RN AM HEALTHCARE PROJECT MANAGER INCENTIVE SPIROMETRY Routine 08/15/2017 1:23 - RT/RN AM HEALTHCARE PROJECT MANAGER INCENTIVE SPIROMETRY Routine 08/15/2017 1:23 - RT/RN AM HEALTHCARE PROJECT MANAGER INCENTIVE SPIROMETRY Routine 08/15/2017 1:23 - RT/RN AM HEALTHCARE PROJECT MANAGER INCENTIVE SPIROMETRY Routine 08/15/2017 1:23 - RT/RN AM HEALTHCARE PROJECT MANAGER INCENTIVE SPIROMETRY Routine 08/15/2017 1:23 - RT/RN AM HEALTHCARE PROJECT MANAGER FL FLUORO LESS THAN 1 RAD - Routine 08/14/2017 8:00 Re sults for HOUR (most inpatients PM HEALTHCARE PROJECT MANAGER this proced ure and all are in the outpatients) results section. PATHOLOGY SERVICES Routine 08/14/2017 7:18 Cholecystitis Resul ts for PM HEALTHCARE PROJECT MANAGER this procedure are in the results section. LAPAROSCOPIC 08/14/2017 6:25 Cholecystitis CHOLECYSTECTOMY WITH PM HEALTHCARE PROJECT MANAGER CHOLANGIOGRAM documented in this encounter Results (ABNORMAL) Hepatic Function Panel (08/15/2017 5:56 AM HEALTHCARE PROJECT MANAGER) [facility] Time Signature Bilirubin, Total, S 0.8 <=1.2 08/15/2017 [facility] mg/dL 6:53 AM [facility] Bilirubin, Direct, S 0.2 0.0 - 0.3 08/15/2017 [facility] mg/dL 6:53 AM [facility] Aspartate 76 (H) 8 - 43 08/15/2017 [facility] ER Aminotransferase U/L 6:53 AM [facility] [employer] (AST), S [facility] [employer] [facility] Alanine 81 (H) 7 - 45 08/15/2017 [facility] ER Aminotransferase U/L 6:53 AM [facility] [employer] (ALT), S [facility] Alkaline 75 50 - 130 08/15/2017 [facility] ER Phosphatase, S U/L 6:53 AM [facility] Albumin, S 3.5 3.5 - 5.0 08/15/2017 [facility] ER g/dL 6:53 AM [facility] Protein, Total, S 6.2 (L) 6.3 - 7.9 08/15/2017 [facility] ER g/dL 6:53 AM [facility] Specimen Anatomical Collection Method Collection Time Receive d Time (Source) Location / / Volume Laterality Blood (Blood, 08/15/2017 5:56 AM 08/15/20 17 6:14 Venous) HEALTHCARE PROJECT MANAGER AM HEALTHCARE PROJECT MANAGER Alvin Mathur D.O. LAB BLOOD ADD-ON Performing Organization Address City/State/ZIP Code Phon e Number [facility] [address] [place] [address] [facility] (ABNORMAL) CBC with Differential (08/15/2017 5:56 AM HEALTHCARE PROJECT MANAGER) [facility] Method Time Signature Hemoglobin 12.4 11.6 - 08/15/2017 [facility] ER 15.0 g/dL 6:18 AM [facility] Hematocrit 36.9 35.5 - 08/15/2017 [facility] ER 44.9 % 6:18 AM [facility] Erythrocytes 4.20 3.92 - 08/15/2017 [facility] ER 5.13 6:18 AM [facility] [employer] x10(12)/L [facility] MCV 87.9 78.2 - 08/15/2017 [facility] ER 97.9 fL 6:18 AM [facility] RBC Distrib Width 13.4 12.2 - 08/15/2017 [facility] ER 16.1 % 6:18 AM [facility] Platelet Count 159 157 - 371 08/15/2017 [facility] ER x10(9)/L 6:18 AM [facility] Leukocytes 17.1 (H) 3.4 - 9.6 08/15/2017 [facility] ER x10(9)/L 6:18 AM [facility] Neutrophils 15.33 (H) 1.56 - 08/15/2017 [facility] ER 6.45 6:18 AM [facility] HEALTH x10(9)/L [facility] Lymphocytes 0.92 (L) 0.95 - 08/15/2017 [facility] ER 3.07 6:18 AM HEALTHCARE PROJECT MANAGER HEALTH x10(9)/L [facility] Monocytes 0.78 0.26 - 08/15/2017 [facility] ER 0.81 6:18 AM HEALTHCARE PROJECT MANAGER HEALTH x10(9)/L [facility] Eosinophils 0.00 (L) 0.03 - 08/15/2017 [facility] ER 0.48 6:18 AM [facility] HEALTH x10(9)/L [facility] [place] [facility] Basophils 0.03 0.01 - 08/15/2017 [facility] ER 0.08 6:18 AM [facility] HEALTH x10(9)/L [facility] [place] [facility] Specimen Anatomical Collection Method Collection Time Receive d Time (Source) Location / / Volume Laterality Blood (Blood, 08/15/2017 5:56 AM 08/15/20 17 6:14 Venous) HEALTHCARE PROJECT MANAGER AM HEALTHCARE PROJECT MANAGER Alvin Mathur D.O. LAB BLOOD ADD-ON Performing Organization Address City/State/ZIP Code Phon e Number [facility] [address] [place] [address] [facility] [place] Fluoro Less Than 1 Hour (08/14/2017 8:00 PM HEALTHCARE PROJECT MANAGER) Specimen (Source) Anatomical Location Collection Method / Collectio n Time Received Time / Laterality Volume Narrative [id number] - 08/14/2017 8:20 PM HEALTHCARE PROJECT MANAGER This exam does not require a physician interpretation. Please check notes for clinical details. Alvin Mathur D.O. IMG FLUOROSCOPY PROCEDURES Performing Organization Address City/State/ZIP Code Phon e Number [id number] NA Pathology Services (08/14/2017 7:18 PM HEALTHCARE PROJECT MANAGER) Component Value Ref Test Analysis Performed At [facility] Range Method Time Signature PATHOLOGY Patient Name: DAMIAN TOLENTINO [employer] MR#: [id number] STEVE Submitting Physician: ALVIN MATHUR DO [id number] Specimen #[id number] Performing Lab: ??[facility] [place] ? [address] [place] [id number] Source: Gallbladder and stones Clinical History/Pre-Op Cholecystitis [...] ? ?The mucosal wall measures 0.3 cm. ??Marketing Traffic Coordinator sections are submitted in cassette A1. KG/ed ?? Diagnosis Gallbladder, cholecystectomy: ACUTE NECROTIZING CHOLECYSTITIS. Electronically Signed By SANTY GUERIN MD - 08/16/2017 ed/08/16/2017 Specimen (Source) Anatomical Collection Method Collection Time Re ceived Time Location / / Volume Laterality Tissue 08/14/2017 7:18 PM (Gallbladder) HEALTHCARE PROJECT MANAGER Alvin Mathur D.O. LAB SURG PATH ORDERABLES Performing Organization Address City/State/ZIP Code Phon e Number [facility] [address] [address] documented in this encounter Visit Diagnoses Diagnosis Cholecystitis - Primary Cholecystitis Cholecystitis documented in this encounter Admitting Diagnoses Diagnosis Cholecystitis documented in this encounter Administered Medications Inactive Administered Medications - up to 3 most recent administrations Medication Order MAR Action Action Date Dose Rate Site acetaminophen tablet 1,000 mg Given 08/15/2017 6:00 PM HEALTHCARE PROJECT MANAGER 1,000 mg (for_TYLENOL) 1,000 mg, oral, Every 6 hours PRN, mild pain or score 1-3 of 10, Starting on Sun08/15/17 at 0123 Given 08/15/2017 12:34 PM HEALTHCARE PROJECT MANAGER 1,[address] tablet 81 mg Given 08/15/2017 8:12 AM HEALTHCARE PROJECT MANAGER 81 mg 81 mg, oral, Daily, First dose on Sun08/15/17 at 0900, Swallow whole. Do NOT crush, chew, or split tablet. calcium carbonate-vitamin D3 1,250 mg (500 Given 08/15 8:12 AM HEALTHCARE PROJECT MANAGER 1 tablet mg calcium)-200 unit per tablet 1 tablet 1 tablet, oral, Daily with breakfast, First dose on Sun08/15/17 at 0800, calcium carbonate/vitamin D 600 mg/400 units was interchanged for calcium carbonate/vitamin D3 (Same frequency) cholecalciferol tablet 2,000 Units Given 08/15/2017 8:12 AM HEALTHCARE PROJECT MANAGER 2,000 Units (for_VITAMIN D3) 2,000 Units, oral, Daily, First dose on Sun08/15/17 at 0900 heparin (porcine) Given 08/15/2017 5:17 AM HEALTHCARE PROJECT MANAGER 5,000 Units Left Upper Abdomen injection 5,000 Units 5,000 Units, subcutaneous, 3 times daily, First dose on Sun08/15/17 at 0530 HYDROmorphone injection 1 mg (for_DILAUD ID) Given 08/14/2017 4:07 PM HEALTHCARE PROJECT MANAGER 1 mg 1 mg, intravenous, Every 1 hour PRN, pain, Starting on Sun08/14/17 at 1550 ketorolac injection 15 mg (for_TORADOL) Given 08/15/2017 7:19 AM HEALTHCARE PROJECT MANAGER 15 mg 15 mg, intravenous, Every 6 [...] mL, bupivacaine PF Given 08/14/2017 9:00 PM HEALTHCARE PROJECT MANAGER 13 mL Abdominal Tissue 50 mL 100 mL injection As needed, Starting on Sun08/14/17 at 2100, Intra-Op microfibrillar collagen Given 08/14/2017 8:33 PM 1 application Abdominal Tissue hemostat powder HEALTHCARE PROJECT MANAGER (for_AVITENE FLOUR) As needed, Starting on Sun08/14/17 [...] mg per Given 08/15/2017 8:12 A M HEALTHCARE PROJECT MANAGER 1 tablet tablet 1 tablet (for_SENOKOT-S) 1 [...] injection 3 mL Given 08/15/2017 8:12 AM HEALTHCARE PROJECT MANAGER 3 mL 3 mL, intravenous, As needed, [...] Recently Administered Medications Times are shown in HEALTHCARE PROJECT MANAGER. Scheduled Medication Order 08/13/2017 08/14/2017 08/15/2017 aspirin [...] 1900 (Given - Provider: Kwan Whitley APRN, BAKER PIE, D.N.P.) 400 mg, intravenous, at 200 mL/hr, [...] 192 (Given - Provider: Kwan Whitley APRN, CHRISTOPHE, [...] (for_TORADOL) 0719 (Given - Provider: George Rico RMary) 15 [...]
--- OUTSIDE RECORDS SUMMARY | 2022-07-10 12:25 | XMS_ITS | Encounter Summary ---
:1955 Author Organization [facility] Address [address] [place] [address] Care Team Providers Name Role Phone Unavailable Primary Care Provider Unavailable Reason for Visit Reason Comments Cholelithiasis consult Appointment Request (Routine) - Closed Specialty Diagnoses / Procedures Referred By Contact Refer red To Contact Referral ID Status Reason Start Date Expiration Date Visits Requ ested Visits Authorized [id number] Closed 08/14/2017 02/10/2018 1 1 Encounter Details Date Type Department Care Team Description 08/14/2017 Comprehensive Visit Department of [facility] General Surgery in [place] (Primary Dx) [place], [address] [place] [address] [place] [address] [place] [phone] Social History Tobacco Use Types Packs/Day Years [...] How often do you attend catholic or mandaen More than 4 time s [...] Comments Blood Pressure 157/74 08/14/2017 1:47 PM PRODUCT DESIGN SPECIALIST Pulse 84 08/14/2017 1:47 PM PRODUCT DESIGN SPECIALIST Temperature 37.3 ??C (99.1 ??F) 08/14/2017 1:42 PM PRODUCT DESIGN SPECIALIST Respiratory Rate - - Oxygen Saturation [...] 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 PAST OBSTETRICAL HISTORY: 0, para 0. Last [...] any significant cardiopulmonary risk factors. Job ID: [id number] UCT DESIGN SPECIALIST documented in this encounter Plan of Treatment Not on filedocumented as of this encounter Visit Diagnoses Diagnosis Cholecystitis - Primary documented in this encounter
--- OUTSIDE RECORDS SUMMARY | 2022-07-10 12:25 | XMS_ITS | Encounter Summary ---
:1955 Author Organization [facility] Address [address] [place] [address] Care Team Providers Name Role Phone Unavailable Primary Care Provider Unavailable Reason for Referral Outpatient (Routine) - Closed Specialty Diagnoses / Procedures Referred By Contact Refer red To Contact Emergency Medicine Diagnoses Colic Biliary Augie Berry M.D. [facility] [address] [place] [phone] Referral ID Status Reason Start Date Expiration Date Visits Requ ested Visits Authorized [id number] Closed 08/14/2017 02/10/2018 1 1 INUOUS DRYOUT OPERATOR HELPER Reason for Visit Reason Comments Shoulder Pain Auth/Cert Specialty Diagnoses / Procedures Referred By Contact Refer red To Contact Diagnoses Calculus of bile duct without cholangitis or cholecystitis with obstruction Calculus of bile duct without cholangitis or cholecystitis with obstruction Procedures WA CHOLECYSTECTOMY W CHOLANGIOGR Gallbladder removal Referral ID Status Reason Start Date Expiration Date Visits Requ ested Visits Authorized [id number] 1 1 Encounter Details Date Type Department Care Team Description 08/13/2017 - Emergency [place] [facility] Augie Berry, Colic Biliary (Primary 08/14/2017 Department M.Kristina Dx) [address] [place] [address] [phone] Social History Tobacco Use Types Packs/Day [...] How often do you attend spiritism or buddhism More than 4 time s [...] Comments Blood Pressure 136/66 08/14/2017 1:45 AM CONTINUOUS DRYOUT OPERATOR HELPER Pulse 91 08/14/2017 2:00 AM CONTINUOUS DRYOUT OPERATOR HELPER Temperature 36.5 ??C (97.7 ??F) 08/13/2017 11:44 PM CONTINUOUS DRYOUT OPERATOR HELPER Respiratory Rate 16 08/14/2017 1:00 AM CONTINUOUS DRYOUT OPERATOR HELPER Oxygen Saturation 98% 08/14/2017 2:00 AM CONTINUOUS DRYOUT OPERATOR HELPER Inhaled Oxygen Concentration - - Weight 97.8 kg (215 lb 9.8 oz) 08/13/2017 11:43 PM CONTINUOUS DRYOUT OPERATOR HELPER Height 157.5 cm (5' 2) 08/13/2017 11:43 PM CONTINUOUS DRYOUT OPERATOR HELPER Body Mass Index 39.44 08/13/2017 11:43 PM CONTINUOUS DRYOUT OPERATOR HELPER documented in this encounter Discharge Instructions Discharge InstructionsAugie Berry M.D. - 08/14/2017 1:59 AM CST [place], low fat diet. Return for gallbladder ultrasound in AM today. INUOUS DRYOUT OPERATOR HELPER AttachmentsThe following attachments cannot be sent through Care Everywhere. Cholelithiasis (Urdu)documented in this encounter Medications at Time of [...] D3) 2,000 mouth daily. Unit capsule omega 5-[id number]-[id number]-fish oil Take 1 capsule by 0 10/1910/03/2021 [...] finding relief tonight. Lora Skinner R.N. 08/13/17 [id number] INUOUS DRYOUT OPERATOR HELPER documented in this encounter Plan of Treatment Scheduled Referrals Name Type Priority Associated Diagnoses Order S chedule Post ED visit Outpatient Referral Routine Colic Biliary Expect ed: 08/14/2017 (Approximate), Expires: 2019 documented as of this encounter Procedures Procedure Name Priority Date/Time Associated Comments Diagnosis CT CHEST ANGIOGRAM RAD - Semiurgent 08/14/2017 1:25 Re sults for WITH IV CONTRAST (Fast; most ED AM CONTINUOUS DRYOUT OPERATOR HELPER this proc edure patients; some are in the inpatients) results section. ECG Routine 08/14/2017 12:16 Results for AM CONTINUOUS DRYOUT OPERATOR HELPER this procedure are in the results section. HEPATIC FUNCTION STAT 08/14/2017 12:05 Results for PANEL, S AM CONTINUOUS DRYOUT OPERATOR HELPER this procedure are in the results section. NT-PRO B-TYPE STAT 08/14/2017 12:05 Results fo r NATRIURETIC PEPTIDE AM CONTINUOUS DRYOUT OPERATOR HELPER this pro cedure (BNP), S are in the results section. ACTIVATED PARTIAL STAT 08/14/2017 12:05 Result s for THROMBOPLASTIN TIME AM CONTINUOUS DRYOUT OPERATOR HELPER this pro cedure (APTT), P are in the results section. PROTHROMBIN TIME STAT 08/14/2017 12:05 Results for (PT), P AM CONTINUOUS DRYOUT OPERATOR HELPER this procedure are in the results section. D-DIMER, P STAT 08/14/2017 12:05 Results for AM CONTINUOUS DRYOUT OPERATOR HELPER this procedure are in the results section. TROPONIN T, 5TH GEN, STAT 08/14/2017 12:05 Res ults for P AM CONTINUOUS DRYOUT OPERATOR HELPER this procedure are in the results section. LIPASE, S/P STAT 08/14/2017 12:05 Results for AM CONTINUOUS DRYOUT OPERATOR HELPER this procedure are in the results section. AMYLASE, TOT, S STAT 08/14/2017 12:05 Results for AM CONTINUOUS DRYOUT OPERATOR HELPER this procedure are in the results section. BASIC METABOLIC STAT 08/14/2017 12:05 Results for PANEL, S/P AM CONTINUOUS DRYOUT OPERATOR HELPER this procedure are in the results section. CBC WITH STAT 08/14/2017 12:04 Results for DIFFERENTIAL, B AM CONTINUOUS DRYOUT OPERATOR HELPER this procedu re are in the results section. IRIS MICROSCOPIC, U STAT 08/14/2017 12:02 Resu lts for AM CONTINUOUS DRYOUT OPERATOR HELPER this procedure are in the results section. URINALYSIS WITH STAT 08/14/2017 12:02 Results for MICROSCOPIC IF AM CONTINUOUS DRYOUT OPERATOR HELPER this procedur e INDICATED, U are in the results section. documented in this encounter Results CT Chest Angiogram with IV Contrast (08/14/2017 1:25 AM CONTINUOUS DRYOUT OPERATOR HELPER) Anatomical Region Laterality Modality Chest N/A Computed Tomography Specimen (Source) Anatomical Collection Method Collection Time Re ceived Time Location / / Volume Laterality 08/14/2017 8:03 AM CONTINUOUS DRYOUT OPERATOR HELPER Impressions 08/14/2017 8:15 AM CONTINUOUS DRYOUT OPERATOR HELPER IMPRESSION: 1. ??Somewhat limited evaluation due to [...] performed in 2010. Narrative 08/14/2017 8:15 AM CONTINUOUS DRYOUT OPERATOR HELPER EXAM: CT CHEST ANGIOGRAM WITH IV CONTRAST [...] at 18-24 months vRad: ??Findings concordant with jeromyi darrel Carter report. Procedure Note Hao Barillas M.D. [...] PROCEDURES ECG 12 Lead (08/14/2017 12:16 AM CONTINUOUS DRYOUT OPERATOR HELPER) Patholo gist Method Time Signature Ventricular 65 BPM MUSE Rate ECG/Min WA Interval 150 ms MUSE QRSD Interval 70 ms MUSE QT Interval 394 ms MUSE QTC Interval 409 ms MUSE P [place] 55 degrees MUSE R [place] 74 degrees MUSE T Wave [place] 60 degrees MUSE Clinical Normal sinus rhythm MUSE Diagnosis Left atrial enlargement Otherwise normal ECG No previous ECGs available Specimen Anatomical Collection Method Collection Time Receive d Time (Source) Location / / Volume Laterality 08/14/2017 12:16 08/14/2017 5:14 AM CONTINUOUS DRYOUT OPERATOR HELPER AM CONTINUOUS DRYOUT OPERATOR HELPER Narrative This result has an attachment that is no t available. Augie Berry M.D. ECG ORDERABLES Performing Organization Address City/State/ZIP Code Phon e Number MUSE MUSE NA APTT (Activated Partial Thromboplastin Time) (08/14/2017 12:05 AM CONTINUOUS DRYOUT OPERATOR HELPER) P athologist Signature APTT, P 33.7 23.7 - 36.1 08/14/2017 [facility] sec 12:34 AM CONTINUOUS DRYOUT OPERATOR HELPER [facility] [place] [facility] Specimen Anatomical Collection Method Collection Time Receive d Time (Source) Location / / Volume Laterality Blood (Blood, 08/14/2017 12:05 08/14/2017 Venous) AM CONTINUOUS DRYOUT OPERATOR HELPER 12:15 AM CONTINUOUS DRYOUT OPERATOR HELPER Augie Berry M.D. LAB BLOOD ADD-ON Performing Organization Address City/State/ZIP Code Phon e Number [facility] [place] [address] [place] [facility] PT (Prothrombin Time) with INR (08/14/2017 12:05 AM CONTINUOUS DRYOUT OPERATOR HELPER) athologist Signature Prothrombin 9.4 8.8 - 11.9 08/14/2017 [facility] Time, P sec 12:33 AM [facility] INR 0.9 0.9 - 1.2 08/14/2017 [facility] 12:33 AM [facility] Comment: Standard intensity warfarin therapeutic range: 2.0 to 3.0 High intensity warfarin therapeutic rang e: 2.5 to 3.5 Specimen Anatomical Collection Method Collection Time Receive d Time (Source) Location / / Volume Laterality Blood (Blood, 08/14/2017 12:05 08/14/2017 Venous) AM CONTINUOUS DRYOUT OPERATOR HELPER 12:15 AM CONTINUOUS DRYOUT OPERATOR HELPER Augie Berry M.D. LAB BLOOD ADD-ON Performing Organization Address City/State/ZIP Code Phon e Number [facility] Jennifer [place] [address] [place] [facility] (ABNORMAL) NT-Pro B-Type Natriuretic Peptide (BNP) (08/14/2017 12:05 AM CONTINUOUS DRYOUT OPERATOR HELPER) athologist Signature NT-Pro BNP 185 (H) <=183 pg/mL 08/14/2017 [facility] 12:46 AM [facility] Comment: NT-proBNP values less than 300 [...] supplements. ??If the result does not ma [facility] clinical observations, repeat testing after patient refrains fr om the use of supplements for at least 12 hours. Specimen Anatomical Collection Method Collection Time Receive d Time (Source) Location / / Volume Laterality Blood (Blood, 08/14/2017 12:05 08/14/2017 Venous) AM CONTINUOUS DRYOUT OPERATOR HELPER 12:15 AM CONTINUOUS DRYOUT OPERATOR HELPER Augie Berry M.D. LAB BLOOD ADD-ON Performing Organization Address City/State/ZIP Code Phon e Number [facility] [address] [place] [address] [place] [facility] (ABNORMAL) D-Dimer (08/14/2017 12:05 AM CONTINUOUS DRYOUT OPERATOR HELPER) P athologist Signature D-Dimer, P 1.76 (H) <0.50 08/14/2017 [facility] mcg/mL FEU 12:36 AM CONTINUOUS DRYOUT OPERATOR HELPER [facility] Comment: ----ADDITIONAL INFORMATION---- Results of this [...] Blood (Blood, 08/14/2017 12:05 08/14/2017 Venous) AM CONTINUOUS DRYOUT OPERATOR HELPER 12:15 AM CONTINUOUS DRYOUT OPERATOR HELPER Augie Berry M.D. LAB BLOOD ADD-ON Performing Organization Address City/State/ZIP Code Phon e Number [facility] [place] [address] [place] [facility] Troponin T (08/14/2017 12:05 AM CONTINUOUS DRYOUT OPERATOR HELPER) P athologist Signature Troponin T, S <0.01 <0.01 ng/mL 08/14/2017 [facility] 12:39 AM CONTINUOUS DRYOUT OPERATOR HELPER [facility] Comment: Biotin has been identified by the megan pat as a potential interfering substance. ??Higher concentr ations of biotin may be found in multivitamins, hair/nail supple ments, and workout supplements. ??If the result does not ma [facility] clinical observations, repeat testing after patient refrains fr om the use of supplements for at least 12 hours. Specimen Anatomical Collection Method Collection Time Receive d Time (Source) Location / / Volume Laterality Blood (Blood, 08/14/2017 12:05 08/14/2017 Venous) AM CONTINUOUS DRYOUT OPERATOR HELPER 12:15 AM CONTINUOUS DRYOUT OPERATOR HELPER Augie Berry M.D. LAB BLOOD ADD-ON Performing Organization Address City/State/ZIP Code Phon e Number [facility] [address] [place] [phone] [place] [facility] Hepatic Function Panel (08/14/2017 12:05 AM CONTINUOUS DRYOUT OPERATOR HELPER) [facility] Method Time Signature Bilirubin, Total, S 0.4 <=1.2 08/14/2017 [facility] mg/dL 12:43 AM [facility] Bilirubin, Direct, S <0.2 0.0 - 0.3 08/14/2017 [facility] mg/dL 12:46 AM [facility] Aspartate 27 8 - 43 08/14/2017 [facility] Aminotransferase U/L 12:43 AM [facility] [employer] (AST), [facility] Alanine 34 7 - 45 08/14/2017 [facility] Aminotransferase U/L 12:43 AM [facility] [employer] (ALT), S [facility] Alkaline 110 50 - 130 08/14/2017 [facility] Phosphatase, S U/L 12:43 AM [facility] Albumin, S 4.4 3.5 - 5.0 08/14/2017 [facility] g/dL 12:43 AM [facility] Protein, Total, S 7.6 6.3 - 7.9 08/14/2017 [facility] g/dL 12:43 AM [facility] Specimen Anatomical Collection Method Collection Time Receive d Time (Source) Location / / Volume Laterality Blood (Blood, 08/14/2017 12:05 08/14/2017 Venous) AM CONTINUOUS DRYOUT OPERATOR HELPER 12:13 AM CONTINUOUS DRYOUT OPERATOR HELPER Augie Berry M.D. LAB BLOOD ADD-ON Performing Organization Address City/State/ZIP Code Phon e Number [facility] [place] [address] [place] [facility] (ABNORMAL) BMP (Basic Metabolic Panel) (08/14/2017 12:05 AM [facility]) athologist Signature Potassium, P 3.6 3.6 - 5.2 08/14/2017 [facility] mmol/L 12:43 AM [facility] Sodium, P 136 135 - 145 08/14/2017 [facility] mmol/L 12:43 AM [facility] Chloride, P 97 (L) 98 - 107 08/14/2017 [facility] mmol/L 12:43 AM [facility] Bicarbonate, P 25 22 - 29 08/14/2017 [facility] mmol/L 12:43 AM [facility] Anion Gap, P 14 7 - 15 08/14/2017 [facility] 12:43 AM [facility] BUN (Blood Urea 14 6 - 21 08/14/2017 [facility] Nitrogen), P mg/dL 12:43 AM [facility] Creatinine 0.64 0.59 - 08/14/2017 [facility] 1.04 mg/dL 12:43 AM [facility] eGFR-Black/Afri >90 >=60 08/14/2017 [facility] can [place] mL/min/BSA 12:43 AM [facility] Comment: ----ADDITIONAL INFORMATION---- Estimated GFR calculated using the 2009 CKD_EPI creatinine equation. eGFR Non-Black/ >90 >=60 mL/min/BSA 08/14/2017 12:43 AM [facility] [place] [facility] Comment: ----ADDITIONAL INFORMATION---- Estimated GFR calculated using the 2009 CKD_EPI creatinine equation. Calcium, Total, P 8.7 (L) 8.9 - 10.1 mg/dL 08/14/2017 1 2:43 AM [facility] Glucose, P 127 70 - 140 mg/dL 08/14/2017 12:43 AM [facility] Specimen Anatomical Collection Method Collection Time Receive d Time (Source) Location / / Volume Laterality Blood (Blood, 08/14/2017 12:05 08/14/2017 Venous) AM CONTINUOUS DRYOUT OPERATOR HELPER 12:13 AM CONTINUOUS DRYOUT OPERATOR HELPER Augie Berry M.D. LAB BLOOD ADD-ON Performing Organization Address City/State/ZIP Code Phon e Number [facility] [place] [address] [place] [facility] Lipase (08/14/2017 12:05 AM CONTINUOUS DRYOUT OPERATOR HELPER) P athologist Signature Lipase, P 48 13 - 60 U/L 08/14/2017 [facility] 12:43 AM [facility] [employer] [facility] Specimen Anatomical Collection Method Collection Time Receive d Time (Source) Location / / Volume Laterality Blood (Blood, 08/14/2017 12:05 08/14/2017 Venous) AM CONTINUOUS DRYOUT OPERATOR HELPER 12:13 AM CONTINUOUS DRYOUT OPERATOR HELPER Augie Berry M.D. LAB BLOOD ADD-ON Performing Organization Address City/State/ZIP Code Phon e Number [facility] [place] [address] [place] [facility] Amylase, Total (08/14/2017 12:05 AM CONTINUOUS DRYOUT OPERATOR HELPER) P athologist Signature Amylase, Total, 72 26 - 102 08/14/2017 [facility] P U/L 12:43 AM [facility] Specimen Anatomical Collection Method Collection Time Receive d Time (Source) Location / / Volume Laterality Blood (Blood, 08/14/2017 12:05 08/14/2017 Venous) AM CONTINUOUS DRYOUT OPERATOR HELPER 12:13 AM CONTINUOUS DRYOUT OPERATOR HELPER Augie Berry M.D. LAB BLOOD ADD-ON Performing Organization Address City/State/ZIP Code Phon e Number [facility] Saulo [facility] [place] [address] [place] [facility] (ABNORMAL) CBC with Differential (08/14/2017 12:04 AM CONTINUOUS DRYOUT OPERATOR HELPER) [facility] gist Method Time Signature Hemoglobin 13.3 11.6 - 08/14/2017 [facility] 15.0 g/dL 12:20 AM [facility] [employer] [facility] Hematocrit 39.1 35.5 - 08/14/2017 [facility] 44.9 % 12:20 AM [facility] [employer] [facility] Erythrocytes 4.43 3.92 - 08/14/2017 [facility] 5.13 12:20 AM CONTINUOUS DRYOUT OPERATOR HELPER HEALTH x10(12)/L [employer] [facility] MCV 88.3 78.2 - 08/14/2017 [facility] 97.9 fL 12:20 AM [facility] RBC Distrib Width 13.4 12.2 - 08/14/2017 [facility] 16.1 % 12:20 AM [facility] Platelet Count 191 157 - 371 08/14/2017 [facility] x10(9)/L 12:20 AM [facility] Leukocytes 10.3 (H) 3.4 - 9.6 08/14/2017 [facility] x10(9)/L 12:20 AM [facility] Neutrophils 7.65 (H) 1.56 - 08/14/2017 [facility] 6.45 12:20 AM [facility] x10(9)/L [facility] Lymphocytes 1.98 0.95 - 08/14/2017 [facility] 3.07 12:20 AM [facility] x10(9)/L [facility] Monocytes 0.50 0.26 - 08/14/2017 [facility] 0.81 12:20 AM [facility] [employer]0(9)/L [facility] Eosinophils 0.16 0.03 - 08/14/2017 [facility] 0.48 12:20 AM [facility] x10(9)/L [facility] Basophils 0.03 0.01 - 08/14/2017 [facility] 0.08 12:20 AM [facility] x10(9)/L [facility] Specimen Anatomical Collection Method Collection Time Receive d Time (Source) Location / / Volume Laterality Blood (Blood, 08/14/2017 12:04 08/14/2017 Venous) AM CONTINUOUS DRYOUT OPERATOR HELPER 12:13 AM [facility] Augie Berry M.D. LAB BLOOD ADD-ON Performing Organization Address City/State/ZIP Code Phon e Number [facility] [address] [place] [address] [place] [facility] Iris Microscopic, U (08/14/2017 12:02 AM CONTINUOUS DRYOUT OPERATOR HELPER) P athologist Signature White Blood 4-10 /hpf 08/14/2017 [facility] Cells 12:43 AM [facility] Comment: ----REFERENCE VALUE---- Males: 0-3 Females: 0-10 Unknown: 0-10 Red Blood Cells Occ-2 0 - 2 /hpf 08/14/2017 12:43 AM [facility] Squamous Epithelial Occ-3 /hpf 08/14/2017 12:43 AM [facility] Specimen Anatomical Collection Method Collection Time Receive d Time (Source) Location / / Volume Laterality Urine 08/14/2017 12:02 08/14/2017 AM CONTINUOUS DRYOUT OPERATOR HELPER 12:12 AM CONTINUOUS DRYOUT OPERATOR HELPER Augie Berry M.D. LAB URINE ORDERABLES Performing Organization Address City/State/ZIP Code Phon e Number [facility] [address] [place] [address] [place] [facility] (ABNORMAL) Urinalysis with Microscopic if Indicated Urine, Clean Catch (08/14/2017 12:02 AM CONTINUOUS DRYOUT OPERATOR HELPER) athologist Signature Source Midstream 08/14/2017 [facility] 12:43 AM [facility] Clarity Clear Clear 08/14/2017 [facility] 12:43 AM [facility] Color Yellow 08/14/2017 [facility] 12:43 AM [facility] Comment: ----REFERENCE VALUE---- Colorless Yellow Odalys Blood Negative Negative 08/14/2017 12:43 AM [facility] Nitrite Negative Negative 08/14/2017 12:43 AM [facility] Leukocyte Esterase Small (A) Negative 08/14/2017 12:43 AM [facility] Protein, U Negative mg/dL 08/14/2017 12:43 AM [facility] Comment: ----REFERENCE VALUE---- Negative Trace Glucose Negative Negative mg/dL 08/14/2017 12:43 AM [facility] [place] [facility] Ketone Negative Negative mg/dL 08/14/2017 12:43 AM [facility] [place] [facility] Bilirubin Negative Negative 08/14/2017 12:43 AM [facility] [place] [facility] pH 7.0 5.0 - 8.0 08/14/2017 12:[address] [facility] Specific [place] 1.014 1.001 - 1.035 08/14/2017 12:43 AM [facility] Urobilinogen 0.2 0.2 - 1.0 08/14/2017 12:43 AM [facility] CONTINUOUS DRYOUT OPERATOR HELPER SYSTEM- [place] [facility] Specimen Anatomical Collection Method Collection Time Receive d Time (Source) Location / / Volume Laterality Urine (Urine, 08/14/2017 12:02 08/14/2017 Clean Catch) AM CONTINUOUS DRYOUT OPERATOR HELPER 12:12 AM CONTINUOUS DRYOUT OPERATOR HELPER Augie Berry M.D. LAB URINE ORDERABLES Performing Organization Address City/State/ZIP Code Phon e Number [facility] [address] [place] [address] [place] [facility] documented in this encounter Visit Diagnoses Diagnosis Colic Biliary - Primary documented in this encounter Administered Medications Inactive Administered Medications - up to 3 most recent administrations Medication Order MAR Action Action Date Dose Rate Site HYDROmorphone injection 0.5 mg Given 08/14/2017 12:32 AM CONTINUOUS DRYOUT OPERATOR HELPER 0.5 mg (for_DILAUDID) 0.5 mg, intravenous, Once, On Sun08/14/17 at 0032, For 1 dose HYDROmorphone injection 0.5 mg (for_DILA UDID) Given 08/14/2017 1:57 AM CONTINUOUS DRYOUT OPERATOR HELPER 0.5 mg 0.5 mg, intravenous, Once, On Sun08/14/17 at 0156, For 1 dose iohexol 350 mg iodine/mL solution 125 mL Given 08/14/2017 1:03 A M CONTINUOUS DRYOUT OPERATOR HELPER 125 mL (for_OMNIPAQUE) 125 mL, intravenous, Once in imaging, contrast, Starting on Sun08/14/17 at 0058, For 1 dose ketorolac injection 30 mg (for_TORADOL) Given 08/14/2017 12:14 AM CONTINUOUS DRYOUT OPERATOR HELPER 30 mg 30 mg, intravenous, Once, On Sun08/14/17 at 0012, For 1 dose, Adult IV push rate: Over 15 seconds. Peds IV push rate: Over 1 minute. 60 mg dose only for IM, not recommended for IV., Drug Monitoring Program: Pharmacist to adjust medication order based on comorbities and indication. sodium chloride 0.9 % injection 10 mL Given 08/14/2017 1:41 AM CONTINUOUS DRYOUT OPERATOR HELPER 10 mL 10 mL, intravenous, As needed, line care, Starting on Sun08/14/17 at 0058 sodium chloride 0.9 % injection 50 mL Given 08/14/2017 1:00 AM CONTINUOUS DRYOUT OPERATOR HELPER 50 mL 50 mL, intravenous, Once, On Sun08/14/17 at 0100, For 1 dose documented in this encounter Active and Recently Administered Medications Times are shown in CONTINUOUS DRYOUT OPERATOR HELPER. Scheduled Medication Order 08/12/2017 08/13/2017 08/14/2017 HYDROmorphone [...] mL 0141 (Given - Provider: [place](R)(CT), RQuinten(R)) 10 mL, intravenous, As needed, line care, Starting on Sun at 0058 documented in this encounter
--- OUTSIDE RECORDS SUMMARY | 2022-07-10 12:25 | XMS_ITS | Encounter Summary ---
:1955 Author Organization [facility] Address [address] [place] [address] Care Team Providers Name Role Phone Unavailable Primary Care Provider Unavailable Reason for Referral Outpatient (Routine) - Closed Specialty Diagnoses / Procedures Referred By Contact Refer red To Contact General Surgery Diagnoses Cholecystitis Alvin Mathur D.O. [facility] [address] [place] [address] Referral ID Status Reason Start Date Expiration Date Visits Requ ested Visits Authorized [id number] Closed 08/15/2017 02/11/2018 1 1 ANCE KEEPER Reason for Visit Auth/Cert Specialty Diagnoses / Procedures Referred By Contact Refer red To Contact Diagnoses Calculus of bile duct without cholangitis or cholecystitis with obstruction Calculus of bile duct without cholangitis or cholecystitis with obstruction Procedures UT CHOLECYSTECTOMY W CHOLANGIOGR Gallbladder removal Referral ID Status Reason Start Date Expiration Date Visits Requ ested Visits Authorized [id number] 1 1 Encounter Details Date Type Department Care Team Description 08/14/2017 - Hospital Encounter [facility], Cholecyst itis 08/15/2017 [facility] [place] Kristina Moulton (Primary Dx) [facility], [address] [place] [address] [address] Floor [address] [place] [phone] Social History Tobacco Use Types Packs/Day Years [...] How often do you attend anglican or catholic More than 4 time s [...] Comments Blood Pressure 128/56 08/15/2017 5:03 PM ORDNANCE KEEPER Pulse 79 08/15/2017 5:03 PM ORDNANCE KEEPER Temperature 36.5 ??C (97.7 ??F) 08/15/2017 5:03 PM ORDNANCE KEEPER Respiratory Rate 16 08/15/2017 5:03 PM ORDNANCE KEEPER Oxygen Saturation 97% 08/15/2017 5:03 PM ORDNANCE KEEPER Inhaled Oxygen Concentration - - Weight 98 kg (216 lb 0.8 oz) 08/15/2017 4:51 AM ORDNANCE KEEPER Height 157.5 cm (5' 2) 08/14/2017 4:33 PM ORDNANCE KEEPER Body Mass Index 39.52 08/14/2017 4:33 PM ORDNANCE KEEPER documented in this encounter Discharge Summaries Alvin [...] Case IDs Date Procedure Surgeon Location Status [id number] 08/14/17 LAPAROSCOPIC CHOLECYSTECTOMY WITH attempted CHOLANGIOGRAM Alvin Mathur D.O. [facility] OR Comp DISCHARGE DISPOSITION Home or [...] tablet Commonly known as: Allergy Immunotherapy omega 9-ato-ujs-fish oil 600 mg-216 mg- 324 mg-1,200 mg [...] THIS ADMISSION None CONDITION AT DISCHARGE good ANCE KEEPER documented in this encounter Discharge Instructions AttachmentsThe following attachments cannot be sent through Care Everywhere.Care of Your Surgical Drainage Tube (Tamazight)documented in this encounter Medications at Time of [...] D3) 2,000 mouth daily. Unit capsule omega 7-eyd-otm-fish oil Take 1 capsule by 0 10/1910/03/2021 [...] own drain for the next several days. ANCE KEEPER Nila Farooq M.D. - 08/15/2017 8:19 AM CST Anesthesia Post-Op Visit Patient: Damian Ashford Jeremiahmonica Anesthesia Post-Op Visit Postoperative day: 1 Follow-up type: inpatient Cardiovascular status: hemodynamic (HR & BP) acceptable Respiratory status: patent airway with spontaneous effort Oxygen requirements: room air Level of consciousness: awake Pain score: pain adequately controlled and /or at baseline Post Op nausea/vomiting: none ANCE KEEPER documented in this encounter Nursing Notes Monika [...] and demonstrated proper emptying of TAMICA drain ANCE KEEPER George Rico R.N. - 08/15/2017 2:15 PM [...] to discharge later today once Doctor rounds ANCE KEEPER Rupinder Muro RMary - 08/15/2017 4:21 AM [...] pain control and used call light appropriately. ANCE KEEPER Senia Manrique R.N. - 08/14/2017 4:36 PM CST Goals: Patient will have adequate pain control throughout shift Identify possible barriers to meeting goals/advancing plan of care: Acute illness Stability of the patient: Moderately Unstable - Medium risk of patient condition declining or worsening End of Shift Summary:Patient has had adequate pain control throughout shift ANCE KEEPER documented in this encounter OR Notes Op Note - Alvin Mathur D.O. - 08/14/2017 7:13 PM CST FULL OP NOTE Procedure(s): LAPAROSCOPIC CHOLECYSTECTOMY WITH attempted CHOLANGIOGRAM Surgeon(s) and Role: * Alvin Mathur D.O. - Primary Senior Genetic Counselor: Susan Bear L.P.N. Anesthesia Type: General Pre-Operative [...] in log * Alvin Mathur D.O. TPR ANCE KEEPER Brief Op Note - Alvin Mathur D.O. [...] implants in log * Alvin Mathur D.O. ANCE KEEPER documented in this encounter Plan of Treatment Scheduled Referrals Name Type Priority Associated Diagnoses Order S [facility] General Surgery Outpatient Referral Routine Cholecystitis Expe cted: Post Op (clinic) 08/22/2017 (Approximate), Expires: 08/15/2020 documented as of this encounter Procedures Procedure Name Priority Date/Time Associated Comments Diagnosis HEPATIC FUNCTION Routine 08/15/2017 5:56 Results for PANEL, S AM ORDNANCE KEEPER this procedure are in the results section. CBC WITH Routine 08/15/2017 5:56 Results for DIFFERENTIAL, B AM ORDNANCE KEEPER this procedu re are in the results section. INCENTIVE SPIROMETRY Routine 08/15/2017 1:23 - RT/RN AM ORDNANCE KEEPER INCENTIVE SPIROMETRY Routine 08/15/2017 1:23 - RT/RN AM ORDNANCE KEEPER INCENTIVE SPIROMETRY Routine 08/15/2017 1:23 - RT/RN AM ORDNANCE KEEPER INCENTIVE SPIROMETRY Routine 08/15/2017 1:23 - RT/RN AM ORDNANCE KEEPER INCENTIVE SPIROMETRY Routine 08/15/2017 1:23 - RT/RN AM ORDNANCE KEEPER INCENTIVE SPIROMETRY Routine 08/15/2017 1:23 - RT/RN AM ORDNANCE KEEPER INCENTIVE SPIROMETRY Routine 08/15/2017 1:23 - RT/RN AM ORDNANCE KEEPER INCENTIVE SPIROMETRY Routine 08/15/2017 1:23 - RT/RN AM ORDNANCE KEEPER FL FLUORO LESS THAN 1 RAD - Routine 08/14/2017 8:00 Re sults for HOUR (most inpatients PM ORDNANCE KEEPER this proced ure and all are in the outpatients) results section. PATHOLOGY SERVICES Routine 08/14/2017 7:18 Cholecystitis Resul ts for PM ORDNANCE KEEPER this procedure are in the results section. LAPAROSCOPIC 08/14/2017 6:25 Cholecystitis CHOLECYSTECTOMY WITH PM ORDNANCE KEEPER CHOLANGIOGRAM documented in this encounter Results (ABNORMAL) Hepatic Function Panel (08/15/2017 5:56 AM ORDNANCE KEEPER) [facility] Method Time Signature Bilirubin, Total, S 0.8 <=1.2 08/15/2017 [facility] mg/dL 6:53 AM [facility] Bilirubin, Direct, S 0.2 0.0 - 0.3 08/15/2017 [facility] mg/dL 6:53 AM [facility] Aspartate 76 (H) 8 - 43 08/15/2017 [facility] Aminotransferase U/L 6:53 AM [facility] Alanine 81 (H) 7 - 45 08/15/2017 [facility] Aminotransferase U/L 6:53 AM [facility] Alkaline 75 50 - 130 08/15/2017 [facility] Phosphatase, S U/L 6:53 AM [facility] Albumin, S 3.5 3.5 - 5.0 08/15/2017 [facility] g/dL 6:53 AM [facility] Protein, Total, S 6.2 (L) 6.3 - 7.9 08/15/2017 [facility] g/dL 6:53 AM [facility] Specimen Anatomical Collection Method Collection Time Receive d Time (Source) Location / / Volume Laterality Blood (Blood, 08/15/2017 5:56 AM 08/15/20 17 6:14 Venous) ORDNANCE KEEPER AM ORDNANCE KEEPER Alvin Mathur D.O. LAB BLOOD ADD-ON Performing Organization Address City/State/ZIP Code Phon e Number [facility] [address] [place] [address] [place] [facility] (ABNORMAL) CBC with Differential (08/15/2017 5:56 AM [facility]) [facility] Method Time Signature Hemoglobin 12.4 11.6 - 08/15/2017 [facility] 15.0 g/dL 6:18 AM [facility] Hematocrit 36.9 35.5 - 08/15/2017 [facility] 44.9 % 6:18 AM [facility] [place] [facility] Erythrocytes 4.20 3.92 - 08/15/2017 [facility] 5.13 6:18 AM [facility] HEALTH x10(12)/L SYSTEM- [place] [facility] MCV 87.9 78.2 - 08/15/2017 [facility] 97.9 fL 6:[address] [facility] [place] [facility] RBC Distrib Width 13.4 12.2 - 08/15/2017 [facility] 16.1 % 6:18 AM [facility] Platelet Count 159 157 - 371 08/15/2017 [facility] x10(9)/L 6:18 AM [facility] Leukocytes 17.1 (H) 3.4 - 9.6 08/15/2017 [facility] x10(9)/L 6:18 AM [facility] Neutrophils 15.33 (H) 1.56 - 08/15/2017 [facility] 6.45 6:18 AM [facility] Purchasing Platform x10(9)/L SYSTEM [place] [facility] Lymphocytes 0.92 (L) 0.95 - 08/15/2017 [facility] 3.07 6:18 AM [facility] HEALTH x10(9)/L SYSTEM- [place] [facility] Monocytes 0.78 0.26 - 08/15/2017 [facility] 0.81 6:18 AM [facility] x10(9)/L SYSTEM [place] [facility] Eosinophils 0.00 (L) 0.03 - 08/15/2017 [facility] 0.48 6:18 AM [facility] P[employer]asing Platform x10(9)/L SYSTEM- [place] [facility] Basophils 0.03 0.01 - 08/15/2017 [facility] 0.08 6:18 AM [facility] x10(9)/L SYSTEM [place] [facility] Specimen Anatomical Collection Method Collection Time Receive d Time (Source) Location / / Volume Laterality Blood (Blood, 08/15/2017 5:56 AM 08/15/20 17 6:14 Venous) ORDNANCE KEEPER AM ORDNANCE KEEPER Alvin Mathur D.O. LAB BLOOD ADD-ON Performing Organization Address City/State/ZIP Code Phon e Number [facility] [address] [place] [address] [place] [facility] [place] Fluoro Less Than 1 Hour (08/14/2017 8:00 PM ORDNANCE KEEPER) Specimen (Source) Anatomical Location Collection Method / Collectio n Time Received Time / Laterality Volume Narrative [id number] - 08/14/2017 8:20 PM ORDNANCE KEEPER This exam does not require a physician interpretation. Please check notes for clinical details. Alvin Mathur D.O. IMG FLUOROSCOPY PROCEDURES Performing Organization Address [facility] Code Phon e Number [id number] NA Pathology Services (08/14/2017 7:18 PM ORDNANCE KEEPER) Component Value Ref Test Analysis Performed At [facility] Range Method Time Signature PATHOLOGY Patient Name: DAMIAN TOLENTINO [facility] MR#: [id number] [facility] Submitting Physician: ALVIN MATHUR DO [id number] Specimen #[id number] Performing Lab: ??[facility] ? [address] [place] [id number] Source: Gallbladder and stones Clinical History/Pre-Op Cholecystitis [...] ? ?The mucosal wall measures 0.3 cm. ??Finished Goods Planner sections are submitted in cassette A1. KG/ed ?? Diagnosis Gallbladder, cholecystectomy: ACUTE NECROTIZING CHOLECYSTITIS. Electronically Signed By SANTY GUERIN MD - 08/16/2017 ed/08/16/2017 Specimen (Source) Anatomical Collection Method Collection Time Re ceived Time Location / / Volume Laterality Tissue 08/14/2017 7:18 PM (Gallbladder) ORDNANCE KEEPER Alvin Mathur D.O. LAB SURG PATH ORDERABLES Performing Organization Address [facility] Phon e Number [address] [address] documented in this encounter Visit Diagnoses Diagnosis Cholecystitis - Primary Cholecystitis documented in this encounter Admitting Diagnoses Diagnosis Cholecystitis documented in this encounter Administered Medications Inactive Administered Medications - up to 3 most recent administrations Medication Order MAR Action Action Date Dose Rate Site acetaminophen tablet 1,000 mg Given 08/15/2017 6:00 PM ORDNANCE KEEPER 1,000 mg (for_TYLENOL) 1,000 mg, oral, Every 6 hours PRN, mild pain or score 1-3 of 10, Starting on Sun08/15/17 at 0123 Given 08/15/2017 12:34 PM ORDNANCE KEEPER 1,[address] tablet 81 mg Given 08/15/2017 8:12 AM ORDNANCE KEEPER 81 mg 81 mg, oral, Daily, First dose on Sun08/15/17 at 0900, Swallow whole. Do NOT crush, chew, or split tablet. calcium carbonate-vitamin D3 1,250 mg (500 Given 08/15 8:12 AM ORDNANCE KEEPER 1 tablet mg calcium)-200 unit per tablet 1 tablet 1 tablet, oral, Daily with breakfast, First dose on Sun08/15/17 at 0800, calcium carbonate/vitamin D 600 mg/400 units was interchanged for calcium carbonate/vitamin D3 (Same frequency) cholecalciferol tablet 2,000 Units Given 08/15/2017 8:12 AM ORDNANCE KEEPER 2,000 Units (for_VITAMIN D3) 2,000 Units, oral, [...] surgical heparin (porcine) Given 08/14/2017 5:48 PM ORDNANCE KEEPER 5,000 Units Left Lower Abdomen injection 5,000 Units 5,000 Units, subcutaneous, Once, On Sun08/14/17 at 1745, For 1 dose, Intra-Op, Administer prior to induction of anesthesia. heparin (porcine) Given 08/15/2017 5:17 AM ORDNANCE KEEPER 5,000 Units Left Upper Abdomen injection 5,000 Units 5,000 Units, subcutaneous, 3 times daily, First dose on Sun08/15/17 at 0530 HYDROmorphone injection 1 mg (for_DILAUD ID) Given 08/14/2017 4:07 PM ORDNANCE KEEPER 1 mg 1 mg, intravenous, Every 1 hour PRN, pain, Starting on Sun08/14/17 at 1550 ketorolac injection 15 mg (for_TORADOL) Given 08/15/2017 7:19 AM ORDNANCE KEEPER 15 mg 15 mg, intravenous, Every 6 [...] lactated ringers New Bag 08/14/2017 4:12 PM ORDNANCE KEEPER 75 mL/hr 75 mL/hr 75 mL/hr, intravenous, Continuous, Starting on Sun08/14/17 at 1600, Pre-Op metoprolol tablet 12.5 mg (for_LOPRESSOR ) Given 08/14/2017 4:06 PM ORDNANCE KEEPER 12.5 mg 12.5 mg, oral, Once as [...] NaCl (iso-osm) New Bag 08/15/2017 2:47 PM ORDNANCE KEEPER 500 mg 200 mL/hr IVPB 500 mg (for_FLAGYL) 500 mg, intravenous, at 200 mL/hr, Administer over 30 Minutes, Every 8 hours, First dose on Sun08/15/17 at 0700, For 2 doses, Indications: Prophylaxis, surgical New Bag 08/15/2017 8:12 AM ORDNANCE KEEPER 500 mg 200 mL/hr NaCl 0.9% infusion [...] mg per Given 08/15/2017 8:12 A M ORDNANCE KEEPER 1 tablet tablet 1 tablet (for_SENOKOT-S) 1 tablet, oral, 2 times daily, First dose on Sun08/15/17 at 0900, for constipation sodium chloride 0.9 % injection 10 mL Given 08/14/2017 4:08 PM ORDNANCE KEEPER 10 mL 10 mL, intravenous, Every 8 [...] injection 3 mL Given 08/15/2017 8:12 AM ORDNANCE KEEPER 3 mL 3 mL, intravenous, As needed, [...] Recently Administered Medications Times are shown in ORDNANCE KEEPER. Scheduled Medication Order 08/13/2017 08/14/2017 08/15/2017 aspirin [...] mg per tablet 1 tablet (for_SE NOKOT-S) 08 (Given - Provider: George Rico R.N.) 1 [...] R.N.)1612 (New Bag - Provider: Senia A Montgomery, R.N.) 75 mL/hr, intravenous, Continuous, Starting on [...] pain or score 4-6 of 10, Starting 12/27/17 at 0123, Take with food or milk if GI disturbances occur with use. ketorolac injection 15 mg (for_TORADOL) 718 (Given - Provider: George Rico RNaomiNNaomi) 15 [...]
--- OUTSIDE RECORDS SUMMARY | 2022-07-10 12:25 | XMS_ITS | Encounter Summary ---
:1955 Author Organization [facility] Address [address] [place] [address] Care Team Providers Name Role Phone Unavailable Primary Care Provider Unavailable Reason for Visit Reason Comments Post-op drain removal post lap mona 08-14-17 Outpatient (Routine) - Closed Specialty Diagnoses / Procedures Referred By Contact Refer red To Contact General Surgery Diagnoses Follow Up Examination Postoperative Visit Augie Feldman [facility] [place] [facility] D.ONaomi [address] [place] [address] Referral ID Status Reason Start Date Expiration Date Visits Requ ested Visits Authorized [id number] Closed 08/16/2017 02/12/2018 1 1 Encounter Details Date Type Department Care Team Description 08/17/2017 Office Visit Department of General Amarilis Feldman DNaomiONaomi [address] [place] [address] Cholecystitis (Primary Dx); Surgery in [place] Beasley Paul, M.D. Follow Up Examination [facility] [address] [place] [phone] Social History Tobacco Use Types Packs/Day Years [...] How often do you attend confucianist or amish More than 4 time s [...] Comments Blood Pressure 149/71 08/17/2017 1:13 PM INFIRMARY ATTENDANT Pulse 77 08/17/2017 1:13 PM INFIRMARY ATTENDANT Temperature 37.1 ??C (98.8 ??F) 08/17/2017 1:07 PM INFIRMARY ATTENDANT Respiratory Rate - - Oxygen Saturation - [...] Role: * Augie Feldman D.O. - Primary Gold Buyer: Susan Bear L.P.N. Anesthesia Type: General Pre-Operative [...] will follow-up with us in 1 week. RMARY ATTENDANT documented in this encounter Plan of Treatment Not on filedocumented as of this encounter Visit Diagnoses Diagnosis Cholecystitis - Primary Follow Up Examination Postoperative Visi t documented in this encounter
--- OUTSIDE RECORDS SUMMARY | 2022-07-10 12:25 | XMS_ITS | Encounter Summary ---
:1955 Author Organization [facility] Address [address] [place] [address] Care Team Providers Name Role Phone Unavailable Primary Care Provider Unavailable Encounter Details Date Type Department Care Team Description 11/25/2015 Hospital Encounter [facility] Annemarie Basurto M.D. [address] [place], [place] [phone] (Wo rk) Social History [...] How often do you attend mandaen or uatsdin More than 4 time s [...] daily. mg(1,250mg) -125 unit per tablet omega 6-qxz-xpf-fish oil Take 1 capsule by 0 10/1910/03/2021 [...] ESQUIVEL MD On: 11/25/2015 12:40 PM Source: [facility] POWERCHART Document Id: [id number] Duran Esquivel M.D. - 11/25/2015 10:31 AM CDT [id number] Patient presents today with a recent onset [...] ESQUIVEL MD On: 12/05/2015 06:25 PM Source: [facility] MHSDOLBEYNONRADSYS Document Id: [id number] documented in this encounter Miscellaneous Notes Miscellaneous - Sabra Cespedes [facility] - 11/25/2015 10:54 AM CDT Adult Data Systems Manager Intake/History Adult Data Systems Manager Intake/History Entered On: 11/25/2015 10:55 CDT Performed On: 11/25/2015 10:54 CDT by SABRA CESPEDES Intake Chief Complaint : floaters and flashes in Left eye for 2-3 days Height : 156 cm(Converted to: 5 ft 1 inch(es), 61 inch(es)) SABRA CESPEDES - 11/25/2015 10:54 CDT General Info Information Given By : Patient Languages : French Is Patient Female and 13-50 no hysterectomy [...] SABRA CESPEDES - 11/25/2015 10:54 CDT Source: [facility] POWERCHART Document Id: [id number] CDT!23 documented in this encounter Plan of Treatment Not on filedocumented as of this encounter Visit Diagnoses Not on filedocumented in this encounter
--- OUTSIDE RECORDS SUMMARY | 2022-07-10 12:25 | XMS_ITS | Encounter Summary ---
:1955 Author Organization [facility] Address [address] [place] [address] Care Team Providers Name Role Phone Unavailable Primary Care Provider Unavailable Reason for Visit Auth/Cert Specialty Diagnoses / Procedures Referred By Contact Refer red To Contact Diagnoses Calculus of bile duct without cholangitis or cholecystitis with obstruction Calculus of bile duct without cholangitis or cholecystitis with obstruction Procedures [place] CHOLECYSTECTOMY W CHOLANGIOGR Gallbladder removal Referral ID Status Reason Start Date Expiration Date Visits Requ ested Visits Authorized [id number] 1 1 Encounter Details Date Type Department Care Team Description 08/14/2017 Anesthesia Event [facility] MAIN OR Kwan Whitley APRN, BACK FEEDER [employer] [address] [place] [address] 701 MILLERNila Barreto M.D. [address] [place] [address] [place] [phone] Anesthesia Record Procedure Summary Procedure Name Responsible Anesthesia Start Anesthesia Stop Anesthesiologist Time Time LAPAROSCOPIC Kwan Whitley APRN, 08/14/17 1846 2129 CHOLECYSTECTOMY WITH BACK FEEDER [employer] attempted CHOLANGIOGRAM Events Date Time Event Comment [...] h andoff to the receiving staff during [facility] we 1. Identified the patient 2. Ident [...] Ju ne A, R.N. Center; 08/15/17; 1748 COTTON BAG SEWER, BACK FEEDER [employer] ETT Placement Date: 08/14/171909 by 08/14/172110 b [...] 1418 by dermabond; Yahaira Chen, RNaomiNNaomi May r-Vnyrca-Hujwnjqy FABRIC 2X3.75 (x4); nd, Scheduli ng 05/10/21 (Removed by Automated B [facility] Job background completion utility); 1418 (Removed by [...] How often do you attend taoism or jew More than 4 time s [...] Summary Date: 08/14/17 Room / Location: OR [address] [place] [address] 1409 / [facility] OR Anesthesia Start: 1845 Anesthesia Stop: 2129 [...] Post Op nausea/vomiting: none Hydration status: euvolemic /CVN CV TSC SYSTEM OPERATOR Anesthesia Procedure Notes - Kwan Whitley APRN, CRNA, D.N.P. - 08/14/2017 7:09 PM CSTAssociated Order(s): ANESTHESIA INTUBATION Airway Patient location during procedure: OR Performed by: Kwan Wihtley Authorized by: Kwan Whitley Pre procedure details [...] glottic airway. Switchedto CMAC with success x1. /CVN CV TSC SYSTEM OPERATOR Anesthesia Preprocedure Evaluation - Nila Farooq M.D. [...] patient / legal guardian, or through an turf and grounds supervisor; patient evaluated and approved for anesthesia / sedation. The use of blood products not discussed NPO > 8 hours /CVN CV TSC SYSTEM OPERATOR documented in this encounter Miscellaneous Notes Addendum Note - Kwan Whitley APRN, CRNA, D.N.P. - 08/23/2017 10:20 AM CV/CVN CV TSC SYSTEM OPERATOR Addendum created 08/23/17 1020 by Kwan Whitley APRN, CRNA, D.N.P. Anesthesia Intra Meds edited /CVN CV TSC SYSTEM OPERATOR documented in this encounter Plan of Treatment Not on filedocumented as of this encounter Procedures Procedure Name Priority Date/Time Associated Comments Diagnosis LDA ANE ENDOTRACHEAL Routine 08/14/2017 7:09 PM R esults for this AIRWAY CV/CVN CV TSC SYSTEM OPERATOR procedure are i n the results section. documented in this encounter Results LDA ANE ENDOTRACHEAL AIRWAY (08/14/2017 7:09 PM CV/CVN CV TSC SYSTEM OPERATOR) Narrative Kwan Whitley APRN, CRNA, D.N.P. - 08/14/2017 7:09 PM CV/CVN CV TSC SYSTEM OPERATOR Kwan Whitley APRN, CRNA, D.N.P. ? 08/14/2017 [...] to CMAC with success x1. Kwan Whitley COTTON BAG SEWER, BACK FEEDER [employer] ANESTHESIA ORDERABLES documented in this encounter Visit Diagnoses Not on filedocumented in this encounter Administered Medications Inactive Administered Medications - up to 3 most recent administrations Medication Order MAR Action Action Date Dose Rate Site ciprofloxacin in D5W IVPB 400 mg Given 08/14/2017 7:01 PM CV/CVN CV TSC SYSTEM OPERATOR 40 0 mg (for_CIPRO) 400 mg, intravenous, at 200 mL/hr, Administer over 60 Minutes, Once, On Sun08/14/17 at 1745, For 1 dose, Intra-Op, Preoperatively within 2 hours prior to surgical incision. premix bag, Drug Monitoring Program: Pharmacist to adjust medication order based on comorbities and indication., Indications: Prophylaxis, surgical dexamethasone injection (for_DECADRON) Given 08/14/2017 6:49 PM CV/CVN CV TSC SYSTEM OPERATOR 4 mg As needed, Starting on Sun08/14/17 at 1849, Anesthesia Intra-op fentaNYL injection (for_SUBLIMAZE) Given 08/14/2017 6:54 PM CV/CVN CV TSC SYSTEM OPERATOR 100 mcg intravenous, As needed, severe pain or score 7-10 of 10, Starting on Sun08/14/17 at 1854, Anesthesia Intra-op HYDROmorphone injection (for_DILAUDID) Given 08/14/2017 7:19 PM CV/CVN CV TSC SYSTEM OPERATOR 1 mg As needed, moderate pain or score 4-6 of 10, Starting on Sun08/14/17 at 1919, Anesthesia Intra-op lactated ringers New Bag 08/14/2017 9:12 PM CV/CVN CV TSC SYSTEM OPERATOR intravenous, Continuous Infusion: Per Instructions PRN, Starting on Sun08/14/17 at 1846, Anesthesia Intra-op New Bag 08/14/2017 6:46 PM CV/CVN CV TSC SYSTEM OPERATOR lidocaine (PF) (cardiac) injection Given 08/14/2017 6:54 PM CV/CVN CV TSC SYSTEM OPERATOR 10 mg intravenous, As needed, Starting on Sun08/14/17 at 1854, Anesthesia Intra-op metroNIDAZOLE in NaCl (iso-osm) IVPB 500 mg Given 08/14/2017 7:24 PM CV/CVN CV TSC SYSTEM OPERATOR 500 mg (for_FLAGYL) 500 mg, intravenous, at 200 mL/hr, Administer over 30 Minutes, Once, On Sun08/14/17 at 1745, For 1 dose, Intra-Op, Preoperatively within 1 hour prior to surgical incision., Indications: Prophylaxis, surgical midazolam (PF) injection (for_VERSED) Given 08/14/2017 6:46 PM CV/CVN CV TSC SYSTEM OPERATOR 2 mg intravenous, As needed, Starting on Sun08/14/17 at 1846, Anesthesia Intra-op ondansetron (PF) injection (for_ZOFRAN) Given 08/14/2017 8:45 PM CV/CVN CV TSC SYSTEM OPERATOR 4 mg intravenous, As needed, nausea, vomiting, Starting on Sun08/14/17 at 2045, Anesthesia Intra-op propofol injection (for_DIPRIVAN) Given 08/14/2017 6:54 PM CV/CVN CV TSC SYSTEM OPERATOR 200 mg intravenous, As needed, Starting on Sun08/14/17 at 1854, Anesthesia Intra-op rocuronium injection (for_ZEMURON) Given 08/14/2017 8:04 PM CV/CVN CV TSC SYSTEM OPERATOR 10 mg intravenous, As needed, Starting on Sun08/14/17 at 1858, Anesthesia Intra-op Given 08/14/2017 6:58 PM CV/CVN CV TSC SYSTEM OPERATOR 50 mg succinylcholine-0.9% NaCl (PF) injection Given 08/14/2017 6:54 P M CV/CVN CV TSC SYSTEM OPERATOR 140 mg (for_ANECTINE) intravenous, As needed, Starting on Sun08/14/17 at 1854, Anesthesia Intra-op documented in this encounter
--- OUTSIDE RECORDS SUMMARY | 2022-07-10 12:25 | XMS_ITS | Encounter Summary ---
:1955 Author Organization [facility] Address [address] [place] [address] Care Team Providers Name Role Phone Unavailable Primary Care Provider Unavailable Encounter Details Date Type Department Care Team Description 08/16/2017 Documentation Department of General Lucretia Gerardo, Surgery in [address] [phone] Social History Tobacco Use Types Packs/Day Years [...] How often do you attend scientologist or holiness More than 4 time s [...] Post op order placed and appointment scheduled. MOSTAT REPAIRER documented in this encounter Plan of Treatment Not on filedocumented as of this encounter Visit Diagnoses Not on filedocumented in this encounter
--- OUTSIDE RECORDS SUMMARY | 2022-07-10 12:25 | XMS_ITS | Encounter Summary ---
:1955 Author Organization [facility] Address [address] [place] [address] Care Team Providers Name Role Phone Unavailable Primary Care Provider Unavailable Encounter Details Date Type Department Care Team Description 01/29/2013 Hospital Encounter HX NO MAPPING Yulissa Finn APRN, C.N.P. [address] [place], [place] [phone] (Wo rk) Social History [...] How often do you attend yarsanism or latter-day More than 4 time s [...]
--- OUTSIDE RECORDS SUMMARY | 2022-07-10 12:25 | XMS_ITS | Encounter Summary ---
:1955 Author Organization [facility] Address [address] [place] [address] Care Team Providers Name Role Phone Unavailable Primary Care Provider Unavailable Reason for Referral Outpatient (Routine) - Closed Specialty Diagnoses / Procedures Referred By Contact Refer red To Contact General Surgery Diagnoses Follow Up Examination Postoperative Visit Augie Feldman [facility] KRISTINE fried D.O. 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 C Encounter Details Date Type Department Care Team Description 08/16/2017 Orders Only Department of General Lucretia Gerardo F ollow Up Examination [place] Post[place] Visit [place] [address] [address] (Primary Dx) [address] [place] [phone] Social History Tobacco Use Types Packs/Day Years [...] How often do you attend scientologist or buddhism More than 4 time s [...] Name Type Priority Associated Diagnoses Order S [facility] General Surgery Outpatient Referral Routine Follow Up Examinat ion Expected: Post Op (clinic) Postoperative Visit 07/21, Expires: 08/16/2020 documented as of this encounter Visit Diagnoses Diagnosis Follow Up Examination Postoperative Visi t - Primary documented in this encounter
--- OUTSIDE RECORDS SUMMARY | 2022-07-10 12:25 | XMS_ITS | Encounter Summary ---
:1955 Author Organization [facility] Address [address] [place] [address] Care Team Providers Name Role Phone Unavailable Primary Care Provider Unavailable Encounter Details Date Type Department Care Team Description 12/15/2016 [facility] [address] [place] [phone] (Wo rk) Social History Tobacco Use [...] How often do you attend taoist or temple More than 4 time s [...] daily. mg(1,250mg) -125 unit per tablet omega 8-qeh-lzp-fish oil Take 1 capsule by 0 10/1910/03/2021 600 mg-216 mg- 324 mouth daily. mg-1,200 mg capsule,delayed release(DR/EC) documented as of this encounter Miscellaneous Notes Miscellaneous - Conversion, Historical Provider Ser - 12/15/2016 11:59 PM CDT Coding Summary-Paper Based CODING DATE: 12/21/2016 FINAL RW [facility] STATUS: * Discharged to Home [...] CLARKE Date Saved: 12/21/2016 03:02 pm Source: [facility] POWERCHART Document Id: [id number] documented in this encounter Plan of Treatment Not on filedocumented as of this encounter Visit Diagnoses Not on filedocumented in this encounter
--- OUTSIDE RECORDS SUMMARY | 2022-07-10 12:26 | XMS_ITS | Encounter Summary ---
:1955 Author Organization [facility] Address [address] [place] [address] Care Team Providers Name Role Phone Unavailable [...] How often do you attend baptism or methodist More than 4 time s [...] Comments Blood Pressure 128/62 09/03/2012 2:40 PM HULL SORTER Pulse - - Temperature - - Respiratory Rate 20 09/03/2012 2:40 PM HULL SORTER Oxygen Saturation - - Inhaled Oxygen Concentration [...] Carlos Lawton - 09/03/2012 2:33 PM CST [id number] HISTORY OF PRESENT ILLNESS This pleasant 57-year-old [...] LAWTON PA-C On: 09/17/2012 02:53 PM Source: [facility] MHSDOLBEYNONRADSYS Document Id: [id number] SORTER documented in this encounter Miscellaneous Notes Miscellaneous - Carlos Lawton - 09/03/2012 4:30 PM CST Ambulatory Patient Summary [facility] Specialty [address] [address] Visit Information Name: COLLEEN TILLMAN [facility] Number: [id number] Current Date: 09/03/2012 16:30:07 Physicians Attending Provider: CARLOS LAWTON PA-C Primary Care Provider: CHRISSY DE LA CRUZ [facility], ELECTROMECHANICAL EQUIPMENT TESTER Your Medications Here is a list of [...] Carlos Lawton PA-C Your Goals/Additional instructions: Source: [facility] POWERCHART Document Id: [id number] SORTER Miscellaneous - Carlos Lawton - 09/03/2012 4:30 PM CST Ambulatory Depart Summary [place] - Specialty [address] [address] Visit Information Name: COLLEEN TILLMAN [facility] Number: [id number] Visit Date: 09/03/2012 16:30:07 Attending Provider: CARLOS LAWTON PA-C Primary Care Provider: CHRISSY DE LA CRUZ DNP, ELECTROMECHANICAL EQUIPMENT TESTER COLLEEN TILLMAN has been given the following [...] [facility] POWERCHART Document Id: [id number] SORTER Miscellaneous - Tung De Jesus R.N. - 09/03/2012 2:40 PM HULL SORTER Adult Hogshead Stock Clerk Intake/History Adult Hogshead Stock Clerk Intake/History Entered On: 09/03/2012 14:43 HULL SORTER Performed On: 09/03/2012 14:40 HULL SORTER by TUNG DE JESUS window tinter Chief Complaint : Here for follow up of left proximal humerus fracture. She is here to have her range of motion checked. Temperature Core : 36.5C(Converted to: 97.7DegF) Respiratory Rate : 20/min Systolic Blood Pressure : 128mmHg Diastolic Blood Pressure : 62mmHg NIBP Mean : 84mmHg TUNG DE JESUS RN - 09/03/2012 14:40 HULL SORTER General Info Information Given By : Patient Preferred Communication Mode : Verbal Languages : Palestinian TUNG DE JESUS RN - 09/03/2012 14:40 HULL SORTER Subjective Pain Symptoms : No TUNG DE JESUS RN - 09/03/2012 14:40 HULL SORTER Dependent Habits Tobacco Use/Currently Using : No Tobacco Use/Last 12 months : No Exposure to Tobacco Smoke : Care provider denies smoking in home Smoking Status : Never smoker TUNG DE JESUS RN - 09/03/2012 14:40 HULL SORTER Tobacco Use Grid Type : Cigarettes Last Use : never TUNG DE JESUS RN - 09/03/2012 14:40 HULL SORTER Caffeine Use Grid Caffeine Use : None TUNG DE JESUS RN - 09/03/2012 14:40 HULL SORTER Recreational Drug Use Grid Drug Use : None TUNG DE JESUS RN - 09/03/2012 14:40 HULL SORTER Allergy Allergies (Active) Ceftin Estimated Onset Date: Unspecified ; Reactions: hives ; Created By: MADDIE AGOSTO LPN; Reaction Status: Active ; Category: Drug ; Substance: Ceftin ; Type: Allergy ; Updated By: MADDIE AGOSTO LPN; Reviewed Date: 09/03/2012 14:37 HULL SORTER Source: [facility] POWERCHART Document Id: [id number] SORTER documented in this encounter Plan of Treatment Not on filedocumented as of this encounter Visit Diagnoses Not on filedocumented in this encounter
--- OUTSIDE RECORDS SUMMARY | 2022-07-10 12:26 | XMS_ITS | Encounter Summary ---
:1955 Author Organization [facility] Address [address] [place] [address] Care Team Providers Name Role Phone Unavailable Primary Care Provider Unavailable Encounter Details Date Type Department Care Team Description 08/08/2012 Hospital Encounter HX [facility] Chrissy De La Cruz, FABIANA, C.N.P., D. N.P. [address] [place] [address] (Wo rk) Social History Tobacco [...] How often do you attend anglican or buddhism More than 4 time s [...] Comments Blood Pressure 130/69 08/08/2012 8:37 AM TRANSPORTATION DISPATCHER Pulse 88 08/08/2012 8:37 AM TRANSPORTATION DISPATCHER Temperature - - Respiratory Rate 16 08/08/2012 8:37 AM TRANSPORTATION DISPATCHER Oxygen Saturation - - Inhaled Oxygen Concentration - - Weight 91.8 kg (202 lb 6.1 oz) 08/08/2012 8:37 AM TRANSPORTATION DISPATCHER Height 156.5 cm (5' 1.61) 08/08/2012 8:37 AM TRANSPORTATION DISPATCHER Body Mass Index 37.48 08/08/2012 8:37 AM TRANSPORTATION DISPATCHER documented in this encounter Medications at Time [...] Cruz, D.N.P., C.N.P. - 08/08/2012 3:12 PM TRANSPORTATION DISPATCHER Ambulatory Patient Summary [address] [address] Visit Information Name: DAMIAN TILLMAN [facility] Number: [id number] Current Date: 08/08/2012 15:12:03 Physicians [...] Date Time Location Reason Provider 08/09/2012 08:00 [facility] PT/OT humerous FX Melisa Edgardo 08/09/2012 08:30 [facility] Mammo osteopenia 08/15/2012 08:45 [facility] PT/OT left sided facial injury Arabella Caro 09/03/2012 14:30 [facility] Follow up Donavon REED, Cayetano Vela Your Goals/Additional instructions: Source: [facility] POWERCHART Document Id: [id number] SPORTATION DISPATCHER Miscellaneous - Chrissy De La Cruz, D.N.P., C.N.P. - 08/08/2012 3:12 PM TRANSPORTATION DISPATCHER Ambulatory Depart Summary [id number] [place] [address] Visit Information Name: LAYNEDAMIAN Yani MEANS [facility] Number: [id number] Visit Date: 08/08/2012 15:12:03 Attending [...] for Pain / Fever Take with food [facility] Pres[place] (Melaluca vitamins) 1 packet Oral once a day omega-3 polyunsaturated fatty acids (Fish Oil oral capsule) 2 cap(s) Oral once a day aspirin (aspirin 81 mg oral tablet) 81 mg Oral once a day Attention: If you have any medications at home that are not on this list, DO NOT take them until youcontact your provider for clarification. Additional Information: Source: [facility] POWERCHART Document Id: [id number] SPORTATION DISPATCHER Miscellaneous - Chrissy De La Cruz D.N.P., C.N.P. - 08/08/2012 3:06 PM TRANSPORTATION DISPATCHER Results Notification Document Contains Addenda Addendum by MADDIE AGOSTO LPN on 08 August 2012 15:56:52 TRANSPORTATION DISPATCHER Copy of labs sent to patient. From: CHRISSY DE LA CRUZ DNP, FNP To: MADDIE AGOSTO LPN Sent: 08/08/2012 15:06:06 TRANSPORTATION DISPATCHER ! Show up: 08/08/2012 21:06:06 UTC Subject: Results Notification Actions: Note to Nurse Source: [facility] POWERCHART Document Id: [id number] Electronically signed by Conversion, [facility] Trumpet Teacher [id number] at 01/20/2017 3:57 PM CDT Miscellaneous - Chrissy De La Cruz D.N.P., C.N.P. - 08/08/2012 3:04 PM TRANSPORTATION DISPATCHER Results Notification Document Contains Addenda Addendum by MADDIE AGOSTO LPN on 08 August 2012 15:56:36 TRANSPORTATION DISPATCHER Copy mailed to patient. From: CHRISSY DE LA CRUZ DNP, SHINGLE BOLT CUTTER To: MADDIE AGOSTO LPN Sent: 08/08/2012 15:04:47 TRANSPORTATION DISPATCHER ! 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 Ankush done in [place] in 10/29, pap done in 2010 in [place]. hx of left shoulder pain. Check left [...] 37.48kg/m2 DONAVAN ALBA LPN - 08/08/2012 8:37 TRANSPORTATION DISPATCHER Subjective Pain Symptoms : Yes DONAVAN ALBA LPN - 08/08/2012 8:37 TRANSPORTATION DISPATCHER Pain Pain Assessment Grid Pain 1 Location : Shoulder Laterality : Left Intensity : 2 DONAVAN ALBA LPN - 08/08/2012 8:37 TRANSPORTATION DISPATCHER Dependent Habits Tobacco Use/Currently Using : No Exposure to Tobacco Smoke : Care provider denies smoking in home Smoking Status : Never smoker DONAVAN ALBA LPN - 08/08/2012 8:37 TRANSPORTATION DISPATCHER Tobacco Use Grid Last Use : never DONAVAN ALBA LPN - 08/08/2012 8:37 TRANSPORTATION DISPATCHER Alcohol Use : No DONAVAN ALBA LPN - 08/08/2012 8:37 TRANSPORTATION DISPATCHER Caffeine Use Grid Caffeine Use : None DONAVAN ALBA LPN - 08/08/2012 8:37 TRANSPORTATION DISPATCHER Recreational Drug Use Grid Drug Use : None DONAVAN ALBA LPN - 08/08/2012 8:37 TRANSPORTATION DISPATCHER Allergy Allergies (Active) Ceftin Estimated Onset Date: Unspecified ; Reactions: hives ; Created By: MADDIE AGOSTO LPN; Reaction Status: Active ; Category: Drug ; Substance: Ceftin ; Type: Allergy ; Updated By: MADDIE AGOSTO LPN; Reviewed Date: 08/08/2012 8:34 TRANSPORTATION DISPATCHER Source: [facility] POWERCHART Document Id: [id number] SPORTATION DISPATCHER Miscellaneous - Donavan Alba L.P.NNaomi - 08/08/2012 8:36 AM CST Meaningful Use Influenza Exclusion Meaningful Use Influenza Exclusion Entered On: 08/08/2012 8:36 TRANSPORTATION DISPATCHER Performed On: 08/08/2012 8:36 TRANSPORTATION DISPATCHER by ASLESON, DONAVAN J RATTLESNAKE FARMER Influenza Vaccine Exclusion Influenza Vaccine Exclusion : Patient declined DONAVAN ALBA RATTLESNAKE FARMER - 08/08/2012 8:36 TRANSPORTATION DISPATCHER Source: [facility] POWERCHART Document Id: [id number] SPORTATION DISPATCHER documented in this encounter Plan of Treatment Not on filedocumented as of this encounter Procedures Procedure Name Priority Date/Time Associated Comments Diagnosis URINALYSIS, ROUTINE Routine 08/08/2012 9:44 AM Re sults for this TRANSPORTATION DISPATCHER procedure are i n the results section. URINE MICROSCOPIC Routine 08/08/2012 9:44 AM Resu lts for this TRANSPORTATION DISPATCHER procedure are i n the results section. LIPID PANEL, S Routine 08/08/2012 9:41 AM Results for this TRANSPORTATION DISPATCHER procedure are i n the results section. AUTOMATED Routine 08/08/2012 9:41 AM Results f or this DIFFERENTIAL, B TRANSPORTATION DISPATCHER procedure ar e in the results section. LIPOPROTEIN (A), S/P Routine 08/08/2012 9:41 AM R esults for this TRANSPORTATION DISPATCHER procedure are i n the results section. SEDIMENTATION RATE, B Routine 08/08/2012 9:41 AM Results for this TRANSPORTATION DISPATCHER procedure are i n the results section. CBC WITH DIFFERENTIAL, Routine 08/08/2012 9:41 AM Results for this B TRANSPORTATION DISPATCHER procedure are i n the results section. C-REACTIVE PROTEIN Routine 08/08/2012 9:41 AM Res ults for this (CRP), S/P TRANSPORTATION DISPATCHER procedure are i n the results section. THYROID-STIMULATING Routine 08/08/2012 9:41 AM Re sults for this HORMONE-SENSITIVE TRANSPORTATION DISPATCHER procedure are in (S-TSH) the results section. COMPREHENSIVE Routine 08/08/2012 9:41 AM Results for this METABOLIC PANEL, S/P TRANSPORTATION DISPATCHER procedu re are in the results section. documented in this encounter Results Urine Microscopic (08/08/2012 9:44 AM TRANSPORTATION DISPATCHER) [facility] Method Time Signature HXUr WBC 0-2 0 - 2 POWERCHART Red Blood Cell None Seen 0 - 2 POWERCHART Clump, Urine HXUr Bacteria Moderate POWERCHART HXUr Epithelial Many POWERCHART Comment: Squamous. [facility] 08/08/2012 10:09 Comment Specimen not suitable for culture. [facility] 08/08/2012 10:10 POWERCHART Specimen Anatomical Collection Method Collection Time Receive d Time (Source) Location / / Volume Laterality Urine 08/08/2012 9:44 AM 2 9:44 TRANSPORTATION DISPATCHER AM TRANSPORTATION DISPATCHER Chrissy L Patrick JUNG C.N.P., Loan.N.P. LAB URINE PARAM LEVI Performing Organization Address [facility] [address] [facility] Code Phon e Number POWERCHART Urinalysis, Routine (08/08/2012 9:44 AM TRANSPORTATION DISPATCHER) [facility] Method Time Signature HXUr Color Yellow POWERCHART Appearance Slightly POWERCHART Cloudy Glucose Negative POWERCHART HXBILIRUBIN Negative POWERCHART Ketones, QL(U) Negative POWERCHART Specific 1.020 1.000 - POWERCHART [place], POCT, U 1.030 pH, POCT, Urine 7.0 5.0 - 8.0 POWERCHART Protein, Ur, Dip Negative POWERCHART Urobilinogen 0.2 POWERCHART HXNITRITE Negative POWERCHART HXBLOOD Negative POWERCHART Leukocyte Trace POWERCHART Esterase Source Clean Void POWERCHART Urine Specimen (Source) Anatomical Collection Method Collection Time Re ceived Time Location / / Volume Laterality Urine 08/08/2012 9:44 AM TRANSPORTATION DISPATCHER Chrissy L Patrick JUNG C.N.P., D.N.P. LAB URINE PARAM LEVI Performing Organization Address [facility] [address]/[facility] Phon e Number POWERCHART Automated Differential (08/08/2012 9:41 AM TRANSPORTATION DISPATCHER) P athologist Signature Neutro % 61.5 42.0 - POWERCHART 77.0 Lymphocytes % 28.2 23.0 - POWERCHART 44.0 HX Heard % 6.5 2.0 - 18.0 POWERCHART HX [...] Blood 08/08/2012 9:41 AM 201 2 9:41 TRANSPORTATION DISPATCHER AM TRANSPORTATION DISPATCHER Chrissy De La Cruz APRN C.N.P., D.N.P. LAB BLOOD ADD- ON Performing Organization Address City/[facility] [address]/ZIP Code Phon e Number POWERCHART Sedimentation Rate (08/08/2012 9:41 AM TRANSPORTATION DISPATCHER) Analysis Performed At Patho logist Time Signature Sedimentation 29 0 - 30 POWERCHART Rate, B MMHR Specimen (Source) Anatomical Collection Method Collection Time Re ceived Time Location / / Volume Laterality Blood 08/08/2012 9:41 AM TRANSPORTATION DISPATCHER Chrissy De La Cruz APRN C.N.P., D.N.P. LAB BLOOD ADD- ON Performing Organization Address City/[facility] [address]/ZIP Code Phon e Number POWERCHART CBC with Differential (08/08/2012 9:41 AM TRANSPORTATION DISPATCHER) P athologist Signature Leukocytes 5.2 3.4 - 10.5 POWERCHART X109L Erythrocytes 4.68 3.90 - POWERCHART 5.03 [id number] Hemoglobin 13.7 12.0 - POWERCHART 15.5 GDL Hematocrit 41.3 34.9 - POWERCHART 44.5 MCV 88.2 82.0 - POWERCHART 98.0 FL HX RDW 13.5 11.9 - POWERCHART 15.5 Platelet Count 197 150 - 450 POWERCHART X109L HXDifferential? Auto POWERCHART Specimen (Source) Anatomical Collection Method Collection Time Re ceived Time Location / / Volume Laterality Blood 08/08/2012 9:41 AM TRANSPORTATION DISPATCHER Chrissy De La Cruz APRN, C.N.P., D.N.P. LAB BLOOD ADD- ON Performing Organization Address City/[facility] [address]/ZIP Code Phon e Number POWERCHART CRP (C-Reactive Protein) (08/08/2012 9:41 AM TRANSPORTATION DISPATCHER) P athologist Signature C-Reactive 0.48 0.00 - 0.80 POWERCHART Protein (CRP), MGDL S Specimen (Source) Anatomical Collection Method Collection Time Re ceived Time Location / / Volume Laterality Blood 08/08/2012 9:41 AM TRANSPORTATION DISPATCHER Chrissy De La Cruz APRN C.N.P., D.N.P. LAB BLOOD ADD- ON Performing Organization Address City/State/ZIP Code Phon e Number POWERCHART Thyroid-Stimulating Hormone-Sensitive (s-TSH) (08/08/2012 9:41 AM TRANSPORTATION DISPATCHER) athologist Signature TSH 1.83 0.30 - 5.00 POWERCHART (Thyrotropin) MCIUML Specimen (Source) Anatomical Collection Method Collection Time Re ceived Time Location / / Volume Laterality Blood 08/08/2012 9:41 AM TRANSPORTATION DISPATCHER Sunday Sparks APRN.N.P., D.N.P. LAB BLOOD ADD- ON Performing Organization Address City/State/ZIP Code Phon e Number POWERCHART Lipoprotein (a) (08/08/2012 9:41 AM TRANSPORTATION DISPATCHER) athologist Signature Lp(a) 5 <=30 MGDL POWERCHART Cholesterol Comment: Test Performed by: [place] [address] Back Hoe Machine Operator: Bong tapia III, M.D. Specimen (Source) Anatomical Collection Method Collection Time Re ceived Time Location / / Volume Laterality Blood 08/08/2012 9:41 AM TRANSPORTATION DISPATCHER Sunady Sparks APRN.N.P., D.N.P. LAB BLOOD ADD- ON Performing Organization Address City/State/ZIP Code Phon e Number POWERCHART (ABNORMAL) Lipid Panel (08/08/2012 9:41 AM TRANSPORTATION DISPATCHER) athologist Signature Cholesterol, 248 (H) 0 - [...] / Volume Laterality Blood 08/08/2012 9:41 AM TRANSPORTATION DISPATCHER Chrissy De La Cruz APRN C.N.P., D.N.P. LAB BLOOD ADD- ON Performing Organization Address City/State/ZIP Code Phon e Number POWERCHART (ABNORMAL) CMP (Comprehensive Metabolic Panel) (08/08/2012 9:41 AM TRANSPORTATION DISPATCHER) [facility] gist Method Time Signature Alanine 31 [...] POWERCHART MMOLL HXeGFR (MDRD) >60 >=60 POWERCHART [id number] 2 Comment: A GFR of <60 mL/min is indicative of chr onic kidney disease. (MDRD calculation valid on patients 18 - 70 years.) eGFR Black/ >60 >=60 [id number] POWERCHART Bilirubin, Total, S 0.4 0.1 - 1.0 MGDL POWER CHART Total Protein, S 7.6 6.3 - 7.9 GDL POWERCHAR T Glucose 87 70 - 139 MGDL POWERCHART Specimen (Source) Anatomical Collection Method Collection Time Re ceived Time Location / / Volume Laterality Blood 08/08/2012 9:41 AM TRANSPORTATION DISPATCHER Chrissy De La Cruz APRN, C.N.P., D.N.P. LAB BLOOD ADD- ON Performing Organization Address City/State/ZIP Code Phon e Number POWERCHART documented in this encounter Visit Diagnoses Not on filedocumented in this encounter
--- OUTSIDE RECORDS SUMMARY | 2022-07-10 12:26 | XMS_ITS | Encounter Summary ---
:1955 Author Organization [facility] Address [address] [place] [address] Care Team Providers Name Role Phone Unavailable Primary Care Provider Unavailable Encounter Details Date Type Department Care Team Description 08/09/2012 Hospital Encounter HX [facility] Elena Gilman, FABIANA, C.N.P., D. N.P. [address] [phone] (Wo rk) Social History Tobacco Use [...] How often do you attend hoahaoism or scientologist More than 4 time s [...] D.N.P., C.N.P. - 08/09/2012 8:36 AM CST [id number] CHIEF COMPLAINT/REASON FOR VISIT Multiple issues. HISTORY [...] tobacco usage. ALLERGIES Ceftin. CURRENT MEDICATIONS Tylenol xhrk-mai-wkduhyh as directed on package as needed. Aspirin 81 mg by mouth daily. Ibuprofen jqqk-vlc-mniwopz as directed on package as needed. Melaleuca [...] and reactive to light and accommodation. OROPHARYNX: [place] and moist. TMs: Bilateral tympanic membranes are [...] the patient, or at least doing an cerj-sna-hmhjpldEpthefuq extended release 1 tablet by mouth daily. [...] in which she states it was through [facility] in [place]. I did discuss the vaginal dilators with [...] DNP, FNP On: 08/12/2012 12:59 PM Source: [facility] MHSDOLBEYNONRADSYS Document Id: [id number] FINISHER documented in this encounter Miscellaneous Notes Miscellaneous - Ana De La Cruz D.N.P., C.N.P. - 08/09/2012 2:48 PM BODY FINISHER Results Notification Document Contains Addenda Addendum by MADDIE AGOSTO LPN on 12 August 2012 09:38:33 BODY FINISHER Copy of bone density sent to patient. From: ANA DE LA CRUZ DNP, FNP To: MADDIE AGOSTO LPN Sent: 08/09/2012 14:48:54 BODY FINISHER ! Show up: 08/09/2012 20:48:54 [facility] Subject: Results Notification Actions: Note to Nurse Source: [facility] POWERCHART Document Id: [id number] documented in this encounter Plan of Treatment Not on filedocumented as of this encounter Visit Diagnoses Not on filedocumented in this encounter
--- OUTSIDE RECORDS SUMMARY | 2022-07-10 12:26 | XMS_ITS | Encounter Summary ---
:1955 Author Organization [facility] Address [address] [place] [address] Care Team Providers Name Role Phone Unavailable Primary Care Provider Unavailable Encounter Details Date Type Department Care Team Description 01/29/2013 Hospital Encounter HX NO MAPPING Yulissa Finn APRN, C.N.P. [address], [place] [phone] (Wo rk) Social History [...] How often do you attend anabaptist or jewish More than 4 time s [...]
--- OUTSIDE RECORDS SUMMARY | 2022-07-10 12:26 | XMS_ITS | Encounter Summary ---
:1955 Author Organization [facility] Address [address] [place] [address] Care Team Providers Name Role Phone Unavailable [...] How often do you attend worship or caodaism More than 4 time s [...] Comments Blood Pressure 136/78 07/16/2012 3:41 PM BOILER OPERATOR HELPER Pulse 88 07/16/2012 3:41 PM BOILER OPERATOR HELPER Temperature - - Respiratory Rate 16 07/16/2012 3:41 PM BOILER OPERATOR HELPER Oxygen Saturation - - Inhaled Oxygen [...] Carlos Lawton - 07/16/2012 3:36 PM CST [id number] IMPRESSION/REPORT/PLAN Ms. Tillman is a 57-year-old female [...] LAWTON PA-C On: 08/06/2012 02:15 PM Source: [facility] MHSDOLBEYNPATRICIASYS Document Id: [id number] ER OPERATOR HELPER documented in this encounter Miscellaneous Notes Miscellaneous - Carlos Lawton - 07/16/2012 5:06 PM CST Ambulatory Depart Summary [facility] [phone] [place] [address] Visit Information Name: COLLEEN TILLMAN [facility] Number: [id number] Visit Date: 07/16/2012 17:06:53 Attending [...] [facility] POWER[facility] Document Id: [id number] ER OPERATOR HELPER Miscellaneous - Carlos Lawton - 07/16/2012 5:06 PM CST Ambulatory Patient Summary [phone] Visit Information Name: COLLEEN TILLMAN [facility] Number: [id number] Current Date: 07/16/2012 17:06:54 Physicians [...] Date Time Location Reason Provider 07/25/2012 07:45 [facility] PT/OT LEFT proximal humerus Fx, comminuted and mildly displaced. Begin GENTLE PROM for weeks 3-4 out from Fx, then gentle AAROM wks 4- 5, progress from there. Thanks. Edgardo Vincent 08/06/2012 10:15 [facility] Follow up on Lt shoulder Calros Lawton PA-C Your Goals/Additional instructions: Source: [facility] POWERCHART Document Id: [id number] ER OPERATOR HELPER Miscellaneous - Rose Ziegler R.N. - 07/16/2012 3:41 PM CST Adult Numerical Control Lathe Operator Intake/History Adult Numerical Control Lathe Operator Intake/History Entered On: 07/16/2012 15:46 BOILER OPERATOR HELPER Performed On: 07/16/2012 15:41 BOILER OPERATOR HELPER by ROSE ZIEGLER farm mechanic Chief Complaint : f/u lt shoulder fx Temperature Core : 36.6C(Converted to: 97.9DegF) Peripheral Pulse Rate : 88/min Respiratory Rate : 16/min Heart Rhythm : Regular Systolic Blood Pressure : 136mmHg Diastolic Blood Pressure : 78mmHg NIBP Mean : 97mmHg BP Location : Right upper extremity Blood Pressure Cuff Size : Large ROSE ZIEGLER RN - 07/16/2012 15:41 BOILER OPERATOR HELPER General Info Information Given By : Patient Preferred Communication Mode : Verbal Languages : Amharic ROSE ZIEGLER RN - 07/16/2012 15:41 BOILER OPERATOR HELPER Subjective Pain Symptoms : Yes ROSE ZIEGLER RN - 07/16/2012 15:41 BOILER OPERATOR HELPER Pain Pain Assessment Grid Pain 1 Location : Shoulder Laterality : Left Time Pattern : Chronic, Intermittent ROSE ZIEGLER RN - 07/16/2012 15:41 BOILER OPERATOR HELPER Dependent Habits Tobacco Use/Currently Using : No Exposure to Tobacco Smoke : Care provider denies smoking in home Smoking Status : Never smoker ROSE ZIEGLER RN - 07/16/2012 15:41 BOILER OPERATOR HELPER Tobacco Use Grid Last Use : never ROSE ZIEGLER RN - 07/16/2012 15:41 BOILER OPERATOR HELPER Caffeine Use Grid Caffeine Use : None ROSE ZIEGLER RN - 07/16/2012 15:41 BOILER OPERATOR HELPER Recreational Drug Use Grid Drug Use : None ROSE ZIEGLER RN - 07/16/2012 15:41 BOILER OPERATOR HELPER Allergy Allergies (Active) Ceftin Estimated Onset Date: Unspecified ; Reactions: hives ; Created By: MADDIE AGOSTO LPN; Reaction Status: Active ; Category: Drug ; Substance: Ceftin ; Type: Allergy ; Updated By: MADDIE AGOSTO LPN; Reviewed Date: 07/16/2012 15:39 BOILER OPERATOR HELPER Source: [facility] LoveThis Document Id: [id number] ER OPERATOR HELPER documented in this encounter Plan of Treatment Not on filedocumented as of this encounter Visit Diagnoses Not on filedocumented in this encounter
--- OUTSIDE RECORDS SUMMARY | 2022-07-10 12:26 | XMS_ITS | Encounter Summary ---
:1955 Author Organization [facility] Address [address] [place] [address] Care Team Providers Name Role Phone Unavailable Primary Care Provider Unavailable Encounter Details Date Type Department Care Team Description 07/01/2012 Hospital Encounter HX [facility] Trev Borrero III, M.D. [address] [place] [phone] (Wo rk) Social History Tobacco Use [...] How often do you attend scientologist or rastafari More than 4 time s [...] Comments Blood Pressure 114/70 07/01/2012 9:29 AM ELECTRICAL MECHANIC Pulse 80 07/01/2012 9:29 AM ELECTRICAL MECHANIC Temperature - - Respiratory Rate 16 07/01/2012 9:29 AM ELECTRICAL MECHANIC Oxygen Saturation - - Inhaled Oxygen Concentration [...] Peñaloza M.D. - 07/01/2012 9:06 AM CST [id number] CHIEF COMPLAINT/REASON FOR VISIT Suture removal. HISTORY [...] III, MD On: 07/30/2012 08:36 AM Source: [facility] MHSDOLBEYNONRADSYS Document Id: [id number] TRICAL MECHANIC documented in this encounter Miscellaneous Notes Miscellaneous - Paty Albarran, L.P.N. - 07/01/2012 9:36 AM CST Health Assessment Health Assessment Entered On: 07/01/2012 9:37 ELECTRICAL MECHANIC Performed On: 07/01/2012 9:36 ELECTRICAL MECHANIC by PATY ALBARRAN [facility] Health Assessment Complete Health Assessment Complete or Modified : Annual Health Assessment Annual Health Assessment Completed : Yes PATY ALBARRAN FABRICATION INSPECTOR - 07/01/2012 9:36 ELECTRICAL MECHANIC Nutrition Nutrition Risk Factors by History Adult : None PATY ALBARRAN [facility] - 07/01/2012 9:36 ELECTRICAL MECHANIC Functional Current Daily Living Assistance : None PATY ALBARRAN [facility] - 07/01/2012 9:36 ELECTRICAL MECHANIC Dependent Habits Tobacco Use/Currently Using : No Exposure to Tobacco Smoke : Care provider denies smoking in home Smoking Status : Never smoker PATY ALBARRAN [facility] - 07/01/2012 9:36 ELECTRICAL MECHANIC Tobacco Use Grid Last Use : never PATY ALBARRAN [facility] - 07/01/2012 9:36 ELECTRICAL MECHANIC Alcohol Use : No PATY ALBARRAN [facility] - 07/01/2012 9:36 ELECTRICAL MECHANIC Caffeine Use Grid Caffeine Use : None PATY ALBARRAN [facility] - 07/01/2012 9:36 ELECTRICAL MECHANIC Recreational Drug Use Grid Drug Use : None PATY ALBARRAN [facility] - 07/01/2012 9:36 ELECTRICAL MECHANIC Psychosocial Domestic Abuse Concerns : None PATY ALBARRAN [facility] - 07/01/2012 9:36 ELECTRICAL MECHANIC Advance Directive Advanced Directives : Yes PAYT ALBARRAN FABRICATION INSPECTOR - 07/01/2012 9:36 ELECTRICAL MECHANIC Educ Needs Learning Style Preference Adult Grid Patient : None Family : None PATY ALBARRAN FABRICATION INSPECTOR - 07/01/2012 9:36 ELECTRICAL MECHANIC Source: [facility] POWERCHART Document Id: [id number] TRICAL MECHANIC Miscellaneous - Paty Albarran L.P.N. - 07/01/2012 9:29 AM CST Adult Measurer Machine Intake/History Adult Measurer Machine Intake/History Entered On: 07/01/2012 9:33 ELECTRICAL MECHANIC Performed On: 07/01/2012 9:29 ELECTRICAL MECHANIC by PATY ALBARRAN LPN Intake Chief Complaint [...] refused PATY ALBARRAN LPN - 07/01/2012 9:29 ELECTRICAL MECHANIC Subjective Pain Symptoms : No PATY ALBARRAN LPN - 07/01/2012 9:29 ELECTRICAL MECHANIC Dependent Habits Tobacco Use/Currently Using : No Exposure to Tobacco Smoke : Care provider denies smoking in home Smoking Status : Never smoker PATY ALBARRAN LPN - 07/01/2012 9:29 ELECTRICAL MECHANIC Tobacco Use Grid Last Use : never PATY ALBARRAN LPN - 07/01/2012 9:29 ELECTRICAL MECHANIC Alcohol Use : No PATY ALBARRAN LPN - 07/01/2012 9:29 ELECTRICAL MECHANIC Caffeine Use Grid Caffeine Use : None PATY ALBARRAN LPN - 07/01/2012 9:29 ELECTRICAL MECHANIC Recreational Drug Use Grid Drug Use : None PATY ALBARRAN LPN - 07/01/2012 9:29 ELECTRICAL MECHANIC Allergy Allergies (Active) Ceftin Estimated Onset Date: Unspecified ; Reactions: hives ; Created By: MADDIE AGOSTO LPN; Reaction Status: Active ; Category: Drug ; Substance: Ceftin ; Type: Allergy ; Updated By: MADDIE AGOSTO LPN; Reviewed Date: 06/29/2012 10:29 ELECTRICAL MECHANIC Source: [facility] POWERCHART Document Id: [id number] TRICAL MECHANIC documented in this encounter Plan of Treatment Not on filedocumented as of this encounter Visit Diagnoses Not on filedocumented in this encounter
--- OUTSIDE RECORDS SUMMARY | 2022-07-10 12:26 | XMS_ITS | Encounter Summary ---
:1955 Author Organization [facility] Address [address] [place] [address] Care Team Providers Name Role Phone Unavailable [...] How often do you attend confucianist or mandaen More than 4 time s [...] Comments Blood Pressure 116/70 10/08/2012 7:58 AM OIL AND GAS WELL TREATMENT OPERATOR Pulse 80 10/08/2012 7:58 AM OIL AND GAS WELL TREATMENT OPERATOR Temperature - - Respiratory Rate 16 10/08/2012 7:58 AM OIL AND GAS WELL TREATMENT OPERATOR Oxygen Saturation - - Inhaled Oxygen Concentration [...] Carlos Lawton - 10/08/2012 7:52 AM CST [id number] CHIEF COMPLAINT/REASON FOR VISIT Ms. Tillman is [...] stable and solid. Carlos Lawton P.A.-C./carlene DOCID: [id number] Electronically Signed By: CARLOS LAWTON PA-C On: 10/22/2012 02:41 PM Source: [facility] MHSDOLBEYNONRADSYS Document Id: [id number] AND GAS WELL TREATMENT OPERATOR documented in this encounter Miscellaneous Notes Miscellaneous - Carlos Lawton - 10/08/2012 12:13 PM CST Ambulatory Patient Summary [address] [address] Visit Information Name: COLLEEN TILLMAN [facility] Number: [id number] Current Date: 10/08/2012 12:13:57 Physicians Attending Provider: CARLOS LAWTON PA-C Primary Care Provider: CHRISSY DE LA CRUZ DNP, CENTRAL SUPPLY ASSISTANT Your Medications Here is a list of [...] No Appointments found Your Goals/Additional instructions: Source: [facility] POWERCHART Document Id: [id number] AND GAS WELL TREATMENT OPERATOR Miscellaneous - Carlos Lawton - 10/08/2012 12:13 PM CST Ambulatory Depart Summary [address] [address] Visit Information Name: GINOClarita NEWSOMEVOKARYN PIÑAON [facility] Number: [id number] Visit Date: 10/08/2012 12:13:56 Attending Provider: CARLOS LAWTON PA-C Primary Care Provider: CHRISSY DE LA CRUZ DNP, CENTRAL SUPPLY ASSISTANT LAYNECOLLEENUSON has been given the following list [...] your provider for clarification. Additional Information: Source: [facility] POWERCHART Document Id: [id number] AND GAS WELL TREATMENT OPERATOR Miscellaneous - Rose Ziegler R.N. - 10/08/2012 7:58 AM CST Adult Fish Tender Intake/History Adult Fish Tender Intake/History Entered On: 10/08/2012 8:03 OIL AND GAS WELL TREATMENT OPERATOR Performed On: 10/08/2012 7:58 OIL AND GAS WELL TREATMENT OPERATOR by ROSE ZIEGLER section laborer Chief Complaint : f/u lt humerus fx, [...] 98% ROSE ZIEGLER RN - 10/08/2012 7:58 OIL AND GAS WELL TREATMENT OPERATOR General Info Information Given By : Patient Preferred Communication Mode : Verbal Languages : Yakut ROSE ZIEGLER RN - 10/08/2012 7:58 OIL AND GAS WELL TREATMENT OPERATOR Subjective Pain Symptoms : No ROSE ZIEGLER RN - 10/08/2012 7:58 OIL AND GAS WELL TREATMENT OPERATOR Dependent Habits Tobacco Use/Currently Using : No Exposure to Tobacco Smoke : Care provider denies smoking in home Smoking Status : Never smoker ROSE ZIEGLER RN - 10/08/2012 7:58 OIL AND GAS WELL TREATMENT OPERATOR Tobacco Use Grid Type : Cigarettes Last Use : never ROSE ZIEGLER RN - 10/08/2012 7:58 OIL AND GAS WELL TREATMENT OPERATOR Caffeine Use Grid Caffeine Use : None ROSE ZIEGLER RN - 10/08/2012 7:58 OIL AND GAS WELL TREATMENT OPERATOR Recreational Drug Use Grid Drug Use : None ROSE ZIEGLER RN - 10/08/2012 7:58 OIL AND GAS WELL TREATMENT OPERATOR Allergy Allergies (Active) Ceftin Estimated Onset Date: Unspecified ; Reactions: hives ; Created By: MADDIE AGOSTO LPN; Reaction Status: Active ; Category: Drug ; Substance: Ceftin ; Type: Allergy ; Updated By: MADDIE AGOSTO LPN; Reviewed Date: 10/08/2012 7:58 OIL AND GAS WELL TREATMENT OPERATOR Source: [facility] POWERCHART Document Id: [id number] AND GAS WELL TREATMENT OPERATOR documented in this encounter Plan of Treatment Not on filedocumented as of this encounter Visit Diagnoses Not on filedocumented in this encounter
--- OUTSIDE RECORDS SUMMARY | 2022-07-10 12:26 | XMS_ITS | Encounter Summary ---
:1955 Author Organization [facility] Address [address] [place] [address] Care Team Providers Name Role Phone Unavailable [...] How often do you attend episcopal or yarsani More than 4 time s [...]
--- OUTSIDE RECORDS SUMMARY | 2022-07-10 12:26 | XMS_ITS | Encounter Summary ---
:1955 Author Organization [facility] Address [address] [place] [address] Care Team Providers Name Role Phone Unavailable [...] How often do you attend taoism or zoroastrianism More than 4 time s [...] Comments Blood Pressure 130/86 07/05/2012 8:48 AM ENDORSEMENT CLERK Pulse 68 07/05/2012 8:48 AM ENDORSEMENT CLERK Temperature - - Respiratory Rate 16 07/05/2012 8:48 AM ENDORSEMENT CLERK Oxygen Saturation - - Inhaled Oxygen Concentration [...] Carlos Lawton - 07/05/2012 8:29 AM CST [id number] IMPRESSION/REPORT/PLAN Ms. Tillman is a 57-year-old female [...] acceptable with only mild displacement. Carlos Lawton P.A.-C./[facility] Electronically Signed By: CARLOS LAWTON PA-C On: 02/04/2013 08:19 AM Source: [facility] MHSDOLBEYNONRADSYS Document Id: [id number] documented in this encounter Miscellaneous Notes Miscellaneous - Carlos Lawton - 07/05/2012 9:21 AM CST Ambulatory Patient Summary [address] [address] Visit Information Name: COLLEEN TILLMAN [facility] Number: [id number] Current Date: 07/05/2012 09:21:36 [...] Carlos Lawton PA-C Your Goals/Additional instructions: Source: [facility] POWERCHART Document Id: [id number] RSEMENT CLERK Miscellaneous - Carlos Lawton - 07/05/2012 9:21 AM CST Ambulatory Depart Summary [facility] [address] [address] Visit Information Name: COLLEEN TILLMAN [facility] Number: [id number] Visit Date: 07/05/2012 09:21:35 [...] your provider for clarification. Additional Information: Source: [facility] POWERCHART Document Id: [id number] RSEMENT CLERK Miscellaneous - Rose Ziegler R.N. - 07/05/2012 8:48 AM CST Adult At Risk Paraprofessional Intake/History Adult At Risk Paraprofessional Intake/History Entered On: 07/05/2012 8:51 ENDORSEMENT CLERK Performed On: 07/05/2012 8:48 ENDORSEMENT CLERK by ROSE ZIEGLER cook helper Chief Complaint : f/u left humerus fx, feels good Temperature Core : 36.8C(Converted to: 98.2DegF) Peripheral Pulse Rate : 68/min Respiratory Rate : 16/min Heart Rhythm : Regular Systolic Blood Pressure : 130mmHg Diastolic Blood Pressure : 86mmHg NIBP Mean : 101mmHg BP Location : Right upper extremity Blood Pressure Cuff Size : Regular ROSE ZIEGLER RN - 07/05/2012 8:48 ENDORSEMENT CLERK General Info Information Given By : Patient Preferred Communication Mode : Verbal Languages : Kazakh ROSE ZIEGLER RN - 07/05/2012 8:48 ENDORSEMENT CLERK Subjective Pain Symptoms : No ROSE ZIEGLER RN - 07/05/2012 8:48 ENDORSEMENT CLERK Dependent Habits Tobacco Use/Currently Using : No Exposure to Tobacco Smoke : Care provider denies smoking in home Smoking Status : Never smoker ROSE ZIEGLER RN - 07/05/2012 8:48 ENDORSEMENT CLERK Tobacco Use Grid Last Use : never ROSE ZIEGLER RN - 07/05/2012 8:48 ENDORSEMENT CLERK Caffeine Use Grid Caffeine Use : None ROSE ZIEGLER RN - 07/05/2012 8:48 ENDORSEMENT CLERK Recreational Drug Use Grid Drug Use : None ROSE ZIEGLER RN - 07/05/2012 8:48 ENDORSEMENT CLERK Allergy Allergies (Active) Ceftin Estimated Onset Date: Unspecified ; Reactions: hives ; Created By: MADDIE AGOSTO LPN; Reaction Status: Active ; Category: Drug ; Substance: Ceftin ; Type: Allergy ; Updated By: MADDIE AGOSTO LPN; Reviewed Date: 07/05/2012 8:47 ENDORSEMENT CLERK Source: [facility] POWERCHART Document Id: [id number] RSEMENT CLERK documented in this encounter Plan of Treatment Not on filedocumented as of this encounter Visit Diagnoses Not on filedocumented in this encounter
--- OUTSIDE RECORDS SUMMARY | 2022-07-10 12:26 | XMS_ITS | Encounter Summary ---
:1955 Author Organization [facility] Address [address] [place] [address] Care Team Providers Name Role Phone Unavailable [...] How often do you attend protestant or bahai More than 4 time s [...]
--- OUTSIDE RECORDS SUMMARY | 2022-07-10 12:26 | XMS_ITS | Encounter Summary ---
:1955 Author Organization [facility] Address [address] [place] [address] Care Team Providers Name Role Phone Unavailable Primary Care Provider Unavailable Encounter Details Date Type Department Care Team Description 06/28/2012 Hospital Encounter HX NO MAPPING Gilma Gonzales M.D. [address] [place] [address] [phone] (Wo rk) Social History Tobacco [...] How often do you attend faith or pentecostal More than 4 time s [...] Comments Blood Pressure 130/80 06/28/2012 10:37 AM ASSISTANT AUTO CENTER MANAGER Pulse - - Temperature - - [...] Gonzales M.D. - 06/28/2012 10:22 AM CST [id number] IMPRESSION/REPORT/PLAN Proximal humeral fracture with some mild [...] GONZALES MD On: 08/06/2012 03:38 PM Source: [facility] MHSDOLBEYNONRADSYS Document Id: [id number] STANT AUTO CENTER MANAGER documented in this encounter Miscellaneous Notes Miscellaneous - Te Gonzales M.D. - 06/28/2012 12:16 PM CST Ambulatory Patient Summary [address] [address] Visit Information Name: DAMIAN TILLMAN Current Date: [...] REED, Cayetano Vela Your Goals/Additional instructions: Source: [facility] POWERCHART Document Id: [id number] STANT AUTO CENTER MANAGER Miscellaneous - Te Gonzales M.D. - 06/28/2012 12:16 PM CST Ambulatory Depart Summary [address] [address] Visit Information Name: GINOJEROD DAMIAN Visit Date: [...] your provider for clarification. Additional Information: [facility] Document Id: [id number] STANT AUTO CENTER MANAGER Miscellaneous - Te Gonzales M.D. - 06/28/2012 11:33 AM CST Return to Work Status Return to Work Status Entered On: 06/28/2012 11:34 ASSISTANT AUTO CENTER MANAGER Performed On: 06/28/2012 11:33 ASSISTANT AUTO CENTER MANAGER by TE GONZALES MD Return to Work Status Employer : [employer] Date/Time of Injury : 06/27/2012 13:00 ASSISTANT AUTO CENTER MANAGER Work Status Comment : limit to no left handed work TE GONZALES MD - 06/28/2012 11:33 ASSISTANT AUTO CENTER MANAGER Source: [facility] [employer] Document Id: [id number] STANT AUTO CENTER MANAGER Miscellaneous - Rose Ling R.N. - 06/28/2012 10:37 AM CST Adult Client Experience Specialist Intake/History Adult Client Experience Specialist Intake/History Entered On: 06/28/2012 10:40 ASSISTANT AUTO CENTER MANAGER Performed On: 06/28/2012 10:37 ASSISTANT AUTO CENTER MANAGER by ROSE LING prestidigitator Chief Complaint : Pt fell and while getting a glass of water for her mother and tripped over O2 tubing. Pt came in to the clinic and had a xray done on her left shoulder. Humeral head fracture Temperature Core : 36.3C(Converted to: 97.3DegF) (LOW) Systolic Blood Pressure : 130mmHg Diastolic Blood Pressure : 80mmHg NIBP Mean : 97mmHg ROSE ILNG RN - 06/28/2012 10:37 ASSISTANT AUTO CENTER MANAGER General Info Information Given By : Patient Preferred Communication Mode : Verbal Languages : Sinhala ROSE LING RN - 06/28/2012 10:37 ASSISTANT AUTO CENTER MANAGER Subjective Pain Symptoms : No ROSE LING RN - 06/28/2012 10:37 ASSISTANT AUTO CENTER MANAGER FLACC Face FLACC : No particular expression or smile Legs FLACC : Normal position or relaxed Activity FLACC : Lying quietly, normal position, moves easily Cry FLACC : No cry, awake or asleep Consolabillity FLACC : Content, relaxed FLACC Pain Scale Score : 0 ROSE LING RN - 06/28/2012 10:37 ASSISTANT AUTO CENTER MANAGER Dependent Habits Tobacco Use/Currently Using : No Exposure to Tobacco Smoke : Care provider denies smoking in home Smoking Status : Never smoker ROSE LING RN - 06/28/2012 10:37 ASSISTANT AUTO CENTER MANAGER Caffeine Use Grid Caffeine Use : None ROSE LING RN - 06/28/2012 10:37 ASSISTANT AUTO CENTER MANAGER Recreational Drug Use Grid Drug Use : None ROSE LING RN - 06/28/2012 10:37 ASSISTANT AUTO CENTER MANAGER Allergy Allergies (Active) Ceftin Estimated Onset Date: Unspecified ; Reactions: hives ; Created By: MADDIE AGOSTO LPN; Reaction Status: Active ; Category: Drug ; Substance: Ceftin ; Type: Allergy ; Updated By: MDADIE AGOSTO LPN; Reviewed Date: 06/28/2012 10:36 ASSISTANT AUTO CENTER MANAGER Anesth/Transfusion Anesthesia/Transfusions : Prior anesthesia ROSE LING RN - 06/28/2012 10:37 ASSISTANT AUTO CENTER MANAGER ID Screen Drug Resistant Organism : No ROSE LING RN - 06/28/2012 10:37 ASSISTANT AUTO CENTER MANAGER Activity/Exercise Exercise Type : Walking Exercise Frequency : 2-3 times per week Duration : 15-30 minutes ROSE LING RN - 06/28/2012 10:37 ASSISTANT AUTO CENTER MANAGER Diabetes Intake Do You Have Diabetes : No ROSE LING RN - 06/28/2012 10:37 ASSISTANT AUTO CENTER MANAGER Source: [facility] [employer] Document Id: [id number] STANT AUTO CENTER MANAGER documented in this encounter Plan of Treatment Not on filedocumented as of this encounter Visit Diagnoses Not on filedocumented in this encounter
--- OUTSIDE RECORDS SUMMARY | 2022-07-10 12:26 | XMS_ITS | Encounter Summary ---
:1955 Author Organization [facility] Address [address] [place] [address] Care Team Providers Name Role Phone Unavailable [...]
--- OUTSIDE RECORDS SUMMARY | 2022-07-10 12:26 | XMS_ITS | Encounter Summary ---
:1955 Author Organization [facility] Address [address] [place] [address] Care Team Providers Name Role Phone Unavailable Primary Care Provider Unavailable Encounter Details Date Type Department Care Team Description 06/27/2012 Hospital Encounter HX [facility] Trev Borrero III, M.D. [address] [place] [phone] (Wo rk) Social History Tobacco Use [...] How often do you attend mosque or episcopal More than 4 time s [...] Comments Blood Pressure 124/72 06/27/2012 1:11 PM GAME MASTER Pulse 86 06/27/2012 1:11 PM GAME MASTER Temperature - - Respiratory Rate 16 06/27/2012 1:11 PM GAME MASTER Oxygen Saturation - - Inhaled Oxygen Concentration [...] Peñaloza M.D. - 06/27/2012 12:58 PM CST [id number] CHIEF COMPLAINT/REASON FOR VISIT Recheck chin. HISTORY OF PRESENT ILLNESS Ms. Tillman is a 57-year-old white female who fell and split her chin while at work at [employer]. There is quite a large laceration [...] III, MD On: 07/30/2012 08:36 AM Source: [facility] MHSDOLBEYNONRADSYS Document Id: [id number] MASTER documented in this encounter Miscellaneous Notes Miscellaneous - Charlie Peñaloza M.D. - 06/27/2012 3:20 PM CST Ambulatory Depart Summary [address] [address] Visit Information Name: COLLEEN TILLMAN Visit Date: [...] your provider for clarification. Additional Information: Source: [facility] [employer] Document Id: [id number] ENCE Laurencellaneous - Charlie Peñaloza M.D. - 06/27/2012 3:20 PM CST Ambulatory Patient Summary [address] [address] Visit Information Name: COLLEEN TILLMAN Current Date: [...] No Appointments found Your Goals/Additional instructions: Source: [facility] [employer] Document Id: [id number] MASTER Miscellaneous - Maddie Strong L.P.N. - 06/27/2012 1:11 PM CST Adult Section Hand Helper Intake/History Adult Section Hand Helper Intake/History Entered On: 06/27/2012 13:13 GAME MASTER Performed On: 06/27/2012 13:11 GAME MASTER by MADDIE STRONG LPN Intake Chief Complaint [...] Large MADDIE STRONG LPN - 06/27/2012 13:11 GAME MASTER Subjective Pain Symptoms : Yes MADDIE STRONG LPN - 06/27/2012 13:11 GAME MASTER Pain Pain Assessment Grid Pain 1 Location : Shoulder Laterality : Left Intensity : 7 Time Pattern : Acute Onset : Sudden Quality : Aching, Other: spasms Pain Radiation : No Aggravating Factors : None Alleviating Factors : None Associated Symptoms : None Interventions : Cold MADDIE STRONG LPN - 06/27/2012 13:11 GAME MASTER Dependent Habits Tobacco Use/Currently Using : No Tobacco Use/Last 12 months : No Tobacco Use/Advised to Quit : No Exposure to Tobacco Smoke : Care provider denies smoking in home Smoking Status : Never smoker Alcohol Use : No MADDIE STRONG LPN - 06/27/2012 13:11 GAME MASTER Caffeine Use Grid Caffeine Use : None MADDIE STRONG LPN - 06/27/2012 13:11 GAME MASTER Recreational Drug Use Grid Drug Use : None MADDIE STRONG LPN - 06/27/2012 13:11 GAME MASTER Allergy Allergies (Active) Ceftin Estimated Onset Date: Unspecified ; Reactions: hives ; Created By: MADDIE STRONG LPN; Reaction Status: Active ; Category: Drug ; Substance: Ceftin ; Type: Allergy ; Updated By: MADDIE STRONG LPN; Reviewed Date: 06/27/2012 13:10 GAME MASTER [facility] Document Id: [id number] MASTER documented in this encounter Plan of Treatment Not on filedocumented as of this encounter Visit Diagnoses Not on filedocumented in this encounter
--- OUTSIDE RECORDS SUMMARY | 2022-07-10 12:26 | XMS_ITS | Encounter Summary ---
:1955 Author Organization [facility] Address [address] [place] [address] Care Team Providers Name Role Phone Unavailable Primary Care Provider Unavailable Encounter Details Date Type Department Care Team Description 06/29/2012 Hospital Encounter HX [facility] Trev Borrero III, M.D. [address] [place] [phone] (Wo rk) Social History Tobacco Use [...] How often do you attend lutheran or zoroastrianism More than 4 time s [...] Comments Blood Pressure 108/60 06/29/2012 10:24 AM STONE SPREADER OPERATOR Pulse 76 06/29/2012 10:24 AM STONE SPREADER OPERATOR Temperature - - Respiratory Rate 18 06/29/2012 10:24 AM STONE SPREADER OPERATOR Oxygen Saturation - - Inhaled Oxygen [...] Peñaloza M.D. - 06/29/2012 10:05 AM CST [id number] CHIEF COMPLAINT/REASON FOR VISIT Ms. Tillman is [...] III, MD On: 07/12/2012 05:21 PM Source: [facility] MHSDOLBEYNONRADSYS Document Id: [id number] E SPREADER OPERATOR documented in this encounter Miscellaneous Notes Miscellaneous - Charlie Peñaloza M.D. - 06/29/2012 11:21 AM CST Ambulatory Depart Summary [address] [address] Visit Information Name: COLLEEN TILLMAN Visit Date: [...] [facility] POWERCHART Document Id: [id number] E SPREADER OPERATOR Miscellaneous - Charlie Peñaloza M.D. - 06/29/2012 11:21 AM CST Ambulatory Patient Summary [address] [address] Visit Information Name: COLLEEN TILLMAN Current Date: [...] Date Time Location Reason Provider 07/01/2012 09:00 [facility] Family Med stitches removed Charlie Peñaloza MD 07/05/2012 08:30 [facility] follow up fracture Donavno REED, Cayetano Vela Your Goals/Additional instructions: Source: [facility] POWERCHART Document Id: [id number] E SPREADER OPERATOR Miscellaneous - Cliff Griffiths L.P.N. - 06/29/2012 10:24 AM CST Adult Card Game Operator Intake/History Adult Card Game Operator Intake/History Entered On: 06/29/2012 10:29 STONE SPREADER OPERATOR Performed On: 06/29/2012 10:24 STONE SPREADER OPERATOR by CLIFF GRIFFITHS LPN Intake Chief Complaint [...] Weight Source : Other: declined CLIFF GRIFFITHS FISHERIES MANAGEMENT BIOLOGIST - 06/29/2012 10:24 STONE SPREADER OPERATOR Subjective Pain Symptoms : Yes CLIFF GRIFFITHS FISHERIES MANAGEMENT BIOLOGIST - 06/29/2012 10:24 STONE SPREADER OPERATOR Pain Pain Assessment Grid Pain 1 Location : Shoulder Laterality : Left Intensity : 2 CLIFF GRIFFITHS FISHERIES MANAGEMENT BIOLOGIST - 06/29/2012 10:24 STONE SPREADER OPERATOR Dependent Habits Tobacco Use/Currently Using : No Exposure to Tobacco Smoke : Care provider denies smoking in home Smoking Status : Never smoker CLIFF GRIFFITHS [facility] - 06/29/2012 10:24 STONE SPREADER OPERATOR Tobacco Use Grid Last Use : never CLIFF GRIFFITHS LPN - 06/29/2012 10:24 STONE SPREADER OPERATOR Alcohol Use : No CLIFF GRIFFITHS [facility] - 06/29/2012 10:24 STONE SPREADER OPERATOR Caffeine Use Grid Caffeine Use : None CLIFF GRIFFITHS [facility] - 06/29/2012 10:24 STONE SPREADER OPERATOR Recreational Drug Use Grid Drug Use : None CLIFF GRIFFITHS LPN - 06/29/2012 10:24 STONE SPREADER OPERATOR Allergy Allergies (Active) Ceftin Estimated Onset Date: Unspecified ; Reactions: hives ; Created By: MADDIE AGOSTO LPN; Reaction Status: Active ; Category: Drug ; Substance: Ceftin ; Type: Allergy ; Updated By: MADDIE AGOSTO LPN; Reviewed Date: 06/28/2012 10:44 STONE SPREADER OPERATOR Source: [facility] POWERCHART Document Id: [id number] E SPREADER OPERATOR documented in this encounter Plan of Treatment Not on filedocumented as of this encounter Visit Diagnoses Not on filedocumented in this encounter
--- OUTSIDE RECORDS SUMMARY | 2022-07-10 12:26 | XMS_ITS | Encounter Summary ---
:1955 Author Organization [facility] Address [address] [place] [address] Care Team Providers Name Role Phone Unavailable [...] How often do you attend moravian or islam More than 4 time s [...] Comments Blood Pressure 140/86 08/06/2012 10:18 AM CLOTHING MANAGER Pulse - - Temperature - - [...] Carlos Lawton - 08/06/2012 10:11 AM CST [id number] HISTORY OF PRESENT ILLNESS This 57-year-old female [...] LAWTON PA-C On: 02/04/2013 08:18 AM Source: [facility] MHSDOLBEYNONRADSYS Document Id: [id number] documented in this encounter Miscellaneous Notes Miscellaneous - Carlos Lawton - 08/06/2012 4:08 PM CST Ambulatory Depart Summary [facility] [address] [address] Visit Information Name: COLLEEN TILLMAN [facility] Number: [id number] Visit Date: 08/06/2012 16:08:27 Attending Provider: CARLOS LAWTON PA-C Primary Care Provider: CHRISSY DE LA CRUZ DNP, COMIC WRITER COLLEEN TILLMAN has been given the following [...] your provider for clarification. Additional Information: Source: [facility] POWERCHART Document Id: [id number] HING MANAGER Fiordaliza - Carlos Lawton - 08/06/2012 4:08 PM CST Ambulatory Patient Summary [facility] [address] [place] [address] Visit Information Name: COLLEEN TILLMAN [facility] Number: [id number] Current Date: 08/06/2012 16:08:28 Physicians Attending Provider: CARLOS LAWTON PA-C Primary Care Provider: CHRISSY DE LA CRUZ DNP, COMIC WRITER Your Medications Here is a list of [...] for Pain / Fever Take with food [facility] Prescription (Melaluca vitamins) 1 packet Oral once [...] Date Time Location Reason Provider 08/08/2012 08:15 [facility] Family Med ANNUAL PHYSICAL PAP? & ESTAB PCP 08/09/2012 08:00 CAM PT/OT Edgardo Gurrola 09/03/2012 14:30 [facility] Clin Follow up Carlos Lawton PA-C Your Goals/Additional instructions: Source: [facility] POWERCHART Document Id: [id number] HING MANAGER Miscellaneous - Rose Ziegler R.N. - 08/06/2012 10:18 AM CST Adult E Merchant Intake/History Adult E Merchant Intake/History Entered On: 08/06/2012 10:23 CLOTHING MANAGER Performed On: 08/06/2012 10:18 CLOTHING MANAGER by ROSE ZIEGLER wetlands technician Chief Complaint : f/u left shoulder, humerus fx, doing well Temperature Core : 37.0C(Converted to: 98.6DegF) Systolic Blood Pressure : 140mmHg Diastolic Blood Pressure : 86mmHg NIBP Mean : 104mmHg BP Location : Left upper extremity Blood Pressure Cuff Size : Large ROSE ZIEGLER RN - 08/06/2012 10:18 CLOTHING MANAGER General Info Information Given By : Patient Preferred Communication Mode : Verbal Languages : Pashto ROSE ZIEGLER RN - 08/06/2012 10:18 CLOTHING MANAGER Subjective Pain Symptoms : Yes ROSE ZIEGLER RN - 08/06/2012 10:18 CLOTHING MANAGER Pain Pain Assessment Grid Pain 1 Location : Shoulder Laterality : Left Time Pattern : Chronic, Intermittent ROSE ZIEGLER RN - 08/06/2012 10:18 CLOTHING MANAGER Dependent Habits Tobacco Use/Currently Using : No Exposure to Tobacco Smoke : Care provider denies smoking in home Smoking Status : Never smoker ROSE ZIEGLER RN - 08/06/2012 10:18 CLOTHING MANAGER Tobacco Use Grid Last Use : never ROSE ZIEGLER RN - 08/06/2012 10:18 CLOTHING MANAGER Caffeine Use Grid Caffeine Use : None ROSE ZIEGLER RN - 08/06/2012 10:18 CLOTHING MANAGER Recreational Drug Use Grid Drug Use : None ROSE ZIEGLER RN - 08/06/2012 10:18 CLOTHING MANAGER Allergy Allergies (Active) Ceftin Estimated Onset Date: Unspecified ; Reactions: hives ; Created By: MADDIE AGOSTO LPN; Reaction Status: Active ; Category: Drug ; Substance: Ceftin ; Type: Allergy ; Updated By: MADDIE AGOSTO LPN; Reviewed Date: 08/06/2012 10:17 CLOTHING MANAGER Source: [facility] POWERCHART Document Id: [id number] HING MANAGER documented in this encounter Plan of Treatment Not on filedocumented as of this encounter Visit Diagnoses Not on filedocumented in this encounter
--- OUTSIDE RECORDS SUMMARY | 2022-07-10 12:26 | XMS_ITS | Encounter Summary ---
:1955 Author Organization [facility] Address [address] [place] [address] Care Team Providers Name Role Phone Unavailable Primary Care Provider Unavailable Encounter Details Date Type Department Care Team Description 01/28/2013 Hospital Encounter HX [facility] Yulissa Ruffin APRN, C.N.P. [address] [phone] (Wo rk) Social History Tobacco Use [...] How often do you attend mandaeism or presybeterian More than 4 time s [...]
--- OUTSIDE RECORDS SUMMARY | 2022-07-10 12:26 | XMS_ITS | Encounter Summary ---
:[address] [facility] Address [address] [place] [address] Care Team Providers Name Role Phone Unavailable [...] How often do you attend tenriism or evangelical More than 4 time s [...]
--- OUTSIDE RECORDS SUMMARY | 2022-07-10 12:26 | XMS_ITS | Encounter Summary ---
:1955 Author Organization [facility] Address [address] [place] [address] Care Team Providers Name Role Phone Unavailable Primary Care Provider Unavailable Encounter Details Date Type Department Care Team Description 06/28/2012 Hospital Encounter HX NO MAPPING Gilma Gonzales M.D. [address] [place] [phone] (Wo rk) Social History Tobacco [...] How often do you attend latter-day or druze More than 4 time s [...]
--- OUTSIDE RECORDS SUMMARY | 2022-07-10 12:26 | XMS_ITS | Encounter Summary ---
:1955 Author Organization [facility] Address [address] [place] [address] Care Team Providers Name Role Phone Unavailable Primary Care Provider Unavailable Encounter Details Date Type Department Care Team Description 01/29/2013 Hospital Encounter HX [facility] Solis Caicedo O.D. Social History Tobacco [...] How often do you attend congregational or pentecostal More than 4 time s [...] Michaels O.D. - 01/29/2013 10:00 AM CDT [id number] Pain Questionnaire: Is your visit today because [...] Current RX: OTC READERS +1.75 Sphere Cylinder Haworth Add Prism Right Eye +1.75 Left Eye [...] Exam [facility] Document Id: [id number] Electronically signed by Conversion, [facility] Filter Machine Operator [id number] at 01/15/2017 6:09 PM CDT Solis Michaels O.D. - 01/29/2013 10:00 AM CDT [id number] CLINIC ENCOUNTER SLIT LAMP EXAMINATION: Shows angles [...] want glasses for distance. Is satisfied with ulay-iyk-hydbkqp readers PLAN: At her request, no Rx for glasses given. She will continue to use +2.00 gtcf-vca-hfxfnyf readers. Reevaluate with full exam in two years, sooner if needed. Hang Alfredo//law cc: Source: [facility] RWMCHXTRANSXRTFSYS Document Id: [id number] documented in this encounter Plan of Treatment Not on filedocumented as of this encounter Visit Diagnoses Not on filedocumented in this encounter
--- OUTSIDE RECORDS SUMMARY | 2022-07-10 12:26 | XMS_ITS | Encounter Summary ---
:1955 Author Organization [facility] Address [address] [place] [address] Care Team Providers Name Role Phone Unavailable [...] How often do you attend christian or buddhism More than 4 time s [...]
--- OUTSIDE RECORDS SUMMARY | 2022-07-10 12:26 | XMS_ITS | Encounter Summary ---
:1955 Author Organization [facility] Address [address] [place] [address] Care Team Providers Name Role Phone Unavailable Primary Care Provider Unavailable Encounter Details Date Type Department Care Team Description 01/29/2013 Hospital Encounter HX [facility] XRAY Provider, Histori reilly Social History [...] How often do you attend yarsani or jewish More than 4 time s [...]
--- OUTSIDE RECORDS SUMMARY | 2022-07-10 12:26 | XMS_ITS | Encounter Summary ---
:1955 Author Organization [facility] Address [address] [place] [address] Care Team Providers Name Role Phone Unavailable Primary Care Provider Unavailable Encounter Details Date Type Department Care Team Description 07/25/2012 - Hospital Encounter HX [facility] Cayetano Raphael, 11/28/2012 PNaomiAGillianC. Social [...] How often do you attend hindu or anglican More than 4 time s [...] Discharge OT Discharge Entered On: 09/25/2012 8:06 FORESTRY TECHNICAL OFFICER Performed On: 09/25/2012 7:58 FORESTRY TECHNICAL OFFICER by MAYTE EDDY/Yani Goals Review OT Goals Reviewed : Goals reviewed and unchanged OT Discharge Status : Pt was seen for evaluation only on 08-15-12. Pt Dx of facial injury with paralysis. Onset date 06-27-12. Pt instructed on facial exercises and provided with handouts from Anthony on facial exercises, sensory desensitization and home program to do. Pt showed good understanding. Did not reschedule further treatment as no further concerns. D/C at this time. MAYTE EDDY/Yani - 09/25/2012 7:58 FORESTRY TECHNICAL OFFICER General Info Pain Symptoms : No MAYTE EDDY/Yani - 09/25/2012 7:58 FORESTRY TECHNICAL OFFICER OT Charge Charges - OT : Charges Not Appropriate MAYTE EDDY/Yani - 09/25/2012 7:58 FORESTRY TECHNICAL OFFICER Source: [facility] POWERCHART Document Id: [id number] Bolivar Cox P.T. - 08/27/2012 12:00 AM CST [id number] CHIEF COMPLAINT/REASON FOR VISIT Patient comes in [...] BOLIVAR COX On: 09/02/2012 02:50 PM Source: [facility] MHSDOLBEYNONRADSYS Document Id: [id number] Bolivar Cottrell P.T. - 08/22/2012 12:00 AM CST [id number] IMPRESSION/REPORT/PLAN Colleen comes in today without a [...] BOLIVAR COX On: 08/27/2012 11:15 AM Source: [facility] MHSDOLBEYNONRADSYS Document Id: [id number] STRY TECHNICAL OFFICER Bolivar Cox P.T. - 08/19/2012 12:00 AM CST [id number] IMPRESSION/REPORT/PLAN Colleen comes in today without significant [...] BOLIVAR COX On: 08/27/2012 11:17 AM [facility] Document Id: [id number] Bolivar Cottrell PElsy. - 08/09/2012 12:00 AM CST [id number] IMPRESSION/REPORT/PLAN Colleen comes in after having seen the air traffic control specialist center yesterday. It is noted that we can [...] BOLIVAR COX On: 08/27/2012 11:18 AM Source: [facility] MHSDOLBEYNONRADSYS Document Id: [id number] Bolivar Cottrell P.T. - 08/05/2012 12:00 AM CST [id number] IMPRESSION/REPORT/PLAN Colleen comes in today without significant [...] BOLIVAR COX On: 08/10/2012 11:24 AM Source: [facility] Document Id: [id number] STRY TECHNICAL OFFICER Bolivar Cox P.T. - 08/01/2012 12:00 AM CST [id number] IMPRESSION/REPORT/PLAN Colleen comes in today stating that [...] BOLIVAR COX On: 08/10/2012 11:27 AM Source: [facility] Document Id: [id number] STRY TECHNICAL OFFICER Bolivar Cox P.T. - 07/29/2012 12:00 AM CST [id number] IMPRESSION/REPORT/PLAN Colleen comes in today stating that [...] BOLIVAR COX On: 07/31/2012 07:40 AM Source: [facility] MHSDOLBEYNONRADSYS Document Id: [id number] STRY TECHNICAL OFFICER documented in this encounter Consult Notes Conversion, Historical Provider Ser - 08/15/2012 12:00 AM CST [id number] REFERRING PROVIDER: Cayetano Raphael P.A.-C. CHIEF COMPLAINT/REASON [...] much better. She is right hand dominant. [place] no concerns to address that at this [...] Nasima OTR/L On: 09/03/2012 10:44 AM Source: [facility] MHSDOLBEYNONRADSYS Document Id: [id number] Bolivar Cox P.T. - 07/25/2012 12:00 AM CST [id number] REFERRING PHYSICIAN LANIE Ch. CHIEF COMPLAINT/REASON FOR [...] per week for next 4-6 weeks. William Harper/eslin cc: Cayetano Raphael P.A.-C. Electronically Signed By: BOLIVAR COX On: 07/31/2012 07:48 AM Source: [facility] MHSDOLBEYNONRADSYS Document Id: [id number] STRY TECHNICAL OFFICER documented in this encounter Miscellaneous Notes Miscellaneous - Chrissy De La Cruz D.N.P., C.N.P. - 08/26/2012 11:30 AM FORESTRY TECHNICAL OFFICER General Message Document Contains Addenda Addendum by MADDIE AGOSTO LPN on 26 August 2012 16:24:07 FORESTRY TECHNICAL OFFICER Spoke with Colleen cervantes. States, understanding. From: CHRISSY DE LA CRUZ DNP, CAR REPAIRER APPRENTICE To: MADDIE AGOSTO LPN; Sent: 08/26/2012 11:30:50 FORESTRY TECHNICAL OFFICER Subject: General Message Please call Colleen and let her know I got her records and went through everything. It looks like herbone density results from us are just a little bit better than when they were last done. Still, advise to have this rechecked in 2- 3 years. Please let her know this, thank you. Chrissy Source: [facility] POWERCHART Document Id: [id number] Electronically signed by Conversion, [facility] Machine Shop Lead Man [id number] at 01/21/2017 1:15 AM CDT documented in this encounter Plan of Treatment Not on filedocumented as of this encounter Visit Diagnoses Not on filedocumented in this encounter
--- OUTSIDE RECORDS SUMMARY | 2022-07-10 12:27 | XMS_ITS | Encounter Summary ---
:1955 Author Organization [facility] Address [address] [place] [address] Care Team Providers Name Role Phone Unavailable Primary Care Provider Unavailable Encounter Details Date Type Department Care Team Description 01/03/2011 Hospital Encounter [facility]X [facility] Yulissa Lopez, OSMANI N, C.N.P. [address], [place] [phone] (Wo rk) Social History [...] How often do you attend synagogue or buddhist More than 4 time s [...] C.N.P., R.N. - 01/03/2011 8:15 AM CDT [id number] Colleen is a 55 year old postmenopausal [...] her health over the next year. [facility] Document Id: [id number] documented in this encounter Plan of Treatment Not on filedocumented as of this encounter Visit Diagnoses Not on filedocumented in this encounter
--- OUTSIDE RECORDS SUMMARY | 2022-07-10 12:27 | XMS_ITS | Encounter Summary ---
:1955 Author Organization [facility] Address [address] [place] [address] Care Team Providers Name Role Phone Unavailable Primary Care Provider Unavailable Encounter Details Date Type Department Care Team Description 12/11/2006 Hospital Encounter HX [facility] Yulissa Lopez, OSMANI N, C.N.P. [address] [place], [place] [phone] (Wo rk) Social History [...] How often do you attend judaism or buddhism More than 4 time s [...]
--- OUTSIDE RECORDS SUMMARY | 2022-07-10 12:27 | XMS_ITS | Encounter Summary ---
:1955 Author Organization [facility] Address [address] [place] [address] Care Team Providers Name Role Phone Unavailable Primary Care Provider Unavailable Encounter Details Date Type Department Care Team Description 09/23/2008 Hospital Encounter HX NO MAPPING Yulissa Finn APRN, C.N.P. [address] [place], [place] [phone] (Wo rk) Social History [...] How often do you attend hoahaoism or christian More than 4 time s [...]
--- OUTSIDE RECORDS SUMMARY | 2022-07-10 12:27 | XMS_ITS | Encounter Summary ---
:1955 Author Organization [facility] Address [address] [place] [address] Care Team Providers Name Role Phone Unavailable Primary Care Provider Unavailable Encounter Details Date Type Department Care Team Description 09/23/2008 Hospital Encounter [facility] XRAY Provider, Histori reilly Social History [...] How often do you attend holiness or religion More than 4 time s [...]
--- OUTSIDE RECORDS SUMMARY | 2022-07-10 12:27 | XMS_ITS | Encounter Summary ---
:1955 Author Organization [facility] Address [address] [place] [address] Care Team Providers Name Role Phone Unavailable Primary Care Provider Unavailable Encounter Details Date Type Department Care Team Description 01/26/2011 Hospital Encounter HX NO MAPPING Abhi Valle am, M.D. [address] [place] [phone] (Wo rk) Social History Tobacco [...] How often do you attend sikhism or gnosticism More than 4 time s [...]
--- OUTSIDE RECORDS SUMMARY | 2022-07-10 12:27 | XMS_ITS | Encounter Summary ---
:1955 Author Organization [facility] Address [address] [place] [address] Care Team Providers Name Role Phone Unavailable Primary Care Provider Unavailable Encounter Details Date Type Department Care Team Description 12/05/2010 Hospital Encounter [facility]X [facility] Yulissa Ruffin APRN, C.N.P. [address] [phone] (Wo rk) Social History Tobacco Use [...] How often do you attend zoroastrian or yazidism More than 4 time s [...]
--- OUTSIDE RECORDS SUMMARY | 2022-07-10 12:27 | XMS_ITS | Encounter Summary ---
:1955 Author Organization [facility] Address [address] [place] [address] Care Team Providers Name Role Phone Unavailable Primary Care Provider Unavailable Encounter Details Date Type Department Care Team Description 10/10/2010 Hospital Encounter [facility] Solis Caicedo O.D. Social History Tobacco [...] How often do you attend confucianist or zoroastrian More than 4 time s [...] Historical Provider Ser - 10/10/2010 12:00 AM AMBULANCE ASSISTANT [id number] Colleen Tolentino [id number] [place] [phone] [facility] October 10, 2010 Dear Colleen Tolentino: Our records indicate that you are due for the following appointment: TWO YEAR EYE EXAM Please call us to make an appointment at your convenience. Our telephone number for scheduling an appointment is [phone]. If you have already made an appointment for this or have had the proceduredone, please disregard this notice. We look forward to seeing you soon. Sincerely, Solis Michaels O.D./yoselin Ophthalmology Department [facility] Document Id: [id number] documented in this encounter Plan of Treatment Not on filedocumented as of this encounter Visit Diagnoses Not on filedocumented in this encounter
--- OUTSIDE RECORDS SUMMARY | 2022-07-10 12:27 | XMS_ITS | Encounter Summary ---
:1955 Author Organization [facility] Address [address] [place] [address] Care Team Providers Name Role Phone Unavailable Primary Care Provider Unavailable Encounter Details Date Type Department Care Team Description 12/31/2006 Hospital Encounter [facility]X [facility] Yulissa Lopez, OSMANI N, C.N.P. [address] [place], [place] [phone] (Wo rk) Social History [...] How often do you attend anabaptism or latter-day More than 4 time s [...]
--- OUTSIDE RECORDS SUMMARY | 2022-07-10 12:27 | XMS_ITS | Encounter Summary ---
:1955 Author Organization [facility] Address [address] [place] [address] Care Team Providers Name Role Phone Unavailable Primary Care Provider Unavailable Encounter Details Date Type Department Care Team Description 01/03/2011 Hospital Encounter [facility]X [facility] XRAY Provider, Histori [...] often do you attend latter day or christianity More than 4 time s [...]
--- OUTSIDE RECORDS SUMMARY | 2022-07-10 12:27 | XMS_ITS | Encounter Summary ---
:[address] [facility] Address [address] [place] [address] Care Team Providers Name Role Phone Unavailable Primary Care Provider Unavailable Encounter Details Date Type Department Care Team Description 09/23/2008 Hospital Encounter HX NO MAPPING Yulissa Finn APRN, C.N.P. [address] [place], [place] [phone] (Wo rk) Social History [...] How often do you attend religious or episcopalian More than 4 time s [...]
--- OUTSIDE RECORDS SUMMARY | 2022-07-10 12:27 | XMS_ITS | Encounter Summary ---
:1955 Author Organization [facility] Address [address] [place] [address] Care Team Providers Name Role Phone Unavailable Primary Care Provider Unavailable Encounter Details Date Type Department Care Team Description 01/03/2011 Hospital Encounter HX [facility] Yulissa Lopez, OSMANI N, C.N.P. [address] [place], [place] [phone] (Wo rk) Social History [...] How often do you attend zoroastrian or pentecostalism More than 4 time s [...]
--- OUTSIDE RECORDS SUMMARY | 2022-07-10 12:27 | XMS_ITS | Encounter Summary ---
:1955 Author Organization [facility] Address [address] [place] [address] Care Team Providers Name Role Phone Unavailable Primary Care Provider Unavailable Encounter Details Date Type Department Care Team Description 07/25/2011 Hospital Encounter HX [facility] POD[facility] Ana Felix D.P.M. [address] [place] [phone] (Wo rk) Social History Tobacco Use [...] How often do you attend tenriism or scientologist More than 4 time s [...] Saucedo, D.P.M. - 07/25/2011 9:15 AM CST [id number] No visit. Contact information for Sebastián Saenz given. Source: [facility] RWHXTRANSXRTFSYS Document Id: [id number] Electronically signed by Conversion, [facility] Furniture Repair Technician [id number] at 01/21/2017 2:34 AM CDT documented in this encounter Plan of Treatment Not on filedocumented as of this encounter Visit Diagnoses Not on filedocumented in this encounter
--- OUTSIDE RECORDS SUMMARY | 2022-07-10 12:27 | XMS_ITS | Encounter Summary ---
:1955 Author Organization [facility] Address [address] [place] [address] Care Team Providers Name Role Phone Unavailable Primary Care Provider Unavailable Encounter Details Date Type Department Care Team Description 01/26/2011 Hospital Encounter HX NO MAPPING Abhi Valle am, M.D. [address] [place] [phone] (Wo rk) Social History Tobacco [...] How often do you attend holiness or temple More than 4 time s [...]
--- OUTSIDE RECORDS SUMMARY | 2022-07-10 12:27 | XMS_ITS | Encounter Summary ---
:1955 Author Organization [facility] Address [address] [place] [address] Care Team Providers Name Role Phone Unavailable Primary Care Provider Unavailable Encounter Details Date Type Department Care Team Description 12/20/2006 Hospital Encounter HX [facility] XRAY Provider, Histori reilly Social History [...] How often do you attend scientologist or scientologist More than 4 time s [...] C.N.P., R.N. - 12/20/2006 9:00 AM CDT [id number] Quick Note: Mira puentes sent Source: [facility] Document Id: [id number] Electronically signed by Conversion, [facility] Grievance And Appeals Specialist [id number] at 01/22/2017 6:32 AM CDT documented in this encounter Plan of Treatment Not on filedocumented as of this encounter Visit Diagnoses Not on filedocumented in this encounter
--- OUTSIDE RECORDS SUMMARY | 2022-07-10 12:27 | XMS_ITS | Encounter Summary ---
:1955 Author Organization [facility] Address [address] [place] [address] Care Team Providers Name Role Phone Unavailable Primary Care Provider Unavailable Encounter Details Date Type Department Care Team Description 01/13/2011 Hospital Encounter HX NO MAPPING Yulissa Finn APRN, C.N.P. [address] [place], [place] [phone] (Wo rk) Social History [...] How often do you attend scientologist or yarsani More than 4 time s [...]
--- OUTSIDE RECORDS SUMMARY | 2022-07-10 12:27 | XMS_ITS | Encounter Summary ---
:1955 Author Organization [facility] Address [address] [place] [address] Care Team Providers Name Role Phone Unavailable Primary Care Provider Unavailable Encounter Details Date Type Department Care Team Description 01/03/2011 Hospital Encounter HX NO MAPPING Yulissa Finn APRN, C.N.P. [address] [place], [place] [phone] (Wo rk) Social History [...] How often do you attend alevism or presybeterian More than 4 time s [...]
--- OUTSIDE RECORDS SUMMARY | 2022-07-10 12:27 | XMS_ITS | Encounter Summary ---
:1955 Author Organization [facility] Address [address] [place] [address] Care Team Providers Name Role Phone Unavailable Primary Care Provider Unavailable Encounter Details Date Type Department Care Team Description 12/11/[address] [facility] Yulissa Lopez, OSMANI N, C.N.P. [address] [place], [place] [phone] (Wo rk) Social History [...] How often do you attend buddhist or adventist More than 4 time s [...] C.N.P., RMary - 12/11/2006 9:00 AM CDT [id number] Quick Note: Mira puentes sent Source: [facility] Document Id: [id number] Electronically signed by Lizeth, [facility] Bale Tie Machine Operator [id number] at 01/22/2017 7:56 AM CDT Yulissa Finn C.N.P., [place] - 12/11/2006 9:00 AM CDT [id number] Colleen is a 51 year old postmenopausal woman here for her annual exam. She has been menopausal sinceage 42. She is not on HRT. She would like to continue with this plan. She denies any vaginal bleeding. Colleen is sexually active with her and denies dyspareunia. She denies problems with incontinence. Her bowels are regular . For exercise, she goes to [employer] regularly. She takes multi vitamins. 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 Source: [facility] Document Id: [id number] documented in this encounter Plan of Treatment Not on filedocumented as of this encounter Visit Diagnoses Not on filedocumented in this encounter
--- OUTSIDE RECORDS SUMMARY | 2022-07-10 12:27 | XMS_ITS | Encounter Summary ---
:1955 Author Organization [facility] Address [address] [place] [address] Care Team Providers Name Role Phone Unavailable Primary Care Provider Unavailable Encounter Details Date Type Department Care Team Description 10/07/[address] [facility] Solis Caicedo O.D. Social History Tobacco [...] How often do you attend moravian or shinto More than 4 time s [...] Michaels O.D. - 10/07/2008 9:00 AM CST [id number] CLINIC ENCOUNTER SLIT LAMP EXAM: Shows angles [...] time. PLAN: The patient will continue with fvpt-[id number] readers. Reevaluate with full exam in two years, sooner if needed. Solis Michaels O.D. KMivana cc: Source: [facility] RWHXTRANSXSYS Document Id: [id number] Electronically signed by Conversion, [facility] Financial Coordinator [id number] at 01/21/2017 6:48 PM CDT Conversion, Historical Provider Ser - 10/07/2008 9:00 AM CST [id number] Pain Questionnaire: Is your visit today because [...] Phoria:ortho. Current RX:NONE WITH HER Sphere Cylinder [place] Add Prism OD OS Refraction RET OD RET OS MR OD -.25 20/30 VA OU MR OS PLANO +.25 040 20/25 25 ADD OD +2.00 NA NA 20/ VA OU ADD OS +2.00 NA NA 20/ 20 CYC OD 20/ CYC OS 20/ Final RX: Sphere Cylinder [place] Add Prism OD +2.00 READERS OS IOP OD 13 OS 16 Tonometry Applination Dilation Medication Tropicamide 1.0% Optic Disc Assessment C/D Ratio OD C/D Ratio OS HPI ROS Physical Exam Source: [facility] RWHXTRANSXRTFSYS Document Id: [id number] documented in this encounter Plan of Treatment Not on filedocumented as of this encounter Visit Diagnoses Not on filedocumented in this encounter
--- OUTSIDE RECORDS SUMMARY | 2022-07-10 12:27 | XMS_ITS | Encounter Summary ---
:1955 Author Organization [facility] Address [address] [place] [address] Care Team Providers Name Role Phone Unavailable Primary Care Provider Unavailable Encounter Details Date Type Department Care Team Description 01/03/2011 Hospital Encounter HX NO MAPPING Yulissa Finn APRN, C.N.P. [address] [place], [place] [phone] (Wo rk) Social History [...] How often do you attend baptism or faith More than 4 time s [...]
--- OUTSIDE RECORDS SUMMARY | 2022-07-10 12:27 | XMS_ITS | Encounter Summary ---
:1955 Author Organization [facility] Address [address] [place] [address] Care Team Providers Name Role Phone Unavailable Primary Care Provider Unavailable Encounter Details Date Type Department Care Team Description 12/20/2006 Hospital Encounter HX NO MAPPING Yulissa Finn APRN, C.N.P. [address] [place], [place] [phone] (Wo rk) Social History [...] How often do you attend yazidi or oriental orthodox More than 4 time [...]
--- OUTSIDE RECORDS SUMMARY | 2022-07-10 12:27 | XMS_ITS | Encounter Summary ---
:1955 Author Organization [facility] Address [address] [place] [address] Care Team Providers Name Role Phone Unavailable Primary Care Provider Unavailable Encounter Details Date Type Department Care Team Description 09/03/2008 Hospital Encounter HX [facility] Suma Steven M.D. [address] [place] [address] (Wo rk) Social History Tobacco [...]
--- OUTSIDE RECORDS SUMMARY | 2022-07-10 12:27 | XMS_ITS | Encounter Summary ---
:1955 Author Organization [facility] Address [address] [place] [address] Care Team Providers Name Role Phone Unavailable Primary Care Provider Unavailable Encounter Details Date Type Department Care Team Description 01/04/[address] [facility] Yulissa Lopez, OSMANI N, C.N.P. [address] [place], [place] [phone] (Wo rk) Social History [...] often do you attend oriental orthodox or denominational More than 4 time s [...]
--- OUTSIDE RECORDS SUMMARY | 2022-07-10 12:27 | XMS_ITS | Encounter Summary ---
:1955 Author Organization [facility] Address [address] [place] [address] Care Team Providers Name Role Phone Unavailable Primary Care Provider Unavailable Encounter Details Date Type Department Care Team Description 09/07/2008 Hospital Encounter [facility]X [facility] Yulissa Ruffin APRN, C.N.P. [address] [place] [phone] (Wo rk) Social History Tobacco Use [...] How often do you attend worship or quaker More than 4 time s [...]
--- OUTSIDE RECORDS SUMMARY | 2022-07-10 12:27 | XMS_ITS | Encounter Summary ---
:1955 Author Organization [facility] Address [address] [place] [address] Care Team Providers Name Role Phone Unavailable [...] How often do you attend samaritan or rastafarian More than 4 time s [...] Historical Provider Ser - 08/20/2011 12:00 AM MANUFACTURING SUPPORT ENGINEER [id number] 08/14/2012 - IOD processed records. Source: [facility] BILOXIHXTRANSXRTFSYS Document Id: [id number] documented in this encounter Plan of Treatment Not on filedocumented as of this encounter Visit Diagnoses Not on filedocumented in this encounter
--- OUTSIDE RECORDS SUMMARY | 2022-07-10 12:27 | XMS_ITS | Encounter Summary ---
:1955 Author Organization [facility] Address [address] [place] [address] Care Team Providers Name Role Phone Unavailable Primary Care Provider Unavailable Encounter Details Date Type Department Care Team Description 07/22/2008 Hospital Encounter HX [facility] Yulissa Ruffin APRN, C.N.P. [address] [place] [phone] (Wo rk) Social History Tobacco Use [...] How often do you attend uatsdin or mosque More than 4 time s [...]
--- OUTSIDE RECORDS SUMMARY | 2022-07-10 12:27 | XMS_ITS | Encounter Summary ---
:1955 Author Organization [facility] Address [address] [place] [address] Care Team Providers Name Role Phone Unavailable Primary Care Provider Unavailable Encounter Details Date Type Department Care Team Description 01/13/2011 Hospital Encounter [facility] XRAY Provider, Histori reilly Social History [...] How often do you attend orthodox or gnosticism More than 4 time s [...]
--- OUTSIDE RECORDS SUMMARY | 2022-07-10 12:27 | XMS_ITS | Encounter Summary ---
:1955 Author Organization [facility] Address [address] [place] [address] Care Team Providers Name Role Phone Unavailable Primary Care Provider Unavailable Encounter Details Date Type Department Care Team Description 01/26/2011 Hospital Encounter HX NO MAPPING Abhi Valle am, M.D. [address] [place] [phone] (Wo rk) Social History Tobacco [...] How often do you attend sikh or rastafari More than 4 time s [...]
--- OUTSIDE RECORDS SUMMARY | 2022-07-10 12:27 | XMS_ITS | Encounter Summary ---
:1955 Author Organization [facility] Address [address] [place] [address] Care Team Providers Name Role Phone Unavailable Primary Care Provider Unavailable Encounter Details Date Type Department Care Team Description 01/13/2011 Hospital Encounter HX NO MAPPING Yulissa Finn APRN, C.N.P. [address] [place], [place] [phone] (Wo rk) Social History [...] How often do you attend religion or sikhism More than 4 time s [...]
--- OUTSIDE RECORDS SUMMARY | 2022-07-10 12:27 | XMS_ITS | Encounter Summary ---
:1955 Author Organization [facility] Address [address] [place] [address] Care Team Providers Name Role Phone Unavailable Primary Care Provider Unavailable Encounter Details Date Type Department Care Team Description 12/31/2006 Hospital En[facility] Yulissa Lopez, OSMANI N, C.N.P. [address] [place], [place] [phone] (Wo rk) Social History [...] How often do you attend confucianism or anabaptism More than 4 time s [...]
--- OUTSIDE RECORDS SUMMARY | 2022-07-10 12:27 | XMS_ITS | Encounter Summary ---
:1955 Author Organization [facility] Address [address] [place] [address] Care Team Providers Name Role Phone Unavailable Primary Care Provider Unavailable Encounter Details Date Type Department Care Team Description 10/05/2008 Hospital Encounter [facility] Yulissa Lopez, OSMANI N, C.N.P. [address] [place], [place] [phone] (Wo rk) Social History [...] How often do you attend tenriism or orthodox More than 4 time s [...]
--- OUTSIDE RECORDS SUMMARY | 2022-07-10 12:27 | XMS_ITS | Encounter Summary ---
:1955 Author Organization [facility] Address [address] [place] [address] Care Team Providers Name Role Phone Unavailable Primary Care Provider Unavailable Encounter Details Date Type Department Care Team Description 07/12/2007 Hospital En[facility] Yulissa Lopez, OSMANI N, C.N.P. [address] [place], [place] [phone] (Wo rk) Social History [...] How often do you attend zoroastrianism or anglican More than 4 time s [...] Historical Provider Ser - 07/12/2007 12:00 AM RECYCLING DIRECTOR [id number] Colleen Tolentino [address] [place] [id number] July 12, 2007 Dear Colleen Tolentino, APPOINTMENT REMINDER: Our record indicates that it is time for you to be seen for an office visit with Yulissa Finn PA-C You may call our office at [phone] to schedule an appointment for an Annual Physical. Please check with your insurance carrier for authorization prior to this appointment. Please disregard this notice if you have already received authorization from your insurance company and have made an appointment. Sincerely, [facility] Source: [facility] Document Id: [id number] documented in this encounter Plan of Treatment Not on filedocumented as of this encounter Visit Diagnoses Not on filedocumented in this encounter
--- OUTSIDE RECORDS SUMMARY | 2022-07-10 12:27 | XMS_ITS | Encounter Summary ---
:1955 Author Organization [facility] Address [address] [place] [address] Care Team Providers Name Role Phone Unavailable Primary Care Provider Unavailable Encounter Details Date Type Department Care Team Description 09/23/2008 Hospital Encounter [facility] Yulissa Lopez, OSMANI N, C.N.P. [address] [place], [place] [phone] (Wo [...] How often do you attend methodist or amish More than 4 time s [...] C.N.P., R.N. - 09/23/2008 8:15 AM CST [id number] Colleen is a 53 year old postmenopausal [...] her health over the next year. Source: [facility] Document Id: [id number] documented in this encounter Miscellaneous Notes Miscellaneous - Conversion, Historical Provider Ser - 09/23/2008 8:15 AM INKING MACHINE TENDER [id number] Colleen Tolentino [address] [place] [phone] September 25, 2008 Dear Colleen Tolentino, I am happy to inform you that your recent cervical cancer screening test (PAP smear) was normal. Preventative screening such as this helps insure your health for years to come. Congratulations for taking care of yourself! Please contact my office if you have any further questions. [phone]. Sincerely, Yulissa Finn RN, KETTLE CLEANER [facility]STETR[facility]/GYNECOLOGY [facility] Source: [facility] Document Id: [id number] documented in this encounter Plan of Treatment Not on filedocumented as of this encounter Visit Diagnoses Not on filedocumented in this encounter
--- OUTSIDE RECORDS SUMMARY | 2022-07-10 12:27 | XMS_ITS | Encounter Summary ---
:1955 Author Organization [facility] Address [address] [place] [address] Care Team Providers Name Role Phone Unavailable Primary Care Provider Unavailable Encounter Details Date Type Department Care Team Description 01/23/2011 Hospital [facility] Sabina Marquez, RDN, CDE [address] [place] [phone] Social History Tobacco Use Types [...] How often do you attend baptist or worship More than 4 time s [...] NIKI, C.D.E. - 01/23/2011 10:30 AM CDT [id number] S: Patient seen for f/u weight management [...] skim milk, banana nut muffin or Raisin Turkish muffin, hard boiled egg, 1/2 banana, 8 oz milk Lunch: 1/2 sandwich/meat/cheese, carrot sticks Supper: varies Exercise: 3x/week walks on treadmill or outside 1-2 miles; is trying to increase to 5x/week O: Chol 235 TG 72 HDL 60 LDL 160 Ht. 5'2 Wt. 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 She is aware that emotional eating [...] as warranted. Source: [facility] RWHXTRANSXRTFSYS Document Id: [id number] Electronically signed by Conversion, [facility] Top Hat Body Maker [id number] at 01/20/2017 10:56 PM CDT documented in this encounter Plan of Treatment Not on filedocumented as of this encounter Visit Diagnoses Not on filedocumented in this encounter
--- OUTSIDE RECORDS SUMMARY | 2022-07-10 12:28 | XMS_ITS | Encounter Summary ---
:1955 Author Organization [facility] Address [address] [place] [address] Care Team Providers Name Role Phone Unavailable Primary Care Provider Unavailable Encounter Details Date Type Department Care Team Description 11/21/2006 Hospital Encounter [facility] Yulissa Lopez, OSMANI N, C.N.P. [address] [place], [place] [phone] (Wo rk) Social History [...] How often do you attend rastafarian or buddhist More than 4 time s [...] C.N.P., R.N. - 11/21/2006 10:45 AM CDT [id number] Colleen presents today with c/o L breast pain off and on for 1 month. Today the paint was accompaniedby a stinging or zinger feeling going down her L arm. She does have a family h/o breast cancer andwanted to come in today for evaluation. Denies caffeine use, hormone use. She has started going to [place] as of the past few months, otherwise [...] for patient, will have done today. Source: [facility] RWHXTRANSXRTFSYS Document Id: [id number] Electronically signed by Conversion, [facility] Surveillance Technician [id number] at 01/22/2017 7:56 AM CDT documented in this encounter Plan of Treatment Not on filedocumented as of this encounter Visit Diagnoses Not on filedocumented in this encounter
--- OUTSIDE RECORDS SUMMARY | 2022-07-10 12:28 | XMS_ITS | Encounter Summary ---
:[address] [facility] Address [address] [place] [address] Care Team Providers Name Role Phone Unavailable [...] How often do you attend advent or roman catholic More than 4 time [...]
--- OUTSIDE RECORDS SUMMARY | 2022-07-10 12:28 | XMS_ITS | Encounter Summary ---
:1955 Author Organization [facility] Address [address] [place] [address] Care Team Providers Name Role Phone Unavailable Primary Care Provider Unavailable Encounter Details Date Type Department Care Team Description 02/18/2004 Hospital En[facility] Provider, Historic al Social History Tobacco [...] How often do you attend scientology or episcopalian More than 4 time s [...]
--- OUTSIDE RECORDS SUMMARY | 2022-07-10 12:28 | XMS_ITS | Encounter Summary ---
:1955 Author Organization [facility] Address [address] [place] [address] Care Team Providers Name Role Phone Unavailable Primary Care Provider Unavailable Encounter Details Date Type Department Care Team Description 11/21/2006 Hospital Encounter HX NO MAPPING Yulissa Finn APRN, C.N.P. [address] [place], [place] [phone] (Wo rk) Social History [...] How often do you attend taoist or buddhist More than 4 time s [...]
--- OUTSIDE RECORDS SUMMARY | 2022-07-10 12:28 | XMS_ITS | Encounter Summary ---
:1955 Author Organization [facility] Address [address] [place] [address] Care Team Providers Name Role Phone Unavailable Primary Care Provider Unavailable Encounter Details Date Type Department Care Team Description 08/24/2006 Hospital En[facility] Yulissa Ruffin APRN, C.N.P. [address] [place] [phone] (Wo rk) Social History Tobacco Use [...] often do you attend roman catholic or mandaeism More than 4 time s [...]
--- OUTSIDE RECORDS SUMMARY | 2022-07-10 12:28 | XMS_ITS | Encounter Summary ---
:1955 Author Organization [facility] Address [address] [place] [address] Care Team Providers Name Role Phone Unavailable Primary Care Provider Unavailable Encounter Details Date Type Department Care Team Description 10/22/2006 Hospital Encounter HX NO MAPPING Yulissa Finn APRN, C.N.P. [address] [place], [place] [phone] (Wo rk) Social History [...] How often do you attend mormon or advent More than 4 time s [...]
--- OUTSIDE RECORDS SUMMARY | 2022-07-10 12:28 | XMS_ITS | Encounter Summary ---
:1955 Author Organization [facility] Address [address] [place] [address] Care Team Providers Name Role Phone Unavailable Primary Care Provider Unavailable Encounter Details Date Type Department Care Team Description 05/08/2006 Hospital Encounter [facility] Yulissa Lopez, OSMANI N, C.N.P. [address] [place], [place] [phone] (Wo rk) Social History [...] How often do you attend episcopalian or religion More than 4 time s [...]
--- OUTSIDE RECORDS SUMMARY | 2022-07-10 12:28 | XMS_ITS | Encounter Summary ---
:1955 Author Organization [facility] Address [address] [place] [address] Care Team Providers Name Role Phone Unavailable Primary Care Provider Unavailable Encounter Details Date Type Department Care Team Description 03/14/2004 Hospital En[facility] Sanjay Georges M .D. [...] How often do you attend restorationism or mosque More than 4 time s [...] Provider Ser - 03/14/2004 11:30 AM CDT [id number] Addended by: PANDA CALDWELL on: 03/21/2004,1:47 PM Comment: Bingo Cashier.Modules accepted: Amarilis tomlinson NotesThe individual returns for [...] basis. Sanjay Georges M.D./rvD: 03/16/2004T: 03/21/2004 Source: [facility] RWMCHXTRANSXSYS Document Id: [id number] documented in this encounter Plan of Treatment Not on filedocumented as of this encounter Visit Diagnoses Not on filedocumented in this encounter
--- OUTSIDE RECORDS SUMMARY | 2022-07-10 12:28 | XMS_ITS | Encounter Summary ---
:1955 Author Organization [facility] Address [address] [place] [address] Care Team Providers Name Role Phone Unavailable [...] How often do you attend sikhism or episcopal More than 4 time s [...] Provider Ser - 02/11/2004 12:00 AM CDT [id number] MEDICAL RECORD RELEASE TO [facility] [address] [place] [address] CLINIC NOTES 03/20 TO P RESENT RETRIEVAL 13.79 COPIES TAX 2.74 Source: [facility] Document Id: [id number] documented in this encounter Plan of Treatment Not on filedocumented as of this encounter Visit Diagnoses Not on filedocumented in this encounter
--- OUTSIDE RECORDS SUMMARY | 2022-07-10 12:28 | XMS_ITS | Encounter Summary ---
:1955 Author Organization [facility] Address [address] [place] [address] Care Team Providers Name Role Phone Unavailable Primary Care Provider Unavailable Encounter Details Date Type Department Care Team Description 07/20/2005 Hospital Encounter HX NO MAPPING Yulissa Finn APRN, C.N.P. [address] [place], [place] [phone] (Wo rk) Social History [...] How often do you attend rastafarian or christian More than 4 time s [...]
--- OUTSIDE RECORDS SUMMARY | 2022-07-10 12:28 | XMS_ITS | Encounter Summary ---
:1955 Author Organization [facility] Address [address] [place] [address] Care Team Providers Name Role Phone Unavailable Primary Care Provider Unavailable Encounter Details Date Type Department Care Team Description 02/15/2004 Hospital Encounter [facility]X [facility] Provider, [facility] Social History Tobacco Use Types Packs/Day [...] How often do you attend zoroastrian or confucianism More than 4 time s [...]
--- OUTSIDE RECORDS SUMMARY | 2022-07-10 12:28 | XMS_ITS | Encounter Summary ---
:1955 Author Organization [facility] Address [address] [place] [address] Care Team Providers Name Role Phone Unavailable Primary Care Provider Unavailable Encounter Details Date Type Department Care Team Description 04/05/2006 Hospital Encounter [facility] PODIATRY Ana Felix D.P.M. [address] [place] [phone] (Wo rk) Social History Tobacco Use [...] How often do you attend taoism or restorationism More than 4 time s [...]
--- OUTSIDE RECORDS SUMMARY | 2022-07-10 12:28 | XMS_ITS | Encounter Summary ---
:1955 Author Organization [facility] Address [address] [place] [address] Care Team Providers Name Role Phone Unavailable Primary Care Provider Unavailable Encounter Details Date Type Department Care Team Description 01/20/2004 Hospital Encounter HX [facility] OBGYN Provider, Histor ical Social History [...] How often do you attend sikh or caodaism More than 4 time s [...] Provider Ser - 01/20/2004 10:15 AM CDT [id number] Colleen is a 48 year old postmenopausal [...] years have adopte d 2 boys from [facility], they are 22 months and 10 months. For exercise, she has been walking. She is aware that her lipids are high and she is also starting a new diet to try to lose weight, wants to lose 25#, so would like her cholesterol rechecked in Jul. She takes vitamins. Her calcium intake is adequate. She does not have mood concerns. She takes Lawtey's wart daily with good relief of m [...] at 3:10 PM. happy pap sent Source[facility] Document Id: [id number] documented in this encounter Miscellaneous Notes Miscellaneous - Conversion, Historical Provider Ser - 01/20/2004 10:15 AM CDT [id number] Colleen Tolentino [address] [place] [phone] January 26, 2004 Dear Colleen Tolentino, I am happy to inform you that your recent cervical cancer screening test (PAP smear) was normal. Preventative screening such as this helps insure your health for years to come. Congratulations for taking care of yourself! Please contact my office if you have any further questions. [phone]. Sincerely, Thuy Agarwal C.N.P OBSTETRICS/GYNECOLOGY [facility] Source: [facility] Document Id: [id number] documented in this encounter Plan of Treatment Not on filedocumented as of this encounter Visit Diagnoses Not on filedocumented in this encounter
--- OUTSIDE RECORDS SUMMARY | 2022-07-10 12:28 | XMS_ITS | Encounter Summary ---
:1955 Author Organization [facility] Address [address] [place] [address] Care Team Providers Name Role Phone Unavailable Primary Care Provider Unavailable Encounter Details Date Type Department Care Team Description 02/19/2004 Hospital Encounter [facility]X [facility] Provider, [facility] Social History Tobacco Use Types Packs/Day [...] How often do you attend restorationist or advent More than 4 time s [...] Provider Ser - 02/19/2004 9:30 AM CDT [id number] Date of Surgery: 02/23/04Type of Anticipated Surgery: [...] yesMD Signatu re: Deyanira Weaver M.D . [facility] IC Source: [facility] RWHXTRANSXSYS Document Id: [id number] documented in this encounter Plan of Treatment Not on filedocumented as of this encounter Visit Diagnoses Not on filedocumented in this encounter
--- OUTSIDE RECORDS SUMMARY | 2022-07-10 12:28 | XMS_ITS | Encounter Summary ---
:[address] [facility] Address [address] [place] [address] Care Team Providers Name Role Phone Unavailable Primary Care Provider Unavailable Encounter Details Date Type Department Care Team Description 07/11/2005 Hospital Encounter [facility] Yulissa Lopez, OSMANI N, C.N.P. [address] [place], [place] [phone] (Wo rk) Social History [...] How often do you attend adventism or samaritan More than 4 time s [...] C.N.P., R.N. - 07/11/2005 11:15 AM CST [id number] Colleen is a 50 year old postmenopausal woman here for her annual exam. She has been menopausal sinceage 45. She is not on HRT. She would like to continue with this plan. She denies any vaginal bleeding. Colleen is sexually active with her and denies dyspareunia. She denies problems with incontinence. Her bowels are regular . Adopted 2 boys from [facility], works 1 day/week in [employer]. For exercise, shegoes to [employer] and walks. She takes vitamins. 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 Source: [facility] Document Id: [id number] Electronically signed by Conversion, [facility] Singer Songwriter [id number] at 01/22/2017 9:59 PM CDT documented in this encounter Miscellaneous Notes Miscellaneous - Conversion, Historical Provider Ser - 07/11/2005 11:15 AM SCHEDULE CHECKER [id number] Colleen Tolentino [address] [place] [phone] July 17, 2005 Dear Colleen Tolentino, I am happy to inform you that your recent cervical cancer screening test (PAP smear) was normal. Preventative screening such as this helps insure your health for years to come. Congratulations for taking care of yourself! Please contact my office if you have any further questions. [phone]. Sincerely, Yulissa Finn RN, SALES AND MARKETING ASSOCIATE OBSTETRICS/GYNECOLOGY [facility] Source: [facility] Document Id: [id number] Miscellaneous - Yulissa Finn C.NNaomiP., R.N. - 07/11/2005 11:15 AM CST [id number] Colleen Tolentino [address] [place] [phone] July 18, 2005 [id number] Dear Ms. Tolentino: I am writing to [...] or problems, please contact our office at [phone]. Sincerely, Yulissa Finn RN, SALES AND MARKETING ASSOCIATE Obstetrics and Gynecology Department [facility] Source: [facility] RWHXTRANSXRTFSYS Document Id: [id number] Electronically signed by Conversion, [facility] Singer Songwriter [id number] at 01/22/2017 9:59 PM CDT documented in this encounter Plan of Treatment Not on filedocumented as of this encounter Visit Diagnoses Not on filedocumented in this encounter
--- OUTSIDE RECORDS SUMMARY | 2022-07-10 12:28 | XMS_ITS | Encounter Summary ---
:1955 Author Organization [facility] Address [address] [place] [address] Care Team Providers Name Role Phone Unavailable [...] How often do you attend denominational or mosque More than 4 time s [...]
--- OUTSIDE RECORDS SUMMARY | 2022-07-10 12:28 | XMS_ITS | Encounter Summary ---
:1955 Author Organization [facility] Address [address] [place] [address] Care Team Providers Name Role Phone Unavailable Primary Care Provider Unavailable Encounter Details Date Type Department Care Team Description 02/15/2004 Hospital Encounter [facility] ORTHO [...] often do you attend roman catholic or mu-ism More than 4 time s [...] Provider Ser - 02/15/2004 9:45 AM CDT [id number] Addended by: PANDA CALDWELL on: 02/19/2004,2:28 PM Comment: Unit Controller.Modules accepted: Amarilis tomlinson NotesThe individual is here [...] future. Tommy Georges M.D./rvD: 02/17/2004T: 02/19/2004 Source: [facility] RWHXTRANSXSYS Document Id: [id number] documented in this encounter Plan of Treatment Not on filedocumented as of this encounter Visit Diagnoses Not on filedocumented in this encounter
--- OUTSIDE RECORDS SUMMARY | 2022-07-10 12:28 | XMS_ITS | Encounter Summary ---
:[address] [facility] Address [address] [place] [address] Care Team Providers Name Role Phone Unavailable Primary Care Provider Unavailable Encounter Details Date Type Department Care Team Description 09/06/2005 Hospital Encounter HX [facility] PODIATRY Ana Felix D.P.M. [address] [place] [phone] (Wo rk) Social History Tobacco Use [...] How often do you attend anabaptist or christian More than 4 time s [...] Saucedo D.P.M. - 09/06/2005 9:45 AM CST [id number] SUBJECTIVE: Colleen presents to clinic for vegetable picker of custom functional orthotics. OBJECTIVE: The [...] understanding to infromation discussed this visit. Source: [facility] Document Id: [id number] Electronically signed by Conversion, [facility] Junior Systems Engineer [id number] at 01/22/2017 3:22 PM CDT documented in this encounter Plan of Treatment Not on filedocumented as of this encounter Visit Diagnoses Not on filedocumented in this encounter
--- OUTSIDE RECORDS SUMMARY | 2022-07-10 12:28 | XMS_ITS | Encounter Summary ---
:1955 Author Organization [facility] Address [address] [place] [address] Care Team Providers Name Role Phone Unavailable Primary Care Provider Unavailable Encounter Details Date Type Department Care Team Description 03/03/2004 Hospital Encounter HX [facility] ORTH[facility] Provider, Histor ical Social [...] How often do you attend advent or confucianist More than 4 time s [...]
--- OUTSIDE RECORDS SUMMARY | 2022-07-10 12:28 | XMS_ITS | Encounter Summary ---
:1955 Author Organization [facility] Address [address] [place] [address] Care Team Providers Name Role Phone Unavailable Primary Care Provider Unavailable Encounter Details Date Type Department Care Team Description 02/18/2004 Hospital Encounter [facility] Provider, [facility] Social History Tobacco Use Types [...] How often do you attend synagogue or anabaptist More than 4 time s [...]
--- OUTSIDE RECORDS SUMMARY | 2022-07-10 12:28 | XMS_ITS | Encounter Summary ---
:1955 Author Organization [facility] Address [address] [place] [address] Care Team Providers Name Role Phone Unavailable Primary Care Provider Unavailable Encounter Details Date Type Department Care Team Description 08/24/2004 Hospital En[facility] Yulissa Lopez, OSMANI N, C.N.P. [address] [place], [place] [phone] (Wo rk) Social History [...] How often do you attend sikh or shinto More than 4 time s [...] C.NJulia, R.N. - 08/24/2004 12:00 AM CST [id number] Date: 08/24/2004 Name: Colleen Tolentino Birthdate: 1955 Soc.Sec.No: [id number] Colleen, Our records show you were due to have your cholesterol level checked in July. Please let me knowif you are still interested in having this done and I will renew the order for you. Thanks. Yulissa Finn RN, CORRUGATOR OPERATOR OBSTETRICS/GYNECOLOGY [facility] Source: [facility] RWHXTRANSXRTFSYS Document Id: [id number] documented in this encounter Plan of Treatment Not on filedocumented as of this encounter Visit Diagnoses Not on filedocumented in this encounter
--- OUTSIDE RECORDS SUMMARY | 2022-07-10 12:28 | XMS_ITS | Encounter Summary ---
:1955 Author Organization [facility] Address [address] [place] [address] Care Team Providers Name Role Phone Unavailable [...] How often do you attend spiritism or nondenominational More than 4 time s [...] Provider Ser - 02/23/2004 12:00 AM CDT [id number] Abstracted by NATALY Low Raw Sugar Cutter on 02/25/2004 [facility] [place] [phone], YVONNE : 53Medical Record Number: [id number] Number: SSSMattcyrus Georges M.D.02/23/04 PROCEDURE/OPERATIVE REPORTPREOPERATIVE DIAGNOSIS:Symptomatic [...] condition having tolerate d surgery well.Sanjay Georges M.D./da: 02/23/04T: 02/24/04 Source: [facility] RWHXTRANSXSYS Document Id: [id number] documented in this encounter Plan of Treatment Not on filedocumented as of this encounter Visit Diagnoses Not on filedocumented in this encounter
--- OUTSIDE RECORDS SUMMARY | 2022-07-10 12:28 | XMS_ITS | Encounter Summary ---
:1955 Author Organization [facility] Address [address] [place] [address] Care Team Providers Name Role Phone Unavailable Primary Care Provider Unavailable Encounter Details Date Type Department Care Team Description 08/11/2005 Hospital Encounter HX [facility] POD[facility] Ana Felix D.P.M. [address] [place] [phone] (Wo rk) Social History Tobacco Use [...] How often do you attend nondenominational or advent More than 4 time s [...] Saucedo, Loan.P.M. - 08/11/2005 11:00 AM CST [id number] SUBJECTIVE: Colleen is a 50 year old [...] and bilateral metatarsal pads. Prescription sent to [place]. Assessmentfor Colleen will be ongoing with changes [...] understanding to information discussed this visit. Source: [facility] RWMCHXTRANSXRTFSYS Document Id: [id number] Electronically signed by Conversion, [facility] Canadian Bacon Tier [id number] at 01/22/2017 9:09 PM CDT documented in this encounter Plan of Treatment Not on filedocumented as of this encounter Visit Diagnoses Not on filedocumented in this encounter
--- OUTSIDE RECORDS SUMMARY | 2022-07-10 12:29 | XMS_ITS | Encounter Summary ---
:1955 Author Organization [facility] Address [address] [place] [address] Care Team Providers Name Role Phone Unavailable [...] How often do you attend yazidi or advent More than 4 time s [...]
--- OUTSIDE RECORDS SUMMARY | 2022-07-10 12:29 | XMS_ITS | Encounter Summary ---
:1955 Author Organization [facility] Address [address] [place] [address] Care Team Providers Name Role Phone Unavailable Primary Care Provider Unavailable Encounter Details Date Type Department Care Team Description 07/08/2002 Hospital Encounter [facility] PODIATRY Provider, His torical Social [...] How often do you attend congregation or moravian More than 4 time s [...] Provider Ser - 07/08/2002 9:30 AM CST [id number] Addended by: CORY VAZ on: 07/14/2002,12:47 PMModules accepted: Order Summary, Progress NotesYv germain Tolentino presents to clinic for seed cone picker of orthotics. Colleen states her feet [...] with any pr oblems or questions. Source: [facility] RWHXTRANSXSYS Document Id: [id number] documented in this encounter Plan of Treatment Not on filedocumented as of this encounter Visit Diagnoses Not on filedocumented in this encounter
--- OUTSIDE RECORDS SUMMARY | 2022-07-10 12:29 | XMS_ITS | Encounter Summary ---
:1955 Author Organization [facility] Address [address] [place] [address] Care Team Providers Name Role Phone Unavailable Primary Care Provider Unavailable Encounter Details Date Type Department Care Team Description 11/04/2002 Hospital Encounter [facility] DER[facility] Provider, Histori reilly Social History [...] How often do you attend amish or muslim More than 4 time s [...]
--- OUTSIDE RECORDS SUMMARY | 2022-07-10 12:29 | XMS_ITS | Encounter Summary ---
:1955 Author Organization [facility] Address [address] [place] [address] Care Team Providers Name Role Phone Unavailable [...] How often do you attend quaker or restorationism More than 4 time s [...] Provider Ser - 11/14/2002 12:00 AM CST [id number] >> MARKIE Taylor Nov 14, 2002 10:57 AM >> CALL RECEIVED. Contact: I called her, went over the path report. She has an appt with her Derm MD in 10 days or so, says the hand condition is getting better. Source: [facility] RWHXTRANSXSYS Document Id: [id number] documented in this encounter Plan of Treatment Not on filedocumented as of this encounter Visit Diagnoses Not on filedocumented in this encounter
--- OUTSIDE RECORDS SUMMARY | 2022-07-10 12:29 | XMS_ITS | Encounter Summary ---
:1955 Author Organization [facility] Address [address] [place] [address] Care Team Providers Name Role Phone Unavailable [...] often do you attend jehovah's witness or temple More than 4 time s [...]
--- OUTSIDE RECORDS SUMMARY | 2022-07-10 12:29 | XMS_ITS | Encounter Summary ---
:1955 Author Organization [facility] Address [address] [place] [address] Care Team Providers Name Role Phone Unavailable Primary Care Provider Unavailable Encounter Details Date Type Department Care Team Description 01/07/[address] [facility] PEDIATRIC Geovani Aj M.D. [address] [place] [phone] (Wo rk) Social History Tobacco [...] How often do you attend mormon or temple More than 4 time s [...] Provider Ser - 01/07/2003 1:30 PM CDT [id number] The patient is seen today for application of T.R.U.E TEST patches. Will return in 24h for removal an d reading. Source: [facility] RWHXTRANSXSYS Document Id: [id number] documented in this encounter Plan of Treatment Not on filedocumented as of this encounter Visit Diagnoses Not on filedocumented in this encounter
--- OUTSIDE RECORDS SUMMARY | 2022-07-10 12:29 | XMS_ITS | Encounter Summary ---
:1955 Author Organization [facility] Address [address] [place] [address] Care Team Providers Name Role Phone Unavailable Primary Care Provider Unavailable Encounter Details Date Type Department Care Team Description 01/08/2003 Hospital Encounter [facility] INTERNMED Geovani Aj M.D. [address] [place] [phone] (Wo rk) Social History Tobacco [...] How often do you attend gnosticist or caodaism More than 4 time s [...] Provider Ser - 01/08/2003 1:00 PM CDT [id number] The patient is seen today in [facility] for removal of her patch tests. After removal there ap peared to be no reactions except for some mild gen redness under the tape. Will return in 48h for fi nal reading. Source: [facility] RWHXTRANSXSYS Document Id: [id number] documented in this encounter Plan of Treatment Not on filedocumented as of this encounter Visit Diagnoses Not on filedocumented in this encounter
--- OUTSIDE RECORDS SUMMARY | 2022-07-10 12:29 | XMS_ITS | Encounter Summary ---
:1955 Author Organization [facility] Address [address] [place] [address] Care Team Providers Name Role Phone Unavailable [...] Provider Ser - 11/07/2002 11:00 AM CST [id number] Came in for punch biopsy. Has psoriasis [...] can have one of the nurses in [facility] remove it, where Tiago hansen works. [facility]: [facility] Document Id: [id number] documented in this encounter Plan of Treatment Not on filedocumented as of this encounter Visit Diagnoses Not on filedocumented in this encounter
--- OUTSIDE RECORDS SUMMARY | 2022-07-10 12:29 | XMS_ITS | Encounter Summary ---
:1955 Author Organization [facility] Address [address] [place] [address] Care Team Providers Name Role Phone Unavailable [...] How often do you attend yazidi or alevism More than 4 time s [...]
--- OUTSIDE RECORDS SUMMARY | 2022-07-10 12:29 | XMS_ITS | Encounter Summary ---
:1955 Author Organization [facility] Address [address] [place] [address] Care Team Providers Name Role Phone Unavailable Primary Care Provider Unavailable Encounter Details Date Type Department Care Team Description 02/03/2003 Hospital Encounter [facility] DERM Provider, Histori reilly Social [...] How often do you attend adventist or roman catholic More than 4 time [...]
--- OUTSIDE RECORDS SUMMARY | 2022-07-10 12:29 | XMS_ITS | Encounter Summary ---
:1955 Author Organization [facility] Address [address] [place] [address] Care Team Providers Name Role Phone Unavailable Primary Care Provider Unavailable Encounter Details Date Type Department Care Team Description 02/26/2003 Hospital Encounter [facility] PODIATRY Provider, His torical Social History [...] How often do you attend scientology or roman catholic More than 4 time [...]
--- OUTSIDE RECORDS SUMMARY | 2022-07-10 12:29 | XMS_ITS | Encounter Summary ---
:1955 Author Organization [facility] Address [address] [place] [address] Care Team Providers Name Role Phone Unavailable Primary Care Provider Unavailable Encounter Details Date Type Department Care Team Description 11/28/2002 Hospital Encounter [facility] DERM Provider, Histori reilly Social History Tobacco [...] How often do you attend jewish or hindu More than 4 time s [...]
--- OUTSIDE RECORDS SUMMARY | 2022-07-10 12:29 | XMS_ITS | Encounter Summary ---
:1955 Author Organization [facility] Address [address] [place] [address] Care Team Providers Name Role Phone Unavailable Primary Care Provider Unavailable Encounter Details Date Type Department Care Team Description 12/26/2002 Hospital Encounter [facility] Geovani Aj M.D. 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 Rubio of [facility], who initially thought she might have psoriasis [...] further. Juan Aj M.D./mpD: 12/26/02T: 12/30/02 Source: [facility] RWHXTRANSXSYS Document Id: [id number] documented in this encounter Plan of Treatment Not on filedocumented as of this encounter Visit Diagnoses Not on filedocumented in this encounter
--- OUTSIDE RECORDS SUMMARY | 2022-07-10 12:29 | XMS_ITS | Encounter Summary ---
:1955 Author Organization [facility] Address [address] [place] [address] Care Team Providers Name Role Phone Unavailable Primary Care Provider Unavailable Encounter Details Date Type Department Care Team Description 01/15/2004 Hospital Encounter [facility]X [facility] Ra kathleen Sharma, P.A.-CNaomi [address] [place] [phone] (Wo rk) Social History Tobacco Use [...] Provider Ser - 01/15/2004 1:30 PM CDT [id number] SUBJECTIVE:Colleen is a 48 year old female [...] hin layer of hydrocortisone 1% cautiously. Source: [facility] RWHXTRANSXSYS Document Id: [id number] documented in this encounter Plan of Treatment Not on filedocumented as of this encounter Visit Diagnoses Not on filedocumented in this encounter
--- OUTSIDE RECORDS SUMMARY | 2022-07-10 12:29 | XMS_ITS | Encounter Summary ---
:1955 Author Organization [facility] Address [address] [place] [address] Care Team Providers Name Role Phone Unavailable [...] often do you attend roman catholic or restoration More than 4 time s [...]
--- OUTSIDE RECORDS SUMMARY | 2022-07-10 12:29 | XMS_ITS | Encounter Summary ---
:1955 Author Organization [facility] Address [address] [place] [address] Care Team Providers Name Role Phone Unavailable Primary Care Provider Unavailable Encounter Details Date Type Department Care Team Description 10/02/2002 Hospital Encounter HX [facility] DERM Provider, Histori [...] How often do you attend gnosticism or advent More than 4 time s [...]
--- OUTSIDE RECORDS SUMMARY | 2022-07-10 12:30 | XMS_ITS | Encounter Summary ---
:1955 Author Organization [facility] Address [address] [place] [address] Care Team Providers Name Role Phone Unavailable [...] How often do you attend scientology or orthodox More than 4 time s [...]
--- OUTSIDE RECORDS SUMMARY | 2022-07-10 12:30 | XMS_ITS | Encounter Summary ---
:1955 Author Organization [facility] Address [address] [place] [address] Care Team Providers Name Role Phone Unavailable [...] How often do you attend confucianism or mormonism More than 4 time s [...] Historical Provider Ser - 10/31/2001 12:00 AM HVAC JOURNEYMAN [id number] Addended by: DONAVAN CONTE on: 11/07/2001,3:06 PMModules accepted: Order SummaryAddended by: DONAVAN KHAN on: 11/04/2001,10:25 AMModules accepted: Order Summary*-*-*-*-* SEE SCANNED REPORT *-*-*- *-* Source: [facility] RWHXTRANSXSYS Document Id: [id number] documented in this encounter Plan of Treatment Not on filedocumented as of this encounter Visit Diagnoses Not on filedocumented in this encounter
--- OUTSIDE RECORDS SUMMARY | 2022-07-10 12:30 | XMS_ITS | Encounter Summary ---
:1955 Author Organization [facility] Address [address] [place] [address] Care Team Providers Name Role Phone Unavailable Primary Care Provider Unavailable Encounter Details Date Type Department Care Team Description 01/30/2002 Hospital Encounter HX [facility] Danya Salinas M.D. [address] [place] [phone] (Wo rk) Social History Tobacco [...] Provider Ser - 01/30/2002 12:00 AM CDT [id number] >> COLLEEN TILLMAN [facility] Jan 30, 2002 9:06 AM >> CALL RECEIVED. Contact: Accepting this Rx will FAX it directly to the pharmacy. thank you Danya. Source: [facility] RWHXTRANSXSYS Document Id: [id number] documented in this encounter Plan of Treatment Not on filedocumented as of this encounter Visit Diagnoses Not on filedocumented in this encounter
--- OUTSIDE RECORDS SUMMARY | 2022-07-10 12:30 | XMS_ITS | Encounter Summary ---
:1955 Author Organization [facility] Address [address] [place] [address] Care Team Providers Name Role Phone Unavailable [...] How often do you attend pentecostalism or methodist More than 4 time s [...] Historical Provider Ser - 10/31/2001 12:00 AM SIEBEL CONSULTANT [id number] Abstracted by NATALY Tanyard Worker on [address] [place], [place] [id number] [place], [place] [id number] .A. Eich, M.D.Room No. [facility] Number: [id number], YVONNE : [id number] IONThe individual is an active 46-year-old woman who works at the [employer]. On t he day of admission [...] compressed. She will follow up per plan. MARGARET/[id number]. 12-15-01 Chico Georges M.D. Source: [facility] RWHXTRANSXSYS Document Id: [id number] documented in this encounter Plan of Treatment Not on filedocumented as of this encounter Visit Diagnoses Not on filedocumented in this encounter
--- OUTSIDE RECORDS SUMMARY | 2022-07-10 12:30 | XMS_ITS | Encounter Summary ---
:1955 Author Organization [facility] Address [address] [place] [address] Care Team Providers Name Role Phone Unavailable Primary Care Provider Unavailable Encounter Details Date Type Department Care Team Description 11/21/2001 Hospital Encounter [facility] ORTHO Sanjay Georges M .D. Social [...] How often do you attend episcopal or scientologist More than 4 time s [...] Provider Ser - 11/21/2001 11:15 AM CST [id number] Addended by: DERICK GANDHI on: 11/29/2001,2:08 PM Comment: Bioinformatics Programmer.Modules accepted: Jose J josé Colleen Wiggins [id number] 11-21-01The individual is here for a follow [...] per plan.Sanjay Georges M.D./Balbina: 11-22-01T: 11-27-01 Source: [facility] RWMCHXTRANSXSYS Document Id: [id number] documented in this encounter Plan of Treatment Not on filedocumented as of this encounter Visit Diagnoses Not on filedocumented in this encounter
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
--- OUTSIDE RECORDS SUMMARY | 2022-07-10 12:30 | XMS_ITS | Encounter Summary ---
:1955 Author Organization [facility] Address [address] [place] [address] Care Team Providers Name Role Phone Unavailable Primary Care Provider Unavailable Encounter Details Date Type Department Care Team Description 12/17/2001 Hospital Encounter HX [facility] Iraj Haile M.D. [address] [place] [address] 65 Social History Tobacco Use Types Packs/Day [...] How often do you attend holiness or voodoo More than 4 time s [...] Provider Ser - 12/17/2001 11:45 AM CDT [id number] Addended by: CORY VAZ on: 12/25/2001,2:21 PMModules [...] from now.Iraj Mobley M.D./Balbina: 2001T: 12/24/2001 Source: [facility] RWHXTRANSXSYS Document Id: [id number] documented in this encounter Plan of Treatment Not on filedocumented as of this encounter Visit Diagnoses Not on filedocumented in this encounter
--- OUTSIDE RECORDS SUMMARY | 2022-07-10 12:30 | XMS_ITS | Encounter Summary ---
:1955 Author Organization [facility] Address [address] [place] [address] Care Team Providers Name Role Phone Unavailable Primary Care Provider Unavailable Encounter Details Date Type Department Care Team Description 05/26/2002 Hospital Encounter [facility] EHW Provider, Historic al Social [...]
--- OUTSIDE RECORDS SUMMARY | 2022-07-10 12:30 | XMS_ITS | Encounter Summary ---
:1955 Author Organization [facility] Address [address] [place] [address] Care Team Providers Name Role Phone Unavailable [...] How often do you attend mandaen or pentecostalism More than 4 time s [...]
--- OUTSIDE RECORDS SUMMARY | 2022-07-10 12:30 | XMS_ITS | Encounter Summary ---
:1955 Author Organization [facility] Address [address] [place] [address] Care Team Providers Name Role Phone Unavailable Primary Care Provider Unavailable Encounter Details Date Type Department Care Team Description 11/08/2001 Hospital Encounter [facility] Sanjay Georges M .D. Social [...] How often do you attend orthodoxy or mormon More than 4 time s [...] Provider Ser - 11/08/2001 1:30 PM CST [id number] Addended by: CORY VAZ on: 12/25/2001,2:10 PMModules accepted: Order Summary, Progress NotesAdd ended by: BELLA FRANCO on: 11/18/2001,10:32 AM Comment: tranxModules accepted: Progress Notes Colleen Tolentino [id number] 11-08-01The individual is here for a follow [...] repeat x-rays.Sanjay Georges M.D./Balbina: 11-08-01T: 11-15-01 Source: [facility] RWHXTRANSXSYS Document Id: [id number] documented in this encounter Plan of Treatment Not on filedocumented as of this encounter Visit Diagnoses Not on filedocumented in this encounter
--- OUTSIDE RECORDS SUMMARY | 2022-07-10 12:30 | XMS_ITS | Encounter Summary ---
:1955 Author Organization [facility] Address [address] [place] [address] Care Team Providers Name Role Phone Unavailable Primary Care Provider Unavailable Encounter Details Date Type Department Care Team Description 01/07/2002 Hospital Encounter HX [facility] Iraj Haile M.D. [address] [place] [address] 65 Social History Tobacco Use Types Packs/Day [...] How often do you attend synagogue or anabaptism More than 4 time s [...] Provider Ser - 01/07/2002 11:30 AM CDT [id number] Addended by: ORLIN MUHAMMAD on: 01/10/2002,10:15 AM [...] point. Iraj Mobley M.D./rvD: 2T: 01/10/2002 Source: [facility] RWHXTRANSXSYS Document Id: [id number] documented in this encounter Plan of Treatment Not on filedocumented as of this encounter Visit Diagnoses Not on filedocumented in this encounter
--- OUTSIDE RECORDS SUMMARY | 2022-07-10 12:30 | XMS_ITS | Encounter Summary ---
:1955 Author Organization [facility] Address [address] [place] [address] Care Team Providers Name Role Phone Unavailable Primary Care Provider Unavailable Encounter Details Date Type Department Care Team Description 12/17/2001 Hospital Encounter HX [facility] Poonam Mosley ra, R.N. [address] [place], [place] [phone] Social History Tobacco Use [...] How often do you attend mormon or latter-day More than 4 time s [...] Provider Ser - 12/17/2001 12:00 AM CDT [id number] >> CROW Luevano Dec 17, 2001 12:19 PM >> CALL RECEIVED. Contact: cam walker dispensed to patient per dr. wu for follow up care of left ankle fracture. Source: [facility] RWHXTRANSXSYS Document Id: [id number] documented in this encounter Plan of Treatment Not on filedocumented as of this encounter Visit Diagnoses Not on filedocumented in this encounter
--- OUTSIDE RECORDS SUMMARY | 2022-07-10 12:30 | XMS_ITS | Encounter Summary ---
:1955 Author Organization [facility] Address [address] [place] [address] Care Team Providers Name Role Phone Unavailable Primary Care Provider Unavailable Encounter Details Date Type Department Care Team Description 07/15/2001 Hospital Encounter [facility] Ramesh Fuentes M.D. Social History Tobacco Use [...] How often do you attend shinto or evangelical More than 4 time s [...] Provider Ser - 07/15/2001 12:00 AM CST [id number] >> RAMESH PATINO Mon Jul 15, 2001 11:11 AM Mehrdad canas >> COLLEEN TILLMAN Mon Jul 15, 2001 9:50 AM >> CALL RECEIVED. Contact: Accepting this Rx will FAX it directly to the pharmacy. hot flashes interupting sleep. Source: [facility] RWHXTRANSXSYS Document Id: [id number] documented in this encounter Plan of Treatment Not on filedocumented as of this encounter Visit Diagnoses Not on filedocumented in this encounter
--- OUTSIDE RECORDS SUMMARY | 2022-07-10 12:30 | XMS_ITS | Encounter Summary ---
:1955 Author Organization [facility] Address [address] [place] [address] Care Team Providers Name Role Phone Unavailable [...] How often do you attend religious or lutheran More than 4 time s [...] Provider Ser - 03/26/2002 12:00 AM CDT [id number] >> MARKIE CHILDRESS SunMar 26, 2002 4:10 PM >> CALL RECEIVED. Contact: antoni bush has returned Source: [facility] RWHXTRANSXSYS Document Id: [id number] documented in this encounter Plan of Treatment Not on filedocumented as of this encounter Visit Diagnoses Not on filedocumented in this encounter
--- OUTSIDE RECORDS SUMMARY | 2022-07-10 12:30 | XMS_ITS | Encounter Summary ---
:1955 Author Organization [facility] Address [address] [place] [address] Care Team Providers Name Role Phone Unavailable [...] How often do you attend amish or temple More than 4 time s [...] Historical Provider Ser - 11/22/2001 12:00 AM INSIDE SALES PERSON [id number] Addended by: DONAVAN CONTE on: 12/02/2001,9:50 AMModules accepted: Order Summary, Progress Notes-- Abstracted by NATALY Rooney on 11/29/2001[facility] [place], [place] [id number]. Grabiel orozco M.D.Room No. [id number], YVONNE : 54PROCEDURE/OPERATIVE REPORTPREOP ERATIVE DIAGNOSIS:Left ankle [...] satisfactory condition having tolerated the surgery well. ROBLES:[id number]. 11-26 Zelda Georges M.D. Source: [facility] RWHXTRANSXSYS Document Id: [id number] documented in this encounter Plan of Treatment Not on filedocumented as of this encounter Visit Diagnoses Not on filedocumented in this encounter
--- OUTSIDE RECORDS SUMMARY | 2022-07-10 12:30 | XMS_ITS | Encounter Summary ---
:1955 Author Organization [facility] Address [address] [place] [address] Care Team Providers Name Role Phone Unavailable [...] How often do you attend cheondoism or samaritan More than 4 time s [...]
--- OUTSIDE RECORDS SUMMARY | 2022-07-10 12:30 | XMS_ITS | Encounter Summary ---
:1955 Author Organization [facility] Address [address] [place] [address] Care Team Providers Name Role Phone Unavailable Primary Care Provider Unavailable Encounter Details Date Type Department Care Team Description 01/07/2002 Hospital Encounter [facility] Poonam Almazan ra, RNaomiNNaomi [address] [place], [place] [phone] Social History Tobacco Use [...] How often do you attend mormon or scientologist More than 4 time s [...] Provider Ser - 01/07/2002 12:00 AM CDT [id number] Addended by: CORY VAZ on: 01/08/2002,3:23 PMModules accepted: Order Summarypt had xray done an d air cast was dispensed to pt per dr. wu. Source: [facility] RWHXTRANSXSYS Document Id: [id number] documented in this encounter Plan of Treatment Not on filedocumented as of this encounter Visit Diagnoses Not on filedocumented in this encounter
--- OUTSIDE RECORDS SUMMARY | 2022-07-10 12:30 | XMS_ITS | Encounter Summary ---
:1955 Author Organization [facility] Address [address] [place] [address] Care Team Providers Name Role Phone Unavailable Primary Care Provider Unavailable Encounter Details Date Type Department Care Team Description 06/03/2002 Hospital Encounter [facility] Provider, His torical Social [...] How often do you attend protestant or buddhist More than 4 time s [...] Provider Ser - 06/03/2002 11:30 AM CDT [id number] Addended by: SRAVANI MORAN on: 06/19/2002,1:06 PMModules [...] She will rtc in 3 weeks for flower buncher or picker. Source: [facility] RWHXTRANSXSYS Document Id: [id number] documented in this encounter Plan of Treatment Not on filedocumented as of this encounter Visit Diagnoses Not on filedocumented in this encounter
--- OUTSIDE RECORDS SUMMARY | 2022-07-10 12:30 | XMS_ITS | Encounter Summary ---
:1955 Author Organization [facility] Address [address] [place] [address] Care Team Providers Name Role Phone Unavailable [...] How often do you attend evangelical or sabianism More than 4 time s [...] Historical Provider Ser - 10/31/2001 12:00 AM MINING ENGINEER [id number] Abstracted by NATALY Rooney on [address] [place], [place] [id number] [place], [place] [id number] .Grabiel Georges M.D.[facility]. [facility] Number: [id number], Yvonne : 53PRO CEDURE/OPERATIONPREOPERATIVE DIAGNOSIS: Left ankle [...] placed obtaining ex cellent purchase and anatomic adventist. The medial side was approached. The ankle [...] condition having tolerated t he procedure well. MARGARET/[id number]. 12-15-01 Chico Georges M.D. Source: [facility] RWHXTRANSXSYS Document Id: [id number] documented in this encounter Plan of Treatment Not on filedocumented as of this encounter Visit Diagnoses Not on filedocumented in this encounter
--- OUTSIDE RECORDS SUMMARY | 2022-07-10 12:30 | XMS_ITS | Encounter Summary ---
:1955 Author Organization [facility] Address [address] [place] [address] Care Team Providers Name Role Phone Unavailable [...] How often do you attend worship or methodist More than 4 time s [...] Historical Provider Ser - 10/30/2001 12:00 AM RECORD LABEL INTERNSHIP [id number] Abstracted by NATALY Ore Miner Blasting on 11/05/[address] [id number].Jacobo Berry M.D.[facility]. [facility] Number: [id number], YVONNE : [id number] TION/HISTORY AND PHYSICALCHIEF COMPLAINT: Fall with left [...] on the right hand. Status post tonsillectomy. [place] t ooth extraction. MEDICATIONS: Celebrex 100 mg daily. Aspirin 81 mg daily. She takes Valerian and Brandyn's Wort. ALLERGIES: CEFTIN causing hives and facial swelling. SOCIAL HISTORY: Patient is . 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 She does not smoke or drink alcohol. [...] with Toradol and Demerol for pain. KIMBERLY/ [id number]. 10-31-01 Elijah Berry M.D. Source: [facility] RWHXTRANSXSYS Document Id: [id number] documented in this encounter Plan of Treatment Not on filedocumented as of this encounter Visit Diagnoses Not on filedocumented in this encounter
--- OUTSIDE RECORDS SUMMARY | 2022-07-10 12:30 | XMS_ITS | Encounter Summary ---
:1955 Author Organization [facility] Address [address] [place] [address] Care Team Providers Name Role Phone Unavailable Primary Care Provider Unavailable Encounter Details Date Type Department Care Team Description 06/03/2002 Hospital Encounter [facility] EHW Provider, Historic al Social [...] How often do you attend islam or synagogue More than 4 time s [...] Provider Ser - 06/03/2002 12:00 AM CDT [id number] >> COLLEEN Luevano Jun 03, 2002 10:59 AM >> CALL RECEIVED. Contact: opened in error [facility] Document Id: [id number] documented in this encounter Plan of Treatment Not on filedocumented as of this encounter Visit Diagnoses Not on filedocumented in this encounter
--- OUTSIDE RECORDS SUMMARY | 2022-07-10 12:30 | XMS_ITS | Encounter Summary ---
:1955 Author Organization [facility] Address [address] [place] [address] Care Team Providers Name Role Phone Unavailable [...]
--- OUTSIDE RECORDS SUMMARY | 2022-07-10 12:30 | XMS_ITS | Encounter Summary ---
:1955 Author Organization [facility] Address [address] [place] [address] Care Team Providers Name Role Phone Unavailable Primary Care Provider Unavailable Encounter Details Date Type Department Care Team Description 11/29/2001 Hospital Encounter [facility] Sanjay Georges M .D. Social History [...] Provider Ser - 11/29/2001 4:30 PM CDT [id number] Addended by: CORY VAZ on: 12/25/2001,2:19 PMModules accepted: Order Summary, Progress Rigoberto Elizabeth rinaldi LOSAddended by: DERICK GANDHI on: 12/06/2001,8:47 AM Comment: Certifed Refrigeration Operator.Modules accepted : Progress FelicitaColleen reyes [id number] 11-29-01The individual presents for follow up of [...] boot. Sanjay Georges M.D./Balbina: 11-29-01T: 12-04-01 Source: [facility] RWHXTRANSXSYS Document Id: [id number] documented in this encounter Plan of Treatment Not on filedocumented as of this encounter Visit Diagnoses Not on filedocumented in this encounter
--- OUTSIDE RECORDS SUMMARY | 2022-07-10 12:30 | XMS_ITS | Encounter Summary ---
:1955 Author Organization [facility] Address [address] [place] [address] Care Team Providers Name Role Phone Unavailable [...] How often do you attend denominational or jehovah's witness More than 4 time [...] Provider Ser - 06/04/2002 12:00 AM CDT [id number] >> MARKIE CHILDRESS SunJun 04, 2002 12:49 PM >> CALL RECEIVED. Contact: I called, left message re the chol, and pap. Source: [facility] RWHXTRANSXSYS Document Id: [id number] documented in this encounter Plan of Treatment Not on filedocumented as of this encounter Visit Diagnoses Not on filedocumented in this encounter
--- OUTSIDE RECORDS SUMMARY | 2022-07-10 12:30 | XMS_ITS | Encounter Summary ---
:1955 Author Organization [facility] Address [address] [place] [address] Care Team Providers Name Role Phone Unavailable Primary Care Provider Unavailable Encounter Details Date Type Department Care Team Description 07/15/2001 Hospital Encounter [facility] Silvia Fuentes M.D. Social History Tobacco [...] How often do you attend religion or protestant More than 4 time s [...]
--- OUTSIDE RECORDS SUMMARY | 2022-07-10 12:32 | XMS_ITS | Encounter Summary ---
:1955 Author Organization [facility] Address [address] [place] [address] Care Team Providers Name Role Phone Shelley Porter MD Primary Care Provider Unavailable Reason for Visit Reason Onset Date Comments Med Refill 01/25/2021 Encounter Details Date Type Department Care Team Description 01/25/2021 Refill Shelley Bates, Essential hypertension [address] [place] [address] Social History Tobacco Use Types Packs/Day Years [...] drinks on one occasion? No t asked Sex Assigned at Date Recorded Not [...] hypertension documented in this encounter Care Teams Policy Adviser Relationship Specialty Start Date End Date Shelley Porter MD PCP - General Family Medicine 04/19/20 documented as of this encounter
--- OUTSIDE RECORDS SUMMARY | 2022-07-10 12:32 | XMS_ITS | Encounter Summary ---
:1955 Author Organization [facility] Address [address] [place] [address] Care Team Providers Name Role Phone Shelley Porter MD Primary Care Provider Unavailable Encounter Details Date Type Department Care Team Description 10/06/2020 Lab Tarik López Mixed hyperlipidemia; [address] Essential hypertension KRISTINE Salas [address] Social History Tobacco Use Types [...] hypert ension Results for this RATE AM ENERGY RISK MANAGEMENT ANALYST procedure are i n the results section. LIPID PANEL Routine 10/06/2020 8:38 Mixed hyperlipidemia Resu lts for this AM ENERGY RISK MANAGEMENT ANALYST procedure are i n the results section. COMPREHENSIVE Routine 10/06/2020 8:38 Essential hypertension R esults for this METABOLIC PANEL AM ENERGY RISK MANAGEMENT ANALYST procedure ar e in the results section. documented in this encounter Results Glomerular filtration rate (GFR) (10/06/2020 8:38 AM ENERGY RISK MANAGEMENT ANALYST) P athologist Signature GFR >60 10/06/2020 [facility] 1:40 PM ENERGY RISK MANAGEMENT ANALYST [facility]ENTER [facility] >60 10/06/2020 [facility] Haitian GFR 1:40 PM [facility] Comment: GFR calculated from serum creatinine v alue Chronic Kidney Disease less than 60 mL/m in/1.73 m2 Kidney Failure less than 15 mL/min/1.73 m2 Note: effective 01/02/07 IDMS-Traceable MDRD Study Equation used. Specimen Anatomical Collection Method Collection Time Receive d Time (Source) Location / / Volume Laterality 10/06/2020 8:38 AM 8:38 ENERGY RISK MANAGEMENT ANALYST AM ENERGY RISK MANAGEMENT ANALYST Shelley Porter MD LAB BLOOD ORDERABLES Performing Organization Address City/State/ZIP Code Phon e Number [facility] [address] [place] [address] Comprehensive metabolic panel (10/06/2020 8:38 AM ENERGY RISK MANAGEMENT ANALYST) P athologist Signature Total Protein 7.5 6.3 - 8.2 10/06/2020 [facility] g/dL 1:40 PM [facility] Albumin, Serum 4.2 3.5 - 5.0 10/06/2020 [facility] g/dL 1:40 PM [facility] Total Bilirubin <0.7 0.1 - 1.0 10/06/2020 [facility] mg/dL 1:40 PM [facility] AST 29 8 - 43 U/L 10/06/2020 [facility] 1:40 PM [facility] Alkaline 99 38 - 128 10/06/2020 [facility] Phosphatase U/L 1:40 PM [facility] ALT (SGPT) 28 0 - 34 U/L 10/06/2020 [facility] 1:40 PM [facility] Sodium 138 135 - 145 10/06/2020 [facility] mEq/L 1:40 PM [facility] Potassium 4.0 3.5 - 5.1 10/06/2020 [facility] mEq/L 1:40 PM [facility] Chloride 104 98 - 107 10/06/2020 [facility] mEq/L 1:40 PM [facility] CO2 27 22 - 29 10/06/2020 [facility] mmol/L 1:40 PM [facility] BUN 14 5 - 25 10/06/2020 [facility] mg/dL 1:40 PM [facility] Creatinine 0.6 0.4 - 1.2 10/06/2020 [facility] mg/dL 1:40 PM [facility] Glucose 90 70 - 100 10/06/2020 [facility] mg/dL 1:40 PM [facility] Calcium, Total,S 8.6 8.4 - 10.2 10/06/2020 [facility] mg/dL 1:40 PM [facility] Specimen Anatomical Collection Method Collection Time Receive d Time (Source) Location / / Volume Laterality Blood 10/06/2020 8:38 AM ENERGY RISK MANAGEMENT ANALYST 12:47 PM ENERGY RISK MANAGEMENT ANALYST Shelley Porter MD LAB BLOOD ORDERABLES Performing Organization Address City/State/ZIP Code Phon e Number [facility] [address] [place] [address] (ABNORMAL) Lipid panel (10/06/2020 8:38 AM ENERGY RISK MANAGEMENT ANALYST) athologist Signature Cholesterol 241 (H) 0 - 199 10/06/2020 [facility] mg/dL 1:40 PM [facility] Comment: Recommended by National Cholesterol Education Program (ATP III) -------- Cholesterol Ranges -------- <200 ?Desirable 200-239 ? Borderline high >=240 ? High Triglycerides 68 0 - 149 mg/dL 10/06/2020 1:40 PM [facility] Comment: -------- TRIG Ranges -------- <150 ?Normal 150-199 ? Borderline high 200-499 ? High >=500 ? Very high HDL 47 40 - 250 mg/dL 10/06/2020 1:40 PM [facility] Comment: -------- HDL Ranges -------- <40 ?Low 40-59 ?Normal >=60 ? Optimal LDL Calculated 180 (H) 0 - 99 mg/dL 10/06/2020 1:40 PM ENERGY RISK MANAGEMENT ANALYST [facility] Comment: -------- LDL Ranges -------- <100 ? Optimal 100-129 ?Near optimal/above op timal 130-159 ?Borderline high 160-189 ?High >=190 ?Very high Fasting? Yes 10/06/2020 8:42 AM ENERGY RISK MANAGEMENT ANALYST [facility] Specimen Anatomical Collection Method Collection Time Receive d Time (Source) Location / / Volume Laterality Blood 10/06/2020 8:38 AM ENERGY RISK MANAGEMENT ANALYST 12:47 PM ENERGY RISK MANAGEMENT ANALYST Shelley Porter MD LAB BLOOD ORDERABLES Performing Organization Address City/State/ZIP Code Phon e Number [facility] [address] [place] [address] documented in this encounter Visit Diagnoses Diagnosis Mixed hyperlipidemia Essential hypertension Unspecified essential hypertension documented in this encounter Care Teams Assistant Store Leader Relationship Specialty Start Date End Date Shelley Porter MD PCP - General Family Medicine 04/19/20 documented as of this encounter
--- OUTSIDE RECORDS SUMMARY | 2022-07-10 12:32 | XMS_ITS | Encounter Summary ---
:1955 Author Organization [facility] Address [address] [place] [address] Care Team Providers Name Role Phone Irina Pham PROGRAM EVALUATOR, DISTRIBUTOR OF DIRECTORIES Primary Care Provider [phone] Reason for Visit Reason Onset Date Comments fax 06/12/2019 Encounter Details Date Type Department Care Team Description 06/12/2019 Telephone [place] Irina Pham, fax [address] PROGRAM EVALUATOR, DISTRIBUTOR OF DIRECTORIES [place], [place] [address] [address] [phone] [place], [place] [address] Social History Tobacco Use [...] CST Referral and face sheet faxed to [facility] radiology as requested. [employer] Telephone Encounter - Yuki Cornejo RN - 06/23/2019 1:47 PM CST Please refax referral. [employer] Telephone Encounter - Anabel Kimbrough LPN - 06/12/2019 11:49 AM CDT noted Telephone Encounter - Ana Mckenna - 06/12/2019 11:20 AM CDT Referral and face sheet faxed to [facility] radiology as requested. Telephone Encounter - Yuki Cornejo RN - 06/12/2019 11:09 AM CDT Please fax order to [place] Tarik López. documented in this encounter Plan of Treatment Not on filedocumented as of this encounter Visit Diagnoses Not on filedocumented in this encounter Care Teams Visual Effects Artist Relationship Specialty Start Date End Date Irina Pham, PROGRAM EVALUATOR, DISTRIBUTOR OF DIRECTORIES PCP - General Family Medicine 07/29/18 04/18/[address] [place] [address] [place] [id number] documented as of this encounter
--- OUTSIDE RECORDS SUMMARY | 2022-07-10 12:32 | XMS_ITS | Encounter Summary ---
:1955 Author Organization [facility] Address [address] [place] [address] Care Team Providers Name Role Phone Irina Pahm APRN, CNP Primary Care Provider [phone] Encounter Details Date Type Department Care Team Description 08/22/2019 Orders Only Tarik López Irina Pham Essential hypertension [address] M, JOE JUNG (Primary Dx) [place] [address] [facility] [address] [place] [address] Social History Tobacco Use Types Packs/Day Years [...] hypertension documented in this encounter Care Teams Icd 9 Coder Relationship Specialty Start Date End Date Irina Pham APRN, CNP PCP - General Family Medicine 07/29/18 04/18/20 [address] [place] [address] documented as of this encounter
--- OUTSIDE RECORDS SUMMARY | 2022-07-10 12:32 | XMS_ITS | Encounter Summary ---
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 She does have an upcoming appointment scheduled with cardiology. NEL BUSINESS MANAGER documented in this encounter Plan of Treatment Not on filedocumented as of this encounter Visit Diagnoses Not on filedocumented in this encounter Care Teams Joint Machine Operator Relationship Specialty Start Date End Date Irina Pham APRN, MACHINE LEATHER TRIMMER PCP - General Family Medicine 07/29/18 04/18/20 [address] [facility] [place] [address] documented as of this encounter
--- OUTSIDE RECORDS SUMMARY | 2022-07-10 12:32 | XMS_ITS | Encounter Summary ---
:1955 Author Organization [facility] Address [address] [place] [address] Care Team Providers Name Role Phone Shelley Porter MD Primary Care Provider Unavailable Reason for Visit Reason Comments Establish Care Encounter Details Date Type Department Care Team Description 04/29/2020 Office Visit Volodymyr López Shelley Porter Essential hypertension (Prim dylan Dx); [address] MD Jacobo Mixed hyperlipidemia; [place] Osteopenia, unspecified location [id number] Social History Tobacco Use Types Packs/Day Years [...] documented in this encounter Patient Instructions Patient InstructionsFrances Jacobo Porter MD - 04/29/2020 10:20 AM CDT [...] at age 54 if you have a 59-seax-luve history of smoking and currently smoke or [...] 09/01/2016 Document Revised: 09/26/2018 Document Reviewed: 06/06/2016 [employer] Patient Education ?? 2019 [employer]. documented in this encounter Progress Notes Shelley [...] was last seen in clinic by primary school childcare attendant in 05/2019 and subsequently evaluated by cardiology on 08/2019. She had an ec hocardiogram performed in June 2019 which showed some mild increased concentric left ventricularthickness, left ventricular ejection fraction estimated to be 65 to 70%, no regional wall abnormalities, no significant valvular disease and normal right ventricular function and size. She underwent carotid artery ultrasound at [facility] in [facility] which showed an well plaque. Labs were [...] me she sees a homeopathic doctor in [place] named Edita Olvera. She gets her routine screening tests at [place] and has an upcoming mammogram. Her mom [...] colonoscopy was in January 2011 at [facility] and was normal with recommended repeat in [...] for repeat colonoscopy in January 2011 at [facility] in [facility]. She will complete mammogram for breast cancer [...] at age 54 if you have a 20-zjyw-hlgy history of smoking and currently smoke or [...] 09/01/2016 Document Revised: 09/26/2018 Document Reviewed: 06/06/2016 [employer] Interactive Patient Education ?? 2019 [employer]. documented in this encounter Plan of Treatment Not on filedocumented as of this encounter Results (ABNORMAL) Lipid panel (10/06/2020 8:38 AM COMMERCIAL MAKEUP ARTIST) athologist Signature Cholesterol 241 (H) 0 - 199 10/06/2020 [facility] mg/dL 1:40 PM [facility] Comment: Recommended by National Cholesterol Education Program (ATP III) -------- Cholesterol Ranges -------- <200 ?Desirable 200-239 ? Borderline high >=240 ? High Triglycerides 68 0 - 149 mg/dL 10/06/2020 1:40 PM [facility] Comment: -------- TRIG Ranges -------- <150 ?Normal 150-199 ? Borderline high 200-499 ? High >=500 ? Very high HDL 47 40 - 250 mg/dL 10/06/2020 1:40 PM [facility] Comment: -------- HDL Ranges -------- <40 ?Low 40-59 ?Normal >=60 ? Optimal LDL Calculated 180 (H) 0 - 99 mg/dL 10/06/2020 1:40 PM [facility] Comment: -------- LDL Ranges -------- <100 ? Optimal 100-129 ?Near optimal/above op timal 130-159 ?Borderline high 160-189 ?High >=190 ?Very high Fasting? Yes 10/06/2020 8:42 AM [facility] Specimen Anatomical Collection Method Collection Time Receive d Time (Source) Location / / Volume Laterality Blood 10/06/2020 8:38 AM COMMERCIAL MAKEUP ARTIST 12:47 PM COMMERCIAL MAKEUP ARTIST Shelley Porter MD LAB BLOOD ORDERABLES Performing Organization Address City/State/ZIP Code Phon e Number [facility] [address] [place] [address] Comprehensive metabolic panel (10/06/2020 8:38 AM COMMERCIAL MAKEUP ARTIST) P athologist Signature Total Protein 7.5 6.3 - 8.2 10/06/2020 [facility] g/dL 1:40 PM [facility] Albumin, Serum 4.2 3.5 - 5.0 10/06/2020 [facility] g/dL 1:40 PM [facility] Total Bilirubin <0.7 0.1 - 1.0 10/06/2020 [facility] mg/dL 1:40 PM [facility] AST 29 8 - 43 U/L 10/06/2020 [facility] 1:40 PM [facility] Alkaline 99 38 - 128 10/06/2020 [facility] Phosphatase U/L 1:40 PM [facility] ALT (SGPT) 28 0 - 34 U/L 10/06/2020 [facility] 1:40 PM [facility] Sodium 138 135 - 145 10/06/2020 [facility] mEq/L 1:40 PM [facility] Potassium 4.0 3.5 - 5.1 10/06/2020 [facility] mEq/L 1:40 PM [facility] Chloride 104 98 - 107 10/06/2020 [facility] mEq/L 1:40 PM [facility] CO2 27 22 - 29 10/06/2020 [facility] mmol/L 1:40 PM [facility] BUN 14 5 - 25 10/06/2020 [facility] mg/dL 1:40 PM [facility] Creatinine 0.6 0.4 - 1.2 10/06/2020 [facility] mg/dL 1:40 PM [facility] Glucose 90 70 - 100 10/06/2020 [facility] mg/dL 1:40 PM [facility] Calcium, Total,S 8.6 8.4 - 10.2 10/06/2020 [facility] mg/dL 1:40 PM [facility] Specimen Anatomical Collection Method Collection Time Receive d Time (Source) Location / / Volume Laterality Blood 10/06/2020 8:38 AM COMMERCIAL MAKEUP ARTIST 12:47 PM COMMERCIAL MAKEUP ARTIST Shelley Porter MD LAB BLOOD ORDERABLES Performing Organization Address City/State/ZIP Code Phon e Number [facility] [address] [place] [address] documented in this encounter Visit Diagnoses Diagnosis Essential hypertension - Primary Unspecified essential hypertension Mixed hyperlipidemia Osteopenia, unspecified location documented in this encounter Care Teams Senior Control Systems Engineer Relationship Specialty Start Date End Date Shelley Porter MD PCP - General Family Medicine 04/19/20 documented as of this encounter
--- OUTSIDE RECORDS SUMMARY | 2022-07-10 12:32 | XMS_ITS | Encounter Summary ---
:1955 Author Organization [facility] Address [address] [place] [address] Care Team Providers Name Role Phone Irina Pham APRN, JOE Primary Care Provider [phone] Reason for Visit Reason Comments Blood Pressure Check Encounter Details Date Type Department Care Team Description 10/03/2019 Clinical Support [place] [address] [place], [place] [address] Social History Tobacco Use [...] Comments Blood Pressure 139/70 10/03/2019 2:51 PM CONSUMER SERVICES CONSULTANT Pulse 78 10/03/2019 2:51 PM CONSUMER SERVICES CONSULTANT Temperature - - Respiratory Rate - - Oxygen Saturation - - Inhaled Oxygen Concentration - - Weight - - Height - - Body Mass Index - - documented in this encounter Plan of Treatment Not on filedocumented as of this encounter Visit Diagnoses Not on filedocumented in this encounter Care Teams Calcine Furnace Tender Relationship Specialty Start Date End Date Irina Pham APRN, PARTS SALES ADVISOR PCP - General Family Medicine 07/29/18 04/18/20 [address] [place] [address] documented as of this encounter
--- OUTSIDE RECORDS SUMMARY | 2022-07-10 12:32 | XMS_ITS | Encounter Summary ---
:1955 Author Organization [facility] Address [address] [place] [address] Care Team Providers Name Role Phone Shelley Porter MD Primary Care Provider Unavailable Reason for Visit Reason Onset Date Comments med refills 01/25/2021 Encounter Details Date Type Department Care Team Description 01/25/2021 Telephone Shelley Bates MD med refills [address] [place] [address] Social History Tobacco Use Types Packs/Day Years [...] on filedocumented in this encounter Care Teams Life Enrichment Manager Relationship Specialty Start Date End Date Shelley Porter MD PCP - General Family Medicine 04/19/20 documented as of this encounter
--- OUTSIDE RECORDS SUMMARY | 2022-07-10 12:32 | XMS_ITS | Encounter Summary ---
:1955 Author Organization [facility] Address [address] [place] [address] Care Team Providers Name Role Phone Irina Pham APRN, BENCH ASSEMBLER BATTERY Primary Care Provider [phone] Reason for Visit Reason Comments Blood Pressure Check Encounter Details Date Type Department Care Team Description 08/22/2019 Clinical Support [place] [address] [place], [place] [address] Social History Tobacco Use [...] Comments Blood Pressure 138/82 08/22/2019 2:39 PM DRUG DEPARTMENT WORKER Pulse 64 08/22/2019 2:39 PM DRUG DEPARTMENT WORKER Temperature - - Respiratory Rate - - [...] come back in for a recheck BP? DEPARTMENT WORKER Irina Pham APRN, CNP - 08/22/2019 2:30 PM CST Contacted the patient, lisinopril 2.5 mg daily would be just fine, and if she would like me to send in the prescription I be happy to do so. DEPARTMENT WORKER documented in this encounter Plan of Treatment Not on filedocumented as of this encounter Visit Diagnoses Not on filedocumented in this encounter Care Teams Marsh Buggy Operator Relationship Specialty Start Date End Date Irina Pham APRN, JOE PCP - General Family Medicine 07/29/18 04/18/[address] [place] [address] [place] [address] documented as of this encounter
--- OUTSIDE RECORDS SUMMARY | 2022-07-10 12:32 | XMS_ITS | Encounter Summary ---
:1955 Author Organization [facility] Address [address] [place] [address] Care Team Providers Name Role Phone Irina Pham APRN, JOE Primary Care Provider [phone] Reason for Visit Reason Comments Advice Only Consultation (Routine) - Closed Specialty Diagnoses / Procedures Referred By Contact Refer red To Contact Cardiology Diagnoses Essential hypertension Systolic murmur Irina Pham APRN, DISPATCHER RELAY [address] [place] [address] Referral ID Status Reason Start Date Expiration Date Visits V isits Requested Authorized [id number] Closed Specialty 06/12/2019 06/12/2020 1 1 Services Required Encounter Details Date Type Department Care Team Description 08/28/2019 Consult [place] Shivam De La O MD Murmur, heart (Primary Dx); [address] Bilateral carotid bruits; [place], [place] [address] Essential hypertension; [phone] Palpitations Social History Tobacco Use Types Packs/Day [...] Comments Blood Pressure 138/88 08/28/2019 10:32 AM BRAZER REPAIR AND SALVAGE Pulse 66 08/28/2019 10:32 AM BRAZER REPAIR AND SALVAGE Temperature 36.8 ??C (98.2 ??F) 08/28/2019 10:32 AM BRAZER REPAIR AND SALVAGE Respiratory Rate 16 08/28/2019 10:32 AM BRAZER REPAIR AND SALVAGE Oxygen Saturation 98% 08/28/2019 10:32 AM BRAZER REPAIR AND SALVAGE Inhaled Oxygen Concentration - - Weight 100 kg (220 lb 14.4 oz) 08/28/2019 10:32 AM BRAZER REPAIR AND SALVAGE Height 150 cm (4' 11.06) 08/28/2019 10:32 AM BRAZER REPAIR AND SALVAGE Body Mass Index 44.53 08/28/2019 10:32 AM BRAZER REPAIR AND SALVAGE documented in this encounter Patient Instructions Patient [...] clinic and we can make appropriate recommendations. ER REPAIR AND SALVAGE documented in this encounter Progress Notes Shivam De La O MD - 08/28/2019 10:20 AM CST Consultation Patient ID: Colleen Tolentino is a 64 y.o. female. Referring Provider: Irina Pham APRN, CNP HPI This 64-year-old female is seen in initial Cardiology Consultation with the [facility] cardiology group with concerns about her blood [...] impacted by recent psychosocial stressors with her hvvnao-nl-ytu having been quite ill resulting in her [...] over the left sternal border of her Irina Pham. Other than her recent echocardiogram she [...] panic attacks question related to her ill vvwjtt-zv-cev since this past late winter/early spring. Additionally [...] us and we can make appropriate arrangements. ER REPAIR AND SALVAGE documented in this encounter Plan of Treatment Not on filedocumented as of this encounter Visit Diagnoses Diagnosis Murmur, heart - Primary Undiagnosed cardiac murmurs Bilateral carotid bruits Essential hypertension Unspecified essential hypertension Palpitations documented in this encounter Care Teams Hand Drawer In Helper Relationship Specialty Start Date End Date Irina Pham APRN, DISPATCHER RELAY PCP - General Family Medicine 07/29/18 04/18/[address] [place] [id number] documented as of this encounter
--- OUTSIDE RECORDS SUMMARY | 2022-07-10 12:32 | XMS_ITS | Encounter Summary ---
:1955 Author Organization [facility] Address [address] [place] [address] Care Team Providers Name Role Phone Shelley Porter MD Primary Care Provider Unavailable Reason for Visit Reason Comments Blood Pressure Check Encounter Details Date Type Department Care Team Description 01/25/2021 Clinical Support [address] [address] Social History Tobacco Use Types Packs/Day Years [...] on filedocumented in this encounter Care Teams Sales Development Executive Relationship Specialty Start Date End Date Shelley Porter MD PCP - General Family Medicine 04/19/20 documented as of this encounter
--- OUTSIDE RECORDS SUMMARY | 2022-07-10 12:32 | XMS_ITS | Encounter Summary ---
:1955 Author Organization [facility] Address [address] [place] [address] Care Team Providers Name Role Phone Shelley Porter MD Primary Care Provider Unavailable Encounter Details Date Type Department Care Team Description 10/11/2020 Orders Only Shelley Bates Pure hypercholesterolemia [address] [facility] Fernando Centeno MD (Primary Dx) [place] [address] Social History Tobacco Use Types Packs/Day Years [...] Primary documented in this encounter Care Teams Statistical Reporting Analyst Relationship Specialty Start Date End Date Shelley Porter MD PCP - General Family Medicine 04/19/20 documented as of this encounter
--- OUTSIDE RECORDS SUMMARY | 2022-07-10 12:32 | XMS_ITS | Encounter Summary ---
:1955 Author Organization [facility] Address [address] [place] [address] Care Team Providers Name Role Phone None, Pcp Primary Care Provider Unavailable Reason for Visit Reason Comments Med Refill Encounter Details Date Type Department Care Team Description 01/25/2021 Refill [place] Shelley Porter, Essential hypertension [address] [place], [place] [address] Social History Tobacco Use [...] hypertension documented in this encounter Care Teams Applied Anthropologist Relationship Specialty Start Date End Date None, Pcp PCP - General 10/19/21 [address] [place] [address] documented as of this encounter
--- OUTSIDE RECORDS SUMMARY | 2022-07-10 12:32 | XMS_ITS | Encounter Summary ---
:1955 Author Organization [facility] Address [address] [place] [address] Care Team Providers Name Role Phone Irina Pham APRN, CNP Primary Care Provider [phone] Reason for Referral Consultation (Routine) - Closed Specialty Diagnoses / Procedures Referred By Contact Refer red To Contact Diagnoses Bilateral carotid bruits Irina Pham, [facility] - [address] [address] [place] [address] Phone: Fax: Referral ID Status Reason Start Date Expiration Date Visits Requ ested Visits Authorized [id number] Closed 06/12/2019 06/12/2020 1 1 Consultation (Routine) - Closed Specialty Diagnoses / Procedures Referred By Contact Refer red To Contact Cardiology Diagnoses Essential hypertension Systolic murmur Irina Pham APRN, CNP [address] [place] [address] Referral ID Status Reason Start Date Expiration Date Visits V isits Requested Authorized [id number] Closed Specialty 06/12/2019 06/12/2020 1 1 Services Required Scheduling Instructions Please call the Suit Maker stevo gillespie at [phone] ext. [phone] to schedule an appointment. Please schedule in Tarik cortez. Cardiac (Routine) - Closed Specialty Diagnoses / Procedures Referred By Contact Refer red To Contact Cardiology Diagnoses Systolic murmur Essential hypertension Irina Pham, Stan Echocardiogram 2D complete with spec and color form doppler JOE JUNG [address] [place] [address] Referral ID Status Reason Start Date Expiration Date Visits Requ ested Visits Authorized [id number] Closed 06/12/2019 12/09/2019 1 1 Reason for Visit Reason Comments Hypertension Encounter Details Date Type Department Care Team Description 06/12/2019 Office Visit Tarik López Irina Pham Essential hypertension (Prim dylan Dx); [address] M, JOE JUNG Systolic murmur; KIRSTINE Giron 100 [facility] AV Bilateral carotid bruits [address] [place] [address] Social History Tobacco Use Types Packs/Day Years [...] AM CDT Echocardiogram and cardiology appointment in [place] Lisinopril 5 mg daily Consider carotid ultrasound [...] 2 teenage boys, whom [facility]. The patient reports one of her sons [...] will obtain a bilateral carotid ultrasound at [facility] in [place] prior to that appointment, which she decided [...] for this COMPLETE WITH SPEC AND AM ROUTE MANAGER Essential proce dure are in COLOR FORM DOPPLER hypertension the resul ts section. documented in this encounter Results Echocardiogram 2D complete with spec and color form doppler (07/03/2019 10:00 AM ROUTE MANAGER) Anatomical Region Laterality Modality Ultrasound Specimen (Source) Anatomical Collection Method Collection Time Re ceived Time Location / / Volume Laterality 07/03/2019 10:00 AM ROUTE MANAGER Narrative This result has an attachment that is no t available. Irina Pham APRN, CNP CV ECHO PROCEDURES documented in this encounter Visit Diagnoses Diagnosis Essential hypertension - Primary Unspecified essential hypertension Systolic murmur Undiagnosed cardiac murmurs Bilateral carotid bruits documented in this encounter Care Teams Voip Engineer Relationship Specialty Start Date End Date Irina Pham APRN, DENTAL EQUIPMENT MECHANIC PCP - General Family Medicine 07/29/18 04/18/20 100 [facility] [place] [place] [address] documented as of this encounter
--- OUTSIDE RECORDS SUMMARY | 2022-07-10 12:32 | XMS_ITS | Clinical Summary ---
:1955 Author Organization [facility] Address [address] [place] [address] Care Team Providers Name Role Phone None, [...] Noted Date History of colonoscopy 04/29/2020 Overview: [facility] 01/26/2011, normal, repeat 10 years. Murmur, heart 08/28/2019 Bilateral carotid bruits 08/28/2019 Essential hypertension 08/28/2019 Palpitations 08/28/2019 Obesity 08/14/2017 Hyperlipidemia 08/08/2012 Osteopenia 06/27/2012 Overview: Bone density at [facility] in 2011. Immunizations Name Administration Dates Next [...] - PCV) COVID-19 Vaccine (4 - Booster 09/21/2021 07/27/2021, for Pfizer series) 11/22/2020, 10/28/2020 Mammogram 06/24/2022 06/24/2021, 12/09/2018 DTaP,Tdap,and Td Vaccines (3 - 06/27/2022 06/27/2012, Td or Tdap) 09/23/2008, 03/11/1999 HPV Vaccines Aged Out No longer eligib le based on patient's age to complete this to [facility] Insurance Payer Benefit Plan / Subscriber ID Effective Dates Phone Addre ss Type Group BCBS OF BCBS OF [id number] [place] [address] [place] [address] Care Teams Gut Puller Relationship Specialty Start Date End Date None, Pcp PCP - General 10/19/[address] [place] [phone]
--- OUTSIDE RECORDS SUMMARY | 2022-07-10 12:32 | XMS_ITS | Encounter Summary ---
:1955 Author Organization [facility] Address [address] [place] [address] Care Team Providers Name Role Phone Shelley Porter MD Primary Care Provider Unavailable Reason for Visit Reason Onset Date Comments Med Refill 10/04/2020 Encounter Details Date Type Department Care Team Description 10/04/2020 Refill [place] Shelley Porter, Essential hypertension [address] [place], [place] [address] Social History Tobacco Use [...] lab appt scheduled for Sunday10/06/20 as requested. TRAPPER Telephone Encounter - Yuki Cornejo RN - 10/04/2020 11:31 AM CST Please call patient to schedule fasting labs. TRAPPER Telephone Encounter - Shelley Porter MD - 10/04/2020 11:21 AM CST Due for routine labs, already ordered. TRAPPER Telephone Encounter - Yuki Cornejo RN - 10/04/2020 8:17 AM CST Please review request. TRAPPER Telephone Encounter - Nikia Clarke LPN - 10/04/2020 7:30 AM BIRD TRAPPER Last visit in provider department: 04/29/2020 Last [...] Please contact patient to assist with scheduling. TRAPPER documented in this encounter Plan of Treatment Not on filedocumented as of this encounter Visit Diagnoses Diagnosis Essential hypertension Unspecified essential hypertension documented in this encounter Care Teams Dielectric Press Operator Relationship Specialty Start Date End Date Shelley Porter MD PCP - General Family Medicine 04/19/20 documented as of this encounter
--- OUTSIDE RECORDS SUMMARY | 2022-07-10 12:33 | XMS_ITS | Encounter Summary ---
:1955 Author Organization [facility] Address [address] [place] [address] Care Team Providers Name Role Phone Irina Pham APRN, CNP Primary Care Provider [phone] Encounter Details Date Type Department Care Team Description 12/10/2018 Telephone [place] Irina Pham, [address] [place], [place] [address] [address] [facility] [address] [phone] [place], [place] [address] Social History Tobacco Use [...] on filedocumented in this encounter Care Teams First Line Production Supervisor Relationship Specialty Start Date End Date Irina Pham APRN, CNP PCP - General Family Medicine 07/29/18 04/18/20 100 [facility] [place], [place]STINE [address] documented as of this encounter
--- OUTSIDE RECORDS SUMMARY | 2022-07-10 12:33 | XMS_ITS | Encounter Summary ---
:1955 Author Organization [facility] Address [address] [place] [address] Care Team Providers Name Role Phone Irina Pham APRN, YEAST PUSHER Primary Care Provider [phone] Reason for Referral Consultation (Routine) - Closed Specialty Diagnoses / Procedures Referred By Contact Refer red To Contact Cardiology Diagnoses Systolic murmur Irina Pham APRN, YEAST PUSHER [address] [place] [address] Referral ID Status Reason Start Date Expiration Date Visits V isits Requested Authorized [id number] Closed Specialty 11/13/2018 11/14/2019 1 1 Services Required Scheduling Instructions Please call the Manager Global stevo gillespie at [phone]. [phone] to schedule an appointment. Please schedule in Alex Vallejo Consultation (Routine) - Closed Specialty Diagnoses / Procedures Referred By Contact Refer red To Contact Diagnoses Philippe's neuroma of right foot Irina Pham, [facility] [place] FABIANA, YEAST PUSHER [address] [facility] 100 [place] [address] Fax: Referral ID Status Reason Start Date Expiration Date Visits Requ ested Visits Authorized [id number] Closed 11/13/2018 11/14/2019 1 1 Reason for Visit Reason Comments Consult Encounter Details Date Type Department Care Team Description 11/12/2018 Office [place] Palpitations (Primary Dx); [address] M, JOE JUNG Systolic murmur; KRISTINE Giron [address] Hyperlipidemia, unspecified hyperlipidem ia type; [address] KRISTINE VAUGHN Dyspnea on exertion; [phone] [address] Philippe's neuroma of right foot; [phone] Screening, anem ia, deficiency, iron (Work) Social [...] AM CDT Please schedule your mammogram in [place] Will call with the lab results Referral to podiatry to [place] [facility] referal documented in this encounter Progress Notes Irina Pham APRN, CNP - 11/12/2018 8:00 AM CDT Estab Patient Visit Subjective Patient ID: Colleenrubi Tolentino is a 63 y.o. female presenting [...] most. She previously had this evaluated at [facility] in [place] and would like a referral to have this reevaluated. 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 The patient reports she had left [...] with her teenage son's choices, and a vdnvot-ud-ils whowas diagnosed with incurable brain cancer 3 [...] and a referral has been sent to [facility]. The patient will be notified of her lab results and further recommendations. Encouraged a DEXA scan every 2 years, particularly with her family history, which she can consider. The patient agrees to schedule her mammogram at [facility] in [place]. The patient agrees and understands this plan [...] Sodium 139 135 - 145 11/12/2018 [facility] mmol/L 9:36 AM CDT [place] Potassium 3.5 3.5 - 5.1 11/12/2018 [facility] [place] mmol/L 9:36 AM CDT [place] Comment: . Chloride 104 98 - 107 mmol/L 11/12/2018 9:36 AM CDT O [place] Comment: . CO2 27 22 - 29 mmol/L 11/12/2018 9:36 AM CDT OM C [place] Comment: . Creatinine 0.5 0.4 - 1.2 mg/dL 11/12/2018 9:36 AM CDT [facility] [place] Comment: . BUN 10 5 - 25 mg/dL 11/12/2018 9:36 AM CDT C [place] Comment: . Glucose 85 70 - 100 mg/dL 11/12/2018 9:36 AM CDT C [place] Calcium, Total,S 9.3 8.4 - 10.2 mg/dL 11/12/2018 9:36 AM CDT [facility] [place] Comment: . Fasting? Yes 11/12/2018 9:12 AM CDT [facility] CAN NON [place] Specimen Anatomical Collection Method Collection Time Receive d Time (Source) Location / / Volume Laterality Blood (Blood, 11/12/2018 8:59 AM 11/13/19 19 9:12 Venous) CDT AM CDT Irina Pham APRN, YEAST PUSHER LAB BLOOD ORDERABLES Performing Organization Address City/State/ZIP Code Phon e Number [facility] [place] [address] [place] [address] CBC Branch Off w/Diff (11/12/2018 8:59 AM CDT) P athologist Signature WBC 6.0 3.5 - 10.5 11/12/2018 [facility] [place] K/uL 9:36 AM CDT [place] RBC 4.62 3.90 - 11/12/2018 [facility] [place] 5.00 M/uL 9:36 AM CDT [place] Hemoglobin 13.8 12.0 - 11/12/2018 [facility] [place] 15.5 g/dL 9:36 AM CDT [place] Hematocrit 41.1 35.0 - 11/12/2018 [facility] [place] 44.0 % 9:36 AM CDT [place] Platelets 196 150 - 450 11/12/2018 [facility] [place] K/uL 9:36 AM CDT [place] MCV 89.0 81.6 - 11/12/2018 [facility] [place] 98.3 fL 9:36 AM CDT [place] MCH 29.9 26.0 - 11/12/2018 [facility] [place] 32.0 pg 9:36 AM CDT [place] MCHC 33.6 32.0 - 11/12/2018 [facility] [place] 36.0 g/dL 9:36 AM CDT [place] RDW 13.4 11.9 - 11/12/2018 [facility] [place] 15.5 % 9:36 AM CDT [place] Lymphocytes % 34.5 18.0 - 11/12/2018 [facility] [place] 45.0 % 9:36 AM CDT [place] Mid-size Cells 6.5 3.3 - 10.1 11/12/2018 [facility] [place] % 9:36 AM CDT [place] Granulocytes/Khadra 59.0 45.8 - 11/12/2018 [facility] trophils 73.7 % 9:36 AM CDT [place] Lymphocytes 2.1 0.9 - 2.9 11/12/2018 [facility] [place] Absolute K/uL 9:36 AM CDT [place] MIDS Absolute 0.4 0.2 - 0.8 11/12/2018 [facility] [place] K/uL 9:36 AM CDT [place] Granulocytes/Khadra 3.5 2.1 - 8.7 11/12/2018 [facility] [place] trophils K/uL 9:36 AM CDT [place] Absolute Specimen Anatomical Collection Method Collection Time Receive d Time (Source) Location / / Volume Laterality Blood (Blood, 11/12/2018 8:59 AM 11/13/19 19 9:12 Venous) CDT AM CDT Irina Pham APRN, YEAST PUSHER LAB BLOOD ORDERABLES Performing Organization Address City/State/ZIP Code Phon e Number [facility] [place] [address] [place] [address] (ABNORMAL) Lipid panel (11/12/2018 8:59 AM CDT) P athologist Signature Cholesterol 226 (A) 0 - 199 11/12/2018 [facility] mg/dL 1:26 PM CDT [facility]ENTER LAB[facility]ORY Comment: Recommended by National Cholesterol Education Program (ATP III) -------- Cholesterol Ranges -------- <200 ? Desirable 200-239 ? Borderline high >=240 ? High Triglycerides 76 0 - 149 mg/dL 11/12/2018 1:26 PM CDT [facility] Comment: -------- TRIG Ranges -------- <150 ?Normal 150-199 ? Borderline high 200-499 ? High >=500 ? Very high HDL 54 40 - 60 mg/dL 11/12/2018 1:26 PM CDT [facility] Comment: -------- HDL Ranges -------- <40 ?Low 40-59 ?Normal >=60 ? Optimal LDL Calculated 157 (A) 0 - 99 mg/dL 11/12/2018 1:26 PM CDT [facility] Comment: -------- LDL Ranges -------- <100 ? Optimal 100-129 ?Near optimal/above op timal 130-159 ?Borderline high 160-189 ?High >=190 ?Very high Specimen Anatomical Collection Method Collection Time Receive d Time (Source) Location / / Volume Laterality Blood (Blood, 11/12/2018 8:59 AM 11/13/19 19 Venous) CDT 12:58 PM CDT Irina Pham APRN, YEAST PUSHER LAB BLOOD ORDERABLES Performing Organization Address City/State/ZIP Code Phon e Number [facility] [address] [place] [address] (ABNORMAL) T3 (11/12/2018 8:59 AM CDT) P athologist Signature T3, Total 1.97 (H) 0.97 - 1.69 11/13/2018 [facility] ng/mL 2:03 PM CDT CENTER [...] CNP LAB BLOOD ORDERABLES Performing Organization Address [facility] Phon e Number [facility] [address] [place] [address] T4, free (11/12/2018 8:59 AM CDT) athologist [...] JOE LAB BLOOD ORDERABLES Performing Organization Address [facility] Phon e Number [facility] [address] [place] [address] TSH (11/12/2018 8:59 AM CDT) P athologist [...] Organization Address City/State/ZIP Code Phon e Number [facility] [address] [place] [address] documented in this encounter Visit Diagnoses Diagnosis Palpitations - Primary Systolic murmur Undiagnosed cardiac murmurs Hyperlipidemia, unspecified hyperlipidem ia type Dyspnea on exertion Other dyspnea and respiratory abnormalit y Philippe's neuroma of right foot Screening, anemia, deficiency, iron Screening for iron deficiency anemia documented in this encounter Care Teams Stock Shipper Relationship Specialty Start Date End Date Irina Pham APRN, YEAST PUSHER PCP - General Family Medicine 07/29/18 04/18/20 [address] [place] [address] documented as of this encounter
--- OUTSIDE RECORDS SUMMARY | 2022-07-10 12:33 | XMS_ITS | Encounter Summary ---
:1955 Author Organization [facility] Address [address] [place] [address] Care Team Providers Name Role Phone Irina Pham APRN, WAITER/WAITRESS FORMAL Primary Care Provider Encounter Details Date Type Department Care Team Description 11/12/2018 Lab Volodymyr López Palpitations; [address] Screening, anemia, deficienc y, iron; KRISTINE Salas [address] Hyperlipidemia, unspecified hyperlipidemia type [phone] Social History Tobacco Use Types Packs/Day Years [...] AM CDT) athologist Signature GFR >60 11/12/2018 [facility] 9:36 AM CDT [facility] >60 11/12/2018 [facility] Citizen Of [place] GFR 9:36 AM CDT [facility]ENTER [facility] Comment: [...] 8:59 CDT AM CDT Irina Pham APRN, WAITER/WAITRESS FORMAL LAB BLOOD ORDERABLES Performing Organization Address City/State/ZIP Code Phon e Number [facility] [address] [place] [address] TSH (11/12/2018 8:59 AM CDT) athologist Signature TSH, Sensitive 1.96 0.46 - [facility] 4.68 mIU/L 2:03 PM CDT [...] CNP LAB BLOOD ORDERABLES Performing Organization Address [facility]AT[facility] [address] [place] [address] T4, free (11/12/2018 8:59 AM CDT) P [...] CNP LAB BLOOD ORDERABLES Performing Organization Address [facility] Number [facility] [address] [place] [phone] (ABNORMAL) T3 (11/12/2018 8:59 AM CDT) P [...] CDT 12:35 PM CDT Irina Pham APRN, WAITER/WAITRESS FORMAL LAB BLOOD ORDERABLES Performing Organization Address City/State/ZIP Code Phon e Number [facility] [address] [place] [address] (ABNORMAL) Lipid panel (11/12/2018 8:59 AM CDT) athologist Signature Cholesterol 226 (A) 0 - 199 11/12/2018 [facility] mg/dL 1:26 PM T [facility]ENTER [facility] Comment: Recommended by National Cholesterol Education Program (ATP III) -------- Cholesterol Ranges -------- <200 ? Desirable 200-239 ? Borderline high >=240 ? High Triglycerides 76 0 - 149 mg/dL 11/12/2018 1:26 PM CDT [facility] Comment: -------- TRIG Ranges -------- <150 ?Normal 150-199 ? Borderline high 200-499 ? High >=500 ? Very high HDL 54 40 - 60 mg/dL 11/12/2018 1:26 PM CDT [facility] Comment: -------- HDL Ranges -------- <40 ?Low 40-59 ?Normal >=60 ? Optimal LDL Calculated 157 (A) 0 - 99 mg/dL 11/12/2018 1:26 PM CDT [facility] Comment: -------- LDL Ranges -------- <100 ? Optimal 100-129 ?Near optimal/above op timal 130-159 ?Borderline high 160-189 ?High >=190 ?Very high Specimen Anatomical Collection Method Collection Time Receive d Time (Source) Location / / Volume Laterality Blood (Blood, 11/12/2018 8:59 AM 11/13/19 19 Venous) CDT 12:58 PM CDT Irina Pham DISTRIBUTOR SALES MANAGER, WAITER/WAITRESS FORMAL LAB BLOOD ORDERABLES Performing Organization Address City/State/ZIP Code Phon e Number [facility] [address] [place] [address] CBC Branch Off w/Diff (11/12/2018 8:59 AM CDT) P athologist Signature WBC 6.0 3.5 - 10.5 11/12/2018 [facility] K/uL 9:36 AM CDT [place] RBC [...] [place] Granulocytes/Khadra 59.0 45.8 - 11/12/2018 [facility] [place] trophils 73.7 % 9:36 AM CDT [place] Lymphocytes 2.1 0.9 - 2.9 11/12/2018 [facility] Absolute K/uL 9:36 AM CDT [place] MIDS Absolute 0.4 0.2 - 0.8 11/12/2018 [facility] [place] K/uL 9:36 AM CDT [place] Granulocytes/Khadra 3.5 2.1 - 8.7 11/12/2018 [facility] [place] trophils K/uL 9:36 AM CDT [place] Absolute Specimen Anatomical Collection Method Collection Time Receive d Time (Source) Location / / Volume Laterality Blood (Blood, 11/12/2018 8:59 AM 11/13/19 19 9:12 Venous) CDT AM CDT Irina Pham APRN, WAITER/WAITRESS FORMAL LAB BLOOD ORDERABLES Performing Organization Address City/State/ZIP Code Phon e Number [facility] [place] [address] [place] [address] Basic metabolic panel (11/12/2018 8:59 AM CDT) P athologist Signature Sodium 139 135 - 145 11/12/2018 [facility] [place] mmol/L 9:36 AM CDT [place] Potassium 3.5 3.5 - 5.1 11/12/2018 [facility] [place] mmol/L 9:36 AM CDT [place] Comment: . Chloride 104 98 - 107 mmol/L 11/12/2018 9:36 AM CDT [facility] [place] Comment: . CO2 27 22 - 29 mmol/L 11/12/2018 9:36 AM CDT C [place] Comment: . Creatinine 0.5 0.4 - 1.2 mg/dL 11/12/2018 9:36 AM CDT [facility] [place] Comment: . BUN 10 5 - 25 mg/dL 11/12/2018 9:36 AM CDT [facility] [place] Comment: . Glucose 85 70 - 100 mg/dL 11/12/2018 9:36 AM CDT C [place] Calcium, Total,S 9.3 8.4 - 10.2 mg/dL 11/12/2018 9:36 AM CDT [facility] [place] Comment: . Fasting? Yes 11/12/2018 9:12 AM CDT [facility] CAN NON [place] Specimen Anatomical Collection Method Collection Time Receive d Time (Source) Location / / Volume Laterality Blood (Blood, 11/12/2018 8:59 AM 11/13/19 19 9:12 Venous) CDT AM CDT Irina Pham APRN, JOE LAB BLOOD ORDERABLES Performing Organization Address City/State/ZIP Code Phon e Number [facility]YR LÓPEZ [address] [place] [address] documented in this encounter Visit Diagnoses Diagnosis Palpitations Screening, anemia, deficiency, iron Screening for iron deficiency anemia Hyperlipidemia, unspecified hyperlipidem ia type documented in this encounter Care Teams Type Cutter Relationship Specialty Start Date End Date Irina Pham APRN, WAITER/WAITRESS FORMAL PCP - General Family Medicine 07/29/18 04/18/[address] [place] [address] [place]STINE MORA [address] documented as of this encounter
--- OUTSIDE RECORDS SUMMARY | 2022-07-10 12:33 | XMS_ITS | Encounter Summary ---
:[address] [facility] Address [address] [place] [address] Care Team Providers Name Role Phone Irina Pham APRN, CNP Primary Care Provider [phone] Reason for Visit Reason Comments Personal Problem Encounter Details Date Type Department Care Team Description 07/29/2018 Office Visit Tarik López Irina Pham Stress at home [address], JOE JUNG (Primary Dx) [place], [place] [address] [facility] [address] [address] [place] [address] Social History Tobacco Use Types Packs/Day Years [...] Blood Pressure 136/84 07/29/2018 9:35 AM CLINICAL QUALITY MANAGER Pulse 79 07/29/2018 9:35 AM CLINICAL QUALITY MANAGER Temperature 36.5 ??C (97.7 ??F) 07/29/2018 9:35 AM CLINICAL QUALITY MANAGER Respiratory Rate 16 07/29/2018 9:35 AM CLINICAL QUALITY MANAGER Oxygen Saturation 97% 07/29/2018 9:35 AM CLINICAL QUALITY MANAGER Inhaled Oxygen Concentration - - Weight - - Height 159 cm (5' 2.6) 07/29/2018 9:35 AM CLINICAL QUALITY MANAGER Body Mass Index - - documented in this encounter Patient Instructions Patient InstructionsChmer Pham APRN, CNP - 07/29/2018 9:20 AM CLINICAL QUALITY MANAGER Recommend exercise, healthy diet, and plenty of rest Recommend [employer] [facility] [employer] in [place], [place] ICAL QUALITY MANAGER documented in this encounter Progress Notes Irina [...] and her Alex, adopted 2 children from [facility],when they were young. The mother reports [...] The patient son is 11th grade in [place], had a difficult time learning lastyear, reflected [...] healthy, exercise, and will be going to [employer], after this clinical appointment to maintain [...] of care. Irina Pham APRN, JOE ICAL QUALITY MANAGER documented in this encounter Plan of Treatment Not on filedocumented as of this encounter Visit Diagnoses Diagnosis Stress at home - Primary documented in this encounter Care Teams Cell Cleaner Relationship Specialty Start Date End Date Irina Pham APRN, BICYCLE ASSEMBLER PCP - General Family Medicine 07/29/18 04/18/20 100 [facility] [place] [address] documented as of this encounter
== END 2022-07-10 12:18 | disposition home or self-care (01) ==
LOC: OP CLINIC 12:17
PROVIDERS: PCP Nurse Practitioner Family; Visit Provider Surgery
DX: Z12.11 Encounter for screening for malignant neoplasm of colon (principal)
CPT/HCPCS: 45378; J2250; J3010

== ENCOUNTER 2022-07-11 07:25 | Day surgery (SDC) | payer BC, SELFPAY ==
--- NOTE | 2022-07-11 07:37 | SUR.PREOP ---
PATIENT HOME COVID ANTIGEN TEST NEGATIVE DONE 07/09/22.
[2022-07-11 07:43] VITALS: BP 141/77; PULSE 76; RESP 16; TEMP 36.8; O2SAT 96
[2022-07-11] MEDS: SODIUM CHLORIDE 0.9 % (FLUSH) 10 ML SYRINGE IVF (07:50)
[2022-07-11] MEDS: LACTATED RINGERS 1000 ML 1,000 ML 100 ML IV (07:50)
[2022-07-11 07:54] VITALS: BMI 39.6
[2022-07-11 09:15] VITALS: BP 117/73; PULSE 66; RESP 16; TEMP 36.4; O2SAT 95
--- NOTE | 2022-07-11 09:20 | P.GYNPRC_ITS ---
Procedure Note Time Seen by Provider: 09:00 Date Seen: 07/11/22 Procedure Details: Preoperative diagnosis: Colleen Tolentino is a -year-old 0 para 0 with thickened endometrial lining, BMI of 39.7 and nullparity. Unable to tolerate endometrial biopsy in clinic. Postoperative diagnosis: Same Procedure: Exam under anesthesia and Endometrial biopsy Anesthesia: Conscious sedation Surgeon: Nadia Gomez MD Radiology Scheduler: Not applicable Estimated blood loss: <5 cc Specimen: Endometrial curretting Findings: On exam under anesthesia: the uterus was small, anterior position. Cervical os was closed without active bleeding. Adnexa were without mass or fullness palpable - although difficult to fully assess due to habitus. The uterus sounded to 6 cm. Sharp curetting with minimal amount of tissue. Procedure: Colleen was taken to the operating room where conscious sedation was found to be adequate. She was placed in the dorsal lithotomy position and an exam under anesthesia was performed with with findings stated above. A bivalve speculum was placed in the vagina to visualize the cervix. Betadine used to clean cervix. The anterior lip of the cervix was grasped with tennaculum. The cervix was dilated to Hegar #4. A small curved curette was used to obtain the endometrial sampling. Uterine texture is gritty. The tenaculum was removed from the anterior lip of the cervix. Excellent hemostasis was noted. The speculum was then removed from the vagina. The patient tolerated this procedure well. The patient was awakened from sedation and taken to the recovery area in stable condition.
[2022-07-11 09:30] VITALS: BP 129/67; PULSE 61; RESP 16; O2SAT 95
--- NOTE | 2022-07-11 10:42 | W.ANESCHARGE ---
Anesthesia Charges Start Date/Time Anesthesia Start Date: 07/11/22 Anesthesia Start Time: 08:50 Stop Date/Time Anesthesia Stop Date: 07/11/22 Anesthesia Stop Time: 09:18 Summary Emergency: No
--- NOTE | 2022-07-11 11:08 | W.ANESCHARGE ---
Anesthesia Charges Start Date/Time Anesthesia Start Date: 07/11/22 Anesthesia Start Time: 08:50 Stop Date/Time Anesthesia Stop Date: 07/11/22 Anesthesia Stop Time: 09:18 Summary Emergency: No
== END 2022-07-11 09:49 | disposition home or self-care (01) ==
PROVIDERS: PCP Nurse Practitioner Family; Visit Provider Obstetrics & Gynecology
PROC: (CPT 58120; principal; 2022-07-11 08:45)
DX: N85.02 Endometrial intraepithelial neoplasia [EIN] (principal); R93.89 Abnormal findings on diagnostic imaging of other specified body structures
CPT/HCPCS: 58120; 00940; 88305; J2250; J2704; J3010; J7120

== ENCOUNTER 2022-08-31 13:41 | Outpatient (CLI) | payer BC, SELFPAY ==
[2022-08-31 21:47] LABS: Basophils Absolute Auto 0.03 K/uL (0.00-0.30); Basophils Percent Auto 0.4 % (0.0-3.0); Eosinophils Absolute Auto 0.24 K/uL (0.00-0.50); Eosinophils Percent Auto 3.5 % (0.0-7.0); Hematocrit 41.8 % (33.0-51.0); Hemoglobin* 13.8 gm/dL (12.0-16.0); Immature Granulocytes Abs Auto 0.01 K/uL (0.00-0.30); Immature Granulocytes Pct Auto 0.1 %; Lymphocytes Absolute Auto 2.28 K/uL (0.90-2.90); Lymphocytes Percent Auto 32.9 % (20-44); Mean Corpuscular HGB Conc 33 gm/dL (32-36); Mean Corpuscular Hemoglobin 30 pg (26-34); Mean Corpuscular Volume 90 fL (80-100); Monocytes Percent Auto 7.1 % (0.0-11.0); Neutrophils Absolute Auto 3.87 K/uL (1.7-7.0); Platelet Count* 159 K/uL (140-440); RDW Coefficient of Variation % 13.4 % (11.5-15.5); Red Blood Count 4.63 m/uL (4.00-5.20); White Blood Count* 6.92 K/uL (4.50-11.00)
[2022-08-31 21:52] LABS: Slide Review Reflex No
[2022-08-31 21:54] LABS: Chloride* 102 mmol/L (96-114); Sodium* 139 mmol/L (135-149)
[2022-08-31 21:57] LABS: Blood Urea Nitrogen* 13 mg/dL (7-30); Carbon Dioxide* 28 mmol/L (20-32); Creatinine* 0.6 mg/dL (0.5-1.5); Estimated Glomerular Filt Rate 98 ml/min; Glucose* 90 mg/dL (60-115)
[2022-08-31 21:58] LABS: Calcium* 8.5 mg/dL (8.4-10.6)
== END 2022-08-31 13:42 | disposition home or self-care (01) ==
PROVIDERS: PCP Nurse Practitioner Family; Visit Provider Nurse Practitioner Family
DX: Z01.818 Encounter for other preprocedural examination (principal)
CPT/HCPCS: 80048; 85025

== ENCOUNTER 2022-09-12 14:21 | Outpatient (CLI) | payer BC, SELFPAY ==
[2022-09-12 21:33] LABS: Chloride* 102 mmol/L (96-114); Sodium* 137 mmol/L (135-149)
[2022-09-12 21:34] LABS: Potassium* 4.1 mmol/L (3.6-5.1)
[2022-09-12 21:36] LABS: Basophils Absolute Auto 0.03 K/uL (0.00-0.30); Basophils Percent Auto 0.4 % (0.0-3.0); Carbon Dioxide* 24 mmol/L (20-32); Creatinine* 0.5 mg/dL (0.5-1.5); Eosinophils Absolute Auto 0.37 K/uL (0.00-0.50); Eosinophils Percent Auto 4.7 % (0.0-7.0); Estimated Glomerular Filt Rate 102 ml/min; Hematocrit 42.3 % (33.0-51.0); Immature Granulocytes Abs Auto 0.02 K/uL (0.00-0.30); Immature Granulocytes Pct Auto 0.3 %; Lymphocytes Absolute Auto 2.09 K/uL (0.90-2.90); Lymphocytes Percent Auto 26.4 % (20-44); Mean Corpuscular HGB Conc 33 gm/dL (32-36); Mean Corpuscular Hemoglobin 30 pg (26-34); Mean Corpuscular Volume 89 fL (80-100); Monocytes Percent Auto 6.3 % (0.0-11.0); Neutrophils Percent Auto 61.9 % (42.0-72.0); Platelet Count* 196 K/uL (140-440); RDW Coefficient of Variation % 13.2 % (11.5-15.5); Red Blood Count 4.73 m/uL (4.00-5.20); White Blood Count* 7.91 K/uL (4.50-11.00)
[2022-09-12 21:37] LABS: Blood Urea Nitrogen* 12 mg/dL (7-30); Calcium* 8.5 mg/dL (8.4-10.6); Glucose* 107 mg/dL (60-115); Magnesium* 1.9 mg/dL (1.5-2.6)
[2022-09-12 21:43] LABS: Slide Review Reflex No
[2022-09-12 22:00] LABS: Troponin I* < 0.01 ng/mL (0.01-0.04)
[2022-09-12 22:22] LABS: TSH With Reflex to FT4* < 0.015 uIU/mL (0.270-4.200)
== END 2022-09-12 14:22 | disposition home or self-care (01) ==
PROVIDERS: PCP Nurse Practitioner Family; Visit Provider Nurse Practitioner Family
DX: R00.2 Palpitations (principal); R35.0 Frequency of micturition; E03.9 Hypothyroidism, unspecified; I10 Essential (primary) hypertension; E78.5 Hyperlipidemia, unspecified
CPT/HCPCS: 80048; 83735; 84439; 84443; 84484; 85025; 87086; 87186

== ENCOUNTER 2022-12-01 08:10 | Outpatient (CLI) | payer BC, SELFPAY ==
[2022-12-01 16:06] LABS: TSH With Reflex to FT4* 0.898 uIU/mL (0.270-4.200)
== END 2022-12-01 08:11 | disposition home or self-care (01) ==
LOC: KYNREF 11:11
PROVIDERS: PCP Nurse Practitioner Family; Visit Provider Nurse Practitioner Family
DX: E03.9 Hypothyroidism, unspecified (principal)
CPT/HCPCS: 84443

== ENCOUNTER 2022-12-20 12:46 | Outpatient (CLI) | payer BC, SELFPAY ==
--- NOTE | 2022-12-20 13:00 | CRLHL7_ITS ---
For Patients: As a result of the Century Cures Act, medical imaging exams and procedure reports are released immediately into your electronic medical record. You may view this report before your referring provider. If you have questions, please contact your health care provider. Indication: Follow up nodules Technique: Noncontrast CT chest Please note that all CT scans at this facility use dose modulation, iterative reconstruction, and/or weight-based dosing when appropriate to reduce radiation dose to as low as reasonably achievable. Comparison: 05/25/2022 Findings: Calcified right hilar lymph nodes are present. Additional calcified lymph nodes adjacent to the distal esophagus on the left. Adrenal glands normal. Postop changes of gallbladder resection with stable curvilinear calcifications in the gallbladder fossa. Multiple calcified densities adjacent to the liver are similar. No enlarged mediastinal, hilar or axillary lymph nodes. Mild vascular calcifications. Stable 7 millimeter nodule within the lingula, 34. Stable 6 millimeter nodule left lower lobe, 44. Stable cluster of nodules within the right middle lobe. 2 millimeter nodule right upper lobe is also similar, 11/10. Also stable are nodules within the left posterior costophrenic angle. There is no fracture. Impression: Stable bilateral pulmonary nodules. The largest noncalcified nodule measures 7 millimeters. If the patient is a smoker or has a history of smoking, then follow-up low-dose CT in 1 year is suggested. Please note that all CT scans at this facility use dose modulation, iterative reconstruction, and/or weight-based dosing when appropriate to reduce radiation dose to as low as reasonably achievable. Dictated by Darrian Calabrese MD @ 12/21/2022 12:06:05 PM (Electronically Signed)
== END 2022-12-20 12:47 | disposition home or self-care (01) ==
LOC: CT 12:46
PROVIDERS: PCP Nurse Practitioner Family; Visit Provider Nurse Practitioner Family
DX: R91.1 Solitary pulmonary nodule (principal); R91.8 Other nonspecific abnormal finding of lung field
CPT/HCPCS: 71250

== ENCOUNTER 2023-03-05 13:21 | Outpatient (CLI) | payer BC, SELFPAY | END 2023-03-05 13:22 | disposition home or self-care (01) | LOC: KYNREF 13:22 | PROVIDERS: PCP Nurse Practitioner Family; Visit Provider Nurse Practitioner Family | DX: E03.9 Hypothyroidism, unspecified (principal) | CPT/HCPCS: 84443 ==

== ENCOUNTER 2023-03-11 19:26 | Outpatient (CLI) | payer BC, SELFPAY ==
--- NOTE | 2023-03-28 08:21 | W.PM.SLEEP ---
Sleep Study Details Details Interpreting Provider: Debby Date of Sleep Study: 03/11/23 Sleep Study Details: STUDY TYPE:? Home unattended ? BMI:? 38.6 ORDERING PROVIDER:Lay Pham INDICATION:? Concerns about sleep apnea ? SLEEP SUMMARY:? 502.9 minutes monitored RESPIRATORY SUMMARY:? AHI 6.7, supine 10.5, left lateral 10.7, right lateral 5.1 Low oxygen 87 0.1% of study oxygen less than 90% Snoring [place]za 0.8% PERIODIC LIMB MOVEMENTS OF SLEEP:? Not recorded during home study CARDIAC:? Range 28-109, mean 68.7 IMPRESSION:? Significant bradycardia was noted. Mild obstructive sleep apnea RECOMMENDATION: Further cardiac evaluation may be indicated. Treatment options for the sleep apnea include CPAP, dental appliance and weight loss.
== END 2023-03-11 19:27 | disposition home or self-care (01) ==
LOC: SLEEP 19:26
PROVIDERS: PCP Nurse Practitioner Family; Visit Provider Nurse Practitioner Family
DX: G47.33 Obstructive sleep apnea (adult) (pediatric) (principal); R00.1 Bradycardia, unspecified
CPT/HCPCS: 95806

== ENCOUNTER 2023-07-19 12:48 | Outpatient (CLI) | payer BC, SELFPAY | END 2023-07-19 12:49 | disposition home or self-care (01) | PROVIDERS: PCP Nurse Practitioner Family; Visit Provider Nurse Practitioner Family | DX: E78.2 Mixed hyperlipidemia (principal) | CPT/HCPCS: 80061 ==

== ENCOUNTER 2023-11-06 10:19 | Outpatient (CLI) | payer BC, SELFPAY | END 2023-11-06 10:20 | disposition home or self-care (01) | PROVIDERS: PCP Nurse Practitioner Family; Visit Provider Nurse Practitioner Family | DX: I10 Essential (primary) hypertension (principal); E03.9 Hypothyroidism, unspecified; E83.51 Hypocalcemia; R00.2 Palpitations | CPT/HCPCS: 80048; 82310; 83970; 84439; 84443 ==

== ENCOUNTER 2024-03-04 13:39 | Outpatient (CLI) | payer BC, SELFPAY ==
--- OUTSIDE RECORDS SUMMARY | 2024-03-04 13:45 | XMS_ITS | Encounter Summary ---
Author Organization [place] Address [address] [place] [address]. [place] [address] Care Team Providers Care Digital Technician Name Role Phone Frw, None Primary Care Provider UnavailSanjay Stephenson MD Unavailable Unavailable Ana Griffin DPM Unavailable [phone] Solis Michaels OD Unavailable [phone] Encounter Details Date Type Department Care Team (Late st Contact Info) Description 01/13/2011 9:30 AM CDT [facility] in [facility] [address] [place] [address] Yulissa Finn NP [facility] [address] [place], [place] [id number] Social History Tobacco Use Types Packs/Day Years Used Date Smoking Tobacco: Never Smokeless Tobacco: Never Alcohol Use Standard Drinks/Week Comments Yes 0 (1 standard drink = 0.6 oz pur e alcohol) rare Sex and Gender Information Value Date Recorded Sex Assigned at Not on file Gender Identity Not on file Sexual Orientation Not on file documented as of this encounter Plan of Treatment Not on file documented as of this encounter Visit Diagnoses Not on filedocumented in this encounter Care Teams Digital Technician Relationship Specialty Start Date End Date Frw, Sejal PCP - General 01/12/04 04/19/17 Sanjay Georges MD XXX RETIRED XXX [address] [place] [address] PCP - Orthopaedics 01/12/04 Ana Griffin DPM [facility] [place] [address] [place] [address] PCP - Podiatry 01/12/04 Solis Michaels OD [facility] [place] [address] [facility] [address] [place] [address] PCP - Ophthalmology 10/08/08 documented as of this encounter
--- OUTSIDE RECORDS SUMMARY | 2024-03-04 13:45 | XMS_ITS | Encounter Summary ---
Author Organization [place] Address [address] [place] [address]. 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 [address] [place] [address] Yulissa Finn NP [facility] [address] [facility] [address] [place], [place] [id number] Social History Tobacco Use Types Packs/Day Years Used Date Smoking Tobacco: Never Alcohol Use Standard Drinks/Week Comments No 0 (1 standard drink = 0.6 oz pur e alcohol) Sex and Gender Information Value Date Recorded Sex Assigned at Not on file Gender Identity Not on file Sexual Orientation Not on file documented as of this encounter Plan of Treatment Not on file documented as of this encounter Visit Diagnoses Not on filedocumented in this encounter Care Teams Remote Advisor Relationship Specialty Start Date End Date Frw, Sejal PCP - General 01/12/04 04/19/17 Sanjay Georges MD XXX RETIRED XXX [address] [place] [address] PCP - Orthopaedics 01/12/04 Ana Griffin DPM [facility] [place] [address] [place] [address] PCP - Podiatry 01/12/04 Solis Michaels OD [facility] [place] [address] [facility] [address] [place] [address] PCP - Ophthalmology 10/08/08 Irina Pham NP [address] [address] PCP - General 09/07/22 documented as of this encounter
--- OUTSIDE RECORDS SUMMARY | 2024-03-04 13:45 | XMS_ITS | Encounter Summary ---
Author Organization [place] Address [address] [place] [address]. [place] [address] Care Team Providers Care Ruby On Rails Consultant Name Role Phone Frw, None Primary Care Provider UnavailSanjay Stephenson MD Unavailable Unavailable Ana Griffin DPM Unavailable [phone] Solis Michaels OD Unavailable [phone] Irina Pham NP Primary Care Provider Encounter Details Date Type Department Care Team (Late st Contact Info) Description 12/31/2006 MyC Medical Advice [facility] in [place] MANAGER SUPPORT [address] [place] [address] Yulissa Finn NP [facility] [address] [facility] [address] [place], [place] [id number] Social History Tobacco Use Types Packs/Day Years [...] on filedocumented in this encounter Care Teams Ruby On Rails Consultant Relationship Specialty Start Date End Date Frw, Sejal PCP - General 01/12/04 04/19/17 Sanjay Georges MD XXX RETIRED XXX [address] [place] [address] PCP - Orthopaedics 01/12/04 Ana Griffin DPM [facility] [place] [address] [place] [address] PCP - Podiatry 01/12/04 Solis Michaels OD [facility] [place] [address] [facility] [address] [place] [address] PCP - Ophthalmology 10/08/08 Irina Pham NP [address] [address] PCP - General 09/07/22 documented as of this encounter
--- OUTSIDE RECORDS SUMMARY | 2024-03-04 13:45 | XMS_ITS | Encounter Summary ---
Author Organization [place] Address [address] [place] [address]. [place] [address] Care Team Providers Care Interchange Agent Name Role Phone Frw, None Primary Care Provider UnavailSanjay Stephenson MD Unavailable Unavailable Ana Griffin DPM Unavailable Solis Michaels OD Unavailable Irina Pham NP Primary Care Provider [phone] Encounter Details Date Type Department Care Team (Late st Contact Info) Description 03/04/2013 Telephone [facility] in [place] [facility] [address] [place] [address] Ana Griffin, DPM [facility] [place] [address] [facility] [address] [place] [address] Social History Tobacco Use Types Packs/Day Years Used Date Smoking Tobacco: Never Smokeless Tobacco: Never Alcohol Use Standard Drinks/Week Comments No 0 (1 standard drink = 0.6 oz pur e alcohol) Sex and Gender Information Value Date Recorded Sex Assigned at Not on file Gender Identity Not on file Sexual Orientation Not on file documented as of this encounter Miscellaneous Notes * Telephone Encounter - Rafia Blanco - 03/04/2013 12:05 PM CDT Please call patient at [phone] concerning documented in this encounter Plan of Treatment Not on file documented as of this encounter Visit Diagnoses Not on filedocumented in this encounter Care Teams Interchange Agent Relationship Specialty Start Date End Date Frw, None PCP - General 01/12/04 04/19/17 Sanjay Georges MD XXX RETIRED XXX [address] [place] [address] PCP - Orthopaedics 01/12/04 Ana Griffin DPM [facility] [place] [address] [place] [address] PCP - Podiatry 01/12/04 Solis Michaels OD [facility] [place] [address] [place] [address] PCP - Ophthalmology 10/08/08 Irina Pham NP [address] [address] PCP - General 09/07/22 documented as of this encounter
--- OUTSIDE RECORDS SUMMARY | 2024-03-04 13:45 | XMS_ITS | Encounter Summary ---
Author Organization [place] Address [address] [place] [address]. [place] [address] Care Team Providers Care High School Coordinator Name Role Phone Frw, None Primary Care Provider Sanjay Alvarado MD Unavailable Unavailable Ana Griffin DPM Unavailable [phone] Encounter Details Date Type Department Care Team (Late st Contact Info) Description 09/23/2008 9:30 AM [facility] in [facility] [address] [place] [id number] Yulissa Finn NP [address] [place] [address] Social History Tobacco Use Types Packs/Day Years [...] on filedocumented in this encounter Care Teams High School Coordinator Relationship Specialty Start Date End Date Frw, Sejal PCP - General 01/12/04 04/19/17 Sanjay Georges MD XXX RETIRED XXX [address] [place] [address] PCP - Orthopaedics 01/12/04 Ana Griffin DPM [facility] [place] [address] [facility] [address] [place] [address] PCP - Podiatry 01/12/04 documented as of this encounter
--- OUTSIDE RECORDS SUMMARY | 2024-03-04 13:45 | XMS_ITS | Encounter Summary ---
Author Organization [place] Address [address] [place] [address]. [place] [address] Care Team Providers Care Dial Buffer Name Role Phone Frw, None Primary Care Provider UnavailSanjay Stephenson MD Unavailable Unavailable Ana Griffin DPM Unavailable [phone] Solis Michaels OD Unavailable [phone] Encounter Details Date Type Department Care Team (Late st Contact Info) Description 01/26/2011 4:33 PM CDT [facility] in [facility] [address] [place] [address] Everardo Valle MD [facility] [address] [place], [place] [phone] Social History Tobacco Use Types Packs/Day Years [...] on filedocumented in this encounter Care Teams Dial Buffer Relationship Specialty Start Date End Date Frw, Sejal PCP - General 01/12/04 04/19/17 Sanjay Georges MD XXX RETIRED XXX [address] [place] [address] PCP - Orthopaedics 01/12/04 Ana Griffin DPM [facility] [place] [address] [place] [address] PCP - Podiatry 01/12/04 Solis Michaels OD [facility] [place] [address] [facility] [address] [place] [address] PCP - Ophthalmology 10/08/08 documented as of this encounter
--- OUTSIDE RECORDS SUMMARY | 2024-03-04 13:45 | XMS_ITS | Encounter Summary ---
Author Organization [place] Address [address] [place] [address]. 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 [address] [place] [address] Yulissa Finn NP [facility] [address] [place] [address] [address] [place], [place] [phone] MyChart Communication Social History Tobacco Use Types Packs/Day Years [...] on filedocumented in this encounter Care Teams Force Adjustment Supervisor Relationship Specialty Start Date End Date Kp, Sejal PCP - General 01/12/04 04/19/17 Sanjay Georges MD XXX RETIRED XXX [address] [place] [address] PCP - Orthopaedics 01/12/04 Ana Griffin DPM [facility] [place] [address] [place] [address] PCP - Podiatry 01/12/04 Solis Michaels OD [facility] [place] [address] [place] [address] PCP - Ophthalmology 10/08/08 Irina Pham NP [address] [address] PCP - General 09/07/22 documented as of this encounter
--- OUTSIDE RECORDS SUMMARY | 2024-03-04 13:45 | XMS_ITS | Encounter Summary ---
Author Organization [place] Address [address] [place] [address]. [place] [address] Care Team Providers Care Venetian Blind Cleaner And Repairer Name Role Phone Frw, None Primary Care Provider Unavailleia e Sanjay Georges MD Unavailable Unavailable Ana Griffin DPM Unavailable [phone] Solis Michaels OD Unavailable [phone] Irina Phma NP Primary Care Provider Encounter Details Date Type Department Care Team (Late st Contact Info) Description 12/11/2006 MyC Medical Advice [facility] in [place] SUPERVISOR CORDUROY CUTTING [address] [place] [address] Yulissa Finn NP [facility] [address] [facility] [address] [place], [place] [address] Social History Tobacco Use Types Packs/Day Years [...] on filedocumented in this encounter Care Teams Venetian Blind Cleaner And Repairer Relationship Specialty Start Date End Date Frw, Sejal PCP - General 01/12/04 04/19/17 Sanjay Georges MD XXX RETIRED XXX [address] [place] [address] PCP - Orthopaedics 01/12/04 Ana Griffin DPM [facility] [place] [address] [place] [address] PCP - Podiatry 01/12/04 Solis Michaels OD [facility] [place] [address] [facility] [address] [place] [address] PCP - Ophthalmology 10/08/08 Irina Pham NP [address] [address] PCP - General 09/07/22 documented as of this encounter
--- OUTSIDE RECORDS SUMMARY | 2024-03-04 13:45 | XMS_ITS | Clinical Summary ---
Author Organization [facility] Address [address] [place] [address]. [place] [address] Care Team Providers Care Needle Leader Name Role Phone Sanjay Georges MD Unavailable Unavailable Ana Griffin DPM Unavailable [phone] Solis Michaels OD Unavailable [phone] Irina Pham NP Primary Care Provider [phone] Allergies Active Allergy Reactions Criticality Noted Date Comments Cefdinir Rash Low 09/06/2022 Cefuroxime Axetil Hives 07/15/2001 ceftin- hives Medications Medication Sig Dispensed Refills Start Date End Date Status CALCIUM 500-125 MG-IU OR TABS 2 tab qd 0 05/26/2002 Active ASPIRIN 81 MG OR TABS Take 81 mg by mouth daily Active FISH OIL 1200 MG OR CAPS 1 tab a day Active Bhcllfv-Rxmpbcfnw-Savw 333-133-5 MG TABS per tablet Take 1 tablet by mouth daily Active vitamin D3 (CHOLECALCIFEROL) 50 mcg (2000 units) tablet Take 1 tablet by mouth 2 times daily Active levothyroxine (SYNTHROID/LEVOTHROID) 150 MCG tablet Take 150 mcg by mouth daily Active lisinopril (ZESTRIL) 2.5 MG tablet Take 2.5 mg by mouth daily Active red yeast rice 600 MG CAPS Take 600 mg by mouth 2 times daily Active oxyCODONE (ROXICODONE) 5 MG tabletIndications:EIN (endometrial intraepithelial neoplasia) Take 1 tablet (5 mg) by mouth every 6 hours as needed for pain 12 tablet 09/07/2022 Active SENNA-docusate sodium (SENNA S) 8.6-50 MG tabletIndications:EIN (endometrial intraepithelial neoplasia) Take 1-2 tablets by mouth 2 times daily Take while taking oxycodone 20 tablet 09/07/2022 Active Active Problems Problem Noted Date Diagnosed Date EIN (endometrial intraepithelial neoplasia) 08/20 Primary hypertension 08/31/2022 Peripheral vascular disease (H24) 08/31/2022 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 Provider to review Closed dislocation of ankle 11/09/2001 Immunizations Name Administration Dates Next Due HepB 05/11/1992,11/19/1991,10/19/1991 MMR 10/13/1990 TD,PF 7+ (Tenivac) 03/11/1999 TDAP Vaccine (Adacel) 09/23/2008 Family History Medical History Relation Comments Cancer Father prostate Cardiovascular Father CAD severe Genitourinary Problems Father turps x4 Hypertension Father Lipids Father Breast Cancer Mother Hypertension Mother Osteoporosis Mother Thyroid Disease Mother Cerebrovascular Disease Paternal Grandmother Relation Status Comments Father (Age 87) Maternal Grandfather tractor acc ident Maternal Grandmother old age Mother Alive Paternal Grandfather old age Paternal Grandmother (Age 54) stroke Social History Tobacco Use Types Packs/Day Years Used Date Smoking Tobacco: Never Smokeless Tobacco: Never Tobacco Cessation:Counseling Given: Not Answered Alcohol Use Standard Drinks/Week Comments Yes 0 (1 standard drink = 0.6 oz pur e alcohol) rare Adolescent Education Answer Date Record ed Getting School Help Needed Not on file 05/21 Sex and Gender Information Value Date Recorded Sex Assigned at Not on file Gender Identity Not on file Sexual Orientation Not on file Last Filed Vital Signs Vital Sign Reading Time Taken Comments Blood Pressure 161/91 09/07/2022 5:20 PM AUTOMATIC LEHR OPERATOR Pulse 80 09/07/2022 5:20 PM AUTOMATIC LEHR OPERATOR Temperature 36.7 ??C (98 ??F) 09/07/2022 5:00 PM AUTOMATIC LEHR OPERATOR Respiratory Rate 16 09/07/2022 5:25 PM AUTOMATIC LEHR OPERATOR Oxygen Saturation 93% 09/07/2022 5:25 PM AUTOMATIC LEHR OPERATOR Inhaled Oxygen Concentration - - Weight 99.2 kg (218 lb 9.6 oz) 09/07/2022 10:22 AM AUTOMATIC LEHR OPERATOR Height 157.5 cm (5' 2) 09/07/2022 10:22 AM AUTOMATIC LEHR OPERATOR Body Mass Index 39.98 09/07/2022 10:22 AM AUTOMATIC LEHR OPERATOR Plan of Treatment Health Maintenance Due Date Last Done Comments ADVANCE CARE PLANNING 1955 ANNUAL REVIEW OF HM ORDERS 1955 CT COLONOGRAPHY 1955 FIT 1955 FLEX SIG 1955 sDNA (Cologuard) 1955 HEPATITIS C SCREENING 1972 ZOSTER IMMUNIZATION (1 of 2) 2004 TSH W/FREE T4 REFLEX 01/04/2012 01/03/2011, 09/23/2008, 07/11/2005 RSV VACCINE ( & 60+) (1 - 1-dose 60+ series) 2014 LIPID 01/04/2016 01/03/2011, 11/2008, 12/11/2006, Additional history exists FALL RISK ASSESSMENT 2019 MEDICARE ANNUAL WELLNESS VISIT 2019 01/03/2011, 09/23/2008, 12/11/2006, Additional history exists Pneumococcal Vaccine: 65+ Years (1 of 1 - PCV) 2019 COLONOSCOPY 01/26/2021 01/26/2011 COLORECTAL CANCER SCREENING 01/26/2021 DEXA 12/20/2021 12/20/2006, 06/05/2002 DTAP/TDAP/TD IMMUNIZATION (3 - Td or Tdap) 06/27/2022 06/27/2012, 09/23/2008, 03/11/1999 COVID-19 Vaccine ( - 2022- season) 2023 07/06/2022, 07/27/2021, 11/22/2020, Additional history exists PHQ-2 (once per calendar year) 2023 INFLUENZA VACCINE (Season Ended) 2024 MAMMO SCREENING 07/05/2024 07/05/2022, 01/18, 01/03/2011, Additional history exists GLUCOSE 08/31/2025 08/31/2022, 12/18, 09/23/2008, Additional history exists HPV IMMUNIZATION Aged Out No longer e ligible based on patient's age to complete this topic IPV IMMUNIZATION Aged Out No longer e ligible based on patient's age to complete this topic MENINGITIS IMMUNIZATION Aged Out No l onger eligible based on patient's age to complete this topic RSV MONOCLONAL ANTIBODY Aged Out No l onger eligible based on patient's age to complete this topic Procedures Procedure Name Priority Date/Time Associated Diagnosis Comments GLUCOSE (EXTERNAL RESULT) Routine 08/31/2022 2:10 PM AUTOMATIC LEHR OPERATOR MA SCREENING DIGITAL BILATERAL Routine 01/29/2013 11:59 AM CDT Other screening mammogram COLONOSCOPY Routine 01/26/2011 7:58 AM CDT Special screening for malignant neoplasms, colon TSH WITH FREE T4 REFLEX Routine 01/03/2011 9:40 AM CDT Screening for thyroid disorder LIPID REFLEX TO DIRECT LDL PANEL Routine 01/03/2011 9:40 AM CDT Lipid screening HC DEXA BONE DENSITY, >=1 SITE, AXIAL SKELETON Routine 12/20/2006 9:14 AM CDT Disorder of bone and cartilage, unspecified from Last 3 Months or Most Recently Relevant to Health Maintenance Results * Glucose (External Result) (08/31/2022 2:10 PM AUTOMATIC LEHR OPERATOR) Glucose (External) 90 60 - 115 mg/dL [facility] Blood 08/31/2022 2:10 PM AUTOMATIC LEHR OPERATOR Narrative [facility] - 08/31/2022 2:10 PM AUTOMATIC LEHR OPERATOR LAB RESULT [facility] Provider Outside LAB - HIM EXTERNAL R ESULT [facility] [address] [place] [address], [facility] [phone] * MA Screening Digital Bilateral (01/29/2013 11:59 AM CDT) Anatomical Region Laterality Modality Breast Bilateral Other 01/29/2013 11:5 9 AM CDT Impressions 01/29/2013 1:17 PM CDT IMPRESSION: BIRADS 1, NEGATIVE. RECOMMENDATION: Recommend annual screening mammography. Exam results letter mailed to patient. YADIRA ROSA MD Narrative 01/29/2013 1:17 PM CDT SCREENING MAMMOGRAM, BILATERAL, DIGITAL w/CAD - 01/29/2013 11:59 AM BREAST SYMPTOMS: No current breast complaints. COMPARISON: ??Prior mammograms in 2010, 2008, and 2004. PARENCHYMAL PATTERN: Scattered fibroglandular densities. COMMENTS: No findings of suspicion for malignancy. Procedure Note Yadira Rosa MD - 01/29/2013 SCREENING MAMMOGRAM, BILATERAL, DIGITAL w/CAD - 01/29/2013 11:59 AM BREAST SYMPTOMS: No current breast complaints. COMPARISON: Prior mammograms in 2010, 2008, and 2004. PARENCHYMAL PATTERN: Scattered fibroglandular densities. COMMENTS: No findings of suspicion for malignancy. IMPRESSION IMPRESSION: BIRADS 1, NEGATIVE. RECOMMENDATION: Recommend annual screening mammography. Exam results letter mailed to patient. YADIRA ROSA MD Yulissa Finn LINE PREP COOK IMG MAMMOGRAPHY DIAE GURMEET * COLONOSCOPY [EXAMCOL] (01/26/2011 7:58 AM CDT) COLONOSCOPY Endoscopy Department Patient Name: Colleen Tolentino ?Procedure Date: 01/26/2011 7:58:50 AM ? Date of : 1955 ? Admit Type: Outpatient ?Age: 55 ? Gender: Female ?Attending MD: Everardo Uriostegui MD ? Procedure: ?Colonoscopy Indications: ?Screening for colorectal malignant neoplasm Providers: ?Everardo Valle MD Referring MD: ? Yulissa Finn, LINE PREP COOK Medicines: ?Fentanyl IV 150 mcgs, Versed IV 6 mgs Complications: ?No immediate complications Procedure: ?Pre-Anesthesia Assessment: ?- Prior to the procedure, a History and Physical ?was performed, and patient medications and ?allergies were reviewed. The patient is competent. ?The risks and benefits of the procedure and the ?sedation options and risks were discussed with the ?patient. All questions were answered and informed ?consent was obtained. Patient identification and ?proposed procedure were verified by the physician ?and the nurse in the procedure room. Mental Status ?Examination: alert and oriented. Airway ?Examination: Mallampati Class I (tonsillar pillars ?visualized). Respiratory Examination: clear to ?auscultation. CV Examination: normal. Prophylactic ?Antibiotics: The patient does not require ?prophylactic antibiotics. Prior Anticoagulants: The ?patient has taken no previous anticoagulant or ?antiplatelet agents. ASA Grade Assessment: I - A ?normal, healthy patient. After reviewing the risks ?and benefits, the patient was deemed in ?satisfactory condition to undergo the procedure. ?The anesthesia plan was to use moderate sedation / ?analgesia (conscious sedation). Immediately prior ?to administration of medications, the patient was ?re-assessed for adequacy to receive sedatives. The ?heart rate, respiratory rate, oxygen saturations, ?blood pressure, adequacy of pulmonary ventilation, ?and response to care were monitored throughout the ?procedure. The physical status of the patient was ?re-assessed after the procedure. ?The patient's current medications and allergies ?were reviewed. The Colonoscope [id number] was ?introduced through the anus and advanced to the ?terminal ileum. The colonoscopy was performed ?without difficulty. The patient tolerated the ?procedure well. The quality of the bowel ?preparation was excellent. ? Findings: ? The entire examined colon appeared normal. ? Impression: ? - The entire examined colon is normal. Recommendation: ? - Repeat colonoscopy in 10 years for screening ?purposes. ? ___ Everardo aVlle MD Signed Date: 01/26/2011 8:39:11 AM Number of Addenda: 0 This document was electronically signed. Note Initiated On: 01/26/2011 7:58:50 AM Scope Withdrawal Time: 0 hours 0 minutes 0 seconds Total Procedure Duration: 0 hours 0 minutes 0 seconds [facility] [place] [facility] 01/26/2011 7:58 AM CDT Yulissa Finn NP PROCEDURES Performing Organization Address [facility] Co de Phone Number [facility] [place], [place] [address] * TSH with free T4 reflex (01/03/2011 9:40 AM CDT) TSH 1.35 0.4 - 5.0 mU/L [facility] Blood specimen (specimen) 01/03/2011 9:40 AM CDT 01/03/2011 9:41 AM CDT Yulissa Finn NP LAB - BLOOD ORDERABL ES Performing Organization Address [facility] de Phone Number [facility] [place] [address] * (ABNORMAL) Lipid panel reflex to direct LDL (01/03/2011 9:40 AM CDT) Cholesterol 235(H) 0 - 200 mg/dL [facility] Comment: LDL Cholesterol is the primary guide to therapy. The NCEP recommends further evaluation of: patients with cholesterol greater than 200 mg/dL if additional risk factors are present, cholesterol greater than 240 mg/dL, triglycerides greater than 150 mg/dL, or HDL less than 40 mg/dL. Triglycerides 72 0 - 150 mg/dL [facility] [place] [facility] Comment:Fasting specimen HDL Cholesterol 60 50 - 110 mg/dL [facility] LDL Cholesterol Calculated 160(H) 0 - 129 mg/dL [facility] Comment: LDL Cholesterol is the primary guide to therapy: LDL-cholesterol goal in high risk patients is <100 mg/dL and in very high risk patients is <70 mg/dL. VLDL-Cholesterol 14 0 - 30 mg/dL [facility] Cholesterol/HDL Ratio 3.9 0.0 - 5.0 [facility] Blood specimen (specimen) 01/03/2011 9:40 AM CDT 01/03/2011 9:41 AM CDT Yulissa Finn NP LAB - BLOOD ORDERABL ES [facility] [place] [facility] [place] [address] * DEXA,BONE DENSITY,AXIAL SKELETON (12/20/2006 9:14 AM CDT) Anatomical Region Laterality Modality Other 12/20/2006 9:14 AM CDT Impressions 12/20/2006 3:29 PM CDT BONE MINERAL DENSITOMETRY: ? HISTORY: ?? Menopause occurred at age 42. She did take estrogen. She eats about three servings of dairy products per day. She supplements her diet with a1000 milligrams of calcium each day. ? The L1-L4 T scores are -1.7, -1.3, -1.2, and -2.7. The average is -1.8 which is osteopenic. Those scores in 2001 were -1.1, -1.5, -1.3, and -2.5. ? The left and right femoral neck T scores are -1.8 and -1.9. The left had been -1.3. The current total left and right hip area T scores are both -1.5. The left had been -1.1. All of the hip T scores are osteopenic. ?? Everardo Jovel M.D. Yulissa Finn NP [facility] I[facility] from Last 3 Months or Most Recently Relevant to Health Maintenance Care Teams Needle Leader Relationship Specialty Start Date End Date Sanjay Georges MD XXX RETIRED XXX [address] [place] [address] PCP - Orthopaedics 01/12/04 Ana Griffin DPM [facility] [place] [address] [place] [address] PCP - Podiatry 01/12/04 Solis Michaels OD [facility] [place] [address] [place] [address] PCP - Ophthalmology 10/08/08 Irina Pham NP [address] [address] PCP - General 09/07/22
--- OUTSIDE RECORDS SUMMARY | 2024-03-04 13:45 | XMS_ITS | Referral Summary ---
Author Organization [facility] Address [address] [place] [address]. [place] [address] Care Team Providers Care Lump Room Supervisor Name Role Phone Sanjay Georges MD Unavailable Unavailable Ana Griffin DPM Unavailable Solis Michaels OD Unavailable [phone] Irina Pham NP Primary Care Provider Allergies Active Allergy Reactions Criticality Noted Date Comments Cefdinir Rash Low 09/06/2022 Cefuroxime Axetil Hives 07/15/2001 ceftin- hives Medications Medication Sig Dispensed Refills Start Date End Date Status CALCIUM 500-125 MG-IU OR TABS 2 tab qd 0 05/26/2002 Active ASPIRIN 81 MG OR TABS Take 81 mg by mouth daily Active FISH OIL 1200 MG OR CAPS 1 tab a day Active Jvgvexb-Zveioaouf-Csgd 333-133-5 MG TABS per tablet Take 1 [...] 7+ (Tenivac) 03/11/1999 TDAP Vaccine (Adacel) 09/23/2008 Social History Tobacco Use Types Packs/Day Years [...] Comments Blood Pressure 161/91 09/07/2022 5:20 PM INVESTMENT COUNSELOR Pulse 80 09/07/2022 5:20 PM INVESTMENT COUNSELOR Temperature 36.7 ??C (98 ??F) 09/07/2022 5:00 PM INVESTMENT COUNSELOR Respiratory Rate 16 09/07/2022 5:25 PM INVESTMENT COUNSELOR Oxygen Saturation 93% 09/07/2022 5:25 PM INVESTMENT COUNSELOR Inhaled Oxygen Concentration - - Weight 99.2 kg (218 lb 9.6 oz) 09/07/2022 10:22 AM INVESTMENT COUNSELOR Height 157.5 cm (5' 2) 09/07/2022 10:22 AM INVESTMENT COUNSELOR Body Mass Index 39.98 09/07/2022 10:22 AM INVESTMENT COUNSELOR Plan of Treatment Not on file Procedures Procedure Name Priority Date/Time Associated Diagnosis Comments GLUCOSE (EXTERNAL RESULT) Routine 08/31/2022 2:10 PM INVESTMENT COUNSELOR MA SCREENING DIGITAL BILATERAL Routine 01/29/2013 11:59 [...] * Glucose (External Result) (08/31/2022 2:10 PM INVESTMENT COUNSELOR) Glucose (External) 90 60 - 115 mg/dL [facility] Blood 08/31/2022 2:10 PM INVESTMENT COUNSELOR Narrative [facility] - 08/31/2022 2:10 PM INVESTMENT COUNSELOR LAB RESULT [facility] Provider Outside LAB - HIM EXTERNAL R ESULT [facility] [address] [place] [address], [facility] [phone] * MA Screening Digital Bilateral (01/29/2013 11:59 [...] to patient. YADIRA ROSA MD Yulissa Finn [facility] IMG MAMMOGRAPHY [facility] * COLONOSCOPY [EXAMCOL] (01/26/2011 7:58 AM CDT) COLONOSCOPY Endoscopy Department Patient Name: Colleen Tolentino ?Procedure Date: 01/26/2011 7:58:50 AM ? Date of : 1955 ? Admit Type: Outpatient ?Age: 55 ? Gender: Female ?Attending MD: Everardo Uriostegui MD ? Procedure: ?Colonoscopy Indications: ?Screening for colorectal malignant neoplasm Providers: ?Everardo Valle MD Referring : ? Yulissa Finn NP Medicines: ?Fentanyl IV 150 mcgs, Versed IV [...] medications and allergies ?were reviewed. The Colonoscope [id number] was ?introduced through the anus and advanced [...] years for screening ?purposes. ? ___ Everardo Valle MD Signed Date: 01/26/2011 8:39:11 AM Number of Addenda: 0 This document was electronically signed. Note Initiated On: 01/26/2011 7:58:50 AM Scope Withdrawal Time: 0 hours 0 minutes 0 seconds Total Procedure Duration: 0 hours 0 minutes 0 seconds [facility] 01/26/2011 7:58 AM CDT Yulissa Finn NP PROCEDURES [facility] [place] [facility] [place] [id number] * TSH with free T4 reflex (01/03/2011 9:40 AM CDT) TSH 1.35 0.4 - 5.0 mU/L [facility] Blood specimen (specimen) 01/03/2011 9:40 AM CDT 01/03/2011 9:41 AM CDT Yulissa Finn NP LAB - BLOOD ORDERABL ES Performing Organization Address [facility] Co de Phone Number [facility] [place] [address] * (ABNORMAL) Lipid panel reflex to direct LDL (01/03/2011 9:40 AM CDT) Cholesterol 235(H) 0 - 200 mg/dL [facility] Comment: LDL Cholesterol is the primary guide to therapy. The NCEP recommends further evaluation of: patients with cholesterol greater than 200 mg/dL if additional risk factors are present, cholesterol greater than 240 mg/dL, triglycerides greater than 150 mg/dL, or HDL less than 40 mg/dL. Triglycerides 72 0 - 150 mg/dL [facility] [place] [facility] Comment:Fasting specimen HDL Cholesterol 60 50 - 110 mg/dL [facility] LDL Cholesterol Calculated 160(H) 0 - 129 mg/dL [facility] Comment: LDL Cholesterol is the primary guide to therapy: LDL-cholesterol goal in high risk patients is <100 mg/dL and in very high risk patients is <70 mg/dL. VLDL-Cholesterol 14 0 - 30 mg/dL [facility] [place] [facility] Cholesterol/HDL Ratio 3.9 0.0 - 5.0 [facility] Blood specimen (specimen) 01/03/2011 9:40 AM CDT 01/03/2011 9:41 AM CDT Yulissa Finn NP LAB - BLOOD ORDERABL ES Performing Organization Address [facility] Co de Phone Number [facility] [place] [address] * DEXA,BONE DENSITY,AXIAL SKELETON (12/20/2006 9:14 AM [...] Recently Relevant to Health Maintenance Care Teams Lump Room Supervisor Relationship Specialty Start Date End Date Sanjay Georges MD XXX RETIRED XXX [address] [facility] [place] [address] PCP - Orthopaedics 01/12/04 Ana Griffin DPM [facility] [address] [address] PCP - Podiatry 01/12/04 Solis Michaels OD [facility] [address] [address] PCP - Ophthalmology 10/08/08 Irina Pham NP [address] [address] PCP - General 09/07/22
--- OUTSIDE RECORDS SUMMARY | 2024-03-04 13:45 | XMS_ITS | Encounter Summary ---
Author Organization [facility] Address [address] [place] [address]. [place] [address] Care Team Providers Care Story Writer Name Role Phone Frw, None Primary Care Provider Sanjay Alvarado MD Unavailable Unavailable Ana Griffin DPM Unavailable [phone] Solis Michaels OD Unavailable [phone] Encounter Details Date Type Department Care Team (Late st Contact Info) Description 01/03/2011 9:15 AM CDT [facility] [address] [place] [address] Yulissa Finn NP [facility] [address] [place], [place] [id number] Social History Tobacco Use Types Packs/Day Years [...] on filedocumented in this encounter Care Teams Story Writer Relationship Specialty Start Date End Date Frw, Sejal PCP - General 01/12/04 04/19/17 Sanjay Georges MD XXX RETIRED XXX [address] [place] [address] PCP - Orthopaedics 01/12/04 Ana Griffin DPM [facility] [place] [address] [place] [address] PCP - Podiatry 01/12/04 Solis Michaels OD [facility] [place] [address] [facility] [address] [place] [address] PCP - Ophthalmology 10/08/08 documented as of this encounter
== END 2024-03-04 13:40 | disposition home or self-care (01) ==
PROVIDERS: PCP Nurse Practitioner Family; Visit Provider Nurse Practitioner Family
DX: I10 Essential (primary) hypertension (principal); E03.9 Hypothyroidism, unspecified; E78.5 Hyperlipidemia, unspecified
CPT/HCPCS: 80048; 84443

== ENCOUNTER 2024-12-23 10:54 | Outpatient (CLI) | payer BC, SELFPAY | END 2024-12-23 10:55 | disposition home or self-care (01) | PROVIDERS: PCP Nurse Practitioner Family; Visit Provider Nurse Practitioner Family | DX: I10 Essential (primary) hypertension (principal); E83.51 Hypocalcemia; E78.5 Hyperlipidemia, unspecified; E03.9 Hypothyroidism, unspecified; E66.9 Obesity, unspecified; Z13.0 Encounter for screening for diseases of the blood and blood-forming organs and certain disorders involving the immune mechanism; Z13.21 Encounter for screening for nutritional disorder | CPT/HCPCS: 80053; 80061; 82306; 84443; 85025 ==